=== PATIENT | male | born 1955 | race Caucasian/White ===

== ENCOUNTER 2018-02-13 14:29 | Inpatient (IN) | END 2018-02-17 13:16 | disposition left against medical advice (07) | DRG 871 ==

== ENCOUNTER 2018-02-17 23:08 | Inpatient (IN) | END 2018-03-20 21:45 | DRG 602 ==

== ENCOUNTER 2018-03-30 19:11 | Emergency (ER) | END 2018-03-30 23:19 | disposition home or self-care (01) ==

== ENCOUNTER 2018-04-09 09:47 | Inpatient (IN) | END 2018-04-17 19:00 | disposition left against medical advice (07) | DRG 432 ==

== ENCOUNTER 2018-04-24 14:53 | Inpatient (IN) | END 2018-05-03 11:40 | disposition left against medical advice (07) | DRG 871 ==

== ENCOUNTER → 2018-05-10 | Emergency (ER) | END | disposition home or self-care (01) ==

== ENCOUNTER 2018-05-12 04:05 | Inpatient (IN) | END 2018-05-27 17:40 | disposition left against medical advice (07) | DRG 853 ==

== ENCOUNTER 2018-06-02 17:20 | Inpatient (IN) | END 2018-06-26 21:55 | disposition home health service (06) | DRG 853 ==

== ENCOUNTER 2018-07-04 08:11 | Inpatient (IN) | END 2018-07-07 13:50 | disposition left against medical advice (07) | DRG 871 ==

== ENCOUNTER 2018-07-08 11:09 | Inpatient (IN) | END 2018-07-31 19:20 | DRG 871 ==

== ENCOUNTER 2018-08-16 06:04 | Emergency (ER) | END 2018-08-16 11:14 | disposition home or self-care (01) ==

== ENCOUNTER 2018-09-18 17:06 | Inpatient (IN) | END 2018-09-26 15:15 | DRG 629 ==

== ENCOUNTER 2019-01-05 14:17 | Inpatient (IN) | payer BC ==
[~2019-01-05] VITALS: Ht 177.8 cm; Wt 101.2 kg
[~2019-01-05 14:17] MED LIST: ADV25050 INHALATION; ALBU18HF INHALATION; ALLO100T64 PO; ATRO INHALATION; DOCU-159 PO; FER325 PO; FOLI-49 PO; FURO40TA4 PO; GABA100C14 PO; LEVO100T8 PO; METO-336 PO; OXYC10TA45 PO; PANT40TA3 PO; RIFA550T4 PO; SODI650T PO; SPIR50TA PO; TAMS-14 PO; THIA100T56 PO
--- NOTE | 2019-01-05 14:29 | ERD ---
ER Documentation Chief Complaint Chief Complaint sob x 3 days h/o chf HPI The patient is a 63-year-old male, presenting to the ER because of acute dyspnea for the last 5 days, worse today, complains of bilateral leg edema, orthopnea, PND. He had similar symptoms previously, denies fever, chills, neck pain, chest pain, abdominal pain, vomiting, dysuria. He smokes and drinks Past medical history: History of CHF, gout, hypertension, hypothyroidism, BPH, anemia, CAD, cirrhosis, COPD, anxiety Past surgical history: Bleeding ulcer ROS All systems reviewed and are negative except as per history of present illness. Medications Home Meds Active Scripts Docusate Sodium* (Docusate Sodium*) 100 Mg Capsule, 200 MG PO QHS, #60 CAP Prov:MILLICENT GOVEA 06/26/18 Reported Medications Allopurinol* (Zyloprim*) 100 Mg Tablet, 100 MG PO DAILY, TAB 09/18/18 Rifaximin* (Xifaxan*) 550 Mg Tablet, 550 MG PO BID, TAB 09/18/18 Thiamine* (Vitamin B-1*) 100 Mg Tablet, 100 MG PO DAILY, TAB 09/18/18 Metoprolol Succinate* (Toprol XL*) 100 Mg Tab.sr.24h, 100 MG PO DAILY, #30 TAB HOLD FOR SBP<110 OR HR<60 09/18/18 Sodium Bicarbonate* (Sodium Bicarbonate*) 650 Mg Tablet, 650 MG PO TID, TAB 09/18/18 Albuterol Sulfate* (Ventolin HFA*) 18 Gm Hfa.aer.ad, 2 PUFF INHALATION Q4H, #1 INHALER 09/18/18 Pantoprazole* (Protonix*) 40 Mg Tablet.dr, 40 MG PO DAILY, TAB 09/18/18 Oxycodone Hcl* (Oxycontin*) 10 Mg Tab.sr.12h, 10 MG PO Q6H, TAB 09/18/18 Gabapentin* (Gabapentin*) 100 Mg Capsule, 100 MG PO TID, #90 CAP 09/18/18 Levothyroxine Sodium* (Levothyroxine Sodium*) 100 Mcg Tablet, 200 MCG PO BEFORE BREAKFAST, #30 TAB 09/18/18 Ipratropium [place]* (Atrovent HFA*) 12.9 Gm Aer.w.adap, 1 VIAL INHALATION Q6H PRN for WHEEZING AND SOB, #1 INHALER 09/18/18 Furosemide* (Furosemide*) 40 Mg Tablet, 40 MG PO DAILY, TAB 09/18/18 Folic Acid* (Folic Acid*) 1 Mg Tablet, 1 MG PO DAILY, TAB 09/18/18 Tamsulosin Hcl* (Flomax*) 0.4 Mg Cap.er.24h, 0.4 MG PO DAILY, CAP 09/18/18 Ferrous Sulfate* (Ferrous Sulfate*) 325 Mg Tabec, 325 MG PO DAILY, TAB 09/18/18 Spironolactone* (Aldactone*) 50 Mg Tablet, 50 MG PO DAILY, #30 TAB HOLD FOR SBP<110 09/18/18 Salmeterol Xinaf/Fluticasone* (Advair*) 250-50 Diskus Inhaler, 1 INH INHALATION BID, #1 INHALER 09/18/18 Allergies Allergies: Coded Allergies: Penicillins (Unverified Allergy, Unknown, 01/05/19) PMhx/Soc Anesthesia Reaction: No Hx Neurological Disorder: No Hx Cardiac Disorders: No (HTN, CHF) Hx Psychiatric Problems: No Hx Miscellaneous Medical Probl: Yes (esld,ckd,esrd) Hx Alcohol Use: Yes Hx Substance Use: No Hx Tobacco Use: Yes Physical Exam Vitals Vital Signs Date Temp Pulse Resp B/P (MAP) Pulse Ox O2 O2 Flow FiO2 Time Delivery Rate 01/05/19 97.7 83 16 129/66 95 Nasal 3.0 18:50 (87) Cannula 01/05/19 83 17 126/60 95 Room Air 3.0 18:34 (82) Nasal Cannula 01/05/19 155 21 95 Nasal 2.0 14:59 Cannula 01/05/19 Nasal 2 14:25 Cannula 01/05/19 98.2 79 20 112/59 91 14:24 (76) Physical Exam Const: No acute distress. Head: Atraumatic. Eyes: Normal Conjunctiva. ENT: Normal External Ears, Nose and Mouth. Neck: Full range of motion. No meningismus. Resp: Tachypneic, bilateral expiratory wheezes, bibasilar crackle Cardio: Regular rate and rhythm. Abd: Soft, mild ascites, normal bowel sounds, non tender. Skin: No petechiae or rashes. Back: No midline or flank tenderness. Ext: Bilateral leg edema, no calf tenderness Neur: Awake and alert. No focal deficit Psych: Normal Mood and Affect. Result Diagram: 01/05/19 1500 01/05/19 1500 Results 24 hrs Laboratory Tests Test 01/05/19 15:00 White Blood Count 17.0 10^3/ul Red Blood Count 3.20 10^6/ul Hemoglobin 6.5 g/dl Hematocrit 23.3 % Mean Corpuscular Volume 72.8 fl Mean Corpuscular Hemoglobin 20.3 pg Mean Corpuscular Hemoglobin Concent 27.9 g/dl Red Cell Distribution Width 22.9 % Platelet Count 173 10^3/UL Mean Platelet Volume fl Immature Granulocytes % 1.900 % Neutrophils % % Segmented Neutrophils % (Manual) 77 % Band Neutrophils % (Manual) 4 % Lymphocytes % % Lymphocytes % (Manual) 7 % Monocytes % % Monocytes % (Manual) 9 % Eosinophils % % Eosinophils % (Manual) 1 % Basophils % % Basophils % (Manual) 2 % Nucleated Red Blood Cells % 0.4 /100WBC Immature Granulocytes # 0.330 10^3/ul Neutrophils # 10^3/ul Neutrophils # (Manual) 13.2 10^3/ul Band Neutrophils # 0.6 10^3/ul Lymphocytes (Manual) 1.1 10^3/ul Lymphocytes # 10^3/ul Monocytes # 10^3/ul Monocytes # (Manual) 1.5 10^3/ul Eosinophils # 10^3/ul Basophils # 10^3/ul Basophils # (Manual) 0.3 10^3/ul Nucleated Red Blood Cells # 10^3/ul Pathologist Review (Hematology) YES Platelet Estimate NORMAL Polychromasia 2+ Hypochromasia 2+ Poikilocytosis 2+ Anisocytosis 2+ Microcytosis 1+ Tear Drop Cells 1+ Ovalocytes 1+ Prothrombin Time 14.2 Sec Prothrombin Time Ratio 1.1 INR International Normalized Ratio 1.09 Activated Partial Thromboplast Time 36.0 Sec Sodium Level 125 mmol/L Potassium Level 4.7 mmol/L Chloride Level 95 mmol/L Carbon Dioxide Level 14 mmol/L Anion Gap 16 Blood Urea Nitrogen 54 mg/dl Creatinine 2.90 mg/dl Est Glomerular Filtrat Rate mL/min 22 mL/min Glucose Level 96 mg/dl Calcium Level 8.5 mg/dl Total Bilirubin 0.3 mg/dl Direct Bilirubin 0.00 mg/dl Indirect Bilirubin 0.3 mg/dl Aspartate Amino Transf (AST/SGOT) 29 IU/L Alanine Aminotransferase (ALT/SGPT) 15 IU/L Alkaline Phosphatase 110 IU/L Troponin I 0.015 ng/ml B-Type Natriuretic Peptide 9920 PG/ML Total Protein 7.8 g/dl Albumin 3.9 g/dl Globulin 3.90 g/dl Albumin/Globulin Ratio 1.00 Lipase 202 U/L Current Medications Medications Dose Sig/Trevor Start Time Status Last (Trade) Ordered Route PRN Stop Time Admin Dose Reason Admin 5 mg ONCE STAT 01/05/19 DC 01/05/19 Levalbuterol INH 14:47 01/05/19 14:59 (Xopenex 14:50 Neb) Ipratropium 1 mg ONCE STAT 01/05/19 DC 01/05/19 [place] INH 14:47 01/05/19 14:59 (Atrovent 14:50 0.02% (Neb)) 125 mg ONCE STAT 01/05/19 DC 01/05/19 Methylprednis IV 14:47 01/05/19 15:13 olone Sodium 14:50 Succinate (Solu-Medrol) Furosemide 40 mg ONCE ONCE 01/05/19 DC (Lasix) IV 17:00 01/05/19 17:01 Azithromycin 250 ml @ ONCE ONCE 01/05/19 DC 250 mls/hr IVPB 18:00 01/05/19 18:59 Aztreonam 50 ml @ ONCE ONCE 01/05/19 DC 100 mls/hr IVPB 18:00 01/05/19 18:29 Procedures/MDM [place] [id number] Radiology Main Line: [phone] DIAGNOSTIC IMAGING REPORT Patient: ELODIA MASCORRO : 1955 Age: 63 Sex: M MR #: [id number] DOS: 01/05/19 1447 Ordering MD: TONY MARQUEZ MD Location: E/R Room/Bed: PROCEDURE: XR Chest. CLINICAL INDICATION: Shortness of breath . TECHNIQUE: Single frontal chest x-ray. COMPARISON: DR CHEST 09/18/2018; DR CHEST 07/29/2018; CR CHEST 08/19/2015; CR CHEST 01/31/2015 FINDINGS: This cardiomegaly with increase hilar vascular congestion appears increased devyn hilar interstitial edema and a small right pleural effusion consistent with congestive heart failure. .. Degenerative disk changes of the spine are present. . The osseous structures are intact. IMPRESSION: Cardiomegaly with increase hilar vascular and interstitial congestion and small right pleural effusion.. RPTAT: [facility] .Luiz Messina MD, MD Date Time Electronically viewed and signed by .Luiz Messina MD, MD on 01/05/2019 15:37 .L/ CC: TONY MARQUEZ MD [phone] EKG: Read by emergency physician Rate/Rhythm: Normal Sinus Rhythm 84 beats per min QRS, ST, T-waves: No ST elevation, no T wave inversion, PVC Impression: Normal EKG MEDICAL MAKING DECISION: The patient is a 63-year-old male, presenting with acute CHF exacerbation, acute COPD exacerbation, suspected acute GI bleed. Treated with Xopenex 5 mg and Atrovent 1 mg continuous nebe over 1 hour and Solu-Medrol 125 mg IV and Rocephin IV and aztreonam IV for acute COPD exacerbation, 2unit of packed red blood cell for acute anemia, concerning for acute GI bleed, I have ordered for Lasix 40 mg IV after blood transfusion The differential diagnoses for acute dyspnea considered include but are not limited to asthma, COPD, pneumonia, pulmonary embolus, pleural effusion, congestive heart failure. The differential diagnoses for acute GI bleed considered include but are not limited to gastritis, peptic ulcer disease, esophageal varices, Eleonora-Patino tear, carcinoma, polyp, hemorrhoid, fissure, diverticulosis, angiodysplasia. Departure Diagnosis: Primary Impression: CHF (congestive heart failure) Additional Impressions: COPD exacerbation GI bleed Hyponatremia Condition: Stable Comments I discussed the findings with the patient. I discussed the patient with his MD Dr Foss at 5:10 pm who was made aware of the lab, the treatment, the patient condition. The patient is admitted to Tel Disclaimer: Inadvertent spelling and grammatical errors are likely due to EHR/dictation software use and do not reflect on the overall quality of patient care. Also, please note that the electronic time recorded on this note does not necessarily reflect the actual time of the patient encounter. TONY MARQUEZ MD Jan 05, 2019 14:29
[2019-01-05] MEDS ORDERED: METHYLPREDNISOLONE 125 MG INJ IV STA (14:47)
[2019-01-05] MEDS ORDERED: IPRATROPIUM (NEB) 0.5 MG/2.5 ML AMP INH STA (14:47)
[2019-01-05] MEDS ORDERED: LEVALBUTEROL (NEB) 1.25 MG/0.5 ML AMP INH STA (14:47)
[2019-01-05] MEDS ORDERED: FUROSEMIDE 40 MG INJ IV ONE (17:00)
[2019-01-05] MEDS ORDERED: AZITHROMYCIN 500MG/NS (PMX) 250 ML IVPB ONE (18:00)
[2019-01-05] MEDS ORDERED: AZTREONAM 1 GM/NS (PMX) 50 ML IVPB ONE (18:00)
[2019-01-05] MEDS ORDERED: LORAZEPAM 2 MG INJ IV ONE (22:30)
[2019-01-05 23:00] VITALS: Ht 177.8 cm; Wt 101.2 kg
[2019-01-05 23:03] VITALS: PULSE 90
[2019-01-06] VITALS (13 sets, daily range): BP systolic 121–149; BP diastolic 62–70; PULSE 84–98; RESP 19–23
[2019-01-06] MEDS ORDERED: ONDANSETRON 4 MG INJ IV PRN (00:30)
[2019-01-06] MEDS: PANTOPRAZOLE 40 MG INJ IV SCH ×2 (06:24→18:15)
[2019-01-06] MEDS: FUROSEMIDE 20 MG INJ IV SCH ×2 (06:24→18:15)
--- NOTE | 2019-01-06 11:51 | HP ---
Date/Time of Note Date/Time of Note DATE: 01/06/19 TIME: 11:27 Assessment/Plan VTE Prophylaxis Risk score (from [facility])>0 risk: 4 SCD applied (from [facility]): Yes Pharmacological prophylaxis: NA/contraindicated Pharm contraindication: liver dx, thrombocytopenia Lines/Catheters IV [facility] Type (from [facility] [place] Urinary Cath still in place: No Assessment/Plan Assessment/Plan -Acute anemia, status post blood transfusion. -Possible GI bleed, will obtain stool for OB. Dr. Mayes is asked to see patient in gastroenterology consultation. -Acute on chronic diastolic congestive heart failure CHF. Dr. Foley is asked to see patient in cardiology consultation. -COPD exacerbation, continue bronchodilators, steroids, and oxygen supplementation. -Hyponatremia -Alcoholic liver cirrhosis -Acute kidney injury on chronic kidney disease. Dr. Leung is asked to see janet ent in nephrology consultation. -Left foot ulcer. Dr. Hallman is following in podiatry consultation. Further recommendations based on clinical course. Plan of care discussed with Dr. Lara. Result Diagram: 01/06/1928 01/06/19 0628 Results 24hrs Laboratory Tests Test 01/05/19 15:00 01/06/19 06:28 01/06/19 07:44 White Blood Count 17.0 #H 11.0 #H Red Blood Count 3.20 L 3.67 L Hemoglobin 6.5 #*L 7.7 L Hematocrit 23.3 L 27.1 L Mean Corpuscular Volume 72.8 L 73.8 L Mean Corpuscular Hemoglobin 20.3 L 21.0 L Mean Corpuscular 27.9 L 28.4 L Hemoglobin Concent Red Cell Distribution Width 22.9 H 22.5 H Platelet Count 173 128 #L Mean Platelet Volume Immature Granulocytes % 1.900 H 2.400 H Neutrophils % 88.7 H Segmented Neutrophils % (Manual) 77 Band Neutrophils % (Manual) 4 Lymphocytes % 3.8 L Lymphocytes % (Manual) 7 L Monocytes % 4.6 Monocytes % (Manual) 9 Eosinophils % 0.1 Eosinophils % (Manual) 1 Basophils % 0.4 Basophils % (Manual) 2 Nucleated Red Blood Cells % 0.4 H 0.5 H Immature Granulocytes # 0.330 H 0.260 H Neutrophils # 9.8 H Neutrophils # (Manual) 13.2 H Band Neutrophils # 0.6 Lymphocytes (Manual) 1.1 Lymphocytes # 0.4 L Monocytes # 0.5 Monocytes # (Manual) 1.5 H Eosinophils # 0.0 Basophils # 0.0 Basophils # (Manual) 0.3 H Nucleated Red Blood Cells # 0.1 H Pathologist Review (Hematology) YES Platelet Estimate NORMAL Polychromasia 2+ Hypochromasia 2+ Poikilocytosis 2+ Anisocytosis 2+ Microcytosis 1+ Tear Drop Cells 1+ Ovalocytes 1+ Prothrombin Time 14.2 Prothrombin Time Ratio 1.1 INR International 1.09 Normalized Ratio Activated Partial Thromboplast 36.0 H Time Sodium Level 125 L 129 L Potassium Level 4.7 5.0 Chloride Level 95 L 95 L Carbon Dioxide Level 14 L 21 Anion Gap 16 H 13 Blood Urea Nitrogen 54 H 58 H Creatinine 2.90 H 2.46 H Est Glomerular Filtrat 22 L 27 L Rate mL/min Glucose Level 96 128 Calcium Level 8.5 8.5 Total Bilirubin 0.3 0.5 Direct Bilirubin 0.00 0.00 Indirect Bilirubin 0.3 0.5 Aspartate Amino Transf (AST/SGOT) 29 23 Alanine 15 14 Aminotransferase (ALT/SGPT) Alkaline Phosphatase 110 106 Troponin I 0.015 B-Type Natriuretic Peptide 9920 H Total Protein 7.8 7.4 Albumin 3.9 3.8 Globulin 3.90 H 3.60 H Albumin/Globulin Ratio 1.00 1.05 Lipase 202 Lab Scanned Report BLOOD TRANSFUSION HPI/ROS Admit Date/Time Admit Date/Time Jan 05, 2019 at 17:47 Hx of Present Illness The patient is a 63-year-old male known to me from previous admissions. Patient has extensive medical history including diastolic congestive heart failure, COPD, chronic kidney disease, alcoholic liver cirrhosis, history of bilateral lower extremity cellulitis and edema, history of left foot plantar ulcer underwent I&D in September 2018. Patient has a history of cholelithiasis, anxiety, BPH and hypothyroidism. The patient has a long history of tobacco and alcohol abuse. Patient presented to the emergency room with complaints of acute dyspnea for the last couple of days which got significantly worse last night, complains of bilateral lower extremities edema orthopnea. Patient denies any fever chills denies any chest pain denies nausea vomiting diarrhea. Hemoglobin was noted to have 6.5 worrisome for GI bleed, and patient get transfusion. PMH/Family/Social Past Medical History per HPI Medical History: congestive heart failure, hypertension Medications Current Medications Furosemide (Lasix) 20 mg BID DIURETICS IV Last administered on 01/06/19at 06:24; Admin Dose 20 MG; Start 01/06/19 at 06:00 Morphine Sulfate (morphine) 2 mg Q4H PRN IV SEVERE PAIN LEVEL 7-10; Start 01/06/19 at 00:30 Ondansetron HCl (Zofran Inj) 4 mg Q6H PRN IV NAUSEA AND/OR VOMITING; Start 01/06/19 at 00:30 Pantoprazole (Protonix Iv) 40 mg BID@06,18 IV Last administered on 01/06/19at 06:24; Admin Dose 40 MG; Start 01/06/19 at 06:00 Coded Allergies: Penicillins (Unverified Allergy, Unknown, 01/05/19) Past Surgical History Past Surgical Hx: other (s/p I&D of necrotic ulcer left foot in September 2018) Family History Significant Family History: hypertension Social History Alcohol Use: heavy Smoking Status: Current every day smoker Drug Use: none Exam/Review of Systems Vital Signs Vitals Vital Signs Date Temp Pulse Resp B/P (MAP) Pulse Ox O2 O2 Flow FiO2 Time Delivery Rate 01/06/19 92 08:01 01/06/19 98.2 19 141/64 93 07:28 (89) 01/06/19 Nasal 3.0 00:00 Cannula Intake and Output 01/05/19 01/05/19 01/06/19 1414:59 22:59 06:59 IntakeIntake Total 500 ml OutputOutput Total 1800 ml BalanceBalance -1300 ml Exam Constitutional: alert, oriented Head: normocephalic Neck: supple Respiratory: diminished breath sounds, wheezing Cardiovascular: regular rate and rhythm Gastrointestinal: soft, non-tender, bowel sounds, distended Musculoskeletal: nl extremities to inspection Extremities: normal pulses, edema, other Neurological: nl mental status Skin: other (Left plantar foot ulcer) MILLICENT GOVEA Jan 06, 2019 11:41
--- NOTE | 2019-01-06 16:01 | CONS ---
DATE OF ADMISSION: 01/05/2019 DATE OF CONSULTATION: 01/06/2019 REASON FOR CONSULTATION: Antibiotic management. HISTORY OF PRESENT ILLNESS: Yvon Milian is a 63-year-old male who presents to the emergency rosie with shortness of breath of 3 days' duration and is being seen for antibiotic management. The janet ent has had acute dyspnea for the last 5 days, worse on 01/05/2019, complaints of bilateral leg edema , orthopnea and PND. He had similar symptoms previously and has been hospitalized in the past. Past problems include: 1. Coronary artery disease with CHF. 2. Hypertension. 3. Gout. 4. Hypothyroidism. 5. BPH. 6. Anemia. 7. Cirrhosis. 8. COPD. 9. Anxiety. 10. History of bleeding ulcer. 11. ALLERGY TO PENICILLIN. The patient has end-stage liver disease. He has chronic renal disease and end-stage renal disease. On admission, his white count was 17,000 with 77 polys or neutrophils and 4 lymphocytes, H and H 6.5 and 23.3, platelet count 173,000, and 4 bands. BUN and creatinine 54/2.90, glucose of 96. The patie nt was started on aztreonam and azithromycin. Chest x-ray showed cardiomegaly with increased hilar v ascular and interstitial congestion and small right pleural effusion. The patient is currently being treated for what appears to be community-acquired pneumonia. PAST MEDICAL HISTORY: As outlined. FAMILY HISTORY: Noncontributory. SOCIAL HISTORY: He drinks alcohol and he smokes tobacco. Does not abuse drugs. ALLERGIES: PENICILLIN, NOT TO SULFA OR FOODS. PHYSICAL EXAMINATION: GENERAL: He is a well-developed, well-nourished elderly male, alert, responsive, in no acute distres s. VITAL SIGNS: Stable. He is afebrile. SKIN: Without generalized rash. HEENT: Within normal limits. NECK: Supple. LYMPH NODES: None palpable. CHEST: Decreased breath sounds at the bases. He is tachypneic. He has bilateral expiratory wheezes and rales. HEART: Without murmur or gallop. ABDOMEN: Soft, nontender, mild ascites, without organosplenomegaly or masses. EXTREMITIES: He has bilateral leg edema. No calf tenderness. RECTAL AND GENITAL: Deferred. NEUROLOGIC: No focal neurological abnormalities. IMPRESSION AND PLAN: The patient presents now with chronic obstructive pulmonary disease with exacer bation, either bronchitis or pneumonitis. He is started on azithromycin and Azactam. We will contin ue him on this current regimen. We will observe in terms of his white count and his temperature. I will dictate my findings to Dr. Lara. Dictated By: KRIS MARTINS MD, JD/NTS Conf#: [id number] DID#: [id number] CC: KOKO LARA MD;*EndCC*
--- NOTE | 2019-01-06 16:09 | CONS ---
Assessment/Plan Assessment/Plan Assessment/Plan (Daily) 1. acute on chronic renal failure due to Type II hepatorenal syndrome + prerenal azotemia 2. Hyponatremia due to Liver cirrhosis 3. Severe Anemia with Hb 6.5 on admission s/p PRBC 4. Acidosis due to TRENT on CKD 5. Decompensated Liver cirrhosis with Symptomatic ascites 6. H/O HTN 7. h/o Liver cirrhosis with ascites 8. H/o Diastolic CHF Plan: Seen on Tele floor, BP has been stable, continue spironolactone, will give IV albumin 25% 100ml Q 8 hr x 3 doses US guided paracentesis in AM , no need to send fluid studies spironolactone will assess for PO lasix after paracentesis Thanks for consultation, I will continue to follow up Consultation Date/Type/Reason Admit Date/Time Jan 05, 2019 at 17:47 Date of Consultation: Jan 06, 2019 Type of Consult NEPHROLOGY Reason for Consultation Hyponatremia, acute on chronic renal failure Requesting Provider: KOKO MARLOW MD Date/Time of Note DATE: 01/06/19 TIME: 16:08 Hx of Present Illness 63-year-old male with PMhx of diastolic congestive heart failure, COPD, chronic kidney disease, alcoholic liver cirrhosis, history of bilateral lower extremity cellulitis and edema, history of left foot plantar ulcer underwent I&D in September 2018. Patient has a history of cholelithiasis, anxiety, BPH and hypothyroidism. Patient presented to the emergency room with complaints of acute dyspnea for the last couple of days which got significantly worse last night, co mplains of bilateral lower extremities edema orthopnea. Patient denies any fever chills denies any chest pain denies nausea vomiting diarrhea. Hemoglobin was noted to have 6.5 worrisome for GI bleed, and patient get transfusion. On chemistry he was noted to have BUN/Cr 54/2.9, Na 125, HCo3 14- Renal has been consutled for acute on chronic renal failure, Hyponatremia, acidosis. Constitutional: no complaints Eyes: no complaints ENT: no complaints Respiratory: pleuritic pain, shortness of breath Cardiovascular: no complaints Gastrointestinal: no complaints Genitourinary: no complaints Musculoskeletal: no complaints Skin: no complaints Neurologic: no complaints Endocrine: no complaints Lymphatic: no complaints Psychological: no complaints Immunologic: no complaints Past Medical History Medical History: high cholesterol, hypertension, renal disease, other (Liver cirrhosis, Diastolic CHF , H/o dialysis about a year before ) Home Meds Active Scripts Docusate Sodium* (Docusate Sodium*) 100 Mg Capsule, 200 MG PO QHS, #60 CAP Prov:MILLICENT GOVEA 06/26/18 Reported Medications Allopurinol* (Zyloprim*) 100 Mg Tablet, 100 MG PO DAILY, TAB 09/18/18 Rifaximin* (Xifaxan*) 550 Mg Tablet, 550 MG PO BID, TAB 09/18/18 Thiamine* (Vitamin B-1*) 100 Mg Tablet, 100 MG PO DAILY, TAB 09/18/18 Metoprolol Succinate* (Toprol XL*) 100 Mg Tab.sr.24h, 100 MG PO DAILY, #30 TAB HOLD FOR SBP<110 OR HR<60 09/18/18 Sodium Bicarbonate* (Sodium Bicarbonate*) 650 Mg Tablet, 650 MG PO TID, TAB 09/18/18 Albuterol Sulfate* (Ventolin HFA*) 18 Gm Hfa.aer.ad, 2 PUFF INHALATION Q4H, #1 INHALER 09/18/18 Pantoprazole* (Protonix*) 40 Mg Tablet.dr, 40 MG PO DAILY, TAB 09/18/18 Oxycodone Hcl* (Oxycontin*) 10 Mg Tab.sr.12h, 10 MG PO Q6H, TAB 09/18/18 Gabapentin* (Gabapentin*) 100 Mg Capsule, 100 MG PO TID, #90 CAP 09/18/18 Levothyroxine Sodium* (Levothyroxine Sodium*) 100 Mcg Tablet, 200 MCG PO BEFORE BREAKFAST, #30 TAB 09/18/18 Ipratropium Marcella* (Atrovent HFA*) 12.9 Gm Aer.w.adap, 1 VIAL INHALATION Q6H PRN for WHEEZING AND SOB, #1 INHALER 09/18/18 Furosemide* (Furosemide*) 40 Mg Tablet, 40 MG PO DAILY, TAB 09/18/18 Folic Acid* (Folic Acid*) 1 Mg Tablet, 1 MG PO DAILY, TAB 09/18/18 Tamsulosin Hcl* (Flomax*) 0.4 Mg Cap.er.24h, 0.4 MG PO DAILY, CAP 09/18/18 Ferrous Sulfate* (Ferrous Sulfate*) 325 Mg Tabec, 325 MG PO DAILY, TAB 09/18/18 Spironolactone* (Aldactone*) 50 Mg Tablet, 50 MG PO DAILY, #30 TAB HOLD FOR SBP<110 09/18/18 Salmeterol Xinaf/Fluticasone* (Advair*) 250-50 Diskus Inhaler, 1 INH INHALATION BID, #1 INHALER 09/18/18 Medications Current Medications Furosemide (Lasix) 20 mg BID DIURETICS IV Last administered on 01/06/19at 06:24; Admin Dose 20 MG; Start 01/06/19 at 06:00 Morphine Sulfate (morphine) 2 mg Q4H PRN IV SEVERE PAIN LEVEL 7-10; Start 01/06/19 at 00:30 Ondansetron HCl (Zofran Inj) 4 mg Q6H PRN IV NAUSEA AND/OR VOMITING; Start 01/06/19 at 00:30 Pantoprazole (Protonix Iv) 40 mg BID@18 IV Last administered on 01/06/19at 06:24; Admin Dose 40 MG; Start 01/06/19 at 06:00 Allopurinol (Zyloprim) 100 mg DAILY PO ; Start 01/07/19 at 09:00 Docusate Sodium (Colace) 200 mg QHS PO ; Start 01/06/19 at 21:00 Ferrous Sulfate (Ferrous Sulfate (Ec)) 325 mg DAILY PO ; Start 01/07/19 at 09:00 Folic Acid (Folic Acid) 1 mg DAILY PO ; Start 01/07/19 at 09:00 Gabapentin (Neurontin) 100 mg TID PO ; Start 01/06/19 at 21:00 Levothyroxine Sodium (Synthroid) 200 mcg BEFORE BREAKFAST PO ; Start 01/07/19 at 07:00 Metoprolol Succinate (Toprol Xl) 100 mg DAILY PO ; Start 01/07/19 at 09:00 Spironolactone (Aldactone) 50 mg DAILY PO ; Start 01/07/19 at 09:00 Tamsulosin HCl (Flomax) 0.4 mg DAILY PO ; Start 01/07/19 at 09:00 Miscellaneous Information 1 inh BID INHALATION ; Start 01/06/19 at 21:00; Status UNV Albuterol/ Ipratropium (Duoneb) 3 ml Q6H RESP THERAPY N ; Start 01/06/19 at 20:00 Albuterol/ Ipratropium (Duoneb) 3 ml Q4H RESP THERAPY PRN HHN SHORTNESS OF BREATH; Start 01/06/19 at 16:30 Allergies: Coded Allergies: Penicillins (Unverified Allergy, Unknown, 01/05/19) Past Surgical History Past Surgical Hx: other (s/p I&D of necrotic ulcer left foot in September 2018, multiple paracentesis, h/o AVF suregry before ) Family History Significant Family History: no pertinent family hx Social History Alcohol Use: none Smoking Status: Current every day smoker Drug Use: none Exam/Review of Systems Exam Vitals Vital Signs Date Temp Pulse Resp B/P (MAP) Pulse Ox O2 O2 Flow FiO2 Time Delivery Rate 01/06/19 98.2 92 23 147/67 95 15:06 (93) 01/06/19 Nasal 3.0 14:35 Cannula Intake and Output 01/05/19 01/05/19 01/06/19 1515:00 23:00 07:00 IntakeIntake Total 500 ml OutputOutput Total 1800 ml BalanceBalance -1300 ml Constitutional: distress Psych: no complaints Head: normocephalic Eyes: nl conjunctiva ENMT: nl external ears & nose Neck: supple, non-tender Respiratory: clear to auscultation, congested cough, diminished breath sounds Cardiovascular: regular rate and rhythm, nl pulses Gastrointestinal: soft, non-tender, ascites, distended Musculoskeletal: joint tenderness, muscle weakness, swelling Extremities: normal pulses Neurological: DIRECTOR OF TEACHING AND LEARNING II-XII intact, nl mental status, nl speech, nl strength Lymph: nl lymph nodes Results Result Diagram: 01/06/1962701/06/19627 Results 24hrs Laboratory Tests Test 01/06/19 06:28 01/06/19 07:44 White Blood Count 11.0 #H Red Blood Count 3.67 L Hemoglobin 7.7 L Hematocrit 27.1 L Mean Corpuscular Volume 73.8 L Mean Corpuscular Hemoglobin 21.0 L Mean Corpuscular Hemoglobin Concent 28.4 L Red Cell Distribution Width 22.5 H Platelet Count 128 #L Mean Platelet Volume Immature Granulocytes % 2.400 H Neutrophils % 88.7 H Lymphocytes % 3.8 L Monocytes % 4.6 Eosinophils % 0.1 Basophils % 0.4 Nucleated Red Blood Cells % 0.5 H Immature Granulocytes # 0.260 H Neutrophils # 9.8 H Lymphocytes # 0.4 L Monocytes # 0.5 Eosinophils # 0.0 Basophils # 0.0 Nucleated Red Blood Cells # 0.1 H Sodium Level 129 L Potassium Level 5.0 Chloride Level 95 L Carbon Dioxide Level 21 Anion Gap 13 Blood Urea Nitrogen 58 H Creatinine 2.46 H Est Glomerular Filtrat Rate mL/min 27 L Glucose Level 128 Calcium Level 8.5 Total Bilirubin 0.5 Direct Bilirubin 0.00 Indirect Bilirubin 0.5 Aspartate Amino Transf (AST/SGOT) 23 Alanine Aminotransferase (ALT/SGPT) 14 Alkaline Phosphatase 106 Total Protein 7.4 Albumin 3.8 Globulin 3.60 H Albumin/Globulin Ratio 1.05 Lab Scanned Report BLOOD TRANSFUSION Medications Medication Current Medications Furosemide (Lasix) 20 mg BID DIURETICS IV Last administered on 01/06/19at 06:24; Admin Dose 20 MG; Start 01/06/19 at 06:00 Morphine Sulfate (morphine) 2 mg Q4H PRN IV SEVERE PAIN LEVEL 7-10; Start 01/06/19 at 00:30 Ondansetron HCl (Zofran Inj) 4 mg Q6H PRN IV NAUSEA AND/OR VOMITING; Start 01/06/19 at 00:30 Pantoprazole (Protonix Iv) 40 mg BID@,18 IV Last administered on 01/06/19at 06:24; Admin Dose 40 MG; Start 01/06/19 at 06:00 Allopurinol (Zyloprim) 100 mg DAILY PO ; Start 01/07/19 at 09:00 Docusate Sodium (Colace) 200 mg QHS PO ; Start 01/06/19 at 21:00 Ferrous Sulfate (Ferrous Sulfate (Ec)) 325 mg DAILY PO ; Start 01/07/19 at 09:00 Folic Acid (Folic Acid) 1 mg DAILY PO ; Start 01/07/19 at 09:00 Gabapentin (Neurontin) 100 mg TID PO ; Start 01/06/19 at 21:00 Levothyroxine Sodium (Synthroid) 200 mcg BEFORE BREAKFAST PO ; Start 01/07/19 at 07:00 Metoprolol Succinate (Toprol Xl) 100 mg DAILY PO ; Start 01/07/19 at 09:00 Spironolactone (Aldactone) 50 mg DAILY PO ; Start 01/07/19 at 09:00 Tamsulosin HCl (Flomax) 0.4 mg DAILY PO ; Start 01/07/19 at 09:00 Miscellaneous Information 1 inh BID INHALATION ; Start 01/06/19 at 21:00; Status UNV Albuterol/ Ipratropium (Duoneb) 3 ml Q6H RESP THERAPY HHN ; Start 01/06/19 at 20:00 Albuterol/ Ipratropium (Duoneb) 3 ml Q4H RESP THERAPY PRN HHN SHORTNESS OF BREATH; Start 01/06/19 at 16:30 ELADIO DELGADO MD Jan 06, 2019 16:08
[2019-01-06] MEDS ORDERED: ALBUTEROL/IPRATROPIUM (NEB) 3 ML AMP HHN PRN (16:30)
--- NOTE | 2019-01-06 18:12 | CONS ---
DATE OF ADMISSION: 01/05/2019 DATE OF CONSULTATION: TYPE OF CONSULTATION: Gastroenterology. From John Mayes MD, to Koko Marlow MD. HISTORY OF PRESENT ILLNESS: The patient is a 63-year-old male with history of cirrhosis of liver, CO PD, chronic liver disease, nicotine addiction, bilateral cellulitis of the lower extremities, choleli thiasis, anxiety, BPH, hypothyroidism, comes to the emergency room with shortness of breath. This villegas s been going on for the last few days. No cough, no fever, no abdominal pain, no chest pain. The pa tient denies of any GI bleeding. In the ER, he was found to have hemoglobin of 6.5, microcytic hypoc hromic picture. He was given blood transfusion. GI consult was called in for anemia. MEDICATIONS: All reviewed. He is on: 1. Lasix. 2. Morphine. 3. Zofran. 4. Pantoprazole. ALLERGIES: PENICILLIN. PAST SURGICAL HISTORY: I and D for necrotic ulcer of left foot. SOCIAL HISTORY: Heavy alcohol use, everyday smoker. REVIEW OF SYSTEMS: Negative. PHYSICAL EXAMINATION GENERAL: Well-built, nourished, not in distress. VITAL SIGNS: Stable. HEENT: Unremarkable. NECK: Supple. No thyromegaly, no lymphadenopathy. CARDIOVASCULAR: No murmur, gallop or click. LUNGS: Clear. ABDOMEN: Benign. EXTREMITIES: Good pedal edema. CENTRAL NERVOUS SYSTEM: Grossly within normal limits. LABORATORY DATA: BNP is 9920, elevated. Creatinine is 2.46, BUN is 58. INR is normal. Liver funct ion tests normal. Hemoglobin 6.5. He has got microcytic hypochromic picture. Platelet count is nor mal. IMPRESSION: 1. Microcytic hypochromic anemia, most probably related to iron deficiency. 2. 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 3. Nicotine addiction. 4. Congestive heart failure. 5. Chronic obstructive pulmonary disease. 6. Renal failure. PLAN: Work him up for anemia, ferritin level, B12, iron saturation, stool for occult blood and also retic count. Continue with PPI. Monitor H and H and transfuse on a need basis. Stabilize his medic al condition and once is stable, we will proceed with EGD and colonoscopy. Also, the patient should be on a banana bag. Dictated By: JOHN TEJEDA/NTS Conf#: [id number] DID#: [id number] CC: KOKO MARLOW MD;*[facility]*
[2019-01-06] MEDS: ALBUTEROL/IPRATROPIUM (NEB) 3 ML AMP HHN SCH (20:20)
[2019-01-06] MEDS ORDERED: NON-FORMULARY/PATIENT OWN MED (Salmeterol Xinaf/Fluticasone* (Advair*) 1 INH) INHALATION SCH (21:00)
[2019-01-06] MEDS: LORAZEPAM 0.5 MG TAB PO PRN (21:23)
[2019-01-06] MEDS: GABAPENTIN 100 MG CAP PO SCH (21:23)
[2019-01-06] MEDS: DOCUSATE SODIUM 100 MG CAP PO SCH (21:23)
[2019-01-06] MEDS: morphine 2 MG INJ IV PRN (21:52)
[2019-01-06] MEDS: ALBUMIN HUMAN 25% 100 ML IV SCH (23:49)
[2019-01-07] VITALS (11 sets, daily range): BP systolic 126–151; BP diastolic 60–68; PULSE 78–100; RESP 18–22
[2019-01-07] MEDS: ALBUTEROL/IPRATROPIUM (NEB) 3 ML AMP HHN SCH ×4 (01:52→20:29)
[2019-01-07] MEDS: morphine 2 MG INJ IV PRN ×4 (02:35→22:23)
[2019-01-07] MEDS: LORAZEPAM 0.5 MG TAB PO PRN ×2 (04:40→17:34)
[2019-01-07] MEDS: FUROSEMIDE 20 MG INJ IV SCH ×2 (06:43→17:34)
[2019-01-07] MEDS: PANTOPRAZOLE 40 MG INJ IV SCH ×2 (06:43→17:34)
[2019-01-07] MEDS: ALBUMIN HUMAN 25% 100 ML IV SCH ×2 (06:44→15:21)
[2019-01-07] MEDS: LEVOTHYROXINE 100 MCG TAB PO SCH (06:48)
--- NOTE | 2019-01-07 08:47 | CONS ---
Assessment/Plan Assessment/Plan Assessment/Plan (Daily) 1. acute on chronic renal failure due to Type II hepatorenal syndrome + prerenal azotemia 2. Hyponatremia due to Liver cirrhosis 3. Severe Anemia with Hb 6.5 on admission s/p PRBC 4. Acidosis due to TRENT on CKD 5. Decompensated Liver cirrhosis with Symptomatic ascites 6. H/O HTN 7. h/o Liver cirrhosis with ascites 8. H/o Diastolic CHF Plan: Continue spironolactone, getting IV albumin 25% 100ml Q 8 hr x 3 doses US guided Paracentesis attempted , not enough fluid to remove will plan for lasix tomorrow 20mg pO BID will follow up Consultation Date/Type/Reason Admit Date/Time Jan 05, 2019 at 17:47 Initial Consult Date 01/06/19 Type of Consult NEPHROLOGY Requesting Provider: KOKO MARLOW MD Date/Time of Note DATE: 01/07/19 TIME: 08:47 Exam/Review of Systems Exam Vitals Vital Signs Date Temp Pulse Resp B/P (MAP) Pulse Ox O2 O2 Flow FiO2 Time Delivery Rate 01/07/19 85 08:18 01/07/19 98.0 18 139/60 97 Room Air 07:37 (86) 01/07/19 2.0 04:00 Intake and Output 01/06/19 01/06/19 01/07/19 1515:00 23:00 07:00 IntakeIntake Total 1000 ml OutputOutput Total 800 ml 2100 ml BalanceBalance -800 ml -1100 ml Exam Constitutional: alert, awake, no acute distress Respiratory: clear to auscultation, congested cough, diminished breath sounds Cardiovascular: regular rate and rhythm, nl pulses Gastrointestinal: soft, non-tender, ascites, distended Musculoskeletal: joint tenderness, muscle weakness, swelling Extremities: normal pulses Neurological: CRACKER SPRAYER II-XII intact, nl mental status, nl speech, nl strength Lymph: nl lymph nodes Results Result Diagram: 01/06/1962701/06/19627 Medications Medication Current Medications Furosemide (Lasix) 20 mg BID DIURETICS IV Last administered on 01/07/19at 06:43; Admin Dose 20 MG; Start 01/06/19 at 06:00 Morphine Sulfate (morphine) 2 mg Q4H PRN IV SEVERE PAIN LEVEL 7-10 Last administered on 01/07/19at 07:41; Admin Dose 2 MG; Start 01/06/19 at 00:30 Ondansetron HCl (Zofran Inj) 4 mg Q6H PRN IV NAUSEA AND/OR VOMITING; Start 01/06/19 at 00:30 Pantoprazole (Protonix Iv) 40 mg BID@06,18 IV Last administered on 01/07/19at 06:43; Admin Dose 40 MG; Start 01/06/19 at 06:00 Allopurinol (Zyloprim) 100 mg DAILY PO ; Start 01/07/19 at 09:00 Docusate Sodium (Colace) 200 mg QHS PO Last administered on 01/06/19at 21:23; Admin Dose 200 MG; Start 01/06/19 at 21:00 Ferrous Sulfate (Ferrous Sulfate (Ec)) 325 mg DAILY PO ; Start 01/07/19 at 09:00 Folic Acid (Folic Acid) 1 mg DAILY PO ; Start 01/07/19 at 09:00 Gabapentin (Neurontin) 100 mg TID PO Last administered on 01/06/19at 21:23; Admin Dose 100 MG; Start 01/06/19 at 21:00 Levothyroxine Sodium (Synthroid) 200 mcg BEFORE BREAKFAST PO Last administered on 01/07/19at 06:48; Admin Dose 200 MCG; Start 01/07/19 at 07:00 Metoprolol Succinate (Toprol Xl) 100 mg DAILY PO ; Start 01/07/19 at 09:00 Spironolactone (Aldactone) 50 mg DAILY PO ; Start 01/07/19 at 09:00 Tamsulosin HCl (Flomax) 0.4 mg DAILY PO ; Start 01/07/19 at 09:00 Miscellaneous Information 1 inh BID INHALATION ; Start 01/06/19 at 21:00; Status UNV Albuterol/ Ipratropium (Duoneb) 3 ml Q6H RESP THERAPY HHN Last administered on 01/07/19at 01:52; Admin Dose 3 ML; Start 01/06/19 at 20:00 Albuterol/ Ipratropium (Duoneb) 3 ml Q4H RESP THERAPY PRN HHN SHORTNESS OF BREATH; Start 01/06/19 at 16:30 Lorazepam (Ativan) 0.5 mg Q6H PRN PO ANXIETY Last administered on 01/07/19at 04:40; Admin Dose 0.5 MG; Start 01/06/19 at 21:00 Albumin Human 100 ml @ 100 mls/hr Q8H IV Last administered on 01/07/19at 06:44; Admin Dose 100 MLS/HR; Start 01/06/19 at 22:00; Stop 01/07/19 at 14:59 ELADIO DELGADO MD Jan 07, 2019 08:47
[2019-01-07] MEDS: SPIRONOLACTONE 50 MG TAB PO SCH ×2 (09:00→09:35)
[2019-01-07] MEDS: METOPROLOL (XL) 100 MG TAB PO SCH ×2 (09:00→09:34)
[2019-01-07] MEDS: GABAPENTIN 100 MG CAP PO SCH ×4 (09:00→22:21)
[2019-01-07] MEDS: ALLOPURINOL 100 MG TAB PO SCH ×2 (09:00→09:35)
[2019-01-07] MEDS: FERROUS SULFATE (EC) 325 MG TAB PO SCH ×2 (09:00→09:35)
[2019-01-07] MEDS: FOLIC ACID 1 MG TAB PO SCH ×2 (09:00→09:35)
[2019-01-07] MEDS: TAMSULOSIN (SR) 0.4 MG CAP PO SCH ×2 (09:00→09:34)
[2019-01-07] MEDS: AZITHROMYCIN 250 MG TAB PO SCH (12:21)
--- NOTE | 2019-01-07 14:44 | CONS ---
Assessment/Plan Assessment/Plan Hospital Course (Demo Recall) No acute changes patient is lying comfortably in bed she is sleeping no fevers overnight. WBC today went down to 11 H&H 7.7 and 27.1 platelets 128 neutrophils 88.7 BUN 58 creatinine 2.46 Antimicrobials: Zithromax, status post Rocephin Chest x-ray on admission revealed cardiomegaly with increased hilar vascular and interstitial congestion and small right pleural effusion. Abdominal ultrasound revealed no free fluid in the abdomen Physical examination: This is a wasted well-developed chronically ill-appearing elderly man who is in no distress. Head atraumatic normocephalic sclera non icteric. Neck is supple chest rise symmetrical breath sounds diminished bases. Heart: S1-S2. Abdomen soft bowel sounds present. Extremities without cyanosis. Assessment: 1. Systemic inflammatory response syndrome with resolving leukocytosis 2. Possible COPD exacerbation 3. Alcohol abuse 4. Bilateral lower extremities chronic venous stasis 5. Cirrhosis with recurrent ascites 6. Chronic kidney disease 7. CHF Plan: Remains stable continue present care, follow GI and renal recommendations Consultation Date/Type/Reason Admit Date/Time Jan 05, 2019 at 17:47 Initial Consult Date 01/06/19 Type of Consult id Requesting Provider: KOKO MARLOW MD Date/Time of Note DATE: 01/07/19 TIME: 14:44 Exam/Review of Systems Exam Vitals Vital Signs Date Temp Pulse Resp B/P (MAP) Pulse Ox O2 O2 Flow FiO2 Time Delivery Rate 01/07/19 98 16 97 Nasal 3.0 14:29 Cannula 01/07/19 98.0 151/68 11:06 (95) Intake and Output 01/06/19 01/06/19 01/07/19 1414:59 22:59 06:59 IntakeIntake Total 1000 ml 900 ml OutputOutput Total 800 ml 2100 ml 1300 ml BalanceBalance -800 ml -1100 ml -400 ml Results Result Diagram: 01/06/1962701/06/19627 Medications Medication Current Medications Furosemide (Lasix) 20 mg BID DIURETICS IV Last administered on 01/07/19at 06:43; Admin Dose 20 MG; Start 01/06/19 at 06:00 Morphine Sulfate (morphine) 2 mg Q4H PRN IV SEVERE PAIN LEVEL 7-10 Last administered on 01/07/19at 07:41; Admin Dose 2 MG; Start 01/06/19 at 00:30 Ondansetron HCl (Zofran Inj) 4 mg Q6H PRN IV NAUSEA AND/OR VOMITING; Start 01/06/19 at 00:30 Pantoprazole (Protonix Iv) 40 mg BID@06,18 IV Last administered on 01/07/19at 06:43; Admin Dose 40 MG; Start 01/06/19 at 06:00 Allopurinol (Zyloprim) 100 mg DAILY PO ; Start 01/07/19 at 09:00 Docusate Sodium (Colace) 200 mg QHS PO Last administered on 01/06/19at 21:23; Admin Dose 200 MG; Start 01/06/19 at 21:00 Ferrous Sulfate (Ferrous Sulfate (Ec)) 325 mg DAILY PO ; Start 01/07/19 at 09:00 Folic Acid (Folic Acid) 1 mg DAILY PO ; Start 01/07/19 at 09:00 Gabapentin (Neurontin) 100 mg TID PO Last administered on 01/07/19at 12:21; Admin Dose 100 MG; Start 01/06/19 at 21:00 Levothyroxine Sodium (Synthroid) 200 mcg BEFORE BREAKFAST PO Last administered on 01/07/19at 06:48; Admin Dose 200 MCG; Start 01/07/19 at 07:00 Metoprolol Succinate (Toprol Xl) 100 mg DAILY PO ; Start 01/07/19 at 09:00 Spironolactone (Aldactone) 50 mg DAILY PO ; Start 01/07/19 at 09:00 Tamsulosin HCl (Flomax) 0.4 mg DAILY PO ; Start 01/07/19 at 09:00 Miscellaneous Information 1 inh BID INHALATION ; Start 01/06/19 at 21:00; Status UNV Albuterol/ Ipratropium (Duoneb) 3 ml Q6H RESP THERAPY HHN Last administered on 01/07/19at 14:29; Admin Dose 3 ML; Start 01/06/19 at 20:00 Albuterol/ Ipratropium (Duoneb) 3 ml Q4H RESP THERAPY PRN HHN SHORTNESS OF BREATH; Start 01/06/19 at 16:30 Lorazepam (Ativan) 0.5 mg Q6H PRN PO ANXIETY Last administered on 01/07/19at 04:40; Admin Dose 0.5 MG; Start 01/06/19 at 21:00 Albumin Human 100 ml @ 100 mls/hr Q8H IV Last administered on 01/07/19at 06:44; Admin Dose 100 MLS/HR; Start 01/06/19 at 22:00; Stop 01/07/19 at 14:59 Azithromycin (Zithromax) 250 mg DAILY PO Last administered on 01/07/19at 12:21; Admin Dose 250 MG; Start 01/07/19 at 12:00 MELISSA NASH MOBILE MECHANIC Jan 07, 2019 14:44
--- NOTE | 2019-01-07 16:28 | PN ---
Date/Time of Note Date/Time of Note DATE: 01/07/19 TIME: 16:20 Assessment/Plan VTE Prophylaxis Risk score (from [facility])>0 risk: 5 SCD applied (from [facility]): Yes SCD contraindicated: patient refusal Pharmacological prophylaxis: NA/contraindicated Pharm contraindication: liver dx, thrombocytopenia Lines/Catheters IV [facility]ter Type (from [facility] Saline Lock Urinary Cath still in place: No Assessment/Plan Hospital Course Patient is complains of generalized pain, remains hemodynamically stable, hemoglobin is 7.3 after 2 units of packed red blood transfusion. Assessment/Plan -Acute anemia, status post blood transfusion. -Possible GI bleed, will obtain stool for OB. Dr. Mayes is following in gastroenterology consultation. -Acute on chronic diastolic congestive heart failure. Dr. Foley is following in cardiology consultation. -COPD exacerbation, continue bronchodilators, steroids, and oxygen supplementation. -Hyponatremia -Alcoholic liver cirrhosis -Acute kidney injury on chronic kidney disease. Dr. Leung is following in nephrology consultation. -Left foot ulcer. Dr. Hallman is following in podiatry consultation. Further recommendations based on clinical course. Plan of care discussed with Dr. Lara. Result Diagram: 01/07/19 1507 01/07/19 1507 Results 24hrs Laboratory Tests Test 01/07/19 15:07 White Blood Count 10.5 Red Blood Count 3.47 L Hemoglobin 7.3 L Hematocrit 26.2 L Mean Corpuscular Volume 75.5 L Mean Corpuscular Hemoglobin 21.0 L Mean Corpuscular Hemoglobin Concent 27.9 L Red Cell Distribution Width 22.9 H Platelet Count 115 L Mean Platelet Volume Immature Granulocytes % 1.300 H Neutrophils % Lymphocytes % Monocytes % Eosinophils % Basophils % Nucleated Red Blood Cells % 0.3 H Immature Granulocytes # 0.140 H Neutrophils # Lymphocytes # Monocytes # Eosinophils # Basophils # Nucleated Red Blood Cells # Absolute Reticulocyte Count 0.167 H Percent Reticulocyte Count 4.8 H Sodium Level 136 Potassium Level 4.2 Chloride Level 99 Carbon Dioxide Level 26 Anion Gap 11 Blood Urea Nitrogen 72 H Creatinine 2.21 H Est Glomerular Filtrat Rate mL/min 30 L Glucose Level 103 Calcium Level 8.4 Total Bilirubin 0.4 Direct Bilirubin 0.00 Indirect Bilirubin 0.4 Aspartate Amino Transf (AST/SGOT) 22 Alanine Aminotransferase (ALT/SGPT) 21 Alkaline Phosphatase 95 Total Protein 7.0 Albumin 3.9 Globulin 3.10 Albumin/Globulin Ratio 1.25 Thyroid Stimulating Hormone (TSH) Pending Exam/Review of Systems Exam Vitals Vital Signs Date Temp Pulse Resp B/P (MAP) Pulse Ox O2 O2 Flow FiO2 Time Delivery Rate 01/07/19 98.0 78 18 141/66 99 Nasal 15:13 (91) Cannula 01/07/19 3.0 14:29 Intake and Output 01/06/19 01/06/19 01/07/19 1515:00 23:00 07:00 IntakeIntake Total 1000 ml 900 ml OutputOutput Total 800 ml 2100 ml 1300 ml BalanceBalance -800 ml -1100 ml -400 ml Exam Constitutional: alert, oriented Respiratory: diminished breath sounds, wheezing Cardiovascular: regular rate and rhythm Gastrointestinal: soft, non-tender, bowel sounds, distended Musculoskeletal: nl extremities to inspection Extremities: normal pulses, edema, other Neurological: nl mental status Skin: other (Left plantar foot ulcer) Results Results 24hrs Laboratory Tests Test 01/07/19 15:07 White Blood Count 10.5 Red Blood Count 3.47 L Hemoglobin 7.3 L Hematocrit 26.2 L Mean Corpuscular Volume 75.5 L Mean Corpuscular Hemoglobin 21.0 L Mean Corpuscular Hemoglobin Concent 27.9 L Red Cell Distribution Width 22.9 H Platelet Count 115 L Mean Platelet Volume Immature Granulocytes % 1.300 H Neutrophils % Lymphocytes % Monocytes % Eosinophils % Basophils % Nucleated Red Blood Cells % 0.3 H Immature Granulocytes # 0.140 H Neutrophils # Lymphocytes # Monocytes # Eosinophils # Basophils # Nucleated Red Blood Cells # Absolute Reticulocyte Count 0.167 H Percent Reticulocyte Count 4.8 H Sodium Level 136 Potassium Level 4.2 Chloride Level 99 Carbon Dioxide Level 26 Anion Gap 11 Blood Urea Nitrogen 72 H Creatinine 2.21 H Est Glomerular Filtrat Rate mL/min 30 L Glucose Level 103 Calcium Level 8.4 Total Bilirubin 0.4 Direct Bilirubin 0.00 Indirect Bilirubin 0.4 Aspartate Amino Transf (AST/SGOT) 22 Alanine Aminotransferase (ALT/SGPT) 21 Alkaline Phosphatase 95 Total Protein 7.0 Albumin 3.9 Globulin 3.10 Albumin/Globulin Ratio 1.25 Thyroid Stimulating Hormone (TSH) Pending Medications Medication Current Medications Furosemide (Lasix) 20 mg BID DIURETICS IV Last administered on 01/07/19at 06:43; Admin Dose 20 MG; Start 01/06/19 at 06:00 Morphine Sulfate (morphine) 2 mg Q4H PRN IV SEVERE PAIN LEVEL 7-10 Last administered on 01/07/19at 15:31; Admin Dose 2 MG; Start 01/06/19 at 00:30 Ondansetron HCl (Zofran Inj) 4 mg Q6H PRN IV NAUSEA AND/OR VOMITING; Start 01/06/19 at 00:30 Pantoprazole (Protonix Iv) 40 mg BID@,18 IV Last administered on 01/07/19at 06:43; Admin Dose 40 MG; Start 01/06/19 at 06:00 Allopurinol (Zyloprim) 100 mg DAILY PO ; Start 01/07/19 at 09:00 Docusate Sodium (Colace) 200 mg QHS PO Last administered on 01/06/19at 21:23; Admin Dose 200 MG; Start 01/06/19 at 21:00 Ferrous Sulfate (Ferrous Sulfate (Ec)) 325 mg DAILY PO ; Start 01/07/19 at 09:00 Folic Acid (Folic Acid) 1 mg DAILY PO ; Start 01/07/19 at 09:00 Gabapentin (Neurontin) 100 mg TID PO Last administered on 01/07/19at 12:21; Admin Dose 100 MG; Start 01/06/19 at 21:00 Levothyroxine Sodium (Synthroid) 200 mcg BEFORE BREAKFAST PO Last administered on 01/07/19at 06:48; Admin Dose 200 MCG; Start 01/07/19 at 07:00 Metoprolol Succinate (Toprol Xl) 100 mg DAILY PO ; Start 01/07/19 at 09:00 Spironolactone (Aldactone) 50 mg DAILY PO ; Start 01/07/19 at 09:00 Tamsulosin HCl (Flomax) 0.4 mg DAILY PO ; Start 01/07/19 at 09:00 Miscellaneous Information 1 inh BID INHALATION ; Start 01/06/19 at 21:00; Status UNV Albuterol/ Ipratropium (Duoneb) 3 ml Q6H RESP THERAPY HHN Last administered on 01/07/19at 14:29; Admin Dose 3 ML; Start 01/06/19 at 20:00 Albuterol/ Ipratropium (Duoneb) 3 ml Q4H RESP THERAPY PRN HHN SHORTNESS OF BREATH; Start 01/06/19 at 16:30 Lorazepam (Ativan) 0.5 mg Q6H PRN PO ANXIETY Last administered on 01/07/19at 04:40; Admin Dose 0.5 MG; Start 01/06/19 at 21:00 Azithromycin (Zithromax) 250 mg DAILY PO Last administered on 01/07/19at 12:21; Admin Dose 250 MG; Start 01/07/19 at 12:00 MILLICENT GOVEA Jan 07, 2019 16:28
[2019-01-07] MEDS ORDERED: hydrALAzine 20 MG INJ IV PRN (16:30)
--- NOTE | 2019-01-07 20:11 | CONS ---
Assessment/Plan Assessment/Plan Assessment/Plan (Daily) IMPRESSION: 1. Microcytic hypochromic anemia, most probably related to iron deficiency. 2. 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 3. Nicotine addiction. 4. Congestive heart failure. 5. Chronic obstructive pulmonary disease. 6. Renal failure. Plan Patient ferritin is 33 which is low for his condition. Patient definitely needs EGD and colonoscopy. We will proceed with the procedure once his condition is stable Consultation Date/Type/Reason Admit Date/Time Jan 05, 2019 at 17:47 Initial Consult Date 01/06/19 Requesting Provider: KOKO MARLOW MD Date/Time of Note DATE: 01/07/19 TIME: 20:09 24 HR Interval Summary Free Text/Dictation No abdominal pain no GI bleeding Constitutional: requiring O2 Exam/Review of Systems Exam Vitals Vital Signs Date Temp Pulse Resp B/P (MAP) Pulse Ox O2 O2 Flow FiO2 Time Delivery Rate 01/07/19 99.1 91 18 143/62 96 Room Air 19:57 (89) Nasal Cannula 01/07/19 3.0 14:29 Intake and Output 01/06/19 01/06/19 01/07/19 1515:00 23:00 07:00 IntakeIntake Total 1000 ml 900 ml OutputOutput Total 800 ml 2100 ml 1300 ml BalanceBalance -800 ml -1100 ml -400 ml Constitutional: alert, oriented, well developed Psych: no complaints, nl mood/affect Head: normocephalic, atraumatic Eyes: nl conjunctiva, EOMI, nl lids, nl sclera, PERRL ENMT: nl external ears & nose, nl lips & teeth, nl nasal mucosa & septum Neck: supple, non-tender Respiratory: clear to auscultation, normal air movement Cardiovascular: regular rate and rhythm, nl pulses Gastrointestinal: soft, nl liver, spleen, non-tender Musculoskeletal: nl extremities to inspection, nl gait and stance Extremities: normal pulses Neurological: DIRECTOR IMMUNOLOGY II-XII intact, nl mental status, nl speech, nl strength Skin: nl turgor; No rash or lesions Lymph: nl lymph nodes Results Result Diagram: 01/07/19 1507 01/07/19 1507 Results 24hrs Laboratory Tests Test 01/07/19 15:07 01/07/19 18:51 White Blood Count 10.5 Red Blood Count 3.47 L Hemoglobin 7.3 L Hematocrit 26.2 L Mean Corpuscular Volume 75.5 L Mean Corpuscular Hemoglobin 21.0 L Mean Corpuscular Hemoglobin Concent 27.9 L Red Cell Distribution Width 22.9 H Platelet Count 115 L Mean Platelet Volume Immature Granulocytes % 1.300 H Neutrophils % Segmented Neutrophils % (Manual) 81 H Lymphocytes % Lymphocytes % (Manual) 5 L Monocytes % Monocytes % (Manual) 14 H Eosinophils % Basophils % Nucleated Red Blood Cells % 1 H Immature Granulocytes # 0.140 H Neutrophils # Lymphocytes (Manual) 0.5 L Lymphocytes # Monocytes # Monocytes # (Manual) 1.4 H Eosinophils # Basophils # Nucleated Red Blood Cells # Giant Platelets 1 H Polychromasia 3+ Hypochromasia 2+ Poikilocytosis 2+ Anisocytosis 2+ Microcytosis 1+ Macrocytosis 1+ Absolute Reticulocyte Count 0.167 H Percent Reticulocyte Count 4.8 H Sodium Level 136 Potassium Level 4.2 Chloride Level 99 Carbon Dioxide Level 26 Anion Gap 11 Blood Urea Nitrogen 72 H Creatinine 2.21 H Est Glomerular Filtrat Rate mL/min 30 L Glucose Level 103 Calcium Level 8.4 Ferritin 33.0 Total Bilirubin 0.4 Direct Bilirubin 0.00 Indirect Bilirubin 0.4 Aspartate Amino Transf (AST/SGOT) 22 Alanine Aminotransferase (ALT/SGPT) 21 Alkaline Phosphatase 95 Total Protein 7.0 Albumin 3.9 Globulin 3.10 Albumin/Globulin Ratio 1.25 Vitamin B12 Level 949 H Thyroid Stimulating Hormone (TSH) 6.510 H Free Thyroxine 1.32 Creatine Kinase 40 Creatine Kinase Index 4.6 Creatinine Kinase MB (Mass) 1.85 Troponin I 0.025 Medications Medication Current Medications Furosemide (Lasix) 20 mg BID DIURETICS IV Last administered on 01/07/19 17:34; Admin Dose 20 MG; Start 01/06/19 at 06:00 Morphine Sulfate (morphine) 2 mg Q4H PRN IV SEVERE PAIN LEVEL 7-10 Last administered on 01/07/19 15:31; Admin Dose 2 MG; Start 01/06/19 at 00:30 Ondansetron HCl (Zofran Inj) 4 mg Q6H PRN IV NAUSEA AND/OR VOMITING; Start 01/06/19 at 00:30 Pantoprazole (Protonix Iv) 40 mg BID@06,18 IV Last administered on 01/07/19 17:34; Admin Dose 40 MG; Start 01/06/19 at 06:00 Allopurinol (Zyloprim) 100 mg DAILY PO ; Start 01/07/19 at 09:00 Docusate Sodium (Colace) 200 mg QHS PO Last administered on 01/06/19at 21:23; Admin Dose 200 MG; Start 01/06/19 at 21:00 Ferrous Sulfate (Ferrous Sulfate (Ec)) 325 mg DAILY PO ; Start 01/07/19 at 09:00 Folic Acid (Folic Acid) 1 mg DAILY PO ; Start 01/07/19 at 09:00 Gabapentin (Neurontin) 100 mg TID PO Last administered on 01/07/19at 12:21; Admin Dose 100 MG; Start 01/06/19 at 21:00 Levothyroxine Sodium (Synthroid) 200 mcg BEFORE BREAKFAST PO Last administered on 01/07/19at 06:48; Admin Dose 200 MCG; Start 01/07/19 at 07:00 Metoprolol Succinate (Toprol Xl) 100 mg DAILY PO ; Start 01/07/19 at 09:00 Spironolactone (Aldactone) 50 mg DAILY PO ; Start 01/07/19 at 09:00 Tamsulosin HCl (Flomax) 0.4 mg DAILY PO ; Start 01/07/19 at 09:00 Albuterol/ Ipratropium (Duoneb) 3 ml Q6H RESP THERAPY HHN Last administered on 01/07/19at 14:29; Admin Dose 3 ML; Start 01/06/19 at 20:00 Albuterol/ Ipratropium (Duoneb) 3 ml Q4H RESP THERAPY PRN HHN SHORTNESS OF BREATH; Start 01/06/19 at 16:30 Lorazepam (Ativan) 0.5 mg Q6H PRN PO ANXIETY Last administered on 01/07/19at 17:34; Admin Dose 0.5 MG; Start 01/06/19 at 21:00 Azithromycin (Zithromax) 250 mg DAILY PO Last administered on 01/07/19at 12:21; Admin Dose 250 MG; Start 01/07/19 at 12:00 Hydralazine HCl (Apresoline) 10 mg Q4H PRN IV SBP>170; Start 01/07/19 at 16:30 Multivitamins 10 ml/Thiamine HCl 100 mg/Folic Acid 1 mg/Sodium Chloride 1,011.2 ml @ 50 mls/hr DAILY@09 IVPB ; Start 01/08/19 at 09:00 Arformoterol Tartrate (Brovana (Neb)) 2 ml BID RESP THERAPY INH ; Start 01/07/19 at 20:00 Budesonide (Pulmicort (Neb)) 0.5 mg Q12H RESP THERAPY INH ; Start 01/07/19 at 20:00 CHLOÉ TORRE MD Jan 07, 2019 20:11
[2019-01-07] MEDS: ARFORMOTEROL TARTRATE 15MCG/2 ML AMP INH SCH (20:30)
[2019-01-07] MEDS: BUDESONIDE (NEB) 0.5MG/2ML AMP INH SCH (20:40)
--- NOTE | 2019-01-07 21:12 | CONS ---
DATE OF ADMISSION: 01/05/2019 DATE OF CONSULTATION: 01/07/2019 TYPE OF CONSULTATION: Cardiology. REASON FOR CONSULTATION: Shortness of breath, congestive heart failure. REQUESTING PHYSICIAN: Koko Lara MD HISTORY OF PRESENT ILLNESS: Mr. Milian is a 63-year-old male with a history of hypertension, anand estive heart failure with previously preserved EF, lower extremity osteomyelitis, alcoholic liver cir rhosis, tobacco dependence, EtOH abuse, hypothyroidism, who presented with complaints of shortness of breath associated with orthopnea. The patient denied associated chest pains. Upon arrival, tempera ture of 98.2, blood pressure 112/59, pulse 79, respiratory rate 20, satting 91%. The patient's labs were notable for a white blood cell count of 17, hemoglobin 6.5, platelet count of 173, sodium of 125 , potassium 4.7, creatinine 2.9, BUN 54, BNP of 9920, INR 1.0, troponin negative. The patient underw ent a chest x-ray revealing cardiomegaly with increased hilar vascular ____ congestion, small right p leural effusion and a KUB that revealed no free fluid in abdomen. The patient's electrocardiogram re vealed sinus rhythm, rate of 84, borderline left axis deviation with isolated T-wave flattening in le ad aVL and associated rare PAC. The patient was subsequently admitted to the floor and since admit t o the floor, has ongoing shortness of breath, consistent with orthopnea. The patient has had stable vital signs with some mild elevation of systolic blood pressure today at 150 but mainly well controll ed. PAST MEDICAL HISTORY: As above in HPI. MEDICATIONS CURRENTLY IN HOSPITAL: 1. Azithromycin 250 mg daily. 2. Allopurinol 100 mg daily. 3. Ferrous sulfate 325 mg daily. 4. Toprol-XL 100 mg daily. 5. Aldactone 50 mg daily. 6. Tamsulosin 0.4 mg daily. 7. Colace 200 mg at bedtime. 8. Gabapentin 100 mg t.i.d. 9. Lasix 20 mg IV b.i.d. 10. Protonix 40 mg IV b.i.d. 11. Morphine p.r.n. 12. Zofran p.r.n. ALLERGIES: PENICILLIN. SOCIAL HISTORY: Positive tobacco. Positive EtOH. No illicit drug use. FAMILY HISTORY: No history of sudden cardiac or early CAD. REVIEW OF SYSTEMS: As above in HPI. CONSTITUTIONAL: No fevers, chills. PULMONARY: Shortness of breath. CARDIOVASCULAR: No current chest pain, but shortness breath, CHF. GASTROINTESTINAL: No vomiting, but history of cirrhosis. GENITOURINARY: No hematuria. MUSCULOSKELETAL: Degenerative joint disease. PSYCHIATRIC: The patient has depression. NEUROLOGIC: No documented history of CVA. PHYSICAL EXAMINATION VITAL SIGNS: Temperature of 98, blood pressure mostly recent 141/66, pulse 78, respiratory rate 18, satting 99%. GENERAL: The patient is alert, awake, complaining of shortness of breath. NECK: JVP approximately is 9 to 10 cm water. CHEST: Decreased breath sounds at bases bilaterally. HEART: Regular rate and rhythm. Normal S1, S2, I/ systolic murmur, nondisplaced PMI. ABDOMEN: Positive bowel sounds, soft. EXTREMITIES: Trace edema, chronic venous stasis changes, 1+ pulses bilaterally at the dorsalis pedis . LABORATORY DATA: Most recently from 01/06/2019, sodium 129, potassium of 5.0, creatinine 2.4, BUN 58 . White blood cell count 10.5, hemoglobin 7.3, platelet count 115. IMAGING STUDIES: As above in HPI. No further imaging studies for my review at this time. ELECTROCARDIOGRAM: As above in HPI. No further electrocardiograms for my review at this time. IMPRESSION: 1. Congestive heart failure exacerbation would be diastolic by previous echo, acute on chronic. 2. Hypertension, mildly elevated ____ it looks like he has his Toprol held of unclear reasons at thi s time. 3. Shortness of breath secondary to #1. 4. Renal failure. 5. Cirrhosis. 6. Hypothyroidism. 7. History of EtOH abuse. RECOMMENDATIONS: 1. At this time, we would maintain the patient on telemetry monitoring to follow rhythm and rate con trol closely. 2. We would continue the patient's Lasix diuresis, but we will consider increasing the dose. 3. The patient will be followed by nephrology with plans to discontinue the patient's Aldactone for diuresis of ascites and he will be given albumin q.8 x3 doses. 4. The patient is to undergo paracentesis as possible. 5. Check a repeat 2D echo to reassess patient's ejection fraction, wall motion or rule out any major valve abnormalities. 6. We will complete the patient's rule out for myocardial infarction to ensure the patient's constel lation of symptoms are not the result of acute coronary syndrome such as acute myocardial infarction. Thank you for allowing me to take part in the care of this patient. I will continue to follow him ve ry closely with you with further recommendations will be made as the patient progresses through his [facility] clinical course. Dictated By: DUSTY YOUNG/NILDA Conf#: [id number] DID#: [id number] CC: KOKO LARA MD;*EndCC*
[2019-01-07] MEDS: DOCUSATE SODIUM 100 MG CAP PO SCH (22:21)
[2019-01-08] VITALS (13 sets, daily range): BP systolic 123–161; BP diastolic 60–77; PULSE 82–111; RESP 18–20
[2019-01-08] MEDS: ALBUTEROL/IPRATROPIUM (NEB) 3 ML AMP HHN SCH ×4 (02:15→21:37)
[2019-01-08] MEDS: LEVOTHYROXINE 100 MCG TAB PO SCH (05:52)
[2019-01-08] MEDS: FUROSEMIDE 20 MG TAB PO SCH ×2 (05:53→17:45)
[2019-01-08] MEDS: PANTOPRAZOLE 40 MG INJ IV SCH ×2 (05:53→17:44)
[2019-01-08] MEDS: MULTIVITAMINS 10 ML, THIAMINE 100 MG, FOLIC ACID 1 MG in SOD CHLORIDE 0.9% 1,000 ML IVPB SCH (08:53)
[2019-01-08] MEDS: FOLIC ACID 1 MG TAB PO SCH (08:54)
[2019-01-08] MEDS: morphine 2 MG INJ IV PRN ×2 (08:54→19:47)
[2019-01-08] MEDS: TAMSULOSIN (SR) 0.4 MG CAP PO SCH (08:54)
[2019-01-08] MEDS: METOPROLOL (XL) 100 MG TAB PO SCH (08:54)
[2019-01-08] MEDS: SPIRONOLACTONE 50 MG TAB PO SCH (08:54)
[2019-01-08] MEDS: ALLOPURINOL 100 MG TAB PO SCH (08:54)
[2019-01-08] MEDS: AZITHROMYCIN 250 MG TAB PO SCH (08:54)
[2019-01-08] MEDS: GABAPENTIN 100 MG CAP PO SCH ×3 (08:54→19:58)
[2019-01-08] MEDS: FERROUS SULFATE (EC) 325 MG TAB PO SCH (08:55)
[2019-01-08] MEDS: BUDESONIDE (NEB) 0.5MG/2ML AMP INH SCH ×2 (09:11→21:37)
[2019-01-08] MEDS: ARFORMOTEROL TARTRATE 15MCG/2 ML AMP INH SCH ×2 (09:20→21:37)
--- NOTE | 2019-01-08 12:12 | CONS ---
Assessment/Plan Assessment/Plan Assessment/Plan (Daily) Assessment/Plan (Daily) IMPRESSION: 1. Microcytic hypochromic anemia, most probably related to iron deficiency. 2. 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 3. Nicotine addiction. 4. Congestive heart failure. 5. Chronic obstructive pulmonary disease. 6. Renal failure. Plan Patient ferritin is 33 which is low for his condition. Patient definitely needs EGD and colonoscopy. We will proceed with the procedure once his condition is stable We will review 2D echo once he is done. And once he is cleared cleared by veneer gluer will proceed with EGD and colonoscopy. Consultation Date/Type/Reason Admit Date/Time Jan 05, 2019 at 17:47 Initial Consult Date 01/06/19 Requesting Provider: KOKO MARLOW MD Date/Time of Note DATE: 01/08/19 TIME: 12:12 24 HR Interval Summary Constitutional: improved Exam/Review of Systems Exam Vitals Vital Signs Date Temp Pulse Resp B/P (MAP) Pulse Ox O2 O2 Flow FiO2 Time Delivery Rate 01/08/19 98.1 93 20 139/65 93 11:16 (89) 01/08/19 Nasal 2.0 09:00 Cannula Intake and Output 01/07/19 01/07/19 01/08/19 1414:59 22:59 06:59 IntakeIntake Total 880 ml 500 ml OutputOutput Total 1550 ml 1200 ml BalanceBalance -670 ml -700 ml Constitutional: alert, oriented, well developed Psych: no complaints, nl mood/affect Head: normocephalic, atraumatic Eyes: nl conjunctiva, EOMI, nl lids, nl sclera, PERRL ENMT: nl external ears & nose, nl lips & teeth, nl nasal mucosa & septum Neck: supple, non-tender Respiratory: clear to auscultation, normal air movement Cardiovascular: regular rate and rhythm, nl pulses Gastrointestinal: soft, nl liver, spleen, non-tender Musculoskeletal: nl extremities to inspection, nl gait and stance Extremities: normal pulses Neurological: 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 II-XII intact, nl mental status, nl speech, nl strength Skin: nl turgor; No rash or lesions Lymph: nl lymph nodes Results Result Diagram: 01/08/19 0623 01/08/19 0623 Results 24hrs Laboratory Tests Test 01/07/19 15:07 01/07/19 18:51 01/07/19 20:00 01/08/19 00:22 White Blood Count 10.5 Red Blood Count 3.47 L Hemoglobin 7.3 L Hematocrit 26.2 L Mean Corpuscular Volume 75.5 L Mean Corpuscular 21.0 L Hemoglobin Mean Corpuscular 27.9 L Hemoglobin Concent Red Cell Distribution 22.9 H Width Platelet Count 115 L Mean Platelet Volume Immature Granulocytes % 1.300 H Neutrophils % Segmented Neutrophils 81 H % (Manual) Lymphocytes % Lymphocytes % (Manual) 5 L Monocytes % Monocytes % (Manual) 14 H Eosinophils % Basophils % Nucleated Red Blood 1 H Cells % Immature Granulocytes # 0.140 H Neutrophils # Lymphocytes (Manual) 0.5 L Lymphocytes # Monocytes # Monocytes # (Manual) 1.4 H Eosinophils # Basophils # Nucleated Red Blood Cells # Giant Platelets 1 H Polychromasia 3+ Hypochromasia 2+ Poikilocytosis 2+ Anisocytosis 2+ Microcytosis 1+ Macrocytosis 1+ Absolute Reticulocyte 0.167 H Count Percent Reticulocyte 4.8 H Count Sodium Level 136 Potassium Level 4.2 Chloride Level 99 Carbon Dioxide Level 26 Anion Gap 11 Blood Urea Nitrogen 72 H Creatinine 2.21 H Est Glomerular Filtrat 30 L Rate mL/min Glucose Level 103 Calcium Level 8.4 Ferritin 33.0 Total Bilirubin 0.4 Direct Bilirubin 0.00 Indirect Bilirubin 0.4 Aspartate Amino 22 Transf (AST/SGOT) Alanine 21 Aminotransferase (ALT/SG PT) Alkaline Phosphatase 95 Total Protein 7.0 Albumin 3.9 Globulin 3.10 Albumin/Globulin Ratio 1.25 Vitamin B12 Level 949 H Thyroid Stimulating 6.510 H Hormone (TSH) Free Thyroxine 1.32 Creatine Kinase 40 33 Creatine Kinase Index 4.6 6.0 Creatinine Kinase MB 1.85 1.98 (Mass) Troponin I 0.025 0.044 Stool Occult Blood NEGATIVE Test 01/08/19 06:23 White Blood Count 6.6 # Red Blood Count 3.58 L Hemoglobin 7.4 L Hematocrit 27.6 L Mean Corpuscular Volume 77.1 L Mean Corpuscular 20.7 L Hemoglobin Mean Corpuscular 26.8 L Hemoglobin Concent Red Cell Distribution 22.5 H Width Platelet Count 99 L Mean Platelet Volume Immature Granulocytes % 1.700 H Neutrophils % Segmented Neutrophils 64 % (Manual) Band Neutrophils % 2 (Manual) Lymphocytes % Lymphocytes % (Manual) 19 Reactive Lymphocytes 1 H % (Manual) Monocytes % Monocytes % (Manual) 13 H Eosinophils % Eosinophils % (Manual) 1 Basophils % Nucleated Red Blood 1 H Cells % Immature Granulocytes # 0.110 H Neutrophils # Neutrophils # (Manual) 4.2 Band Neutrophils # 0.1 Lymphocytes (Manual) 1.2 Lymphocytes # Reactive Lymphocytes # 0.0 Monocytes # Monocytes # (Manual) 0.8 Eosinophils # Basophils # Nucleated Red Blood Cells # Platelet Estimate DECREASED Hypochromasia 3+ Poikilocytosis 1+ Anisocytosis 2+ Microcytosis 2+ Macrocytosis 1+ Sodium Level 140 Potassium Level 4.7 Chloride Level 104 Carbon Dioxide Level 25 Anion Gap 11 Blood Urea Nitrogen 71 H Creatinine 1.84 H Est Glomerular Filtrat 38 L Rate mL/min Glucose Level 98 Calcium Level 8.5 Magnesium Level 2.3 Creatine Kinase 30 Creatine Kinase Index 5.6 Creatinine Kinase MB 1.68 (Mass) Troponin I 0.028 Triglycerides Level 50 Cholesterol Level 99 L LDL Cholesterol, 46 Calculated HDL Cholesterol 43 Cholesterol/HDL Ratio 2.3 Medications Medication Current Medications Morphine Sulfate (morphine) 2 mg Q4H PRN IV SEVERE PAIN LEVEL 7-10 Last administered on 01/08/19 08:54; Admin Dose 2 MG; Start 01/06/19 at 00:30 Ondansetron HCl (Zofran Inj) 4 mg Q6H PRN IV NAUSEA AND/OR VOMITING; Start 01/06/19 at 00:30 Pantoprazole (Protonix Iv) 40 mg BID@06,18 IV Last administered on 01/08/19 05:53; Admin Dose 40 MG; Start 01/06/19 at 06:00 Allopurinol (Zyloprim) 100 mg DAILY PO Last administered on 01/08/19 08:54; Admin Dose 100 MG; Start 01/07/19 at 09:00 Docusate Sodium (Colace) 200 mg QHS PO Last administered on 01/06/19 21:23; Ad min Dose 200 MG; Start 01/06/19 at 21:00 Ferrous Sulfate (Ferrous Sulfate (Ec)) 325 mg DAILY PO Last administered on 01/08/19 08:55; Admin Dose 325 MG; Start 01/07/19 at 09:00 Folic Acid (Folic Acid) 1 mg DAILY PO Last administered on 01/08/19 08:54; Admin Dose 1 MG; Start 01/07/19 at 09:00 Gabapentin (Neurontin) 100 mg TID PO Last administered on 01/08/19 08:54; Admin Dose 100 MG; Start 01/06/19 at 21:00 Levothyroxine Sodium (Synthroid) 200 mcg BEFORE BREAKFAST PO Last administered on 01/08/19 05:52; Admin Dose 200 MCG; Start 01/07/19 at 07:00 Metoprolol Succinate (Toprol Xl) 100 mg DAILY PO Last administered on 01/08/19 08:54; Admin Dose 100 MG; Start 01/07/19 at 09:00 Spironolactone (Aldactone) 50 mg DAILY PO Last administered on 01/08/19 08:54; Admin Dose 50 MG; Start 01/07/19 at 09:00 Tamsulosin HCl (Flomax) 0.4 mg DAILY PO Last administered on 01/08/19 08:54; Admin Dose 0.4 MG; Start 01/07/19 at 09:00 Albuterol/ Ipratropium (Duoneb) 3 ml Q6H RESP THERAPY HHN Last administered on 01/08/19 09:11; Admin Dose 3 ML; Start 01/06/19 at 20:00 Albuterol/ Ipratropium (Duoneb) 3 ml Q4H RESP THERAPY PRN HHN SHORTNESS OF BREATH; Start 01/06/19 at 16:30 Lorazepam (Ativan) 0.5 mg Q6H PRN PO ANXIETY Last administered on 01/07/19 17:34; Admin Dose 0.5 MG; Start 01/06/19 at 21:00 Azithromycin (Zithromax) 250 mg DAILY PO Last administered on 01/08/19 08:54; Admin Dose 250 MG; Start 01/07/19 at 12:00 Hydralazine HCl (Apresoline) 10 mg Q4H PRN IV SBP>170; Start 01/07/19 at 16:30 Multivitamins 10 ml/Thiamine HCl 100 mg/Folic Acid 1 mg/Sodium Chloride 1,011.2 ml @ 50 mls/hr DAILY@09 IVPB Last administered on 01/08/19 08:53; Admin Dose 50 MLS/HR; Start 01/08/19 at 09:00 Arformoterol Tartrate (Brovana (Neb)) 2 ml BID RESP THERAPY INH Last administered on 01/08/19 09:20; Admin Dose 2 ML; Start 01/07/19 at 20:00 Budesonide (Pulmicort (Neb)) 0.5 mg Q12H RESP THERAPY INH Last administered on 01/08/19 09:11; Admin Dose 0.5 MG; Start 01/07/19 at 20:00 Furosemide (Lasix) 20 mg BID DIURETICS PO Last administered on 01/08/19 05:53; Admin Dose 20 MG; Start 01/08/19 at 06:00 CHLOÉ TORRE MD Jan 08, 2019 12:12
--- NOTE | 2019-01-08 13:18 | CONS ---
Assessment/Plan Assessment/Plan Hospital Course (Demo Recall) No acute changes over night, no fevers Antimicrobials: Zithromax, status post Rocephin dose Chest x-ray on admission revealed cardiomegaly with increased hilar vascular and interstitial congestion and small right pleural effusion. Abdominal ultrasound revealed no free fluid in the abdomen Physical examination: This is a wasted well-developed chronically ill-appearing elderly man who is in no distress. Head atraumatic normocephalic sclera nonicteric. Neck is supple chest rise symmetrical breath sounds diminished bases. Heart: S1-S2. Abdomen soft bowel sounds present. Extremities without cyanosis. Assessment: 1. Systemic inflammatory response syndrome with resolving leukocytosis 2. Possible COPD exacerbation 3. Alcohol abuse 4. Bilateral lower extremities chronic venous stasis 5. Cirrhosis with recurrent ascites 6. Chronic kidney disease 7. CHF Plan: Remains stable, continue present care, follow GI and renal recommendations Consultation Date/Type/Reason Admit Date/Time Jan 05, 2019 at 17:47 Initial Consult Date 01/06/19 Type of Consult id Requesting Provider: KOKO MARLOW MD Date/Time of Note DATE: 01/08/19 TIME: 13:17 Exam/Review of Systems Exam Vitals Vital Signs Date Temp Pulse Resp B/P (MAP) Pulse Ox O2 O2 Flow FiO2 Time Delivery Rate 01/08/19 85 12:58 01/08/19 98.1 20 139/65 93 11:16 (89) 01/08/19 Nasal 2.0 09:00 Cannula Intake and Output 01/07/19 01/07/19 01/08/19 1515:00 23:00 07:00 IntakeIntake Total 880 ml 500 ml OutputOutput Total 1550 ml 1200 ml BalanceBalance -670 ml -700 ml Results Result Diagram: 01/08/19 0623 01/08/19 0623 Results 24hrs Laboratory Tests Test 01/07/19 15:07 01/07/19 18:51 01/07/19 20:00 01/08/19 00:22 White Blood Count 10.5 Red Blood Count 3.47 L Hemoglobin 7.3 L Hematocrit 26.2 L Mean Corpuscular Volume 75.5 L Mean Corpuscular 21.0 L Hemoglobin Mean Corpuscular 27.9 L Hemoglobin Concent Red Cell Distribution 22.9 H Width Platelet Count 115 L Mean Platelet Volume Immature Granulocytes % 1.300 H Neutrophils % Segmented Neutrophils 81 H % (Manual) Lymphocytes % Lymphocytes % (Manual) 5 L Monocytes % Monocytes % (Manual) 14 H Eosinophils % Basophils % Nucleated Red Blood 1 H Cells % Immature Granulocytes # 0.140 H Neutrophils # Lymphocytes (Manual) 0.5 L Lymphocytes # Monocytes # Monocytes # (Manual) 1.4 H Eosinophils # Basophils # Nucleated Red Blood Cells # Giant Platelets 1 H Polychromasia 3+ Hypochromasia 2+ Poikilocytosis 2+ Anisocytosis 2+ Microcytosis 1+ Macrocytosis 1+ Absolute Reticulocyte 0.167 H Count Percent Reticulocyte 4.8 H Count Sodium Level 136 Potassium Level 4.2 Chloride Level 99 Carbon Dioxide Level 26 Anion Gap 11 Blood Urea Nitrogen 72 H Creatinine 2.21 H Est Glomerular Filtrat 30 L Rate mL/min Glucose Level 103 Calcium Level 8.4 Ferritin 33.0 Total Bilirubin 0.4 Direct Bilirubin 0.00 Indirect Bilirubin 0.4 Aspartate Amino 22 Transf (AST/SGOT) Alanine 21 Aminotransferase (ALT/SG PT) Alkaline Phosphatase 95 Total Protein 7.0 Albumin 3.9 Globulin 3.10 Albumin/Globulin Ratio 1.25 Vitamin B12 Level 949 H Thyroid Stimulating 6.510 H Hormone (TSH) Free Thyroxine 1.32 Creatine Kinase 40 33 Creatine Kinase Index 4.6 6.0 Creatinine Kinase MB 1.85 1.98 (Mass) Troponin I 0.025 0.044 Stool Occult Blood NEGATIVE Test 01/08/19 06:23 White Blood Count 6.6 # Red Blood Count 3.58 L Hemoglobin 7.4 L Hematocrit 27.6 L Mean Corpuscular Volume 77.1 L Mean Corpuscular 20.7 L Hemoglobin Mean Corpuscular 26.8 L Hemoglobin Concent Red Cell Distribution 22.5 H Width Platelet Count 99 L Mean Platelet Volume Immature Granulocytes % 1.700 H Neutrophils % Segmented Neutrophils 64 % (Manual) Band Neutrophils % 2 (Manual) Lymphocytes % Lymphocytes % (Manual) 19 Reactive Lymphocytes 1 H % (Manual) Monocytes % Monocytes % (Manual) 13 H Eosinophils % Eosinophils % (Manual) 1 Basophils % Nucleated Red Blood 1 H Cells % Immature Granulocytes # 0.110 H Neutrophils # Neutrophils # (Manual) 4.2 Band Neutrophils # 0.1 Lymphocytes (Manual) 1.2 Lymphocytes # Reactive Lymphocytes # 0.0 Monocytes # Monocytes # (Manual) 0.8 Eosinophils # Basophils # Nucleated Red Blood Cells # Platelet Estimate DECREASED Hypochromasia 3+ Poikilocytosis 1+ Anisocytosis 2+ Microcytosis 2+ Macrocytosis 1+ Sodium Level 140 Potassium Level 4.7 Chloride Level 104 Carbon Dioxide Level 25 Anion Gap 11 Blood Urea Nitrogen 71 H Creatinine 1.84 H Est Glomerular Filtrat 38 L Rate mL/min Glucose Level 98 Calcium Level 8.5 Magnesium Level 2.3 Creatine Kinase 30 Creatine Kinase Index 5.6 Creatinine Kinase MB 1.68 (Mass) Troponin I 0.028 Triglycerides Level 50 Cholesterol Level 99 L LDL Cholesterol, 46 Calculated HDL Cholesterol 43 Cholesterol/HDL Ratio 2.3 Medications Medication Current Medications Morphine Sulfate (morphine) 2 mg Q4H PRN IV SEVERE PAIN LEVEL 7-10 Last administered on 01/08/19 08:54; Admin Dose 2 MG; Start 01/06/19 at 00:30 Ondansetron HCl (Zofran Inj) 4 mg Q6H PRN IV NAUSEA AND/OR VOMITING; Start 01/06/19 at 00:30 Pantoprazole (Protonix Iv) 40 mg BID@,18 IV Last administered on 01/08/19 05:53; Admin Dose 40 MG; Start 01/06/19 at 06:00 Allopurinol (Zyloprim) 100 mg DAILY PO Last administered on 01/08/19 08:54; Admin Dose 100 MG; Start 01/07/19 at 09:00 Docusate Sodium (Colace) 200 mg QHS PO Last administered on 01/06/19 21:23; Admin Dose 200 MG; Start 01/06/19 at 21:00 Ferrous Sulfate (Ferrous Sulfate (Ec)) 325 mg DAILY PO Last administered on 01/08/19 08:55; Admin Dose 325 MG; Start 01/07/19 at 09:00 Folic Acid (Folic Acid) 1 mg DAILY PO Last administered on 01/08/19 08:54; Admin Dose 1 MG; Start 01/07/19 at 09:00 Gabapentin (Neurontin) 100 mg TID PO Last administered on 01/08/19 12:25; Admin Dose 100 MG; Start 01/06/19 at 21:00 Levothyroxine Sodium (Synthroid) 200 mcg BEFORE BREAKFAST PO Last administered on 01/08/19 05:52; Admin Dose 200 MCG; Start 01/07/19 at 07:00 Metoprolol Succinate (Toprol Xl) 100 mg DAILY PO Last administered on 01/08/19 08:54; Admin Dose 100 MG; Start 01/07/19 at 09:00 Spironolactone (Aldactone) 50 mg DAILY PO Last administered on 01/08/19 08:54; Admin Dose 50 MG; Start 01/07/19 at 09:00 Tamsulosin HCl (Flomax) 0.4 mg DAILY PO Last administered on 01/08/19 08:54; Admin Dose 0.4 MG; Start 01/07/19 at 09:00 Albuterol/ Ipratropium (Duoneb) 3 ml Q6H RESP THERAPY HHN Last administered on 01/08/19 09:11; Admin Dose 3 ML; Start 01/06/19 at 20:00 Albuterol/ Ipratropium (Duoneb) 3 ml Q4H RESP THERAPY PRN HHN SHORTNESS OF BREATH; Start 01/06/19 at 16:30 Lorazepam (Ativan) 0.5 mg Q6H PRN PO ANXIETY Last administered on 01/07/19 17:34; Admin Dose 0.5 MG; Start 01/06/19 at 21:00 Azithromycin (Zithromax) 250 mg DAILY PO Last administered on 01/08/19 08:54; Admin Dose 250 MG; Start 01/07/19 at 12:00 Hydralazine HCl (Apresoline) 10 mg Q4H PRN IV SBP>170; Start 01/07/19 at 16:30 Multivitamins 10 ml/Thiamine HCl 100 mg/Folic Acid 1 mg/Sodium Chloride 1,011.2 ml @ 50 mls/hr DAILY@09 IVPB Last administered on 01/08/19 08:53; Admin Dose 50 MLS/HR; Start 01/08/19 at 09:00 Arformoterol Tartrate (Brovana (Neb)) 2 ml BID RESP THERAPY INH Last administered on 01/08/19 09:20; Admin Dose 2 ML; Start 01/07/19 at 20:00 Budesonide (Pulmicort (Neb)) 0.5 mg Q12H RESP THERAPY INH Last administered on 01/08/19 09:11; Admin Dose 0.5 MG; Start 01/07/19 at 20:00 Furosemide (Lasix) 20 mg BID DIURETICS PO Last administered on 01/08/19at 05:53; Admin Dose 20 MG; Start 01/08/19 at 06:00 MELISSA NASH NP Jan 08, 2019 13:18
--- NOTE | 2019-01-08 14:42 | CONS ---
Assessment/Plan Assessment/Plan Assessment/Plan (Daily) 1. acute on chronic renal failure due to Type II hepatorenal syndrome + prerenal azotemia 2. Hyponatremia due to Liver cirrhosis 3. Severe Anemia with Hb 6.5 on admission s/p PRBC 4. Acidosis due to TRENT on CKD 5. Decompensated Liver cirrhosis with Symptomatic ascites 6. H/O HTN 7. h/o Liver cirrhosis with ascites 8. H/o Diastolic CHF Plan: Continue spironolactone, getting s/p IV albumin 25% 100ml Q 8 hr x 3 doses US guided Paracentesis attempted , not enough fluid to remove Cr improved, BUN stil lhigh, will assess for PO lasix tomorrow AM will follow up Consultation Date/Type/Reason Admit Date/Time Jan 05, 2019 at 17:47 Initial Consult Date 01/06/19 Type of Consult NEPHROLOGY Requesting Provider: KOKO MARLOW MD Date/Time of Note DATE: 01/08/19 TIME: 14:42 Exam/Review of Systems Exam Vitals Vital Signs Date Temp Pulse Resp B/P (MAP) Pulse Ox O2 O2 Flow FiO2 Time Delivery Rate 01/08/19 0.0 13:42 01/08/19 80 20 92 Nasal 32 13:42 Cannula 01/08/19 98.1 139/65 11:16 (89) Intake and Output 01/07/19 01/07/19 01/08/19 1515:00 23:00 07:00 IntakeIntake Total 880 ml 500 ml OutputOutput Total 1550 ml 1200 ml BalanceBalance -670 ml -700 ml Exam Constitutional: alert, awake, no acute distress Respiratory: clear to auscultation, congested cough, diminished breath sounds Cardiovascular: regular rate and rhythm, nl pulses Gastrointestinal: soft, non-tender, ascites, distended Musculoskeletal: joint tenderness, muscle weakness, swelling Extremities: normal pulses Neurological: 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 intact, nl mental status, nl speech, nl strength Lymph: nl lymph nodes Results Result Diagram: 01/08/19 0623 01/08/19 0623 Results 24hrs Laboratory Tests Test 01/07/19 15:07 01/07/19 18:51 01/07/19 20:00 01/08/19 00:22 White Blood Count 10.5 Red Blood Count 3.47 L Hemoglobin 7.3 L Hematocrit 26.2 L Mean Corpuscular Volume 75.5 L Mean Corpuscular 21.0 L Hemoglobin Mean Corpuscular 27.9 L Hemoglobin Concent Red Cell Distribution 22.9 H Width Platelet Count 115 L Mean Platelet Volume Immature Granulocytes % 1.300 H Neutrophils % Segmented Neutrophils 81 H % (Manual) Lymphocytes % Lymphocytes % (Manual) 5 L Monocytes % Monocytes % (Manual) 14 H Eosinophils % Basophils % Nucleated Red Blood 1 H Cells % Immature Granulocytes # 0.140 H Neutrophils # Lymphocytes (Manual) 0.5 L Lymphocytes # Monocytes # Monocytes # (Manual) 1.4 H Eosinophils # Basophils # Nucleated Red Blood Cells # Giant Platelets 1 H Polychromasia 3+ Hypochromasia 2+ Poikilocytosis 2+ Anisocytosis 2+ Microcytosis 1+ Macrocytosis 1+ Absolute Reticulocyte 0.167 H Count Percent Reticulocyte 4.8 H Count Sodium Level 136 Potassium Level 4.2 Chloride Level 99 Carbon Dioxide Level 26 Anion Gap 11 Blood Urea Nitrogen 72 H Creatinine 2.21 H Est Glomerular Filtrat 30 L Rate mL/min Glucose Level 103 Calcium Level 8.4 Ferritin 33.0 Total Bilirubin 0.4 Direct Bilirubin 0.00 Indirect Bilirubin 0.4 Aspartate Amino 22 Transf (AST/SGOT) Alanine 21 Aminotransferase (ALT/SG PT) Alkaline Phosphatase 95 Total Protein 7.0 Albumin 3.9 Globulin 3.10 Albumin/Globulin Ratio 1.25 Vitamin B12 Level 949 H Thyroid Stimulating 6.510 H Hormone (TSH) Free Thyroxine 1.32 Creatine Kinase 40 33 Creatine Kinase Index 4.6 6.0 Creatinine Kinase MB 1.85 1.98 (Mass) Troponin I 0.025 0.044 Stool Occult Blood NEGATIVE Test 01/08/19 06:23 White Blood Count 6.6 # Red Blood Count 3.58 L Hemoglobin 7.4 L Hematocrit 27.6 L Mean Corpuscular Volume 77.1 L Mean Corpuscular 20.7 L Hemoglobin Mean Corpuscular 26.8 L Hemoglobin Concent Red Cell Distribution 22.5 H Width Platelet Count 99 L Mean Platelet Volume Immature Granulocytes % 1.700 H Neutrophils % Segmented Neutrophils 64 % (Manual) Band Neutrophils % 2 (Manual) Lymphocytes % Lymphocytes % (Manual) 19 Reactive Lymphocytes 1 H % (Manual) Monocytes % Monocytes % (Manual) 13 H Eosinophils % Eosinophils % (Manual) 1 Basophils % Nucleated Red Blood 1 H Cells % Immature Granulocytes # 0.110 H Neutrophils # Neutrophils # (Manual) 4.2 Band Neutrophils # 0.1 Lymphocytes (Manual) 1.2 Lymphocytes # Reactive Lymphocytes # 0.0 Monocytes # Monocytes # (Manual) 0.8 Eosinophils # Basophils # Nucleated Red Blood Cells # Platelet Estimate DECREASED Hypochromasia 3+ Poikilocytosis 1+ Anisocytosis 2+ Microcytosis 2+ Macrocytosis 1+ Sodium Level 140 Potassium Level 4.7 Chloride Level 104 Carbon Dioxide Level 25 Anion Gap 11 Blood Urea Nitrogen 71 H Creatinine 1.84 H Est Glomerular Filtrat 38 L Rate mL/min Glucose Level 98 Calcium Level 8.5 Magnesium Level 2.3 Creatine Kinase 30 Creatine Kinase Index 5.6 Creatinine Kinase MB 1.68 (Mass) Troponin I 0.028 Triglycerides Level 50 Cholesterol Level 99 L LDL Cholesterol, 46 Calculated HDL Cholesterol 43 Cholesterol/HDL Ratio 2.3 Medications Medication Current Medications Morphine Sulfate (morphine) 2 mg Q4H PRN IV SEVERE PAIN LEVEL 7-10 Last administered on 01/08/19 08:54; Admin Dose 2 MG; Start 01/06/19 at 00:30 Ondansetron HCl (Zofran Inj) 4 mg Q6H PRN IV NAUSEA AND/OR VOMITING; Start 01/06/19 at 00:30 Pantoprazole (Protonix Iv) 40 mg BID@06,18 IV Last administered on 01/08/19 05:53; Admin Dose 40 MG; Start 01/06/19 at 06:00 Allopurinol (Zyloprim) 100 mg DAILY PO Last administered on 01/08/19 08:54; Admin Dose 100 MG; Start 01/07/19 at 09:00 Docusate Sodium (Colace) 200 mg QHS PO Last administered on 01/06/19 21:23; Admin Dose 200 MG; Start 01/06/19 at 21:00 Ferrous Sulfate (Ferrous Sulfate (Ec)) 325 mg DAILY PO Last administered on 01/08/19 08:55; Admin Dose 325 MG; Start 01/07/19 at 09:00 Folic Acid (Folic Acid) 1 mg DAILY PO Last administered on 01/08/19 08:54; Admin Dose 1 MG; Start 01/07/19 at 09:00 Gabapentin (Neurontin) 100 mg TID PO Last administered on 01/08/19 12:25; Admin Dose 100 MG; Start 01/06/19 at 21:00 Levothyroxine Sodium (Synthroid) 200 mcg BEFORE BREAKFAST PO Last administered on 01/08/19 05:52; Admin Dose 200 MCG; Start 01/07/19 at 07:00 Metoprolol Succinate (Toprol Xl) 100 mg DAILY PO Last administered on 01/08/19 08:54; Admin Dose 100 MG; Start 01/07/19 at 09:00 Spironolactone (Aldactone) 50 mg DAILY PO Last administered on 01/08/19 08:54; Admin Dose 50 MG; Start 01/07/19 at 09:00 Tamsulosin HCl (Flomax) 0.4 mg DAILY PO Last administered on 01/08/19 08:54; Admin Dose 0.4 MG; Start 01/07/19 at 09:00 Albuterol/ Ipratropium (Duoneb) 3 ml Q6H RESP THERAPY HHN Last administered on 01/08/19 13:41; Admin Dose 3 ML; Start 01/06/19 at 20:00 Albuterol/ Ipratropium (Duoneb) 3 ml Q4H RESP THERAPY PRN HHN SHORTNESS OF BREATH; Start 01/06/19 at 16:30 Lorazepam (Ativan) 0.5 mg Q6H PRN PO ANXIETY Last administered on 01/07/19 17:34; Admin Dose 0.5 MG; Start 01/06/19 at 21:00 Azithromycin (Zithromax) 250 mg DAILY PO Last administered on 01/08/19 08:54; Admin Dose 250 MG; Start 01/07/19 at 12:00 Hydralazine HCl (Apresoline) 10 mg Q4H PRN IV SBP>170; Start 01/07/19 at 16:30 Multivitamins 10 ml/Thiamine HCl 100 mg/Folic Acid 1 mg/Sodium Chloride 1,011.2 ml @ 50 mls/hr DAILY@09 IVPB Last administered on 01/08/19 08:53; Admin Dose 50 MLS/HR; Start 01/08/19 at 09:00 Arformoterol Tartrate (Brovana (Neb)) 2 ml BID RESP THERAPY INH Last administered on 01/08/19 09:20; Admin Dose 2 ML; Start 01/07/19 at 20:00 Budesonide (Pulmicort (Neb)) 0.5 mg Q12H RESP THERAPY INH Last administered on 01/08/19at 09:11; Admin Dose 0.5 MG; Start 01/07/19 at 20:00 Furosemide (Lasix) 20 mg BID DIURETICS PO Last administered on 01/08/19at 05:53; Admin Dose 20 MG; Start 01/08/19 at 06:00 ELADIO DELGADO MD Jan 08, 2019 14:42
--- NOTE | 2019-01-08 15:25 | PN ---
Date/Time of Note Date/Time of Note DATE: 01/08/19 TIME: 15:20 Assessment/Plan VTE Prophylaxis Risk score (from [facility] [place])>0 risk: 4 SCD applied (from [facility] [place]): Yes Pharmacological prophylaxis: NA/contraindicated Pharm contraindication: liver dx, thrombocytopenia Lines/Catheters IV Catheter Type (from [facility]): Saline Lock Urinary Cath still in place: No Assessment/Plan Hospital Course Patient remains hemodynamically stable, complaints of generalized pain, follow up on 2D echo, plan for EGD and colonoscopy if cleared by cardiology. Assessment/Plan -Acute anemia, status post blood transfusion. -Possible GI bleed, Dr. Mayes is following in gastroenterology consultation. -Acute on chronic diastolic congestive heart failure. Continue Lasix. Dr. Ofelia dsouza is following in cardiology consultation. -COPD exacerbation, continue bronchodilators, steroids, and oxygen supplementation. -Hyponatremia due to liver cirrhosis, resolved. -Alcoholic liver cirrhosis -Acute kidney injury on chronic kidney disease. Dr. Leung is following in nephrology consultation. -Left foot ulcer. Dr. Hallman is following in podiatry consultation. Further recommendations based on clinical course. Plan of care discussed with Dr. Lara. Result Diagram: 01/08/19 0623 01/08/19 0623 Results 24hrs Laboratory Tests Test 01/07/19 18:51 01/07/19 20:00 01/08/19 00:22 01/08/19 06:23 Creatine Kinase 40 33 30 Creatine Kinase Index 4.6 6.0 5.6 Creatinine Kinase MB 1.85 1.98 1.68 (Mass) Troponin I 0.025 0.044 0.028 Stool Occult Blood NEGATIVE White Blood Count 6.6 # Red Blood Count 3.58 L Hemoglobin 7.4 L Hematocrit 27.6 L Mean Corpuscular Volume 77.1 L Mean Corpuscular 20.7 L Hemoglobin Mean Corpuscular 26.8 L Hemoglobin Concent Red Cell Distribution 22.5 H Width Platelet Count 99 L Mean Platelet Volume Immature Granulocytes % 1.700 H Neutrophils % Segmented Neutrophils 64 % (Manual) Band Neutrophils % 2 (Manual) Lymphocytes % Lymphocytes % (Manual) 19 Reactive Lymphocytes 1 H % (Manual) Monocytes % Monocytes % (Manual) 13 H Eosinophils % Eosinophils % (Manual) 1 Basophils % Nucleated Red Blood 1 H Cells % Immature Granulocytes # 0.110 H Neutrophils # Neutrophils # (Manual) 4.2 Band Neutrophils # 0.1 Lymphocytes (Manual) 1.2 Lymphocytes # Reactive Lymphocytes # 0.0 Monocytes # Monocytes # (Manual) 0.8 Eosinophils # Basophils # Nucleated Red Blood Cells # Platelet Estimate DECREASED Hypochromasia 3+ Poikilocytosis 1+ Anisocytosis 2+ Microcytosis 2+ Macrocytosis 1+ Sodium Level 140 Potassium Level 4.7 Chloride Level 104 Carbon Dioxide Level 25 Anion Gap 11 Blood Urea Nitrogen 71 H Creatinine 1.84 H Est Glomerular Filtrat 38 L Rate mL/min Glucose Level 98 Calcium Level 8.5 Magnesium Level 2.3 Triglycerides Level 50 Cholesterol Level 99 L LDL Cholesterol, 46 Calculated HDL Cholesterol 43 Cholesterol/HDL Ratio 2.3 Exam/Review of Systems Exam Vitals Vital Signs Date Temp Pulse Resp B/P (MAP) Pulse Ox O2 O2 Flow FiO2 Time Delivery Rate 01/08/19 98.3 94 18 123/60 97 Room Air 15:10 (81) 01/08/19 0.0 13:42 01/08/19 32 13:42 Intake and Output 01/07/19 01/07/19 01/08/19 1515:00 23:00 07:00 IntakeIntake Total 880 ml 500 ml OutputOutput Total 1550 ml 1200 ml BalanceBalance -670 ml -700 ml Exam Constitutional: alert, oriented Respiratory: diminished breath sounds, wheezing Cardiovascular: regular rate and rhythm Gastrointestinal: soft, non-tender, bowel sounds, distended Musculoskeletal: nl extremities to inspection Extremities: normal pulses, edema, other Neurological: nl mental status Skin: other (Left plantar foot ulcer) Results Results 24hrs Laboratory Tests Test 01/07/19 18:51 01/07/19 20:00 01/08/19 00:22 01/08/19 06:23 Creatine Kinase 40 33 30 Creatine Kinase Index 4.6 6.0 5.6 Creatinine Kinase MB 1.85 1.98 1.68 (Mass) Troponin I 0.025 0.044 0.028 Stool Occult Blood NEGATIVE White Blood Count 6.6 # Red Blood Count 3.58 L Hemoglobin 7.4 L Hematocrit 27.6 L Mean Corpuscular Volume 77.1 L Mean Corpuscular 20.7 L Hemoglobin Mean Corpuscular 26.8 L Hemoglobin Concent Red Cell Distribution 22.5 H Width Platelet Count 99 L Mean Platelet Volume Immature Granulocytes % 1.700 H Neutrophils % Segmented Neutrophils 64 % (Manual) Band Neutrophils % 2 (Manual) Lymphocytes % Lymphocytes % (Manual) 19 Reactive Lymphocytes 1 H % (Manual) Monocytes % Monocytes % (Manual) 13 H Eosinophils % Eosinophils % (Manual) 1 Basophils % Nucleated Red Blood 1 H Cells % Immature Granulocytes # 0.110 H Neutrophils # Neutrophils # (Manual) 4.2 Band Neutrophils # 0.1 Lymphocytes (Manual) 1.2 Lymphocytes # Reactive Lymphocytes # 0.0 Monocytes # Monocytes # (Manual) 0.8 Eosinophils # Basophils # Nucleated Red Blood Cells # Platelet Estimate DECREASED Hypochromasia 3+ Poikilocytosis 1+ Anisocytosis 2+ Microcytosis 2+ Macrocytosis 1+ Sodium Level 140 Potassium Level 4.7 Chloride Level 104 Carbon Dioxide Level 25 Anion Gap 11 Blood Urea Nitrogen 71 H Creatinine 1.84 H Est Glomerular Filtrat 38 L Rate mL/min Glucose Level 98 Calcium Level 8.5 Magnesium Level 2.3 Triglycerides Level 50 Cholesterol Level 99 L LDL Cholesterol, 46 Calculated HDL Cholesterol 43 Cholesterol/HDL Ratio 2.3 Medications Medication Current Medications Morphine Sulfate (morphine) 2 mg Q4H PRN IV SEVERE PAIN LEVEL 7-10 Last administered on 01/08/19 08:54; Admin Dose 2 MG; Start 01/06/19 at 00:30 Ondansetron HCl (Zofran Inj) 4 mg Q6H PRN IV NAUSEA AND/OR VOMITING; Start 01/06/19 at 00:30 Pantoprazole (Protonix Iv) 40 mg BID@06,18 IV Last administered on 01/08/19 05:53; Admin Dose 40 MG; Start 01/06/19 at 06:00 Allopurinol (Zyloprim) 100 mg DAILY PO Last administered on 01/08/19 08:54; Admin Dose 100 MG; Start 01/07/19 at 09:00 Docusate Sodium (Colace) 200 mg QHS PO Last administered on 01/06/19 21:23; Admin Dose 200 MG; Start 01/06/19 at 21:00 Ferrous Sulfate (Ferrous Sulfate (Ec)) 325 mg DAILY PO Last administered on 01/08/19 08:55; Admin Dose 325 MG; Start 01/07/19 at 09:00 Folic Acid (Folic Acid) 1 mg DAILY PO Last administered on 01/08/19 08:54; Admin Dose 1 MG; Start 01/07/19 at 09:00 Gabapentin (Neurontin) 100 mg TID PO Last administered on 01/08/19 12:25; Admin Dose 100 MG; Start 01/06/19 at 21:00 Levothyroxine Sodium (Synthroid) 200 mcg BEFORE BREAKFAST PO Last administered on 01/08/19 05:52; Admin Dose 200 MCG; Start 01/07/19 at 07:00 Metoprolol Succinate (Toprol Xl) 100 mg DAILY PO Last administered on 01/08/19 08:54; Admin Dose 100 MG; Start 01/07/19 at 09:00 Spironolactone (Aldactone) 50 mg DAILY PO Last administered on 01/08/19 08:54; Admin Dose 50 MG; Start 01/07/19 at 09:00 Tamsulosin HCl (Flomax) 0.4 mg DAILY PO Last administered on 01/08/19 08:54; Admin Dose 0.4 MG; Start 01/07/19 at 09:00 Albuterol/ Ipratropium (Duoneb) 3 ml Q6H RESP THERAPY HHN Last administered on 01/08/19 13:41; Admin Dose 3 ML; Start 01/06/19 at 20:00 Albuterol/ Ipratropium (Duoneb) 3 ml Q4H RESP THERAPY PRN HHN SHORTNESS OF BREATH; Start 01/06/19 at 16:30 Lorazepam (Ativan) 0.5 mg Q6H PRN PO ANXIETY Last administered on 01/07/19 17:34; Admin Dose 0.5 MG; Start 01/06/19 at 21:00 Azithromycin (Zithromax) 250 mg DAILY PO Last administered on 01/08/19 08:54; Admin Dose 250 MG; Start 01/07/19 at 12:00 Hydralazine HCl (Apresoline) 10 mg Q4H PRN IV SBP>170; Start 01/07/19 at 16:30 Multivitamins 10 ml/Thiamine HCl 100 mg/Folic Acid 1 mg/Sodium Chloride 1,011.2 ml @ 50 mls/hr DAILY@09 IVPB Last administered on 01/08/19 08:53; Admin Dose 50 MLS/HR; Start 01/08/19 at 09:00 Arformoterol Tartrate (Brovana (Neb)) 2 ml BID RESP THERAPY INH Last administered on 01/08/19 09:20; Admin Dose 2 ML; Start 01/07/19 at 20:00 Budesonide (Pulmicort (Neb)) 0.5 mg Q12H RESP THERAPY INH Last administered on 01/08/19 09:11; Admin Dose 0.5 MG; Start 01/07/19 at 20:00 Furosemide (Lasix) 20 mg BID DIURETICS PO Last administered on 01/08/19at 05:53; Admin Dose 20 MG; Start 01/08/19 at 06:00 MILLICENT GOVEA Jan 08, 2019 15:25
--- NOTE | 2019-01-08 18:18 | CONS ---
Assessment/Plan Assessment/Plan Hospital Course (Demo Recall) IMPRESSION: 1. Congestive heart failure exacerbation would be diastolic by previous echo, acute on chronic.-neg trop x 3 2. Hypertension, mildly elevated 3. Shortness of breath secondary to #1. 4. Renal failure. 5. Cirrhosis. 6. Hypothyroidism. 7. History of EtOH abuse. Recc: -Tele -Continue lasix/aldactone and follow volume status/ascites closely -Continue BB -Continue bronchodilators -Continue banana bag Consultation Date/Type/Reason Admit Date/Time Jan 05, 2019 at 17:47 Initial Consult Date 01/06/19 Type of Consult Cardiology Reason for Consultation CHF Requesting Provider: KOKO MARLOW MD Date/Time of Note DATE: 01/08/19 TIME: 18:15 Exam/Review of Systems Vital Signs Vitals Vital Signs Date Temp Pulse Resp B/P (MAP) Pulse Ox O2 O2 Flow FiO2 Time Delivery Rate 01/08/19 82 16:39 01/08/19 98.3 18 123/60 97 Room Air 15:10 (81) 01/08/19 0.0 13:42 01/08/19 32 13:42 Intake and Output 01/07/19 01/07/19 01/08/19 1515:00 23:00 07:00 IntakeIntake Total 880 ml 500 ml OutputOutput Total 1550 ml 1200 ml BalanceBalance -670 ml -700 ml Exam Exam Review of Systems: CONSTITUTIONAL: No fevers, chills. PULMONARY: No sob CARDIOVASCULAR: No chest pain/palpitations GASTROINTESTINAL: No nausea/vomiting. GENITOURINARY: No hematuria/dysuria. MUSCULOSKELETAL: No myagias/arthalgias. PSYCHIATRIC: The patient denies depression. NEUROLOGIC: No weakness Constitutional: alert Psych: no complaints Head: normocephalic ENMT: mucosa pink and moist Neck: supple, jvd (9 cm water) Respiratory: diminished breath sounds (at bases/B) Cardiovascular: regular rate and rhythm Gastrointestinal: soft, distended (mildly) Extremities: pitting pedal edema (trace with thickening of skin) Neurological: other (No focal deficits) Labs Result Diagram: 01/08/19 0623 01/08/19 0623 Results 24hrs Laboratory Tests Test 01/07/19 18:51 01/07/19 20:00 01/08/19 00:22 01/08/19 06:23 Creatine Kinase 40 33 30 Creatine Kinase Index 4.6 6.0 5.6 Creatinine Kinase MB 1.85 1.98 1.68 (Mass) Troponin I 0.025 0.044 0.028 Stool Occult Blood NEGATIVE White Blood Count 6.6 # Red Blood Count 3.58 L Hemoglobin 7.4 L Hematocrit 27.6 L Mean Corpuscular Volume 77.1 L Mean Corpuscular 20.7 L Hemoglobin Mean Corpuscular 26.8 L Hemoglobin Concent Red Cell Distribution 22.5 H Width Platelet Count 99 L Mean Platelet Volume Immature Granulocytes % 1.700 H Neutrophils % Segmented Neutrophils 64 % (Manual) Band Neutrophils % 2 (Manual) Lymphocytes % Lymphocytes % (Manual) 19 Reactive Lymphocytes 1 H % (Manual) Monocytes % Monocytes % (Manual) 13 H Eosinophils % Eosinophils % (Manual) 1 Basophils % Nucleated Red Blood 1 H Cells % Immature Granulocytes # 0.110 H Neutrophils # Neutrophils # (Manual) 4.2 Band Neutrophils # 0.1 Lymphocytes (Manual) 1.2 Lymphocytes # Reactive Lymphocytes # 0.0 Monocytes # Monocytes # (Manual) 0.8 Eosinophils # Basophils # Nucleated Red Blood Cells # Platelet Estimate DECREASED Hypochromasia 3+ Poikilocytosis 1+ Anisocytosis 2+ Microcytosis 2+ Macrocytosis 1+ Sodium Level 140 Potassium Level 4.7 Chloride Level 104 Carbon Dioxide Level 25 Anion Gap 11 Blood Urea Nitrogen 71 H Creatinine 1.84 H Est Glomerular Filtrat 38 L Rate mL/min Glucose Level 98 Calcium Level 8.5 Magnesium Level 2.3 Triglycerides Level 50 Cholesterol Level 99 L LDL Cholesterol, 46 Calculated HDL Cholesterol 43 Cholesterol/HDL Ratio 2.3 Medications Medications Current Medications Morphine Sulfate (morphine) 2 mg Q4H PRN IV SEVERE PAIN LEVEL 7-10 Last administered on 01/08/19at 08:54; Admin Dose 2 MG; Start 01/06/19 at 00:30 Ondansetron HCl (Zofran Inj) 4 mg Q6H PRN IV NAUSEA AND/OR VOMITING; Start 01/06/19 at 00:30 Pantoprazole (Protonix Iv) 40 mg BID@06,18 IV Last administered on 01/08/19at 17:44; Admin Dose 40 MG; Start 01/06/19 at 06:00 Allopurinol (Zyloprim) 100 mg DAILY PO Last administered on 01/08/19 08:54; Admin Dose 100 MG; Start 01/07/19 at 09:00 Docusate Sodium (Colace) 200 mg QHS PO Last administered on 01/06/19 21:23; Admin Dose 200 MG; Start 01/06/19 at 21:00 Ferrous Sulfate (Ferrous Sulfate (Ec)) 325 mg DAILY PO Last administered on 01/08/19 08:55; Admin Dose 325 MG; Start 01/07/19 at 09:00 Folic Acid (Folic Acid) 1 mg DAILY PO Last administered on 01/08/19 08:54; Admin Dose 1 MG; Start 01/07/19 at 09:00 Gabapentin (Neurontin) 100 mg TID PO Last administered on 01/08/19 12:25; Admin Dose 100 MG; Start 01/06/19 at 21:00 Levothyroxine Sodium (Synthroid) 200 mcg BEFORE BREAKFAST PO Last administered on 01/08/19 05:52; Admin Dose 200 MCG; Start 01/07/19 at 07:00 Metoprolol Succinate (Toprol Xl) 100 mg DAILY PO Last administered on 01/08/19 08:54; Admin Dose 100 MG; Start 01/07/19 at 09:00 Spironolactone (Aldactone) 50 mg DAILY PO Last administered on 01/08/19 08:54; Admin Dose 50 MG; Start 01/07/19 at 09:00 Tamsulosin HCl (Flomax) 0.4 mg DAILY PO Last administered on 01/08/19 08:54; Admin Dose 0.4 MG; Start 01/07/19 at 09:00 Albuterol/ Ipratropium (Duoneb) 3 ml Q6H RESP THERAPY HHN Last administered on 01/08/19 13:41; Admin Dose 3 ML; Start 01/06/19 at 20:00 Albuterol/ Ipratropium (Duoneb) 3 ml Q4H RESP THERAPY PRN HHN SHORTNESS OF BREATH; Start 01/06/19 at 16:30 Lorazepam (Ativan) 0.5 mg Q6H PRN PO ANXIETY Last administered on 01/07/19 17:34; Admin Dose 0.5 MG; Start 01/06/19 at 21:00 Azithromycin (Zithromax) 250 mg DAILY PO Last administered on 01/08/19 08:54; Admin Dose 250 MG; Start 01/07/19 at 12:00 Hydralazine HCl (Apresoline) 10 mg Q4H PRN IV SBP>170; Start 01/07/19 at 16:30 Multivitamins 10 ml/Thiamine HCl 100 mg/Folic Acid 1 mg/Sodium Chloride 1,011.2 ml @ 50 mls/hr DAILY@09 IVPB Last administered on 01/08/19 08:53; Admin Dose 50 MLS/HR; Start 01/08/19 at 09:00 Arformoterol Tartrate (Brovana (Neb)) 2 ml BID RESP THERAPY INH Last administered on 01/08/19 09:20; Admin Dose 2 ML; Start 01/07/19 at 20:00 Budesonide (Pulmicort (Neb)) 0.5 mg Q12H RESP THERAPY INH Last administered on 01/08/19 09:11; Admin Dose 0.5 MG; Start 01/07/19 at 20:00 Furosemide (Lasix) 20 mg BID DIURETICS PO Last administered on 01/08/19 17:45; Admin Dose 20 MG; Start 01/08/19 at 06:00 DUSTY CANTU Jan 08, 2019 18:18
--- NOTE | 2019-01-08 20:01 | RADRPT ---
Echocardiogram Report Patient Name: ELODIA MASCORROPatient ID: [id number] : 1955 (63y 6m)Study Date: 01/08/2019 9:10:51 AM Gender: MAccession #: [id number] Tech: LE Location: Ref.Physician: DUSTY FOLEY Height(Cm): BSA: Weight(Kg): Quality: GoodAccount #: Procedures: Echocardiographic Report: Transthoracic echocardiogram with complete 2D, M-Mode, and doppler examination. Indications: Congestive Heart Failure. Measurements: 2D/M Mode Doppler Measurement Value Normal Range Measurement Value Normal Range AoR Diam MM 3.2 [ 2.6 - 3.4 ] cm SCOT Vmax 2.1 [ 2.0 - 4.0 ] cm2 ACS MM 2.2 [ 3.1 - 3.7 ] cm AV Mean Aristeo 1.2 [ 70.0 - 90.0 ] cm/sec LA/Ao MM 1.6 ratio AV Mean PG 6.0 [ 2.0 - 4.0 ] mmHg LA Dimen MM 5.2 AV Peak Aristeo 1.7 [ 100.0 - 170.0 ] cm/sec LVIDd 2D 5.3 [ 4.2 - 5.8 ] cm AV Peak PG 11.0 [ 2.0 - 9.0 ] mmHg LVIDs 2D 3.6 [ 2.5 - 4.0 ] cm AV VTI 33.3 cm LVPWd 2D 1.3 [ 0.6 - 1.0 ] cm LVOT Peak Aristeo 1.1 [ 70.0 - 110.0 ] cm/sec IVSd 2D 1.3 [ 0.6 - 1.0 ] cm LVOT Peak PG 5.0 [ 2.0 - 6.0 ] mmHg IVS/LVPW 2D 1.1 ratio MV E Peak Aristeo 1.4 [ 60.0 - 130.0 ] cm/sec EF 2D 60.0 [ 52.0 - 72.0 ] percent MV A Peak Aristeo 1.8 [ 100.0 - 120.0 ] cm/sec LVOT Diam 2.0 [ 2.3 - 2.9 ] cm MV E/A 0.8 [ 0.8 - 1.5 ] ratio LVOT Area 3.1 cm2 MV Decel Time 254 [ 104 - 258 ] msec Lat E` Aristeo 0.1 [ 10.0 - 15.0 ] cm/sec Med E` Aristeo 0.1 cm/sec MV E/A 0.8 [ 0.8 - 1.5 ] ratio PV Peak Aristeo 1.0 [ 40.0 - 80.0 ] cm/sec PV Peak PG 4.0 mmHg Findings: Left Ventricle: Normal left ventricular systolic function. Normal left ventricular cavity size. Mild concentric left ventricular hypertrophy. Ejection fraction is visually estimated at 60 %. Tissue Doppler/Mitral Doppler indices are consistent with impaired relaxation (Stage I diastolic dysfunction). Right Ventricle: Normal right ventricular size. Normal right ventricular systolic function. Left Atrium: There is moderate enlargement of left atrium. Right Atrium: The right atrium is normal in size. Mitral Valve: Mitral valve leaflets appear mildly thickened. Mild mitral annular calcification. Moderate mitral valve regurgitation. Aortic Valve: Normal appearance of the aortic valve. No significant aortic stenosis or insufficiency. Tricuspid Valve: Normal appearance and function of the tricuspid valve with trace physiologic regurgitation. Pulmonic Valve: Normal pulmonic valve appearance. Pericardium: Normal pericardium with no significant pericardial effusion. Aorta: Normal aortic root. IVC: The IVC is not well visualized. Conclusions: Normal left ventricular systolic function. Normal left ventricular cavity size. Mild concentric left ventricular hypertrophy. Ejection fraction is visually estimated at 60 %. Tissue Doppler/Mitral Doppler indices are consistent with impaired relaxation (Stage I diastolic dysfunction). There is moderate enlargement of left atrium. Mitral valve leaflets appear mildly thickened. Mild mitral annular calcification. Moderate mitral valve regurgitation. Normal appearance and function of the tricuspid valve with trace physiologic regurgitation. Electronically Signed By: Dusty Foley 2019-01-08 20:01:34 PDT
[2019-01-08] MEDS: LORAZEPAM 0.5 MG TAB PO PRN (20:05)
[2019-01-08] MEDS: DOCUSATE SODIUM 100 MG CAP PO SCH (20:32)
[2019-01-09] VITALS (11 sets, daily range): BP systolic 134–151; BP diastolic 60–70; PULSE 78–95; RESP 18
[2019-01-09] MEDS: ALBUTEROL/IPRATROPIUM (NEB) 3 ML AMP HHN SCH ×4 (02:19→20:48)
[2019-01-09] MEDS: LORAZEPAM 0.5 MG TAB PO PRN ×3 (02:33→18:53)
[2019-01-09] MEDS: PANTOPRAZOLE 40 MG INJ IV SCH ×2 (06:02→17:14)
[2019-01-09] MEDS: FUROSEMIDE 20 MG TAB PO SCH ×2 (06:02→17:15)
[2019-01-09] MEDS: LEVOTHYROXINE 100 MCG TAB PO SCH (06:02)
[2019-01-09] MEDS: morphine 2 MG INJ IV PRN ×3 (06:06→18:55)
[2019-01-09] MEDS: ALLOPURINOL 100 MG TAB PO SCH (08:26)
[2019-01-09] MEDS: FERROUS SULFATE (EC) 325 MG TAB PO SCH (08:26)
[2019-01-09] MEDS: TAMSULOSIN (SR) 0.4 MG CAP PO SCH (08:26)
[2019-01-09] MEDS: MULTIVITAMINS 10 ML, THIAMINE 100 MG, FOLIC ACID 1 MG in SOD CHLORIDE 0.9% 1,000 ML IVPB SCH (08:26)
[2019-01-09] MEDS: GABAPENTIN 100 MG CAP PO SCH ×3 (08:26→20:38)
[2019-01-09] MEDS: AZITHROMYCIN 250 MG TAB PO SCH (08:27)
[2019-01-09] MEDS: FOLIC ACID 1 MG TAB PO SCH (08:27)
[2019-01-09] MEDS: METOPROLOL (XL) 100 MG TAB PO SCH (08:27)
[2019-01-09] MEDS: SPIRONOLACTONE 50 MG TAB PO SCH (08:27)
[2019-01-09] MEDS: ARFORMOTEROL TARTRATE 15MCG/2 ML AMP INH SCH ×2 (09:00→20:48)
[2019-01-09] MEDS: BUDESONIDE (NEB) 0.5MG/2ML AMP INH SCH ×2 (09:14→20:48)
--- NOTE | 2019-01-09 09:52 | CONS ---
Assessment/Plan Assessment/Plan Assessment/Plan (Daily) 1. acute on chronic renal failure due to Type II hepatorenal syndrome + prerenal azotemia 2. Hyponatremia due to Liver cirrhosis 3. Severe Anemia with Hb 6.5 on admission s/p PRBC 4. Acidosis due to TRENT on CKD 5. Decompensated Liver cirrhosis with Symptomatic ascites 6. H/O HTN 7. h/o Liver cirrhosis with ascites 8. H/o Diastolic CHF Plan: Continue spironolactone, BUN/Cr 71/1.84, s/p IV albumin x 3 doses US guided Paracentesis attempted , not enough fluid to remove Cr improved, but BUN High, Monitor Hb and assess for bleeding will follow up Consultation Date/Type/Reason Admit Date/Time Jan 05, 2019 at 17:47 Initial Consult Date 01/06/19 Type of Consult NEPHROLOGY Requesting Provider: KOKO MARLOW MD Date/Time of Note DATE: 01/09/19 TIME: 09:51 Exam/Review of Systems Exam Vitals Vital Signs Date Temp Pulse Resp B/P (MAP) Pulse Ox O2 O2 Flow FiO2 Time Delivery Rate 01/09/19 3.0 09:15 01/09/19 86 20 96 Nasal 32 09:14 Cannula 01/09/19 98.0 137/62 07:30 (87) Intake and Output 01/08/19 01/08/19 01/09/19 1515:00 23:00 07:00 IntakeIntake Total 1080 ml 940 ml OutputOutput Total 1650 ml 1400 ml BalanceBalance -570 ml -460 ml Exam Constitutional: alert, awake, no acute distress Respiratory: decreased BS at bases, no wheezing Cardiovascular: regular rate and rhythm, nl pulses Gastrointestinal: soft, non-tender, ascites, distended Musculoskeletal: joint tenderness, muscle weakness, swelling Extremities: normal pulses Neurological: Non focal Lymph: nl lymph nodes Results Result Diagram: 01/08/1962201/08/19622 Medications Medication Current Medications Morphine Sulfate (morphine) 2 mg Q4H PRN IV SEVERE PAIN LEVEL 7-10 Last administered on 01/09/19at 06:06; Admin Dose 2 MG; Start 01/06/19 at 00:30 Ondansetron HCl (Zofran Inj) 4 mg Q6H PRN IV NAUSEA AND/OR VOMITING; Start 01/06/19 at 00:30 Pantoprazole (Protonix Iv) 40 mg BID@06,18 IV Last administered on 01/09/19 06:02; Admin Dose 40 MG; Start 01/06/19 at 06:00 Allopurinol (Zyloprim) 100 mg DAILY PO Last administered on 01/09/19 08:26; Admin Dose 100 MG; Start 01/07/19 at 09:00 Docusate Sodium (Colace) 200 mg QHS PO Last administered on 01/06/19 21:23; Admin Dose 200 MG; Start 01/06/19 at 21:00 Ferrous Sulfate (Ferrous Sulfate (Ec)) 325 mg DAILY PO Last administered on 01/09/19 08:26; Admin Dose 325 MG; Start 01/07/19 at 09:00 Folic Acid (Folic Acid) 1 mg DAILY PO Last administered on 01/09/19 08:27; Admin Dose 1 MG; Start 01/07/19 at 09:00 Gabapentin (Neurontin) 100 mg TID PO Last administered on 01/09/19 08:26; Admin Dose 100 MG; Start 01/06/19 at 21:00 Levothyroxine Sodium (Synthroid) 200 mcg BEFORE BREAKFAST PO Last administered on 01/09/19 06:02; Admin Dose 200 MCG; Start 01/07/19 at 07:00 Metoprolol Succinate (Toprol Xl) 100 mg DAILY PO Last administered on 01/09/19 08:27; Admin Dose 100 MG; Start 01/07/19 at 09:00 Spironolactone (Aldactone) 50 mg DAILY PO Last administered on 01/09/19 08:27; Admin Dose 50 MG; Start 01/07/19 at 09:00 Tamsulosin HCl (Flomax) 0.4 mg DAILY PO Last administered on 01/09/19 08:26; Admin Dose 0.4 MG; Start 01/07/19 at 09:00 Albuterol/ Ipratropium (Duoneb) 3 ml Q6H RESP THERAPY HHN Last administered on 01/09/19 09:13; Admin Dose 3 ML; Start 01/06/19 at 20:00 Albuterol/ Ipratropium (Duoneb) 3 ml Q4H RESP THERAPY PRN HHN SHORTNESS OF BREATH; Start 01/06/19 at 16:30 Lorazepam (Ativan) 0.5 mg Q6H PRN PO ANXIETY Last administered on 01/09/19 08:26; Admin Dose 0.5 MG; Start 01/06/19 at 21:00 Azithromycin (Zithromax) 250 mg DAILY PO Last administered on 01/09/19 08:27; Admin Dose 250 MG; Start 01/07/19 at 12:00 Hydralazine HCl (Apresoline) 10 mg Q4H PRN IV SBP>170; Start 01/07/19 at 16:30 Multivitamins 10 ml/Thiamine HCl 100 mg/Folic Acid 1 mg/Sodium Chloride 1,011.2 ml @ 50 mls/hr DAILY@09 IVPB Last administered on 01/09/19 08:26; Admin Dose 50 MLS/HR; Start 01/08/19 at 09:00 Arformoterol Tartrate (Brovana (Neb)) 2 ml BID RESP THERAPY INH Last admini stered on 01/08/19 21:37; Admin Dose 2 ML; Start 01/07/19 at 20:00 Budesonide (Pulmicort (Neb)) 0.5 mg Q12H RESP THERAPY INH Last administered on 01/09/19 09:14; Admin Dose 0.5 MG; Start 01/07/19 at 20:00 Furosemide (Lasix) 20 mg BID DIURETICS PO Last administered on 01/09/19 06:02; Admin Dose 20 MG; Start 01/08/19 at 06:00 ELADIO DELGADO MD Jan 09, 2019 09:52
[2019-01-09] MEDS: ALBUMIN HUMAN 25% 100 ML IV SCH ×2 (11:13→17:17)
--- NOTE | 2019-01-09 13:39 | PN ---
Date/Time of Note Date/Time of Note DATE: 01/09/19 TIME: 13:31 Assessment/Plan VTE Prophylaxis Risk score (from [facility])>0 risk: 2 SCD applied (from [facility]): No SCD contraindicated: other Pharmacological prophylaxis: other Pharm contraindication: other Lines/Catheters IV Catheter Type (from [facility] Saline Lock Urinary Cath still in place: No Assessment/Plan Assessment/Plan - Inflammatory response - ID follows -Acute anemia, status post 2PRBC blood transfusion. -Possible GI bleed, Dr. Mayes is following in gastroenterology consultation. -Acute on chronic diastolic congestive heart failure. Continue Lasix. Dr. Foley is following in cardiology consultation. -COPD exacerbation, continue bronchodilators, steroids, and oxygen supplementati on. -Hyponatremia due to liver cirrhosis, resolved. -Alcoholic liver cirrhosis -Acute kidney injury on chronic kidney disease. Dr. Leung is following in nephrology consultation. -Left foot ulcer. Dr. Hallman is following in podiatry consultation. -Bilateral lower extremities chronic venous stasis - BLE edema - will do venous doppler to r/o any DVT Further recommendations based on clinical course. Plan of care discussed with Dr. Lara. Result Diagram: 01/08/19 0623 01/08/19 0623 Subjective 24 Hr Interval Summary Constitutional: requiring IVF Eyes: no complaints ENT: no complaints Respiratory: no complaints Cardiovascular: no complaints Gastrointestinal: no complaints Genitourinary: no complaints Musculoskeletal: no complaints Skin: erythema (BLE) Neurologic: no complaints Endocrine: no complaints Lymphatic: no complaints Psychological: nl mood/affect Immunologic: no complaints Exam/Review of Systems Exam Vitals Vital Signs Date Temp Pulse Resp B/P (MAP) Pulse Ox O2 O2 Flow FiO2 Time Delivery Rate 01/09/19 81 12:15 01/09/19 98.2 18 150/70 97 Nasal 11:43 (96) Cannula 01/09/19 3.0 09:15 01/09/19 32 09:14 Intake and Output 01/08/19 01/08/19 01/09/19 1515:00 23:00 07:00 IntakeIntake Total 1080 ml 940 ml OutputOutput Total 1650 ml 1400 ml BalanceBalance -570 ml -460 ml Constitutional: alert, well developed Psych: nl mood/affect Eyes: nl lids, nl sclera ENMT: nl external ears & nose Neck: non-tender Respiratory: clear to auscultation Cardiovascular: nl pulses, other (S1S2) Gastrointestinal: soft, non-tender Musculoskeletal: nl extremities to inspection Extremities: normal pulses Neurological: nl mental status, nl speech Skin: other (ERYTHEMA BLE) Lymph: nontender Medications Medication Current Medications Morphine Sulfate (morphine) 2 mg Q4H PRN IV SEVERE PAIN LEVEL 7-10 Last administered on 01/09/19 06:06; Admin Dose 2 MG; Start 01/06/19 at 00:30 Ondansetron HCl (Zofran Inj) 4 mg Q6H PRN IV NAUSEA AND/OR VOMITING; Start 01/06/19 at 00:30 Pantoprazole (Protonix Iv) 40 mg BID@,18 IV Last administered on 01/09/19 06:02; Admin Dose 40 MG; Start 01/06/19 at 06:00 Allopurinol (Zyloprim) 100 mg DAILY PO Last administered on 01/09/19 08:26; Admin Dose 100 MG; Start 01/07/19 at 09:00 Docusate Sodium (Colace) 200 mg QHS PO Last administered on 01/06/19 21:23; Admin Dose 200 MG; Start 01/06/19 at 21:00 Ferrous Sulfate (Ferrous Sulfate (Ec)) 325 mg DAILY PO Last administered on 01/09/19 08:26; Admin Dose 325 MG; Start 01/07/19 at 09:00 Folic Acid (Folic Acid) 1 mg DAILY PO Last administered on 01/09/19 08:27; Admin Dose 1 MG; Start 01/07/19 at 09:00 Gabapentin (Neurontin) 100 mg TID PO Last administered on 01/09/19 13:06; Admin Dose 100 MG; Start 01/06/19 at 21:00 Levothyroxine Sodium (Synthroid) 200 mcg BEFORE BREAKFAST PO Last administered on 01/09/19 06:02; Admin Dose 200 MCG; Start 01/07/19 at 07:00 Metoprolol Succinate (Toprol Xl) 100 mg DAILY PO Last administered on 01/09/19 08:27; Admin Dose 100 MG; Start 01/07/19 at 09:00 Spironolactone (Aldactone) 50 mg DAILY PO Last administered on 01/09/19 08:27; Admin Dose 50 MG; Start 01/07/19 at 09:00 Tamsulosin HCl (Flomax) 0.4 mg DAILY PO Last administered on 01/09/19 08:26; Admin Dose 0.4 MG; Start 01/07/19 at 09:00 Albuterol/ Ipratropium (Duoneb) 3 ml Q6H RESP THERAPY HHN Last administered on 01/09/19 09:13; Admin Dose 3 ML; Start 01/06/19 at 20:00 Albuterol/ Ipratropium (Duoneb) 3 ml Q4H RESP THERAPY PRN HHN SHORTNESS OF BREATH; Start 01/06/19 at 16:30 Lorazepam (Ativan) 0.5 mg Q6H PRN PO ANXIETY Last administered on 01/09/19 08:26; Admin Dose 0.5 MG; Start 01/06/19 at 21:00 Azithromycin (Zithromax) 250 mg DAILY PO Last administered on 01/09/19 08:27; Admin Dose 250 MG; Start 01/07/19 at 12:00 Hydralazine HCl (Apresoline) 10 mg Q4H PRN IV SBP>170; Start 01/07/19 at 16:30 Multivitamins 10 ml/Thiamine HCl 100 mg/Folic Acid 1 mg/Sodium Chloride 1,011.2 ml @ 50 mls/hr DAILY@09 IVPB Last administered on 01/09/19 08:26; Admin Dose 50 MLS/HR; Start 01/08/19 at 09:00 Arformoterol Tartrate (Brovana (Neb)) 2 ml BID RESP THERAPY INH Last administered on 01/08/19 21:37; Admin Dose 2 ML; Start 01/07/19 at 20:00 Budesonide (Pulmicort (Neb)) 0.5 mg Q12H RESP THERAPY INH Last administered on 01/09/19 09:14; Admin Dose 0.5 MG; Start 01/07/19 at 20:00 Furosemide (Lasix) 20 mg BID DIURETICS PO Last administered on 01/09/19 06:02; Admin Dose 20 MG; Start 01/08/19 at 06:00 Albumin Human 100 ml @ 100 mls/hr Q8H IV Last administered on 01/09/19 11:13; Admin Dose 100 MLS/HR; Start 01/09/19 at 10:00; Stop 01/10/19 at 02:59 GO LAMBERT Jan 09, 2019 13:39
--- NOTE | 2019-01-09 15:14 | CONS ---
Assessment/Plan Assessment/Plan Hospital Course (Demo Recall) No acute changes alert, looks comfortable, no fevers Antimicrobials: Zithromax, status post Rocephin dose Chest x-ray on admission revealed cardiomegaly with increased hilar vascular and interstitial congestion and small right pleural effusion. Abdominal ultrasound revealed no free fluid in the abdomen Physical examination: This is a wasted well-developed chronically ill-appearing elderly man who is in no distress. Head atraumatic normocephalic sclera nonicteric. Neck is supple chest rise symmetrical breath sounds diminished bases. Heart: S1-S2. Abdomen soft bowel sounds present. Extremities without cyanosis. Assessment: 1. Systemic inflammatory response syndrome with resolving leukocytosis 2. Possible COPD exacerbation 3. Alcohol abuse 4. Bilateral lower extremities chronic venous stasis 5. Cirrhosis with recurrent ascites 6. Chronic kidney disease 7. CHF Plan: Remains stable, continue present care, dc abx after today's dose Consultation Date/Type/Reason Admit Date/Time Jan 05, 2019 at 17:47 Initial Consult Date 01/06/19 Type of Consult id Requesting Provider: KOKO MARLOW MD Date/Time of Note DATE: 01/09/19 TIME: 15:14 Exam/Review of Systems Exam Vitals Vital Signs Date Temp Pulse Resp B/P (MAP) Pulse Ox O2 O2 Flow FiO2 Time Delivery Rate 01/09/19 98.0 78 18 134/68 97 Room Air 15:11 (90) 01/09/19 3.0 32 14:39 Intake and Output 01/08/19 01/08/19 01/09/19 1414:59 22:59 06:59 IntakeIntake Total 1080 ml 940 ml OutputOutput Total 1650 ml 1400 ml BalanceBalance -570 ml -460 ml Results Result Diagram: 01/08/1962201/08/19622 Medications Medication Current Medications Morphine Sulfate (morphine) 2 mg Q4H PRN IV SEVERE PAIN LEVEL 7-10 Last administered on 01/09/19at 15:11; Admin Dose 2 MG; Start 01/06/19 at 00:30 Ondansetron HCl (Zofran Inj) 4 mg Q6H PRN IV NAUSEA AND/OR VOMITING; Start 01/06/19 at 00:30 Pantoprazole (Protonix Iv) 40 mg BID@18 IV Last administered on 01/09/19 06:02; Admin Dose 40 MG; Start 01/06/19 at 06:00 Allopurinol (Zyloprim) 100 mg DAILY PO Last administered on 01/09/19 08:26; Admin Dose 100 MG; Start 01/07/19 at 09:00 Docusate Sodium (Colace) 200 mg QHS PO Last administered on 01/06/19 21:23; Admin Dose 200 MG; Start 01/06/19 at 21:00 Ferrous Sulfate (Ferrous Sulfate (Ec)) 325 mg DAILY PO Last administered on 01/09/19 08:26; Admin Dose 325 MG; Start 01/07/19 at 09:00 Folic Acid (Folic Acid) 1 mg DAILY PO Last administered on 01/09/19 08:27; Admin Dose 1 MG; Start 01/07/19 at 09:00 Gabapentin (Neurontin) 100 mg TID PO Last administered on 01/09/19 13:06; Admin Dose 100 MG; Start 01/06/19 at 21:00 Levothyroxine Sodium (Synthroid) 200 mcg BEFORE BREAKFAST PO Last administered on 01/09/19 06:02; Admin Dose 200 MCG; Start 01/07/19 at 07:00 Metoprolol Succinate (Toprol Xl) 100 mg DAILY PO Last administered on 01/09/19 08:27; Admin Dose 100 MG; Start 01/07/19 at 09:00 Spironolactone (Aldactone) 50 mg DAILY PO Last administered on 01/09/19 08:27; Admin Dose 50 MG; Start 01/07/19 at 09:00 Tamsulosin HCl (Flomax) 0.4 mg DAILY PO Last administered on 01/09/19 08:26; Admin Dose 0.4 MG; Start 01/07/19 at 09:00 Albuterol/ Ipratropium (Duoneb) 3 ml Q6H RESP THERAPY HHN Last administered on 01/09/19 14:38; Admin Dose 3 ML; Start 01/06/19 at 20:00 Albuterol/ Ipratropium (Duoneb) 3 ml Q4H RESP THERAPY PRN HHN SHORTNESS OF BREATH; Start 01/06/19 at 16:30 Lorazepam (Ativan) 0.5 mg Q6H PRN PO ANXIETY Last administered on 01/09/19 08:26; Admin Dose 0.5 MG; Start 01/06/19 at 21:00 Azithromycin (Zithromax) 250 mg DAILY PO Last administered on 01/09/19 08:27; Admin Dose 250 MG; Start 01/07/19 at 12:00 Hydralazine HCl (Apresoline) 10 mg Q4H PRN IV SBP>170; Start 01/07/19 at 16:30 Multivitamins 10 ml/Thiamine HCl 100 mg/Folic Acid 1 mg/Sodium Chloride 1,011.2 ml @ 50 mls/hr DAILY@09 IVPB Last administered on 01/09/19 08:26; Admin Dose 50 MLS/HR; Start 01/08/19 at 09:00 Arformoterol Tartrate (Brovana (Neb)) 2 ml BID RESP THERAPY INH Last administered on 01/08/19 21:37; Admin Dose 2 ML; Start 01/07/19 at 20:00 Budesonide (Pulmicort (Neb)) 0.5 mg Q12H RESP THERAPY INH Last administered on 01/09/19 09:14; Admin Dose 0.5 MG; Start 01/07/19 at 20:00 Furosemide (Lasix) 20 mg BID DIURETICS PO Last administered on 01/09/19 06:02; Admin Dose 20 MG; Start 01/08/19 at 06:00 Albumin Human 100 ml @ 100 mls/hr Q8H IV Last administered on 01/09/19 11:13; Admin Dose 100 MLS/HR; Start 01/09/19 at 10:00; Stop 01/10/19 at 02:59 MELISSA NASH NP Jan 09, 2019 15:14
--- NOTE | 2019-01-09 15:27 | CONS ---
Assessment/Plan Assessment/Plan Hospital Course (Demo Recall) IMPRESSION: 1. Congestive heart failure exacerbation would be diastolic by previous echo, acute on chronic.-neg trop x 3 2. Hypertension, mildly elevated 3. Shortness of breath secondary to #1. 4. Renal failure. 5. Cirrhosis. 6. Hypothyroidism. 7. History of EtOH abuse. Recc: -Tele -Continue lasix/aldactone and follow volume status/ascites closely -Continue BB -Continue bronchodilators -Continue banana bag -continue abx's and f/u cx data Consultation Date/Type/Reason Admit Date/Time Jan 05, 2019 at 17:47 Initial Consult Date 01/06/19 Type of Consult Cardiology Reason for Consultation CHF Requesting Provider: KOKO MARLOW MD Date/Time of Note DATE: 01/09/19 TIME: 15:26 Exam/Review of Systems Vital Signs Vitals Vital Signs Date Temp Pulse Resp B/P (MAP) Pulse Ox O2 O2 Flow FiO2 Time Delivery Rate 01/09/19 98.0 78 18 134/68 97 Room Air 15:11 (90) 01/09/19 3.0 32 14:39 Intake and Output 01/08/19 01/08/19 01/09/19 1515:00 23:00 07:00 IntakeIntake Total 1080 ml 940 ml OutputOutput Total 1650 ml 1400 ml BalanceBalance -570 ml -460 ml Exam Exam Review of Systems: CONSTITUTIONAL: No fevers, chills. PULMONARY: No sob CARDIOVASCULAR: No chest pain/palpitations GASTROINTESTINAL: No nausea/vomiting. GENITOURINARY: No hematuria/dysuria. MUSCULOSKELETAL: No myagias/arthalgias. PSYCHIATRIC: The patient denies depression. NEUROLOGIC: No weakness Constitutional: alert Psych: no complaints Head: normocephalic ENMT: mucosa pink and moist Neck: supple, jvd (9 cm water) Respiratory: clear to auscultation Cardiovascular: regular rate and rhythm Gastrointestinal: soft, non-tender, distended (mildly) Musculoskeletal: muscle tone (norml) Extremities: edema (trace/B with thickening of skin) Neurological: other (No focal deficits) Labs Result Diagram: 01/08/1962201/08/19622 Medications Medications Current Medications Morphine Sulfate (morphine) 2 mg Q4H PRN IV SEVERE PAIN LEVEL 7-10 Last administered on 01/09/19 15:11; Admin Dose 2 MG; Start 01/06/19 at 00:30 Ondansetron HCl (Zofran Inj) 4 mg Q6H PRN IV NAUSEA AND/OR VOMITING; Start 01/06/19 at 00:30 Pantoprazole (Protonix Iv) 40 mg BID@06,18 IV Last administered on 01/09/19 06:02; Admin Dose 40 MG; Start 01/06/19 at 06:00 Allopurinol (Zyloprim) 100 mg DAILY PO Last administered on 01/09/19 08:26; Admin Dose 100 MG; Start 01/07/19 at 09:00 Docusate Sodium (Colace) 200 mg QHS PO Last administered on 01/06/19 21:23; Adm in Dose 200 MG; Start 01/06/19 at 21:00 Ferrous Sulfate (Ferrous Sulfate (Ec)) 325 mg DAILY PO Last administered on 01/09/19 08:26; Admin Dose 325 MG; Start 01/07/19 at 09:00 Folic Acid (Folic Acid) 1 mg DAILY PO Last administered on 01/09/19 08:27; Admin Dose 1 MG; Start 01/07/19 at 09:00 Gabapentin (Neurontin) 100 mg TID PO Last administered on 01/09/19 13:06; Admin Dose 100 MG; Start 01/06/19 at 21:00 Levothyroxine Sodium (Synthroid) 200 mcg BEFORE BREAKFAST PO Last administered on 01/09/19 06:02; Admin Dose 200 MCG; Start 01/07/19 at 07:00 Metoprolol Succinate (Toprol Xl) 100 mg DAILY PO Last administered on 01/09/19 08:27; Admin Dose 100 MG; Start 01/07/19 at 09:00 Spironolactone (Aldactone) 50 mg DAILY PO Last administered on 01/09/19 08:27; Admin Dose 50 MG; Start 01/07/19 at 09:00 Tamsulosin HCl (Flomax) 0.4 mg DAILY PO Last administered on 01/09/19 08:26; Admin Dose 0.4 MG; Start 01/07/19 at 09:00 Albuterol/ Ipratropium (Duoneb) 3 ml Q6H RESP THERAPY HHN Last administered on 01/09/19 14:38; Admin Dose 3 ML; Start 01/06/19 at 20:00 Albuterol/ Ipratropium (Duoneb) 3 ml Q4H RESP THERAPY PRN HHN SHORTNESS OF BREATH; Start 01/06/19 at 16:30 Lorazepam (Ativan) 0.5 mg Q6H PRN PO ANXIETY Last administered on 01/09/19 08:26; Admin Dose 0.5 MG; Start 01/06/19 at 21:00 Azithromycin (Zithromax) 250 mg DAILY PO Last administered on 01/09/19 08:27; Admin Dose 250 MG; Start 01/07/19 at 12:00; Stop 01/09/19 at 23:30 Hydralazine HCl (Apresoline) 10 mg Q4H PRN IV SBP>170; Start 01/07/19 at 16:30 Multivitamins 10 ml/Thiamine HCl 100 mg/Folic Acid 1 mg/Sodium Chloride 1,011.2 ml @ 50 mls/hr DAILY@09 IVPB Last administered on 01/09/19 08:26; Admin Dose 50 MLS/HR; Start 01/08/19 at 09:00 Arformoterol Tartrate (Brovana (Neb)) 2 ml BID RESP THERAPY INH Last administered on 01/08/19 21:37; Admin Dose 2 ML; Start 01/07/19 at 20:00 Budesonide (Pulmicort (Neb)) 0.5 mg Q12H RESP THERAPY INH Last administered on 01/09/19 09:14; Admin Dose 0.5 MG; Start 01/07/19 at 20:00 Furosemide (Lasix) 20 mg BID DIURETICS PO Last administered on 01/09/19 06:02; Admin Dose 20 MG; Start 01/08/19 at 06:00 Albumin Human 100 ml @ 100 mls/hr Q8H IV Last administered on 01/09/19 11:13; Admin Dose 100 MLS/HR; Start 01/09/19 at 10:00; Stop 01/10/19 at 02:59 DUSTY CANTU Jan 09, 2019 15:27
--- NOTE | 2019-01-09 18:05 | CONS ---
Assessment/Plan Assessment/Plan Assessment/Plan (Daily) Assessment/Plan (Daily) Assessment/Plan (Daily) IMPRESSION: 1. Microcytic hypochromic anemia, most probably related to iron deficiency. 2. 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 3. Nicotine addiction. 4. Congestive heart failure. 5. Chronic obstructive pulmonary disease. 6. Renal failure. Plan Patient ferritin is 33 which is low for his condition. Patient definitely needs EGD and colonoscopy. We will proceed with the procedure once his condition is stable We will review 2D echo once he is done. And once he is cleared cleared by mine environmental engineer will proceed with EGD and colonoscopy Consultation Date/Type/Reason Admit Date/Time Jan 05, 2019 at 17:47 Initial Consult Date 01/06/19 Requesting Provider: KOKO MARLOW MD Date/Time of Note DATE: 01/09/19 TIME: 18:05 24 HR Interval Summary Free Text/Dictation Leg pain Exam/Review of Systems Exam Vitals Vital Signs Date Temp Pulse Resp B/P (MAP) Pulse Ox O2 O2 Flow FiO2 Time Delivery Rate 01/09/19 98.0 78 18 134/68 97 Room Air 15:11 (90) 01/09/19 3.0 32 14:39 Intake and Output 01/08/19 01/08/19 01/09/19 1515:00 23:00 07:00 IntakeIntake Total 1080 ml 940 ml OutputOutput Total 1650 ml 1400 ml BalanceBalance -570 ml -460 ml Constitutional: alert Head: No normocephalic, No atraumatic, No lacerations, No hematomas, No other Eyes: nl conjunctiva, EOMI, nl lids, nl sclera, PERRL Respiratory: diminished breath sounds Extremities: normal pulses Results Result Diagram: 01/08/1962201/08/19622 Medications Medication Current Medications Morphine Sulfate (morphine) 2 mg Q4H PRN IV SEVERE PAIN LEVEL 7-10 Last administered on 01/09/19at 15:11; Admin Dose 2 MG; Start 01/06/19 at 00:30 Ondansetron HCl (Zofran Inj) 4 mg Q6H PRN IV NAUSEA AND/OR VOMITING; Start 01/06/19 at 00:30 Pantoprazole (Protonix Iv) 40 mg BID@06,18 IV Last administered on 4/5/19at 17:14; Admin Dose 40 MG; Start 01/06/19 at 06:00 Allopurinol (Zyloprim) 100 mg DAILY PO Last administered on 01/09/19 08:26; Admin Dose 100 MG; Start 01/07/19 at 09:00 Docusate Sodium (Colace) 200 mg QHS PO Last administered on 01/06/19 21:23; Admin Dose 200 MG; Start 01/06/19 at 21:00 Ferrous Sulfate (Ferrous Sulfate (Ec)) 325 mg DAILY PO Last administered on 01/09/19 08:26; Admin Dose 325 MG; Start 01/07/19 at 09:00 Folic Acid (Folic Acid) 1 mg DAILY PO Last administered on 01/09/19 08:27; Admin Dose 1 MG; Start 01/07/19 at 09:00 Gabapentin (Neurontin) 100 mg TID PO Last administered on 01/09/19 13:06; Admin Dose 100 MG; Start 01/06/19 at 21:00 Levothyroxine Sodium (Synthroid) 200 mcg BEFORE BREAKFAST PO Last administered on 01/09/19 06:02; Admin Dose 200 MCG; Start 01/07/19 at 07:00 Metoprolol Succinate (Toprol Xl) 100 mg DAILY PO Last administered on 01/09/19 08:27; Admin Dose 100 MG; Start 01/07/19 at 09:00 Spironolactone (Aldactone) 50 mg DAILY PO Last administered on 01/09/19 08:27; Admin Dose 50 MG; Start 01/07/19 at 09:00 Tamsulosin HCl (Flomax) 0.4 mg DAILY PO Last administered on 01/09/19 08:26; Admin Dose 0.4 MG; Start 01/07/19 at 09:00 Albuterol/ Ipratropium (Duoneb) 3 ml Q6H RESP THERAPY HHN Last administered on 01/09/19 14:38; Admin Dose 3 ML; Start 01/06/19 at 20:00 Albuterol/ Ipratropium (Duoneb) 3 ml Q4H RESP THERAPY PRN HHN SHORTNESS OF BREATH; Start 01/06/19 at 16:30 Lorazepam (Ativan) 0.5 mg Q6H PRN PO ANXIETY Last administered on 01/09/19 08:26; Admin Dose 0.5 MG; Start 01/06/19 at 21:00 Azithromycin (Zithromax) 250 mg DAILY PO Last administered on 01/09/19 08:27; Admin Dose 250 MG; Start 01/07/19 at 12:00; Stop 01/09/19 at 23:30 Hydralazine HCl (Apresoline) 10 mg Q4H PRN IV SBP>170; Start 01/07/19 at 16:30 Multivitamins 10 ml/Thiamine HCl 100 mg/Folic Acid 1 mg/Sodium Chloride 1,011.2 ml @ 50 mls/hr DAILY@09 IVPB Last administered on 01/09/19 08:26; Admin Dose 50 MLS/HR; Start 01/08/19 at 09:00 Arformoterol Tartrate (Brovana (Neb)) 2 ml BID RESP THERAPY INH Last administered on 01/08/19 21:37; Admin Dose 2 ML; Start 01/07/19 at 20:00 Budesonide (Pulmicort (Neb)) 0.5 mg Q12H RESP THERAPY INH Last administered on 01/09/19 09:14; Admin Dose 0.5 MG; Start 01/07/19 at 20:00 Furosemide (Lasix) 20 mg BID DIURETICS PO Last administered on 01/09/19 17:15; Admin Dose 20 MG; Start 01/08/19 at 06:00 Albumin Human 100 ml @ 100 mls/hr Q8H IV Last administered on 01/09/19 17:17; Admin Dose 100 MLS/HR; Start 01/09/19 at 10:00; Stop 01/10/19 at 02:59 CHLOÉ TORRE MD Jan 09, 2019 18:05
[2019-01-09] MEDS: DOCUSATE SODIUM 100 MG CAP PO SCH (20:38)
[2019-01-09] MEDS: HYDROmorphONE 0.5 MG/0.5 ML SYG IV PRN (21:18)
[2019-01-10] VITALS (10 sets, daily range): BP systolic 126–144; BP diastolic 61–66; PULSE 76–90; RESP 18–19
[2019-01-10] MEDS: ALBUMIN HUMAN 25% 100 ML IV SCH (02:18)
[2019-01-10] MEDS: ALBUTEROL/IPRATROPIUM (NEB) 3 ML AMP HHN SCH ×4 (03:09→20:01)
[2019-01-10] MEDS: HYDROmorphONE 0.5 MG/0.5 ML SYG IV PRN ×3 (03:14→12:36)
[2019-01-10] MEDS: PANTOPRAZOLE 40 MG INJ IV SCH ×2 (06:14→17:40)
[2019-01-10] MEDS: LEVOTHYROXINE 100 MCG TAB PO SCH (06:15)
[2019-01-10] MEDS: FUROSEMIDE 20 MG TAB PO SCH ×2 (06:17→17:40)
[2019-01-10] MEDS: BUDESONIDE (NEB) 0.5MG/2ML AMP INH SCH ×2 (08:50→20:01)
[2019-01-10] MEDS: FOLIC ACID 1 MG TAB PO SCH (09:04)
[2019-01-10] MEDS: MULTIVITAMINS 10 ML, THIAMINE 100 MG, FOLIC ACID 1 MG in SOD CHLORIDE 0.9% 1,000 ML IVPB SCH (09:04)
[2019-01-10] MEDS: FERROUS SULFATE (EC) 325 MG TAB PO SCH (09:04)
[2019-01-10] MEDS: GABAPENTIN 100 MG CAP PO SCH ×3 (09:04→19:59)
[2019-01-10] MEDS: SPIRONOLACTONE 50 MG TAB PO SCH (09:05)
[2019-01-10] MEDS: TAMSULOSIN (SR) 0.4 MG CAP PO SCH (09:05)
[2019-01-10] MEDS: ALLOPURINOL 100 MG TAB PO SCH (09:05)
[2019-01-10] MEDS: METOPROLOL (XL) 100 MG TAB PO SCH (09:11)
[2019-01-10] MEDS: ARFORMOTEROL TARTRATE 15MCG/2 ML AMP INH SCH ×2 (09:49→20:01)
--- NOTE | 2019-01-10 11:16 | CONS ---
Assessment/Plan Assessment/Plan Assessment/Plan (Daily) IMPRESSION: 1. Microcytic hypochromic anemia, most probably related to iron deficiency. 2. 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 3. Nicotine addiction. 4. Congestive heart failure. 5. Chronic obstructive pulmonary disease. 6. Renal failure. Plan Patient ferritin is 33 which is low for his condition. Patient definitely needs EGD and colonoscopy. We will proceed with the procedure once his condition is stable We will review 2D echo once he is done. And once he is cleared cleared by therapeutic recreation assistant will proceed with EGD and colonoscopy Patient's 2D echo showed ejection fraction of 60% and there was no aortic stenosis His EGD showed a superficial duodenal ulcer and gastritis this was done a few months ago. Patient needs colonoscopy if he is agreeable Consultation Date/Type/Reason Admit Date/Time Jan 05, 2019 at 17:47 Initial Consult Date 01/06/19 Requesting Provider: KOKO MARLOW MD Date/Time of Note DATE: 01/10/19 TIME: 11:16 24 HR Interval Summary Free Text/Dictation Complains of chronic pain in the lower extremity Constitutional: improved Exam/Review of Systems Exam Vitals Vital Signs Date Temp Pulse Resp B/P (MAP) Pulse Ox O2 O2 Flow FiO2 Time Delivery Rate 01/10/19 96 2.0 09:55 01/10/19 84 20 Nasal 09:53 Cannula 01/10/19 97.3 144/66 09:11 (92) 01/10/19 21 08:56 Intake and Output 01/09/19 01/09/19 01/10/19 1515:00 23:00 07:00 IntakeIntake Total 1510 ml 900 ml OutputOutput Total 1550 ml 1100 ml BalanceBalance -40 ml -200 ml Constitutional: alert, oriented, well developed Psych: no complaints, nl mood/affect Head: normocephalic, atraumatic Eyes: nl conjunctiva, EOMI, nl lids, nl sclera, PERRL ENMT: nl external ears & nose, nl lips & teeth, nl nasal mucosa & septum Neck: supple, non-tender Respiratory: clear to auscultation, normal air movement Cardiovascular: regular rate and rhythm, nl pulses Gastrointestinal: soft, nl liver, spleen, non-tender Musculoskeletal: nl extremities to inspection, nl gait and stance Extremities: normal pulses Neurological: HEEL SEAT LASTER II-XII intact, nl mental status, nl speech, nl strength Skin: nl turgor; No rash or lesions Lymph: nl lymph nodes Results Result Diagram: 01/10/1962701/10/19627 Results 24hrs Laboratory Tests Test 01/09/19 21:25 01/10/19 06:28 Urine Opiates Screen Positive Urine Barbiturates Negative Urine Amphetamines Screen Negative Urine Benzodiazepines Screen Negative Urine Cocaine Screen Negative Urine Cannabinoids Negative White Blood Count 6.9 Red Blood Count 3.22 L Hemoglobin 6.7 *L Hematocrit 24.8 L Mean Corpuscular Volume 77.0 L Mean Corpuscular Hemoglobin 20.8 L Mean Corpuscular Hemoglobin Concent 27.0 L Red Cell Distribution Width 21.9 H Platelet Count 84 L Mean Platelet Volume Immature Granulocytes % 0.900 H Neutrophils % Segmented Neutrophils % (Manual) 67 Lymphocytes % Lymphocytes % (Manual) 9 L Monocytes % Monocytes % (Manual) 13 H Eosinophils % Eosinophils % (Manual) 8 H Basophils % Basophils % (Manual) 1 Myelocytes % (Manual) 1 H Plasma Cells % (manual) 1 Nucleated Red Blood Cells % 0.0 Immature Granulocytes # 0.060 H Neutrophils # Lymphocytes (Manual) 0.6 L Lymphocytes # Monocytes # Monocytes # (Manual) 0.8 Eosinophils # Basophils # Basophils # (Manual) 0.0 Myelocytes # 0.0 Plasma Cells # (manual) 0.0 Nucleated Red Blood Cells # Platelet Estimate DECREASED Giant Platelets 1 H Polychromasia 2+ Hypochromasia 3+ Poikilocytosis 2+ Anisocytosis 2+ Microcytosis 1+ Target Cells 1+ Ovalocytes 1+ Schistocytes 1+ Sodium Level 141 Potassium Level 4.5 Chloride Level 107 Carbon Dioxide Level 25 Anion Gap 9 Blood Urea Nitrogen 60 H Creatinine 1.86 H Est Glomerular Filtrat Rate mL/min 37 L Glucose Level 111 Calcium Level 8.6 Medications Medication Current Medications Ondansetron HCl (Zofran Inj) 4 mg Q6H PRN IV NAUSEA AND/OR VOMITING; Start 01/06/19 at 00:30 Pantoprazole (Protonix Iv) 40 mg BID@06,18 IV Last administered on 01/10/19at 06:14; Admin Dose 40 MG; Start 01/06/19 at 06:00 Allopurinol (Zyloprim) 100 mg DAILY PO Last administered on 4/6/19at 09:05; Admin Dose 100 MG; Start 01/07/19 at 09:00 Docusate Sodium (Colace) 200 mg QHS PO Last administered on 01/09/19 20:38; Adm in Dose 200 MG; Start 01/06/19 at 21:00 Ferrous Sulfate (Ferrous Sulfate (Ec)) 325 mg DAILY PO Last administered on 01/10/19 09:04; Admin Dose 325 MG; Start 01/07/19 at 09:00 Folic Acid (Folic Acid) 1 mg DAILY PO Last administered on 01/10/19 09:04; Admin Dose 1 MG; Start 01/07/19 at 09:00 Gabapentin (Neurontin) 100 mg TID PO Last administered on 01/10/19 09:04; Admin Dose 100 MG; Start 01/06/19 at 21:00 Levothyroxine Sodium (Synthroid) 200 mcg BEFORE BREAKFAST PO Last administered on 01/10/19 06:15; Admin Dose 200 MCG; Start 01/07/19 at 07:00 Metoprolol Succinate (Toprol Xl) 100 mg DAILY PO Last administered on 01/10/19 09:11; Admin Dose 100 MG; Start 01/07/19 at 09:00 Spironolactone (Aldactone) 50 mg DAILY PO Last administered on 01/10/19 09:05; Admin Dose 50 MG; Start 01/07/19 at 09:00 Tamsulosin HCl (Flomax) 0.4 mg DAILY PO Last administered on 01/10/19 09:05; Admin Dose 0.4 MG; Start 01/07/19 at 09:00 Albuterol/ Ipratropium (Duoneb) 3 ml Q6H RESP THERAPY HHN Last administered on 01/10/19 08:50; Admin Dose 3 ML; Start 01/06/19 at 20:00 Albuterol/ Ipratropium (Duoneb) 3 ml Q4H RESP THERAPY PRN HHN SHORTNESS OF BREATH; Start 01/06/19 at 16:30 Lorazepam (Ativan) 0.5 mg Q6H PRN PO ANXIETY Last administered on 01/09/19 18:53; Admin Dose 0.5 MG; Start 01/06/19 at 21:00 Hydralazine HCl (Apresoline) 10 mg Q4H PRN IV SBP>170; Start 01/07/19 at 16:30 Multivitamins 10 ml/Thiamine HCl 100 mg/Folic Acid 1 mg/Sodium Chloride 1,011.2 ml @ 50 mls/hr DAILY@09 IVPB Last administered on 01/10/19 09:04; Admin Dose 50 MLS/HR; Start 01/08/19 at 09:00 Arformoterol Tartrate (Brovana (Neb)) 2 ml BID RESP THERAPY INH Last administered on 01/10/19at 09:49; Admin Dose 2 ML; Start 01/07/19 at 20:00 Budesonide (Pulmicort (Neb)) 0.5 mg Q12H RESP THERAPY INH Last administered on 01/10/19 08:50; Admin Dose 0.5 MG; Start 01/07/19 at 20:00 Furosemide (Lasix) 20 mg BID DIURETICS PO Last administered on 01/10/19 06:17; Admin Dose 20 MG; Start 01/08/19 at 06:00 Hydromorphone HCl (Dilaudid) 0.5 mg Q4H PRN IV SEVERE PAIN LEVEL 7-10 Last administered on 01/10/19 08:03; Admin Dose 0.5 MG; Start 01/09/19 at 21:30 CHLOÉ TORRE MD Jan 10, 2019 11:16
--- NOTE | 2019-01-10 12:40 | PN ---
Date/Time of Note Date/Time of Note DATE: 01/10/19 TIME: 12:40 Assessment/Plan VTE Prophylaxis Risk score (from [facility] [place])>0 risk: 4 SCD applied (from [facility] [place]): No SCD contraindicated: other Pharmacological prophylaxis: LMWH Lines/Catheters IV Catheter Type (from [facility]): Peripheral IV Urinary Cath still in place: No Assessment/Plan Hospital Course - Inflammatory response - ID follows -Acute anemia, status post 2PRBC blood transfusion. -Possible GI bleed, Dr. Mayes is following in gastroenterology consultation. -Acute on chronic diastolic congestive heart failure. Continue Lasix. Dr. Foley is following in cardiology consultation. -COPD exacerbation, continue bronchodilators, steroids, and oxygen supplementation. -Hyponatremia due to liver cirrhosis, resolved. -Alcoholic liver cirrhosis -Acute kidney injury on chronic kidney disease. Dr. Leung is following in nephrology consultation. -Left foot ulcer. Dr. Hallman is following in podiatry consultation. -Bilateral lower extremities chronic venous stasis - BLE edema - will do venous doppler to r/o any DVT Result Diagram: 01/10/19 0628 01/10/19 0628 Results 24hrs Laboratory Tests Test 01/09/19 21:25 01/10/19 06:28 Urine Opiates Screen Positive Urine Barbiturates Negative Urine Amphetamines Screen Negative Urine Benzodiazepines Screen Negative Urine Cocaine Screen Negative Urine Cannabinoids Negative White Blood Count 6.9 Red Blood Count 3.22 L Hemoglobin 6.7 *L Hematocrit 24.8 L Mean Corpuscular Volume 77.0 L Mean Corpuscular Hemoglobin 20.8 L Mean Corpuscular Hemoglobin Concent 27.0 L Red Cell Distribution Width 21.9 H Platelet Count 84 L Mean Platelet Volume Immature Granulocytes % 0.900 H Neutrophils % Segmented Neutrophils % (Manual) 67 Lymphocytes % Lymphocytes % (Manual) 9 L Monocytes % Monocytes % (Manual) 13 H Eosinophils % Eosinophils % (Manual) 8 H Basophils % Basophils % (Manual) 1 Myelocytes % (Manual) 1 H Plasma Cells % (manual) 1 Nucleated Red Blood Cells % 0.0 Immature Granulocytes # 0.060 H Neutrophils # Lymphocytes (Manual) 0.6 L Lymphocytes # Monocytes # Monocytes # (Manual) 0.8 Eosinophils # Basophils # Basophils # (Manual) 0.0 Myelocytes # 0.0 Plasma Cells # (manual) 0.0 Nucleated Red Blood Cells # Platelet Estimate DECREASED Giant Platelets 1 H Polychromasia 2+ Hypochromasia 3+ Poikilocytosis 2+ Anisocytosis 2+ Microcytosis 1+ Target Cells 1+ Ovalocytes 1+ Schistocytes 1+ Sodium Level 141 Potassium Level 4.5 Chloride Level 107 Carbon Dioxide Level 25 Anion Gap 9 Blood Urea Nitrogen 60 H Creatinine 1.86 H Est Glomerular Filtrat Rate mL/min 37 L Glucose Level 111 Calcium Level 8.6 Subjective 24 Hr Interval Summary Free Text/Dictation Patient has no complaints Exam/Review of Systems Exam Vitals Vital Signs Date Temp Pulse Resp B/P (MAP) Pulse Ox O2 O2 Flow FiO2 Time Delivery Rate 01/10/19 80 12:09 01/10/19 97.4 18 126/61 98 12:01 (82) 01/10/19 2.0 09:55 01/10/19 Nasal 09:53 Cannula 01/10/19 21 08:56 Intake and Output 01/09/19 01/09/19 01/10/19 1515:00 23:00 07:00 IntakeIntake Total 1510 ml 900 ml OutputOutput Total 1550 ml 1100 ml BalanceBalance -40 ml -200 ml Constitutional: well developed Head: normocephalic, atraumatic Neck: supple Respiratory: diminished breath sounds Cardiovascular: regular rate and rhythm Gastrointestinal: soft, non-tender Extremities: normal pulses Results Results 24hrs Laboratory Tests Test 01/09/19 21:25 01/10/19 06:28 Urine Opiates Screen Positive Urine Barbiturates Negative Urine Amphetamines Screen Negative Urine Benzodiazepines Screen Negative Urine Cocaine Screen Negative Urine Cannabinoids Negative White Blood Count 6.9 Red Blood Count 3.22 L Hemoglobin 6.7 *L Hematocrit 24.8 L Mean Corpuscular Volume 77.0 L Mean Corpuscular Hemoglobin 20.8 L Mean Corpuscular Hemoglobin Concent 27.0 L Red Cell Distribution Width 21.9 H Platelet Count 84 L Mean Platelet Volume Immature Granulocytes % 0.900 H Neutrophils % Segmented Neutrophils % (Manual) 67 Lymphocytes % Lymphocytes % (Manual) 9 L Monocytes % Monocytes % (Manual) 13 H Eosinophils % Eosinophils % (Manual) 8 H Basophils % Basophils % (Manual) 1 Myelocytes % (Manual) 1 H Plasma Cells % (manual) 1 Nucleated Red Blood Cells % 0.0 Immature Granulocytes # 0.060 H Neutrophils # Lymphocytes (Manual) 0.6 L Lymphocytes # Monocytes # Monocytes # (Manual) 0.8 Eosinophils # Basophils # Basophils # (Manual) 0.0 Myelocytes # 0.0 Plasma Cells # (manual) 0.0 Nucleated Red Blood Cells # Platelet Estimate DECREASED Giant Platelets 1 H Polychromasia 2+ Hypochromasia 3+ Poikilocytosis 2+ Anisocytosis 2+ Microcytosis 1+ Target Cells 1+ Ovalocytes 1+ Schistocytes 1+ Sodium Level 141 Potassium Level 4.5 Chloride Level 107 Carbon Dioxide Level 25 Anion Gap 9 Blood Urea Nitrogen 60 H Creatinine 1.86 H Est Glomerular Filtrat Rate mL/min 37 L Glucose Level 111 Calcium Level 8.6 Medications Medication Current Medications Ondansetron HCl (Zofran Inj) 4 mg Q6H PRN IV NAUSEA AND/OR VOMITING; Start 01/06/19 at 00:30 Pantoprazole (Protonix Iv) 40 mg BID@06,18 IV Last administered on 01/10/19 06:14; Admin Dose 40 MG; Start 01/06/19 at 06:00 Allopurinol (Zyloprim) 100 mg DAILY PO Last administered on 01/10/19 09:05; Admin Dose 100 MG; Start 01/07/19 at 09:00 Docusate Sodium (Colace) 200 mg QHS PO Last administered on 01/09/19 20:38; Admin Dose 200 MG; Start 01/06/19 at 21:00 Ferrous Sulfate (Ferrous Sulfate (Ec)) 325 mg DAILY PO Last administered on 01/10/19 09:04; Admin Dose 325 MG; Start 01/07/19 at 09:00 Folic Acid (Folic Acid) 1 mg DAILY PO Last administered on 01/10/19 09:04; Admin Dose 1 MG; Start 01/07/19 at 09:00 Gabapentin (Neurontin) 100 mg TID PO Last administered on 01/10/19 09:04; Admin Dose 100 MG; Start 01/06/19 at 21:00 Levothyroxine Sodium (Synthroid) 200 mcg BEFORE BREAKFAST PO Last administered on 01/10/19 06:15; Admin Dose 200 MCG; Start 01/07/19 at 07:00 Metoprolol Succinate (Toprol Xl) 100 mg DAILY PO Last administered on 01/10/19 09:11; Admin Dose 100 MG; Start 01/07/19 at 09:00 Spironolactone (Aldactone) 50 mg DAILY PO Last administered on 01/10/19 09:05; Admin Dose 50 MG; Start 01/07/19 at 09:00 Tamsulosin HCl (Flomax) 0.4 mg DAILY PO Last administered on 01/10/19 09:05; Admin Dose 0.4 MG; Start 01/07/19 at 09:00 Albuterol/ Ipratropium (Duoneb) 3 ml Q6H RESP THERAPY HHN Last administered on 01/10/19 08:50; Admin Dose 3 ML; Start 01/06/19 at 20:00 Albuterol/ Ipratropium (Duoneb) 3 ml Q4H RESP THERAPY PRN HHN SHORTNESS OF BREATH; Start 01/06/19 at 16:30 Lorazepam (Ativan) 0.5 mg Q6H PRN PO ANXIETY Last administered on 01/09/19 18:53; Admin Dose 0.5 MG; Start 01/06/19 at 21:00 Hydralazine HCl (Apresoline) 10 mg Q4H PRN IV SBP>170; Start 01/07/19 at 16:30 Multivitamins 10 ml/Thiamine HCl 100 mg/Folic Acid 1 mg/Sodium Chloride 1,011.2 ml @ 50 mls/hr DAILY@09 IVPB Last administered on 01/10/19 09:04; Admin Dose 50 MLS/HR; Start 01/08/19 at 09:00 Arformoterol Tartrate (Brovana (Neb)) 2 ml BID RESP THERAPY INH Last administered on 01/10/19 09:49; Admin Dose 2 ML; Start 01/07/19 at 20:00 Budesonide (Pulmicort (Neb)) 0.5 mg Q12H RESP THERAPY INH Last administered on 01/10/19 08:50; Admin Dose 0.5 MG; Start 01/07/19 at 20:00 Furosemide (Lasix) 20 mg BID DIURETICS PO Last administered on 01/10/19 06:17; Admin Dose 20 MG; Start 01/08/19 at 06:00 Hydromorphone HCl (Dilaudid) 0.5 mg Q4H PRN IV SEVERE PAIN LEVEL 7-10 Last administered on 4/6/19at 08:03; Admin Dose 0.5 MG; Start 01/09/19 at 21:30 WERNER KING Jan 10, 2019 12:40
--- NOTE | 2019-01-10 15:07 | CONS ---
Assessment/Plan Assessment/Plan Hospital Course (Demo Recall) No acute changes all noted Antimicrobials: Zithromax, status post Rocephin dose Chest x-ray on admission revealed cardiomegaly with increased hilar vascular and interstitial congestion and small right pleural effusion. Abdominal ultrasound revealed no free fluid in the abdomen Physical examination: This is a wasted well-developed chronically ill-appearing elderly man who is in no distress. Head atraumatic normocephalic sclera nonicteric. Neck is supple chest rise symmetrical breath sounds diminished bases. Heart: S1-S2. Abdomen soft bowel sounds present. Extremities without cyanosis. Assessment: 1. Systemic inflammatory response syndrome with resolving leukocytosis 2. Possible COPD exacerbation 3. Alcohol abuse 4. Bilateral lower extremities chronic venous stasis 5. Cirrhosis with recurrent ascites 6. Chronic kidney disease 7. CHF Plan: Remains unchanged, LE US noted, dc abx in am, f/u GI/renal rec-s Consultation Date/Type/Reason Admit Date/Time Jan 05, 2019 at 17:47 Initial Consult Date 01/06/19 Type of Consult id Requesting Provider: KOKO MARLOW MD Date/Time of Note DATE: 01/10/19 TIME: 15:06 Exam/Review of Systems Exam Vitals Vital Signs Date Temp Pulse Resp B/P (MAP) Pulse Ox O2 O2 Flow FiO2 Time Delivery Rate 01/10/19 98 2.0 14:35 01/10/19 86 16 Nasal 14:34 Cannula 01/10/19 97.4 126/61 12:01 (82) 01/10/19 21 08:56 Intake and Output 01/09/19 01/09/19 01/10/19 1515:00 23:00 07:00 IntakeIntake Total 1510 ml 900 ml OutputOutput Total 1550 ml 1100 ml BalanceBalance -40 ml -200 ml Results Result Diagram: 01/10/1928 01/10/19627 Results 24hrs Laboratory Tests Test 01/09/19 21:25 01/10/19 06:28 Urine Opiates Screen Positive Urine Barbiturates Negative Urine Amphetamines Screen Negative Urine Benzodiazepines Screen Negative Urine Cocaine Screen Negative Urine Cannabinoids Negative White Blood Count 6.9 Red Blood Count 3.22 L Hemoglobin 6.7 *L Hematocrit 24.8 L Mean Corpuscular Volume 77.0 L Mean Corpuscular Hemoglobin 20.8 L Mean Corpuscular Hemoglobin Concent 27.0 L Red Cell Distribution Width 21.9 H Platelet Count 84 L Mean Platelet Volume Immature Granulocytes % 0.900 H Neutrophils % Segmented Neutrophils % (Manual) 67 Lymphocytes % Lymphocytes % (Manual) 9 L Monocytes % Monocytes % (Manual) 13 H Eosinophils % Eosinophils % (Manual) 8 H Basophils % Basophils % (Manual) 1 Myelocytes % (Manual) 1 H Plasma Cells % (manual) 1 Nucleated Red Blood Cells % 0.0 Immature Granulocytes # 0.060 H Neutrophils # Lymphocytes (Manual) 0.6 L Lymphocytes # Monocytes # Monocytes # (Manual) 0.8 Eosinophils # Basophils # Basophils # (Manual) 0.0 Myelocytes # 0.0 Plasma Cells # (manual) 0.0 Nucleated Red Blood Cells # Platelet Estimate DECREASED Giant Platelets 1 H Polychromasia 2+ Hypochromasia 3+ Poikilocytosis 2+ Anisocytosis 2+ Microcytosis 1+ Target Cells 1+ Ovalocytes 1+ Schistocytes 1+ Sodium Level 141 Potassium Level 4.5 Chloride Level 107 Carbon Dioxide Level 25 Anion Gap 9 Blood Urea Nitrogen 60 H Creatinine 1.86 H Est Glomerular Filtrat Rate mL/min 37 L Glucose Level 111 Calcium Level 8.6 Medications Medication Current Medications Ondansetron HCl (Zofran Inj) 4 mg Q6H PRN IV NAUSEA AND/OR VOMITING; Start 01/06/19 at 00:30 Pantoprazole (Protonix Iv) 40 mg BID@06,18 IV Last administered on 01/10/19 06:14; Admin Dose 40 MG; Start 01/06/19 at 06:00 Allopurinol (Zyloprim) 100 mg DAILY PO Last administered on 01/10/19 09:05; Admin Dose 100 MG; Start 01/07/19 at 09:00 Docusate Sodium (Colace) 200 mg QHS PO Last administered on 01/09/19 20:38; Admin Dose 200 MG; Start 01/06/19 at 21:00 Ferrous Sulfate (Ferrous Sulfate (Ec)) 325 mg DAILY PO Last administered on 09:04; Admin Dose 325 MG; Start 01/07/19 at 09:00 Folic Acid (Folic Acid) 1 mg DAILY PO Last administered on 01/10/19 09:04; Admin Dose 1 MG; Start 01/07/19 at 09:00 Gabapentin (Neurontin) 100 mg TID PO Last administered on 01/10/19 12:36; Admin Dose 100 MG; Start 01/06/19 at 21:00 Levothyroxine Sodium (Synthroid) 200 mcg BEFORE BREAKFAST PO Last administered on 01/10/19 06:15; Admin Dose 200 MCG; Start 01/07/19 at 07:00 Metoprolol Succinate (Toprol Xl) 100 mg DAILY PO Last administered on 01/10/19 09:11; Admin Dose 100 MG; Start 01/07/19 at 09:00 Spironolactone (Aldactone) 50 mg DAILY PO Last administered on 01/10/19 09:05; Admin Dose 50 MG; Start 01/07/19 at 09:00 Tamsulosin HCl (Flomax) 0.4 mg DAILY PO Last administered on 01/10/19 09:05; Admin Dose 0.4 MG; Start 01/07/19 at 09:00 Albuterol/ Ipratropium (Duoneb) 3 ml Q6H RESP THERAPY HHN Last administered on 01/10/19 14:31; Admin Dose 3 ML; Start 01/06/19 at 20:00 Albuterol/ Ipratropium (Duoneb) 3 ml Q4H RESP THERAPY PRN HHN SHORTNESS OF BREATH; Start 01/06/19 at 16:30 Lorazepam (Ativan) 0.5 mg Q6H PRN PO ANXIETY Last administered on 01/09/19 18:53; Admin Dose 0.5 MG; Start 01/06/19 at 21:00 Hydralazine HCl (Apresoline) 10 mg Q4H PRN IV SBP>170; Start 01/07/19 at 16:30 Multivitamins 10 ml/Thiamine HCl 100 mg/Folic Acid 1 mg/Sodium Chloride 1,011.2 ml @ 50 mls/hr DAILY@09 IVPB Last administered on 01/10/19 09:04; Admin Dose 50 MLS/HR; Start 01/08/19 at 09:00 Arformoterol Tartrate (Brovana (Neb)) 2 ml BID RESP THERAPY INH Last administered on 01/10/19 09:49; Admin Dose 2 ML; Start 01/07/19 at 20:00 Budesonide (Pulmicort (Neb)) 0.5 mg Q12H RESP THERAPY INH Last administered on 01/10/19at 08:50; Admin Dose 0.5 MG; Start 01/07/19 at 20:00 Furosemide (Lasix) 20 mg BID DIURETICS PO Last administered on 01/10/19at 06:17; Admin Dose 20 MG; Start 01/08/19 at 06:00 Hydromorphone HCl (Dilaudid) 1.5 mg Q4H PRN IV SEVERE PAIN LEVEL 7-10; Start 01/10/19 at 13:00 MELISSA NASH NP Jan 10, 2019 15:07
[2019-01-10] MEDS: HYDROmorphONE 2 MG/ML SYG IV PRN ×3 (15:37→23:56)
--- NOTE | 2019-01-10 16:00 | CONS ---
Assessment/Plan Assessment/Plan Hospital Course (Demo Recall) IMPRESSION: 1. Congestive heart failure exacerbation would be diastolic by previous echo, acute on chronic.-neg trop x 3 2. Hypertension, mildly elevated 3. Shortness of breath secondary to #1. 4. Renal failure. 5. Cirrhosis. 6. Hypothyroidism. 7. History of EtOH abuse. Recc: -Tele -Continue lasix/aldactone and follow volume status/ascites closely -Continue BB with well controlled BP -Continue bronchodilators -Continue banana bag -continue abx's and f/u cx data Consultation Date/Type/Reason Admit Date/Time Jan 05, 2019 at 17:47 Initial Consult Date 01/06/19 Type of Consult Cardiology Reason for Consultation CHF Requesting Provider: KOKO MARLOW MD Date/Time of Note DATE: 01/10/19 TIME: 15:57 Exam/Review of Systems Vital Signs Vitals Vital Signs Date Temp Pulse Resp B/P (MAP) Pulse Ox O2 O2 Flow FiO2 Time Delivery Rate 01/10/19 98.1 81 18 134/64 98 Nasal 2.0 15:41 (87) Cannula 01/10/19 21 08:56 Intake and Output 01/09/19 01/09/19 01/10/19 1414:59 22:59 06:59 IntakeIntake Total 1510 ml 900 ml OutputOutput Total 1550 ml 1100 ml BalanceBalance -40 ml -200 ml Exam Exam Review of Systems: CONSTITUTIONAL: No fevers, chills. PULMONARY: No sob CARDIOVASCULAR: No chest pain/palpitations GASTROINTESTINAL: No nausea/vomiting. GENITOURINARY: No hematuria/dysuria. MUSCULOSKELETAL: No myagias/arthalgias. PSYCHIATRIC: The patient denies depression. NEUROLOGIC: lethargic somewhat Constitutional: alert Psych: no complaints Head: normocephalic ENMT: mucosa pink and moist Neck: supple, jvd (9 cm water) Respiratory: diminished breath sounds Cardiovascular: regular rate and rhythm Gastrointestinal: soft, non-tender Musculoskeletal: muscle tone (normal) Extremities: edema (none) Neurological: other (No focal deficits) Labs Result Diagram: 01/10/1928 01/10/19627 Results 24hrs Laboratory Tests Test 01/09/19 21:25 01/10/19 06:28 Urine Opiates Screen Positive Urine Barbiturates Negative Urine Amphetamines Screen Negative Urine Benzodiazepines Screen Negative Urine Cocaine Screen Negative Urine Cannabinoids Negative White Blood Count 6.9 Red Blood Count 3.22 L Hemoglobin 6.7 *L Hematocrit 24.8 L Mean Corpuscular Volume 77.0 L Mean Corpuscular Hemoglobin 20.8 L Mean Corpuscular Hemoglobin Concent 27.0 L Red Cell Distribution Width 21.9 H Platelet Count 84 L Mean Platelet Volume Immature Granulocytes % 0.900 H Neutrophils % Segmented Neutrophils % (Manual) 67 Lymphocytes % Lymphocytes % (Manual) 9 L Monocytes % Monocytes % (Manual) 13 H Eosinophils % Eosinophils % (Manual) 8 H Basophils % Basophils % (Manual) 1 Myelocytes % (Manual) 1 H Plasma Cells % (manual) 1 Nucleated Red Blood Cells % 0.0 Immature Granulocytes # 0.060 H Neutrophils # Lymphocytes (Manual) 0.6 L Lymphocytes # Monocytes # Monocytes # (Manual) 0.8 Eosinophils # Basophils # Basophils # (Manual) 0.0 Myelocytes # 0.0 Plasma Cells # (manual) 0.0 Nucleated Red Blood Cells # Platelet Estimate DECREASED Giant Platelets 1 H Polychromasia 2+ Hypochromasia 3+ Poikilocytosis 2+ Anisocytosis 2+ Microcytosis 1+ Target Cells 1+ Ovalocytes 1+ Schistocytes 1+ Sodium Level 141 Potassium Level 4.5 Chloride Level 107 Carbon Dioxide Level 25 Anion Gap 9 Blood Urea Nitrogen 60 H Creatinine 1.86 H Est Glomerular Filtrat Rate mL/min 37 L Glucose Level 111 Calcium Level 8.6 Medications Medications Current Medications Ondansetron HCl (Zofran Inj) 4 mg Q6H PRN IV NAUSEA AND/OR VOMITING; Start 01/06/19 at 00:30 Pantoprazole (Protonix Iv) 40 mg BID@06,18 IV Last administered on 01/10/19at 06:14; Admin Dose 40 MG; Start 01/06/19 at 06:00 Allopurinol (Zyloprim) 100 mg DAILY PO Last administered on 01/10/19 09:05; Admin Dose 100 MG; Start 01/07/19 at 09:00 Docusate Sodium (Colace) 200 mg QHS PO Last administered on 01/09/19at 20:38; Admin Dose 200 MG; Start 01/06/19 at 21:00 Ferrous Sulfate (Ferrous Sulfate (Ec)) 325 mg DAILY PO Last administered on 01/10/19at 09:04; Admin Dose 325 MG; Start 01/07/19 at 09:00 Folic Acid (Folic Acid) 1 mg DAILY PO Last administered on 01/10/19 09:04; Admin Dose 1 MG; Start 01/07/19 at 09:00 Gabapentin (Neurontin) 100 mg TID PO Last administered on 01/10/19 12:36; Admin Dose 100 MG; Start 01/06/19 at 21:00 Levothyroxine Sodium (Synthroid) 200 mcg BEFORE BREAKFAST PO Last administered on 01/10/19 06:15; Admin Dose 200 MCG; Start 01/07/19 at 07:00 Metoprolol Succinate (Toprol Xl) 100 mg DAILY PO Last administered on 01/10/19 09:11; Admin Dose 100 MG; Start 01/07/19 at 09:00 Spironolactone (Aldactone) 50 mg DAILY PO Last administered on 01/10/19 09:05; Admin Dose 50 MG; Start 01/07/19 at 09:00 Tamsulosin HCl (Flomax) 0.4 mg DAILY PO Last administered on 01/10/19 09:05; Admin Dose 0.4 MG; Start 01/07/19 at 09:00 Albuterol/ Ipratropium (Duoneb) 3 ml Q6H RESP THERAPY HHN Last administered on 01/10/19 14:31; Admin Dose 3 ML; Start 01/06/19 at 20:00 Albuterol/ Ipratropium (Duoneb) 3 ml Q4H RESP THERAPY PRN HHN SHORTNESS OF BREATH; Start 01/06/19 at 16:30 Lorazepam (Ativan) 0.5 mg Q6H PRN PO ANXIETY Last administered on 01/09/19 18:53; Admin Dose 0.5 MG; Start 01/06/19 at 21:00 Hydralazine HCl (Apresoline) 10 mg Q4H PRN IV SBP>170; Start 01/07/19 at 16:30 Multivitamins 10 ml/Thiamine HCl 100 mg/Folic Acid 1 mg/Sodium Chloride 1,011.2 ml @ 50 mls/hr DAILY@09 IVPB Last administered on 01/10/19 09:04; Admin Dose 50 MLS/HR; Start 01/08/19 at 09:00 Arformoterol Tartrate (Brovana (Neb)) 2 ml BID RESP THERAPY INH Last administered on 01/10/19 09:49; Admin Dose 2 ML; Start 01/07/19 at 20:00 Budesonide (Pulmicort (Neb)) 0.5 mg Q12H RESP THERAPY INH Last administered on 01/10/19 08:50; Admin Dose 0.5 MG; Start 01/07/19 at 20:00 Furosemide (Lasix) 20 mg BID DIURETICS PO Last administered on 01/10/19 06:17; Admin Dose 20 MG; Start 01/08/19 at 06:00 Hydromorphone HCl (Dilaudid) 1.5 mg Q4H PRN IV SEVERE PAIN LEVEL 7-10 Last administered on 01/10/19at 15:37; Admin Dose 1.5 MG; Start 01/10/19 at 13:00 DUSTY CANTU Jan 10, 2019 16:00
--- NOTE | 2019-01-10 16:45 | CONS ---
Assessment/Plan Assessment/Plan Assessment/Plan (Daily) Anemia- 2 PRBC transfusion today 1. acute on chronic renal failure due to Type II hepatorenal syndrome + prerenal azotemia 2. Hyponatremia due to Liver cirrhosis 3. Severe Anemia with Hb 6.5 on admission s/p PRBC - 2 UNTS PRBC 4. Acidosis due to TRENT on CKD 5. Decompensated Liver cirrhosis with Symptomatic ascites 6. H/O HTN 7. h/o Liver cirrhosis with ascites 8. H/o Diastolic CHF Plan: Continue spironolactone, BUN/Cr , s/p IV albumin x 3 doses US guided Paracentesis attempted , not enough fluid to remove Cr improved, but BUN High, Monitor Hb and assess for bleeding Will follow up. Patient seen in collaboration with Dr Leung. Dw staff Consultation Date/Type/Reason Admit Date/Time Jan 05, 2019 at 17:47 Initial Consult Date 01/06/19 Requesting Provider: KOKO MARLOW MD Date/Time of Note DATE: 01/10/19 TIME: 16:45 24 HR Interval Summary Free Text/Dictation nad feels better no new issues reported last night Constitutional: requiring IVF Detailed Summary Eyes: no complaints ENT: no complaints Respiratory: no complaints Cardiovascular: no complaints Gastrointestinal: no complaints Genitourinary: no complaints Musculoskeletal: no complaints Skin: no complaints Neurologic: no complaints Endocrine: no complaints Lymphatic: no complaints Psychological: nl mood/affect Immunologic: no complaints Exam/Review of Systems Exam Vitals Vital Signs Date Temp Pulse Resp B/P (MAP) Pulse Ox O2 O2 Flow FiO2 Time Delivery Rate 01/10/19 79 16:15 01/10/19 98.1 18 134/64 98 Nasal 2.0 15:41 (87) Cannula 01/10/19 21 08:56 Intake and Output 01/09/19 01/09/19 01/10/19 1515:00 23:00 07:00 IntakeIntake Total 1510 ml 900 ml OutputOutput Total 1550 ml 1100 ml BalanceBalance -40 ml -200 ml Constitutional: alert, well developed, obese Psych: nl mood/affect Head: atraumatic Eyes: nl lids, nl sclera ENMT: nl external ears & nose Neck: non-tender Respiratory: clear to auscultation Cardiovascular: nl pulses, other (s1s2) Gastrointestinal: soft, non-tender Musculoskeletal: other (chronic BLe skin changes) Neurological: nl speech, other (alert/respnsive) Lymph: nontender Results Result Diagram: 01/10/1962701/10/19627 Results 24hrs Laboratory Tests Test 01/09/19 21:25 01/10/19 06:28 Urine Opiates Screen Positive Urine Barbiturates Negative Urine Amphetamines Screen Negative Urine Benzodiazepines Screen Negative Urine Cocaine Screen Negative Urine Cannabinoids Negative White Blood Count 6.9 Red Blood Count 3.22 L Hemoglobin 6.7 *L Hematocrit 24.8 L Mean Corpuscular Volume 77.0 L Mean Corpuscular Hemoglobin 20.8 L Mean Corpuscular Hemoglobin Concent 27.0 L Red Cell Distribution Width 21.9 H Platelet Count 84 L Mean Platelet Volume Immature Granulocytes % 0.900 H Neutrophils % Segmented Neutrophils % (Manual) 67 Lymphocytes % Lymphocytes % (Manual) 9 L Monocytes % Monocytes % (Manual) 13 H Eosinophils % Eosinophils % (Manual) 8 H Basophils % Basophils % (Manual) 1 Myelocytes % (Manual) 1 H Plasma Cells % (manual) 1 Nucleated Red Blood Cells % 0.0 Immature Granulocytes # 0.060 H Neutrophils # Lymphocytes (Manual) 0.6 L Lymphocytes # Monocytes # Monocytes # (Manual) 0.8 Eosinophils # Basophils # Basophils # (Manual) 0.0 Myelocytes # 0.0 Plasma Cells # (manual) 0.0 Nucleated Red Blood Cells # Platelet Estimate DECREASED Giant Platelets 1 H Polychromasia 2+ Hypochromasia 3+ Poikilocytosis 2+ Anisocytosis 2+ Microcytosis 1+ Target Cells 1+ Ovalocytes 1+ Schistocytes 1+ Sodium Level 141 Potassium Level 4.5 Chloride Level 107 Carbon Dioxide Level 25 Anion Gap 9 Blood Urea Nitrogen 60 H Creatinine 1.86 H Est Glomerular Filtrat Rate mL/min 37 L Glucose Level 111 Calcium Level 8.6 Medications Medication Current Medications Ondansetron HCl (Zofran Inj) 4 mg Q6H PRN IV NAUSEA AND/OR VOMITING; Start 01/06/19 at 00:30 Pantoprazole (Protonix Iv) 40 mg BID@06,18 IV Last administered on 01/10/19at 06:14; Admin Dose 40 MG; Start 01/06/19 at 06:00 Allopurinol (Zyloprim) 100 mg DAILY PO Last administered on 01/10/19at 09:05; Admin Dose 100 MG; Start 01/07/19 at 09:00 Docusate Sodium (Colace) 200 mg QHS PO Last administered on 01/09/19 20:38; Admin Dose 200 MG; Start 01/06/19 at 21:00 Ferrous Sulfate (Ferrous Sulfate (Ec)) 325 mg DAILY PO Last administered on 01/10/19 09:04; Admin Dose 325 MG; Start 01/07/19 at 09:00 Folic Acid (Folic Acid) 1 mg DAILY PO Last administered on 01/10/19 09:04; Admin Dose 1 MG; Start 01/07/19 at 09:00 Gabapentin (Neurontin) 100 mg TID PO Last administered on 01/10/19 12:36; Admin Dose 100 MG; Start 01/06/19 at 21:00 Levothyroxine Sodium (Synthroid) 200 mcg BEFORE BREAKFAST PO Last administered on 01/10/19 06:15; Admin Dose 200 MCG; Start 01/07/19 at 07:00 Metoprolol Succinate (Toprol Xl) 100 mg DAILY PO Last administered on 01/10/19 09:11; Admin Dose 100 MG; Start 01/07/19 at 09:00 Spironolactone (Aldactone) 50 mg DAILY PO Last administered on 01/10/19 09:05; Admin Dose 50 MG; Start 01/07/19 at 09:00 Tamsulosin HCl (Flomax) 0.4 mg DAILY PO Last administered on 01/10/19 09:05; Admin Dose 0.4 MG; Start 01/07/19 at 09:00 Albuterol/ Ipratropium (Duoneb) 3 ml Q6H RESP THERAPY HHN Last administered on 01/10/19 14:31; Admin Dose 3 ML; Start 01/06/19 at 20:00 Albuterol/ Ipratropium (Duoneb) 3 ml Q4H RESP THERAPY PRN HHN SHORTNESS OF BREATH; Start 01/06/19 at 16:30 Lorazepam (Ativan) 0.5 mg Q6H PRN PO ANXIETY Last administered on 01/09/19 18:53; Admin Dose 0.5 MG; Start 01/06/19 at 21:00 Hydralazine HCl (Apresoline) 10 mg Q4H PRN IV SBP>170; Start 01/07/19 at 16:30 Multivitamins 10 ml/Thiamine HCl 100 mg/Folic Acid 1 mg/Sodium Chloride 1,011.2 ml @ 50 mls/hr DAILY@09 IVPB Last administered on 01/10/19 09:04; Admin Dose 50 MLS/HR; Start 01/08/19 at 09:00 Arformoterol Tartrate (Brovana (Neb)) 2 ml BID RESP THERAPY INH Last administered on 01/10/19 09:49; Admin Dose 2 ML; Start 01/07/19 at 20:00 Budesonide (Pulmicort (Neb)) 0.5 mg Q12H RESP THERAPY INH Last administered on 01/10/19 08:50; Admin Dose 0.5 MG; Start 01/07/19 at 20:00 Furosemide (Lasix) 20 mg BID DIURETICS PO Last administered on 01/10/19 06:17; Admin Dose 20 MG; Start 01/08/19 at 06:00 Hydromorphone HCl (Dilaudid) 1.5 mg Q4H PRN IV SEVERE PAIN LEVEL 7-10 Last administered on 01/10/19 15:37; Admin Dose 1.5 MG; Start 01/10/19 at 13:00 GO LAMBERT Jan 10, 2019 16:45
[2019-01-10] MEDS: DOCUSATE SODIUM 100 MG CAP PO SCH (19:58)
[2019-01-11] VITALS: BP 148/67; PULSE 82; PULSE 85; RESP 18
[2019-01-11] MEDS: ALBUTEROL/IPRATROPIUM (NEB) 3 ML AMP HHN SCH (02:00)
--- NOTE | 2019-01-11 11:28 | DS ---
Date/Time of Note Date/Time of Note DATE: 01/11/19 TIME: 11:26 Discharge Summary Admission/Discharge Info Admit Date/Time Jan 05, 2019 at 17:47 Discharge Date/Time Jan 11, 2019 at 01:15 Discharge Diagnosis - Inflammatory response - ID follows -Acute anemia, status post 2PRBC blood transfusion. -Possible GI bleed, Dr. Mayes is following in gastroenterology consultation. -Acute on chronic diastolic congestive heart failure. Continue Lasix. Dr. Foley is following in cardiology consultation. -COPD exacerbation, continue bronchodilators, steroids, and oxygen supplementation. -Hyponatremia due to liver cirrhosis, resolved. -Alcoholic liver cirrhosis -Acute kidney injury on chronic kidney disease. Dr. Leung is following in nephrology consultation. -Left foot ulcer. Dr. Hallman is following in podiatry consultation. -Bilateral lower extremities chronic venous stasis - BLE edema - will do venous doppler to r/o any DVT Patient Condition: Fair Consults Cardiology GI Procedures none Hx of Present Illness Patient with CHF, COPD, CKD comes in with anemia and possible sepsis. Hospital Course Patient with CHF, COPD, CKD comes in with anemia, fluid overload, and possible sepsis. Patient was treated with diuresis, evaluated by GI. However, patient has a history of noncompliance and he left AMA because he wanted to smoke and the nurse would not allow her - Inflammatory response - ID follows -Acute anemia, status post 2PRBC blood transfusion. -Possible GI bleed, Dr. Mayes is following in gastroenterology consultation. -Acute on chronic diastolic congestive heart failure. Continue Lasix. Dr. Foley is following in cardiology consultation. -COPD exacerbation, continue bronchodilators, steroids, and oxygen supplementation. -Hyponatremia due to liver cirrhosis, resolved. -Alcoholic liver cirrhosis -Acute kidney injury on chronic kidney disease. Dr. Leung is following in nephrology consultation. -Left foot ulcer. Dr. Hallman is following in podiatry consultation. -Bilateral lower extremities chronic venous stasis - BLE edema - will do venous doppler to r/o any DVT Home Meds Active Scripts Docusate Sodium* (Docusate Sodium*) 100 Mg Capsule, 200 MG PO QHS, #60 CAP Prov:DC GOVEAA 06/26/18 Reported Medications Allopurinol* (Zyloprim*) 100 Mg Tablet, 100 MG PO DAILY, TAB 09/18/18 Rifaximin* (Xifaxan*) 550 Mg Tablet, 550 MG PO BID, TAB 09/18/18 Thiamine* (Vitamin B-1*) 100 Mg Tablet, 100 MG PO DAILY, TAB 09/18/18 Metoprolol Succinate* (Toprol XL*) 100 Mg Tab.sr.24h, 100 MG PO DAILY, #30 TAB HOLD FOR SBP<110 OR HR<60 09/18/18 Sodium Bicarbonate* (Sodium Bicarbonate*) 650 Mg Tablet, 650 MG PO TID, TAB 09/18/18 Albuterol Sulfate* (Ventolin HFA*) 18 Gm Hfa.aer.ad, 2 PUFF INHALATION Q4H, #1 INHALER 09/18/18 Pantoprazole* (Protonix*) 40 Mg Tablet.dr, 40 MG PO DAILY, TAB 09/18/18 Oxycodone Hcl* (Oxycontin*) 10 Mg Tab.sr.12h, 10 MG PO Q6H, TAB 09/18/18 Gabapentin* (Gabapentin*) 100 Mg Capsule, 100 MG PO TID, #90 CAP 09/18/18 Levothyroxine Sodium* (Levothyroxine Sodium*) 100 Mcg Tablet, 200 MCG PO BEFORE BREAKFAST, #30 TAB 09/18/18 Ipratropium [place]* (Atrovent HFA*) 12.9 Gm Aer.w.adap, 1 VIAL INHALATION Q6H PRN for WHEEZING AND SOB, #1 INHALER 09/18/18 Furosemide* (Furosemide*) 40 Mg Tablet, 40 MG PO DAILY, TAB 09/18/18 Folic Acid* (Folic Acid*) 1 Mg Tablet, 1 MG PO DAILY, TAB 09/18/18 Tamsulosin Hcl* (Flomax*) 0.4 Mg Cap.er.24h, 0.4 MG PO DAILY, CAP 09/18/18 Ferrous Sulfate* (Ferrous Sulfate*) 325 Mg Tabec, 325 MG PO DAILY, TAB 09/18/18 Spironolactone* (Aldactone*) 50 Mg Tablet, 50 MG PO DAILY, #30 TAB HOLD FOR SBP<110 09/18/18 Salmeterol Xinaf/Fluticasone* (Advair*) 250-50 Diskus Inhaler, 1 INH INHALATION BID, #1 INHALER 09/18/18 Primary Care Provider MD CHRISTINE Fernandez LOREN Y Jan 11, 2019 11:28
[2019-01-11] MEDS ORDERED: ACET-141 PO (11:39)
[2019-01-11] MEDS ORDERED: ADV25050 INHALATION (11:40)
[2019-01-11] MEDS ORDERED: SPIR50TA PO (11:41)
[2019-01-11] MEDS ORDERED: ARFO15VI INHALATION (11:43)
[2019-01-11] MEDS ORDERED: ASC500 PO (11:44)
[2019-01-11] MEDS ORDERED: LORA1TAB PO ×2 (11:45→12:04)
[2019-01-11] MEDS ORDERED: BUDE0.5A INHALATION (11:46)
[2019-01-11] MEDS ORDERED: DORZ10DR22 BOTH EYES (11:47)
[2019-01-11] MEDS ORDERED: DOCU-144 PO (11:49)
[2019-01-11] MEDS ORDERED: LACT10SO5 PO (11:50)
[2019-01-11] MEDS ORDERED: EPO10ESRD SC (11:52)
[2019-01-11] MEDS ORDERED: ERTA1VIA3 IM (11:54)
[2019-01-11] MEDS ORDERED: FER325 PO (11:55)
[2019-01-11] MEDS ORDERED: TAMS-14 PO (11:56)
[2019-01-11] MEDS ORDERED: FOLI-49 PO (11:57)
[2019-01-11] MEDS ORDERED: FURO40TA4 PO (11:57)
[2019-01-11] MEDS ORDERED: GABA100C14 PO (11:58)
[2019-01-11] MEDS ORDERED: HYDR-4011 PO (12:00)
[2019-01-11] MEDS ORDERED: IPRA3AMP29 INHALATION (12:01)
[2019-01-11] MEDS ORDERED: LEVO200T6 PO (12:03)
[2019-01-11] MEDS ORDERED: LEVO25TA6 PO (12:03)
[2019-01-11] MEDS ORDERED: METO-407 PO (12:06)
[2019-01-11] MEDS ORDERED: ONDA4TAB13 PO (12:07)
[2019-01-11] MEDS ORDERED: RIFA550T4 PO (12:08)
[2019-01-11] MEDS ORDERED: ALLO100T PO (12:09)
[2019-01-11] MEDS ORDERED: OXYC10TA45 PO (12:12)
[2019-01-11] MEDS ORDERED: PANT40TA4 PO (12:12)
[2019-01-11] MEDS ORDERED: OXYC-536 PO (12:12)
[2019-01-11] MEDS ORDERED: ALBU90AE INHALATION (12:15)
[2019-01-11] MEDS ORDERED: SIME80TA60 PO (12:16)
[2019-01-11] MEDS ORDERED: SODI325T PO (12:17)
[2019-01-11] MEDS ORDERED: THIA100T56 PO (12:18)
== END 2019-01-11 01:15 | disposition left against medical advice (07) | DRG 871 ==
LOC: E/R 14:17 → TEL 17:47
PROVIDERS: ADMIT Internal Medicine; ATTEND Internal Medicine
PROC: 30233N1 Transfusion of Nonautologous Red Blood Cells into Peripheral Vein, Percutaneous Approach (ICD-10-PCS; 2019-01-05)
PROC: 30233N1 Transfusion of Nonautologous Red Blood Cells into Peripheral Vein, Percutaneous Approach (ICD-10-PCS; principal; 2019-01-10)
DX: A41.9 Sepsis, unspecified organism (principal); I50.33 Acute on chronic diastolic (congestive) heart failure; J18.9 Pneumonia, unspecified organism; N18.6 End stage renal disease; K76.7 Hepatorenal syndrome; I13.2 Hypertensive heart and chronic kidney disease with heart failure and with stage 5 chronic kidney disease, or end stage renal disease; N17.9 Acute kidney failure, unspecified; J44.1 Chronic obstructive pulmonary disease with (acute) exacerbation; E87.1 Hypo-osmolality and hyponatremia; K92.2 Gastrointestinal hemorrhage, unspecified; E87.2 Acidosis; D62 Acute posthemorrhagic anemia; K70.31 Alcoholic cirrhosis of liver with ascites; K72.90 Hepatic failure, unspecified without coma; K80.20 Calculus of gallbladder without cholecystitis without obstruction; F41.9 Anxiety disorder, unspecified; N40.0 Benign prostatic hyperplasia without lower urinary tract symptoms; E03.9 Hypothyroidism, unspecified; I25.10 Atherosclerotic heart disease of native coronary artery without angina pectoris; M10.9 Gout, unspecified; D63.1 Anemia in chronic kidney disease; F17.200 Nicotine dependence, unspecified, uncomplicated; I87.8 Other specified disorders of veins; Z91.19 Patient's noncompliance with other medical treatment and regimen
CPT/HCPCS: 36415; 36430; 71045; 76705; 80048; 80053; 80061; 80307; 82270; 82550; 82553; 82607; 82728; 82746; 83690; 83735; 83880; 84439; 84443; 84484; 85025; 85045; 85610; 85730; 86850; 86900; 86901; 86920; 93005; 93306; 93970; 94640; 94644; 94664; 96374; C9113; J1170; J1940; J2060; J2270; J2930; J3411; J7030; P9016; P9047

== ENCOUNTER 2019-01-11 08:26 | Inpatient (IN) | payer BC ==
[~2019-01-11] VITALS: Ht 182.9 cm; Wt 106.9 kg
[2019-01-11 08:29] VITALS: Ht 182.9 cm; Wt 106.9 kg
[2019-01-11] MEDS ORDERED: HYDROCODONE/APAP (10/325) TAB PO ONE (09:00)
[2019-01-11] MEDS ORDERED: ONDANSETRON 4 MG INJ IV PRN (10:00)
[2019-01-11] MEDS ORDERED: ACETAMINOPHEN 325 MG TAB PO PRN ×2 (10:00→13:00)
--- NOTE | 2019-01-11 10:02 | ERD ---
ER Documentation Chief Complaint Chief Complaint SOB,BODY PAINS, SIGNED AMA ON January FROM FLOOR, [facility] This is a 63-year-old male with a history of hypertension, CHF, renal insufficiency who presents to the ER for evaluation of shortness of breath and chest pain. The patient was recently admitted to the hospital and signed out AGAINST MEDICAL ADVICE on January 10. He returns today for similar complaints for which she was originally admitted for. The patient denies any fevers or chills at this time and states "I want Dilaudid for my pain" ROS All systems reviewed and are negative except as per history of present illness. Medications Home Meds Active Scripts Docusate Sodium* (Docusate Sodium*) 100 Mg Capsule, 200 MG PO QHS, #60 CAP Prov:MILLICENT GOVEA 06/26/18 Reported Medications Allopurinol* (Zyloprim*) 100 Mg Tablet, 100 MG PO DAILY, TAB 09/18/18 Rifaximin* (Xifaxan*) 550 Mg Tablet, 550 MG PO BID, TAB 09/18/18 Thiamine* (Vitamin B-1*) 100 Mg Tablet, 100 MG PO DAILY, TAB 09/18/18 Metoprolol Succinate* (Toprol XL*) 100 Mg Tab.sr.24h, 100 MG PO DAILY, #30 TAB HOLD FOR SBP<110 OR HR<60 09/18/18 Sodium Bicarbonate* (Sodium Bicarbonate*) 650 Mg Tablet, 650 MG PO TID, TAB 09/18/18 Albuterol Sulfate* (Ventolin HFA*) 18 Gm Hfa.aer.ad, 2 PUFF INHALATION Q4H, #1 INHALER 09/18/18 Pantoprazole* (Protonix*) 40 Mg Tablet.dr, 40 MG PO DAILY, TAB 09/18/18 Oxycodone Hcl* (Oxycontin*) 10 Mg Tab.sr.12h, 10 MG PO Q6H, TAB 09/18/18 Gabapentin* (Gabapentin*) 100 Mg Capsule, 100 MG PO TID, #90 CAP 09/18/18 Levothyroxine Sodium* (Levothyroxine Sodium*) 100 Mcg Tablet, 200 MCG PO BEFORE BREAKFAST, #30 TAB 09/18/18 Ipratropium [place]* (Atrovent HFA*) 12.9 Gm Aer.w.adap, 1 VIAL INHALATION Q6H PRN for WHEEZING AND SOB, #1 INHALER 09/18/18 Furosemide* (Furosemide*) 40 Mg Tablet, 40 MG PO DAILY, TAB 09/18/18 Folic Acid* (Folic Acid*) 1 Mg Tablet, 1 MG PO DAILY, TAB 09/18/18 Tamsulosin Hcl* (Flomax*) 0.4 Mg Cap.er.24h, 0.4 MG PO DAILY, CAP 09/18/18 Ferrous Sulfate* (Ferrous Sulfate*) 325 Mg Tabec, 325 MG PO DAILY, TAB 09/18/18 Spironolactone* (Aldactone*) 50 Mg Tablet, 50 MG PO DAILY, #30 TAB HOLD FOR SBP<110 09/18/18 Salmeterol Xinaf/Fluticasone* (Advair*) 250-50 Diskus Inhaler, 1 INH INHALATION BID, #1 INHALER 09/18/18 Allergies Allergies: Coded Allergies: Penicillins (Unverified Allergy, Unknown, 01/05/19) PMhx/Soc Anesthesia Reaction: No Hx Neurological Disorder: No Hx Respiratory Disorders: Yes (copd) Hx Cardiac Disorders: Yes (htn chf) Hx Psychiatric Problems: No Hx Miscellaneous Medical Probl: Yes (esld,ckd,esrd) Hx Alcohol Use: Yes Hx Substance Use: No Hx Tobacco Use: Yes Smoking Status: Current some day smoker Physical Exam Vitals Vital Signs Date Temp Pulse Resp B/P (MAP) Pulse Ox O2 O2 Flow FiO2 Time Delivery Rate 01/11/19 88 17 139/61 99 Nasal 2.0 09:43 (87) Cannula 01/11/19 Nasal 2 08:44 Cannula 01/11/19 98.1 100 18 143/65 100 08:29 (91) Physical Exam INITIAL VITAL SIGNS: Reviewed by me GENERAL: The patient is well developed, no acute distress HEENT: Dry mucous membranes, pupils equal, round, and reactive to light. EOMI. There is no scleral icterus. NECK: C-spine is soft and supple, there is no meningismus. There is no cervical lymphadenopathy. LUNGS: Diminished breath sounds bilaterally. There are no rales, wheezes or rhonchi. HEART: Regular rate and rhythm, no murmurs, clicks, rubs or gallops. ABDOMEN: Soft, non-tender, non-distended. There are bowel sounds in all four quadrants. No rebound or guarding. EXTREMITIES: There is no peripheral cyanosis or edema. No focal swelling or erythema. NEUROLOGICAL: The patient moves all four extremities with 5/5 strength. Cranial nerves II - XII are intact. Normal gait. Alert and oriented SKIN: There is no apparent rash or petechiae. HEME/LYMPHATIC: There is no evidence of excessive bruising or lymphedema. PSYCHIATRIC: The patient does not appear anxious or depressed. Result Diagram: 01/11/19 0859 01/11/19 0859 Results 24 hrs Laboratory Tests Test 01/11/19 08:59 White Blood Count 10.0 10^3/ul Red Blood Count 3.75 10^6/ul Hemoglobin 8.1 g/dl Hematocrit 29.0 % Mean Corpuscular Volume 77.3 fl Mean Corpuscular Hemoglobin 21.6 pg Mean Corpuscular Hemoglobin Concent 27.9 g/dl Red Cell Distribution Width 22.0 % Platelet Count 97 10^3/UL Mean Platelet Volume fl Immature Granulocytes % 1.000 % Neutrophils % % Lymphocytes % % Monocytes % % Eosinophils % % Basophils % % Nucleated Red Blood Cells % 0.0 /100WBC Immature Granulocytes # 0.100 10^3/ul Neutrophils # 10^3/ul Lymphocytes # 10^3/ul Monocytes # 10^3/ul Eosinophils # 10^3/ul Basophils # 10^3/ul Nucleated Red Blood Cells # 10^3/ul Sodium Level 139 mmol/L Potassium Level 4.5 mmol/L Chloride Level 103 mmol/L Carbon Dioxide Level 24 mmol/L Anion Gap 12 Blood Urea Nitrogen 53 mg/dl Creatinine 1.62 mg/dl Est Glomerular Filtrat Rate mL/min 44 mL/min Glucose Level 101 mg/dl Calcium Level 9.0 mg/dl Total Bilirubin 0.2 mg/dl Direct Bilirubin 0.00 mg/dl Indirect Bilirubin 0.2 mg/dl Aspartate Amino Transf (AST/SGOT) 33 IU/L Alanine Aminotransferase (ALT/SGPT) 23 IU/L Alkaline Phosphatase 92 IU/L Troponin I < 0.012 ng/ml B-Type Natriuretic Peptide 3100 PG/ML Total Protein 7.0 g/dl Albumin 4.1 g/dl Globulin 2.90 g/dl Albumin/Globulin Ratio 1.41 Current Medications Medications Dose Sig/Trevor Start Time Status Last (Trade) Ordered Route PRN Stop Time Admin Dose Reason Admin 1 tab ONCE ONCE 01/11/19 DC 01/11/19 Acetaminophen PO 09:00 01/11/19 09:04 / 09:01 Hydrocodone Bitart ([place] (10/325)) Ondansetron 4 mg ER BRIDGE 01/11/19 HCl (Zofran PRN IV 10:00 01/12/19 Inj) NAUSEA/VOMITI 09:59 NG 650 mg ER BRIDGE 01/11/19 Acetaminophen PRN PO 10:00 01/12/19 (Tylenol .MILD PAIN 09:59 Tab) 1-3 OR TEMP Procedures/MDM EKG: Rate/Rhythm: [Normal Sinus Rhythm] QRS, ST, T-waves: [No changes consistent w/ acute ischemia] Impression: [No evidence of ischemia or arrhythmia] Chest X-ray 1V Interpreted by me: Soft Tissue: No acute abnormalit ies Bones: No acute abnormalities Mediastinum/Cardiac Silhouette/Lungs: Interstitial opacities This 63-year-old male presents the ER for evaluation of shortness of breath, body pains and generalized weakness. He was recently admitted to the hospital for CHF, fluid overload, and he signed out AGAINST MEDICAL ADVICE. He returned to the hospital again for similar complaints. My exam the patient was afebrile, he does appear older than stated age however I believe this is secondary to his ongoing core morbidities. The patient hemoglobin has improved after he was transfused during his prior admission. He continues to complain of shortness of breath, chest x-ray does show improved interstitial opacities. I have contacted this patient's physician Dr. Lara and spoken to Dr. Phan who is covering. He states the patient should be admitted and the patient will be placed in for admission at this time for shortness of breath, and mild CHF Departure Diagnosis: Primary Impression: Chronic kidney disease Additional Impressions: Anemia CHF (congestive heart failure), NYHA class I Condition: JOHNY Mays DO Jan 11, 2019 10:02
[2019-01-11] MEDS ORDERED: ACET-141 PO (11:39)
[2019-01-11] MEDS ORDERED: ADV25050 INHALATION (11:40)
[2019-01-11] MEDS ORDERED: SPIR50TA PO (11:41)
[2019-01-11] MEDS ORDERED: ARFO15VI INHALATION (11:43)
[2019-01-11] MEDS ORDERED: ASC500 PO (11:44)
[2019-01-11] MEDS ORDERED: LORA1TAB PO ×2 (11:45→12:04)
[2019-01-11] MEDS ORDERED: BUDE0.5A INHALATION (11:46)
[2019-01-11] MEDS ORDERED: DORZ10DR22 BOTH EYES (11:47)
[2019-01-11] MEDS ORDERED: DOCU-144 PO (11:49)
[2019-01-11] MEDS ORDERED: LACT10SO5 PO (11:50)
[2019-01-11] MEDS ORDERED: EPO10ESRD SC (11:52)
[2019-01-11] MEDS ORDERED: ERTA1VIA3 IM (11:54)
[2019-01-11] MEDS ORDERED: FER325 PO (11:55)
[2019-01-11] MEDS ORDERED: TAMS-14 PO (11:56)
[2019-01-11] MEDS ORDERED: FOLI-49 PO (11:57)
[2019-01-11] MEDS ORDERED: FURO40TA4 PO (11:57)
[2019-01-11] MEDS ORDERED: GABA100C14 PO (11:58)
[2019-01-11] MEDS ORDERED: HYDR-4011 PO (12:00)
[2019-01-11] MEDS ORDERED: IPRA3AMP29 INHALATION (12:01)
[2019-01-11] MEDS ORDERED: LEVO25TA6 PO (12:03)
[2019-01-11] MEDS ORDERED: LEVO200T6 PO (12:03)
[2019-01-11] MEDS ORDERED: METO-407 PO (12:06)
[2019-01-11] MEDS ORDERED: ONDA4TAB13 PO (12:07)
[2019-01-11] MEDS ORDERED: RIFA550T4 PO (12:08)
[2019-01-11] MEDS ORDERED: ALLO100T PO (12:09)
[2019-01-11] MEDS ORDERED: OXYC10TA45 PO (12:12)
[2019-01-11] MEDS ORDERED: PANT40TA4 PO (12:12)
[2019-01-11] MEDS ORDERED: OXYC-536 PO (12:12)
[2019-01-11] MEDS ORDERED: ALBU90AE INHALATION (12:15)
[2019-01-11] MEDS ORDERED: SIME80TA60 PO (12:16)
[2019-01-11] MEDS ORDERED: SODI325T PO (12:17)
[2019-01-11] MEDS ORDERED: THIA100T56 PO (12:18)
[2019-01-11] MEDS ORDERED: ALBUTEROL 0.083% (NEB) 2.5 MG/3 ML AMP HHN PRN (13:00)
[2019-01-11] MEDS ORDERED: NACL 0.9% 3 ML SYG IV SCH (13:00)
[2019-01-11 13:10] VITALS: PULSE 87
[2019-01-11] MEDS: HYDROmorphONE 0.5 MG/0.5 ML SYG IV PRN ×3 (13:16→22:13)
--- NOTE | 2019-01-11 13:44 | CONS ---
Assessment/Plan Assessment/Plan Hospital Course (Demo Recall) Left AMA and came back, looks comfortable, no fevers Antimicrobials: none Physical examination: This is a wasted well-developed chronically ill-appearing elderly man who is in no distress. Head atraumatic normocephalic sclera nonicteric. Neck is supple chest rise symmetrical breath sounds diminished bases. Heart: S1-S2. Abdomen soft bowel sounds present. Extremities without cyanosis. Assessment: 1. S/p systemic inflammatory response syndrome 2. S/p COPD exacerbation 3. Alcohol abuse 4. Bilateral lower extremities chronic venous stasis 5. Cirrhosis with recurrent ascites 6. Chronic kidney disease 7. CHF Plan: Off abx, continue supportive care Consultation Date/Type/Reason Admit Date/Time Jan 11, 2019 at 09:53 Initial Consult Date Type of Consult id Date/Time of Note DATE: 01/11/19 TIME: 13:43 Exam/Review of Systems Exam Vitals Vital Signs Date Temp Pulse Resp B/P (MAP) Pulse Ox O2 O2 Flow FiO2 Time Delivery Rate 01/11/19 87 13:10 01/11/19 98.7 17 147/69 98 Nasal 2.0 12:49 (95) Cannula Results Result Diagram: 01/11/19 0859 01/11/19 0859 Results 24hrs Laboratory Tests Test 01/11/19 08:59 01/11/19 09:00 White Blood Count 10.0 # Red Blood Count 3.75 L Hemoglobin 8.1 #L Hematocrit 29.0 L Mean Corpuscular Volume 77.3 L Mean Corpuscular Hemoglobin 21.6 L Mean Corpuscular Hemoglobin Concent 27.9 L Red Cell Distribution Width 22.0 H Platelet Count 97 L Mean Platelet Volume Immature Granulocytes % 1.000 H Neutrophils % Segmented Neutrophils % (Manual) 71 Lymphocytes % Lymphocytes % (Manual) 6 L Monocytes % Monocytes % (Manual) 15 H Eosinophils % Eosinophils % (Manual) 8 H Basophils % Basophils % (Manual) 1 Nucleated Red Blood Cells % 0.0 Immature Granulocytes # 0.100 H Neutrophils # Lymphocytes (Manual) 0.6 L Lymphocytes # Monocytes # Monocytes # (Manual) 1.5 H Eosinophils # Basophils # Basophils # (Manual) 0.1 H Nucleated Red Blood Cells # Platelet Estimate DECREASED Hypochromasia 3+ Poikilocytosis 1+ Anisocytosis 2+ Microcytosis 2+ Ovalocytes 1+ Sodium Level 139 Potassium Level 4.5 Chloride Level 103 Carbon Dioxide Level 24 Anion Gap 12 Blood Urea Nitrogen 53 H Creatinine 1.62 H Est Glomerular Filtrat Rate mL/min 44 L Glucose Level 101 Calcium Level 9.0 Total Bilirubin 0.2 Direct Bilirubin 0.00 Indirect Bilirubin 0.2 Aspartate Amino Transf (AST/SGOT) 33 Alanine Aminotransferase (ALT/SGPT) 23 Alkaline Phosphatase 92 Troponin I < 0.012 B-Type Natriuretic Peptide 3100 H Total Protein 7.0 Albumin 4.1 Globulin 2.90 Albumin/Globulin Ratio 1.41 Ethyl Alcohol Level 24.0 H Medications Medication Current Medications IV Flush (NS 3 ml) 3 ml PER PROTOCOL IV ; Start 01/11/19 at 13:00 Ondansetron HCl (Zofran Inj) 4 mg Q6H PRN IV NAUSEA/VOMITING; Start 01/11/19 at 13:00 Acetaminophen (Tylenol Tab) 650 mg Q6H PRN PO .PAIN 1-3 OR TEMP; Start 01/11/19 at 13:00 Hydromorphone HCl (Dilaudid) 0.5 mg Q4H PRN IV .PAIN 7-10 Last administered on 01/11/19at 13:16; Admin Dose 0.5 MG; Start 01/11/19 at 13:00 Famotidine (Pepcid Iv) 20 mg Q12 IV ; Start 01/11/19 at 21:00 Enoxaparin Sodium (Lovenox) 30 mg DAILY SC ; Start 01/12/19 at 09:00 Albuterol (Proventil 0.083% (Neb)) 2.5 mg Q6 PRN HHN shortness of breath; Start 01/11/19 at 13:00 MELISSA NASH NP Jan 11, 2019 13:44
--- NOTE | 2019-01-11 15:07 | CONS ---
DATE OF ADMISSION: 01/11/2019 DATE OF CONSULTATION: 01/11/2019 REASON FOR CONSULTATION: Congestive heart failure exacerbation. REQUESTING PHYSICIAN: Dr. Koko Marlow and Dr. Edwina King. HISTORY OF PRESENT ILLNESS: Mr. Milian is a 63-year-old male with history of hypertension, conges tive heart failure with preserved EF by echo just done 01/2019, lower extremity osteomyelitis, alcoho lic liver cirrhosis, recurrent bouts of ascites, tobacco dependence, ETOH abuse, hypothyroidism who h ad presented and had been admitted 01/05/2019 to [facility] with complaints of orth opnea, shortness of breath, lower extremity edema, abdominal distention. The patient was undergoing diuresis with Lasix and Aldactone, underwent large volume paracentesis, was ruled out for myocardial infarction, underwent a 2D echo revealing a preserved EF. The patient signed out against medical adv ice and re-presented the next day, stating that he has shortness of breath, chest pain, abdominal hua n and needed pain medication for his pain. PAST MEDICAL HISTORY: As above in HPI. MEDICATIONS CURRENTLY IN HOSPITAL: 1. Lovenox 30 mg subcutaneously daily. 2. Pepcid 10 mg IV q.12. 3. Zofran p.r.n. 4. Tylenol p.r.n. 5. Dilaudid p.r.n. ALLERGIES: PENICILLIN. SOCIAL HISTORY: Positive tobacco, ETOH abuse. No documented illicit drug use. FAMILY HISTORY: No sudden cardiac or early CAD. REVIEW OF SYSTEMS: As above in HPI. CONSTITUTIONAL: No fevers or chills. PULMONARY: Shortness of breath. CARDIOVASCULAR: Congestive heart failure, chest pain. GASTROINTESTINAL: No vomiting. GENITOURINARY: No hematuria. MUSCULOSKELETAL: Degenerative joint disease. PSYCHIATRIC: No documented psych history. NEUROLOGIC: No documented history of CVA. ENDOCRINE: No documented history of diabetes mellitus. PHYSICAL EXAMINATION: VITAL SIGNS: Temperature of 98.7, blood pressure most recently 147/69, pulse 87, respiratory rate of 17, satting 98% on 2 L. GENERAL: The patient is sleeping but arousable, in no acute distress. NECK: JVP approximately 9 to 10 cm water. CHEST: Decreased breath sounds at bases bilaterally. HEART: Regular rate and rhythm. Normal S1, increased S2, I/ systolic murmur. ABDOMEN: Obese, mildly distended, positive ascites. EXTREMITIES: Chronic stasis changes. Difficult to palpate distal pulses bilaterally, posterior tibi al, dorsalis pedis. Mild thickened skin with trace edema bilaterally. LABORATORY DATA: Most recently from today, sodium 139, potassium 4.5, creatinine 1.6, BUN 53. White count 10, hemoglobin 8.1, platelet count 97. IMAGING STUDIES: Chest x-ray from 01/11/2019 revealing inflow decreased edema and bibasilar opacitie s. ELECTROCARDIOGRAM: Reveals normal sinus rhythm at 91, normal axis, normal intervals with isolated Q in III. IMPRESSION: 1. Congestive heart failure exacerbation, diastolic, acute on chronic. 2. Hypertension. 3. Shortness of breath secondary to congestive heart failure exacerbation, diastolic, acute on chron ic. 4. Chronic renal failure. 5. Cirrhosis. 6. Ascites, recurrent. 7. Hypothyroidism. 8. History of ETOH abuse. 9. Anemia. RECOMMENDATIONS: 1. At this time, we would resume the patient on baseline Lasix and Aldactone. 2. We would resume the patient's baseline beta jose following heart rate and blood pressure close ly. 3. Pain control. Thank you for allowing me to take part to take part in the care of this patient. I will continue to follow him very closely with you with further recommendations will be made as the patient progresses through his inpatient hospital clinical course. Dictated By: DUSTY YOUNG/NILDA Conf#: [id number] DID#: [id number] CC: EDWINA KING MD; KOKO MARLOW MD;*End*
[2019-01-11 16:00] VITALS: PULSE 86
--- NOTE | 2019-01-11 17:38 | CONS ---
Assessment/Plan Assessment/Plan Assessment/Plan (Daily) 1. acute on chronic renal failure due to Type II hepatorenal syndrome 2. SIRS 3. anemia of CKD 5. Decompensated Liver cirrhosis with Symptomatic ascites 6. H/O HTN 7. h/o Liver cirrhosis with ascites 8. H/o Diastolic CHF 9. Bilateral LE chronic venous stasis Plan: Continue IV abx as per ID , renally dose all abx , monitor electorlytes and replace as needed, Podiatry consulte has been requested on patient BP stable, lasix 20mg IV daily, spironolactone 50mg po daily , Toprol Xl 50mg po daily Thanks for consultation< I will continue to follow up Consultation Date/Type/Reason Admit Date/Time Jan 11, 2019 at 09:53 Date of Consultation: Jan 11, 2019 Type of Consult Nephrology Reason for Consultation Acute on chronic renal failure Requesting Provider: WERNER KING Date/Time of Note DATE: 01/11/19 TIME: 17:38 Hx of Present Illness 63-year-old male with PMhx of diastolic congestive heart failure, COPD, chronic kidney disease, alcoholic liver cirrhosis, history of bilateral lower extremity cellulitis and edema, history of left foot plantar ulcer underwent I&D in September 2018. Patient has a history of cholelithiasis, anxiety, BPH and hypothyroidism. Patient presented to the emergency room with complaints of acute dyspnea for the last couple of days which got significantly worse last night, complains of bilateral lower extremities edema orthopnea. On chemistry he was noted to have BUN/Cr 53/1.62, Na 139, HCo3 24- Renal has been consutled for acute on chronic renal failure Respiratory: pleuritic pain, shortness of breath Musculoskeletal: bone/joint pain, neck pain, swelling Past Medical History Medical History: hypertension, other (Live cirrhosis, ascites , portal HTN ) Home Meds Reported Medications Thiamine* (Vitamin B-1*) 100 Mg Tablet, 100 MG PO DAILY, TAB 01/11/19 Sodium Bicarbonate* (Sodium Bicarbonate*) 325 Mg Tablet, 325 MG PO TID, TAB 01/11/19 Simethicone* (Mylicon*) 80 Mg Tab, 80 MG PO Q6H, TAB 01/11/19 Albuterol Sulfate (Proair Respiclick) 90 Mcg Aer.pow.ba, 2 PUFFS INHALATION Q4H PRN for SHORTNESS OF BREATH, #1 BOTTLE 01/11/19 Pantoprazole* (Pantoprazole*) 40 Mg Tablet.dr, 40 MG PO AC BREAKFAST, TAB 01/11/19 Oxycodone Hcl* (Oxycontin*) 15 Mg Tab.sr.12h, 15 MG PO Q6H PRN for PAIN, TAB 01/11/19 Oxycodone Hcl* (Oxycontin*) 10 Mg Tab.sr.12h, 10 MG PO Q8H PRN for PAIN, TAB 01/11/19 Allopurinol* (Allopurinol*) 100 Mg Tablet, 100 MG PO DAILY, TAB 01/11/19 Rifaximin* (Xifaxan*) 550 Mg Tablet, 550 MG PO BID, TAB 01/11/19 Ondansetron Hcl* (Zofran*) 4 Mg Tab, 4 MG PO Q4H PRN for NAUSEA AND OR VOMITING, TAB 01/11/19 Metoprolol Tartrate* (Lopressor*) 100 Mg Tablet, 100 MG PO DAILY, #60 TAB HOLD FOR SBP<110 OR HR<60 01/11/19 Levothyroxine Sodium* (Levothyroxine Sodium*) 200 Mcg Tablet, 200 MCG PO BEFORE BREAKFAST, #30 TAB 01/11/19 Levothyroxine Sodium* (Levothyroxine Sodium*) 25 Mcg Tablet, 25 MCG PO BEFORE BREAKFAST, #30 TAB 01/11/19 Ipratropium-Albuterol (Ipratropium-Albuterol) 0.5-3 Mg/3 Ml Ampul.neb, 3 ML INHALATION Q6 PRN for WHEEZING AND SOB, #30 VIAL 01/11/19 Hydrocodone/Acetaminophen ([place] 5-325 Tablet) 1 Each Tablet, 1 EACH PO Q6H PRN for PAIN, TAB 01/11/19 Gabapentin* (Gabapentin*) 100 Mg Capsule, 100 MG PO TID, #90 CAP 01/11/19 Furosemide* (Furosemide*) 40 Mg Tablet, 40 MG PO DAILY, TAB 01/11/19 Folic Acid* (Folic Acid*) 1 Mg Tablet, 1 MG PO DAILY, TAB 01/11/19 Tamsulosin Hcl* (Flomax*) 0.4 Mg Cap.er.24h, 0.4 MG PO HS, CAP 01/11/19 Ferrous Sulfate* (Ferrous Sulfate*) 325 Mg Tabec, 325 MG PO DAILY, TAB 01/11/19 Ertapenem Sodium (Invanz) 1 Gm Vial, 1 GM IM DAILY, VIAL 01/11/19 Epoetin Ghulam (Epogen) 10,000 Units/Ml Soln, 78973 UNITS SC Q TUE,SHARONA,SAT, VIAL 01/11/19 Lactulose* (Lactulose*) 10 Gm/15 Ml Solution, 30 ML PO Q6, ML 01/11/19 Docusate Sodium* (Colace*) 100 Mg Capsule, 200 MG PO QHS, #30 CAP 01/11/19 Dorzolamide-Timolol* (Cosopt*) 2%-0.5% - 10 Ml Soln, 1 DROP BOTH EYES BID, BOTTLE 01/11/19 Budesonide* (Budesonide*) 0.5 Mg/2 Ml Ampul.neb, 0.5 MG INHALATION BID, AMP 01/11/19 Lorazepam* (Lorazepam*) 1 Mg Tablet, 1 MG PO BID PRN for ANXIETY, #30 TAB 01/11/19 Ascorbic Acid (Vitamin C) 500 Mg Tab, 500 MG PO DAILY, TAB 01/11/19 Arformoterol Tartrate (Brovana) 15 Mcg/2 Ml Vial.neb, 15 MCG INHALATION BID, VIAL 01/11/19 Spironolactone* (Aldactone*) 50 Mg Tablet, 50 MG PO DAILY, #30 TAB HOLD FOR SBP<110 01/11/19 Salmeterol Xinaf/Fluticasone* (Advair*) 250-50 Diskus Inhaler, 1 INH INHALATION BID, #1 INHALER 01/11/19 Acetaminophen* (Acetaminophen*) 500 MG Extra Strength Tablet, 500 MG PO Q4H PRN for MILD PAIN LEVEL 1-3, TAB 01/11/19 Discontinued Reported Medications Lorazepam* (Lorazepam*) 1 Mg Tablet, 1 MG PO Q6 PRN for ANXIETY, #60 TAB 01/11/19 Allopurinol* (Zyloprim*) 100 Mg Tablet, 100 MG PO DAILY, TAB 09/18/18 Rifaximin* (Xifaxan*) 550 Mg Tablet, 550 MG PO BID, TAB 09/18/18 Thiamine* (Vitamin B-1*) 100 Mg Tablet, 100 MG PO DAILY, TAB 09/18/18 Metoprolol Succinate* (Toprol XL*) 100 Mg Tab.sr.24h, 100 MG PO DAILY, #30 TAB HOLD FOR SBP<110 OR HR<60 09/18/18 Sodium Bicarbonate* (Sodium Bicarbonate*) 650 Mg Tablet, 650 MG PO TID, TAB 09/18/18 Albuterol Sulfate* (Ventolin HFA*) 18 Gm Hfa.aer.ad, 2 PUFF INHALATION Q4H, #1 INHALER 09/18/18 Pantoprazole* (Protonix*) 40 Mg Tablet.dr, 40 MG PO DAILY, TAB 09/18/18 Oxycodone Hcl* (Oxycontin*) 10 Mg Tab.sr.12h, 10 MG PO Q6H, TAB 09/18/18 Gabapentin* (Gabapentin*) 100 Mg Capsule, 100 MG PO TID, #90 CAP 09/18/18 Levothyroxine Sodium* (Levothyroxine Sodium*) 100 Mcg Tablet, 200 MCG PO BEFORE BREAKFAST, #30 TAB 09/18/18 Ipratropium [place]* (Atrovent HFA*) 12.9 Gm Aer.w.adap, 1 VIAL INHALATION Q6H PRN for WHEEZING AND SOB, #1 INHALER 09/18/18 Furosemide* (Furosemide*) 40 Mg Tablet, 40 MG PO DAILY, TAB 09/18/18 Folic Acid* (Folic Acid*) 1 Mg Tablet, 1 MG PO DAILY, TAB 09/18/18 Tamsulosin Hcl* (Flomax*) 0.4 Mg Cap.er.24h, 0.4 MG PO DAILY, CAP 09/18/18 Ferrous Sulfate* (Ferrous Sulfate*) 325 Mg Tabec, 325 MG PO DAILY, TAB 09/18/18 Spironolactone* (Aldactone*) 50 Mg Tablet, 50 MG PO DAILY, #30 TAB HOLD FOR SBP<110 09/18/18 Salmeterol Xinaf/Fluticasone* (Advair*) 250-50 Diskus Inhaler, 1 INH INHALATION BID, #1 INHALER 09/18/18 Discontinued Scripts Docusate Sodium* (Docusate Sodium*) 100 Mg Capsule, 200 MG PO QHS, #60 CAP Prov:MILLICENT GOVEA 06/26/18 Medications Current Medications IV Flush (NS 3 ml) 3 ml PER PROTOCOL IV ; Start 01/11/19 at 13:00 Ondansetron HCl (Zofran Inj) 4 mg Q6H PRN IV NAUSEA/VOMITING; Start 01/11/19 at 13:00 Acetaminophen (Tylenol Tab) 650 mg Q6H PRN PO .PAIN 1-3 OR TEMP; Start 01/11/19 at 13:00 Hydromorphone HCl (Dilaudid) 0.5 mg Q4H PRN IV .PAIN 7-10 Last administered on 01/11/19at 13:16; Admin Dose 0.5 MG; Start 01/11/19 at 13:00 Famotidine (Pepcid Iv) 20 mg Q12 IV ; Start 01/11/19 at 21:00 Enoxaparin Sodium (Lovenox) 30 mg DAILY SC ; Start 01/12/19 at 09:00 Albuterol (Proventil 0.083% (Neb)) 2.5 mg Q6 PRN HHN shortness of breath; Start 01/11/19 at 13:00 Spironolactone (Aldactone) 50 mg DAILY PO ; Start 01/12/19 at 09:00 Furosemide (Lasix) 20 mg DAILY IV ; Start 01/12/19 at 09:00 Metoprolol Succinate (Toprol Xl) 50 mg DAILY PO ; Start 01/12/19 at 09:00 Allergies: Coded Allergies: Penicillins (Unverified Allergy, Unknown, 01/11/19) Past Surgical History Past Surgical Hx: other (Multiple paracentesis ) Family History Significant Family History: no pertinent family hx Social History Alcohol Use: none Smoking Status: Current every day smoker Exam/Review of Systems Exam Vitals Vital Signs Date Temp Pulse Resp B/P (MAP) Pulse Ox O2 O2 Flow FiO2 Time Delivery Rate 01/11/19 86 16:00 01/11/19 Nasal 2.0 14:00 Cannula 01/11/19 98.7 17 147/69 98 12:49 (95) Exam Constitutional: distress Psych: no complaints Head: normocephalic Eyes: nl conjunctiva ENMT: nl external ears & nose Neck: supple, non-tender Respiratory: clear to auscultation, congested cough, diminished breath sounds Cardiovascular: regular rate and rhythm, nl pulses Gastrointestinal: soft, non-tender, ascites, distended Musculoskeletal: joint tenderness, muscle weakness, swelling Extremities: normal pulses Neurological: E LEARNING SPECIALIST II-XII intact, nl mental status, nl speech, nl strength Lymph: nl lymph nodes Results Result Diagram: 01/11/19 0859 01/11/19 0859 Results 24hrs Laboratory Tests Test 01/11/19 08:59 01/11/19 09:00 01/11/19 14:55 White Blood Count 10.0 # Red Blood Count 3.75 L Hemoglobin 8.1 #L Hematocrit 29.0 L Mean Corpuscular Volume 77.3 L Mean Corpuscular Hemoglobin 21.6 L Mean Corpuscular Hemoglobin Concent 27.9 L Red Cell Distribution Width 22.0 H Platelet Count 97 L Mean Platelet Volume Immature Granulocytes % 1.000 H Neutrophils % Segmented Neutrophils % (Manual) 71 Lymphocytes % Lymphocytes % (Manual) 6 L Monocytes % Monocytes % (Manual) 15 H Eosinophils % Eosinophils % (Manual) 8 H Basophils % Basophils % (Manual) 1 Nucleated Red Blood Cells % 0.0 Immature Granulocytes # 0.100 H Neutrophils # Lymphocytes (Manual) 0.6 L Lymphocytes # Monocytes # Monocytes # (Manual) 1.5 H Eosinophils # Basophils # Basophils # (Manual) 0.1 H Nucleated Red Blood Cells # Platelet Estimate DECREASED Hypochromasia 3+ Poikilocytosis 1+ Anisocytosis 2+ Microcytosis 2+ Ovalocytes 1+ Sodium Level 139 Potassium Level 4.5 Chloride Level 103 Carbon Dioxide Level 24 Anion Gap 12 Blood Urea Nitrogen 53 H Creatinine 1.62 H Est Glomerular Filtrat Rate mL/min 44 L Glucose Level 101 Calcium Level 9.0 Total Bilirubin 0.2 Direct Bilirubin 0.00 Indirect Bilirubin 0.2 Aspartate Amino Transf (AST/SGOT) 33 Alanine Aminotransferase (ALT/SGPT) 23 Alkaline Phosphatase 92 Troponin I < 0.012 < 0.012 B-Type Natriuretic Peptide 3100 H Total Protein 7.0 Albumin 4.1 Globulin 2.90 Albumin/Globulin Ratio 1.41 Ethyl Alcohol Level 24.0 H Creatine Kinase 35 Creatine Kinase Index 2.5 Creatinine Kinase MB (Mass) 0.88 Medications Medication Current Medications IV Flush (NS 3 ml) 3 ml PER PROTOCOL IV ; Start 01/11/19 at 13:00 Ondansetron HCl (Zofran Inj) 4 mg Q6H PRN IV NAUSEA/VOMITING; Start 01/11/19 at 13:00 Acetaminophen (Tylenol Tab) 650 mg Q6H PRN PO .PAIN 1-3 OR TEMP; Start 01/11/19 at 13:00 Hydromorphone HCl (Dilaudid) 0.5 mg Q4H PRN IV .PAIN 7-10 Last administered on 01/11/19at 13:16; Admin Dose 0.5 MG; Start 01/11/19 at 13:00 Famotidine (Pepcid Iv) 20 mg Q12 IV ; Start 01/11/19 at 21:00 Enoxaparin Sodium (Lovenox) 30 mg DAILY SC ; Start 01/12/19 at 09:00 Albuterol (Proventil 0.083% (Neb)) 2.5 mg Q6 PRN HHN shortness of breath; Start 01/11/19 at 13:00 Spironolactone (Aldactone) 50 mg DAILY PO ; Start 01/12/19 at 09:00 Furosemide (Lasix) 20 mg DAILY IV ; Start 01/12/19 at 09:00 Metoprolol Succinate (Toprol Xl) 50 mg DAILY PO ; Start 01/12/19 at 09:00 ELADIO DELGADO MD Jan 11, 2019 17:38
[2019-01-11 20:00] VITALS: BP 162/74; PULSE 85; PULSE 94; RESP 20
[2019-01-11] MEDS: FAMOTIDINE 20 MG INJ IV SCH (21:24)
[2019-01-11] MEDS: LORAZEPAM 2 MG INJ IV PRN (23:55)
[2019-01-12] VITALS (11 sets, daily range): BP systolic 130–170; BP diastolic 61–79; PULSE 74–101; RESP 16–20
--- NOTE | 2019-01-12 08:10 | CONS ---
Assessment/Plan Assessment/Plan Hospital Course (Demo Recall) 63 yo male Interval hx: C/O pain everywhere, and states he wants more pain medication. Denies nausea. Denies melena or hematochezia. EAting well. LFTs wnl. 1. Microcytic hypochromic anemia, most probably related to iron deficiency. -anemia work up from previous visit last week noted. NEG FOB -EGD done April 2018 showed duodenal ulcer and gastritis 2. 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 -US on 01/07 did not ascites 3. Nicotine dependence 4. Congestive heart failure. -EF of 60% 5. Chronic obstructive pulmonary disease. 6. Renal failure. PLAN: Pain management, recommend pain consult Pt needs EGD and colonoscopy, particularly colonoscopy. Spoke with patient who is refusing to have either saying why would he have the EGD and colon if his pain is not controlled. States when he has pain control he will consider the procedures. Continue pepcid, lasix and aldactone Pt examined and plan of care discussed with Dr. Casiano Consultation Date/Type/Reason Admit Date/Time Jan 11, 2019 at 09:53 Initial Consult Date 01/11/19 Requesting Provider: WERNER KING Date/Time of Note DATE: 01/12/19 TIME: 08:09 24 HR Interval Summary Free Text/Dictation 63 yo male with h/o alcoholic liver cirrhosis, CHF, lower extremity osteomyelitis, hypothyroidism was recently admitted 01/05 to [facility] with c/o SOB, abd distention and was found to have hgb in 5s. Anemia work up was done. Paracentesis done. MT was ruled out. Pt signed out AMA on 01/10 and returned to ER on 01/11 with SOB, chest pain and abdominal pain requesting dilaudid. Exam/Review of Systems Exam Vitals Vital Signs Date Temp Pulse Resp B/P (MAP) Pulse Ox O2 O2 Flow FiO2 Time Delivery Rate 01/12/19 Nasal 2.0 07:44 Cannula 01/12/19 98.0 80 18 130/61 97 07:30 (84) Intake and Output 01/11/19 01/11/19 01/12/19 1515:00 23:00 07:00 IntakeIntake Total 400 ml 900 ml OutputOutput Total 1500 ml 1700 ml BalanceBalance -1100 ml -800 ml Constitutional: alert, oriented Eyes: PERRL ENMT: mucosa pink and moist Respiratory: diminished breath sounds Cardiovascular: regular rate and rhythm Gastrointestinal: soft, non-tender Extremities: other (weak pulses BLE) Neurological: nl mental status, nl speech Results Result Diagram: 01/11/19 0859 01/11/19 0859 Results 24hrs Laboratory Tests Test 01/11/19 08:59 01/11/19 09:00 01/11/19 14:55 01/11/19 20:45 White Blood Count 10.0 # Red Blood Count 3.75 L Hemoglobin 8.1 #L Hematocrit 29.0 L Mean Corpuscular Volume 77.3 L Mean Corpuscular 21.6 L Hemoglobin Mean Corpuscular 27.9 L Hemoglobin Concent Red Cell Distribution 22.0 H Width Platelet Count 97 L Mean Platelet Volume Immature Granulocytes % 1.000 H Neutrophils % Segmented Neutrophils 71 % (Manual) Lymphocytes % Lymphocytes % (Manual) 6 L Monocytes % Monocytes % (Manual) 15 H Eosinophils % Eosinophils % (Manual) 8 H Basophils % Basophils % (Manual) 1 Nucleated Red Blood 0.0 Cells % Immature Granulocytes # 0.100 H Neutrophils # Lymphocytes (Manual) 0.6 L Lymphocytes # Monocytes # Monocytes # (Manual) 1.5 H Eosinophils # Basophils # Basophils # (Manual) 0.1 H Nucleated Red Blood Cells # Platelet Estimate DECREASED Hypochromasia 3+ Poikilocytosis 1+ Anisocytosis 2+ Microcytosis 2+ Ovalocytes 1+ Sodium Level 139 Potassium Level 4.5 Chloride Level 103 Carbon Dioxide Level 24 Anion Gap 12 Blood Urea Nitrogen 53 H Creatinine 1.62 H Est Glomerular Filtrat 44 L Rate mL/min Glucose Level 101 Calcium Level 9.0 Total Bilirubin 0.2 Direct Bilirubin 0.00 Indirect Bilirubin 0.2 Aspartate Amino 33 Transf (AST/SGOT) Alanine 23 Aminotransferase (ALT/SG PT) Alkaline Phosphatase 92 Troponin I < 0.012 < 0.012 < 0.012 B-Type Natriuretic 3100 H Peptide Total Protein 7.0 Albumin 4.1 Globulin 2.90 Albumin/Globulin Ratio 1.41 Ethyl Alcohol Level 24.0 H Creatine Kinase 35 105 Creatine Kinase Index 2.5 1.0 Creatinine Kinase MB 0.88 1.01 (Mass) Medications Medication Current Medications IV Flush (NS 3 ml) 3 ml PER PROTOCOL IV ; Start 01/11/19 at 13:00 Ondansetron HCl (Zofran Inj) 4 mg Q6H PRN IV NAUSEA/VOMITING; Start 01/11/19 at 13:00 Acetaminophen (Tylenol Tab) 650 mg Q6H PRN PO .PAIN 1-3 OR TEMP; Start 01/11/19 at 13:00 Hydromorphone HCl (Dilaudid) 0.5 mg Q4H PRN IV .PAIN 7-10 Last administered on 01/11/19at 22:13; Admin Dose 0.5 MG; Start 01/11/19 at 13:00 Famotidine (Pepcid Iv) 20 mg Q12 IV Last administered on 01/11/19at 21:24; Admin Dose 20 MG; Start 01/11/19 at 21:00 Enoxaparin Sodium (Lovenox) 30 mg DAILY SC ; Start 01/12/19 at 09:00 Albuterol (Proventil 0.083% (Neb)) 2.5 mg Q6 PRN HHN shortness of breath; Start 01/11/19 at 13:00 Spironolactone (Aldactone) 50 mg DAILY PO ; Start 01/12/19 at 09:00 Furosemide (Lasix) 20 mg DAILY IV ; Start 01/12/19 at 09:00 Metoprolol Succinate (Toprol Xl) 50 mg DAILY PO ; Start 01/12/19 at 09:00 Lorazepam (Ativan) 0.5 mg Q6H PRN IV ANXIETY Last administered on 01/11/19at 23:55; Admin Dose 0.5 MG; Start 01/11/19 at 23:00 DEYVI HAN Jan 12, 2019 08:10
[2019-01-12] MEDS: SPIRONOLACTONE 50 MG TAB PO SCH (08:45)
[2019-01-12] MEDS: FAMOTIDINE 20 MG INJ IV SCH ×2 (08:45→20:29)
[2019-01-12] MEDS: METOPROLOL (XL) 50 MG TAB PO SCH (08:46)
[2019-01-12] MEDS: FUROSEMIDE 20 MG INJ IV SCH (08:46)
[2019-01-12] MEDS: HYDROmorphONE 0.5 MG/0.5 ML SYG IV PRN ×3 (08:58→18:56)
[2019-01-12] MEDS: ENOXAPARIN 30 MG/0.3 ML SYG SC SCH (09:18)
--- NOTE | 2019-01-12 12:41 | HP ---
Date/Time of Note Date/Time of Note DATE: 01/12/19 TIME: 12:40 Assessment/Plan VTE Prophylaxis Risk score (from [facility])>0 risk: 4 SCD applied (from [facility]): Yes Pharmacological prophylaxis: NA/contraindicated Pharm contraindication: thrombocytopenia Lines/Catheters IV [facility]ter Type [facility]from [facility] Saline Lock Urinary Cath still in place: No Assessment/Plan Assessment/Plan -Shortness of breath, rule out acute coronary syndrome -Acute on chronic diastolic congestive heart failure. Continue Lasix. Dr. Foley is following in cardiology consultation. -COPD exacerbation, continue bronchodilators, steroids, and oxygen supplementation. -Anemia, Dr. Mayes is following in gastroenterology consultation. -Alcoholic liver cirrhosis -Acute kidney injury on chronic kidney disease. Dr. Leung is following in nephrology consultation. -Bilateral lower extremities chronic venous stasis -Left foot plantar ulcer. Dr. Younger is following in podiatry consultation. -Obesity -Nicotine dependence, continue nicotine patch, cessation is strongly advised. -Continues alcohol use, cessation is strongly advised. -Poor medical compliance Further recommendations based on clinical course. Plan of care discussed with Dr. Lara. Result Diagram: 01/11/19 0859 01/11/19 0859 Results 24hrs Laboratory Tests Test 01/11/19 14:55 01/11/19 20:45 Creatine Kinase 35 105 Creatine Kinase Index 2.5 1.0 Creatinine Kinase MB (Mass) 0.88 1.01 Troponin I < 0.012 < 0.012 HPI/ROS Admit Date/Time Admit Date/Time Jan 11, 2019 at 09:53 Hx of Present Illness The patient is 63-year-old male with diastolic congestive heart failure COPD, alcoholic liver cirrhosis, chronic kidney disease, BPH, gastritis, history of bilateral lower extremity cellulitis and chronic edema, history of left foot plantar ulcer, hypothyroidism BPH, chronic pain and anxiety. Patient with poor medical compliance, continues to abuse tobacco and alcohol. Patient was recently admitted for acute anemia requiring blood transfusion, congestive heart failure and COPD exacerbation it and left AGAINST MEDICAL ADVICE. Patient presented to the emergency room on Saturday with complaints of shortness of breath, difficulty walking, and bilateral lower extremities pain. Patient is admitted for further evaluation and management to telemetry floor. PMH/Family/Social Past Medical History Medical History: congestive heart failure, hypertension, hypothyroid, other (COPD, alcoholic liver cirrhosis) Medications Current Medications IV Flush (NS 3 ml) 3 ml PER PROTOCOL IV ; Start 01/11/19 at 13:00 Ondansetron HCl (Zofran Inj) 4 mg Q6H PRN IV NAUSEA/VOMITING; Start 01/11/19 at 13:00 Acetaminophen (Tylenol Tab) 650 mg Q6H PRN PO .PAIN 1-3 OR TEMP; Start 01/11/19 at 13:00 Hydromorphone HCl (Dilaudid) 0.5 mg Q4H PRN IV .PAIN 7-10 Last administered on 01/12/19 08:58; Admin Dose 0.5 MG; Start 01/11/19 at 13:00 Famotidine (Pepcid Iv) 20 mg Q12 IV Last administered on 01/12/19 08:45; Admin Dose 20 MG; Start 01/11/19 at 21:00 Enoxaparin Sodium (Lovenox) 30 mg DAILY SC Last administered on 01/12/19 09:18; Admin Dose 30 MG; Start 01/12/19 at 09:00 Albuterol (Proventil 0.083% (Neb)) 2.5 mg Q6 PRN HHN shortness of breath; Start 01/11/19 at 13:00 Spironolactone (Aldactone) 50 mg DAILY PO Last administered on 01/12/19 08:45; Admin Dose 50 MG; Start 01/12/19 at 09:00 Furosemide (Lasix) 20 mg DAILY IV Last administered on 01/12/19 08:46; Admin Dose 20 MG; Start 01/12/19 at 09:00 Metoprolol Succinate (Toprol Xl) 50 mg DAILY PO Last administered on 01/12/19 08:46; Admin Dose 50 MG; Start 01/12/19 at 09:00 Lorazepam (Ativan) 0.5 mg Q6H PRN IV ANXIETY Last administered on 01/11/19 23:55; Admin Dose 0.5 MG; Start 01/11/19 at 23:00 Coded Allergies: Penicillins (Unverified Allergy, Unknown, 01/11/19) Past Surgical History Past Surgical Hx: other (s/p I&D of necrotic ulcer left foot in [place] [address] Younger) Family History Significant Family History: no pertinent family hx Social History Alcohol Use: heavy Smoking Status: Current every day smoker Drug Use: none Exam/Review of Systems Vital Signs Vitals Vital Signs Date Temp Pulse Resp B/P (MAP) Pulse Ox O2 O2 Flow FiO2 Time Delivery Rate 01/12/19 97.9 80 16 132/79 98 Room Air 11:16 (96) 01/12/19 2.0 07:44 Intake and Output 01/11/19 01/11/19 01/12/19 1515:00 23:00 07:00 IntakeIntake Total 400 ml 900 ml OutputOutput Total 1500 ml 1700 ml BalanceBalance -1100 ml -800 ml Exam Constitutional: alert, oriented Head: normocephalic Neck: supple Respiratory: diminished breath sounds, wheezing Cardiovascular: regular rate and rhythm Gastrointestinal: soft, distended Extremities: normal pulses, edema, other (Bilateral lower extremities erythema) Neurological: nl mental status Skin: other (Left foot plantar ulcer) MILLICENT GOVEA Jan 12, 2019 12:41
--- NOTE | 2019-01-12 13:34 | CONS ---
Assessment/Plan Assessment/Plan Hospital Course (Demo Recall) No acute changes, looks comfortable, no fevers Antimicrobials: none Physical examination: This is a wasted well-developed chronically ill-appearing elderly man who is in no distress. Head atraumatic normocephalic sclera nonicteric. Neck is supple chest rise symmetrical breath sounds diminished bases. Heart: S1-S2. Abdomen soft bowel sounds present. Extremities without cyanosis. Assessment: 1. S/p systemic inflammatory response syndrome 2. S/p COPD exacerbation 3. Alcohol abuse 4. Bilateral lower extremities chronic venous stasis 5. Cirrhosis with recurrent ascites 6. Chronic kidney disease 7. CHF Plan: Stable off abx, continue supportive care Consultation Date/Type/Reason Admit Date/Time Jan 11, 2019 at 09:53 Initial Consult Date Type of Consult id Requesting Provider: WERNER KING Date/Time of Note DATE: 01/12/19 TIME: 13:33 Exam/Review of Systems Exam Vitals Vital Signs Date Temp Pulse Resp B/P (MAP) Pulse Ox O2 O2 Flow FiO2 Time Delivery Rate 01/12/19 74 13:14 01/12/19 97.9 16 132/79 98 Room Air 11:16 (96) 01/12/19 2.0 07:44 Intake and Output 01/11/19 01/11/19 01/12/19 1515:00 23:00 07:00 IntakeIntake Total 400 ml 900 ml OutputOutput Total 1500 ml 1700 ml BalanceBalance -1100 ml -800 ml Results Result Diagram: 01/11/19 0859 01/11/19 0859 Results 24hrs Laboratory Tests Test 01/11/19 14:55 01/11/19 20:45 Creatine Kinase 35 105 Creatine Kinase Index 2.5 1.0 Creatinine Kinase MB (Mass) 0.88 1.01 Troponin I < 0.012 < 0.012 Medications Medication Current Medications IV Flush (NS 3 ml) 3 ml PER PROTOCOL IV ; Start 01/11/19 at 13:00 Ondansetron HCl (Zofran Inj) 4 mg Q6H PRN IV NAUSEA/VOMITING; Start 01/11/19 at 13:00 Acetaminophen (Tylenol Tab) 650 mg Q6H PRN PO .PAIN 1-3 OR TEMP; Start 01/11/19 at 13:00 Hydromorphone HCl (Dilaudid) 0.5 mg Q4H PRN IV .PAIN 7-10 Last administered on 01/12/19 08:58; Admin Dose 0.5 MG; Start 01/11/19 at 13:00 Famotidine (Pepcid Iv) 20 mg Q12 IV Last administered on 01/12/19 08:45; Admin Dose 20 MG; Start 01/11/19 at 21:00 Enoxaparin Sodium (Lovenox) 30 mg DAILY SC Last administered on 01/12/19 09:18; Admin Dose 30 MG; Start 01/12/19 at 09:00 Albuterol (Proventil 0.083% (Neb)) 2.5 mg Q6 PRN HHN shortness of breath; Start 01/11/19 at 13:00 Spironolactone (Aldactone) 50 mg DAILY PO Last administered on 01/12/19 08:45; Admin Dose 50 MG; Start 01/12/19 at 09:00 Furosemide (Lasix) 20 mg DAILY IV Last administered on 01/12/19 08:46; Admin Dose 20 MG; Start 01/12/19 at 09:00 Metoprolol Succinate (Toprol Xl) 50 mg DAILY PO Last administered on 01/12/19 08:46; Admin Dose 50 MG; Start 01/12/19 at 09:00 Lorazepam (Ativan) 0.5 mg Q6H PRN IV ANXIETY Last administered on 01/11/19 23:55; Admin Dose 0.5 MG; Start 01/11/19 at 23:00 MELISSA NASH NP Jan 12, 2019 13:34
[2019-01-12] MEDS: LORAZEPAM 2 MG INJ IV PRN ×2 (14:33→21:31)
--- NOTE | 2019-01-12 16:10 | CONS ---
Assessment/Plan Assessment/Plan Assessment/Plan (Daily) 1. acute on chronic renal failure due to Type II hepatorenal syndrome 2. SIRS 3. anemia of CKD 5. Decompensated Liver cirrhosis with Symptomatic ascites 6. H/O HTN 7. h/o Liver cirrhosis with ascites 8. H/o Diastolic CHF 9. Bilateral LE chronic venous stasis Plan: Continue IV abx as per ID , renally dose all abx , monitor electorlytes and replace as needed, Podiatry consulte has been requested on patient BUN/Cr 42/1.36- Electrolyte stable, lasix 20mg IV daily, spironolactone 50mg po daily , Toprol Xl 50mg po daily pt has no objective signs of Pain, he has been constantly requesting IV dialudid, drug seeking behaviour will follow up Consultation Date/Type/Reason Admit Date/Time Jan 11, 2019 at 09:53 Initial Consult Date 01/11/19 Type of Consult Nephrology Requesting Provider: WERNER KING Date/Time of Note DATE: 01/12/19 TIME: 16:10 24 HR Interval Summary Free Text/Dictation c/o LE pain , claims dialudid 0.,5 mg not working, pt is drug seeking, BP stable, afebrile Exam/Review of Systems Exam Vitals Vital Signs Date Temp Pulse Resp B/P (MAP) Pulse Ox O2 O2 Flow FiO2 Time Delivery Rate 01/12/19 97.8 77 20 153/72 99 Room Air 15:31 (99) 01/12/19 2.0 07:44 Intake and Output 01/11/19 01/11/19 01/12/19 1515:00 23:00 07:00 IntakeIntake Total 400 ml 900 ml OutputOutput Total 1500 ml 1700 ml BalanceBalance -1100 ml -800 ml Exam Constitutional: alert, awake, on acute distress Respiratory: clear to auscultation, no crackles no wheezing Cardiovascular: regular rate and rhythm, nl pulses Gastrointestinal: soft, non-tender, ascites, distended Musculoskeletal: joint tenderness, muscle weakness, swelling Extremities: chronic LE venous stasis Neurological: FAN BLADE ALIGNER II-XII intact, nl mental status, nl speech, nl strength Lymph: nl lymph nodes Results Result Diagram: 01/12/19 1420 01/12/19 1420 Results 24hrs Laboratory Tests Test 01/11/19 20:45 01/12/19 14:20 Creatine Kinase 105 Creatine Kinase Index 1.0 Creatinine Kinase MB (Mass) 1.01 Troponin I < 0.012 White Blood Count 10.9 H Red Blood Count 4.14 L Hemoglobin 8.9 L Hematocrit 32.6 L Mean Corpuscular Volume 78.7 L Mean Corpuscular Hemoglobin 21.5 L Mean Corpuscular Hemoglobin Concent 27.3 L Red Cell Distribution Width 23.0 H Platelet Count 97 L Mean Platelet Volume Immature Granulocytes % 1.400 H Neutrophils % Segmented Neutrophils % (Manual) 62 Lymphocytes % Lymphocytes % (Manual) 7 L Reactive Lymphocytes % (Manual) 2 H Monocytes % Monocytes % (Manual) 24 H Eosinophils % Eosinophils % (Manual) 6 Basophils % Nucleated Red Blood Cells % 0.0 Immature Granulocytes # 0.150 H Neutrophils # Lymphocytes (Manual) 0.7 L Lymphocytes # Reactive Lymphocytes # 0.2 H Monocytes # Monocytes # (Manual) 2.6 H Eosinophils # Basophils # Nucleated Red Blood Cells # Polychromasia 1+ Poikilocytosis 2+ Anisocytosis 1+ Microcytosis 1+ Spherocytes 1+ Target Cells 1+ Echinocytes 1+ Acanthocytes 1+ Schistocytes 1+ Sodium Level 139 Potassium Level 5.1 Chloride Level 106 Carbon Dioxide Level 22 Anion Gap 11 Blood Urea Nitrogen 42 #H Creatinine 1.36 H Est Glomerular Filtrat Rate mL/min 53 L Glucose Level 129 Hemoglobin A1c 4.9 Calcium Level 8.9 Total Bilirubin 0.5 Direct Bilirubin 0.00 Indirect Bilirubin 0.5 Aspartate Amino Transf (AST/SGOT) 47 H Alanine Aminotransferase (ALT/SGPT) 26 Alkaline Phosphatase 88 Total Protein 7.1 Albumin 3.9 Globulin 3.20 Albumin/Globulin Ratio 1.21 Medications Medication Current Medications IV Flush (NS 3 ml) 3 ml PER PROTOCOL IV ; Start 01/11/19 at 13:00 Ondansetron HCl (Zofran Inj) 4 mg Q6H PRN IV NAUSEA/VOMITING; Start 01/11/19 at 13:00 Acetaminophen (Tylenol Tab) 650 mg Q6H PRN PO .PAIN 1-3 OR TEMP; Start 01/11/19 at 13:00 Hydromorphone HCl (Dilaudid) 0.5 mg Q4H PRN IV .PAIN 7-10 Last administered on 01/12/19at 13:35; Admin Dose 0.5 MG; Start 01/11/19 at 13:00 Famotidine (Pepcid Iv) 20 mg Q12 IV Last administered on 01/12/19 08:45; Admin Dose 20 MG; Start 01/11/19 at 21:00 Enoxaparin Sodium (Lovenox) 30 mg DAILY SC Last administered on 01/12/19 09:18; Admin Dose 30 MG; Start 01/12/19 at 09:00 Albuterol (Proventil 0.083% (Neb)) 2.5 mg Q6 PRN HHN shortness of breath; Start 01/11/19 at 13:00 Spironolactone (Aldactone) 50 mg DAILY PO Last administered on 01/12/19 08:45; Admin Dose 50 MG; Start 01/12/19 at 09:00 Furosemide (Lasix) 20 mg DAILY IV Last administered on 01/12/19 08:46; Admin Dose 20 MG; Start 01/12/19 at 09:00 Metoprolol Succinate (Toprol Xl) 50 mg DAILY PO Last administered on 01/12/19 08:46; Admin Dose 50 MG; Start 01/12/19 at 09:00 Lorazepam (Ativan) 0.5 mg Q6H PRN IV ANXIETY Last administered on 01/12/19 14:33; Admin Dose 0.5 MG; Start 01/11/19 at 23:00 ELADIO DELGADO MD Jan 12, 2019 16:10
--- NOTE | 2019-01-12 17:16 | CONS ---
Assessment/Plan Assessment/Plan Problems: (1) Lower back pain (2) Ankle pain (3) Chronic pain (4) Chronic kidney disease Status: Acute (5) CHF (congestive heart failure), NYHA class I Status: Acute (6) Lower extremity weakness Status: Acute Assessment/Plan (Daily) Highly recommend pain management for this patient for chronic pain of the lower back and ankle pain. Consultation Date/Type/Reason Admit Date/Time Jan 11, 2019 at 09:53 Date of Consultation: Jan 12, 2019 Type of Consult Foot and ankle surgery Reason for Consultation Evaluation of foot and ankle pain. Date/Time of Note DATE: 01/12/19 TIME: 17:14 Hx of Present Illness Thank you very much for your kind consultation. As you very well know, this is a 63 yo male with h/o alcoholic liver cirrhosis, CHF, lower extremity osteomyelitis, hypothyroidism was recently admitted 01/05 to [facility] with c/o SOB, abdominal distention and severe anemia. Pt signed out AMA on 01/10 and returned to ER on 01/11 with SOB, chest pain and abdominal pain. Patient complains of pain in his lower back, radiating to his knees and ankles. Patient seems upset and is demanding higher doses of dilaudid. States that "they don't want to give me more pain killers". He complains that he is only getting 0.5mg and he wants "at least 1.5mg every four hours." Patient does not report foot and ankle trauma. He denies fever, chills, nausea, or vomiting. Constitutional: no complaints Eyes: no complaints ENT: no complaints Past Medical History As per history of present illness. Home Meds Reported Medications Thiamine* (Vitamin B-1*) 100 Mg Tablet, 100 MG PO DAILY, TAB 01/11/19 Sodium Bicarbonate* (Sodium Bicarbonate*) 325 Mg Tablet, 325 MG PO TID, TAB 01/11/19 Simethicone* (Mylicon*) 80 Mg Tab, 80 MG PO Q6H, TAB 01/11/19 Albuterol Sulfate (Proair Respiclick) 90 Mcg Aer.pow.ba, 2 PUFFS INHALATION Q4H PRN for SHORTNESS OF BREATH, #1 BOTTLE 01/11/19 Pantoprazole* (Pantoprazole*) 40 Mg Tablet.dr, 40 MG PO AC BREAKFAST, TAB 01/11/19 Oxycodone Hcl* (Oxycontin*) 15 Mg Tab.sr.12h, 15 MG PO Q6H PRN for PAIN, TAB 01/11/19 Oxycodone Hcl* (Oxycontin*) 10 Mg Tab.sr.12h, 10 MG PO Q8H PRN for PAIN, TAB 01/11/19 Allopurinol* (Allopurinol*) 100 Mg Tablet, 100 MG PO DAILY, TAB 01/11/19 Rifaximin* (Xifaxan*) 550 Mg Tablet, 550 MG PO BID, TAB 01/11/19 Ondansetron Hcl* (Zofran*) 4 Mg Tab, 4 MG PO Q4H PRN for NAUSEA AND OR VOMITING, TAB 01/11/19 Metoprolol Tartrate* (Lopressor*) 100 Mg Tablet, 100 MG PO DAILY, #60 TAB HOLD FOR SBP<110 OR HR<60 01/11/19 Levothyroxine Sodium* (Levothyroxine Sodium*) 200 Mcg Tablet, 200 MCG PO BEFORE BREAKFAST, #30 TAB 01/11/19 Levothyroxine Sodium* (Levothyroxine Sodium*) 25 Mcg Tablet, 25 MCG PO BEFORE BREAKFAST, #30 TAB 01/11/19 Ipratropium-Albuterol (Ipratropium-Albuterol) 0.5-3 Mg/3 Ml Ampul.neb, 3 ML INHALATION Q6 PRN for WHEEZING AND SOB, #30 VIAL 01/11/19 Hydrocodone/Acetaminophen ([place] 5-325 Tablet) 1 Each Tablet, 1 EACH PO Q6H PRN for PAIN, TAB 01/11/19 Gabapentin* (Gabapentin*) 100 Mg Capsule, 100 MG PO TID, #90 CAP 01/11/19 Furosemide* (Furosemide*) 40 Mg Tablet, 40 MG PO DAILY, TAB 01/11/19 Folic Acid* (Folic Acid*) 1 Mg Tablet, 1 MG PO DAILY, TAB 01/11/19 Tamsulosin Hcl* (Flomax*) 0.4 Mg Cap.er.24h, 0.4 MG PO HS, CAP 01/11/19 Ferrous Sulfate* (Ferrous Sulfate*) 325 Mg Tabec, 325 MG PO DAILY, TAB 01/11/19 Ertapenem Sodium (Invanz) 1 Gm Vial, 1 GM IM DAILY, VIAL 01/11/19 Epoetin Ghulam (Epogen) 10,000 Units/Ml Soln, 54226 UNITS SC Q TUE,SHARONA,SAT, VIAL 01/11/19 Lactulose* (Lactulose*) 10 Gm/15 Ml Solution, 30 ML PO Q6, ML 01/11/19 Docusate Sodium* (Colace*) 100 Mg Capsule, 200 MG PO QHS, #30 CAP 01/11/19 Dorzolamide-Timolol* (Cosopt*) 2%-0.5% - 10 Ml Soln, 1 DROP BOTH EYES BID, BOTTLE 01/11/19 Budesonide* (Budesonide*) 0.5 Mg/2 Ml Ampul.neb, 0.5 MG INHALATION BID, AMP 01/11/19 Lorazepam* (Lorazepam*) 1 Mg Tablet, 1 MG PO BID PRN for ANXIETY, #30 TAB 01/11/19 Ascorbic Acid (Vitamin C) 500 Mg Tab, 500 MG PO DAILY, TAB 01/11/19 Arformoterol Tartrate (Brovana) 15 Mcg/2 Ml Vial.neb, 15 MCG INHALATION BID, VIAL 01/11/19 Spironolactone* (Aldactone*) 50 Mg Tablet, 50 MG PO DAILY, #30 TAB HOLD FOR SBP<110 01/11/19 Salmeterol Xinaf/Fluticasone* (Advair*) 250-50 Diskus Inhaler, 1 INH INHALATION BID, #1 INHALER 01/11/19 Acetaminophen* (Acetaminophen*) 500 MG Extra Strength Tablet, 500 MG PO Q4H PRN for MILD PAIN LEVEL 1-3, TAB 01/11/19 Medications Current Medications IV Flush (NS 3 ml) 3 ml PER PROTOCOL IV ; Start 01/11/19 at 13:00 Ondansetron HCl (Zofran Inj) 4 mg Q6H PRN IV NAUSEA/VOMITING; Start 01/11/19 at 13:00 Acetaminophen (Tylenol Tab) 650 mg Q6H PRN PO .PAIN 1-3 OR TEMP; Start 01/11/19 at 13:00 Hydromorphone HCl (Dilaudid) 0.5 mg Q4H PRN IV .PAIN 7-10 Last administered on 01/12/19at 13:35; Admin Dose 0.5 MG; Start 01/11/19 at 13:00 Famotidine (Pepcid Iv) 20 mg Q12 IV Last administered on 01/12/19at 08:45; Admin Dose 20 MG; Start 01/11/19 at 21:00 Enoxaparin Sodium (Lovenox) 30 mg DAILY SC Last administered on 01/12/19at 09:18; Admin Dose 30 MG; Start 01/12/19 at 09:00 Albuterol (Proventil 0.083% (Neb)) 2.5 mg Q6 PRN HHN shortness of breath; Start 01/11/19 at 13:00 Spironolactone (Aldactone) 50 mg DAILY PO Last administered on 01/12/19 08:45; Admin Dose 50 MG; Start 01/12/19 at 09:00 Furosemide (Lasix) 20 mg DAILY IV Last administered on 01/12/19 08:46; Admin Dose 20 MG; Start 01/12/19 at 09:00 Metoprolol Succinate (Toprol Xl) 50 mg DAILY PO Last administered on 01/12/19 08:46; Admin Dose 50 MG; Start 01/12/19 at 09:00 Lorazepam (Ativan) 0.5 mg Q6H PRN IV ANXIETY Last administered on 01/12/19at 14:33; Admin Dose 0.5 MG; Start 01/11/19 at 23:00 Allergies: Coded Allergies: Penicillins (Unverified Allergy, Unknown, 02/03/19) Patient strongly denies being allegic to PCN. He states, "I took that damn allergy band off. I'm not allergic to penicillen!" Past Surgical History Past Surgical Hx: other Social History Smoking Status: Current every day smoker Exam/Review of Systems Exam Vitals Vital Signs Date Temp Pulse Resp B/P (MAP) Pulse Ox O2 O2 Flow FiO2 Time Delivery Rate 01/12/19 80 17:04 01/12/19 97.8 20 153/72 99 Room Air 15:31 (99) 01/12/19 2.0 07:44 Intake and Output 01/11/19 01/11/19 01/12/19 1515:00 23:00 07:00 IntakeIntake Total 400 ml 900 ml OutputOutput Total 1500 ml 1700 ml BalanceBalance -1100 ml -800 ml Exam Patient is in no acute distress. Multiple hyperkeratotic skin lesions noted on bilateral feet; no active open wound noted; there is no erythema and no malodor. There is edema of bilateral lower extremity. Labs reviewed; imaging reviewed. Pedal pulses area weakly palpable. Results Result Diagram: 01/12/19 1420 01/12/19 1420 Results 24hrs Laboratory Tests Test 01/11/19 20:45 01/12/19 14:20 Creatine Kinase 105 Creatine Kinase Index 1.0 Creatinine Kinase MB (Mass) 1.01 Troponin I < 0.012 White Blood Count 10.9 H Red Blood Count 4.14 L Hemoglobin 8.9 L Hematocrit 32.6 L Mean Corpuscular Volume 78.7 L Mean Corpuscular Hemoglobin 21.5 L Mean Corpuscular Hemoglobin Concent 27.3 L Red Cell Distribution Width 23.0 H Platelet Count 97 L Mean Platelet Volume Immature Granulocytes % 1.400 H Neutrophils % Segmented Neutrophils % (Manual) 62 Lymphocytes % Lymphocytes % (Manual) 7 L Reactive Lymphocytes % (Manual) 2 H Monocytes % Monocytes % (Manual) 24 H Eosinophils % Eosinophils % (Manual) 6 Basophils % Nucleated Red Blood Cells % 0.0 Immature Granulocytes # 0.150 H Neutrophils # Lymphocytes (Manual) 0.7 L Lymphocytes # Reactive Lymphocytes # 0.2 H Monocytes # Monocytes # (Manual) 2.6 H Eosinophils # Basophils # Nucleated Red Blood Cells # Polychromasia 1+ Poikilocytosis 2+ Anisocytosis 1+ Microcytosis 1+ Spherocytes 1+ Target Cells 1+ Echinocytes 1+ Acanthocytes 1+ Schistocytes 1+ Sodium Level 139 Potassium Level 5.1 Chloride Level 106 Carbon Dioxide Level 22 Anion Gap 11 Blood Urea Nitrogen 42 #H Creatinine 1.36 H Est Glomerular Filtrat Rate mL/min 53 L Glucose Level 129 Hemoglobin A1c 4.9 Calcium Level 8.9 Total Bilirubin 0.5 Direct Bilirubin 0.00 Indirect Bilirubin 0.5 Aspartate Amino Transf (AST/SGOT) 47 H Alanine Aminotransferase (ALT/SGPT) 26 Alkaline Phosphatase 88 Total Protein 7.1 Albumin 3.9 Globulin 3.20 Albumin/Globulin Ratio 1.21 Medications Medication Current Medications IV Flush (NS 3 ml) 3 ml PER PROTOCOL IV ; Start 01/11/19 at 13:00 Ondansetron HCl (Zofran Inj) 4 mg Q6H PRN IV NAUSEA/VOMITING; Start 01/11/19 at 13:00 Acetaminophen (Tylenol Tab) 650 mg Q6H PRN PO .PAIN 1-3 OR TEMP; Start 01/11/19 at 13:00 Hydromorphone HCl (Dilaudid) 0.5 mg Q4H PRN IV .PAIN 7-10 Last administered on 01/12/19 13:35; Admin Dose 0.5 MG; Start 01/11/19 at 13:00 Famotidine (Pepcid Iv) 20 mg Q12 IV Last administered on 01/12/19 08:45; Admin Dose 20 MG; Start 01/11/19 at 21:00 Enoxaparin Sodium (Lovenox) 30 mg DAILY SC Last administered on 01/12/19 09:18; Admin Dose 30 MG; Start 01/12/19 at 09:00 Albuterol (Proventil 0.083% (Neb)) 2.5 mg Q6 PRN HHN shortness of breath; S tart 01/11/19 at 13:00 Spironolactone (Aldactone) 50 mg DAILY PO Last administered on 01/12/19 08:45; Admin Dose 50 MG; Start 01/12/19 at 09:00 Furosemide (Lasix) 20 mg DAILY IV Last administered on 01/12/19 08:46; Admin Dose 20 MG; Start 01/12/19 at 09:00 Metoprolol Succinate (Toprol Xl) 50 mg DAILY PO Last administered on 01/12/19 08:46; Admin Dose 50 MG; Start 01/12/19 at 09:00 Lorazepam (Ativan) 0.5 mg Q6H PRN IV ANXIETY Last administered on 01/12/19 14:33; Admin Dose 0.5 MG; Start 01/11/19 at 23:00 BRANDT RIGGS DPM Jan 12, 2019 17:16
[2019-01-12] MEDS: HYDROmorphONE 1 MG/ML SYG IV PRN (22:55)
[2019-01-13] VITALS (10 sets, daily range): BP systolic 130–159; BP diastolic 58–72; PULSE 72–90; RESP 18–22
[2019-01-13] MEDS: HYDROmorphONE 1 MG/ML SYG IV PRN ×4 (04:31→20:10)
[2019-01-13] MEDS: LORAZEPAM 2 MG INJ IV PRN ×3 (04:44→16:53)
[2019-01-13] MEDS ORDERED: LEVOTHYROXINE 25 MCG TAB PO SCH (06:00)
[2019-01-13] MEDS ORDERED: LORAZEPAM 1 MG TAB PO PRN (06:30)
[2019-01-13] MEDS: LEVOTHYROXINE 75 MCG TAB PO SCH (06:58)
[2019-01-13] MEDS: FAMOTIDINE 20 MG INJ IV SCH (08:55)
[2019-01-13] MEDS: NA BICARBONATE 650 MG TAB PO SCH ×3 (08:56→20:11)
[2019-01-13] MEDS: THIAMINE 100 MG TAB PO SCH (08:56)
[2019-01-13] MEDS: GABAPENTIN 100 MG CAP PO SCH ×3 (08:56→20:11)
[2019-01-13] MEDS: ASCORBIC ACID 500 MG TAB PO SCH (08:56)
[2019-01-13] MEDS: ALLOPURINOL 100 MG TAB PO SCH (08:57)
[2019-01-13] MEDS: SPIRONOLACTONE 50 MG TAB PO SCH (08:57)
[2019-01-13] MEDS: FOLIC ACID 1 MG TAB PO SCH (08:57)
[2019-01-13] MEDS: FERROUS SULFATE (EC) 325 MG TAB PO SCH (08:57)
[2019-01-13] MEDS: FUROSEMIDE 20 MG INJ IV SCH (08:59)
[2019-01-13] MEDS: LACTULOSE 30ML CUP PO SCH ×3 (09:00→20:24)
[2019-01-13] MEDS ORDERED: DORZOLAMIDE/TIMOLOL 10 ML OPH BOTH EYES SCH (09:00)
[2019-01-13] MEDS ORDERED: NON-FORMULARY/PATIENT OWN MED (Salmeterol Xinaf/Fluticasone* (Advair*) 1 INH) INHALATION SCH (09:00)
[2019-01-13] MEDS: METOPROLOL (XL) 50 MG TAB PO SCH (09:00)
[2019-01-13] MEDS: RIFAXIMIN 550 MG TAB PO SCH ×2 (09:00→20:11)
[2019-01-13] MEDS: ENOXAPARIN 30 MG/0.3 ML SYG SC SCH (09:00)
--- NOTE | 2019-01-13 09:05 | CONS ---
Assessment/Plan Assessment/Plan Hospital Course (Demo Recall) 63 yo male Interval hx: Pain improved with increase of dilaudid to 1mg. Denies nausea. Denies melena or hematochezia. EAting well. continues to refuse colonoscopy 1. Microcytic hypochromic anemia, most probably related to iron deficiency. -anemia work up from previous visit last week noted. NEG FOB -EGD done April 2018 showed duodenal ulcer and gastritis -hgb stable 2. 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 -US on 01/07 did not ascites 3. Nicotine dependence 4. Congestive heart failure. -EF of 60% 5. Chronic obstructive pulmonary disease. 6. Renal failure. PLAN: Pain management Pt needs EGD and colonoscopy, particularly colonoscopy. Spoke with patient again who continues to refuse procedures. Continue pepcid, lasix and aldactone Pt examined and plan of care discussed with Dr. Casiano Consultation Date/Type/Reason Admit Date/Time Jan 11, 2019 at 09:53 Initial Consult Date 01/11/19 Requesting Provider: WERNER KING Date/Time of Note DATE: 01/13/19 TIME: 08:55 Exam/Review of Systems Exam Vitals Vital Signs Date Temp Pulse Resp B/P (MAP) Pulse Ox O2 O2 Flow FiO2 Time Delivery Rate 01/13/19 76 08:00 01/13/19 Nasal 07:40 Cannula 01/13/19 97.3 22 149/70 96 07:16 (96) 01/12/19 2.0 20:00 Intake and Output 01/12/19 01/12/19 01/13/19 1515:00 23:00 07:00 IntakeIntake Total 1200 ml 800 ml OutputOutput Total 1500 ml 1000 ml BalanceBalance -300 ml -200 ml Constitutional: alert, oriented Psych: no complaints Head: normocephalic Eyes: PERRL ENMT: nl external ears & nose Respiratory: clear to auscultation Cardiovascular: regular rate and rhythm Gastrointestinal: soft, other (large panus) Extremities: other (BLE edema) Neurological: nl mental status Results Result Diagram: 01/12/19 1420 01/12/19 1420 Results 24hrs Laboratory Tests Test 01/12/19 14:20 White Blood Count 10.9 H Red Blood Count 4.14 L Hemoglobin 8.9 L Hematocrit 32.6 L Mean Corpuscular Volume 78.7 L Mean Corpuscular Hemoglobin 21.5 L Mean Corpuscular Hemoglobin Concent 27.3 L Red Cell Distribution Width 23.0 H Platelet Count 97 L Mean Platelet Volume Immature Granulocytes % 1.400 H Neutrophils % Segmented Neutrophils % (Manual) 62 Lymphocytes % Lymphocytes % (Manual) 7 L Reactive Lymphocytes % (Manual) 2 H Monocytes % Monocytes % (Manual) 24 H Eosinophils % Eosinophils % (Manual) 6 Basophils % Nucleated Red Blood Cells % 0.0 Immature Granulocytes # 0.150 H Neutrophils # Lymphocytes (Manual) 0.7 L Lymphocytes # Reactive Lymphocytes # 0.2 H Monocytes # Monocytes # (Manual) 2.6 H Eosinophils # Basophils # Nucleated Red Blood Cells # Polychromasia 1+ Poikilocytosis 2+ Anisocytosis 1+ Microcytosis 1+ Spherocytes 1+ Target Cells 1+ Echinocytes 1+ Acanthocytes 1+ Schistocytes 1+ Sodium Level 139 Potassium Level 5.1 Chloride Level 106 Carbon Dioxide Level 22 Anion Gap 11 Blood Urea Nitrogen 42 #H Creatinine 1.36 H Est Glomerular Filtrat Rate mL/min 53 L Glucose Level 129 Hemoglobin A1c 4.9 Calcium Level 8.9 Total Bilirubin 0.5 Direct Bilirubin 0.00 Indirect Bilirubin 0.5 Aspartate Amino Transf (AST/SGOT) 47 H Alanine Aminotransferase (ALT/SGPT) 26 Alkaline Phosphatase 88 Total Protein 7.1 Albumin 3.9 Globulin 3.20 Albumin/Globulin Ratio 1.21 Medications Medication Current Medications IV Flush (NS 3 ml) 3 ml PER PROTOCOL IV ; Start 01/11/19 at 13:00 Ondansetron HCl (Zofran Inj) 4 mg Q6H PRN IV NAUSEA/VOMITING; Start 01/11/19 at 13:00 Acetaminophen (Tylenol Tab) 650 mg Q6H PRN PO .PAIN 1-3 OR TEMP; Start 01/11/19 at 13:00 Famotidine (Pepcid Iv) 20 mg Q12 IV Last administered on 01/12/19at 20:29; Admin Dose 20 MG; Start 01/11/19 at 21:00 Enoxaparin Sodium (Lovenox) 30 mg DAILY SC Last administered on 01/12/19at 09:18; Admin Dose 30 MG; Start 01/12/19 at 09:00 Albuterol (Proventil 0.083% (Neb)) 2.5 mg Q6 PRN HHN shortness of breath; Start 01/11/19 at 13:00 Spironolactone (Aldactone) 50 mg DAILY PO Last administered on 01/12/19 08:45; Admin Dose 50 MG; Start 01/12/19 at 09:00 Furosemide (Lasix) 20 mg DAILY IV Last administered on 01/12/19 08:46; Admin Dose 20 MG; Start 01/12/19 at 09:00 Metoprolol Succinate (Toprol Xl) 50 mg DAILY PO Last administered on 01/12/19 08:46; Admin Dose 50 MG; Start 01/12/19 at 09:00 Lorazepam (Ativan) 0.5 mg Q6H PRN IV ANXIETY Last administered on 01/13/19 04:44; Admin Dose 0.5 MG; Start 01/11/19 at 23:00 Clonidine (Catapres) 0.1 mg Q6H PRN PO systolic BP > 160 Last administered on 01/12/19at 21:31; Admin Dose 0.1 MG; Start 01/12/19 at 21:00 Hydromorphone HCl (Dilaudid) 1 mg Q4H PRN IV .PAIN 7-10 Last administered on 01/13/19 04:31; Admin Dose 1 MG; Start 01/12/19 at 22:00 Levothyroxine Sodium (Synthroid) 225 mcg DAILY@06 PO Last administered on 01/13/19 06:58; Admin Dose 225 MCG; Start 01/13/19 at 06:00 Allopurinol (Zyloprim) 100 mg DAILY PO ; Start 01/13/19 at 09:00 Ascorbic Acid (Vitamin C) 500 mg DAILY PO ; Start 01/13/19 at 09:00 Docusate Sodium (Colace) 200 mg QHS PO ; Start 01/13/19 at 21:00 Dorzolamide/ Timolol (Cosopt) 1 drop BID BOTH EYES ; Start 01/13/19 at 09:00 Epoetin Ghulam-epbx (RETACRIT(non-esrd)) 10,000 unit Q48H SC ; Start 01/13/19 at 18:00 Ferrous Sulfate (Ferrous Sulfate (Ec)) 325 mg DAILY PO ; Start 01/13/19 at 09:00 Folic Acid (Folic Acid) 1 mg DAILY PO ; Start 01/13/19 at 09:00 Gabapentin (Neurontin) 100 mg TID PO ; Start 01/13/19 at 09:00 Acetaminophen/ Hydrocodone Bitart ([place] (5/325)) 1 tab Q6H PRN PO PAIN; Start 01/13/19 at 06:30 Lactulose (Enulose) 20 gm BID PO ; Start 01/13/19 at 09:00 Lorazepam (Ativan) 1 mg BID PRN PO ANXIETY; Start 01/13/19 at 06:30 Rifaximin (Xifaxan) 550 mg BID PO ; Start 01/13/19 at 09:00 Sodium Bicarbonate (Sodium Bicarbonate Tab) 325 mg TID PO ; Start 01/13/19 at 09:00 Tamsulosin HCl (Flomax) 0.4 mg HS PO ; Start 01/13/19 at 21:00 Thiamine HCl (Vitamin B1) 100 mg DAILY PO ; Start 01/13/19 at 09:00 Arformoterol Tartrate (Brovana (Neb)) 2 ml BID RESP THERAPY INH ; Start 01/13/19 at 09:00 Budesonide (Pulmicort (Neb)) 0.5 mg Q12H RESP THERAPY INH ; Start 01/13/19 at 09:00 DEYVI HAN Jan 13, 2019 09:05
--- NOTE | 2019-01-13 09:39 | CONS ---
Consult Date/Type/Reason Admit Date/Time Jan 11, 2019 at 09:53 Initial Consult Date 01/12/19 Requesting Provider: WERNER KING Date/Time of Note DATE: 01/13/19 TIME: 09:37 Subjective NO acute events - pt stable - good urine output - will monitor clinically now. ROS: No fever, no chills, no nausea, no vomiting, no diarrhea/constipation No recent weight changes No chest pain, no PND, no orthopnea - improved SOB No dizziness, blurred vision No thirst, no heat or cold intolerance Objective Vitals Vital Signs Date Temp Pulse Resp B/P (MAP) Pulse Ox O2 O2 Flow FiO2 Time Delivery Rate 01/13/19 76 08:00 01/13/19 Nasal 07:40 Cannula 01/13/19 97.3 22 149/70 96 07:16 (96) 01/12/19 2.0 20:00 Intake and Output 01/12/19 01/12/19 01/13/19 1515:00 23:00 07:00 IntakeIntake Total 1200 ml 800 ml OutputOutput Total 1500 ml 1000 ml BalanceBalance -300 ml -200 ml Exam General: WN/WD/NAD, AOx 2-3 HEENT: Unicetric/atraumatic/EOMI (follow commands) NECK: JVD elevated, no thyromegaly Lymph: no lymphadenopathy HEART: regular with no S3, II/ systolic murmur at apex, PMI L LUNGS: Coarse sounds ABD: soft, NT, ND, +BS : Intact Neuro: non focal SKIN: chronic changes EXT: trace edema Results/Medications Result Diagram: 01/12/19 1420 01/12/19 1420 Results 24 hrs Laboratory Tests Test 01/12/19 14:20 White Blood Count 10.9 H Red Blood Count 4.14 L Hemoglobin 8.9 L Hematocrit 32.6 L Mean Corpuscular Volume 78.7 L Mean Corpuscular Hemoglobin 21.5 L Mean Corpuscular Hemoglobin Concent 27.3 L Red Cell Distribution Width 23.0 H Platelet Count 97 L Mean Platelet Volume Immature Granulocytes % 1.400 H Neutrophils % Segmented Neutrophils % (Manual) 62 Lymphocytes % Lymphocytes % (Manual) 7 L Reactive Lymphocytes % (Manual) 2 H Monocytes % Monocytes % (Manual) 24 H Eosinophils % Eosinophils % (Manual) 6 Basophils % Nucleated Red Blood Cells % 0.0 Immature Granulocytes # 0.150 H Neutrophils # Lymphocytes (Manual) 0.7 L Lymphocytes # Reactive Lymphocytes # 0.2 H Monocytes # Monocytes # (Manual) 2.6 H Eosinophils # Basophils # Nucleated Red Blood Cells # Polychromasia 1+ Poikilocytosis 2+ Anisocytosis 1+ Microcytosis 1+ Spherocytes 1+ Target Cells 1+ Echinocytes 1+ Acanthocytes 1+ Schistocytes 1+ Sodium Level 139 Potassium Level 5.1 Chloride Level 106 Carbon Dioxide Level 22 Anion Gap 11 Blood Urea Nitrogen 42 #H Creatinine 1.36 H Est Glomerular Filtrat Rate mL/min 53 L Glucose Level 129 Hemoglobin A1c 4.9 Calcium Level 8.9 Total Bilirubin 0.5 Direct Bilirubin 0.00 Indirect Bilirubin 0.5 Aspartate Amino Transf (AST/SGOT) 47 H Alanine Aminotransferase (ALT/SGPT) 26 Alkaline Phosphatase 88 Total Protein 7.1 Albumin 3.9 Globulin 3.20 Albumin/Globulin Ratio 1.21 Home Meds Reported Medications Thiamine* (Vitamin B-1*) 100 Mg Tablet, 100 MG PO DAILY, TAB 01/11/19 Sodium Bicarbonate* (Sodium Bicarbonate*) 325 Mg Tablet, 325 MG PO TID, TAB 01/11/19 Simethicone* (Mylicon*) 80 Mg Tab, 80 MG PO Q6H, TAB 01/11/19 Albuterol Sulfate (Proair Respiclick) 90 Mcg Aer.pow.ba, 2 PUFFS INHALATION Q4H PRN for SHORTNESS OF BREATH, #1 BOTTLE 01/11/19 Pantoprazole* (Pantoprazole*) 40 Mg Tablet.dr, 40 MG PO AC BREAKFAST, TAB 01/11/19 Oxycodone Hcl* (Oxycontin*) 15 Mg Tab.sr.12h, 15 MG PO Q6H PRN for PAIN, TAB 01/11/19 Oxycodone Hcl* (Oxycontin*) 10 Mg Tab.sr.12h, 10 MG PO Q8H PRN for PAIN, TAB 01/11/19 Allopurinol* (Allopurinol*) 100 Mg Tablet, 100 MG PO DAILY, TAB 01/11/19 Rifaximin* (Xifaxan*) 550 Mg Tablet, 550 MG PO BID, TAB 01/11/19 Ondansetron Hcl* (Zofran*) 4 Mg Tab, 4 MG PO Q4H PRN for NAUSEA AND OR VOMITING, TAB 01/11/19 Metoprolol Tartrate* (Lopressor*) 100 Mg Tablet, 100 MG PO DAILY, #60 TAB HOLD FOR SBP<110 OR HR<60 01/11/19 Levothyroxine Sodium* (Levothyroxine Sodium*) 200 Mcg Tablet, 200 MCG PO BEFORE BREAKFAST, #30 TAB 01/11/19 Levothyroxine Sodium* (Levothyroxine Sodium*) 25 Mcg Tablet, 25 MCG PO BEFORE BREAKFAST, #30 TAB 01/11/19 Ipratropium-Albuterol (Ipratropium-Albuterol) 0.5-3 Mg/3 Ml Ampul.neb, 3 ML INHALATION Q6 PRN for WHEEZING AND SOB, #30 VIAL 01/11/19 Hydrocodone/Acetaminophen ([place] 5-325 Tablet) 1 Each Tablet, 1 EACH PO Q6H PRN for PAIN, TAB 01/11/19 Gabapentin* (Gabapentin*) 100 Mg Capsule, 100 MG PO TID, #90 CAP 01/11/19 Furosemide* (Furosemide*) 40 Mg Tablet, 40 MG PO DAILY, TAB 01/11/19 Folic Acid* (Folic Acid*) 1 Mg Tablet, 1 MG PO DAILY, TAB 01/11/19 Tamsulosin Hcl* (Flomax*) 0.4 Mg Cap.er.24h, 0.4 MG PO HS, CAP 01/11/19 Ferrous Sulfate* (Ferrous Sulfate*) 325 Mg Tabec, 325 MG PO DAILY, TAB 01/11/19 Ertapenem Sodium (Invanz) 1 Gm Vial, 1 GM IM DAILY, VIAL 01/11/19 Epoetin Ghulam (Epogen) 10,000 Units/Ml Soln, 36873 UNITS SC Q TUE,SHARONA,SAT, VIAL 01/11/19 Lactulose* (Lactulose*) 10 Gm/15 Ml Solution, 30 ML PO Q6, ML 01/11/19 Docusate Sodium* (Colace*) 100 Mg Capsule, 200 MG PO QHS, #30 CAP 01/11/19 Dorzolamide-Timolol* (Cosopt*) 2%-0.5% - 10 Ml Soln, 1 DROP BOTH EYES BID, BOTTLE 01/11/19 Budesonide* (Budesonide*) 0.5 Mg/2 Ml Ampul.neb, 0.5 MG INHALATION BID, AMP 01/11/19 Lorazepam* (Lorazepam*) 1 Mg Tablet, 1 MG PO BID PRN for ANXIETY, #30 TAB 01/11/19 Ascorbic Acid (Vitamin C) 500 Mg Tab, 500 MG PO DAILY, TAB 01/11/19 Arformoterol Tartrate (Brovana) 15 Mcg/2 Ml Vial.neb, 15 MCG INHALATION BID, VIAL 01/11/19 Spironolactone* (Aldactone*) 50 Mg Tablet, 50 MG PO DAILY, #30 TAB HOLD FOR SBP<110 01/11/19 Salmeterol Xinaf/Fluticasone* (Advair*) 250-50 Diskus Inhaler, 1 INH INHALATION BID, #1 INHALER 01/11/19 Acetaminophen* (Acetaminophen*) 500 MG Extra Strength Tablet, 500 MG PO Q4H PRN for MILD PAIN LEVEL 1-3, TAB 01/11/19 Discontinued Reported Medications Lorazepam* (Lorazepam*) 1 Mg Tablet, 1 MG PO Q6 PRN for ANXIETY, #60 TAB 01/11/19 Allopurinol* (Zyloprim*) 100 Mg Tablet, 100 MG PO DAILY, TAB 09/18/18 Rifaximin* (Xifaxan*) 550 Mg Tablet, 550 MG PO BID, TAB 09/18/18 Thiamine* (Vitamin B-1*) 100 Mg Tablet, 100 MG PO DAILY, TAB 09/18/18 Metoprolol Succinate* (Toprol XL*) 100 Mg Tab.sr.24h, 100 MG PO DAILY, #30 TAB HOLD FOR SBP<110 OR HR<60 09/18/18 Sodium Bicarbonate* (Sodium Bicarbonate*) 650 Mg Tablet, 650 MG PO TID, TAB 09/18/18 Albuterol Sulfate* (Ventolin HFA*) 18 Gm Hfa.aer.ad, 2 PUFF INHALATION Q4H, #1 INHALER 09/18/18 Pantoprazole* (Protonix*) 40 Mg Tablet.dr, 40 MG PO DAILY, TAB 09/18/18 Oxycodone Hcl* (Oxycontin*) 10 Mg Tab.sr.12h, 10 MG PO Q6H, TAB 09/18/18 Gabapentin* (Gabapentin*) 100 Mg Capsule, 100 MG PO TID, #90 CAP 12/13/18 Levothyroxine Sodium* (Levothyroxine Sodium*) 100 Mcg Tablet, 200 MCG PO BEFORE BREAKFAST, #30 TAB 09/18/18 Ipratropium [place]* (Atrovent HFA*) 12.9 Gm Aer.w.adap, 1 VIAL INHALATION Q6H PRN for WHEEZING AND SOB, #1 INHALER 09/18/18 Furosemide* (Furosemide*) 40 Mg Tablet, 40 MG PO DAILY, TAB 09/18/18 Folic Acid* (Folic Acid*) 1 Mg Tablet, 1 MG PO DAILY, TAB 09/18/18 Tamsulosin Hcl* (Flomax*) 0.4 Mg Cap.er.24h, 0.4 MG PO DAILY, CAP 09/18/18 Ferrous Sulfate* (Ferrous Sulfate*) 325 Mg Tabec, 325 MG PO DAILY, TAB 09/18/18 Spironolactone* (Aldactone*) 50 Mg Tablet, 50 MG PO DAILY, #30 TAB HOLD FOR SBP<110 09/18/18 Salmeterol Xinaf/Fluticasone* (Advair*) 250-50 Diskus Inhaler, 1 INH INHALATION BID, #1 INHALER 09/18/18 Discontinued Scripts Docusate Sodium* (Docusate Sodium*) 100 Mg Capsule, 200 MG PO QHS, #60 CAP Prov:JACQUELIN GOVEAETLANA 06/26/18 Medications Current Medications IV Flush (NS 3 ml) 3 ml PER PROTOCOL IV ; Start 01/11/19 at 13:00 Ondansetron HCl (Zofran Inj) 4 mg Q6H PRN IV NAUSEA/VOMITING; Start 01/11/19 at 13:00 Acetaminophen (Tylenol Tab) 650 mg Q6H PRN PO .PAIN 1-3 OR TEMP; Start 01/11/19 at 13:00 Famotidine (Pepcid Iv) 20 mg Q12 IV Last administered on 01/13/19at 08:55; Admin Dose 20 MG; Start 01/11/19 at 21:00 Enoxaparin Sodium (Lovenox) 30 mg DAILY SC Last administered on 01/12/19at 09:18; Admin Dose 30 MG; Start 01/12/19 at 09:00 Albuterol (Proventil 0.083% (Neb)) 2.5 mg Q6 PRN HHN shortness of breath; Start 01/11/19 at 13:00 Spironolactone (Aldactone) 50 mg DAILY PO Last administered on 01/13/19 08:57; Admin Dose 50 MG; Start 01/12/19 at 09:00 Furosemide (Lasix) 20 mg DAILY IV Last administered on 01/13/19 08:59; Admin Dose 20 MG; Start 01/12/19 at 09:00 Metoprolol Succinate (Toprol Xl) 50 mg DAILY PO Last administered on 01/13/19 09:00; Admin Dose 50 MG; Start 01/12/19 at 09:00 Lorazepam (Ativan) 0.5 mg Q6H PRN IV ANXIETY Last administered on 01/13/19 04:44; Admin Dose 0.5 MG; Start 01/11/19 at 23:00 Clonidine (Catapres) 0.1 mg Q6H PRN PO systolic BP > 160 Last administered on 01/12/19 21:31; Admin Dose 0.1 MG; Start 01/12/19 at 21:00 Hydromorphone HCl (Dilaudid) 1 mg Q4H PRN IV .PAIN 7-10 Last administered on 01/13/19 09:00; Admin Dose 1 MG; Start 01/12/19 at 22:00 Levothyroxine Sodium (Synthroid) 225 mcg DAILY@06 PO Last administered on 06:58; Admin Dose 225 MCG; Start 01/13/19 at 06:00 Allopurinol (Zyloprim) 100 mg DAILY PO Last administered on 01/13/19 08:57; Admin Dose 100 MG; Start 01/13/19 at 09:00 Ascorbic Acid (Vitamin C) 500 mg DAILY PO Last administered on 01/13/19 08:56; Admin Dose 500 MG; Start 01/13/19 at 09:00 Docusate Sodium (Colace) 200 mg QHS PO ; Start 01/13/19 at 21:00 Dorzolamide/ Timolol (Cosopt) 1 drop BID BOTH EYES ; Start 01/13/19 at 09:00 Epoetin Ghulam-epbx (RETACRIT(non-esrd)) 10,000 unit Q48H SC ; Start 01/13/19 at 18:00 Ferrous Sulfate (Ferrous Sulfate (Ec)) 325 mg DAILY PO Last administered on 4/9 /19at 08:57; Admin Dose 325 MG; Start 01/13/19 at 09:00 Folic Acid (Folic Acid) 1 mg DAILY PO Last administered on 01/13/19 08:57; Admin Dose 1 MG; Start 01/13/19 at 09:00 Gabapentin (Neurontin) 100 mg TID PO Last administered on 01/13/19at 08:56; Admin Dose 100 MG; Start 01/13/19 at 09:00 Acetaminophen/ Hydrocodone Bitart ([place] (5/325)) 1 tab Q6H PRN PO PAIN; Start 01/13/19 at 06:30 Lactulose (Enulose) 20 gm BID PO ; Start 01/13/19 at 09:00 Lorazepam (Ativan) 1 mg BID PRN PO ANXIETY; Start 01/13/19 at 06:30 Rifaximin (Xifaxan) 550 mg BID PO ; Start 01/13/19 at 09:00 Sodium Bicarbonate (Sodium Bicarbonate Tab) 325 mg TID PO Last administered on 01/13/19at 08:56; Admin Dose 325 MG; Start 01/13/19 at 09:00 Tamsulosin HCl (Flomax) 0.4 mg HS PO ; Start 01/13/19 at 21:00 Thiamine HCl (Vitamin B1) 100 mg DAILY PO Last administered on 01/13/19 08:56; Admin Dose 100 MG; Start 01/13/19 at 09:00 Arformoterol Tartrate (Brovana (Neb)) 2 ml BID RESP THERAPY INH ; Start 01/13/19 at 09:00 Budesonide (Pulmicort (Neb)) 0.5 mg Q12H RESP THERAPY INH ; Start 01/13/19 at 09:00 Assessment/Plan Hospital Course (Demo Recall) 1. Congestive heart failure exacerbation, diastolic, acute on chronic - con't diuresis, better now 2. Hypertension - well controlled, con't med rx 3. Shortness of breath secondary to congestive heart failure exacerbation, diastolic, acute on chronic - improved with therapy. 4. Chronic renal failure - good urine output now. 5. Cirrhosis - on meds. 6. Ascites, recurrent. 7. Hypothyroidism. 8. History of ETOH abuse- avoid hepatotoxic meds. 9. Anemia - H/H stable - no bleeding now. HALEY LIRIANO MD Jan 13, 2019 09:39
[2019-01-13] MEDS: ARFORMOTEROL TARTRATE 15MCG/2 ML AMP INH SCH ×2 (09:41→21:14)
[2019-01-13] MEDS: BUDESONIDE (NEB) 0.5MG/2ML AMP INH SCH ×2 (09:42→21:15)
--- NOTE | 2019-01-13 10:16 | CONS ---
Assessment/Plan Assessment/Plan Assessment/Plan (Daily) 1. acute on chronic renal failure due to Type II hepatorenal syndrome 2. SIRS 3. anemia of CKD 5. Decompensated Liver cirrhosis with Symptomatic ascites 6. H/O HTN 7. h/o Liver cirrhosis with ascites 8. H/o Diastolic CHF 9. Bilateral LE chronic venous stasis Plan: Continue IV abx as per ID , renally dose all abx , monitor electorlytes and replace as needed, BUN/Cr 43/1.61, Na 140- other Electrolyte stable, lasix 20mg IV daily, spironolactone 50mg po daily , Toprol Xl 50mg po daily will follow up Consultation Date/Type/Reason Admit Date/Time Jan 11, 2019 at 09:53 Initial Consult Date 01/11/19 Type of Consult Nephrology Requesting Provider: WERNER KING Date/Time of Note DATE: 01/13/19 TIME: 10:16 Exam/Review of Systems Exam Vitals Vital Signs Date Temp Pulse Resp B/P (MAP) Pulse Ox O2 O2 Flow FiO2 Time Delivery Rate 01/13/19 2.0 28 09:51 01/13/19 80 22 96 Nasal 09:43 Cannula 01/13/19 97.3 149/70 07:16 (96) Intake and Output 01/12/19 01/12/19 01/13/19 1414:59 22:59 06:59 IntakeIntake Total 1200 ml 800 ml OutputOutput Total 1500 ml 1000 ml BalanceBalance -300 ml -200 ml Exam Constitutional: alert, awake, on acute distress Respiratory: clear to auscultation, no crackles no wheezing Cardiovascular: regular rate and rhythm, nl pulses Gastrointestinal: soft, non-tender, ascites, distended Musculoskeletal: joint tenderness, muscle weakness, swelling Extremities: chronic LE venous stasis Neurological: [employer] II-XII intact, nl mental status, nl speech, nl strength Lymph: nl lymph nodes Results Result Diagram: 01/12/19 1420 01/12/19 1420 Results 24hrs Laboratory Tests Test 01/12/19 14:20 White Blood Count 10.9 H Red Blood Count 4.14 L Hemoglobin 8.9 L Hematocrit 32.6 L Mean Corpuscular Volume 78.7 L Mean Corpuscular Hemoglobin 21.5 L Mean Corpuscular Hemoglobin Concent 27.3 L Red Cell Distribution Width 23.0 H Platelet Count 97 L Mean Platelet Volume Immature Granulocytes % 1.400 H Neutrophils % Segmented Neutrophils % (Manual) 62 Lymphocytes % Lymphocytes % (Manual) 7 L Reactive Lymphocytes % (Manual) 2 H Monocytes % Monocytes % (Manual) 24 H Eosinophils % Eosinophils % (Manual) 6 Basophils % Nucleated Red Blood Cells % 0.0 Immature Granulocytes # 0.150 H Neutrophils # Lymphocytes (Manual) 0.7 L Lymphocytes # Reactive Lymphocytes # 0.2 H Monocytes # Monocytes # (Manual) 2.6 H Eosinophils # Basophils # Nucleated Red Blood Cells # Polychromasia 1+ Poikilocytosis 2+ Anisocytosis 1+ Microcytosis 1+ Spherocytes 1+ Target Cells 1+ Echinocytes 1+ Acanthocytes 1+ Schistocytes 1+ Sodium Level 139 Potassium Level 5.1 Chloride Level 106 Carbon Dioxide Level 22 Anion Gap 11 Blood Urea Nitrogen 42 #H Creatinine 1.36 H Est Glomerular Filtrat Rate mL/min 53 L Glucose Level 129 Hemoglobin A1c 4.9 Calcium Level 8.9 Total Bilirubin 0.5 Direct Bilirubin 0.00 Indirect Bilirubin 0.5 Aspartate Amino Transf (AST/SGOT) 47 H Alanine Aminotransferase (ALT/SGPT) 26 Alkaline Phosphatase 88 Total Protein 7.1 Albumin 3.9 Globulin 3.20 Albumin/Globulin Ratio 1.21 Medications Medication Current Medications IV Flush (NS 3 ml) 3 ml PER PROTOCOL IV ; Start 01/11/19 at 13:00 Ondansetron HCl (Zofran Inj) 4 mg Q6H PRN IV NAUSEA/VOMITING; Start 01/11/19 at 13:00 Acetaminophen (Tylenol Tab) 650 mg Q6H PRN PO .PAIN 1-3 OR TEMP; Start 01/11/19 at 13:00 Famotidine (Pepcid Iv) 20 mg Q12 IV Last administered on 01/13/19at 08:55; Admin Dose 20 MG; Start 01/11/19 at 21:00 Enoxaparin Sodium (Lovenox) 30 mg DAILY SC Last administered on 01/12/19at 09:18; Admin Dose 30 MG; Start 01/12/19 at 09:00 Albuterol (Proventil 0.083% (Neb)) 2.5 mg Q6 PRN HHN shortness of breath; Start 01/11/19 at 13:00 Spironolactone (Aldactone) 50 mg DAILY PO Last administered on 01/13/19 08:57; Admin Dose 50 MG; Start 01/12/19 at 09:00 Furosemide (Lasix) 20 mg DAILY IV Last administered on 01/13/19 08:59; Admin Dose 20 MG; Start 01/12/19 at 09:00 Metoprolol Succinate (Toprol Xl) 50 mg DAILY PO Last administered on 01/13/19 09:00; Admin Dose 50 MG; Start 01/12/19 at 09:00 Lorazepam (Ativan) 0.5 mg Q6H PRN IV ANXIETY Last administered on 01/13/19 04:44; Admin Dose 0.5 MG; Start 01/11/19 at 23:00 Clonidine (Catapres) 0.1 mg Q6H PRN PO systolic BP > 160 Last administered on 01/12/19 21:31; Admin Dose 0.1 MG; Start 01/12/19 at 21:00 Hydromorphone HCl (Dilaudid) 1 mg Q4H PRN IV .PAIN 7-10 Last administered on 01/13/19 09:00; Admin Dose 1 MG; Start 01/12/19 at 22:00 Levothyroxine Sodium (Synthroid) 225 mcg DAILY@06 PO Last administered on 01/13/19 06:58; Admin Dose 225 MCG; Start 01/13/19 at 06:00 Allopurinol (Zyloprim) 100 mg DAILY PO Last administered on 01/13/19 08:57; Admin Dose 100 MG; Start 01/13/19 at 09:00 Ascorbic Acid (Vitamin C) 500 mg DAILY PO Last administered on 01/13/19 08:56; Admin Dose 500 MG; Start 01/13/19 at 09:00 Docusate Sodium (Colace) 200 mg QHS PO ; Start 01/13/19 at 21:00 Epoetin Ghulam-epbx (RETACRIT(non-esrd)) 10,000 unit Q48H SC ; Start 01/13/19 at 18:00 Ferrous Sulfate (Ferrous Sulfate (Ec)) 325 mg DAILY PO Last administered on 01/13/19 08:57; Admin Dose 325 MG; Start 01/13/19 at 09:00 Folic Acid (Folic Acid) 1 mg DAILY PO Last administered on 4/9/19at 08:57; Admin Dose 1 MG; Start 01/13/19 at 09:00 Gabapentin (Neurontin) 100 mg TID PO Last administered on 01/13/19 08:56; Admin Dose 100 MG; Start 01/13/19 at 09:00 Acetaminophen/ Hydrocodone Bitart ([place] (5/325)) 1 tab Q6H PRN PO PAIN; Start 01/13/19 at 06:30 Lactulose (Enulose) 20 gm BID PO ; Start 01/13/19 at 09:00 Lorazepam (Ativan) 1 mg BID PRN PO ANXIETY; Start 01/13/19 at 06:30 Rifaximin (Xifaxan) 550 mg BID PO ; Start 01/13/19 at 09:00 Sodium Bicarbonate (Sodium Bicarbonate Tab) 325 mg TID PO Last administered on 01/13/19at 08:56; Admin Dose 325 MG; Start 01/13/19 at 09:00 Tamsulosin HCl (Flomax) 0.4 mg HS PO ; Start 01/13/19 at 21:00 Thiamine HCl (Vitamin B1) 100 mg DAILY PO Last administered on 01/13/19 08:56; Admin Dose 100 MG; Start 01/13/19 at 09:00 Arformoterol Tartrate (Brovana (Neb)) 2 ml BID RESP THERAPY INH Last administered on 01/13/19at 09:41; Admin Dose 2 ML; Start 01/13/19 at 09:00 Budesonide (Pulmicort (Neb)) 0.5 mg Q12H RESP THERAPY INH Last administered on 01/13/19 09:42; Admin Dose 0.5 MG; Start 01/13/19 at 09:00 Dorzolamide/ Timolol (Cosopt Pf Eye Drops) 1 drop BID BOTH EYES ; Start 01/13/19 at 11:30 ELADIO DELGADO MD Jan 13, 2019 10:16
[2019-01-13] MEDS: DORZOLAMIDE/TIMOLOL/PF 0.2 ML DROPERETTE BOTH EYES SCH ×2 (12:27→20:10)
--- NOTE | 2019-01-13 13:25 | CONS ---
Assessment/Plan Assessment/Plan Hospital Course (Demo Recall) All noted. No acute changes, no fevers Antimicrobials: none Physical examination: This is a wasted well-developed chronically ill-appearing elderly man who is in no distress. Head atraumatic normocephalic sclera nonicteric. Neck is supple chest rise symmetrical breath sounds diminished bas es. Heart: S1-S2. Abdomen soft bowel sounds present. Extremities without cyanosis. Assessment: 1. S/p systemic inflammatory response syndrome 2. S/p COPD exacerbation 3. Alcohol abuse 4. Bilateral lower extremities chronic venous stasis 5. Cirrhosis with recurrent ascites 6. Chronic kidney disease 7. CHF 8. Noncompliance Plan: Clinically unchanged, continue supportive care Consultation Date/Type/Reason Admit Date/Time Jan 11, 2019 at 09:53 Initial Consult Date Type of Consult id Requesting Provider: WERNER KING Date/Time of Note DATE: 01/13/19 TIME: 13:25 Exam/Review of Systems Exam Vitals Vital Signs Date Temp Pulse Resp B/P (MAP) Pulse Ox O2 O2 Flow FiO2 Time Delivery Rate 01/13/19 98.2 72 22 149/67 96 Nasal 2.0 11:26 (94) Cannula 01/13/19 28 09:51 Intake and Output 01/12/19 01/12/19 01/13/19 1414:59 22:59 06:59 IntakeIntake Total 1200 ml 800 ml OutputOutput Total 1500 ml 1000 ml BalanceBalance -300 ml -200 ml Results Result Diagram: 01/12/19 1420 01/12/19 1420 Results 24hrs Laboratory Tests Test 01/12/19 14:20 White Blood Count 10.9 H Red Blood Count 4.14 L Hemoglobin 8.9 L Hematocrit 32.6 L Mean Corpuscular Volume 78.7 L Mean Corpuscular Hemoglobin 21.5 L Mean Corpuscular Hemoglobin Concent 27.3 L Red Cell Distribution Width 23.0 H Platelet Count 97 L Mean Platelet Volume Immature Granulocytes % 1.400 H Neutrophils % Segmented Neutrophils % (Manual) 62 Lymphocytes % Lymphocytes % (Manual) 7 L Reactive Lymphocytes % (Manual) 2 H Monocytes % Monocytes % (Manual) 24 H Eosinophils % Eosinophils % (Manual) 6 Basophils % Nucleated Red Blood Cells % 0.0 Immature Granulocytes # 0.150 H Neutrophils # Lymphocytes (Manual) 0.7 L Lymphocytes # Reactive Lymphocytes # 0.2 H Monocytes # Monocytes # (Manual) 2.6 H Eosinophils # Basophils # Nucleated Red Blood Cells # Polychromasia 1+ Poikilocytosis 2+ Anisocytosis 1+ Microcytosis 1+ Spherocytes 1+ Target Cells 1+ Echinocytes 1+ Acanthocytes 1+ Schistocytes 1+ Sodium Level 139 Potassium Level 5.1 Chloride Level 106 Carbon Dioxide Level 22 Anion Gap 11 Blood Urea Nitrogen 42 #H Creatinine 1.36 H Est Glomerular Filtrat Rate mL/min 53 L Glucose Level 129 Hemoglobin A1c 4.9 Calcium Level 8.9 Total Bilirubin 0.5 Direct Bilirubin 0.00 Indirect Bilirubin 0.5 Aspartate Amino Transf (AST/SGOT) 47 H Alanine Aminotransferase (ALT/SGPT) 26 Alkaline Phosphatase 88 Total Protein 7.1 Albumin 3.9 Globulin 3.20 Albumin/Globulin Ratio 1.21 Medications Medication Current Medications IV Flush (NS 3 ml) 3 ml PER PROTOCOL IV ; Start 01/11/19 at 13:00 Ondansetron HCl (Zofran Inj) 4 mg Q6H PRN IV NAUSEA/VOMITING; Start 01/11/19 at 13:00 Acetaminophen (Tylenol Tab) 650 mg Q6H PRN PO .PAIN 1-3 OR TEMP; Start 01/11/19 at 13:00 Famotidine (Pepcid Iv) 20 mg Q12 IV Last administered on 01/13/19at 08:55; Admin Dose 20 MG; Start 01/11/19 at 21:00 Enoxaparin Sodium (Lovenox) 30 mg DAILY SC Last administered on 01/12/19at 09:18; Admin Dose 30 MG; Start 01/12/19 at 09:00 Albuterol (Proventil 0.083% (Neb)) 2.5 mg Q6 PRN HHN shortness of breath; Star t 01/11/19 at 13:00 Spironolactone (Aldactone) 50 mg DAILY PO Last administered on 01/13/19 08:57; Admin Dose 50 MG; Start 01/12/19 at 09:00 Furosemide (Lasix) 20 mg DAILY IV Last administered on 01/13/19at 08:59; Admin Dose 20 MG; Start 01/12/19 at 09:00 Metoprolol Succinate (Toprol Xl) 50 mg DAILY PO Last administered on 01/13/19at 09:00; Admin Dose 50 MG; Start 01/12/19 at 09:00 Lorazepam (Ativan) 0.5 mg Q6H PRN IV ANXIETY Last administered on 01/13/19 10:45; Admin Dose 0.5 MG; Start 01/11/19 at 23:00 Clonidine (Catapres) 0.1 mg Q6H PRN PO systolic BP > 160 Last administered on 01/12/19 21:31; Admin Dose 0.1 MG; Start 01/12/19 at 21:00 Hydromorphone HCl (Dilaudid) 1 mg Q4H PRN IV .PAIN 7-10 Last administered on 01/13/19 09:00; Admin Dose 1 MG; Start 01/12/19 at 22:00 Levothyroxine Sodium (Synthroid) 225 mcg DAILY@06 PO Last administered on 01/13/19 06:58; Admin Dose 225 MCG; Start 01/13/19 at 06:00 Allopurinol (Zyloprim) 100 mg DAILY PO Last administered on 01/13/19 08:57; Admin Dose 100 MG; Start 01/13/19 at 09:00 Ascorbic Acid (Vitamin C) 500 mg DAILY PO Last administered on 01/13/19 08:56; Admin Dose 500 MG; Start 01/13/19 at 09:00 Docusate Sodium (Colace) 200 mg QHS PO ; Start 01/13/19 at 21:00 Epoetin Ghulam-epbx (RETACRIT(non-esrd)) 10,000 unit Q48H SC ; Start 01/13/19 at 18:00 Ferrous Sulfate (Ferrous Sulfate (Ec)) 325 mg DAILY PO Last administered on 01/13/19 08:57; Admin Dose 325 MG; Start 01/13/19 at 09:00 Folic Acid (Folic Acid) 1 mg DAILY PO Last administered on 01/13/19 08:57; Admin Dose 1 MG; Start 01/13/19 at 09:00 Gabapentin (Neurontin) 100 mg TID PO Last administered on 01/13/19 12:27; Admin Dose 100 MG; Start 01/13/19 at 09:00 Acetaminophen/ Hydrocodone Bitart ([place] (5/325)) 1 tab Q6H PRN PO PAIN; Start 01/13/19 at 06:30 Lactulose (Enulose) 20 gm BID PO ; Start 01/13/19 at 09:00 Lorazepam (Ativan) 1 mg BID PRN PO ANXIETY; Start 01/13/19 at 06:30 Rifaximin (Xifaxan) 550 mg BID PO ; Start 01/13/19 at 09:00 Sodium Bicarbonate (Sodium Bicarbonate Tab) 325 mg TID PO Last administered on 01/13/19 12:27; Admin Dose 325 MG; Start 01/13/19 at 09:00 Tamsulosin HCl (Flomax) 0.4 mg HS PO ; Start 01/13/19 at 21:00 Thiamine HCl (Vitamin B1) 100 mg DAILY PO Last administered on 01/13/19 08:56; Admin Dose 100 MG; Start 01/13/19 at 09:00 Arformoterol Tartrate (Brovana (Neb)) 2 ml BID RESP THERAPY INH Last administered on 01/13/19 09:41; Admin Dose 2 ML; Start 01/13/19 at 09:00 Budesonide (Pulmicort (Neb)) 0.5 mg Q12H RESP THERAPY INH Last administered on 01/13/19 09:42; Admin Dose 0.5 MG; Start 01/13/19 at 09:00 Dorzolamide/ Timolol (Cosopt Pf Eye Drops) 1 drop BID BOTH EYES Last administered on 01/13/19 12:27; Admin Dose 1 DROP; Start 01/13/19 at 11:30 MELISAS NASH NP Jan 13, 2019 13:25
--- NOTE | 2019-01-13 15:27 | PN ---
Date/Time of Note Date/Time of Note DATE: 01/13/19 TIME: 15:22 Assessment/Plan VTE Prophylaxis Risk score (from Ns)>0 risk: 4 SCD applied (from Ns): Yes Pharmacological prophylaxis: NA/contraindicated Pharm contraindication: thrombocytopenia Lines/Catheters IV [facility]from [facility] Urinary Cath still in place: No Assessment/Plan Hospital Course Patient continues on supplemental oxygen, gets short of breath with exertion, afebrile, stable vital signs, asking for pain and anxiety medication. Assessment/Plan -Shortness of breath, rule out acute coronary syndrome -Acute on chronic diastolic congestive heart failure. Continue Lasix. Dr. Foley is following in cardiology consultation. -COPD exacerbation, continue bronchodilators, steroids, and oxygen supplementation. -Anemia, Dr. Mayes is following in gastroenterology consultation. -Alcoholic liver cirrhosis -Acute kidney injury on chronic kidney disease. Dr. Leung is following in nephrology consultation. -Bilateral lower extremities chronic venous stasis -Left foot plantar ulcer. Dr. Younger is following in podiatry consultation. -Obesity -Nicotine dependence, continue nicotine patch, cessation is strongly advised. -Ongoing alcohol use, cessation is strongly advised. -Poor medical compliance Further recommendations based on clinical course. Plan of care discussed with Dr. Lara. Result Diagram: 01/12/19 1420 01/12/19 1420 Results 24hrs Laboratory Tests Test 01/13/19 14:59 White Blood Count Pending Red Blood Count Pending Hemoglobin Pending Hematocrit Pending Mean Corpuscular Volume Pending Mean Corpuscular Hemoglobin Pending Mean Corpuscular Hemoglobin Concent Pending Red Cell Distribution Width Pending Platelet Count Pending Mean Platelet Volume Pending Exam/Review of Systems Exam Vitals Vital Signs Date Temp Pulse Resp B/P (MAP) Pulse Ox O2 O2 Flow FiO2 Time Delivery Rate 01/13/19 76 12:00 01/13/19 98.2 22 149/67 96 Nasal 2.0 11:26 (94) Cannula 01/13/19 28 09:51 Intake and Output 01/12/19 01/12/19 01/13/19 1515:00 23:00 07:00 IntakeIntake Total 1200 ml 800 ml OutputOutput Total 1500 ml 1000 ml BalanceBalance -300 ml -200 ml Exam Constitutional: alert, oriented Respiratory: diminished breath sounds, wheezing Cardiovascular: regular rate and rhythm Gastrointestinal: soft, distended Extremities: normal pulses, edema, other (Bilateral lower extremities erythema) Neurological: nl mental status Skin: other (Left foot plantar ulcer) Results Results 24hrs Laboratory Tests Test 01/13/19 14:59 White Blood Count Pending Red Blood Count Pending Hemoglobin Pending Hematocrit Pending Mean Corpuscular Volume Pending Mean Corpuscular Hemoglobin Pending Mean Corpuscular Hemoglobin Concent Pending Red Cell Distribution Width Pending Platelet Count Pending Mean Platelet Volume Pending Medications Medication Current Medications IV Flush (NS 3 ml) 3 ml PER PROTOCOL IV ; Start 01/11/19 at 13:00 Ondansetron HCl (Zofran Inj) 4 mg Q6H PRN IV NAUSEA/VOMITING; Start 01/11/19 at 13:00 Acetaminophen (Tylenol Tab) 650 mg Q6H PRN PO .PAIN 1-3 OR TEMP; Start 01/11/19 at 13:00 Famotidine (Pepcid Iv) 20 mg Q12 IV Last administered on 01/13/19at 08:55; Admin Dose 20 MG; Start 01/11/19 at 21:00 Albuterol (Proventil 0.083% (Neb)) 2.5 mg Q6 PRN HHN shortness of breath; Start 01/11/19 at 13:00 Spironolactone (Aldactone) 50 mg DAILY PO Last administered on 01/13/19at 08:57; Admin Dose 50 MG; Start 01/12/19 at 09:00 Furosemide (Lasix) 20 mg DAILY IV Last administered on 01/13/19at 08:59; Admin Dose 20 MG; Start 01/12/19 at 09:00 Metoprolol Succinate (Toprol Xl) 50 mg DAILY PO Last administered on 01/13/19 09:00; Admin Dose 50 MG; Start 01/12/19 at 09:00 Lorazepam (Ativan) 0.5 mg Q6H PRN IV ANXIETY Last administered on 01/13/19at 10:45; Admin Dose 0.5 MG; Start 01/11/19 at 23:00 Clonidine (Catapres) 0.1 mg Q6H PRN PO systolic BP > 160 Last administered on 01/12/19at 21:31; Admin Dose 0.1 MG; Start 01/12/19 at 21:00 Hydromorphone HCl (Dilaudid) 1 mg Q4H PRN IV .PAIN 7-10 Last administered on 01/13/19at 14:21; Admin Dose 1 MG; Start 01/12/19 at 22:00 Levothyroxine Sodium (Synthroid) 225 mcg DAILY@06 PO Last administered on 01/13/19at 06:58; Admin Dose 225 MCG; Start 01/13/19 at 06:00 Allopurinol (Zyloprim) 100 mg DAILY PO Last administered on 01/13/19 08:57; Admin Dose 100 MG; Start 01/13/19 at 09:00 Ascorbic Acid (Vitamin C) 500 mg DAILY PO Last administered on 01/13/19 08:56; Admin Dose 500 MG; Start 01/13/19 at 09:00 Docusate Sodium (Colace) 200 mg QHS PO ; Start 01/13/19 at 21:00 Epoetin Ghulam-epbx (RETACRIT(non-esrd)) 10,000 unit Q48H SC ; Start 01/13/19 at 18:00 Ferrous Sulfate (Ferrous Sulfate (Ec)) 325 mg DAILY PO Last administered on 01/13/19 08:57; Admin Dose 325 MG; Start 01/13/19 at 09:00 Folic Acid (Folic Acid) 1 mg DAILY PO Last administered on 01/13/19 08:57; Admin Dose 1 MG; Start 01/13/19 at 09:00 Gabapentin (Neurontin) 100 mg TID PO Last administered on 01/13/19 12:27; Admin Dose 100 MG; Start 01/13/19 at 09:00 Acetaminophen/ Hydrocodone Bitart ([place] (5/325)) 1 tab Q6H PRN PO PAIN; Start 01/13/19 at 06:30 Lactulose (Enulose) 20 gm BID PO ; Start 01/13/19 at 09:00 Lorazepam (Ativan) 1 mg BID PRN PO ANXIETY; Start 01/13/19 at 06:30 Rifaximin (Xifaxan) 550 mg BID PO ; Start 01/13/19 at 09:00 Sodium Bicarbonate (Sodium Bicarbonate Tab) 325 mg TID PO Last administered on 01/13/19at 12:27; Admin Dose 325 MG; Start 01/13/19 at 09:00 Tamsulosin HCl (Flomax) 0.4 mg HS PO ; Start 01/13/19 at 21:00 Thiamine HCl (Vitamin B1) 100 mg DAILY PO Last administered on 01/13/19 08:56; Admin Dose 100 MG; Start 01/13/19 at 09:00 Arformoterol Tartrate (Brovana (Neb)) 2 ml BID RESP THERAPY INH Last administered on 01/13/19 09:41; Admin Dose 2 ML; Start 01/13/19 at 09:00 Budesonide (Pulmicort (Neb)) 0.5 mg Q12H RESP THERAPY INH Last administered on 01/13/19 09:42; Admin Dose 0.5 MG; Start 01/13/19 at 09:00 Dorzolamide/ Timolol (Cosopt Pf Eye Drops) 1 drop BID BOTH EYES Last administered on 01/13/19 12:27; Admin Dose 1 DROP; Start 01/13/19 at 11:30 MILLICENT GOVEA Jan 13, 2019 15:27
[2019-01-13] MEDS: EPOETIN ALFA-EPBX (NON-ESRD 10,000 UNIT/ML VIAL SC SCH (17:01)
[2019-01-13] MEDS: FAMOTIDINE 20 MG TAB PO SCH (20:11)
[2019-01-13] MEDS: DOCUSATE SODIUM 100 MG CAP PO SCH (20:11)
[2019-01-13] MEDS: TAMSULOSIN (SR) 0.4 MG CAP PO SCH (20:11)
[2019-01-14] VITALS: BP 158/70; PULSE 77; RESP 19
[2019-01-14] MEDS: LORAZEPAM 2 MG INJ IV PRN ×3 (00:06→13:07)
[2019-01-14] MEDS: HYDROmorphONE 2 MG/ML SYG IV PRN ×5 (00:06→18:36)
[2019-01-14 04:00] VITALS: BP 145/67; RESP 19
[2019-01-14] MEDS: LEVOTHYROXINE 75 MCG TAB PO SCH (06:23)
[2019-01-14 07:54] VITALS: BP 142/63; PULSE 75; RESP 16
[2019-01-14] MEDS: BUDESONIDE (NEB) 0.5MG/2ML AMP INH SCH ×2 (08:00→19:54)
[2019-01-14] MEDS: ARFORMOTEROL TARTRATE 15MCG/2 ML AMP INH SCH ×2 (08:55→19:53)
[2019-01-14] MEDS: LACTULOSE 30ML CUP PO SCH ×2 (09:00→20:37)
[2019-01-14] MEDS: DORZOLAMIDE/TIMOLOL/PF 0.2 ML DROPERETTE BOTH EYES SCH ×2 (09:09→20:37)
[2019-01-14] MEDS: NICOTINE (21 MG/24 HR) PATCH TRANSDERM SCH (09:09)
[2019-01-14] MEDS: RIFAXIMIN 550 MG TAB PO SCH ×2 (09:10→20:37)
[2019-01-14] MEDS: THIAMINE 100 MG TAB PO SCH (09:10)
[2019-01-14] MEDS: GABAPENTIN 100 MG CAP PO SCH ×3 (09:10→20:37)
[2019-01-14] MEDS: NA BICARBONATE 650 MG TAB PO SCH ×3 (09:10→20:37)
[2019-01-14] MEDS: ASCORBIC ACID 500 MG TAB PO SCH (09:10)
[2019-01-14] MEDS: FAMOTIDINE 20 MG TAB PO SCH ×2 (09:11→20:37)
[2019-01-14] MEDS: FERROUS SULFATE (EC) 325 MG TAB PO SCH (09:11)
[2019-01-14] MEDS: SPIRONOLACTONE 50 MG TAB PO SCH (09:11)
[2019-01-14] MEDS: ALLOPURINOL 100 MG TAB PO SCH (09:11)
[2019-01-14] MEDS: FOLIC ACID 1 MG TAB PO SCH (09:11)
[2019-01-14] MEDS: FUROSEMIDE 20 MG INJ IV SCH (09:12)
[2019-01-14] MEDS: METOPROLOL (XL) 50 MG TAB PO SCH (09:12)
--- NOTE | 2019-01-14 09:57 | CONS ---
Assessment/Plan Assessment/Plan Assessment/Plan (Daily) 1. acute on chronic renal failure due to Type II hepatorenal syndrome 2. SIRS 3. anemia of CKD 5. Decompensated Liver cirrhosis with Symptomatic ascites 6. H/O HTN 7. h/o Liver cirrhosis with ascites 8. H/o Diastolic CHF 9. Bilateral LE chronic venous stasis Plan: Continue IV abx as per ID , renally dose all abx , monitor electorlytes and replace as needed, BUN/Cr 39/1.45, Na 140- other Electrolyte stable, lasix 20mg IV daily, spironolactone 50mg po daily , Toprol Xl 50mg po daily on Sodium bicarbonte 325mg PO TID will follow up Consultation Date/Type/Reason Admit Date/Time Jan 11, 2019 at 09:53 Initial Consult Date 01/11/19 Type of Consult Nephrology Requesting Provider: WERNER KING Date/Time of Note DATE: 01/14/19 TIME: 09:57 Exam/Review of Systems Exam Vitals Vital Signs Date Temp Pulse Resp B/P (MAP) Pulse Ox O2 O2 Flow FiO2 Time Delivery Rate 01/14/19 98.4 75 16 142/63 98 Room Air 07:54 (89) 01/14/19 2.0 05:37 01/13/19 21 21:15 Intake and Output 01/13/19 01/13/19 01/14/19 1515:00 23:00 07:00 IntakeIntake Total 860 ml 800 ml OutputOutput Total 900 ml 950 ml BalanceBalance -40 ml -150 ml Results Result Diagram: 01/14/19 0633 01/14/19 0633 Results 24hrs Laboratory Tests Test 01/13/19 14:59 01/14/19 06:33 White Blood Count 10.7 13.7 #H Red Blood Count 4.02 L 4.25 L Hemoglobin 8.7 L 9.0 L Hematocrit 31.3 L 32.9 L Mean Corpuscular Volume 77.9 L 77.4 L Mean Corpuscular Hemoglobin 21.6 L 21.2 L Mean Corpuscular Hemoglobin Concent 27.8 L 27.4 L Red Cell Distribution Width 22.6 H 23.3 H Platelet Count 113 L 124 L Mean Platelet Volume Immature Granulocytes % 1.900 H 4.500 H Segmented Neutrophils % (Manual) 66 Band Neutrophils % (Manual) 2 Lymphocytes % (Manual) 7 L Monocytes % (Manual) 20 H Eosinophils % (Manual) 4 Basophils % (Manual) 1 Nucleated Red Blood Cells % 0.0 0.0 Immature Granulocytes # 0.200 H 0.610 H Neutrophils # (Manual) 7.1 Band Neutrophils # 0.2 Lymphocytes (Manual) 0.7 L Monocytes # (Manual) 2.1 H Basophils # (Manual) 0.1 H Platelet Estimate DECREASED Polychromasia 1+ Hypochromasia 2+ Poikilocytosis 1+ Anisocytosis 1+ Microcytosis 1+ Target Cells 1+ Sodium Level 140 140 Potassium Level 4.8 4.8 Chloride Level 107 107 Carbon Dioxide Level 27 23 Anion Gap 6 10 Blood Urea Nitrogen 43 H 39 H Creatinine 1.61 H 1.45 H Est Glomerular Filtrat Rate mL/min 44 L 49 L Glucose Level 80 # 92 Calcium Level 8.8 9.0 Total Bilirubin 0.3 Direct Bilirubin 0.00 Indirect Bilirubin 0.3 Aspartate Amino Transf (AST/SGOT) 52 H Alanine Aminotransferase (ALT/SGPT) 35 Alkaline Phosphatase 99 Total Protein 6.5 Albumin 3.6 Globulin 2.90 Albumin/Globulin Ratio 1.24 Neutrophils % 58.3 Lymphocytes % 7.4 L Monocytes % 24.1 H Eosinophils % 4.5 Basophils % 1.2 Neutrophils # 8.0 H Lymphocytes # 1.0 Monocytes # 3.3 H Eosinophils # 0.6 H Basophils # 0.2 H Nucleated Red Blood Cells # 0.0 Medications Medication Current Medications IV Flush (NS 3 ml) 3 ml PER PROTOCOL IV ; Start 01/11/19 at 13:00 Ondansetron HCl (Zofran Inj) 4 mg Q6H PRN IV NAUSEA/VOMITING; Start 01/11/19 at 13:00 Acetaminophen (Tylenol Tab) 650 mg Q6H PRN PO .PAIN 1-3 OR TEMP; Start 01/11/19 at 13:00 Albuterol (Proventil 0.083% (Neb)) 2.5 mg Q6 PRN HHN shortness of breath; Start 01/11/19 at 13:00 Spironolactone (Aldactone) 50 mg DAILY PO Last administered on 01/14/19at 09:11; Admin Dose 50 MG; Start 01/12/19 at 09:00 Furosemide (Lasix) 20 mg DAILY IV Last administered on 01/14/19 09:12; Admin Dose 20 MG; Start 01/12/19 at 09:00 Metoprolol Succinate (Toprol Xl) 50 mg DAILY PO Last administered on 01/14/19 09:12; Admin Dose 50 MG; Start 01/12/19 at 09:00 Lorazepam (Ativan) 0.5 mg Q6H PRN IV ANXIETY Last administered on 01/14/19 06:37; Admin Dose 0.5 MG; Start 01/11/19 at 23:00 Clonidine (Catapres) 0.1 mg Q6H PRN PO systolic BP > 160 Last administered on 01/12/19 21:31; Admin Dose 0.1 MG; Start 01/12/19 at 21:00 Levothyroxine Sodium (Synthroid) 225 mcg DAILY@06 PO Last administered on 01/14/19 06:23; Admin Dose 225 MCG; Start 01/13/19 at 06:00 Allopurinol (Zyloprim) 100 mg DAILY PO Last administered on 01/14/19 09:11; Admin Dose 100 MG; Start 01/13/19 at 09:00 Ascorbic Acid (Vitamin C) 500 mg DAILY PO Last administered on 01/14/19 09:10; Admin Dose 500 MG; Start 01/13/19 at 09:00 Docusate Sodium (Colace) 200 mg QHS PO Last administered on 01/13/19 20:11; Admin Dose 200 MG; Start 01/13/19 at 21:00 Epoetin Ghulam-epbx (RETACRIT(non-esrd)) 10,000 unit Q48H SC Last administered on 01/13/19 17:01; Admin Dose 10,000 UNIT; Start 01/13/19 at 18:00 Ferrous Sulfate (Ferrous Sulfate (Ec)) 325 mg DAILY PO Last administered on 01/14/19 09:11; Admin Dose 325 MG; Start 01/13/19 at 09:00 Folic Acid (Folic Acid) 1 mg DAILY PO Last administered on 01/14/19 09:11; Admin Dose 1 MG; Start 01/13/19 at 09:00 Gabapentin (Neurontin) 100 mg TID PO Last administered on 01/14/19 09:10; Admin Dose 100 MG; Start 01/13/19 at 09:00 Acetaminophen/ Hydrocodone Bitart ([place] (5/325)) 1 tab Q6H PRN PO PAIN; Start 01/13/19 at 06:30 Lactulose (Enulose) 20 gm BID PO ; Start 01/13/19 at 09:00 Lorazepam (Ativan) 1 mg BID PRN PO ANXIETY; Start 01/13/19 at 06:30 Rifaximin (Xifaxan) 550 mg BID PO Last administered on 01/14/19 09:10; Admin Dose 550 MG; Start 01/13/19 at 09:00 Sodium Bicarbonate (Sodium Bicarbonate Tab) 325 mg TID PO Last administered on 01/14/19 09:10; Admin Dose 325 MG; Start 01/13/19 at 09:00 Tamsulosin HCl (Flomax) 0.4 mg HS PO Last administered on 01/13/19 20:11; Admin Dose 0.4 MG; Start 01/13/19 at 21:00 Thiamine HCl (Vitamin B1) 100 mg DAILY PO Last administered on 01/14/19 09:10; Admin Dose 100 MG; Start 01/13/19 at 09:00 Arformoterol Tartrate (Brovana (Neb)) 2 ml BID RESP THERAPY INH Last administered on 01/13/19 21:14; Admin Dose 2 ML; Start 01/13/19 at 09:00 Budesonide (Pulmicort (Neb)) 0.5 mg Q12H RESP THERAPY INH Last administered on 01/13/19 21:15; Admin Dose 0.5 MG; Start 01/13/19 at 09:00 Dorzolamide/ Timolol (Cosopt Pf Eye Drops) 1 drop BID BOTH EYES Last administered on 01/14/19 09:09; Admin Dose 1 DROP; Start 01/13/19 at 11:30 Nicotine (Nicoderm 21 Mg/ 24hr) 1 patch DAILY TRANSDERM Last administered on 01/14/19 09:09; Admin Dose 1 PATCH; Start 01/14/19 at 09:00 Famotidine (Pepcid) 20 mg Q12 PO Last administered on 01/14/19 09:11; Admin Dose 20 MG; Start 01/13/19 at 21:00 Hydromorphone HCl (Dilaudid) 1.5 mg Q4H PRN IV .PAIN 7-10 Last administered on 01/14/19at 09:06; Admin Dose 1.5 MG; Start 01/13/19 at 22:00 ELADIO DELGADO MD Jan 14, 2019 09:57
--- NOTE | 2019-01-14 11:41 | PN ---
Date/Time of Note Date/Time of Note DATE: 01/14/19 TIME: 11:36 Assessment/Plan VTE [place]axis [place] [facility] [place]: 5 [place] [facility] [place] Yes Pharmacological prophylaxis: NA/contraindicated Pharm contraindication: thrombocytopenia Lines/Catheters IV Catheter Type (from [facility] [place] Urinary Cath still in place: No Assessment/Plan Hospital Course No acute events overnight, patient continues on supplemental oxygen, afebrile, stable vital signs, continue to monitor on medical surgical floor. Assessment/Plan -Shortness of breath, rule out acute coronary syndrome -Acute on chronic diastolic congestive heart failure. Continue Lasix. Dr. Foley is following in cardiology consultation. -COPD exacerbation, continue bronchodilators, steroids, and oxygen supplementation. -Anemia, Dr. Mayes is following in gastroenterology consultation. -Alcoholic liver cirrhosis -Acute kidney injury on chronic kidney disease. Dr. Leung is following in nephrology consultation. -Bilateral lower extremities chronic venous stasis -Left foot plantar ulcer. Dr. Younger is following in podiatry consultation. -Obesity -Nicotine dependence, continue nicotine patch, cessation is strongly advised. -Ongoing alcohol use, cessation is strongly advised. -Poor medical compliance Further recommendations based on clinical course. Plan of care discussed with Dr. Lara. Result Diagram: 01/14/1933 01/14/1933 Results 24hrs Laboratory Tests Test 01/13/19 14:59 01/14/19 06:33 White Blood Count 10.7 13.7 #H Red Blood Count 4.02 L 4.25 L Hemoglobin 8.7 L 9.0 L Hematocrit 31.3 L 32.9 L Mean Corpuscular Volume 77.9 L 77.4 L Mean Corpuscular Hemoglobin 21.6 L 21.2 L Mean Corpuscular Hemoglobin Concent 27.8 L 27.4 L Red Cell Distribution Width 22.6 H 23.3 H Platelet Count 113 L 124 L Mean Platelet Volume Immature Granulocytes % 1.900 H 4.500 H Segmented Neutrophils % (Manual) 66 Band Neutrophils % (Manual) 2 Lymphocytes % (Manual) 7 L Monocytes % (Manual) 20 H Eosinophils % (Manual) 4 Basophils % (Manual) 1 Nucleated Red Blood Cells % 0.0 0.0 Immature Granulocytes # 0.200 H 0.610 H Neutrophils # (Manual) 7.1 Band Neutrophils # 0.2 Lymphocytes (Manual) 0.7 L Monocytes # (Manual) 2.1 H Basophils # (Manual) 0.1 H Platelet Estimate DECREASED Polychromasia 1+ Hypochromasia 2+ Poikilocytosis 1+ Anisocytosis 1+ Microcytosis 1+ Target Cells 1+ Sodium Level 140 140 Potassium Level 4.8 4.8 Chloride Level 107 107 Carbon Dioxide Level 27 23 Anion Gap 6 10 Blood Urea Nitrogen 43 H 39 H Creatinine 1.61 H 1.45 H Est Glomerular Filtrat Rate mL/min 44 L 49 L Glucose Level 80 # 92 Calcium Level 8.8 9.0 Total Bilirubin 0.3 Direct Bilirubin 0.00 Indirect Bilirubin 0.3 Aspartate Amino Transf (AST/SGOT) 52 H Alanine Aminotransferase (ALT/SGPT) 35 Alkaline Phosphatase 99 Total Protein 6.5 Albumin 3.6 Globulin 2.90 Albumin/Globulin Ratio 1.24 Neutrophils % 58.3 Lymphocytes % 7.4 L Monocytes % 24.1 H Eosinophils % 4.5 Basophils % 1.2 Neutrophils # 8.0 H Lymphocytes # 1.0 Monocytes # 3.3 H Eosinophils # 0.6 H Basophils # 0.2 H Nucleated Red Blood Cells # 0.0 Exam/Review of Systems Exam Vitals Vital Signs Date Temp Pulse Resp B/P (MAP) Pulse Ox O2 O2 Flow FiO2 Time Delivery Rate 01/14/19 98.4 75 16 142/63 98 Room Air 07:54 (89) 01/14/19 2.0 05:37 01/13/19 21 21:15 Intake and Output 01/13/19 01/13/19 01/14/19 1515:00 23:00 07:00 IntakeIntake Total 860 ml 800 ml OutputOutput Total 900 ml 950 ml BalanceBalance -40 ml -150 ml Exam Constitutional: alert, oriented Respiratory: diminished breath sounds, wheezing Cardiovascular: regular rate and rhythm Gastrointestinal: soft, distended Extremities: normal pulses, edema, other (Bilateral lower extremities erythema) Neurological: nl mental status Skin: other (Left foot plantar ulcer) Results Results 24hrs Laboratory Tests Test 01/13/19 14:59 01/14/19 06:33 White Blood Count 10.7 13.7 #H Red Blood Count 4.02 L 4.25 L Hemoglobin 8.7 L 9.0 L Hematocrit 31.3 L 32.9 L Mean Corpuscular Volume 77.9 L 77.4 L Mean Corpuscular Hemoglobin 21.6 L 21.2 L Mean Corpuscular Hemoglobin Concent 27.8 L 27.4 L Red Cell Distribution Width 22.6 H 23.3 H Platelet Count 113 L 124 L Mean Platelet Volume Immature Granulocytes % 1.900 H 4.500 H Segmented Neutrophils % (Manual) 66 Band Neutrophils % (Manual) 2 Lymphocytes % (Manual) 7 L Monocytes % (Manual) 20 H Eosinophils % (Manual) 4 Basophils % (Manual) 1 Nucleated Red Blood Cells % 0.0 0.0 Immature Granulocytes # 0.200 H 0.610 H Neutrophils # (Manual) 7.1 Band Neutrophils # 0.2 Lymphocytes (Manual) 0.7 L Monocytes # (Manual) 2.1 H Basophils # (Manual) 0.1 H Platelet Estimate DECREASED Polychromasia 1+ Hypochromasia 2+ Poikilocytosis 1+ Anisocytosis 1+ Microcytosis 1+ Target Cells 1+ Sodium Level 140 140 Potassium Level 4.8 4.8 Chloride Level 107 107 Carbon Dioxide Level 27 23 Anion Gap 6 10 Blood Urea Nitrogen 43 H 39 H Creatinine 1.61 H 1.45 H Est Glomerular Filtrat Rate mL/min 44 L 49 L Glucose Level 80 # 92 Calcium Level 8.8 9.0 Total Bilirubin 0.3 Direct Bilirubin 0.00 Indirect Bilirubin 0.3 Aspartate Amino Transf (AST/SGOT) 52 H Alanine Aminotransferase (ALT/SGPT) 35 Alkaline Phosphatase 99 Total Protein 6.5 Albumin 3.6 Globulin 2.90 Albumin/Globulin Ratio 1.24 Neutrophils % 58.3 Lymphocytes % 7.4 L Monocytes % 24.1 H Eosinophils % 4.5 Basophils % 1.2 Neutrophils # 8.0 H Lymphocytes # 1.0 Monocytes # 3.3 H Eosinophils # 0.6 H Basophils # 0.2 H Nucleated Red Blood Cells # 0.0 Medications Medication Current Medications IV Flush (NS 3 ml) 3 ml PER PROTOCOL IV ; Start 01/11/19 at 13:00 Ondansetron HCl (Zofran Inj) 4 mg Q6H PRN IV NAUSEA/VOMITING; Start 01/11/19 at 13:00 Acetaminophen (Tylenol Tab) 650 mg Q6H PRN PO .PAIN 1-3 OR TEMP; Start 01/11/19 at 13:00 Albuterol (Proventil 0.083% (Neb)) 2.5 mg Q6 PRN HHN shortness of breath; Start 01/11/19 at 13:00 Spironolactone (Aldactone) 50 mg DAILY PO Last administered on 01/14/19 09:11; Admin Dose 50 MG; Start 01/12/19 at 09:00 Furosemide (Lasix) 20 mg DAILY IV Last administered on 01/14/19 09:12; Admin Dose 20 MG; Start 01/12/19 at 09:00 Metoprolol Succinate (Toprol Xl) 50 mg DAILY PO Last administered on 01/14/19 09:12; Admin Dose 50 MG; Start 01/12/19 at 09:00 Lorazepam (Ativan) 0.5 mg Q6H PRN IV ANXIETY Last administered on 01/14/19 06:37; Admin Dose 0.5 MG; Start 01/11/19 at 23:00 Clonidine (Catapres) 0.1 mg Q6H PRN PO systolic BP > 160 Last administered on 01/12/19 21:31; Admin Dose 0.1 MG; Start 01/12/19 at 21:00 Levothyroxine Sodium (Synthroid) 225 mcg DAILY@06 PO Last administered on 01/14/19 06:23; Admin Dose 225 MCG; Start 01/13/19 at 06:00 Allopurinol (Zyloprim) 100 mg DAILY PO Last administered on 01/14/19 09:11; Admin Dose 100 MG; Start 01/13/19 at 09:00 Ascorbic Acid (Vitamin C) 500 mg DAILY PO Last administered on 01/14/19 09:10; Admin Dose 500 MG; Start 01/13/19 at 09:00 Docusate Sodium (Colace) 200 mg QHS PO Last administered on 01/13/19 20:11; Admin Dose 200 MG; Start 01/13/19 at 21:00 Epoetin Ghulam-epbx (RETACRIT(non-esrd)) 10,000 unit Q48H SC Last administered on 01/13/19 17:01; Admin Dose 10,000 UNIT; Start 01/13/19 at 18:00 Ferrous Sulfate (Ferrous Sulfate (Ec)) 325 mg DAILY PO Last administered on 01/14/19 09:11; Admin Dose 325 MG; Start 01/13/19 at 09:00 Folic Acid (Folic Acid) 1 mg DAILY PO Last administered on 01/14/19 09:11; Admin Dose 1 MG; Start 01/13/19 at 09:00 Gabapentin (Neurontin) 100 mg TID PO Last administered on 01/14/19 09:10; Admin Dose 100 MG; Start 01/13/19 at 09:00 Acetaminophen/ Hydrocodone Bitart ([place] (5/325)) 1 tab Q6H PRN PO PAIN; Start 01/13/19 at 06:30 Lactulose (Enulose) 20 gm BID PO ; Start 01/13/19 at 09:00 Lorazepam (Ativan) 1 mg BID PRN PO ANXIETY; Start 01/13/19 at 06:30 Rifaximin (Xifaxan) 550 mg BID PO Last administered on 01/14/19 09:10; Admin Dose 550 MG; Start 01/13/19 at 09:00 Sodium Bicarbonate (Sodium Bicarbonate Tab) 325 mg TID PO Last administered on 01/14/19 09:10; Admin Dose 325 MG; Start 01/13/19 at 09:00 Tamsulosin HCl (Flomax) 0.4 mg HS PO Last administered on 01/13/19 20:11; Admin Dose 0.4 MG; Start 01/13/19 at 21:00 Thiamine HCl (Vitamin B1) 100 mg DAILY PO Last administered on 01/14/19 09:10; Admin Dose 100 MG; Start 01/13/19 at 09:00 Arformoterol Tartrate (Brovana (Neb)) 2 ml BID RESP THERAPY INH Last administered on 01/13/19 21:14; Admin Dose 2 ML; Start 01/13/19 at 09:00 Budesonide (Pulmicort (Neb)) 0.5 mg Q12H RESP THERAPY INH Last administered on 01/13/19 21:15; Admin Dose 0.5 MG; Start 01/13/19 at 09:00 Dorzolamide/ Timolol (Cosopt Pf Eye Drops) 1 drop BID BOTH EYES Last administered on 01/14/19 09:09; Admin Dose 1 DROP; Start 01/13/19 at 11:30 Nicotine (Nicoderm 21 Mg/ 24hr) 1 patch DAILY TRANSDERM Last administered on 01/14/19 09:09; Admin Dose 1 PATCH; Start 01/14/19 at 09:00 Famotidine (Pepcid) 20 mg Q12 PO Last administered on 01/14/19 09:11; Admin Dose 20 MG; Start 01/13/19 at 21:00 Hydromorphone HCl (Dilaudid) 1.5 mg Q4H PRN IV .PAIN 7-10 Last administered on 01/14/19 09:06; Admin Dose 1.5 MG; Start 01/13/19 at 22:00 MILLICENT GOVEA Jan 14, 2019 11:41
[2019-01-14 15:08] VITALS: BP 145/67; PULSE 75; RESP 16
[2019-01-14] MEDS: HYDROCODONE/APAP (5/325) TAB PO PRN ×2 (15:12→21:11)
--- NOTE | 2019-01-14 15:19 | CONS ---
Assessment/Plan Assessment/Plan Hospital Course (Demo Recall) Alert, feels good, eating, no fevers Antimicrobials: none Physical examination: This is a wasted well-developed chronically ill-appearing elderly man who is in no distress. Head atraumatic normocephalic sclera nonicteric. Neck is supple chest rise symmetrical breath sounds diminished bases. Heart: S1-S2. Abdomen soft bowel sounds present. Extremities without cyanosis. Assessment: 1. S/p systemic inflammatory response syndrome 2. S/p COPD exacerbation 3. Alcohol abuse 4. Bilateral lower extremities chronic venous stasis 5. Cirrhosis with recurrent ascites 6. Chronic kidney disease 7. CHF 8. Noncompliance Plan: Clinically unchanged, stable, continue present care Consultation Date/Type/Reason Admit Date/Time Jan 11, 2019 at 09:53 Initial Consult Date Type of Consult id Requesting Provider: WERNER KING Date/Time of Note DATE: 01/14/19 TIME: 15:19 Exam/Review of Systems Exam Vitals Vital Signs Date Temp Pulse Resp B/P (MAP) Pulse Ox O2 O2 Flow FiO2 Time Delivery Rate 01/14/19 97.7 75 16 145/67 98 Room Air 15:08 (93) 01/14/19 2.0 05:37 01/13/19 21 21:15 Intake and Output 01/13/19 01/13/19 01/14/19 1515:00 23:00 07:00 IntakeIntake Total 860 ml 800 ml OutputOutput Total 900 ml 950 ml BalanceBalance -40 ml -150 ml Results Result Diagram: 01/14/19 0633 01/14/19 0633 Results 24hrs Laboratory Tests Test 01/14/19 06:33 White Blood Count 13.7 #H Red Blood Count 4.25 L Hemoglobin 9.0 L Hematocrit 32.9 L Mean Corpuscular Volume 77.4 L Mean Corpuscular Hemoglobin 21.2 L Mean Corpuscular Hemoglobin Concent 27.4 L Red Cell Distribution Width 23.3 H Platelet Count 124 L Mean Platelet Volume Immature Granulocytes % 4.500 H Neutrophils % 58.3 Lymphocytes % 7.4 L Monocytes % 24.1 H Eosinophils % 4.5 Basophils % 1.2 Nucleated Red Blood Cells % 0.0 Immature Granulocytes # 0.610 H Neutrophils # 8.0 H Lymphocytes # 1.0 Monocytes # 3.3 H Eosinophils # 0.6 H Basophils # 0.2 H Nucleated Red Blood Cells # 0.0 Sodium Level 140 Potassium Level 4.8 Chloride Level 107 Carbon Dioxide Level 23 Anion Gap 10 Blood Urea Nitrogen 39 H Creatinine 1.45 H Est Glomerular Filtrat Rate mL/min 49 L Glucose Level 92 Calcium Level 9.0 Medications Medication Current Medications IV Flush (NS 3 ml) 3 ml PER PROTOCOL IV ; Start 01/11/19 at 13:00 Ondansetron HCl (Zofran Inj) 4 mg Q6H PRN IV NAUSEA/VOMITING; Start 01/11/19 at 13:00 Acetaminophen (Tylenol Tab) 650 mg Q6H PRN PO .PAIN 1-3 OR TEMP; Start 01/11/19 at 13:00 Albuterol (Proventil 0.083% (Neb)) 2.5 mg Q6 PRN HHN shortness of breath; Start 01/11/19 at 13:00 Spironolactone (Aldactone) 50 mg DAILY PO Last administered on 01/14/19 09:11; Admin Dose 50 MG; Start 01/12/19 at 09:00 Furosemide (Lasix) 20 mg DAILY IV Last administered on 01/14/19 09:12; Admin Dose 20 MG; Start 01/12/19 at 09:00 Metoprolol Succinate (Toprol Xl) 50 mg DAILY PO Last administered on 01/14/19 09:12; Admin Dose 50 MG; Start 01/12/19 at 09:00 Lorazepam (Ativan) 0.5 mg Q6H PRN IV ANXIETY Last administered on 01/14/19 13:07; Admin Dose 0.5 MG; Start 01/11/19 at 23:00 Clonidine (Catapres) 0.1 mg Q6H PRN PO systolic BP > 160 Last administered on 01/12/19 21:31; Admin Dose 0.1 MG; Start 01/12/19 at 21:00 Levothyroxine Sodium (Synthroid) 225 mcg DAILY@06 PO Last administered on 01/14/19 06:23; Admin Dose 225 MCG; Start 01/13/19 at 06:00 Allopurinol (Zyloprim) 100 mg DAILY PO Last administered on 01/14/19 09:11; Admin Dose 100 MG; Start 01/13/19 at 09:00 Ascorbic Acid (Vitamin C) 500 mg DAILY PO Last administered on 01/14/19 09:10; Admin Dose 500 MG; Start 01/13/19 at 09:00 Docusate Sodium (Colace) 200 mg QHS PO Last administered on 01/13/19 20:11; Admin Dose 200 MG; Start 01/13/19 at 21:00 Epoetin Ghulam-epbx (RETACRIT(non-esrd)) 10,000 unit Q48H SC Last administered on 01/13/19 17:01; Admin Dose 10,000 UNIT; Start 01/13/19 at 18:00 Ferrous Sulfate (Ferrous Sulfate (Ec)) 325 mg DAILY PO Last administered on 01/14/19 09:11; Admin Dose 325 MG; Start 01/13/19 at 09:00 Folic Acid (Folic Acid) 1 mg DAILY PO Last administered on 01/14/19 09:11; Admin Dose 1 MG; Start 01/13/19 at 09:00 Gabapentin (Neurontin) 100 mg TID PO Last administered on 01/14/19 12:51; Ad min Dose 100 MG; Start 01/13/19 at 09:00 Acetaminophen/ Hydrocodone Bitart ([place] (5/325)) 1 tab Q6H PRN PO PAIN Last administered on 01/14/19 15:12; Admin Dose 1 TAB; Start 01/13/19 at 06:30 Lactulose (Enulose) 20 gm BID PO ; Start 01/13/19 at 09:00 Lorazepam (Ativan) 1 mg BID PRN PO ANXIETY; Start 01/13/19 at 06:30 Rifaximin (Xifaxan) 550 mg BID PO Last administered on 01/14/19 09:10; Admin Dose 550 MG; Start 01/13/19 at 09:00 Sodium Bicarbonate (Sodium Bicarbonate Tab) 325 mg TID PO Last administered on 01/14/19 12:51; Admin Dose 325 MG; Start 01/13/19 at 09:00 Tamsulosin HCl (Flomax) 0.4 mg HS PO Last administered on 01/13/19 20:11; Admin Dose 0.4 MG; Start 01/13/19 at 21:00 Thiamine HCl (Vitamin B1) 100 mg DAILY PO Last administered on 01/14/19 09:10; Admin Dose 100 MG; Start 01/13/19 at 09:00 Arformoterol Tartrate (Brovana (Neb)) 2 ml BID RESP THERAPY INH Last administered on 01/13/19 21:14; Admin Dose 2 ML; Start 01/13/19 at 09:00 Budesonide (Pulmicort (Neb)) 0.5 mg Q12H RESP THERAPY INH Last administered on 01/13/19 21:15; Admin Dose 0.5 MG; Start 01/13/19 at 09:00 Dorzolamide/ Timolol (Cosopt Pf Eye Drops) 1 drop BID BOTH EYES Last administered on 01/14/19 09:09; Admin Dose 1 DROP; Start 01/13/19 at 11:30 Nicotine (Nicoderm 21 Mg/ 24hr) 1 patch DAILY TRANSDERM Last administered on 01/14/19 09:09; Admin Dose 1 PATCH; Start 01/14/19 at 09:00 Famotidine (Pepcid) 20 mg Q12 PO Last administered on 01/14/19 09:11; Admin Dose 20 MG; Start 01/13/19 at 21:00 Hydromorphone HCl (Dilaudid) 1.5 mg Q4H PRN IV .PAIN 7-10 Last administered on 01/14/19 12:52; Admin Dose 1.5 MG; Start 01/13/19 at 22:00 MELISSA NASH NP Jan 14, 2019 15:19
--- NOTE | 2019-01-14 19:14 | CONS ---
Assessment/Plan Assessment/Plan Assessment/Plan (Daily) 63 yo male Interval hx: Pain improved with increase of dilaudid to 1mg. Denies nausea. Denies melena or hematochezia. EAting well. continues to refuse colonoscopy 1. Microcytic hypochromic anemia, most probably related to iron deficiency. -anemia work up from previous visit last week noted. NEG FOB -EGD done April 2018 showed duodenal ulcer and gastritis -hgb stable 2. 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 -US on 01/07 did not ascites 3. Nicotine dependence 4. Congestive heart failure. -EF of 60% 5. Chronic obstructive pulmonary disease. 6. Renal failure. PLAN: Pain management Pt needs EGD and colonoscopy, particularly colonoscopy. Spoke with patient again who continues to refuse procedures. Continue pepcid, lasix and aldactone We will proceed with a colonoscopy if patient agrees Consultation Date/Type/Reason Admit Date/Time Jan 11, 2019 at 09:53 Initial Consult Date 01/12/19 Requesting Provider: WERNER KING Date/Time of Note DATE: 01/14/19 TIME: 19:13 24 HR Interval Summary Constitutional: improved Exam/Review of Systems Exam Vitals Vital Signs Date Temp Pulse Resp B/P (MAP) Pulse Ox O2 O2 Flow FiO2 Time Delivery Rate 01/14/19 97.7 75 16 145/67 98 Room Air 15:08 (93) 01/14/19 2.0 05:37 01/13/19 21 21:15 Intake and Output 01/13/19 01/13/19 01/14/19 1515:00 23:00 07:00 IntakeIntake Total 860 ml 800 ml OutputOutput Total 900 ml 950 ml BalanceBalance -40 ml -150 ml Constitutional: alert, oriented, well developed Psych: no complaints, nl mood/affect Head: normocephalic, atraumatic Eyes: nl conjunctiva, EOMI, nl lids, nl sclera, PERRL ENMT: nl external ears & nose, nl lips & teeth, nl nasal mucosa & septum Neck: supple, non-tender Respiratory: clear to auscultation, normal air movement Cardiovascular: regular rate and rhythm, nl pulses Gastrointestinal: soft, nl liver, spleen, non-tender Musculoskeletal: nl extremities to inspection, nl gait and stance Extremities: normal pulses 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, nl mental status, nl speech, nl strength Skin: nl turgor; No rash or lesions Lymph: nl lymph nodes Results Result Diagram: 01/14/19 0633 01/14/19 0633 Results 24hrs Laboratory Tests Test 01/14/19 06:33 White Blood Count 13.7 #H Red Blood Count 4.25 L Hemoglobin 9.0 L Hematocrit 32.9 L Mean Corpuscular Volume 77.4 L Mean Corpuscular Hemoglobin 21.2 L Mean Corpuscular Hemoglobin Concent 27.4 L Red Cell Distribution Width 23.3 H Platelet Count 124 L Mean Platelet Volume Immature Granulocytes % 4.500 H Neutrophils % 58.3 Lymphocytes % 7.4 L Monocytes % 24.1 H Eosinophils % 4.5 Basophils % 1.2 Nucleated Red Blood Cells % 0.0 Immature Granulocytes # 0.610 H Neutrophils # 8.0 H Lymphocytes # 1.0 Monocytes # 3.3 H Eosinophils # 0.6 H Basophils # 0.2 H Nucleated Red Blood Cells # 0.0 Sodium Level 140 Potassium Level 4.8 Chloride Level 107 Carbon Dioxide Level 23 Anion Gap 10 Blood Urea Nitrogen 39 H Creatinine 1.45 H Est Glomerular Filtrat Rate mL/min 49 L Glucose Level 92 Calcium Level 9.0 Medications Medication Current Medications IV Flush (NS 3 ml) 3 ml PER PROTOCOL IV ; Start 01/11/19 at 13:00 Ondansetron HCl (Zofran Inj) 4 mg Q6H PRN IV NAUSEA/VOMITING; Start 01/11/19 at 13:00 Acetaminophen (Tylenol Tab) 650 mg Q6H PRN PO .PAIN 1-3 OR TEMP; Start 01/11/19 at 13:00 Albuterol (Proventil 0.083% (Neb)) 2.5 mg Q6 PRN HHN shortness of breath; Start 01/11/19 at 13:00 Spironolactone (Aldactone) 50 mg DAILY PO Last administered on 01/14/19at 09:11; Admin Dose 50 MG; Start 01/12/19 at 09:00 Furosemide (Lasix) 20 mg DAILY IV Last administered on 01/14/19at 09:12; Admin Dose 20 MG; Start 01/12/19 at 09:00 Metoprolol Succinate (Toprol Xl) 50 mg DAILY PO Last administered on 01/14/19at 09:12; Admin Dose 50 MG; Start 01/12/19 at 09:00 Lorazepam (Ativan) 0.5 mg Q6H PRN IV ANXIETY Last administered on 01/14/19 13:07; Admin Dose 0.5 MG; Start 01/11/19 at 23:00 Clonidine (Catapres) 0.1 mg Q6H PRN PO systolic BP > 160 Last administered on 01/12/19 21:31; Admin Dose 0.1 MG; Start 01/12/19 at 21:00 Levothyroxine Sodium (Synthroid) 225 mcg DAILY@06 PO Last administered on 01/14/19 06:23; Admin Dose 225 MCG; Start 01/13/19 at 06:00 Allopurinol (Zyloprim) 100 mg DAILY PO Last administered on 01/14/19 09:11; Admin Dose 100 MG; Start 01/13/19 at 09:00 Ascorbic Acid (Vitamin C) 500 mg DAILY PO Last administered on 01/14/19 09:10; Admin Dose 500 MG; Start 01/13/19 at 09:00 Docusate Sodium (Colace) 200 mg QHS PO Last administered on 01/13/19 20:11; Admin Dose 200 MG; Start 01/13/19 at 21:00 Epoetin Ghulam-epbx (RETACRIT(non-esrd)) 10,000 unit Q48H SC Last administered on 01/13/19 17:01; Admin Dose 10,000 UNIT; Start 01/13/19 at 18:00 Ferrous Sulfate (Ferrous Sulfate (Ec)) 325 mg DAILY PO Last administered on 01/14/19 09:11; Admin Dose 325 MG; Start 01/13/19 at 09:00 Folic Acid (Folic Acid) 1 mg DAILY PO Last administered on 01/14/19 09:11; Admin Dose 1 MG; Start 01/13/19 at 09:00 Gabapentin (Neurontin) 100 mg TID PO Last administered on 01/14/19 12:51; Admin Dose 100 MG; Start 01/13/19 at 09:00 Acetaminophen/ Hydrocodone Bitart ([place] (5/325)) 1 tab Q6H PRN PO PAIN Last administered on 01/14/19 15:12; Admin Dose 1 TAB; Start 01/13/19 at 06:30 Lactulose (Enulose) 20 gm BID PO ; Start 01/13/19 at 09:00 Lorazepam (Ativan) 1 mg BID PRN PO ANXIETY; Start 01/13/19 at 06:30 Rifaximin (Xifaxan) 550 mg BID PO Last administered on 01/14/19 09:10; Admin Dose 550 MG; Start 01/13/19 at 09:00 Sodium Bicarbonate (Sodium Bicarbonate Tab) 325 mg TID PO Last administered on 01/14/19 12:51; Admin Dose 325 MG; Start 01/13/19 at 09:00 Tamsulosin HCl (Flomax) 0.4 mg HS PO Last administered on 01/13/19 20:11; Admin Dose 0.4 MG; Start 01/13/19 at 21:00 Thiamine HCl (Vitamin B1) 100 mg DAILY PO Last administered on 01/14/19 09:10; Admin Dose 100 MG; Start 01/13/19 at 09:00 Arformoterol Tartrate (Brovana (Neb)) 2 ml BID RESP THERAPY INH Last administered on 01/13/19 21:14; Admin Dose 2 ML; Start 01/13/19 at 09:00 Budesonide (Pulmicort (Neb)) 0.5 mg Q12H RESP THERAPY INH Last administered on 01/13/19 21:15; Admin Dose 0.5 MG; Start 01/13/19 at 09:00 Dorzolamide/ Timolol (Cosopt Pf Eye Drops) 1 drop BID BOTH EYES Last administered on 01/14/19 09:09; Admin Dose 1 DROP; Start 01/13/19 at 11:30 Nicotine (Nicoderm 21 Mg/ 24hr) 1 patch DAILY TRANSDERM Last administered on 01/14/19 09:09; Admin Dose 1 PATCH; Start 01/14/19 at 09:00 Famotidine (Pepcid) 20 mg Q12 PO Last administered on 01/14/19 09:11; Admin Dose 20 MG; Start 01/13/19 at 21:00 Hydromorphone HCl (Dilaudid) 1.5 mg Q4H PRN IV .PAIN 7-10 Last administered on 01/14/19 18:36; Admin Dose 1.5 MG; Start 01/13/19 at 22:00 CHLOÉ TORRE MD Jan 14, 2019 19:13
--- NOTE | 2019-01-14 19:28 | CONS ---
Assessment/Plan Assessment/Plan Hospital Course (Demo Recall) IMPRESSION: 1. Congestive heart failure exacerbation, diastolic, acute on chronic. 2. Hypertension-mildly elavated 3. Shortness of breath secondary to congestive heart failure exacerbation, d iastolic, acute on chronic. 4. Chronic renal failure. 5. Cirrhosis. 6. Ascites, recurrent. 7. Hypothyroidism. 8. History of ETOH abuse. 9. Anemia. REcc: -Tele -serial ecg's -Contineu lasix/aldactone and follow volume status closely and ascites -Continue toprol -add CCB to improve BP control -Continue lactulose -pain control Consultation Date/Type/Reason Admit Date/Time Jan 11, 2019 at 09:53 Initial Consult Date 01/12/19 Type of Consult Cardiology Reason for Consultation CHF Requesting Provider: WERNER KING Date/Time of Note DATE: 01/14/19 TIME: 19:25 Exam/Review of Systems Vital Signs Vitals Vital Signs Date Temp Pulse Resp B/P (MAP) Pulse Ox O2 O2 Flow FiO2 Time Delivery Rate 01/14/19 97.7 75 16 145/67 98 Room Air 15:08 (93) 01/14/19 2.0 05:37 01/13/19 21 21:15 Intake and Output 01/13/19 01/13/19 01/14/19 1515:00 23:00 07:00 IntakeIntake Total 860 ml 800 ml OutputOutput Total 900 ml 950 ml BalanceBalance -40 ml -150 ml Exam Exam Review of Systems: CONSTITUTIONAL: No fevers, chills. PULMONARY: No sob CARDIOVASCULAR: No chest pain/palpitations GASTROINTESTINAL: c/o abd pain GENITOURINARY: No hematuria/dysuria. MUSCULOSKELETAL: No myagias/arthalgias. PSYCHIATRIC: The patient denies depression. NEUROLOGIC: No weakness Constitutional: alert, oriented Psych: no complaints Head: normocephalic ENMT: mucosa pink and moist Neck: supple, jvd (9 cm water) Respiratory: diminished breath sounds (at bases/B) Cardiovascular: regular rate and rhythm Gastrointestinal: soft, non-tender Musculoskeletal: muscle weakness (generalizxed) Extremities: edema (bilateral LE with chronic venbous stasis changes) Neurological: other (No focal deficits) Labs Result Diagram: 01/14/1933 01/14/19 0633 Results 24hrs Laboratory Tests Test 01/14/19 06:33 White Blood Count 13.7 #H Red Blood Count 4.25 L Hemoglobin 9.0 L Hematocrit 32.9 L Mean Corpuscular Volume 77.4 L Mean Corpuscular Hemoglobin 21.2 L Mean Corpuscular Hemoglobin Concent 27.4 L Red Cell Distribution Width 23.3 H Platelet Count 124 L Mean Platelet Volume Immature Granulocytes % 4.500 H Neutrophils % 58.3 Lymphocytes % 7.4 L Monocytes % 24.1 H Eosinophils % 4.5 Basophils % 1.2 Nucleated Red Blood Cells % 0.0 Immature Granulocytes # 0.610 H Neutrophils # 8.0 H Lymphocytes # 1.0 Monocytes # 3.3 H Eosinophils # 0.6 H Basophils # 0.2 H Nucleated Red Blood Cells # 0.0 Sodium Level 140 Potassium Level 4.8 Chloride Level 107 Carbon Dioxide Level 23 Anion Gap 10 Blood Urea Nitrogen 39 H Creatinine 1.45 H Est Glomerular Filtrat Rate mL/min 49 L Glucose Level 92 Calcium Level 9.0 Medications Medications Current Medications IV Flush (NS 3 ml) 3 ml PER PROTOCOL IV ; Start 01/11/19 at 13:00 Ondansetron HCl (Zofran Inj) 4 mg Q6H PRN IV NAUSEA/VOMITING; Start 01/11/19 at 13:00 Acetaminophen (Tylenol Tab) 650 mg Q6H PRN PO .PAIN 1-3 OR TEMP; Start 01/11/19 at 13:00 Albuterol (Proventil 0.083% (Neb)) 2.5 mg Q6 PRN HHN shortness of breath; Start 01/11/19 at 13:00 Spironolactone (Aldactone) 50 mg DAILY PO Last administered on 01/14/19at 09:11; Admin Dose 50 MG; Start 01/12/19 at 09:00 Furosemide (Lasix) 20 mg DAILY IV Last administered on 01/14/19 09:12; Admin Dose 20 MG; Start 01/12/19 at 09:00 Metoprolol Succinate (Toprol Xl) 50 mg DAILY PO Last administered on 01/14/19at 09:12; Admin Dose 50 MG; Start 01/12/19 at 09:00 Lorazepam (Ativan) 0.5 mg Q6H PRN IV ANXIETY Last administered on 01/14/19at 13:07; Admin Dose 0.5 MG; Start 01/11/19 at 23:00 Clonidine (Catapres) 0.1 mg Q6H PRN PO systolic BP > 160 Last administered on 01/12/19 21:31; Admin Dose 0.1 MG; Start 01/12/19 at 21:00 Levothyroxine Sodium (Synthroid) 225 mcg DAILY@06 PO Last administered on 01/14/19 06:23; Admin Dose 225 MCG; Start 01/13/19 at 06:00 Allopurinol (Zyloprim) 100 mg DAILY PO Last administered on 01/14/19 09:11; Admin Dose 100 MG; Start 01/13/19 at 09:00 Ascorbic Acid (Vitamin C) 500 mg DAILY PO Last administered on 01/14/19 09:10; Admin Dose 500 MG; Start 01/13/19 at 09:00 Docusate Sodium (Colace) 200 mg QHS PO Last administered on 01/13/19 20:11; Admin Dose 200 MG; Start 01/13/19 at 21:00 Epoetin Ghulam-epbx (RETACRIT(non-esrd)) 10,000 unit Q48H SC Last administered on 01/13/19 17:01; Admin Dose 10,000 UNIT; Start 01/13/19 at 18:00 Ferrous Sulfate (Ferrous Sulfate (Ec)) 325 mg DAILY PO Last administered on 01/14/19 09:11; Admin Dose 325 MG; Start 01/13/19 at 09:00 Folic Acid (Folic Acid) 1 mg DAILY PO Last administered on 01/14/19 09:11; Admin Dose 1 MG; Start 01/13/19 at 09:00 Gabapentin (Neurontin) 100 mg TID PO Last administered on 01/14/19 12:51; Admin Dose 100 MG; Start 01/13/19 at 09:00 Acetaminophen/ Hydrocodone Bitart ([place] (5/325)) 1 tab Q6H PRN PO PAIN Last administered on 01/14/19 15:12; Admin Dose 1 TAB; Start 01/13/19 at 06:30 Lactulose (Enulose) 20 gm BID PO ; Start 01/13/19 at 09:00 Lorazepam (Ativan) 1 mg BID PRN PO ANXIETY; Start 01/13/19 at 06:30 Rifaximin (Xifaxan) 550 mg BID PO Last administered on 01/14/19 09:10; Admin Dose 550 MG; Start 01/13/19 at 09:00 Sodium Bicarbonate (Sodium Bicarbonate Tab) 325 mg TID PO Last administered on 01/14/19 12:51; Admin Dose 325 MG; Start 01/13/19 at 09:00 Tamsulosin HCl (Flomax) 0.4 mg HS PO Last administered on 01/13/19 20:11; Admin Dose 0.4 MG; Start 01/13/19 at 21:00 Thiamine HCl (Vitamin B1) 100 mg DAILY PO Last administered on 01/14/19 09:10; Admin Dose 100 MG; Start 01/13/19 at 09:00 Arformoterol Tartrate (Brovana (Neb)) 2 ml BID RESP THERAPY INH Last administe red on 01/13/19 21:14; Admin Dose 2 ML; Start 01/13/19 at 09:00 Budesonide (Pulmicort (Neb)) 0.5 mg Q12H RESP THERAPY INH Last administered on 01/13/19 21:15; Admin Dose 0.5 MG; Start 01/13/19 at 09:00 Dorzolamide/ Timolol (Cosopt Pf Eye Drops) 1 drop BID BOTH EYES Last administered on 01/14/19 09:09; Admin Dose 1 DROP; Start 01/13/19 at 11:30 Nicotine (Nicoderm 21 Mg/ 24hr) 1 patch DAILY TRANSDERM Last administered on 01/14/19 09:09; Admin Dose 1 PATCH; Start 01/14/19 at 09:00 Famotidine (Pepcid) 20 mg Q12 PO Last administered on 01/14/19 09:11; Admin Dose 20 MG; Start 01/13/19 at 21:00 Hydromorphone HCl (Dilaudid) 1.5 mg Q4H PRN IV .PAIN 7-10 Last administered on 01/14/19 18:36; Admin Dose 1.5 MG; Start 01/13/19 at 22:00 DUSTY CANTU Jan 14, 2019 19:28
[2019-01-14 20:00] VITALS: BP 152/75; PULSE 72; RESP 17
[2019-01-14] MEDS: TAMSULOSIN (SR) 0.4 MG CAP PO SCH (20:37)
[2019-01-14] MEDS: DOCUSATE SODIUM 100 MG CAP PO SCH (20:37)
[2019-01-15] VITALS: BP 149/72; PULSE 75; RESP 18
[2019-01-15] MEDS: HYDROmorphONE 2 MG/ML SYG IV PRN (00:41)
[2019-01-15] MEDS: LEVOTHYROXINE 75 MCG TAB PO SCH (05:33)
[2019-01-15] MEDS: HYDROmorphONE 1 MG/ML SYG IV PRN ×5 (05:34→22:06)
[2019-01-15 07:30] VITALS: BP 149/67; PULSE 86; RESP 18
[2019-01-15] MEDS: HYDROCODONE/APAP (5/325) TAB PO PRN ×2 (07:50→21:00)
[2019-01-15] MEDS: BUDESONIDE (NEB) 0.5MG/2ML AMP INH SCH ×2 (08:00→20:20)
[2019-01-15] MEDS: ARFORMOTEROL TARTRATE 15MCG/2 ML AMP INH SCH ×2 (08:53→20:20)
[2019-01-15] MEDS: LACTULOSE 30ML CUP PO SCH ×2 (09:00→21:00)
[2019-01-15] MEDS: FERROUS SULFATE (EC) 325 MG TAB PO SCH (09:02)
[2019-01-15] MEDS: SPIRONOLACTONE 50 MG TAB PO SCH (09:02)
[2019-01-15] MEDS: NA BICARBONATE 650 MG TAB PO SCH ×3 (09:02→21:01)
[2019-01-15] MEDS: RIFAXIMIN 550 MG TAB PO SCH ×2 (09:02→21:00)
[2019-01-15] MEDS: THIAMINE 100 MG TAB PO SCH (09:02)
[2019-01-15] MEDS: AMLODIPINE 5 MG TAB PO SCH (09:02)
[2019-01-15] MEDS: DORZOLAMIDE/TIMOLOL/PF 0.2 ML DROPERETTE BOTH EYES SCH ×2 (09:02→21:01)
[2019-01-15] MEDS: FAMOTIDINE 20 MG TAB PO SCH ×2 (09:02→21:01)
[2019-01-15] MEDS: ASCORBIC ACID 500 MG TAB PO SCH (09:02)
[2019-01-15] MEDS: FOLIC ACID 1 MG TAB PO SCH (09:02)
[2019-01-15] MEDS: NICOTINE (21 MG/24 HR) PATCH TRANSDERM SCH (09:03)
[2019-01-15] MEDS: METOPROLOL (XL) 50 MG TAB PO SCH (09:03)
[2019-01-15] MEDS: ALLOPURINOL 100 MG TAB PO SCH (09:03)
[2019-01-15] MEDS: GABAPENTIN 100 MG CAP PO SCH ×3 (09:03→21:01)
[2019-01-15] MEDS: FUROSEMIDE 20 MG INJ IV SCH (09:04)
--- NOTE | 2019-01-15 12:50 | CONS ---
Assessment/Plan Assessment/Plan Hospital Course (Demo Recall) No acute changes looks comfortable Antimicrobials: none Physical examination: This is a wasted well-developed chronically ill-appearing elderly man who is in no distress. Head atraumatic normocephalic sclera nonicteric. Neck is supple chest rise symmetrical breath sounds diminished bases. Heart: S1-S2. Abdomen soft bowel sounds present. Extremities without BLE edema, mild erythema, no cyanosis. Assessment: 1. Systemic inflammatory response syndrome 2. S/p COPD exacerbation 3. Alcohol abuse 4. Bilateral lower extremities chronic venous stasis 5. Cirrhosis with recurrent ascites 6. Chronic kidney disease 7. CHF 8. Noncompliance Plan: Clinically unchanged, stable, start Doxycycline, consider abdominal US to evaluate for recurrent ascites Consultation Date/Type/Reason Admit Date/Time Jan 11, 2019 at 09:53 Initial Consult Date Type of Consult id Requesting Provider: WERNER KING Date/Time of Note DATE: 01/15/19 TIME: 12:48 Exam/Review of Systems Exam Vitals Vital Signs Date Temp Pulse Resp B/P (MAP) Pulse Ox O2 O2 Flow FiO2 Time Delivery Rate 01/15/19 98.3 86 18 149/67 97 Room Air 07:30 (94) 01/14/19 21 19:54 01/14/19 2.0 05:37 Intake and Output 01/14/19 01/14/19 01/15/19 1515:00 23:00 07:00 IntakeIntake Total 1500 ml 1200 ml OutputOutput Total 925 ml 800 ml BalanceBalance 575 ml 400 ml Results Result Diagram: 01/15/19 0915 01/15/19 0915 Results 24hrs Laboratory Tests Test 01/15/19 09:15 White Blood Count 13.9 H Red Blood Count 4.18 L Hemoglobin 9.1 L Hematocrit 32.9 L Mean Corpuscular Volume 78.7 L Mean Corpuscular Hemoglobin 21.8 L Mean Corpuscular Hemoglobin Concent 27.7 L Red Cell Distribution Width 23.1 H Platelet Count 160 # Mean Platelet Volume Immature Granulocytes % 5.200 H Neutrophils % Segmented Neutrophils % (Manual) 65 Lymphocytes % Lymphocytes % (Manual) 6 L Reactive Lymphocytes % (Manual) 1 H Monocytes % Monocytes % (Manual) 16 H Eosinophils % Eosinophils % (Manual) 8 H Basophils % Basophils % (Manual) 3 H Metamyelocytes % (manual) 1 H Nucleated Red Blood Cells % 0.0 Immature Granulocytes # 0.720 H Neutrophils # Lymphocytes (Manual) 0.8 Lymphocytes # Reactive Lymphocytes # 0.1 H Monocytes # Monocytes # (Manual) 2.2 H Eosinophils # Basophils # Basophils # (Manual) 0.4 H Metamyelocytes # 0.1 H Nucleated Red Blood Cells # Platelet Estimate NORMAL Polychromasia 3+ Hypochromasia 2+ Poikilocytosis 1+ Anisocytosis 2+ Microcytosis 1+ Target Cells 1+ Sodium Level 139 Potassium Level 4.5 Chloride Level 108 Carbon Dioxide Level 21 Anion Gap 10 Blood Urea Nitrogen 46 H Creatinine 1.54 H Est Glomerular Filtrat Rate mL/min 46 L Glucose Level 141 # Calcium Level 9.1 Medications Medication Current Medications IV Flush (NS 3 ml) 3 ml PER PROTOCOL IV ; Start 01/11/19 at 13:00 Ondansetron HCl (Zofran Inj) 4 mg Q6H PRN IV NAUSEA/VOMITING; Start 01/11/19 at 13:00 Acetaminophen (Tylenol Tab) 650 mg Q6H PRN PO .PAIN 1-3 OR TEMP; Start 01/11/19 at 13:00 Albuterol (Proventil 0.083% (Neb)) 2.5 mg Q6 PRN HHN shortness of breath; Start 01/11/19 at 13:00 Spironolactone (Aldactone) 50 mg DAILY PO Last administered on 01/15/19at 09:02; Admin Dose 50 MG; Start 01/12/19 at 09:00 Furosemide (Lasix) 20 mg DAILY IV Last administered on 01/15/19 09:04; Admin Dose 20 MG; Start 01/12/19 at 09:00 Metoprolol Succinate (Toprol Xl) 50 mg DAILY PO Last administered on 01/15/19 09:03; Admin Dose 50 MG; Start 01/12/19 at 09:00 Lorazepam (Ativan) 0.5 mg Q6H PRN IV ANXIETY Last administered on 01/14/19 13:07; Admin Dose 0.5 MG; Start 01/11/19 at 23:00 Clonidine (Catapres) 0.1 mg Q6H PRN PO systolic BP > 160 Last administered on 01/12/19at 21:31; Admin Dose 0.1 MG; Start 01/12/19 at 21:00 Levothyroxine Sodium (Synthroid) 225 mcg DAILY@06 PO Last administered on 01/15/19 05:33; Admin Dose 225 MCG; Start 01/13/19 at 06:00 Allopurinol (Zyloprim) 100 mg DAILY PO Last administered on 01/15/19 09:03; Admin Dose 100 MG; Start 01/13/19 at 09:00 Ascorbic Acid (Vitamin C) 500 mg DAILY PO Last administered on 01/15/19 09:02; Admin Dose 500 MG; Start 01/13/19 at 09:00 Docusate Sodium (Colace) 200 mg QHS PO Last administered on 01/14/19 20:37; Admin Dose 200 MG; Start 01/13/19 at 21:00 Epoetin Ghulam-epbx (RETACRIT(non-esrd)) 10,000 unit Q48H SC Last administered on 01/13/19 17:01; Admin Dose 10,000 UNIT; Start 01/13/19 at 18:00 Ferrous Sulfate (Ferrous Sulfate (Ec)) 325 mg DAILY PO Last administered on 01/15/19 09:02; Admin Dose 325 MG; Start 01/13/19 at 09:00 Folic Acid (Folic Acid) 1 mg DAILY PO Last administered on 01/15/19 09:02; Admin Dose 1 MG; Start 01/13/19 at 09:00 Gabapentin (Neurontin) 100 mg TID PO Last administered on 01/15/19 09:03; Admin Dose 100 MG; Start 01/13/19 at 09:00 Acetaminophen/ Hydrocodone Bitart ([place] (5/325)) 1 tab Q6H PRN PO PAIN Last administered on 01/15/19 07:50; Admin Dose 1 TAB; Start 01/13/19 at 06:30 Lactulose (Enulose) 20 gm BID PO Last administered on 01/14/19 20:37; Admin Dose 20 GM; Start 01/13/19 at 09:00 Lorazepam (Ativan) 1 mg BID PRN PO ANXIETY Last administered on 01/14/19 20:36; Admin Dose 1 MG; Start 01/13/19 at 06:30 Rifaximin (Xifaxan) 550 mg BID PO Last administered on 01/15/19 09:02; Admin Dose 550 MG; Start 01/13/19 at 09:00 Sodium Bicarbonate (Sodium Bicarbonate Tab) 325 mg TID PO Last administered on 01/15/19 09:02; Admin Dose 325 MG; Start 01/13/19 at 09:00 Tamsulosin HCl (Flomax) 0.4 mg HS PO Last administered on 01/14/19 20:37; Admin Dose 0.4 MG; Start 01/13/19 at 21:00 Thiamine HCl (Vitamin B1) 100 mg DAILY PO Last administered on 01/15/19 09:02; Admin Dose 100 MG; Start 01/13/19 at 09:00 Arformoterol Tartrate (Brovana (Neb)) 2 ml BID RESP THERAPY INH Last administered on 01/14/19 19:53; Admin Dose 2 ML; Start 01/13/19 at 09:00 Budesonide (Pulmicort (Neb)) 0.5 mg Q12H RESP THERAPY INH Last administered on 01/14/19 19:54; Admin Dose 0.5 MG; Start 01/13/19 at 09:00 Dorzolamide/ Timolol (Cosopt Pf Eye Drops) 1 drop BID BOTH EYES Last administered on 01/15/19 09:02; Admin Dose 1 DROP; Start 01/13/19 at 11:30 Nicotine (Nicoderm 21 Mg/ 24hr) 1 patch DAILY TRANSDERM Last administered on 01/15/19 09:03; Admin Dose 1 PATCH; Start 01/14/19 at 09:00 Famotidine (Pepcid) 20 mg Q12 PO Last administered on 01/15/19 09:02; Admin Dose 20 MG; Start 01/13/19 at 21:00 Amlodipine Besylate (Norvasc) 5 mg DAILY PO Last administered on 01/15/19 09:02; Admin Dose 5 MG; Start 01/15/19 at 09:00 Hydromorphone HCl (Dilaudid) 1.5 mg Q4H PRN IV SEVERE PAIN LEVEL 7-10 Last administered on 01/15/19 09:40; Admin Dose 1.5 MG; Start 01/15/19 at 05:30 MELISSA NASH NP Jan 15, 2019 12:50
[2019-01-15] MEDS ORDERED: DOXYCYCLINE 100 MG TAB PO SCH (13:00)
--- NOTE | 2019-01-15 14:08 | CONS ---
Assessment/Plan Assessment/Plan Hospital Course (Demo Recall) IMPRESSION: 1. Congestive heart failure exacerbation, diastolic, acute on chronic. 2. Hypertension-mildly elavated 3. Shortness of breath secondary to congestive heart failure exacerbation, d iastolic, acute on chronic. 4. Chronic renal failure. 5. Cirrhosis. 6. Ascites, recurrent. 7. Hypothyroidism. 8. History of ETOH abuse. 9. Anemia. REcc: -Tele -serial ecg's -Contineu lasix/aldactone and follow volume status closely and ascites -Continue toprol and now CCB -Continue lactulose -pain control Consultation Date/Type/Reason Admit Date/Time Jan 11, 2019 at 09:53 Initial Consult Date 01/12/19 Type of Consult Cardiology Reason for Consultation CHF Requesting Provider: WERNER KING Date/Time of Note DATE: 01/15/19 TIME: 14:06 Exam/Review of Systems Vital Signs Vitals Vital Signs Date Temp Pulse Resp B/P (MAP) Pulse Ox O2 O2 Flow FiO2 Time Delivery Rate 01/15/19 98.3 86 18 149/67 97 Room Air 07:30 (94) 01/14/19 21 19:54 01/14/19 2.0 05:37 Intake and Output 01/14/19 01/14/19 01/15/19 1515:00 23:00 07:00 IntakeIntake Total 1500 ml 1200 ml OutputOutput Total 925 ml 800 ml BalanceBalance 575 ml 400 ml Exam Exam Review of Systems: CONSTITUTIONAL: No fevers, chills. PULMONARY: No sob CARDIOVASCULAR: No chest pain/palpitations GASTROINTESTINAL: No nausea/vomiting. GENITOURINARY: No hematuria/dysuria. MUSCULOSKELETAL: No myagias/arthalgias. PSYCHIATRIC: The patient denies depression. NEUROLOGIC: No weakness Constitutional: alert Psych: no complaints Head: normocephalic ENMT: mucosa pink and moist Neck: supple, jvd (9 cm water) Respiratory: diminished breath sounds Cardiovascular: regular rate and rhythm Gastrointestinal: soft, non-tender Musculoskeletal: muscle tone (normal) Extremities: pitting pedal edema Labs Result Diagram: 01/15/1915 01/15/19 0915 Results 24hrs Laboratory Tests Test 01/15/19 09:15 White Blood Count 13.9 H Red Blood Count 4.18 L Hemoglobin 9.1 L Hematocrit 32.9 L Mean Corpuscular Volume 78.7 L Mean Corpuscular Hemoglobin 21.8 L Mean Corpuscular Hemoglobin Concent 27.7 L Red Cell Distribution Width 23.1 H Platelet Count 160 # Mean Platelet Volume Immature Granulocytes % 5.200 H Neutrophils % Segmented Neutrophils % (Manual) 65 Lymphocytes % Lymphocytes % (Manual) 6 L Reactive Lymphocytes % (Manual) 1 H Monocytes % Monocytes % (Manual) 16 H Eosinophils % Eosinophils % (Manual) 8 H Basophils % Basophils % (Manual) 3 H Metamyelocytes % (manual) 1 H Nucleated Red Blood Cells % 0.0 Immature Granulocytes # 0.720 H Neutrophils # Lymphocytes (Manual) 0.8 Lymphocytes # Reactive Lymphocytes # 0.1 H Monocytes # Monocytes # (Manual) 2.2 H Eosinophils # Basophils # Basophils # (Manual) 0.4 H Metamyelocytes # 0.1 H Nucleated Red Blood Cells # Platelet Estimate NORMAL Polychromasia 3+ Hypochromasia 2+ Poikilocytosis 1+ Anisocytosis 2+ Microcytosis 1+ Target Cells 1+ Sodium Level 139 Potassium Level 4.5 Chloride Level 108 Carbon Dioxide Level 21 Anion Gap 10 Blood Urea Nitrogen 46 H Creatinine 1.54 H Est Glomerular Filtrat Rate mL/min 46 L Glucose Level 141 # Calcium Level 9.1 Medications Medications Current Medications IV Flush (NS 3 ml) 3 ml PER PROTOCOL IV ; Start 01/11/19 at 13:00 Ondansetron HCl (Zofran Inj) 4 mg Q6H PRN IV NAUSEA/VOMITING; Start 01/11/19 at 13:00 Acetaminophen (Tylenol Tab) 650 mg Q6H PRN PO .PAIN 1-3 OR TEMP; Start 01/11/19 at 13:00 Albuterol (Proventil 0.083% (Neb)) 2.5 mg Q6 PRN HHN shortness of breath; Start 01/11/19 at 13:00 Spironolactone (Aldactone) 50 mg DAILY PO Last administered on 01/15/19at 09:02; Admin Dose 50 MG; Start 01/12/19 at 09:00 Furosemide (Lasix) 20 mg DAILY IV Last administered on 01/15/19at 09:04; Admin Dose 20 MG; Start 01/12/19 at 09:00 Metoprolol Succinate (Toprol Xl) 50 mg DAILY PO Last administered on 01/15/19 09:03; Admin Dose 50 MG; Start 01/12/19 at 09:00 Lorazepam (Ativan) 0.5 mg Q6H PRN IV ANXIETY Last administered on 01/14/19 13:07; Admin Dose 0.5 MG; Start 01/11/19 at 23:00 Clonidine (Catapres) 0.1 mg Q6H PRN PO systolic BP > 160 Last administered on 01/12/19 21:31; Admin Dose 0.1 MG; Start 01/12/19 at 21:00 Levothyroxine Sodium (Synthroid) 225 mcg DAILY@06 PO Last administered on 01/15/19 05:33; Admin Dose 225 MCG; Start 01/13/19 at 06:00 Allopurinol (Zyloprim) 100 mg DAILY PO Last administered on 01/15/19 09:03; Admin Dose 100 MG; Start 01/13/19 at 09:00 Ascorbic Acid (Vitamin C) 500 mg DAILY PO Last administered on 01/15/19 09:02; Admin Dose 500 MG; Start 01/13/19 at 09:00 Docusate Sodium (Colace) 200 mg QHS PO Last administered on 01/14/19 20:37; Admin Dose 200 MG; Start 01/13/19 at 21:00 Epoetin Ghulam-epbx (RETACRIT(non-esrd)) 10,000 unit Q48H SC Last administered on 01/13/19 17:01; Admin Dose 10,000 UNIT; Start 01/13/19 at 18:00 Ferrous Sulfate (Ferrous Sulfate (Ec)) 325 mg DAILY PO Last administered on 01/15/19 09:02; Admin Dose 325 MG; Start 01/13/19 at 09:00 Folic Acid (Folic Acid) 1 mg DAILY PO Last administered on 01/15/19 09:02; Admin Dose 1 MG; Start 01/13/19 at 09:00 Gabapentin (Neurontin) 100 mg TID PO Last administered on 01/15/19 13:44; Admin Dose 100 MG; Start 01/13/19 at 09:00 Acetaminophen/ Hydrocodone Bitart ([place] (5/325)) 1 tab Q6H PRN PO PAIN Last administered on 01/15/19 07:50; Admin Dose 1 TAB; Start 01/13/19 at 06:30 Lactulose (Enulose) 20 gm BID PO Last administered on 01/14/19 20:37; Admin Dose 20 GM; Start 01/13/19 at 09:00 Lorazepam (Ativan) 1 mg BID PRN PO ANXIETY Last administered on 01/14/19 20:36; Admin Dose 1 MG; Start 01/13/19 at 06:30 Rifaximin (Xifaxan) 550 mg BID PO Last administered on 01/15/19 09:02; Admin Dose 550 MG; Start 01/13/19 at 09:00 Sodium Bicarbonate (Sodium Bicarbonate Tab) 325 mg TID PO Last administered on 01/15/19 13:44; Admin Dose 325 MG; Start 01/13/19 at 09:00 Tamsulosin HCl (Flomax) 0.4 mg HS PO Last administered on 01/14/19 20:37; Admin Dose 0.4 MG; Start 01/13/19 at 21:00 Thiamine HCl (Vitamin B1) 100 mg DAILY PO Last administered on 01/15/19 09:02; Admin Dose 100 MG; Start 01/13/19 at 09:00 Arformoterol Tartrate (Brovana (Neb)) 2 ml BID RESP THERAPY INH Last administered on 01/14/19 19:53; Admin Dose 2 ML; Start 01/13/19 at 09:00 Budesonide (Pulmicort (Neb)) 0.5 mg Q12H RESP THERAPY INH Last administered on 01/14/19 19:54; Admin Dose 0.5 MG; Start 01/13/19 at 09:00 Dorzolamide/ Timolol (Cosopt Pf Eye Drops) 1 drop BID BOTH EYES Last administered on 01/15/19 09:02; Admin Dose 1 DROP; Start 01/13/19 at 11:30 Nicotine (Nicoderm 21 Mg/ 24hr) 1 patch DAILY TRANSDERM Last administered on 01/15/19 09:03; Admin Dose 1 PATCH; Start 01/14/19 at 09:00 Famotidine (Pepcid) 20 mg Q12 PO Last administered on 01/15/19 09:02; Admin Dose 20 MG; Start 01/13/19 at 21:00 Amlodipine Besylate (Norvasc) 5 mg DAILY PO Last administered on 4/11/19at 09:02; Admin Dose 5 MG; Start 01/15/19 at 09:00 Hydromorphone HCl (Dilaudid) 1.5 mg Q4H PRN IV SEVERE PAIN LEVEL 7-10 Last administered on 01/15/19at 13:45; Admin Dose 1.5 MG; Start 01/15/19 at 05:30 Doxycycline Hyclate (Vibramycin) 100 mg 0800,2000 PO ; Start 01/15/19 at 20:00 DUSTY CANTU Jan 15, 2019 14:08
[2019-01-15 14:15] VITALS: BP 133/60; PULSE 72; RESP 18
--- NOTE | 2019-01-15 15:17 | CONS ---
Assessment/Plan Assessment/Plan Assessment/Plan (Daily) 1. acute on chronic renal failure due to Type II hepatorenal syndrome 2. SIRS 3. anemia of CKD 5. Decompensated Liver cirrhosis with Symptomatic ascites 6. H/O HTN 7. h/o Liver cirrhosis with ascites 8. H/o Diastolic CHF 9. Bilateral LE chronic venous stasis Plan: Continue IV abx as per ID , renally dose all abx , monitor electorlytes and replace as needed, BUN/Cr 46/1.54-Electrolyte stable today , change lasix to 20mg po daily, , spironolactone 50mg po daily , Toprol Xl 50mg po daily on Sodium bicarbonte 325mg PO TID will follow up Consultation Date/Type/Reason Admit Date/Time Jan 11, 2019 at 09:53 Initial Consult Date 01/11/19 Type of Consult Nephrology Requesting Provider: WERNER KING Date/Time of Note DATE: 01/15/19 TIME: 15:17 Exam/Review of Systems Exam Vitals Vital Signs Date Temp Pulse Resp B/P (MAP) Pulse Ox O2 O2 Flow FiO2 Time Delivery Rate 01/15/19 98.0 72 18 133/60 93 Room Air 14:15 (84) 01/14/19 21 19:54 01/14/19 2.0 05:37 Intake and Output 01/14/19 01/14/19 01/15/19 1515:00 23:00 07:00 IntakeIntake Total 1500 ml 1200 ml OutputOutput Total 925 ml 800 ml BalanceBalance 575 ml 400 ml Exam Constitutional: alert, awake, on acute distress Respiratory: clear to auscultation, no crackles no wheezing Cardiovascular: regular rate and rhythm, nl pulses Gastrointestinal: soft, non-tender, ascites, distended Musculoskeletal: joint tenderness, muscle weakness, swelling Extremities: chronic LE venous stasis 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, nl mental status, nl speech, nl strength Lymph: nl lymph nodes Results Result Diagram: 01/15/1991401/15/1915 Results 24hrs Laboratory Tests Test 01/15/19 09:15 White Blood Count 13.9 H Red Blood Count 4.18 L Hemoglobin 9.1 L Hematocrit 32.9 L Mean Corpuscular Volume 78.7 L Mean Corpuscular Hemoglobin 21.8 L Mean Corpuscular Hemoglobin Concent 27.7 L Red Cell Distribution Width 23.1 H Platelet Count 160 # Mean Platelet Volume Immature Granulocytes % 5.200 H Neutrophils % Segmented Neutrophils % (Manual) 65 Lymphocytes % Lymphocytes % (Manual) 6 L Reactive Lymphocytes % (Manual) 1 H Monocytes % Monocytes % (Manual) 16 H Eosinophils % Eosinophils % (Manual) 8 H Basophils % Basophils % (Manual) 3 H Metamyelocytes % (manual) 1 H Nucleated Red Blood Cells % 0.0 Immature Granulocytes # 0.720 H Neutrophils # Lymphocytes (Manual) 0.8 Lymphocytes # Reactive Lymphocytes # 0.1 H Monocytes # Monocytes # (Manual) 2.2 H Eosinophils # Basophils # Basophils # (Manual) 0.4 H Metamyelocytes # 0.1 H Nucleated Red Blood Cells # Platelet Estimate NORMAL Polychromasia 3+ Hypochromasia 2+ Poikilocytosis 1+ Anisocytosis 2+ Microcytosis 1+ Target Cells 1+ Sodium Level 139 Potassium Level 4.5 Chloride Level 108 Carbon Dioxide Level 21 Anion Gap 10 Blood Urea Nitrogen 46 H Creatinine 1.54 H Est Glomerular Filtrat Rate mL/min 46 L Glucose Level 141 # Calcium Level 9.1 Medications Medication Current Medications IV Flush (NS 3 ml) 3 ml PER PROTOCOL IV ; Start 01/11/19 at 13:00 Ondansetron HCl (Zofran Inj) 4 mg Q6H PRN IV NAUSEA/VOMITING; Start 01/11/19 at 13:00 Acetaminophen (Tylenol Tab) 650 mg Q6H PRN PO .PAIN 1-3 OR TEMP; Start 01/11/19 at 13:00 Albuterol (Proventil 0.083% (Neb)) 2.5 mg Q6 PRN HHN shortness of breath; Start 01/11/19 at 13:00 Spironolactone (Aldactone) 50 mg DAILY PO Last administered on 01/15/19at 09:02; Admin Dose 50 MG; Start 01/12/19 at 09:00 Furosemide (Lasix) 20 mg DAILY IV Last administered on 01/15/19at 09:04; Admin Dose 20 MG; Start 01/12/19 at 09:00 Metoprolol Succinate (Toprol Xl) 50 mg DAILY PO Last administered on 01/15/19at 09:03; Admin Dose 50 MG; Start 01/12/19 at 09:00 Lorazepam (Ativan) 0.5 mg Q6H PRN IV ANXIETY Last administered on 01/14/19 13:07; Admin Dose 0.5 MG; Start 01/11/19 at 23:00 Clonidine (Catapres) 0.1 mg Q6H PRN PO systolic BP > 160 Last administered on 01/12/19 21:31; Admin Dose 0.1 MG; Start 01/12/19 at 21:00 Levothyroxine Sodium (Synthroid) 225 mcg DAILY@06 PO Last administered on 01/15/19 05:33; Admin Dose 225 MCG; Start 01/13/19 at 06:00 Allopurinol (Zyloprim) 100 mg DAILY PO Last administered on 01/15/19 09:03; Admin Dose 100 MG; Start 01/13/19 at 09:00 Ascorbic Acid (Vitamin C) 500 mg DAILY PO Last administered on 01/15/19 09:02; Admin Dose 500 MG; Start 01/13/19 at 09:00 Docusate Sodium (Colace) 200 mg QHS PO Last administered on 01/14/19 20:37; Admin Dose 200 MG; Start 01/13/19 at 21:00 Epoetin Ghulam-epbx (RETACRIT(non-esrd)) 10,000 unit Q48H SC Last administered on 01/13/19 17:01; Admin Dose 10,000 UNIT; Start 01/13/19 at 18:00 Ferrous Sulfate (Ferrous Sulfate (Ec)) 325 mg DAILY PO Last administered on 01/15/19 09:02; Admin Dose 325 MG; Start 01/13/19 at 09:00 Folic Acid (Folic Acid) 1 mg DAILY PO Last administered on 01/15/19 09:02; Admin Dose 1 MG; Start 01/13/19 at 09:00 Gabapentin (Neurontin) 100 mg TID PO Last administered on 01/15/19 13:44; Admin Dose 100 MG; Start 01/13/19 at 09:00 Acetaminophen/ Hydrocodone Bitart ([place] (5/325)) 1 tab Q6H PRN PO PAIN Last administered on 01/15/19 07:50; Admin Dose 1 TAB; Start 01/13/19 at 06:30 Lactulose (Enulose) 20 gm BID PO Last administered on 01/14/19 20:37; Admin Dose 20 GM; Start 01/13/19 at 09:00 Lorazepam (Ativan) 1 mg BID PRN PO ANXIETY Last administered on 01/14/19 20:36; Admin Dose 1 MG; Start 01/13/19 at 06:30 Rifaximin (Xifaxan) 550 mg BID PO Last administered on 01/15/19 09:02; Admin Dose 550 MG; Start 01/13/19 at 09:00 Sodium Bicarbonate (Sodium Bicarbonate Tab) 325 mg TID PO Last administered on 01/15/19 13:44; Admin Dose 325 MG; Start 01/13/19 at 09:00 Tamsulosin HCl (Flomax) 0.4 mg HS PO Last administered on 01/14/19 20:37; Admin Dose 0.4 MG; Start 01/13/19 at 21:00 Thiamine HCl (Vitamin B1) 100 mg DAILY PO Last administered on 01/15/19 09:02; Admin Dose 100 MG; Start 01/13/19 at 09:00 Arformoterol Tartrate (Brovana (Neb)) 2 ml BID RESP THERAPY INH Last administered on 01/14/19 19:53; Admin Dose 2 ML; Start 01/13/19 at 09:00 Budesonide (Pulmicort (Neb)) 0.5 mg Q12H RESP THERAPY INH Last administered on 01/14/19 19:54; Admin Dose 0.5 MG; Start 01/13/19 at 09:00 Dorzolamide/ Timolol (Cosopt Pf Eye Drops) 1 drop BID BOTH EYES Last administered on 01/15/19 09:02; Admin Dose 1 DROP; Start 01/13/19 at 11:30 Nicotine (Nicoderm 21 Mg/ 24hr) 1 patch DAILY TRANSDERM Last administered on 01/15/19 09:03; Admin Dose 1 PATCH; Start 01/14/19 at 09:00 Famotidine (Pepcid) 20 mg Q12 PO Last administered on 01/15/19 09:02; Admin Dose 20 MG; Start 01/13/19 at 21:00 Amlodipine Besylate (Norvasc) 5 mg DAILY PO Last administered on 01/15/19 09:02; Admin Dose 5 MG; Start 01/15/19 at 09:00 Hydromorphone HCl (Dilaudid) 1.5 mg Q4H PRN IV SEVERE PAIN LEVEL 7-10 Last administered on 01/15/19at 13:45; Admin Dose 1.5 MG; Start 01/15/19 at 05:30 Doxycycline Hyclate (Vibramycin) 100 mg 0800,1999 PO ; Start 01/15/19 at 20:00 ELADIO DELGADO MD Jan 15, 2019 15:17
[2019-01-15] MEDS: LORAZEPAM 2 MG INJ IV PRN ×2 (16:05→22:29)
[2019-01-15] MEDS: EPOETIN ALFA-EPBX (NON-ESRD 10,000 UNIT/ML VIAL SC SCH (17:55)
--- NOTE | 2019-01-15 18:26 | PN ---
Date/Time of Note Date/Time of Note DATE: 01/15/19 TIME: 18:23 Assessment/Plan VTE Prophylaxis Risk score (from [facility] [place]0 risk: 4 SCD applied (from [facility] [place]): Yes Pharmacological prophylaxis: NA/contraindicated Pharm contraindication: liver dx, thrombocytopenia Lines/Catheters IV Catheter Type (from [facility] [place]): Saline Lock Urinary Cath still in place: No Assessment/Plan Hospital Course Patient is comfortable on room air at rest, will obtain PT evaluation, patient's complaints of anxiety, pending psychiatrist evaluation. Assessment/Plan -Shortness of breath, rule out acute coronary syndrome -Acute on chronic diastolic congestive heart failure. Continue Lasix. Dr. Foley is following in cardiology consultation. -COPD exacerbation, continue bronchodilators, steroids, and oxygen supplementation. -Anemia, Dr. Mayes is following in gastroenterology consultation. -Alcoholic liver cirrhosis -Acute kidney injury on chronic kidney disease. Dr. Leung is following in nephrology consultation. -Bilateral lower extremities chronic venous stasis -Left foot plantar ulcer. Dr. Younger is following in podiatry consultation. -Obesity -Nicotine dependence, continue nicotine patch, cessation is strongly advised. -Ongoing alcohol use, cessation is strongly advised. -Poor medical compliance Further recommendations based on clinical course. Plan of care discussed with Dr. Lara. Result Diagram: 01/15/19 0915 01/15/19 0915 Results 24hrs Laboratory Tests Test 01/15/19 09:15 White Blood Count 13.9 H Red Blood Count 4.18 L Hemoglobin 9.1 L Hematocrit 32.9 L Mean Corpuscular Volume 78.7 L Mean Corpuscular Hemoglobin 21.8 L Mean Corpuscular Hemoglobin Concent 27.7 L Red Cell Distribution Width 23.1 H Platelet Count 160 # Mean Platelet Volume Immature Granulocytes % 5.200 H Neutrophils % Segmented Neutrophils % (Manual) 65 Lymphocytes % Lymphocytes % (Manual) 6 L Reactive Lymphocytes % (Manual) 1 H Monocytes % Monocytes % (Manual) 16 H Eosinophils % Eosinophils % (Manual) 8 H Basophils % Basophils % (Manual) 3 H Metamyelocytes % (manual) 1 H Nucleated Red Blood Cells % 0.0 Immature Granulocytes # 0.720 H Neutrophils # Lymphocytes (Manual) 0.8 Lymphocytes # Reactive Lymphocytes # 0.1 H Monocytes # Monocytes # (Manual) 2.2 H Eosinophils # Basophils # Basophils # (Manual) 0.4 H Metamyelocytes # 0.1 H Nucleated Red Blood Cells # Platelet Estimate NORMAL Polychromasia 3+ Hypochromasia 2+ Poikilocytosis 1+ Anisocytosis 2+ Microcytosis 1+ Target Cells 1+ Sodium Level 139 Potassium Level 4.5 Chloride Level 108 Carbon Dioxide Level 21 Anion Gap 10 Blood Urea Nitrogen 46 H Creatinine 1.54 H Est Glomerular Filtrat Rate mL/min 46 L Glucose Level 141 # Calcium Level 9.1 Exam/Review of Systems Exam Vitals Vital Signs Date Temp Pulse Resp B/P (MAP) Pulse Ox O2 O2 Flow FiO2 Time Delivery Rate 01/15/19 98.0 72 18 133/60 93 Room Air 14:15 (84) 01/14/19 21 19:54 01/14/19 2.0 05:37 Intake and Output 01/14/19 01/14/19 01/15/19 1515:00 23:00 07:00 IntakeIntake Total 1500 ml 1200 ml OutputOutput Total 925 ml 800 ml BalanceBalance 575 ml 400 ml Exam Constitutional: alert, oriented Respiratory: diminished breath sounds, wheezing Cardiovascular: regular rate and rhythm Gastrointestinal: soft, distended Extremities: normal pulses, edema, other (Bilateral lower extremities erythema) Neurological: nl mental status Skin: other (Left foot plantar ulcer) Results Results 24hrs Laboratory Tests Test 01/15/19 09:15 White Blood Count 13.9 H Red Blood Count 4.18 L Hemoglobin 9.1 L Hematocrit 32.9 L Mean Corpuscular Volume 78.7 L Mean Corpuscular Hemoglobin 21.8 L Mean Corpuscular Hemoglobin Concent 27.7 L Red Cell Distribution Width 23.1 H Platelet Count 160 # Mean Platelet Volume Immature Granulocytes % 5.200 H Neutrophils % Segmented Neutrophils % (Manual) 65 Lymphocytes % Lymphocytes % (Manual) 6 L Reactive Lymphocytes % (Manual) 1 H Monocytes % Monocytes % (Manual) 16 H Eosinophils % Eosinophils % (Manual) 8 H Basophils % Basophils % (Manual) 3 H Metamyelocytes % (manual) 1 H Nucleated Red Blood Cells % 0.0 Immature Granulocytes # 0.720 H Neutrophils # Lymphocytes (Manual) 0.8 Lymphocytes # Reactive Lymphocytes # 0.1 H Monocytes # Monocytes # (Manual) 2.2 H Eosinophils # Basophils # Basophils # (Manual) 0.4 H Metamyelocytes # 0.1 H Nucleated Red Blood Cells # Platelet Estimate NORMAL Polychromasia 3+ Hypochromasia 2+ Poikilocytosis 1+ Anisocytosis 2+ Microcytosis 1+ Target Cells 1+ Sodium Level 139 Potassium Level 4.5 Chloride Level 108 Carbon Dioxide Level 21 Anion Gap 10 Blood Urea Nitrogen 46 H Creatinine 1.54 H Est Glomerular Filtrat Rate mL/min 46 L Glucose Level 141 # Calcium Level 9.1 Medications Medication Current Medications IV Flush (NS 3 ml) 3 ml PER PROTOCOL IV ; Start 01/11/19 at 13:00 Ondansetron HCl (Zofran Inj) 4 mg Q6H PRN IV NAUSEA/VOMITING; Start 01/11/19 at 13:00 Acetaminophen (Tylenol Tab) 650 mg Q6H PRN PO .PAIN 1-3 OR TEMP; Start 01/11/19 at 13:00 Albuterol (Proventil 0.083% (Neb)) 2.5 mg Q6 PRN HHN shortness of breath; Start 01/11/19 at 13:00 Spironolactone (Aldactone) 50 mg DAILY PO Last administered on 01/15/19 09:02; Admin Dose 50 MG; Start 01/12/19 at 09:00 Furosemide (Lasix) 20 mg DAILY IV Last administered on 01/15/19 09:04; Admin Dose 20 MG; Start 01/12/19 at 09:00 Metoprolol Succinate (Toprol Xl) 50 mg DAILY PO Last administered on 01/15/19 09:03; Admin Dose 50 MG; Start 01/12/19 at 09:00 Lorazepam (Ativan) 0.5 mg Q6H PRN IV ANXIETY Last administered on 01/15/19 16:05; Admin Dose 0.5 MG; Start 01/11/19 at 23:00 Clonidine (Catapres) 0.1 mg Q6H PRN PO systolic BP > 160 Last administered on 01/12/19 21:31; Admin Dose 0.1 MG; Start 01/12/19 at 21:00 Levothyroxine Sodium (Synthroid) 225 mcg DAILY@06 PO Last administered on 01/15/19 05:33; Admin Dose 225 MCG; Start 01/13/19 at 06:00 Allopurinol (Zyloprim) 100 mg DAILY PO Last administered on 01/15/19 09:03; Admin Dose 100 MG; Start 01/13/19 at 09:00 Ascorbic Acid (Vitamin C) 500 mg DAILY PO Last administered on 01/15/19 09:02; Admin Dose 500 MG; Start 01/13/19 at 09:00 Docusate Sodium (Colace) 200 mg QHS PO Last administered on 01/14/19 20:37; Admin Dose 200 MG; Start 01/13/19 at 21:00 Epoetin Ghulam-epbx (RETACRIT(non-esrd)) 10,000 unit Q48H SC Last administered on 01/15/19 17:55; Admin Dose 10,000 UNIT; Start 01/13/19 at 18:00 Ferrous Sulfate (Ferrous Sulfate (Ec)) 325 mg DAILY PO Last administered on 01/15/19 09:02; Admin Dose 325 MG; Start 01/13/19 at 09:00 Folic Acid (Folic Acid) 1 mg DAILY PO Last administered on 01/15/19 09:02; Admin Dose 1 MG; Start 01/13/19 at 09:00 Gabapentin (Neurontin) 100 mg TID PO Last administered on 01/15/19 13:44; Admin Dose 100 MG; Start 01/13/19 at 09:00 Acetaminophen/ Hydrocodone Bitart ([place] (5/325)) 1 tab Q6H PRN PO PAIN Last administered on 01/15/19 07:50; Admin Dose 1 TAB; Start 01/13/19 at 06:30 Lactulose (Enulose) 20 gm BID PO Last administered on 01/14/19 20:37; Admin Dose 20 GM; Start 01/13/19 at 09:00 Lorazepam (Ativan) 1 mg BID PRN PO ANXIETY Last administered on 01/14/19 20:36; Admin Dose 1 MG; Start 01/13/19 at 06:30 Rifaximin (Xifaxan) 550 mg BID PO Last administered on 01/15/19 09:02; Admin Dose 550 MG; Start 01/13/19 at 09:00 Sodium Bicarbonate (Sodium Bicarbonate Tab) 325 mg TID PO Last administered on 01/15/19 13:44; Admin Dose 325 MG; Start 01/13/19 at 09:00 Tamsulosin HCl (Flomax) 0.4 mg HS PO Last administered on 01/14/19 20:37; Admin Dose 0.4 MG; Start 01/13/19 at 21:00 Thiamine HCl (Vitamin B1) 100 mg DAILY PO Last administered on 01/15/19 09:02; Admin Dose 100 MG; Start 01/13/19 at 09:00 Arformoterol Tartrate (Brovana (Neb)) 2 ml BID RESP THERAPY INH Last administered on 01/14/19 19:53; Admin Dose 2 ML; Start 01/13/19 at 09:00 Budesonide (Pulmicort (Neb)) 0.5 mg Q12H RESP THERAPY INH Last administered on 01/14/19 19:54; Admin Dose 0.5 MG; Start 01/13/19 at 09:00 Dorzolamide/ Timolol (Cosopt Pf Eye Drops) 1 drop BID BOTH EYES Last administered on 01/15/19 09:02; Admin Dose 1 DROP; Start 01/13/19 at 11:30 Nicotine (Nicoderm 21 Mg/ 24hr) 1 patch DAILY TRANSDERM Last administered on 01/15/19 09:03; Admin Dose 1 PATCH; Start 01/14/19 at 09:00 Famotidine (Pepcid) 20 mg Q12 PO Last administered on 01/15/19 09:02; Admin Dose 20 MG; Start 01/13/19 at 21:00 Amlodipine Besylate (Norvasc) 5 mg DAILY PO Last administered on 01/15/19 09:02; Admin Dose 5 MG; Start 01/15/19 at 09:00 Hydromorphone HCl (Dilaudid) 1.5 mg Q4H PRN IV SEVERE PAIN LEVEL 7-10 Last administered on 01/15/19 17:53; Admin Dose 1.5 MG; Start 01/15/19 at 05:30 Doxycycline Hyclate (Vibramycin) 100 mg 0800,2000 PO ; Start 01/15/19 at 20:00 MILLICENT GOVEA Jan 15, 2019 18:26
[2019-01-15 20:00] VITALS: BP 143/66; PULSE 81; RESP 17
[2019-01-15] MEDS: DOXYCYCLINE 100 MG TAB PO SCH (21:01)
[2019-01-15] MEDS: TAMSULOSIN (SR) 0.4 MG CAP PO SCH (21:01)
[2019-01-15] MEDS: DOCUSATE SODIUM 100 MG CAP PO SCH (21:01)
[2019-01-16] MEDS: HYDROCODONE/APAP (5/325) TAB PO PRN ×4 (00:49→20:27)
[2019-01-16 02:00] VITALS: BP 149/70; PULSE 77; RESP 17
[2019-01-16] MEDS: HYDROmorphONE 1 MG/ML SYG IV PRN ×4 (02:08→21:27)
[2019-01-16] MEDS: LEVOTHYROXINE 75 MCG TAB PO SCH (05:15)
[2019-01-16] MEDS: LORAZEPAM 2 MG INJ IV PRN ×2 (05:17→20:34)
[2019-01-16 07:30] VITALS: BP 144/67; PULSE 69; RESP 18
[2019-01-16] MEDS: BUDESONIDE (NEB) 0.5MG/2ML AMP INH SCH ×2 (07:57→20:32)
[2019-01-16] MEDS: ARFORMOTEROL TARTRATE 15MCG/2 ML AMP INH SCH ×2 (07:57→20:32)
[2019-01-16] MEDS: LACTULOSE 30ML CUP PO SCH ×2 (09:00→20:33)
[2019-01-16] MEDS: AMLODIPINE 5 MG TAB PO SCH (09:25)
[2019-01-16] MEDS: NA BICARBONATE 650 MG TAB PO SCH ×3 (09:25→20:27)
[2019-01-16] MEDS: THIAMINE 100 MG TAB PO SCH (09:26)
[2019-01-16] MEDS: RIFAXIMIN 550 MG TAB PO SCH ×2 (09:26→20:27)
[2019-01-16] MEDS: SPIRONOLACTONE 50 MG TAB PO SCH (09:26)
[2019-01-16] MEDS: FUROSEMIDE 20 MG TAB PO SCH (09:26)
[2019-01-16] MEDS: METOPROLOL (XL) 50 MG TAB PO SCH (09:26)
[2019-01-16] MEDS: GABAPENTIN 100 MG CAP PO SCH ×3 (09:26→20:27)
[2019-01-16] MEDS: FAMOTIDINE 20 MG TAB PO SCH ×2 (09:26→20:27)
[2019-01-16] MEDS: ASCORBIC ACID 500 MG TAB PO SCH (09:26)
[2019-01-16] MEDS: FERROUS SULFATE (EC) 325 MG TAB PO SCH (09:26)
[2019-01-16] MEDS: DORZOLAMIDE/TIMOLOL/PF 0.2 ML DROPERETTE BOTH EYES SCH ×2 (09:27→20:27)
[2019-01-16] MEDS: ALLOPURINOL 100 MG TAB PO SCH (09:27)
[2019-01-16] MEDS: FOLIC ACID 1 MG TAB PO SCH (09:31)
[2019-01-16] MEDS: NICOTINE (21 MG/24 HR) PATCH TRANSDERM SCH (09:31)
[2019-01-16] MEDS: DOXYCYCLINE 100 MG TAB PO SCH ×2 (09:33→20:49)
--- NOTE | 2019-01-16 10:24 | CONS ---
Assessment/Plan Assessment/Plan Assessment/Plan (Daily) 1. acute on chronic renal failure due to Type II hepatorenal syndrome 2. SIRS 3. anemia of CKD 5. Decompensated Liver cirrhosis with Symptomatic ascites 6. H/O HTN 7. h/o Liver cirrhosis with ascites 8. H/o Diastolic CHF 9. Bilateral LE chronic venous stasis Plan: Continue IV abx as per ID , renally dose all abx , monitor electorlytes and replace as needed, BUN/Cr 47/1.67-Electrolyte stable today , change lasix to 20mg po daily, , spironolactone 50mg po daily , Toprol Xl 50mg po daily on Sodium bicarbonte 325mg PO TID will follow up Consultation Date/Type/Reason Admit Date/Time Jan 11, 2019 at 09:53 Initial Consult Date 01/11/19 Type of Consult Nephrology Requesting Provider: WERNER KING Date/Time of Note DATE: 01/16/19 TIME: 10:24 Exam/Review of Systems Exam Vitals Vital Signs Date Temp Pulse Resp B/P (MAP) Pulse Ox O2 O2 Flow FiO2 Time Delivery Rate 01/16/19 98.2 69 18 144/67 96 Room Air 07:30 (92) 01/15/19 21 20:20 01/14/19 2.0 05:37 Intake and Output 01/15/19 01/15/19 01/16/19 1515:00 23:00 07:00 IntakeIntake Total 300 ml 400 ml BalanceBalance 300 ml 400 ml Exam Constitutional: alert, awake, on acute distress Respiratory: clear to auscultation, no crackles no wheezing Cardiovascular: regular rate and rhythm, nl pulses Gastrointestinal: soft, non-tender, ascites, distended Musculoskeletal: joint tenderness, muscle weakness, swelling Extremities: chronic LE venous stasis 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, nl mental status, nl speech, nl strength Lymph: nl lymph nodes Results Result Diagram: 01/16/1960201/16/19 0603 Results 24hrs Laboratory Tests Test 01/16/19 06:03 White Blood Count 15.6 H Red Blood Count 4.26 L Hemoglobin 9.1 L Hematocrit 33.5 L Mean Corpuscular Volume 78.6 L Mean Corpuscular Hemoglobin 21.4 L Mean Corpuscular Hemoglobin Concent 27.2 L Red Cell Distribution Width 23.3 H Platelet Count 165 Mean Platelet Volume Immature Granulocytes % 4.900 H Neutrophils % 60.1 Lymphocytes % 6.6 L Monocytes % 21.9 H Eosinophils % 5.5 Basophils % 1.0 Nucleated Red Blood Cells % 0.0 Immature Granulocytes # 0.770 H Neutrophils # 9.4 H Lymphocytes # 1.0 Monocytes # 3.4 H Eosinophils # 0.9 H Basophils # 0.2 H Nucleated Red Blood Cells # 0.0 Sodium Level 140 Potassium Level 4.5 Chloride Level 107 Carbon Dioxide Level 24 Anion Gap 9 Blood Urea Nitrogen 47 H Creatinine 1.67 H Est Glomerular Filtrat Rate mL/min 42 L Glucose Level 114 Calcium Level 9.0 Medications Medication Current Medications IV Flush (NS 3 ml) 3 ml PER PROTOCOL IV ; Start 01/11/19 at 13:00 Ondansetron HCl (Zofran Inj) 4 mg Q6H PRN IV NAUSEA/VOMITING; Start 01/11/19 at 13:00 Acetaminophen (Tylenol Tab) 650 mg Q6H PRN PO .PAIN 1-3 OR TEMP; Start 01/11/19 at 13:00 Albuterol (Proventil 0.083% (Neb)) 2.5 mg Q6 PRN HHN shortness of breath; Start 01/11/19 at 13:00 Spironolactone (Aldactone) 50 mg DAILY PO Last administered on 01/16/19at 09:26; Admin Dose 50 MG; Start 01/12/19 at 09:00 Metoprolol Succinate (Toprol Xl) 50 mg DAILY PO Last administered on 01/16/19 09:26; Admin Dose 50 MG; Start 01/12/19 at 09:00 Lorazepam (Ativan) 0.5 mg Q6H PRN IV ANXIETY Last administered on 01/16/19 05:17; Admin Dose 0.5 MG; Start 01/11/19 at 23:00 Clonidine (Catapres) 0.1 mg Q6H PRN PO systolic BP > 160 Last administered on 01/12/19at 21:31; Admin Dose 0.1 MG; Start 01/12/19 at 21:00 Levothyroxine Sodium (Synthroid) 225 mcg DAILY@06 PO Last administered on 01/16/19at 05:15; Admin Dose 225 MCG; Start 01/13/19 at 06:00 Allopurinol (Zyloprim) 100 mg DAILY PO Last administered on 01/16/19 09:27; Admin Dose 100 MG; Start 01/13/19 at 09:00 Ascorbic Acid (Vitamin C) 500 mg DAILY PO Last administered on 01/16/19 09:26; Admin Dose 500 MG; Start 01/13/19 at 09:00 Docusate Sodium (Colace) 200 mg QHS PO Last administered on 01/15/19 21:01; Admin Dose 200 MG; Start 01/13/19 at 21:00 Epoetin Ghulam-epbx (RETACRIT(non-esrd)) 10,000 unit Q48H SC Last administered on 01/15/19 17:55; Admin Dose 10,000 UNIT; Start 01/13/19 at 18:00 Ferrous Sulfate (Ferrous Sulfate (Ec)) 325 mg DAILY PO Last administered on 01/16/19 09:26; Admin Dose 325 MG; Start 01/13/19 at 09:00 Folic Acid (Folic Acid) 1 mg DAILY PO Last administered on 01/16/19 09:31; Admin Dose 1 MG; Start 01/13/19 at 09:00 Gabapentin (Neurontin) 100 mg TID PO Last administered on 01/16/19 09:26; Admin Dose 100 MG; Start 01/13/19 at 09:00 Lactulose (Enulose) 20 gm BID PO Last administered on 01/14/19 20:37; Admin Dose 20 GM; Start 01/13/19 at 09:00 Lorazepam (Ativan) 1 mg BID PRN PO ANXIETY Last administered on 01/14/19 20:36; Admin Dose 1 MG; Start 01/13/19 at 06:30 Rifaximin (Xifaxan) 550 mg BID PO Last administered on 01/16/19 09:26; Admin Dose 550 MG; Start 01/13/19 at 09:00 Sodium Bicarbonate (Sodium Bicarbonate Tab) 325 mg TID PO Last administered on 01/16/19 09:25; Admin Dose 325 MG; Start 01/13/19 at 09:00 Tamsulosin HCl (Flomax) 0.4 mg HS PO Last administered on 01/15/19 21:01; Admin Dose 0.4 MG; Start 01/13/19 at 21:00 Thiamine HCl (Vitamin B1) 100 mg DAILY PO Last administered on 01/16/19 09:26; Admin Dose 100 MG; Start 01/13/19 at 09:00 Arformoterol Tartrate (Brovana (Neb)) 2 ml BID RESP THERAPY INH Last administered on 01/15/19 20:20; Admin Dose 2 ML; Start 01/13/19 at 09:00 Budesonide (Pulmicort (Neb)) 0.5 mg Q12H RESP THERAPY INH Last administered on 01/15/19 20:20; Admin Dose 0.5 MG; Start 01/13/19 at 09:00 Dorzolamide/ Timolol (Cosopt Pf Eye Drops) 1 drop BID BOTH EYES Last administered on 01/16/19 09:27; Admin Dose 1 DROP; Start 01/13/19 at 11:30 Nicotine (Nicoderm 21 Mg/ 24hr) 1 patch DAILY TRANSDERM Last administered on 01/16/19 09:31; Admin Dose 1 PATCH; Start 01/14/19 at 09:00 Famotidine (Pepcid) 20 mg Q12 PO Last administered on 01/16/19 09:26; Admin Dose 20 MG; Start 01/13/19 at 21:00 Amlodipine Besylate (Norvasc) 5 mg DAILY PO Last administered on 01/16/19 09:25; Admin Dose 5 MG; Start 01/15/19 at 09:00 Hydromorphone HCl (Dilaudid) 1.5 mg Q4H PRN IV SEVERE PAIN LEVEL 7-10 Last administered on 01/16/19 02:08; Admin Dose 1.5 MG; Start 01/15/19 at 05:30 Doxycycline Hyclate (Vibramycin) 100 mg 0800,1999 PO Last administered on 01/16/19 09:33; Admin Dose 100 MG; Start 01/15/19 at 20:00 Furosemide (Lasix) 20 mg DAILY PO Last administered on 01/16/19 09:26; Admin Dose 20 MG; Start 01/16/19 at 09:00 Acetaminophen/ Hydrocodone Bitart ([place] (5/325)) 1 tab Q4H PRN PO PAIN Last a dministered on 01/16/19 09:26; Admin Dose 1 TAB; Start 01/16/19 at 01:00 ELADIO DELGADO MD Jan 16, 2019 10:24
--- NOTE | 2019-01-16 11:37 | CONS ---
Assessment/Plan Assessment/Plan Hospital Course (Demo Recall) All noted. No acute changes, looks comfortable Antimicrobials: Doxycycline Physical examination: This is a wasted well-developed chronically ill-appearing elderly man who is in no distress. Head atraumatic normocephalic sclera nonicteric. Neck is supple chest rise symmetrical breath sounds diminished bases. Heart: S1-S2. Abdomen soft bowel sounds present. Extremities without BLE edema, mild erythema, no cyanosis. Assessment: 1. Systemic inflammatory response syndrome 2. S/p COPD exacerbation 3. Alcohol abuse 4. Bilateral lower extremities chronic venous stasis 5. Cirrhosis with recurrent ascites 6. Chronic kidney disease 7. CHF 8. Noncompliance Plan: Clinically unchanged, continue present care, consider abdominal US to evaluate for recurrent ascites, cxr 01/15/19 noted, GI/renal rec-s Consultation Date/Type/Reason Admit Date/Time Jan 11, 2019 at 09:53 Initial Consult Date Type of Consult id Requesting Provider: WERNER KING Date/Time of Note DATE: 01/16/19 TIME: 11:36 Exam/Review of Systems Exam Vitals Vital Signs Date Temp Pulse Resp B/P (MAP) Pulse Ox O2 O2 Flow FiO2 Time Delivery Rate 01/16/19 98.2 69 18 144/67 96 Room Air 07:30 (92) 01/15/19 21 20:20 01/14/19 2.0 05:37 Intake and Output 01/15/19 01/15/19 01/16/19 1414:59 22:59 06:59 IntakeIntake Total 300 ml 400 ml BalanceBalance 300 ml 400 ml Results Result Diagram: 01/16/19 0603 01/16/19 0603 Results 24hrs Laboratory Tests Test 01/16/19 06:03 White Blood Count 15.6 H Red Blood Count 4.26 L Hemoglobin 9.1 L Hematocrit 33.5 L Mean Corpuscular Volume 78.6 L Mean Corpuscular Hemoglobin 21.4 L Mean Corpuscular Hemoglobin Concent 27.2 L Red Cell Distribution Width 23.3 H Platelet Count 165 Mean Platelet Volume Immature Granulocytes % 4.900 H Neutrophils % 60.1 Lymphocytes % 6.6 L Monocytes % 21.9 H Eosinophils % 5.5 Basophils % 1.0 Nucleated Red Blood Cells % 0.0 Immature Granulocytes # 0.770 H Neutrophils # 9.4 H Lymphocytes # 1.0 Monocytes # 3.4 H Eosinophils # 0.9 H Basophils # 0.2 H Nucleated Red Blood Cells # 0.0 Sodium Level 140 Potassium Level 4.5 Chloride Level 107 Carbon Dioxide Level 24 Anion Gap 9 Blood Urea Nitrogen 47 H Creatinine 1.67 H Est Glomerular Filtrat Rate mL/min 42 L Glucose Level 114 Calcium Level 9.0 Medications Medication Current Medications IV Flush (NS 3 ml) 3 ml PER PROTOCOL IV ; Start 01/11/19 at 13:00 Ondansetron HCl (Zofran Inj) 4 mg Q6H PRN IV NAUSEA/VOMITING; Start 01/11/19 at 13:00 Acetaminophen (Tylenol Tab) 650 mg Q6H PRN PO .PAIN 1-3 OR TEMP; Start 01/11/19 at 13:00 Albuterol (Proventil 0.083% (Neb)) 2.5 mg Q6 PRN HHN shortness of breath; Start 01/11/19 at 13:00 Spironolactone (Aldactone) 50 mg DAILY PO Last administered on 01/16/19 09:26; Admin Dose 50 MG; Start 01/12/19 at 09:00 Metoprolol Succinate (Toprol Xl) 50 mg DAILY PO Last administered on 01/16/19 09:26; Admin Dose 50 MG; Start 01/12/19 at 09:00 Lorazepam (Ativan) 0.5 mg Q6H PRN IV ANXIETY Last administered on 01/16/19 05:17; Admin Dose 0.5 MG; Start 01/11/19 at 23:00 Clonidine (Catapres) 0.1 mg Q6H PRN PO systolic BP > 160 Last administered on 01/12/19 21:31; Admin Dose 0.1 MG; Start 01/12/19 at 21:00 Levothyroxine Sodium (Synthroid) 225 mcg DAILY@06 PO Last administered on 01/16/19 05:15; Admin Dose 225 MCG; Start 01/13/19 at 06:00 Allopurinol (Zyloprim) 100 mg DAILY PO Last administered on 01/16/19 09:27; Admin Dose 100 MG; Start 01/13/19 at 09:00 Ascorbic Acid (Vitamin C) 500 mg DAILY PO Last administered on 01/16/19 09:26; Admin Dose 500 MG; Start 01/13/19 at 09:00 Docusate Sodium (Colace) 200 mg QHS PO Last administered on 01/15/19 21:01; Admin Dose 200 MG; Start 01/13/19 at 21:00 Epoetin Ghulam-epbx (RETACRIT(non-esrd)) 10,000 unit Q48H SC Last administered on 01/15/19 17:55; Admin Dose 10,000 UNIT; Start 01/13/19 at 18:00 Ferrous Sulfate (Ferrous Sulfate (Ec)) 325 mg DAILY PO Last administered on 01/16/19 09:26; Admin Dose 325 MG; Start 01/13/19 at 09:00 Folic Acid (Folic Acid) 1 mg DAILY PO Last administered on 01/16/19 09:31; Admin Dose 1 MG; Start 01/13/19 at 09:00 Gabapentin (Neurontin) 100 mg TID PO Last administered on 01/16/19 09:26; Admin Dose 100 MG; Start 01/13/19 at 09:00 Lactulose (Enulose) 20 gm BID PO Last administered on 01/14/19 20:37; Admin Dose 20 GM; Start 01/13/19 at 09:00 Lorazepam (Ativan) 1 mg BID PRN PO ANXIETY Last administered on 01/14/19 20:36; Admin Dose 1 MG; Start 01/13/19 at 06:30 Rifaximin (Xifaxan) 550 mg BID PO Last administered on 01/16/19 09:26; Admin Dose 550 MG; Start 01/13/19 at 09:00 Sodium Bicarbonate (Sodium Bicarbonate Tab) 325 mg TID PO Last administered on 01/16/19 09:25; Admin Dose 325 MG; Start 01/13/19 at 09:00 Tamsulosin HCl (Flomax) 0.4 mg HS PO Last administered on 01/15/19 21:01; Admin Dose 0.4 MG; Start 01/13/19 at 21:00 Thiamine HCl (Vitamin B1) 100 mg DAILY PO Last administered on 01/16/19 09:26; Admin Dose 100 MG; Start 01/13/19 at 09:00 Arformoterol Tartrate (Brovana (Neb)) 2 ml BID RESP THERAPY INH Last administered on 01/15/19 20:20; Admin Dose 2 ML; Start 01/13/19 at 09:00 Budesonide (Pulmicort (Neb)) 0.5 mg Q12H RESP THERAPY INH Last administered on 01/15/19 20:20; Admin Dose 0.5 MG; Start 01/13/19 at 09:00 Dorzolamide/ Timolol (Cosopt Pf Eye Drops) 1 drop BID BOTH EYES Last administered on 01/16/19 09:27; Admin Dose 1 DROP; Start 01/13/19 at 11:30 Nicotine (Nicoderm 21 Mg/ 24hr) 1 patch DAILY TRANSDERM Last administered on 01/16/19 09:31; Admin Dose 1 PATCH; Start 01/14/19 at 09:00 Famotidine (Pepcid) 20 mg Q12 PO Last administered on 01/16/19 09:26; Admin Dose 20 MG; Start 01/13/19 at 21:00 Amlodipine Besylate (Norvasc) 5 mg DAILY PO Last administered on 01/16/19 09:25; Admin Dose 5 MG; Start 01/15/19 at 09:00 Hydromorphone HCl (Dilaudid) 1.5 mg Q4H PRN IV SEVERE PAIN LEVEL 7-10 Last administered on 01/16/19 02:08; Admin Dose 1.5 MG; Start 01/15/19 at 05:30 Doxycycline Hyclate (Vibramycin) 100 mg 0800,2000 PO Last administered on 01/16/19 09:33; Admin Dose 100 MG; Start 01/15/19 at 20:00 Furosemide (Lasix) 20 mg DAILY PO Last administered on 01/16/19 09:26; Admin Dose 20 MG; Start 01/16/19 at 09:00 Acetaminophen/ Hydrocodone Bitart ([place] (5/325)) 1 tab Q4H PRN PO PAIN Last administered on 01/16/19 09:26; Admin Dose 1 TAB; Start 01/16/19 at 01:00 MELISSA NASH NP Jan 16, 2019 11:37
--- NOTE | 2019-01-16 12:03 | PSY ---
Date/Time of Note Date/Time of Note DATE: 01/16/19 TIME: 11:59 Psychiatric Subjective Eval Consent Pt consented to telemedicine: No Subjective Evaluation Patient location: inpatient Chief Complaint: SOB,BODY PAINS, SIGNED AMA ON January FROM FLOOR, [facility] History of present illness Patient is 63-year-old male with underlying medical issues COPD, BPH, congestive heart failure, liver cirrhosis, chronic kidney disease, gastritis, and chronic edema, hypothyroidism BPH, chronic pain . On a [id number] evaluation, patient states morning, he reports increased anxiety because of his pain he is reques ting more medications. Patient also reports he has gone through counseling because of his anxiety, he denies suicidal ideation denies homicidal ideation and contracted for safety. Discussed risk and benefits of BuSpar to help him with anxiety and he verbalized understanding. Hospitalization: yes Medical history Problems Medical Problems: (1) Abdominal pain Status: Acute (2) Acute hypokalemia Status: Acute (3) Acute kidney injury Status: Acute (4) Alcohol abuse Status: Acute (5) Alcohol abuse Status: Acute (6) Alcoholic cirrhosis Status: Acute (7) Alcoholic intoxication Status: Acute (8) Altered mental status Status: Acute (9) Anemia Status: Acute (10) Ascites Status: Acute (11) Back pain Status: Acute (12) Bilateral lower leg cellulitis Status: Acute (13) Bilateral lower leg cellulitis Status: Acute (14) Cellulitis Status: Acute (15) Cellulitis Status: Acute (16) Cellulitis Status: Acute (17) Chest pain Status: Acute (18) CHF (congestive heart failure) Status: Acute (19) CHF (congestive heart failure), NYHA class I Status: Acute (20) Chronic alcohol abuse Status: Acute (21) Chronic kidney disease Status: Acute (22) Chronic pain Status: Acute (23) Chronic pain Status: Acute (24) Cirrhosis Status: Acute (25) Cirrhosis of liver with ascites Status: Acute (26) COPD exacerbation Status: Acute (27) COPD with exacerbation Status: Acute (28) COPD with exacerbation Status: Acute (29) Drug-seeking behavior Status: Acute (30) Encephalopathy chronic Status: Acute (31) GI bleed Status: Acute (32) Hemodialysis catheter malfunction Status: Acute (33) Hyperammonemia Status: Acute (34) Hyperkalemia Status: Acute (35) Hypocalcemia Status: Acute (36) Hyponatremia Status: Acute (37) Hypotension Status: Acute (38) Knee pain Status: Acute (39) Leukocytosis Status: Acute (40) Leukocytosis Status: Acute (41) Liver cirrhosis Status: Acute (42) Lower extremity weakness Status: Acute (43) Microcytic anemia Status: Acute (44) Myalgia Status: Acute (45) Normocytic anemia Status: Acute (46) Normocytic anemia Status: Acute (47) Osteomyelitis of foot, left, acute Status: Acute (48) Peripheral edema Status: Acute (49) Pneumonia Status: Acute (50) Renal insufficiency Status: Acute (51) Sciatica Status: Acute (52) Septic shock Status: Acute (53) Severe sepsis Status: Acute (54) Shortness of breath Status: Acute (55) Shortness of breath Status: Acute (56) Shortness of breath Status: Acute (57) Smoking history Status: Acute (58) Stasis dermatitis Status: Acute Allergies: Coded Allergies: Penicillins (Unverified Allergy, Unknown, 01/11/19) Substance Abuse Substance abuse history: No Prior substance abuse treatmen: No Social History Marital status: other Psychiatric Objective Eval Review of Systems: Review of Systems: Not Applicable Physical Examination: Physical Examination: Not Applicable Energy: Decreased Interest: Decreased Mental Status Examination: Eye Contact: Poor Behavior: Cooperative Speech: Clear AFFECT: Anxious Mood: Anxious Though Process: Linear Thought Content: Delusions Orientation: x4 Insight: Mild Judgement: Moderate Attention Span: Distractible Laboratory Results Laboratory Tests Test 01/15/19 09:15 01/16/19 06:03 White Blood Count 13.9 10^3/ul 15.6 10^3/ul Red Blood Count 4.18 10^6/ul 4.26 10^6/ul Hemoglobin 9.1 g/dl 9.1 g/dl Hematocrit 32.9 % 33.5 % Mean Corpuscular Volume 78.7 fl 78.6 fl Mean Corpuscular Hemoglobin 21.8 pg 21.4 pg Mean Corpuscular Hemoglobin Concent 27.7 g/dl 27.2 g/dl Red Cell Distribution Width 23.1 % 23.3 % Platelet Count 160 10^3/UL 165 10^3/UL Mean Platelet Volume fl fl Immature Granulocytes % 5.200 % 4.900 % Neutrophils % % 60.1 % Segmented Neutrophils % (Manual) 65 % Lymphocytes % % 6.6 % Lymphocytes % (Manual) 6 % Reactive Lymphocytes % (Manual) 1 % Monocytes % % 21.9 % Monocytes % (Manual) 16 % Eosinophils % % 5.5 % Eosinophils % (Manual) 8 % Basophils % % 1.0 % Basophils % (Manual) 3 % Metamyelocytes % (manual) 1 % Nucleated Red Blood Cells % 0.0 /100WBC 0.0 /100WBC Immature Granulocytes # 0.720 10^3/ul 0.770 10^3/ul Neutrophils # 10^3/ul 9.4 10^3/ul Lymphocytes (Manual) 0.8 10^3/ul Lymphocytes # 10^3/ul 1.0 10^3/ul Reactive Lymphocytes # 0.1 10^3/ul Monocytes # 10^3/ul 3.4 10^3/ul Monocytes # (Manual) 2.2 10^3/ul Eosinophils # 10^3/ul 0.9 10^3/ul Basophils # 10^3/ul 0.2 10^3/ul Basophils # (Manual) 0.4 10^3/ul Metamyelocytes # 0.1 10^3/ul Nucleated Red Blood Cells # 10^3/ul 0.0 10^3/ul Platelet Estimate NORMAL Polychromasia 3+ Hypochromasia 2+ Poikilocytosis 1+ Anisocytosis 2+ Microcytosis 1+ Target Cells 1+ Sodium Level 139 mmol/L 140 mmol/L Potassium Level 4.5 mmol/L 4.5 mmol/L Chloride Level 108 mmol/L 107 mmol/L Carbon Dioxide Level 21 mmol/L 24 mmol/L Anion Gap 10 9 Blood Urea Nitrogen 46 mg/dl 47 mg/dl Creatinine 1.54 mg/dl 1.67 mg/dl Est Glomerular Filtrat Rate mL/min 46 mL/min 42 mL/min Glucose Level 141 mg/dl 114 mg/dl Calcium Level 9.1 mg/dl 9.0 mg/dl Assessment and Plan Assessment/Diagnosis Diagnosis Anxiety disorder Recommendation/Plan Multiple antipsychotics: No Discharge Disposition: Other Legal Status: Release involuntary hold TICARMENDONYGIANCARLO Jara NP Jan 16, 2019 12:03
[2019-01-16] MEDS: BUSPIRONE 10 MG TAB PO SCH ×2 (14:02→20:27)
[2019-01-16 14:15] VITALS: BP 127/63; PULSE 78; RESP 18
--- NOTE | 2019-01-16 15:18 | PN ---
Date/Time of Note Date/Time of Note DATE: 01/16/19 TIME: 15:17 Assessment/Plan VTE Prophylaxis [place] [facility] [place] [facility]: 5 [place]CD applied [place] [facility] Yes SCD contraindicated: other Pharmacological prophylaxis: other Pharm contraindication: other Lines/Catheters IV [facility]ter [facility]from [facility] Saline Lock Urinary Cath still in place: No Assessment/Plan Assessment/Plan -Shortness of breath, rule out acute coronary syndrome -Acute on chronic diastolic congestive heart failure. Continue Lasix. Dr. Foley is following in cardiology consultation. -COPD exacerbation, continue bronchodilators, steroids, and oxygen supplementation. -Anemia, Dr. Mayes is following in gastroenterology consultation. -Alcoholic liver cirrhosis -Acute kidney injury on chronic kidney disease. Dr. Leung is following in nephrology consultation. -Bilateral lower extremities chronic venous stasis -Left foot plantar ulcer. Dr. Younger is following in podiatry consultation. -Obesity -Nicotine dependence, continue nicotine patch, cessation is strongly advised. -Continues alcohol use, cessation is strongly advised. -Poor medical compliance Further recommendations based on clinical course. Plan of care discussed with Dr. Lara. Result Diagram: 01/16/19 0603 01/16/19 0603 Results 24hrs Laboratory Tests Test 01/16/19 06:03 White Blood Count 15.6 H Red Blood Count 4.26 L Hemoglobin 9.1 L Hematocrit 33.5 L Mean Corpuscular Volume 78.6 L Mean Corpuscular Hemoglobin 21.4 L Mean Corpuscular Hemoglobin Concent 27.2 L Red Cell Distribution Width 23.3 H Platelet Count 165 Mean Platelet Volume Immature Granulocytes % 4.900 H Neutrophils % 60.1 Lymphocytes % 6.6 L Monocytes % 21.9 H Eosinophils % 5.5 Basophils % 1.0 Nucleated Red Blood Cells % 0.0 Immature Granulocytes # 0.770 H Neutrophils # 9.4 H Lymphocytes # 1.0 Monocytes # 3.4 H Eosinophils # 0.9 H Basophils # 0.2 H Nucleated Red Blood Cells # 0.0 Sodium Level 140 Potassium Level 4.5 Chloride Level 107 Carbon Dioxide Level 24 Anion Gap 9 Blood Urea Nitrogen 47 H Creatinine 1.67 H Est Glomerular Filtrat Rate mL/min 42 L Glucose Level 114 Calcium Level 9.0 Subjective 24 Hr Interval Summary Free Text/Dictation NAD lying in bed; seems comfortable no new events reported last night dw staff Constitutional: requiring O2 Eyes: no complaints ENT: no complaints Respiratory: no complaints Cardiovascular: no complaints Gastrointestinal: no complaints Genitourinary: no complaints Musculoskeletal: no complaints Skin: no complaints Exam/Review of Systems Exam Vitals Vital Signs Date Temp Pulse Resp B/P (MAP) Pulse Ox O2 O2 Flow FiO2 Time Delivery Rate 01/16/19 98.6 78 18 127/63 96 Room Air 14:15 (84) 01/15/19 21 20:20 01/14/19 2.0 05:37 Intake and Output 01/15/19 01/15/19 01/16/19 1515:00 23:00 07:00 IntakeIntake Total 300 ml 400 ml BalanceBalance 300 ml 400 ml Constitutional: alert, well developed, obese Psych: nl mood/affect Head: normocephalic Eyes: nl lids ENMT: nl external ears & nose Neck: non-tender Respiratory: diminished breath sounds Cardiovascular: nl pulses Gastrointestinal: soft, non-tender Musculoskeletal: muscle weakness Extremities: normal pulses Skin: other (chronic skin changes BLE ) Lymph: nontender Results Results 24hrs Laboratory Tests Test 01/16/19 06:03 White Blood Count 15.6 H Red Blood Count 4.26 L Hemoglobin 9.1 L Hematocrit 33.5 L Mean Corpuscular Volume 78.6 L Mean Corpuscular Hemoglobin 21.4 L Mean Corpuscular Hemoglobin Concent 27.2 L Red Cell Distribution Width 23.3 H Platelet Count 165 Mean Platelet Volume Immature Granulocytes % 4.900 H Neutrophils % 60.1 Lymphocytes % 6.6 L Monocytes % 21.9 H Eosinophils % 5.5 Basophils % 1.0 Nucleated Red Blood Cells % 0.0 Immature Granulocytes # 0.770 H Neutrophils # 9.4 H Lymphocytes # 1.0 Monocytes # 3.4 H Eosinophils # 0.9 H Basophils # 0.2 H Nucleated Red Blood Cells # 0.0 Sodium Level 140 Potassium Level 4.5 Chloride Level 107 Carbon Dioxide Level 24 Anion Gap 9 Blood Urea Nitrogen 47 H Creatinine 1.67 H Est Glomerular Filtrat Rate mL/min 42 L Glucose Level 114 Calcium Level 9.0 Medications Medication Current Medications IV Flush (NS 3 ml) 3 ml PER PROTOCOL IV ; Start 01/11/19 at 13:00 Ondansetron HCl (Zofran Inj) 4 mg Q6H PRN IV NAUSEA/VOMITING; Start 01/11/19 at 13:00 Acetaminophen (Tylenol Tab) 650 mg Q6H PRN PO .PAIN 1-3 OR TEMP; Start 01/11/19 at 13:00 Albuterol (Proventil 0.083% (Neb)) 2.5 mg Q6 PRN HHN shortness of breath; Star t 01/11/19 at 13:00 Spironolactone (Aldactone) 50 mg DAILY PO Last administered on 01/16/19 09:26; Admin Dose 50 MG; Start 01/12/19 at 09:00 Metoprolol Succinate (Toprol Xl) 50 mg DAILY PO Last administered on 01/16/19 09:26; Admin Dose 50 MG; Start 01/12/19 at 09:00 Lorazepam (Ativan) 0.5 mg Q6H PRN IV ANXIETY Last administered on 01/16/19 05:17; Admin Dose 0.5 MG; Start 01/11/19 at 23:00 Clonidine (Catapres) 0.1 mg Q6H PRN PO systolic BP > 160 Last administered on 01/12/19 21:31; Admin Dose 0.1 MG; Start 01/12/19 at 21:00 Levothyroxine Sodium (Synthroid) 225 mcg DAILY@06 PO Last administered on 01/16/19 05:15; Admin Dose 225 MCG; Start 01/13/19 at 06:00 Allopurinol (Zyloprim) 100 mg DAILY PO Last administered on 01/16/19 09:27; Admin Dose 100 MG; Start 01/13/19 at 09:00 Ascorbic Acid (Vitamin C) 500 mg DAILY PO Last administered on 01/16/19 09:26; Admin Dose 500 MG; Start 01/13/19 at 09:00 Docusate Sodium (Colace) 200 mg QHS PO Last administered on 01/15/19 21:01; Admin Dose 200 MG; Start 01/13/19 at 21:00 Epoetin Ghulam-epbx (RETACRIT(non-esrd)) 10,000 unit Q48H SC Last administered on 01/15/19 17:55; Admin Dose 10,000 UNIT; Start 01/13/19 at 18:00 Ferrous Sulfate (Ferrous Sulfate (Ec)) 325 mg DAILY PO Last administered on 01/16/19 09:26; Admin Dose 325 MG; Start 01/13/19 at 09:00 Folic Acid (Folic Acid) 1 mg DAILY PO Last administered on 01/16/19 09:31; Admin Dose 1 MG; Start 01/13/19 at 09:00 Gabapentin (Neurontin) 100 mg TID PO Last administered on 01/16/19 12:14; Admin Dose 100 MG; Start 01/13/19 at 09:00 Lactulose (Enulose) 20 gm BID PO Last administered on 01/14/19 20:37; Admin Dose 20 GM; Start 01/13/19 at 09:00 Lorazepam (Ativan) 1 mg BID PRN PO ANXIETY Last administered on 01/14/19 20:36; Admin Dose 1 MG; Start 01/13/19 at 06:30 Rifaximin (Xifaxan) 550 mg BID PO Last administered on 01/16/19 09:26; Admin Dose 550 MG; Start 01/13/19 at 09:00 Sodium Bicarbonate (Sodium Bicarbonate Tab) 325 mg TID PO Last administered on 01/16/19 12:14; Admin Dose 325 MG; Start 01/13/19 at 09:00 Tamsulosin HCl (Flomax) 0.4 mg HS PO Last administered on 01/15/19 21:01; Admin Dose 0.4 MG; Start 01/13/19 at 21:00 Thiamine HCl (Vitamin B1) 100 mg DAILY PO Last administered on 01/16/19 09:26; Admin Dose 100 MG; Start 01/13/19 at 09:00 Arformoterol Tartrate (Brovana (Neb)) 2 ml BID RESP THERAPY INH Last administered on 01/15/19 20:20; Admin Dose 2 ML; Start 01/13/19 at 09:00 Budesonide (Pulmicort (Neb)) 0.5 mg Q12H RESP THERAPY INH Last administered on 01/15/19 20:20; Admin Dose 0.5 MG; Start 01/13/19 at 09:00 Dorzolamide/ Timolol (Cosopt Pf Eye Drops) 1 drop BID BOTH EYES Last administered on 01/16/19 09:27; Admin Dose 1 DROP; Start 01/13/19 at 11:30 Nicotine (Nicoderm 21 Mg/ 24hr) 1 patch DAILY TRANSDERM Last administered on 01/16/19 09:31; Admin Dose 1 PATCH; Start 01/14/19 at 09:00 Famotidine (Pepcid) 20 mg Q12 PO Last administered on 01/16/19 09:26; Admin Dose 20 MG; Start 01/13/19 at 21:00 Amlodipine Besylate (Norvasc) 5 mg DAILY PO Last administered on 01/16/19 09:25; Admin Dose 5 MG; Start 01/15/19 at 09:00 Hydromorphone HCl (Dilaudid) 1.5 mg Q4H PRN IV SEVERE PAIN LEVEL 7-10 Last administered on 01/16/19 12:14; Admin Dose 1.5 MG; Start 01/15/19 at 05:30 Doxycycline Hyclate (Vibramycin) 100 mg 0800,1999 PO Last administered on 01/16/19 09:33; Admin Dose 100 MG; Start 01/15/19 at 20:00 Furosemide (Lasix) 20 mg DAILY PO Last administered on 01/16/19 09:26; Admin Dose 20 MG; Start 01/16/19 at 09:00 Acetaminophen/ Hydrocodone Bitart ([place] (5/325)) 1 tab Q4H PRN PO PAIN Last administered on 01/16/19 09:26; Admin Dose 1 TAB; Start 01/16/19 at 01:00 Buspirone HCl (Buspar) 10 mg BID PO Last administered on 01/16/19 14:02; Admin Dose 10 MG; Start 01/16/19 at 12:30 GO LAMBERT Jan 16, 2019 15:17
--- NOTE | 2019-01-16 17:59 | CONS ---
Assessment/Plan Assessment/Plan Hospital Course (Demo Recall) IMPRESSION: 1. Congestive heart failure exacerbation, diastolic, acute on chronic. 2. Hypertension-mildly elavated 3. Shortness of breath secondary to congestive heart failure exacerbation, d iastolic, acute on chronic. 4. Chronic renal failure. 5. Cirrhosis. 6. Ascites, recurrent. 7. Hypothyroidism. 8. History of ETOH abuse. 9. Anemia. REcc: -Tele -serial ecg's -Contineu lasix/aldactone and follow volume status closely and ascites -Continue toprol and now CCB -Continue lactulose -pain control Consultation Date/Type/Reason Admit Date/Time Jan 11, 2019 at 09:53 Initial Consult Date 01/12/19 Type of Consult Cardiology Reason for Consultation CHF Requesting Provider: KOKO MARLOW MD Date/Time of Note DATE: 01/16/19 TIME: 17:57 Exam/Review of Systems Vital Signs Vitals Vital Signs Date Temp Pulse Resp B/P (MAP) Pulse Ox O2 O2 Flow FiO2 Time Delivery Rate 01/16/19 98.6 78 18 127/63 96 Room Air 14:15 (84) 01/15/19 21 20:20 01/14/19 2.0 05:37 Intake and Output 01/15/19 01/15/19 01/16/19 1515:00 23:00 07:00 IntakeIntake Total 300 ml 400 ml BalanceBalance 300 ml 400 ml Exam Exam Review of Systems: CONSTITUTIONAL: No fevers, chills. PULMONARY: No sob CARDIOVASCULAR: No chest pain/palpitations GASTROINTESTINAL: No nausea/vomiting. GENITOURINARY: No hematuria/dysuria. MUSCULOSKELETAL: No myagias/arthalgias. PSYCHIATRIC: The patient denies depression. NEUROLOGIC: No weakness Constitutional: alert, oriented Psych: no complaints Head: normocephalic ENMT: mucosa pink and moist Neck: supple Respiratory: clear to auscultation (at bases/B) Cardiovascular: regular rate and rhythm Gastrointestinal: soft, non-tender, ascites Musculoskeletal: muscle tone (normal) Extremities: pitting pedal edema (trace/B) Neurological: other (no focal deficits) Labs Result Diagram: 01/16/19 0603 01/16/19 0603 Results 24hrs Laboratory Tests Test 01/16/19 06:03 White Blood Count 15.6 H Red Blood Count 4.26 L Hemoglobin 9.1 L Hematocrit 33.5 L Mean Corpuscular Volume 78.6 L Mean Corpuscular Hemoglobin 21.4 L Mean Corpuscular Hemoglobin Concent 27.2 L Red Cell Distribution Width 23.3 H Platelet Count 165 Mean Platelet Volume Immature Granulocytes % 4.900 H Neutrophils % 60.1 Lymphocytes % 6.6 L Monocytes % 21.9 H Eosinophils % 5.5 Basophils % 1.0 Nucleated Red Blood Cells % 0.0 Immature Granulocytes # 0.770 H Neutrophils # 9.4 H Lymphocytes # 1.0 Monocytes # 3.4 H Eosinophils # 0.9 H Basophils # 0.2 H Nucleated Red Blood Cells # 0.0 Sodium Level 140 Potassium Level 4.5 Chloride Level 107 Carbon Dioxide Level 24 Anion Gap 9 Blood Urea Nitrogen 47 H Creatinine 1.67 H Est Glomerular Filtrat Rate mL/min 42 L Glucose Level 114 Calcium Level 9.0 Medications Medications Current Medications IV Flush (NS 3 ml) 3 ml PER PROTOCOL IV ; Start 01/11/19 at 13:00 Ondansetron HCl (Zofran Inj) 4 mg Q6H PRN IV NAUSEA/VOMITING; Start 01/11/19 at 13:00 Acetaminophen (Tylenol Tab) 650 mg Q6H PRN PO .PAIN 1-3 OR TEMP; Start 01/11/19 at 13:00 Albuterol (Proventil 0.083% (Neb)) 2.5 mg Q6 PRN HHN shortness of breath; Start 01/11/19 at 13:00 Spironolactone (Aldactone) 50 mg DAILY PO Last administered on 01/16/19at 09:26; Admin Dose 50 MG; Start 01/12/19 at 09:00 Metoprolol Succinate (Toprol Xl) 50 mg DAILY PO Last administered on 01/16/19 09:26; Admin Dose 50 MG; Start 01/12/19 at 09:00 Lorazepam (Ativan) 0.5 mg Q6H PRN IV ANXIETY Last administered on 01/16/19at 05:17; Admin Dose 0.5 MG; Start 01/11/19 at 23:00 Clonidine (Catapres) 0.1 mg Q6H PRN PO systolic BP > 160 Last administered on 01/12/19at 21:31; Admin Dose 0.1 MG; Start 01/12/19 at 21:00 Levothyroxine Sodium (Synthroid) 225 mcg DAILY@06 PO Last administered on 01/16/19 05:15; Admin Dose 225 MCG; Start 01/13/19 at 06:00 Allopurinol (Zyloprim) 100 mg DAILY PO Last administered on 01/16/19 09:27; Admin Dose 100 MG; Start 01/13/19 at 09:00 Ascorbic Acid (Vitamin C) 500 mg DAILY PO Last administered on 01/16/19 09:26; Admin Dose 500 MG; Start 01/13/19 at 09:00 Docusate Sodium (Colace) 200 mg QHS PO Last administered on 01/15/19 21:01; Admin Dose 200 MG; Start 01/13/19 at 21:00 Epoetin Ghulam-epbx (RETACRIT(non-esrd)) 10,000 unit Q48H SC Last administered on 01/15/19 17:55; Admin Dose 10,000 UNIT; Start 01/13/19 at 18:00 Ferrous Sulfate (Ferrous Sulfate (Ec)) 325 mg DAILY PO Last administered on 01/16/19 09:26; Admin Dose 325 MG; Start 01/13/19 at 09:00 Folic Acid (Folic Acid) 1 mg DAILY PO Last administered on 01/16/19 09:31; Admin Dose 1 MG; Start 01/13/19 at 09:00 Gabapentin (Neurontin) 100 mg TID PO Last administered on 01/16/19 12:14; Admin Dose 100 MG; Start 01/13/19 at 09:00 Lactulose (Enulose) 20 gm BID PO Last administered on 01/14/19 20:37; Admin Dose 20 GM; Start 01/13/19 at 09:00 Lorazepam (Ativan) 1 mg BID PRN PO ANXIETY Last administered on 01/14/19 20:36; Admin Dose 1 MG; Start 01/13/19 at 06:30 Rifaximin (Xifaxan) 550 mg BID PO Last administered on 01/16/19 09:26; Admin Dose 550 MG; Start 01/13/19 at 09:00 Sodium Bicarbonate (Sodium Bicarbonate Tab) 325 mg TID PO Last administered on 01/16/19 12:14; Admin Dose 325 MG; Start 01/13/19 at 09:00 Tamsulosin HCl (Flomax) 0.4 mg HS PO Last administered on 01/15/19 21:01; Admin Dose 0.4 MG; Start 01/13/19 at 21:00 Thiamine HCl (Vitamin B1) 100 mg DAILY PO Last administered on 01/16/19 09:26; Admin Dose 100 MG; Start 01/13/19 at 09:00 Arformoterol Tartrate (Brovana (Neb)) 2 ml BID RESP THERAPY INH Last administered on 01/15/19 20:20; Admin Dose 2 ML; Start 01/13/19 at 09:00 Budesonide (Pulmicort (Neb)) 0.5 mg Q12H RESP THERAPY INH Last administered on 01/15/19 20:20; Admin Dose 0.5 MG; Start 01/13/19 at 09:00 Dorzolamide/ Timolol (Cosopt Pf Eye Drops) 1 drop BID BOTH EYES Last administered on 01/16/19 09:27; Admin Dose 1 DROP; Start 01/13/19 at 11:30 Nicotine (Nicoderm 21 Mg/ 24hr) 1 patch DAILY TRANSDERM Last administered on 01/16/19 09:31; Admin Dose 1 PATCH; Start 01/14/19 at 09:00 Famotidine (Pepcid) 20 mg Q12 PO Last administered on 01/16/19 09:26; Admin Dose 20 MG; Start 01/13/19 at 21:00 Amlodipine Besylate (Norvasc) 5 mg DAILY PO Last administered on 01/16/19 09:25; Admin Dose 5 MG; Start 01/15/19 at 09:00 Hydromorphone HCl (Dilaudid) 1.5 mg Q4H PRN IV SEVERE PAIN LEVEL 7-10 Last administered on 01/16/19 16:56; Admin Dose 1.5 MG; Start 01/15/19 at 05:30 Doxycycline Hyclate (Vibramycin) 100 mg 0800,2000 PO Last administered on 01/16/19 09:33; Admin Dose 100 MG; Start 01/15/19 at 20:00 Furosemide (Lasix) 20 mg DAILY PO Last administered on 01/16/19 09:26; Admin Dose 20 MG; Start 01/16/19 at 09:00 Acetaminophen/ Hydrocodone Bitart ([place] (5/325)) 1 tab Q4H PRN PO PAIN Last administered on 01/16/19at 09:26; Admin Dose 1 TAB; Start 01/16/19 at 01:00 Buspirone HCl (Buspar) 10 mg BID PO Last administered on 01/16/19at 14:02; Admin Dose 10 MG; Start 01/16/19 at 12:30 DUSTY CANTU Jan 16, 2019 17:59
[2019-01-16 20:15] VITALS: BP 157/68; PULSE 76; RESP 18
[2019-01-16] MEDS: DOCUSATE SODIUM 100 MG CAP PO SCH (20:27)
[2019-01-16] MEDS: TAMSULOSIN (SR) 0.4 MG CAP PO SCH (20:27)
[2019-01-17] MEDS: HYDROCODONE/APAP (5/325) TAB PO PRN ×4 (00:41→23:59)
[2019-01-17] MEDS: HYDROmorphONE 1 MG/ML SYG IV PRN ×5 (01:36→20:57)
[2019-01-17 02:14] VITALS: BP 153/73; PULSE 83; RESP 18
[2019-01-17] MEDS: LORAZEPAM 2 MG INJ IV PRN ×3 (03:16→18:01)
[2019-01-17] MEDS: LEVOTHYROXINE 75 MCG TAB PO SCH (05:52)
[2019-01-17 07:25] VITALS: BP 153/67; PULSE 86; RESP 18
[2019-01-17] MEDS: BUDESONIDE (NEB) 0.5MG/2ML AMP INH SCH ×2 (08:00→20:33)
[2019-01-17] MEDS: NA BICARBONATE 650 MG TAB PO SCH ×3 (09:00→20:44)
[2019-01-17] MEDS: NICOTINE (21 MG/24 HR) PATCH TRANSDERM SCH (09:00)
[2019-01-17] MEDS: GABAPENTIN 100 MG CAP PO SCH ×3 (09:00→20:44)
[2019-01-17] MEDS: ARFORMOTEROL TARTRATE 15MCG/2 ML AMP INH SCH ×2 (09:45→20:33)
--- NOTE | 2019-01-17 11:18 | CONS ---
Assessment/Plan Assessment/Plan Assessment/Plan (Daily) 1. acute on chronic renal failure due to Type II hepatorenal syndrome 2. SIRS 3. anemia of CKD 5. Decompensated Liver cirrhosis with Symptomatic ascites 6. H/O HTN 7. h/o Liver cirrhosis with ascites 8. H/o Diastolic CHF 9. Bilateral LE chronic venous stasis Plan: Continue IV abx as per ID , renally dose all abx , monitor electorlytes and replace as needed, BUN/Cr 47/1.67-Electrolyte stable today , change lasix to 20mg po daily, , spironolactone 50mg po daily , Toprol Xl 50mg po daily on Sodium bicarbonte 325mg PO TID will follow up Consultation Date/Type/Reason Admit Date/Time Jan 11, 2019 at 09:53 Initial Consult Date 01/11/19 Type of Consult Nephrology Requesting Provider: KOKO MARLOW MD Date/Time of Note DATE: 01/17/19 TIME: 11:18 Exam/Review of Systems Exam Vitals Vital Signs Date Temp Pulse Resp B/P (MAP) Pulse Ox O2 O2 Flow FiO2 Time Delivery Rate 01/17/19 98.5 86 18 153/67 94 Room Air 07:25 (95) 01/16/19 21 20:32 01/14/19 2.0 05:37 Intake and Output 01/16/19 01/16/19 01/17/19 1515:00 23:00 07:00 IntakeIntake Total 800 ml 350 ml 1100 ml OutputOutput Total 1100 ml 600 ml 300 ml BalanceBalance -300 ml -250 ml 800 ml Results Result Diagram: 01/16/19 0603 01/16/19 0603 Medications Medication Current Medications IV Flush (NS 3 ml) 3 ml PER PROTOCOL IV ; Start 01/11/19 at 13:00 Ondansetron HCl (Zofran Inj) 4 mg Q6H PRN IV NAUSEA/VOMITING; Start 01/11/19 at 13:00 Acetaminophen (Tylenol Tab) 650 mg Q6H PRN PO .PAIN 1-3 OR TEMP; Start 01/11/19 at 13:00 Albuterol (Proventil 0.083% (Neb)) 2.5 mg Q6 PRN HHN shortness of breath; Start 01/11/19 at 13:00 Spironolactone (Aldactone) 50 mg DAILY PO Last administered on 01/16/19 09:26; Admin Dose 50 MG; Start 01/12/19 at 09:00 Metoprolol Succinate (Toprol Xl) 50 mg DAILY PO Last administered on 01/16/19 09:26; Admin Dose 50 MG; Start 01/12/19 at 09:00 Lorazepam (Ativan) 0.5 mg Q6H PRN IV ANXIETY Last administered on 01/17/19 09:25; Admin Dose 0.5 MG; Start 01/11/19 at 23:00 Clonidine (Catapres) 0.1 mg Q6H PRN PO systolic BP > 160 Last administered on 01/12/19 21:31; Admin Dose 0.1 MG; Start 01/12/19 at 21:00 Levothyroxine Sodium (Synthroid) 225 mcg DAILY@06 PO Last administered on 01/17/19 05:52; Admin Dose 225 MCG; Start 01/13/19 at 06:00 Allopurinol (Zyloprim) 100 mg DAILY PO Last administered on 01/16/19 09:27; Admin Dose 100 MG; Start 01/13/19 at 09:00 Ascorbic Acid (Vitamin C) 500 mg DAILY PO Last administered on 01/16/19 09:26; Admin Dose 500 MG; Start 01/13/19 at 09:00 Docusate Sodium (Colace) 200 mg QHS PO Last administered on 01/16/19 20:27; Admin Dose 200 MG; Start 01/13/19 at 21:00 Epoetin Ghulam-epbx (RETACRIT(non-esrd)) 10,000 unit Q48H SC Last administered on 01/15/19 17:55; Admin Dose 10,000 UNIT; Start 01/13/19 at 18:00 Ferrous Sulfate (Ferrous Sulfate (Ec)) 325 mg DAILY PO Last administered on 01/16/19 09:26; Admin Dose 325 MG; Start 01/13/19 at 09:00 Folic Acid (Folic Acid) 1 mg DAILY PO Last administered on 01/16/19 09:31; Admin Dose 1 MG; Start 01/13/19 at 09:00 Gabapentin (Neurontin) 100 mg TID PO Last administered on 01/16/19 20:27; A dmin Dose 100 MG; Start 01/13/19 at 09:00 Lactulose (Enulose) 20 gm BID PO Last administered on 01/16/19 20:33; Admin Dose 20 GM; Start 01/13/19 at 09:00 Lorazepam (Ativan) 1 mg BID PRN PO ANXIETY Last administered on 01/14/19 20:36; Admin Dose 1 MG; Start 01/13/19 at 06:30 Rifaximin (Xifaxan) 550 mg BID PO Last administered on 01/16/19 20:27; Admin Dose 550 MG; Start 01/13/19 at 09:00 Sodium Bicarbonate (Sodium Bicarbonate Tab) 325 mg TID PO Last administered on 01/16/19 20:27; Admin Dose 325 MG; Start 01/13/19 at 09:00 Tamsulosin HCl (Flomax) 0.4 mg HS PO Last administered on 01/16/19 20:27; Admin Dose 0.4 MG; Start 01/13/19 at 21:00 Thiamine HCl (Vitamin B1) 100 mg DAILY PO Last administered on 01/16/19 09:26; Admin Dose 100 MG; Start 01/13/19 at 09:00 Arformoterol Tartrate (Brovana (Neb)) 2 ml BID RESP THERAPY INH Last administered on 01/17/19 09:45; Admin Dose 2 ML; Start 01/13/19 at 09:00 Budesonide (Pulmicort (Neb)) 0.5 mg Q12H RESP THERAPY INH Last administered on 01/17/19 08:00; Admin Dose 0.5 MG; Start 01/13/19 at 09:00 Dorzolamide/ Timolol (Cosopt Pf Eye Drops) 1 drop BID BOTH EYES Last administered on 01/16/19 20:27; Admin Dose 1 DROP; Start 01/13/19 at 11:30 Nicotine (Nicoderm 21 Mg/ 24hr) 1 patch DAILY TRANSDERM Last administered on 01/16/19 09:31; Admin Dose 1 PATCH; Start 01/14/19 at 09:00 Famotidine (Pepcid) 20 mg Q12 PO Last administered on 01/16/19 20:27; Admin Dose 20 MG; Start 01/13/19 at 21:00 Amlodipine Besylate (Norvasc) 5 mg DAILY PO Last administered on 01/16/19 09:25; Admin Dose 5 MG; Start 01/15/19 at 09:00 Hydromorphone HCl (Dilaudid) 1.5 mg Q4H PRN IV SEVERE PAIN LEVEL 7-10 Last administered on 01/17/19 05:52; Admin Dose 1.5 MG; Start 01/15/19 at 05:30 Doxycycline Hyclate (Vibramycin) 100 mg 0800,2000 PO Last administered on 01/16/19 20:49; Admin Dose 100 MG; Start 01/15/19 at 20:00 Furosemide (Lasix) 20 mg DAILY PO Last administered on 01/16/19 09:26; Admin Dose 20 MG; Start 01/16/19 at 09:00 Acetaminophen/ Hydrocodone Bitart ([place] (5/325)) 1 tab Q4H PRN PO PAIN Last administered on 01/17/19 08:01; Admin Dose 1 TAB; Start 01/16/19 at 01:00 Buspirone HCl (Buspar) 10 mg BID PO Last administered on 01/16/19 20:27; Admin Dose 10 MG; Start 01/16/19 at 12:30 ELADIO DELGADO MD Jan 17, 2019 11:18
[2019-01-17] MEDS: ASCORBIC ACID 500 MG TAB PO SCH (13:47)
[2019-01-17] MEDS: RIFAXIMIN 550 MG TAB PO SCH ×2 (13:47→20:44)
[2019-01-17] MEDS: LACTULOSE 30ML CUP PO SCH ×2 (13:47→20:44)
[2019-01-17] MEDS: DOXYCYCLINE 100 MG TAB PO SCH ×2 (13:48→20:44)
[2019-01-17] MEDS: DORZOLAMIDE/TIMOLOL/PF 0.2 ML DROPERETTE BOTH EYES SCH ×2 (13:48→20:44)
[2019-01-17] MEDS: FOLIC ACID 1 MG TAB PO SCH (13:49)
[2019-01-17] MEDS: FERROUS SULFATE (EC) 325 MG TAB PO SCH (13:49)
[2019-01-17] MEDS: FAMOTIDINE 20 MG TAB PO SCH ×2 (13:49→20:44)
[2019-01-17] MEDS: THIAMINE 100 MG TAB PO SCH (13:50)
[2019-01-17] MEDS: ALLOPURINOL 100 MG TAB PO SCH (13:50)
[2019-01-17] MEDS: BUSPIRONE 10 MG TAB PO SCH ×2 (13:50→20:44)
[2019-01-17] MEDS: SPIRONOLACTONE 50 MG TAB PO SCH (13:54)
[2019-01-17] MEDS: FUROSEMIDE 20 MG TAB PO SCH (13:54)
[2019-01-17] MEDS: METOPROLOL (XL) 50 MG TAB PO SCH (13:57)
[2019-01-17] MEDS: AMLODIPINE 5 MG TAB PO SCH (13:58)
--- NOTE | 2019-01-17 14:08 | CONS ---
Assessment/Plan Assessment/Plan Assessment/Plan (Daily) Interval hx: Pain improved with increase of dilaudid to 1mg. Denies nausea. Denies melena or hematochezia. EAting well. continues to refuse colonoscopy 1. Microcytic hypochromic anemia, most probably related to iron deficiency. -anemia work up from previous visit last week noted. NEG FOB -EGD done April 2018 showed duodenal ulcer and gastritis -hgb stable 2. 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 -US on 01/07 did not ascites 3. Nicotine dependence 4. Congestive heart failure. -EF of 60% 5. Chronic obstructive pulmonary disease. 6. Renal failure. PLAN: Pain management Pt needs EGD and colonoscopy, particularly colonoscopy. Spoke with patient again who continues to refuse procedures. Continue pepcid, lasix and aldactone We will proceed with a colonoscopy if patient agrees Patient wants to wait for a few days before colonoscopy Consultation Date/Type/Reason Admit Date/Time Jan 11, 2019 at 09:53 Initial Consult Date 01/12/19 Requesting Provider: KOKO MARLOW MD Date/Time of Note DATE: 01/17/19 TIME: 14:07 24 HR Interval Summary Constitutional: improved Exam/Review of Systems Exam Vitals Vital Signs Date Temp Pulse Resp B/P (MAP) Pulse Ox O2 O2 Flow FiO2 Time Delivery Rate 01/17/19 98.5 86 18 153/67 94 Room Air 07:25 (95) 01/16/19 21 20:32 01/14/19 2.0 05:37 Intake and Output 01/16/19 01/16/19 01/17/19 1515:00 23:00 07:00 IntakeIntake Total 800 ml 350 ml 1100 ml OutputOutput Total 1100 ml 600 ml 300 ml BalanceBalance -300 ml -250 ml 800 ml Constitutional: alert, oriented, well developed Psych: no complaints, nl mood/affect Head: normocephalic, atraumatic Eyes: nl conjunctiva, EOMI, nl lids, nl sclera, PERRL ENMT: nl external ears & nose, nl lips & teeth, nl nasal mucosa & septum Neck: supple, non-tender Respiratory: clear to auscultation, normal air movement Cardiovascular: regular rate and rhythm, nl pulses Gastrointestinal: soft, nl liver, spleen, non-tender Musculoskeletal: nl extremities to inspection, nl gait and stance Extremities: normal pulses Neurological: [employer]END[employer] II-XII intact, nl mental status, nl speech, nl strength Skin: nl turgor; No rash or lesions Lymph: nl lymph nodes Results Result Diagram: 01/16/1960201/16/19602 Medications Medication Current Medications IV Flush (NS 3 ml) 3 ml PER PROTOCOL IV ; Start 01/11/19 at 13:00 Ondansetron HCl (Zofran Inj) 4 mg Q6H PRN IV NAUSEA/VOMITING; Start 01/11/19 at 13:00 Acetaminophen (Tylenol Tab) 650 mg Q6H PRN PO .PAIN 1-3 OR TEMP; Start 01/11/19 at 13:00 Albuterol (Proventil 0.083% (Neb)) 2.5 mg Q6 PRN HHN shortness of breath; Start 01/11/19 at 13:00 Spironolactone (Aldactone) 50 mg DAILY PO Last administered on 01/17/19at 13:54; Admin Dose 50 MG; Start 01/12/19 at 09:00 Metoprolol Succinate (Toprol Xl) 50 mg DAILY PO Last administered on 01/17/19 13:57; Admin Dose 50 MG; Start 01/12/19 at 09:00 Lorazepam (Ativan) 0.5 mg Q6H PRN IV ANXIETY Last administered on 01/17/19 09:25; Admin Dose 0.5 MG; Start 01/11/19 at 23:00 Clonidine (Catapres) 0.1 mg Q6H PRN PO systolic BP > 160 Last administered on 01/12/19at 21:31; Admin Dose 0.1 MG; Start 01/12/19 at 21:00 Levothyroxine Sodium (Synthroid) 225 mcg DAILY@06 PO Last administered on 01/17/19 05:52; Admin Dose 225 MCG; Start 01/13/19 at 06:00 Allopurinol (Zyloprim) 100 mg DAILY PO Last administered on 01/17/19 13:50; Admin Dose 100 MG; Start 01/13/19 at 09:00 Ascorbic Acid (Vitamin C) 500 mg DAILY PO Last administered on 01/17/19 13:47; Admin Dose 500 MG; Start 01/13/19 at 09:00 Docusate Sodium (Colace) 200 mg QHS PO Last administered on 01/16/19 20:27; Admin Dose 200 MG; Start 01/13/19 at 21:00 Epoetin Ghulam-epbx (RETACRIT(non-esrd)) 10,000 unit Q48H SC Last administered on 01/15/19 17:55; Admin Dose 10,000 UNIT; Start 01/13/19 at 18:00 Ferrous Sulfate (Ferrous Sulfate (Ec)) 325 mg DAILY PO Last administered on 01/17/19 13:49; Admin Dose 325 MG; Start 01/13/19 at 09:00 Folic Acid (Folic Acid) 1 mg DAILY PO Last administered on 01/17/19 13:49; Admin Dose 1 MG; Start 01/13/19 at 09:00 Gabapentin (Neurontin) 100 mg TID PO Last administered on 01/17/19 13:56; Admin Dose 100 MG; Start 01/13/19 at 09:00 Lactulose (Enulose) 20 gm BID PO Last administered on 01/17/19 13:47; Admin Dose 20 GM; Start 01/13/19 at 09:00 Lorazepam (Ativan) 1 mg BID PRN PO ANXIETY Last administered on 01/14/19 20:36; Admin Dose 1 MG; Start 01/13/19 at 06:30 Rifaximin (Xifaxan) 550 mg BID PO Last administered on 01/17/19 13:47; Admin Dose 550 MG; Start 01/13/19 at 09:00 Sodium Bicarbonate (Sodium Bicarbonate Tab) 325 mg TID PO Last administered on 01/17/19 13:56; Admin Dose 325 MG; Start 01/13/19 at 09:00 Tamsulosin HCl (Flomax) 0.4 mg HS PO Last administered on 01/16/19 20:27; Admin Dose 0.4 MG; Start 01/13/19 at 21:00 Thiamine HCl (Vitamin B1) 100 mg DAILY PO Last administered on 01/17/19 13:50; Admin Dose 100 MG; Start 01/13/19 at 09:00 Arformoterol Tartrate (Brovana (Neb)) 2 ml BID RESP THERAPY INH Last administered on 01/17/19 09:45; Admin Dose 2 ML; Start 01/13/19 at 09:00 Budesonide (Pulmicort (Neb)) 0.5 mg Q12H RESP THERAPY INH Last administered on 01/17/19 08:00; Admin Dose 0.5 MG; Start 01/13/19 at 09:00 Dorzolamide/ Timolol (Cosopt Pf Eye Drops) 1 drop BID BOTH EYES Last administered on 01/17/19 13:48; Admin Dose 1 DROP; Start 01/13/19 at 11:30 Nicotine (Nicoderm 21 Mg/ 24hr) 1 patch DAILY TRANSDERM Last administered on 01/16/19 09:31; Admin Dose 1 PATCH; Start 01/14/19 at 09:00 Famotidine (Pepcid) 20 mg Q12 PO Last administered on 01/17/19 13:49; Admin Dose 20 MG; Start 01/13/19 at 21:00 Amlodipine Besylate (Norvasc) 5 mg DAILY PO Last administered on 01/17/19 13:58; Admin Dose 5 MG; Start 01/15/19 at 09:00 Hydromorphone HCl (Dilaudid) 1.5 mg Q4H PRN IV SEVERE PAIN LEVEL 7-10 Last administered on 01/17/19 12:50; Admin Dose 1.5 MG; Start 01/15/19 at 05:30 Doxycycline Hyclate (Vibramycin) 100 mg 0800,1999 PO Last administered on 01/17/19 13:48; Admin Dose 100 MG; Start 01/15/19 at 20:00 Furosemide (Lasix) 20 mg DAILY PO Last administered on 01/17/19 13:54; Admin Dose 20 MG; Start 01/16/19 at 09:00 Acetaminophen/ Hydrocodone Bitart ([place] (5/325)) 1 tab Q4H PRN PO PAIN Last administered on 01/17/19 08:01; Admin Dose 1 TAB; Start 01/16/19 at 01:00 Buspirone HCl (Buspar) 10 mg BID PO Last administered on 01/17/19 13:50; Admin Dose 10 MG; Start 01/16/19 at 12:30 CHLOÉ TORRE MD Jan 17, 2019 14:08
[2019-01-17 14:14] VITALS: BP 143/61; PULSE 86; RESP 18
--- NOTE | 2019-01-17 16:09 | CONS ---
Consultation Date/Type/Reason Admit Date/Time Jan 11, 2019 at 09:53 Initial Consult Date SUBJECTIVE: Pt is awake, afebrile, looks comfortable. VS: stable T: 98.0 LABS: Reviewed. Antimicrobials: Doxycycline Physical examination: GEN: This is a wasted well-developed ,chronically ill-appearing ,elderly man who is in no distress. HENT: Head atraumatic normocephalic, sclera nonicteric. Neck is supple PULM: chest rise symmetrical, breath sounds diminished bases. Heart: S1-S2. Abdomen: soft bowel sounds present. Extremities without BLE edema, mild erythema, no cyanosis. Assessment: 1. Systemic inflammatory response syndrome 2. S/p COPD exacerbation 3. Alcohol abuse 4. Bilateral lower extremities chronic venous stasis 5. Cirrhosis with recurrent ascites 6. Chronic kidney disease 7. CHF 8. Noncompliance Plan: Pt remains to be stable and unchanged. Will continue current antbx treatment. GI/renal rec-s Requesting Provider: KOKO MARLOW MD Date/Time of Note DATE: 01/17/19 TIME: 16:06 Exam/Review of Systems Exam Vitals Vital Signs Date Temp Pulse Resp B/P (MAP) Pulse Ox O2 O2 Flow FiO2 Time Delivery Rate 01/17/19 98.0 86 18 143/61 97 Room Air 14:14 (88) 01/16/19 21 20:32 01/14/19 2.0 05:37 Intake and Output 01/16/19 01/16/19 01/17/19 1515:00 23:00 07:00 IntakeIntake Total 800 ml 350 ml 1100 ml OutputOutput Total 1100 ml 600 ml 300 ml BalanceBalance -300 ml -250 ml 800 ml Results Result Diagram: 01/16/19 0603 01/16/19 0603 Medications Medication Current Medications IV Flush (NS 3 ml) 3 ml PER PROTOCOL IV ; Start 01/11/19 at 13:00 Ondansetron HCl (Zofran Inj) 4 mg Q6H PRN IV NAUSEA/VOMITING; Start 01/11/19 at 13:00 Acetaminophen (Tylenol Tab) 650 mg Q6H PRN PO .PAIN 1-3 OR TEMP; Start 01/11/19 at 13:00 Albuterol (Proventil 0.083% (Neb)) 2.5 mg Q6 PRN HHN shortness of breath; Start 01/11/19 at 13:00 Spironolactone (Aldactone) 50 mg DAILY PO Last administered on 01/17/19 13:54; Admin Dose 50 MG; Start 01/12/19 at 09:00 Metoprolol Succinate (Toprol Xl) 50 mg DAILY PO Last administered on 01/17/19 13:57; Admin Dose 50 MG; Start 01/12/19 at 09:00 Lorazepam (Ativan) 0.5 mg Q6H PRN IV ANXIETY Last administered on 01/17/19 09:25; Admin Dose 0.5 MG; Start 01/11/19 at 23:00 Clonidine (Catapres) 0.1 mg Q6H PRN PO systolic BP > 160 Last administered on 01/12/19 21:31; Admin Dose 0.1 MG; Start 01/12/19 at 21:00 Levothyroxine Sodium (Synthroid) 225 mcg DAILY@06 PO Last administered on 01/17/19 05:52; Admin Dose 225 MCG; Start 01/13/19 at 06:00 Allopurinol (Zyloprim) 100 mg DAILY PO Last administered on 01/17/19 13:50; Admin Dose 100 MG; Start 01/13/19 at 09:00 Ascorbic Acid (Vitamin C) 500 mg DAILY PO Last administered on 01/17/19 13:47; Admin Dose 500 MG; Start 01/13/19 at 09:00 Docusate Sodium (Colace) 200 mg QHS PO Last administered on 01/16/19 20:27; A dmin Dose 200 MG; Start 01/13/19 at 21:00 Epoetin Ghulam-epbx (RETACRIT(non-esrd)) 10,000 unit Q48H SC Last administered on 01/15/19 17:55; Admin Dose 10,000 UNIT; Start 01/13/19 at 18:00 Ferrous Sulfate (Ferrous Sulfate (Ec)) 325 mg DAILY PO Last administered on 01/17/19 13:49; Admin Dose 325 MG; Start 01/13/19 at 09:00 Folic Acid (Folic Acid) 1 mg DAILY PO Last administered on 01/17/19 13:49; A dmin Dose 1 MG; Start 01/13/19 at 09:00 Gabapentin (Neurontin) 100 mg TID PO Last administered on 01/17/19 13:56; Admin Dose 100 MG; Start 01/13/19 at 09:00 Lactulose (Enulose) 20 gm BID PO Last administered on 01/17/19 13:47; Admin Dose 20 GM; Start 01/13/19 at 09:00 Lorazepam (Ativan) 1 mg BID PRN PO ANXIETY Last administered on 01/14/19 20:36; Admin Dose 1 MG; Start 01/13/19 at 06:30 Rifaximin (Xifaxan) 550 mg BID PO Last administered on 01/17/19 13:47; Admin Dose 550 MG; Start 01/13/19 at 09:00 Sodium Bicarbonate (Sodium Bicarbonate Tab) 325 mg TID PO Last administered on 01/17/19 13:56; Admin Dose 325 MG; Start 01/13/19 at 09:00 Tamsulosin HCl (Flomax) 0.4 mg HS PO Last administered on 01/16/19 20:27; Admin Dose 0.4 MG; Start 01/13/19 at 21:00 Thiamine HCl (Vitamin B1) 100 mg DAILY PO Last administered on 01/17/19 13:50; Admin Dose 100 MG; Start 01/13/19 at 09:00 Arformoterol Tartrate (Brovana (Neb)) 2 ml BID RESP THERAPY INH Last administered on 01/17/19 09:45; Admin Dose 2 ML; Start 01/13/19 at 09:00 Budesonide (Pulmicort (Neb)) 0.5 mg Q12H RESP THERAPY INH Last administered on 01/17/19 08:00; Admin Dose 0.5 MG; Start 01/13/19 at 09:00 Dorzolamide/ Timolol (Cosopt Pf Eye Drops) 1 drop BID BOTH EYES Last administered on 01/17/19 13:48; Admin Dose 1 DROP; Start 01/13/19 at 11:30 Nicotine (Nicoderm 21 Mg/ 24hr) 1 patch DAILY TRANSDERM Last administered on 01/16/19 09:31; Admin Dose 1 PATCH; Start 01/14/19 at 09:00 Famotidine (Pepcid) 20 mg Q12 PO Last administered on 01/17/19 13:49; Admin Dose 20 MG; Start 01/13/19 at 21:00 Amlodipine Besylate (Norvasc) 5 mg DAILY PO Last administered on 01/17/19 13:58; Admin Dose 5 MG; Start 01/15/19 at 09:00 Hydromorphone HCl (Dilaudid) 1.5 mg Q4H PRN IV SEVERE PAIN LEVEL 7-10 Last administered on 01/17/19 12:50; Admin Dose 1.5 MG; Start 01/15/19 at 05:30 Doxycycline Hyclate (Vibramycin) 100 mg 0800,1999 PO Last administered on 01/17/19 13:48; Admin Dose 100 MG; Start 01/15/19 at 20:00 Furosemide (Lasix) 20 mg DAILY PO Last administered on 01/17/19 13:54; Admin Dose 20 MG; Start 01/16/19 at 09:00 Acetaminophen/ Hydrocodone Bitart ([place] (5/325)) 1 tab Q4H PRN PO PAIN Last administered on 01/17/19 14:13; Admin Dose 1 TAB; Start 01/16/19 at 01:00 Buspirone HCl (Buspar) 10 mg BID PO Last administered on 01/17/19 13:50; Admin Dose 10 MG; Start 01/16/19 at 12:30 SARAH GUILLEN Jan 17, 2019 16:09
[2019-01-17] MEDS: EPOETIN ALFA-EPBX (NON-ESRD 10,000 UNIT/ML VIAL SC SCH (16:54)
--- NOTE | 2019-01-17 17:53 | CONS ---
Assessment/Plan Assessment/Plan Assessment/Plan (Daily) Hypertension Congestive heart failure exacerbation, diastolic, acute on chronic. Chronic renal failure. Cirrhosis. Ascites, recurrent. Hypothyroidism. History of ETOH abuse. Anemia. Continue Lasix and Aldactone Continue Toprol and amlodipine Continue lactulose Continue Nicotine patch Consultation Date/Type/Reason Admit Date/Time Jan 11, 2019 at 09:53 Type of Consult Cardiology Date/Time of Note DATE: 01/17/19 TIME: 17:51 Past Medical History Home Meds Reported Medications Thiamine* (Vitamin B-1*) 100 Mg Tablet, 100 MG PO DAILY, TAB 01/11/19 Sodium Bicarbonate* (Sodium Bicarbonate*) 325 Mg Tablet, 325 MG PO TID, TAB 01/11/19 Simethicone* (Mylicon*) 80 Mg Tab, 80 MG PO Q6H, TAB 01/11/19 Albuterol Sulfate (Proair Respiclick) 90 Mcg Aer.pow.ba, 2 PUFFS INHALATION Q4H PRN for SHORTNESS OF BREATH, #1 BOTTLE 01/11/19 Pantoprazole* (Pantoprazole*) 40 Mg Tablet.dr, 40 MG PO AC BREAKFAST, TAB 01/11/19 Oxycodone Hcl* (Oxycontin*) 15 Mg Tab.sr.12h, 15 MG PO Q6H PRN for PAIN, TAB 01/11/19 Oxycodone Hcl* (Oxycontin*) 10 Mg Tab.sr.12h, 10 MG PO Q8H PRN for PAIN, TAB 01/11/19 Allopurinol* (Allopurinol*) 100 Mg Tablet, 100 MG PO DAILY, TAB 01/11/19 Rifaximin* (Xifaxan*) 550 Mg Tablet, 550 MG PO BID, TAB 01/11/19 Ondansetron Hcl* (Zofran*) 4 Mg Tab, 4 MG PO Q4H PRN for NAUSEA AND OR VOMITING, TAB 01/11/19 Metoprolol Tartrate* (Lopressor*) 100 Mg Tablet, 100 MG PO DAILY, #60 TAB HOLD FOR SBP<110 OR HR<60 01/11/19 Levothyroxine Sodium* (Levothyroxine Sodium*) 200 Mcg Tablet, 200 MCG PO BEFORE BREAKFAST, #30 TAB 01/11/19 Levothyroxine Sodium* (Levothyroxine Sodium*) 25 Mcg Tablet, 25 MCG PO BEFORE BREAKFAST, #30 TAB 01/11/19 Ipratropium-Albuterol (Ipratropium-Albuterol) 0.5-3 Mg/3 Ml Ampul.neb, 3 ML INHALATION Q6 PRN for WHEEZING AND SOB, #30 VIAL 01/11/19 Hydrocodone/Acetaminophen ([place] 5-325 Tablet) 1 Each Tablet, 1 EACH PO Q6H PRN for PAIN, TAB 01/11/19 Gabapentin* (Gabapentin*) 100 Mg Capsule, 100 MG PO TID, #90 CAP 01/11/19 Furosemide* (Furosemide*) 40 Mg Tablet, 40 MG PO DAILY, TAB 01/11/19 Folic Acid* (Folic Acid*) 1 Mg Tablet, 1 MG PO DAILY, TAB 01/11/19 Tamsulosin Hcl* (Flomax*) 0.4 Mg Cap.er.24h, 0.4 MG PO HS, CAP 01/11/19 Ferrous Sulfate* (Ferrous Sulfate*) 325 Mg Tabec, 325 MG PO DAILY, TAB 01/11/19 Ertapenem Sodium (Invanz) 1 Gm Vial, 1 GM IM DAILY, VIAL 01/11/19 Epoetin Ghulam (Epogen) 10,000 Units/Ml Soln, 87331 UNITS SC Q TUE,SHARONA,SAT, VIAL 01/11/19 Lactulose* (Lactulose*) 10 Gm/15 Ml Solution, 30 ML PO Q6, ML 01/11/19 Docusate Sodium* (Colace*) 100 Mg Capsule, 200 MG PO QHS, #30 CAP 01/11/19 Dorzolamide-Timolol* (Cosopt*) 2%-0.5% - 10 Ml Soln, 1 DROP BOTH EYES BID, BOTTLE 01/11/19 Budesonide* (Budesonide*) 0.5 Mg/2 Ml Ampul.neb, 0.5 MG INHALATION BID, AMP 01/11/19 Lorazepam* (Lorazepam*) 1 Mg Tablet, 1 MG PO BID PRN for ANXIETY, #30 TAB 01/11/19 Ascorbic Acid (Vitamin C) 500 Mg Tab, 500 MG PO DAILY, TAB 01/11/19 Arformoterol Tartrate (Brovana) 15 Mcg/2 Ml Vial.neb, 15 MCG INHALATION BID, VIAL 01/11/19 Spironolactone* (Aldactone*) 50 Mg Tablet, 50 MG PO DAILY, #30 TAB HOLD FOR SBP<110 01/11/19 Salmeterol Xinaf/Fluticasone* (Advair*) 250-50 Diskus Inhaler, 1 INH INHALATION BID, #1 INHALER 01/11/19 Acetaminophen* (Acetaminophen*) 500 MG Extra Strength Tablet, 500 MG PO Q4H PRN for MILD PAIN LEVEL 1-3, TAB 01/11/19 Discontinued Reported Medications Lorazepam* (Lorazepam*) 1 Mg Tablet, 1 MG PO Q6 PRN for ANXIETY, #60 TAB 01/11/19 Allopurinol* (Zyloprim*) 100 Mg Tablet, 100 MG PO DAILY, TAB 09/18/18 Rifaximin* (Xifaxan*) 550 Mg Tablet, 550 MG PO BID, TAB 09/18/18 Thiamine* (Vitamin B-1*) 100 Mg Tablet, 100 MG PO DAILY, TAB 09/18/18 Metoprolol Succinate* (Toprol XL*) 100 Mg Tab.sr.24h, 100 MG PO DAILY, #30 TAB HOLD FOR SBP<110 OR HR<60 09/18/18 Sodium Bicarbonate* (Sodium Bicarbonate*) 650 Mg Tablet, 650 MG PO TID, TAB 09/18/18 Albuterol Sulfate* (Ventolin HFA*) 18 Gm Hfa.aer.ad, 2 PUFF INHALATION Q4H, #1 INHALER 09/18/18 Pantoprazole* (Protonix*) 40 Mg Tablet.dr, 40 MG PO DAILY, TAB 09/18/18 Oxycodone Hcl* (Oxycontin*) 10 Mg Tab.sr.12h, 10 MG PO Q6H, TAB 09/18/18 Gabapentin* (Gabapentin*) 100 Mg Capsule, 100 MG PO TID, #90 CAP 09/18/18 Levothyroxine Sodium* (Levothyroxine Sodium*) 100 Mcg Tablet, 200 MCG PO BEFORE BREAKFAST, #30 TAB 09/18/18 Ipratropium [place]* (Atrovent HFA*) 12.9 Gm Aer.w.adap, 1 VIAL INHALATION Q6H PRN for WHEEZING AND SOB, #1 INHALER 09/18/18 Furosemide* (Furosemide*) 40 Mg Tablet, 40 MG PO DAILY, TAB 09/18/18 Folic Acid* (Folic Acid*) 1 Mg Tablet, 1 MG PO DAILY, TAB 09/18/18 Tamsulosin Hcl* (Flomax*) 0.4 Mg Cap.er.24h, 0.4 MG PO DAILY, CAP 09/18/18 Ferrous Sulfate* (Ferrous Sulfate*) 325 Mg Tabec, 325 MG PO DAILY, TAB 09/18/18 Spironolactone* (Aldactone*) 50 Mg Tablet, 50 MG PO DAILY, #30 TAB HOLD FOR SBP<110 09/18/18 Salmeterol Xinaf/Fluticasone* (Advair*) 250-50 Diskus Inhaler, 1 INH INHALATION BID, #1 INHALER 09/18/18 Discontinued Scripts Docusate Sodium* (Docusate Sodium*) 100 Mg Capsule, 200 MG PO QHS, #60 CAP Prov:ELIOCHRISTINELATANYAMILLICENT 06/26/18 Medications Current Medications IV Flush (NS 3 ml) 3 ml PER PROTOCOL IV ; Start 01/11/19 at 13:00 Ondansetron HCl (Zofran Inj) 4 mg Q6H PRN IV NAUSEA/VOMITING; Start 01/11/19 at 13:00 Acetaminophen (Tylenol Tab) 650 mg Q6H PRN PO .PAIN 1-3 OR TEMP; Start 01/11/19 at 13:00 Albuterol (Proventil 0.083% (Neb)) 2.5 mg Q6 PRN HHN shortness of breath; Star t 01/11/19 at 13:00 Spironolactone (Aldactone) 50 mg DAILY PO Last administered on 01/17/19at 13:54; Admin Dose 50 MG; Start 01/12/19 at 09:00 Metoprolol Succinate (Toprol Xl) 50 mg DAILY PO Last administered on 01/17/19at 13:57; Admin Dose 50 MG; Start 01/12/19 at 09:00 Lorazepam (Ativan) 0.5 mg Q6H PRN IV ANXIETY Last administered on 01/17/19at 09:25; Admin Dose 0.5 MG; Start 01/11/19 at 23:00 Clonidine (Catapres) 0.1 mg Q6H PRN PO systolic BP > 160 Last administered on 01/12/19at 21:31; Admin Dose 0.1 MG; Start 01/12/19 at 21:00 Levothyroxine Sodium (Synthroid) 225 mcg DAILY@06 PO Last administered on 01/17/19 05:52; Admin Dose 225 MCG; Start 01/13/19 at 06:00 Allopurinol (Zyloprim) 100 mg DAILY PO Last administered on 01/17/19 13:50; Admin Dose 100 MG; Start 01/13/19 at 09:00 Ascorbic Acid (Vitamin C) 500 mg DAILY PO Last administered on 01/17/19 13:47; Admin Dose 500 MG; Start 01/13/19 at 09:00 Docusate Sodium (Colace) 200 mg QHS PO Last administered on 01/16/19 20:27; Admin Dose 200 MG; Start 01/13/19 at 21:00 Epoetin Ghulam-epbx (RETACRIT(non-esrd)) 10,000 unit Q48H SC Last administered on 01/17/19 16:54; Admin Dose 10,000 UNIT; Start 01/13/19 at 18:00 Ferrous Sulfate (Ferrous Sulfate (Ec)) 325 mg DAILY PO Last administered on 01/17/19 13:49; Admin Dose 325 MG; Start 01/13/19 at 09:00 Folic Acid (Folic Acid) 1 mg DAILY PO Last administered on 01/17/19 13:49; Admin Dose 1 MG; Start 01/13/19 at 09:00 Gabapentin (Neurontin) 100 mg TID PO Last administered on 01/17/19 13:56; Admin Dose 100 MG; Start 01/13/19 at 09:00 Lactulose (Enulose) 20 gm BID PO Last administered on 01/17/19 13:47; Admin Dose 20 GM; Start 01/13/19 at 09:00 Lorazepam (Ativan) 1 mg BID PRN PO ANXIETY Last administered on 01/14/19 20:36; Admin Dose 1 MG; Start 01/13/19 at 06:30 Rifaximin (Xifaxan) 550 mg BID PO Last administered on 01/17/19 13:47; Admin Dose 550 MG; Start 01/13/19 at 09:00 Sodium Bicarbonate (Sodium Bicarbonate Tab) 325 mg TID PO Last administered on 01/17/19 13:56; Admin Dose 325 MG; Start 01/13/19 at 09:00 Tamsulosin HCl (Flomax) 0.4 mg HS PO Last administered on 01/16/19 20:27; Admin Dose 0.4 MG; Start 01/13/19 at 21:00 Thiamine HCl (Vitamin B1) 100 mg DAILY PO Last administered on 01/17/19 13:50; Admin Dose 100 MG; Start 01/13/19 at 09:00 Arformoterol Tartrate (Brovana (Neb)) 2 ml BID RESP THERAPY INH Last administered on 01/17/19 09:45; Admin Dose 2 ML; Start 01/13/19 at 09:00 Budesonide (Pulmicort (Neb)) 0.5 mg Q12H RESP THERAPY INH Last administered on 01/17/19 08:00; Admin Dose 0.5 MG; Start 01/13/19 at 09:00 Dorzolamide/ Timolol (Cosopt Pf Eye Drops) 1 drop BID BOTH EYES Last administered on 01/17/19 13:48; Admin Dose 1 DROP; Start 01/13/19 at 11:30 Nicotine (Nicoderm 21 Mg/ 24hr) 1 patch DAILY TRANSDERM Last administered on 01/16/19 09:31; Admin Dose 1 PATCH; Start 01/14/19 at 09:00 Famotidine (Pepcid) 20 mg Q12 PO Last administered on 01/17/19 13:49; Admin Dose 20 MG; Start 01/13/19 at 21:00 Amlodipine Besylate (Norvasc) 5 mg DAILY PO Last administered on 01/17/19 13:58; Admin Dose 5 MG; Start 01/15/19 at 09:00 Hydromorphone HCl (Dilaudid) 1.5 mg Q4H PRN IV SEVERE PAIN LEVEL 7-10 Last administered on 01/17/19 17:01; Admin Dose 1.5 MG; Start 01/15/19 at 05:30 Doxycycline Hyclate (Vibramycin) 100 mg 0800,1999 PO Last administered on 01/17/19 13:48; Admin Dose 100 MG; Start 01/15/19 at 20:00 Furosemide (Lasix) 20 mg DAILY PO Last administered on 01/17/19 13:54; Admin Dose 20 MG; Start 01/16/19 at 09:00 Acetaminophen/ Hydrocodone Bitart ([place] (5/325)) 1 tab Q4H PRN PO PAIN Last administered on 01/17/19at 14:13; Admin Dose 1 TAB; Start 01/16/19 at 01:00 Buspirone HCl (Buspar) 10 mg BID PO Last administered on 01/17/19at 13:50; Admin Dose 10 MG; Start 01/16/19 at 12:30 Allergies: Coded Allergies: Penicillins (Unverified Allergy, Unknown, 01/11/19) Past Surgical History Past Surgical Hx: other (s/p I&D of necrotic ulcer left foot in September [address] Younger) Social History Alcohol Use: heavy Smoking Status: Current every day smoker Drug Use: none Exam/Review of Systems Vital Signs Vitals Vital Signs Date Temp Pulse Resp B/P (MAP) Pulse Ox O2 O2 Flow FiO2 Time Delivery Rate 01/17/19 98.0 86 18 143/61 97 Room Air 14:14 (88) 01/16/19 21 20:32 01/14/19 2.0 05:37 Intake and Output 01/16/19 01/16/19 01/17/19 1515:00 23:00 07:00 IntakeIntake Total 800 ml 350 ml 1100 ml OutputOutput Total 1100 ml 600 ml 300 ml BalanceBalance -300 ml -250 ml 800 ml Exam Constitutional: alert Head: normocephalic, atraumatic Neck: supple, non-tender Respiratory: diminished breath sounds Cardiovascular: regular rate and rhythm (no m/r/g) Gastrointestinal: soft, nl liver, spleen Extremities: normal pulses Labs Result Diagram: 01/16/1903 01/16/19 06 Medications Medications Current Medications IV Flush (NS 3 ml) 3 ml PER PROTOCOL IV ; Start 01/11/19 at 13:00 Ondansetron HCl (Zofran Inj) 4 mg Q6H PRN IV NAUSEA/VOMITING; Start 01/11/19 at 13:00 Acetaminophen (Tylenol Tab) 650 mg Q6H PRN PO .PAIN 1-3 OR TEMP; Start 01/11/19 at 13:00 Albuterol (Proventil 0.083% (Neb)) 2.5 mg Q6 PRN HHN shortness of breath; Start 01/11/19 at 13:00 Spironolactone (Aldactone) 50 mg DAILY PO Last administered on 01/17/19 13:54; Admin Dose 50 MG; Start 01/12/19 at 09:00 Metoprolol Succinate (Toprol Xl) 50 mg DAILY PO Last administered on 01/17/19 13:57; Admin Dose 50 MG; Start 01/12/19 at 09:00 Lorazepam (Ativan) 0.5 mg Q6H PRN IV ANXIETY Last administered on 01/17/19 09:25; Admin Dose 0.5 MG; Start 01/11/19 at 23:00 Clonidine (Catapres) 0.1 mg Q6H PRN PO systolic BP > 160 Last administered on 01/12/19 21:31; Admin Dose 0.1 MG; Start 01/12/19 at 21:00 Levothyroxine Sodium (Synthroid) 225 mcg DAILY@06 PO Last administered on 01/17/19 05:52; Admin Dose 225 MCG; Start 01/13/19 at 06:00 Allopurinol (Zyloprim) 100 mg DAILY PO Last administered on 01/17/19 13:50; Admin Dose 100 MG; Start 01/13/19 at 09:00 Ascorbic Acid (Vitamin C) 500 mg DAILY PO Last administered on 01/17/19 13:47; Admin Dose 500 MG; Start 01/13/19 at 09:00 Docusate Sodium (Colace) 200 mg QHS PO Last administered on 01/16/19 20:27; Admin Dose 200 MG; Start 01/13/19 at 21:00 Epoetin Ghulam-epbx (RETACRIT(non-esrd)) 10,000 unit Q48H SC Last administered on 01/17/19 16:54; Admin Dose 10,000 UNIT; Start 01/13/19 at 18:00 Ferrous Sulfate (Ferrous Sulfate (Ec)) 325 mg DAILY PO Last administered on 01/17/19 13:49; Admin Dose 325 MG; Start 01/13/19 at 09:00 Folic Acid (Folic Acid) 1 mg DAILY PO Last administered on 01/17/19 13:49; Admin Dose 1 MG; Start 01/13/19 at 09:00 Gabapentin (Neurontin) 100 mg TID PO Last administered on 01/17/19 13:56; Admin Dose 100 MG; Start 01/13/19 at 09:00 Lactulose (Enulose) 20 gm BID PO Last administered on 01/17/19 13:47; Admin Dose 20 GM; Start 01/13/19 at 09:00 Lorazepam (Ativan) 1 mg BID PRN PO ANXIETY Last administered on 01/14/19 20:36; Admin Dose 1 MG; Start 01/13/19 at 06:30 Rifaximin (Xifaxan) 550 mg BID PO Last administered on 01/17/19 13:47; Admin Dose 550 MG; Start 01/13/19 at 09:00 Sodium Bicarbonate (Sodium Bicarbonate Tab) 325 mg TID PO Last administered on 01/17/19 13:56; Admin Dose 325 MG; Start 01/13/19 at 09:00 Tamsulosin HCl (Flomax) 0.4 mg HS PO Last administered on 01/16/19 20:27; Admin Dose 0.4 MG; Start 01/13/19 at 21:00 Thiamine HCl (Vitamin B1) 100 mg DAILY PO Last administered on 01/17/19 13:50; Admin Dose 100 MG; Start 01/13/19 at 09:00 Arformoterol Tartrate (Brovana (Neb)) 2 ml BID RESP THERAPY INH Last administered on 01/17/19 09:45; Admin Dose 2 ML; Start 01/13/19 at 09:00 Budesonide (Pulmicort (Neb)) 0.5 mg Q12H RESP THERAPY INH Last administered on 01/17/19 08:00; Admin Dose 0.5 MG; Start 01/13/19 at 09:00 Dorzolamide/ Timolol (Cosopt Pf Eye Drops) 1 drop BID BOTH EYES Last administered on 01/17/19 13:48; Admin Dose 1 DROP; Start 01/13/19 at 11:30 Nicotine (Nicoderm 21 Mg/ 24hr) 1 patch DAILY TRANSDERM Last administered on 01/16/19 09:31; Admin Dose 1 PATCH; Start 01/14/19 at 09:00 Famotidine (Pepcid) 20 mg Q12 PO Last administered on 01/17/19 13:49; Admin Dose 20 MG; Start 01/13/19 at 21:00 Amlodipine Besylate (Norvasc) 5 mg DAILY PO Last administered on 01/17/19 13:58; Admin Dose 5 MG; Start 01/15/19 at 09:00 Hydromorphone HCl (Dilaudid) 1.5 mg Q4H PRN IV SEVERE PAIN LEVEL 7-10 Last administered on 01/17/19 17:01; Admin Dose 1.5 MG; Start 01/15/19 at 05:30 Doxycycline Hyclate (Vibramycin) 100 mg 0800,2000 PO Last administered on 01/17/19 13:48; Admin Dose 100 MG; Start 01/15/19 at 20:00 Furosemide (Lasix) 20 mg DAILY PO Last administered on 01/17/19 13:54; Admin Dose 20 MG; Start 01/16/19 at 09:00 Acetaminophen/ Hydrocodone Bitart ([place] (5/325)) 1 tab Q4H PRN PO PAIN Last administered on 01/17/19 14:13; Admin Dose 1 TAB; Start 01/16/19 at 01:00 Buspirone HCl (Buspar) 10 mg BID PO Last administered on 01/17/19 13:50; Admin Dose 10 MG; Start 01/16/19 at 12:30 RAMYA LOGAN M.D. Jan 17, 2019 17:53
[2019-01-17 20:15] VITALS: BP 135/63; PULSE 69; RESP 18
[2019-01-17] MEDS: TAMSULOSIN (SR) 0.4 MG CAP PO SCH (20:44)
[2019-01-17] MEDS: DOCUSATE SODIUM 100 MG CAP PO SCH (20:44)
[2019-01-18] MEDS: HYDROmorphONE 1 MG/ML SYG IV PRN ×6 (00:57→21:33)
--- NOTE | 2019-01-18 02:01 | PN ---
DATE: 01/17/2019 SUBJECTIVE: Followup on alcoholic liver disease, congestive heart failure, CKD stage III. The patient is breathing comfortably at rest. Denies any chest pain. Does get short of breath on exertion. No reported hematemesis, melena. No reported fever or chills. The patient remains awake, alert. PHYSICAL EXAMINATION: GENERAL: The patient is awake, alert. VITAL SIGNS: Temperature 98.1, pulse 69, respirations 18, blood pressure 135/63, O2 saturation 95% on room air. HEENT: No eye discharge or redness. Conjunctivae normal. Oropharynx clear. NECK: Supple. No thyromegaly. CHEST: Diminished air entry at bases. No use of accessory muscle. CARDIOVASCULAR: S1, S2 normal, no murmur. ABDOMEN: Soft, nontender, mildly distended. EXTREMITIES: Edematous. NEUROLOGIC: The patient is awake, alert, oriented with no gross focal deficit. IMPRESSION: 1. 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 2. Chronic kidney disease stage III. 3. CHF, acute on chronic, diastolic. 4. Anxiety. 5. BPH. 6. Anemia of chronic kidney disease. 7. COPD exacerbation. PLAN: Medication list reviewed. Continue Brovana and Pulmicort along with p.r.n. albuterol. We will do followup CBC due to recent leukocytosis. The patient is being followed by infectious disease and is currently on doxycycline. Further recommendation will depend on patient's hospital course. Dictated By: KOKO MORA/NTS Conf#: [id number] DID#: [id number] CC: WERNER KING MD;*EndCC* MTDD
[2019-01-18 02:09] VITALS: BP 153/63; PULSE 75; RESP 18
[2019-01-18] MEDS: HYDROCODONE/APAP (5/325) TAB PO PRN ×5 (04:02→20:33)
[2019-01-18] MEDS: LEVOTHYROXINE 75 MCG TAB PO SCH (05:02)
[2019-01-18] MEDS: LORAZEPAM 2 MG INJ IV PRN ×4 (06:04→19:51)
[2019-01-18] MEDS: ARFORMOTEROL TARTRATE 15MCG/2 ML AMP INH SCH ×2 (08:47→20:10)
[2019-01-18 08:50] VITALS: BP 160/71; PULSE 89; RESP 18
[2019-01-18] MEDS: BUDESONIDE (NEB) 0.5MG/2ML AMP INH SCH ×2 (08:57→20:10)
[2019-01-18] MEDS: LACTULOSE 30ML CUP PO SCH ×2 (09:00→20:36)
[2019-01-18] MEDS: DOXYCYCLINE 100 MG TAB PO SCH ×2 (09:02→20:35)
[2019-01-18] MEDS: ALLOPURINOL 100 MG TAB PO SCH (09:02)
[2019-01-18] MEDS: FOLIC ACID 1 MG TAB PO SCH (09:02)
[2019-01-18] MEDS: THIAMINE 100 MG TAB PO SCH (09:03)
[2019-01-18] MEDS: ASCORBIC ACID 500 MG TAB PO SCH (09:03)
[2019-01-18] MEDS: RIFAXIMIN 550 MG TAB PO SCH ×2 (09:03→20:34)
[2019-01-18] MEDS: FERROUS SULFATE (EC) 325 MG TAB PO SCH (09:04)
[2019-01-18] MEDS: NA BICARBONATE 650 MG TAB PO SCH ×3 (09:04→20:35)
[2019-01-18] MEDS: FUROSEMIDE 20 MG TAB PO SCH (09:04)
[2019-01-18] MEDS: FAMOTIDINE 20 MG TAB PO SCH ×2 (09:05→20:35)
[2019-01-18] MEDS: SPIRONOLACTONE 50 MG TAB PO SCH (09:05)
[2019-01-18] MEDS: BUSPIRONE 10 MG TAB PO SCH ×2 (09:05→20:35)
[2019-01-18] MEDS: METOPROLOL (XL) 50 MG TAB PO SCH (09:06)
[2019-01-18] MEDS: AMLODIPINE 5 MG TAB PO SCH (09:06)
[2019-01-18] MEDS: DORZOLAMIDE/TIMOLOL/PF 0.2 ML DROPERETTE BOTH EYES SCH ×2 (09:07→20:44)
[2019-01-18] MEDS: GABAPENTIN 100 MG CAP PO SCH ×3 (09:16→20:35)
[2019-01-18] MEDS: NICOTINE (21 MG/24 HR) PATCH TRANSDERM SCH (09:17)
--- NOTE | 2019-01-18 13:02 | CONS ---
Consultation Date/Type/Reason Admit Date/Time Jan 11, 2019 at 09:53 Initial Consult Date SUBJECTIVE: Pt is awake, afebrile, looks comfortable. No acute distress. VS: stable T: 98.8 LABS: Reviewed. WBC-20.8 Antimicrobials: Doxycycline Physical examination: GEN: This is a wasted well-developed ,chronically ill-appearing ,elderly man who is in no distress. HENT: Head atraumatic normocephalic, sclera nonicteric. Neck is supple PULM: chest rise symmetrical, breath sounds diminished bases. Heart: S1-S2. Abdomen: soft bowel sounds present. Extremities without BLE edema, mild erythema, no cyanosis. Assessment: 1. Systemic inflammatory response syndrome 2. S/p COPD exacerbation 3. Alcohol abuse 4. Bilateral lower extremities chronic venous stasis 5. Cirrhosis with recurrent ascites 6. Chronic kidney disease 7. CHF 8. Noncompliance Plan: Pt remains to be stable and unchanged. WBC is noted to be elevated today. Will order abd US to r/O ascitis. and will add Merrem IV. Pt had taken it before and did not have allergic reaction. GI/renal rec-s. Requesting Provider: KOKO MARLOW MD Date/Time of Note DATE: 01/18/19 TIME: 13:00 Exam/Review of Systems Exam Vitals Vital Signs Date Temp Pulse Resp B/P (MAP) Pulse Ox O2 O2 Flow FiO2 Time Delivery Rate 01/18/19 74 20 96 21 08:57 01/18/19 98.8 160/71 08:50 (100) 01/17/19 Room Air 14:14 Intake and Output 01/17/19 01/17/19 01/18/19 1414:59 22:59 06:59 IntakeIntake Total 1220 ml 800 ml 2000 ml OutputOutput Total 500 ml 600 ml 725 ml BalanceBalance 720 ml 200 ml 1275 ml Results Result Diagram: 01/18/19 1120 01/18/19 0638 Results 24hrs Laboratory Tests Test 01/18/19 06:38 01/18/19 11:20 Sodium Level 142 Potassium Level 5.0 Chloride Level 110 Carbon Dioxide Level 22 Anion Gap 10 Blood Urea Nitrogen 44 H Creatinine 1.64 H Est Glomerular Filtrat Rate mL/min 43 L Glucose Level 91 Calcium Level 8.9 White Blood Count 20.8 #H Red Blood Count 4.34 L Hemoglobin 9.3 L Hematocrit 33.4 L Mean Corpuscular Volume 77.0 L Mean Corpuscular Hemoglobin 21.4 L Mean Corpuscular Hemoglobin Concent 27.8 L Red Cell Distribution Width 23.2 H Platelet Count 204 # Mean Platelet Volume Immature Granulocytes % 6.800 H Neutrophils % Segmented Neutrophils % (Manual) 64 Band Neutrophils % (Manual) 3 Lymphocytes % Lymphocytes % (Manual) 5 L Monocytes % Monocytes % (Manual) 24 H Eosinophils % Eosinophils % (Manual) 2 Basophils % Basophils % (Manual) 1 Myelocytes % (Manual) 1 H Nucleated Red Blood Cells % 0.1 H Immature Granulocytes # 1.410 H Neutrophils # Neutrophils # (Manual) 13.4 H Band Neutrophils # 0.6 Lymphocytes (Manual) 1.0 Lymphocytes # Monocytes # Monocytes # (Manual) 4.9 H Eosinophils # Basophils # Basophils # (Manual) 0.2 H Myelocytes # 0.2 H Nucleated Red Blood Cells # Platelet Estimate NORMAL Giant Platelets 2 H Polychromasia 3+ Hypochromasia 3+ Poikilocytosis 2+ Anisocytosis 2+ Microcytosis 1+ Macrocytosis 1+ Ovalocytes 1+ Elliptocytes 1+ Medications Medication Current Medications IV Flush (NS 3 ml) 3 ml PER PROTOCOL IV ; Start 01/11/19 at 13:00 Ondansetron HCl (Zofran Inj) 4 mg Q6H PRN IV NAUSEA/VOMITING; Start 01/11/19 at 13:00 Acetaminophen (Tylenol Tab) 650 mg Q6H PRN PO .PAIN 1-3 OR TEMP; Start 01/11/19 at 13:00 Albuterol (Proventil 0.083% (Neb)) 2.5 mg Q6 PRN HHN shortness of breath; Start 01/11/19 at 13:00 Spironolactone (Aldactone) 50 mg DAILY PO Last administered on 01/18/19at 09:05; Admin Dose 50 MG; Start 01/12/19 at 09:00 Metoprolol Succinate (Toprol Xl) 50 mg DAILY PO Last administered on 01/18/19at 09:06; Admin Dose 50 MG; Start 01/12/19 at 09:00 Lorazepam (Ativan) 0.5 mg Q6H PRN IV ANXIETY Last administered on 01/18/19at 12:13; Admin Dose 0.5 MG; Start 01/11/19 at 23:00 Clonidine (Catapres) 0.1 mg Q6H PRN PO systolic BP > 160 Last administered on 01/12/19 21:31; Admin Dose 0.1 MG; Start 01/12/19 at 21:00 Levothyroxine Sodium (Synthroid) 225 mcg DAILY@06 PO Last administered on 01/18/19 05:02; Admin Dose 225 MCG; Start 01/13/19 at 06:00 Allopurinol (Zyloprim) 100 mg DAILY PO Last administered on 01/18/19 09:02; Admin Dose 100 MG; Start 01/13/19 at 09:00 Ascorbic Acid (Vitamin C) 500 mg DAILY PO Last administered on 01/18/19 09:03; Admin Dose 500 MG; Start 01/13/19 at 09:00 Docusate Sodium (Colace) 200 mg QHS PO Last administered on 01/17/19 20:44; Admin Dose 200 MG; Start 01/13/19 at 21:00 Epoetin Ghulam-epbx (RETACRIT(non-esrd)) 10,000 unit Q48H SC Last administered on 01/17/19 16:54; Admin Dose 10,000 UNIT; Start 01/13/19 at 18:00 Ferrous Sulfate (Ferrous Sulfate (Ec)) 325 mg DAILY PO Last administered on 01/18/19 09:04; Admin Dose 325 MG; Start 01/13/19 at 09:00 Folic Acid (Folic Acid) 1 mg DAILY PO Last administered on 01/18/19 09:02; Admin Dose 1 MG; Start 01/13/19 at 09:00 Gabapentin (Neurontin) 100 mg TID PO Last administered on 01/18/19 09:16; Admin Dose 100 MG; Start 01/13/19 at 09:00 Lactulose (Enulose) 20 gm BID PO Last administered on 01/17/19 13:47; Admin Dose 20 GM; Start 01/13/19 at 09:00 Lorazepam (Ativan) 1 mg BID PRN PO ANXIETY Last administered on 01/14/19 20:36; Admin Dose 1 MG; Start 01/13/19 at 06:30 Rifaximin (Xifaxan) 550 mg BID PO Last administered on 01/18/19 09:03; Admin Dose 550 MG; Start 01/13/19 at 09:00 Sodium Bicarbonate (Sodium Bicarbonate Tab) 325 mg TID PO Last administered on 01/18/19 09:04; Admin Dose 325 MG; Start 01/13/19 at 09:00 Tamsulosin HCl (Flomax) 0.4 mg HS PO Last administered on 01/17/19 20:44; Admin Dose 0.4 MG; Start 01/13/19 at 21:00 Thiamine HCl (Vitamin B1) 100 mg DAILY PO Last administered on 01/18/19 09:03; Admin Dose 100 MG; Start 01/13/19 at 09:00 Arformoterol Tartrate (Brovana (Neb)) 2 ml BID RESP THERAPY INH Last administered on 01/18/19 08:47; Admin Dose 2 ML; Start 01/13/19 at 09:00 Budesonide (Pulmicort (Neb)) 0.5 mg Q12H RESP THERAPY INH Last administered on 01/18/19 08:57; Admin Dose 0.5 MG; Start 01/13/19 at 09:00 Dorzolamide/ Timolol (Cosopt Pf Eye Drops) 1 drop BID BOTH EYES Last administered on 01/18/19 09:07; Admin Dose 1 DROP; Start 01/13/19 at 11:30 Nicotine (Nicoderm 21 Mg/ 24hr) 1 patch DAILY TRANSDERM Last administered on 01/18/19 09:17; Admin Dose 1 PATCH; Start 01/14/19 at 09:00 Famotidine (Pepcid) 20 mg Q12 PO Last administered on 01/18/19 09:05; Admin Dose 20 MG; Start 01/13/19 at 21:00 Amlodipine Besylate (Norvasc) 5 mg DAILY PO Last administered on 01/18/19 09:06; Admin Dose 5 MG; Start 01/15/19 at 09:00 Hydromorphone HCl (Dilaudid) 1.5 mg Q4H PRN IV SEVERE PAIN LEVEL 7-10 Last administered on 01/18/19 08:57; Admin Dose 1.5 MG; Start 01/15/19 at 05:30 Doxycycline Hyclate (Vibramycin) 100 mg 0800,2000 PO Last administered on 01/18/19 09:02; Admin Dose 100 MG; Start 01/15/19 at 20:00 Furosemide (Lasix) 20 mg DAILY PO Last administered on 01/18/19 09:04; Admin Dose 20 MG; Start 01/16/19 at 09:00 Acetaminophen/ Hydrocodone Bitart ([place] (5/325)) 1 tab Q4H PRN PO PAIN Last administered on 01/18/19 12:03; Admin Dose 1 TAB; Start 01/16/19 at 01:00 Buspirone HCl (Buspar) 10 mg BID PO Last administered on 01/18/19 09:05; Admin Dose 10 MG; Start 01/16/19 at 12:30 SARAH GUILLEN Jan 18, 2019 13:02
[2019-01-18 13:53] VITALS: BP 149/67; PULSE 77; RESP 19
--- NOTE | 2019-01-18 14:12 | CONS ---
Assessment/Plan Assessment/Plan Assessment/Plan (Daily) 1. acute on chronic renal failure due to Type II hepatorenal syndrome 2. SIRS 3. anemia of CKD 5. Decompensated Liver cirrhosis with Symptomatic ascites 6. H/O HTN 7. h/o Liver cirrhosis with ascites 8. H/o Diastolic CHF 9. Bilateral LE chronic venous stasis 10.H/o BPH on flomax Plan: Continue IV abx as per ID , renally dose all abx , monitor electorlytes and replace as needed, BUN/Cr 44/1.64-Electrolyte stable today , Continue lasix to 20mg po daily, , spironolactone 50mg po daily , Toprol Xl 50mg po daily , amlodipine 5 mg po daily on Sodium bicarbonte 325mg PO TID Flomax 0.4mg po daily for BPH will follow up Consultation Date/Type/Reason Admit Date/Time Jan 11, 2019 at 09:53 Initial Consult Date 01/11/19 Type of Consult Nephrology Requesting Provider: KOKO MARLOW MD Date/Time of Note DATE: 01/18/19 TIME: 14:12 Exam/Review of Systems Exam Vitals Vital Signs Date Temp Pulse Resp B/P (MAP) Pulse Ox O2 O2 Flow FiO2 Time Delivery Rate 01/18/19 98.8 77 19 149/67 95 13:53 (94) 01/18/19 21 08:57 01/17/19 Room Air 14:14 Intake and Output 01/17/19 01/17/19 01/18/19 1515:00 23:00 07:00 IntakeIntake Total 1220 ml 800 ml 2000 ml OutputOutput Total 500 ml 600 ml 725 ml BalanceBalance 720 ml 200 ml 1275 ml Exam Constitutional: alert, awake, on acute distress Respiratory: clear to auscultation, no crackles no wheezing Cardiovascular: regular rate and rhythm, nl pulses Gastrointestinal: soft, non-tender, ascites, distended Musculoskeletal: joint tenderness, muscle weakness, swelling Extremities: chronic LE venous stasis Neurological: [employer] II-XII intact, nl mental status, nl speech, nl strength Lymph: nl lymph nodes Results Result Diagram: 01/18/19 1120 01/18/19 0638 Results 24hrs Laboratory Tests Test 01/18/19 06:38 01/18/19 11:20 Sodium Level 142 Potassium Level 5.0 Chloride Level 110 Carbon Dioxide Level 22 Anion Gap 10 Blood Urea Nitrogen 44 H Creatinine 1.64 H Est Glomerular Filtrat Rate mL/min 43 L Glucose Level 91 Calcium Level 8.9 White Blood Count 20.8 #H Red Blood Count 4.34 L Hemoglobin 9.3 L Hematocrit 33.4 L Mean Corpuscular Volume 77.0 L Mean Corpuscular Hemoglobin 21.4 L Mean Corpuscular Hemoglobin Concent 27.8 L Red Cell Distribution Width 23.2 H Platelet Count 204 # Mean Platelet Volume Immature Granulocytes % 6.800 H Neutrophils % Segmented Neutrophils % (Manual) 64 Band Neutrophils % (Manual) 3 Lymphocytes % Lymphocytes % (Manual) 5 L Monocytes % Monocytes % (Manual) 24 H Eosinophils % Eosinophils % (Manual) 2 Basophils % Basophils % (Manual) 1 Myelocytes % (Manual) 1 H Nucleated Red Blood Cells % 0.1 H Immature Granulocytes # 1.410 H Neutrophils # Neutrophils # (Manual) 13.4 H Band Neutrophils # 0.6 Lymphocytes (Manual) 1.0 Lymphocytes # Monocytes # Monocytes # (Manual) 4.9 H Eosinophils # Basophils # Basophils # (Manual) 0.2 H Myelocytes # 0.2 H Nucleated Red Blood Cells # Platelet Estimate NORMAL Giant Platelets 2 H Polychromasia 3+ Hypochromasia 3+ Poikilocytosis 2+ Anisocytosis 2+ Microcytosis 1+ Macrocytosis 1+ Ovalocytes 1+ Elliptocytes 1+ Medications Medication Current Medications IV Flush (NS 3 ml) 3 ml PER PROTOCOL IV ; Start 01/11/19 at 13:00 Ondansetron HCl (Zofran Inj) 4 mg Q6H PRN IV NAUSEA/VOMITING; Start 01/11/19 at 13:00 Acetaminophen (Tylenol Tab) 650 mg Q6H PRN PO .PAIN 1-3 OR TEMP; Start 01/11/19 at 13:00 Albuterol (Proventil 0.083% (Neb)) 2.5 mg Q6 PRN HHN shortness of breath; Start 01/11/19 at 13:00 Spironolactone (Aldactone) 50 mg DAILY PO Last administered on 01/18/19at 09:05; Admin Dose 50 MG; Start 01/12/19 at 09:00 Metoprolol Succinate (Toprol Xl) 50 mg DAILY PO Last administered on 4/14/19at 09:06; Admin Dose 50 MG; Start 01/12/19 at 09:00 Lorazepam (Ativan) 0.5 mg Q6H PRN IV ANXIETY Last administered on 01/18/19 12:13; Admin Dose 0.5 MG; Start 01/11/19 at 23:00 Clonidine (Catapres) 0.1 mg Q6H PRN PO systolic BP > 160 Last administered on 01/12/19 21:31; Admin Dose 0.1 MG; Start 01/12/19 at 21:00 Levothyroxine Sodium (Synthroid) 225 mcg DAILY@06 PO Last administered on 01/18/19 05:02; Admin Dose 225 MCG; Start 01/13/19 at 06:00 Allopurinol (Zyloprim) 100 mg DAILY PO Last administered on 01/18/19 09:02; Admin Dose 100 MG; Start 01/13/19 at 09:00 Ascorbic Acid (Vitamin C) 500 mg DAILY PO Last administered on 01/18/19 09:03; Admin Dose 500 MG; Start 01/13/19 at 09:00 Docusate Sodium (Colace) 200 mg QHS PO Last administered on 01/17/19 20:44; Admin Dose 200 MG; Start 01/13/19 at 21:00 Epoetin Ghulam-epbx (RETACRIT(non-esrd)) 10,000 unit Q48H SC Last administered on 01/17/19 16:54; Admin Dose 10,000 UNIT; Start 01/13/19 at 18:00 Ferrous Sulfate (Ferrous Sulfate (Ec)) 325 mg DAILY PO Last administered on 01/18/19 09:04; Admin Dose 325 MG; Start 01/13/19 at 09:00 Folic Acid (Folic Acid) 1 mg DAILY PO Last administered on 01/18/19 09:02; Admin Dose 1 MG; Start 01/13/19 at 09:00 Gabapentin (Neurontin) 100 mg TID PO Last administered on 01/18/19 13:01; Admin Dose 100 MG; Start 01/13/19 at 09:00 Lactulose (Enulose) 20 gm BID PO Last administered on 01/17/19 13:47; Admin Dose 20 GM; Start 01/13/19 at 09:00 Lorazepam (Ativan) 1 mg BID PRN PO ANXIETY Last administered on 01/14/19 20:36; Admin Dose 1 MG; Start 01/13/19 at 06:30 Rifaximin (Xifaxan) 550 mg BID PO Last administered on 01/18/19 09:03; Admin Dose 550 MG; Start 01/13/19 at 09:00 Sodium Bicarbonate (Sodium Bicarbonate Tab) 325 mg TID PO Last administered on 01/18/19 13:01; Admin Dose 325 MG; Start 01/13/19 at 09:00 Tamsulosin HCl (Flomax) 0.4 mg HS PO Last administered on 01/17/19 20:44; Admin Dose 0.4 MG; Start 01/13/19 at 21:00 Thiamine HCl (Vitamin B1) 100 mg DAILY PO Last administered on 01/18/19 09:03; Admin Dose 100 MG; Start 01/13/19 at 09:00 Arformoterol Tartrate (Brovana (Neb)) 2 ml BID RESP THERAPY INH Last administered on 01/18/19 08:47; Admin Dose 2 ML; Start 01/13/19 at 09:00 Budesonide (Pulmicort (Neb)) 0.5 mg Q12H RESP THERAPY INH Last administered on 01/18/19 08:57; Admin Dose 0.5 MG; Start 01/13/19 at 09:00 Dorzolamide/ Timolol (Cosopt Pf Eye Drops) 1 drop BID BOTH EYES Last administered on 01/18/19 09:07; Admin Dose 1 DROP; Start 01/13/19 at 11:30 Nicotine (Nicoderm 21 Mg/ 24hr) 1 patch DAILY TRANSDERM Last administered on 01/18/19 09:17; Admin Dose 1 PATCH; Start 01/14/19 at 09:00 Famotidine (Pepcid) 20 mg Q12 PO Last administered on 01/18/19 09:05; Admin Dose 20 MG; Start 01/13/19 at 21:00 Amlodipine Besylate (Norvasc) 5 mg DAILY PO Last administered on 01/18/19 09:06; Admin Dose 5 MG; Start 01/15/19 at 09:00 Hydromorphone HCl (Dilaudid) 1.5 mg Q4H PRN IV SEVERE PAIN LEVEL 7-10 Last administered on 01/18/19 13:02; Admin Dose 1.5 MG; Start 01/15/19 at 05:30 Doxycycline Hyclate (Vibramycin) 100 mg 0800,2000 PO Last administered on 01/18/19 09:02; Admin Dose 100 MG; Start 01/15/19 at 20:00 Furosemide (Lasix) 20 mg DAILY PO Last administered on 01/18/19 09:04; Admin Dose 20 MG; Start 01/16/19 at 09:00 Acetaminophen/ Hydrocodone Bitart ([place] (5/325)) 1 tab Q4H PRN PO PAIN Last administered on 01/18/19 12:03; Admin Dose 1 TAB; Start 01/16/19 at 01:00 Buspirone HCl (Buspar) 10 mg BID PO Last administered on 01/18/19 09:05; Admin Dose 10 MG; Start 01/16/19 at 12:30 Meropenem/Sodium Chloride 50 ml @ 100 mls/hr Q12 IVPB ; Start 01/18/19 at 14:30 ELADIO DELGADO MD Jan 18, 2019 14:12
--- NOTE | 2019-01-18 14:50 | CONS ---
Assessment/Plan Assessment/Plan Assessment/Plan (Daily) Congestive heart failure exacerbation, diastolic, acute on chronic. Hypertension Chronic renal failure. Cirrhosis. Ascites, recurrent. Hypothyroidism. History of ETOH abuse. Anemia. Continue Lasix and Aldactone Continue Toprol and amlodipine Continue lactulose Continue Nicotine patch Consultation Date/Type/Reason Admit Date/Time Jan 11, 2019 at 09:53 Initial Consult Date 01/12/19 Type of Consult Cardiology Requesting Provider: KOKO MARLOW MD Date/Time of Note DATE: 01/18/19 TIME: 14:49 Exam/Review of Systems Vital Signs Vitals Vital Signs Date Temp Pulse Resp B/P (MAP) Pulse Ox O2 O2 Flow FiO2 Time Delivery Rate 01/18/19 98.8 77 19 149/67 95 13:53 (94) 01/18/19 21 08:57 01/17/19 Room Air 14:14 Intake and Output 01/17/19 01/17/19 01/18/19 1515:00 23:00 07:00 IntakeIntake Total 1220 ml 800 ml 2000 ml OutputOutput Total 500 ml 600 ml 725 ml BalanceBalance 720 ml 200 ml 1275 ml Exam Exam Constitutional: alert Head: normocephalic, atraumatic Neck: supple, non-tender Respiratory: diminished breath sounds Cardiovascular: regular rate and rhythm (no m/r/g) Gastrointestinal: soft, nl liver, spleen Extremities: normal pulses Labs Result Diagram: 01/18/19 1120 01/18/19 0638 Results 24hrs Laboratory Tests Test 01/18/19 06:38 01/18/19 11:20 Sodium Level 142 Potassium Level 5.0 Chloride Level 110 Carbon Dioxide Level 22 Anion Gap 10 Blood Urea Nitrogen 44 H Creatinine 1.64 H Est Glomerular Filtrat Rate mL/min 43 L Glucose Level 91 Calcium Level 8.9 White Blood Count 20.8 #H Red Blood Count 4.34 L Hemoglobin 9.3 L Hematocrit 33.4 L Mean Corpuscular Volume 77.0 L Mean Corpuscular Hemoglobin 21.4 L Mean Corpuscular Hemoglobin Concent 27.8 L Red Cell Distribution Width 23.2 H Platelet Count 204 # Mean Platelet Volume Immature Granulocytes % 6.800 H Neutrophils % Segmented Neutrophils % (Manual) 64 Band Neutrophils % (Manual) 3 Lymphocytes % Lymphocytes % (Manual) 5 L Monocytes % Monocytes % (Manual) 24 H Eosinophils % Eosinophils % (Manual) 2 Basophils % Basophils % (Manual) 1 Myelocytes % (Manual) 1 H Nucleated Red Blood Cells % 0.1 H Immature Granulocytes # 1.410 H Neutrophils # Neutrophils # (Manual) 13.4 H Band Neutrophils # 0.6 Lymphocytes (Manual) 1.0 Lymphocytes # Monocytes # Monocytes # (Manual) 4.9 H Eosinophils # Basophils # Basophils # (Manual) 0.2 H Myelocytes # 0.2 H Nucleated Red Blood Cells # Platelet Estimate NORMAL Giant Platelets 2 H Polychromasia 3+ Hypochromasia 3+ Poikilocytosis 2+ Anisocytosis 2+ Microcytosis 1+ Macrocytosis 1+ Ovalocytes 1+ Elliptocytes 1+ Medications Medications Current Medications IV Flush (NS 3 ml) 3 ml PER PROTOCOL IV ; Start 01/11/19 at 13:00 Ondansetron HCl (Zofran Inj) 4 mg Q6H PRN IV NAUSEA/VOMITING; Start 01/11/19 at 13:00 Acetaminophen (Tylenol Tab) 650 mg Q6H PRN PO .PAIN 1-3 OR TEMP; Start 01/11/19 at 13:00 Albuterol (Proventil 0.083% (Neb)) 2.5 mg Q6 PRN HHN shortness of breath; Start 01/11/19 at 13:00 Spironolactone (Aldactone) 50 mg DAILY PO Last administered on 01/18/19at 09:05; Admin Dose 50 MG; Start 01/12/19 at 09:00 Metoprolol Succinate (Toprol Xl) 50 mg DAILY PO Last administered on 01/18/19at 09:06; Admin Dose 50 MG; Start 01/12/19 at 09:00 Lorazepam (Ativan) 0.5 mg Q6H PRN IV ANXIETY Last administered on 01/18/19at 12:13; Admin Dose 0.5 MG; Start 01/11/19 at 23:00 Clonidine (Catapres) 0.1 mg Q6H PRN PO systolic BP > 160 Last administered on 01/12/19at 21:31; Admin Dose 0.1 MG; Start 01/12/19 at 21:00 Levothyroxine Sodium (Synthroid) 225 mcg DAILY@06 PO Last administered on 01/18/19at 05:02; Admin Dose 225 MCG; Start 01/13/19 at 06:00 Allopurinol (Zyloprim) 100 mg DAILY PO Last administered on 01/18/19 09:02; Admin Dose 100 MG; Start 01/13/19 at 09:00 Ascorbic Acid (Vitamin C) 500 mg DAILY PO Last administered on 01/18/19 09:03; Admin Dose 500 MG; Start 01/13/19 at 09:00 Docusate Sodium (Colace) 200 mg QHS PO Last administered on 01/17/19 20:44; Admin Dose 200 MG; Start 01/13/19 at 21:00 Epoetin Ghulam-epbx (RETACRIT(non-esrd)) 10,000 unit Q48H SC Last administered on 01/17/19 16:54; Admin Dose 10,000 UNIT; Start 01/13/19 at 18:00 Ferrous Sulfate (Ferrous Sulfate (Ec)) 325 mg DAILY PO Last administered on 01/18/19 09:04; Admin Dose 325 MG; Start 01/13/19 at 09:00 Folic Acid (Folic Acid) 1 mg DAILY PO Last administered on 01/18/19 09:02; Admin Dose 1 MG; Start 01/13/19 at 09:00 Gabapentin (Neurontin) 100 mg TID PO Last administered on 01/18/19 13:01; Admin Dose 100 MG; Start 01/13/19 at 09:00 Lactulose (Enulose) 20 gm BID PO Last administered on 01/17/19 13:47; Admin Dose 20 GM; Start 01/13/19 at 09:00 Lorazepam (Ativan) 1 mg BID PRN PO ANXIETY Last administered on 01/14/19 20:36; Admin Dose 1 MG; Start 01/13/19 at 06:30 Rifaximin (Xifaxan) 550 mg BID PO Last administered on 01/18/19 09:03; Admin Dose 550 MG; Start 01/13/19 at 09:00 Sodium Bicarbonate (Sodium Bicarbonate Tab) 325 mg TID PO Last administered on 01/18/19 13:01; Admin Dose 325 MG; Start 01/13/19 at 09:00 Tamsulosin HCl (Flomax) 0.4 mg HS PO Last administered on 01/17/19 20:44; Admin Dose 0.4 MG; Start 01/13/19 at 21:00 Thiamine HCl (Vitamin B1) 100 mg DAILY PO Last administered on 01/18/19 09:03; Admin Dose 100 MG; Start 01/13/19 at 09:00 Arformoterol Tartrate (Brovana (Neb)) 2 ml BID RESP THERAPY INH Last administered on 01/18/19 08:47; Admin Dose 2 ML; Start 01/13/19 at 09:00 Budesonide (Pulmicort (Neb)) 0.5 mg Q12H RESP THERAPY INH Last administered on 01/18/19 08:57; Admin Dose 0.5 MG; Start 01/13/19 at 09:00 Dorzolamide/ Timolol (Cosopt Pf Eye Drops) 1 drop BID BOTH EYES Last administered on 01/18/19 09:07; Admin Dose 1 DROP; Start 01/13/19 at 11:30 Nicotine (Nicoderm 21 Mg/ 24hr) 1 patch DAILY TRANSDERM Last administered on 01/18/19 09:17; Admin Dose 1 PATCH; Start 01/14/19 at 09:00 Famotidine (Pepcid) 20 mg Q12 PO Last administered on 01/18/19 09:05; Admin Dose 20 MG; Start 01/13/19 at 21:00 Amlodipine Besylate (Norvasc) 5 mg DAILY PO Last administered on 01/18/19 09:06; Admin Dose 5 MG; Start 01/15/19 at 09:00 Hydromorphone HCl (Dilaudid) 1.5 mg Q4H PRN IV SEVERE PAIN LEVEL 7-10 Last administered on 01/18/19 13:02; Admin Dose 1.5 MG; Start 01/15/19 at 05:30 Doxycycline Hyclate (Vibramycin) 100 mg 0800,2000 PO Last administered on 01/18/19 09:02; Admin Dose 100 MG; Start 01/15/19 at 20:00 Furosemide (Lasix) 20 mg DAILY PO Last administered on 01/18/19 09:04; Admin Dose 20 MG; Start 01/16/19 at 09:00 Acetaminophen/ Hydrocodone Bitart ([place] (5/325)) 1 tab Q4H PRN PO PAIN Last administered on 01/18/19 12:03; Admin Dose 1 TAB; Start 01/16/19 at 01:00 Buspirone HCl (Buspar) 10 mg BID PO Last administered on 01/18/19at 09:05; Admin Dose 10 MG; Start 01/16/19 at 12:30 Meropenem/Sodium Chloride 50 ml @ 100 mls/hr Q12 IVPB ; Start 01/18/19 at 14:30 RAMYA LOGAN M.D. Jan 18, 2019 14:50
[2019-01-18] MEDS: MEROPENEM 500MG/50 ML (PMX) 50 ML IVPB SCH ×2 (15:06→22:01)
--- NOTE | 2019-01-18 15:27 | CONS ---
Assessment/Plan Assessment/Plan Assessment/Plan (Daily) Assessment/Plan (Daily) Interval hx: Pain improved with increase of dilaudid to 1mg. Denies nausea. Denies melena or hematochezia. EAting well. continues to refuse colonoscopy 1. Microcytic hypochromic anemia, most probably related to iron deficiency. -anemia work up from previous visit last week noted. NEG FOB -EGD done April 2018 showed duodenal ulcer and gastritis -hgb stable 2. 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 -US on 01/07 did not ascites 3. Nicotine dependence 4. Congestive heart failure. -EF of 60% 5. Chronic obstructive pulmonary disease. 6. Renal failure. PLAN: Pain management Pt needs EGD and colonoscopy, particularly colonoscopy. Spoke with patient again who continues to refuse procedures. Continue pepcid, lasix and aldactone We will proceed with a colonoscopy if patient agrees Patient wants to wait for a few days before colonoscopy We will send for CEA level Consultation Date/Type/Reason Admit Date/Time Jan 11, 2019 at 09:53 Initial Consult Date 01/12/19 Requesting Provider: KOKO MARLOW MD Date/Time of Note DATE: 01/18/19 TIME: 15:27 24 HR Interval Summary Free Text/Dictation Chronic pain Exam/Review of Systems Exam Vitals Vital Signs Date Temp Pulse Resp B/P (MAP) Pulse Ox O2 O2 Flow FiO2 Time Delivery Rate 01/18/19 98.8 77 19 149/67 95 13:53 (94) 01/18/19 21 08:57 01/17/19 Room Air 14:14 Intake and Output 01/17/19 01/17/19 01/18/19 1515:00 23:00 07:00 IntakeIntake Total 1220 ml 800 ml 2000 ml OutputOutput Total 500 ml 600 ml 725 ml BalanceBalance 720 ml 200 ml 1275 ml Constitutional: alert, oriented, well developed Psych: no complaints, nl mood/affect Head: normocephalic, atraumatic Eyes: nl conjunctiva, EOMI, nl lids, nl sclera, PERRL ENMT: nl external ears & nose, nl lips & teeth, nl nasal mucosa & septum Neck: supple, non-tender Respiratory: clear to auscultation, normal air movement Cardiovascular: regular rate and rhythm, nl pulses Gastrointestinal: soft, nl liver, spleen, non-tender Musculoskeletal: nl extremities to inspection, nl gait and stance Extremities: normal pulses Neurological: ABALONE DIVER II-XII intact, nl mental status, nl speech, nl strength Skin: nl turgor; No rash or lesions Lymph: nl lymph nodes Results Result Diagram: 01/18/19 1120 01/18/19 0638 Results 24hrs Laboratory Tests Test 01/18/19 06:38 01/18/19 11:20 Sodium Level 142 Potassium Level 5.0 Chloride Level 110 Carbon Dioxide Level 22 Anion Gap 10 Blood Urea Nitrogen 44 H Creatinine 1.64 H Est Glomerular Filtrat Rate mL/min 43 L Glucose Level 91 Calcium Level 8.9 White Blood Count 20.8 #H Red Blood Count 4.34 L Hemoglobin 9.3 L Hematocrit 33.4 L Mean Corpuscular Volume 77.0 L Mean Corpuscular Hemoglobin 21.4 L Mean Corpuscular Hemoglobin Concent 27.8 L Red Cell Distribution Width 23.2 H Platelet Count 204 # Mean Platelet Volume Immature Granulocytes % 6.800 H Neutrophils % Segmented Neutrophils % (Manual) 64 Band Neutrophils % (Manual) 3 Lymphocytes % Lymphocytes % (Manual) 5 L Monocytes % Monocytes % (Manual) 24 H Eosinophils % Eosinophils % (Manual) 2 Basophils % Basophils % (Manual) 1 Myelocytes % (Manual) 1 H Nucleated Red Blood Cells % 0.1 H Immature Granulocytes # 1.410 H Neutrophils # Neutrophils # (Manual) 13.4 H Band Neutrophils # 0.6 Lymphocytes (Manual) 1.0 Lymphocytes # Monocytes # Monocytes # (Manual) 4.9 H Eosinophils # Basophils # Basophils # (Manual) 0.2 H Myelocytes # 0.2 H Nucleated Red Blood Cells # Platelet Estimate NORMAL Giant Platelets 2 H Polychromasia 3+ Hypochromasia 3+ Poikilocytosis 2+ Anisocytosis 2+ Microcytosis 1+ Macrocytosis 1+ Ovalocytes 1+ Elliptocytes 1+ Medications Medication Current Medications IV Flush (NS 3 ml) 3 ml PER PROTOCOL IV ; Start 01/11/19 at 13:00 Ondansetron HCl (Zofran Inj) 4 mg Q6H PRN IV NAUSEA/VOMITING; Start 01/11/19 at 13:00 Acetaminophen (Tylenol Tab) 650 mg Q6H PRN PO .PAIN 1-3 OR TEMP; Start 01/11/19 at 13:00 Albuterol (Proventil 0.083% (Neb)) 2.5 mg Q6 PRN HHN shortness of breath; Start 01/11/19 at 13:00 Spironolactone (Aldactone) 50 mg DAILY PO Last administered on 01/18/19 09:05; Admin Dose 50 MG; Start 01/12/19 at 09:00 Metoprolol Succinate (Toprol Xl) 50 mg DAILY PO Last administered on 01/18/19 09:06; Admin Dose 50 MG; Start 01/12/19 at 09:00 Lorazepam (Ativan) 0.5 mg Q6H PRN IV ANXIETY Last administered on 01/18/19 12:13; Admin Dose 0.5 MG; Start 01/11/19 at 23:00 Clonidine (Catapres) 0.1 mg Q6H PRN PO systolic BP > 160 Last administered on 01/12/19 21:31; Admin Dose 0.1 MG; Start 01/12/19 at 21:00 Levothyroxine Sodium (Synthroid) 225 mcg DAILY@06 PO Last administered on 01/18/19 05:02; Admin Dose 225 MCG; Start 01/13/19 at 06:00 Allopurinol (Zyloprim) 100 mg DAILY PO Last administered on 01/18/19 09:02; Admin Dose 100 MG; Start 01/13/19 at 09:00 Ascorbic Acid (Vitamin C) 500 mg DAILY PO Last administered on 01/18/19 09:03; Admin Dose 500 MG; Start 01/13/19 at 09:00 Docusate Sodium (Colace) 200 mg QHS PO Last administered on 01/17/19 20:44; Admin Dose 200 MG; Start 01/13/19 at 21:00 Epoetin Ghulam-epbx (RETACRIT(non-esrd)) 10,000 unit Q48H SC Last administered on 01/17/19 16:54; Admin Dose 10,000 UNIT; Start 01/13/19 at 18:00 Ferrous Sulfate (Ferrous Sulfate (Ec)) 325 mg DAILY PO Last administered on 01/18/19 09:04; Admin Dose 325 MG; Start 01/13/19 at 09:00 Folic Acid (Folic Acid) 1 mg DAILY PO Last administered on 01/18/19 09:02; Admin Dose 1 MG; Start 01/13/19 at 09:00 Gabapentin (Neurontin) 100 mg TID PO Last administered on 01/18/19 13:01; Admin Dose 100 MG; Start 01/13/19 at 09:00 Lactulose (Enulose) 20 gm BID PO Last administered on 01/17/19 13:47; Admin D ose 20 GM; Start 01/13/19 at 09:00 Lorazepam (Ativan) 1 mg BID PRN PO ANXIETY Last administered on 01/14/19 20:36; Admin Dose 1 MG; Start 01/13/19 at 06:30 Rifaximin (Xifaxan) 550 mg BID PO Last administered on 01/18/19 09:03; Admin Dose 550 MG; Start 01/13/19 at 09:00 Sodium Bicarbonate (Sodium Bicarbonate Tab) 325 mg TID PO Last administered on 01/18/19 13:01; Admin Dose 325 MG; Start 01/13/19 at 09:00 Tamsulosin HCl (Flomax) 0.4 mg HS PO Last administered on 01/17/19 20:44; Admin Dose 0.4 MG; Start 01/13/19 at 21:00 Thiamine HCl (Vitamin B1) 100 mg DAILY PO Last administered on 01/18/19 09:03; Admin Dose 100 MG; Start 01/13/19 at 09:00 Arformoterol Tartrate (Brovana (Neb)) 2 ml BID RESP THERAPY INH Last administered on 01/18/19 08:47; Admin Dose 2 ML; Start 01/13/19 at 09:00 Budesonide (Pulmicort (Neb)) 0.5 mg Q12H RESP THERAPY INH Last administered on 01/18/19 08:57; Admin Dose 0.5 MG; Start 01/13/19 at 09:00 Dorzolamide/ Timolol (Cosopt Pf Eye Drops) 1 drop BID BOTH EYES Last administered on 01/18/19 09:07; Admin Dose 1 DROP; Start 01/13/19 at 11:30 Nicotine (Nicoderm 21 Mg/ 24hr) 1 patch DAILY TRANSDERM Last administered on 01/18/19 09:17; Admin Dose 1 PATCH; Start 01/14/19 at 09:00 Famotidine (Pepcid) 20 mg Q12 PO Last administered on 01/18/19 09:05; Admin Dose 20 MG; Start 01/13/19 at 21:00 Amlodipine Besylate (Norvasc) 5 mg DAILY PO Last administered on 01/18/19 09:06; Admin Dose 5 MG; Start 01/15/19 at 09:00 Hydromorphone HCl (Dilaudid) 1.5 mg Q4H PRN IV SEVERE PAIN LEVEL 7-10 Last administered on 01/18/19 13:02; Admin Dose 1.5 MG; Start 01/15/19 at 05:30 Doxycycline Hyclate (Vibramycin) 100 mg 0800,2000 PO Last administered on 01/18/19 09:02; Admin Dose 100 MG; Start 01/15/19 at 20:00 Furosemide (Lasix) 20 mg DAILY PO Last administered on 01/18/19 09:04; Admin Dose 20 MG; Start 01/16/19 at 09:00 Acetaminophen/ Hydrocodone Bitart ([place] (5/325)) 1 tab Q4H PRN PO PAIN Last administered on 01/18/19 12:03; Admin Dose 1 TAB; Start 01/16/19 at 01:00 Buspirone HCl (Buspar) 10 mg BID PO Last administered on 01/18/19 09:05; Admin Dose 10 MG; Start 01/16/19 at 12:30 Meropenem/Sodium Chloride 50 ml @ 100 mls/hr Q12 IVPB Last administered on 01/18/19 15:06; Admin Dose 100 MLS/HR; Start 01/18/19 at 14:30 CHLOÉ TORRE MD Jan 18, 2019 15:27
[2019-01-18 20:10] VITALS: BP 143/65; PULSE 79; RESP 18
[2019-01-18] MEDS: TAMSULOSIN (SR) 0.4 MG CAP PO SCH (20:35)
[2019-01-18] MEDS: DOCUSATE SODIUM 100 MG CAP PO SCH (20:35)
[2019-01-19] MEDS: HYDROCODONE/APAP (5/325) TAB PO PRN ×5 (01:07→18:18)
[2019-01-19] MEDS: HYDROmorphONE 1 MG/ML SYG IV PRN ×5 (02:05→19:53)
[2019-01-19 02:10] VITALS: BP 149/70; PULSE 72; RESP 18
[2019-01-19] MEDS: LORAZEPAM 2 MG INJ IV PRN ×3 (04:01→21:47)
[2019-01-19] MEDS: LEVOTHYROXINE 75 MCG TAB PO SCH (05:10)
[2019-01-19 08:02] VITALS: BP 162/74; PULSE 75; RESP 18
[2019-01-19] MEDS: ARFORMOTEROL TARTRATE 15MCG/2 ML AMP INH SCH ×2 (08:50→19:54)
[2019-01-19] MEDS: BUDESONIDE (NEB) 0.5MG/2ML AMP INH SCH ×2 (08:58→19:57)
[2019-01-19] MEDS: DORZOLAMIDE/TIMOLOL/PF 0.2 ML DROPERETTE BOTH EYES SCH ×3 (09:00→21:00)
[2019-01-19] MEDS: LACTULOSE 30ML CUP PO SCH ×3 (09:00→21:45)
[2019-01-19] MEDS: DOXYCYCLINE 100 MG TAB PO SCH ×2 (09:09→21:52)
[2019-01-19] MEDS: GABAPENTIN 100 MG CAP PO SCH ×3 (09:10→21:00)
[2019-01-19] MEDS: NICOTINE (21 MG/24 HR) PATCH TRANSDERM SCH (09:10)
[2019-01-19] MEDS: NA BICARBONATE 650 MG TAB PO SCH ×3 (09:10→21:46)
[2019-01-19] MEDS: FERROUS SULFATE (EC) 325 MG TAB PO SCH (09:10)
[2019-01-19] MEDS: THIAMINE 100 MG TAB PO SCH (09:11)
[2019-01-19] MEDS: BUSPIRONE 10 MG TAB PO SCH ×2 (09:11→21:46)
[2019-01-19] MEDS: METOPROLOL (XL) 50 MG TAB PO SCH (09:11)
[2019-01-19] MEDS: ASCORBIC ACID 500 MG TAB PO SCH (09:11)
[2019-01-19] MEDS: FOLIC ACID 1 MG TAB PO SCH (09:11)
[2019-01-19] MEDS: ALLOPURINOL 100 MG TAB PO SCH (09:11)
[2019-01-19] MEDS: RIFAXIMIN 550 MG TAB PO SCH ×2 (09:11→21:46)
[2019-01-19] MEDS: FAMOTIDINE 20 MG TAB PO SCH ×2 (09:11→21:48)
[2019-01-19] MEDS: FUROSEMIDE 20 MG TAB PO SCH (09:12)
[2019-01-19] MEDS: SPIRONOLACTONE 50 MG TAB PO SCH (09:12)
[2019-01-19] MEDS: AMLODIPINE 5 MG TAB PO SCH (09:12)
[2019-01-19] MEDS: MEROPENEM 500MG/50 ML (PMX) 50 ML IVPB SCH ×2 (09:24→21:49)
--- NOTE | 2019-01-19 10:21 | CONS ---
Assessment/Plan Assessment/Plan Hospital Course (Demo Recall) 63 yo male Interval hx: No acute events. labs pending. WBC yesterday was 20 1. Microcytic hypochromic anemia, most probably related to iron deficiency. -anemia work up from previous visit last week noted. NEG FOB -EGD done April 2018 showed duodenal ulcer and gastritis -hgb stable 2. 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 -US on 01/07 did not ascites 3. Nicotine dependence 4. Congestive heart failure. -EF of 60% 5. Chronic obstructive pulmonary disease. 6. Renal failure. PLAN: CEA pending Pain management Continue pepcid, lasix and aldactone Still would like to hold off on colonoscopy Pt examined and plan of care discussed with Dr. Casiano Consultation Date/Type/Reason Admit Date/Time Jan 11, 2019 at 09:53 Initial Consult Date 01/11/19 Requesting Provider: KOKO MARLOW MD Date/Time of Note DATE: 01/19/19 TIME: 10:17 Exam/Review of Systems Exam Vitals Vital Signs Date Temp Pulse Resp B/P (MAP) Pulse Ox O2 O2 Flow FiO2 Time Delivery Rate 01/19/19 94 18 97 21 08:50 01/19/19 98.1 162/74 08:02 (103) 01/17/19 Room Air 14:14 Intake and Output 01/18/19 01/18/19 01/19/19 1515:00 23:00 07:00 IntakeIntake Total 480 ml 390 ml 1675 ml OutputOutput Total 300 ml 200 ml 1700 ml BalanceBalance 180 ml 190 ml -25 ml Constitutional: alert, oriented Head: normocephalic Eyes: nl sclera, PERRL Respiratory: clear to auscultation, diminished breath sounds Cardiovascular: regular rate and rhythm Gastrointestinal: soft, distended Musculoskeletal: muscle weakness Extremities: other (BLE red, edema) Neurological: nl mental status Results Result Diagram: 01/18/19 1120 01/18/19 0638 Results 24hrs Laboratory Tests Test 01/18/19 11:20 White Blood Count 20.8 #H Red Blood Count 4.34 L Hemoglobin 9.3 L Hematocrit 33.4 L Mean Corpuscular Volume 77.0 L Mean Corpuscular Hemoglobin 21.4 L Mean Corpuscular Hemoglobin Concent 27.8 L Red Cell Distribution Width 23.2 H Platelet Count 204 # Mean Platelet Volume Immature Granulocytes % 6.800 H Neutrophils % Segmented Neutrophils % (Manual) 64 Band Neutrophils % (Manual) 3 Lymphocytes % Lymphocytes % (Manual) 5 L Monocytes % Monocytes % (Manual) 24 H Eosinophils % Eosinophils % (Manual) 2 Basophils % Basophils % (Manual) 1 Myelocytes % (Manual) 1 H Nucleated Red Blood Cells % 0.1 H Immature Granulocytes # 1.410 H Neutrophils # Neutrophils # (Manual) 13.4 H Band Neutrophils # 0.6 Lymphocytes (Manual) 1.0 Lymphocytes # Monocytes # Monocytes # (Manual) 4.9 H Eosinophils # Basophils # Basophils # (Manual) 0.2 H Myelocytes # 0.2 H Nucleated Red Blood Cells # Platelet Estimate NORMAL Giant Platelets 2 H Polychromasia 3+ Hypochromasia 3+ Poikilocytosis 2+ Anisocytosis 2+ Microcytosis 1+ Macrocytosis 1+ Ovalocytes 1+ Elliptocytes 1+ Medications Medication Current Medications IV Flush (NS 3 ml) 3 ml PER PROTOCOL IV ; Start 01/11/19 at 13:00 Ondansetron HCl (Zofran Inj) 4 mg Q6H PRN IV NAUSEA/VOMITING; Start 01/11/19 at 13:00 Acetaminophen (Tylenol Tab) 650 mg Q6H PRN PO .PAIN 1-3 OR TEMP; Start 01/11/19 at 13:00 Albuterol (Proventil 0.083% (Neb)) 2.5 mg Q6 PRN HHN shortness of breath; Start 01/11/19 at 13:00 Spironolactone (Aldactone) 50 mg DAILY PO Last administered on 01/19/19at 09:12; Admin Dose 50 MG; Start 01/12/19 at 09:00 Metoprolol Succinate (Toprol Xl) 50 mg DAILY PO Last administered on 01/19/19at 09:11; Admin Dose 50 MG; Start 01/12/19 at 09:00 Lorazepam (Ativan) 0.5 mg Q6H PRN IV ANXIETY Last administered on 01/19/19at 04:01; Admin Dose 0.5 MG; Start 01/11/19 at 23:00 Clonidine (Catapres) 0.1 mg Q6H PRN PO systolic BP > 160 Last administered on 01/12/19at 21:31; Admin Dose 0.1 MG; Start 01/12/19 at 21:00 Levothyroxine Sodium (Synthroid) 225 mcg DAILY@06 PO Last administered on 01/19/19 05:10; Admin Dose 225 MCG; Start 01/13/19 at 06:00 Allopurinol (Zyloprim) 100 mg DAILY PO Last administered on 01/19/19 09:11; Admin Dose 100 MG; Start 01/13/19 at 09:00 Ascorbic Acid (Vitamin C) 500 mg DAILY PO Last administered on 01/19/19 09:11; Admin Dose 500 MG; Start 01/13/19 at 09:00 Docusate Sodium (Colace) 200 mg QHS PO Last administered on 01/18/19 20:35; Admin Dose 200 MG; Start 01/13/19 at 21:00 Epoetin Ghulam-epbx (RETACRIT(non-esrd)) 10,000 unit Q48H SC Last administered on 01/17/19 16:54; Admin Dose 10,000 UNIT; Start 01/13/19 at 18:00 Ferrous Sulfate (Ferrous Sulfate (Ec)) 325 mg DAILY PO Last administered on 01/19/19 09:10; Admin Dose 325 MG; Start 01/13/19 at 09:00 Folic Acid (Folic Acid) 1 mg DAILY PO Last administered on 01/19/19 09:11; Admin Dose 1 MG; Start 01/13/19 at 09:00 Gabapentin (Neurontin) 100 mg TID PO Last administered on 01/19/19 09:10; Admin Dose 100 MG; Start 01/13/19 at 09:00 Lactulose (Enulose) 20 gm BID PO Last administered on 01/18/19 20:36; Admin Dose 20 GM; Start 01/13/19 at 09:00 Lorazepam (Ativan) 1 mg BID PRN PO ANXIETY Last administered on 01/14/19 20:36; Admin Dose 1 MG; Start 01/13/19 at 06:30 Rifaximin (Xifaxan) 550 mg BID PO Last administered on 01/19/19 09:11; Admin Dose 550 MG; Start 01/13/19 at 09:00 Sodium Bicarbonate (Sodium Bicarbonate Tab) 325 mg TID PO Last administered on 01/19/19 09:10; Admin Dose 325 MG; Start 01/13/19 at 09:00 Tamsulosin HCl (Flomax) 0.4 mg HS PO Last administered on 01/18/19 20:35; Admin Dose 0.4 MG; Start 01/13/19 at 21:00 Thiamine HCl (Vitamin B1) 100 mg DAILY PO Last administered on 01/19/19 09:11; Admin Dose 100 MG; Start 01/13/19 at 09:00 Arformoterol Tartrate (Brovana (Neb)) 2 ml BID RESP THERAPY INH Last administered on 01/19/19 08:50; Admin Dose 2 ML; Start 01/13/19 at 09:00 Budesonide (Pulmicort (Neb)) 0.5 mg Q12H RESP THERAPY INH Last administered on 01/19/19 08:58; Admin Dose 0.5 MG; Start 01/13/19 at 09:00 Dorzolamide/ Timolol (Cosopt Pf Eye Drops) 1 drop BID BOTH EYES Last adm inistered on 01/18/19 09:07; Admin Dose 1 DROP; Start 01/13/19 at 11:30 Nicotine (Nicoderm 21 Mg/ 24hr) 1 patch DAILY TRANSDERM Last administered on 01/19/19 09:10; Admin Dose 1 PATCH; Start 01/14/19 at 09:00 Famotidine (Pepcid) 20 mg Q12 PO Last administered on 01/19/19 09:11; Admin Dose 20 MG; Start 01/13/19 at 21:00 Amlodipine Besylate (Norvasc) 5 mg DAILY PO Last administered on 01/19/19 09:12; Admin Dose 5 MG; Start 01/15/19 at 09:00 Hydromorphone HCl (Dilaudid) 1.5 mg Q4H PRN IV SEVERE PAIN LEVEL 7-10 Last administered on 01/19/19 06:13; Admin Dose 1.5 MG; Start 01/15/19 at 05:30 Doxycycline Hyclate (Vibramycin) 100 mg 0800,2000 PO Last administered on 01/19/19 09:09; Admin Dose 100 MG; Start 01/15/19 at 20:00 Furosemide (Lasix) 20 mg DAILY PO Last administered on 01/19/19 09:12; Admin Dose 20 MG; Start 01/16/19 at 09:00 Acetaminophen/ Hydrocodone Bitart ([place] (5/325)) 1 tab Q4H PRN PO PAIN Last administered on 01/19/19 09:10; Admin Dose 1 TAB; Start 01/16/19 at 01:00 Buspirone HCl (Buspar) 10 mg BID PO Last administered on 01/19/19 09:11; Admin Dose 10 MG; Start 01/16/19 at 12:30 Meropenem/Sodium Chloride 50 ml @ 100 mls/hr Q12 IVPB Last administered on 01/05 09:24; Admin Dose 100 MLS/HR; Start 01/18/19 at 14:30 DEYVI HAN Jan 19, 2019 10:21
--- NOTE | 2019-01-19 14:01 | CONS ---
Assessment/Plan Assessment/Plan Hospital Course (Demo Recall) Alert eating lunch looks comfortable, no fevers overnight WBC 21.3 neutrophils 65 BUN 42 creatinine 1.49 Abdominal ultrasound revealed no ascites Antimicrobials: Merrem doxycycline Physical examination: This is a wasted well-developed chronically ill-appearing elderly man who is in no distress. Head atraumatic normocephalic sclera nonicteric. Neck is supple chest rise symmetrical breath sounds diminished bases. Heart: S1-S2. Abdomen soft bowel sounds present. Extremities without B LE edema, mild erythema, no cyanosis. Assessment: 1. Systemic inflammatory response syndrome with ongoing leukocytosis, clinically stable 2. S/p COPD exacerbation 3. Alcohol abuse 4. Bilateral lower extremities chronic venous stasis 5. Cirrhosis with recurrent ascites 6. Chronic kidney disease 7. CHF 8. Noncompliance Plan: Clinically unchanged, will order blood and urine cultures and chest x-ray, continue present care and antibiotics for now Consultation Date/Type/Reason Admit Date/Time Jan 11, 2019 at 09:53 Initial Consult Date Type of Consult id Requesting Provider: KOKO MARLOW MD Date/Time of Note DATE: 01/19/19 TIME: 14:00 Exam/Review of Systems Exam Vitals Vital Signs Date Temp Pulse Resp B/P (MAP) Pulse Ox O2 O2 Flow FiO2 Time Delivery Rate 01/19/19 94 18 97 21 08:50 01/19/19 98.1 162/74 08:02 (103) 01/17/19 Room Air 14:14 Intake and Output 01/18/19 01/18/19 01/19/19 1515:00 23:00 07:00 IntakeIntake Total 480 ml 390 ml 1675 ml OutputOutput Total 300 ml 200 ml 1700 ml BalanceBalance 180 ml 190 ml -25 ml Results Result Diagram: 01/19/19 1135 01/19/19 1135 Results 24hrs Laboratory Tests Test 01/19/19 11:35 White Blood Count 21.3 H Red Blood Count 4.55 L Hemoglobin 9.8 L Hematocrit 35.4 L Mean Corpuscular Volume 77.8 L Mean Corpuscular Hemoglobin 21.5 L Mean Corpuscular Hemoglobin Concent 27.7 L Red Cell Distribution Width 23.8 H Platelet Count 210 Mean Platelet Volume Immature Granulocytes % 7.200 H Neutrophils % Segmented Neutrophils % (Manual) 65 Band Neutrophils % (Manual) 3 Lymphocytes % Lymphocytes % (Manual) 8 L Monocytes % Monocytes % (Manual) 10 Eosinophils % Eosinophils % (Manual) 6 Basophils % Basophils % (Manual) 2 Metamyelocytes % (manual) 1 H Myelocytes % (Manual) 5 H Nucleated Red Blood Cells % 0.0 Immature Granulocytes # 1.540 H Neutrophils # Neutrophils # (Manual) 14.0 H Band Neutrophils # 0.6 Lymphocytes (Manual) 1.7 Lymphocytes # Monocytes # Monocytes # (Manual) 2.1 H Eosinophils # Basophils # Basophils # (Manual) 0.4 H Metamyelocytes # 0.2 H Myelocytes # 1.0 H Nucleated Red Blood Cells # Platelet Estimate NORMAL Giant Platelets 3 H Polychromasia 1+ Hypochromasia 3+ Poikilocytosis 2+ Anisocytosis 2+ Microcytosis 2+ Macrocytosis 1+ Elliptocytes 1+ Prothrombin Time 15.3 H Prothrombin Time Ratio 1.2 INR International Normalized Ratio 1.20 Activated Partial Thromboplast Time 31.9 Sodium Level 135 Potassium Level 5.1 Chloride Level 107 Carbon Dioxide Level 20 L Anion Gap 8 Blood Urea Nitrogen 42 H Creatinine 1.49 H Est Glomerular Filtrat Rate mL/min 48 L Glucose Level 92 Calcium Level 9.0 Magnesium Level 1.7 Total Bilirubin 0.2 Direct Bilirubin 0.00 Indirect Bilirubin 0.2 Aspartate Amino Transf (AST/SGOT) 53 H Alanine Aminotransferase (ALT/SGPT) 50 Alkaline Phosphatase 124 H Total Protein 7.5 Albumin 4.1 Globulin 3.40 H Albumin/Globulin Ratio 1.20 Carcinoembryonic Antigen 3.2 Medications Medication Current Medications IV Flush (NS 3 ml) 3 ml PER PROTOCOL IV ; Start 01/11/19 at 13:00 Ondansetron HCl (Zofran Inj) 4 mg Q6H PRN IV NAUSEA/VOMITING; Start 01/11/19 at 13:00 Acetaminophen (Tylenol Tab) 650 mg Q6H PRN PO .PAIN 1-3 OR TEMP; Start 01/11/19 at 13:00 Albuterol (Proventil 0.083% (Neb)) 2.5 mg Q6 PRN HHN shortness of breath; Start 01/11/19 at 13:00 Spironolactone (Aldactone) 50 mg DAILY PO Last administered on 01/19/19at 09:12; Admin Dose 50 MG; Start 01/12/19 at 09:00 Metoprolol Succinate (Toprol Xl) 50 mg DAILY PO Last administered on 01/19/19 09:11; Admin Dose 50 MG; Start 01/12/19 at 09:00 Lorazepam (Ativan) 0.5 mg Q6H PRN IV ANXIETY Last administered on 01/19/19 11:56; Admin Dose 0.5 MG; Start 01/11/19 at 23:00 Clonidine (Catapres) 0.1 mg Q6H PRN PO systolic BP > 160 Last administered on 01/12/19 21:31; Admin Dose 0.1 MG; Start 01/12/19 at 21:00 Levothyroxine Sodium (Synthroid) 225 mcg DAILY@06 PO Last administered on 01/19/19 05:10; Admin Dose 225 MCG; Start 01/13/19 at 06:00 Allopurinol (Zyloprim) 100 mg DAILY PO Last administered on 01/19/19 09:11; Admin Dose 100 MG; Start 01/13/19 at 09:00 Ascorbic Acid (Vitamin C) 500 mg DAILY PO Last administered on 01/19/19 09:11; Admin Dose 500 MG; Start 01/13/19 at 09:00 Docusate Sodium (Colace) 200 mg QHS PO Last administered on 01/18/19 20:35; Admin Dose 200 MG; Start 01/13/19 at 21:00 Epoetin Ghulam-epbx (RETACRIT(non-esrd)) 10,000 unit Q48H SC Last administered on 01/17/19 16:54; Admin Dose 10,000 UNIT; Start 01/13/19 at 18:00 Ferrous Sulfate (Ferrous Sulfate (Ec)) 325 mg DAILY PO Last administered on 01/19/19 09:10; Admin Dose 325 MG; Start 01/13/19 at 09:00 Folic Acid (Folic Acid) 1 mg DAILY PO Last administered on 01/19/19 09:11; Admin Dose 1 MG; Start 01/13/19 at 09:00 Gabapentin (Neurontin) 100 mg TID PO Last administered on 01/19/19 13:09; Admin Dose 100 MG; Start 01/13/19 at 09:00 Lactulose (Enulose) 20 gm BID PO Last administered on 01/18/19 20:36; Admin Dose 20 GM; Start 01/13/19 at 09:00 Lorazepam (Ativan) 1 mg BID PRN PO ANXIETY Last administered on 01/14/19 20:3 6; Admin Dose 1 MG; Start 01/13/19 at 06:30 Rifaximin (Xifaxan) 550 mg BID PO Last administered on 01/19/19 09:11; Admin Dose 550 MG; Start 01/13/19 at 09:00 Sodium Bicarbonate (Sodium Bicarbonate Tab) 325 mg TID PO Last administered on 01/19/19 13:09; Admin Dose 325 MG; Start 01/13/19 at 09:00 Tamsulosin HCl (Flomax) 0.4 mg HS PO Last administered on 01/18/19 20:35; Admin Dose 0.4 MG; Start 01/13/19 at 21:00 Thiamine HCl (Vitamin B1) 100 mg DAILY PO Last administered on 01/19/19 09:11; Admin Dose 100 MG; Start 01/13/19 at 09:00 Arformoterol Tartrate (Brovana (Neb)) 2 ml BID RESP THERAPY INH Last administered on 01/19/19 08:50; Admin Dose 2 ML; Start 01/13/19 at 09:00 Budesonide (Pulmicort (Neb)) 0.5 mg Q12H RESP THERAPY INH Last administered on 01/19/19 08:58; Admin Dose 0.5 MG; Start 01/13/19 at 09:00 Dorzolamide/ Timolol (Cosopt Pf Eye Drops) 1 drop BID BOTH EYES Last administ ered on 01/18/19 09:07; Admin Dose 1 DROP; Start 01/13/19 at 11:30 Nicotine (Nicoderm 21 Mg/ 24hr) 1 patch DAILY TRANSDERM Last administered on 01/19/19 09:10; Admin Dose 1 PATCH; Start 01/14/19 at 09:00 Famotidine (Pepcid) 20 mg Q12 PO Last administered on 01/19/19 09:11; Admin Dose 20 MG; Start 01/13/19 at 21:00 Amlodipine Besylate (Norvasc) 5 mg DAILY PO Last administered on 01/19/19 09:12; Admin Dose 5 MG; Start 01/15/19 at 09:00 Hydromorphone HCl (Dilaudid) 1.5 mg Q4H PRN IV SEVERE PAIN LEVEL 7-10 Last administered on 01/19/19 10:56; Admin Dose 1.5 MG; Start 01/15/19 at 05:30 Doxycycline Hyclate (Vibramycin) 100 mg 0800,2000 PO Last administered on 01/19/19 09:09; Admin Dose 100 MG; Start 01/15/19 at 20:00 Furosemide (Lasix) 20 mg DAILY PO Last administered on 01/19/19 09:12; Admin Dose 20 MG; Start 01/16/19 at 09:00 Acetaminophen/ Hydrocodone Bitart ([place] (5/325)) 1 tab Q4H PRN PO PAIN Last administered on 01/19/19 13:10; Admin Dose 1 TAB; Start 01/16/19 at 01:00 Buspirone HCl (Buspar) 10 mg BID PO Last administered on 01/19/19 09:11; Admin Dose 10 MG; Start 01/16/19 at 12:30 Meropenem/Sodium Chloride 50 ml @ 100 mls/hr Q12 IVPB Last administered on 01/19/19 09:24; Admin Dose 100 MLS/HR; Start 01/18/19 at 14:30 MELISSA NASH NP Jan 19, 2019 14:01
--- NOTE | 2019-01-19 14:16 | PN ---
DATE: 01/18/2019 SUBJECTIVE: Follow up on alcoholic liver cirrhosis, chronic kidney disease, congestive heart failure . The patient is breathing comfortably at rest. He does get short of breath with exertion. Denies any chest pain. No reported hematemesis or melena. No reported fever or chills. PHYSICAL EXAMINATION: GENERAL: Revealed the patient to be awake, alert. VITAL SIGNS: Temperature 98, pulse 89, respiration 18, blood pressure 160/71, O2 sat 99% on room air . HEENT: No eye discharge or redness. Conjunctivae and lids are normal. Oropharynx is clear. NECK: Supple. No mass, lymph node, thyromegaly. CHEST: Fairly clear. CARDIOVASCULAR: S1, S2 normal. ABDOMEN: Soft, nontender. EXTREMITIES: No significant edema. NEUROLOGIC: The patient is awake, alert, fairly oriented. LABORATORY DATA: WBC 20.8 up from 15.6, hemoglobin 9.3, platelet 204. Chemistry: Sodium 142, potas sium 5, BUN 44, creatinine 1.6. IMPRESSION: 1. Worsening leukocytosis. The patient was seen by infectious disease and has been started on empir ic meropenem and also ultrasound-guided paracentesis has been ordered to rule out spontaneous bacteri al peritonitis. 2. Alcoholic cirrhosis of liver. Continue Lasix, Pepcid, folic acid, rifaximin, lactulose, thiamine and Aldactone. 3. Hypertension. Continue metoprolol. 4. Hypothyroidism. Continue Synthroid. 5. Chronic obstructive pulmonary disease. Continue Pulmicort and Brovana. 6. Chronic pain syndrome. The patient's pain seems to be better with a recent increase in Dilaudid dose. 7. Anxiety. Continue BuSpar. Dictated By: KOKO MARLOW MD AB/NTS Conf#: [id number] DID#: [id number] CC: WERNER KING MD; LISSET MONDRAGON B[employer] SCIENTIST;*EndCC*
[2019-01-19 14:27] VITALS: BP 154/67; PULSE 82; RESP 19
--- NOTE | 2019-01-19 14:51 | CONS ---
Assessment/Plan Assessment/Plan Assessment/Plan (Daily) 1. acute on chronic renal failure due to Type II hepatorenal syndrome 2. SIRS 3. anemia of CKD 5. Decompensated Liver cirrhosis with Symptomatic ascites 6. H/O HTN 7. h/o Liver cirrhosis with ascites 8. H/o Diastolic CHF 9. Bilateral LE chronic venous stasis 10.H/o BPH on flomax Plan: Continue IV abx as per ID , renally dose all abx , monitor electorlytes and replace as needed, WBC 21 BUN/Cr 42/1.49-Electrolyte stable today , Continue lasix to 20mg po daily, , spironolactone 50mg po daily , Toprol Xl 50mg po daily , amlodipine 5 mg po daily on Sodium bicarbonte 325mg PO TID Flomax 0.4mg po daily for BPH will follow up Consultation Date/Type/Reason Admit Date/Time Jan 11, 2019 at 09:53 Initial Consult Date 01/11/19 Type of Consult Nephrology Requesting Provider: KOKO MARLOW MD Date/Time of Note DATE: 01/19/19 TIME: 14:51 Exam/Review of Systems Exam Vitals Vital Signs Date Temp Pulse Resp B/P (MAP) Pulse Ox O2 O2 Flow FiO2 Time Delivery Rate 01/19/19 98.4 82 19 154/67 97 14:27 (96) 01/19/19 21 08:50 01/17/19 Room Air 14:14 Intake and Output 01/18/19 01/18/19 01/19/19 1515:00 23:00 07:00 IntakeIntake Total 480 ml 390 ml 1675 ml OutputOutput Total 300 ml 200 ml 1700 ml BalanceBalance 180 ml 190 ml -25 ml Exam Constitutional: alert, awake, on acute distress Respiratory: clear to auscultation, no crackles no wheezing Cardiovascular: regular rate and rhythm, nl pulses Gastrointestinal: soft, non-tender, ascites, distended Musculoskeletal: joint tenderness, muscle weakness, swelling Extremities: chronic LE venous stasis Neurological: COUTURE ALTERATIONS DRESSMAKER II-XII intact, nl mental status, nl speech, nl strength Lymph: nl lymph nodes Results Result Diagram: 01/19/19 1135 01/19/19 1135 Results 24hrs Laboratory Tests Test 01/19/19 11:35 White Blood Count 21.3 H Red Blood Count 4.55 L Hemoglobin 9.8 L Hematocrit 35.4 L Mean Corpuscular Volume 77.8 L Mean Corpuscular Hemoglobin 21.5 L Mean Corpuscular Hemoglobin Concent 27.7 L Red Cell Distribution Width 23.8 H Platelet Count 210 Mean Platelet Volume Immature Granulocytes % 7.200 H Neutrophils % Segmented Neutrophils % (Manual) 65 Band Neutrophils % (Manual) 3 Lymphocytes % Lymphocytes % (Manual) 8 L Monocytes % Monocytes % (Manual) 10 Eosinophils % Eosinophils % (Manual) 6 Basophils % Basophils % (Manual) 2 Metamyelocytes % (manual) 1 H Myelocytes % (Manual) 5 H Nucleated Red Blood Cells % 0.0 Immature Granulocytes # 1.540 H Neutrophils # Neutrophils # (Manual) 14.0 H Band Neutrophils # 0.6 Lymphocytes (Manual) 1.7 Lymphocytes # Monocytes # Monocytes # (Manual) 2.1 H Eosinophils # Basophils # Basophils # (Manual) 0.4 H Metamyelocytes # 0.2 H Myelocytes # 1.0 H Nucleated Red Blood Cells # Platelet Estimate NORMAL Giant Platelets 3 H Polychromasia 1+ Hypochromasia 3+ Poikilocytosis 2+ Anisocytosis 2+ Microcytosis 2+ Macrocytosis 1+ Elliptocytes 1+ Prothrombin Time 15.3 H Prothrombin Time Ratio 1.2 INR International Normalized Ratio 1.20 Activated Partial Thromboplast Time 31.9 Sodium Level 135 Potassium Level 5.1 Chloride Level 107 Carbon Dioxide Level 20 L Anion Gap 8 Blood Urea Nitrogen 42 H Creatinine 1.49 H Est Glomerular Filtrat Rate mL/min 48 L Glucose Level 92 Calcium Level 9.0 Magnesium Level 1.7 Total Bilirubin 0.2 Direct Bilirubin 0.00 Indirect Bilirubin 0.2 Aspartate Amino Transf (AST/SGOT) 53 H Alanine Aminotransferase (ALT/SGPT) 50 Alkaline Phosphatase 124 H Total Protein 7.5 Albumin 4.1 Globulin 3.40 H Albumin/Globulin Ratio 1.20 Carcinoembryonic Antigen 3.2 Medications Medication Current Medications IV Flush (NS 3 ml) 3 ml PER PROTOCOL IV ; Start 01/11/19 at 13:00 Ondansetron HCl (Zofran Inj) 4 mg Q6H PRN IV NAUSEA/VOMITING; Start 01/11/19 at 13:00 Acetaminophen (Tylenol Tab) 650 mg Q6H PRN PO .PAIN 1-3 OR TEMP; Start 01/11/19 at 13:00 Albuterol (Proventil 0.083% (Neb)) 2.5 mg Q6 PRN HHN shortness of breath; Start 01/11/19 at 13:00 Spironolactone (Aldactone) 50 mg DAILY PO Last administered on 01/19/19 09:12; Admin Dose 50 MG; Start 01/12/19 at 09:00 Metoprolol Succinate (Toprol Xl) 50 mg DAILY PO Last administered on 01/19/19 09:11; Admin Dose 50 MG; Start 01/12/19 at 09:00 Lorazepam (Ativan) 0.5 mg Q6H PRN IV ANXIETY Last administered on 01/19/19 11:56; Admin Dose 0.5 MG; Start 01/11/19 at 23:00 Clonidine (Catapres) 0.1 mg Q6H PRN PO systolic BP > 160 Last administered on 01/12/19 21:31; Admin Dose 0.1 MG; Start 01/12/19 at 21:00 Levothyroxine Sodium (Synthroid) 225 mcg DAILY@06 PO Last administered on 01/19/19 05:10; Admin Dose 225 MCG; Start 01/13/19 at 06:00 Allopurinol (Zyloprim) 100 mg DAILY PO Last administered on 01/19/19 09:11; Admin Dose 100 MG; Start 01/13/19 at 09:00 Ascorbic Acid (Vitamin C) 500 mg DAILY PO Last administered on 01/19/19 09:11; Admin Dose 500 MG; Start 01/13/19 at 09:00 Docusate Sodium (Colace) 200 mg QHS PO Last administered on 01/18/19 20:35; Admin Dose 200 MG; Start 01/13/19 at 21:00 Epoetin Ghulam-epbx (RETACRIT(non-esrd)) 10,000 unit Q48H SC Last administered on 01/17/19 16:54; Admin Dose 10,000 UNIT; Start 01/13/19 at 18:00 Ferrous Sulfate (Ferrous Sulfate (Ec)) 325 mg DAILY PO Last administered on 01/19/19 09:10; Admin Dose 325 MG; Start 01/13/19 at 09:00 Folic Acid (Folic Acid) 1 mg DAILY PO Last administered on 01/19/19 09:11; Admin Dose 1 MG; Start 01/13/19 at 09:00 Gabapentin (Neurontin) 100 mg TID PO Last administered on 01/19/19 13:09; Admin Dose 100 MG; Start 01/13/19 at 09:00 Lactulose (Enulose) 20 gm BID PO Last administered on 01/18/19 20:36; Admin Dose 20 GM; Start 01/13/19 at 09:00 Lorazepam (Ativan) 1 mg BID PRN PO ANXIETY Last administered on 01/14/19 20:36; Admin Dose 1 MG; Start 01/13/19 at 06:30 Rifaximin (Xifaxan) 550 mg BID PO Last administered on 01/19/19 09:11; Admin Dose 550 MG; Start 01/13/19 at 09:00 Sodium Bicarbonate (Sodium Bicarbonate Tab) 325 mg TID PO Last administered on 01/19/19 13:09; Admin Dose 325 MG; Start 01/13/19 at 09:00 Tamsulosin HCl (Flomax) 0.4 mg HS PO Last administered on 01/18/19 20:35; Admin Dose 0.4 MG; Start 01/13/19 at 21:00 Thiamine HCl (Vitamin B1) 100 mg DAILY PO Last administered on 01/19/19 09:11; Admin Dose 100 MG; Start 01/13/19 at 09:00 Arformoterol Tartrate (Brovana (Neb)) 2 ml BID RESP THERAPY INH Last administered on 01/19/19 08:50; Admin Dose 2 ML; Start 01/13/19 at 09:00 Budesonide (Pulmicort (Neb)) 0.5 mg Q12H RESP THERAPY INH Last administered on 01/19/19 08:58; Admin Dose 0.5 MG; Start 01/13/19 at 09:00 Dorzolamide/ Timolol (Cosopt Pf Eye Drops) 1 drop BID BOTH EYES Last administered on 01/18/19 09:07; Admin Dose 1 DROP; Start 01/13/19 at 11:30 Nicotine (Nicoderm 21 Mg/ 24hr) 1 patch DAILY TRANSDERM Last administered on 01/19/19 09:10; Admin Dose 1 PATCH; Start 01/14/19 at 09:00 Famotidine (Pepcid) 20 mg Q12 PO Last administered on 01/19/19 09:11; Admin Do se 20 MG; Start 01/13/19 at 21:00 Amlodipine Besylate (Norvasc) 5 mg DAILY PO Last administered on 01/19/19 09:12; Admin Dose 5 MG; Start 01/15/19 at 09:00 Hydromorphone HCl (Dilaudid) 1.5 mg Q4H PRN IV SEVERE PAIN LEVEL 7-10 Last administered on 01/19/19 10:56; Admin Dose 1.5 MG; Start 01/15/19 at 05:30 Doxycycline Hyclate (Vibramycin) 100 mg 0800,1999 PO Last administered on 01/19/19 09:09; Admin Dose 100 MG; Start 01/15/19 at 20:00 Furosemide (Lasix) 20 mg DAILY PO Last administered on 01/19/19 09:12; Admin Dose 20 MG; Start 01/16/19 at 09:00 Acetaminophen/ Hydrocodone Bitart ([place] (5/325)) 1 tab Q4H PRN PO PAIN Last administered on 01/19/19 13:10; Admin Dose 1 TAB; Start 01/16/19 at 01:00 Buspirone HCl (Buspar) 10 mg BID PO Last administered on 01/19/19 09:11; Admin Dose 10 MG; Start 01/16/19 at 12:30 Meropenem/Sodium Chloride 50 ml @ 100 mls/hr Q12 IVPB Last administered on 01/19/19 09:24; Admin Dose 100 MLS/HR; Start 01/18/19 at 14:30 ELADIO DELGADO MD Jan 19, 2019 14:51
--- NOTE | 2019-01-19 17:21 | PN ---
Date/Time of Note Date/Time of Note DATE: 01/19/19 TIME: 17:21 Assessment/Plan VTE Prophylaxis Risk score (from [facility] [place]0 risk: 6 SCD applied (from [facility] [place]): Yes Pharmacological prophylaxis: NA/contraindicated Pharm contraindication: thrombocytopenia Lines/Catheters IV C[facility] Type (from [facility] Saline Lock Urinary Cath still in place: No Assessment/Plan Hospital Course Patient with increased leukocytosis, no fever, continued on Meropenem, follow- up on cultures and chest x-ray. Assessment/Plan -Shortness of breath, rule out acute coronary syndrome, cardiac enzymes are negative x3. -Acute on chronic diastolic congestive heart failure. Continue Lasix. Dr. Foley is following in cardiology consultation. -COPD exacerbation, continue bronchodilators, steroids, and oxygen supplementation. -Anemia, Dr. Mayes is following in gastroenterology consultation. -Alcoholic liver cirrhosis -Acute kidney injury on chronic kidney disease. Dr. Leung is following in nephrology consultation. -Bilateral lower extremities chronic venous stasis -Left foot plantar ulcer. Dr. Younger is following in podiatry consultation. -Obesity -Nicotine dependence, continue nicotine patch, cessation is strongly advised. -Ongoing alcohol use, cessation is strongly advised. -Poor medical compliance Further recommendations based on clinical course. Plan of care discussed with Dr. Lara. Result Diagram: 01/19/19 1135 01/19/19 1135 Results 24hrs Laboratory Tests Test 01/19/19 11:35 White Blood Count 21.3 H Red Blood Count 4.55 L Hemoglobin 9.8 L Hematocrit 35.4 L Mean Corpuscular Volume 77.8 L Mean Corpuscular Hemoglobin 21.5 L Mean Corpuscular Hemoglobin Concent 27.7 L Red Cell Distribution Width 23.8 H Platelet Count 210 Mean Platelet Volume Immature Granulocytes % 7.200 H Neutrophils % Segmented Neutrophils % (Manual) 65 Band Neutrophils % (Manual) 3 Lymphocytes % Lymphocytes % (Manual) 8 L Monocytes % Monocytes % (Manual) 10 Eosinophils % Eosinophils % (Manual) 6 Basophils % Basophils % (Manual) 2 Metamyelocytes % (manual) 1 H Myelocytes % (Manual) 5 H Nucleated Red Blood Cells % 0.0 Immature Granulocytes # 1.540 H Neutrophils # Neutrophils # (Manual) 14.0 H Band Neutrophils # 0.6 Lymphocytes (Manual) 1.7 Lymphocytes # Monocytes # Monocytes # (Manual) 2.1 H Eosinophils # Basophils # Basophils # (Manual) 0.4 H Metamyelocytes # 0.2 H Myelocytes # 1.0 H Nucleated Red Blood Cells # Platelet Estimate NORMAL Giant Platelets 3 H Polychromasia 1+ Hypochromasia 3+ Poikilocytosis 2+ Anisocytosis 2+ Microcytosis 2+ Macrocytosis 1+ Elliptocytes 1+ Prothrombin Time 15.3 H Prothrombin Time Ratio 1.2 INR International Normalized Ratio 1.20 Activated Partial Thromboplast Time 31.9 Sodium Level 135 Potassium Level 5.1 Chloride Level 107 Carbon Dioxide Level 20 L Anion Gap 8 Blood Urea Nitrogen 42 H Creatinine 1.49 H Est Glomerular Filtrat Rate mL/min 48 L Glucose Level 92 Calcium Level 9.0 Magnesium Level 1.7 Total Bilirubin 0.2 Direct Bilirubin 0.00 Indirect Bilirubin 0.2 Aspartate Amino Transf (AST/SGOT) 53 H Alanine Aminotransferase (ALT/SGPT) 50 Alkaline Phosphatase 124 H Total Protein 7.5 Albumin 4.1 Globulin 3.40 H Albumin/Globulin Ratio 1.20 Carcinoembryonic Antigen 3.2 Exam/Review of Systems Exam Vitals Vital Signs Date Temp Pulse Resp B/P (MAP) Pulse Ox O2 O2 Flow FiO2 Time Delivery Rate 01/19/19 98.4 82 19 154/67 97 14:27 (96) 01/19/19 21 08:50 01/17/19 Room Air 14:14 Intake and Output 01/18/19 01/18/19 01/19/19 1515:00 23:00 07:00 IntakeIntake Total 480 ml 390 ml 1675 ml OutputOutput Total 300 ml 200 ml 1700 ml BalanceBalance 180 ml 190 ml -25 ml Exam Constitutional: alert, oriented Respiratory: diminished breath sounds, wheezing Cardiovascular: regular rate and rhythm Gastrointestinal: soft, distended Extremities: normal pulses, edema, other (Bilateral lower extremities erythema) Neurological: nl mental status Skin: other (Left foot plantar ulcer) Results Results 24hrs Laboratory Tests Test 01/19/19 11:35 White Blood Count 21.3 H Red Blood Count 4.55 L Hemoglobin 9.8 L Hematocrit 35.4 L Mean Corpuscular Volume 77.8 L Mean Corpuscular Hemoglobin 21.5 L Mean Corpuscular Hemoglobin Concent 27.7 L Red Cell Distribution Width 23.8 H Platelet Count 210 Mean Platelet Volume Immature Granulocytes % 7.200 H Neutrophils % Segmented Neutrophils % (Manual) 65 Band Neutrophils % (Manual) 3 Lymphocytes % Lymphocytes % (Manual) 8 L Monocytes % Monocytes % (Manual) 10 Eosinophils % Eosinophils % (Manual) 6 Basophils % Basophils % (Manual) 2 Metamyelocytes % (manual) 1 H Myelocytes % (Manual) 5 H Nucleated Red Blood Cells % 0.0 Immature Granulocytes # 1.540 H Neutrophils # Neutrophils # (Manual) 14.0 H Band Neutrophils # 0.6 Lymphocytes (Manual) 1.7 Lymphocytes # Monocytes # Monocytes # (Manual) 2.1 H Eosinophils # Basophils # Basophils # (Manual) 0.4 H Metamyelocytes # 0.2 H Myelocytes # 1.0 H Nucleated Red Blood Cells # Platelet Estimate NORMAL Giant Platelets 3 H Polychromasia 1+ Hypochromasia 3+ Poikilocytosis 2+ Anisocytosis 2+ Microcytosis 2+ Macrocytosis 1+ Elliptocytes 1+ Prothrombin Time 15.3 H Prothrombin Time Ratio 1.2 INR International Normalized Ratio 1.20 Activated Partial Thromboplast Time 31.9 Sodium Level 135 Potassium Level 5.1 Chloride Level 107 Carbon Dioxide Level 20 L Anion Gap 8 Blood Urea Nitrogen 42 H Creatinine 1.49 H Est Glomerular Filtrat Rate mL/min 48 L Glucose Level 92 Calcium Level 9.0 Magnesium Level 1.7 Total Bilirubin 0.2 Direct Bilirubin 0.00 Indirect Bilirubin 0.2 Aspartate Amino Transf (AST/SGOT) 53 H Alanine Aminotransferase (ALT/SGPT) 50 Alkaline Phosphatase 124 H Total Protein 7.5 Albumin 4.1 Globulin 3.40 H Albumin/Globulin Ratio 1.20 Carcinoembryonic Antigen 3.2 Medications Medication Current Medications IV Flush (NS 3 ml) 3 ml PER PROTOCOL IV ; Start 01/11/19 at 13:00 Ondansetron HCl (Zofran Inj) 4 mg Q6H PRN IV NAUSEA/VOMITING; Start 01/11/19 at 13:00 Acetaminophen (Tylenol Tab) 650 mg Q6H PRN PO .PAIN 1-3 OR TEMP; Start 01/11/19 at 13:00 Albuterol (Proventil 0.083% (Neb)) 2.5 mg Q6 PRN HHN shortness of breath; Start 01/11/19 at 13:00 Spironolactone (Aldactone) 50 mg DAILY PO Last administered on 01/19/19 09:12; Admin Dose 50 MG; Start 01/12/19 at 09:00 Metoprolol Succinate (Toprol Xl) 50 mg DAILY PO Last administered on 01/19/19 09:11; Admin Dose 50 MG; Start 01/12/19 at 09:00 Lorazepam (Ativan) 0.5 mg Q6H PRN IV ANXIETY Last administered on 01/19/19 11:56; Admin Dose 0.5 MG; Start 01/11/19 at 23:00 Clonidine (Catapres) 0.1 mg Q6H PRN PO systolic BP > 160 Last administered on 01/12/19 21:31; Admin Dose 0.1 MG; Start 01/12/19 at 21:00 Levothyroxine Sodium (Synthroid) 225 mcg DAILY@06 PO Last administered on 01/19/19 05:10; Admin Dose 225 MCG; Start 01/13/19 at 06:00 Allopurinol (Zyloprim) 100 mg DAILY PO Last administered on 01/19/19 09:11; Admin Dose 100 MG; Start 01/13/19 at 09:00 Ascorbic Acid (Vitamin C) 500 mg DAILY PO Last administered on 01/19/19 09:11; Admin Dose 500 MG; Start 01/13/19 at 09:00 Docusate Sodium (Colace) 200 mg QHS PO Last administered on 01/18/19 20:35; Admin Dose 200 MG; Start 01/13/19 at 21:00 Epoetin Ghulam-epbx (RETACRIT(non-esrd)) 10,000 unit Q48H SC Last administered on 01/17/19 16:54; Admin Dose 10,000 UNIT; Start 01/13/19 at 18:00 Ferrous Sulfate (Ferrous Sulfate (Ec)) 325 mg DAILY PO Last administered on 01/19/19 09:10; Admin Dose 325 MG; Start 01/13/19 at 09:00 Folic Acid (Folic Acid) 1 mg DAILY PO Last administered on 01/19/19 09:11; Admin Dose 1 MG; Start 01/13/19 at 09:00 Gabapentin (Neurontin) 100 mg TID PO Last administered on 01/19/19 13:09; Admin Dose 100 MG; Start 01/13/19 at 09:00 Lactulose (Enulose) 20 gm BID PO Last administered on 01/18/19 20:36; Admin Dose 20 GM; Start 01/13/19 at 09:00 Lorazepam (Ativan) 1 mg BID PRN PO ANXIETY Last administered on 01/14/19 20:36; Admin Dose 1 MG; Start 01/13/19 at 06:30 Rifaximin (Xifaxan) 550 mg BID PO Last administered on 01/19/19 09:11; Admin Dose 550 MG; Start 01/13/19 at 09:00 Sodium Bicarbonate (Sodium Bicarbonate Tab) 325 mg TID PO Last administered on 01/19/19 13:09; Admin Dose 325 MG; Start 01/13/19 at 09:00 Tamsulosin HCl (Flomax) 0.4 mg HS PO Last administered on 01/18/19 20:35; Admin Dose 0.4 MG; Start 01/13/19 at 21:00 Thiamine HCl (Vitamin B1) 100 mg DAILY PO Last administered on 01/19/19 09:11; Admin Dose 100 MG; Start 01/13/19 at 09:00 Arformoterol Tartrate (Brovana (Neb)) 2 ml BID RESP THERAPY INH Last administered on 01/19/19 08:50; Admin Dose 2 ML; Start 01/13/19 at 09:00 Budesonide (Pulmicort (Neb)) 0.5 mg Q12H RESP THERAPY INH Last administered on 01/19/19 08:58; Admin Dose 0.5 MG; Start 01/13/19 at 09:00 Dorzolamide/ Timolol (Cosopt Pf Eye Drops) 1 drop BID BOTH EYES Last administered on 01/18/19 09:07; Admin Dose 1 DROP; Start 01/13/19 at 11:30 Nicotine (Nicoderm 21 Mg/ 24hr) 1 patch DAILY TRANSDERM Last administered on 01/19/19 09:10; Admin Dose 1 PATCH; Start 01/14/19 at 09:00 Famotidine (Pepcid) 20 mg Q12 PO Last administered on 01/19/19 09:11; Admin Dose 20 MG; Start 01/13/19 at 21:00 Amlodipine Besylate (Norvasc) 5 mg DAILY PO Last administered on 01/19/19 09:12; Admin Dose 5 MG; Start 01/15/19 at 09:00 Hydromorphone HCl (Dilaudid) 1.5 mg Q4H PRN IV SEVERE PAIN LEVEL 7-10 Last administered on 01/19/19 15:03; Admin Dose 1.5 MG; Start 01/15/19 at 05:30 Doxycycline Hyclate (Vibramycin) 100 mg 0800,2000 PO Last administered on 01/19/19 09:09; Admin Dose 100 MG; Start 01/15/19 at 20:00 Furosemide (Lasix) 20 mg DAILY PO Last administered on 01/19/19 09:12; Admin Dose 20 MG; Start 01/16/19 at 09:00 Acetaminophen/ Hydrocodone Bitart ([place] (5/325)) 1 tab Q4H PRN PO PAIN Last administered on 01/19/19 13:10; Admin Dose 1 TAB; Start 01/16/19 at 01:00 Buspirone HCl (Buspar) 10 mg BID PO Last administered on 01/19/19 09:11; Admin Dose 10 MG; Start 01/16/19 at 12:30 Meropenem/Sodium Chloride 50 ml @ 100 mls/hr Q12 IVPB Last administered on 01/19/19 09:24; Admin Dose 100 MLS/HR; Start 01/18/19 at 14:30 MILLICENT GOVEA Jan 19, 2019 17:21
[2019-01-19] MEDS: EPOETIN ALFA-EPBX (NON-ESRD 10,000 UNIT/ML VIAL SC SCH (18:00)
--- NOTE | 2019-01-19 19:04 | CONS ---
Assessment/Plan Assessment/Plan Hospital Course (Demo Recall) IMPRESSION: 1. Congestive heart failure exacerbation, diastolic, acute on chronic. 2. Hypertension-mildly elavated 3. Shortness of breath secondary to congestive heart failure exacerbation, d iastolic, acute on chronic. 4. Chronic renal failure. 5. Cirrhosis. 6. Ascites, recurrent. 7. Hypothyroidism. 8. History of ETOH abuse. 9. Anemia. 10.leukocytosis-worsening REcc: -ON med-surg -serial ecg's -Contineu lasix/aldactone and follow volume status closely and ascites -Continue toprol and CCB with slight increase to improve BP control -Continue lactulose -pain control -Continue abx's and f/u cx data -ID following Consultation Date/Type/Reason Admit Date/Time Jan 11, 2019 at 09:53 Initial Consult Date 01/12/19 Type of Consult Cardiology Reason for Consultation CHF Requesting Provider: KOKO MARLOW MD Date/Time of Note DATE: 01/19/19 TIME: 19:01 Exam/Review of Systems Vital Signs Vitals Vital Signs Date Temp Pulse Resp B/P (MAP) Pulse Ox O2 O2 Flow FiO2 Time Delivery Rate 01/19/19 98.4 82 19 154/67 97 14:27 (96) 01/19/19 21 08:50 01/17/19 Room Air 14:14 Intake and Output 01/18/19 01/18/19 01/19/19 1515:00 23:00 07:00 IntakeIntake Total 480 ml 390 ml 1675 ml OutputOutput Total 300 ml 200 ml 1700 ml BalanceBalance 180 ml 190 ml -25 ml Exam Exam Review of Systems: CONSTITUTIONAL: No fevers, chills. PULMONARY: No sob CARDIOVASCULAR: No chest pain/palpitations GASTROINTESTINAL: abd pain GENITOURINARY: No hematuria/dysuria. MUSCULOSKELETAL: No myagias/arthalgias. PSYCHIATRIC: The patient denies depression. NEUROLOGIC: No weakness Constitutional: other (sleeping, arousable) Psych: no complaints Head: normocephalic ENMT: mucosa pink and moist Neck: supple, jvd (9 cm water) Respiratory: diminished breath sounds (at bases/B) Cardiovascular: regular rate and rhythm Gastrointestinal: distended, tender (mild to palpation) Musculoskeletal: muscle tone (normal) Extremities: edema (bilateral) Labs Result Diagram: 01/19/19 1135 01/19/19 1135 Results 24hrs Laboratory Tests Test 01/19/19 11:35 White Blood Count 21.3 H Red Blood Count 4.55 L Hemoglobin 9.8 L Hematocrit 35.4 L Mean Corpuscular Volume 77.8 L Mean Corpuscular Hemoglobin 21.5 L Mean Corpuscular Hemoglobin Concent 27.7 L Red Cell Distribution Width 23.8 H Platelet Count 210 Mean Platelet Volume Immature Granulocytes % 7.200 H Neutrophils % Segmented Neutrophils % (Manual) 65 Band Neutrophils % (Manual) 3 Lymphocytes % Lymphocytes % (Manual) 8 L Monocytes % Monocytes % (Manual) 10 Eosinophils % Eosinophils % (Manual) 6 Basophils % Basophils % (Manual) 2 Metamyelocytes % (manual) 1 H Myelocytes % (Manual) 5 H Nucleated Red Blood Cells % 0.0 Immature Granulocytes # 1.540 H Neutrophils # Neutrophils # (Manual) 14.0 H Band Neutrophils # 0.6 Lymphocytes (Manual) 1.7 Lymphocytes # Monocytes # Monocytes # (Manual) 2.1 H Eosinophils # Basophils # Basophils # (Manual) 0.4 H Metamyelocytes # 0.2 H Myelocytes # 1.0 H Nucleated Red Blood Cells # Platelet Estimate NORMAL Giant Platelets 3 H Polychromasia 1+ Hypochromasia 3+ Poikilocytosis 2+ Anisocytosis 2+ Microcytosis 2+ Macrocytosis 1+ Elliptocytes 1+ Prothrombin Time 15.3 H Prothrombin Time Ratio 1.2 INR International Normalized Ratio 1.20 Activated Partial Thromboplast Time 31.9 Sodium Level 135 Potassium Level 5.1 Chloride Level 107 Carbon Dioxide Level 20 L Anion Gap 8 Blood Urea Nitrogen 42 H Creatinine 1.49 H Est Glomerular Filtrat Rate mL/min 48 L Glucose Level 92 Calcium Level 9.0 Magnesium Level 1.7 Total Bilirubin 0.2 Direct Bilirubin 0.00 Indirect Bilirubin 0.2 Aspartate Amino Transf (AST/SGOT) 53 H Alanine Aminotransferase (ALT/SGPT) 50 Alkaline Phosphatase 124 H Total Protein 7.5 Albumin 4.1 Globulin 3.40 H Albumin/Globulin Ratio 1.20 Carcinoembryonic Antigen 3.2 Medications Medications Current Medications IV Flush (NS 3 ml) 3 ml PER PROTOCOL IV ; Start 01/11/19 at 13:00 Ondansetron HCl (Zofran Inj) 4 mg Q6H PRN IV NAUSEA/VOMITING; Start 01/11/19 at 13:00 Acetaminophen (Tylenol Tab) 650 mg Q6H PRN PO .PAIN 1-3 OR TEMP; Start 01/11/19 at 13:00 Albuterol (Proventil 0.083% (Neb)) 2.5 mg Q6 PRN HHN shortness of breath; Start 01/11/19 at 13:00 Spironolactone (Aldactone) 50 mg DAILY PO Last administered on 01/19/19 09:12; Admin Dose 50 MG; Start 01/12/19 at 09:00 Metoprolol Succinate (Toprol Xl) 50 mg DAILY PO Last administered on 01/19/19 09:11; Admin Dose 50 MG; Start 01/12/19 at 09:00 Lorazepam (Ativan) 0.5 mg Q6H PRN IV ANXIETY Last administered on 01/19/19 11:56; Admin Dose 0.5 MG; Start 01/11/19 at 23:00 Clonidine (Catapres) 0.1 mg Q6H PRN PO systolic BP > 160 Last administered on 01/12/19 21:31; Admin Dose 0.1 MG; Start 01/12/19 at 21:00 Levothyroxine Sodium (Synthroid) 225 mcg DAILY@06 PO Last administered on 01/19/19 05:10; Admin Dose 225 MCG; Start 01/13/19 at 06:00 Allopurinol (Zyloprim) 100 mg DAILY PO Last administered on 01/19/19 09:11; Admin Dose 100 MG; Start 01/13/19 at 09:00 Ascorbic Acid (Vitamin C) 500 mg DAILY PO Last administered on 01/19/19 09:11; Admin Dose 500 MG; Start 01/13/19 at 09:00 Docusate Sodium (Colace) 200 mg QHS PO Last administered on 01/18/19 20:35; Admin Dose 200 MG; Start 01/13/19 at 21:00 Epoetin Ghulam-epbx (RETACRIT(non-esrd)) 10,000 unit Q48H SC Last administered on 01/17/19 16:54; Admin Dose 10,000 UNIT; Start 01/13/19 at 18:00 Ferrous Sulfate (Ferrous Sulfate (Ec)) 325 mg DAILY PO Last administered on 01/19/19 09:10; Admin Dose 325 MG; Start 01/13/19 at 09:00 Folic Acid (Folic Acid) 1 mg DAILY PO Last administered on 01/19/19 09:11; Admin Dose 1 MG; Start 01/13/19 at 09:00 Gabapentin (Neurontin) 100 mg TID PO Last administered on 01/19/19 13:09; Admin Dose 100 MG; Start 01/13/19 at 09:00 Lactulose (Enulose) 20 gm BID PO Last administered on 01/18/19 20:36; Admin Dose 20 GM; Start 01/13/19 at 09:00 Lorazepam (Ativan) 1 mg BID PRN PO ANXIETY Last administered on 01/14/19 20:36; Admin Dose 1 MG; Start 01/13/19 at 06:30 Rifaximin (Xifaxan) 550 mg BID PO Last administered on 01/19/19 09:11; Admin Dose 550 MG; Start 01/13/19 at 09:00 Sodium Bicarbonate (Sodium Bicarbonate Tab) 325 mg TID PO Last administered on 01/19/19 13:09; Admin Dose 325 MG; Start 01/13/19 at 09:00 Tamsulosin HCl (Flomax) 0.4 mg HS PO Last administered on 01/18/19 20:35; Admin Dose 0.4 MG; Start 01/13/19 at 21:00 Thiamine HCl (Vitamin B1) 100 mg DAILY PO Last administered on 01/19/19 09:11; Admin Dose 100 MG; Start 01/13/19 at 09:00 Arformoterol Tartrate (Brovana (Neb)) 2 ml BID RESP THERAPY INH Last administered on 01/19/19 08:50; Admin Dose 2 ML; Start 01/13/19 at 09:00 Budesonide (Pulmicort (Neb)) 0.5 mg Q12H RESP THERAPY INH Last administered on 01/19/19 08:58; Admin Dose 0.5 MG; Start 01/13/19 at 09:00 Dorzolamide/ Timolol (Cosopt Pf Eye Drops) 1 drop BID BOTH EYES Last administered on 01/18/19 09:07; Admin Dose 1 DROP; Start 01/13/19 at 11:30 Nicotine (Nicoderm 21 Mg/ 24hr) 1 patch DAILY TRANSDERM Last administered on 01/19/19 09:10; Admin Dose 1 PATCH; Start 01/14/19 at 09:00 Famotidine (Pepcid) 20 mg Q12 PO Last administered on 01/19/19 09:11; Admin Dose 20 MG; Start 01/13/19 at 21:00 Amlodipine Besylate (Norvasc) 5 mg DAILY PO Last administered on 01/19/19 09:12; Admin Dose 5 MG; Start 01/15/19 at 09:00 Hydromorphone HCl (Dilaudid) 1.5 mg Q4H PRN IV SEVERE PAIN LEVEL 7-10 Last administered on 01/19/19 15:03; Admin Dose 1.5 MG; Start 01/15/19 at 05:30 Doxycycline Hyclate (Vibramycin) 100 mg 0800,2000 PO Last administered on 01/19/19 09:09; Admin Dose 100 MG; Start 01/15/19 at 20:00 Furosemide (Lasix) 20 mg DAILY PO Last administered on 01/19/19 09:12; Admin Dose 20 MG; Start 01/16/19 at 09:00 Acetaminophen/ Hydrocodone Bitart ([place] (5/325)) 1 tab Q4H PRN PO PAIN Last administered on 01/19/19 18:18; Admin Dose 1 TAB; Start 01/16/19 at 01:00 Buspirone HCl (Buspar) 10 mg BID PO Last administered on 01/19/19 09:11; Admin Dose 10 MG; Start 01/16/19 at 12:30 Meropenem/Sodium Chloride 50 ml @ 100 mls/hr Q12 IVPB Last administered on 01/19/19 09:24; Admin Dose 100 MLS/HR; Start 01/18/19 at 14:30 DUSTY CANTU Jan 19, 2019 19:04
[2019-01-19 20:58] VITALS: BP 149/70; PULSE 79; RESP 16
[2019-01-19] MEDS: DOCUSATE SODIUM 100 MG CAP PO SCH (21:00)
[2019-01-19] MEDS: TAMSULOSIN (SR) 0.4 MG CAP PO SCH (21:46)
[2019-01-20] MEDS: HYDROmorphONE 1 MG/ML SYG IV PRN ×5 (00:16→20:04)
[2019-01-20] MEDS: HYDROCODONE/APAP (5/325) TAB PO PRN ×2 (01:30→18:13)
[2019-01-20 03:34] VITALS: BP 167/77; PULSE 73; RESP 20
[2019-01-20] MEDS: LEVOTHYROXINE 75 MCG TAB PO SCH (06:03)
[2019-01-20] MEDS: LORAZEPAM 2 MG INJ IV PRN (06:03)
[2019-01-20 08:00] VITALS: BP_SYST 120; BP_SYST 140; BP_DIAS 56; BP_DIAS 65; PULSE 69; PULSE 74; RESP 18; RESP 20
[2019-01-20] MEDS: METOPROLOL (XL) 50 MG TAB PO SCH (08:24)
[2019-01-20] MEDS: LACTULOSE 30ML CUP PO SCH ×4 (08:24→21:00)
[2019-01-20] MEDS: NA BICARBONATE 650 MG TAB PO SCH ×3 (08:25→21:19)
[2019-01-20] MEDS: GABAPENTIN 100 MG CAP PO SCH ×3 (08:25→21:00)
[2019-01-20] MEDS: FUROSEMIDE 20 MG TAB PO SCH (08:25)
[2019-01-20] MEDS: SPIRONOLACTONE 50 MG TAB PO SCH (08:26)
[2019-01-20] MEDS: AMLODIPINE 5 MG TAB PO SCH (08:26)
[2019-01-20] MEDS: FERROUS SULFATE (EC) 325 MG TAB PO SCH (08:26)
[2019-01-20] MEDS: ASCORBIC ACID 500 MG TAB PO SCH (08:26)
[2019-01-20] MEDS: RIFAXIMIN 550 MG TAB PO SCH ×2 (08:26→21:18)
[2019-01-20] MEDS: ALLOPURINOL 100 MG TAB PO SCH (08:26)
[2019-01-20] MEDS: BUSPIRONE 10 MG TAB PO SCH ×2 (08:26→21:18)
[2019-01-20] MEDS: THIAMINE 100 MG TAB PO SCH (08:26)
[2019-01-20] MEDS: FAMOTIDINE 20 MG TAB PO SCH ×2 (08:26→21:18)
[2019-01-20] MEDS: FOLIC ACID 1 MG TAB PO SCH (08:26)
[2019-01-20] MEDS: NICOTINE (21 MG/24 HR) PATCH TRANSDERM SCH (08:27)
[2019-01-20] MEDS: MEROPENEM 500MG/50 ML (PMX) 50 ML IVPB SCH ×2 (08:28→21:24)
[2019-01-20] MEDS: DOXYCYCLINE 100 MG TAB PO SCH ×2 (08:30→21:19)
[2019-01-20] MEDS: DORZOLAMIDE/TIMOLOL/PF 0.2 ML DROPERETTE BOTH EYES SCH ×2 (08:34→21:00)
[2019-01-20] MEDS: ARFORMOTEROL TARTRATE 15MCG/2 ML AMP INH SCH ×2 (09:30→20:12)
[2019-01-20] MEDS: BUDESONIDE (NEB) 0.5MG/2ML AMP INH SCH ×2 (09:31→20:12)
--- NOTE | 2019-01-20 10:31 | CONS ---
Consult Date/Type/Reason Admit Date/Time Jan 11, 2019 at 09:53 Initial Consult Date 01/12/19 Requesting Provider: KOKO MARLOW MD Date/Time of Note DATE: 01/20/19 TIME: 10:29 Subjective NO acute events - pt comfortable - responding to diuresis. ROS: No fever, no chills, no nausea, no vomiting, no diarrhea/constipation No recent weight changes No chest pain, no PND, no orthopnea - improved SOB No dizziness, blurred vision No thirst, no heat or cold intolerance Objective Vitals Vital Signs Date Temp Pulse Resp B/P (MAP) Pulse Ox O2 O2 Flow FiO2 Time Delivery Rate 01/20/19 98.6 69 18 120/56 96 08:00 (77) 01/19/19 21 19:57 01/17/19 Room Air 14:14 Intake and Output 01/19/19 01/19/19 01/20/19 1515:00 23:00 07:00 IntakeIntake Total 770 ml 290 ml 700 ml OutputOutput Total 500 ml 200 ml 400 ml BalanceBalance 270 ml 90 ml 300 ml Exam General: WN/WD/NAD, AOx 2-3 HEENT: Unicetric/atraumatic/EOMI (follows commands) NECK: JVD elevated, no thyromegaly Lymph: no lymphadenopathy HEART: regular with no S3, II/ systolic murmur at apex LUNGS: Coarse sounds ABD: soft, NT, ND, +BS : Intact Neuro: non focal SKIN: chronic changes EXT: 2+ edema Results/Medications Result Diagram: 01/19/19 1135 01/19/19 1135 Results 24 hrs Laboratory Tests Test 01/19/19 11:35 White Blood Count 21.3 H Red Blood Count 4.55 L Hemoglobin 9.8 L Hematocrit 35.4 L Mean Corpuscular Volume 77.8 L Mean Corpuscular Hemoglobin 21.5 L Mean Corpuscular Hemoglobin Concent 27.7 L Red Cell Distribution Width 23.8 H Platelet Count 210 Mean Platelet Volume Immature Granulocytes % 7.200 H Neutrophils % Segmented Neutrophils % (Manual) 65 Band Neutrophils % (Manual) 3 Lymphocytes % Lymphocytes % (Manual) 8 L Monocytes % Monocytes % (Manual) 10 Eosinophils % Eosinophils % (Manual) 6 Basophils % Basophils % (Manual) 2 Metamyelocytes % (manual) 1 H Myelocytes % (Manual) 5 H Nucleated Red Blood Cells % 0.0 Immature Granulocytes # 1.540 H Neutrophils # Neutrophils # (Manual) 14.0 H Band Neutrophils # 0.6 Lymphocytes (Manual) 1.7 Lymphocytes # Monocytes # Monocytes # (Manual) 2.1 H Eosinophils # Basophils # Basophils # (Manual) 0.4 H Metamyelocytes # 0.2 H Myelocytes # 1.0 H Nucleated Red Blood Cells # Platelet Estimate NORMAL Giant Platelets 3 H Polychromasia 1+ Hypochromasia 3+ Poikilocytosis 2+ Anisocytosis 2+ Microcytosis 2+ Macrocytosis 1+ Elliptocytes 1+ Prothrombin Time 15.3 H Prothrombin Time Ratio 1.2 INR International Normalized Ratio 1.20 Activated Partial Thromboplast Time 31.9 Sodium Level 135 Potassium Level 5.1 Chloride Level 107 Carbon Dioxide Level 20 L Anion Gap 8 Blood Urea Nitrogen 42 H Creatinine 1.49 H Est Glomerular Filtrat Rate mL/min 48 L Glucose Level 92 Calcium Level 9.0 Magnesium Level 1.7 Total Bilirubin 0.2 Direct Bilirubin 0.00 Indirect Bilirubin 0.2 Aspartate Amino Transf (AST/SGOT) 53 H Alanine Aminotransferase (ALT/SGPT) 50 Alkaline Phosphatase 124 H Total Protein 7.5 Albumin 4.1 Globulin 3.40 H Albumin/Globulin Ratio 1.20 Carcinoembryonic Antigen 3.2 Home Meds Reported Medications Thiamine* (Vitamin B-1*) 100 Mg Tablet, 100 MG PO DAILY, TAB 01/11/19 Sodium Bicarbonate* (Sodium Bicarbonate*) 325 Mg Tablet, 325 MG PO TID, TAB 01/11/19 Simethicone* (Mylicon*) 80 Mg Tab, 80 MG PO Q6H, TAB 01/11/19 Albuterol Sulfate (Proair Respiclick) 90 Mcg Aer.pow.ba, 2 PUFFS INHALATION Q4H PRN for SHORTNESS OF BREATH, #1 BOTTLE 01/11/19 Pantoprazole* (Pantoprazole*) 40 Mg Tablet.dr, 40 MG PO AC BREAKFAST, TAB 01/11/19 Oxycodone Hcl* (Oxycontin*) 15 Mg Tab.sr.12h, 15 MG PO Q6H PRN for PAIN, TAB 01/11/19 Oxycodone Hcl* (Oxycontin*) 10 Mg Tab.sr.12h, 10 MG PO Q8H PRN for PAIN, TAB 01/11/19 Allopurinol* (Allopurinol*) 100 Mg Tablet, 100 MG PO DAILY, TAB 01/11/19 Rifaximin* (Xifaxan*) 550 Mg Tablet, 550 MG PO BID, TAB 01/11/19 Ondansetron Hcl* (Zofran*) 4 Mg Tab, 4 MG PO Q4H PRN for NAUSEA AND OR VOMITING, TAB 01/11/19 Metoprolol Tartrate* (Lopressor*) 100 Mg Tablet, 100 MG PO DAILY, #60 TAB HOLD FOR SBP<110 OR HR<60 01/11/19 Levothyroxine Sodium* (Levothyroxine Sodium*) 200 Mcg Tablet, 200 MCG PO BEFORE BREAKFAST, #30 TAB 01/11/19 Levothyroxine Sodium* (Levothyroxine Sodium*) 25 Mcg Tablet, 25 MCG PO BEFORE BREAKFAST, #30 TAB 01/11/19 Ipratropium-Albuterol (Ipratropium-Albuterol) 0.5-3 Mg/3 Ml Ampul.neb, 3 ML INHALATION Q6 PRN for WHEEZING AND SOB, #30 VIAL 01/11/19 Hydrocodone/Acetaminophen (Stephenson 5-325 Tablet) 1 Each Tablet, 1 EACH PO Q6H PRN for PAIN, TAB 01/11/19 Gabapentin* (Gabapentin*) 100 Mg Capsule, 100 MG PO TID, #90 CAP 01/11/19 Furosemide* (Furosemide*) 40 Mg Tablet, 40 MG PO DAILY, TAB 01/11/19 Folic Acid* (Folic Acid*) 1 Mg Tablet, 1 MG PO DAILY, TAB 01/11/19 Tamsulosin Hcl* (Flomax*) 0.4 Mg Cap.er.24h, 0.4 MG PO HS, CAP 01/11/19 Ferrous Sulfate* (Ferrous Sulfate*) 325 Mg Tabec, 325 MG PO DAILY, TAB 01/11/19 Ertapenem Sodium (Invanz) 1 Gm Vial, 1 GM IM DAILY, VIAL 01/11/19 Epoetin Ghulam (Epogen) 10,000 Units/Ml Soln, 28529 UNITS SC Q TUE,SHARONA,SAT, VIAL 01/11/19 Lactulose* (Lactulose*) 10 Gm/15 Ml Solution, 30 ML PO Q6, ML 01/11/19 Docusate Sodium* (Colace*) 100 Mg Capsule, 200 MG PO QHS, #30 CAP 01/11/19 Dorzolamide-Timolol* (Cosopt*) 2%-0.5% - 10 Ml Soln, 1 DROP BOTH EYES BID, BOTTLE 01/11/19 Budesonide* (Budesonide*) 0.5 Mg/2 Ml Ampul.neb, 0.5 MG INHALATION BID, AMP 01/11/19 Lorazepam* (Lorazepam*) 1 Mg Tablet, 1 MG PO BID PRN for ANXIETY, #30 TAB 01/11/19 Ascorbic Acid (Vitamin C) 500 Mg Tab, 500 MG PO DAILY, TAB 01/11/19 Arformoterol Tartrate (Brovana) 15 Mcg/2 Ml Vial.neb, 15 MCG INHALATION BID, VIAL 01/11/19 Spironolactone* (Aldactone*) 50 Mg Tablet, 50 MG PO DAILY, #30 TAB HOLD FOR SBP<110 01/11/19 Salmeterol Xinaf/Fluticasone* (Advair*) 250-50 Diskus Inhaler, 1 INH INHALATION BID, #1 INHALER 01/11/19 Acetaminophen* (Acetaminophen*) 500 MG Extra Strength Tablet, 500 MG PO Q4H PRN for MILD PAIN LEVEL 1-3, TAB 01/11/19 Medications Current Medications IV Flush (NS 3 ml) 3 ml PER PROTOCOL IV ; Start 01/11/19 at 13:00 Ondansetron HCl (Zofran Inj) 4 mg Q6H PRN IV NAUSEA/VOMITING; Start 01/11/19 at 13:00 Acetaminophen (Tylenol Tab) 650 mg Q6H PRN PO .PAIN 1-3 OR TEMP; Start 01/11/19 at 13:00 Albuterol (Proventil 0.083% (Neb)) 2.5 mg Q6 PRN HHN shortness of breath; Start 01/11/19 at 13:00 Spironolactone (Aldactone) 50 mg DAILY PO Last administered on 01/20/19at 08:26; Admin Dose 50 MG; Start 01/12/19 at 09:00 Metoprolol Succinate (Toprol Xl) 50 mg DAILY PO Last administered on 01/20/19at 08:24; Admin Dose 50 MG; Start 01/12/19 at 09:00 Lorazepam (Ativan) 0.5 mg Q6H PRN IV ANXIETY Last administered on 01/20/19 06:03; Admin Dose 0.5 MG; Start 01/11/19 at 23:00 Clonidine (Catapres) 0.1 mg Q6H PRN PO systolic BP > 160 Last administered on 01/12/19 21:31; Admin Dose 0.1 MG; Start 01/12/19 at 21:00 Levothyroxine Sodium (Synthroid) 225 mcg DAILY@06 PO Last administered on 01/20/19 06:03; Admin Dose 225 MCG; Start 01/13/19 at 06:00 Allopurinol (Zyloprim) 100 mg DAILY PO Last administered on 01/20/19 08:26; Admin Dose 100 MG; Start 01/13/19 at 09:00 Ascorbic Acid (Vitamin C) 500 mg DAILY PO Last administered on 01/20/19 08:26; Admin Dose 500 MG; Start 01/13/19 at 09:00 Docusate Sodium (Colace) 200 mg QHS PO Last administered on 01/18/19 20:35; Admin Dose 200 MG; Start 01/13/19 at 21:00 Epoetin Ghulam-epbx (RETACRIT(non-esrd)) 10,000 unit Q48H SC Last administered on 01/17/19 16:54; Admin Dose 10,000 UNIT; Start 01/13/19 at 18:00 Ferrous Sulfate (Ferrous Sulfate (Ec)) 325 mg DAILY PO Last administered on 01/20/19 08:26; Admin Dose 325 MG; Start 01/13/19 at 09:00 Folic Acid (Folic Acid) 1 mg DAILY PO Last administered on 01/20/19 08:26; Admin Dose 1 MG; Start 01/13/19 at 09:00 Gabapentin (Neurontin) 100 mg TID PO Last administered on 01/20/19 08:25; Admin Dose 100 MG; Start 01/13/19 at 09:00 Lactulose (Enulose) 20 gm BID PO Last administered on 01/19/19 21:45; Admin Dose 20 GM; Start 01/13/19 at 09:00 Lorazepam (Ativan) 1 mg BID PRN PO ANXIETY Last administered on 01/14/19 20:3 6; Admin Dose 1 MG; Start 01/13/19 at 06:30 Rifaximin (Xifaxan) 550 mg BID PO Last administered on 01/20/19 08:26; Admin Dose 550 MG; Start 01/13/19 at 09:00 Sodium Bicarbonate (Sodium Bicarbonate Tab) 325 mg TID PO Last administered on 01/20/19 08:25; Admin Dose 325 MG; Start 01/13/19 at 09:00 Tamsulosin HCl (Flomax) 0.4 mg HS PO Last administered on 01/19/19 21:46; Admin Dose 0.4 MG; Start 01/13/19 at 21:00 Thiamine HCl (Vitamin B1) 100 mg DAILY PO Last administered on 01/20/19 08:26; Admin Dose 100 MG; Start 01/13/19 at 09:00 Arformoterol Tartrate (Brovana (Neb)) 2 ml BID RESP THERAPY INH Last administered on 01/20/19 09:30; Admin Dose 2 ML; Start 01/13/19 at 09:00 Budesonide (Pulmicort (Neb)) 0.5 mg Q12H RESP THERAPY INH Last administered on 01/20/19 09:31; Admin Dose 0.5 MG; Start 01/13/19 at 09:00 Dorzolamide/ Timolol (Cosopt Pf Eye Drops) 1 drop BID BOTH EYES Last administ ered on 01/18/19 09:07; Admin Dose 1 DROP; Start 01/13/19 at 11:30 Nicotine (Nicoderm 21 Mg/ 24hr) 1 patch DAILY TRANSDERM Last administered on 01/19/19 09:10; Admin Dose 1 PATCH; Start 01/14/19 at 09:00 Famotidine (Pepcid) 20 mg Q12 PO Last administered on 01/20/19 08:26; Admin Dose 20 MG; Start 01/13/19 at 21:00 Amlodipine Besylate (Norvasc) 5 mg DAILY PO Last administered on 01/20/19 08:26; Admin Dose 5 MG; Start 01/15/19 at 09:00 Hydromorphone HCl (Dilaudid) 1.5 mg Q4H PRN IV SEVERE PAIN LEVEL 7-10 Last administered on 01/20/19 04:20; Admin Dose 1.5 MG; Start 01/15/19 at 05:30 Doxycycline Hyclate (Vibramycin) 100 mg 0800,1999 PO Last administered on 01/20/19 08:30; Admin Dose 100 MG; Start 01/15/19 at 20:00 Furosemide (Lasix) 20 mg DAILY PO Last administered on 01/20/19 08:25; Admin Dose 20 MG; Start 01/16/19 at 09:00 Acetaminophen/ Hydrocodone Bitart (Stephen[place] (5/325)) 1 tab Q4H PRN PO PAIN Last administered on 01/20/19 01:30; Admin Dose 1 TAB; Start 01/16/19 at 01:00 Buspirone HCl (Buspar) 10 mg BID PO Last administered on 01/20/19 08:26; Admin Dose 10 MG; Start 01/16/19 at 12:30 Meropenem/Sodium Chloride 50 ml @ 100 mls/hr Q12 IVPB Last administered on 01/20/19 08:28; Admin Dose 100 MLS/HR; Start 01/18/19 at 14:30 Assessment/Plan Hospital Course (Demo Recall) 1. Congestive heart failure exacerbation, diastolic, acute on chronic - con't diuresis, better now - con't diuresis, better now 2. Hypertension - well controlled, con't med rx Reasonably controlled. 3. Shortness of breath secondary to congestive heart failure exacerbation, diastolic, acute on chronic - improved with therapy. Con't Rx. 4. Chronic renal failure - good urine output now. 5. Cirrhosis - on meds. Better fluid satus overall. Lost weight. 6. Ascites, recurrent. 7. Hypothyroidism. 8. History of ETOH abuse- avoid hepatotoxic meds. D/C advised. 9. Anemia - H/H stable - no bleeding now. HALEY LIRIANO MD Jan 20, 2019 10:31
--- NOTE | 2019-01-20 13:45 | CONS ---
Assessment/Plan Assessment/Plan Hospital Course (Demo Recall) 63 yo male Interval hx: No acute events. 1. Microcytic hypochromic anemia, most probably related to iron deficiency. -anemia work up from previous visit last week noted. NEG FOB -EGD done April 2018 showed duodenal ulcer and gastritis -hgb stable 2. 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 -US on 01/07 did not ascites 3. Nicotine dependence 4. Congestive heart failure. -EF of 60% 5. Chronic obstructive pulmonary disease. 6. Renal failure. PLAN: CEA wnl Pain management Continue pepcid, lasix and aldactone Still would like to hold off on colonoscopy Pt examined and plan of care discussed with Dr. Casiano Consultation Date/Type/Reason Admit Date/Time Jan 11, 2019 at 09:53 Initial Consult Date 01/11/19 Requesting Provider: KOKO MARLOW MD Date/Time of Note DATE: 01/20/19 TIME: 13:44 Exam/Review of Systems Exam Vitals Vital Signs Date Temp Pulse Resp B/P (MAP) Pulse Ox O2 O2 Flow FiO2 Time Delivery Rate 01/20/19 98.6 69 18 120/56 96 08:00 (77) 01/19/19 21 19:57 01/17/19 Room Air 14:14 Intake and Output 01/19/19 01/19/19 01/20/19 1515:00 23:00 07:00 IntakeIntake Total 770 ml 290 ml 700 ml OutputOutput Total 500 ml 200 ml 400 ml BalanceBalance 270 ml 90 ml 300 ml Constitutional: alert, oriented Psych: no complaints Head: normocephalic Eyes: nl sclera, PERRL ENMT: mucosa pink and moist Gastrointestinal: soft, distended Neurological: nl mental status Results Result Diagram: 01/19/19 1135 01/19/19 1135 Medications Medication Current Medications IV Flush (NS 3 ml) 3 ml PER PROTOCOL IV ; Start 01/11/19 at 13:00 Ondansetron HCl (Zofran Inj) 4 mg Q6H PRN IV NAUSEA/VOMITING; Start 01/11/19 at 13:00 Acetaminophen (Tylenol Tab) 650 mg Q6H PRN PO .PAIN 1-3 OR TEMP; Start 01/11/19 at 13:00 Albuterol (Proventil 0.083% (Neb)) 2.5 mg Q6 PRN HHN shortness of breath; Start 01/11/19 at 13:00 Spironolactone (Aldactone) 50 mg DAILY PO Last administered on 01/20/19 08:26; Admin Dose 50 MG; Start 01/12/19 at 09:00 Metoprolol Succinate (Toprol Xl) 50 mg DAILY PO Last administered on 01/20/19 08:24; Admin Dose 50 MG; Start 01/12/19 at 09:00 Lorazepam (Ativan) 0.5 mg Q6H PRN IV ANXIETY Last administered on 01/20/19 06:03; Admin Dose 0.5 MG; Start 01/11/19 at 23:00 Clonidine (Catapres) 0.1 mg Q6H PRN PO systolic BP > 160 Last administered on 01/12/19 21:31; Admin Dose 0.1 MG; Start 01/12/19 at 21:00 Levothyroxine Sodium (Synthroid) 225 mcg DAILY@06 PO Last administered on 01/20/19 06:03; Admin Dose 225 MCG; Start 01/13/19 at 06:00 Allopurinol (Zyloprim) 100 mg DAILY PO Last administered on 01/20/19 08:26; Admin Dose 100 MG; Start 01/13/19 at 09:00 Ascorbic Acid (Vitamin C) 500 mg DAILY PO Last administered on 01/20/19 08:26; Admin Dose 500 MG; Start 01/13/19 at 09:00 Docusate Sodium (Colace) 200 mg QHS PO Last administered on 01/18/19 20:35; Admin Dose 200 MG; Start 01/13/19 at 21:00 Epoetin Ghulam-epbx (RETACRIT(non-esrd)) 10,000 unit Q48H SC Last administered on 01/17/19 16:54; Admin Dose 10,000 UNIT; Start 01/13/19 at 18:00 Ferrous Sulfate (Ferrous Sulfate (Ec)) 325 mg DAILY PO Last administered on 01/20/19 08:26; Admin Dose 325 MG; Start 01/13/19 at 09:00 Folic Acid (Folic Acid) 1 mg DAILY PO Last administered on 01/20/19 08:26; Admin Dose 1 MG; Start 01/13/19 at 09:00 Gabapentin (Neurontin) 100 mg TID PO Last administered on 01/20/19 12:07; Admin Dose 100 MG; Start 01/13/19 at 09:00 Lactulose (Enulose) 20 gm BID PO Last administered on 01/19/19 21:45; Admin Dose 20 GM; Start 01/13/19 at 09:00 Lorazepam (Ativan) 1 mg BID PRN PO ANXIETY Last administered on 01/14/19 20:36; Admin Dose 1 MG; Start 01/13/19 at 06:30 Rifaximin (Xifaxan) 550 mg BID PO Last administered on 01/20/19 08:26; Admin Dose 550 MG; Start 01/13/19 at 09:00 Sodium Bicarbonate (Sodium Bicarbonate Tab) 325 mg TID PO Last administered on 01/20/19 12:07; Admin Dose 325 MG; Start 01/13/19 at 09:00 Tamsulosin HCl (Flomax) 0.4 mg HS PO Last administered on 01/19/19 21:46; Admin Dose 0.4 MG; Start 01/13/19 at 21:00 Thiamine HCl (Vitamin B1) 100 mg DAILY PO Last administered on 01/20/19 08:26; Admin Dose 100 MG; Start 01/13/19 at 09:00 Arformoterol Tartrate (Brovana (Neb)) 2 ml BID RESP THERAPY INH Last administered on 01/20/19 09:30; Admin Dose 2 ML; Start 01/13/19 at 09:00 Budesonide (Pulmicort (Neb)) 0.5 mg Q12H RESP THERAPY INH Last administered on 01/20/19 09:31; Admin Dose 0.5 MG; Start 01/13/19 at 09:00 Dorzolamide/ Timolol (Cosopt Pf Eye Drops) 1 drop BID BOTH EYES Last administered on 01/18/19 09:07; Admin Dose 1 DROP; Start 01/13/19 at 11:30 Nicotine (Nicoderm 21 Mg/ 24hr) 1 patch DAILY TRANSDERM Last administered on 01/19/19 09:10; Admin Dose 1 PATCH; Start 01/14/19 at 09:00 Famotidine (Pepcid) 20 mg Q12 PO Last administered on 01/20/19 08:26; Admin Dose 20 MG; Start 01/13/19 at 21:00 Amlodipine Besylate (Norvasc) 5 mg DAILY PO Last administered on 01/20/19 08:26; Admin Dose 5 MG; Start 01/15/19 at 09:00 Hydromorphone HCl (Dilaudid) 1.5 mg Q4H PRN IV SEVERE PAIN LEVEL 7-10 Last administered on 01/20/19 11:50; Admin Dose 1.5 MG; Start 01/15/19 at 05:30 Doxycycline Hyclate (Vibramycin) 100 mg 0800,1999 PO Last administered on 01/20/19 08:30; Admin Dose 100 MG; Start 01/15/19 at 20:00 Furosemide (Lasix) 20 mg DAILY PO Last administered on 01/20/19 08:25; Admin Dose 20 MG; Start 01/16/19 at 09:00 Acetaminophen/ Hydrocodone Bitart ([place] (5/325)) 1 tab Q4H PRN PO PAIN Last administered on 01/20/19 01:30; Admin Dose 1 TAB; Start 01/16/19 at 01:00 Buspirone HCl (Buspar) 10 mg BID PO Last administered on 01/20/19 08:26; Admin Dose 10 MG; Start 01/16/19 at 12:30 Meropenem/Sodium Chloride 50 ml @ 100 mls/hr Q12 IVPB Last administered on 01/20/19 08:28; Admin Dose 100 MLS/HR; Start 01/18/19 at 14:30 DEYVI HAN Jan 20, 2019 13:45
[2019-01-20 14:00] VITALS: BP 136/72; PULSE 76; RESP 18
--- NOTE | 2019-01-20 14:13 | CONS ---
Assessment/Plan Assessment/Plan Assessment/Plan (Daily) 1. acute on chronic renal failure due to Type II hepatorenal syndrome 2. SIRS 3. anemia of CKD 5. Decompensated Liver cirrhosis with Symptomatic ascites 6. H/O HTN 7. h/o Liver cirrhosis with ascites 8. H/o Diastolic CHF 9. Bilateral LE chronic venous stasis 10.H/o BPH on flomax Plan: Continue IV abx as per ID , renally dose all abx , monitor electorlytes and replace as needed, WBC 21.3 BUN/Cr- 42/1.49 ; other Electrolyte stable today , Continue lasix to 20mg po daily, , spironolactone 50mg po daily , Toprol Xl 50mg po daily , amlodipine 5 mg po daily on Sodium bicarbonte 325mg PO TID Flomax 0.4mg po daily for BPH will follow up Patient seen in collaboration with Dr Romario Leung. Dw staff Consultation Date/Type/Reason Admit Date/Time Jan 11, 2019 at 09:53 Initial Consult Date 01/12/19 Type of Consult NEPHROLOGY Requesting Provider: KOKO MARLOW MD Date/Time of Note DATE: 01/20/19 TIME: 14:13 24 HR Interval Summary Free Text/Dictation nad afebrile UO- 1100 ml /24 hr no new events reported last night per staff Patient seen in collaboration with Dr Romario Leung. [facility] staff Constitutional: requiring O2 Detailed Summary ENT: no complaints Respiratory: no complaints Cardiovascular: no complaints Gastrointestinal: no complaints Genitourinary: no complaints Musculoskeletal: other (generelized weakness) Skin: other (chronic changes BLE ) Neurologic: no complaints Endocrine: no complaints Psychological: nl mood/affect Immunologic: no complaints Exam/Review of Systems Exam Vitals Vital Signs Date Temp Pulse Resp B/P (MAP) Pulse Ox O2 O2 Flow FiO2 Time Delivery Rate 01/20/19 98.6 69 18 120/56 96 08:00 (77) 01/19/19 21 19:57 01/17/19 Room Air 14:14 Intake and Output 01/19/19 01/19/19 01/20/19 1414:59 22:59 06:59 IntakeIntake Total 770 ml 290 ml 700 ml OutputOutput Total 500 ml 200 ml 400 ml BalanceBalance 270 ml 90 ml 300 ml Constitutional: alert, well developed, obese Psych: nl mood/affect Head: normocephalic, atraumatic Eyes: nl lids ENMT: nl external ears & nose Neck: non-tender Respiratory: diminished breath sounds (at bases bilaterally) Cardiovascular: nl pulses, other (s1s2) Gastrointestinal: soft, non-tender Musculoskeletal: muscle weakness Extremities: normal pulses Neurological: nl speech, other (alert/responsive) Lymph: nontender Results Result Diagram: 01/19/19 1135 01/19/19 1135 Medications Medication Current Medications IV Flush (NS 3 ml) 3 ml PER PROTOCOL IV ; Start 01/11/19 at 13:00 Ondansetron HCl (Zofran Inj) 4 mg Q6H PRN IV NAUSEA/VOMITING; Start 01/11/19 at 13:00 Acetaminophen (Tylenol Tab) 650 mg Q6H PRN PO .PAIN 1-3 OR TEMP; Start 01/11/19 at 13:00 Albuterol (Proventil 0.083% (Neb)) 2.5 mg Q6 PRN HHN shortness of breath; Start 01/11/19 at 13:00 Spironolactone (Aldactone) 50 mg DAILY PO Last administered on 01/20/19 08:26; Admin Dose 50 MG; Start 01/12/19 at 09:00 Metoprolol Succinate (Toprol Xl) 50 mg DAILY PO Last administered on 01/20/19 08:24; Admin Dose 50 MG; Start 01/12/19 at 09:00 Lorazepam (Ativan) 0.5 mg Q6H PRN IV ANXIETY Last administered on 01/20/19 06:03; Admin Dose 0.5 MG; Start 01/11/19 at 23:00 Clonidine (Catapres) 0.1 mg Q6H PRN PO systolic BP > 160 Last administered on 01/12/19at 21:31; Admin Dose 0.1 MG; Start 01/12/19 at 21:00 Levothyroxine Sodium (Synthroid) 225 mcg DAILY@06 PO Last administered on 01/20/19 06:03; Admin Dose 225 MCG; Start 01/13/19 at 06:00 Allopurinol (Zyloprim) 100 mg DAILY PO Last administered on 01/20/19 08:26; Admin Dose 100 MG; Start 01/13/19 at 09:00 Ascorbic Acid (Vitamin C) 500 mg DAILY PO Last administered on 01/20/19 08:26; Admin Dose 500 MG; Start 01/13/19 at 09:00 Docusate Sodium (Colace) 200 mg QHS PO Last administered on 01/18/19 20:35; Admin Dose 200 MG; Start 01/13/19 at 21:00 Epoetin Ghulam-epbx (RETACRIT(non-esrd)) 10,000 unit Q48H SC Last administered on 01/17/19 16:54; Admin Dose 10,000 UNIT; Start 01/13/19 at 18:00 Ferrous Sulfate (Ferrous Sulfate (Ec)) 325 mg DAILY PO Last administered on 01/20/19 08:26; Admin Dose 325 MG; Start 01/13/19 at 09:00 Folic Acid (Folic Acid) 1 mg DAILY PO Last administered on 01/20/19 08:26; Admin Dose 1 MG; Start 01/13/19 at 09:00 Gabapentin (Neurontin) 100 mg TID PO Last administered on 01/20/19 12:07; Admin Dose 100 MG; Start 01/13/19 at 09:00 Lactulose (Enulose) 20 gm BID PO Last administered on 01/19/19 21:45; Admin Dose 20 GM; Start 01/13/19 at 09:00 Lorazepam (Ativan) 1 mg BID PRN PO ANXIETY Last administered on 01/14/19 20:36; Admin Dose 1 MG; Start 01/13/19 at 06:30 Rifaximin (Xifaxan) 550 mg BID PO Last administered on 01/20/19 08:26; Admin Dose 550 MG; Start 01/13/19 at 09:00 Sodium Bicarbonate (Sodium Bicarbonate Tab) 325 mg TID PO Last administered on 01/20/19 12:07; Admin Dose 325 MG; Start 01/13/19 at 09:00 Tamsulosin HCl (Flomax) 0.4 mg HS PO Last administered on 01/19/19 21:46; Admin Dose 0.4 MG; Start 01/13/19 at 21:00 Thiamine HCl (Vitamin B1) 100 mg DAILY PO Last administered on 01/20/19 08:26; Admin Dose 100 MG; Start 01/13/19 at 09:00 Arformoterol Tartrate (Brovana (Neb)) 2 ml BID RESP THERAPY INH Last administered on 01/20/19 09:30; Admin Dose 2 ML; Start 01/13/19 at 09:00 Budesonide (Pulmicort (Neb)) 0.5 mg Q12H RESP THERAPY INH Last administered on 01/20/19 09:31; Admin Dose 0.5 MG; Start 01/13/19 at 09:00 Dorzolamide/ Timolol (Cosopt Pf Eye Drops) 1 drop BID BOTH EYES Last administered on 01/18/19 09:07; Admin Dose 1 DROP; Start 01/13/19 at 11:30 Nicotine (Nicoderm 21 Mg/ 24hr) 1 patch DAILY TRANSDERM Last administered on 01/19/19 09:10; Admin Dose 1 PATCH; Start 01/14/19 at 09:00 Famotidine (Pepcid) 20 mg Q12 PO Last administered on 01/20/19 08:26; Admin Dose 20 MG; Start 01/13/19 at 21:00 Amlodipine Besylate (Norvasc) 5 mg DAILY PO Last administered on 01/20/19 08:26; Admin Dose 5 MG; Start 01/15/19 at 09:00 Hydromorphone HCl (Dilaudid) 1.5 mg Q4H PRN IV SEVERE PAIN LEVEL 7-10 Last administered on 01/20/19 11:50; Admin Dose 1.5 MG; Start 01/15/19 at 05:30 Doxycycline Hyclate (Vibramycin) 100 mg 0800,2000 PO Last administered on 01/20/19 08:30; Admin Dose 100 MG; Start 01/15/19 at 20:00 Furosemide (Lasix) 20 mg DAILY PO Last administered on 01/20/19 08:25; Admin Dose 20 MG; Start 01/16/19 at 09:00 Acetaminophen/ Hydrocodone Bitart ([place] (5/325)) 1 tab Q4H PRN PO PAIN Last administered on 01/20/19 01:30; Admin Dose 1 TAB; Start 01/16/19 at 01:00 Buspirone HCl (Buspar) 10 mg BID PO Last administered on 01/20/19 08:26; Admin Dose 10 MG; Start 01/16/19 at 12:30 Meropenem/Sodium Chloride 50 ml @ 100 mls/hr Q12 IVPB Last administered on 01/20/19at 08:28; Admin Dose 100 MLS/HR; Start 01/18/19 at 14:30 GO LAMBERT Jan 20, 2019 14:13
--- NOTE | 2019-01-20 14:22 | CONS ---
Assessment/Plan Assessment/Plan Hospital Course (Demo Recall) No acute changes, afebrile, nad Abdominal ultrasound revealed no ascites Antimicrobials: Merrem doxycycline Physical examination: This is a wasted well-developed chronically ill-appearing elderly man who is in no distress. Head atraumatic normocephalic sclera nonicteric. Neck is supple chest rise symmetrical breath sounds diminished bases. Heart: S1-S2. Abdomen soft bowel sounds present. Extremities without BLE edema, mild erythema, no cyanosis. Assessment: 1. Systemic inflammatory response syndrome with ongoing leukocytosis, clinically stable 2. S/p COPD exacerbation 3. Alcohol abuse 4. Bilateral lower extremities acute on chronic cellulitis/chronic venous stasis 5. Cirrhosis with recurrent ascites 6. Chronic kidney disease 7. CHF 8. Noncompliance Plan: Clinically unchanged, continue present care and antibiotics for now, follow cultures Consultation Date/Type/Reason Admit Date/Time Jan 11, 2019 at 09:53 Initial Consult Date Type of Consult id Requesting Provider: KOKO MARLOW MD Date/Time of Note DATE: 01/20/19 TIME: 14:21 Exam/Review of Systems Exam Vitals Vital Signs Date Temp Pulse Resp B/P (MAP) Pulse Ox O2 O2 Flow FiO2 Time Delivery Rate 01/20/19 88 17 95 21 09:30 01/20/19 98.6 120/56 08:00 (77) 01/17/19 Room Air 14:14 Intake and Output 01/19/19 01/19/19 01/20/19 1515:00 23:00 07:00 IntakeIntake Total 770 ml 290 ml 700 ml OutputOutput Total 500 ml 200 ml 400 ml BalanceBalance 270 ml 90 ml 300 ml Results Result Diagram: 01/19/19 1135 01/19/19 1135 Medications Medication Current Medications IV Flush (NS 3 ml) 3 ml PER PROTOCOL IV ; Start 01/11/19 at 13:00 Ondansetron HCl (Zofran Inj) 4 mg Q6H PRN IV NAUSEA/VOMITING; Start 01/11/19 at 13:00 Acetaminophen (Tylenol Tab) 650 mg Q6H PRN PO .PAIN 1-3 OR TEMP; Start 01/11/19 at 13:00 Albuterol (Proventil 0.083% (Neb)) 2.5 mg Q6 PRN HHN shortness of breath; Start 01/11/19 at 13:00 Spironolactone (Aldactone) 50 mg DAILY PO Last administered on 01/20/19 08:26; Admin Dose 50 MG; Start 01/12/19 at 09:00 Metoprolol Succinate (Toprol Xl) 50 mg DAILY PO Last administered on 01/20/19 08:24; Admin Dose 50 MG; Start 01/12/19 at 09:00 Lorazepam (Ativan) 0.5 mg Q6H PRN IV ANXIETY Last administered on 01/20/19 06:03; Admin Dose 0.5 MG; Start 01/11/19 at 23:00 Clonidine (Catapres) 0.1 mg Q6H PRN PO systolic BP > 160 Last administered on 01/12/19 21:31; Admin Dose 0.1 MG; Start 01/12/19 at 21:00 Levothyroxine Sodium (Synthroid) 225 mcg DAILY@06 PO Last administered on 01/20/19 06:03; Admin Dose 225 MCG; Start 01/13/19 at 06:00 Allopurinol (Zyloprim) 100 mg DAILY PO Last administered on 01/20/19 08:26; Admin Dose 100 MG; Start 01/13/19 at 09:00 Ascorbic Acid (Vitamin C) 500 mg DAILY PO Last administered on 01/20/19 08:26; Admin Dose 500 MG; Start 01/13/19 at 09:00 Docusate Sodium (Colace) 200 mg QHS PO Last administered on 01/18/19 20:35; Admin Dose 200 MG; Start 01/13/19 at 21:00 Epoetin Ghulam-epbx (RETACRIT(non-esrd)) 10,000 unit Q48H SC Last administered on 01/17/19 16:54; Admin Dose 10,000 UNIT; Start 01/13/19 at 18:00 Ferrous Sulfate (Ferrous Sulfate (Ec)) 325 mg DAILY PO Last administered on 01/20/19 08:26; Admin Dose 325 MG; Start 01/13/19 at 09:00 Folic Acid (Folic Acid) 1 mg DAILY PO Last administered on 01/20/19 08:26; Admin Dose 1 MG; Start 01/13/19 at 09:00 Gabapentin (Neurontin) 100 mg TID PO Last administered on 01/20/19 12:07; Admin Dose 100 MG; Start 01/13/19 at 09:00 Lactulose (Enulose) 20 gm BID PO Last administered on 01/19/19 21:45; Admin Do se 20 GM; Start 01/13/19 at 09:00 Lorazepam (Ativan) 1 mg BID PRN PO ANXIETY Last administered on 01/14/19 20:36; Admin Dose 1 MG; Start 01/13/19 at 06:30 Rifaximin (Xifaxan) 550 mg BID PO Last administered on 01/20/19 08:26; Admin Dose 550 MG; Start 01/13/19 at 09:00 Sodium Bicarbonate (Sodium Bicarbonate Tab) 325 mg TID PO Last administered on 01/20/19 12:07; Admin Dose 325 MG; Start 01/13/19 at 09:00 Tamsulosin HCl (Flomax) 0.4 mg HS PO Last administered on 01/19/19 21:46; Admin Dose 0.4 MG; Start 01/13/19 at 21:00 Thiamine HCl (Vitamin B1) 100 mg DAILY PO Last administered on 01/20/19 08:26; Admin Dose 100 MG; Start 01/13/19 at 09:00 Arformoterol Tartrate (Brovana (Neb)) 2 ml BID RESP THERAPY INH Last administered on 01/20/19 09:30; Admin Dose 2 ML; Start 01/13/19 at 09:00 Budesonide (Pulmicort (Neb)) 0.5 mg Q12H RESP THERAPY INH Last administered on 01/20/19 09:31; Admin Dose 0.5 MG; Start 01/13/19 at 09:00 Dorzolamide/ Timolol (Cosopt Pf Eye Drops) 1 drop BID BOTH EYES Last administered on 01/18/19 09:07; Admin Dose 1 DROP; Start 01/13/19 at 11:30 Nicotine (Nicoderm 21 Mg/ 24hr) 1 patch DAILY TRANSDERM Last administered on 01/19/19 09:10; Admin Dose 1 PATCH; Start 01/14/19 at 09:00 Famotidine (Pepcid) 20 mg Q12 PO Last administered on 01/20/19 08:26; Admin Dose 20 MG; Start 01/13/19 at 21:00 Amlodipine Besylate (Norvasc) 5 mg DAILY PO Last administered on 01/20/19 08:26; Admin Dose 5 MG; Start 01/15/19 at 09:00 Hydromorphone HCl (Dilaudid) 1.5 mg Q4H PRN IV SEVERE PAIN LEVEL 7-10 Last administered on 01/20/19 11:50; Admin Dose 1.5 MG; Start 01/15/19 at 05:30 Doxycycline Hyclate (Vibramycin) 100 mg 799,1999 PO Last administered on 01/20/19 08:30; Admin Dose 100 MG; Start 01/15/19 at 20:00 Furosemide (Lasix) 20 mg DAILY PO Last administered on 01/20/19 08:25; Admin Dose 20 MG; Start 01/16/19 at 09:00 Acetaminophen/ Hydrocodone Bitart ([place] (5/325)) 1 tab Q4H PRN PO PAIN Last administered on 01/20/19 01:30; Admin Dose 1 TAB; Start 01/16/19 at 01:00 Buspirone HCl (Buspar) 10 mg BID PO Last administered on 01/20/19 08:26; Admin Dose 10 MG; Start 01/16/19 at 12:30 Meropenem/Sodium Chloride 50 ml @ 100 mls/hr Q12 IVPB Last administered on 01/20/19 08:28; Admin Dose 100 MLS/HR; Start 01/18/19 at 14:30 MELISSA NASH NP Jan 20, 2019 14:22
--- NOTE | 2019-01-20 18:32 | PN ---
Date/Time of Note Date/Time of Note DATE: 01/20/19 TIME: 18:30 Assessment/Plan VTE Prophylaxis Risk score (from [facility] [place])>0 risk: 7 SCD applied (from [facility] [place]): Yes Pharmacological prophylaxis: NA/contraindicated Pharm contraindication: thrombocytopenia Lines/Catheters IV Catheter Type (from [facility], [place]): Saline Lock Urinary Cath still in place: No Assessment/Plan Hospital Course Patient with persistent leukocytosis, currently on antibiotics meropenem and doxycycline, x-rays unremarkable, follow-up on urine and blood cultures. Patient's complaints of generalized pain requiring [place] and Dilaudid. Assessment/Plan -Shortness of breath, rule out acute coronary syndrome, cardiac enzymes are negative x3. -Acute on chronic diastolic congestive heart failure. Continue Lasix. Dr. Foley is following in cardiology consultation. -COPD exacerbation, continue bronchodilators, steroids, and oxygen supplementation. -Anemia, Dr. Mayes is following in gastroenterology consultation. -Alcoholic liver cirrhosis -Acute kidney injury on chronic kidney disease. Dr. Leung is following in nephrology consultation. -Bilateral lower extremities chronic venous stasis -Left foot plantar ulcer. Dr. Younger is following in podiatry consultation. -Obesity -Nicotine dependence, continue nicotine patch, cessation is strongly advised. -Ongoing alcohol use, cessation is strongly advised. -Poor medical compliance Further recommendations based on clinical course. Plan of care discussed with Dr. Lara. Result Diagram: 01/19/19 1135 01/19/19 1135 Exam/Review of Systems Exam Vitals Vital Signs Date Temp Pulse Resp B/P (MAP) Pulse Ox O2 O2 Flow FiO2 Time Delivery Rate 01/20/19 98.8 76 18 136/72 94 14:00 (93) 01/20/19 21 09:30 01/17/19 Room Air 14:14 Intake and Output 01/19/19 01/19/19 01/20/19 1515:00 23:00 07:00 IntakeIntake Total 770 ml 290 ml 700 ml OutputOutput Total 500 ml 200 ml 400 ml BalanceBalance 270 ml 90 ml 300 ml Exam Constitutional: alert, oriented Respiratory: diminished breath sounds, wheezing Cardiovascular: regular rate and rhythm Gastrointestinal: soft, distended Extremities: normal pulses, edema, other (Bilateral lower extremities erythema) Neurological: nl mental status Skin: other (Left foot plantar ulcer) Medications Medication Current Medications IV Flush (NS 3 ml) 3 ml PER PROTOCOL IV ; Start 01/11/19 at 13:00 Ondansetron HCl (Zofran Inj) 4 mg Q6H PRN IV NAUSEA/VOMITING; Start 01/11/19 at 13:00 Acetaminophen (Tylenol Tab) 650 mg Q6H PRN PO .PAIN 1-3 OR TEMP; Start 01/11/19 at 13:00 Albuterol (Proventil 0.083% (Neb)) 2.5 mg Q6 PRN HHN shortness of breath; Start 01/11/19 at 13:00 Spironolactone (Aldactone) 50 mg DAILY PO Last administered on 01/20/19 08:26; Admin Dose 50 MG; Start 01/12/19 at 09:00 Metoprolol Succinate (Toprol Xl) 50 mg DAILY PO Last administered on 01/20/19 08:24; Admin Dose 50 MG; Start 01/12/19 at 09:00 Lorazepam (Ativan) 0.5 mg Q6H PRN IV ANXIETY Last administered on 01/20/19 06:03; Admin Dose 0.5 MG; Start 01/11/19 at 23:00 Clonidine (Catapres) 0.1 mg Q6H PRN PO systolic BP > 160 Last administered on 01/12/19 21:31; Admin Dose 0.1 MG; Start 01/12/19 at 21:00 Levothyroxine Sodium (Synthroid) 225 mcg DAILY@06 PO Last administered on 01/20/19 06:03; Admin Dose 225 MCG; Start 01/13/19 at 06:00 Allopurinol (Zyloprim) 100 mg DAILY PO Last administered on 01/20/19 08:26; Admin Dose 100 MG; Start 01/13/19 at 09:00 Ascorbic Acid (Vitamin C) 500 mg DAILY PO Last administered on 01/20/19 08:26; Admin Dose 500 MG; Start 01/13/19 at 09:00 Docusate Sodium (Colace) 200 mg QHS PO Last administered on 01/18/19 20:35; Admin Dose 200 MG; Start 01/13/19 at 21:00 Epoetin Ghulam-epbx (RETACRIT(non-esrd)) 10,000 unit Q48H SC Last administered on 01/17/19 16:54; Admin Dose 10,000 UNIT; Start 01/13/19 at 18:00 Ferrous Sulfate (Ferrous Sulfate (Ec)) 325 mg DAILY PO Last administered on 01/20/19 08:26; Admin Dose 325 MG; Start 01/13/19 at 09:00 Folic Acid (Folic Acid) 1 mg DAILY PO Last administered on 01/20/19 08:26; Admin Dose 1 MG; Start 01/13/19 at 09:00 Gabapentin (Neurontin) 100 mg TID PO Last administered on 01/20/19 12:07; Admin Dose 100 MG; Start 01/13/19 at 09:00 Lactulose (Enulose) 20 gm BID PO Last administered on 01/20/19 18:20; Admin Dose 20 GM; Start 01/13/19 at 09:00 Lorazepam (Ativan) 1 mg BID PRN PO ANXIETY Last administered on 01/14/19 20:36; Admin Dose 1 MG; Start 01/13/19 at 06:30 Rifaximin (Xifaxan) 550 mg BID PO Last administered on 01/20/19 08:26; Admin Dose 550 MG; Start 01/13/19 at 09:00 Sodium Bicarbonate (Sodium Bicarbonate Tab) 325 mg TID PO Last administered on 01/20/19 12:07; Admin Dose 325 MG; Start 01/13/19 at 09:00 Tamsulosin HCl (Flomax) 0.4 mg HS PO Last administered on 01/19/19 21:46; Admin Dose 0.4 MG; Start 01/13/19 at 21:00 Thiamine HCl (Vitamin B1) 100 mg DAILY PO Last administered on 01/20/19 08:26; Admin Dose 100 MG; Start 01/13/19 at 09:00 Arformoterol Tartrate (Brovana (Neb)) 2 ml BID RESP THERAPY INH Last administered on 01/20/19 09:30; Admin Dose 2 ML; Start 01/13/19 at 09:00 Budesonide (Pulmicort (Neb)) 0.5 mg Q12H RESP THERAPY INH Last administered on 01/20/19 09:31; Admin Dose 0.5 MG; Start 01/13/19 at 09:00 Dorzolamide/ Timolol (Cosopt Pf Eye Drops) 1 drop BID BOTH EYES Last admi nistered on 01/18/19 09:07; Admin Dose 1 DROP; Start 01/13/19 at 11:30 Nicotine (Nicoderm 21 Mg/ 24hr) 1 patch DAILY TRANSDERM Last administered on 01/19/19 09:10; Admin Dose 1 PATCH; Start 01/14/19 at 09:00 Famotidine (Pepcid) 20 mg Q12 PO Last administered on 01/20/19 08:26; Admin Dose 20 MG; Start 01/13/19 at 21:00 Amlodipine Besylate (Norvasc) 5 mg DAILY PO Last administered on 01/20/19 0 8:26; Admin Dose 5 MG; Start 01/15/19 at 09:00 Hydromorphone HCl (Dilaudid) 1.5 mg Q4H PRN IV SEVERE PAIN LEVEL 7-10 Last administered on 01/20/19 15:52; Admin Dose 1.5 MG; Start 01/15/19 at 05:30 Doxycycline Hyclate (Vibramycin) 100 mg 0800,1999 PO Last administered on 01/20/19 08:30; Admin Dose 100 MG; Start 01/15/19 at 20:00 Furosemide (Lasix) 20 mg DAILY PO Last administered on 01/20/19 08:25; Admin Dose 20 MG; Start 01/16/19 at 09:00 Buspirone HCl (Buspar) 10 mg BID PO Last administered on 01/20/19 08:26; Admin Dose 10 MG; Start 01/16/19 at 12:30 Meropenem/Sodium Chloride 50 ml @ 100 mls/hr Q12 IVPB Last administered on 01/20/19 08:28; Admin Dose 100 MLS/HR; Start 01/18/19 at 14:30 Acetaminophen/ Hydrocodone Bitart ([place] ([address])) 2 tab Q4H PRN PO MODERATE PAIN LEVEL 4-6; Start 01/20/19 at 18:30 MILLICENT GOVEA Jan 20, 2019 18:32
[2019-01-20 19:35] VITALS: BP 149/68; PULSE 74; RESP 20
[2019-01-20] MEDS: TAMSULOSIN (SR) 0.4 MG CAP PO SCH (21:18)
[2019-01-20] MEDS: DOCUSATE SODIUM 100 MG CAP PO SCH (21:18)
[2019-01-20] MEDS: HYDROCODONE/APAP (10/325) TAB PO PRN (22:22)
[2019-01-21] MEDS: HYDROmorphONE 1 MG/ML SYG IV PRN ×6 (00:02→22:44)
[2019-01-21] MEDS: LORAZEPAM 2 MG INJ IV PRN ×4 (01:35→23:19)
[2019-01-21 02:03] VITALS: BP 150/67; PULSE 68; RESP 20
[2019-01-21] MEDS: LEVOTHYROXINE 75 MCG TAB PO SCH (05:32)
[2019-01-21] MEDS: HYDROCODONE/APAP (10/325) TAB PO PRN ×4 (05:32→19:24)
[2019-01-21 08:00] VITALS: BP 188/85; PULSE 78; RESP 20
[2019-01-21] MEDS: ARFORMOTEROL TARTRATE 15MCG/2 ML AMP INH SCH ×2 (08:12→20:28)
[2019-01-21] MEDS: BUDESONIDE (NEB) 0.5MG/2ML AMP INH SCH ×2 (08:14→20:27)
[2019-01-21] MEDS: DOXYCYCLINE 100 MG TAB PO SCH ×2 (08:39→21:46)
[2019-01-21] MEDS: THIAMINE 100 MG TAB PO SCH (08:39)
[2019-01-21] MEDS: FOLIC ACID 1 MG TAB PO SCH (08:39)
[2019-01-21] MEDS: RIFAXIMIN 550 MG TAB PO SCH ×2 (08:39→21:47)
[2019-01-21] MEDS: FUROSEMIDE 20 MG TAB PO SCH (08:39)
[2019-01-21] MEDS: NA BICARBONATE 650 MG TAB PO SCH ×3 (08:40→21:46)
[2019-01-21] MEDS: FERROUS SULFATE (EC) 325 MG TAB PO SCH (08:40)
[2019-01-21] MEDS: ALLOPURINOL 100 MG TAB PO SCH (08:40)
[2019-01-21] MEDS: SPIRONOLACTONE 50 MG TAB PO SCH (08:40)
[2019-01-21] MEDS: BUSPIRONE 10 MG TAB PO SCH ×2 (08:40→21:46)
[2019-01-21] MEDS: GABAPENTIN 100 MG CAP PO SCH ×4 (08:40→21:46)
[2019-01-21] MEDS: FAMOTIDINE 20 MG TAB PO SCH ×2 (08:40→21:47)
[2019-01-21] MEDS: METOPROLOL (XL) 50 MG TAB PO SCH (08:40)
[2019-01-21] MEDS: NICOTINE (21 MG/24 HR) PATCH TRANSDERM SCH (08:41)
[2019-01-21] MEDS: AMLODIPINE 5 MG TAB PO SCH ×2 (08:41→21:47)
[2019-01-21] MEDS: DORZOLAMIDE/TIMOLOL/PF 0.2 ML DROPERETTE BOTH EYES SCH ×3 (08:41→19:49)
[2019-01-21] MEDS: ASCORBIC ACID 500 MG TAB PO SCH (08:41)
[2019-01-21] MEDS: LACTULOSE 30ML CUP PO SCH ×2 (08:46→21:46)
[2019-01-21] MEDS: MEROPENEM 500MG/50 ML (PMX) 50 ML IVPB SCH ×2 (08:50→21:46)
[2019-01-21 11:00] VITALS: BP 142/78; PULSE 70
--- NOTE | 2019-01-21 12:22 | CONS ---
Assessment/Plan Assessment/Plan Assessment/Plan (Daily) - Hyperkalemia- Kayexalate 15 gm po x1; BMP am 1. acute on chronic renal failure due to Type II hepatorenal syndrome 2. SIRS 3. anemia of CKD 5. Decompensated Liver cirrhosis with Symptomatic ascites 6. H/O HTN 7. h/o Liver cirrhosis with ascites 8. H/o Diastolic CHF 9. Bilateral LE chronic venous stasis 10.H/o BPH on flomax Plan: Continue IV abx as per ID , renally dose all abx , monitor electorlytes and replace as needed, WBC 19.3 BUN/Cr- trended down to 33/1.41 today k- 5.3 today Continue lasix to 20mg po daily, , spironolactone 50mg po daily , Toprol Xl 50 mg po daily , amlodipine 5 mg po daily on Sodium bicarbonte 325mg PO TID Flomax 0.4mg po daily for BPH will follow up Patient seen in collaboration with Dr Romario Leung. Dw staff nad afebrile UO- 1100 ml /24 hr no new events reported last night per staff Patient seen in collaboration with Dr Romario Leung. Dw staff Consultation Date/Type/Reason Admit Date/Time Jan 11, 2019 at 9:53 am Initial Consult Date 01/12/19 Requesting Provider: KOKO MARLOW MD Date/Time of Note DATE: 01/21/19 TIME: 12:19 24 HR Interval Summary Free Text/Dictation nad afebrile UO- 1900 ml /24 hr no new events reported last night per staff Patient seen in collaboration with Dr Romario Leung. staff Constitutional: requiring O2 Detailed Summary Eyes: no complaints ENT: no complaints Respiratory: no complaints Cardiovascular: no complaints Gastrointestinal: no complaints Genitourinary: no complaints Musculoskeletal: other (generelized weakness) Skin: no complaints Neurologic: no complaints Endocrine: no complaints Lymphatic: no complaints Psychological: nl mood/affect Immunologic: no complaints Exam/Review of Systems Exam Vitals Vital Signs Date Temp Pulse Resp B/P (MAP) Pulse Ox O2 O2 Flow FiO2 Time Delivery Rate 01/21/19 68 16 99 21 08:14 01/21/19 98.4 188/85 08:00 (119) 01/17/19 Room Air 14:14 Intake and Output 01/20/19 01/20/1901/21/19 1515:00 23:00 07:00 IntakeIntake Total 850 ml 50 ml 250 ml OutputOutput Total 1000 ml 350 ml 550 ml BalanceBalance -150 ml -300 ml -300 ml Constitutional: alert, well developed Psych: nl mood/affect Head: atraumatic Eyes: nl lids, nl sclera ENMT: nl external ears & nose Neck: non-tender Respiratory: diminished breath sounds (at bases bilaterally) Cardiovascular: nl pulses, other (s1s2) Gastrointestinal: soft Musculoskeletal: nl extremities to inspection Extremities: normal pulses Neurological: nl speech, other (alert/responsive) Skin: other (chronic changes BLE) Lymph: nontender Results Result Diagram: 01/21/19 0821 01/21/19 0821 Results 24hrs Laboratory Tests Test 01/21/19 08:21 White Blood Count 19.3 H Red Blood Count 4.79 Hemoglobin 10.0 L Hematocrit 36.7 L Mean Corpuscular Volume 76.6 L Mean Corpuscular Hemoglobin 20.9 L Mean Corpuscular Hemoglobin Concent 27.2 L Red Cell Distribution Width 24.0 H Platelet Count 240 Mean Platelet Volume Immature Granulocytes % 6.500 H Neutrophils % Segmented Neutrophils % (Manual) 68 Band Neutrophils % (Manual) 3 Lymphocytes % Lymphocytes % (Manual) 6 L Reactive Lymphocytes % (Manual) 1 H Monocytes % Monocytes % (Manual) 17 H Eosinophils % Eosinophils % (Manual) 1 Basophils % Basophils % (Manual) 1 Myelocytes % (Manual) 3 H Nucleated Red Blood Cells % 0.0 Immature Granulocytes # 1.250 H Neutrophils # Neutrophils # (Manual) 13.2 H Band Neutrophils # 0.5 Lymphocytes (Manual) 1.1 Lymphocytes # Reactive Lymphocytes # 0.1 H Monocytes # Monocytes # (Manual) 3.2 H Eosinophils # Basophils # Basophils # (Manual) 0.1 H Myelocytes # 0.5 H Nucleated Red Blood Cells # Platelet Estimate NORMAL Giant Platelets 8 H Polychromasia 3+ Hypochromasia 1+ Poikilocytosis 1+ Anisocytosis 1+ Microcytosis 1+ Spherocytes 1+ Sodium Level 141 Potassium Level 5.3 H Chloride Level 110 Carbon Dioxide Level 20 L Anion Gap 11 Blood Urea Nitrogen 33 H Creatinine 1.41 H Est Glomerular Filtrat Rate mL/min 51 L Glucose Level 91 Calcium Level 9.1 Medications Medication Current Medications IV Flush (NS 3 ml) 3 ml PER PROTOCOL IV ; Start 01/11/19 at 13:00 Ondansetron HCl (Zofran Inj) 4 mg Q6H PRN IV NAUSEA/VOMITING; Start 01/11/19 at 13:00 Acetaminophen (Tylenol Tab) 650 mg Q6H PRN PO .PAIN 1-3 OR TEMP; Start 01/11/19 at 13:00 Albuterol (Proventil 0.083% (Neb)) 2.5 mg Q6 PRN HHN shortness of breath; Start 01/11/19 at 13:00 Spironolactone (Aldactone) 50 mg DAILY PO Last administered on 01/21/19 08:40; Admin Dose 50 MG; Start 01/12/19 at 09:00 Metoprolol Succinate (Toprol Xl) 50 mg DAILY PO Last administered on 01/21/19 08:40; Admin Dose 50 MG; Start 01/12/19 at 09:00 Lorazepam (Ativan) 0.5 mg Q6H PRN IV ANXIETY Last administered on 01/21/19 07:40; Admin Dose 0.5 MG; Start 01/11/19 at 23:00 Clonidine (Catapres) 0.1 mg Q6H PRN PO systolic BP > 160 Last administered on 01/12/19 21:31; Admin Dose 0.1 MG; Start 01/12/19 at 21:00 Levothyroxine Sodium (Synthroid) 225 mcg DAILY@06 PO Last administered on 01/21/19 05:32; Admin Dose 225 MCG; Start 01/13/19 at 06:00 Allopurinol (Zyloprim) 100 mg DAILY PO Last administered on 01/21/19 08:40; Admin Dose 100 MG; Start 01/13/19 at 09:00 Ascorbic Acid (Vitamin C) 500 mg DAILY PO Last administered on 01/21/19 08:41; Admin Dose 500 MG; Start 01/13/19 at 09:00 Docusate Sodium (Colace) 200 mg QHS PO Last administered on 01/20/19 21:18; Admin Dose 200 MG; Start 01/13/19 at 21:00 Epoetin Ghulam-epbx (RETACRIT(non-esrd)) 10,000 unit Q48H SC Last administered on 01/17/19 16:54; Admin Dose 10,000 UNIT; Start 01/13/19 at 18:00 Ferrous Sulfate (Ferrous Sulfate (Ec)) 325 mg DAILY PO Last administered on 01/21/19 08:40; Admin Dose 325 MG; Start 01/13/19 at 09:00 Folic Acid (Folic Acid) 1 mg DAILY PO Last administered on 01/21/19 08:39; Admin Dose 1 MG; Start 01/13/19 at 09:00 Gabapentin (Neurontin) 100 mg TID PO Last administered on 01/20/19 12:07; Admin Dose 100 MG; Start 01/13/19 at 09:00 Lactulose (Enulose) 20 gm BID PO Last administered on 01/20/19 18:20; Admin Dose 20 GM; Start 01/13/19 at 09:00 Lorazepam (Ativan) 1 mg BID PRN PO ANXIETY Last administered on 01/14/19 20:36; Admin Dose 1 MG; Start 01/13/19 at 06:30 Rifaximin (Xifaxan) 550 mg BID PO Last administered on 01/21/19 08:39; Admin Dose 550 MG; Start 01/13/19 at 09:00 Sodium Bicarbonate (Sodium Bicarbonate Tab) 325 mg TID PO Last administered on 01/21/19 08:40; Admin Dose 325 MG; Start 01/13/19 at 09:00 Tamsulosin HCl (Flomax) 0.4 mg HS PO Last administered on 01/20/19 21:18; Admin Dose 0.4 MG; Start 01/13/19 at 21:00 Thiamine HCl (Vitamin B1) 100 mg DAILY PO Last administered on 01/21/19 08:39; Admin Dose 100 MG; Start 01/13/19 at 09:00 Arformoterol Tartrate (Brovana (Neb)) 2 ml BID RESP THERAPY INH Last administered on 01/21/19 08:12; Admin Dose 2 ML; Start 01/13/19 at 09:00 Budesonide (Pulmicort (Neb)) 0.5 mg Q12H RESP THERAPY INH Last administered on 01/21/19 08:14; Admin Dose 0.5 MG; Start 01/13/19 at 09:00 Dorzolamide/ Timolol (Cosopt Pf Eye Drops) 1 drop BID BOTH EYES Last administered on 01/18/19 09:07; Admin Dose 1 DROP; Start 01/13/19 at 11:30 Nicotine (Nicoderm 21 Mg/ 24hr) 1 patch DAILY TRANSDERM Last administered on 01/21/19 08:41; Admin Dose 1 PATCH; Start 01/14/19 at 09:00 Famotidine (Pepcid) 20 mg Q12 PO Last administered on 01/21/19 08:40; Admin D ose 20 MG; Start 01/13/19 at 21:00 Amlodipine Besylate (Norvasc) 5 mg DAILY PO Last administered on 01/21/19 08:41; Admin Dose 5 MG; Start 01/15/19 at 09:00 Hydromorphone HCl (Dilaudid) 1.5 mg Q4H PRN IV SEVERE PAIN LEVEL 7-10 Last administered on 01/21/19 08:34; Admin Dose 1.5 MG; Start 01/15/19 at 05:30 Doxycycline Hyclate (Vibramycin) 100 mg 0800,1999 PO Last administered on 01/21/19 08:39; Admin Dose 100 MG; Start 01/15/19 at 20:00 Furosemide (Lasix) 20 mg DAILY PO Last administered on 01/21/19 08:39; Admin Dose 20 MG; Start 01/16/19 at 09:00 Buspirone HCl (Buspar) 10 mg BID PO Last administered on 01/21/19 08:40; Admin Dose 10 MG; Start 01/16/19 at 12:30 Meropenem/Sodium Chloride 50 ml @ 100 mls/hr Q12 IVPB Last administered on 01/21/19 08:50; Admin Dose 100 MLS/HR; Start 01/18/19 at 14:30 Acetaminophen/ Hydrocodone Bitart ([place] (10/325)) 2 tab Q4H PRN PO MODERATE PAIN LEVEL 4-6 Last administered on 01/21/19 09:42; Admin Dose 2 TAB; Start 01/20/19 at 18:30 GO LAMBERT Jan 21, 2019 12:22
[2019-01-21] MEDS ORDERED: NA POLYST SULFON 15 GM/60 ML BTL PO ONE (12:30)
--- NOTE | 2019-01-21 12:56 | CONS ---
Assessment/Plan Assessment/Plan Hospital Course (Demo Recall) No acute changes per report, no fevers, looks comfortable Abdominal ultrasound revealed no ascites Antimicrobials: Merrem doxycycline Physical examination: This is a wasted well-developed chronically ill-appearing elderly man who is in no distress. Head atraumatic normocephalic sclera rachel cteric. Neck is supple chest rise symmetrical breath sounds diminished bases. Heart: S1-S2. Abdomen soft bowel sounds present. Extremities without BLE edema, mild erythema, no cyanosis. Assessment: 1. Systemic inflammatory response syndrome with ongoing leukocytosis, clinically stable 2. S/p COPD exacerbation 3. Alcohol abuse 4. Bilateral lower extremities acute on chronic cellulitis/chronic venous stasis 5. Cirrhosis with recurrent ascites 6. Chronic kidney disease 7. CHF 8. Noncompliance Plan: Clinically unchanged, continue present care and antibiotics, f/u GI/renal rec-s Consultation Date/Type/Reason Admit Date/Time Jan 11, 2019 at 09:53 Initial Consult Date Type of Consult id Requesting Provider: KOKO MARLOW MD Date/Time of Note DATE: 01/21/19 TIME: 12:55 Exam/Review of Systems Exam Vitals Vital Signs Date Temp Pulse Resp B/P (MAP) Pulse Ox O2 O2 Flow FiO2 Time Delivery Rate 01/21/19 68 16 99 21 08:14 01/21/19 98.4 188/85 08:00 (119) 01/17/19 Room Air 14:14 Intake and Output 01/20/19 01/20/19 01/21/19 1515:00 23:00 07:00 IntakeIntake Total 850 ml 50 ml 250 ml OutputOutput Total 1000 ml 350 ml 550 ml BalanceBalance -150 ml -300 ml -300 ml Results Result Diagram: 01/21/19 0821 01/21/19 0821 Results 24hrs Laboratory Tests Test 01/21/19 08:21 White Blood Count 19.3 H Red Blood Count 4.79 Hemoglobin 10.0 L Hematocrit 36.7 L Mean Corpuscular Volume 76.6 L Mean Corpuscular Hemoglobin 20.9 L Mean Corpuscular Hemoglobin Concent 27.2 L Red Cell Distribution Width 24.0 H Platelet Count 240 Mean Platelet Volume Immature Granulocytes % 6.500 H Neutrophils % Segmented Neutrophils % (Manual) 68 Band Neutrophils % (Manual) 3 Lymphocytes % Lymphocytes % (Manual) 6 L Reactive Lymphocytes % (Manual) 1 H Monocytes % Monocytes % (Manual) 17 H Eosinophils % Eosinophils % (Manual) 1 Basophils % Basophils % (Manual) 1 Myelocytes % (Manual) 3 H Nucleated Red Blood Cells % 0.0 Immature Granulocytes # 1.250 H Neutrophils # Neutrophils # (Manual) 13.2 H Band Neutrophils # 0.5 Lymphocytes (Manual) 1.1 Lymphocytes # Reactive Lymphocytes # 0.1 H Monocytes # Monocytes # (Manual) 3.2 H Eosinophils # Basophils # Basophils # (Manual) 0.1 H Myelocytes # 0.5 H Nucleated Red Blood Cells # Platelet Estimate NORMAL Giant Platelets 8 H Polychromasia 3+ Hypochromasia 1+ Poikilocytosis 1+ Anisocytosis 1+ Microcytosis 1+ Spherocytes 1+ Sodium Level 141 Potassium Level 5.3 H Chloride Level 110 Carbon Dioxide Level 20 L Anion Gap 11 Blood Urea Nitrogen 33 H Creatinine 1.41 H Est Glomerular Filtrat Rate mL/min 51 L Glucose Level 91 Calcium Level 9.1 Medications Medication Current Medications IV Flush (NS 3 ml) 3 ml PER PROTOCOL IV ; Start 01/11/19 at 13:00 Ondansetron HCl (Zofran Inj) 4 mg Q6H PRN IV NAUSEA/VOMITING; Start 01/11/19 at 13:00 Acetaminophen (Tylenol Tab) 650 mg Q6H PRN PO .PAIN 1-3 OR TEMP; Start 01/11/19 at 13:00 Albuterol (Proventil 0.083% (Neb)) 2.5 mg Q6 PRN HHN shortness of breath; Start 01/11/19 at 13:00 Spironolactone (Aldactone) 50 mg DAILY PO Last administered on 01/21/19at 08:40; Admin Dose 50 MG; Start 01/12/19 at 09:00 Metoprolol Succinate (Toprol Xl) 50 mg DAILY PO Last administered on 01/21/19at 08:40; Admin Dose 50 MG; Start 01/12/19 at 09:00 Lorazepam (Ativan) 0.5 mg Q6H PRN IV ANXIETY Last administered on 01/21/19at 07:40; Admin Dose 0.5 MG; Start 01/11/19 at 23:00 Clonidine (Catapres) 0.1 mg Q6H PRN PO systolic BP > 160 Last administered on 01/12/19 21:31; Admin Dose 0.1 MG; Start 01/12/19 at 21:00 Levothyroxine Sodium (Synthroid) 225 mcg DAILY@06 PO Last administered on 01/21/19 05:32; Admin Dose 225 MCG; Start 01/13/19 at 06:00 Allopurinol (Zyloprim) 100 mg DAILY PO Last administered on 01/21/19 08:40; Admin Dose 100 MG; Start 01/13/19 at 09:00 Ascorbic Acid (Vitamin C) 500 mg DAILY PO Last administered on 01/21/19 08:41; Admin Dose 500 MG; Start 01/13/19 at 09:00 Docusate Sodium (Colace) 200 mg QHS PO Last administered on 01/20/19 21:18; Admin Dose 200 MG; Start 01/13/19 at 21:00 Epoetin Ghulam-epbx (RETACRIT(non-esrd)) 10,000 unit Q48H SC Last administered on 01/17/19 16:54; Admin Dose 10,000 UNIT; Start 01/13/19 at 18:00 Ferrous Sulfate (Ferrous Sulfate (Ec)) 325 mg DAILY PO Last administered on 01/21/19 08:40; Admin Dose 325 MG; Start 01/13/19 at 09:00 Folic Acid (Folic Acid) 1 mg DAILY PO Last administered on 01/21/19 08:39; Admin Dose 1 MG; Start 01/13/19 at 09:00 Gabapentin (Neurontin) 100 mg TID PO Last administered on 01/21/19 12:43; Admin Dose 100 MG; Start 01/13/19 at 09:00 Lactulose (Enulose) 20 gm BID PO Last administered on 01/20/19 18:20; Admin Dose 20 GM; Start 01/13/19 at 09:00 Lorazepam (Ativan) 1 mg BID PRN PO ANXIETY Last administered on 01/14/19 20:36; Admin Dose 1 MG; Start 01/13/19 at 06:30 Rifaximin (Xifaxan) 550 mg BID PO Last administered on 01/21/19 08:39; Admin Dose 550 MG; Start 01/13/19 at 09:00 Sodium Bicarbonate (Sodium Bicarbonate Tab) 325 mg TID PO Last administered on 01/21/19 12:43; Admin Dose 325 MG; Start 01/13/19 at 09:00 Tamsulosin HCl (Flomax) 0.4 mg HS PO Last administered on 01/20/19 21:18; Admin Dose 0.4 MG; Start 01/13/19 at 21:00 Thiamine HCl (Vitamin B1) 100 mg DAILY PO Last administered on 01/21/19 08:39; Admin Dose 100 MG; Start 01/13/19 at 09:00 Arformoterol Tartrate (Brovana (Neb)) 2 ml BID RESP THERAPY INH Last administered on 01/21/19 08:12; Admin Dose 2 ML; Start 01/13/19 at 09:00 Budesonide (Pulmicort (Neb)) 0.5 mg Q12H RESP THERAPY INH Last administered on 01/21/19 08:14; Admin Dose 0.5 MG; Start 01/13/19 at 09:00 Dorzolamide/ Timolol (Cosopt Pf Eye Drops) 1 drop BID BOTH EYES Last administered on 01/18/19 09:07; Admin Dose 1 DROP; Start 01/13/19 at 11:30 Nicotine (Nicoderm 21 Mg/ 24hr) 1 patch DAILY TRANSDERM Last administered on 01/21/19 08:41; Admin Dose 1 PATCH; Start 01/14/19 at 09:00 Famotidine (Pepcid) 20 mg Q12 PO Last administered on 01/21/19 08:40; Admin Dose 20 MG; Start 01/13/19 at 21:00 Amlodipine Besylate (Norvasc) 5 mg DAILY PO Last administered on 01/21/19 08:41; Admin Dose 5 MG; Start 01/15/19 at 09:00 Hydromorphone HCl (Dilaudid) 1.5 mg Q4H PRN IV SEVERE PAIN LEVEL 7-10 Last administered on 01/21/19 12:38; Admin Dose 1.5 MG; Start 01/15/19 at 05:30 Doxycycline Hyclate (Vibramycin) 100 mg 0800,1999 PO Last administered on 01/21/19 08:39; Admin Dose 100 MG; Start 01/15/19 at 20:00 Furosemide (Lasix) 20 mg DAILY PO Last administered on 01/21/19 08:39; Admin Dose 20 MG; Start 01/16/19 at 09:00 Buspirone HCl (Buspar) 10 mg BID PO Last administered on 01/21/19at 08:40; Admin Dose 10 MG; Start 01/16/19 at 12:30 Meropenem/Sodium Chloride 50 ml @ 100 mls/hr Q12 IVPB Last administered on 01/21/19at 08:50; Admin Dose 100 MLS/HR; Start 01/18/19 at 14:30 Acetaminophen/ Hydrocodone Bitart ([place] (10/325)) 2 tab Q4H PRN PO MODERATE PAIN LEVEL 4-6 Last administered on 01/21/19at 09:42; Admin Dose 2 TAB; Start 01/20/19 at 18:30 MELISSA NSAH SCALEMAN Jan 21, 2019 12:56
[2019-01-21 14:00] VITALS: BP 166/77; PULSE 111; RESP 20
--- NOTE | 2019-01-21 14:50 | PN ---
Date/Time of Note Date/Time of Note DATE: 01/21/19 TIME: 14:41 Assessment/Plan VTE Prophylaxis Risk score (from Ns)>0 risk: 7 SCD applied (from Ns): Yes Pharmacological prophylaxis: NA/contraindicated Pharm contraindication: liver dx Lines/Catheters IV [facility]from [facility] Urinary Cath still in place: No Assessment/Plan Hospital Course Patient is awake alert, complains of lower extremities back pain and wrist pain and anxiety, patient is currently on Enderlin Ativan and Dilaudid as needed for breakthrough pain discussed with Dr. Lara continue patient on current regimen. Kayexalate is giving for potassium of 5.3. BMP tomorrow. Patient was persistent leukocytosis, continued on antibiotic, we will follow up on final cultures. Assessment/Plan -Shortness of breath, rule out acute coronary syndrome, cardiac enzymes are negative x3. -Acute on chronic diastolic congestive heart failure. Continue Lasix. Dr. Foley is following in cardiology consultation. -COPD exacerbation, continue bronchodilators, steroids, and oxygen supplementation. -Anemia, Dr. Mayes is following in gastroenterology consultation. -Alcoholic liver cirrhosis -Acute kidney injury on chronic kidney disease. Dr. Leung is following in [facility] hrology consultation. -Bilateral lower extremities chronic venous stasis -Left foot plantar ulcer. Dr. Younger is following in podiatry consultation. -Obesity -Nicotine dependence, continue nicotine patch, cessation is strongly advised. -Ongoing alcohol use, cessation is strongly advised. -Poor medical compliance Further recommendations based on clinical course. Plan of care discussed with Dr. Lara. Result Diagram: 01/21/19 0821 01/21/19 0821 Results 24hrs Laboratory Tests Test 01/21/19 08:21 White Blood Count 19.3 H Red Blood Count 4.79 Hemoglobin 10.0 L Hematocrit 36.7 L Mean Corpuscular Volume 76.6 L Mean Corpuscular Hemoglobin 20.9 L Mean Corpuscular Hemoglobin Concent 27.2 L Red Cell Distribution Width 24.0 H Platelet Count 240 Mean Platelet Volume Immature Granulocytes % 6.500 H Neutrophils % Segmented Neutrophils % (Manual) 68 Band Neutrophils % (Manual) 3 Lymphocytes % Lymphocytes % (Manual) 6 L Reactive Lymphocytes % (Manual) 1 H Monocytes % Monocytes % (Manual) 17 H Eosinophils % Eosinophils % (Manual) 1 Basophils % Basophils % (Manual) 1 Myelocytes % (Manual) 3 H Nucleated Red Blood Cells % 0.0 Immature Granulocytes # 1.250 H Neutrophils # Neutrophils # (Manual) 13.2 H Band Neutrophils # 0.5 Lymphocytes (Manual) 1.1 Lymphocytes # Reactive Lymphocytes # 0.1 H Monocytes # Monocytes # (Manual) 3.2 H Eosinophils # Basophils # Basophils # (Manual) 0.1 H Myelocytes # 0.5 H Nucleated Red Blood Cells # Platelet Estimate NORMAL Giant Platelets 8 H Polychromasia 3+ Hypochromasia 1+ Poikilocytosis 1+ Anisocytosis 1+ Microcytosis 1+ Spherocytes 1+ Sodium Level 141 Potassium Level 5.3 H Chloride Level 110 Carbon Dioxide Level 20 L Anion Gap 11 Blood Urea Nitrogen 33 H Creatinine 1.41 H Est Glomerular Filtrat Rate mL/min 51 L Glucose Level 91 Calcium Level 9.1 Exam/Review of Systems Exam Vitals Vital Signs Date Temp Pulse Resp B/P (MAP) Pulse Ox O2 O2 Flow FiO2 Time Delivery Rate 01/21/19 70 142/78 11:00 (99) 01/21/19 16 99 21 08:14 01/21/19 98.4 08:00 01/17/19 Room Air 14:14 Intake and Output 01/20/19 01/20/19 01/21/19 1515:00 23:00 07:00 IntakeIntake Total 850 ml 50 ml 250 ml OutputOutput Total 1000 ml 350 ml 550 ml BalanceBalance -150 ml -300 ml -300 ml Exam Constitutional: alert, oriented Respiratory: diminished breath sounds, wheezing Cardiovascular: regular rate and rhythm Gastrointestinal: soft, distended Extremities: normal pulses, edema, other (Bilateral lower extremities erythema) Neurological: nl mental status Skin: other (Left foot plantar ulcer, dry) Results Results 24hrs Laboratory Tests Test 01/21/19 08:21 White Blood Count 19.3 H Red Blood Count 4.79 Hemoglobin 10.0 L Hematocrit 36.7 L Mean Corpuscular Volume 76.6 L Mean Corpuscular Hemoglobin 20.9 L Mean Corpuscular Hemoglobin Concent 27.2 L Red Cell Distribution Width 24.0 H Platelet Count 240 Mean Platelet Volume Immature Granulocytes % 6.500 H Neutrophils % Segmented Neutrophils % (Manual) 68 Band Neutrophils % (Manual) 3 Lymphocytes % Lymphocytes % (Manual) 6 L Reactive Lymphocytes % (Manual) 1 H Monocytes % Monocytes % (Manual) 17 H Eosinophils % Eosinophils % (Manual) 1 Basophils % Basophils % (Manual) 1 Myelocytes % (Manual) 3 H Nucleated Red Blood Cells % 0.0 Immature Granulocytes # 1.250 H Neutrophils # Neutrophils # (Manual) 13.2 H Band Neutrophils # 0.5 Lymphocytes (Manual) 1.1 Lymphocytes # Reactive Lymphocytes # 0.1 H Monocytes # Monocytes # (Manual) 3.2 H Eosinophils # Basophils # Basophils # (Manual) 0.1 H Myelocytes # 0.5 H Nucleated Red Blood Cells # Platelet Estimate NORMAL Giant Platelets 8 H Polychromasia 3+ Hypochromasia 1+ Poikilocytosis 1+ Anisocytosis 1+ Microcytosis 1+ Spherocytes 1+ Sodium Level 141 Potassium Level 5.3 H Chloride Level 110 Carbon Dioxide Level 20 L Anion Gap 11 Blood Urea Nitrogen 33 H Creatinine 1.41 H Est Glomerular Filtrat Rate mL/min 51 L Glucose Level 91 Calcium Level 9.1 Medications Medication Current Medications IV Flush (NS 3 ml) 3 ml PER PROTOCOL IV ; Start 01/11/19 at 13:00 Ondansetron HCl (Zofran Inj) 4 mg Q6H PRN IV NAUSEA/VOMITING; Start 01/11/19 at 13:00 Acetaminophen (Tylenol Tab) 650 mg Q6H PRN PO .PAIN 1-3 OR TEMP; Start 01/11/19 at 13:00 Albuterol (Proventil 0.083% (Neb)) 2.5 mg Q6 PRN HHN shortness of breath; Start 01/11/19 at 13:00 Spironolactone (Aldactone) 50 mg DAILY PO Last administered on 01/21/19 08:40; Admin Dose 50 MG; Start 01/12/19 at 09:00 Metoprolol Succinate (Toprol Xl) 50 mg DAILY PO Last administered on 01/21/19 08:40; Admin Dose 50 MG; Start 01/12/19 at 09:00 Lorazepam (Ativan) 0.5 mg Q6H PRN IV ANXIETY Last administered on 01/21/19 07:40; Admin Dose 0.5 MG; Start 01/11/19 at 23:00 Clonidine (Catapres) 0.1 mg Q6H PRN PO systolic BP > 160 Last administered on 01/12/19at 21:31; Admin Dose 0.1 MG; Start 01/12/19 at 21:00 Levothyroxine Sodium (Synthroid) 225 mcg DAILY@06 PO Last administered on 01/21/19 05:32; Admin Dose 225 MCG; Start 01/13/19 at 06:00 Allopurinol (Zyloprim) 100 mg DAILY PO Last administered on 01/21/19 08:40; Admin Dose 100 MG; Start 01/13/19 at 09:00 Ascorbic Acid (Vitamin C) 500 mg DAILY PO Last administered on 01/21/19 08:41; Admin Dose 500 MG; Start 01/13/19 at 09:00 Docusate Sodium (Colace) 200 mg QHS PO Last administered on 01/20/19 21:18; Admin Dose 200 MG; Start 01/13/19 at 21:00 Epoetin Ghulam-epbx (RETACRIT(non-esrd)) 10,000 unit Q48H SC Last administered on 01/17/19 16:54; Admin Dose 10,000 UNIT; Start 01/13/19 at 18:00 Ferrous Sulfate (Ferrous Sulfate (Ec)) 325 mg DAILY PO Last administered on 01/21/19 08:40; Admin Dose 325 MG; Start 01/13/19 at 09:00 Folic Acid (Folic Acid) 1 mg DAILY PO Last administered on 01/21/19 08:39; Admin Dose 1 MG; Start 01/13/19 at 09:00 Gabapentin (Neurontin) 100 mg TID PO Last administered on 01/21/19 12:43; Admin Dose 100 MG; Start 01/13/19 at 09:00 Lactulose (Enulose) 20 gm BID PO Last administered on 01/20/19 18:20; Admin Dose 20 GM; Start 01/13/19 at 09:00 Lorazepam (Ativan) 1 mg BID PRN PO ANXIETY Last administered on 01/14/19 20:36; Admin Dose 1 MG; Start 01/13/19 at 06:30 Rifaximin (Xifaxan) 550 mg BID PO Last administered on 01/21/19 08:39; Admin Dose 550 MG; Start 01/13/19 at 09:00 Sodium Bicarbonate (Sodium Bicarbonate Tab) 325 mg TID PO Last administered on 01/21/19 12:43; Admin Dose 325 MG; Start 01/13/19 at 09:00 Tamsulosin HCl (Flomax) 0.4 mg HS PO Last administered on 01/20/19 21:18; Admin Dose 0.4 MG; Start 01/13/19 at 21:00 Thiamine HCl (Vitamin B1) 100 mg DAILY PO Last administered on 01/21/19 08:39; Admin Dose 100 MG; Start 01/13/19 at 09:00 Arformoterol Tartrate (Brovana (Neb)) 2 ml BID RESP THERAPY INH Last administered on 01/21/19 08:12; Admin Dose 2 ML; Start 01/13/19 at 09:00 Budesonide (Pulmicort (Neb)) 0.5 mg Q12H RESP THERAPY INH Last administered on 01/21/19 08:14; Admin Dose 0.5 MG; Start 01/13/19 at 09:00 Dorzolamide/ Timolol (Cosopt Pf Eye Drops) 1 drop BID BOTH EYES Last administered on 01/18/19 09:07; Admin Dose 1 DROP; Start 01/13/19 at 11:30 Nicotine (Nicoderm 21 Mg/ 24hr) 1 patch DAILY TRANSDERM Last administered on 01/21/19 08:41; Admin Dose 1 PATCH; Start 01/14/19 at 09:00 Famotidine (Pepcid) 20 mg Q12 PO Last administered on 01/21/19 08:40; Admin Dose 20 MG; Start 01/13/19 at 21:00 Amlodipine Besylate (Norvasc) 5 mg DAILY PO Last administered on 01/21/19 08:41; Admin Dose 5 MG; Start 01/15/19 at 09:00 Hydromorphone HCl (Dilaudid) 1.5 mg Q4H PRN IV SEVERE PAIN LEVEL 7-10 Last administered on 01/21/19 12:38; Admin Dose 1.5 MG; Start 01/15/19 at 05:30 Doxycycline Hyclate (Vibramycin) 100 mg 0800,1999 PO Last administered on 01/21/19 08:39; Admin Dose 100 MG; Start 01/15/19 at 20:00 Furosemide (Lasix) 20 mg DAILY PO Last administered on 01/21/19 08:39; Admin Dose 20 MG; Start 01/16/19 at 09:00 Buspirone HCl (Buspar) 10 mg BID PO Last administered on 01/21/19at 08:40; Admin Dose 10 MG; Start 01/16/19 at 12:30 Meropenem/Sodium Chloride 50 ml @ 100 mls/hr Q12 IVPB Last administered on 01/21/19at 08:50; Admin Dose 100 MLS/HR; Start 01/18/19 at 14:30 Acetaminophen/ Hydrocodone Bitart (Enderlin ()) 2 tab Q4H PRN PO MODERATE PAIN LEVEL 4-6 Last administered on 01/21/19at 14:25; Admin Dose 2 TAB; Start 01/20/19 at 18:30 MILLICENT GOVEA Jan 21, 2019 14:50
--- NOTE | 2019-01-21 15:48 | CONS ---
Assessment/Plan Assessment/Plan Hospital Course (Demo Recall) IMPRESSION: 1. Congestive heart failure exacerbation, diastolic, acute on chronic. 2. Hypertension-mildly elavated 3. Shortness of breath secondary to congestive heart failure exacerbation, d iastolic, acute on chronic. 4. Chronic renal failure. 5. Cirrhosis. 6. Ascites, recurrent. 7. Hypothyroidism. 8. History of ETOH abuse. 9. Anemia. 10.leukocytosis-worsening REcc: -ON med-surg -serial ecg's -Contineu lasix/aldactone and follow volume status closely and ascites -Continue toprol and CCB with slight increase to improve BP control -Continue lactulose -pain control -Continue abx's and f/u cx data -ID following Consultation Date/Type/Reason Admit Date/Time Jan 11, 2019 at 09:53 Initial Consult Date 01/12/19 Type of Consult Cardiology Reason for Consultation CHF Requesting Provider: KOKO MARLOW MD Date/Time of Note DATE: 01/21/19 TIME: 15:44 Exam/Review of Systems Vital Signs Vitals Vital Signs Date Temp Pulse Resp B/P (MAP) Pulse Ox O2 O2 Flow FiO2 Time Delivery Rate 01/21/19 98.0 111 20 166/77 94 14:00 (106) 01/21/19 21 08:14 01/17/19 Room Air 14:14 Intake and Output 01/20/19 01/20/19 01/21/19 1515:00 23:00 07:00 IntakeIntake Total 850 ml 50 ml 250 ml OutputOutput Total 1000 ml 350 ml 550 ml BalanceBalance -150 ml -300 ml -300 ml Exam Exam Review of Systems: CONSTITUTIONAL: No fevers, chills. PULMONARY: No sob CARDIOVASCULAR: No chest pain/palpitations GASTROINTESTINAL: No nausea/vomiting. GENITOURINARY: No hematuria/dysuria. MUSCULOSKELETAL: No myagias/arthalgias. PSYCHIATRIC: The patient denies depression. NEUROLOGIC: No weakness Constitutional: other (sleeping) Psych: no complaints Head: normocephalic ENMT: mucosa pink and moist Neck: supple, jvd (9 cm water) Respiratory: clear to auscultation Cardiovascular: regular rate and rhythm Gastrointestinal: soft, non-tender Musculoskeletal: muscle tone (normal) Extremities: pitting pedal edema (bilateral) Neurological: other Labs Result Diagram: 01/21/19 0821 01/21/19 0821 Results 24hrs Laboratory Tests Test 01/21/19 08:21 White Blood Count 19.3 H Red Blood Count 4.79 Hemoglobin 10.0 L Hematocrit 36.7 L Mean Corpuscular Volume 76.6 L Mean Corpuscular Hemoglobin 20.9 L Mean Corpuscular Hemoglobin Concent 27.2 L Red Cell Distribution Width 24.0 H Platelet Count 240 Mean Platelet Volume Immature Granulocytes % 6.500 H Neutrophils % Segmented Neutrophils % (Manual) 68 Band Neutrophils % (Manual) 3 Lymphocytes % Lymphocytes % (Manual) 6 L Reactive Lymphocytes % (Manual) 1 H Monocytes % Monocytes % (Manual) 17 H Eosinophils % Eosinophils % (Manual) 1 Basophils % Basophils % (Manual) 1 Myelocytes % (Manual) 3 H Nucleated Red Blood Cells % 0.0 Immature Granulocytes # 1.250 H Neutrophils # Neutrophils # (Manual) 13.2 H Band Neutrophils # 0.5 Lymphocytes (Manual) 1.1 Lymphocytes # Reactive Lymphocytes # 0.1 H Monocytes # Monocytes # (Manual) 3.2 H Eosinophils # Basophils # Basophils # (Manual) 0.1 H Myelocytes # 0.5 H Nucleated Red Blood Cells # Platelet Estimate NORMAL Giant Platelets 8 H Polychromasia 3+ Hypochromasia 1+ Poikilocytosis 1+ Anisocytosis 1+ Microcytosis 1+ Spherocytes 1+ Sodium Level 141 Potassium Level 5.3 H Chloride Level 110 Carbon Dioxide Level 20 L Anion Gap 11 Blood Urea Nitrogen 33 H Creatinine 1.41 H Est Glomerular Filtrat Rate mL/min 51 L Glucose Level 91 Calcium Level 9.1 Medications Medications Current Medications IV Flush (NS 3 ml) 3 ml PER PROTOCOL IV ; Start 01/11/19 at 13:00 Ondansetron HCl (Zofran Inj) 4 mg Q6H PRN IV NAUSEA/VOMITING; Start 01/11/19 at 13:00 Acetaminophen (Tylenol Tab) 650 mg Q6H PRN PO .PAIN 1-3 OR TEMP; Start 01/11/19 at 13:00 Albuterol (Proventil 0.083% (Neb)) 2.5 mg Q6 PRN HHN shortness of breath; Start 01/11/19 at 13:00 Spironolactone (Aldactone) 50 mg DAILY PO Last administered on 01/21/19at 08:40; Admin Dose 50 MG; Start 01/12/19 at 09:00 Metoprolol Succinate (Toprol Xl) 50 mg DAILY PO Last administered on 01/21/19 08:40; Admin Dose 50 MG; Start 01/12/19 at 09:00 Lorazepam (Ativan) 0.5 mg Q6H PRN IV ANXIETY Last administered on 01/21/19 0 7:40; Admin Dose 0.5 MG; Start 01/11/19 at 23:00 Clonidine (Catapres) 0.1 mg Q6H PRN PO systolic BP > 160 Last administered on 01/12/19 21:31; Admin Dose 0.1 MG; Start 01/12/19 at 21:00 Levothyroxine Sodium (Synthroid) 225 mcg DAILY@06 PO Last administered on 01/21/19 05:32; Admin Dose 225 MCG; Start 01/13/19 at 06:00 Allopurinol (Zyloprim) 100 mg DAILY PO Last administered on 01/21/19 08:40; Ad min Dose 100 MG; Start 01/13/19 at 09:00 Ascorbic Acid (Vitamin C) 500 mg DAILY PO Last administered on 01/21/19 08:41; Admin Dose 500 MG; Start 01/13/19 at 09:00 Docusate Sodium (Colace) 200 mg QHS PO Last administered on 01/20/19 21:18; Admin Dose 200 MG; Start 01/13/19 at 21:00 Epoetin Ghulam-epbx (RETACRIT(non-esrd)) 10,000 unit Q48H SC Last administered on 01/17/19 16:54; Admin Dose 10,000 UNIT; Start 01/13/19 at 18:00 Ferrous Sulfate (Ferrous Sulfate (Ec)) 325 mg DAILY PO Last administered on 01/21/19 08:40; Admin Dose 325 MG; Start 01/13/19 at 09:00 Folic Acid (Folic Acid) 1 mg DAILY PO Last administered on 01/21/19 08:39; Admin Dose 1 MG; Start 01/13/19 at 09:00 Gabapentin (Neurontin) 100 mg TID PO Last administered on 01/21/19 12:43; Admin Dose 100 MG; Start 01/13/19 at 09:00 Lactulose (Enulose) 20 gm BID PO Last administered on 01/20/19 18:20; Admin Dose 20 GM; Start 01/13/19 at 09:00 Lorazepam (Ativan) 1 mg BID PRN PO ANXIETY Last administered on 01/14/19 20:36; Admin Dose 1 MG; Start 01/13/19 at 06:30 Rifaximin (Xifaxan) 550 mg BID PO Last administered on 01/21/19 08:39; Admin Dose 550 MG; Start 01/13/19 at 09:00 Sodium Bicarbonate (Sodium Bicarbonate Tab) 325 mg TID PO Last administered on 01/21/19 12:43; Admin Dose 325 MG; Start 01/13/19 at 09:00 Tamsulosin HCl (Flomax) 0.4 mg HS PO Last administered on 01/20/19 21:18; Admin Dose 0.4 MG; Start 01/13/19 at 21:00 Thiamine HCl (Vitamin B1) 100 mg DAILY PO Last administered on 01/21/19 08:39; Admin Dose 100 MG; Start 01/13/19 at 09:00 Arformoterol Tartrate (Brovana (Neb)) 2 ml BID RESP THERAPY INH Last administered on 01/21/19 08:12; Admin Dose 2 ML; Start 01/13/19 at 09:00 Budesonide (Pulmicort (Neb)) 0.5 mg Q12H RESP THERAPY INH Last administered on 01/21/19 08:14; Admin Dose 0.5 MG; Start 01/13/19 at 09:00 Dorzolamide/ Timolol (Cosopt Pf Eye Drops) 1 drop BID BOTH EYES Last administered on 01/18/19 09:07; Admin Dose 1 DROP; Start 01/13/19 at 11:30 Nicotine (Nicoderm 21 Mg/ 24hr) 1 patch DAILY TRANSDERM Last administered on 01/21/19 08:41; Admin Dose 1 PATCH; Start 01/14/19 at 09:00 Famotidine (Pepcid) 20 mg Q12 PO Last administered on 01/21/19 08:40; Admin Dose 20 MG; Start 01/13/19 at 21:00 Amlodipine Besylate (Norvasc) 5 mg DAILY PO Last administered on 01/21/19 08:41; Admin Dose 5 MG; Start 01/15/19 at 09:00 Hydromorphone HCl (Dilaudid) 1.5 mg Q4H PRN IV SEVERE PAIN LEVEL 7-10 Last administered on 01/21/19at 12:38; Admin Dose 1.5 MG; Start 01/15/19 at 05:30 Doxycycline Hyclate (Vibramycin) 100 mg 0800,2000 PO Last administered on 01/21/19 08:39; Admin Dose 100 MG; Start 01/15/19 at 20:00 Furosemide (Lasix) 20 mg DAILY PO Last administered on 01/21/19at 08:39; Admin Dose 20 MG; Start 01/16/19 at 09:00 Buspirone HCl (Buspar) 10 mg BID PO Last administered on 01/21/19 08:40; Admin Dose 10 MG; Start 01/16/19 at 12:30 Meropenem/Sodium Chloride 50 ml @ 100 mls/hr Q12 IVPB Last administered on 01/21/19at 08:50; Admin Dose 100 MLS/HR; Start 01/18/19 at 14:30 Acetaminophen/ Hydrocodone Bitart ([place] (10/325)) 2 tab Q4H PRN PO MODERATE PAIN LEVEL 4-6 Last administered on 01/21/19at 14:25; Admin Dose 2 TAB; Start 01/20/19 at 18:30 DUSTY CANTU Jan 21, 2019 15:48
--- NOTE | 2019-01-21 17:30 | CONS ---
Assessment/Plan Assessment/Plan Assessment/Plan (Daily) Hospital Course (Demo Recall) 63 yo male Interval hx: No acute events. 1. Microcytic hypochromic anemia, most probably related to iron deficiency. -anemia work up from previous visit last week noted. NEG FOB -EGD done April 2018 showed duodenal ulcer and gastritis -hgb stable 2. 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 -US on 01/07 did not ascites 3. Nicotine dependence 4. Congestive heart failure. -EF of 60% 5. Chronic obstructive pulmonary disease. 6. Renal failure. PLAN: CEA wnl Pain management Continue pepcid, lasix and aldactone Still would like to hold off on colonoscopy Consultation Date/Type/Reason Admit Date/Time Jan 11, 2019 at 09:53 Initial Consult Date 01/12/19 Requesting Provider: KOKO MARLOW MD Date/Time of Note DATE: 01/21/19 TIME: 17:30 24 HR Interval Summary Constitutional: improved Exam/Review of Systems Exam Vitals Vital Signs Date Temp Pulse Resp B/P (MAP) Pulse Ox O2 O2 Flow FiO2 Time Delivery Rate 01/21/19 98.0 111 20 166/77 94 14:00 (106) 01/21/19 21 08:14 01/17/19 Room Air 14:14 Intake and Output 01/20/19 01/20/19 01/21/19 1515:00 23:00 07:00 IntakeIntake Total 850 ml 50 ml 250 ml OutputOutput Total 1000 ml 350 ml 550 ml BalanceBalance -150 ml -300 ml -300 ml Constitutional: alert, oriented, well developed Psych: no complaints, nl mood/affect Head: normocephalic, atraumatic Eyes: nl conjunctiva, EOMI, nl lids, nl sclera, PERRL ENMT: nl external ears & nose, nl lips & teeth, nl nasal mucosa & septum Neck: supple, non-tender Respiratory: clear to auscultation, normal air movement Cardiovascular: regular rate and rhythm, nl pulses Gastrointestinal: soft, nl liver, spleen, non-tender Musculoskeletal: nl extremities to inspection, nl gait and stance Extremities: normal pulses Neurological: [employer] II-XII intact, nl mental status, nl speech, nl strength Skin: nl turgor; No rash or lesions Lymph: nl lymph nodes Results Result Diagram: 01/21/19 0821 01/21/19 0821 Results 24hrs Laboratory Tests Test 01/21/19 08:21 White Blood Count 19.3 H Red Blood Count 4.79 Hemoglobin 10.0 L Hematocrit 36.7 L Mean Corpuscular Volume 76.6 L Mean Corpuscular Hemoglobin 20.9 L Mean Corpuscular Hemoglobin Concent 27.2 L Red Cell Distribution Width 24.0 H Platelet Count 240 Mean Platelet Volume Immature Granulocytes % 6.500 H Neutrophils % Segmented Neutrophils % (Manual) 68 Band Neutrophils % (Manual) 3 Lymphocytes % Lymphocytes % (Manual) 6 L Reactive Lymphocytes % (Manual) 1 H Monocytes % Monocytes % (Manual) 17 H Eosinophils % Eosinophils % (Manual) 1 Basophils % Basophils % (Manual) 1 Myelocytes % (Manual) 3 H Nucleated Red Blood Cells % 0.0 Immature Granulocytes # 1.250 H Neutrophils # Neutrophils # (Manual) 13.2 H Band Neutrophils # 0.5 Lymphocytes (Manual) 1.1 Lymphocytes # Reactive Lymphocytes # 0.1 H Monocytes # Monocytes # (Manual) 3.2 H Eosinophils # Basophils # Basophils # (Manual) 0.1 H Myelocytes # 0.5 H Nucleated Red Blood Cells # Platelet Estimate NORMAL Giant Platelets 8 H Polychromasia 3+ Hypochromasia 1+ Poikilocytosis 1+ Anisocytosis 1+ Microcytosis 1+ Spherocytes 1+ Sodium Level 141 Potassium Level 5.3 H Chloride Level 110 Carbon Dioxide Level 20 L Anion Gap 11 Blood Urea Nitrogen 33 H Creatinine 1.41 H Est Glomerular Filtrat Rate mL/min 51 L Glucose Level 91 Calcium Level 9.1 Medications Medication Current Medications IV Flush (NS 3 ml) 3 ml PER PROTOCOL IV ; Start 01/11/19 at 13:00 Ondansetron HCl (Zofran Inj) 4 mg Q6H PRN IV NAUSEA/VOMITING; Start 01/11/19 at 13:00 Acetaminophen (Tylenol Tab) 650 mg Q6H PRN PO .PAIN 1-3 OR TEMP; Start 01/11/19 at 13:00 Albuterol (Proventil 0.083% (Neb)) 2.5 mg Q6 PRN HHN shortness of breath; Start 01/11/19 at 13:00 Spironolactone (Aldactone) 50 mg DAILY PO Last administered on 01/21/19at 08:40; Admin Dose 50 MG; Start 01/12/19 at 09:00 Metoprolol Succinate (Toprol Xl) 50 mg DAILY PO Last administered on 01/21/19 08:40; Admin Dose 50 MG; Start 01/12/19 at 09:00 Lorazepam (Ativan) 0.5 mg Q6H PRN IV ANXIETY Last administered on 01/21/19 16:34; Admin Dose 0.5 MG; Start 01/11/19 at 23:00 Clonidine (Catapres) 0.1 mg Q6H PRN PO systolic BP > 160 Last administered on 01/12/19 21:31; Admin Dose 0.1 MG; Start 01/12/19 at 21:00 Levothyroxine Sodium (Synthroid) 225 mcg DAILY@06 PO Last administered on 01/21/19 05:32; Admin Dose 225 MCG; Start 01/13/19 at 06:00 Allopurinol (Zyloprim) 100 mg DAILY PO Last administered on 01/21/19 08:40; Admin Dose 100 MG; Start 01/13/19 at 09:00 Ascorbic Acid (Vitamin C) 500 mg DAILY PO Last administered on 01/21/19 08:41; Admin Dose 500 MG; Start 01/13/19 at 09:00 Docusate Sodium (Colace) 200 mg QHS PO Last administered on 01/20/19 21:18; Admin Dose 200 MG; Start 01/13/19 at 21:00 Epoetin Ghulam-epbx (RETACRIT(non-esrd)) 10,000 unit Q48H SC Last administered on 01/17/19 16:54; Admin Dose 10,000 UNIT; Start 01/13/19 at 18:00 Ferrous Sulfate (Ferrous Sulfate (Ec)) 325 mg DAILY PO Last administered on 01/21/19 08:40; Admin Dose 325 MG; Start 01/13/19 at 09:00 Folic Acid (Folic Acid) 1 mg DAILY PO Last administered on 01/21/19 08:39; Admin Dose 1 MG; Start 01/13/19 at 09:00 Gabapentin (Neurontin) 100 mg TID PO Last administered on 01/21/19 12:43; Admin Dose 100 MG; Start 01/13/19 at 09:00 Lactulose (Enulose) 20 gm BID PO Last administered on 01/20/19 18:20; Admin Dose 20 GM; Start 01/13/19 at 09:00 Lorazepam (Ativan) 1 mg BID PRN PO ANXIETY Last administered on 01/14/19 20:36; Admin Dose 1 MG; Start 01/13/19 at 06:30 Rifaximin (Xifaxan) 550 mg BID PO Last administered on 01/21/19 08:39; Admin Dose 550 MG; Start 01/13/19 at 09:00 Sodium Bicarbonate (Sodium Bicarbonate Tab) 325 mg TID PO Last administered on 01/21/19 12:43; Admin Dose 325 MG; Start 01/13/19 at 09:00 Tamsulosin HCl (Flomax) 0.4 mg HS PO Last administered on 01/20/19 21:18; Admin Dose 0.4 MG; Start 01/13/19 at 21:00 Thiamine HCl (Vitamin B1) 100 mg DAILY PO Last administered on 01/21/19 08:39; Admin Dose 100 MG; Start 01/13/19 at 09:00 Arformoterol Tartrate (Brovana (Neb)) 2 ml BID RESP THERAPY INH Last administered on 01/21/19 08:12; Admin Dose 2 ML; Start 01/13/19 at 09:00 Budesonide (Pulmicort (Neb)) 0.5 mg Q12H RESP THERAPY INH Last administered on 01/21/19 08:14; Admin Dose 0.5 MG; Start 01/13/19 at 09:00 Dorzolamide/ Timolol (Cosopt Pf Eye Drops) 1 drop BID BOTH EYES Last administered on 01/18/19 09:07; Admin Dose 1 DROP; Start 01/13/19 at 11:30 Nicotine (Nicoderm 21 Mg/ 24hr) 1 patch DAILY TRANSDERM Last administered on 08:41; Admin Dose 1 PATCH; Start 01/14/19 at 09:00 Famotidine (Pepcid) 20 mg Q12 PO Last administered on 01/21/19 08:40; Admin Dose 20 MG; Start 01/13/19 at 21:00 Hydromorphone HCl (Dilaudid) 1.5 mg Q4H PRN IV SEVERE PAIN LEVEL 7-10 Last administered on 01/21/19 12:38; Admin Dose 1.5 MG; Start 01/15/19 at 05:30 Doxycycline Hyclate (Vibramycin) 100 mg 08,1999 PO Last administered on at 08:39; Admin Dose 100 MG; Start 01/15/19 at 20:00 Furosemide (Lasix) 20 mg DAILY PO Last administered on 01/21/19 08:39; Admin Dose 20 MG; Start 01/16/19 at 09:00 Buspirone HCl (Buspar) 10 mg BID PO Last administered on 01/21/19at 08:40; Admin Dose 10 MG; Start 01/16/19 at 12:30 Meropenem/Sodium Chloride 50 ml @ 100 mls/hr Q12 IVPB Last administered on 01/21/19at 08:50; Admin Dose 100 MLS/HR; Start 01/18/19 at 14:30 Acetaminophen/ Hydrocodone Bitart ([place] (10/325)) 2 tab Q4H PRN PO MODERATE PAIN LEVEL 4-6 Last administered on 01/21/19at 14:25; Admin Dose 2 TAB; Start 01/20/19 at 18:30 Amlodipine Besylate (Norvasc) 5 mg BID PO ; Start 01/21/19 at 21:00 CHLOÉ TORRE MD Jan 21, 2019 17:30
[2019-01-21 18:00] VITALS: BP 152/76; PULSE 96
[2019-01-21] MEDS: EPOETIN ALFA-EPBX (NON-ESRD 10,000 UNIT/ML VIAL SC SCH (18:54)
[2019-01-21 19:40] VITALS: BP 160/74; PULSE 75; RESP 20
[2019-01-21] MEDS: TAMSULOSIN (SR) 0.4 MG CAP PO SCH (21:47)
[2019-01-21] MEDS: DOCUSATE SODIUM 100 MG CAP PO SCH (21:47)
[2019-01-22] MEDS: HYDROCODONE/APAP (10/325) TAB PO PRN ×5 (01:06→21:43)
[2019-01-22 02:07] VITALS: BP 167/77; PULSE 87; RESP 20
[2019-01-22] MEDS: HYDROmorphONE 1 MG/ML SYG IV PRN ×5 (03:33→23:56)
[2019-01-22] MEDS: LEVOTHYROXINE 75 MCG TAB PO SCH (05:50)
[2019-01-22] MEDS: LORAZEPAM 2 MG INJ IV PRN ×2 (06:42→14:07)
[2019-01-22 08:00] VITALS: BP 143/65; PULSE 86; RESP 20
[2019-01-22] MEDS: LACTULOSE 30ML CUP PO SCH ×2 (08:38→20:04)
[2019-01-22] MEDS: MEROPENEM 500MG/50 ML (PMX) 50 ML IVPB SCH (08:38)
[2019-01-22] MEDS: BUSPIRONE 10 MG TAB PO SCH ×2 (08:39→20:10)
[2019-01-22] MEDS: ALLOPURINOL 100 MG TAB PO SCH (08:39)
[2019-01-22] MEDS: FERROUS SULFATE (EC) 325 MG TAB PO SCH (08:39)
[2019-01-22] MEDS: FUROSEMIDE 20 MG TAB PO SCH (08:39)
[2019-01-22] MEDS: AMLODIPINE 5 MG TAB PO SCH ×2 (08:39→20:05)
[2019-01-22] MEDS: THIAMINE 100 MG TAB PO SCH (08:39)
[2019-01-22] MEDS: ASCORBIC ACID 500 MG TAB PO SCH (08:39)
[2019-01-22] MEDS: GABAPENTIN 100 MG CAP PO SCH ×4 (08:39→20:10)
[2019-01-22] MEDS: SPIRONOLACTONE 50 MG TAB PO SCH (08:39)
[2019-01-22] MEDS: NA BICARBONATE 650 MG TAB PO SCH ×3 (08:40→20:04)
[2019-01-22] MEDS: METOPROLOL (XL) 50 MG TAB PO SCH (08:40)
[2019-01-22] MEDS: FOLIC ACID 1 MG TAB PO SCH (08:40)
[2019-01-22] MEDS: RIFAXIMIN 550 MG TAB PO SCH ×2 (08:40→20:11)
[2019-01-22] MEDS: DOXYCYCLINE 100 MG TAB PO SCH ×2 (08:40→20:05)
[2019-01-22] MEDS: FAMOTIDINE 20 MG TAB PO SCH ×2 (08:40→20:05)
[2019-01-22] MEDS: NICOTINE (21 MG/24 HR) PATCH TRANSDERM SCH (08:41)
[2019-01-22] MEDS: DORZOLAMIDE/TIMOLOL/PF 0.2 ML DROPERETTE BOTH EYES SCH ×3 (08:41→20:07)
[2019-01-22] MEDS: BUDESONIDE (NEB) 0.5MG/2ML AMP INH SCH ×2 (08:56→21:09)
[2019-01-22] MEDS: ARFORMOTEROL TARTRATE 15MCG/2 ML AMP INH SCH ×2 (09:00→21:09)
[2019-01-22] MEDS ORDERED: NA POLYST SULFON 15 GM/60 ML BTL PO ONE ×2 (10:30)
--- NOTE | 2019-01-22 10:48 | PN ---
Date/Time of Note Date/Time of Note DATE: 01/22/19 TIME: 10:44 Assessment/Plan VTE Prophylaxis Risk score (from Ns)>0 risk: 5 SCD applied (from Ns): Yes Pharmacological prophylaxis: NA/contraindicated Pharm contraindication: thrombocytopenia Lines/Catheters IV Catheter Type (from Nrsg): Saline Lock Urinary Cath still in place: No Assessment/Plan Hospital Course Patient was persistent leukocytosis, no fever. Patient complaints of generalized pain, asking for increased dose of Dilaudid, pain management discussed with Dr. Lara yesterday continue, current pain management. Patient refusing Neurontin. Potassium is 5.6 , Kayexalate 30 g x1 now. BMP tomorrow. Discussed with SHABANA Garnett. Assessment/Plan -Shortness of breath, rule out acute coronary syndrome, cardiac enzymes are negative x3. -Acute on chronic diastolic congestive heart failure. Continue Lasix. Dr. Foley is following in cardiology consultation. -COPD exacerbation, continue bronchodilators, steroids, and oxygen supplementation. -Anemia, Dr. Mayes is following in gastroenterology consultation. -Alcoholic liver cirrhosis -Acute kidney injury on chronic kidney disease. Dr. Leung is following in nephrology consultation. -Bilateral lower extremities chronic venous stasis -Left foot plantar ulcer. Dr. Younger is following in podiatry consultation. -Obesity -Nicotine dependence, continue nicotine patch, cessation is strongly advised. -Ongoing alcohol use, cessation is strongly advised. -Poor medical compliance Further recommendations based on clinical course. Plan of care discussed with Dr. Lara. Result Diagram: 01/22/19 0601 01/22/19 0601 Results 24hrs Laboratory Tests Test 01/22/19 06:01 White Blood Count 18.3 H Red Blood Count 4.87 Hemoglobin 10.3 L Hematocrit 37.2 L Mean Corpuscular Volume 76.4 L Mean Corpuscular Hemoglobin 21.1 L Mean Corpuscular Hemoglobin Concent 27.7 L Red Cell Distribution Width 23.5 H Platelet Count 257 Mean Platelet Volume Immature Granulocytes % 6.000 H Neutrophils % Segmented Neutrophils % (Manual) 63 Band Neutrophils % (Manual) 3 Lymphocytes % Lymphocytes % (Manual) 5 L Reactive Lymphocytes % (Manual) 3 H Monocytes % Monocytes % (Manual) 17 H Eosinophils % Eosinophils % (Manual) 2 Basophils % Basophils % (Manual) 3 H Metamyelocytes % (manual) 1 H Myelocytes % (Manual) 1 H Promyelocytes % (Manual) 2 H Nucleated Red Blood Cells % 0.0 Immature Granulocytes # 1.100 H Neutrophils # Neutrophils # (Manual) 11.6 H Band Neutrophils # 0.5 Lymphocytes (Manual) 0.9 Lymphocytes # Reactive Lymphocytes # 0.5 H Monocytes # Monocytes # (Manual) 3.1 H Eosinophils # Basophils # Basophils # (Manual) 0.5 H Metamyelocytes # 0.1 H Myelocytes # 0.1 H Promyelocytes # 0.3 H Nucleated Red Blood Cells # Platelet Estimate NORMAL Giant Platelets 10 H Polychromasia 2+ Hypochromasia 1+ Poikilocytosis 2+ Anisocytosis 2+ Microcytosis 1+ Sodium Level 143 Potassium Level 5.6 H Chloride Level 109 Carbon Dioxide Level 21 Anion Gap 13 Blood Urea Nitrogen 30 H Creatinine 1.40 H Est Glomerular Filtrat Rate mL/min 52 L Glucose Level 69 #L Calcium Level 9.0 Exam/Review of Systems Exam Vitals Vital Signs Date Temp Pulse Resp B/P (MAP) Pulse Ox O2 O2 Flow FiO2 Time Delivery Rate 01/22/19 95 16 96 21 08:59 01/22/19 98.8 143/65 08:00 (91) Intake and Output 01/21/19 01/21/19 01/22/19 1515:00 23:00 07:00 IntakeIntake Total 500 ml 950 ml OutputOutput Total 700 ml 1450 ml BalanceBalance -200 ml -500 ml Exam Constitutional: alert, oriented Respiratory: diminished breath sounds, wheezing Cardiovascular: regular rate and rhythm Gastrointestinal: soft, distended Extremities: normal pulses, edema, other (Bilateral lower extremities erythema) Neurological: nl mental status Skin: other (Left foot plantar ulcer, dry) Results Results 24hrs Laboratory Tests Test 01/22/19 06:01 White Blood Count 18.3 H Red Blood Count 4.87 Hemoglobin 10.3 L Hematocrit 37.2 L Mean Corpuscular Volume 76.4 L Mean Corpuscular Hemoglobin 21.1 L Mean Corpuscular Hemoglobin Concent 27.7 L Red Cell Distribution Width 23.5 H Platelet Count 257 Mean Platelet Volume Immature Granulocytes % 6.000 H Neutrophils % Segmented Neutrophils % (Manual) 63 Band Neutrophils % (Manual) 3 Lymphocytes % Lymphocytes % (Manual) 5 L Reactive Lymphocytes % (Manual) 3 H Monocytes % Monocytes % (Manual) 17 H Eosinophils % Eosinophils % (Manual) 2 Basophils % Basophils % (Manual) 3 H Metamyelocytes % (manual) 1 H Myelocytes % (Manual) 1 H Promyelocytes % (Manual) 2 H Nucleated Red Blood Cells % 0.0 Immature Granulocytes # 1.100 H Neutrophils # Neutrophils # (Manual) 11.6 H Band Neutrophils # 0.5 Lymphocytes (Manual) 0.9 Lymphocytes # Reactive Lymphocytes # 0.5 H Monocytes # Monocytes # (Manual) 3.1 H Eosinophils # Basophils # Basophils # (Manual) 0.5 H Metamyelocytes # 0.1 H Myelocytes # 0.1 H Promyelocytes # 0.3 H Nucleated Red Blood Cells # Platelet Estimate NORMAL Giant Platelets 10 H Polychromasia 2+ Hypochromasia 1+ Poikilocytosis 2+ Anisocytosis 2+ Microcytosis 1+ Sodium Level 143 Potassium Level 5.6 H Chloride Level 109 Carbon Dioxide Level 21 Anion Gap 13 Blood Urea Nitrogen 30 H Creatinine 1.40 H Est Glomerular Filtrat Rate mL/min 52 L Glucose Level 69 #L Calcium Level 9.0 Medications Medication Current Medications IV Flush (NS 3 ml) 3 ml PER PROTOCOL IV ; Start 01/11/19 at 13:00 Ondansetron HCl (Zofran Inj) 4 mg Q6H PRN IV NAUSEA/VOMITING; Start 01/11/19 at 13:00 Acetaminophen (Tylenol Tab) 650 mg Q6H PRN PO .PAIN 1-3 OR TEMP; Start 01/11/19 at 13:00 Albuterol (Proventil 0.083% (Neb)) 2.5 mg Q6 PRN HHN shortness of breath; Start 01/11/19 at 13:00 Spironolactone (Aldactone) 50 mg DAILY PO Last administered on 01/22/19at 08:39; Admin Dose 50 MG; Start 01/12/19 at 09:00 Metoprolol Succinate (Toprol Xl) 50 mg DAILY PO Last administered on 01/22/19at 08:40; Admin Dose 50 MG; Start 01/12/19 at 09:00 Lorazepam (Ativan) 0.5 mg Q6H PRN IV ANXIETY Last administered on 01/22/19at 06:42; Admin Dose 0.5 MG; Start 01/11/19 at 23:00 Clonidine (Catapres) 0.1 mg Q6H PRN PO systolic BP > 160 Last administered on 01/12/19 21:31; Admin Dose 0.1 MG; Start 01/12/19 at 21:00 Levothyroxine Sodium (Synthroid) 225 mcg DAILY@06 PO Last administered on 01/22/19 05:50; Admin Dose 225 MCG; Start 01/13/19 at 06:00 Allopurinol (Zyloprim) 100 mg DAILY PO Last administered on 01/22/19 08:39; Admin Dose 100 MG; Start 01/13/19 at 09:00 Ascorbic Acid (Vitamin C) 500 mg DAILY PO Last administered on 01/22/19 08:39; Admin Dose 500 MG; Start 01/13/19 at 09:00 Docusate Sodium (Colace) 200 mg QHS PO Last administered on 01/21/19 21:47; Admin Dose 200 MG; Start 01/13/19 at 21:00 Epoetin Ghulam-epbx (RETACRIT(non-esrd)) 10,000 unit Q48H SC Last administered on 01/21/19 18:54; Admin Dose 10,000 UNIT; Start 01/13/19 at 18:00 Ferrous Sulfate (Ferrous Sulfate (Ec)) 325 mg DAILY PO Last administered on 01/22/19 08:39; Admin Dose 325 MG; Start 01/13/19 at 09:00 Folic Acid (Folic Acid) 1 mg DAILY PO Last administered on 01/22/19 08:40; Admin Dose 1 MG; Start 01/13/19 at 09:00 Gabapentin (Neurontin) 100 mg TID PO Last administered on 01/21/19 21:46; Admin Dose 100 MG; Start 01/13/19 at 09:00 Lactulose (Enulose) 20 gm BID PO Last administered on 01/22/19 08:38; Admin Dose 20 GM; Start 01/13/19 at 09:00 Lorazepam (Ativan) 1 mg BID PRN PO ANXIETY Last administered on 01/14/19 20:36; Admin Dose 1 MG; Start 01/13/19 at 06:30 Rifaximin (Xifaxan) 550 mg BID PO Last administered on 01/22/19 08:40; Admin Dose 550 MG; Start 01/13/19 at 09:00 Sodium Bicarbonate (Sodium Bicarbonate Tab) 325 mg TID PO Last administered on 01/22/19 08:40; Admin Dose 325 MG; Start 01/13/19 at 09:00 Tamsulosin HCl (Flomax) 0.4 mg HS PO Last administered on 01/21/19 21:47; Admin Dose 0.4 MG; Start 01/13/19 at 21:00 Thiamine HCl (Vitamin B1) 100 mg DAILY PO Last administered on 01/22/19 08:39; Admin Dose 100 MG; Start 01/13/19 at 09:00 Arformoterol Tartrate (Brovana (Neb)) 2 ml BID RESP THERAPY INH Last administered on 01/21/19 20:28; Admin Dose 2 ML; Start 01/13/19 at 09:00 Budesonide (Pulmicort (Neb)) 0.5 mg Q12H RESP THERAPY INH Last administered on 01/22/19 08:56; Admin Dose 0.5 MG; Start 01/13/19 at 09:00 Dorzolamide/ Timolol (Cosopt Pf Eye Drops) 1 drop BID BOTH EYES Last a dministered on 01/18/19 09:07; Admin Dose 1 DROP; Start 01/13/19 at 11:30 Nicotine (Nicoderm 21 Mg/ 24hr) 1 patch DAILY TRANSDERM Last administered on 01/22/19 08:41; Admin Dose 1 PATCH; Start 01/14/19 at 09:00 Famotidine (Pepcid) 20 mg Q12 PO Last administered on 01/22/19 08:40; Admin Dose 20 MG; Start 01/13/19 at 21:00 Hydromorphone HCl (Dilaudid) 1.5 mg Q4H PRN IV SEVERE PAIN LEVEL 7-10 Last administered on 01/22/19 07:42; Admin Dose 1.5 MG; Start 01/15/19 at 05:30 Doxycycline Hyclate (Vibramycin) 100 mg 0800,2000 PO Last administered on 01/22/19 08:40; Admin Dose 100 MG; Start 01/15/19 at 20:00 Furosemide (Lasix) 20 mg DAILY PO Last administered on 01/22/19 08:39; Admin Dose 20 MG; Start 01/16/19 at 09:00 Buspirone HCl (Buspar) 10 mg BID PO Last administered on 01/22/19 08:39; Admin Dose 10 MG; Start 01/16/19 at 12:30 Meropenem/Sodium Chloride 50 ml @ 100 mls/hr Q12 IVPB Last administered on 01/22/19 08:38; Admin Dose 100 MLS/HR; Start 01/18/19 at 14:30 Acetaminophen/ Hydrocodone Bitart ([place] (10325)) 2 tab Q4H PRN PO MODERATE PAIN LEVEL 4-6 Last administered on 01/22/19at 05:50; Admin Dose 2 TAB; Start 01/20/19 at 18:30 Amlodipine Besylate (Norvasc) 5 mg BID PO Last administered on 01/22/19 08:39; Admin Dose 5 MG; Start 01/21/19 at 21:00 Sodium Polystyrene Sulfonate (Kayexelate 15 Gm Kit (Powder+Sorbitol)) 30 gm ONCE ONCE PO ; Start 01/22/19 at 11:00; Stop 01/22/19 at 11:01 MILLICENT GOVEA Jan 22, 2019 10:48
[2019-01-22] MEDS ORDERED: SODIUM POLYSTYRENE 15 GM KIT (POWDER + SORBITOL) PO ONE (11:00)
--- NOTE | 2019-01-22 11:56 | CONS ---
Assessment/Plan Assessment/Plan Hospital Course (Demo Recall) No acute changes per report, no fevers, looks comfortable Abdominal ultrasound revealed no ascites Antimicrobials: Merrem doxycycline Physical examination: This is a wasted well-developed chronically ill-appearing elderly man who is in no distress. Head atraumatic normocephalic sclera rachel cteric. Neck is supple chest rise symmetrical breath sounds diminished bases. Heart: S1-S2. Abdomen soft bowel sounds present. Extremities without BLE edema, mild erythema, no cyanosis. Assessment: 1. Systemic inflammatory response syndrome with ongoing leukocytosis, clinically stable 2. S/p COPD exacerbation 3. Alcohol abuse 4. Bilateral lower extremities acute on chronic cellulitis/chronic venous stasis 5. Cirrhosis with recurrent ascites 6. Chronic kidney disease 7. CHF 8. Noncompliance Plan: Clinically unchanged, continue present, f/u GI/renal rec-s Consultation Date/Type/Reason Admit Date/Time Jan 11, 2019 at 09:53 Initial Consult Date Type of Consult id Requesting Provider: KOKO MARLOW MD Date/Time of Note DATE: 01/22/19 TIME: 11:55 Exam/Review of Systems Exam Vitals Vital Signs Date Temp Pulse Resp B/P (MAP) Pulse Ox O2 O2 Flow FiO2 Time Delivery Rate 01/22/19 95 16 96 21 08:59 01/22/19 98.8 143/65 08:00 (91) Intake and Output 01/21/19 01/21/19 01/22/19 1515:00 23:00 07:00 IntakeIntake Total 500 ml 950 ml OutputOutput Total 700 ml 1450 ml BalanceBalance -200 ml -500 ml Results Result Diagram: 01/22/19 0601 01/22/19 0601 Results 24hrs Laboratory Tests Test 01/22/19 06:01 White Blood Count 18.3 H Red Blood Count 4.87 Hemoglobin 10.3 L Hematocrit 37.2 L Mean Corpuscular Volume 76.4 L Mean Corpuscular Hemoglobin 21.1 L Mean Corpuscular Hemoglobin Concent 27.7 L Red Cell Distribution Width 23.5 H Platelet Count 257 Mean Platelet Volume Immature Granulocytes % 6.000 H Neutrophils % Segmented Neutrophils % (Manual) 63 Band Neutrophils % (Manual) 3 Lymphocytes % Lymphocytes % (Manual) 5 L Reactive Lymphocytes % (Manual) 3 H Monocytes % Monocytes % (Manual) 17 H Eosinophils % Eosinophils % (Manual) 2 Basophils % Basophils % (Manual) 3 H Metamyelocytes % (manual) 1 H Myelocytes % (Manual) 1 H Promyelocytes % (Manual) 2 H Nucleated Red Blood Cells % 0.0 Immature Granulocytes # 1.100 H Neutrophils # Neutrophils # (Manual) 11.6 H Band Neutrophils # 0.5 Lymphocytes (Manual) 0.9 Lymphocytes # Reactive Lymphocytes # 0.5 H Monocytes # Monocytes # (Manual) 3.1 H Eosinophils # Basophils # Basophils # (Manual) 0.5 H Metamyelocytes # 0.1 H Myelocytes # 0.1 H Promyelocytes # 0.3 H Nucleated Red Blood Cells # Platelet Estimate NORMAL Giant Platelets 10 H Polychromasia 2+ Hypochromasia 1+ Poikilocytosis 2+ Anisocytosis 2+ Microcytosis 1+ Sodium Level 143 Potassium Level 5.6 H Chloride Level 109 Carbon Dioxide Level 21 Anion Gap 13 Blood Urea Nitrogen 30 H Creatinine 1.40 H Est Glomerular Filtrat Rate mL/min 52 L Glucose Level 69 #L Calcium Level 9.0 Medications Medication Current Medications IV Flush (NS 3 ml) 3 ml PER PROTOCOL IV ; Start 01/11/19 at 13:00 Ondansetron HCl (Zofran Inj) 4 mg Q6H PRN IV NAUSEA/VOMITING; Start 01/11/19 at 13:00 Acetaminophen (Tylenol Tab) 650 mg Q6H PRN PO .PAIN 1-3 OR TEMP; Start 01/11/19 at 13:00 Albuterol (Proventil 0.083% (Neb)) 2.5 mg Q6 PRN HHN shortness of breath; Start 01/11/19 at 13:00 Spironolactone (Aldactone) 50 mg DAILY PO Last administered on 01/22/19at 08:39; Admin Dose 50 MG; Start 01/12/19 at 09:00 Metoprolol Succinate (Toprol Xl) 50 mg DAILY PO Last administered on 01/22/19at 08:40; Admin Dose 50 MG; Start 01/12/19 at 09:00 Lorazepam (Ativan) 0.5 mg Q6H PRN IV ANXIETY Last administered on 01/22/19at 06:42; Admin Dose 0.5 MG; Start 01/11/19 at 23:00 Clonidine (Catapres) 0.1 mg Q6H PRN PO systolic BP > 160 Last administered on 01/12/19 21:31; Admin Dose 0.1 MG; Start 01/12/19 at 21:00 Levothyroxine Sodium (Synthroid) 225 mcg DAILY@06 PO Last administered on 01/22/19 05:50; Admin Dose 225 MCG; Start 01/13/19 at 06:00 Allopurinol (Zyloprim) 100 mg DAILY PO Last administered on 01/22/19 08:39; Admin Dose 100 MG; Start 01/13/19 at 09:00 Ascorbic Acid (Vitamin C) 500 mg DAILY PO Last administered on 01/22/19 08:39; Admin Dose 500 MG; Start 01/13/19 at 09:00 Docusate Sodium (Colace) 200 mg QHS PO Last administered on 01/21/19 21:47; Admin Dose 200 MG; Start 01/13/19 at 21:00 Epoetin Ghulam-epbx (RETACRIT(non-esrd)) 10,000 unit Q48H SC Last administered on 01/21/19 18:54; Admin Dose 10,000 UNIT; Start 01/13/19 at 18:00 Ferrous Sulfate (Ferrous Sulfate (Ec)) 325 mg DAILY PO Last administered on 01/22/19 08:39; Admin Dose 325 MG; Start 01/13/19 at 09:00 Folic Acid (Folic Acid) 1 mg DAILY PO Last administered on 01/22/19 08:40; Admin Dose 1 MG; Start 01/13/19 at 09:00 Gabapentin (Neurontin) 100 mg TID PO Last administered on 01/21/19 21:46; Admin Dose 100 MG; Start 01/13/19 at 09:00 Lactulose (Enulose) 20 gm BID PO Last administered on 01/22/19 08:38; Admin Dose 20 GM; Start 01/13/19 at 09:00 Lorazepam (Ativan) 1 mg BID PRN PO ANXIETY Last administered on 01/14/19 20:36; Admin Dose 1 MG; Start 01/13/19 at 06:30 Rifaximin (Xifaxan) 550 mg BID PO Last administered on 01/22/19 08:40; Admin Dose 550 MG; Start 01/13/19 at 09:00 Sodium Bicarbonate (Sodium Bicarbonate Tab) 325 mg TID PO Last administered on 01/22/19 08:40; Admin Dose 325 MG; Start 01/13/19 at 09:00 Tamsulosin HCl (Flomax) 0.4 mg HS PO Last administered on 01/21/19 21:47; Admin Dose 0.4 MG; Start 01/13/19 at 21:00 Thiamine HCl (Vitamin B1) 100 mg DAILY PO Last administered on 01/22/19 08:39; Admin Dose 100 MG; Start 01/13/19 at 09:00 Arformoterol Tartrate (Brovana (Neb)) 2 ml BID RESP THERAPY INH Last administered on 01/21/19 20:28; Admin Dose 2 ML; Start 01/13/19 at 09:00 Budesonide (Pulmicort (Neb)) 0.5 mg Q12H RESP THERAPY INH Last administered on 01/22/19 08:56; Admin Dose 0.5 MG; Start 01/13/19 at 09:00 Dorzolamide/ Timolol (Cosopt Pf Eye Drops) 1 drop BID BOTH EYES Last administered on 01/18/19 09:07; Admin Dose 1 DROP; Start 01/13/19 at 11:30 Nicotine (Nicoderm 21 Mg/ 24hr) 1 patch DAILY TRANSDERM Last administered on 01/22/19 08:41; Admin Dose 1 PATCH; Start 01/14/19 at 09:00 Famotidine (Pepcid) 20 mg Q12 PO Last administered on 01/22/19 08:40; Admin Dose 20 MG; Start 01/13/19 at 21:00 Hydromorphone HCl (Dilaudid) 1.5 mg Q4H PRN IV SEVERE PAIN LEVEL 7-10 Last administered on 01/22/19 07:42; Admin Dose 1.5 MG; Start 01/15/19 at 05:30 Doxycycline Hyclate (Vibramycin) 100 mg 0800,2000 PO Last administered on 01/22/19 08:40; Admin Dose 100 MG; Start 01/15/19 at 20:00 Furosemide (Lasix) 20 mg DAILY PO Last administered on 01/22/19 08:39; Admin Dose 20 MG; Start 01/16/19 at 09:00 Buspirone HCl (Buspar) 10 mg BID PO Last administered on 01/22/19 08:39; Admin Dose 10 MG; Start 01/16/19 at 12:30 Meropenem/Sodium Chloride 50 ml @ 100 mls/hr Q12 IVPB Last administered on 01/22/19 08:38; Admin Dose 100 MLS/HR; Start 01/18/19 at 14:30 Acetaminophen/ Hydrocodone Bitart ([place] (10/325)) 2 tab Q4H PRN PO MODERATE PAIN LEVEL 4-6 Last administered on 01/22/19 10:48; Admin Dose 2 TAB; Start 01/20/19 at 18:30 Amlodipine Besylate (Norvasc) 5 mg BID PO Last administered on 01/22/19 08:39; Admin Dose 5 MG; Start 01/21/19 at 21:00 MELISSA NASH NP Jan 22, 2019 11:56
--- NOTE | 2019-01-22 11:57 | CONS ---
Assessment/Plan Assessment/Plan Assessment/Plan (Daily) - Hyperkalemia- SP Kayexalate TODAY; BMP am 1. acute on chronic renal failure due to Type II hepatorenal syndrome 2. SIRS 3. anemia of CKD 5. Decompensated Liver cirrhosis with Symptomatic ascites 6. H/O HTN 7. h/o Liver cirrhosis with ascites 8. H/o Diastolic CHF 9. Bilateral LE chronic venous stasis 10.H/o BPH on flomax Plan: Continue IV abx as per ID , renally dose all abx , monitor electorlytes and replace as needed, WBC 19.3 BUN/Cr- trended down to 30/1.40 today k- 5.6 today Continue lasix to 20mg po daily, , spironolactone 50mg po daily , Toprol Xl 50mg po daily , amlodipine 5 mg po daily on Sodium bicarbonte 325mg PO TID Flomax 0.4mg po daily for BPH will follow up Patient seen in collaboration with Dr Romario Leung. [facility] staff Consultation Date/Type/Reason Admit Date/Time Jan 11, 2019 at 09:53 Initial Consult Date 01/12/19 Type of Consult NEPHROLOGY Reason for Consultation CKD Requesting Provider: KOKO MARLOW MD Date/Time of Note DATE: 01/22/19 TIME: 11:49 24 HR Interval Summary Constitutional: requiring O2 Detailed Summary Eyes: no complaints ENT: no complaints Respiratory: no complaints Cardiovascular: no complaints Gastrointestinal: no complaints Musculoskeletal: other (generelized weakness) Skin: no complaints Neurologic: no complaints Exam/Review of Systems Exam Vitals Vital Signs Date Temp Pulse Resp B/P (MAP) Pulse Ox O2 O2 Flow FiO2 Time Delivery Rate 01/22/19 95 16 96 21 08:59 01/22/19 98.8 143/65 08:00 (91) Intake and Output 01/21/19 01/21/19 01/22/19 1515:00 23:00 07:00 IntakeIntake Total 500 ml 950 ml OutputOutput Total 700 ml 1450 ml BalanceBalance -200 ml -500 ml Constitutional: alert, well developed, obese Psych: nl mood/affect Head: normocephalic Eyes: nl lids, nl sclera ENMT: nl external ears & nose Neck: non-tender Respiratory: diminished breath sounds Cardiovascular: nl pulses, other (s1s2) Gastrointestinal: soft, non-tender Musculoskeletal: muscle weakness Extremities: normal pulses Neurological: nl speech Skin: other (chronic skin changes BLE ) Lymph: nontender Results Result Diagram: 01/22/19 0601 01/22/19 0601 Results 24hrs Laboratory Tests Test 01/22/19 06:01 White Blood Count 18.3 H Red Blood Count 4.87 Hemoglobin 10.3 L Hematocrit 37.2 L Mean Corpuscular Volume 76.4 L Mean Corpuscular Hemoglobin 21.1 L Mean Corpuscular Hemoglobin Concent 27.7 L Red Cell Distribution Width 23.5 H Platelet Count 257 Mean Platelet Volume Immature Granulocytes % 6.000 H Neutrophils % Segmented Neutrophils % (Manual) 63 Band Neutrophils % (Manual) 3 Lymphocytes % Lymphocytes % (Manual) 5 L Reactive Lymphocytes % (Manual) 3 H Monocytes % Monocytes % (Manual) 17 H Eosinophils % Eosinophils % (Manual) 2 Basophils % Basophils % (Manual) 3 H Metamyelocytes % (manual) 1 H Myelocytes % (Manual) 1 H Promyelocytes % (Manual) 2 H Nucleated Red Blood Cells % 0.0 Immature Granulocytes # 1.100 H Neutrophils # Neutrophils # (Manual) 11.6 H Band Neutrophils # 0.5 Lymphocytes (Manual) 0.9 Lymphocytes # Reactive Lymphocytes # 0.5 H Monocytes # Monocytes # (Manual) 3.1 H Eosinophils # Basophils # Basophils # (Manual) 0.5 H Metamyelocytes # 0.1 H Myelocytes # 0.1 H Promyelocytes # 0.3 H Nucleated Red Blood Cells # Platelet Estimate NORMAL Giant Platelets 10 H Polychromasia 2+ Hypochromasia 1+ Poikilocytosis 2+ Anisocytosis 2+ Microcytosis 1+ Sodium Level 143 Potassium Level 5.6 H Chloride Level 109 Carbon Dioxide Level 21 Anion Gap 13 Blood Urea Nitrogen 30 H Creatinine 1.40 H Est Glomerular Filtrat Rate mL/min 52 L Glucose Level 69 #L Calcium Level 9.0 Medications Medication Current Medications IV Flush (NS 3 ml) 3 ml PER PROTOCOL IV ; Start 01/11/19 at 13:00 Ondansetron HCl (Zofran Inj) 4 mg Q6H PRN IV NAUSEA/VOMITING; Start 01/11/19 at 13:00 Acetaminophen (Tylenol Tab) 650 mg Q6H PRN PO .PAIN 1-3 OR TEMP; Start 01/11/19 at 13:00 Albuterol (Proventil 0.083% (Neb)) 2.5 mg Q6 PRN HHN shortness of breath; Start 01/11/19 at 13:00 Spironolactone (Aldactone) 50 mg DAILY PO Last administered on 01/22/19 08:39; Admin Dose 50 MG; Start 01/12/19 at 09:00 Metoprolol Succinate (Toprol Xl) 50 mg DAILY PO Last administered on 01/22/19 08:40; Admin Dose 50 MG; Start 01/12/19 at 09:00 Lorazepam (Ativan) 0.5 mg Q6H PRN IV ANXIETY Last administered on 01/22/19 06:42; Admin Dose 0.5 MG; Start 01/11/19 at 23:00 Clonidine (Catapres) 0.1 mg Q6H PRN PO systolic BP > 160 Last administered on 01/12/19 21:31; Admin Dose 0.1 MG; Start 01/12/19 at 21:00 Levothyroxine Sodium (Synthroid) 225 mcg DAILY@06 PO Last administered on 01/22/19 05:50; Admin Dose 225 MCG; Start 01/13/19 at 06:00 Allopurinol (Zyloprim) 100 mg DAILY PO Last administered on 01/22/19 08:39; Admin Dose 100 MG; Start 01/13/19 at 09:00 Ascorbic Acid (Vitamin C) 500 mg DAILY PO Last administered on 01/22/19 08:39; Admin Dose 500 MG; Start 01/13/19 at 09:00 Docusate Sodium (Colace) 200 mg QHS PO Last administered on 01/21/19 21:47; Admin Dose 200 MG; Start 01/13/19 at 21:00 Epoetin Ghulam-epbx (RETACRIT(non-esrd)) 10,000 unit Q48H SC Last administered on 01/21/19 18:54; Admin Dose 10,000 UNIT; Start 01/13/19 at 18:00 Ferrous Sulfate (Ferrous Sulfate (Ec)) 325 mg DAILY PO Last administered on 01/22/19 08:39; Admin Dose 325 MG; Start 01/13/19 at 09:00 Folic Acid (Folic Acid) 1 mg DAILY PO Last administered on 01/22/19 08:40; Admin Dose 1 MG; Start 01/13/19 at 09:00 Gabapentin (Neurontin) 100 mg TID PO Last administered on 01/21/19 21:46; Admin Dose 100 MG; Start 01/13/19 at 09:00 Lactulose (Enulose) 20 gm BID PO Last administered on 01/22/19 08:38; Admin Dose 20 GM; Start 01/13/19 at 09:00 Lorazepam (Ativan) 1 mg BID PRN PO ANXIETY Last administered on 01/14/19 20:36; Admin Dose 1 MG; Start 01/13/19 at 06:30 Rifaximin (Xifaxan) 550 mg BID PO Last administered on 01/22/19 08:40; Admin Dose 550 MG; Start 01/13/19 at 09:00 Sodium Bicarbonate (Sodium Bicarbonate Tab) 325 mg TID PO Last administered on 01/22/19 08:40; Admin Dose 325 MG; Start 01/13/19 at 09:00 Tamsulosin HCl (Flomax) 0.4 mg HS PO Last administered on 01/21/19 21:47; Admin Dose 0.4 MG; Start 01/13/19 at 21:00 Thiamine HCl (Vitamin B1) 100 mg DAILY PO Last administered on 01/22/19 08:39; Admin Dose 100 MG; Start 01/13/19 at 09:00 Arformoterol Tartrate (Brovana (Neb)) 2 ml BID RESP THERAPY INH Last administered on 01/21/19 20:28; Admin Dose 2 ML; Start 01/13/19 at 09:00 Budesonide (Pulmicort (Neb)) 0.5 mg Q12H RESP THERAPY INH Last administered on 01/22/19 08:56; Admin Dose 0.5 MG; Start 01/13/19 at 09:00 Dorzolamide/ Timolol (Cosopt Pf Eye Drops) 1 drop BID BOTH EYES Last administered on 01/18/19 09:07; Admin Dose 1 DROP; Start 01/13/19 at 11:30 Nicotine (Nicoderm 21 Mg/ 24hr) 1 patch DAILY TRANSDERM Last administered on 01/22/19 08:41; Admin Dose 1 PATCH; Start 01/14/19 at 09:00 Famotidine (Pepcid) 20 mg Q12 PO Last administered on 01/22/19 08:40; Admin Dose 20 MG; Start 01/13/19 at 21:00 Hydromorphone HCl (Dilaudid) 1.5 mg Q4H PRN IV SEVERE PAIN LEVEL 7-10 Last administered on 01/22/19 07:42; Admin Dose 1.5 MG; Start 01/15/19 at 05:30 Doxycycline Hyclate (Vibramycin) 100 mg 0800,1999 PO Last administered on 01/22/19 08:40; Admin Dose 100 MG; Start 01/15/19 at 20:00 Furosemide (Lasix) 20 mg DAILY PO Last administered on 01/22/19 08:39; Admin Dose 20 MG; Start 01/16/19 at 09:00 Buspirone HCl (Buspar) 10 mg BID PO Last administered on 01/22/19 08:39; Admin Dose 10 MG; Start 01/16/19 at 12:30 Meropenem/Sodium Chloride 50 ml @ 100 mls/hr Q12 IVPB Last administered on 01/22/19 08:38; Admin Dose 100 MLS/HR; Start 01/18/19 at 14:30 Acetaminophen/ Hydrocodone Bitart ([place] (10/325)) 2 tab Q4H PRN PO MODERATE PAIN LEVEL 4-6 Last administered on 01/22/19 10:48; Admin Dose 2 TAB; Start 01/20/19 at 18:30 Amlodipine Besylate (Norvasc) 5 mg BID PO Last administered on 01/22/19 08:39; Admin Dose 5 MG; Start 01/21/19 at 21:00 GO LAMBERT Jan 22, 2019 11:57
[2019-01-22] MEDS: ERTAPENEM SODIUM 1 GM in SOD CHLORIDE 0.9% 100 ML IVPB SCH (12:42)
[2019-01-22 14:00] VITALS: BP 138/89; PULSE 76; RESP 18
--- NOTE | 2019-01-22 17:42 | CONS ---
Assessment/Plan Assessment/Plan Hospital Course (Demo Recall) IMPRESSION: 1. Congestive heart failure exacerbation, diastolic, acute on chronic. 2. Hypertension-mildly elavated 3. Shortness of breath secondary to congestive heart failure exacerbation, d iastolic, acute on chronic. 4. Chronic renal failure. 5. Cirrhosis. 6. Ascites, recurrent. 7. Hypothyroidism. 8. History of ETOH abuse. 9. Anemia. 10.leukocytosis-worsening REcc: -ON med-surg -serial ecg's -Contineu lasix/aldactone and follow volume status closely and ascites -Continue toprol and CCB with slight increase to improve BP control -Continue lactulose -pain control -Continue abx's and f/u cx data -ID following Consultation Date/Type/Reason Admit Date/Time Jan 11, 2019 at 09:53 Initial Consult Date 01/12/19 Type of Consult Cardiology Reason for Consultation CHF Requesting Provider: KOKO MARLOW MD Date/Time of Note DATE: 01/22/19 TIME: 17:40 Exam/Review of Systems Vital Signs Vitals Vital Signs Date Temp Pulse Resp B/P (MAP) Pulse Ox O2 O2 Flow FiO2 Time Delivery Rate 01/22/19 98.6 76 18 138/89 96 14:00 (105) 01/22/19 21 08:59 Intake and Output 01/21/19 01/21/19 01/22/19 1515:00 23:00 07:00 IntakeIntake Total 500 ml 950 ml OutputOutput Total 700 ml 1450 ml BalanceBalance -200 ml -500 ml Exam Exam Review of Systems: CONSTITUTIONAL: No fevers, chills. PULMONARY: No sob CARDIOVASCULAR: No chest pain/palpitations GASTROINTESTINAL: No nausea/vomiting. GENITOURINARY: No hematuria/dysuria. MUSCULOSKELETAL: No myagias/arthalgias. PSYCHIATRIC: The patient denies depression. NEUROLOGIC: No weakness Constitutional: alert Psych: no complaints Head: normocephalic ENMT: mucosa pink and moist Neck: supple, jvd (9 cm water) Respiratory: diminished breath sounds Cardiovascular: regular rate and rhythm Gastrointestinal: soft, non-tender Musculoskeletal: muscle tone (normal) Extremities: edema (trace/B) Neurological: lethargic Labs Result Diagram: 01/22/19 0601 01/22/19 0601 Results 24hrs Laboratory Tests Test 01/22/19 06:01 White Blood Count 18.3 H Red Blood Count 4.87 Hemoglobin 10.3 L Hematocrit 37.2 L Mean Corpuscular Volume 76.4 L Mean Corpuscular Hemoglobin 21.1 L Mean Corpuscular Hemoglobin Concent 27.7 L Red Cell Distribution Width 23.5 H Platelet Count 257 Mean Platelet Volume Immature Granulocytes % 6.000 H Neutrophils % Segmented Neutrophils % (Manual) 63 Band Neutrophils % (Manual) 3 Lymphocytes % Lymphocytes % (Manual) 5 L Reactive Lymphocytes % (Manual) 3 H Monocytes % Monocytes % (Manual) 17 H Eosinophils % Eosinophils % (Manual) 2 Basophils % Basophils % (Manual) 3 H Metamyelocytes % (manual) 1 H Myelocytes % (Manual) 1 H Promyelocytes % (Manual) 2 H Nucleated Red Blood Cells % 0.0 Immature Granulocytes # 1.100 H Neutrophils # Neutrophils # (Manual) 11.6 H Band Neutrophils # 0.5 Lymphocytes (Manual) 0.9 Lymphocytes # Reactive Lymphocytes # 0.5 H Monocytes # Monocytes # (Manual) 3.1 H Eosinophils # Basophils # Basophils # (Manual) 0.5 H Metamyelocytes # 0.1 H Myelocytes # 0.1 H Promyelocytes # 0.3 H Nucleated Red Blood Cells # Platelet Estimate NORMAL Giant Platelets 10 H Polychromasia 2+ Hypochromasia 1+ Poikilocytosis 2+ Anisocytosis 2+ Microcytosis 1+ Sodium Level 143 Potassium Level 5.6 H Chloride Level 109 Carbon Dioxide Level 21 Anion Gap 13 Blood Urea Nitrogen 30 H Creatinine 1.40 H Est Glomerular Filtrat Rate mL/min 52 L Glucose Level 69 #L Calcium Level 9.0 Medications Medications Current Medications IV Flush (NS 3 ml) 3 ml PER PROTOCOL IV ; Start 01/11/19 at 13:00 Ondansetron HCl (Zofran Inj) 4 mg Q6H PRN IV NAUSEA/VOMITING; Start 01/11/19 at 13:00 Acetaminophen (Tylenol Tab) 650 mg Q6H PRN PO .PAIN 1-3 OR TEMP; Start 01/11/19 at 13:00 Albuterol (Proventil 0.083% (Neb)) 2.5 mg Q6 PRN HHN shortness of breath; Start 01/11/19 at 13:00 Spironolactone (Aldactone) 50 mg DAILY PO Last administered on 01/22/19 08:39; Admin Dose 50 MG; Start 01/12/19 at 09:00 Metoprolol Succinate (Toprol Xl) 50 mg DAILY PO Last administered on 01/22/19 08:40; Admin Dose 50 MG; Start 01/12/19 at 09:00 Lorazepam (Ativan) 0.5 mg Q6H PRN IV ANXIETY Last administered on 01/22/19 14:07; Admin Dose 0.5 MG; Start 01/11/19 at 23:00 Clonidine (Catapres) 0.1 mg Q6H PRN PO systolic BP > 160 Last administered on 01/12/19 21:31; Admin Dose 0.1 MG; Start 01/12/19 at 21:00 Levothyroxine Sodium (Synthroid) 225 mcg DAILY@06 PO Last administered on 01/22/19 05:50; Admin Dose 225 MCG; Start 01/13/19 at 06:00 Allopurinol (Zyloprim) 100 mg DAILY PO Last administered on 01/22/19 08:39; Admin Dose 100 MG; Start 01/13/19 at 09:00 Ascorbic Acid (Vitamin C) 500 mg DAILY PO Last administered on 01/22/19 08:39; Admin Dose 500 MG; Start 01/13/19 at 09:00 Docusate Sodium (Colace) 200 mg QHS PO Last administered on 01/21/19 21:47; Admin Dose 200 MG; Start 01/13/19 at 21:00 Epoetin Ghulam-epbx (RETACRIT(non-esrd)) 10,000 unit Q48H SC Last administered on 01/21/19 18:54; Admin Dose 10,000 UNIT; Start 01/13/19 at 18:00 Ferrous Sulfate (Ferrous Sulfate (Ec)) 325 mg DAILY PO Last administered on 01/22/19 08:39; Admin Dose 325 MG; Start 01/13/19 at 09:00 Folic Acid (Folic Acid) 1 mg DAILY PO Last administered on 01/22/19 08:40; Admin Dose 1 MG; Start 01/13/19 at 09:00 Gabapentin (Neurontin) 100 mg TID PO Last administered on 01/21/19 21:46; Admin Dose 100 MG; Start 01/13/19 at 09:00 Lactulose (Enulose) 20 gm BID PO Last administered on 01/22/19 08:38; Admin Dose 20 GM; Start 01/13/19 at 09:00 Lorazepam (Ativan) 1 mg BID PRN PO ANXIETY Last administered on 01/14/19 20:36; Admin Dose 1 MG; Start 01/13/19 at 06:30 Rifaximin (Xifaxan) 550 mg BID PO Last administered on 01/22/19 08:40; Admin Dose 550 MG; Start 01/13/19 at 09:00 Sodium Bicarbonate (Sodium Bicarbonate Tab) 325 mg TID PO Last administered on 01/22/19 12:42; Admin Dose 325 MG; Start 01/13/19 at 09:00 Tamsulosin HCl (Flomax) 0.4 mg HS PO Last administered on 01/21/19 21:47; Admin Dose 0.4 MG; Start 01/13/19 at 21:00 Thiamine HCl (Vitamin B1) 100 mg DAILY PO Last administered on 01/22/19 08:39; Admin Dose 100 MG; Start 01/13/19 at 09:00 Arformoterol Tartrate (Brovana (Neb)) 2 ml BID RESP THERAPY INH Last administered on 01/21/19 20:28; Admin Dose 2 ML; Start 01/13/19 at 09:00 Budesonide (Pulmicort (Neb)) 0.5 mg Q12H RESP THERAPY INH Last administered on 01/22/19 08:56; Admin Dose 0.5 MG; Start 01/13/19 at 09:00 Dorzolamide/ Timolol (Cosopt Pf Eye Drops) 1 drop BID BOTH EYES Last administered on 01/18/19 09:07; Admin Dose 1 DROP; Start 01/13/19 at 11:30 Nicotine (Nicoderm 21 Mg/ 24hr) 1 patch DAILY TRANSDERM Last administered on 01/22/19 08:41; Admin Dose 1 PATCH; Start 01/14/19 at 09:00 Famotidine (Pepcid) 20 mg Q12 PO Last administered on 01/22/19 08:40; Admin Dose 20 MG; Start 01/13/19 at 21:00 Hydromorphone HCl (Dilaudid) 1.5 mg Q4H PRN IV SEVERE PAIN LEVEL 7-10 Last administered on 01/22/19 12:43; Admin Dose 1.5 MG; Start 01/15/19 at 05:30 Doxycycline Hyclate (Vibramycin) 100 mg 08,1999 PO Last administered on 01/22/19 08:40; Admin Dose 100 MG; Start 01/15/19 at 20:00 Furosemide (Lasix) 20 mg DAILY PO Last administered on 01/22/19 08:39; Admin Dose 20 MG; Start 01/16/19 at 09:00 Buspirone HCl (Buspar) 10 mg BID PO Last administered on 01/22/19 08:39; Admin Dose 10 MG; Start 01/16/19 at 12:30 Acetaminophen/ Hydrocodone Bitart ([place] ()) 2 tab Q4H PRN PO MODERATE PAIN LEVEL 4-6 Last administered on 01/22/19 16:10; Admin Dose 2 TAB; Start 01/20/19 at 18:30 Amlodipine Besylate (Norvasc) 5 mg BID PO Last administered on 01/22/19 08:39; Admin Dose 5 MG; Start 01/21/19 at 21:00 Ertapenem 1 gm/ Sodium Chloride 100 ml @ 200 mls/hr Q24H IVPB Last administered on 01/22/19 12:42; Admin Dose 200 MLS/HR; Start 01/22/19 at 12:30 DUSTY CANTU Jan 22, 2019 17:42
[2019-01-22 19:43] VITALS: BP 172/82; PULSE 89
[2019-01-22] MEDS: DOCUSATE SODIUM 100 MG CAP PO SCH (20:04)
[2019-01-22] MEDS: TAMSULOSIN (SR) 0.4 MG CAP PO SCH (20:05)
[2019-01-22 20:45] VITALS: BP 159/76; PULSE 89; RESP 18
[2019-01-23] MEDS: LORAZEPAM 2 MG INJ IV PRN ×3 (01:01→18:58)
[2019-01-23 02:00] VITALS: BP 138/65; PULSE 74; RESP 18
[2019-01-23] MEDS: HYDROCODONE/APAP (10/325) TAB PO PRN ×5 (02:03→20:37)
[2019-01-23] MEDS: HYDROmorphONE 1 MG/ML SYG IV PRN ×5 (04:07→22:44)
[2019-01-23] MEDS: LEVOTHYROXINE 75 MCG TAB PO SCH (06:21)
[2019-01-23] MEDS: BUDESONIDE (NEB) 0.5MG/2ML AMP INH SCH ×2 (07:46→20:00)
[2019-01-23] MEDS: ARFORMOTEROL TARTRATE 15MCG/2 ML AMP INH SCH ×2 (07:46→20:00)
[2019-01-23 08:30] VITALS: BP 156/72; PULSE 80; RESP 18
[2019-01-23] MEDS: LACTULOSE 30ML CUP PO SCH ×2 (08:45→20:44)
[2019-01-23] MEDS: THIAMINE 100 MG TAB PO SCH (08:45)
[2019-01-23] MEDS: BUSPIRONE 10 MG TAB PO SCH ×2 (08:45→20:35)
[2019-01-23] MEDS: SPIRONOLACTONE 50 MG TAB PO SCH (08:45)
[2019-01-23] MEDS: RIFAXIMIN 550 MG TAB PO SCH ×2 (08:45→20:35)
[2019-01-23] MEDS: DOXYCYCLINE 100 MG TAB PO SCH ×2 (08:45→20:35)
[2019-01-23] MEDS: FUROSEMIDE 20 MG TAB PO SCH (08:46)
[2019-01-23] MEDS: ASCORBIC ACID 500 MG TAB PO SCH (08:46)
[2019-01-23] MEDS: AMLODIPINE 5 MG TAB PO SCH ×2 (08:46→20:36)
[2019-01-23] MEDS: METOPROLOL (XL) 50 MG TAB PO SCH (08:46)
[2019-01-23] MEDS: FAMOTIDINE 20 MG TAB PO SCH ×2 (08:47→20:35)
[2019-01-23] MEDS: FERROUS SULFATE (EC) 325 MG TAB PO SCH (08:47)
[2019-01-23] MEDS: ALLOPURINOL 100 MG TAB PO SCH (08:47)
[2019-01-23] MEDS: FOLIC ACID 1 MG TAB PO SCH (08:47)
[2019-01-23] MEDS: NA BICARBONATE 650 MG TAB PO SCH ×3 (08:48→20:35)
[2019-01-23] MEDS: NICOTINE (21 MG/24 HR) PATCH TRANSDERM SCH (08:48)
[2019-01-23] MEDS: DORZOLAMIDE/TIMOLOL/PF 0.2 ML DROPERETTE BOTH EYES SCH ×2 (08:49→20:44)
[2019-01-23] MEDS: GABAPENTIN 100 MG CAP PO SCH ×3 (08:49→20:37)
[2019-01-23] MEDS: ERTAPENEM SODIUM 1 GM in SOD CHLORIDE 0.9% 100 ML IVPB SCH (12:18)
--- NOTE | 2019-01-23 13:23 | CONS ---
Assessment/Plan Assessment/Plan Hospital Course (Demo Recall) Awake, looks comfortable, no fevers Abdominal ultrasound revealed no ascites Antimicrobials: Invanz doxycycline Physical examination: This is a wasted well-developed chronically ill-appearing elderly man who is in no distress. Head atraumatic normocephalic sclera nonicteric. Neck is supple chest rise symmetrical breath sounds diminished bases. Heart: S1-S2. Abdomen soft bowel sounds present. Extremities without BLE edema, mild erythema, no cyanosis. Assessment: 1. Systemic inflammatory response syndrome with ongoing leukocytosis, clinically stable 2. S/p COPD exacerbation 3. Alcohol abuse 4. Bilateral lower extremities acute on chronic cellulitis/chronic venous stasis 5. Cirrhosis with recurrent ascites 6. Chronic kidney disease 7. CHF 8. Noncompliance Plan: Clinically unchanged, continue present care Consultation Date/Type/Reason Admit Date/Time Jan 11, 2019 at 09:53 Initial Consult Date Type of Consult id Requesting Provider: KOKO MARLOW MD Date/Time of Note DATE: 01/23/19 TIME: 13:22 Exam/Review of Systems Exam Vitals Vital Signs Date Temp Pulse Resp B/P (MAP) Pulse Ox O2 O2 Flow FiO2 Time Delivery Rate 01/23/19 98.7 80 18 156/72 97 08:30 (100) 01/23/19 21 07:49 Intake and Output 01/22/19 01/22/19 01/23/19 1515:00 23:00 07:00 IntakeIntake Total 840 ml 450 ml 500 ml OutputOutput Total 400 ml BalanceBalance 840 ml 450 ml 100 ml Results Result Diagram: 01/22/19 0601 01/22/19 0601 Medications Medication Current Medications IV Flush (NS 3 ml) 3 ml PER PROTOCOL IV ; Start 01/11/19 at 13:00 Ondansetron HCl (Zofran Inj) 4 mg Q6H PRN IV NAUSEA/VOMITING; Start 01/11/19 at 13:00 Acetaminophen (Tylenol Tab) 650 mg Q6H PRN PO .PAIN 1-3 OR TEMP; Start 01/11/19 at 13:00 Albuterol (Proventil 0.083% (Neb)) 2.5 mg Q6 PRN HHN shortness of breath; Start 01/11/19 at 13:00 Spironolactone (Aldactone) 50 mg DAILY PO Last administered on 01/23/19 08:45; Admin Dose 50 MG; Start 01/12/19 at 09:00 Metoprolol Succinate (Toprol Xl) 50 mg DAILY PO Last administered on 01/23/19 08:46; Admin Dose 50 MG; Start 01/12/19 at 09:00 Lorazepam (Ativan) 0.5 mg Q6H PRN IV ANXIETY Last administered on 01/23/19 10:45; Admin Dose 0.5 MG; Start 01/11/19 at 23:00 Clonidine (Catapres) 0.1 mg Q6H PRN PO systolic BP > 160 Last administered on 01/12/19 21:31; Admin Dose 0.1 MG; Start 01/12/19 at 21:00 Levothyroxine Sodium (Synthroid) 225 mcg DAILY@06 PO Last administered on 01/23/19 06:21; Admin Dose 225 MCG; Start 01/13/19 at 06:00 Allopurinol (Zyloprim) 100 mg DAILY PO Last administered on 01/23/19 08:47; Admin Dose 100 MG; Start 01/13/19 at 09:00 Ascorbic Acid (Vitamin C) 500 mg DAILY PO Last administered on 01/23/19 08:46; Admin Dose 500 MG; Start 01/13/19 at 09:00 Docusate Sodium (Colace) 200 mg QHS PO Last administered on 01/22/19 20:04; Admin Dose 200 MG; Start 01/13/19 at 21:00 Epoetin Ghulam-epbx (RETACRIT(non-esrd)) 10,000 unit Q48H SC Last administered on 01/21/19 18:54; Admin Dose 10,000 UNIT; Start 01/13/19 at 18:00 Ferrous Sulfate (Ferrous Sulfate (Ec)) 325 mg DAILY PO Last administered on 01/23/19 08:47; Admin Dose 325 MG; Start 01/13/19 at 09:00 Folic Acid (Folic Acid) 1 mg DAILY PO Last administered on 01/23/19 08:47; Admin Dose 1 MG; Start 01/13/19 at 09:00 Gabapentin (Neurontin) 100 mg TID PO Last administered on 01/22/19 20:10; A dmin Dose 100 MG; Start 01/13/19 at 09:00 Lactulose (Enulose) 20 gm BID PO Last administered on 01/23/19 08:45; Admin Dose 20 GM; Start 01/13/19 at 09:00 Lorazepam (Ativan) 1 mg BID PRN PO ANXIETY Last administered on 01/14/19 20:36; Admin Dose 1 MG; Start 01/13/19 at 06:30 Rifaximin (Xifaxan) 550 mg BID PO Last administered on 01/23/19 08:45; Admin Dose 550 MG; Start 01/13/19 at 09:00 Sodium Bicarbonate (Sodium Bicarbonate Tab) 325 mg TID PO Last administered on 01/23/19 12:17; Admin Dose 325 MG; Start 01/13/19 at 09:00 Tamsulosin HCl (Flomax) 0.4 mg HS PO Last administered on 01/22/19 20:05; Admin Dose 0.4 MG; Start 01/13/19 at 21:00 Thiamine HCl (Vitamin B1) 100 mg DAILY PO Last administered on 01/23/19 08:45; Admin Dose 100 MG; Start 01/13/19 at 09:00 Arformoterol Tartrate (Brovana (Neb)) 2 ml BID RESP THERAPY INH Last administered on 01/23/19 07:46; Admin Dose 2 ML; Start 01/13/19 at 09:00 Budesonide (Pulmicort (Neb)) 0.5 mg Q12H RESP THERAPY INH Last administered on 01/23/19 07:46; Admin Dose 0.5 MG; Start 01/13/19 at 09:00 Dorzolamide/ Timolol (Cosopt Pf Eye Drops) 1 drop BID BOTH EYES Last administered on 01/18/19 09:07; Admin Dose 1 DROP; Start 01/13/19 at 11:30 Nicotine (Nicoderm 21 Mg/ 24hr) 1 patch DAILY TRANSDERM Last administered on 01/23/19 08:48; Admin Dose 1 PATCH; Start 01/14/19 at 09:00 Famotidine (Pepcid) 20 mg Q12 PO Last administered on 01/23/19 08:47; Admin Dose 20 MG; Start 01/13/19 at 21:00 Hydromorphone HCl (Dilaudid) 1.5 mg Q4H PRN IV SEVERE PAIN LEVEL 7-10 Last administered on 01/23/19 08:42; Admin Dose 1.5 MG; Start 01/15/19 at 05:30 Doxycycline Hyclate (Vibramycin) 100 mg 08,1999 PO Last administered on 01/23/19 08:45; Admin Dose 100 MG; Start 01/15/19 at 20:00 Furosemide (Lasix) 20 mg DAILY PO Last administered on 01/23/19 08:46; Admin Dose 20 MG; Start 01/16/19 at 09:00 Buspirone HCl (Buspar) 10 mg BID PO Last administered on 01/23/19 08:45; Admin Dose 10 MG; Start 01/16/19 at 12:30 Acetaminophen/ Hydrocodone Bitart ([place] (10)) 2 tab Q4H PRN PO MODERATE PAIN LEVEL 4-6 Last administered on 01/23/19 12:18; Admin Dose 2 TAB; Start 01/20/19 at 18:30 Amlodipine Besylate (Norvasc) 5 mg BID PO Last administered on 01/23/19 08:46; Admin Dose 5 MG; Start 01/21/19 at 21:00 Ertapenem 1 gm/ Sodium Chloride 100 ml @ 200 mls/hr Q24H IVPB Last administered on 01/23/19 12:18; Admin Dose 200 MLS/HR; Start 01/22/19 at 12:30 MELISSA NASH NP Jan 23, 2019 13:23
[2019-01-23 14:00] VITALS: BP 150/69; PULSE 77; RESP 18
--- NOTE | 2019-01-23 14:23 | PN ---
Date/Time of Note Date/Time of Note DATE: 01/23/19 TIME: 14:21 Assessment/Plan VTE Prophylaxis Risk score (from Nsg)>0 risk: 5 SCD applied (from Nsg): No Lines/Catheters IV Catheter Type (from Nrsg): Saline Lock Urinary Cath still in place: No Assessment/Plan Assessment/Plan -Shortness of breath, rule out acute coronary syndrome, cardiac enzymes are negative x3. -Acute on chronic diastolic congestive heart failure. Continue Lasix. Dr. Foley is following in cardiology consultation. -COPD exacerbation, continue bronchodilators, steroids, and oxygen supplementation. -Anemia, Dr. Mayes is following in gastroenterology consultation. -Alcoholic liver cirrhosis -Acute kidney injury on chronic kidney disease. Dr. Leung is following in nephrology consultation. -Bilateral lower extremities chronic venous stasis -Left foot plantar ulcer. Dr. Younger is following in podiatry consultation. -Obesity -Nicotine dependence, continue nicotine patch, cessation is strongly advised. -Ongoing alcohol use, cessation is strongly advised. -Poor medical compliance Further recommendations based on clinical course. Plan of care discussed with Dr. Lara. Result Diagram: 01/22/19 0601/22/19 06 Exam/Review of Systems Exam Vitals Vital Signs Date Temp Pulse Resp B/P (MAP) Pulse Ox O2 O2 Flow FiO2 Time Delivery Rate 01/23/19 98.7 80 18 156/72 97 08:30 (100) 01/23/19 21 07:49 Intake and Output 01/22/19 01/22/19 01/23/19 1515:00 23:00 07:00 IntakeIntake Total 840 ml 450 ml 500 ml OutputOutput Total 400 ml BalanceBalance 840 ml 450 ml 100 ml Medications Medication Current Medications IV Flush (NS 3 ml) 3 ml PER PROTOCOL IV ; Start 01/11/19 at 13:00 Ondansetron HCl (Zofran Inj) 4 mg Q6H PRN IV NAUSEA/VOMITING; Start 01/11/19 at 13:00 Acetaminophen (Tylenol Tab) 650 mg Q6H PRN PO .PAIN 1-3 OR TEMP; Start 01/11/19 at 13:00 Albuterol (Proventil 0.083% (Neb)) 2.5 mg Q6 PRN HHN shortness of breath; Start 01/11/19 at 13:00 Spironolactone (Aldactone) 50 mg DAILY PO Last administered on 01/23/19 08:45; Admin Dose 50 MG; Start 01/12/19 at 09:00 Metoprolol Succinate (Toprol Xl) 50 mg DAILY PO Last administered on 01/23/19 08:46; Admin Dose 50 MG; Start 01/12/19 at 09:00 Lorazepam (Ativan) 0.5 mg Q6H PRN IV ANXIETY Last administered on 01/23/19 10:45; Admin Dose 0.5 MG; Start 01/11/19 at 23:00 Clonidine (Catapres) 0.1 mg Q6H PRN PO systolic BP > 160 Last administered on 01/12/19 21:31; Admin Dose 0.1 MG; Start 01/12/19 at 21:00 Levothyroxine Sodium (Synthroid) 225 mcg DAILY@06 PO Last administered on 01/23/19 06:21; Admin Dose 225 MCG; Start 01/13/19 at 06:00 Allopurinol (Zyloprim) 100 mg DAILY PO Last administered on 01/23/19 08:47; Admin Dose 100 MG; Start 01/13/19 at 09:00 Ascorbic Acid (Vitamin C) 500 mg DAILY PO Last administered on 01/23/19 08:46; Admin Dose 500 MG; Start 01/13/19 at 09:00 Docusate Sodium (Colace) 200 mg QHS PO Last administered on 01/22/19 20:04; Admin Dose 200 MG; Start 01/13/19 at 21:00 Epoetin Ghulam-epbx (RETACRIT(non-esrd)) 10,000 unit Q48H SC Last administered on 01/21/19 18:54; Admin Dose 10,000 UNIT; Start 01/13/19 at 18:00 Ferrous Sulfate (Ferrous Sulfate (Ec)) 325 mg DAILY PO Last administered on 01/23/19 08:47; Admin Dose 325 MG; Start 01/13/19 at 09:00 Folic Acid (Folic Acid) 1 mg DAILY PO Last administered on 01/23/19 08:47; Admin Dose 1 MG; Start 01/13/19 at 09:00 Gabapentin (Neurontin) 100 mg TID PO Last administered on 01/22/19 20:10; Admin Dose 100 MG; Start 01/13/19 at 09:00 Lactulose (Enulose) 20 gm BID PO Last administered on 01/23/19 08:45; Admin Dose 20 GM; Start 01/13/19 at 09:00 Lorazepam (Ativan) 1 mg BID PRN PO ANXIETY Last administered on 01/14/19 20:36; Admin Dose 1 MG; Start 01/13/19 at 06:30 Rifaximin (Xifaxan) 550 mg BID PO Last administered on 01/23/19 08:45; Admin Dose 550 MG; Start 01/13/19 at 09:00 Sodium Bicarbonate (Sodium Bicarbonate Tab) 325 mg TID PO Last administered on 01/23/19 12:17; Admin Dose 325 MG; Start 01/13/19 at 09:00 Tamsulosin HCl (Flomax) 0.4 mg HS PO Last administered on 01/22/19 20:05; Admin Dose 0.4 MG; Start 01/13/19 at 21:00 Thiamine HCl (Vitamin B1) 100 mg DAILY PO Last administered on 01/23/19 08:45; Admin Dose 100 MG; Start 01/13/19 at 09:00 Arformoterol Tartrate (Brovana (Neb)) 2 ml BID RESP THERAPY INH Last administered on 01/23/19 07:46; Admin Dose 2 ML; Start 01/13/19 at 09:00 Budesonide (Pulmicort (Neb)) 0.5 mg Q12H RESP THERAPY INH Last administered on 01/23/19 07:46; Admin Dose 0.5 MG; Start 01/13/19 at 09:00 Dorzolamide/ Timolol (Cosopt Pf Eye Drops) 1 drop BID BOTH EYES Last a dministered on 01/18/19 09:07; Admin Dose 1 DROP; Start 01/13/19 at 11:30 Nicotine (Nicoderm 21 Mg/ 24hr) 1 patch DAILY TRANSDERM Last administered on 01/23/19 08:48; Admin Dose 1 PATCH; Start 01/14/19 at 09:00 Famotidine (Pepcid) 20 mg Q12 PO Last administered on 01/23/19 08:47; Admin Dose 20 MG; Start 01/13/19 at 21:00 Hydromorphone HCl (Dilaudid) 1.5 mg Q4H PRN IV SEVERE PAIN LEVEL 7-10 Last administered on 01/23/19 13:24; Admin Dose 1.5 MG; Start 01/15/19 at 05:30 Doxycycline Hyclate (Vibramycin) 100 mg 0800,1999 PO Last administered on 01/23/19 08:45; Admin Dose 100 MG; Start 01/15/19 at 20:00 Furosemide (Lasix) 20 mg DAILY PO Last administered on 01/23/19 08:46; Admin Dose 20 MG; Start 01/16/19 at 09:00 Buspirone HCl (Buspar) 10 mg BID PO Last administered on 01/23/19 08:45; Admin Dose 10 MG; Start 01/16/19 at 12:30 Acetaminophen/ Hydrocodone Bitart ([place] (10/325)) 2 tab Q4H PRN PO MODERATE PAIN LEVEL 4-6 Last administered on 01/23/19 12:18; Admin Dose 2 TAB; Start 01/20/19 at 18:30 Amlodipine Besylate (Norvasc) 5 mg BID PO Last administered on 01/23/19 08:46; Admin Dose 5 MG; Start 01/21/19 at 21:00 Ertapenem 1 gm/ Sodium Chloride 100 ml @ 200 mls/hr Q24H IVPB Last administered on 01/23/19 12:18; Admin Dose 200 MLS/HR; Start 01/22/19 at 12:30 GO LAMBERT Jan 23, 2019 14:23
[2019-01-23] MEDS ORDERED: SODIUM POLYSTYRENE 15 GM KIT (POWDER + SORBITOL) PO ONE (16:00)
--- NOTE | 2019-01-23 17:28 | CONS ---
Assessment/Plan Assessment/Plan Hospital Course (Demo Recall) IMPRESSION: 1. Congestive heart failure exacerbation, diastolic, acute on chronic. 2. Hypertension-mildly elavated 3. Shortness of breath secondary to congestive heart failure exacerbation, d iastolic, acute on chronic. 4. Chronic renal failure. 5. Cirrhosis. 6. Ascites, recurrent. 7. Hypothyroidism. 8. History of ETOH abuse. 9. Anemia. 10.leukocytosis-worsening REcc: -ON med-surg -serial ecg's -Contineu lasix/aldactone and follow volume status closely and ascites -Continue toprol and CCB with further slight increase and follow BP clsoely -Continue lactulose -pain control -Continue abx's and f/u cx data -ID following Consultation Date/Type/Reason Admit Date/Time Jan 11, 2019 at 09:53 Initial Consult Date 01/12/19 Type of Consult Cardiology Reason for Consultation CHF Requesting Provider: KOKO MARLOW MD Date/Time of Note DATE: 01/23/19 TIME: 17:25 Exam/Review of Systems Vital Signs Vitals Vital Signs Date Temp Pulse Resp B/P (MAP) Pulse Ox O2 O2 Flow FiO2 Time Delivery Rate 01/23/19 98.2 77 18 150/69 96 Room Air 14:00 (96) 01/23/19 21 07:49 Intake and Output 01/22/19 01/22/19 01/23/19 1515:00 23:00 07:00 IntakeIntake Total 840 ml 450 ml 500 ml OutputOutput Total 400 ml BalanceBalance 840 ml 450 ml 100 ml Exam Exam Review of Systems: CONSTITUTIONAL: No fevers, chills. PULMONARY: No sob CARDIOVASCULAR: No chest pain/palpitations GASTROINTESTINAL: No nausea/vomiting. GENITOURINARY: No hematuria/dysuria. MUSCULOSKELETAL: No myagias/arthalgias. PSYCHIATRIC: The patient denies depression. NEUROLOGIC: No weakness Constitutional: alert Psych: no complaints Head: normocephalic ENMT: mucosa pink and moist Neck: supple, jvd (9 cm water) Respiratory: diminished breath sounds Cardiovascular: regular rate and rhythm Gastrointestinal: soft Musculoskeletal: muscle tone Extremities: edema (none) Neurological: other (No focal deficits) Labs Result Diagram: 01/23/19 1400 01/23/19 1400 Results 24hrs Laboratory Tests Test 01/23/19 14:00 White Blood Count 16.0 H Red Blood Count 4.81 Hemoglobin 10.1 L Hematocrit 36.6 L Mean Corpuscular Volume 76.1 L Mean Corpuscular Hemoglobin 21.0 L Mean Corpuscular Hemoglobin Concent 27.6 L Red Cell Distribution Width 23.3 H Platelet Count 268 Mean Platelet Volume Immature Granulocytes % 5.100 H Neutrophils % Segmented Neutrophils % (Manual) 65 Band Neutrophils % (Manual) 2 Lymphocytes % Lymphocytes % (Manual) 7 L Reactive Lymphocytes % (Manual) 1 H Monocytes % Monocytes % (Manual) 15 H Eosinophils % Eosinophils % (Manual) 5 Basophils % Basophils % (Manual) 1 Myelocytes % (Manual) 1 H Promyelocytes % (Manual) 3 H Nucleated Red Blood Cells % 0.0 Immature Granulocytes # 0.820 H Neutrophils # Neutrophils # (Manual) 10.4 H Band Neutrophils # 0.3 Lymphocytes (Manual) 1.1 Lymphocytes # Reactive Lymphocytes # 0.1 H Monocytes # Monocytes # (Manual) 2.4 H Eosinophils # Basophils # Basophils # (Manual) 0.1 H Myelocytes # 0.1 H Promyelocytes # 0.4 H Nucleated Red Blood Cells # Platelet Estimate NORMAL Giant Platelets 3 H Polychromasia 2+ Poikilocytosis 1+ Anisocytosis 1+ Microcytosis 1+ Target Cells 1+ Ovalocytes 1+ Sodium Level 140 Potassium Level 5.6 H Chloride Level 113 H Carbon Dioxide Level 16 L Anion Gap 11 Blood Urea Nitrogen 33 H Creatinine 1.52 H Est Glomerular Filtrat Rate mL/min 47 L Glucose Level 82 Calcium Level 9.1 Medications Medications Current Medications IV Flush (NS 3 ml) 3 ml PER PROTOCOL IV ; Start 01/11/19 at 13:00 Ondansetron HCl (Zofran Inj) 4 mg Q6H PRN IV NAUSEA/VOMITING; Start 01/11/19 at 13:00 Acetaminophen (Tylenol Tab) 650 mg Q6H PRN PO .PAIN 1-3 OR TEMP; Start 01/11/19 at 13:00 Albuterol (Proventil 0.083% (Neb)) 2.5 mg Q6 PRN HHN shortness of breath; Start 01/11/19 at 13:00 Spironolactone (Aldactone) 50 mg DAILY PO Last administered on 01/23/19at 08:45; Admin Dose 50 MG; Start 01/12/19 at 09:00 Metoprolol Succinate (Toprol Xl) 50 mg DAILY PO Last administered on 01/23/19 08:46; Admin Dose 50 MG; Start 01/12/19 at 09:00 Lorazepam (Ativan) 0.5 mg Q6H PRN IV ANXIETY Last administered on 01/23/19 10:45; Admin Dose 0.5 MG; Start 01/11/19 at 23:00 Clonidine (Catapres) 0.1 mg Q6H PRN PO systolic BP > 160 Last administered on 01/12/19 21:31; Admin Dose 0.1 MG; Start 01/12/19 at 21:00 Levothyroxine Sodium (Synthroid) 225 mcg DAILY@06 PO Last administered on 01/23/19 06:21; Admin Dose 225 MCG; Start 01/13/19 at 06:00 Allopurinol (Zyloprim) 100 mg DAILY PO Last administered on 01/23/19 08:47; Admin Dose 100 MG; Start 01/13/19 at 09:00 Ascorbic Acid (Vitamin C) 500 mg DAILY PO Last administered on 01/23/19 08:46; Admin Dose 500 MG; Start 01/13/19 at 09:00 Docusate Sodium (Colace) 200 mg QHS PO Last administered on 01/22/19 20:04; Admin Dose 200 MG; Start 01/13/19 at 21:00 Epoetin Ghulam-epbx (RETACRIT(non-esrd)) 10,000 unit Q48H SC Last administered on 01/21/19 18:54; Admin Dose 10,000 UNIT; Start 01/13/19 at 18:00 Ferrous Sulfate (Ferrous Sulfate (Ec)) 325 mg DAILY PO Last administered on 01/23/19 08:47; Admin Dose 325 MG; Start 01/13/19 at 09:00 Folic Acid (Folic Acid) 1 mg DAILY PO Last administered on 01/23/19 08:47; Admin Dose 1 MG; Start 01/13/19 at 09:00 Gabapentin (Neurontin) 100 mg TID PO Last administered on 01/22/19 20:10; Admin Dose 100 MG; Start 01/13/19 at 09:00 Lactulose (Enulose) 20 gm BID PO Last administered on 01/23/19 08:45; Admin Dose 20 GM; Start 01/13/19 at 09:00 Lorazepam (Ativan) 1 mg BID PRN PO ANXIETY Last administered on 01/14/19 20:36; Admin Dose 1 MG; Start 01/13/19 at 06:30 Rifaximin (Xifaxan) 550 mg BID PO Last administered on 01/23/19 08:45; Admin Dose 550 MG; Start 01/13/19 at 09:00 Sodium Bicarbonate (Sodium Bicarbonate Tab) 325 mg TID PO Last administered on 01/23/19 12:17; Admin Dose 325 MG; Start 01/13/19 at 09:00 Tamsulosin HCl (Flomax) 0.4 mg HS PO Last administered on 01/22/19 20:05; Admin Dose 0.4 MG; Start 01/13/19 at 21:00 Thiamine HCl (Vitamin B1) 100 mg DAILY PO Last administered on 01/23/19 08:45; Admin Dose 100 MG; Start 01/13/19 at 09:00 Arformoterol Tartrate (Brovana (Neb)) 2 ml BID RESP THERAPY INH Last admin istered on 01/23/19 07:46; Admin Dose 2 ML; Start 01/13/19 at 09:00 Budesonide (Pulmicort (Neb)) 0.5 mg Q12H RESP THERAPY INH Last administered on 01/23/19 07:46; Admin Dose 0.5 MG; Start 01/13/19 at 09:00 Dorzolamide/ Timolol (Cosopt Pf Eye Drops) 1 drop BID BOTH EYES Last administered on 01/18/19 09:07; Admin Dose 1 DROP; Start 01/13/19 at 11:30 Nicotine (Nicoderm 21 Mg/ 24hr) 1 patch DAILY TRANSDERM Last administered on 01/23/19 08:48; Admin Dose 1 PATCH; Start 01/14/19 at 09:00 Famotidine (Pepcid) 20 mg Q12 PO Last administered on 01/23/19 08:47; Admin Dose 20 MG; Start 01/13/19 at 21:00 Hydromorphone HCl (Dilaudid) 1.5 mg Q4H PRN IV SEVERE PAIN LEVEL 7-10 Last administered on 01/23/19 13:24; Admin Dose 1.5 MG; Start 01/15/19 at 05:30 Doxycycline Hyclate (Vibramycin) 100 mg 0800,2000 PO Last administered on 01/23/19 08:45; Admin Dose 100 MG; Start 01/15/19 at 20:00 Furosemide (Lasix) 20 mg DAILY PO Last administered on 01/23/19 08:46; Admin Dose 20 MG; Start 01/16/19 at 09:00 Buspirone HCl (Buspar) 10 mg BID PO Last administered on 01/23/19 08:45; Admin Dose 10 MG; Start 01/16/19 at 12:30 Acetaminophen/ Hydrocodone Bitart ([place] (10)) 2 tab Q4H PRN PO MODERATE PAIN LEVEL 4-6 Last administered on 01/23/19 16:29; Admin Dose 2 TAB; Start 01/20/19 at 18:30 Amlodipine Besylate (Norvasc) 5 mg BID PO Last administered on 01/23/19 08:46; Admin Dose 5 MG; Start 01/21/19 at 21:00 Ertapenem 1 gm/ Sodium Chloride 100 ml @ 200 mls/hr Q24H IVPB Last administered on 01/23/19 12:18; Admin Dose 200 MLS/HR; Start 01/22/19 at 12:30 DUSTY CANTU Jan 23, 2019 17:27
[2019-01-23] MEDS: EPOETIN ALFA-EPBX (NON-ESRD 10,000 UNIT/ML VIAL SC SCH (17:47)
[2019-01-23 20:00] VITALS: BP 142/55; PULSE 76; RESP 18
[2019-01-23] MEDS: DOCUSATE SODIUM 100 MG CAP PO SCH (20:35)
[2019-01-23] MEDS: TAMSULOSIN (SR) 0.4 MG CAP PO SCH (20:36)
[2019-01-23] MEDS: METOPROLOL (XL) 25 MG TAB PO SCH ×2 (21:00→22:49)
--- NOTE | 2019-01-23 21:19 | CONS ---
Assessment/Plan Assessment/Plan Assessment/Plan (Daily) 1. acute on chronic renal failure due to Type II hepatorenal syndrome 2. SIRS 3. anemia of CKD 5. Decompensated Liver cirrhosis with Symptomatic ascites 6. H/O HTN 7. h/o Liver cirrhosis with ascites 8. H/o Diastolic CHF 9. Bilateral LE chronic venous stasis 10.H/o BPH on flomax 11. Acute hyperkalemia Plan: Continue IV abx Ertapenem and PO Doxycycline as per ID , renally dose all abx , monitor electorlytes and replace as needed, BUN/Cr-33/1.52, K 5.6- s/p Kayexalate- stop aldactone due to hyperkalemia Continue lasix to 20mg po daily, , , Toprol Xl 50mg po daily , amlodipine 5 mg po daily on Sodium bicarbonte 325mg PO TID Flomax 0.4mg po daily for BPH will follow up Consultation Date/Type/Reason Admit Date/Time Jan 11, 2019 at 09:53 Initial Consult Date 01/11/19 Type of Consult Nephrology Requesting Provider: KOKO MARLOW MD Date/Time of Note DATE: 01/23/19 TIME: 21:19 Exam/Review of Systems Exam Vitals Vital Signs Date Temp Pulse Resp B/P (MAP) Pulse Ox O2 O2 Flow FiO2 Time Delivery Rate 01/23/19 98.2 77 18 150/69 96 Room Air 14:00 (96) 01/23/19 21 07:49 Intake and Output 01/22/19 01/22/19 01/23/19 1515:00 23:00 07:00 IntakeIntake Total 840 ml 450 ml 500 ml OutputOutput Total 400 ml BalanceBalance 840 ml 450 ml 100 ml Exam Constitutional: alert, well developed Respiratory: diminished breath sounds (at bases bilaterally) Cardiovascular: nl pulses, other (s1s2) Gastrointestinal: soft Musculoskeletal: nl extremities to inspection Extremities: normal pulses Neurological: nl speech, other (alert/responsive) Skin: other (chronic changes BLE) Lymph: nontender Results Result Diagram: 01/23/19 1400 01/23/19 1400 Results 24hrs Laboratory Tests Test 01/23/19 14:00 White Blood Count 16.0 H Red Blood Count 4.81 Hemoglobin 10.1 L Hematocrit 36.6 L Mean Corpuscular Volume 76.1 L Mean Corpuscular Hemoglobin 21.0 L Mean Corpuscular Hemoglobin Concent 27.6 L Red Cell Distribution Width 23.3 H Platelet Count 268 Mean Platelet Volume Immature Granulocytes % 5.100 H Neutrophils % Segmented Neutrophils % (Manual) 65 Band Neutrophils % (Manual) 2 Lymphocytes % Lymphocytes % (Manual) 7 L Reactive Lymphocytes % (Manual) 1 H Monocytes % Monocytes % (Manual) 15 H Eosinophils % Eosinophils % (Manual) 5 Basophils % Basophils % (Manual) 1 Myelocytes % (Manual) 1 H Promyelocytes % (Manual) 3 H Nucleated Red Blood Cells % 0.0 Immature Granulocytes # 0.820 H Neutrophils # Neutrophils # (Manual) 10.4 H Band Neutrophils # 0.3 Lymphocytes (Manual) 1.1 Lymphocytes # Reactive Lymphocytes # 0.1 H Monocytes # Monocytes # (Manual) 2.4 H Eosinophils # Basophils # Basophils # (Manual) 0.1 H Myelocytes # 0.1 H Promyelocytes # 0.4 H Nucleated Red Blood Cells # Platelet Estimate NORMAL Giant Platelets 3 H Polychromasia 2+ Poikilocytosis 1+ Anisocytosis 1+ Microcytosis 1+ Target Cells 1+ Ovalocytes 1+ Sodium Level 140 Potassium Level 5.6 H Chloride Level 113 H Carbon Dioxide Level 16 L Anion Gap 11 Blood Urea Nitrogen 33 H Creatinine 1.52 H Est Glomerular Filtrat Rate mL/min 47 L Glucose Level 82 Calcium Level 9.1 Medications Medication Current Medications IV Flush (NS 3 ml) 3 ml PER PROTOCOL IV ; Start 01/11/19 at 13:00 Ondansetron HCl (Zofran Inj) 4 mg Q6H PRN IV NAUSEA/VOMITING; Start 01/11/19 at 13:00 Acetaminophen (Tylenol Tab) 650 mg Q6H PRN PO .PAIN 1-3 OR TEMP; Start 01/11/19 at 13:00 Albuterol (Proventil 0.083% (Neb)) 2.5 mg Q6 PRN HHN shortness of breath; Start 01/11/19 at 13:00 Spironolactone (Aldactone) 50 mg DAILY PO Last administered on 01/23/19at 08:45; Admin Dose 50 MG; Start 01/12/19 at 09:00 Metoprolol Succinate (Toprol Xl) 50 mg DAILY PO Last administered on 01/23/19at 08:46; Admin Dose 50 MG; Start 01/12/19 at 09:00 Lorazepam (Ativan) 0.5 mg Q6H PRN IV ANXIETY Last administered on 01/23/19 18:58; Admin Dose 0.5 MG; Start 01/11/19 at 23:00 Clonidine (Catapres) 0.1 mg Q6H PRN PO systolic BP > 160 Last administered on 01/12/19 21:31; Admin Dose 0.1 MG; Start 01/12/19 at 21:00 Levothyroxine Sodium (Synthroid) 225 mcg DAILY@06 PO Last administered on 01/23/19 06:21; Admin Dose 225 MCG; Start 01/13/19 at 06:00 Allopurinol (Zyloprim) 100 mg DAILY PO Last administered on 01/23/19 08:47; Admin Dose 100 MG; Start 01/13/19 at 09:00 Ascorbic Acid (Vitamin C) 500 mg DAILY PO Last administered on 01/23/19 08:46; Admin Dose 500 MG; Start 01/13/19 at 09:00 Docusate Sodium (Colace) 200 mg QHS PO Last administered on 01/23/19 20:35; Admin Dose 200 MG; Start 01/13/19 at 21:00 Epoetin Ghulam-epbx (RETACRIT(non-esrd)) 10,000 unit Q48H SC Last administered on 01/23/19 17:47; Admin Dose 10,000 UNIT; Start 01/13/19 at 18:00 Ferrous Sulfate (Ferrous Sulfate (Ec)) 325 mg DAILY PO Last administered on 01/23/19 08:47; Admin Dose 325 MG; Start 01/13/19 at 09:00 Folic Acid (Folic Acid) 1 mg DAILY PO Last administered on 01/23/19 08:47; Admin Dose 1 MG; Start 01/13/19 at 09:00 Gabapentin (Neurontin) 100 mg TID PO Last administered on 01/23/19 20:37; Ad min Dose 100 MG; Start 01/13/19 at 09:00 Lactulose (Enulose) 20 gm BID PO Last administered on 01/23/19 08:45; Admin Dose 20 GM; Start 01/13/19 at 09:00 Lorazepam (Ativan) 1 mg BID PRN PO ANXIETY Last administered on 01/14/19 20:36; Admin Dose 1 MG; Start 01/13/19 at 06:30 Rifaximin (Xifaxan) 550 mg BID PO Last administered on 01/23/19 20:35; Admin Dose 550 MG; Start 01/13/19 at 09:00 Sodium Bicarbonate (Sodium Bicarbonate Tab) 325 mg TID PO Last administered on 01/23/19 20:35; Admin Dose 325 MG; Start 01/13/19 at 09:00 Tamsulosin HCl (Flomax) 0.4 mg HS PO Last administered on 01/23/19 20:36; Admin Dose 0.4 MG; Start 01/13/19 at 21:00 Thiamine HCl (Vitamin B1) 100 mg DAILY PO Last administered on 01/23/19 08:45; Admin Dose 100 MG; Start 01/13/19 at 09:00 Arformoterol Tartrate (Brovana (Neb)) 2 ml BID RESP THERAPY INH Last administered on 01/23/19 07:46; Admin Dose 2 ML; Start 01/13/19 at 09:00 Budesonide (Pulmicort (Neb)) 0.5 mg Q12H RESP THERAPY INH Last administered on 01/23/19 07:46; Admin Dose 0.5 MG; Start 01/13/19 at 09:00 Dorzolamide/ Timolol (Cosopt Pf Eye Drops) 1 drop BID BOTH EYES Last administered on 01/18/19 09:07; Admin Dose 1 DROP; Start 01/13/19 at 11:30 Nicotine (Nicoderm 21 Mg/ 24hr) 1 patch DAILY TRANSDERM Last administered on 01/23/19 08:48; Admin Dose 1 PATCH; Start 01/14/19 at 09:00 Famotidine (Pepcid) 20 mg Q12 PO Last administered on 01/23/19 20:35; Admin Dose 20 MG; Start 01/13/19 at 21:00 Hydromorphone HCl (Dilaudid) 1.5 mg Q4H PRN IV SEVERE PAIN LEVEL 7-10 Last administered on 01/23/19 17:47; Admin Dose 1.5 MG; Start 01/15/19 at 05:30 Doxycycline Hyclate (Vibramycin) 100 mg 0800,2000 PO Last administered on 01/23/19 20:35; Admin Dose 100 MG; Start 01/15/19 at 20:00 Furosemide (Lasix) 20 mg DAILY PO Last administered on 01/23/19 08:46; Admin Dose 20 MG; Start 01/16/19 at 09:00 Buspirone HCl (Buspar) 10 mg BID PO Last administered on 01/23/19 20:35; Admin Dose 10 MG; Start 01/16/19 at 12:30 Acetaminophen/ Hydrocodone Bitart ([place] ([address])) 2 tab Q4H PRN PO MODERATE PAIN LEVEL 4-6 Last administered on 01/23/19 20:37; Admin Dose 2 TAB; Start 01/20/19 at 18:30 Amlodipine Besylate (Norvasc) 5 mg BID PO Last administered on 01/23/19 20:36; Admin Dose 5 MG; Start 01/21/19 at 21:00 Ertapenem 1 gm/ Sodium Chloride 100 ml @ 200 mls/hr Q24H IVPB Last administered on 01/23/19 12:18; Admin Dose 200 MLS/HR; Start 01/22/19 at 12:30 Metoprolol Succinate (Toprol Xl) 25 mg HS PO ; Start 01/23/19 at 21:00 ELADIO DELGADO MD Jan 23, 2019 21:19
[2019-01-24 02:00] VITALS: BP 149/71; PULSE 69; RESP 17
[2019-01-24] MEDS: HYDROmorphONE 1 MG/ML SYG IV PRN ×5 (03:37→21:24)
[2019-01-24] MEDS: LACTULOSE 30ML CUP PO SCH ×4 (03:38→20:22)
[2019-01-24] MEDS: LEVOTHYROXINE 75 MCG TAB PO SCH (06:47)
[2019-01-24] MEDS: HYDROCODONE/APAP (10/325) TAB PO PRN ×3 (06:49→20:22)
[2019-01-24] MEDS: ARFORMOTEROL TARTRATE 15MCG/2 ML AMP INH SCH ×2 (07:49→21:01)
[2019-01-24] MEDS: BUDESONIDE (NEB) 0.5MG/2ML AMP INH SCH ×2 (07:49→21:02)
[2019-01-24 08:13] VITALS: BP 161/72; PULSE 71; RESP 16
[2019-01-24] MEDS: GABAPENTIN 100 MG CAP PO SCH ×3 (09:00→20:32)
[2019-01-24] MEDS: DORZOLAMIDE/TIMOLOL/PF 0.2 ML DROPERETTE BOTH EYES SCH ×2 (09:00→20:32)
[2019-01-24] MEDS: FOLIC ACID 1 MG TAB PO SCH (09:10)
[2019-01-24] MEDS: FUROSEMIDE 20 MG TAB PO SCH (09:10)
[2019-01-24] MEDS: RIFAXIMIN 550 MG TAB PO SCH ×2 (09:10→20:22)
[2019-01-24] MEDS: NA BICARBONATE 650 MG TAB PO SCH ×3 (09:11→20:22)
[2019-01-24] MEDS: FAMOTIDINE 20 MG TAB PO SCH ×2 (09:11→20:22)
[2019-01-24] MEDS: BUSPIRONE 10 MG TAB PO SCH ×2 (09:12→20:22)
[2019-01-24] MEDS: THIAMINE 100 MG TAB PO SCH (09:12)
[2019-01-24] MEDS: ASCORBIC ACID 500 MG TAB PO SCH (09:12)
[2019-01-24] MEDS: AMLODIPINE 5 MG TAB PO SCH ×2 (09:12→20:23)
[2019-01-24] MEDS: METOPROLOL (XL) 50 MG TAB PO SCH (09:12)
[2019-01-24] MEDS: FERROUS SULFATE (EC) 325 MG TAB PO SCH (09:13)
[2019-01-24] MEDS: ALLOPURINOL 100 MG TAB PO SCH (09:13)
[2019-01-24] MEDS: NICOTINE (21 MG/24 HR) PATCH TRANSDERM SCH (09:14)
[2019-01-24] MEDS: DOXYCYCLINE 100 MG TAB PO SCH ×2 (09:20→20:22)
[2019-01-24] MEDS: LORAZEPAM 2 MG INJ IV PRN ×3 (09:24→22:16)
[2019-01-24] MEDS: ERTAPENEM SODIUM 1 GM in SOD CHLORIDE 0.9% 100 ML IVPB SCH (12:25)
--- NOTE | 2019-01-24 13:49 | PN ---
Date/Time of Note Date/Time of Note DATE: 01/24/19 TIME: 13:48 Assessment/Plan VTE Prophylaxis Risk score (from [facility])>0 risk: 5 SCD applied (from [facility]): No SCD contraindicated: other Pharmacological prophylaxis: LMWH Lines/Catheters IV [facility] [place] Urinary Cath still in place: No Assessment/Plan Hospital Course -Shortness of breath, rule out acute coronary syndrome, cardiac enzymes are negative x3. -Acute on chronic diastolic congestive heart failure. Continue Lasix. Dr. Folye is following in cardiology consultation. -COPD exacerbation, continue bronchodilators, steroids, and oxygen supplementation. -Anemia, Dr. Mayes is following in gastroenterology consultation. -Alcoholic liver cirrhosis -Acute kidney injury on chronic kidney disease. Dr. Leung is following in nephrology consultation. -Bilateral lower extremities chronic venous stasis -Left foot plantar ulcer. Dr. Younger is following in podiatry consultation. -Obesity -Nicotine dependence, continue nicotine patch, cessation is strongly advised. -Ongoing alcohol use, cessation is strongly advised. -Poor medical compliance Result Diagram: 01/24/19 0543 01/24/19 0543 Results 24hrs Laboratory Tests Test 01/23/19 14:00 01/24/19 05:43 White Blood Count 16.0 H 15.5 H Red Blood Count 4.81 5.02 Hemoglobin 10.1 L 10.4 L Hematocrit 36.6 L 37.8 L Mean Corpuscular Volume 76.1 L 75.3 L Mean Corpuscular Hemoglobin 21.0 L 20.7 L Mean Corpuscular Hemoglobin Concent 27.6 L 27.5 L Red Cell Distribution Width 23.3 H 23.5 H Platelet Count 268 295 Mean Platelet Volume Immature Granulocytes % 5.100 H 4.900 H Neutrophils % Segmented Neutrophils % (Manual) 65 68 Band Neutrophils % (Manual) 2 3 Lymphocytes % Lymphocytes % (Manual) 7 L 3 L Reactive Lymphocytes % (Manual) 1 H 1 H Monocytes % Monocytes % (Manual) 15 H 20 H Eosinophils % Eosinophils % (Manual) 5 4 Basophils % Basophils % (Manual) 1 Myelocytes % (Manual) 1 H Promyelocytes % (Manual) 3 H Nucleated Red Blood Cells % 0.0 0.0 Immature Granulocytes # 0.820 H 0.760 H Neutrophils # Neutrophils # (Manual) 10.4 H 10.6 H Band Neutrophils # 0.3 0.4 Lymphocytes (Manual) 1.1 0.4 L Lymphocytes # Reactive Lymphocytes # 0.1 H 0.1 H Monocytes # Monocytes # (Manual) 2.4 H 3.1 H Eosinophils # Basophils # Basophils # (Manual) 0.1 H Myelocytes # 0.1 H Promyelocytes # 0.4 H Nucleated Red Blood Cells # Platelet Estimate NORMAL NORMAL Giant Platelets 3 H Polychromasia 2+ 2+ Poikilocytosis 1+ 3+ Anisocytosis 1+ 2+ Microcytosis 1+ 1+ Target Cells 1+ Ovalocytes 1+ 1+ Sodium Level 140 143 Potassium Level 5.6 H 5.1 Chloride Level 113 H 111 H Carbon Dioxide Level 16 L 21 Anion Gap 11 11 Blood Urea Nitrogen 33 H 31 H Creatinine 1.52 H 1.42 H Est Glomerular Filtrat Rate mL/min 47 L 51 L Glucose Level 82 77 Calcium Level 9.1 8.8 Metamyelocytes % (manual) 1 H Metamyelocytes # 0.1 H Platelet Morphology Comment @See below Hypochromasia 2+ Subjective 24 Hr Interval Summary Free Text/Dictation Patient not in room so unable to interview Exam/Review of Systems Exam Vitals Vital Signs Date Temp Pulse Resp B/P (MAP) Pulse Ox O2 O2 Flow FiO2 Time Delivery Rate 01/24/19 97.8 71 16 161/72 99 Room Air 08:13 (101) 01/24/19 21 07:46 Intake and Output 01/23/19 01/23/19 01/24/19 1515:00 23:00 07:00 IntakeIntake Total 1140 ml 400 ml OutputOutput Total 1000 ml 400 ml BalanceBalance 140 ml 0 ml Exam Unable to examine as patient is not in room Results Results 24hrs Laboratory Tests Test 01/23/19 14:00 01/24/19 05:43 White Blood Count 16.0 H 15.5 H Red Blood Count 4.81 5.02 Hemoglobin 10.1 L 10.4 L Hematocrit 36.6 L 37.8 L Mean Corpuscular Volume 76.1 L 75.3 L Mean Corpuscular Hemoglobin 21.0 L 20.7 L Mean Corpuscular Hemoglobin Concent 27.6 L 27.5 L Red Cell Distribution Width 23.3 H 23.5 H Platelet Count 268 295 Mean Platelet Volume Immature Granulocytes % 5.100 H 4.900 H Neutrophils % Segmented Neutrophils % (Manual) 65 68 Band Neutrophils % (Manual) 2 3 Lymphocytes % Lymphocytes % (Manual) 7 L 3 L Reactive Lymphocytes % (Manual) 1 H 1 H Monocytes % Monocytes % (Manual) 15 H 20 H Eosinophils % Eosinophils % (Manual) 5 4 Basophils % Basophils % (Manual) 1 Myelocytes % (Manual) 1 H Promyelocytes % (Manual) 3 H Nucleated Red Blood Cells % 0.0 0.0 Immature Granulocytes # 0.820 H 0.760 H Neutrophils # Neutrophils # (Manual) 10.4 H 10.6 H Band Neutrophils # 0.3 0.4 Lymphocytes (Manual) 1.1 0.4 L Lymphocytes # Reactive Lymphocytes # 0.1 H 0.1 H Monocytes # Monocytes # (Manual) 2.4 H 3.1 H Eosinophils # Basophils # Basophils # (Manual) 0.1 H Myelocytes # 0.1 H Promyelocytes # 0.4 H Nucleated Red Blood Cells # Platelet Estimate NORMAL NORMAL Giant Platelets 3 H Polychromasia 2+ 2+ Poikilocytosis 1+ 3+ Anisocytosis 1+ 2+ Microcytosis 1+ 1+ Target Cells 1+ Ovalocytes 1+ 1+ Sodium Level 140 143 Potassium Level 5.6 H 5.1 Chloride Level 113 H 111 H Carbon Dioxide Level 16 L 21 Anion Gap 11 11 Blood Urea Nitrogen 33 H 31 H Creatinine 1.52 H 1.42 H Est Glomerular Filtrat Rate mL/min 47 L 51 L Glucose Level 82 77 Calcium Level 9.1 8.8 Metamyelocytes % (manual) 1 H Metamyelocytes # 0.1 H Platelet Morphology Comment @See below Hypochromasia 2+ Medications Medication Current Medications IV Flush (NS 3 ml) 3 ml PER PROTOCOL IV ; Start 01/11/19 at 13:00 Ondansetron HCl (Zofran Inj) 4 mg Q6H PRN IV NAUSEA/VOMITING; Start 01/11/19 at 13:00 Acetaminophen (Tylenol Tab) 650 mg Q6H PRN PO .PAIN 1-3 OR TEMP; Start 01/11/19 at 13:00 Albuterol (Proventil 0.083% (Neb)) 2.5 mg Q6 PRN HHN shortness of breath; Start 01/11/19 at 13:00 Metoprolol Succinate (Toprol Xl) 50 mg DAILY PO Last administered on 01/24/19 09:12; Admin Dose 50 MG; Start 01/12/19 at 09:00 Lorazepam (Ativan) 0.5 mg Q6H PRN IV ANXIETY Last administered on 01/24/19 09:24; Admin Dose 0.5 MG; Start 01/11/19 at 23:00 Clonidine (Catapres) 0.1 mg Q6H PRN PO systolic BP > 160 Last administered on 01/12/19 21:31; Admin Dose 0.1 MG; Start 01/12/19 at 21:00 Levothyroxine Sodium (Synthroid) 225 mcg DAILY@06 PO Last administered on 01/24/19 06:47; Admin Dose 225 MCG; Start 01/13/19 at 06:00 Allopurinol (Zyloprim) 100 mg DAILY PO Last administered on 01/24/19 09:13; Admin Dose 100 MG; Start 01/13/19 at 09:00 Ascorbic Acid (Vitamin C) 500 mg DAILY PO Last administered on 01/24/19 09:12; Admin Dose 500 MG; Start 01/13/19 at 09:00 Docusate Sodium (Colace) 200 mg QHS PO Last administered on 01/23/19 20:35; Admin Dose 200 MG; Start 01/13/19 at 21:00 Epoetin Ghulam-epbx (RETACRIT(non-esrd)) 10,000 unit Q48H SC Last administered on 01/23/19 17:47; Admin Dose 10,000 UNIT; Start 01/13/19 at 18:00 Ferrous Sulfate (Ferrous Sulfate (Ec)) 325 mg DAILY PO Last administered on 01/24/19 09:13; Admin Dose 325 MG; Start 01/13/19 at 09:00 Folic Acid (Folic Acid) 1 mg DAILY PO Last administered on 01/24/19 09:10; Admin Dose 1 MG; Start 01/13/19 at 09:00 Gabapentin (Neurontin) 100 mg TID PO Last administered on 01/23/19 20:37; Admin Dose 100 MG; Start 01/13/19 at 09:00 Lactulose (Enulose) 20 gm BID PO Last administered on 01/24/19 09:31; Admin Dose 20 GM; Start 01/13/19 at 09:00 Lorazepam (Ativan) 1 mg BID PRN PO ANXIETY Last administered on 01/14/19 20:36; Admin Dose 1 MG; Start 01/13/19 at 06:30 Rifaximin (Xifaxan) 550 mg BID PO Last administered on 01/24/19 09:10; Admin Dose 550 MG; Start 01/13/19 at 09:00 Sodium Bicarbonate (Sodium Bicarbonate Tab) 325 mg TID PO Last administered on 01/24/19 12:22; Admin Dose 325 MG; Start 01/13/19 at 09:00 Tamsulosin HCl (Flomax) 0.4 mg HS PO Last administered on 01/23/19 20:36; Admin Dose 0.4 MG; Start 01/13/19 at 21:00 Thiamine HCl (Vitamin B1) 100 mg DAILY PO Last administered on 01/24/19 09:12; Admin Dose 100 MG; Start 01/13/19 at 09:00 Arformoterol Tartrate (Brovana (Neb)) 2 ml BID RESP THERAPY INH Last administered on 01/24/19 07:49; Admin Dose 2 ML; Start 01/13/19 at 09:00 Budesonide (Pulmicort (Neb)) 0.5 mg Q12H RESP THERAPY INH Last administered on 01/24/19 07:49; Admin Dose 0.5 MG; Start 01/13/19 at 09:00 Dorzolamide/ Timolol (Cosopt Pf Eye Drops) 1 drop BID BOTH EYES Last administered on 01/18/19 09:07; Admin Dose 1 DROP; Start 01/13/19 at 11:30 Nicotine (Nicoderm 21 Mg/ 24hr) 1 patch DAILY TRANSDERM Last administered on 01/24/19 09:14; Admin Dose 1 PATCH; Start 01/14/19 at 09:00 Famotidine (Pepcid) 20 mg Q12 PO Last administered on 01/24/19 09:11; Admin Dose 20 MG; Start 01/13/19 at 21:00 Hydromorphone HCl (Dilaudid) 1.5 mg Q4H PRN IV SEVERE PAIN LEVEL 7-10 Last administered on 01/24/19 12:28; Admin Dose 1.5 MG; Start 01/15/19 at 05:30 Doxycycline Hyclate (Vibramycin) 100 mg 0800,1999 PO Last administered on 01/24/19 09:20; Admin Dose 100 MG; Start 01/15/19 at 20:00 Furosemide (Lasix) 20 mg DAILY PO Last administered on 01/24/19 09:10; Admin Dose 20 MG; Start 01/16/19 at 09:00 Buspirone HCl (Buspar) 10 mg BID PO Last administered on 01/24/19 09:12; Admin Dose 10 MG; Start 01/16/19 at 12:30 Acetaminophen/ Hydrocodone Bitart ([place] ()) 2 tab Q4H PRN PO MODERATE PAIN LEVEL 4-6 Last administered on 01/24/19 06:49; Admin Dose 2 TAB; Start 01/20/19 at 18:30 Amlodipine Besylate (Norvasc) 5 mg BID PO Last administered on 01/24/19 09:12; Admin Dose 5 MG; Start 01/21/19 at 21:00 Ertapenem 1 gm/ Sodium Chloride 100 ml @ 200 mls/hr Q24H IVPB Last administered on 01/24/19 12:25; Admin Dose 200 MLS/HR; Start 01/22/19 at 12:30 Metoprolol Succinate (Toprol Xl) 25 mg HS PO Last administered on 01/23/19 22:49; Admin Dose 25 MG; Start 01/23/19 at 21:00 WERNER KING Jan 24, 2019 13:49
[2019-01-24 14:59] VITALS: BP 142/59; PULSE 72; RESP 18
--- NOTE | 2019-01-24 15:42 | CONS ---
Consult Date/Type/Reason Admit Date/Time Jan 11, 2019 at 09:53 Initial Consult Date 01/12/19 Requesting Provider: KOKO MARLOW MD Date/Time of Note DATE: 01/24/19 TIME: 15:40 Subjective NO acute events - pt off tele - reports pain in legs/back - defer to PMD - CHF better. ROS: No fever, no chills, no nausea, no vomiting, no diarrhea/constipation No recent weight changes No chest pain, no PND, no orthopnea - mild SOB No dizziness, blurred vision No thirst, no heat or cold intolerance Objective Vitals Vital Signs Date Temp Pulse Resp B/P (MAP) Pulse Ox O2 O2 Flow FiO2 Time Delivery Rate 01/24/19 98.0 72 18 142/59 95 Room Air 14:59 (86) 01/24/19 21 07:46 Intake and Output 01/23/19 01/23/19 01/24/19 1515:00 23:00 07:00 IntakeIntake Total 1140 ml 400 ml OutputOutput Total 1000 ml 400 ml BalanceBalance 140 ml 0 ml Exam General: WN/WD/NAD, AOx 3 HEENT: Unicetric/atraumatic/EOMI (follows commands) NECK: JVD elevated, no thyromegaly Lymph: no lymphadenopathy HEART: regular with no S3, II/ systolic murmur at apex, PMI L LUNGS: Coarse sounds ABD: soft, NT, ND, +BS : Intact Neuro: non focal SKIN: chronic changes EXT: 1-2+ edema Results/Medications Result Diagram: 01/24/19 0543 01/24/19 0543 Results 24 hrs Laboratory Tests Test 01/24/19 05:43 White Blood Count 15.5 H Red Blood Count 5.02 Hemoglobin 10.4 L Hematocrit 37.8 L Mean Corpuscular Volume 75.3 L Mean Corpuscular Hemoglobin 20.7 L Mean Corpuscular Hemoglobin Concent 27.5 L Red Cell Distribution Width 23.5 H Platelet Count 295 Mean Platelet Volume Immature Granulocytes % 4.900 H Neutrophils % Segmented Neutrophils % (Manual) 68 Band Neutrophils % (Manual) 3 Lymphocytes % Lymphocytes % (Manual) 3 L Reactive Lymphocytes % (Manual) 1 H Monocytes % Monocytes % (Manual) 20 H Eosinophils % Eosinophils % (Manual) 4 Basophils % Metamyelocytes % (manual) 1 H Nucleated Red Blood Cells % 0.0 Immature Granulocytes # 0.760 H Neutrophils # Neutrophils # (Manual) 10.6 H Band Neutrophils # 0.4 Lymphocytes (Manual) 0.4 L Lymphocytes # Reactive Lymphocytes # 0.1 H Monocytes # Monocytes # (Manual) 3.1 H Eosinophils # Basophils # Metamyelocytes # 0.1 H Nucleated Red Blood Cells # Platelet Estimate NORMAL Platelet Morphology Comment @See below Polychromasia 2+ Hypochromasia 2+ Poikilocytosis 3+ Anisocytosis 2+ Microcytosis 1+ Ovalocytes 1+ Sodium Level 143 Potassium Level 5.1 Chloride Level 111 H Carbon Dioxide Level 21 Anion Gap 11 Blood Urea Nitrogen 31 H Creatinine 1.42 H Est Glomerular Filtrat Rate mL/min 51 L Glucose Level 77 Calcium Level 8.8 Home Meds Reported Medications Thiamine* (Vitamin B-1*) 100 Mg Tablet, 100 MG PO DAILY, TAB 01/11/19 Sodium Bicarbonate* (Sodium Bicarbonate*) 325 Mg Tablet, 325 MG PO TID, TAB 01/11/19 Simethicone* (Mylicon*) 80 Mg Tab, 80 MG PO Q6H, TAB 01/11/19 Albuterol Sulfate (Proair Respiclick) 90 Mcg Aer.pow.ba, 2 PUFFS INHALATION Q4H PRN for SHORTNESS OF BREATH, #1 BOTTLE 01/11/19 Pantoprazole* (Pantoprazole*) 40 Mg Tablet.dr, 40 MG PO AC BREAKFAST, TAB 01/11/19 Oxycodone Hcl* (Oxycontin*) 15 Mg Tab.sr.12h, 15 MG PO Q6H PRN for PAIN, TAB 01/11/19 Oxycodone Hcl* (Oxycontin*) 10 Mg Tab.sr.12h, 10 MG PO Q8H PRN for PAIN, TAB 01/11/19 Allopurinol* (Allopurinol*) 100 Mg Tablet, 100 MG PO DAILY, TAB 01/11/19 Rifaximin* (Xifaxan*) 550 Mg Tablet, 550 MG PO BID, TAB 01/11/19 Ondansetron Hcl* (Zofran*) 4 Mg Tab, 4 MG PO Q4H PRN for NAUSEA AND OR VOMITING, TAB 01/11/19 Metoprolol Tartrate* (Lopressor*) 100 Mg Tablet, 100 MG PO DAILY, #60 TAB HOLD FOR SBP<110 OR HR<60 01/11/19 Levothyroxine Sodium* (Levothyroxine Sodium*) 200 Mcg Tablet, 200 MCG PO BEFORE BREAKFAST, #30 TAB 01/11/19 Levothyroxine Sodium* (Levothyroxine Sodium*) 25 Mcg Tablet, 25 MCG PO BEFORE BREAKFAST, #30 TAB 01/11/19 Ipratropium-Albuterol (Ipratropium-Albuterol) 0.5-3 Mg/3 Ml Ampul.neb, 3 ML INHALATION Q6 PRN for WHEEZING AND SOB, #30 VIAL 01/11/19 Hydrocodone/Acetaminophen ([place] 5-325 Tablet) 1 Each Tablet, 1 EACH PO Q6H PRN for PAIN, TAB 01/11/19 Gabapentin* (Gabapentin*) 100 Mg Capsule, 100 MG PO TID, #90 CAP 01/11/19 Furosemide* (Furosemide*) 40 Mg Tablet, 40 MG PO DAILY, TAB 01/11/19 Folic Acid* (Folic Acid*) 1 Mg Tablet, 1 MG PO DAILY, TAB 01/11/19 Tamsulosin Hcl* (Flomax*) 0.4 Mg Cap.er.24h, 0.4 MG PO HS, CAP 01/11/19 Ferrous Sulfate* (Ferrous Sulfate*) 325 Mg Tabec, 325 MG PO DAILY, TAB 01/11/19 Ertapenem Sodium (Invanz) 1 Gm Vial, 1 GM IM DAILY, VIAL 01/11/19 Epoetin Ghulam (Epogen) 10,000 Units/Ml Soln, 38183 UNITS SC Q TUE,SHARONA,SAT, VIAL 01/11/19 Lactulose* (Lactulose*) 10 Gm/15 Ml Solution, 30 ML PO Q6, ML 01/11/19 Docusate Sodium* (Colace*) 100 Mg Capsule, 200 MG PO QHS, #30 CAP 01/11/19 Dorzolamide-Timolol* (Cosopt*) 2%-0.5% - 10 Ml Soln, 1 DROP BOTH EYES BID, BOTTLE 01/11/19 Budesonide* (Budesonide*) 0.5 Mg/2 Ml Ampul.neb, 0.5 MG INHALATION BID, AMP 01/11/19 Lorazepam* (Lorazepam*) 1 Mg Tablet, 1 MG PO BID PRN for ANXIETY, #30 TAB 01/11/19 Ascorbic Acid (Vitamin C) 500 Mg Tab, 500 MG PO DAILY, TAB 01/11/19 Arformoterol Tartrate (Brovana) 15 Mcg/2 Ml Vial.neb, 15 MCG INHALATION BID, VIAL 01/11/19 Spironolactone* (Aldactone*) 50 Mg Tablet, 50 MG PO DAILY, #30 TAB HOLD FOR SBP<110 01/11/19 Salmeterol Xinaf/Fluticasone* (Advair*) 250-50 Diskus Inhaler, 1 INH INHALATION BID, #1 INHALER 01/11/19 Acetaminophen* (Acetaminophen*) 500 MG Extra Strength Tablet, 500 MG PO Q4H PRN for MILD PAIN LEVEL 1-3, TAB 01/11/19 Medications Current Medications IV Flush (NS 3 ml) 3 ml PER PROTOCOL IV ; Start 01/11/19 at 13:00 Ondansetron HCl (Zofran Inj) 4 mg Q6H PRN IV NAUSEA/VOMITING; Start 01/11/19 at 13:00 Acetaminophen (Tylenol Tab) 650 mg Q6H PRN PO .PAIN 1-3 OR TEMP; Start 01/11/19 at 13:00 Albuterol (Proventil 0.083% (Neb)) 2.5 mg Q6 PRN HHN shortness of breath; Start 01/11/19 at 13:00 Metoprolol Succinate (Toprol Xl) 50 mg DAILY PO Last administered on 01/24/19at 09:12; Admin Dose 50 MG; Start 01/12/19 at 09:00 Lorazepam (Ativan) 0.5 mg Q6H PRN IV ANXIETY Last administered on 01/24/19at 09:24; Admin Dose 0.5 MG; Start 01/11/19 at 23:00 Clonidine (Catapres) 0.1 mg Q6H PRN PO systolic BP > 160 Last administered on 01/12/19at 21:31; Admin Dose 0.1 MG; Start 01/12/19 at 21:00 Levothyroxine Sodium (Synthroid) 225 mcg DAILY@06 PO Last administered on 01/24/19at 06:47; Admin Dose 225 MCG; Start 01/13/19 at 06:00 Allopurinol (Zyloprim) 100 mg DAILY PO Last administered on 01/24/19 09:13; Admin Dose 100 MG; Start 01/13/19 at 09:00 Ascorbic Acid (Vitamin C) 500 mg DAILY PO Last administered on 01/24/19 09:12; Admin Dose 500 MG; Start 01/13/19 at 09:00 Docusate Sodium (Colace) 200 mg QHS PO Last administered on 01/23/19 20:35; Admin Dose 200 MG; Start 01/13/19 at 21:00 Epoetin Ghulam-epbx (RETACRIT(non-esrd)) 10,000 unit Q48H SC Last administered on 01/23/19 17:47; Admin Dose 10,000 UNIT; Start 01/13/19 at 18:00 Ferrous Sulfate (Ferrous Sulfate (Ec)) 325 mg DAILY PO Last administered on 01/24/19 09:13; Admin Dose 325 MG; Start 01/13/19 at 09:00 Folic Acid (Folic Acid) 1 mg DAILY PO Last administered on 01/24/19 09:10; Admin Dose 1 MG; Start 01/13/19 at 09:00 Gabapentin (Neurontin) 100 mg TID PO Last administered on 01/23/19 20:37; Admin Dose 100 MG; Start 01/13/19 at 09:00 Lactulose (Enulose) 20 gm BID PO Last administered on 01/24/19 09:31; Admin Dose 20 GM; Start 01/13/19 at 09:00 Lorazepam (Ativan) 1 mg BID PRN PO ANXIETY Last administered on 01/14/19 20:36; Admin Dose 1 MG; Start 01/13/19 at 06:30 Rifaximin (Xifaxan) 550 mg BID PO Last administered on 01/24/19 09:10; Admin Dose 550 MG; Start 01/13/19 at 09:00 Sodium Bicarbonate (Sodium Bicarbonate Tab) 325 mg TID PO Last administered on 01/24/19 12:22; Admin Dose 325 MG; Start 01/13/19 at 09:00 Tamsulosin HCl (Flomax) 0.4 mg HS PO Last administered on 01/23/19 20:36; Admin Dose 0.4 MG; Start 01/13/19 at 21:00 Thiamine HCl (Vitamin B1) 100 mg DAILY PO Last administered on 01/24/19 09:12; Admin Dose 100 MG; Start 01/13/19 at 09:00 Arformoterol Tartrate (Brovana (Neb)) 2 ml BID RESP THERAPY INH Last administered on 01/24/19 07:49; Admin Dose 2 ML; Start 01/13/19 at 09:00 Budesonide (Pulmicort (Neb)) 0.5 mg Q12H RESP THERAPY INH Last administered on 01/24/19 07:49; Admin Dose 0.5 MG; Start 01/13/19 at 09:00 Dorzolamide/ Timolol (Cosopt Pf Eye Drops) 1 drop BID BOTH EYES Last administered on 01/18/19 09:07; Admin Dose 1 DROP; Start 01/13/19 at 11:30 Nicotine (Nicoderm 21 Mg/ 24hr) 1 patch DAILY TRANSDERM Last administered on 01/24/19 09:14; Admin Dose 1 PATCH; Start 01/14/19 at 09:00 Famotidine (Pepcid) 20 mg Q12 PO Last administered on 01/24/19 09:11; Admin Dose 20 MG; Start 01/13/19 at 21:00 Hydromorphone HCl (Dilaudid) 1.5 mg Q4H PRN IV SEVERE PAIN LEVEL 7-10 Last administered on 01/24/19 12:28; Admin Dose 1.5 MG; Start 01/15/19 at 05:30 Doxycycline Hyclate (Vibramycin) 100 mg 0800,2000 PO Last administered on 01/24/19 09:20; Admin Dose 100 MG; Start 01/15/19 at 20:00 Furosemide (Lasix) 20 mg DAILY PO Last administered on 01/24/19 09:10; Admin Dose 20 MG; Start 01/16/19 at 09:00 Buspirone HCl (Buspar) 10 mg BID PO Last administered on 01/24/19 09:12; Admin Dose 10 MG; Start 01/16/19 at 12:30 Acetaminophen/ Hydrocodone Bitart ([place] (10/325)) 2 tab Q4H PRN PO MODERATE PAIN LEVEL 4-6 Last administered on 01/24/19 13:54; Admin Dose 2 TAB; Start 01/20/19 at 18:30 Amlodipine Besylate (Norvasc) 5 mg BID PO Last administered on 4/20/19at 09:12; Admin Dose 5 MG; Start 01/21/19 at 21:00 Ertapenem 1 gm/ Sodium Chloride 100 ml @ 200 mls/hr Q24H IVPB Last administered on 01/24/19at 12:25; Admin Dose 200 MLS/HR; Start 01/22/19 at 12:30 Metoprolol Succinate (Toprol Xl) 25 mg HS PO Last administered on 01/23/19at 22:49; Admin Dose 25 MG; Start 01/23/19 at 21:00 Assessment/Plan Hospital Course (Demo Recall) 1. Congestive heart failure exacerbation, diastolic, acute on chronic - con't diuresis, better now - con't diuresis, better now - much christiano roapolinarall, con't med rx 2. Hypertension - well controlled, con't med rx Reasonably controlled. 3. Shortness of breath secondary to congestive heart failure exacerbation, diastolic, acute on chronic - improved with therapy. Con't Rx. Better 4. Chronic renal failure - good urine output now. 5. Cirrhosis - on meds. Better fluid satus overall. Lost weight. 6. Ascites, recurrent. 7. Hypothyroidism. 8. History of ETOH abuse- avoid hepatotoxic meds. D/C advised. 9. Anemia - H/H stable - no bleeding now. Stable now. HALEY LIRIANO MD Jan 24, 2019 15:42
--- NOTE | 2019-01-24 17:44 | CONS ---
Consultation Date/Type/Reason Admit Date/Time Jan 11, 2019 at 09:53 Initial Consult Date SUBJECTIVE: Pt is awake, afebrile, looks comfortable. No acute distress. VS: stable T: 98.0 LABS: Reviewed. WBC-15.5 Improving Antimicrobials: Invanz doxycycline Physical examination: GEN: This is a wasted well-developed ,chronically ill-appearing ,elderly man who is in no distress. HENT: Head atraumatic normocephalic, sclera nonicteric. Neck is supple PULM: chest rise symmetrical, breath sounds diminished bases. Heart: S1-S2. Abdomen: soft bowel sounds present. Extremities without BLE edema, mild erythema, no cyanosis. Assessment: 1. Systemic inflammatory response syndrome 2. S/p COPD exacerbation 3. Alcohol abuse 4. Bilateral lower extremities chronic venous stasis 5. Cirrhosis with recurrent ascites 6. Chronic kidney disease 7. CHF 8. Noncompliance Plan: Pt remains stable. Continue current antbx. WBC is gradually improving. No fevers. Requesting Provider: KOKO MARLOW MD Date/Time of Note DATE: 01/24/19 TIME: 17:42 Exam/Review of Systems Exam Vitals Vital Signs Date Temp Pulse Resp B/P (MAP) Pulse Ox O2 O2 Flow FiO2 Time Delivery Rate 01/24/19 98.0 72 18 142/59 95 Room Air 14:59 (86) 01/24/19 21 07:46 Intake and Output 01/23/19 01/23/19 01/24/19 1515:00 23:00 07:00 IntakeIntake Total 1140 ml 400 ml OutputOutput Total 1000 ml 400 ml BalanceBalance 140 ml 0 ml Results Result Diagram: 01/24/19 0543 01/24/19 0543 Results 24hrs Laboratory Tests Test 01/24/19 05:43 White Blood Count 15.5 H Red Blood Count 5.02 Hemoglobin 10.4 L Hematocrit 37.8 L Mean Corpuscular Volume 75.3 L Mean Corpuscular Hemoglobin 20.7 L Mean Corpuscular Hemoglobin Concent 27.5 L Red Cell Distribution Width 23.5 H Platelet Count 295 Mean Platelet Volume Immature Granulocytes % 4.900 H Neutrophils % Segmented Neutrophils % (Manual) 68 Band Neutrophils % (Manual) 3 Lymphocytes % Lymphocytes % (Manual) 3 L Reactive Lymphocytes % (Manual) 1 H Monocytes % Monocytes % (Manual) 20 H Eosinophils % Eosinophils % (Manual) 4 Basophils % Metamyelocytes % (manual) 1 H Nucleated Red Blood Cells % 0.0 Immature Granulocytes # 0.760 H Neutrophils # Neutrophils # (Manual) 10.6 H Band Neutrophils # 0.4 Lymphocytes (Manual) 0.4 L Lymphocytes # Reactive Lymphocytes # 0.1 H Monocytes # Monocytes # (Manual) 3.1 H Eosinophils # Basophils # Metamyelocytes # 0.1 H Nucleated Red Blood Cells # Platelet Estimate NORMAL Platelet Morphology Comment @See below Polychromasia 2+ Hypochromasia 2+ Poikilocytosis 3+ Anisocytosis 2+ Microcytosis 1+ Ovalocytes 1+ Sodium Level 143 Potassium Level 5.1 Chloride Level 111 H Carbon Dioxide Level 21 Anion Gap 11 Blood Urea Nitrogen 31 H Creatinine 1.42 H Est Glomerular Filtrat Rate mL/min 51 L Glucose Level 77 Calcium Level 8.8 Medications Medication Current Medications IV Flush (NS 3 ml) 3 ml PER PROTOCOL IV ; Start 01/11/19 at 13:00 Ondansetron HCl (Zofran Inj) 4 mg Q6H PRN IV NAUSEA/VOMITING; Start 01/11/19 at 13:00 Acetaminophen (Tylenol Tab) 650 mg Q6H PRN PO .PAIN 1-3 OR TEMP; Start 01/11/19 at 13:00 Albuterol (Proventil 0.083% (Neb)) 2.5 mg Q6 PRN HHN shortness of breath; Start 01/11/19 at 13:00 Metoprolol Succinate (Toprol Xl) 50 mg DAILY PO Last administered on 01/24/19at 09:12; Admin Dose 50 MG; Start 01/12/19 at 09:00 Lorazepam (Ativan) 0.5 mg Q6H PRN IV ANXIETY Last administered on 01/24/19at 15:41; Admin Dose 0.5 MG; Start 01/11/19 at 23:00 Clonidine (Catapres) 0.1 mg Q6H PRN PO systolic BP > 160 Last administered on 01/12/19at 21:31; Admin Dose 0.1 MG; Start 01/12/19 at 21:00 Levothyroxine Sodium (Synthroid) 225 mcg DAILY@06 PO Last administered on 01/24/19at 06:47; Admin Dose 225 MCG; Start 01/13/19 at 06:00 Allopurinol (Zyloprim) 100 mg DAILY PO Last administered on 01/24/19 09:13; Admin Dose 100 MG; Start 01/13/19 at 09:00 Ascorbic Acid (Vitamin C) 500 mg DAILY PO Last administered on 01/24/19 09:12; Admin Dose 500 MG; Start 01/13/19 at 09:00 Docusate Sodium (Colace) 200 mg QHS PO Last administered on 01/23/19 20:35; Admin Dose 200 MG; Start 01/13/19 at 21:00 Epoetin Ghulam-epbx (RETACRIT(non-esrd)) 10,000 unit Q48H SC Last administered on 01/23/19 17:47; Admin Dose 10,000 UNIT; Start 01/13/19 at 18:00 Ferrous Sulfate (Ferrous Sulfate (Ec)) 325 mg DAILY PO Last administered on 01/24/19 09:13; Admin Dose 325 MG; Start 01/13/19 at 09:00 Folic Acid (Folic Acid) 1 mg DAILY PO Last administered on 01/24/19 09:10; Admin Dose 1 MG; Start 01/13/19 at 09:00 Gabapentin (Neurontin) 100 mg TID PO Last administered on 01/23/19 20:37; Admin Dose 100 MG; Start 01/13/19 at 09:00 Lactulose (Enulose) 20 gm BID PO Last administered on 01/24/19 09:31; Admin Dose 20 GM; Start 01/13/19 at 09:00 Lorazepam (Ativan) 1 mg BID PRN PO ANXIETY Last administered on 01/14/19 20:36; Admin Dose 1 MG; Start 01/13/19 at 06:30 Rifaximin (Xifaxan) 550 mg BID PO Last administered on 01/24/19 09:10; Admin Dose 550 MG; Start 01/13/19 at 09:00 Sodium Bicarbonate (Sodium Bicarbonate Tab) 325 mg TID PO Last administered on 01/24/19 12:22; Admin Dose 325 MG; Start 01/13/19 at 09:00 Tamsulosin HCl (Flomax) 0.4 mg HS PO Last administered on 01/23/19 20:36; Admin Dose 0.4 MG; Start 01/13/19 at 21:00 Thiamine HCl (Vitamin B1) 100 mg DAILY PO Last administered on 01/24/19 09:12; Admin Dose 100 MG; Start 01/13/19 at 09:00 Arformoterol Tartrate (Brovana (Neb)) 2 ml BID RESP THERAPY INH Last adm inistered on 01/24/19 07:49; Admin Dose 2 ML; Start 01/13/19 at 09:00 Budesonide (Pulmicort (Neb)) 0.5 mg Q12H RESP THERAPY INH Last administered on 01/24/19 07:49; Admin Dose 0.5 MG; Start 01/13/19 at 09:00 Dorzolamide/ Timolol (Cosopt Pf Eye Drops) 1 drop BID BOTH EYES Last administered on 01/18/19 09:07; Admin Dose 1 DROP; Start 01/13/19 at 11:30 Nicotine (Nicoderm 21 Mg/ 24hr) 1 patch DAILY TRANSDERM Last administered on 01/24/19 09:14; Admin Dose 1 PATCH; Start 01/14/19 at 09:00 Famotidine (Pepcid) 20 mg Q12 PO Last administered on 01/24/19 09:11; Admin Dose 20 MG; Start 01/13/19 at 21:00 Hydromorphone HCl (Dilaudid) 1.5 mg Q4H PRN IV SEVERE PAIN LEVEL 7-10 Last administered on 01/24/19 17:24; Admin Dose 1.5 MG; Start 01/15/19 at 05:30 Doxycycline Hyclate (Vibramycin) 100 mg 0800,2000 PO Last administered on 01/24/19 09:20; Admin Dose 100 MG; Start 01/15/19 at 20:00 Furosemide (Lasix) 20 mg DAILY PO Last administered on 01/24/19 09:10; Admin Dose 20 MG; Start 01/16/19 at 09:00 Buspirone HCl (Buspar) 10 mg BID PO Last administered on 01/24/19 09:12; Admin Dose 10 MG; Start 01/16/19 at 12:30 Acetaminophen/ Hydrocodone Bitart ([place] (10/325)) 2 tab Q4H PRN PO MODERATE PAIN LEVEL 4-6 Last administered on 01/24/19 13:54; Admin Dose 2 TAB; Start 01/20/19 at 18:30 Amlodipine Besylate (Norvasc) 5 mg BID PO Last administered on 01/24/19at 09:12; Admin Dose 5 MG; Start 01/21/19 at 21:00 Ertapenem 1 gm/ Sodium Chloride 100 ml @ 200 mls/hr Q24H IVPB Last administer ed on 01/24/19at 12:25; Admin Dose 200 MLS/HR; Start 01/22/19 at 12:30 Metoprolol Succinate (Toprol Xl) 25 mg HS PO Last administered on 01/23/19at 22:49; Admin Dose 25 MG; Start 01/23/19 at 21:00 SARAH GUILLEN Jan 24, 2019 17:44
--- NOTE | 2019-01-24 17:45 | CONS ---
Assessment/Plan Assessment/Plan Assessment/Plan (Daily) 1. acute on chronic renal failure due to Type II hepatorenal syndrome 2. SIRS 3. anemia of CKD 5. Decompensated Liver cirrhosis with Symptomatic ascites 6. H/O HTN 7. h/o Liver cirrhosis with ascites 8. H/o Diastolic CHF 9. Bilateral LE chronic venous stasis 10.H/o BPH on Flomax 11. Acute hyperkalemia - resolved Plan: Continue IV abx Ertapenem and PO Doxycycline as per ID , renally dose all abx , monitor electrolytes and replace as needed, BUN/Cr- tended down to 31/1.42 K 5.1- s/p Kayexalate- stop Aldactone due to hyperkalemia Continue Lasix to 20mg po daily, , , Toprol Xl 50mg po daily , amlodipine 5 mg po daily on Sodium bicarbonate 325mg PO TID Flomax 0.4mg po daily for BPH will follow up Patient seen inn collaboration with Dr Leung. dw staff Consultation Date/Type/Reason Admit Date/Time Jan 11, 2019 at 09:53 Initial Consult Date 01/12/19 Type of Consult NEPHROLOGY Reason for Consultation TRENT on CKD Requesting Provider: KOKO MARLOW MD Date/Time of Note DATE: 01/24/19 TIME: 17:45 24 HR Interval Summary Constitutional: requiring O2 Detailed Summary Eyes: no complaints ENT: no complaints Respiratory: no complaints Cardiovascular: no complaints Gastrointestinal: no complaints Genitourinary: no complaints Musculoskeletal: other (general weakness) Skin: no complaints Neurologic: no complaints Endocrine: no complaints Psychological: nl mood/affect Exam/Review of Systems Exam Vitals Vital Signs Date Temp Pulse Resp B/P (MAP) Pulse Ox O2 O2 Flow FiO2 Time Delivery Rate 01/24/19 98.0 72 18 142/59 95 Room Air 14:59 (86) 01/24/19 21 07:46 Intake and Output 01/23/19 01/23/19 01/24/19 1515:00 23:00 07:00 IntakeIntake Total 1140 ml 400 ml OutputOutput Total 1000 ml 400 ml BalanceBalance 140 ml 0 ml Constitutional: alert, well developed, obese Psych: nl mood/affect Eyes: nl lids, nl sclera ENMT: nl external ears & nose Neck: non-tender Respiratory: diminished breath sounds (at base billaterally) Cardiovascular: nl pulses, other (s1s2) Gastrointestinal: soft, nl liver, spleen Musculoskeletal: muscle weakness Extremities: edema Neurological: nl speech, other (alert/reponsive) Skin: other (chronic skin changes BLE) Lymph: nontender Results Result Diagram: 01/24/19 0543 01/24/19 0543 Results 24hrs Laboratory Tests Test 01/24/19 05:43 White Blood Count 15.5 H Red Blood Count 5.02 Hemoglobin 10.4 L Hematocrit 37.8 L Mean Corpuscular Volume 75.3 L Mean Corpuscular Hemoglobin 20.7 L Mean Corpuscular Hemoglobin Concent 27.5 L Red Cell Distribution Width 23.5 H Platelet Count 295 Mean Platelet Volume Immature Granulocytes % 4.900 H Neutrophils % Segmented Neutrophils % (Manual) 68 Band Neutrophils % (Manual) 3 Lymphocytes % Lymphocytes % (Manual) 3 L Reactive Lymphocytes % (Manual) 1 H Monocytes % Monocytes % (Manual) 20 H Eosinophils % Eosinophils % (Manual) 4 Basophils % Metamyelocytes % (manual) 1 H Nucleated Red Blood Cells % 0.0 Immature Granulocytes # 0.760 H Neutrophils # Neutrophils # (Manual) 10.6 H Band Neutrophils # 0.4 Lymphocytes (Manual) 0.4 L Lymphocytes # Reactive Lymphocytes # 0.1 H Monocytes # Monocytes # (Manual) 3.1 H Eosinophils # Basophils # Metamyelocytes # 0.1 H Nucleated Red Blood Cells # Platelet Estimate NORMAL Platelet Morphology Comment @See below Polychromasia 2+ Hypochromasia 2+ Poikilocytosis 3+ Anisocytosis 2+ Microcytosis 1+ Ovalocytes 1+ Sodium Level 143 Potassium Level 5.1 Chloride Level 111 H Carbon Dioxide Level 21 Anion Gap 11 Blood Urea Nitrogen 31 H Creatinine 1.42 H Est Glomerular Filtrat Rate mL/min 51 L Glucose Level 77 Calcium Level 8.8 Medications Medication Current Medications IV Flush (NS 3 ml) 3 ml PER PROTOCOL IV ; Start 01/11/19 at 13:00 Ondansetron HCl (Zofran Inj) 4 mg Q6H PRN IV NAUSEA/VOMITING; Start 01/11/19 at 13:00 Acetaminophen (Tylenol Tab) 650 mg Q6H PRN PO .PAIN 1-3 OR TEMP; Start 01/11/19 at 13:00 Albuterol (Proventil 0.083% (Neb)) 2.5 mg Q6 PRN HHN shortness of breath; Start 01/11/19 at 13:00 Metoprolol Succinate (Toprol Xl) 50 mg DAILY PO Last administered on 01/24/19 09:12; Admin Dose 50 MG; Start 01/12/19 at 09:00 Lorazepam (Ativan) 0.5 mg Q6H PRN IV ANXIETY Last administered on 01/24/19 15:41; Admin Dose 0.5 MG; Start 01/11/19 at 23:00 Clonidine (Catapres) 0.1 mg Q6H PRN PO systolic BP > 160 Last administered on 01/12/19 21:31; Admin Dose 0.1 MG; Start 01/12/19 at 21:00 Levothyroxine Sodium (Synthroid) 225 mcg DAILY@06 PO Last administered on 01/24/19 06:47; Admin Dose 225 MCG; Start 01/13/19 at 06:00 Allopurinol (Zyloprim) 100 mg DAILY PO Last administered on 01/24/19 09:13; Admin Dose 100 MG; Start 01/13/19 at 09:00 Ascorbic Acid (Vitamin C) 500 mg DAILY PO Last administered on 01/24/19 09:12; Admin Dose 500 MG; Start 01/13/19 at 09:00 Docusate Sodium (Colace) 200 mg QHS PO Last administered on 01/23/19 20:35; Admin Dose 200 MG; Start 01/13/19 at 21:00 Epoetin Ghulam-epbx (RETACRIT(non-esrd)) 10,000 unit Q48H SC Last administered on 01/23/19 17:47; Admin Dose 10,000 UNIT; Start 01/13/19 at 18:00 Ferrous Sulfate (Ferrous Sulfate (Ec)) 325 mg DAILY PO Last administered on 01/24/19 09:13; Admin Dose 325 MG; Start 01/13/19 at 09:00 Folic Acid (Folic Acid) 1 mg DAILY PO Last administered on 01/24/19 09:10; Admin Dose 1 MG; Start 01/13/19 at 09:00 Gabapentin (Neurontin) 100 mg TID PO Last administered on 01/23/19 20:37; Admin Dose 100 MG; Start 01/13/19 at 09:00 Lactulose (Enulose) 20 gm BID PO Last administered on 01/24/19 09:31; Admin Dose 20 GM; Start 01/13/19 at 09:00 Lorazepam (Ativan) 1 mg BID PRN PO ANXIETY Last administered on 01/14/19 20:36; Admin Dose 1 MG; Start 01/13/19 at 06:30 Rifaximin (Xifaxan) 550 mg BID PO Last administered on 01/24/19 09:10; Admin Dose 550 MG; Start 01/13/19 at 09:00 Sodium Bicarbonate (Sodium Bicarbonate Tab) 325 mg TID PO Last administered on 01/24/19 12:22; Admin Dose 325 MG; Start 01/13/19 at 09:00 Tamsulosin HCl (Flomax) 0.4 mg HS PO Last administered on 01/23/19 20:36; Admin Dose 0.4 MG; Start 01/13/19 at 21:00 Thiamine HCl (Vitamin B1) 100 mg DAILY PO Last administered on 01/24/19 09:12; Admin Dose 100 MG; Start 01/13/19 at 09:00 Arformoterol Tartrate (Brovana (Neb)) 2 ml BID RESP THERAPY INH Last administered on 01/24/19 07:49; Admin Dose 2 ML; Start 01/13/19 at 09:00 Budesonide (Pulmicort (Neb)) 0.5 mg Q12H RESP THERAPY INH Last administered on 01/24/19 07:49; Admin Dose 0.5 MG; Start 01/13/19 at 09:00 Dorzolamide/ Timolol (Cosopt Pf Eye Drops) 1 drop BID BOTH EYES Last administered on 01/18/19 09:07; Admin Dose 1 DROP; Start 01/13/19 at 11:30 Nicotine (Nicoderm 21 Mg/ 24hr) 1 patch DAILY TRANSDERM Last administered on 01/24/19 09:14; Admin Dose 1 PATCH; Start 01/14/19 at 09:00 Famotidine (Pepcid) 20 mg Q12 PO Last administered on 01/24/19 09:11; Admin Dose 20 MG; Start 01/13/19 at 21:00 Hydromorphone HCl (Dilaudid) 1.5 mg Q4H PRN IV SEVERE PAIN LEVEL 7-10 Last administered on 01/24/19 17:24; Admin Dose 1.5 MG; Start 01/15/19 at 05:30 Doxycycline Hyclate (Vibramycin) 100 mg 0800,2000 PO Last administered on 01/24/19 09:20; Admin Dose 100 MG; Start 01/15/19 at 20:00 Furosemide (Lasix) 20 mg DAILY PO Last administered on 01/24/19 09:10; Admin Dose 20 MG; Start 01/16/19 at 09:00 Buspirone HCl (Buspar) 10 mg BID PO Last administered on 01/24/19 09:12; Admin Dose 10 MG; Start 01/16/19 at 12:30 Acetaminophen/ Hydrocodone Bitart (Renovo (10325)) 2 tab Q4H PRN PO MODERATE PAIN LEVEL 4-6 Last administered on 01/24/19 13:54; Admin Dose 2 TAB; Start 01/20/19 at 18:30 Amlodipine Besylate (Norvasc) 5 mg BID PO Last administered on 01/24/19 09:12; Admin Dose 5 MG; Start 01/21/19 at 21:00 Ertapenem 1 gm/ Sodium Chloride 100 ml @ 200 mls/hr Q24H IVPB Last a dministered on 01/24/19 12:25; Admin Dose 200 MLS/HR; Start 01/22/19 at 12:30 Metoprolol Succinate (Toprol Xl) 25 mg HS PO Last administered on 01/23/19 22:49; Admin Dose 25 MG; Start 01/23/19 at 21:00 GO LAMBERT Jan 24, 2019 17:45
[2019-01-24 20:00] VITALS: BP 152/66; PULSE 67; RESP 18
[2019-01-24] MEDS: TAMSULOSIN (SR) 0.4 MG CAP PO SCH (20:22)
[2019-01-24] MEDS: DOCUSATE SODIUM 100 MG CAP PO SCH (20:22)
[2019-01-24] MEDS: METOPROLOL (XL) 25 MG TAB PO SCH (20:23)
[2019-01-25 02:00] VITALS: BP 175/80; PULSE 68; RESP 18
[2019-01-25] MEDS: HYDROmorphONE 1 MG/ML SYG IV PRN ×3 (02:15→10:50)
[2019-01-25 02:17] VITALS: BP 156/72; PULSE 68
[2019-01-25] MEDS: HYDROCODONE/APAP (10/325) TAB PO PRN ×4 (03:30→23:22)
[2019-01-25] MEDS: LORAZEPAM 2 MG INJ IV PRN ×3 (04:29→18:28)
[2019-01-25] MEDS: LEVOTHYROXINE 75 MCG TAB PO SCH (06:45)
[2019-01-25] MEDS: BUDESONIDE (NEB) 0.5MG/2ML AMP INH SCH ×2 (08:35→19:54)
[2019-01-25] MEDS: ARFORMOTEROL TARTRATE 15MCG/2 ML AMP INH SCH ×2 (08:35→19:54)
[2019-01-25 08:38] VITALS: BP 152/68; PULSE 68; RESP 18
[2019-01-25] MEDS: FERROUS SULFATE (EC) 325 MG TAB PO SCH (08:57)
[2019-01-25] MEDS: RIFAXIMIN 550 MG TAB PO SCH ×2 (08:57→21:58)
[2019-01-25] MEDS: ALLOPURINOL 100 MG TAB PO SCH (08:57)
[2019-01-25] MEDS: FAMOTIDINE 20 MG TAB PO SCH ×2 (08:57→20:47)
[2019-01-25] MEDS: DOXYCYCLINE 100 MG TAB PO SCH ×2 (08:57→20:46)
[2019-01-25] MEDS: BUSPIRONE 10 MG TAB PO SCH ×2 (08:57→20:47)
[2019-01-25] MEDS: ASCORBIC ACID 500 MG TAB PO SCH (08:57)
[2019-01-25] MEDS: THIAMINE 100 MG TAB PO SCH (08:57)
[2019-01-25] MEDS: FOLIC ACID 1 MG TAB PO SCH (08:58)
[2019-01-25] MEDS: FUROSEMIDE 20 MG TAB PO SCH (08:59)
[2019-01-25] MEDS: NA BICARBONATE 650 MG TAB PO SCH ×3 (08:59→20:47)
[2019-01-25] MEDS: METOPROLOL (XL) 50 MG TAB PO SCH (08:59)
[2019-01-25] MEDS: AMLODIPINE 5 MG TAB PO SCH ×2 (08:59→20:47)
[2019-01-25] MEDS: LACTULOSE 30ML CUP PO SCH ×3 (09:00→20:46)
[2019-01-25] MEDS: GABAPENTIN 100 MG CAP PO SCH ×3 (09:00→20:54)
[2019-01-25] MEDS: DORZOLAMIDE/TIMOLOL/PF 0.2 ML DROPERETTE BOTH EYES SCH ×2 (09:00→20:48)
[2019-01-25] MEDS: NICOTINE (21 MG/24 HR) PATCH TRANSDERM SCH (09:00)
--- NOTE | 2019-01-25 11:58 | CONS ---
Consultation Date/Type/Reason Admit Date/Time Jan 11, 2019 at 09:53 Initial Consult Date 01/12/19 Type of Consult Cardiology Requesting Provider: KOKO MARLOW MD Date/Time of Note DATE: 01/25/19 TIME: 11:58 24 HR Interval Summary Free Text/Dictation VS reviewed - stable Exam/Review of Systems Vital Signs Vitals Vital Signs Date Temp Pulse Resp B/P (MAP) Pulse Ox O2 O2 Flow FiO2 Time Delivery Rate 01/25/19 98.3 68 18 152/68 94 Room Air 08:38 (96) 01/25/19 08:35 Intake and Output 01/24/19 01/24/19 01/25/19 1515:00 23:00 07:00 IntakeIntake Total 600 ml 400 ml 240 ml OutputOutput Total 700 ml 200 ml 800 ml BalanceBalance -100 ml 200 ml -560 ml Labs Result Diagram: 01/25/19 0534 01/25/19 0534 Results 24hrs Laboratory Tests Test 01/25/19 05:34 White Blood Count 17.1 H Red Blood Count 5.06 Hemoglobin 10.7 L Hematocrit 38.6 L Mean Corpuscular Volume 76.3 L Mean Corpuscular Hemoglobin 21.1 L Mean Corpuscular Hemoglobin Concent 27.7 L Red Cell Distribution Width 22.9 H Platelet Count 323 Mean Platelet Volume Immature Granulocytes % 4.400 H Neutrophils % 64.9 Lymphocytes % 8.4 L Monocytes % 15.8 H Eosinophils % 5.0 Basophils % 1.5 Nucleated Red Blood Cells % 0.0 Immature Granulocytes # 0.750 H Neutrophils # 11.1 H Lymphocytes # 1.4 Monocytes # 2.7 H Eosinophils # 0.9 H Basophils # 0.3 H Nucleated Red Blood Cells # 0.0 Sodium Level 142 Potassium Level 5.3 H Chloride Level 110 Carbon Dioxide Level 19 L Anion Gap 13 Blood Urea Nitrogen 30 H Creatinine 1.45 H Est Glomerular Filtrat Rate mL/min 49 L Glucose Level 106 Calcium Level 8.7 Medications Medications Current Medications IV Flush (NS 3 ml) 3 ml PER PROTOCOL IV ; Start 01/11/19 at 13:00 Ondansetron HCl (Zofran Inj) 4 mg Q6H PRN IV NAUSEA/VOMITING; Start 01/11/19 at 13:00 Acetaminophen (Tylenol Tab) 650 mg Q6H PRN PO .PAIN 1-3 OR TEMP; Start 01/11/19 at 13:00 Albuterol (Proventil 0.083% (Neb)) 2.5 mg Q6 PRN HHN shortness of breath; Start 01/11/19 at 13:00 Metoprolol Succinate (Toprol Xl) 50 mg DAILY PO Last administered on 01/25/19 08:59; Admin Dose 50 MG; Start 01/12/19 at 09:00 Lorazepam (Ativan) 0.5 mg Q6H PRN IV ANXIETY Last administered on 01/25/19 04:29; Admin Dose 0.5 MG; Start 01/11/19 at 23:00 Clonidine (Catapres) 0.1 mg Q6H PRN PO systolic BP > 160 Last administered on 01/12/19 21:31; Admin Dose 0.1 MG; Start 01/12/19 at 21:00 Levothyroxine Sodium (Synthroid) 225 mcg DAILY@06 PO Last administered on 01/25/19 06:45; Admin Dose 225 MCG; Start 01/13/19 at 06:00 Allopurinol (Zyloprim) 100 mg DAILY PO Last administered on 01/25/19 08:57; Admin Dose 100 MG; Start 01/13/19 at 09:00 Ascorbic Acid (Vitamin C) 500 mg DAILY PO Last administered on 01/25/19 08:57; Admin Dose 500 MG; Start 01/13/19 at 09:00 Docusate Sodium (Colace) 200 mg QHS PO Last administered on 01/24/19 20:22; Admin Dose 200 MG; Start 01/13/19 at 21:00 Epoetin Ghulam-epbx (RETACRIT(non-esrd)) 10,000 unit Q48H SC Last administered on 01/23/19 17:47; Admin Dose 10,000 UNIT; Start 01/13/19 at 18:00 Ferrous Sulfate (Ferrous Sulfate (Ec)) 325 mg DAILY PO Last administered on 01/25/19 08:57; Admin Dose 325 MG; Start 01/13/19 at 09:00 Folic Acid (Folic Acid) 1 mg DAILY PO Last administered on 01/25/19 08:58; Admin Dose 1 MG; Start 01/13/19 at 09:00 Gabapentin (Neurontin) 100 mg TID PO Last administered on 01/23/19 20:37; Admin Dose 100 MG; Start 01/13/19 at 09:00 Lactulose (Enulose) 20 gm BID PO Last administered on 01/25/19 09:42; Admin Dose 20 GM; Start 01/13/19 at 09:00 Lorazepam (Ativan) 1 mg BID PRN PO ANXIETY Last administered on 01/14/19 20:36; Admin Dose 1 MG; Start 01/13/19 at 06:30 Rifaximin (Xifaxan) 550 mg BID PO Last administered on 01/25/19 08:57; Admin Dose 550 MG; Start 01/13/19 at 09:00 Sodium Bicarbonate (Sodium Bicarbonate Tab) 325 mg TID PO Last administered on 01/25/19 08:59; Admin Dose 325 MG; Start 01/13/19 at 09:00 Tamsulosin HCl (Flomax) 0.4 mg HS PO Last administered on 01/24/19 20:22; Ad min Dose 0.4 MG; Start 01/13/19 at 21:00 Thiamine HCl (Vitamin B1) 100 mg DAILY PO Last administered on 01/25/19 08:57; Admin Dose 100 MG; Start 01/13/19 at 09:00 Arformoterol Tartrate (Brovana (Neb)) 2 ml BID RESP THERAPY INH Last administered on 01/25/19 08:35; Admin Dose 2 ML; Start 01/13/19 at 09:00 Budesonide (Pulmicort (Neb)) 0.5 mg Q12H RESP THERAPY INH Last administered on 01/25/19 08:35; Admin Dose 0.5 MG; Start 01/13/19 at 09:00 Dorzolamide/ Timolol (Cosopt Pf Eye Drops) 1 drop BID BOTH EYES Last administered on 01/18/19 09:07; Admin Dose 1 DROP; Start 01/13/19 at 11:30 Nicotine (Nicoderm 21 Mg/ 24hr) 1 patch DAILY TRANSDERM Last administered on 01/25/19 09:00; Admin Dose 1 PATCH; Start 01/14/19 at 09:00 Famotidine (Pepcid) 20 mg Q12 PO Last administered on 01/25/19 08:57; Admin Dose 20 MG; Start 01/13/19 at 21:00 Hydromorphone HCl (Dilaudid) 1.5 mg Q4H PRN IV SEVERE PAIN LEVEL 7-10 Last administered on 01/25/19 10:50; Admin Dose 1.5 MG; Start 01/15/19 at 05:30 Doxycycline Hyclate (Vibramycin) 100 mg 0800,2000 PO Last administered on 01/25/19 08:57; Admin Dose 100 MG; Start 01/15/19 at 20:00 Furosemide (Lasix) 20 mg DAILY PO Last administered on 01/25/19 08:59; Admin Dose 20 MG; Start 01/16/19 at 09:00 Buspirone HCl (Buspar) 10 mg BID PO Last administered on 01/25/19 08:57; Admin Dose 10 MG; Start 01/16/19 at 12:30 Acetaminophen/ Hydrocodone Bitart ([place] (10/325)) 2 tab Q4H PRN PO MODERATE PAIN LEVEL 4-6 Last administered on 01/25/19 08:54; Admin Dose 2 TAB; Start 01/20/19 at 18:30 Amlodipine Besylate (Norvasc) 5 mg BID PO Last administered on 01/25/19 08:59; Admin Dose 5 MG; Start 01/21/19 at 21:00 Ertapenem 1 gm/ Sodium Chloride 100 ml @ 200 mls/hr Q24H IVPB Last administered on 01/24/19 12:25; Admin Dose 200 MLS/HR; Start 01/22/19 at 12:30 Metoprolol Succinate (Toprol Xl) 25 mg HS PO Last administered on 01/24/19 20:23; Admin Dose 25 MG; Start 01/23/19 at 21:00 HALEY LIRIANO MD Jan 25, 2019 11:58
--- NOTE | 2019-01-25 13:29 | PN ---
Date/Time of Note Date/Time of Note DATE: 01/25/19 TIME: 13:27 Assessment/Plan VTE Prophylaxis Risk score (from [facility] [place], [place])>0 risk: 5 SCD applied (from [facility] [place], [place]): No SCD contraindicated: other Pharmacological prophylaxis: LMWH Lines/Catheters IV [facility] Type [facility]from [facility] Saline Lock Urinary Cath still in place: No Assessment/Plan Hospital Course -Shortness of breath, rule out acute coronary syndrome, cardiac enzymes are negative x3. -Acute on chronic diastolic congestive heart failure. Continue Lasix. Dr. Foley is following in cardiology consultation. -COPD exacerbation, continue bronchodilators, steroids, and oxygen supplementation. -Anemia, Dr. Mayes is following in gastroenterology consultation. -Alcoholic liver cirrhosis -Acute kidney injury on chronic kidney disease. Dr. Leung is following in nephrology consultation. -Bilateral lower extremities chronic venous stasis -Left foot plantar ulcer. Dr. Younger is following in podiatry consultation. -Obesity -Nicotine dependence, continue nicotine patch, cessation is strongly advised. -Ongoing alcohol use, cessation is strongly advised. -Poor medical compliance Result Diagram: 01/25/19 0534 01/25/19 0534 Results 24hrs Laboratory Tests Test 01/25/19 05:34 White Blood Count 17.1 H Red Blood Count 5.06 Hemoglobin 10.7 L Hematocrit 38.6 L Mean Corpuscular Volume 76.3 L Mean Corpuscular Hemoglobin 21.1 L Mean Corpuscular Hemoglobin Concent 27.7 L Red Cell Distribution Width 22.9 H Platelet Count 323 Mean Platelet Volume Immature Granulocytes % 4.400 H Neutrophils % 64.9 Lymphocytes % 8.4 L Monocytes % 15.8 H Eosinophils % 5.0 Basophils % 1.5 Nucleated Red Blood Cells % 0.0 Immature Granulocytes # 0.750 H Neutrophils # 11.1 H Lymphocytes # 1.4 Monocytes # 2.7 H Eosinophils # 0.9 H Basophils # 0.3 H Nucleated Red Blood Cells # 0.0 Sodium Level 142 Potassium Level 5.3 H Chloride Level 110 Carbon Dioxide Level 19 L Anion Gap 13 Blood Urea Nitrogen 30 H Creatinine 1.45 H Est Glomerular Filtrat Rate mL/min 49 L Glucose Level 106 Calcium Level 8.7 Subjective 24 Hr Interval Summary Free Text/Dictation Patient is agitated about dosage of pain medication Exam/Review of Systems Exam Vitals Vital Signs Date Temp Pulse Resp B/P (MAP) Pulse Ox O2 O2 Flow FiO2 Time Delivery Rate 01/25/19 98.3 68 18 152/68 94 Room Air 08:38 (96) 01/25/19 21 08:35 Intake and Output 01/24/19 01/24/19 01/25/19 1515:00 23:00 07:00 IntakeIntake Total 600 ml 400 ml 240 ml OutputOutput Total 700 ml 200 ml 800 ml BalanceBalance -100 ml 200 ml -560 ml Constitutional: well developed Head: normocephalic, atraumatic Neck: supple Respiratory: diminished breath sounds Cardiovascular: regular rate and rhythm Gastrointestinal: soft, non-tender Extremities: normal pulses Results Results 24hrs Laboratory Tests Test 01/25/19 05:34 White Blood Count 17.1 H Red Blood Count 5.06 Hemoglobin 10.7 L Hematocrit 38.6 L Mean Corpuscular Volume 76.3 L Mean Corpuscular Hemoglobin 21.1 L Mean Corpuscular Hemoglobin Concent 27.7 L Red Cell Distribution Width 22.9 H Platelet Count 323 Mean Platelet Volume Immature Granulocytes % 4.400 H Neutrophils % 64.9 Lymphocytes % 8.4 L Monocytes % 15.8 H Eosinophils % 5.0 Basophils % 1.5 Nucleated Red Blood Cells % 0.0 Immature Granulocytes # 0.750 H Neutrophils # 11.1 H Lymphocytes # 1.4 Monocytes # 2.7 H Eosinophils # 0.9 H Basophils # 0.3 H Nucleated Red Blood Cells # 0.0 Sodium Level 142 Potassium Level 5.3 H Chloride Level 110 Carbon Dioxide Level 19 L Anion Gap 13 Blood Urea Nitrogen 30 H Creatinine 1.45 H Est Glomerular Filtrat Rate mL/min 49 L Glucose Level 106 Calcium Level 8.7 Medications Medication Current Medications IV Flush (NS 3 ml) 3 ml PER PROTOCOL IV ; Start 01/11/19 at 13:00 Ondansetron HCl (Zofran Inj) 4 mg Q6H PRN IV NAUSEA/VOMITING; Start 01/11/19 at 13:00 Acetaminophen (Tylenol Tab) 650 mg Q6H PRN PO .PAIN 1-3 OR TEMP; Start 01/11/19 at 13:00 Albuterol (Proventil 0.083% (Neb)) 2.5 mg Q6 PRN HHN shortness of breath; Start 01/11/19 at 13:00 Metoprolol Succinate (Toprol Xl) 50 mg DAILY PO Last administered on 01/25/19 08:59; Admin Dose 50 MG; Start 01/12/19 at 09:00 Lorazepam (Ativan) 0.5 mg Q6H PRN IV ANXIETY Last administered on 01/25/19 12:23; Admin Dose 0.5 MG; Start 01/11/19 at 23:00 Clonidine (Catapres) 0.1 mg Q6H PRN PO systolic BP > 160 Last administered on 01/12/19 21:31; Admin Dose 0.1 MG; Start 01/12/19 at 21:00 Levothyroxine Sodium (Synthroid) 225 mcg DAILY@06 PO Last administered on 01/25/19 06:45; Admin Dose 225 MCG; Start 01/13/19 at 06:00 Allopurinol (Zyloprim) 100 mg DAILY PO Last administered on 01/25/19 08:57; Admin Dose 100 MG; Start 01/13/19 at 09:00 Ascorbic Acid (Vitamin C) 500 mg DAILY PO Last administered on 01/25/19 08:57; Admin Dose 500 MG; Start 01/13/19 at 09:00 Docusate Sodium (Colace) 200 mg QHS PO Last administered on 01/24/19 20:22; Admin Dose 200 MG; Start 01/13/19 at 21:00 Epoetin Ghulam-epbx (RETACRIT(non-esrd)) 10,000 unit Q48H SC Last administered on 01/23/19 17:47; Admin Dose 10,000 UNIT; Start 01/13/19 at 18:00 Ferrous Sulfate (Ferrous Sulfate (Ec)) 325 mg DAILY PO Last administered on 01/25/19 08:57; Admin Dose 325 MG; Start 01/13/19 at 09:00 Folic Acid (Folic Acid) 1 mg DAILY PO Last administered on 01/25/19 08:58; Admin Dose 1 MG; Start 01/13/19 at 09:00 Gabapentin (Neurontin) 100 mg TID PO Last administered on 01/23/19 20:37; Admin Dose 100 MG; Start 01/13/19 at 09:00 Lactulose (Enulose) 20 gm BID PO Last administered on 01/25/19 09:42; Admin Dose 20 GM; Start 01/13/19 at 09:00 Lorazepam (Ativan) 1 mg BID PRN PO ANXIETY Last administered on 01/14/19 20:36; Admin Dose 1 MG; Start 01/13/19 at 06:30 Rifaximin (Xifaxan) 550 mg BID PO Last administered on 01/25/19 08:57; Admin Dose 550 MG; Start 01/13/19 at 09:00 Sodium Bicarbonate (Sodium Bicarbonate Tab) 325 mg TID PO Last administered on 01/25/19 12:26; Admin Dose 325 MG; Start 01/13/19 at 09:00 Tamsulosin HCl (Flomax) 0.4 mg HS PO Last administered on 01/24/19 20:22; Admin Dose 0.4 MG; Start 01/13/19 at 21:00 Thiamine HCl (Vitamin B1) 100 mg DAILY PO Last administered on 01/25/19 08:57; Admin Dose 100 MG; Start 01/13/19 at 09:00 Arformoterol Tartrate (Brovana (Neb)) 2 ml BID RESP THERAPY INH Last adm inistered on 01/25/19 08:35; Admin Dose 2 ML; Start 01/13/19 at 09:00 Budesonide (Pulmicort (Neb)) 0.5 mg Q12H RESP THERAPY INH Last administered on 01/25/19 08:35; Admin Dose 0.5 MG; Start 01/13/19 at 09:00 Dorzolamide/ Timolol (Cosopt Pf Eye Drops) 1 drop BID BOTH EYES Last administered on 01/18/19 09:07; Admin Dose 1 DROP; Start 01/13/19 at 11:30 Nicotine (Nicoderm 21 Mg/ 24hr) 1 patch DAILY TRANSDERM Last administered on 01/25/19 09:00; Admin Dose 1 PATCH; Start 01/14/19 at 09:00 Famotidine (Pepcid) 20 mg Q12 PO Last administered on 01/25/19 08:57; Admin Dose 20 MG; Start 01/13/19 at 21:00 Hydromorphone HCl (Dilaudid) 1.5 mg Q4H PRN IV SEVERE PAIN LEVEL 7-10 Last administered on 01/25/19 10:50; Admin Dose 1.5 MG; Start 01/15/19 at 05:30 Doxycycline Hyclate (Vibramycin) 100 mg 0800,1999 PO Last administered on 01/25/19 08:57; Admin Dose 100 MG; Start 01/15/19 at 20:00 Furosemide (Lasix) 20 mg DAILY PO Last administered on 01/25/19 08:59; Admin Dose 20 MG; Start 01/16/19 at 09:00 Buspirone HCl (Buspar) 10 mg BID PO Last administered on 01/25/19 08:57; Admin Dose 10 MG; Start 01/16/19 at 12:30 Acetaminophen/ Hydrocodone Bitart ([place] (10)) 2 tab Q4H PRN PO MODERATE PAIN LEVEL 4-6 Last administered on 01/25/19 08:54; Admin Dose 2 TAB; Start 01/20/19 at 18:30 Amlodipine Besylate (Norvasc) 5 mg BID PO Last administered on 01/25/19 08:59; Admin Dose 5 MG; Start 01/21/19 at 21:00 Ertapenem 1 gm/ Sodium Chloride 100 ml @ 200 mls/hr Q24H IVPB Last administer ed on 01/24/19 12:25; Admin Dose 200 MLS/HR; Start 01/22/19 at 12:30 Metoprolol Succinate (Toprol Xl) 25 mg HS PO Last administered on 01/24/19 20:23; Admin Dose 25 MG; Start 01/23/19 at 21:00 WERNER KING Jan 25, 2019 13:29
[2019-01-25] MEDS: ERTAPENEM SODIUM 1 GM in SOD CHLORIDE 0.9% 100 ML IVPB SCH (13:47)
[2019-01-25] MEDS: HYDROmorphONE 2 MG/ML SYG IV PRN ×2 (14:51→20:43)
[2019-01-25 15:03] VITALS: BP 146/70; PULSE 70; RESP 18
--- NOTE | 2019-01-25 17:03 | CONS ---
Consultation Date/Type/Reason Admit Date/Time Jan 11, 2019 at 09:53 Initial Consult Date SUBJECTIVE: Pt is awake, afebrile, looks comfortable. VS: stable T: 98.0 LABS: Reviewed. WBC-17.1 Antimicrobials: Invanz and doxycycline Physical examination: GEN: This is a wasted well-developed ,chronically ill-appearing ,elderly man who is in no distress. HENT: Head atraumatic normocephalic, sclera nonicteric. Neck is supple PULM: chest rise symmetrical, breath sounds diminished bases. Heart: S1-S2. Abdomen: soft bowel sounds present. Extremities without BLE edema, mild erythema, no cyanosis. Assessment: 1. Systemic inflammatory response syndrome 2. S/p COPD exacerbation 3. Alcohol abuse 4. Bilateral lower extremities chronic venous stasis 5. Cirrhosis with recurrent ascites 6. Chronic kidney disease 7. CHF 8. Noncompliance Plan: Pt remains stable. Continue current antbx. AM labs and CXR. Requesting Provider: KOKO MARLOW MD Date/Time of Note DATE: 01/25/19 TIME: 17:02 Exam/Review of Systems Exam Vitals Vital Signs Date Temp Pulse Resp B/P (MAP) Pulse Ox O2 O2 Flow FiO2 Time Delivery Rate 01/25/19 98.0 70 18 146/70 95 Room Air 15:03 (95) 01/25/19 08:35 Intake and Output 01/24/19 01/24/19 01/25/19 1515:00 23:00 07:00 IntakeIntake Total 600 ml 400 ml 240 ml OutputOutput Total 700 ml 200 ml 800 ml BalanceBalance -100 ml 200 ml -560 ml Results Result Diagram: 01/25/19 0534 01/25/19 0534 Results 24hrs Laboratory Tests Test 01/25/19 05:34 White Blood Count 17.1 H Red Blood Count 5.06 Hemoglobin 10.7 L Hematocrit 38.6 L Mean Corpuscular Volume 76.3 L Mean Corpuscular Hemoglobin 21.1 L Mean Corpuscular Hemoglobin Concent 27.7 L Red Cell Distribution Width 22.9 H Platelet Count 323 Mean Platelet Volume Immature Granulocytes % 4.400 H Neutrophils % 64.9 Lymphocytes % 8.4 L Monocytes % 15.8 H Eosinophils % 5.0 Basophils % 1.5 Nucleated Red Blood Cells % 0.0 Immature Granulocytes # 0.750 H Neutrophils # 11.1 H Lymphocytes # 1.4 Monocytes # 2.7 H Eosinophils # 0.9 H Basophils # 0.3 H Nucleated Red Blood Cells # 0.0 Sodium Level 142 Potassium Level 5.3 H Chloride Level 110 Carbon Dioxide Level 19 L Anion Gap 13 Blood Urea Nitrogen 30 H Creatinine 1.45 H Est Glomerular Filtrat Rate mL/min 49 L Glucose Level 106 Calcium Level 8.7 Medications Medication Current Medications IV Flush (NS 3 ml) 3 ml PER PROTOCOL IV ; Start 01/11/19 at 13:00 Ondansetron HCl (Zofran Inj) 4 mg Q6H PRN IV NAUSEA/VOMITING; Start 01/11/19 at 13:00 Acetaminophen (Tylenol Tab) 650 mg Q6H PRN PO .PAIN 1-3 OR TEMP; Start 01/11/19 at 13:00 Albuterol (Proventil 0.083% (Neb)) 2.5 mg Q6 PRN HHN shortness of breath; Start 01/11/19 at 13:00 Metoprolol Succinate (Toprol Xl) 50 mg DAILY PO Last administered on 01/25/19at 08:59; Admin Dose 50 MG; Start 01/12/19 at 09:00 Clonidine (Catapres) 0.1 mg Q6H PRN PO systolic BP > 160 Last administered on 01/12/19at 21:31; Admin Dose 0.1 MG; Start 01/12/19 at 21:00 Levothyroxine Sodium (Synthroid) 225 mcg DAILY@06 PO Last administered on 01/25/19at 06:45; Admin Dose 225 MCG; Start 01/13/19 at 06:00 Allopurinol (Zyloprim) 100 mg DAILY PO Last administered on 01/25/19 08:57; Admin Dose 100 MG; Start 01/13/19 at 09:00 Ascorbic Acid (Vitamin C) 500 mg DAILY PO Last administered on 01/25/19at 08:57; Admin Dose 500 MG; Start 01/13/19 at 09:00 Docusate Sodium (Colace) 200 mg QHS PO Last administered on 01/24/19at 20:22; Admin Dose 200 MG; Start 01/13/19 at 21:00 Epoetin Ghulam-epbx (RETACRIT(non-esrd)) 10,000 unit Q48H SC Last administered on 01/23/19 17:47; Admin Dose 10,000 UNIT; Start 01/13/19 at 18:00 Ferrous Sulfate (Ferrous Sulfate (Ec)) 325 mg DAILY PO Last administered on 01/25/19 08:57; Admin Dose 325 MG; Start 01/13/19 at 09:00 Folic Acid (Folic Acid) 1 mg DAILY PO Last administered on 01/25/19 08:58; Admin Dose 1 MG; Start 01/13/19 at 09:00 Gabapentin (Neurontin) 100 mg TID PO Last administered on 01/23/19 20:37; Admin Dose 100 MG; Start 01/13/19 at 09:00 Lactulose (Enulose) 20 gm BID PO Last administered on 01/25/19 09:42; Admin Dose 20 GM; Start 01/13/19 at 09:00 Lorazepam (Ativan) 1 mg BID PRN PO ANXIETY Last administered on 01/14/19 20:36; Admin Dose 1 MG; Start 01/13/19 at 06:30 Rifaximin (Xifaxan) 550 mg BID PO Last administered on 01/25/19 08:57; Admin Dose 550 MG; Start 01/13/19 at 09:00 Sodium Bicarbonate (Sodium Bicarbonate Tab) 325 mg TID PO Last administered on 01/25/19 12:26; Admin Dose 325 MG; Start 01/13/19 at 09:00 Tamsulosin HCl (Flomax) 0.4 mg HS PO Last administered on 01/24/19 20:22; Admin Dose 0.4 MG; Start 01/13/19 at 21:00 Thiamine HCl (Vitamin B1) 100 mg DAILY PO Last administered on 01/25/19 08:57; Admin Dose 100 MG; Start 01/13/19 at 09:00 Arformoterol Tartrate (Brovana (Neb)) 2 ml BID RESP THERAPY INH Last administered on 01/25/19 08:35; Admin Dose 2 ML; Start 01/13/19 at 09:00 Budesonide (Pulmicort (Neb)) 0.5 mg Q12H RESP THERAPY INH Last administered on 01/25/19 08:35; Admin Dose 0.5 MG; Start 01/13/19 at 09:00 Dorzolamide/ Timolol (Cosopt Pf Eye Drops) 1 drop BID BOTH EYES Last administered on 01/18/19 09:07; Admin Dose 1 DROP; Start 01/13/19 at 11:30 Nicotine (Nicoderm 21 Mg/ 24hr) 1 patch DAILY TRANSDERM Last administered on 01/25/19 09:00; Admin Dose 1 PATCH; Start 01/14/19 at 09:00 Famotidine (Pepcid) 20 mg Q12 PO Last administered on 01/25/19 08:57; Admin Dose 20 MG; Start 01/13/19 at 21:00 Doxycycline Hyclate (Vibramycin) 100 mg 0800,2000 PO Last administered on 01/25/19 08:57; Admin Dose 100 MG; Start 01/15/19 at 20:00 Furosemide (Lasix) 20 mg DAILY PO Last administered on 01/25/19 08:59; Admin Dose 20 MG; Start 01/16/19 at 09:00 Buspirone HCl (Buspar) 10 mg BID PO Last administered on 01/25/19 08:57; Admin Dose 10 MG; Start 01/16/19 at 12:30 Acetaminophen/ Hydrocodone Bitart ([place] (10/325)) 2 tab Q4H PRN PO MODERATE PAIN LEVEL 4-6 Last administered on 01/25/19 13:48; Admin Dose 2 TAB; Start 01/20/19 at 18:30 Amlodipine Besylate (Norvasc) 5 mg BID PO Last administered on 01/25/19 08:59; Admin Dose 5 MG; Start 01/21/19 at 21:00 Ertapenem 1 gm/ Sodium Chloride 100 ml @ 200 mls/hr Q24H IVPB Last administered on 01/25/19 13:47; Admin Dose 200 MLS/HR; Start 01/22/19 at 12:30 Metoprolol Succinate (Toprol Xl) 25 mg HS PO Last administered on 01/24/19 20:23; Admin Dose 25 MG; Start 01/23/19 at 21:00 Hydromorphone HCl (Dilaudid) 2 mg Q4H PRN IV SEVERE PAIN LEVEL 7-10 Last administered on 01/25/19 14:51; Admin Dose 2 MG; Start 01/25/19 at 14:00 Lorazepam (Ativan) 1 mg Q6H PRN IV ANXIETY; Start 01/25/19 at 14:00 SARAH GUILLEN Jan 25, 2019 17:03
--- NOTE | 2019-01-25 17:18 | CONS ---
Assessment/Plan Assessment/Plan Assessment/Plan (Daily) 1. acute on chronic renal failure due to Type II hepatorenal syndrome 2. SIRS 3. anemia of CKD 5. Decompensated Liver cirrhosis with Symptomatic ascites 6. H/O HTN 7. h/o Liver cirrhosis with ascites 8. H/o Diastolic CHF 9. Bilateral LE chronic venous stasis 10.H/o BPH on Flomax 11. Acute hyperkalemia Plan: Continue IV abx Ertapenem and PO Doxycycline as per ID , renally dose all abx , monitor electrolytes and replace as needed, BUN/Cr- 30/1.45 today K 5.3- s/p Kayexalate- stop Aldactone due to hyperkalemia Continue Lasix to 20mg po daily, , , Toprol Xl 50mg po daily , amlodipine 5 mg po daily on Sodium bicarbonate 325mg PO TID Flomax 0.4mg po daily for BPH will follow up Patient seen inn collaboration with Dr Leung. dw staff Consultation Date/Type/Reason Admit Date/Time Jan 11, 2019 at 9:53 am Initial Consult Date 01/12/19 Type of Consult NEPHROLOGY Requesting Provider: KOKO MARLOW MD Date/Time of Note DATE: 01/25/19 TIME: 17:17 Exam/Review of Systems Exam Vitals Vital Signs Date Temp Pulse Resp B/P (MAP) Pulse Ox O2 O2 Flow FiO2 Time Delivery Rate 01/25/19 98.0 70 18 146/70 95 Room Air 15:03 (95) 01/25/19 21 08:35 Intake and Output 01/24/19 01/24/19 01/25/19 1414:59 22:59 06:59 IntakeIntake Total 600 ml 400 ml 240 ml OutputOutput Total 700 ml 200 ml 800 ml BalanceBalance -100 ml 200 ml -560 ml Constitutional: alert, well developed, obese Psych: nl mood/affect Head: normocephalic Eyes: nl lids, nl sclera ENMT: nl external ears & nose Neck: non-tender Respiratory: diminished breath sounds (at bases bilaterally) Cardiovascular: nl pulses, other (s1s2) Gastrointestinal: soft, non-tender Musculoskeletal: muscle weakness Extremities: normal pulses Neurological: nl speech, other (alert/reponsie) Lymph: nontender Results Result Diagram: 01/25/1934 01/25/19 0534 Results 24hrs Laboratory Tests Test 01/25/19 05:34 White Blood Count 17.1 H Red Blood Count 5.06 Hemoglobin 10.7 L Hematocrit 38.6 L Mean Corpuscular Volume 76.3 L Mean Corpuscular Hemoglobin 21.1 L Mean Corpuscular Hemoglobin Concent 27.7 L Red Cell Distribution Width 22.9 H Platelet Count 323 Mean Platelet Volume Immature Granulocytes % 4.400 H Neutrophils % 64.9 Lymphocytes % 8.4 L Monocytes % 15.8 H Eosinophils % 5.0 Basophils % 1.5 Nucleated Red Blood Cells % 0.0 Immature Granulocytes # 0.750 H Neutrophils # 11.1 H Lymphocytes # 1.4 Monocytes # 2.7 H Eosinophils # 0.9 H Basophils # 0.3 H Nucleated Red Blood Cells # 0.0 Sodium Level 142 Potassium Level 5.3 H Chloride Level 110 Carbon Dioxide Level 19 L Anion Gap 13 Blood Urea Nitrogen 30 H Creatinine 1.45 H Est Glomerular Filtrat Rate mL/min 49 L Glucose Level 106 Calcium Level 8.7 Medications Medication Current Medications IV Flush (NS 3 ml) 3 ml PER PROTOCOL IV ; Start 01/11/19 at 13:00 Ondansetron HCl (Zofran Inj) 4 mg Q6H PRN IV NAUSEA/VOMITING; Start 01/11/19 at 13:00 Acetaminophen (Tylenol Tab) 650 mg Q6H PRN PO .PAIN 1-3 OR TEMP; Start 01/11/19 at 13:00 Albuterol (Proventil 0.083% (Neb)) 2.5 mg Q6 PRN HHN shortness of breath; Start 01/11/19 at 13:00 Metoprolol Succinate (Toprol Xl) 50 mg DAILY PO Last administered on 01/25/19at 08:59; Admin Dose 50 MG; Start 01/12/19 at 09:00 Clonidine (Catapres) 0.1 mg Q6H PRN PO systolic BP > 160 Last administered on 01/12/19at 21:31; Admin Dose 0.1 MG; Start 01/12/19 at 21:00 Levothyroxine Sodium (Synthroid) 225 mcg DAILY@06 PO Last administered on 01/25/19at 06:45; Admin Dose 225 MCG; Start 01/13/19 at 06:00 Allopurinol (Zyloprim) 100 mg DAILY PO Last administered on 01/25/19 08:57; Admin Dose 100 MG; Start 01/13/19 at 09:00 Ascorbic Acid (Vitamin C) 500 mg DAILY PO Last administered on 01/25/19 08:57; Admin Dose 500 MG; Start 01/13/19 at 09:00 Docusate Sodium (Colace) 200 mg QHS PO Last administered on 01/24/19 20:22; Admin Dose 200 MG; Start 01/13/19 at 21:00 Epoetin Ghulam-epbx (RETACRIT(non-esrd)) 10,000 unit Q48H SC Last administered on 01/23/19 17:47; Admin Dose 10,000 UNIT; Start 01/13/19 at 18:00 Ferrous Sulfate (Ferrous Sulfate (Ec)) 325 mg DAILY PO Last administered on 01/25/19 08:57; Admin Dose 325 MG; Start 01/13/19 at 09:00 Folic Acid (Folic Acid) 1 mg DAILY PO Last administered on 01/25/19 08:58; Admin Dose 1 MG; Start 01/13/19 at 09:00 Gabapentin (Neurontin) 100 mg TID PO Last administered on 01/23/19 20:37; Admin Dose 100 MG; Start 01/13/19 at 09:00 Lactulose (Enulose) 20 gm BID PO Last administered on 01/25/19 09:42; Admin Dose 20 GM; Start 01/13/19 at 09:00 Lorazepam (Ativan) 1 mg BID PRN PO ANXIETY Last administered on 01/14/19 20:36; Admin Dose 1 MG; Start 01/13/19 at 06:30 Rifaximin (Xifaxan) 550 mg BID PO Last administered on 01/25/19 08:57; Admin Dose 550 MG; Start 01/13/19 at 09:00 Sodium Bicarbonate (Sodium Bicarbonate Tab) 325 mg TID PO Last administered on 01/25/19 12:26; Admin Dose 325 MG; Start 01/13/19 at 09:00 Tamsulosin HCl (Flomax) 0.4 mg HS PO Last administered on 01/24/19 20:22; Admin Dose 0.4 MG; Start 01/13/19 at 21:00 Thiamine HCl (Vitamin B1) 100 mg DAILY PO Last administered on 01/25/19 08:57; Admin Dose 100 MG; Start 01/13/19 at 09:00 Arformoterol Tartrate (Brovana (Neb)) 2 ml BID RESP THERAPY INH Last administered on 01/25/19 08:35; Admin Dose 2 ML; Start 01/13/19 at 09:00 Budesonide (Pulmicort (Neb)) 0.5 mg Q12H RESP THERAPY INH Last administered on 01/25/19 08:35; Admin Dose 0.5 MG; Start 01/13/19 at 09:00 Dorzolamide/ Timolol (Cosopt Pf Eye Drops) 1 drop BID BOTH EYES Last administered on 01/18/19 09:07; Admin Dose 1 DROP; Start 01/13/19 at 11:30 Nicotine (Nicoderm 21 Mg/ 24hr) 1 patch DAILY TRANSDERM Last administered on 01/25/19 09:00; Admin Dose 1 PATCH; Start 01/14/19 at 09:00 Famotidine (Pepcid) 20 mg Q12 PO Last administered on 01/25/19 08:57; Admin Dose 20 MG; Start 01/13/19 at 21:00 Doxycycline Hyclate (Vibramycin) 100 mg 0800,2000 PO Last administered on 01/25/19 08:57; Admin Dose 100 MG; Start 01/15/19 at 20:00 Furosemide (Lasix) 20 mg DAILY PO Last administered on 01/25/19 08:59; Admin Dose 20 MG; Start 01/16/19 at 09:00 Buspirone HCl (Buspar) 10 mg BID PO Last administered on 01/25/19 08:57; Admin Dose 10 MG; Start 01/16/19 at 12:30 Acetaminophen/ Hydrocodone Bitart ([place] (10/325)) 2 tab Q4H PRN PO MODERATE PAIN LEVEL 4-6 Last administered on 01/25/19 13:48; Admin Dose 2 TAB; Start 01/20/19 at 18:30 Amlodipine Besylate (Norvasc) 5 mg BID PO Last administered on 01/25/19 08:59; Admin Dose 5 MG; Start 01/21/19 at 21:00 Ertapenem 1 gm/ Sodium Chloride 100 ml @ 200 mls/hr Q24H IVPB Last administered on 4/21/19at 13:47; Admin Dose 200 MLS/HR; Start 01/22/19 at 12:30 Metoprolol Succinate (Toprol Xl) 25 mg HS PO Last administered on 01/24/19at 20:23; Admin Dose 25 MG; Start 01/23/19 at 21:00 Hydromorphone HCl (Dilaudid) 2 mg Q4H PRN IV SEVERE PAIN LEVEL 7-10 Last administered on 01/25/19at 14:51; Admin Dose 2 MG; Start 01/25/19 at 14:00 Lorazepam (Ativan) 1 mg Q6H PRN IV ANXIETY; Start 01/25/19 at 14:00 GO LAMBERT Jan 25, 2019 17:18
[2019-01-25] MEDS: EPOETIN ALFA-EPBX (NON-ESRD 10,000 UNIT/ML VIAL SC SCH (18:32)
[2019-01-25 20:40] VITALS: BP 135/61; PULSE 77; RESP 18
[2019-01-25] MEDS: DOCUSATE SODIUM 100 MG CAP PO SCH (20:46)
[2019-01-25] MEDS: METOPROLOL (XL) 25 MG TAB PO SCH (20:46)
[2019-01-25] MEDS: TAMSULOSIN (SR) 0.4 MG CAP PO SCH (20:47)
[2019-01-26] MEDS: HYDROmorphONE 2 MG/ML SYG IV PRN ×5 (00:54→20:48)
[2019-01-26 02:35] VITALS: BP 137/65; PULSE 67; RESP 18
[2019-01-26] MEDS: LORAZEPAM 2 MG INJ IV PRN ×4 (03:22→22:05)
[2019-01-26] MEDS: LEVOTHYROXINE 75 MCG TAB PO SCH (06:12)
[2019-01-26] MEDS: BUDESONIDE (NEB) 0.5MG/2ML AMP INH SCH ×2 (07:50→20:00)
[2019-01-26] MEDS: ARFORMOTEROL TARTRATE 15MCG/2 ML AMP INH SCH ×2 (07:50→20:00)
[2019-01-26] MEDS: HYDROCODONE/APAP (10/325) TAB PO PRN ×2 (07:55→14:07)
[2019-01-26 08:43] VITALS: BP 150/69; PULSE 77; RESP 17
[2019-01-26] MEDS: DOXYCYCLINE 100 MG TAB PO SCH ×2 (08:54→20:08)
[2019-01-26] MEDS: BUSPIRONE 10 MG TAB PO SCH ×2 (08:55→20:11)
[2019-01-26] MEDS: NICOTINE (21 MG/24 HR) PATCH TRANSDERM SCH (08:56)
[2019-01-26] MEDS: FUROSEMIDE 20 MG TAB PO SCH (08:57)
[2019-01-26] MEDS: RIFAXIMIN 550 MG TAB PO SCH ×2 (08:57→20:12)
[2019-01-26] MEDS: METOPROLOL (XL) 50 MG TAB PO SCH (08:57)
[2019-01-26] MEDS: ASCORBIC ACID 500 MG TAB PO SCH (08:58)
[2019-01-26] MEDS: AMLODIPINE 5 MG TAB PO SCH ×2 (08:58→20:11)
[2019-01-26] MEDS: GABAPENTIN 100 MG CAP PO SCH ×3 (08:58→20:11)
[2019-01-26] MEDS: DORZOLAMIDE/TIMOLOL/PF 0.2 ML DROPERETTE LEFT EYE SCH ×3 (08:59→20:56)
[2019-01-26] MEDS: ALLOPURINOL 100 MG TAB PO SCH (08:59)
[2019-01-26] MEDS: FAMOTIDINE 20 MG TAB PO SCH ×2 (08:59→20:10)
[2019-01-26] MEDS: FOLIC ACID 1 MG TAB PO SCH (08:59)
[2019-01-26] MEDS: FERROUS SULFATE (EC) 325 MG TAB PO SCH (08:59)
[2019-01-26] MEDS: THIAMINE 100 MG TAB PO SCH (08:59)
[2019-01-26] MEDS: LUBIPROSTONE 24 MCG CAP PO SCH ×2 (09:00→20:11)
[2019-01-26] MEDS: NA BICARBONATE 650 MG TAB PO SCH ×3 (09:01→20:10)
[2019-01-26] MEDS: LACTULOSE 30ML CUP PO SCH ×2 (09:03→20:11)
--- NOTE | 2019-01-26 09:04 | CONS ---
Assessment/Plan Assessment/Plan Hospital Course (Demo Recall) 63 yo male Interval hx: No acute events. Constipated. Agrees to colonoscopy 1. Microcytic hypochromic anemia, most probably related to iron deficiency. -anemia work up from previous visit last week noted. NEG FOB -EGD done April 2018 showed duodenal ulcer and gastritis -hgb stable 2. 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 -US on 01/07 did not ascites 3. Nicotine dependence 4. Congestive heart failure. -EF of 60% 5. Chronic obstructive pulmonary disease. 6. Renal failure. 7. Opioid induced constipation PLAN: Colonoscopy tomorrow. Please hold all anti coagulants. NPO p MN. Bowel prep starting at 1700. Amitiza 24 mcg bid and miralax 17 gm qd Pt examined and plan of care discussed with Dr. Casiano Consultation Date/Type/Reason Admit Date/Time Jan 11, 2019 at 09:53 Initial Consult Date 01/11/19 Requesting Provider: KOKO MARLOW MD Date/Time of Note DATE: 01/26/19 TIME: 08:55 Exam/Review of Systems Exam Vitals Vital Signs Date Temp Pulse Resp B/P (MAP) Pulse Ox O2 O2 Flow FiO2 Time Delivery Rate 01/26/19 98.2 77 17 150/69 97 08:43 (96) 01/26/19 07:48 01/25/19 Room Air 15:03 Intake and Output 01/25/19 01/25/19 01/26/19 1515:00 23:00 07:00 IntakeIntake Total 920 ml 3000 ml OutputOutput Total 600 ml 200 ml 600 ml BalanceBalance 320 ml -200 ml 2400 ml Constitutional: alert, oriented Psych: no complaints Head: normocephalic Eyes: PERRL ENMT: mucosa pink and moist Respiratory: clear to auscultation Cardiovascular: regular rate and rhythm Gastrointestinal: soft, non-tender Neurological: nl mental status Results Result Diagram: 01/26/19 0542 01/26/19 0542 Results 24hrs Laboratory Tests Test 01/26/19 05:42 White Blood Count 18.2 H Red Blood Count 5.00 Hemoglobin 10.4 L Hematocrit 37.5 L Mean Corpuscular Volume 75.0 L Mean Corpuscular Hemoglobin 20.8 L Mean Corpuscular Hemoglobin Concent 27.7 L Red Cell Distribution Width 23.4 H Platelet Count 290 Mean Platelet Volume Immature Granulocytes % 3.700 H Neutrophils % 63.4 Lymphocytes % 8.0 L Monocytes % 19.5 H Eosinophils % 4.1 Basophils % 1.3 Nucleated Red Blood Cells % 0.2 H Immature Granulocytes # 0.680 H Neutrophils # 11.5 H Lymphocytes # 1.5 Monocytes # 3.6 H Eosinophils # 0.7 H Basophils # 0.2 H Nucleated Red Blood Cells # 0.0 Sodium Level 140 Potassium Level 5.7 H Chloride Level 113 H Carbon Dioxide Level 19 L Anion Gap 8 Blood Urea Nitrogen 34 H Creatinine 1.48 H Est Glomerular Filtrat Rate mL/min 48 L Glucose Level 85 Calcium Level 9.3 Medications Medication Current Medications IV Flush (NS 3 ml) 3 ml PER PROTOCOL IV ; Start 01/11/19 at 13:00 Ondansetron HCl (Zofran Inj) 4 mg Q6H PRN IV NAUSEA/VOMITING; Start 01/11/19 at 13:00 Acetaminophen (Tylenol Tab) 650 mg Q6H PRN PO .PAIN 1-3 OR TEMP; Start 01/11/19 at 13:00 Albuterol (Proventil 0.083% (Neb)) 2.5 mg Q6 PRN HHN shortness of breath; Start 01/11/19 at 13:00 Metoprolol Succinate (Toprol Xl) 50 mg DAILY PO Last administered on 01/25/19at 08:59; Admin Dose 50 MG; Start 01/12/19 at 09:00 Clonidine (Catapres) 0.1 mg Q6H PRN PO systolic BP > 160 Last administered on 01/12/19at 21:31; Admin Dose 0.1 MG; Start 01/12/19 at 21:00 Levothyroxine Sodium (Synthroid) 225 mcg DAILY@06 PO Last administered on 01/26/19at 06:12; Admin Dose 225 MCG; Start 01/13/19 at 06:00 Allopurinol (Zyloprim) 100 mg DAILY PO Last administered on 01/25/19at 08:57; Admin Dose 100 MG; Start 01/13/19 at 09:00 Ascorbic Acid (Vitamin C) 500 mg DAILY PO Last administered on 01/25/19at 08:57; Admin Dose 500 MG; Start 01/13/19 at 09:00 Docusate Sodium (Colace) 200 mg QHS PO Last administered on 01/25/19 20:46; Admin Dose 200 MG; Start 01/13/19 at 21:00 Epoetin Ghulam-epbx (RETACRIT(non-esrd)) 10,000 unit Q48H SC Last administered on 01/25/19 18:32; Admin Dose 10,000 UNIT; Start 01/13/19 at 18:00 Ferrous Sulfate (Ferrous Sulfate (Ec)) 325 mg DAILY PO Last administered on 01/25/19 08:57; Admin Dose 325 MG; Start 01/13/19 at 09:00 Folic Acid (Folic Acid) 1 mg DAILY PO Last administered on 01/25/19 08:58; Admin Dose 1 MG; Start 01/13/19 at 09:00 Gabapentin (Neurontin) 100 mg TID PO Last administered on 01/23/19 20:37; Admin Dose 100 MG; Start 01/13/19 at 09:00 Lorazepam (Ativan) 1 mg BID PRN PO ANXIETY Last administered on 01/14/19 20:36; Admin Dose 1 MG; Start 01/13/19 at 06:30 Rifaximin (Xifaxan) 550 mg BID PO Last administered on 01/25/19 21:58; Admin Dose 550 MG; Start 01/13/19 at 09:00 Sodium Bicarbonate (Sodium Bicarbonate Tab) 325 mg TID PO Last administered on 01/25/19 20:47; Admin Dose 325 MG; Start 01/13/19 at 09:00 Tamsulosin HCl (Flomax) 0.4 mg HS PO Last administered on 01/25/19 20:47; Admin Dose 0.4 MG; Start 01/13/19 at 21:00 Thiamine HCl (Vitamin B1) 100 mg DAILY PO Last administered on 01/25/19 08:57; Admin Dose 100 MG; Start 01/13/19 at 09:00 Arformoterol Tartrate (Brovana (Neb)) 2 ml BID RESP THERAPY INH Last administered on 01/26/19 07:50; Admin Dose 2 ML; Start 01/13/19 at 09:00 Budesonide (Pulmicort (Neb)) 0.5 mg Q12H RESP THERAPY INH Last administered on 01/26/19 07:50; Admin Dose 0.5 MG; Start 01/13/19 at 09:00 Nicotine (Nicoderm 21 Mg/ 24hr) 1 patch DAILY TRANSDERM Last administered on 01/25/19 09:00; Admin Dose 1 PATCH; Start 01/14/19 at 09:00 Famotidine (Pepcid) 20 mg Q12 PO Last administered on 01/25/19 20:47; Admin Dose 20 MG; Start 01/13/19 at 21:00 Doxycycline Hyclate (Vibramycin) 100 mg 08,1999 PO Last administered on 01/25/19 20:46; Admin Dose 100 MG; Start 01/15/19 at 20:00 Furosemide (Lasix) 20 mg DAILY PO Last administered on 01/25/19 08:59; Admin Dose 20 MG; Start 01/16/19 at 09:00 Buspirone HCl (Buspar) 10 mg BID PO Last administered on 01/25/19 20:47; Admin Dose 10 MG; Start 01/16/19 at 12:30 Acetaminophen/ Hydrocodone Bitart ([place] (10/325)) 2 tab Q4H PRN PO MODERATE PAIN LEVEL 4-6 Last administered on 01/26/19 07:55; Admin Dose 2 TAB; Start 01/20/19 at 18:30 Amlodipine Besylate (Norvasc) 5 mg BID PO Last administered on 01/25/19 20:47; Admin Dose 5 MG; Start 01/21/19 at 21:00 Ertapenem 1 gm/ Sodium Chloride 100 ml @ 200 mls/hr Q24H IVPB Last administered on 01/25/19 13:47; Admin Dose 200 MLS/HR; Start 01/22/19 at 12:30 Metoprolol Succinate (Toprol Xl) 25 mg HS PO Last administered on 01/25/19 20:46; Admin Dose 25 MG; Start 01/23/19 at 21:00 Hydromorphone HCl (Dilaudid) 2 mg Q4H PRN IV SEVERE PAIN LEVEL 7-10 Last administered on 01/26/19 06:27; Admin Dose 2 MG; Start 01/25/19 at 14:00 Lorazepam (Ativan) 1 mg Q6H PRN IV ANXIETY Last administered on 01/26/19 03:22; Admin Dose 1 MG; Start 01/25/19 at 14:00 Dorzolamide/ Timolol (Cosopt Pf Eye Drops) 1 drop BID LEFT EYE ; Start 01/26/19 at 09:00 Lactulose (Enulose) 30 gm BID PO ; Start 01/26/19 at 09:00 Simethicone (Mylicon) 80 mg Q6 PRN PO bloating; Start 01/26/19 at 07:00 Eye Lubricant (Artificial Tears Oph) 2 drop Q6H PRN BOTH EYES DRY EYES; Start 01/26/19 at 07:00 DEYVI HAN Jan 26, 2019 09:04
--- NOTE | 2019-01-26 12:39 | CONS ---
Assessment/Plan Assessment/Plan Hospital Course (Demo Recall) IMPRESSION: 1. Congestive heart failure exacerbation, diastolic, acute on chronic. 2. Hypertension-mildly elavated 3. Shortness of breath secondary to congestive heart failure exacerbation, d iastolic, acute on chronic. 4. Chronic renal failure. 5. Cirrhosis. 6. Ascites, recurrent. 7. Hypothyroidism. 8. History of ETOH abuse. 9. Anemia. 10.leukocytosis-worsening REcc: -ON med-surg -serial ecg's -Contineu lasix/aldactone and follow volume status closely and ascites -Continue toprol and CCB and follow BP clsoely -Continue lactulose -pain control -Continue abx's and f/u cx data -To have colonscopy tomorrow -ID following Consultation Date/Type/Reason Admit Date/Time Jan 11, 2019 at 09:53 Initial Consult Date 01/12/19 Type of Consult Cardiology Reason for Consultation CHF Requesting Provider: KOKO MARLOW MD Date/Time of Note DATE: 01/26/19 TIME: 12:36 Exam/Review of Systems Vital Signs Vitals Vital Signs Date Temp Pulse Resp B/P (MAP) Pulse Ox O2 O2 Flow FiO2 Time Delivery Rate 01/26/19 98.2 77 17 150/69 97 08:43 (96) 01/26/19 07:48 01/25/19 Room Air 15:03 Intake and Output 01/25/19 01/25/19 01/26/19 1515:00 23:00 07:00 IntakeIntake Total 920 ml 3000 ml OutputOutput Total 600 ml 200 ml 600 ml BalanceBalance 320 ml -200 ml 2400 ml Exam Exam Review of Systems: CONSTITUTIONAL: No fevers, chills. PULMONARY: No sob CARDIOVASCULAR: No chest pain/palpitations GASTROINTESTINAL: No nausea/vomiting. GENITOURINARY: No hematuria/dysuria. MUSCULOSKELETAL: No myagias/arthalgias. PSYCHIATRIC: The patient denies depression. NEUROLOGIC: lethargic Constitutional: other (sleeping, arousable) Psych: no complaints Head: normocephalic ENMT: mucosa pink and moist Neck: supple, jvd (9 cm water) Respiratory: diminished breath sounds Cardiovascular: regular rate and rhythm Gastrointestinal: soft, non-tender Musculoskeletal: muscle tone (normal) Extremities: edema (trace edema with chronic changes) Neurological: other (No focal deficits) Labs Result Diagram: 01/26/19 0542 01/26/19 0542 Results 24hrs Laboratory Tests Test 01/26/19 05:42 White Blood Count 18.2 H Red Blood Count 5.00 Hemoglobin 10.4 L Hematocrit 37.5 L Mean Corpuscular Volume 75.0 L Mean Corpuscular Hemoglobin 20.8 L Mean Corpuscular Hemoglobin Concent 27.7 L Red Cell Distribution Width 23.4 H Platelet Count 290 Mean Platelet Volume Immature Granulocytes % 3.700 H Neutrophils % 63.4 Lymphocytes % 8.0 L Monocytes % 19.5 H Eosinophils % 4.1 Basophils % 1.3 Nucleated Red Blood Cells % 0.2 H Immature Granulocytes # 0.680 H Neutrophils # 11.5 H Lymphocytes # 1.5 Monocytes # 3.6 H Eosinophils # 0.7 H Basophils # 0.2 H Nucleated Red Blood Cells # 0.0 Sodium Level 140 Potassium Level 5.7 H Chloride Level 113 H Carbon Dioxide Level 19 L Anion Gap 8 Blood Urea Nitrogen 34 H Creatinine 1.48 H Est Glomerular Filtrat Rate mL/min 48 L Glucose Level 85 Calcium Level 9.3 Medications Medications Current Medications IV Flush (NS 3 ml) 3 ml PER PROTOCOL IV ; Start 01/11/19 at 13:00 Ondansetron HCl (Zofran Inj) 4 mg Q6H PRN IV NAUSEA/VOMITING; Start 01/11/19 at 13:00 Acetaminophen (Tylenol Tab) 650 mg Q6H PRN PO .PAIN 1-3 OR TEMP; Start 01/11/19 at 13:00 Albuterol (Proventil 0.083% (Neb)) 2.5 mg Q6 PRN HHN shortness of breath; Start 01/11/19 at 13:00 Metoprolol Succinate (Toprol Xl) 50 mg DAILY PO Last administered on 01/26/19at 08:57; Admin Dose 50 MG; Start 01/12/19 at 09:00 Clonidine (Catapres) 0.1 mg Q6H PRN PO systolic BP > 160 Last administered on 01/12/19at 21:31; Admin Dose 0.1 MG; Start 01/12/19 at 21:00 Levothyroxine Sodium (Synthroid) 225 mcg DAILY@06 PO Last administered on 01/26/19at 06:12; Admin Dose 225 MCG; Start 01/13/19 at 06:00 Allopurinol (Zyloprim) 100 mg DAILY PO Last administered on 01/26/19 08:59; Admin Dose 100 MG; Start 01/13/19 at 09:00 Ascorbic Acid (Vitamin C) 500 mg DAILY PO Last administered on 01/26/19 08:58; Admin Dose 500 MG; Start 01/13/19 at 09:00 Docusate Sodium (Colace) 200 mg QHS PO Last administered on 01/25/19 20:46; Admin Dose 200 MG; Start 01/13/19 at 21:00 Epoetin Ghulam-epbx (RETACRIT(non-esrd)) 10,000 unit Q48H SC Last administered on 01/25/19 18:32; Admin Dose 10,000 UNIT; Start 01/13/19 at 18:00 Ferrous Sulfate (Ferrous Sulfate (Ec)) 325 mg DAILY PO Last administered on 01/26/19 08:59; Admin Dose 325 MG; Start 01/13/19 at 09:00 Folic Acid (Folic Acid) 1 mg DAILY PO Last administered on 01/26/19 08:59; Admin Dose 1 MG; Start 01/13/19 at 09:00 Gabapentin (Neurontin) 100 mg TID PO Last administered on 01/26/19 08:58; Admin Dose 100 MG; Start 01/13/19 at 09:00 Lorazepam (Ativan) 1 mg BID PRN PO ANXIETY Last administered on 01/14/19 20:36; Admin Dose 1 MG; Start 01/13/19 at 06:30 Rifaximin (Xifaxan) 550 mg BID PO Last administered on 01/26/19 08:57; Admin Dose 550 MG; Start 01/13/19 at 09:00 Sodium Bicarbonate (Sodium Bicarbonate Tab) 325 mg TID PO Last administered on 01/26/19 09:01; Admin Dose 325 MG; Start 01/13/19 at 09:00 Tamsulosin HCl (Flomax) 0.4 mg HS PO Last administered on 01/25/19 20:47; Admin Dose 0.4 MG; Start 01/13/19 at 21:00 Thiamine HCl (Vitamin B1) 100 mg DAILY PO Last administered on 01/26/19 08:59; Admin Dose 100 MG; Start 01/13/19 at 09:00 Arformoterol Tartrate (Brovana (Neb)) 2 ml BID RESP THERAPY INH Last administered on 01/26/19 07:50; Admin Dose 2 ML; Start 01/13/19 at 09:00 Budesonide (Pulmicort (Neb)) 0.5 mg Q12H RESP THERAPY INH Last administered on 01/26/19 07:50; Admin Dose 0.5 MG; Start 01/13/19 at 09:00 Nicotine (Nicoderm 21 Mg/ 24hr) 1 patch DAILY TRANSDERM Last administered on 01/26/19 08:56; Admin Dose 1 PATCH; Start 01/14/19 at 09:00 Famotidine (Pepcid) 20 mg Q12 PO Last administered on 01/26/19 08:59; Admin Dose 20 MG; Start 01/13/19 at 21:00 Doxycycline Hyclate (Vibramycin) 100 mg 0800,1999 PO Last administered on 01/26/19 08:54; Admin Dose 100 MG; Start 01/15/19 at 20:00 Furosemide (Lasix) 20 mg DAILY PO Last administered on 01/26/19 08:57; Admin Dose 20 MG; Start 01/16/19 at 09:00 Buspirone HCl (Buspar) 10 mg BID PO Last administered on 01/26/19 08:55; Admin Dose 10 MG; Start 01/16/19 at 12:30 Acetaminophen/ Hydrocodone Bitart ([place] (10/325)) 2 tab Q4H PRN PO MODERATE PAIN LEVEL 4-6 Last administered on 01/26/19 07:55; Admin Dose 2 TAB; Start 01/20/19 at 18:30 Amlodipine Besylate (Norvasc) 5 mg BID PO Last administered on 01/26/19 08:58; Admin Dose 5 MG; Start 01/21/19 at 21:00 Metoprolol Succinate (Toprol Xl) 25 mg HS PO Last administered on 01/25/19 20:46; Admin Dose 25 MG; Start 01/23/19 at 21:00 Hydromorphone HCl (Dilaudid) 2 mg Q4H PRN IV SEVERE PAIN LEVEL 7-10 Last administered on 01/26/19 11:38; Admin Dose 2 MG; Start 01/25/19 at 14:00 Lorazepam (Ativan) 1 mg Q6H PRN IV ANXIETY Last administered on 01/26/19at 09:37; Admin Dose 1 MG; Start 01/25/19 at 14:00 Dorzolamide/ Timolol (Cosopt Pf Eye Drops) 1 drop BID LEFT EYE Last administered on 01/26/19at 08:59; Admin Dose 1 DROP; Start 01/26/19 at 09:00 Lactulose (Enulose) 30 gm BID PO Last administered on 01/26/19at 09:03; Admin Dose 30 GM; Start 01/26/19 at 09:00 Simethicone (Mylicon) 80 mg Q6 PRN PO bloating; Start 01/26/19 at 07:00 Eye Lubricant (Artificial Tears Oph) 2 drop Q6H PRN BOTH EYES DRY EYES; Start 01/26/19 at 07:00 Bisacodyl (Dulcolax) 10 mg ONCE ONCE PO ; Start 01/26/19 at 17:00; Stop 01/26/19 at 17:01 Polyethylene Glycol/ Electrolytes (Golytely) 2,000 ml ONCE ONCE PO ; Start 01/26/19 at 17:00; Stop 01/26/19 at 17:01 Polyethylene Glycol/ Electrolytes (Golytely) 2,000 ml 2nd Dose (GI Prep) ONCE PO ; Start 01/26/19 at 20:00; Stop 01/26/19 at 20:01 Bisacodyl (Dulcolax) 10 mg 2nd Dose (GI Prep) ONCE PO ; Start 01/26/19 at 20:00; Stop 01/26/19 at 20:01 Lubiprostone (Amitiza) 24 mcg BID PO ; Start 01/26/19 at 09:00 Polyethylene Glycol (Miralax) 17 gm DAILY PO ; Start 01/27/19 at 09:00 DUSTY CANTU Jan 26, 2019 12:39
--- NOTE | 2019-01-26 14:07 | PN ---
Date/Time of Note Date/Time of Note DATE: 01/26/19 TIME: 14:06 Assessment/Plan VTE Prophylaxis Risk score (from [facility] [place]0 risk: 5 SCD applied (from [facility] [place] No SCD contraindicated: other Pharmacological prophylaxis: LMWH Lines/Catheters IV [facility]ter Type (from [facility] [place] Urinary Cath still in place: No Assessment/Plan Hospital Course -Shortness of breath, rule out acute coronary syndrome, cardiac enzymes are negative x3. -Acute on chronic diastolic congestive heart failure. Continue Lasix. Dr. Foley is following in cardiology consultation. -COPD exacerbation, continue bronchodilators, steroids, and oxygen supplementation. -Anemia, Dr. Mayes is following in gastroenterology consultation. -Alcoholic liver cirrhosis -Acute kidney injury on chronic kidney disease. Dr. Leung is following in nephrology consultation. -Bilateral lower extremities chronic venous stasis -Left foot plantar ulcer. Dr. Younger is following in podiatry consultation. -Obesity -Nicotine dependence, continue nicotine patch, cessation is strongly advised. -Ongoing alcohol use, cessation is strongly advised. -Poor medical compliance Result Diagram: 01/26/19 0542 01/26/19 0542 Results 24hrs Laboratory Tests Test 01/26/19 05:42 White Blood Count 18.2 H Red Blood Count 5.00 Hemoglobin 10.4 L Hematocrit 37.5 L Mean Corpuscular Volume 75.0 L Mean Corpuscular Hemoglobin 20.8 L Mean Corpuscular Hemoglobin Concent 27.7 L Red Cell Distribution Width 23.4 H Platelet Count 290 Mean Platelet Volume Immature Granulocytes % 3.700 H Neutrophils % 63.4 Lymphocytes % 8.0 L Monocytes % 19.5 H Eosinophils % 4.1 Basophils % 1.3 Nucleated Red Blood Cells % 0.2 H Immature Granulocytes # 0.680 H Neutrophils # 11.5 H Lymphocytes # 1.5 Monocytes # 3.6 H Eosinophils # 0.7 H Basophils # 0.2 H Nucleated Red Blood Cells # 0.0 Sodium Level 140 Potassium Level 5.7 H Chloride Level 113 H Carbon Dioxide Level 19 L Anion Gap 8 Blood Urea Nitrogen 34 H Creatinine 1.48 H Est Glomerular Filtrat Rate mL/min 48 L Glucose Level 85 Calcium Level 9.3 Subjective 24 Hr Interval Summary Free Text/Dictation Patient state that his pain is better with higher dose of dilaudid Exam/Review of Systems Exam Vitals Vital Signs Date Temp Pulse Resp B/P (MAP) Pulse Ox O2 O2 Flow FiO2 Time Delivery Rate 01/26/19 98.2 77 17 150/69 97 08:43 (96) 01/26/19 21 07:48 01/25/19 Room Air 15:03 Intake and Output 01/25/19 01/25/19 01/26/19 1515:00 23:00 07:00 IntakeIntake Total 920 ml 3000 ml OutputOutput Total 600 ml 200 ml 600 ml BalanceBalance 320 ml -200 ml 2400 ml Constitutional: well developed Head: normocephalic, atraumatic Neck: supple Respiratory: diminished breath sounds Cardiovascular: regular rate and rhythm Gastrointestinal: soft, non-tender Extremities: normal pulses Results Results 24hrs Laboratory Tests Test 01/26/19 05:42 White Blood Count 18.2 H Red Blood Count 5.00 Hemoglobin 10.4 L Hematocrit 37.5 L Mean Corpuscular Volume 75.0 L Mean Corpuscular Hemoglobin 20.8 L Mean Corpuscular Hemoglobin Concent 27.7 L Red Cell Distribution Width 23.4 H Platelet Count 290 Mean Platelet Volume Immature Granulocytes % 3.700 H Neutrophils % 63.4 Lymphocytes % 8.0 L Monocytes % 19.5 H Eosinophils % 4.1 Basophils % 1.3 Nucleated Red Blood Cells % 0.2 H Immature Granulocytes # 0.680 H Neutrophils # 11.5 H Lymphocytes # 1.5 Monocytes # 3.6 H Eosinophils # 0.7 H Basophils # 0.2 H Nucleated Red Blood Cells # 0.0 Sodium Level 140 Potassium Level 5.7 H Chloride Level 113 H Carbon Dioxide Level 19 L Anion Gap 8 Blood Urea Nitrogen 34 H Creatinine 1.48 H Est Glomerular Filtrat Rate mL/min 48 L Glucose Level 85 Calcium Level 9.3 Medications Medication Current Medications IV Flush (NS 3 ml) 3 ml PER PROTOCOL IV ; Start 01/11/19 at 13:00 Ondansetron HCl (Zofran Inj) 4 mg Q6H PRN IV NAUSEA/VOMITING; Start 01/11/19 at 13:00 Acetaminophen (Tylenol Tab) 650 mg Q6H PRN PO .PAIN 1-3 OR TEMP; Start 01/11/19 at 13:00 Albuterol (Proventil 0.083% (Neb)) 2.5 mg Q6 PRN HHN shortness of breath; Start 01/11/19 at 13:00 Metoprolol Succinate (Toprol Xl) 50 mg DAILY PO Last administered on 01/26/19 08:57; Admin Dose 50 MG; Start 01/12/19 at 09:00 Clonidine (Catapres) 0.1 mg Q6H PRN PO systolic BP > 160 Last administered on 01/12/19 21:31; Admin Dose 0.1 MG; Start 01/12/19 at 21:00 Levothyroxine Sodium (Synthroid) 225 mcg DAILY@06 PO Last administered on 01/26/19 06:12; Admin Dose 225 MCG; Start 01/13/19 at 06:00 Allopurinol (Zyloprim) 100 mg DAILY PO Last administered on 01/26/19 08:59; Admin Dose 100 MG; Start 01/13/19 at 09:00 Ascorbic Acid (Vitamin C) 500 mg DAILY PO Last administered on 01/26/19 08:58; Admin Dose 500 MG; Start 01/13/19 at 09:00 Docusate Sodium (Colace) 200 mg QHS PO Last administered on 01/25/19 20:46; Admin Dose 200 MG; Start 01/13/19 at 21:00 Epoetin Ghulam-epbx (RETACRIT(non-esrd)) 10,000 unit Q48H SC Last administered on 01/25/19 18:32; Admin Dose 10,000 UNIT; Start 01/13/19 at 18:00 Ferrous Sulfate (Ferrous Sulfate (Ec)) 325 mg DAILY PO Last administered on 01/26/19 08:59; Admin Dose 325 MG; Start 01/13/19 at 09:00 Folic Acid (Folic Acid) 1 mg DAILY PO Last administered on 01/26/19 08:59; Admin Dose 1 MG; Start 01/13/19 at 09:00 Gabapentin (Neurontin) 100 mg TID PO Last administered on 01/26/19 08:58; Admin Dose 100 MG; Start 01/13/19 at 09:00 Lorazepam (Ativan) 1 mg BID PRN PO ANXIETY Last administered on 01/14/19 20:36; Admin Dose 1 MG; Start 01/13/19 at 06:30 Rifaximin (Xifaxan) 550 mg BID PO Last administered on 01/26/19 08:57; Admin Dose 550 MG; Start 01/13/19 at 09:00 Sodium Bicarbonate (Sodium Bicarbonate Tab) 325 mg TID PO Last administered on 01/26/19 09:01; Admin Dose 325 MG; Start 01/13/19 at 09:00 Tamsulosin HCl (Flomax) 0.4 mg HS PO Last administered on 01/25/19 20:47; Admin Dose 0.4 MG; Start 01/13/19 at 21:00 Thiamine HCl (Vitamin B1) 100 mg DAILY PO Last administered on 01/26/19 08:59; Admin Dose 100 MG; Start 01/13/19 at 09:00 Arformoterol Tartrate (Brovana (Neb)) 2 ml BID RESP THERAPY INH Last administ ered on 01/26/19 07:50; Admin Dose 2 ML; Start 01/13/19 at 09:00 Budesonide (Pulmicort (Neb)) 0.5 mg Q12H RESP THERAPY INH Last administered on 01/26/19 07:50; Admin Dose 0.5 MG; Start 01/13/19 at 09:00 Nicotine (Nicoderm 21 Mg/ 24hr) 1 patch DAILY TRANSDERM Last administered on 01/26/19 08:56; Admin Dose 1 PATCH; Start 01/14/19 at 09:00 Famotidine (Pepcid) 20 mg Q12 PO Last administered on 01/26/19 08:59; Admin Dose 20 MG; Start 01/13/19 at 21:00 Doxycycline Hyclate (Vibramycin) 100 mg 0800,2000 PO Last administered on 01/26/19 08:54; Admin Dose 100 MG; Start 01/15/19 at 20:00 Furosemide (Lasix) 20 mg DAILY PO Last administered on 01/26/19 08:57; Admin Dose 20 MG; Start 01/16/19 at 09:00 Buspirone HCl (Buspar) 10 mg BID PO Last administered on 01/26/19 08:55; Admin Dose 10 MG; Start 01/16/19 at 12:30 Acetaminophen/ Hydrocodone Bitart ([place] (10/325)) 2 tab Q4H PRN PO MODERATE PAIN LEVEL 4-6 Last administered on 01/26/19 07:55; Admin Dose 2 TAB; Start 01/20/19 at 18:30 Amlodipine Besylate (Norvasc) 5 mg BID PO Last administered on 01/26/19 08:58; Admin Dose 5 MG; Start 01/21/19 at 21:00 Metoprolol Succinate (Toprol Xl) 25 mg HS PO Last administered on 01/25/19at 20:46; Admin Dose 25 MG; Start 01/23/19 at 21:00 Hydromorphone HCl (Dilaudid) 2 mg Q4H PRN IV SEVERE PAIN LEVEL 7-10 Last administered on 01/26/19at 11:38; Admin Dose 2 MG; Start 01/25/19 at 14:00 Lorazepam (Ativan) 1 mg Q6H PRN IV ANXIETY Last administered on 01/26/19 09:37; Admin Dose 1 MG; Start 01/25/19 at 14:00 Dorzolamide/ Timolol (Cosopt Pf Eye Drops) 1 drop BID LEFT EYE Last administered on 01/26/19 08:59; Admin Dose 1 DROP; Start 01/26/19 at 09:00 Lactulose (Enulose) 30 gm BID PO Last administered on 01/26/19 09:03; Admin Dose 30 GM; Start 01/26/19 at 09:00 Simethicone (Mylicon) 80 mg Q6 PRN PO bloating; Start 01/26/19 at 07:00 Eye Lubricant (Artificial Tears Oph) 2 drop Q6H PRN BOTH EYES DRY EYES; Start 01/26/19 at 07:00 Bisacodyl (Dulcolax) 10 mg ONCE ONCE PO ; Start 01/26/19 at 17:00; Stop 01/26/19 at 17:01 Polyethylene Glycol/ Electrolytes (Golytely) 2,000 ml ONCE ONCE PO ; Start 01/26/19 at 17:00; Stop 01/26/19 at 17:01 Polyethylene Glycol/ Electrolytes (Golytely) 2,000 ml 2nd Dose (GI Prep) ONCE PO ; Start 01/26/19 at 20:00; Stop 01/26/19 at 20:01 Bisacodyl (Dulcolax) 10 mg 2nd Dose (GI Prep) ONCE PO ; Start 01/26/19 at 20:00; Stop 01/26/19 at 20:01 Lubiprostone (Amitiza) 24 mcg BID PO ; Start 01/26/19 at 09:00 Polyethylene Glycol (Miralax) 17 gm DAILY PO ; Start 01/27/19 at 09:00 WERNER KING Jan 26, 2019 14:07
[2019-01-26 14:34] VITALS: BP 143/64; PULSE 77; RESP 19
--- NOTE | 2019-01-26 14:46 | CONS ---
Assessment/Plan Assessment/Plan Hospital Course (Demo Recall) Awake, feels good, eating lunch Abdominal ultrasound revealed no ascites Antimicrobials: Invanz doxycycline Physical examination: This is a wasted well-developed chronically ill-appearing elderly man who is in no distress. Head atraumatic normocephalic sclera nonicteric. Neck is supple chest rise symmetrical breath sounds diminished bases. Heart: S1-S2. Abdomen soft bowel sounds present. Extremities without BLE edema, mild erythema, no cyanosis. Assessment: 1. Systemic inflammatory response syndrome with ongoing leukocytosis, clinically stable 2. S/p COPD exacerbation 3. Alcohol abuse 4. Bilateral lower extremities acute on chronic cellulitis/chronic venous stasis 5. Cirrhosis with recurrent ascites 6. Chronic kidney disease 7. CHF 8. Noncompliance Plan: Clinically unchanged, stable, dc Invanz, continue oral Doxycycline Consultation Date/Type/Reason Admit Date/Time Jan 11, 2019 at 09:53 Initial Consult Date Type of Consult id Requesting Provider: KOKO MARLOW MD Date/Time of Note DATE: 01/26/19 TIME: 14:45 Exam/Review of Systems Exam Vitals Vital Signs Date Temp Pulse Resp B/P (MAP) Pulse Ox O2 O2 Flow FiO2 Time Delivery Rate 01/26/19 97.8 77 19 143/64 98 14:34 (90) 01/26/19 21 07:48 01/25/19 Room Air 15:03 Intake and Output 01/25/19 01/25/19 01/26/19 1515:00 23:00 07:00 IntakeIntake Total 920 ml 3000 ml OutputOutput Total 600 ml 200 ml 600 ml BalanceBalance 320 ml -200 ml 2400 ml Results Result Diagram: 01/26/19 0542 01/26/19 0542 Results 24hrs Laboratory Tests Test 01/26/19 05:42 White Blood Count 18.2 H Red Blood Count 5.00 Hemoglobin 10.4 L Hematocrit 37.5 L Mean Corpuscular Volume 75.0 L Mean Corpuscular Hemoglobin 20.8 L Mean Corpuscular Hemoglobin Concent 27.7 L Red Cell Distribution Width 23.4 H Platelet Count 290 Mean Platelet Volume Immature Granulocytes % 3.700 H Neutrophils % 63.4 Lymphocytes % 8.0 L Monocytes % 19.5 H Eosinophils % 4.1 Basophils % 1.3 Nucleated Red Blood Cells % 0.2 H Immature Granulocytes # 0.680 H Neutrophils # 11.5 H Lymphocytes # 1.5 Monocytes # 3.6 H Eosinophils # 0.7 H Basophils # 0.2 H Nucleated Red Blood Cells # 0.0 Sodium Level 140 Potassium Level 5.7 H Chloride Level 113 H Carbon Dioxide Level 19 L Anion Gap 8 Blood Urea Nitrogen 34 H Creatinine 1.48 H Est Glomerular Filtrat Rate mL/min 48 L Glucose Level 85 Calcium Level 9.3 Medications Medication Current Medications IV Flush (NS 3 ml) 3 ml PER PROTOCOL IV ; Start 01/11/19 at 13:00 Ondansetron HCl (Zofran Inj) 4 mg Q6H PRN IV NAUSEA/VOMITING; Start 01/11/19 at 13:00 Acetaminophen (Tylenol Tab) 650 mg Q6H PRN PO .PAIN 1-3 OR TEMP; Start 01/11/19 at 13:00 Albuterol (Proventil 0.083% (Neb)) 2.5 mg Q6 PRN HHN shortness of breath; Start 01/11/19 at 13:00 Metoprolol Succinate (Toprol Xl) 50 mg DAILY PO Last administered on 01/26/19at 08:57; Admin Dose 50 MG; Start 01/12/19 at 09:00 Clonidine (Catapres) 0.1 mg Q6H PRN PO systolic BP > 160 Last administered on 01/12/19at 21:31; Admin Dose 0.1 MG; Start 01/12/19 at 21:00 Levothyroxine Sodium (Synthroid) 225 mcg DAILY@06 PO Last administered on 01/26/19at 06:12; Admin Dose 225 MCG; Start 01/13/19 at 06:00 Allopurinol (Zyloprim) 100 mg DAILY PO Last administered on 01/26/19 08:59; Admin Dose 100 MG; Start 01/13/19 at 09:00 Ascorbic Acid (Vitamin C) 500 mg DAILY PO Last administered on 01/26/19at 08:58; Admin Dose 500 MG; Start 01/13/19 at 09:00 Docusate Sodium (Colace) 200 mg QHS PO Last administered on 01/25/19at 20:46; Admin Dose 200 MG; Start 01/13/19 at 21:00 Epoetin Ghulam-epbx (RETACRIT(non-esrd)) 10,000 unit Q48H SC Last administered on 01/25/19 18:32; Admin Dose 10,000 UNIT; Start 01/13/19 at 18:00 Ferrous Sulfate (Ferrous Sulfate (Ec)) 325 mg DAILY PO Last administered on 01/26/19 08:59; Admin Dose 325 MG; Start 01/13/19 at 09:00 Folic Acid (Folic Acid) 1 mg DAILY PO Last administered on 01/26/19 08:59; Admin Dose 1 MG; Start 01/13/19 at 09:00 Gabapentin (Neurontin) 100 mg TID PO Last administered on 01/26/19 14:07; Admin Dose 100 MG; Start 01/13/19 at 09:00 Lorazepam (Ativan) 1 mg BID PRN PO ANXIETY Last administered on 01/14/19 20:36; Admin Dose 1 MG; Start 01/13/19 at 06:30 Rifaximin (Xifaxan) 550 mg BID PO Last administered on 01/26/19 08:57; Admin Dose 550 MG; Start 01/13/19 at 09:00 Sodium Bicarbonate (Sodium Bicarbonate Tab) 325 mg TID PO Last administered on 01/26/19 14:07; Admin Dose 325 MG; Start 01/13/19 at 09:00 Tamsulosin HCl (Flomax) 0.4 mg HS PO Last administered on 01/25/19 20:47; Admin Dose 0.4 MG; Start 01/13/19 at 21:00 Thiamine HCl (Vitamin B1) 100 mg DAILY PO Last administered on 01/26/19 08:59; Admin Dose 100 MG; Start 01/13/19 at 09:00 Arformoterol Tartrate (Brovana (Neb)) 2 ml BID RESP THERAPY INH Last administered on 01/26/19 07:50; Admin Dose 2 ML; Start 01/13/19 at 09:00 Budesonide (Pulmicort (Neb)) 0.5 mg Q12H RESP THERAPY INH Last administered on 01/26/19 07:50; Admin Dose 0.5 MG; Start 01/13/19 at 09:00 Nicotine (Nicoderm 21 Mg/ 24hr) 1 patch DAILY TRANSDERM Last administered on 01/26/19 08:56; Admin Dose 1 PATCH; Start 01/14/19 at 09:00 Famotidine (Pepcid) 20 mg Q12 PO Last administered on 01/26/19 08:59; Admin Dose 20 MG; Start 01/13/19 at 21:00 Doxycycline Hyclate (Vibramycin) 100 mg 0800,1999 PO Last administered on 01/26/19 08:54; Admin Dose 100 MG; Start 01/15/19 at 20:00 Furosemide (Lasix) 20 mg DAILY PO Last administered on 01/26/19 08:57; Admin Dose 20 MG; Start 01/16/19 at 09:00 Buspirone HCl (Buspar) 10 mg BID PO Last administered on 01/26/19 08:55; Admin Dose 10 MG; Start 01/16/19 at 12:30 Acetaminophen/ Hydrocodone Bitart ([place] (10/325)) 2 tab Q4H PRN PO MODERATE PAIN LEVEL 4-6 Last administered on 01/26/19 14:07; Admin Dose 2 TAB; Start 01/20/19 at 18:30 Amlodipine Besylate (Norvasc) 5 mg BID PO Last administered on 01/26/19 08:58; Admin Dose 5 MG; Start 01/21/19 at 21:00 Metoprolol Succinate (Toprol Xl) 25 mg HS PO Last administered on 01/25/19 20:46; Admin Dose 25 MG; Start 01/23/19 at 21:00 Hydromorphone HCl (Dilaudid) 2 mg Q4H PRN IV SEVERE PAIN LEVEL 7-10 Last administered on 01/26/19 11:38; Admin Dose 2 MG; Start 01/25/19 at 14:00 Lorazepam (Ativan) 1 mg Q6H PRN IV ANXIETY Last administered on 01/26/19 09:37; Admin Dose 1 MG; Start 01/25/19 at 14:00 Dorzolamide/ Timolol (Cosopt Pf Eye Drops) 1 drop BID LEFT EYE Last administered on 01/26/19 08:59; Admin Dose 1 DROP; Start 01/26/19 at 09:00 Lactulose (Enulose) 30 gm BID PO Last administered on 01/26/19 09:03; Admin Dose 30 GM; Start 01/26/19 at 09:00 Simethicone (Mylicon) 80 mg Q6 PRN PO bloating; Start 01/26/19 at 07:00 Eye Lubricant (Artificial Tears Oph) 2 drop Q6H PRN BOTH EYES DRY EYES; Start 01/26/19 at 07:00 Bisacodyl (Dulcolax) 10 mg ONCE ONCE PO ; Start 01/26/19 at 17:00; Stop 01/26/19 at 17:01 Polyethylene Glycol/ Electrolytes (Golytely) 2,000 ml ONCE ONCE PO ; Start 01/26/19 at 17:00; Stop 01/26/19 at 17:01 Polyethylene Glycol/ Electrolytes (Golytely) 2,000 ml 2nd Dose (GI Prep) ONCE PO ; Start 01/26/19 at 20:00; Stop 01/26/19 at 20:01 Bisacodyl (Dulcolax) 10 mg 2nd Dose (GI Prep) ONCE PO ; Start 01/26/19 at 20:00; Stop 01/26/19 at 20:01 Lubiprostone (Amitiza) 24 mcg BID PO ; Start 01/26/19 at 09:00 Polyethylene Glycol (Miralax) 17 gm DAILY PO ; Start 01/27/19 at 09:00 MELISSA NAHS NP Jan 26, 2019 14:46
[2019-01-26] MEDS ORDERED: BISACODYL (EC) 5 MG TAB PO ONE ×2 (17:00→20:00)
[2019-01-26] MEDS ORDERED: PEG/ELECTROLYTES 4L BTL PO ONE ×2 (17:00→20:00)
--- NOTE | 2019-01-26 17:23 | PREAC ---
Date/Time of Note Date/Time of Note DATE: 01/26/19 TIME: 17:21 Anesthesia Eval and Record Evaluation Time Pre-Procedure Interview DATE: 01/26/19 TIME: 17:21 Age 63 Sex male NPO: 8 hrs Preoperative diagnosis anemia Planned procedure Colonoscopy Past Medical History Past Medical History: Includes Cardio: HTN, CHF Endo: Hypothyroid Pulm: Smoking Hx, COPD Renal: TRENT Hepatic: Alcohol abuse, Cirrhosis GI: Obesity Heme: Anemia Surgery & Anesthesia Issues No known issue Meds Anticoagulation: No Beta Tari within 24 hr: No Reason Beta Tari not given: Pt. not on B-Tari Reported Medications Thiamine* (Vitamin B-1*) 100 Mg Tablet, 100 MG PO DAILY, TAB 01/11/19 Sodium Bicarbonate* (Sodium Bicarbonate*) 325 Mg Tablet, 325 MG PO TID, TAB 01/11/19 Simethicone* (Mylicon*) 80 Mg Tab, 80 MG PO Q6H, TAB 01/11/19 Albuterol Sulfate (Proair Respiclick) 90 Mcg Aer.pow.ba, 2 PUFFS INHALATION Q4H PRN for SHORTNESS OF BREATH, #1 BOTTLE 01/11/19 Pantoprazole* (Pantoprazole*) 40 Mg Tablet.dr, 40 MG PO AC BREAKFAST, TAB 01/11/19 Oxycodone Hcl* (Oxycontin*) 15 Mg Tab.sr.12h, 15 MG PO Q6H PRN for PAIN, TAB 01/11/19 Oxycodone Hcl* (Oxycontin*) 10 Mg Tab.sr.12h, 10 MG PO Q8H PRN for PAIN, TAB 01/11/19 Allopurinol* (Allopurinol*) 100 Mg Tablet, 100 MG PO DAILY, TAB 01/11/19 Rifaximin* (Xifaxan*) 550 Mg Tablet, 550 MG PO BID, TAB 01/11/19 Ondansetron Hcl* (Zofran*) 4 Mg Tab, 4 MG PO Q4H PRN for NAUSEA AND OR VOMITING, TAB 01/11/19 Metoprolol Tartrate* (Lopressor*) 100 Mg Tablet, 100 MG PO DAILY, #60 TAB HOLD FOR SBP<110 OR HR<60 01/11/19 Levothyroxine Sodium* (Levothyroxine Sodium*) 200 Mcg Tablet, 200 MCG PO BEFORE BREAKFAST, #30 TAB 01/11/19 Levothyroxine Sodium* (Levothyroxine Sodium*) 25 Mcg Tablet, 25 MCG PO BEFORE BREAKFAST, #30 TAB 01/11/19 Ipratropium-Albuterol (Ipratropium-Albuterol) 0.5-3 Mg/3 Ml Ampul.neb, 3 ML INHALATION Q6 PRN for WHEEZING AND SOB, #30 VIAL 01/11/19 Hydrocodone/Acetaminophen ([place] 5-325 Tablet) 1 Each Tablet, 1 EACH PO Q6H PRN for PAIN, TAB 01/11/19 Gabapentin* (Gabapentin*) 100 Mg Capsule, 100 MG PO TID, #90 CAP 01/11/19 Furosemide* (Furosemide*) 40 Mg Tablet, 40 MG PO DAILY, TAB 01/11/19 Folic Acid* (Folic Acid*) 1 Mg Tablet, 1 MG PO DAILY, TAB 01/11/19 Tamsulosin Hcl* (Flomax*) 0.4 Mg Cap.er.24h, 0.4 MG PO HS, CAP 01/11/19 Ferrous Sulfate* (Ferrous Sulfate*) 325 Mg Tabec, 325 MG PO DAILY, TAB 01/11/19 Ertapenem Sodium (Invanz) 1 Gm Vial, 1 GM IM DAILY, VIAL 01/11/19 Epoetin Ghulam (Epogen) 10,000 Units/Ml Soln, 16289 UNITS SC Q TUE,SHARONA,SAT, VIAL 01/11/19 Lactulose* (Lactulose*) 10 Gm/15 Ml Solution, 30 ML PO Q6, ML 01/11/19 Docusate Sodium* (Colace*) 100 Mg Capsule, 200 MG PO QHS, #30 CAP 01/11/19 Dorzolamide-Timolol* (Cosopt*) 2%-0.5% - 10 Ml Soln, 1 DROP BOTH EYES BID, BOTTLE 01/11/19 Budesonide* (Budesonide*) 0.5 Mg/2 Ml Ampul.neb, 0.5 MG INHALATION BID, AMP 01/11/19 Lorazepam* (Lorazepam*) 1 Mg Tablet, 1 MG PO BID PRN for ANXIETY, #30 TAB 01/11/19 Ascorbic Acid (Vitamin C) 500 Mg Tab, 500 MG PO DAILY, TAB 01/11/19 Arformoterol Tartrate (Brovana) 15 Mcg/2 Ml Vial.neb, 15 MCG INHALATION BID, VIAL 01/11/19 Spironolactone* (Aldactone*) 50 Mg Tablet, 50 MG PO DAILY, #30 TAB HOLD FOR SBP<110 01/11/19 Salmeterol Xinaf/Fluticasone* (Advair*) 250-50 Diskus Inhaler, 1 INH INHALATION BID, #1 INHALER 01/11/19 Acetaminophen* (Acetaminophen*) 500 MG Extra Strength Tablet, 500 MG PO Q4H PRN for MILD PAIN LEVEL 1-3, TAB 01/11/19 Current Medications IV Flush (NS 3 ml) 3 ml PER PROTOCOL IV ; Start 01/11/19 at 13:00 Ondansetron HCl (Zofran Inj) 4 mg Q6H PRN IV NAUSEA/VOMITING; Start 01/11/19 at 13:00 Acetaminophen (Tylenol Tab) 650 mg Q6H PRN PO .PAIN 1-3 OR TEMP; Start 01/11/19 at 13:00 Albuterol (Proventil 0.083% (Neb)) 2.5 mg Q6 PRN HHN shortness of breath; Start 01/11/19 at 13:00 Metoprolol Succinate (Toprol Xl) 50 mg DAILY PO Last administered on 01/26/19at 08:57; Admin Dose 50 MG; Start 01/12/19 at 09:00 Clonidine (Catapres) 0.1 mg Q6H PRN PO systolic BP > 160 Last administered on 01/12/19at 21:31; Admin Dose 0.1 MG; Start 01/12/19 at 21:00 Levothyroxine Sodium (Synthroid) 225 mcg DAILY@06 PO Last administered on 01/26/19at 06:12; Admin Dose 225 MCG; Start 01/13/19 at 06:00 Allopurinol (Zyloprim) 100 mg DAILY PO Last administered on 01/26/19at 08:59; Admin Dose 100 MG; Start 01/13/19 at 09:00 Ascorbic Acid (Vitamin C) 500 mg DAILY PO Last administered on 01/26/19at 08:58; Admin Dose 500 MG; Start 01/13/19 at 09:00 Docusate Sodium (Colace) 200 mg QHS PO Last administered on 01/25/19at 20:46; Admin Dose 200 MG; Start 01/13/19 at 21:00 Epoetin Ghulam-epbx (RETACRIT(non-esrd)) 10,000 unit Q48H SC Last administered on 01/25/19 18:32; Admin Dose 10,000 UNIT; Start 01/13/19 at 18:00 Ferrous Sulfate (Ferrous Sulfate (Ec)) 325 mg DAILY PO Last administered on 01/26/19 08:59; Admin Dose 325 MG; Start 01/13/19 at 09:00 Folic Acid (Folic Acid) 1 mg DAILY PO Last administered on 01/26/19 08:59; Admin Dose 1 MG; Start 01/13/19 at 09:00 Gabapentin (Neurontin) 100 mg TID PO Last administered on 01/26/19 14:07; Admin Dose 100 MG; Start 01/13/19 at 09:00 Lorazepam (Ativan) 1 mg BID PRN PO ANXIETY Last administered on 01/14/19 20:36; Admin Dose 1 MG; Start 01/13/19 at 06:30 Rifaximin (Xifaxan) 550 mg BID PO Last administered on 01/26/19 08:57; Admin Dose 550 MG; Start 01/13/19 at 09:00 Sodium Bicarbonate (Sodium Bicarbonate Tab) 325 mg TID PO Last administered on 01/26/19 14:07; Admin Dose 325 MG; Start 01/13/19 at 09:00 Tamsulosin HCl (Flomax) 0.4 mg HS PO Last administered on 01/25/19 20:47; Admin Dose 0.4 MG; Start 01/13/19 at 21:00 Thiamine HCl (Vitamin B1) 100 mg DAILY PO Last administered on 01/26/19 08:59; Admin Dose 100 MG; Start 01/13/19 at 09:00 Arformoterol Tartrate (Brovana (Neb)) 2 ml BID RESP THERAPY INH Last administered on 01/26/19 07:50; Admin Dose 2 ML; Start 01/13/19 at 09:00 Budesonide (Pulmicort (Neb)) 0.5 mg Q12H RESP THERAPY INH Last administered on 01/26/19 07:50; Admin Dose 0.5 MG; Start 01/13/19 at 09:00 Nicotine (Nicoderm 21 Mg/ 24hr) 1 patch DAILY TRANSDERM Last administered on 01/26/19 08:56; Admin Dose 1 PATCH; Start 01/14/19 at 09:00 Famotidine (Pepcid) 20 mg Q12 PO Last administered on 01/26/19 08:59; Admin Dose 20 MG; Start 01/13/19 at 21:00 Doxycycline Hyclate (Vibramycin) 100 mg 0800,2000 PO Last administered on 01/26/19 08:54; Admin Dose 100 MG; Start 01/15/19 at 20:00 Furosemide (Lasix) 20 mg DAILY PO Last administered on 01/26/19 08:57; Admin Dose 20 MG; Start 01/16/19 at 09:00 Buspirone HCl (Buspar) 10 mg BID PO Last administered on 01/26/19 08:55; Admin Dose 10 MG; Start 01/16/19 at 12:30 Acetaminophen/ Hydrocodone Bitart ([place] (10/325)) 2 tab Q4H PRN PO MODERATE PAIN LEVEL 4-6 Last administered on 01/26/19 14:07; Admin Dose 2 TAB; Start 01/20/19 at 18:30 Amlodipine Besylate (Norvasc) 5 mg BID PO Last administered on 01/26/19 08:58; Admin Dose 5 MG; Start 01/21/19 at 21:00 Metoprolol Succinate (Toprol Xl) 25 mg HS PO Last administered on 01/25/19 20:46; Admin Dose 25 MG; Start 01/23/19 at 21:00 Hydromorphone HCl (Dilaudid) 2 mg Q4H PRN IV SEVERE PAIN LEVEL 7-10 Last administered on 01/26/19 16:39; Admin Dose 2 MG; Start 01/25/19 at 14:00 Lorazepam (Ativan) 1 mg Q6H PRN IV ANXIETY Last administered on 01/26/19 09:37; Admin Dose 1 MG; Start 01/25/19 at 14:00 Dorzolamide/ Timolol (Cosopt Pf Eye Drops) 1 drop BID LEFT EYE Last administered on 01/26/19 08:59; Admin Dose 1 DROP; Start 01/26/19 at 09:00 Lactulose (Enulose) 30 gm BID PO Last administered on 01/26/19 09:03; Admin Dose 30 GM; Start 01/26/19 at 09:00 Simethicone (Mylicon) 80 mg Q6 PRN PO bloating; Start 01/26/19 at 07:00 Eye Lubricant (Artificial Tears Oph) 2 drop Q6H PRN BOTH EYES DRY EYES; Start 01/26/19 at 07:00 Polyethylene Glycol/ Electrolytes (Golytely) 2,000 ml 2nd Dose (GI Prep) ONCE PO ; Start 01/26/19 at 20:00; Stop 01/26/19 at 20:01 Bisacodyl (Dulcolax) 10 mg 2nd Dose (GI Prep) ONCE PO ; Start 01/26/19 at 20:00; Stop 01/26/19 at 20:01 Lubiprostone (Amitiza) 24 mcg BID PO ; Start 01/26/19 at 09:00 Polyethylene Glycol (Miralax) 17 gm DAILY PO ; Start 01/27/19 at 09:00 Meds reviewed: Yes Allergies Coded Allergies: Penicillins (Unverified Allergy, Unknown, 01/11/19) Allergies Reviewed: Yes Labs/Studies Labs Reviewed: Reviewed by anesthesiologist Result Diagram: 01/26/19 0542 01/26/19 0542 Laboratory Tests 01/26/19 05:42 test: N/A Studies: ECG (SR), CXR (The cardiomediastinal silhouette is mildly enlarged. Pulmonary vasculature is prominent and slightly indistinct.. No focal consolidation is identified.. There is mild aortic calcification.), 2D Echo (60% EF) Pre-procedure Exam Last vitals Vital Signs Date Temp Pulse Resp B/P (MAP) Pulse Ox O2 O2 Flow FiO2 Time Delivery Rate 01/26/19 97.8 77 19 143/64 98 14:34 (90) 01/26/19 21 07:48 01/25/19 Room Air 15:03 Airway: Adequate mouth opening Mallampati: Mallampati II Teeth: Normal Lung: Normal Heart: Normal ASA Physical Status ASA physical status: 3 Emergency: None Planned Anesthetic General/MAC: MAC Pre-operative Attestations Prior to commencing anesthesia and surgery, the patient was re-evaluated, there was verification of: *The patient's identity *The results of appropriate recent lab work and preoperative vital signs *The above evaluation not changing prior to induction *Anesthetic plan, risk benefits, alternative and complications discussed with patient/family; questions answered; patient/family understands, accepts and wishes to proceed. TRA GARNER Jan 26, 2019 17:23
--- NOTE | 2019-01-26 18:11 | CONS ---
Assessment/Plan Assessment/Plan Assessment/Plan (Daily) 1. acute on chronic renal failure due to Type II hepatorenal syndrome 2. SIRS 3. anemia of CKD 5. Decompensated Liver cirrhosis with Symptomatic ascites 6. H/O HTN 7. h/o Liver cirrhosis with ascites 8. H/o Diastolic CHF 9. Bilateral LE chronic venous stasis 10.H/o BPH on Flomax 11. Acute hyperkalemia Plan: Continue IV abx Ertapenem - plan is to stop it today, renally dose all abx , monitor electrolytes and replace as needed, BUN/Cr- 37/1.48 today - K 5.7- kayexalate given Continue Lasix to 20mg po daily, , , Toprol Xl 50mg/25mg , amlodipine 5 mg po BID on Sodium bicarbonate 325mg PO TID Flomax 0.4mg po daily for BPH will follow up Consultation Date/Type/Reason Admit Date/Time Jan 11, 2019 at 09:53 Initial Consult Date 01/11/19 Type of Consult Nephrology Requesting Provider: KOKO MARLOW MD Date/Time of Note DATE: 01/26/19 TIME: 18:11 Exam/Review of Systems Exam Vitals Vital Signs Date Temp Pulse Resp B/P (MAP) Pulse Ox O2 O2 Flow FiO2 Time Delivery Rate 01/26/19 97.8 77 19 143/64 98 14:34 (90) 01/26/19 21 07:48 01/25/19 Room Air 15:03 Intake and Output 01/25/19 01/25/19 01/26/19 1515:00 23:00 07:00 IntakeIntake Total 920 ml 3000 ml OutputOutput Total 600 ml 200 ml 600 ml BalanceBalance 320 ml -200 ml 2400 ml Exam Constitutional: alert, well developed, obese Respiratory: diminished breath sounds (at bases bilaterally) Cardiovascular: nl pulses, other (s1s2) Gastrointestinal: soft, non-tender Musculoskeletal: muscle weakness Extremities: normal pulses Neurological: nl speech, other (alert/reponsie) Lymph: nontender Results Result Diagram: 01/26/19 0542 01/26/19 0542 Results 24hrs Laboratory Tests Test 01/26/19 05:42 White Blood Count 18.2 H Red Blood Count 5.00 Hemoglobin 10.4 L Hematocrit 37.5 L Mean Corpuscular Volume 75.0 L Mean Corpuscular Hemoglobin 20.8 L Mean Corpuscular Hemoglobin Concent 27.7 L Red Cell Distribution Width 23.4 H Platelet Count 290 Mean Platelet Volume Immature Granulocytes % 3.700 H Neutrophils % 63.4 Lymphocytes % 8.0 L Monocytes % 19.5 H Eosinophils % 4.1 Basophils % 1.3 Nucleated Red Blood Cells % 0.2 H Immature Granulocytes # 0.680 H Neutrophils # 11.5 H Lymphocytes # 1.5 Monocytes # 3.6 H Eosinophils # 0.7 H Basophils # 0.2 H Nucleated Red Blood Cells # 0.0 Sodium Level 140 Potassium Level 5.7 H Chloride Level 113 H Carbon Dioxide Level 19 L Anion Gap 8 Blood Urea Nitrogen 34 H Creatinine 1.48 H Est Glomerular Filtrat Rate mL/min 48 L Glucose Level 85 Calcium Level 9.3 Medications Medication Current Medications IV Flush (NS 3 ml) 3 ml PER PROTOCOL IV ; Start 01/11/19 at 13:00 Ondansetron HCl (Zofran Inj) 4 mg Q6H PRN IV NAUSEA/VOMITING; Start 01/11/19 at 13:00 Acetaminophen (Tylenol Tab) 650 mg Q6H PRN PO .PAIN 1-3 OR TEMP; Start 01/11/19 at 13:00 Albuterol (Proventil 0.083% (Neb)) 2.5 mg Q6 PRN HHN shortness of breath; Start 01/11/19 at 13:00 Metoprolol Succinate (Toprol Xl) 50 mg DAILY PO Last administered on 01/26/19at 08:57; Admin Dose 50 MG; Start 01/12/19 at 09:00 Clonidine (Catapres) 0.1 mg Q6H PRN PO systolic BP > 160 Last administered on 01/12/19at 21:31; Admin Dose 0.1 MG; Start 01/12/19 at 21:00 Levothyroxine Sodium (Synthroid) 225 mcg DAILY@06 PO Last administered on 01/26/19at 06:12; Admin Dose 225 MCG; Start 01/13/19 at 06:00 Allopurinol (Zyloprim) 100 mg DAILY PO Last administered on 01/26/19at 08:59; Admin Dose 100 MG; Start 01/13/19 at 09:00 Ascorbic Acid (Vitamin C) 500 mg DAILY PO Last administered on 01/26/19 08:58; Admin Dose 500 MG; Start 01/13/19 at 09:00 Docusate Sodium (Colace) 200 mg QHS PO Last administered on 01/25/19 20:46; Admin Dose 200 MG; Start 01/13/19 at 21:00 Epoetin Ghulam-epbx (RETACRIT(non-esrd)) 10,000 unit Q48H SC Last administered on 01/25/19 18:32; Admin Dose 10,000 UNIT; Start 01/13/19 at 18:00 Ferrous Sulfate (Ferrous Sulfate (Ec)) 325 mg DAILY PO Last administered on 01/26/19 08:59; Admin Dose 325 MG; Start 01/13/19 at 09:00 Folic Acid (Folic Acid) 1 mg DAILY PO Last administered on 01/26/19 08:59; Admin Dose 1 MG; Start 01/13/19 at 09:00 Gabapentin (Neurontin) 100 mg TID PO Last administered on 01/26/19 14:07; Admin Dose 100 MG; Start 01/13/19 at 09:00 Lorazepam (Ativan) 1 mg BID PRN PO ANXIETY Last administered on 01/14/19 20:36; Admin Dose 1 MG; Start 01/13/19 at 06:30 Rifaximin (Xifaxan) 550 mg BID PO Last administered on 01/26/19 08:57; Admin Dose 550 MG; Start 01/13/19 at 09:00 Sodium Bicarbonate (Sodium Bicarbonate Tab) 325 mg TID PO Last administered on 01/26/19 14:07; Admin Dose 325 MG; Start 01/13/19 at 09:00 Tamsulosin HCl (Flomax) 0.4 mg HS PO Last administered on 01/25/19 20:47; Admin Dose 0.4 MG; Start 01/13/19 at 21:00 Thiamine HCl (Vitamin B1) 100 mg DAILY PO Last administered on 01/26/19 08:59; Admin Dose 100 MG; Start 01/13/19 at 09:00 Arformoterol Tartrate (Brovana (Neb)) 2 ml BID RESP THERAPY INH Last administered on 01/26/19 07:50; Admin Dose 2 ML; Start 01/13/19 at 09:00 Budesonide (Pulmicort (Neb)) 0.5 mg Q12H RESP THERAPY INH Last administered on 01/26/19 07:50; Admin Dose 0.5 MG; Start 01/13/19 at 09:00 Nicotine (Nicoderm 21 Mg/ 24hr) 1 patch DAILY TRANSDERM Last administered on 01/26/19 08:56; Admin Dose 1 PATCH; Start 01/14/19 at 09:00 Famotidine (Pepcid) 20 mg Q12 PO Last administered on 01/26/19 08:59; Admin Dose 20 MG; Start 01/13/19 at 21:00 Doxycycline Hyclate (Vibramycin) 100 mg 0800,1999 PO Last administered on 01/26/19 08:54; Admin Dose 100 MG; Start 01/15/19 at 20:00 Furosemide (Lasix) 20 mg DAILY PO Last administered on 01/26/19 08:57; Admin Dose 20 MG; Start 01/16/19 at 09:00 Buspirone HCl (Buspar) 10 mg BID PO Last administered on 01/26/19 08:55; Admin Dose 10 MG; Start 01/16/19 at 12:30 Acetaminophen/ Hydrocodone Bitart ([place] (10/325)) 2 tab Q4H PRN PO MODERATE PAIN LEVEL 4-6 Last administered on 01/26/19 14:07; Admin Dose 2 TAB; Start 01/20/19 at 18:30 Amlodipine Besylate (Norvasc) 5 mg BID PO Last administered on 01/26/19 08:58; Admin Dose 5 MG; Start 01/21/19 at 21:00 Metoprolol Succinate (Toprol Xl) 25 mg HS PO Last administered on 01/25/19 20:46; Admin Dose 25 MG; Start 01/23/19 at 21:00 Hydromorphone HCl (Dilaudid) 2 mg Q4H PRN IV SEVERE PAIN LEVEL 7-10 Last administered on 01/26/19 16:39; Admin Dose 2 MG; Start 01/25/19 at 14:00 Lorazepam (Ativan) 1 mg Q6H PRN IV ANXIETY Last administered on 01/26/19 09:37; Admin Dose 1 MG; Start 01/25/19 at 14:00 Dorzolamide/ Timolol (Cosopt Pf Eye Drops) 1 drop BID LEFT EYE Last administered on 01/26/19at 08:59; Admin Dose 1 DROP; Start 01/26/19 at 09:00 Lactulose (Enulose) 30 gm BID PO Last administered on 01/26/19at 09:03; Admin Dose 30 GM; Start 01/26/19 at 09:00 Simethicone (Mylicon) 80 mg Q6 PRN PO bloating; Start 01/26/19 at 07:00 Eye Lubricant (Artificial Tears Oph) 2 drop Q6H PRN BOTH EYES DRY EYES; Start 01/26/19 at 07:00 Polyethylene Glycol/ Electrolytes (Golytely) 2,000 ml 2nd Dose (GI Prep) ONCE PO ; Start 01/26/19 at 20:00; Stop 01/26/19 at 20:01 Bisacodyl (Dulcolax) 10 mg 2nd Dose (GI Prep) ONCE PO ; Start 01/26/19 at 20:00; Stop 01/26/19 at 20:01 Lubiprostone (Amitiza) 24 mcg BID PO ; Start 01/26/19 at 09:00 Polyethylene Glycol (Miralax) 17 gm DAILY PO ; Start 01/27/19 at 09:00 ELADIO DELGADO MD Jan 26, 2019 18:11
[2019-01-26 19:27] VITALS: BP 138/64; PULSE 80; RESP 18
[2019-01-26] MEDS: DOCUSATE SODIUM 100 MG CAP PO SCH (20:10)
[2019-01-26] MEDS: METOPROLOL (XL) 25 MG TAB PO SCH (20:10)
[2019-01-26] MEDS: TAMSULOSIN (SR) 0.4 MG CAP PO SCH (20:11)
[2019-01-26] MEDS: ONDANSETRON 4 MG INJ IV PRN (20:54)
[2019-01-27 01:01] VITALS: BP 132/61; PULSE 66; RESP 18
[2019-01-27] MEDS: HYDROmorphONE 2 MG/ML SYG IV PRN ×5 (02:32→21:37)
[2019-01-27] MEDS: LEVOTHYROXINE 75 MCG TAB PO SCH (05:08)
[2019-01-27 07:54] VITALS: BP 139/63; PULSE 72; RESP 18
[2019-01-27] MEDS: DOXYCYCLINE 100 MG TAB PO SCH ×2 (08:00→21:24)
[2019-01-27] MEDS: BUDESONIDE (NEB) 0.5MG/2ML AMP INH SCH ×2 (08:00→20:16)
[2019-01-27] MEDS: ARFORMOTEROL TARTRATE 15MCG/2 ML AMP INH SCH ×2 (08:47→20:16)
[2019-01-27] MEDS: LACTULOSE 30ML CUP PO SCH ×2 (09:00→21:21)
[2019-01-27] MEDS: RIFAXIMIN 550 MG TAB PO SCH ×2 (09:00→21:23)
[2019-01-27] MEDS: FUROSEMIDE 20 MG TAB PO SCH (09:00)
[2019-01-27] MEDS: GABAPENTIN 100 MG CAP PO SCH ×3 (09:00→21:23)
[2019-01-27] MEDS: FOLIC ACID 1 MG TAB PO SCH (09:00)
[2019-01-27] MEDS: DORZOLAMIDE/TIMOLOL/PF 0.2 ML DROPERETTE LEFT EYE SCH ×3 (09:00→21:24)
[2019-01-27] MEDS: POLYETHYLENE GLYCOL 17 GM PACKET PO SCH (09:00)
[2019-01-27] MEDS: AMLODIPINE 5 MG TAB PO SCH ×2 (09:00→21:24)
[2019-01-27] MEDS: BUSPIRONE 10 MG TAB PO SCH ×2 (09:00→21:23)
[2019-01-27] MEDS: FAMOTIDINE 20 MG TAB PO SCH ×2 (09:00→21:23)
[2019-01-27] MEDS: ASCORBIC ACID 500 MG TAB PO SCH (09:00)
[2019-01-27] MEDS: METOPROLOL (XL) 50 MG TAB PO SCH (09:00)
[2019-01-27] MEDS: FERROUS SULFATE (EC) 325 MG TAB PO SCH (09:00)
[2019-01-27] MEDS: LUBIPROSTONE 24 MCG CAP PO SCH ×2 (09:00→21:23)
[2019-01-27] MEDS: THIAMINE 100 MG TAB PO SCH (09:00)
[2019-01-27] MEDS: LORAZEPAM 2 MG INJ IV PRN ×2 (10:09→19:39)
[2019-01-27] MEDS: NICOTINE (21 MG/24 HR) PATCH TRANSDERM SCH (10:12)
--- NOTE | 2019-01-27 10:38 | CONS ---
Consult Date/Type/Reason Admit Date/Time Jan 11, 2019 at 09:53 Initial Consult Date 01/12/19 Requesting Provider: KOKO MARLOW MD Date/Time of Note DATE: 01/27/19 TIME: 10:36 Subjective NO acute events -pt comfortable - siting on sode of bed - no SOB at rest. Improved CHF. ROS: No fever, no chills, no nausea, no vomiting, no diarrhea/constipation No recent weight changes No chest pain, no PND, no orthopnea - chronic SOB No dizziness, blurred vision No thirst, no heat or cold intolerance Objective Vitals Vital Signs Date Temp Pulse Resp B/P (MAP) Pulse Ox O2 O2 Flow FiO2 Time Delivery Rate 01/27/19 98.4 72 18 139/63 95 07:54 (88) 01/27/19 00:44 01/25/19 Room Air 15:03 Intake and Output 01/26/19 01/26/19 01/27/19 1515:00 23:00 07:00 IntakeIntake Total 600 ml 120 ml OutputOutput Total 400 ml 200 ml BalanceBalance 200 ml -80 ml Exam General: WN/WD/NAD, AOx 3 HEENT: Unicetric/atraumatic/EOMI (follow commands) NECK: JVD elevated, no thyromegaly Lymph: no lymphadenopathy HEART: regular with no S3, II/ systolic murmur at apex, PMI L LUNGS: Coarse sounds ABD: soft, NT, ND, +BS : Intact Neuro: non focal SKIN: chronic changes EXT: 1+ edema Results/Medications Result Diagram: 01/26/19 0542 01/26/19 0542 Results 24 hrs Laboratory Tests Test 01/27/19 09:53 White Blood Count Pending Red Blood Count Pending Hemoglobin Pending Hematocrit Pending Mean Corpuscular Volume Pending Mean Corpuscular Hemoglobin Pending Mean Corpuscular Hemoglobin Concent Pending Red Cell Distribution Width Pending Platelet Count Pending Mean Platelet Volume Pending Home Meds Reported Medications Thiamine* (Vitamin B-1*) 100 Mg Tablet, 100 MG PO DAILY, TAB 01/11/19 Sodium Bicarbonate* (Sodium Bicarbonate*) 325 Mg Tablet, 325 MG PO TID, TAB 01/11/19 Simethicone* (Mylicon*) 80 Mg Tab, 80 MG PO Q6H, TAB 01/11/19 Albuterol Sulfate (Proair Respiclick) 90 Mcg Aer.pow.ba, 2 PUFFS INHALATION Q4H PRN for SHORTNESS OF BREATH, #1 BOTTLE 01/11/19 Pantoprazole* (Pantoprazole*) 40 Mg Tablet.dr, 40 MG PO AC BREAKFAST, TAB 01/11/19 Oxycodone Hcl* (Oxycontin*) 15 Mg Tab.sr.12h, 15 MG PO Q6H PRN for PAIN, TAB 01/11/19 Oxycodone Hcl* (Oxycontin*) 10 Mg Tab.sr.12h, 10 MG PO Q8H PRN for PAIN, TAB 01/11/19 Allopurinol* (Allopurinol*) 100 Mg Tablet, 100 MG PO DAILY, TAB 01/11/19 Rifaximin* (Xifaxan*) 550 Mg Tablet, 550 MG PO BID, TAB 01/11/19 Ondansetron Hcl* (Zofran*) 4 Mg Tab, 4 MG PO Q4H PRN for NAUSEA AND OR VOMITING, TAB 01/11/19 Metoprolol Tartrate* (Lopressor*) 100 Mg Tablet, 100 MG PO DAILY, #60 TAB HOLD FOR SBP<110 OR HR<60 01/11/19 Levothyroxine Sodium* (Levothyroxine Sodium*) 200 Mcg Tablet, 200 MCG PO BEFORE BREAKFAST, #30 TAB 01/11/19 Levothyroxine Sodium* (Levothyroxine Sodium*) 25 Mcg Tablet, 25 MCG PO BEFORE BREAKFAST, #30 TAB 01/11/19 Ipratropium-Albuterol (Ipratropium-Albuterol) 0.5-3 Mg/3 Ml Ampul.neb, 3 ML INHALATION Q6 PRN for WHEEZING AND SOB, #30 VIAL 01/11/19 Hydrocodone/Acetaminophen ([place] 5-325 Tablet) 1 Each Tablet, 1 EACH PO Q6H PRN for PAIN, TAB 01/11/19 Gabapentin* (Gabapentin*) 100 Mg Capsule, 100 MG PO TID, #90 CAP 01/11/19 Furosemide* (Furosemide*) 40 Mg Tablet, 40 MG PO DAILY, TAB 01/11/19 Folic Acid* (Folic Acid*) 1 Mg Tablet, 1 MG PO DAILY, TAB 01/11/19 Tamsulosin Hcl* (Flomax*) 0.4 Mg Cap.er.24h, 0.4 MG PO HS, CAP 01/11/19 Ferrous Sulfate* (Ferrous Sulfate*) 325 Mg Tabec, 325 MG PO DAILY, TAB 01/11/19 Ertapenem Sodium (Invanz) 1 Gm Vial, 1 GM IM DAILY, VIAL 01/11/19 Epoetin Ghulam (Epogen) 10,000 Units/Ml Soln, 52499 UNITS SC Q TUE,SHARONA,SAT, VIAL 01/11/19 Lactulose* (Lactulose*) 10 Gm/15 Ml Solution, 30 ML PO Q6, ML 01/11/19 Docusate Sodium* (Colace*) 100 Mg Capsule, 200 MG PO QHS, #30 CAP 01/11/19 Dorzolamide-Timolol* (Cosopt*) 2%-0.5% - 10 Ml Soln, 1 DROP BOTH EYES BID, BOTTLE 01/11/19 Budesonide* (Budesonide*) 0.5 Mg/2 Ml Ampul.neb, 0.5 MG INHALATION BID, AMP 01/11/19 Lorazepam* (Lorazepam*) 1 Mg Tablet, 1 MG PO BID PRN for ANXIETY, #30 TAB 01/11/19 Ascorbic Acid (Vitamin C) 500 Mg Tab, 500 MG PO DAILY, TAB 01/11/19 Arformoterol Tartrate (Brovana) 15 Mcg/2 Ml Vial.neb, 15 MCG INHALATION BID, VIAL 01/11/19 Spironolactone* (Aldactone*) 50 Mg Tablet, 50 MG PO DAILY, #30 TAB HOLD FOR SBP<110 01/11/19 Salmeterol Xinaf/Fluticasone* (Advair*) 250-50 Diskus Inhaler, 1 INH INHALATION BID, #1 INHALER 01/11/19 Acetaminophen* (Acetaminophen*) 500 MG Extra Strength Tablet, 500 MG PO Q4H PRN for MILD PAIN LEVEL 1-3, TAB 01/11/19 Medications Current Medications IV Flush (NS 3 ml) 3 ml PER PROTOCOL IV ; Start 01/11/19 at 13:00 Ondansetron HCl (Zofran Inj) 4 mg Q6H PRN IV NAUSEA/VOMITING Last administered on 01/26/19at 20:54; Admin Dose 4 MG; Start 01/11/19 at 13:00 Acetaminophen (Tylenol Tab) 650 mg Q6H PRN PO .PAIN 1-3 OR TEMP; Start 01/11/19 at 13:00 Albuterol (Proventil 0.083% (Neb)) 2.5 mg Q6 PRN HHN shortness of breath; Start 01/11/19 at 13:00 Metoprolol Succinate (Toprol Xl) 50 mg DAILY PO Last administered on 01/26/19 08:57; Admin Dose 50 MG; Start 01/12/19 at 09:00 Clonidine (Catapres) 0.1 mg Q6H PRN PO systolic BP > 160 Last administered on 01/12/19 21:31; Admin Dose 0.1 MG; Start 01/12/19 at 21:00 Levothyroxine Sodium (Synthroid) 225 mcg DAILY@06 PO Last administered on 01/26/19 06:12; Admin Dose 225 MCG; Start 01/13/19 at 06:00 Allopurinol (Zyloprim) 100 mg DAILY PO Last administered on 01/26/19 08:59; Admin Dose 100 MG; Start 01/13/19 at 09:00 Ascorbic Acid (Vitamin C) 500 mg DAILY PO Last administered on 01/26/19 08:58; Admin Dose 500 MG; Start 01/13/19 at 09:00 Docusate Sodium (Colace) 200 mg QHS PO Last administered on 01/26/19 20:10; Admin Dose 200 MG; Start 01/13/19 at 21:00 Epoetin Ghulam-epbx (RETACRIT(non-esrd)) 10,000 unit Q48H SC Last administered on 01/25/19 18:32; Admin Dose 10,000 UNIT; Start 01/13/19 at 18:00 Ferrous Sulfate (Ferrous Sulfate (Ec)) 325 mg DAILY PO Last administered on 01/26/19 08:59; Admin Dose 325 MG; Start 01/13/19 at 09:00 Folic Acid (Folic Acid) 1 mg DAILY PO Last administered on 01/26/19 08:59; Admin Dose 1 MG; Start 01/13/19 at 09:00 Gabapentin (Neurontin) 100 mg TID PO Last administered on 01/26/19 20:11; Admin Dose 100 MG; Start 01/13/19 at 09:00 Lorazepam (Ativan) 1 mg BID PRN PO ANXIETY Last administered on 01/14/19 20:36; Admin Dose 1 MG; Start 01/13/19 at 06:30 Rifaximin (Xifaxan) 550 mg BID PO Last administered on 01/26/19 20:12; Admin Dose 550 MG; Start 01/13/19 at 09:00 Sodium Bicarbonate (Sodium Bicarbonate Tab) 325 mg TID PO Last administered on 01/26/19 20:10; Admin Dose 325 MG; Start 01/13/19 at 09:00 Tamsulosin HCl (Flomax) 0.4 mg HS PO Last administered on 01/26/19 20:11; Admin Dose 0.4 MG; Start 01/13/19 at 21:00 Thiamine HCl (Vitamin B1) 100 mg DAILY PO Last administered on 01/26/19 08:59; Admin Dose 100 MG; Start 01/13/19 at 09:00 Arformoterol Tartrate (Brovana (Neb)) 2 ml BID RESP THERAPY INH Last administered on 01/26/19 07:50; Admin Dose 2 ML; Start 01/13/19 at 09:00 Budesonide (Pulmicort (Neb)) 0.5 mg Q12H RESP THERAPY INH Last administered on 01/26/19 07:50; Admin Dose 0.5 MG; Start 01/13/19 at 09:00 Nicotine (Nicoderm 21 Mg/ 24hr) 1 patch DAILY TRANSDERM Last administered on 01/27/19 10:12; Admin Dose 1 PATCH; Start 01/14/19 at 09:00 Famotidine (Pepcid) 20 mg Q12 PO Last administered on 01/26/19 20:10; Admin Dose 20 MG; Start 01/13/19 at 21:00 Doxycycline Hyclate (Vibramycin) 100 mg 0800,2000 PO Last administered on 01/26/19 20:08; Admin Dose 100 MG; Start 01/15/19 at 20:00 Furosemide (Lasix) 20 mg DAILY PO Last administered on 01/26/19 08:57; Admin Dose 20 MG; Start 01/16/19 at 09:00 Buspirone HCl (Buspar) 10 mg BID PO Last administered on 01/26/19 20:11; Admin Dose 10 MG; Start 01/16/19 at 12:30 Acetaminophen/ Hydrocodone Bitart ([place] (10/325)) 2 tab Q4H PRN PO MODERATE PAIN LEVEL 4-6 Last administered on 01/26/19 14:07; Admin Dose 2 TAB; Start 01/20/19 at 18:30 Amlodipine Besylate (Norvasc) 5 mg BID PO Last administered on 01/26/19 20:11; Admin Dose 5 MG; Start 01/21/19 at 21:00 Metoprolol Succinate (Toprol Xl) 25 mg HS PO Last administered on 01/26/19 20:10; Admin Dose 25 MG; Start 01/23/19 at 21:00 Hydromorphone HCl (Dilaudid) 2 mg Q4H PRN IV SEVERE PAIN LEVEL 7-10 Last administered on 01/27/19 07:50; Admin Dose 2 MG; Start 01/25/19 at 14:00 Lorazepam (Ativan) 1 mg Q6H PRN IV ANXIETY Last administered on 01/27/19 10:09; Admin Dose 1 MG; Start 01/25/19 at 14:00 Dorzolamide/ Timolol (Cosopt Pf Eye Drops) 1 drop BID LEFT EYE Last administered on 01/26/19 08:59; Admin Dose 1 DROP; Start 01/26/19 at 09:00 Lactulose (Enulose) 30 gm BID PO Last administered on 01/26/19 20:11; Admin Dose 30 GM; Start 01/26/19 at 09:00 Simethicone (Mylicon) 80 mg Q6 PRN PO bloating; Start 01/26/19 at 07:00 Eye Lubricant (Artificial Tears Oph) 2 drop Q6H PRN BOTH EYES DRY EYES; Start 01/26/19 at 07:00 Lubiprostone (Amitiza) 24 mcg BID PO Last administered on 01/26/19 20:11; Admin Dose 24 MCG; Start 01/26/19 at 09:00 Polyethylene Glycol (Miralax) 17 gm DAILY PO ; Start 01/27/19 at 09:00 Assessment/Plan Hospital Course (Demo Recall) 1. Congestive heart failure exacerbation, diastolic, acute on chronic - con't diuresis, better now - con't diuresis, better now - much better overall - con't Rx 2. Hypertension - well controlled, con't med rx Reasonably controlled. Treaetd. 3. Shortness of breath secondary to congestive heart failure exacerbation, diastolic, acute on chronic - improved with therapy. Con't Rx. Better 4. Chronic renal failure - good urine output now. 5. Cirrhosis - on meds. Better fluid satus overall. Lost weight. 6. Ascites, recurrent. 7. Hypothyroidism. 8. History of ETOH abuse- avoid hepatotoxic meds. D/C advised. 9. Anemia - H/H stable - no bleeding now. Stable now. NO bleeding now. HALEY LIRIANO MD Jan 27, 2019 10:38
--- NOTE | 2019-01-27 11:25 | CONS ---
Assessment/Plan Assessment/Plan Assessment/Plan (Daily) 1. acute on chronic renal failure due to Type II hepatorenal syndrome 2. SIRS 3. anemia of CKD 5. Decompensated Liver cirrhosis with Symptomatic ascites 6. H/O HTN 7. h/o Liver cirrhosis with ascites 8. H/o Diastolic CHF 9. Bilateral LE chronic venous stasis 10.H/o BPH on Flomax 11. Acute hyperkalemia Plan: s/p IV abx Ertapenam, renally dose all abx , monitor electrolytes and replace as needed, BUN/Cr- 36/1.58 today - K 5.7- kayexalate given Continue Lasix to 20mg po daily, , , Toprol Xl 50mg/25mg , amlodipine 5 mg po BID increase Sodium bicarbonate to 650mg PO TID Flomax 0.4mg po daily for BPH will follow up Consultation Date/Type/Reason Admit Date/Time Jan 11, 2019 at 09:53 Initial Consult Date 01/11/19 Type of Consult Nephrology Requesting Provider: KOKO MARLOW MD Date/Time of Note DATE: 01/27/19 TIME: 11:25 Exam/Review of Systems Exam Vitals Vital Signs Date Temp Pulse Resp B/P (MAP) Pulse Ox O2 O2 Flow FiO2 Time Delivery Rate 01/27/19 98.4 72 18 139/63 95 07:54 (88) 01/27/19 21 00:44 01/25/19 Room Air 15:03 Intake and Output 01/26/19 01/26/19 01/27/19 1515:00 23:00 07:00 IntakeIntake Total 600 ml 120 ml OutputOutput Total 400 ml 200 ml BalanceBalance 200 ml -80 ml Exam Constitutional: alert, well developed, obese Respiratory: diminished breath sounds (at bases bilaterally) Cardiovascular: nl pulses, other (s1s2) Gastrointestinal: soft, non-tender Musculoskeletal: muscle weakness Extremities: normal pulses Neurological: nl speech, other (alert/reponsie) Lymph: nontender Results Result Diagram: 01/27/19 0953 01/27/19 0953 Results 24hrs Laboratory Tests Test 01/27/19 09:53 White Blood Count 18.7 H Red Blood Count 5.17 Hemoglobin 10.8 L Hematocrit 38.9 L Mean Corpuscular Volume 75.2 L Mean Corpuscular Hemoglobin 20.9 L Mean Corpuscular Hemoglobin Concent 27.8 L Red Cell Distribution Width 22.6 H Platelet Count 324 Mean Platelet Volume Immature Granulocytes % 3.400 H Neutrophils % 64.5 Lymphocytes % 8.1 L Monocytes % 18.8 H Eosinophils % 3.9 Basophils % 1.3 Nucleated Red Blood Cells % 0.2 H Immature Granulocytes # 0.630 H Neutrophils # 12.1 H Lymphocytes # 1.5 Monocytes # 3.5 H Eosinophils # 0.7 H Basophils # 0.2 H Nucleated Red Blood Cells # 0.0 Prothrombin Time 16.0 H Prothrombin Time Ratio 1.3 INR International Normalized Ratio 1.27 Activated Partial Thromboplast Time 37.2 H Sodium Level 141 Potassium Level 5.7 H Chloride Level 117 H Carbon Dioxide Level 14 L Anion Gap 10 Blood Urea Nitrogen 36 H Creatinine 1.58 H Est Glomerular Filtrat Rate mL/min 45 L Glucose Level 67 #L Calcium Level 9.2 Medications Medication Current Medications IV Flush (NS 3 ml) 3 ml PER PROTOCOL IV ; Start 01/11/19 at 13:00 Ondansetron HCl (Zofran Inj) 4 mg Q6H PRN IV NAUSEA/VOMITING Last administered on 01/26/19at 20:54; Admin Dose 4 MG; Start 01/11/19 at 13:00 Acetaminophen (Tylenol Tab) 650 mg Q6H PRN PO .PAIN 1-3 OR TEMP; Start 01/11/19 at 13:00 Albuterol (Proventil 0.083% (Neb)) 2.5 mg Q6 PRN HHN shortness of breath; Start 01/11/19 at 13:00 Metoprolol Succinate (Toprol Xl) 50 mg DAILY PO Last administered on 01/26/19at 08:57; Admin Dose 50 MG; Start 01/12/19 at 09:00 Clonidine (Catapres) 0.1 mg Q6H PRN PO systolic BP > 160 Last administered on 01/12/19at 21:31; Admin Dose 0.1 MG; Start 01/12/19 at 21:00 Levothyroxine Sodium (Synthroid) 225 mcg DAILY@06 PO Last administered on 01/26/19at 06:12; Admin Dose 225 MCG; Start 01/13/19 at 06:00 Allopurinol (Zyloprim) 100 mg DAILY PO Last administered on 01/26/19 08:59; Admin Dose 100 MG; Start 01/13/19 at 09:00 Ascorbic Acid (Vitamin C) 500 mg DAILY PO Last administered on 01/26/19 08:58; Admin Dose 500 MG; Start 01/13/19 at 09:00 Docusate Sodium (Colace) 200 mg QHS PO Last administered on 01/26/19 20:10; Admin Dose 200 MG; Start 01/13/19 at 21:00 Epoetin Ghulam-epbx (RETACRIT(non-esrd)) 10,000 unit Q48H SC Last administered on 01/25/19 18:32; Admin Dose 10,000 UNIT; Start 01/13/19 at 18:00 Ferrous Sulfate (Ferrous Sulfate (Ec)) 325 mg DAILY PO Last administered on 01/26/19 08:59; Admin Dose 325 MG; Start 01/13/19 at 09:00 Folic Acid (Folic Acid) 1 mg DAILY PO Last administered on 01/26/19 08:59; Admin Dose 1 MG; Start 01/13/19 at 09:00 Gabapentin (Neurontin) 100 mg TID PO Last administered on 01/26/19 20:11; Admin Dose 100 MG; Start 01/13/19 at 09:00 Lorazepam (Ativan) 1 mg BID PRN PO ANXIETY Last administered on 01/14/19 20:36; Admin Dose 1 MG; Start 01/13/19 at 06:30 Rifaximin (Xifaxan) 550 mg BID PO Last administered on 01/26/19 20:12; Admin Dose 550 MG; Start 01/13/19 at 09:00 Sodium Bicarbonate (Sodium Bicarbonate Tab) 325 mg TID PO Last administered on 01/26/19 20:10; Admin Dose 325 MG; Start 01/13/19 at 09:00 Tamsulosin HCl (Flomax) 0.4 mg HS PO Last administered on 01/26/19 20:11; Admin Dose 0.4 MG; Start 01/13/19 at 21:00 Thiamine HCl (Vitamin B1) 100 mg DAILY PO Last administered on 01/26/19 08:59; Admin Dose 100 MG; Start 01/13/19 at 09:00 Arformoterol Tartrate (Brovana (Neb)) 2 ml BID RESP THERAPY INH Last administered on 01/26/19 07:50; Admin Dose 2 ML; Start 01/13/19 at 09:00 Budesonide (Pulmicort (Neb)) 0.5 mg Q12H RESP THERAPY INH Last administered on 01/26/19 07:50; Admin Dose 0.5 MG; Start 01/13/19 at 09:00 Nicotine (Nicoderm 21 Mg/ 24hr) 1 patch DAILY TRANSDERM Last administered on 01/27/19 10:12; Admin Dose 1 PATCH; Start 01/14/19 at 09:00 Famotidine (Pepcid) 20 mg Q12 PO Last administered on 01/26/19 20:10; Admin Dose 20 MG; Start 01/13/19 at 21:00 Doxycycline Hyclate (Vibramycin) 100 mg 08,1999 PO Last administered on 01/26/19 20:08; Admin Dose 100 MG; Start 01/15/19 at 20:00 Furosemide (Lasix) 20 mg DAILY PO Last administered on 01/26/19 08:57; Admin Dose 20 MG; Start 01/16/19 at 09:00 Buspirone HCl (Buspar) 10 mg BID PO Last administered on 01/26/19 20:11; Admin Dose 10 MG; Start 01/16/19 at 12:30 Acetaminophen/ Hydrocodone Bitart ([place] (10/325)) 2 tab Q4H PRN PO MODERATE PAIN LEVEL 4-6 Last administered on 01/26/19 14:07; Admin Dose 2 TAB; Start 01/20/19 at 18:30 Amlodipine Besylate (Norvasc) 5 mg BID PO Last administered on 01/26/19 20:11; Admin Dose 5 MG; Start 01/21/19 at 21:00 Metoprolol Succinate (Toprol Xl) 25 mg HS PO Last administered on 01/26/19 20:10; Admin Dose 25 MG; Start 01/23/19 at 21:00 Hydromorphone HCl (Dilaudid) 2 mg Q4H PRN IV SEVERE PAIN LEVEL 7-10 Last administered on 01/27/19 07:50; Admin Dose 2 MG; Start 01/25/19 at 14:00 Lorazepam (Ativan) 1 mg Q6H PRN IV ANXIETY Last administered on 4/23/19at 10:09; Admin Dose 1 MG; Start 01/25/19 at 14:00 Dorzolamide/ Timolol (Cosopt Pf Eye Drops) 1 drop BID LEFT EYE Last administered on 01/26/19 08:59; Admin Dose 1 DROP; Start 01/26/19 at 09:00 Lactulose (Enulose) 30 gm BID PO Last administered on 01/26/19at 20:11; Admin Dose 30 GM; Start 01/26/19 at 09:00 Simethicone (Mylicon) 80 mg Q6 PRN PO bloating; Start 01/26/19 at 07:00 Eye Lubricant (Artificial Tears Oph) 2 drop Q6H PRN BOTH EYES DRY EYES; Start 01/26/19 at 07:00 Lubiprostone (Amitiza) 24 mcg BID PO Last administered on 01/26/19at 20:11; Admin Dose 24 MCG; Start 01/26/19 at 09:00 Polyethylene Glycol (Miralax) 17 gm DAILY PO ; Start 01/27/19 at 09:00 ELADIO DELGADO MD Jan 27, 2019 11:25
[2019-01-27] MEDS ORDERED: NA POLYST SULFON 15 GM/60 ML BTL PO ONE (11:30)
--- NOTE | 2019-01-27 11:31 | CONS ---
Assessment/Plan Assessment/Plan Assessment/Plan (Daily) 3 yo male Interval hx: No acute events. Constipated. Agrees to colonoscopy 1. Microcytic hypochromic anemia, most probably related to iron deficiency. -anemia work up from previous visit last week noted. NEG FOB -EGD done April 2018 showed duodenal ulcer and gastritis -hgb stable 2. 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 -US on 01/07 did not ascites 3. Nicotine dependence 4. Congestive heart failure. -EF of 60% 5. Chronic obstructive pulmonary disease. 6. Renal failure. 7. Opioid induced constipation PLAN: Colonoscopy tomorrow. Please hold all anti coagulants. NPO p MN. Bowel prep starting at 1700. Amitiza 24 mcg bid and miralax 17 gm qd procedure cancelled since K was high. Consultation Date/Type/Reason Admit Date/Time Jan 11, 2019 at 09:53 Initial Consult Date 01/12/19 Requesting Provider: KOKO MARLOW MD Date/Time of Note DATE: 01/27/19 TIME: 11:30 24 HR Interval Summary Constitutional: improved Exam/Review of Systems Exam Vitals Vital Signs Date Temp Pulse Resp B/P (MAP) Pulse Ox O2 O2 Flow FiO2 Time Delivery Rate 01/27/19 98.4 72 18 139/63 95 07:54 (88) 01/27/19 21 00:44 01/25/19 Room Air 15:03 Intake and Output 01/26/19 01/26/19 01/27/19 1515:00 23:00 07:00 IntakeIntake Total 600 ml 120 ml OutputOutput Total 400 ml 200 ml BalanceBalance 200 ml -80 ml Constitutional: alert, oriented, well developed Psych: no complaints, nl mood/affect Head: normocephalic, atraumatic Eyes: nl conjunctiva, EOMI, nl lids, nl sclera, PERRL ENMT: nl external ears & nose, nl lips & teeth, nl nasal mucosa & septum Neck: supple, non-tender Respiratory: clear to auscultation, normal air movement Cardiovascular: regular rate and rhythm, nl pulses Gastrointestinal: soft, nl liver, spleen, non-tender Musculoskeletal: nl extremities to inspection, nl gait and stance Extremities: normal pulses Neurological: [employer] II-XII intact, nl mental status, nl speech, nl strength Skin: nl turgor; No rash or lesions Lymph: nl lymph nodes Results Result Diagram: 01/27/19 0953 01/27/19 0953 Results 24hrs Laboratory Tests Test 01/27/19 09:53 White Blood Count 18.7 H Red Blood Count 5.17 Hemoglobin 10.8 L Hematocrit 38.9 L Mean Corpuscular Volume 75.2 L Mean Corpuscular Hemoglobin 20.9 L Mean Corpuscular Hemoglobin Concent 27.8 L Red Cell Distribution Width 22.6 H Platelet Count 324 Mean Platelet Volume Immature Granulocytes % 3.400 H Neutrophils % 64.5 Lymphocytes % 8.1 L Monocytes % 18.8 H Eosinophils % 3.9 Basophils % 1.3 Nucleated Red Blood Cells % 0.2 H Immature Granulocytes # 0.630 H Neutrophils # 12.1 H Lymphocytes # 1.5 Monocytes # 3.5 H Eosinophils # 0.7 H Basophils # 0.2 H Nucleated Red Blood Cells # 0.0 Prothrombin Time 16.0 H Prothrombin Time Ratio 1.3 INR International Normalized Ratio 1.27 Activated Partial Thromboplast Time 37.2 H Sodium Level 141 Potassium Level 5.7 H Chloride Level 117 H Carbon Dioxide Level 14 L Anion Gap 10 Blood Urea Nitrogen 36 H Creatinine 1.58 H Est Glomerular Filtrat Rate mL/min 45 L Glucose Level 67 #L Calcium Level 9.2 Medications Medication Current Medications IV Flush (NS 3 ml) 3 ml PER PROTOCOL IV ; Start 01/11/19 at 13:00 Ondansetron HCl (Zofran Inj) 4 mg Q6H PRN IV NAUSEA/VOMITING Last administered on 01/26/19at 20:54; Admin Dose 4 MG; Start 01/11/19 at 13:00 Acetaminophen (Tylenol Tab) 650 mg Q6H PRN PO .PAIN 1-3 OR TEMP; Start 01/11/19 at 13:00 Albuterol (Proventil 0.083% (Neb)) 2.5 mg Q6 PRN HHN shortness of breath; Start 01/11/19 at 13:00 Metoprolol Succinate (Toprol Xl) 50 mg DAILY PO Last administered on 01/26/19at 08:57; Admin Dose 50 MG; Start 01/12/19 at 09:00 Clonidine (Catapres) 0.1 mg Q6H PRN PO systolic BP > 160 Last administered on 01/12/19at 21:31; Admin Dose 0.1 MG; Start 01/12/19 at 21:00 Levothyroxine Sodium (Synthroid) 225 mcg DAILY@06 PO Last administered on 01/26/19 06:12; Admin Dose 225 MCG; Start 01/13/19 at 06:00 Allopurinol (Zyloprim) 100 mg DAILY PO Last administered on 01/26/19 08:59; Admin Dose 100 MG; Start 01/13/19 at 09:00 Ascorbic Acid (Vitamin C) 500 mg DAILY PO Last administered on 01/26/19 08:58; Admin Dose 500 MG; Start 01/13/19 at 09:00 Docusate Sodium (Colace) 200 mg QHS PO Last administered on 01/26/19 20:10; Admin Dose 200 MG; Start 01/13/19 at 21:00 Epoetin Ghulam-epbx (RETACRIT(non-esrd)) 10,000 unit Q48H SC Last administered on 01/25/19 18:32; Admin Dose 10,000 UNIT; Start 01/13/19 at 18:00 Ferrous Sulfate (Ferrous Sulfate (Ec)) 325 mg DAILY PO Last administered on 01/26/19 08:59; Admin Dose 325 MG; Start 01/13/19 at 09:00 Folic Acid (Folic Acid) 1 mg DAILY PO Last administered on 01/26/19 08:59; Admin Dose 1 MG; Start 01/13/19 at 09:00 Gabapentin (Neurontin) 100 mg TID PO Last administered on 01/26/19 20:11; Admin Dose 100 MG; Start 01/13/19 at 09:00 Lorazepam (Ativan) 1 mg BID PRN PO ANXIETY Last administered on 01/14/19 20:36; Admin Dose 1 MG; Start 01/13/19 at 06:30 Rifaximin (Xifaxan) 550 mg BID PO Last administered on 01/26/19 20:12; Admin Dose 550 MG; Start 01/13/19 at 09:00 Tamsulosin HCl (Flomax) 0.4 mg HS PO Last administered on 01/26/19 20:11; Admin Dose 0.4 MG; Start 01/13/19 at 21:00 Thiamine HCl (Vitamin B1) 100 mg DAILY PO Last administered on 01/26/19 08:59; Admin Dose 100 MG; Start 01/13/19 at 09:00 Arformoterol Tartrate (Brovana (Neb)) 2 ml BID RESP THERAPY INH Last administered on 01/26/19 07:50; Admin Dose 2 ML; Start 01/13/19 at 09:00 Budesonide (Pulmicort (Neb)) 0.5 mg Q12H RESP THERAPY INH Last administered on 01/26/19 07:50; Admin Dose 0.5 MG; Start 01/13/19 at 09:00 Nicotine (Nicoderm 21 Mg/ 24hr) 1 patch DAILY TRANSDERM Last administered on 01/27/19 10:12; Admin Dose 1 PATCH; Start 01/14/19 at 09:00 Famotidine (Pepcid) 20 mg Q12 PO Last administered on 01/26/19 20:10; Admin Dose 20 MG; Start 01/13/19 at 21:00 Doxycycline Hyclate (Vibramycin) 100 mg 0800,1999 PO Last administered on 01/26/19 20:08; Admin Dose 100 MG; Start 01/15/19 at 20:00 Furosemide (Lasix) 20 mg DAILY PO Last administered on 01/26/19 08:57; Admin Dose 20 MG; Start 01/16/19 at 09:00 Buspirone HCl (Buspar) 10 mg BID PO Last administered on 01/26/19 20:11; Admin Dose 10 MG; Start 01/16/19 at 12:30 Acetaminophen/ Hydrocodone Bitart ([place] (10/325)) 2 tab Q4H PRN PO MODERATE PAIN LEVEL 4-6 Last administered on 01/26/19 14:07; Admin Dose 2 TAB; Start 01/20/19 at 18:30 Amlodipine Besylate (Norvasc) 5 mg BID PO Last administered on 01/26/19 20:11; Admin Dose 5 MG; Start 01/21/19 at 21:00 Metoprolol Succinate (Toprol Xl) 25 mg HS PO Last administered on 01/26/19 20:10; Admin Dose 25 MG; Start 01/23/19 at 21:00 Hydromorphone HCl (Dilaudid) 2 mg Q4H PRN IV SEVERE PAIN LEVEL 7-10 Last administered on 4/23/19at 07:50; Admin Dose 2 MG; Start 01/25/19 at 14:00 Lorazepam (Ativan) 1 mg Q6H PRN IV ANXIETY Last administered on 01/27/19at 10:09; Admin Dose 1 MG; Start 01/25/19 at 14:00 Dorzolamide/ Timolol (Cosopt Pf Eye Drops) 1 drop BID LEFT EYE Last administered on 01/26/19at 08:59; Admin Dose 1 DROP; Start 01/26/19 at 09:00 Lactulose (Enulose) 30 gm BID PO Last administered on 01/26/19at 20:11; Admin Dose 30 GM; Start 01/26/19 at 09:00 Simethicone (Mylicon) 80 mg Q6 PRN PO bloating; Start 01/26/19 at 07:00 Eye Lubricant (Artificial Tears Oph) 2 drop Q6H PRN BOTH EYES DRY EYES; Start 01/26/19 at 07:00 Lubiprostone (Amitiza) 24 mcg BID PO Last administered on 01/26/19at 20:11; Admin Dose 24 MCG; Start 01/26/19 at 09:00 Polyethylene Glycol (Miralax) 17 gm DAILY PO ; Start 01/27/19 at 09:00 Sodium Bicarbonate (Sodium Bicarbonate Tab) 650 mg BID PO ; Start 01/27/19 at 21:00; Status UNV Sodium Polystyrene Sulfonate (Kayexalate) 30 gm ONCE ONCE PO ; Start 01/27/19 at 11:30; Stop 01/27/19 at 11:31; Status UNV CHLOÉ TORRE MD Jan 27, 2019 11:31
[2019-01-27] MEDS: ALLOPURINOL 100 MG TAB PO SCH (11:36)
--- NOTE | 2019-01-27 12:26 | CONS ---
Assessment/Plan Assessment/Plan Hospital Course (Demo Recall) All noted, no acute events Antimicrobials: Doxycycline Physical examination: This is a wasted well-developed chronically ill-appearing elderly man who is in no distress. Head atraumatic normocephalic sclera nonicteric. Neck is supple chest rise symmetrical breath sounds diminished bases. Heart: S1-S2. Abdomen soft bowel sounds present. Extremities without BLE edema, mild erythema, no cyanosis. Assessment: 1. Systemic inflammatory response syndrome with ongoing leukocytosis, clinic ally stable 2. S/p COPD exacerbation 3. Alcohol abuse 4. Bilateral lower extremities acute on chronic cellulitis/chronic venous stasis 5. Cirrhosis with recurrent ascites 6. Chronic kidney disease 7. CHF 8. Noncompliance Plan: Stable, continue oral Doxycycline for BLE cellulitis, GI rec-s noted, pending colonoscopy Consultation Date/Type/Reason Admit Date/Time Jan 11, 2019 at 09:53 Initial Consult Date Type of Consult id Requesting Provider: KOKO MARLOW MD Date/Time of Note DATE: 01/27/19 TIME: 12:24 Exam/Review of Systems Exam Vitals Vital Signs Date Temp Pulse Resp B/P (MAP) Pulse Ox O2 O2 Flow FiO2 Time Delivery Rate 01/27/19 98.4 72 18 139/63 95 07:54 (88) 01/27/19 21 00:44 01/25/19 Room Air 15:03 Intake and Output 01/26/19 01/26/19 01/27/19 1515:00 23:00 07:00 IntakeIntake Total 600 ml 120 ml OutputOutput Total 400 ml 200 ml BalanceBalance 200 ml -80 ml Results Result Diagram: 01/27/19 0953 01/27/19 0953 Results 24hrs Laboratory Tests Test 01/27/19 09:53 White Blood Count 18.7 H Red Blood Count 5.17 Hemoglobin 10.8 L Hematocrit 38.9 L Mean Corpuscular Volume 75.2 L Mean Corpuscular Hemoglobin 20.9 L Mean Corpuscular Hemoglobin Concent 27.8 L Red Cell Distribution Width 22.6 H Platelet Count 324 Mean Platelet Volume Immature Granulocytes % 3.400 H Neutrophils % 64.5 Lymphocytes % 8.1 L Monocytes % 18.8 H Eosinophils % 3.9 Basophils % 1.3 Nucleated Red Blood Cells % 0.2 H Immature Granulocytes # 0.630 H Neutrophils # 12.1 H Lymphocytes # 1.5 Monocytes # 3.5 H Eosinophils # 0.7 H Basophils # 0.2 H Nucleated Red Blood Cells # 0.0 Prothrombin Time 16.0 H Prothrombin Time Ratio 1.3 INR International Normalized Ratio 1.27 Activated Partial Thromboplast Time 37.2 H Sodium Level 141 Potassium Level 5.7 H Chloride Level 117 H Carbon Dioxide Level 14 L Anion Gap 10 Blood Urea Nitrogen 36 H Creatinine 1.58 H Est Glomerular Filtrat Rate mL/min 45 L Glucose Level 67 #L Calcium Level 9.2 Medications Medication Current Medications IV Flush (NS 3 ml) 3 ml PER PROTOCOL IV ; Start 01/11/19 at 13:00 Ondansetron HCl (Zofran Inj) 4 mg Q6H PRN IV NAUSEA/VOMITING Last administered on 01/26/19 20:54; Admin Dose 4 MG; Start 01/11/19 at 13:00 Acetaminophen (Tylenol Tab) 650 mg Q6H PRN PO .PAIN 1-3 OR TEMP; Start 01/11/19 at 13:00 Albuterol (Proventil 0.083% (Neb)) 2.5 mg Q6 PRN HHN shortness of breath; Start 01/11/19 at 13:00 Metoprolol Succinate (Toprol Xl) 50 mg DAILY PO Last administered on 01/26/19 08:57; Admin Dose 50 MG; Start 01/12/19 at 09:00 Clonidine (Catapres) 0.1 mg Q6H PRN PO systolic BP > 160 Last administered on 01/12/19 21:31; Admin Dose 0.1 MG; Start 01/12/19 at 21:00 Levothyroxine Sodium (Synthroid) 225 mcg DAILY@06 PO Last administered on 01/26/19 06:12; Admin Dose 225 MCG; Start 01/13/19 at 06:00 Allopurinol (Zyloprim) 100 mg DAILY PO Last administered on 01/26/19 08:59; Admin Dose 100 MG; Start 01/13/19 at 09:00 Ascorbic Acid (Vitamin C) 500 mg DAILY PO Last administered on 01/26/19 08:58; Admin Dose 500 MG; Start 01/13/19 at 09:00 Docusate Sodium (Colace) 200 mg QHS PO Last administered on 01/26/19 20:10; Admin Dose 200 MG; Start 01/13/19 at 21:00 Epoetin Ghulam-epbx (RETACRIT(non-esrd)) 10,000 unit Q48H SC Last administered on 01/25/19 18:32; Admin Dose 10,000 UNIT; Start 01/13/19 at 18:00 Ferrous Sulfate (Ferrous Sulfate (Ec)) 325 mg DAILY PO Last administered on 01/26/19 08:59; Admin Dose 325 MG; Start 01/13/19 at 09:00 Folic Acid (Folic Acid) 1 mg DAILY PO Last administered on 01/26/19 08:59; Admin Dose 1 MG; Start 01/13/19 at 09:00 Gabapentin (Neurontin) 100 mg TID PO Last administered on 01/26/19 20:11; Admin Dose 100 MG; Start 01/13/19 at 09:00 Lorazepam (Ativan) 1 mg BID PRN PO ANXIETY Last administered on 01/14/19 20:36; Admin Dose 1 MG; Start 01/13/19 at 06:30 Rifaximin (Xifaxan) 550 mg BID PO Last administered on 01/26/19 20:12; Admin Dose 550 MG; Start 01/13/19 at 09:00 Tamsulosin HCl (Flomax) 0.4 mg HS PO Last administered on 01/26/19 20:11; Admin Dose 0.4 MG; Start 01/13/19 at 21:00 Thiamine HCl (Vitamin B1) 100 mg DAILY PO Last administered on 01/26/19 08:59; Admin Dose 100 MG; Start 01/13/19 at 09:00 Arformoterol Tartrate (Brovana (Neb)) 2 ml BID RESP THERAPY INH Last administered on 01/26/19 07:50; Admin Dose 2 ML; Start 01/13/19 at 09:00 Budesonide (Pulmicort (Neb)) 0.5 mg Q12H RESP THERAPY INH Last administered on 01/26/19 07:50; Admin Dose 0.5 MG; Start 01/13/19 at 09:00 Nicotine (Nicoderm 21 Mg/ 24hr) 1 patch DAILY TRANSDERM Last administered on 01/27/19 10:12; Admin Dose 1 PATCH; Start 01/14/19 at 09:00 Famotidine (Pepcid) 20 mg Q12 PO Last administered on 01/26/19 20:10; Admin Dose 20 MG; Start 01/13/19 at 21:00 Doxycycline Hyclate (Vibramycin) 100 mg 0800,2000 PO Last administered on 01/26/19 20:08; Admin Dose 100 MG; Start 01/15/19 at 20:00 Furosemide (Lasix) 20 mg DAILY PO Last administered on 01/26/19 08:57; Admin Dose 20 MG; Start 01/16/19 at 09:00 Buspirone HCl (Buspar) 10 mg BID PO Last administered on 01/26/19 20:11; Admin Dose 10 MG; Start 01/16/19 at 12:30 Acetaminophen/ Hydrocodone Bitart ([place] (10/325)) 2 tab Q4H PRN PO MODERATE PAIN LEVEL 4-6 Last administered on 01/26/19 14:07; Admin Dose 2 TAB; Start 01/20/19 at 18:30 Amlodipine Besylate (Norvasc) 5 mg BID PO Last administered on 01/26/19 20:11; Admin Dose 5 MG; Start 01/21/19 at 21:00 Metoprolol Succinate (Toprol Xl) 25 mg HS PO Last administered on 01/26/19 20:10; Admin Dose 25 MG; Start 01/23/19 at 21:00 Hydromorphone HCl (Dilaudid) 2 mg Q4H PRN IV SEVERE PAIN LEVEL 7-10 Last administered on 01/27/19 12:10; Admin Dose 2 MG; Start 01/25/19 at 14:00 Lorazepam (Ativan) 1 mg Q6H PRN IV ANXIETY Last administered on 01/27/19 10:09; Admin Dose 1 MG; Start 01/25/19 at 14:00 Dorzolamide/ Timolol (Cosopt Pf Eye Drops) 1 drop BID LEFT EYE Last administered on 01/26/19 08:59; Admin Dose 1 DROP; Start 01/26/19 at 09:00 Lactulose (Enulose) 30 gm BID PO Last administered on 01/26/19 20:11; Admin Dose 30 GM; Start 01/26/19 at 09:00 Simethicone (Mylicon) 80 mg Q6 PRN PO bloating; Start 01/26/19 at 07:00 Eye Lubricant (Artificial Tears Oph) 2 drop Q6H PRN BOTH EYES DRY EYES; Start 01/26/19 at 07:00 Lubiprostone (Amitiza) 24 mcg BID PO Last administered on 01/26/19at 20:11; Admin Dose 24 MCG; Start 01/26/19 at 09:00 Polyethylene Glycol (Miralax) 17 gm DAILY PO ; Start 01/27/19 at 09:00 Sodium Bicarbonate (Sodium Bicarbonate Tab) 650 mg BID PO ; Start 01/27/19 at 21:00 Sodium Polystyrene Sulfonate (Kayexelate 15 Gm Kit (Powder+Sorbitol)) 30 gm ONCE ONCE PO Last administered on 01/27/19at 12:09; Admin Dose 30 GM; Start 01/27/19 at 12:30; Stop 01/27/19 at 12:31 MELISSA NASH NP Jan 27, 2019 12:26
[2019-01-27] MEDS ORDERED: SODIUM POLYSTYRENE 15 GM KIT (POWDER + SORBITOL) PO ONE (12:30)
[2019-01-27 14:40] VITALS: BP 129/60; PULSE 69; RESP 16
--- NOTE | 2019-01-27 16:45 | PN ---
Date/Time of Note Date/Time of Note DATE: 01/27/19 TIME: 16:44 Assessment/Plan VTE Prophylaxis Risk score (from Ns)>0 risk: 5 SCD applied (from Ns): No Lines/Catheters IV C[facility]ter Type [facility]from [facility] [place] Urinary Cath still in place: No Assessment/Plan Result Diagram: 01/27/19 0953 01/27/19 0953 Results 24hrs Laboratory Tests Test 01/27/19 09:53 White Blood Count 18.7 H Red Blood Count 5.17 Hemoglobin 10.8 L Hematocrit 38.9 L Mean Corpuscular Volume 75.2 L Mean Corpuscular Hemoglobin 20.9 L Mean Corpuscular Hemoglobin Concent 27.8 L Red Cell Distribution Width 22.6 H Platelet Count 324 Mean Platelet Volume Immature Granulocytes % 3.400 H Neutrophils % 64.5 Lymphocytes % 8.1 L Monocytes % 18.8 H Eosinophils % 3.9 Basophils % 1.3 Nucleated Red Blood Cells % 0.2 H Immature Granulocytes # 0.630 H Neutrophils # 12.1 H Lymphocytes # 1.5 Monocytes # 3.5 H Eosinophils # 0.7 H Basophils # 0.2 H Nucleated Red Blood Cells # 0.0 Prothrombin Time 16.0 H Prothrombin Time Ratio 1.3 INR International Normalized Ratio 1.27 Activated Partial Thromboplast Time 37.2 H Sodium Level 141 Potassium Level 5.7 H Chloride Level 117 H Carbon Dioxide Level 14 L Anion Gap 10 Blood Urea Nitrogen 36 H Creatinine 1.58 H Est Glomerular Filtrat Rate mL/min 45 L Glucose Level 67 #L Calcium Level 9.2 Exam/Review of Systems Exam Vitals Vital Signs Date Temp Pulse Resp B/P (MAP) Pulse Ox O2 O2 Flow FiO2 Time Delivery Rate 01/27/19 98.4 69 16 129/60 97 14:40 (83) 01/27/19 21 00:44 01/25/19 Room Air 15:03 Intake and Output 01/26/19 01/26/19 01/27/19 1515:00 23:00 07:00 IntakeIntake Total 600 ml 120 ml OutputOutput Total 400 ml 200 ml BalanceBalance 200 ml -80 ml Results Results 24hrs Laboratory Tests Test 01/27/19 09:53 White Blood Count 18.7 H Red Blood Count 5.17 Hemoglobin 10.8 L Hematocrit 38.9 L Mean Corpuscular Volume 75.2 L Mean Corpuscular Hemoglobin 20.9 L Mean Corpuscular Hemoglobin Concent 27.8 L Red Cell Distribution Width 22.6 H Platelet Count 324 Mean Platelet Volume Immature Granulocytes % 3.400 H Neutrophils % 64.5 Lymphocytes % 8.1 L Monocytes % 18.8 H Eosinophils % 3.9 Basophils % 1.3 Nucleated Red Blood Cells % 0.2 H Immature Granulocytes # 0.630 H Neutrophils # 12.1 H Lymphocytes # 1.5 Monocytes # 3.5 H Eosinophils # 0.7 H Basophils # 0.2 H Nucleated Red Blood Cells # 0.0 Prothrombin Time 16.0 H Prothrombin Time Ratio 1.3 INR International Normalized Ratio 1.27 Activated Partial Thromboplast Time 37.2 H Sodium Level 141 Potassium Level 5.7 H Chloride Level 117 H Carbon Dioxide Level 14 L Anion Gap 10 Blood Urea Nitrogen 36 H Creatinine 1.58 H Est Glomerular Filtrat Rate mL/min 45 L Glucose Level 67 #L Calcium Level 9.2 Medications Medication Current Medications IV Flush (NS 3 ml) 3 ml PER PROTOCOL IV ; Start 01/11/19 at 13:00 Ondansetron HCl (Zofran Inj) 4 mg Q6H PRN IV NAUSEA/VOMITING Last administered on 01/26/19at 20:54; Admin Dose 4 MG; Start 01/11/19 at 13:00 Acetaminophen (Tylenol Tab) 650 mg Q6H PRN PO .PAIN 1-3 OR TEMP; Start 01/11/19 at 13:00 Albuterol (Proventil 0.083% (Neb)) 2.5 mg Q6 PRN HHN shortness of breath; Start 01/11/19 at 13:00 Metoprolol Succinate (Toprol Xl) 50 mg DAILY PO Last administered on 01/26/19at 08:57; Admin Dose 50 MG; Start 01/12/19 at 09:00 Clonidine (Catapres) 0.1 mg Q6H PRN PO systolic BP > 160 Last administered on 01/12/19at 21:31; Admin Dose 0.1 MG; Start 01/12/19 at 21:00 Levothyroxine Sodium (Synthroid) 225 mcg DAILY@06 PO Last administered on 01/26/19at 06:12; Admin Dose 225 MCG; Start 01/13/19 at 06:00 Allopurinol (Zyloprim) 100 mg DAILY PO Last administered on 01/26/19 08:59; Admin Dose 100 MG; Start 01/13/19 at 09:00 Ascorbic Acid (Vitamin C) 500 mg DAILY PO Last administered on 01/26/19 08:58; Admin Dose 500 MG; Start 01/13/19 at 09:00 Docusate Sodium (Colace) 200 mg QHS PO Last administered on 01/26/19 20:10; Admin Dose 200 MG; Start 01/13/19 at 21:00 Epoetin Ghulam-epbx (RETACRIT(non-esrd)) 10,000 unit Q48H SC Last administered on 01/25/19 18:32; Admin Dose 10,000 UNIT; Start 01/13/19 at 18:00; Status Hold Ferrous Sulfate (Ferrous Sulfate (Ec)) 325 mg DAILY PO Last administered on 01/26/19 08:59; Admin Dose 325 MG; Start 01/13/19 at 09:00 Folic Acid (Folic Acid) 1 mg DAILY PO Last administered on 01/26/19 08:59; Admin Dose 1 MG; Start 01/13/19 at 09:00 Gabapentin (Neurontin) 100 mg TID PO Last administered on 01/26/19 20:11; Admin Dose 100 MG; Start 01/13/19 at 09:00 Lorazepam (Ativan) 1 mg BID PRN PO ANXIETY Last administered on 01/14/19 20:36; Admin Dose 1 MG; Start 01/13/19 at 06:30 Rifaximin (Xifaxan) 550 mg BID PO Last administered on 01/26/19 20:12; Admin D ose 550 MG; Start 01/13/19 at 09:00 Tamsulosin HCl (Flomax) 0.4 mg HS PO Last administered on 01/26/19 20:11; Admin Dose 0.4 MG; Start 01/13/19 at 21:00 Thiamine HCl (Vitamin B1) 100 mg DAILY PO Last administered on 01/26/19 08:59; Admin Dose 100 MG; Start 01/13/19 at 09:00 Arformoterol Tartrate (Brovana (Neb)) 2 ml BID RESP THERAPY INH Last administered on 01/26/19 07:50; Admin Dose 2 ML; Start 01/13/19 at 09:00 Budesonide (Pulmicort (Neb)) 0.5 mg Q12H RESP THERAPY INH Last administered on 01/26/19 07:50; Admin Dose 0.5 MG; Start 01/13/19 at 09:00 Nicotine (Nicoderm 21 Mg/ 24hr) 1 patch DAILY TRANSDERM Last administered on 01/27/19 10:12; Admin Dose 1 PATCH; Start 01/14/19 at 09:00 Famotidine (Pepcid) 20 mg Q12 PO Last administered on 01/26/19 20:10; Admin Dose 20 MG; Start 01/13/19 at 21:00 Doxycycline Hyclate (Vibramycin) 100 mg 08,1999 PO Last administered on 01/26/19 20:08; Admin Dose 100 MG; Start 01/15/19 at 20:00 Furosemide (Lasix) 20 mg DAILY PO Last administered on 01/26/19 08:57; Admin Dose 20 MG; Start 01/16/19 at 09:00 Buspirone HCl (Buspar) 10 mg BID PO Last administered on 01/26/19 20:11; Admin Dose 10 MG; Start 01/16/19 at 12:30 Acetaminophen/ Hydrocodone Bitart ([place] (10/325)) 2 tab Q4H PRN PO MODERATE PAIN LEVEL 4-6 Last administered on 01/26/19 14:07; Admin Dose 2 TAB; Start 01/20/19 at 18:30 Amlodipine Besylate (Norvasc) 5 mg BID PO Last administered on 01/26/19 20:11; Admin Dose 5 MG; Start 01/21/19 at 21:00 Metoprolol Succinate (Toprol Xl) 25 mg HS PO Last administered on 01/26/19 20:10; Admin Dose 25 MG; Start 01/23/19 at 21:00 Hydromorphone HCl (Dilaudid) 2 mg Q4H PRN IV SEVERE PAIN LEVEL 7-10 Last administered on 01/27/19 16:32; Admin Dose 2 MG; Start 01/25/19 at 14:00 Lorazepam (Ativan) 1 mg Q6H PRN IV ANXIETY Last administered on 01/27/19 10:09; Admin Dose 1 MG; Start 01/25/19 at 14:00 Dorzolamide/ Timolol (Cosopt Pf Eye Drops) 1 drop BID LEFT EYE Last administered on 01/26/19at 08:59; Admin Dose 1 DROP; Start 01/26/19 at 09:00 Lactulose (Enulose) 30 gm BID PO Last administered on 01/26/19at 20:11; Admin Dose 30 GM; Start 01/26/19 at 09:00 Simethicone (Mylicon) 80 mg Q6 PRN PO bloating; Start 01/26/19 at 07:00 Eye Lubricant (Artificial Tears Oph) 2 drop Q6H PRN BOTH EYES DRY EYES; Start 01/26/19 at 07:00 Lubiprostone (Amitiza) 24 mcg BID PO Last administered on 01/26/19at 20:11; Admin Dose 24 MCG; Start 01/26/19 at 09:00 Polyethylene Glycol (Miralax) 17 gm DAILY PO ; Start 01/27/19 at 09:00 Sodium Bicarbonate (Sodium Bicarbonate Tab) 650 mg BID PO ; Start 01/27/19 at 21:00 GO LAMBERT Jan 27, 2019 16:45
[2019-01-27] MEDS: HYDROCODONE/APAP (10/325) TAB PO PRN (18:05)
[2019-01-27 19:30] VITALS: BP 136/61; PULSE 73; RESP 18
[2019-01-27] MEDS: DOCUSATE SODIUM 100 MG CAP PO SCH (21:22)
[2019-01-27] MEDS: METOPROLOL (XL) 25 MG TAB PO SCH (21:23)
[2019-01-27] MEDS: NA BICARBONATE 650 MG TAB PO SCH (21:23)
[2019-01-27] MEDS: TAMSULOSIN (SR) 0.4 MG CAP PO SCH (21:24)
[2019-01-28] VITALS (7 sets, daily range): BP systolic 118–161; BP diastolic 59–76; PULSE 70–84; RESP 14–20
[2019-01-28] MEDS: HYDROmorphONE 2 MG/ML SYG IV PRN ×6 (01:37→22:14)
[2019-01-28] MEDS: ONDANSETRON 4 MG INJ IV PRN (01:43)
[2019-01-28] MEDS: LEVOTHYROXINE 75 MCG TAB PO SCH (05:32)
[2019-01-28] MEDS: DOXYCYCLINE 100 MG TAB PO SCH (08:00)
[2019-01-28] MEDS: METOPROLOL (XL) 50 MG TAB PO SCH (09:00)
[2019-01-28] MEDS: AMLODIPINE 5 MG TAB PO SCH ×2 (09:00→20:18)
[2019-01-28] MEDS: POLYETHYLENE GLYCOL 17 GM PACKET PO SCH (09:00)
[2019-01-28] MEDS: FOLIC ACID 1 MG TAB PO SCH (09:00)
[2019-01-28] MEDS: GABAPENTIN 100 MG CAP PO SCH ×3 (09:00→20:12)
[2019-01-28] MEDS: BUSPIRONE 10 MG TAB PO SCH ×2 (09:00→20:13)
[2019-01-28] MEDS: LUBIPROSTONE 24 MCG CAP PO SCH ×2 (09:00→20:13)
[2019-01-28] MEDS: FAMOTIDINE 20 MG TAB PO SCH ×2 (09:00→20:13)
[2019-01-28] MEDS: DORZOLAMIDE/TIMOLOL/PF 0.2 ML DROPERETTE LEFT EYE SCH ×2 (09:00→20:37)
[2019-01-28] MEDS: ALLOPURINOL 100 MG TAB PO SCH (09:00)
[2019-01-28] MEDS: LACTULOSE 30ML CUP PO SCH ×2 (09:00→20:13)
[2019-01-28] MEDS: FUROSEMIDE 20 MG TAB PO SCH (09:00)
[2019-01-28] MEDS: NA BICARBONATE 650 MG TAB PO SCH ×2 (09:00→20:13)
[2019-01-28] MEDS: FERROUS SULFATE (EC) 325 MG TAB PO SCH (09:00)
[2019-01-28] MEDS: THIAMINE 100 MG TAB PO SCH (09:00)
[2019-01-28] MEDS: BUDESONIDE (NEB) 0.5MG/2ML AMP INH SCH ×2 (09:04→20:48)
[2019-01-28] MEDS: ARFORMOTEROL TARTRATE 15MCG/2 ML AMP INH SCH ×2 (09:04→20:48)
[2019-01-28] MEDS: NICOTINE (21 MG/24 HR) PATCH TRANSDERM SCH (09:55)
[2019-01-28] MEDS: RIFAXIMIN 550 MG TAB PO SCH ×2 (10:00→20:13)
[2019-01-28] MEDS: ASCORBIC ACID 500 MG TAB PO SCH (10:00)
--- NOTE | 2019-01-28 12:03 | CONS ---
Assessment/Plan Assessment/Plan Assessment/Plan (Daily) 1. acute on chronic renal failure due to Type II hepatorenal syndrome 2. SIRS 3. anemia of CKD 5. Decompensated Liver cirrhosis with Symptomatic ascites 6. H/O HTN 7. h/o Liver cirrhosis with ascites 8. H/o Diastolic CHF 9. Bilateral LE chronic venous stasis 10.H/o BPH on Flomax 11. Acute hyperkalemia Plan: s/p IV abx Ertapenam, renally dose all abx , monitor electrolytes and replace as needed, BUN/Cr 33/1.5 today - K 4.8 today, HCO3 16- start Bicitra 30ml PO TID, d/c sodium biucarboante Continue Lasix to 20mg po daily, , , Toprol Xl 50mg/25mg , amlodipine 5 mg po BID Flomax 0.4mg po daily for BPH will follow up Consultation Date/Type/Reason Admit Date/Time Jan 11, 2019 at 09:53 Initial Consult Date 01/11/19 Type of Consult NEPHROLOGY Requesting Provider: KOKO MARLOW MD Date/Time of Note DATE: 01/28/19 TIME: 12:02 Exam/Review of Systems Exam Vitals Vital Signs Date Temp Pulse Resp B/P (MAP) Pulse Ox O2 O2 Flow FiO2 Time Delivery Rate 01/28/19 98.6 76 20 152/76 97 Room Air 11:24 (101) 01/27/19 21 20:16 Intake and Output 01/27/19 01/27/19 01/28/19 1515:00 23:00 07:00 IntakeIntake Total 1500 ml OutputOutput Total 1500 ml BalanceBalance 0 ml Exam Constitutional: alert, well developed, obese Respiratory: diminished breath sounds (at bases bilaterally) Cardiovascular: nl pulses, other (s1s2) Gastrointestinal: soft, non-tender Musculoskeletal: muscle weakness Extremities: normal pulses Neurological: nl speech, other (alert/reponsie) Lymph: nontender Results Result Diagram: 01/28/19 0540 01/28/19 0540 Results 24hrs Laboratory Tests Test 01/28/19 05:40 White Blood Count 18.0 H Red Blood Count 5.15 Hemoglobin 10.9 L Hematocrit 38.7 L Mean Corpuscular Volume 75.1 L Mean Corpuscular Hemoglobin 21.2 L Mean Corpuscular Hemoglobin Concent 28.2 L Red Cell Distribution Width 22.7 H Platelet Count 315 Mean Platelet Volume Immature Granulocytes % 3.700 H Neutrophils % 64.9 Lymphocytes % 8.7 L Monocytes % 17.8 H Eosinophils % 3.8 Basophils % 1.1 Nucleated Red Blood Cells % 0.2 H Immature Granulocytes # 0.660 H Neutrophils # 11.7 H Lymphocytes # 1.6 Monocytes # 3.2 H Eosinophils # 0.7 H Basophils # 0.2 H Nucleated Red Blood Cells # 0.0 Sodium Level 143 Potassium Level 4.8 Chloride Level 117 H Carbon Dioxide Level 16 L Anion Gap 10 Blood Urea Nitrogen 33 H Creatinine 1.51 H Est Glomerular Filtrat Rate mL/min 47 L Glucose Level 76 Calcium Level 9.1 Medications Medication Current Medications IV Flush (NS 3 ml) 3 ml PER PROTOCOL IV ; Start 01/11/19 at 13:00 Ondansetron HCl (Zofran Inj) 4 mg Q6H PRN IV NAUSEA/VOMITING Last administered on 01/28/19 01:43; Admin Dose 4 MG; Start 01/11/19 at 13:00 Acetaminophen (Tylenol Tab) 650 mg Q6H PRN PO .PAIN 1-3 OR TEMP; Start 01/11/19 at 13:00 Albuterol (Proventil 0.083% (Neb)) 2.5 mg Q6 PRN HHN shortness of breath; Start 01/11/19 at 13:00 Metoprolol Succinate (Toprol Xl) 50 mg DAILY PO Last administered on 01/26/19 08:57; Admin Dose 50 MG; Start 01/12/19 at 09:00 Clonidine (Catapres) 0.1 mg Q6H PRN PO systolic BP > 160 Last administered on 01/12/19at 21:31; Admin Dose 0.1 MG; Start 01/12/19 at 21:00 Levothyroxine Sodium (Synthroid) 225 mcg DAILY@06 PO Last administered on 01/26/19 06:12; Admin Dose 225 MCG; Start 01/13/19 at 06:00 Allopurinol (Zyloprim) 100 mg DAILY PO Last administered on 01/26/19 08:59; Admin Dose 100 MG; Start 01/13/19 at 09:00 Ascorbic Acid (Vitamin C) 500 mg DAILY PO Last administered on 01/26/19 08:58; Admin Dose 500 MG; Start 01/13/19 at 09:00 Docusate Sodium (Colace) 200 mg QHS PO Last administered on 01/27/19 21:22; Admin Dose 200 MG; Start 01/13/19 at 21:00 Epoetin Ghulam-epbx (RETACRIT(non-esrd)) 10,000 unit Q48H SC Last administered on 01/25/19 18:32; Admin Dose 10,000 UNIT; Start 01/13/19 at 18:00; Status Hold Ferrous Sulfate (Ferrous Sulfate (Ec)) 325 mg DAILY PO Last administered on 01/26/19 08:59; Admin Dose 325 MG; Start 01/13/19 at 09:00 Folic Acid (Folic Acid) 1 mg DAILY PO Last administered on 01/26/19 08:59; Admin Dose 1 MG; Start 01/13/19 at 09:00 Gabapentin (Neurontin) 100 mg TID PO Last administered on 01/27/19 21:23; Admin Dose 100 MG; Start 01/13/19 at 09:00 Lorazepam (Ativan) 1 mg BID PRN PO ANXIETY Last administered on 01/14/19 20:36; Admin Dose 1 MG; Start 01/13/19 at 06:30 Rifaximin (Xifaxan) 550 mg BID PO Last administered on 01/27/19 21:23; Admin Dose 550 MG; Start 01/13/19 at 09:00 Tamsulosin HCl (Flomax) 0.4 mg HS PO Last administered on 01/27/19 21:24; Admin Dose 0.4 MG; Start 01/13/19 at 21:00 Thiamine HCl (Vitamin B1) 100 mg DAILY PO Last administered on 01/26/19 08:59; Admin Dose 100 MG; Start 01/13/19 at 09:00 Arformoterol Tartrate (Brovana (Neb)) 2 ml BID RESP THERAPY INH Last administered on 01/28/19 09:04; Admin Dose 2 ML; Start 01/13/19 at 09:00 Budesonide (Pulmicort (Neb)) 0.5 mg Q12H RESP THERAPY INH Last administered on 01/28/19 09:04; Admin Dose 0.5 MG; Start 01/13/19 at 09:00 Nicotine (Nicoderm 21 Mg/ 24hr) 1 patch DAILY TRANSDERM Last administered on 01/28/19 09:55; Admin Dose 1 PATCH; Start 01/14/19 at 09:00 Famotidine (Pepcid) 20 mg Q12 PO Last administered on 01/27/19 21:23; Admin Dose 20 MG; Start 01/13/19 at 21:00 Doxycycline Hyclate (Vibramycin) 100 mg 0800,2000 PO Last administered on 01/27/19 21:24; Admin Dose 100 MG; Start 01/15/19 at 20:00 Furosemide (Lasix) 20 mg DAILY PO Last administered on 01/26/19 08:57; Admin Dose 20 MG; Start 01/16/19 at 09:00 Buspirone HCl (Buspar) 10 mg BID PO Last administered on 01/27/19 21:23; Admin Dose 10 MG; Start 01/16/19 at 12:30 Acetaminophen/ Hydrocodone Bitart ([place] (10/325)) 2 tab Q4H PRN PO MODERATE PAIN LEVEL 4-6 Last administered on 01/27/19 18:05; Admin Dose 2 TAB; Start 01/20/19 at 18:30 Amlodipine Besylate (Norvasc) 5 mg BID PO Last administered on 01/27/19 21:24; Admin Dose 5 MG; Start 01/21/19 at 21:00 Metoprolol Succinate (Toprol Xl) 25 mg HS PO Last administered on 01/27/19 21:23; Admin Dose 25 MG; Start 01/23/19 at 21:00 Hydromorphone HCl (Dilaudid) 2 mg Q4H PRN IV SEVERE PAIN LEVEL 7-10 Last administered on 01/28/19 09:54; Admin Dose 2 MG; Start 01/25/19 at 14:00 Lorazepam (Ativan) 1 mg Q6H PRN IV ANXIETY Last administered on 01/27/19 19:39; Admin Dose 1 MG; Start 01/25/19 at 14:00 Dorzolamide/ Timolol (Cosopt Pf Eye Drops) 1 drop BID LEFT EYE Last administered on 01/26/19 08:59; Admin Dose 1 DROP; Start 01/26/19 at 09:00 Lactulose (Enulose) 30 gm BID PO Last administered on 01/27/19at 21:21; Admin Dose 30 GM; Start 01/26/19 at 09:00 Simethicone (Mylicon) 80 mg Q6 PRN PO bloating; Start 01/26/19 at 07:00 Eye Lubricant (Artificial Tears Oph) 2 drop Q6H PRN BOTH EYES DRY EYES; Start 01/26/19 at 07:00 Lubiprostone (Amitiza) 24 mcg BID PO Last administered on 01/27/19at 21:23; Admin Dose 24 MCG; Start 01/26/19 at 09:00 Polyethylene Glycol (Miralax) 17 gm DAILY PO ; Start 01/27/19 at 09:00 Sodium Bicarbonate (Sodium Bicarbonate Tab) 650 mg BID PO Last administered on 01/27/19at 21:23; Admin Dose 650 MG; Start 01/27/19 at 21:00 ELADIO DELGADO MD Jan 28, 2019 12:03
[2019-01-28] MEDS ORDERED: PROPOFOL 40 ML ONE (12:08)
[2019-01-28] MEDS ORDERED: LIDOCAINE 2% (SDV) 5 ML INJ ONE (12:08)
[2019-01-28] MEDS ORDERED: ONDANSETRON 4 MG INJ IV PRN (12:30)
--- NOTE | 2019-01-28 12:56 | PAC ---
Date/Time of Note Date/Time of Note DATE: 01/28/19 TIME: 12:55 Post-Anesthesia Notes Post-Anesthesia Note Last documented vital signs Vital Signs Date Temp Pulse Resp B/P (MAP) Pulse Ox O2 O2 Flow FiO2 Time Delivery Rate 01/28/19 98.6 76 20 152/76 97 Room Air 11:24 (101) 01/27/19 21 20:16 Activity: WNL Respiratory function: WNL Cardiovascular function: WNL Mental status: Baseline Pain reasonably controlled: Yes Hydration appropriate: Yes Nausea/Vomiting absent: Yes Comments BP: 125/60 HR: 65 RR: 15 T: 97.9 SaO2: 96% REMI SPENCER MD Jan 28, 2019 12:56
[2019-01-28] MEDS: LORAZEPAM 2 MG INJ IV PRN ×2 (15:03→21:16)
[2019-01-28] MEDS: ARTIFICIAL TEARS 15 ML OPH BOTH EYES PRN (15:23)
--- NOTE | 2019-01-28 15:24 | PN ---
Date/Time of Note Date/Time of Note DATE: 01/28/19 TIME: 15:22 Assessment/Plan VTE Prophylaxis Risk score (from Ns)>0 risk: 3 SCD applied (from Ns): No Lines/Catheters IV Catheter Type (from [facility]): Peripheral IV Urinary Cath still in place: No Assessment/Plan Assessment/Plan -Shortness of breath, rule out acute coronary syndrome, cardiac enzymes are negative x3. -Acute on chronic diastolic congestive heart failure. Continue Lasix. Dr. Foley is following in cardiology consultation. -COPD exacerbation, continue bronchodilators, steroids, and oxygen supplementation. -Anemia, Dr. Mayes is following in gastroenterology consultation. -Alcoholic liver cirrhosis -Acute kidney injury on chronic kidney disease. Dr. Leung is following in nephrology consultation. -Bilateral lower extremities chronic venous stasis -Left foot plantar ulcer. Dr. oYunger is following in podiatry consultation. -Obesity -Nicotine dependence, continue nicotine patch, cessation is strongly advised. -Ongoing alcohol use, cessation is strongly advised. -Poor medical compliance Result Diagram: 01/28/19 0540 01/28/19 0540 Results 24hrs Laboratory Tests Test 01/28/19 05:40 White Blood Count 18.0 H Red Blood Count 5.15 Hemoglobin 10.9 L Hematocrit 38.7 L Mean Corpuscular Volume 75.1 L Mean Corpuscular Hemoglobin 21.2 L Mean Corpuscular Hemoglobin Concent 28.2 L Red Cell Distribution Width 22.7 H Platelet Count 315 Mean Platelet Volume Immature Granulocytes % 3.700 H Neutrophils % 64.9 Lymphocytes % 8.7 L Monocytes % 17.8 H Eosinophils % 3.8 Basophils % 1.1 Nucleated Red Blood Cells % 0.2 H Immature Granulocytes # 0.660 H Neutrophils # 11.7 H Lymphocytes # 1.6 Monocytes # 3.2 H Eosinophils # 0.7 H Basophils # 0.2 H Nucleated Red Blood Cells # 0.0 Sodium Level 143 Potassium Level 4.8 Chloride Level 117 H Carbon Dioxide Level 16 L Anion Gap 10 Blood Urea Nitrogen 33 H Creatinine 1.51 H Est Glomerular Filtrat Rate mL/min 47 L Glucose Level 76 Calcium Level 9.1 Subjective 24 Hr Interval Summary Free Text/Dictation sp Colonoscopy today Exam/Review of Systems Exam Vitals Vital Signs Date Temp Pulse Resp B/P (MAP) Pulse Ox O2 O2 Flow FiO2 Time Delivery Rate 01/28/19 70 14 130/60 95 Room Air 12:57 (83) 01/28/19 98.4 12:47 01/27/19 21 20:16 Intake and Output 01/27/19 01/27/19 01/28/19 1515:00 23:00 07:00 IntakeIntake Total 1500 ml OutputOutput Total 1500 ml BalanceBalance 0 ml Results Results 24hrs Laboratory Tests Test 01/28/19 05:40 White Blood Count 18.0 H Red Blood Count 5.15 Hemoglobin 10.9 L Hematocrit 38.7 L Mean Corpuscular Volume 75.1 L Mean Corpuscular Hemoglobin 21.2 L Mean Corpuscular Hemoglobin Concent 28.2 L Red Cell Distribution Width 22.7 H Platelet Count 315 Mean Platelet Volume Immature Granulocytes % 3.700 H Neutrophils % 64.9 Lymphocytes % 8.7 L Monocytes % 17.8 H Eosinophils % 3.8 Basophils % 1.1 Nucleated Red Blood Cells % 0.2 H Immature Granulocytes # 0.660 H Neutrophils # 11.7 H Lymphocytes # 1.6 Monocytes # 3.2 H Eosinophils # 0.7 H Basophils # 0.2 H Nucleated Red Blood Cells # 0.0 Sodium Level 143 Potassium Level 4.8 Chloride Level 117 H Carbon Dioxide Level 16 L Anion Gap 10 Blood Urea Nitrogen 33 H Creatinine 1.51 H Est Glomerular Filtrat Rate mL/min 47 L Glucose Level 76 Calcium Level 9.1 Medications Medication Current Medications IV Flush (NS 3 ml) 3 ml PER PROTOCOL IV ; Start 01/11/19 at 13:00 Ondansetron HCl (Zofran Inj) 4 mg Q6H PRN IV NAUSEA/VOMITING Last administered on 01/28/19at 01:43; Admin Dose 4 MG; Start 01/11/19 at 13:00 Acetaminophen (Tylenol Tab) 650 mg Q6H PRN PO .PAIN 1-3 OR TEMP; Start 01/11/19 at 13:00 Albuterol (Proventil 0.083% (Neb)) 2.5 mg Q6 PRN HHN shortness of breath; Start 01/11/19 at 13:00 Metoprolol Succinate (Toprol Xl) 50 mg DAILY PO Last administered on 01/26/19at 08:57; Admin Dose 50 MG; Start 01/12/19 at 09:00 Clonidine (Catapres) 0.1 mg Q6H PRN PO systolic BP > 160 Last administered on 01/12/19 21:31; Admin Dose 0.1 MG; Start 01/12/19 at 21:00 Levothyroxine Sodium (Synthroid) 225 mcg DAILY@06 PO Last administered on 01/26/19 06:12; Admin Dose 225 MCG; Start 01/13/19 at 06:00 Allopurinol (Zyloprim) 100 mg DAILY PO Last administered on 01/26/19 08:59; Admin Dose 100 MG; Start 01/13/19 at 09:00 Ascorbic Acid (Vitamin C) 500 mg DAILY PO Last administered on 01/26/19 08:58; Admin Dose 500 MG; Start 01/13/19 at 09:00 Docusate Sodium (Colace) 200 mg QHS PO Last administered on 01/27/19 21:22; Admin Dose 200 MG; Start 01/13/19 at 21:00 Epoetin Ghulam-epbx (RETACRIT(non-esrd)) 10,000 unit Q48H SC Last administered on 01/25/19 18:32; Admin Dose 10,000 UNIT; Start 01/13/19 at 18:00; Status Hold Ferrous Sulfate (Ferrous Sulfate (Ec)) 325 mg DAILY PO Last administered on 01/26/19 08:59; Admin Dose 325 MG; Start 01/13/19 at 09:00 Folic Acid (Folic Acid) 1 mg DAILY PO Last administered on 01/26/19 08:59; Admin Dose 1 MG; Start 01/13/19 at 09:00 Gabapentin (Neurontin) 100 mg TID PO Last administered on 01/27/19 21:23; Admin Dose 100 MG; Start 01/13/19 at 09:00 Lorazepam (Ativan) 1 mg BID PRN PO ANXIETY Last administered on 01/14/19 20:36; Admin Dose 1 MG; Start 01/13/19 at 06:30 Rifaximin (Xifaxan) 550 mg BID PO Last administered on 01/27/19 21:23; Admin Dose 550 MG; Start 01/13/19 at 09:00 Tamsulosin HCl (Flomax) 0.4 mg HS PO Last administered on 01/27/19 21:24; Admin Dose 0.4 MG; Start 01/13/19 at 21:00 Thiamine HCl (Vitamin B1) 100 mg DAILY PO Last administered on 01/26/19 08:59; Admin Dose 100 MG; Start 01/13/19 at 09:00 Arformoterol Tartrate (Brovana (Neb)) 2 ml BID RESP THERAPY INH Last administered on 01/28/19 09:04; Admin Dose 2 ML; Start 01/13/19 at 09:00 Budesonide (Pulmicort (Neb)) 0.5 mg Q12H RESP THERAPY INH Last administered on 01/28/19 09:04; Admin Dose 0.5 MG; Start 01/13/19 at 09:00 Nicotine (Nicoderm 21 Mg/ 24hr) 1 patch DAILY TRANSDERM Last administered on 01/28/19 09:55; Admin Dose 1 PATCH; Start 01/14/19 at 09:00 Famotidine (Pepcid) 20 mg Q12 PO Last administered on 01/27/19 21:23; Admin Dose 20 MG; Start 01/13/19 at 21:00 Furosemide (Lasix) 20 mg DAILY PO Last administered on 01/26/19 08:57; Admin Dose 20 MG; Start 01/16/19 at 09:00 Buspirone HCl (Buspar) 10 mg BID PO Last administered on 01/27/19 21:23; Admin Dose 10 MG; Start 01/16/19 at 12:30 Acetaminophen/ Hydrocodone Bitart ([place] (10/325)) 2 tab Q4H PRN PO MODERATE PAIN LEVEL 4-6 Last administered on 01/27/19 18:05; Admin Dose 2 TAB; Start 01/20/19 at 18:30 Amlodipine Besylate (Norvasc) 5 mg BID PO Last administered on 01/27/19 21:24; Admin Dose 5 MG; Start 01/21/19 at 21:00 Metoprolol Succinate (Toprol Xl) 25 mg HS PO Last administered on 01/27/19 21:23; Admin Dose 25 MG; Start 01/23/19 at 21:00 Hydromorphone HCl (Dilaudid) 2 mg Q4H PRN IV SEVERE PAIN LEVEL 7-10 Last administered on 01/28/19 13:59; Admin Dose 2 MG; Start 01/25/19 at 14:00 Lorazepam (Ativan) 1 mg Q6H PRN IV ANXIETY Last administered on 01/28/19 15:03; Admin Dose 1 MG; Start 01/25/19 at 14:00 Dorzolamide/ Timolol (Cosopt Pf Eye Drops) 1 drop BID LEFT EYE Last administered on 01/26/19 08:59; Admin Dose 1 DROP; Start 01/26/19 at 09:00 Lactulose (Enulose) 30 gm BID PO Last administered on 01/27/19 21:21; Admin Dose 30 GM; Start 01/26/19 at 09:00 Simethicone (Mylicon) 80 mg Q6 PRN PO bloating; Start 01/26/19 at 07:00 Eye Lubricant (Artificial Tears Oph) 2 drop Q6H PRN BOTH EYES DRY EYES; Start 01/26/19 at 07:00 Lubiprostone (Amitiza) 24 mcg BID PO Last administered on 01/27/19 21:23; Admin Dose 24 MCG; Start 01/26/19 at 09:00 Polyethylene Glycol (Miralax) 17 gm DAILY PO ; Start 01/27/19 at 09:00 Sodium Bicarbonate (Sodium Bicarbonate Tab) 650 mg BID PO Last administered on 01/27/19 21:23; Admin Dose 650 MG; Start 01/27/19 at 21:00 Ondansetron HCl (Zofran Inj) 4 mg PACU ORDER PRN IV NAUSEA/VOMITING; Start 01/28/19 at 12:30; Stop 01/28/19 at 19:00 Linezolid (Zyvox) 600 mg BID PO ; Start 01/28/19 at 13:30 GO LAMBERT Jan 28, 2019 15:23
[2019-01-28] MEDS: HYDROCODONE/APAP (10/325) TAB PO PRN ×2 (16:08→20:05)
--- NOTE | 2019-01-28 16:24 | CONS ---
Assessment/Plan Assessment/Plan Hospital Course (Demo Recall) No fevers, looks comfortable Antimicrobials: Doxycycline Physical examination: This is a wasted well-developed chronically ill-appearing elderly man who is in no distress. Head atraumatic normocephalic sclera nonicteric. Neck is supple chest rise symmetrical breath sounds diminished bases. Heart: S1-S2. Abdomen soft bowel sounds present. Extremities without BLE edema, mild erythema, no cyanosis. Assessment: 1. Systemic inflammatory response syndrome with ongoing leukocytosis, clin ically stable 2. S/p COPD exacerbation 3. Alcohol abuse 4. Bilateral lower extremities acute on chronic cellulitis/chronic venous stasis 5. Cirrhosis with recurrent ascites 6. Chronic kidney disease 7. CHF 8. Noncompliance Plan: Clinically unchanged, bilateral lower extremities still with significant erythema, will change antibiotics to Zyvox Consultation Date/Type/Reason Admit Date/Time Jan 11, 2019 at 09:53 Initial Consult Date Type of Consult id Requesting Provider: KOKO MARLOW MD Date/Time of Note DATE: 01/28/19 TIME: 16:24 Exam/Review of Systems Exam Vitals Vital Signs Date Temp Pulse Resp B/P (MAP) Pulse Ox O2 O2 Flow FiO2 Time Delivery Rate 01/28/19 70 14 130/60 95 Room Air 12:57 (83) 01/28/19 98.4 12:47 01/27/19 21 20:16 Intake and Output 01/27/19 01/27/19 01/28/19 1515:00 23:00 07:00 IntakeIntake Total 1500 ml OutputOutput Total 1500 ml BalanceBalance 0 ml Results Result Diagram: 01/28/19 0540 01/28/19 0540 Results 24hrs Laboratory Tests Test 01/28/19 05:40 White Blood Count 18.0 H Red Blood Count 5.15 Hemoglobin 10.9 L Hematocrit 38.7 L Mean Corpuscular Volume 75.1 L Mean Corpuscular Hemoglobin 21.2 L Mean Corpuscular Hemoglobin Concent 28.2 L Red Cell Distribution Width 22.7 H Platelet Count 315 Mean Platelet Volume Immature Granulocytes % 3.700 H Neutrophils % 64.9 Lymphocytes % 8.7 L Monocytes % 17.8 H Eosinophils % 3.8 Basophils % 1.1 Nucleated Red Blood Cells % 0.2 H Immature Granulocytes # 0.660 H Neutrophils # 11.7 H Lymphocytes # 1.6 Monocytes # 3.2 H Eosinophils # 0.7 H Basophils # 0.2 H Nucleated Red Blood Cells # 0.0 Sodium Level 143 Potassium Level 4.8 Chloride Level 117 H Carbon Dioxide Level 16 L Anion Gap 10 Blood Urea Nitrogen 33 H Creatinine 1.51 H Est Glomerular Filtrat Rate mL/min 47 L Glucose Level 76 Calcium Level 9.1 Medications Medication Current Medications IV Flush (NS 3 ml) 3 ml PER PROTOCOL IV ; Start 01/11/19 at 13:00 Ondansetron HCl (Zofran Inj) 4 mg Q6H PRN IV NAUSEA/VOMITING Last administered on 01/28/19 01:43; Admin Dose 4 MG; Start 01/11/19 at 13:00 Acetaminophen (Tylenol Tab) 650 mg Q6H PRN PO .PAIN 1-3 OR TEMP; Start 01/11/19 at 13:00 Albuterol (Proventil 0.083% (Neb)) 2.5 mg Q6 PRN HHN shortness of breath; Start 01/11/19 at 13:00 Metoprolol Succinate (Toprol Xl) 50 mg DAILY PO Last administered on 01/26/19 08:57; Admin Dose 50 MG; Start 01/12/19 at 09:00 Clonidine (Catapres) 0.1 mg Q6H PRN PO systolic BP > 160 Last administered on 01/12/19 21:31; Admin Dose 0.1 MG; Start 01/12/19 at 21:00 Levothyroxine Sodium (Synthroid) 225 mcg DAILY@06 PO Last administered on 01/26/19 06:12; Admin Dose 225 MCG; Start 01/13/19 at 06:00 Allopurinol (Zyloprim) 100 mg DAILY PO Last administered on 01/26/19 08:59; Admin Dose 100 MG; Start 01/13/19 at 09:00 Ascorbic Acid (Vitamin C) 500 mg DAILY PO Last administered on 01/26/19 08:58; Admin Dose 500 MG; Start 01/13/19 at 09:00 Docusate Sodium (Colace) 200 mg QHS PO Last administered on 01/27/19 21:22; Admin Dose 200 MG; Start 01/13/19 at 21:00 Epoetin Ghulam-epbx (RETACRIT(non-esrd)) 10,000 unit Q48H SC Last administered on 01/25/19 18:32; Admin Dose 10,000 UNIT; Start 01/13/19 at 18:00; Status Hold Ferrous Sulfate (Ferrous Sulfate (Ec)) 325 mg DAILY PO Last administered on 01/26/19 08:59; Admin Dose 325 MG; Start 01/13/19 at 09:00 Folic Acid (Folic Acid) 1 mg DAILY PO Last administered on 01/26/19 08:59; Admin Dose 1 MG; Start 01/13/19 at 09:00 Gabapentin (Neurontin) 100 mg TID PO Last administered on 01/27/19 21:23; Admin Dose 100 MG; Start 01/13/19 at 09:00 Lorazepam (Ativan) 1 mg BID PRN PO ANXIETY Last administered on 01/14/19 20:36; Admin Dose 1 MG; Start 01/13/19 at 06:30 Rifaximin (Xifaxan) 550 mg BID PO Last administered on 01/27/19 21:23; Admin D ose 550 MG; Start 01/13/19 at 09:00 Tamsulosin HCl (Flomax) 0.4 mg HS PO Last administered on 01/27/19 21:24; Admin Dose 0.4 MG; Start 01/13/19 at 21:00 Thiamine HCl (Vitamin B1) 100 mg DAILY PO Last administered on 01/26/19 08:59; Admin Dose 100 MG; Start 01/13/19 at 09:00 Arformoterol Tartrate (Brovana (Neb)) 2 ml BID RESP THERAPY INH Last administered on 01/28/19 09:04; Admin Dose 2 ML; Start 01/13/19 at 09:00 Budesonide (Pulmicort (Neb)) 0.5 mg Q12H RESP THERAPY INH Last administered on 01/28/19 09:04; Admin Dose 0.5 MG; Start 01/13/19 at 09:00 Nicotine (Nicoderm 21 Mg/ 24hr) 1 patch DAILY TRANSDERM Last administered on 01/28/19 09:55; Admin Dose 1 PATCH; Start 01/14/19 at 09:00 Famotidine (Pepcid) 20 mg Q12 PO Last administered on 01/27/19 21:23; Admin Dose 20 MG; Start 01/13/19 at 21:00 Furosemide (Lasix) 20 mg DAILY PO Last administered on 01/26/19 08:57; Admin Dose 20 MG; Start 01/16/19 at 09:00 Buspirone HCl (Buspar) 10 mg BID PO Last administered on 01/27/19 21:23; Admin Dose 10 MG; Start 01/16/19 at 12:30 Acetaminophen/ Hydrocodone Bitart ([place] (10/325)) 2 tab Q4H PRN PO MODERATE PAIN LEVEL 4-6 Last administered on 01/28/19 16:08; Admin Dose 2 TAB; Start 01/20/19 at 18:30 Amlodipine Besylate (Norvasc) 5 mg BID PO Last administered on 01/27/19 21:24; Admin Dose 5 MG; Start 01/21/19 at 21:00 Metoprolol Succinate (Toprol Xl) 25 mg HS PO Last administered on 01/27/19 21:23; Admin Dose 25 MG; Start 01/23/19 at 21:00 Hydromorphone HCl (Dilaudid) 2 mg Q4H PRN IV SEVERE PAIN LEVEL 7-10 Last administered on 01/28/19 13:59; Admin Dose 2 MG; Start 01/25/19 at 14:00 Lorazepam (Ativan) 1 mg Q6H PRN IV ANXIETY Last administered on 01/28/19 15:03; Admin Dose 1 MG; Start 01/25/19 at 14:00 Dorzolamide/ Timolol (Cosopt Pf Eye Drops) 1 drop BID LEFT EYE Last administered on 01/26/19 08:59; Admin Dose 1 DROP; Start 01/26/19 at 09:00 Lactulose (Enulose) 30 gm BID PO Last administered on 01/27/19 21:21; Admin Dose 30 GM; Start 01/26/19 at 09:00 Simethicone (Mylicon) 80 mg Q6 PRN PO bloating; Start 01/26/19 at 07:00 Eye Lubricant (Artificial Tears Oph) 2 drop Q6H PRN BOTH EYES DRY EYES Last administered on 01/28/19 15:23; Admin Dose 2 DROP; Start 01/26/19 at 07:00 Lubiprostone (Amitiza) 24 mcg BID PO Last administered on 01/27/19at 21:23; Adm in Dose 24 MCG; Start 01/26/19 at 09:00 Polyethylene Glycol (Miralax) 17 gm DAILY PO ; Start 01/27/19 at 09:00 Sodium Bicarbonate (Sodium Bicarbonate Tab) 650 mg BID PO Last administered on 01/27/19at 21:23; Admin Dose 650 MG; Start 01/27/19 at 21:00 Ondansetron HCl (Zofran Inj) 4 mg PACU ORDER PRN IV NAUSEA/VOMITING; Start 01/28/19 at 12:30; Stop 01/28/19 at 19:00 Linezolid (Zyvox) 600 mg BID PO ; Start 01/28/19 at 13:30 MELISSA NASH NP Jan 28, 2019 16:24
[2019-01-28] MEDS: ZYVOX 600 MG TAB PO SCH ×2 (18:33→20:09)
[2019-01-28] MEDS: TAMSULOSIN (SR) 0.4 MG CAP PO SCH (20:12)
[2019-01-28] MEDS: DOCUSATE SODIUM 100 MG CAP PO SCH (20:12)
[2019-01-28] MEDS: METOPROLOL (XL) 25 MG TAB PO SCH (20:13)
[2019-01-29 02:00] VITALS: BP 149/65; PULSE 85; RESP 18
[2019-01-29] MEDS: HYDROmorphONE 2 MG/ML SYG IV PRN ×6 (02:09→23:38)
[2019-01-29] MEDS: LORAZEPAM 2 MG INJ IV PRN ×3 (03:58→18:13)
[2019-01-29] MEDS: LEVOTHYROXINE 75 MCG TAB PO SCH (06:28)
[2019-01-29 07:25] VITALS: BP 153/70; PULSE 71; RESP 16
[2019-01-29] MEDS: ARFORMOTEROL TARTRATE 15MCG/2 ML AMP INH SCH ×2 (08:08→19:19)
[2019-01-29] MEDS: BUDESONIDE (NEB) 0.5MG/2ML AMP INH SCH ×2 (08:10→19:20)
[2019-01-29] MEDS: DORZOLAMIDE/TIMOLOL/PF 0.2 ML DROPERETTE LEFT EYE SCH ×2 (09:00→20:53)
[2019-01-29] MEDS: HYDROCODONE/APAP (10/325) TAB PO PRN ×4 (09:25→20:56)
[2019-01-29] MEDS: AMLODIPINE 5 MG TAB PO SCH ×2 (10:46→20:45)
[2019-01-29] MEDS: THIAMINE 100 MG TAB PO SCH (10:46)
[2019-01-29] MEDS: FAMOTIDINE 20 MG TAB PO SCH ×2 (10:46→20:45)
[2019-01-29] MEDS: RIFAXIMIN 550 MG TAB PO SCH ×2 (10:49→20:45)
[2019-01-29] MEDS: FUROSEMIDE 20 MG TAB PO SCH (10:50)
[2019-01-29] MEDS: FOLIC ACID 1 MG TAB PO SCH (10:50)
[2019-01-29] MEDS: LUBIPROSTONE 24 MCG CAP PO SCH ×2 (10:50→20:50)
[2019-01-29] MEDS: LACTULOSE 30ML CUP PO SCH ×2 (10:50→20:43)
[2019-01-29] MEDS: CITRIC ACID/NA CITRATE 30 ML CUP PO SCH ×4 (10:50→20:43)
[2019-01-29] MEDS: FERROUS SULFATE (EC) 325 MG TAB PO SCH (10:51)
[2019-01-29] MEDS: GABAPENTIN 100 MG CAP PO SCH ×3 (10:51→20:45)
[2019-01-29] MEDS: ALLOPURINOL 100 MG TAB PO SCH (10:51)
[2019-01-29] MEDS: ASCORBIC ACID 500 MG TAB PO SCH (10:51)
[2019-01-29] MEDS: BUSPIRONE 10 MG TAB PO SCH ×2 (10:51→20:45)
[2019-01-29] MEDS: ZYVOX 600 MG TAB PO SCH ×2 (10:51→20:45)
[2019-01-29] MEDS: METOPROLOL (XL) 50 MG TAB PO SCH (10:51)
[2019-01-29] MEDS: NICOTINE (21 MG/24 HR) PATCH TRANSDERM SCH (10:52)
--- NOTE | 2019-01-29 10:55 | CONS ---
Assessment/Plan Assessment/Plan Assessment/Plan (Daily) 1. acute on chronic renal failure due to Type II hepatorenal syndrome 2. SIRS 3. anemia of CKD 5. Decompensated Liver cirrhosis with Symptomatic ascites 6. H/O HTN 7. h/o Liver cirrhosis with ascites 8. H/o Diastolic CHF 9. Bilateral LE chronic venous stasis 10.H/o BPH on Flomax 11. Acute hyperkalemia Plan: s/p IV abx Ertapenam, renally dose all abx , monitor electrolytes and replace as needed, BUN/Cr 33/1.5 today - K 4.8 yesterday, no labs today to review yet , HCO3 16- on Bicitra 30ml PO TID Continue Lasix to 20mg po daily, , , Toprol Xl 50mg/25mg , amlodipine 5 mg po BID plan for colonoscopy today Flomax 0.4mg po daily for BPH will follow up Consultation Date/Type/Reason Admit Date/Time Jan 11, 2019 at 09:53 Initial Consult Date 01/11/19 Type of Consult NEPHROLOGY Requesting Provider: KOKO MARLOW MD Date/Time of Note DATE: 01/29/19 TIME: 10:55 Exam/Review of Systems Exam Vitals Vital Signs Date Temp Pulse Resp B/P (MAP) Pulse Ox O2 O2 Flow FiO2 Time Delivery Rate 01/29/19 68 18 95 21 08:09 01/29/19 98.0 153/70 Room Air 07:25 (97) Intake and Output 01/28/19 01/28/19 01/29/19 1515:00 23:00 07:00 IntakeIntake Total 320 ml 640 ml OutputOutput Total 800 ml BalanceBalance -480 ml 640 ml Results Result Diagram: 01/28/19 0540 01/28/19 0540 Medications Medication Current Medications IV Flush (NS 3 ml) 3 ml PER PROTOCOL IV ; Start 01/11/19 at 13:00 Ondansetron HCl (Zofran Inj) 4 mg Q6H PRN IV NAUSEA/VOMITING Last administered on 01/28/19at 01:43; Admin Dose 4 MG; Start 01/11/19 at 13:00 Acetaminophen (Tylenol Tab) 650 mg Q6H PRN PO .PAIN 1-3 OR TEMP; Start 01/11/19 at 13:00 Albuterol (Proventil 0.083% (Neb)) 2.5 mg Q6 PRN HHN shortness of breath; Start 01/11/19 at 13:00 Metoprolol Succinate (Toprol Xl) 50 mg DAILY PO Last administered on 01/26/19 08:57; Admin Dose 50 MG; Start 01/12/19 at 09:00 Clonidine (Catapres) 0.1 mg Q6H PRN PO systolic BP > 160 Last administered on 01/12/19 21:31; Admin Dose 0.1 MG; Start 01/12/19 at 21:00 Levothyroxine Sodium (Synthroid) 225 mcg DAILY@06 PO Last administered on 01/29/19 06:28; Admin Dose 225 MCG; Start 01/13/19 at 06:00 Allopurinol (Zyloprim) 100 mg DAILY PO Last administered on 01/26/19 08:59; Admin Dose 100 MG; Start 01/13/19 at 09:00 Ascorbic Acid (Vitamin C) 500 mg DAILY PO Last administered on 01/26/19 08:58; Admin Dose 500 MG; Start 01/13/19 at 09:00 Docusate Sodium (Colace) 200 mg QHS PO Last administered on 01/28/19 20:12; Admin Dose 200 MG; Start 01/13/19 at 21:00 Epoetin Ghulam-epbx (RETACRIT(non-esrd)) 10,000 unit Q48H SC Last administered on 01/25/19 18:32; Admin Dose 10,000 UNIT; Start 01/13/19 at 18:00 Ferrous Sulfate (Ferrous Sulfate (Ec)) 325 mg DAILY PO Last administered on 01/26/19 08:59; Admin Dose 325 MG; Start 01/13/19 at 09:00 Folic Acid (Folic Acid) 1 mg DAILY PO Last administered on 01/26/19 08:59; Admin Dose 1 MG; Start 01/13/19 at 09:00 Gabapentin (Neurontin) 100 mg TID PO Last administered on 01/28/19 20:12; Admin Dose 100 MG; Start 01/13/19 at 09:00 Lorazepam (Ativan) 1 mg BID PRN PO ANXIETY Last administered on 01/14/19 20:36; Admin Dose 1 MG; Start 01/13/19 at 06:30 Rifaximin (Xifaxan) 550 mg BID PO Last administered on 01/28/19 20:13; Admin Dose 550 MG; Start 01/13/19 at 09:00 Tamsulosin HCl (Flomax) 0.4 mg HS PO Last administered on 01/28/19 20:12; Admin Dose 0.4 MG; Start 01/13/19 at 21:00 Thiamine HCl (Vitamin B1) 100 mg DAILY PO Last administered on 01/26/19 08:59; Admin Dose 100 MG; Start 01/13/19 at 09:00 Arformoterol Tartrate (Brovana (Neb)) 2 ml BID RESP THERAPY INH Last administered on 01/29/19 08:08; Admin Dose 2 ML; Start 01/13/19 at 09:00 Budesonide (Pulmicort (Neb)) 0.5 mg Q12H RESP THERAPY INH Last administered on 01/29/19 08:10; Admin Dose 0.5 MG; Start 01/13/19 at 09:00 Nicotine (Nicoderm 21 Mg/ 24hr) 1 patch DAILY TRANSDERM Last administered on 01/28/19 09:55; Admin Dose 1 PATCH; Start 01/14/19 at 09:00 Famotidine (Pepcid) 20 mg Q12 PO Last administered on 01/28/19 20:13; Admin Dose 20 MG; Start 01/13/19 at 21:00 Furosemide (Lasix) 20 mg DAILY PO Last administered on 01/26/19 08:57; Admin Dose 20 MG; Start 01/16/19 at 09:00 Buspirone HCl (Buspar) 10 mg BID PO Last administered on 01/28/19 20:13; Admin Dose 10 MG; Start 01/16/19 at 12:30 Acetaminophen/ Hydrocodone Bitart ([place] (10/325)) 2 tab Q4H PRN PO MODERATE PAIN LEVEL 4-6 Last administered on 01/29/19 09:27; Admin Dose 2 TAB; Start 01/20/19 at 18:30 Amlodipine Besylate (Norvasc) 5 mg BID PO Last administered on 01/28/19 20:18; Admin Dose 5 MG; Start 01/21/19 at 21:00 Metoprolol Succinate (Toprol Xl) 25 mg HS PO Last administered on 01/28/19 20:13; Admin Dose 25 MG; Start 01/23/19 at 21:00 Hydromorphone HCl (Dilaudid) 2 mg Q4H PRN IV SEVERE PAIN LEVEL 7-10 Last administered on 01/29/19 06:27; Admin Dose 2 MG; Start 01/25/19 at 14:00 Lorazepam (Ativan) 1 mg Q6H PRN IV ANXIETY Last administered on 01/29/19 03:58; Admin Dose 1 MG; Start 01/25/19 at 14:00 Dorzolamide/ Timolol (Cosopt Pf Eye Drops) 1 drop BID LEFT EYE Last administered on 01/26/19 08:59; Admin Dose 1 DROP; Start 01/26/19 at 09:00 Lactulose (Enulose) 30 gm BID PO Last administered on 01/28/19 20:13; Admin Dose 30 GM; Start 01/26/19 at 09:00 Simethicone (Mylicon) 80 mg Q6 PRN PO bloating; Start 01/26/19 at 07:00 Eye Lubricant (Artificial Tears Oph) 2 drop Q6H PRN BOTH EYES DRY EYES Last administered on 01/28/19 15:23; Admin Dose 2 DROP; Start 01/26/19 at 07:00 Lubiprostone (Amitiza) 24 mcg BID PO Last administered on 01/28/19 20:13; Admin Dose 24 MCG; Start 01/26/19 at 09:00 Polyethylene Glycol (Miralax) 17 gm DAILY PO ; Start 01/27/19 at 09:00 Linezolid (Zyvox) 600 mg BID PO Last administered on 01/28/19 18:33; Admin Dose 600 MG; Start 01/28/19 at 13:30 Citric Acid/ Sodium Citrate (Bicitra) 30 ml TID PO ; Start 01/29/19 at 09:00 ELADIO DELGADO MD Jan 29, 2019 10:55
[2019-01-29] MEDS: POLYETHYLENE GLYCOL 17 GM PACKET PO SCH (11:08)
--- NOTE | 2019-01-29 13:41 | CONS ---
Assessment/Plan Assessment/Plan Hospital Course (Demo Recall) IMPRESSION: 1. Congestive heart failure exacerbation, diastolic, acute on chronic. 2. Hypertension-mildly elavated 3. Shortness of breath secondary to congestive heart failure exacerbation, d iastolic, acute on chronic. 4. Chronic renal failure. 5. Cirrhosis. 6. Ascites, recurrent. 7. Hypothyroidism. 8. History of ETOH abuse. 9. Anemia. 10.leukocytosis-worsening REcc: -ON med-surg -serial ecg's -Contineu lasix and follow volume status closely and ascites -aldactone d/c'd secondary to elevated K -Continue toprol and CCB and follow BP clsoely and will make additional increase to Toprol -Continue lactulose -pain control -Continue abx's and f/u cx data -To have colonscopy tomorrow -ID following Consultation Date/Type/Reason Admit Date/Time Jan 11, 2019 at 09:53 Initial Consult Date 01/12/19 Type of Consult Cardiology Reason for Consultation CHF/HTN Requesting Provider: KOKO MARLOW MD Date/Time of Note DATE: 01/29/19 TIME: 13:39 Exam/Review of Systems Vital Signs Vitals Vital Signs Date Temp Pulse Resp B/P (MAP) Pulse Ox O2 O2 Flow FiO2 Time Delivery Rate 01/29/19 68 18 95 21 08:09 01/29/19 98.0 153/70 Room Air 07:25 (97) Intake and Output 01/28/19 01/28/19 01/29/19 1515:00 23:00 07:00 IntakeIntake Total 320 ml 640 ml OutputOutput Total 800 ml BalanceBalance -480 ml 640 ml Exam Exam Review of Systems: CONSTITUTIONAL: No fevers, chills. PULMONARY: No sob CARDIOVASCULAR: No chest pain/palpitations GASTROINTESTINAL: No nausea/vomiting. GENITOURINARY: No hematuria/dysuria. MUSCULOSKELETAL: No myagias/arthalgias. PSYCHIATRIC: The patient denies depression. NEUROLOGIC: lethargic Constitutional: other (sleeping) Psych: no complaints Head: normocephalic ENMT: mucosa pink and moist Neck: supple, jvd (9 cm water) Respiratory: diminished breath sounds (at bases/B) Cardiovascular: regular rate and rhythm Gastrointestinal: soft, non-tender Musculoskeletal: muscle tone (normal) Extremities: edema (bilateral with chronic venous stasis changes) Labs Result Diagram: 01/28/19 0540 01/28/19 0540 Medications Medications Current Medications IV Flush (NS 3 ml) 3 ml PER PROTOCOL IV ; Start 01/11/19 at 13:00 Ondansetron HCl (Zofran Inj) 4 mg Q6H PRN IV NAUSEA/VOMITING Last administered on 01/28/19 01:43; Admin Dose 4 MG; Start 01/11/19 at 13:00 Acetaminophen (Tylenol Tab) 650 mg Q6H PRN PO .PAIN 1-3 OR TEMP; Start 01/11/19 at 13:00 Albuterol (Proventil 0.083% (Neb)) 2.5 mg Q6 PRN HHN shortness of breath; Start 01/11/19 at 13:00 Metoprolol Succinate (Toprol Xl) 50 mg DAILY PO Last administered on 01/29/19 10:51; Admin Dose 50 MG; Start 01/12/19 at 09:00 Clonidine (Catapres) 0.1 mg Q6H PRN PO systolic BP > 160 Last administered on 01/12/19 21:31; Admin Dose 0.1 MG; Start 01/12/19 at 21:00 Levothyroxine Sodium (Synthroid) 225 mcg DAILY@06 PO Last administered on 01/29/19 06:28; Admin Dose 225 MCG; Start 01/13/19 at 06:00 Allopurinol (Zyloprim) 100 mg DAILY PO Last administered on 01/29/19 10:51; Admin Dose 100 MG; Start 01/13/19 at 09:00 Ascorbic Acid (Vitamin C) 500 mg DAILY PO Last administered on 01/29/19 10:51; Admin Dose 500 MG; Start 01/13/19 at 09:00 Docusate Sodium (Colace) 200 mg QHS PO Last administered on 01/28/19 20:12; Admin Dose 200 MG; Start 01/13/19 at 21:00 Epoetin Ghulam-epbx (RETACRIT(non-esrd)) 10,000 unit Q48H SC Last administered on 01/25/19 18:32; Admin Dose 10,000 UNIT; Start 01/13/19 at 18:00; Status Hold Ferrous Sulfate (Ferrous Sulfate (Ec)) 325 mg DAILY PO Last administered on 01/29/19 10:51; Admin Dose 325 MG; Start 01/13/19 at 09:00 Folic Acid (Folic Acid) 1 mg DAILY PO Last administered on 01/29/19 10:50; Admin Dose 1 MG; Start 01/13/19 at 09:00 Gabapentin (Neurontin) 100 mg TID PO Last administered on 01/29/19 10:51; Admin Dose 100 MG; Start 01/13/19 at 09:00 Lorazepam (Ativan) 1 mg BID PRN PO ANXIETY Last administered on 01/14/19 20:36; Admin Dose 1 MG; Start 01/13/19 at 06:30 Rifaximin (Xifaxan) 550 mg BID PO Last administered on 01/29/19 10:49; Admin Dose 550 MG; Start 01/13/19 at 09:00 Tamsulosin HCl (Flomax) 0.4 mg HS PO Last administered on 01/28/19 20:12; Admin Dose 0.4 MG; Start 01/13/19 at 21:00 Thiamine HCl (Vitamin B1) 100 mg DAILY PO Last administered on 01/29/19 10:46; Admin Dose 100 MG; Start 01/13/19 at 09:00 Arformoterol Tartrate (Brovana (Neb)) 2 ml BID RESP THERAPY INH Last administered on 01/29/19 08:08; Admin Dose 2 ML; Start 01/13/19 at 09:00 Budesonide (Pulmicort (Neb)) 0.5 mg Q12H RESP THERAPY INH Last administered on 01/29/19 08:10; Admin Dose 0.5 MG; Start 01/13/19 at 09:00 Nicotine (Nicoderm 21 Mg/ 24hr) 1 patch DAILY TRANSDERM Last administered on 01/29/19 10:52; Admin Dose 1 PATCH; Start 01/14/19 at 09:00 Famotidine (Pepcid) 20 mg Q12 PO Last administered on 01/29/19 10:46; Admin Dose 20 MG; Start 01/13/19 at 21:00 Furosemide (Lasix) 20 mg DAILY PO Last administered on 01/29/19 10:50; Admin Dose 20 MG; Start 01/16/19 at 09:00 Buspirone HCl (Buspar) 10 mg BID PO Last administered on 01/29/19 10:51; Admin Dose 10 MG; Start 01/16/19 at 12:30 Acetaminophen/ Hydrocodone Bitart ([place] (10)) 2 tab Q4H PRN PO MODERATE PAIN LEVEL 4-6 Last administered on 01/29/19 09:27; Admin Dose 2 TAB; Start 01/20/19 at 18:30 Amlodipine Besylate (Norvasc) 5 mg BID PO Last administered on 01/29/19 10:46; Admin Dose 5 MG; Start 01/21/19 at 21:00 Metoprolol Succinate (Toprol Xl) 25 mg HS PO Last administered on 01/28/19 20:13; Admin Dose 25 MG; Start 01/23/19 at 21:00 Hydromorphone HCl (Dilaudid) 2 mg Q4H PRN IV SEVERE PAIN LEVEL 7-10 Last administered on 01/29/19 10:45; Admin Dose 2 MG; Start 01/25/19 at 14:00 Lorazepam (Ativan) 1 mg Q6H PRN IV ANXIETY Last administered on 01/29/19 11:54; Admin Dose 1 MG; Start 01/25/19 at 14:00 Dorzolamide/ Timolol (Cosopt Pf Eye Drops) 1 drop BID LEFT EYE Last administered on 01/26/19 08:59; Admin Dose 1 DROP; Start 01/26/19 at 09:00 Lactulose (Enulose) 30 gm BID PO Last administered on 01/29/19 10:50; Admin Do se 30 GM; Start 01/26/19 at 09:00 Simethicone (Mylicon) 80 mg Q6 PRN PO bloating; Start 01/26/19 at 07:00 Eye Lubricant (Artificial Tears Oph) 2 drop Q6H PRN BOTH EYES DRY EYES Last administered on 01/28/19 15:23; Admin Dose 2 DROP; Start 01/26/19 at 07:00 Lubiprostone (Amitiza) 24 mcg BID PO Last administered on 01/29/19 10:50; Admin Dose 24 MCG; Start 01/26/19 at 09:00 Polyethylene Glycol (Miralax) 17 gm DAILY PO ; Start 01/27/19 at 09:00 Linezolid (Zyvox) 600 mg BID PO Last administered on 01/29/19at 10:51; Admin Dose 600 MG; Start 01/28/19 at 13:30 Citric Acid/ Sodium Citrate (Bicitra) 30 ml TID PO Last administered on 01/29/19at 10:50; Admin Dose 30 ML; Start 01/29/19 at 09:00 DUSTY CANTU Jan 29, 2019 13:41
[2019-01-29 14:06] VITALS: BP 127/65; PULSE 79; RESP 16
--- NOTE | 2019-01-29 14:57 | CONS ---
Assessment/Plan Assessment/Plan Hospital Course (Demo Recall) No acute changes Antimicrobials: Zyvox Physical examination: This is a wasted well-developed chronically ill-appearing elderly man who is in no distress. Head atraumatic normocephalic sclera nonicteric. Neck is supple chest rise symmetrical breath sounds diminished bases. Heart: S1-S2. Abdomen soft bowel sounds present. Extremities without BLE edema, mild erythema, no cyanosis. Assessment: 1. Systemic inflammatory response syndrome with ongoing leukocytosis, clinically stable 2. S/p COPD exacerbation 3. Alcohol abuse 4. Bilateral lower extremities acute on chronic cellulitis/chronic venous stasis 5. Cirrhosis with recurrent ascites 6. Chronic kidney disease 7. CHF 8. Noncompliance Plan: Clinically unchanged, stable, continue present care Consultation Date/Type/Reason Admit Date/Time Jan 11, 2019 at 09:53 Initial Consult Date Type of Consult id Requesting Provider: KOKO MARLOW MD Date/Time of Note DATE: 01/29/19 TIME: 14:56 Exam/Review of Systems Exam Vitals Vital Signs Date Temp Pulse Resp B/P (MAP) Pulse Ox O2 O2 Flow FiO2 Time Delivery Rate 01/29/19 97.9 79 16 127/65 94 Room Air 14:06 (85) 01/29/19 21 08:09 Intake and Output 01/28/19 01/28/19 01/29/19 1515:00 23:00 07:00 IntakeIntake Total 320 ml 640 ml OutputOutput Total 800 ml BalanceBalance -480 ml 640 ml Results Result Diagram: 01/28/19 0540 01/28/19 0540 Medications Medication Current Medications IV Flush (NS 3 ml) 3 ml PER PROTOCOL IV ; Start 01/11/19 at 13:00 Ondansetron HCl (Zofran Inj) 4 mg Q6H PRN IV NAUSEA/VOMITING Last administered on 01/28/19at 01:43; Admin Dose 4 MG; Start 01/11/19 at 13:00 Acetaminophen (Tylenol Tab) 650 mg Q6H PRN PO .PAIN 1-3 OR TEMP; Start 01/11/19 at 13:00 Albuterol (Proventil 0.083% (Neb)) 2.5 mg Q6 PRN HHN shortness of breath; Start 01/11/19 at 13:00 Metoprolol Succinate (Toprol Xl) 50 mg DAILY PO Last administered on 01/29/19 10:51; Admin Dose 50 MG; Start 01/12/19 at 09:00 Clonidine (Catapres) 0.1 mg Q6H PRN PO systolic BP > 160 Last administered on 01/12/19 21:31; Admin Dose 0.1 MG; Start 01/12/19 at 21:00 Levothyroxine Sodium (Synthroid) 225 mcg DAILY@06 PO Last administered on 01/29/19 06:28; Admin Dose 225 MCG; Start 01/13/19 at 06:00 Allopurinol (Zyloprim) 100 mg DAILY PO Last administered on 01/29/19 10:51; Admin Dose 100 MG; Start 01/13/19 at 09:00 Ascorbic Acid (Vitamin C) 500 mg DAILY PO Last administered on 01/29/19 10:51; Admin Dose 500 MG; Start 01/13/19 at 09:00 Docusate Sodium (Colace) 200 mg QHS PO Last administered on 01/28/19 20:12; Admin Dose 200 MG; Start 01/13/19 at 21:00 Epoetin Ghulam-epbx (RETACRIT(non-esrd)) 10,000 unit Q48H SC Last administered on 01/25/19 18:32; Admin Dose 10,000 UNIT; Start 01/13/19 at 18:00; Status Hold Ferrous Sulfate (Ferrous Sulfate (Ec)) 325 mg DAILY PO Last administered on 01/06 10:51; Admin Dose 325 MG; Start 01/13/19 at 09:00 Folic Acid (Folic Acid) 1 mg DAILY PO Last administered on 01/29/19 10:50; Admin Dose 1 MG; Start 01/13/19 at 09:00 Gabapentin (Neurontin) 100 mg TID PO Last administered on 01/29/19 10:51; Admin Dose 100 MG; Start 01/13/19 at 09:00 Lorazepam (Ativan) 1 mg BID PRN PO ANXIETY Last administered on 01/14/19 20:36; Admin Dose 1 MG; Start 01/13/19 at 06:30 Rifaximin (Xifaxan) 550 mg BID PO Last administered on 01/29/19 10:49; Admin Dose 550 MG; Start 01/13/19 at 09:00 Tamsulosin HCl (Flomax) 0.4 mg HS PO Last administered on 01/28/19 20:12; Admin Dose 0.4 MG; Start 01/13/19 at 21:00 Thiamine HCl (Vitamin B1) 100 mg DAILY PO Last administered on 01/29/19 10:46; Admin Dose 100 MG; Start 01/13/19 at 09:00 Arformoterol Tartrate (Brovana (Neb)) 2 ml BID RESP THERAPY INH Last administered on 01/29/19 08:08; Admin Dose 2 ML; Start 01/13/19 at 09:00 Budesonide (Pulmicort (Neb)) 0.5 mg Q12H RESP THERAPY INH Last administered on 01/29/19 08:10; Admin Dose 0.5 MG; Start 01/13/19 at 09:00 Nicotine (Nicoderm 21 Mg/ 24hr) 1 patch DAILY TRANSDERM Last administered on 01/29/19 10:52; Admin Dose 1 PATCH; Start 01/14/19 at 09:00 Famotidine (Pepcid) 20 mg Q12 PO Last administered on 01/29/19 10:46; Admin Dose 20 MG; Start 01/13/19 at 21:00 Furosemide (Lasix) 20 mg DAILY PO Last administered on 01/29/19 10:50; Admin Dose 20 MG; Start 01/16/19 at 09:00 Buspirone HCl (Buspar) 10 mg BID PO Last administered on 01/29/19 10:51; Admin Dose 10 MG; Start 01/16/19 at 12:30 Acetaminophen/ Hydrocodone Bitart ([place] (10/325)) 2 tab Q4H PRN PO MODERATE PAIN LEVEL 4-6 Last administered on 01/29/19 13:45; Admin Dose 2 TAB; Start 01/20/19 at 18:30 Amlodipine Besylate (Norvasc) 5 mg BID PO Last administered on 01/29/19 10:46; Admin Dose 5 MG; Start 01/21/19 at 21:00 Hydromorphone HCl (Dilaudid) 2 mg Q4H PRN IV SEVERE PAIN LEVEL 7-10 Last administered on 01/29/19 10:45; Admin Dose 2 MG; Start 01/25/19 at 14:00 Lorazepam (Ativan) 1 mg Q6H PRN IV ANXIETY Last administered on 01/29/19 11:54; Admin Dose 1 MG; Start 01/25/19 at 14:00 Dorzolamide/ Timolol (Cosopt Pf Eye Drops) 1 drop BID LEFT EYE Last administered on 01/26/19 08:59; Admin Dose 1 DROP; Start 01/26/19 at 09:00 Lactulose (Enulose) 30 gm BID PO Last administered on 01/29/19 10:50; Admin Dose 30 GM; Start 01/26/19 at 09:00 Simethicone (Mylicon) 80 mg Q6 PRN PO bloating; Start 01/26/19 at 07:00 Eye Lubricant (Artificial Tears Oph) 2 drop Q6H PRN BOTH EYES DRY EYES Last administered on 01/28/19 15:23; Admin Dose 2 DROP; Start 01/26/19 at 07:00 Lubiprostone (Amitiza) 24 mcg BID PO Last administered on 01/29/19 10:50; Admin Dose 24 MCG; Start 01/26/19 at 09:00 Polyethylene Glycol (Miralax) 17 gm DAILY PO ; Start 01/27/19 at 09:00 Linezolid (Zyvox) 600 mg BID PO Last administered on 01/29/19 10:51; Admin Dose 600 MG; Start 01/28/19 at 13:30 Citric Acid/ Sodium Citrate (Bicitra) 30 ml TID PO Last administered on 01/29/19 10:50; Admin Dose 30 ML; Start 01/29/19 at 09:00 Metoprolol Succinate (Toprol Xl) 50 mg HS PO ; Start 01/29/19 at 21:00 MELISSA NASH NP Jan 29, 2019 14:57
--- NOTE | 2019-01-29 16:56 | CONS ---
Assessment/Plan Assessment/Plan Assessment/Plan (Daily) Interval hx: No acute events. Constipated. Agrees to colonoscopy 1. Microcytic hypochromic anemia, most probably related to iron deficiency. -anemia work up from previous visit last week noted. NEG FOB -EGD done April 2018 showed duodenal ulcer and gastritis, patient's colonoscopy was negative -hgb stable 2. 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 -US on 01/07 did not ascites 3. Nicotine dependence 4. Congestive heart failure. -EF of 60% 5. Chronic obstructive pulmonary disease. 6. Renal failure. 7. Opioid induced constipation Plan Continue p.o. iron Monitor H&H Consultation Date/Type/Reason Admit Date/Time Jan 11, 2019 at 09:53 Initial Consult Date 01/12/19 Requesting Provider: KOKO MARLOW MD Date/Time of Note DATE: 01/29/19 TIME: 16:55 24 HR Interval Summary Free Text/Dictation No GI bleeding Constitutional: improved Exam/Review of Systems Exam Vitals Vital Signs Date Temp Pulse Resp B/P (MAP) Pulse Ox O2 O2 Flow FiO2 Time Delivery Rate 01/29/19 97.9 79 16 127/65 94 Room Air 14:06 (85) 01/29/19 21 08:09 Intake and Output 01/28/19 01/28/19 01/29/19 1515:00 23:00 07:00 IntakeIntake Total 320 ml 640 ml OutputOutput Total 800 ml BalanceBalance -480 ml 640 ml Constitutional: alert, oriented, well developed Psych: no complaints, nl mood/affect Head: normocephalic, atraumatic Eyes: nl conjunctiva, EOMI, nl lids, nl sclera, PERRL ENMT: nl external ears & nose, nl lips & teeth, nl nasal mucosa & septum Neck: supple, non-tender Respiratory: clear to auscultation, normal air movement Cardiovascular: regular rate and rhythm, nl pulses Gastrointestinal: soft, nl liver, spleen, non-tender Musculoskeletal: nl extremities to inspection, nl gait and stance Extremities: normal pulses Neurological: BUFFER INFLATED PAD II-XII intact, nl mental status, nl speech, nl strength Skin: nl turgor; No rash or lesions Lymph: nl lymph nodes Results Result Diagram: 01/28/1940 01/28/19539 Medications Medication Current Medications IV Flush (NS 3 ml) 3 ml PER PROTOCOL IV ; Start 01/11/19 at 13:00 Ondansetron HCl (Zofran Inj) 4 mg Q6H PRN IV NAUSEA/VOMITING Last administered on 01/28/19 01:43; Admin Dose 4 MG; Start 01/11/19 at 13:00 Acetaminophen (Tylenol Tab) 650 mg Q6H PRN PO .PAIN 1-3 OR TEMP; Start 01/11/19 at 13:00 Albuterol (Proventil 0.083% (Neb)) 2.5 mg Q6 PRN HHN shortness of breath; Start 01/11/19 at 13:00 Metoprolol Succinate (Toprol Xl) 50 mg DAILY PO Last administered on 01/29/19 10:51; Admin Dose 50 MG; Start 01/12/19 at 09:00 Clonidine (Catapres) 0.1 mg Q6H PRN PO systolic BP > 160 Last administered on 01/12/19 21:31; Admin Dose 0.1 MG; Start 01/12/19 at 21:00 Levothyroxine Sodium (Synthroid) 225 mcg DAILY@06 PO Last administered on 01/29/19 06:28; Admin Dose 225 MCG; Start 01/13/19 at 06:00 Allopurinol (Zyloprim) 100 mg DAILY PO Last administered on 01/29/19 10:51; Admin Dose 100 MG; Start 01/13/19 at 09:00 Ascorbic Acid (Vitamin C) 500 mg DAILY PO Last administered on 01/29/19 10:51; Admin Dose 500 MG; Start 01/13/19 at 09:00 Docusate Sodium (Colace) 200 mg QHS PO Last administered on 01/28/19 20:12; Admin Dose 200 MG; Start 01/13/19 at 21:00 Epoetin Ghulam-epbx (RETACRIT(non-esrd)) 10,000 unit Q48H SC Last administered on 01/25/19 18:32; Admin Dose 10,000 UNIT; Start 01/13/19 at 18:00; Status Hold Ferrous Sulfate (Ferrous Sulfate (Ec)) 325 mg DAILY PO Last administered on 01/29/19 10:51; Admin Dose 325 MG; Start 01/13/19 at 09:00 Folic Acid (Folic Acid) 1 mg DAILY PO Last administered on 01/29/19 10:50; Admin Dose 1 MG; Start 01/13/19 at 09:00 Gabapentin (Neurontin) 100 mg TID PO Last administered on 01/29/19 10:51; Admin Dose 100 MG; Start 01/13/19 at 09:00 Lorazepam (Ativan) 1 mg BID PRN PO ANXIETY Last administered on 01/14/19 20:36; Admin Dose 1 MG; Start 01/13/19 at 06:30 Rifaximin (Xifaxan) 550 mg BID PO Last administered on 01/29/19 10:49; Admin Dose 550 MG; Start 01/13/19 at 09:00 Tamsulosin HCl (Flomax) 0.4 mg HS PO Last administered on 01/28/19 20:12; Admin Dose 0.4 MG; Start 01/13/19 at 21:00 Thiamine HCl (Vitamin B1) 100 mg DAILY PO Last administered on 01/29/19 10:46; Admin Dose 100 MG; Start 01/13/19 at 09:00 Arformoterol Tartrate (Brovana (Neb)) 2 ml BID RESP THERAPY INH Last administered on 01/29/19 08:08; Admin Dose 2 ML; Start 01/13/19 at 09:00 Budesonide (Pulmicort (Neb)) 0.5 mg Q12H RESP THERAPY INH Last administered on 01/29/19 08:10; Admin Dose 0.5 MG; Start 01/13/19 at 09:00 Nicotine (Nicoderm 21 Mg/ 24hr) 1 patch DAILY TRANSDERM Last administered on 10:52; Admin Dose 1 PATCH; Start 01/14/19 at 09:00 Famotidine (Pepcid) 20 mg Q12 PO Last administered on 01/29/19 10:46; Admin Dose 20 MG; Start 01/13/19 at 21:00 Furosemide (Lasix) 20 mg DAILY PO Last administered on 01/29/19 10:50; Admin Dose 20 MG; Start 01/16/19 at 09:00 Buspirone HCl (Buspar) 10 mg BID PO Last administered on 01/29/19 10:51; Admin Dose 10 MG; Start 01/16/19 at 12:30 Acetaminophen/ Hydrocodone Bitart ([place] (10/325)) 2 tab Q4H PRN PO MODERATE PAIN LEVEL 4-6 Last administered on 01/29/19 13:45; Admin Dose 2 TAB; Start 01/20/19 at 18:30 Amlodipine Besylate (Norvasc) 5 mg BID PO Last administered on 01/29/19 10:46; Admin Dose 5 MG; Start 01/21/19 at 21:00 Hydromorphone HCl (Dilaudid) 2 mg Q4H PRN IV SEVERE PAIN LEVEL 7-10 Last administered on 01/29/19 15:29; Admin Dose 2 MG; Start 01/25/19 at 14:00 Lorazepam (Ativan) 1 mg Q6H PRN IV ANXIETY Last administered on 01/29/19 11:54; Admin Dose 1 MG; Start 01/25/19 at 14:00 Dorzolamide/ Timolol (Cosopt Pf Eye Drops) 1 drop BID LEFT EYE Last administered on 01/26/19 08:59; Admin Dose 1 DROP; Start 01/26/19 at 09:00 Lactulose (Enulose) 30 gm BID PO Last administered on 01/29/19 10:50; Admin Dose 30 GM; Start 01/26/19 at 09:00 Simethicone (Mylicon) 80 mg Q6 PRN PO bloating; Start 01/26/19 at 07:00 Eye Lubricant (Artificial Tears Oph) 2 drop Q6H PRN BOTH EYES DRY EYES Last administered on 01/28/19 15:23; Admin Dose 2 DROP; Start 01/26/19 at 07:00 Lubiprostone (Amitiza) 24 mcg BID PO Last administered on 01/29/19 10:50; Admin Dose 24 MCG; Start 01/26/19 at 09:00 Polyethylene Glycol (Miralax) 17 gm DAILY PO ; Start 01/27/19 at 09:00 Linezolid (Zyvox) 600 mg BID PO Last administered on 01/29/19 10:51; Admin Dose 600 MG; Start 01/28/19 at 13:30 Citric Acid/ Sodium Citrate (Bicitra) 30 ml TID PO Last administered on 01/29/19 15:29; Admin Dose 30 ML; Start 4/25/19 at 09:00 Metoprolol Succinate (Toprol Xl) 50 mg HS PO ; Start 01/29/19 at 21:00 CHLOÉ TORRE MD Jan 29, 2019 16:56
[2019-01-29 20:00] VITALS: BP 151/67; PULSE 69; RESP 18
[2019-01-29] MEDS: METOPROLOL (XL) 25 MG TAB PO SCH (20:44)
[2019-01-29] MEDS: TAMSULOSIN (SR) 0.4 MG CAP PO SCH (20:45)
[2019-01-29] MEDS: DOCUSATE SODIUM 100 MG CAP PO SCH (20:49)
--- NOTE | 2019-01-29 21:26 | PN ---
Date/Time of Note Date/Time of Note DATE: 01/29/19 TIME: 21:24 Assessment/Plan VTE Prophylaxis Risk score (from Nsg)>0 risk: 3 SCD applied (from Nsg): Yes Lines/Catheters IV Catheter Type (from Nrsg): Peripheral IV Urinary Cath still in place: No Assessment/Plan Assessment/Plan -Shortness of breath, rule out acute coronary syndrome, cardiac enzymes are negative x3. -Acute on chronic diastolic congestive heart failure. Continue Lasix. Dr. Foley is following in cardiology consultation. -COPD exacerbation, continue bronchodilators, steroids, and oxygen supplementation. -Anemia, Dr. Mayes is following in gastroenterology consultation. -Alcoholic liver cirrhosis -Acute kidney injury on chronic kidney disease. Dr. Leung is following in nephrology consultation. -Bilateral lower extremities chronic venous stasis -Left foot plantar ulcer. Dr. Younger is following in podiatry consultation. -Obesity -Nicotine dependence, continue nicotine patch, cessation is strongly advised. -Ongoing alcohol use, cessation is strongly advised. -Poor medical compliance -Chronic pain- geovanny get pain management consult w/Dr Oneil Result Diagram: 01/28/19 0540 01/28/19 0540 Exam/Review of Systems Exam Vitals Vital Signs Date Temp Pulse Resp B/P (MAP) Pulse Ox O2 O2 Flow FiO2 Time Delivery Rate 01/29/19 80 18 95 21 19:20 01/29/19 97.9 127/65 Room Air 14:06 (85) Intake and Output 01/28/19 01/28/19 01/29/19 1414:59 22:59 06:59 IntakeIntake Total 320 ml 640 ml OutputOutput Total 800 ml BalanceBalance -480 ml 640 ml Constitutional: alert, oriented, well developed Psych: nl mood/affect Eyes: EOMI, nl lids, nl sclera ENMT: nl external ears & nose Neck: supple Respiratory: diminished breath sounds Cardiovascular: nl pulses, other Gastrointestinal: soft, non-tender Musculoskeletal: muscle weakness Extremities: edema (trace BLE) Neurological: nl speech Lymph: nontender Medications Medication Current Medications IV Flush (NS 3 ml) 3 ml PER PROTOCOL IV ; Start 01/11/19 at 13:00 Ondansetron HCl (Zofran Inj) 4 mg Q6H PRN IV NAUSEA/VOMITING Last administered on 01/28/19at 01:43; Admin Dose 4 MG; Start 01/11/19 at 13:00 Acetaminophen (Tylenol Tab) 650 mg Q6H PRN PO .PAIN 1-3 OR TEMP; Start 01/11/19 at 13:00 Albuterol (Proventil 0.083% (Neb)) 2.5 mg Q6 PRN HHN shortness of breath; Start 01/11/19 at 13:00 Metoprolol Succinate (Toprol Xl) 50 mg DAILY PO Last administered on 01/29/19 10:51; Admin Dose 50 MG; Start 01/12/19 at 09:00 Clonidine (Catapres) 0.1 mg Q6H PRN PO systolic BP > 160 Last administered on 01/12/19 21:31; Admin Dose 0.1 MG; Start 01/12/19 at 21:00 Levothyroxine Sodium (Synthroid) 225 mcg DAILY@06 PO Last administered on 01/29/19 06:28; Admin Dose 225 MCG; Start 01/13/19 at 06:00 Allopurinol (Zyloprim) 100 mg DAILY PO Last administered on 01/29/19 10:51; Admin Dose 100 MG; Start 01/13/19 at 09:00 Ascorbic Acid (Vitamin C) 500 mg DAILY PO Last administered on 01/29/19 10:51; Admin Dose 500 MG; Start 01/13/19 at 09:00 Docusate Sodium (Colace) 200 mg QHS PO Last administered on 01/28/19 20:12; Admin Dose 200 MG; Start 01/13/19 at 21:00 Epoetin Ghulam-epbx (RETACRIT(non-esrd)) 10,000 unit Q48H SC Last administered on 01/25/19 18:32; Admin Dose 10,000 UNIT; Start 01/13/19 at 18:00; Status Hold Ferrous Sulfate (Ferrous Sulfate (Ec)) 325 mg DAILY PO Last administered on 01/29/19 10:51; Admin Dose 325 MG; Start 01/13/19 at 09:00 Folic Acid (Folic Acid) 1 mg DAILY PO Last administered on 01/29/19 10:50; Admin Dose 1 MG; Start 01/13/19 at 09:00 Gabapentin (Neurontin) 100 mg TID PO Last administered on 01/29/19 20:45; Admin Dose 100 MG; Start 01/13/19 at 09:00 Lorazepam (Ativan) 1 mg BID PRN PO ANXIETY Last administered on 01/14/19 20:36 ; Admin Dose 1 MG; Start 01/13/19 at 06:30 Rifaximin (Xifaxan) 550 mg BID PO Last administered on 01/29/19 20:45; Admin Dose 550 MG; Start 01/13/19 at 09:00 Tamsulosin HCl (Flomax) 0.4 mg HS PO Last administered on 01/29/19 20:45; Admin Dose 0.4 MG; Start 01/13/19 at 21:00 Thiamine HCl (Vitamin B1) 100 mg DAILY PO Last administered on 01/29/19 10:46; Admin Dose 100 MG; Start 01/13/19 at 09:00 Arformoterol Tartrate (Brovana (Neb)) 2 ml BID RESP THERAPY INH Last administered on 01/29/19 19:19; Admin Dose 2 ML; Start 01/13/19 at 09:00 Budesonide (Pulmicort (Neb)) 0.5 mg Q12H RESP THERAPY INH Last administered on 01/29/19 19:20; Admin Dose 0.5 MG; Start 01/13/19 at 09:00 Nicotine (Nicoderm 21 Mg/ 24hr) 1 patch DAILY TRANSDERM Last administered on 01/29/19 10:52; Admin Dose 1 PATCH; Start 01/14/19 at 09:00 Famotidine (Pepcid) 20 mg Q12 PO Last administered on 01/29/19 20:45; Admin D ose 20 MG; Start 01/13/19 at 21:00 Furosemide (Lasix) 20 mg DAILY PO Last administered on 01/29/19 10:50; Admin Dose 20 MG; Start 01/16/19 at 09:00 Buspirone HCl (Buspar) 10 mg BID PO Last administered on 01/29/19 20:45; Admin Dose 10 MG; Start 01/16/19 at 12:30 Acetaminophen/ Hydrocodone Bitart ([place] (10/325)) 2 tab Q4H PRN PO MODERATE PAIN LEVEL 4-6 Last administered on 01/29/19 20:56; Admin Dose 2 TAB; Start 01/20/19 at 18:30 Amlodipine Besylate (Norvasc) 5 mg BID PO Last administered on 01/29/19 20:45; Admin Dose 5 MG; Start 01/21/19 at 21:00 Hydromorphone HCl (Dilaudid) 2 mg Q4H PRN IV SEVERE PAIN LEVEL 7-10 Last administered on 01/29/19 19:37; Admin Dose 2 MG; Start 01/25/19 at 14:00 Lorazepam (Ativan) 1 mg Q6H PRN IV ANXIETY Last administered on 01/29/19 18:13; Admin Dose 1 MG; Start 01/25/19 at 14:00 Dorzolamide/ Timolol (Cosopt Pf Eye Drops) 1 drop BID LEFT EYE Last administered on 01/26/19 08:59; Admin Dose 1 DROP; Start 01/26/19 at 09:00 Lactulose (Enulose) 30 gm BID PO Last administered on 01/29/19 20:43; Admin Dose 30 GM; Start 01/26/19 at 09:00 Simethicone (Mylicon) 80 mg Q6 PRN PO bloating; Start 01/26/19 at 07:00 Eye Lubricant (Artificial Tears Oph) 2 drop Q6H PRN BOTH EYES DRY EYES Last administered on 01/28/19 15:23; Admin Dose 2 DROP; Start 01/26/19 at 07:00 Lubiprostone (Amitiza) 24 mcg BID PO Last administered on 01/29/19 10:50; Admin Dose 24 MCG; Start 01/26/19 at 09:00 Linezolid (Zyvox) 600 mg BID PO Last administered on 01/29/19 20:45; Admin Dose 600 MG; Start 01/28/19 at 13:30 Citric Acid/ Sodium Citrate (Bicitra) 30 ml TID PO Last administered on 01/29/19 20:43; Admin Dose 30 ML; Start 01/29/19 at 09:00 Metoprolol Succinate (Toprol Xl) 50 mg HS PO Last administered on 01/29/19 20:44; Admin Dose 50 MG; Start 01/29/19 at 21:00 Polyethylene Glycol (Miralax) 17 gm DAILY PRN PO CONSTIPATION; Start 01/29/19 at 19:30 GO LAMBERT Jan 29, 2019 21:26
[2019-01-30] MEDS: LORAZEPAM 2 MG INJ IV PRN ×3 (01:14→15:04)
[2019-01-30 02:00] VITALS: BP 141/65; PULSE 71; RESP 19
[2019-01-30] MEDS: HYDROmorphONE 2 MG/ML SYG IV PRN ×5 (03:54→23:47)
[2019-01-30] MEDS: LEVOTHYROXINE 75 MCG TAB PO SCH (05:35)
[2019-01-30] MEDS: HYDROCODONE/APAP (10/325) TAB PO PRN (05:35)
[2019-01-30 07:15] VITALS: BP 148/68; PULSE 66; RESP 16
[2019-01-30] MEDS: BUDESONIDE (NEB) 0.5MG/2ML AMP INH SCH ×2 (08:27→21:06)
[2019-01-30] MEDS: ARFORMOTEROL TARTRATE 15MCG/2 ML AMP INH SCH ×2 (08:27→21:06)
[2019-01-30] MEDS: DORZOLAMIDE/TIMOLOL/PF 0.2 ML DROPERETTE LEFT EYE SCH ×2 (09:00→20:47)
--- NOTE | 2019-01-30 09:01 | CONS ---
Assessment/Plan Assessment/Plan Hospital Course (Demo Recall) 63 yo male Interval hx: No acute events 1. Microcytic hypochromic anemia, most probably related to iron deficiency. -anemia work up from previous visit last week noted. NEG FOB -EGD done April 2018 showed duodenal ulcer and gastritis -hgb stable -s/p colonoscopy 01/28 2. 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 -US on 01/07 did not ascites 3. Nicotine dependence 4. Congestive heart failure. -EF of 60% 5. Chronic obstructive pulmonary disease. 6. Renal failure. 7. Opioid induced constipation PLAN: Monitor HH Continue Amitiza 24 mcg bid and miralax 17 gm qd Pt examined and plan of care discussed with Dr. Casiano Consultation Date/Type/Reason Admit Date/Time Jan 11, 2019 at 09:53 Initial Consult Date 01/11/19 Requesting Provider: KOKO MARLOW MD Date/Time of Note DATE: 01/30/19 TIME: 08:59 Exam/Review of Systems Exam Vitals Vital Signs Date Temp Pulse Resp B/P (MAP) Pulse Ox O2 O2 Flow FiO2 Time Delivery Rate 01/30/19 76 18 96 21 08:29 01/30/19 97.5 148/68 Room Air 07:15 (94) Intake and Output 01/29/19 01/29/19 01/30/19 1414:59 22:59 06:59 IntakeIntake Total 1600 ml 480 ml OutputOutput Total 900 ml BalanceBalance 700 ml 480 ml Constitutional: alert, oriented Psych: depression Head: normocephalic Eyes: PERRL ENMT: mucosa pink and moist Respiratory: clear to auscultation Cardiovascular: regular rate and rhythm Gastrointestinal: soft, non-tender, bowel sounds Extremities: normal pulses Neurological: nl mental status Results Result Diagram: 01/30/19 0637 01/30/19 0637 Results 24hrs Laboratory Tests Test 01/30/19 06:37 White Blood Count 14.9 H Red Blood Count 5.35 Hemoglobin 11.1 L Hematocrit 40.8 L Mean Corpuscular Volume 76.3 L Mean Corpuscular Hemoglobin 20.7 L Mean Corpuscular Hemoglobin Concent 27.2 L Red Cell Distribution Width 22.4 H Platelet Count 263 Mean Platelet Volume Immature Granulocytes % 2.800 H Neutrophils % 58.6 Lymphocytes % 9.6 L Monocytes % 20.9 H Eosinophils % 7.0 Basophils % 1.1 Nucleated Red Blood Cells % 0.1 H Immature Granulocytes # 0.410 H Neutrophils # 8.7 H Lymphocytes # 1.4 Monocytes # 3.1 H Eosinophils # 1.0 H Basophils # 0.2 H Nucleated Red Blood Cells # 0.0 Sodium Level 142 Potassium Level 5.7 H Chloride Level 112 H Carbon Dioxide Level 19 L Anion Gap 11 Blood Urea Nitrogen 40 H Creatinine 1.67 H Est Glomerular Filtrat Rate mL/min 42 L Glucose Level 70 Calcium Level 8.8 Ammonia 21 Medications Medication Current Medications IV Flush (NS 3 ml) 3 ml PER PROTOCOL IV ; Start 01/11/19 at 13:00 Ondansetron HCl (Zofran Inj) 4 mg Q6H PRN IV NAUSEA/VOMITING Last administered on 01/28/19 01:43; Admin Dose 4 MG; Start 01/11/19 at 13:00 Acetaminophen (Tylenol Tab) 650 mg Q6H PRN PO .PAIN 1-3 OR TEMP; Start 01/11/19 at 13:00 Albuterol (Proventil 0.083% (Neb)) 2.5 mg Q6 PRN HHN shortness of breath; Start 01/11/19 at 13:00 Metoprolol Succinate (Toprol Xl) 50 mg DAILY PO Last administered on 01/29/19 10:51; Admin Dose 50 MG; Start 01/12/19 at 09:00 Clonidine (Catapres) 0.1 mg Q6H PRN PO systolic BP > 160 Last administered on 01/12/19 21:31; Admin Dose 0.1 MG; Start 01/12/19 at 21:00 Levothyroxine Sodium (Synthroid) 225 mcg DAILY@06 PO Last administered on 01/30/19 05:35; Admin Dose 225 MCG; Start 01/13/19 at 06:00 Allopurinol (Zyloprim) 100 mg DAILY PO Last administered on 01/29/19 10:51; Admin Dose 100 MG; Start 01/13/19 at 09:00 Ascorbic Acid (Vitamin C) 500 mg DAILY PO Last administered on 01/29/19 10:51; Admin Dose 500 MG; Start 01/13/19 at 09:00 Docusate Sodium (Colace) 200 mg QHS PO Last administered on 01/28/19 20:12; Admin Dose 200 MG; Start 01/13/19 at 21:00 Epoetin Ghulam-epbx (RETACRIT(non-esrd)) 10,000 unit Q48H SC Last administered on 01/25/19 18:32; Admin Dose 10,000 UNIT; Start 01/13/19 at 18:00; Status Hold Ferrous Sulfate (Ferrous Sulfate (Ec)) 325 mg DAILY PO Last administered on 01/29/19 10:51; Admin Dose 325 MG; Start 01/13/19 at 09:00 Folic Acid (Folic Acid) 1 mg DAILY PO Last administered on 01/29/19 10:50; Adm in Dose 1 MG; Start 01/13/19 at 09:00 Gabapentin (Neurontin) 100 mg TID PO Last administered on 01/29/19 20:45; Admin Dose 100 MG; Start 01/13/19 at 09:00 Lorazepam (Ativan) 1 mg BID PRN PO ANXIETY Last administered on 01/14/19 20:36; Admin Dose 1 MG; Start 01/13/19 at 06:30 Rifaximin (Xifaxan) 550 mg BID PO Last administered on 01/29/19 20:45; Admin Dose 550 MG; Start 01/13/19 at 09:00 Tamsulosin HCl (Flomax) 0.4 mg HS PO Last administered on 01/29/19 20:45; Admin Dose 0.4 MG; Start 01/13/19 at 21:00 Thiamine HCl (Vitamin B1) 100 mg DAILY PO Last administered on 01/29/19 10:46; Admin Dose 100 MG; Start 01/13/19 at 09:00 Arformoterol Tartrate (Brovana (Neb)) 2 ml BID RESP THERAPY INH Last administered on 01/30/19 08:27; Admin Dose 2 ML; Start 01/13/19 at 09:00 Budesonide (Pulmicort (Neb)) 0.5 mg Q12H RESP THERAPY INH Last administered on 01/30/19 08:27; Admin Dose 0.5 MG; Start 01/13/19 at 09:00 Nicotine (Nicoderm 21 Mg/ 24hr) 1 patch DAILY TRANSDERM Last administered on 01/29/19 10:52; Admin Dose 1 PATCH; Start 01/14/19 at 09:00 Famotidine (Pepcid) 20 mg Q12 PO Last administered on 01/29/19 20:45; Admin Dose 20 MG; Start 01/13/19 at 21:00 Furosemide (Lasix) 20 mg DAILY PO Last administered on 01/29/19 10:50; Admin Dose 20 MG; Start 01/16/19 at 09:00 Buspirone HCl (Buspar) 10 mg BID PO Last administered on 01/29/19 20:45; Admin Dose 10 MG; Start 01/16/19 at 12:30 Acetaminophen/ Hydrocodone Bitart ([place] (10)) 2 tab Q4H PRN PO MODERATE PAIN LEVEL 4-6 Last administered on 01/30/19 05:35; Admin Dose 2 TAB; Start 01/20/19 at 18:30 Amlodipine Besylate (Norvasc) 5 mg BID PO Last administered on 01/29/19 20:45; Admin Dose 5 MG; Start 01/21/19 at 21:00 Hydromorphone HCl (Dilaudid) 2 mg Q4H PRN IV SEVERE PAIN LEVEL 7-10 Last administered on 01/30/19 03:54; Admin Dose 2 MG; Start 01/25/19 at 14:00 Lorazepam (Ativan) 1 mg Q6H PRN IV ANXIETY Last administered on 01/30/19 01:14; Admin Dose 1 MG; Start 01/25/19 at 14:00 Dorzolamide/ Timolol (Cosopt Pf Eye Drops) 1 drop BID LEFT EYE Last administered on 01/26/19 08:59; Admin Dose 1 DROP; Start 01/26/19 at 09:00 Lactulose (Enulose) 30 gm BID PO Last administered on 01/29/19 20:43; Admin Dose 30 GM; Start 01/26/19 at 09:00 Simethicone (Mylicon) 80 mg Q6 PRN PO bloating; Start 01/26/19 at 07:00 Eye Lubricant (Artificial Tears Oph) 2 drop Q6H PRN BOTH EYES DRY EYES Last administered on 01/28/19 15:23; Admin Dose 2 DROP; Start 01/26/19 at 07:00 Lubiprostone (Amitiza) 24 mcg BID PO Last administered on 01/29/19 10:50; Admin Dose 24 MCG; Start 01/26/19 at 09:00 Linezolid (Zyvox) 600 mg BID PO Last administered on 01/29/19 20:45; Admin Dose 600 MG; Start 01/28/19 at 13:30 Citric Acid/ Sodium Citrate (Bicitra) 30 ml TID PO Last administered on 01/29/19 20:43; Admin Dose 30 ML; Start 01/29/19 at 09:00 Metoprolol Succinate (Toprol Xl) 50 mg HS PO Last administered on 01/29/19 20:44; Admin Dose 50 MG; Start 01/29/19 at 21:00 Polyethylene Glycol (Miralax) 17 gm DAILY PRN PO CONSTIPATION; Start 01/29/19 at 19:30 DEYVI HAN Jan 30, 2019 09:01
[2019-01-30] MEDS: RIFAXIMIN 550 MG TAB PO SCH ×2 (09:09→20:24)
[2019-01-30] MEDS: FOLIC ACID 1 MG TAB PO SCH (09:09)
[2019-01-30] MEDS: ASCORBIC ACID 500 MG TAB PO SCH (09:09)
[2019-01-30] MEDS: CITRIC ACID/NA CITRATE 30 ML CUP PO SCH ×4 (09:09→20:25)
[2019-01-30] MEDS: FERROUS SULFATE (EC) 325 MG TAB PO SCH (09:09)
[2019-01-30] MEDS: NICOTINE (21 MG/24 HR) PATCH TRANSDERM SCH (09:09)
[2019-01-30] MEDS: LACTULOSE 30ML CUP PO SCH ×2 (09:09→20:23)
[2019-01-30] MEDS: LUBIPROSTONE 24 MCG CAP PO SCH ×2 (09:09→20:27)
[2019-01-30] MEDS: ALLOPURINOL 100 MG TAB PO SCH (09:10)
[2019-01-30] MEDS: THIAMINE 100 MG TAB PO SCH (09:10)
[2019-01-30] MEDS: ZYVOX 600 MG TAB PO SCH ×2 (09:10→20:24)
[2019-01-30] MEDS: BUSPIRONE 10 MG TAB PO SCH ×2 (09:10→20:25)
[2019-01-30] MEDS: METOPROLOL (XL) 50 MG TAB PO SCH (09:11)
[2019-01-30] MEDS: FAMOTIDINE 20 MG TAB PO SCH ×2 (09:11→20:25)
[2019-01-30] MEDS: FUROSEMIDE 20 MG TAB PO SCH (09:11)
[2019-01-30] MEDS: GABAPENTIN 100 MG CAP PO SCH ×3 (09:11→20:23)
[2019-01-30] MEDS: AMLODIPINE 5 MG TAB PO SCH ×2 (09:12→20:25)
--- NOTE | 2019-01-30 13:30 | CONS ---
Assessment/Plan Assessment/Plan Assessment/Plan (Daily) 1. acute on chronic renal failure due to Type II hepatorenal syndrome 2. SIRS 3. anemia of CKD 5. Decompensated Liver cirrhosis with Symptomatic ascites 6. H/O HTN 7. h/o Liver cirrhosis with ascites 8. H/o Diastolic CHF 9. Bilateral LE chronic venous stasis 10.H/o BPH on Flomax 11. Acute hyperkalemia Plan: s/p IV abx Ertapenam, renally dose all abx , monitor electrolytes and replace as needed, K 5.7. BUN/Cr 40/1.67- kayexalate 30 gram PO x 1 dose now, on Bicitra 30ml PO TID Continue Lasix to 20mg po daily, , , Toprol Xl 50mg/25mg , amlodipine 5 mg po BID -EGD done April 2018 showed duodenal ulcer and gastritis -s/p colonoscopy 01/28/19 Flomax 0.4mg po daily for BPH will follow up Consultation Date/Type/Reason Admit Date/Time Jan 11, 2019 at 09:53 Initial Consult Date 01/11/19 Type of Consult NEPHROLOGY Requesting Provider: KOKO MARLOW MD Date/Time of Note DATE: 01/30/19 TIME: 13:29 24 HR Interval Summary Free Text/Dictation K 5.7. BUN/Cr 40/1.67, BP stable, afebrile, Exam/Review of Systems Exam Vitals Vital Signs Date Temp Pulse Resp B/P (MAP) Pulse Ox O2 O2 Flow FiO2 Time Delivery Rate 01/30/19 76 18 96 21 08:29 01/30/19 97.5 148/68 Room Air 07:15 (94) Intake and Output 01/29/19 01/29/19 01/30/19 1515:00 23:00 07:00 IntakeIntake Total 1600 ml 480 ml OutputOutput Total 900 ml BalanceBalance 700 ml 480 ml Exam Constitutional: alert, well developed, obese Respiratory: diminished breath sounds (at bases bilaterally) Cardiovascular: nl pulses, other (s1s2) Gastrointestinal: soft, non-tender Musculoskeletal: muscle weakness Extremities: normal pulses Neurological: nl speech, other (alert/reponsie) Lymph: nontende Results Result Diagram: 01/30/19 0637 01/30/1937 Results 24hrs Laboratory Tests Test 01/30/19 06:37 White Blood Count 14.9 H Red Blood Count 5.35 Hemoglobin 11.1 L Hematocrit 40.8 L Mean Corpuscular Volume 76.3 L Mean Corpuscular Hemoglobin 20.7 L Mean Corpuscular Hemoglobin Concent 27.2 L Red Cell Distribution Width 22.4 H Platelet Count 263 Mean Platelet Volume Immature Granulocytes % 2.800 H Neutrophils % 58.6 Lymphocytes % 9.6 L Monocytes % 20.9 H Eosinophils % 7.0 Basophils % 1.1 Nucleated Red Blood Cells % 0.1 H Immature Granulocytes # 0.410 H Neutrophils # 8.7 H Lymphocytes # 1.4 Monocytes # 3.1 H Eosinophils # 1.0 H Basophils # 0.2 H Nucleated Red Blood Cells # 0.0 Sodium Level 142 Potassium Level 5.7 H Chloride Level 112 H Carbon Dioxide Level 19 L Anion Gap 11 Blood Urea Nitrogen 40 H Creatinine 1.67 H Est Glomerular Filtrat Rate mL/min 42 L Glucose Level 70 Calcium Level 8.8 Ammonia 21 Medications Medication Current Medications IV Flush (NS 3 ml) 3 ml PER PROTOCOL IV ; Start 01/11/19 at 13:00 Ondansetron HCl (Zofran Inj) 4 mg Q6H PRN IV NAUSEA/VOMITING Last administered on 01/28/19at 01:43; Admin Dose 4 MG; Start 01/11/19 at 13:00 Acetaminophen (Tylenol Tab) 650 mg Q6H PRN PO .PAIN 1-3 OR TEMP; Start 01/11/19 at 13:00 Albuterol (Proventil 0.083% (Neb)) 2.5 mg Q6 PRN HHN shortness of breath; Start 01/11/19 at 13:00 Metoprolol Succinate (Toprol Xl) 50 mg DAILY PO Last administered on 01/30/19at 09:11; Admin Dose 50 MG; Start 01/12/19 at 09:00 Clonidine (Catapres) 0.1 mg Q6H PRN PO systolic BP > 160 Last administered on 01/12/19at 21:31; Admin Dose 0.1 MG; Start 01/12/19 at 21:00 Levothyroxine Sodium (Synthroid) 225 mcg DAILY@06 PO Last administered on 01/30/19at 05:35; Admin Dose 225 MCG; Start 01/13/19 at 06:00 Allopurinol (Zyloprim) 100 mg DAILY PO Last administered on 01/30/19 09:10; Admin Dose 100 MG; Start 01/13/19 at 09:00 Ascorbic Acid (Vitamin C) 500 mg DAILY PO Last administered on 01/30/19 09:09; Admin Dose 500 MG; Start 01/13/19 at 09:00 Docusate Sodium (Colace) 200 mg QHS PO Last administered on 01/28/19 20:12; Admin Dose 200 MG; Start 01/13/19 at 21:00 Epoetin Ghulam-epbx (RETACRIT(non-esrd)) 10,000 unit Q48H SC Last administered on 01/25/19 18:32; Admin Dose 10,000 UNIT; Start 01/13/19 at 18:00; Status Hold Ferrous Sulfate (Ferrous Sulfate (Ec)) 325 mg DAILY PO Last administered on 01/30/19 09:09; Admin Dose 325 MG; Start 01/13/19 at 09:00 Folic Acid (Folic Acid) 1 mg DAILY PO Last administered on 01/30/19 09:09; Admin Dose 1 MG; Start 01/13/19 at 09:00 Gabapentin (Neurontin) 100 mg TID PO Last administered on 01/30/19 09:11; Admin Dose 100 MG; Start 01/13/19 at 09:00 Lorazepam (Ativan) 1 mg BID PRN PO ANXIETY Last administered on 01/14/19 20:36; Admin Dose 1 MG; Start 01/13/19 at 06:30 Rifaximin (Xifaxan) 550 mg BID PO Last administered on 01/30/19 09:09; Admin D ose 550 MG; Start 01/13/19 at 09:00 Tamsulosin HCl (Flomax) 0.4 mg HS PO Last administered on 01/29/19 20:45; Admin Dose 0.4 MG; Start 01/13/19 at 21:00 Thiamine HCl (Vitamin B1) 100 mg DAILY PO Last administered on 01/30/19 09:10; Admin Dose 100 MG; Start 01/13/19 at 09:00 Arformoterol Tartrate (Brovana (Neb)) 2 ml BID RESP THERAPY INH Last administered on 01/30/19 08:27; Admin Dose 2 ML; Start 01/13/19 at 09:00 Budesonide (Pulmicort (Neb)) 0.5 mg Q12H RESP THERAPY INH Last administered on 01/30/19 08:27; Admin Dose 0.5 MG; Start 01/13/19 at 09:00 Nicotine (Nicoderm 21 Mg/ 24hr) 1 patch DAILY TRANSDERM Last administered on 01/30/19 09:09; Admin Dose 1 PATCH; Start 01/14/19 at 09:00 Famotidine (Pepcid) 20 mg Q12 PO Last administered on 01/30/19 09:11; Admin Dose 20 MG; Start 01/13/19 at 21:00 Furosemide (Lasix) 20 mg DAILY PO Last administered on 01/30/19 09:11; Admin Dose 20 MG; Start 01/16/19 at 09:00 Buspirone HCl (Buspar) 10 mg BID PO Last administered on 01/30/19 09:10; Admin Dose 10 MG; Start 01/16/19 at 12:30 Acetaminophen/ Hydrocodone Bitart ([place] (10/325)) 2 tab Q4H PRN PO MODERATE PAIN LEVEL 4-6 Last administered on 01/30/19 05:35; Admin Dose 2 TAB; Start 01/20/19 at 18:30 Amlodipine Besylate (Norvasc) 5 mg BID PO Last administered on 01/30/19 09:12; Admin Dose 5 MG; Start 01/21/19 at 21:00 Hydromorphone HCl (Dilaudid) 2 mg Q4H PRN IV SEVERE PAIN LEVEL 7-10 Last administered on 01/30/19 13:25; Admin Dose 2 MG; Start 01/25/19 at 14:00 Lorazepam (Ativan) 1 mg Q6H PRN IV ANXIETY Last administered on 01/30/19 10:16; Admin Dose 1 MG; Start 01/25/19 at 14:00 Dorzolamide/ Timolol (Cosopt Pf Eye Drops) 1 drop BID LEFT EYE Last administered on 01/26/19 08:59; Admin Dose 1 DROP; Start 01/26/19 at 09:00 Lactulose (Enulose) 30 gm BID PO Last administered on 01/30/19 09:09; Admin Dose 30 GM; Start 01/26/19 at 09:00 Simethicone (Mylicon) 80 mg Q6 PRN PO bloating; Start 01/26/19 at 07:00 Eye Lubricant (Artificial Tears Oph) 2 drop Q6H PRN BOTH EYES DRY EYES Last administered on 01/28/19at 15:23; Admin Dose 2 DROP; Start 01/26/19 at 07:00 Lubiprostone (Amitiza) 24 mcg BID PO Last administered on 01/30/19 09:09; Admin Dose 24 MCG; Start 01/26/19 at 09:00 Linezolid (Zyvox) 600 mg BID PO Last administered on 01/30/19 09:10; Admin Dose 600 MG; Start 01/28/19 at 13:30 Citric Acid/ Sodium Citrate (Bicitra) 30 ml TID PO Last administered on 01/30/19 13:25; Admin Dose 30 ML; Start 01/29/19 at 09:00 Metoprolol Succinate (Toprol Xl) 50 mg HS PO Last administered on 01/29/19at 20:44; Admin Dose 50 MG; Start 01/29/19 at 21:00 Polyethylene Glycol (Miralax) 17 gm DAILY PRN PO CONSTIPATION; Start 01/29/19 at 19:30 ELADIO DELGADO MD Jan 30, 2019 13:30
[2019-01-30] MEDS ORDERED: SODIUM POLYSTYRENE 15 GM KIT (POWDER + SORBITOL) PO ONE (14:00)
[2019-01-30 14:23] VITALS: BP 142/64; PULSE 71; RESP 16
--- NOTE | 2019-01-30 14:44 | CONS ---
Assessment/Plan Assessment/Plan Hospital Course (Demo Recall) No acute changes, alert, wants to go home, no fevers Antimicrobials: Zyvox Physical examination: This is a wasted well-developed chronically ill-appearing elderly man who is in no distress. Head atraumatic normocephalic sclera nonicteric. Neck is supple chest rise symmetrical breath sounds diminished bases. Heart: S1-S2. Abdomen soft bowel sounds present. Extremities without BLE edema, mild erythema, no cyanosis. Assessment: 1. Systemic inflammatory response syndrome with ongoing leukocytosis, clinically stable 2. S/p COPD exacerbation 3. Alcohol abuse 4. Bilateral lower extremities acute on chronic cellulitis/chronic venous stasis 5. Cirrhosis with recurrent ascites 6. Chronic kidney disease 7. CHF 8. Noncompliance Plan: Stable, continue on Zyvox for 7 days Consultation Date/Type/Reason Admit Date/Time Jan 11, 2019 at 09:53 Initial Consult Date Type of Consult id Requesting Provider: KOKO MARLOW MD Date/Time of Note DATE: 01/30/19 TIME: 14:43 Exam/Review of Systems Exam Vitals Vital Signs Date Temp Pulse Resp B/P (MAP) Pulse Ox O2 O2 Flow FiO2 Time Delivery Rate 01/30/19 97.4 71 16 142/64 95 14:23 (90) 01/30/19 21 08:29 01/30/19 Room Air 07:15 Intake and Output 01/29/19 01/29/19 01/30/19 1515:00 23:00 07:00 IntakeIntake Total 1600 ml 480 ml OutputOutput Total 900 ml BalanceBalance 700 ml 480 ml Results Result Diagram: 01/30/19 0637 01/30/19 0637 Results 24hrs Laboratory Tests Test 01/30/19 06:37 White Blood Count 14.9 H Red Blood Count 5.35 Hemoglobin 11.1 L Hematocrit 40.8 L Mean Corpuscular Volume 76.3 L Mean Corpuscular Hemoglobin 20.7 L Mean Corpuscular Hemoglobin Concent 27.2 L Red Cell Distribution Width 22.4 H Platelet Count 263 Mean Platelet Volume Immature Granulocytes % 2.800 H Neutrophils % 58.6 Lymphocytes % 9.6 L Monocytes % 20.9 H Eosinophils % 7.0 Basophils % 1.1 Nucleated Red Blood Cells % 0.1 H Immature Granulocytes # 0.410 H Neutrophils # 8.7 H Lymphocytes # 1.4 Monocytes # 3.1 H Eosinophils # 1.0 H Basophils # 0.2 H Nucleated Red Blood Cells # 0.0 Sodium Level 142 Potassium Level 5.7 H Chloride Level 112 H Carbon Dioxide Level 19 L Anion Gap 11 Blood Urea Nitrogen 40 H Creatinine 1.67 H Est Glomerular Filtrat Rate mL/min 42 L Glucose Level 70 Calcium Level 8.8 Ammonia 21 Medications Medication Current Medications IV Flush (NS 3 ml) 3 ml PER PROTOCOL IV ; Start 01/11/19 at 13:00 Ondansetron HCl (Zofran Inj) 4 mg Q6H PRN IV NAUSEA/VOMITING Last administered on 01/28/19 01:43; Admin Dose 4 MG; Start 01/11/19 at 13:00 Acetaminophen (Tylenol Tab) 650 mg Q6H PRN PO .PAIN 1-3 OR TEMP; Start 01/11/19 at 13:00 Albuterol (Proventil 0.083% (Neb)) 2.5 mg Q6 PRN HHN shortness of breath; Start 01/11/19 at 13:00 Metoprolol Succinate (Toprol Xl) 50 mg DAILY PO Last administered on 01/30/19 09:11; Admin Dose 50 MG; Start 01/12/19 at 09:00 Clonidine (Catapres) 0.1 mg Q6H PRN PO systolic BP > 160 Last administered on 01/12/19 21:31; Admin Dose 0.1 MG; Start 01/12/19 at 21:00 Levothyroxine Sodium (Synthroid) 225 mcg DAILY@06 PO Last administered on 01/30/19 05:35; Admin Dose 225 MCG; Start 01/13/19 at 06:00 Allopurinol (Zyloprim) 100 mg DAILY PO Last administered on 01/30/19 09:10; Admin Dose 100 MG; Start 01/13/19 at 09:00 Ascorbic Acid (Vitamin C) 500 mg DAILY PO Last administered on 01/30/19 09:09; Admin Dose 500 MG; Start 01/13/19 at 09:00 Docusate Sodium (Colace) 200 mg QHS PO Last administered on 01/28/19 20:12; Admin Dose 200 MG; Start 01/13/19 at 21:00 Epoetin Ghulam-epbx (RETACRIT(non-esrd)) 10,000 unit Q48H SC Last administered on 01/25/19 18:32; Admin Dose 10,000 UNIT; Start 01/13/19 at 18:00; Status Hold Ferrous Sulfate (Ferrous Sulfate (Ec)) 325 mg DAILY PO Last administered on 01/30/19 09:09; Admin Dose 325 MG; Start 01/13/19 at 09:00 Folic Acid (Folic Acid) 1 mg DAILY PO Last administered on 01/30/19 09:09; Admin Dose 1 MG; Start 01/13/19 at 09:00 Gabapentin (Neurontin) 100 mg TID PO Last administered on 01/30/19 09:11; Admin Dose 100 MG; Start 01/13/19 at 09:00 Lorazepam (Ativan) 1 mg BID PRN PO ANXIETY Last administered on 01/14/19 20:36; Admin Dose 1 MG; Start 01/13/19 at 06:30 Rifaximin (Xifaxan) 550 mg BID PO Last administered on 01/30/19 09:09; Admin Dose 550 MG; Start 01/13/19 at 09:00 Tamsulosin HCl (Flomax) 0.4 mg HS PO Last administered on 01/29/19 20:45; Admin Dose 0.4 MG; Start 01/13/19 at 21:00 Thiamine HCl (Vitamin B1) 100 mg DAILY PO Last administered on 01/30/19 09:10; Admin Dose 100 MG; Start 01/13/19 at 09:00 Arformoterol Tartrate (Brovana (Neb)) 2 ml BID RESP THERAPY INH Last administered on 01/30/19 08:27; Admin Dose 2 ML; Start 01/13/19 at 09:00 Budesonide (Pulmicort (Neb)) 0.5 mg Q12H RESP THERAPY INH Last administered on 01/30/19 08:27; Admin Dose 0.5 MG; Start 01/13/19 at 09:00 Nicotine (Nicoderm 21 Mg/ 24hr) 1 patch DAILY TRANSDERM Last administered on 01/30/19 09:09; Admin Dose 1 PATCH; Start 01/14/19 at 09:00 Famotidine (Pepcid) 20 mg Q12 PO Last administered on 01/30/19 09:11; Admin Dose 20 MG; Start 01/13/19 at 21:00 Furosemide (Lasix) 20 mg DAILY PO Last administered on 01/30/19 09:11; Admin Dose 20 MG; Start 01/16/19 at 09:00 Buspirone HCl (Buspar) 10 mg BID PO Last administered on 01/30/19 09:10; Admin Dose 10 MG; Start 01/16/19 at 12:30 Acetaminophen/ Hydrocodone Bitart ([place] (10/325)) 2 tab Q4H PRN PO MODERATE PAIN LEVEL 4-6 Last administered on 01/30/19 05:35; Admin Dose 2 TAB; Start 01/20/19 at 18:30 Amlodipine Besylate (Norvasc) 5 mg BID PO Last administered on 01/30/19 09:12; Admin Dose 5 MG; Start 01/21/19 at 21:00 Hydromorphone HCl (Dilaudid) 2 mg Q4H PRN IV SEVERE PAIN LEVEL 7-10 Last administered on 01/30/19 13:25; Admin Dose 2 MG; Start 01/25/19 at 14:00 Lorazepam (Ativan) 1 mg Q6H PRN IV ANXIETY Last administered on 01/30/19 10:16; Admin Dose 1 MG; Start 01/25/19 at 14:00 Dorzolamide/ Timolol (Cosopt Pf Eye Drops) 1 drop BID LEFT EYE Last administered on 01/26/19 08:59; Admin Dose 1 DROP; Start 01/26/19 at 09:00 Lactulose (Enulose) 30 gm BID PO Last administered on 01/30/19 09:09; Admin Dose 30 GM; Start 01/26/19 at 09:00 Simethicone (Mylicon) 80 mg Q6 PRN PO bloating; Start 01/26/19 at 07:00 Eye Lubricant (Artificial Tears Oph) 2 drop Q6H PRN BOTH EYES DRY EYES Last administered on 01/28/19 15:23; Admin Dose 2 DROP; Start 01/26/19 at 07:00 Lubiprostone (Amitiza) 24 mcg BID PO Last administered on 01/30/19 09:09; Admin Dose 24 MCG; Start 01/26/19 at 09:00 Linezolid (Zyvox) 600 mg BID PO Last administered on 01/30/19at 09:10; Admin Dose 600 MG; Start 01/28/19 at 13:30 Citric Acid/ Sodium Citrate (Bicitra) 30 ml TID PO Last administered on 01/30/19at 09:09; Admin Dose 30 ML; Start 01/29/19 at 09:00 Metoprolol Succinate (Toprol Xl) 50 mg HS PO Last administered on 01/29/19at 20:44; Admin Dose 50 MG; Start 01/29/19 at 21:00 Polyethylene Glycol (Miralax) 17 gm DAILY PRN PO CONSTIPATION; Start 01/29/19 at 19:30 MELISSA NASH NP Jan 30, 2019 14:44
--- NOTE | 2019-01-30 14:54 | CONS ---
Assessment/Plan Assessment/Plan Hospital Course (Demo Recall) IMPRESSION: 1. Congestive heart failure exacerbation, diastolic, acute on chronic. 2. Hypertension-reasonable on current regimen 3. Shortness of breath secondary to congestive heart failure exacerbation, diastolic, acute on chronic. 4. Chronic renal failure. 5. Cirrhosis. 6. Ascites, recurrent. 7. Hypothyroidism. 8. History of ETOH abuse. 9. Anemia s/p endoscopy. ? results 10.leukocytosis REcc: -ON med-surg -serial ecg's -Contineu lasix and follow volume status closely and ascites -aldactone d/c'd secondary to elevated K -Continue toprol and CCB at current doses and follow BP clsoely -Continue lactulose -pain control -Continue abx's and f/u cx data -ID following Consultation Date/Type/Reason Admit Date/Time Jan 11, 2019 at 09:53 Initial Consult Date 01/12/19 Type of Consult Cardiology Reason for Consultation CHF Requesting Provider: KOKO MARLOW MD Date/Time of Note DATE: 01/30/19 TIME: 14:45 Exam/Review of Systems Vital Signs Vitals Vital Signs Date Temp Pulse Resp B/P (MAP) Pulse Ox O2 O2 Flow FiO2 Time Delivery Rate 01/30/19 97.4 71 16 142/64 95 14:23 (90) 01/30/19 21 08:29 01/30/19 Room Air 07:15 Intake and Output 01/29/19 01/29/19 01/30/19 1515:00 23:00 07:00 IntakeIntake Total 1600 ml 480 ml OutputOutput Total 900 ml BalanceBalance 700 ml 480 ml Exam Exam Review of Systems: CONSTITUTIONAL: No fevers, chills. PULMONARY: No sob CARDIOVASCULAR: No chest pain/palpitations GASTROINTESTINAL: No nausea/vomiting. GENITOURINARY: No hematuria/dysuria. MUSCULOSKELETAL: No myagias/arthalgias. PSYCHIATRIC: The patient denies depression. NEUROLOGIC: lethargic Constitutional: other (sleeping) Psych: no complaints Head: normocephalic ENMT: mucosa pink and moist Neck: supple, jvd (9 cm water) Respiratory: diminished breath sounds (at bases/B) Cardiovascular: regular rate and rhythm Gastrointestinal: soft, non-tender Musculoskeletal: muscle tone (normal) Extremities: edema (trace/B with chronic venous stasis changes bilateral) Neurological: other (No focal deficts) Labs Result Diagram: 01/30/19 0637 01/30/19 0637 Results 24hrs Laboratory Tests Test 01/30/19 06:37 White Blood Count 14.9 H Red Blood Count 5.35 Hemoglobin 11.1 L Hematocrit 40.8 L Mean Corpuscular Volume 76.3 L Mean Corpuscular Hemoglobin 20.7 L Mean Corpuscular Hemoglobin Concent 27.2 L Red Cell Distribution Width 22.4 H Platelet Count 263 Mean Platelet Volume Immature Granulocytes % 2.800 H Neutrophils % 58.6 Lymphocytes % 9.6 L Monocytes % 20.9 H Eosinophils % 7.0 Basophils % 1.1 Nucleated Red Blood Cells % 0.1 H Immature Granulocytes # 0.410 H Neutrophils # 8.7 H Lymphocytes # 1.4 Monocytes # 3.1 H Eosinophils # 1.0 H Basophils # 0.2 H Nucleated Red Blood Cells # 0.0 Sodium Level 142 Potassium Level 5.7 H Chloride Level 112 H Carbon Dioxide Level 19 L Anion Gap 11 Blood Urea Nitrogen 40 H Creatinine 1.67 H Est Glomerular Filtrat Rate mL/min 42 L Glucose Level 70 Calcium Level 8.8 Ammonia 21 Medications Medications Current Medications IV Flush (NS 3 ml) 3 ml PER PROTOCOL IV ; Start 01/11/19 at 13:00 Ondansetron HCl (Zofran Inj) 4 mg Q6H PRN IV NAUSEA/VOMITING Last administered on 01/28/19at 01:43; Admin Dose 4 MG; Start 01/11/19 at 13:00 Acetaminophen (Tylenol Tab) 650 mg Q6H PRN PO .PAIN 1-3 OR TEMP; Start 01/11/19 at 13:00 Albuterol (Proventil 0.083% (Neb)) 2.5 mg Q6 PRN HHN shortness of breath; Start 01/11/19 at 13:00 Metoprolol Succinate (Toprol Xl) 50 mg DAILY PO Last administered on 01/30/19at 09:11; Admin Dose 50 MG; Start 01/12/19 at 09:00 Clonidine (Catapres) 0.1 mg Q6H PRN PO systolic BP > 160 Last administered on 01/12/19at 21:31; Admin Dose 0.1 MG; Start 01/12/19 at 21:00 Levothyroxine Sodium (Synthroid) 225 mcg DAILY@06 PO Last administered on 01/30/19 05:35; Admin Dose 225 MCG; Start 01/13/19 at 06:00 Allopurinol (Zyloprim) 100 mg DAILY PO Last administered on 01/30/19 09:10; Admin Dose 100 MG; Start 01/13/19 at 09:00 Ascorbic Acid (Vitamin C) 500 mg DAILY PO Last administered on 01/30/19 09:09; Admin Dose 500 MG; Start 01/13/19 at 09:00 Docusate Sodium (Colace) 200 mg QHS PO Last administered on 01/28/19 20:12; Admin Dose 200 MG; Start 01/13/19 at 21:00 Epoetin Ghulam-epbx (RETACRIT(non-esrd)) 10,000 unit Q48H SC Last administered on 01/25/19 18:32; Admin Dose 10,000 UNIT; Start 01/13/19 at 18:00; Status Hold Ferrous Sulfate (Ferrous Sulfate (Ec)) 325 mg DAILY PO Last administered on 01/30/19 09:09; Admin Dose 325 MG; Start 01/13/19 at 09:00 Folic Acid (Folic Acid) 1 mg DAILY PO Last administered on 01/30/19 09:09; Admin Dose 1 MG; Start 01/13/19 at 09:00 Gabapentin (Neurontin) 100 mg TID PO Last administered on 01/30/19 09:11; Admin Dose 100 MG; Start 01/13/19 at 09:00 Lorazepam (Ativan) 1 mg BID PRN PO ANXIETY Last administered on 01/14/19 20:36; Admin Dose 1 MG; Start 01/13/19 at 06:30 Rifaximin (Xifaxan) 550 mg BID PO Last administered on 01/30/19 09:09; Admin Dose 550 MG; Start 01/13/19 at 09:00 Tamsulosin HCl (Flomax) 0.4 mg HS PO Last administered on 01/29/19 20:45; Admin Dose 0.4 MG; Start 01/13/19 at 21:00 Thiamine HCl (Vitamin B1) 100 mg DAILY PO Last administered on 01/30/19 09:10; Admin Dose 100 MG; Start 01/13/19 at 09:00 Arformoterol Tartrate (Brovana (Neb)) 2 ml BID RESP THERAPY INH Last administered on 01/30/19 08:27; Admin Dose 2 ML; Start 01/13/19 at 09:00 Budesonide (Pulmicort (Neb)) 0.5 mg Q12H RESP THERAPY INH Last administered on 01/30/19 08:27; Admin Dose 0.5 MG; Start 01/13/19 at 09:00 Nicotine (Nicoderm 21 Mg/ 24hr) 1 patch DAILY TRANSDERM Last administered on 01/30/19 09:09; Admin Dose 1 PATCH; Start 01/14/19 at 09:00 Famotidine (Pepcid) 20 mg Q12 PO Last administered on 01/30/19 09:11; Admin Dose 20 MG; Start 01/13/19 at 21:00 Furosemide (Lasix) 20 mg DAILY PO Last administered on 01/30/19 09:11; Admin Dose 20 MG; Start 01/16/19 at 09:00 Buspirone HCl (Buspar) 10 mg BID PO Last administered on 01/30/19 09:10; Admin Dose 10 MG; Start 01/16/19 at 12:30 Acetaminophen/ Hydrocodone Bitart ([place] (10/325)) 2 tab Q4H PRN PO MODERATE PAIN LEVEL 4-6 Last administered on 01/30/19 05:35; Admin Dose 2 TAB; Start 01/20/19 at 18:30 Amlodipine Besylate (Norvasc) 5 mg BID PO Last administered on 01/30/19 09:12; Admin Dose 5 MG; Start 01/21/19 at 21:00 Hydromorphone HCl (Dilaudid) 2 mg Q4H PRN IV SEVERE PAIN LEVEL 7-10 Last administered on 01/30/19 13:25; Admin Dose 2 MG; Start 01/25/19 at 14:00 Lorazepam (Ativan) 1 mg Q6H PRN IV ANXIETY Last administered on 01/30/19 10:16; Admin Dose 1 MG; Start 01/25/19 at 14:00 Dorzolamide/ Timolol (Cosopt Pf Eye Drops) 1 drop BID LEFT EYE Last administered on 01/26/19 08:59; Admin Dose 1 DROP; Start 01/26/19 at 09:00 Lactulose (Enulose) 30 gm BID PO Last administered on 01/30/19 09:09; Admin Dose 30 GM; Start 01/26/19 at 09:00 Simethicone (Mylicon) 80 mg Q6 PRN PO bloating; Start 01/26/19 at 07:00 Eye Lubricant (Artificial Tears Oph) 2 drop Q6H PRN BOTH EYES DRY EYES Last administered on 01/28/19 15:23; Admin Dose 2 DROP; Start 01/26/19 at 07:00 Lubiprostone (Amitiza) 24 mcg BID PO Last administered on 01/30/19 09:09; Admin Dose 24 MCG; Start 01/26/19 at 09:00 Linezolid (Zyvox) 600 mg BID PO Last administered on 01/30/19 09:10; Admin Dose 600 MG; Start 01/28/19 at 13:30 Citric Acid/ Sodium Citrate (Bicitra) 30 ml TID PO Last administered on 01/30/19 09:09; Admin Dose 30 ML; Start 01/29/19 at 09:00 Metoprolol Succinate (Toprol Xl) 50 mg HS PO Last administered on 01/29/19 20:44; Admin Dose 50 MG; Start 01/29/19 at 21:00 Polyethylene Glycol (Miralax) 17 gm DAILY PRN PO CONSTIPATION; Start 01/29/19 at 19:30 DUSTY CANTU Jan 30, 2019 14:54
--- NOTE | 2019-01-30 17:28 | CONS ---
Assessment/Plan Assessment/Plan Assessment/Plan (Daily) Chronic low back pain secondary to osteoarthritis by history Patient asking for higher doses of opioid pain control medications Opioid dependent Coronary heart disease Hypertension Active smoking history I tried to have a conversation with patient but he is not amenable to changing his current medications simply which is more suitable other than opioids for back pain. Nonsteroidal anti-inflammatory medication contraindicated at this time secondary to renal disease. Will discontinue his Orient start him back on his oxycodone continue with low-dose Dilaudid and low-dose Ativan. Physical the rapy range of motion exercises when cleared by internal medicine. Consultation Date/Type/Reason Admit Date/Time Jan 11, 2019 at 09:53 Date/Time of Note DATE: 01/30/19 TIME: 17:23 Hx of Present Illness This is a 63-year-old male who is a very poor historian, who is also somewhat irritable at this time who I was called to see for pain management. Patient states he has had low back pain for many years and was told the past he had osteoarthritis. States he has pain going down both legs but does not describe a true radiculopathy denies any dangerous warning signs associated with it incontinent of urine or feces pelvic anesthesia recent trauma or rapid loss of motor function. Patient states he is never had back surgery or epidural injections in the past the pain has been chronic and ongoing for many years. At home he takes oxycodone 20 mg every 4 hours as needed for pain. Once again he denies any acceleration of his pain. Patient describes his pain is 7/10 with the use of his oxycodone at home he has 3/10. Pain interferes with his physical functioning and his mood denies nausea vomiting constipation itching itchiness mental cloudiness sweating fatigue or drowsiness. On examination there is no history of purposeful oversedation negative mood changes he does not appear to be intoxicated or unkempt there is no recent or past medical history of major trauma he is asking for higher dose of pain control medications which is why I was consulted. He is not receptive Dilaudid Ativan and Orient. I do get the impression this patient is requesting pain control medication in response to situational stressor of being hospitalized no history of contact with street drug or illicit drug drug addiction. Other comorbid major medical problems including history of chronic diastolic congestive heart failure, COPD, anemia, alcoholic liver disease, left foot plantar ulcer, nicotine dependence, and according to medical records a history of poor medical compliance. Patient states he ambulates primarily with a walker or with his wheelchair and also states that is secondary to fatigue and shortness of breath. Eyes: no complaints ENT: no complaints Respiratory: cough, shortness of breath Cardiovascular: chest pain Gastrointestinal: no complaints Genitourinary: no complaints Neurologic: no complaints Past Medical History Medical History: congestive heart failure, hypertension, hypothyroid, other (COPD, alcoholic liver cirrhosis) Home Meds Reported Medications Thiamine* (Vitamin B-1*) 100 Mg Tablet, 100 MG PO DAILY, TAB 01/11/19 Sodium Bicarbonate* (Sodium Bicarbonate*) 325 Mg Tablet, 325 MG PO TID, TAB 01/11/19 Simethicone* (Mylicon*) 80 Mg Tab, 80 MG PO Q6H, TAB 01/11/19 Albuterol Sulfate (Proair Respiclick) 90 Mcg Aer.pow.ba, 2 PUFFS INHALATION Q4H PRN for SHORTNESS OF BREATH, #1 BOTTLE 01/11/19 Pantoprazole* (Pantoprazole*) 40 Mg Tablet.dr, 40 MG PO AC BREAKFAST, TAB 01/11/19 Oxycodone Hcl* (Oxycontin*) 15 Mg Tab.sr.12h, 15 MG PO Q6H PRN for PAIN, TAB 01/11/19 Oxycodone Hcl* (Oxycontin*) 10 Mg Tab.sr.12h, 10 MG PO Q8H PRN for PAIN, TAB 01/11/19 Allopurinol* (Allopurinol*) 100 Mg Tablet, 100 MG PO DAILY, TAB 01/11/19 Rifaximin* (Xifaxan*) 550 Mg Tablet, 550 MG PO BID, TAB 01/11/19 Ondansetron Hcl* (Zofran*) 4 Mg Tab, 4 MG PO Q4H PRN for NAUSEA AND OR VOMITING, TAB 01/11/19 Metoprolol Tartrate* (Lopressor*) 100 Mg Tablet, 100 MG PO DAILY, #60 TAB HOLD FOR SBP<110 OR HR<60 01/11/19 Levothyroxine Sodium* (Levothyroxine Sodium*) 200 Mcg Tablet, 200 MCG PO BEFORE BREAKFAST, #30 TAB 01/11/19 Levothyroxine Sodium* (Levothyroxine Sodium*) 25 Mcg Tablet, 25 MCG PO BEFORE BREAKFAST, #30 TAB 01/11/19 Ipratropium-Albuterol (Ipratropium-Albuterol) 0.5-3 Mg/3 Ml Ampul.neb, 3 ML INHALATION Q6 PRN for WHEEZING AND SOB, #30 VIAL 01/11/19 Hydrocodone/Acetaminophen (Orient 5-325 Tablet) 1 Each Tablet, 1 EACH PO Q6H PRN for PAIN, TAB 01/11/19 Gabapentin* (Gabapentin*) 100 Mg Capsule, 100 MG PO TID, #90 CAP 01/11/19 Furosemide* (Furosemide*) 40 Mg Tablet, 40 MG PO DAILY, TAB 01/11/19 Folic Acid* (Folic Acid*) 1 Mg Tablet, 1 MG PO DAILY, TAB 01/11/19 Tamsulosin Hcl* (Flomax*) 0.4 Mg Cap.er.24h, 0.4 MG PO HS, CAP 01/11/19 Ferrous Sulfate* (Ferrous Sulfate*) 325 Mg Tabec, 325 MG PO DAILY, TAB 01/11/19 Ertapenem Sodium (Invanz) 1 Gm Vial, 1 GM IM DAILY, VIAL 01/11/19 Epoetin Ghulam (Epogen) 10,000 Units/Ml Soln, 01669 UNITS SC Q TUE,SHARONA,SAT, VIAL 01/11/19 Lactulose* (Lactulose*) 10 Gm/15 Ml Solution, 30 ML PO Q6, ML 01/11/19 Docusate Sodium* (Colace*) 100 Mg Capsule, 200 MG PO QHS, #30 CAP 01/11/19 Dorzolamide-Timolol* (Cosopt*) 2%-0.5% - 10 Ml Soln, 1 DROP BOTH EYES BID, BOTTLE 01/11/19 Budesonide* (Budesonide*) 0.5 Mg/2 Ml Ampul.neb, 0.5 MG INHALATION BID, AMP 01/11/19 Lorazepam* (Lorazepam*) 1 Mg Tablet, 1 MG PO BID PRN for ANXIETY, #30 TAB 01/11/19 Ascorbic Acid (Vitamin C) 500 Mg Tab, 500 MG PO DAILY, TAB 01/11/19 Arformoterol Tartrate (Brovana) 15 Mcg/2 Ml Vial.neb, 15 MCG INHALATION BID, VIAL 01/11/19 Spironolactone* (Aldactone*) 50 Mg Tablet, 50 MG PO DAILY, #30 TAB HOLD FOR SBP<110 01/11/19 Salmeterol Xinaf/Fluticasone* (Advair*) 250-50 Diskus Inhaler, 1 INH INHALATION BID, #1 INHALER 01/11/19 Acetaminophen* (Acetaminophen*) 500 MG Extra Strength Tablet, 500 MG PO Q4H PRN for MILD PAIN LEVEL 1-3, TAB 01/11/19 Medications Current Medications IV Flush (NS 3 ml) 3 ml PER PROTOCOL IV ; Start 01/11/19 at 13:00 Ondansetron HCl (Zofran Inj) 4 mg Q6H PRN IV NAUSEA/VOMITING Last administered on 01/28/19at 01:43; Admin Dose 4 MG; Start 01/11/19 at 13:00 Acetaminophen (Tylenol Tab) 650 mg Q6H PRN PO .PAIN 1-3 OR TEMP; Start 01/11/19 at 13:00 Albuterol (Proventil 0.083% (Neb)) 2.5 mg Q6 PRN HHN shortness of breath; Start 01/11/19 at 13:00 Metoprolol Succinate (Toprol Xl) 50 mg DAILY PO Last administered on 01/30/19at 09:11; Admin Dose 50 MG; Start 01/12/19 at 09:00 Clonidine (Catapres) 0.1 mg Q6H PRN PO systolic BP > 160 Last administered on 01/12/19at 21:31; Admin Dose 0.1 MG; Start 01/12/19 at 21:00 Levothyroxine Sodium (Synthroid) 225 mcg DAILY@06 PO Last administered on 01/30/19at 05:35; Admin Dose 225 MCG; Start 01/13/19 at 06:00 Allopurinol (Zyloprim) 100 mg DAILY PO Last administered on 01/30/19 09:10; Admin Dose 100 MG; Start 01/13/19 at 09:00 Ascorbic Acid (Vitamin C) 500 mg DAILY PO Last administered on 01/30/19at 09:09; Admin Dose 500 MG; Start 01/13/19 at 09:00 Docusate Sodium (Colace) 200 mg QHS PO Last administered on 01/28/19at 20:12; Admin Dose 200 MG; Start 01/13/19 at 21:00 Epoetin Ghulam-epbx (RETACRIT(non-esrd)) 10,000 unit Q48H SC Last administered on 01/25/19 18:32; Admin Dose 10,000 UNIT; Start 01/13/19 at 18:00; Status Hold Ferrous Sulfate (Ferrous Sulfate (Ec)) 325 mg DAILY PO Last administered on 01/30/19 09:09; Admin Dose 325 MG; Start 01/13/19 at 09:00 Folic Acid (Folic Acid) 1 mg DAILY PO Last administered on 01/30/19 09:09; Admin Dose 1 MG; Start 01/13/19 at 09:00 Gabapentin (Neurontin) 100 mg TID PO Last administered on 01/30/19 09:11; Admi n Dose 100 MG; Start 01/13/19 at 09:00 Lorazepam (Ativan) 1 mg BID PRN PO ANXIETY Last administered on 01/14/19 20:36; Admin Dose 1 MG; Start 01/13/19 at 06:30 Rifaximin (Xifaxan) 550 mg BID PO Last administered on 01/30/19 09:09; Admin Dose 550 MG; Start 01/13/19 at 09:00 Tamsulosin HCl (Flomax) 0.4 mg HS PO Last administered on 01/29/19 20:45; Admin Dose 0.4 MG; Start 01/13/19 at 21:00 Thiamine HCl (Vitamin B1) 100 mg DAILY PO Last administered on 01/30/19 09:10; Admin Dose 100 MG; Start 01/13/19 at 09:00 Arformoterol Tartrate (Brovana (Neb)) 2 ml BID RESP THERAPY INH Last administered on 01/30/19 08:27; Admin Dose 2 ML; Start 01/13/19 at 09:00 Budesonide (Pulmicort (Neb)) 0.5 mg Q12H RESP THERAPY INH Last administered on 01/30/19 08:27; Admin Dose 0.5 MG; Start 01/13/19 at 09:00 Nicotine (Nicoderm 21 Mg/ 24hr) 1 patch DAILY TRANSDERM Last administered on 01/30/19 09:09; Admin Dose 1 PATCH; Start 01/14/19 at 09:00 Famotidine (Pepcid) 20 mg Q12 PO Last administered on 01/30/19 09:11; Admin Dose 20 MG; Start 01/13/19 at 21:00 Furosemide (Lasix) 20 mg DAILY PO Last administered on 01/30/19 09:11; Admin Dose 20 MG; Start 01/16/19 at 09:00 Buspirone HCl (Buspar) 10 mg BID PO Last administered on 01/30/19 09:10; Admin Dose 10 MG; Start 01/16/19 at 12:30 Acetaminophen/ Hydrocodone Bitart (Orient (10/325)) 2 tab Q4H PRN PO MODERATE PAIN LEVEL 4-6 Last administered on 01/30/19 05:35; Admin Dose 2 TAB; Start 01/20/19 at 18:30 Amlodipine Besylate (Norvasc) 5 mg BID PO Last administered on 01/30/19 09:12; Admin Dose 5 MG; Start 01/21/19 at 21:00 Hydromorphone HCl (Dilaudid) 2 mg Q4H PRN IV SEVERE PAIN LEVEL 7-10 Last administered on 01/30/19 13:25; Admin Dose 2 MG; Start 01/25/19 at 14:00 Lorazepam (Ativan) 1 mg Q6H PRN IV ANXIETY Last administered on 01/30/19 15:04; Admin Dose 1 MG; Start 01/25/19 at 14:00 Dorzolamide/ Timolol (Cosopt Pf Eye Drops) 1 drop BID LEFT EYE Last administered on 01/26/19 08:59; Admin Dose 1 DROP; Start 01/26/19 at 09:00 Lactulose (Enulose) 30 gm BID PO Last administered on 01/30/19 09:09; Admin Dose 30 GM; Start 01/26/19 at 09:00 Simethicone (Mylicon) 80 mg Q6 PRN PO bloating; Start 01/26/19 at 07:00 Eye Lubricant (Artificial Tears Oph) 2 drop Q6H PRN BOTH EYES DRY EYES Last administered on 01/28/19 15:23; Admin Dose 2 DROP; Start 01/26/19 at 07:00 Lubiprostone (Amitiza) 24 mcg BID PO Last administered on 01/30/19 09:09; Admin Dose 24 MCG; Start 01/26/19 at 09:00 Linezolid (Zyvox) 600 mg BID PO Last administered on 01/30/19at 09:10; Admin Dose 600 MG; Start 01/28/19 at 13:30 Citric Acid/ Sodium Citrate (Bicitra) 30 ml TID PO Last administered on 01/30/19at 09:09; Admin Dose 30 ML; Start 01/29/19 at 09:00 Metoprolol Succinate (Toprol Xl) 50 mg HS PO Last administered on 01/29/19at 20:44; Admin Dose 50 MG; Start 01/29/19 at 21:00 Polyethylene Glycol (Miralax) 17 gm DAILY PRN PO CONSTIPATION; Start 01/29/19 at 19:30 Allergies: Coded Allergies: Penicillins (Unverified Allergy, Unknown, 01/11/19) Past Surgical History Past Surgical Hx: other (s/p I&D of necrotic ulcer left foot in September [address] Younger) Social History Alcohol Use: heavy Smoking Status: Current every day smoker Drug Use: none Exam/Review of Systems Exam Vitals Vital Signs Date Temp Pulse Resp B/P (MAP) Pulse Ox O2 O2 Flow FiO2 Time Delivery Rate 01/30/19 97.4 71 16 142/64 95 14:23 (90) 01/30/19 21 08:29 01/30/19 Room Air 07:15 Intake and Output 01/29/19 01/29/19 01/30/19 1515:00 23:00 07:00 IntakeIntake Total 1600 ml 480 ml OutputOutput Total 900 ml BalanceBalance 700 ml 480 ml Constitutional: alert, oriented, well developed, other (Cantankerous) Psych: anxiety Head: normocephalic, atraumatic Eyes: nl conjunctiva, EOMI, nl lids, nl sclera, PERRL ENMT: No nl external ears & nose, No nl lips & teeth, No nl nasal mucosa & septum, No mucosa pink and moist, No intubated, No tympanic membranes, No other Neck: No supple, No non-tender, No jvd, No bruits, No masses, No thyromegaly, No nuchal rigidity, No other Respiratory: clear to auscultation, normal air movement Neurological: other (Range of motion bilateral lower extremities grossly intact bilateral circumferential brawny edema bilaterally flexion extension internal and external rotation of his ankles mostly intact negative straight leg sign bilaterally intact extensor hallucis tendon bilaterally sensory grossly intact motor finding grossly intact normal range of motion bilateral knees normal range of motion bilateral hips) Results Result Diagram: 01/30/1937 01/30/19 0637 Results 24hrs Laboratory Tests Test 01/30/19 06:37 White Blood Count 14.9 H Red Blood Count 5.35 Hemoglobin 11.1 L Hematocrit 40.8 L Mean Corpuscular Volume 76.3 L Mean Corpuscular Hemoglobin 20.7 L Mean Corpuscular Hemoglobin Concent 27.2 L Red Cell Distribution Width 22.4 H Platelet Count 263 Mean Platelet Volume Immature Granulocytes % 2.800 H Neutrophils % 58.6 Lymphocytes % 9.6 L Monocytes % 20.9 H Eosinophils % 7.0 Basophils % 1.1 Nucleated Red Blood Cells % 0.1 H Immature Granulocytes # 0.410 H Neutrophils # 8.7 H Lymphocytes # 1.4 Monocytes # 3.1 H Eosinophils # 1.0 H Basophils # 0.2 H Nucleated Red Blood Cells # 0.0 Sodium Level 142 Potassium Level 5.7 H Chloride Level 112 H Carbon Dioxide Level 19 L Anion Gap 11 Blood Urea Nitrogen 40 H Creatinine 1.67 H Est Glomerular Filtrat Rate mL/min 42 L Glucose Level 70 Calcium Level 8.8 Ammonia 21 Medications Medication Current Medications IV Flush (NS 3 ml) 3 ml PER PROTOCOL IV ; Start 01/11/19 at 13:00 Ondansetron HCl (Zofran Inj) 4 mg Q6H PRN IV NAUSEA/VOMITING Last administered on 01/28/19at 01:43; Admin Dose 4 MG; Start 01/11/19 at 13:00 Acetaminophen (Tylenol Tab) 650 mg Q6H PRN PO .PAIN 1-3 OR TEMP; Start 01/11/19 at 13:00 Albuterol (Proventil 0.083% (Neb)) 2.5 mg Q6 PRN HHN shortness of breath; Start 01/11/19 at 13:00 Metoprolol Succinate (Toprol Xl) 50 mg DAILY PO Last administered on 01/30/19at 09:11; Admin Dose 50 MG; Start 01/12/19 at 09:00 Clonidine (Catapres) 0.1 mg Q6H PRN PO systolic BP > 160 Last administered on 01/12/19 21:31; Admin Dose 0.1 MG; Start 01/12/19 at 21:00 Levothyroxine Sodium (Synthroid) 225 mcg DAILY@06 PO Last administered on 01/30/19 05:35; Admin Dose 225 MCG; Start 01/13/19 at 06:00 Allopurinol (Zyloprim) 100 mg DAILY PO Last administered on 01/30/19 09:10; Admin Dose 100 MG; Start 01/13/19 at 09:00 Ascorbic Acid (Vitamin C) 500 mg DAILY PO Last administered on 01/30/19 09:09; Admin Dose 500 MG; Start 01/13/19 at 09:00 Docusate Sodium (Colace) 200 mg QHS PO Last administered on 01/28/19 20:12; Admin Dose 200 MG; Start 01/13/19 at 21:00 Epoetin Ghulam-epbx (RETACRIT(non-esrd)) 10,000 unit Q48H SC Last administered on 01/25/19 18:32; Admin Dose 10,000 UNIT; Start 01/13/19 at 18:00; Status Hold Ferrous Sulfate (Ferrous Sulfate (Ec)) 325 mg DAILY PO Last administered on 01/30/19 09:09; Admin Dose 325 MG; Start 01/13/19 at 09:00 Folic Acid (Folic Acid) 1 mg DAILY PO Last administered on 01/30/19 09:09; Admin Dose 1 MG; Start 01/13/19 at 09:00 Gabapentin (Neurontin) 100 mg TID PO Last administered on 01/30/19 09:11; Admin Dose 100 MG; Start 01/13/19 at 09:00 Lorazepam (Ativan) 1 mg BID PRN PO ANXIETY Last administered on 01/14/19 20:36; Admin Dose 1 MG; Start 01/13/19 at 06:30 Rifaximin (Xifaxan) 550 mg BID PO Last administered on 01/30/19 09:09; Admin Dose 550 MG; Start 01/13/19 at 09:00 Tamsulosin HCl (Flomax) 0.4 mg HS PO Last administered on 01/29/19 20:45; Admin Dose 0.4 MG; Start 01/13/19 at 21:00 Thiamine HCl (Vitamin B1) 100 mg DAILY PO Last administered on 01/30/19 09:10; Admin Dose 100 MG; Start 01/13/19 at 09:00 Arformoterol Tartrate (Brovana (Neb)) 2 ml BID RESP THERAPY INH Last administered on 01/30/19 08:27; Admin Dose 2 ML; Start 01/13/19 at 09:00 Budesonide (Pulmicort (Neb)) 0.5 mg Q12H RESP THERAPY INH Last administered on 01/30/19 08:27; Admin Dose 0.5 MG; Start 01/13/19 at 09:00 Nicotine (Nicoderm 21 Mg/ 24hr) 1 patch DAILY TRANSDERM Last administered on 01/30/19 09:09; Admin Dose 1 PATCH; Start 01/14/19 at 09:00 Famotidine (Pepcid) 20 mg Q12 PO Last administered on 01/30/19 09:11; Admin Dose 20 MG; Start 01/13/19 at 21:00 Furosemide (Lasix) 20 mg DAILY PO Last administered on 01/30/19 09:11; Admin Dose 20 MG; Start 01/16/19 at 09:00 Buspirone HCl (Buspar) 10 mg BID PO Last administered on 01/30/19 09:10; Admin Dose 10 MG; Start 01/16/19 at 12:30 Acetaminophen/ Hydrocodone Bitart (Orient (10/325)) 2 tab Q4H PRN PO MODERATE PAIN LEVEL 4-6 Last administered on 01/30/19 05:35; Admin Dose 2 TAB; Start 01/20/19 at 18:30 Amlodipine Besylate (Norvasc) 5 mg BID PO Last administered on 01/30/19 09:12; Admin Dose 5 MG; Start 01/21/19 at 21:00 Hydromorphone HCl (Dilaudid) 2 mg Q4H PRN IV SEVERE PAIN LEVEL 7-10 Last adm inistered on 01/30/19 13:25; Admin Dose 2 MG; Start 01/25/19 at 14:00 Lorazepam (Ativan) 1 mg Q6H PRN IV ANXIETY Last administered on 01/30/19 15:04; Admin Dose 1 MG; Start 01/25/19 at 14:00 Dorzolamide/ Timolol (Cosopt Pf Eye Drops) 1 drop BID LEFT EYE Last administered on 01/26/19 08:59; Admin Dose 1 DROP; Start 01/26/19 at 09:00 Lactulose (Enulose) 30 gm BID PO Last administered on 01/30/19 09:09; Admin Dose 30 GM; Start 01/26/19 at 09:00 Simethicone (Mylicon) 80 mg Q6 PRN PO bloating; Start 01/26/19 at 07:00 Eye Lubricant (Artificial Tears Oph) 2 drop Q6H PRN BOTH EYES DRY EYES Last administered on 01/28/19 15:23; Admin Dose 2 DROP; Start 01/26/19 at 07:00 Lubiprostone (Amitiza) 24 mcg BID PO Last administered on 01/30/19 09:09; Admin Dose 24 MCG; Start 01/26/19 at 09:00 Linezolid (Zyvox) 600 mg BID PO Last administered on 01/30/19 09:10; Admin Dose 600 MG; Start 01/28/19 at 13:30 Citric Acid/ Sodium Citrate (Bicitra) 30 ml TID PO Last administered on 01/30/19 09:09; Admin Dose 30 ML; Start 01/29/19 at 09:00 Metoprolol Succinate (Toprol Xl) 50 mg HS PO Last administered on 01/29/19 20:44; Admin Dose 50 MG; Start 01/29/19 at 21:00 Polyethylene Glycol (Miralax) 17 gm DAILY PRN PO CONSTIPATION; Start 01/29/19 at 19:30 JUSTINE AMADOR Jan 30, 2019 17:28
--- NOTE | 2019-01-30 17:31 | PN ---
Date/Time of Note Date/Time of Note DATE: 01/30/19 TIME: 17:30 Assessment/Plan VTE Prophylaxis Risk score (from Ns)>0 risk: 4 SCD applied (from Nsg): No Lines/Catheters IV Catheter Type (from Nrs): Saline Lock Urinary Cath still in place: No Assessment/Plan Assessment/Plan - Hyperlaemia- Kayexalate x 1 -Shortness of breath, rule out acute coronary syndrome, cardiac enzymes are negative x3. -Acute on chronic diastolic congestive heart failure. Continue Lasix. Dr. Foley is following in cardiology consultation. -COPD exacerbation, continue bronchodilators, steroids, and oxygen supplementation. -Anemia, Dr. Mayes is following in gastroenterology consultation. -Alcoholic liver cirrhosis -Acute kidney injury on chronic kidney disease. Dr. Leung is following in nephrology consultation. -Bilateral lower extremities chronic venous stasis -Left foot plantar ulcer. Dr. Younger is following in podiatry consultation. -Obesity -Nicotine dependence, continue nicotine patch, cessation is strongly advised. -Ongoing alcohol use, cessation is strongly advised. -Poor medical compliance -Chronic pain- [facility] pain management consult w/Dr Oneil Result Diagram: 01/30/19 0637 01/30/19 0637 Results 24hrs Laboratory Tests Test 01/30/19 06:37 White Blood Count 14.9 H Red Blood Count 5.35 Hemoglobin 11.1 L Hematocrit 40.8 L Mean Corpuscular Volume 76.3 L Mean Corpuscular Hemoglobin 20.7 L Mean Corpuscular Hemoglobin Concent 27.2 L Red Cell Distribution Width 22.4 H Platelet Count 263 Mean Platelet Volume Immature Granulocytes % 2.800 H Neutrophils % 58.6 Lymphocytes % 9.6 L Monocytes % 20.9 H Eosinophils % 7.0 Basophils % 1.1 Nucleated Red Blood Cells % 0.1 H Immature Granulocytes # 0.410 H Neutrophils # 8.7 H Lymphocytes # 1.4 Monocytes # 3.1 H Eosinophils # 1.0 H Basophils # 0.2 H Nucleated Red Blood Cells # 0.0 Sodium Level 142 Potassium Level 5.7 H Chloride Level 112 H Carbon Dioxide Level 19 L Anion Gap 11 Blood Urea Nitrogen 40 H Creatinine 1.67 H Est Glomerular Filtrat Rate mL/min 42 L Glucose Level 70 Calcium Level 8.8 Ammonia 21 Exam/Review of Systems Exam Vitals Vital Signs Date Temp Pulse Resp B/P (MAP) Pulse Ox O2 O2 Flow FiO2 Time Delivery Rate 01/30/19 97.4 71 16 142/64 95 14:23 (90) 01/30/19 21 08:29 01/30/19 Room Air 07:15 Intake and Output 01/29/19 01/29/19 01/30/19 1515:00 23:00 07:00 IntakeIntake Total 1600 ml 480 ml OutputOutput Total 900 ml BalanceBalance 700 ml 480 ml Results Results 24hrs Laboratory Tests Test 01/30/19 06:37 White Blood Count 14.9 H Red Blood Count 5.35 Hemoglobin 11.1 L Hematocrit 40.8 L Mean Corpuscular Volume 76.3 L Mean Corpuscular Hemoglobin 20.7 L Mean Corpuscular Hemoglobin Concent 27.2 L Red Cell Distribution Width 22.4 H Platelet Count 263 Mean Platelet Volume Immature Granulocytes % 2.800 H Neutrophils % 58.6 Lymphocytes % 9.6 L Monocytes % 20.9 H Eosinophils % 7.0 Basophils % 1.1 Nucleated Red Blood Cells % 0.1 H Immature Granulocytes # 0.410 H Neutrophils # 8.7 H Lymphocytes # 1.4 Monocytes # 3.1 H Eosinophils # 1.0 H Basophils # 0.2 H Nucleated Red Blood Cells # 0.0 Sodium Level 142 Potassium Level 5.7 H Chloride Level 112 H Carbon Dioxide Level 19 L Anion Gap 11 Blood Urea Nitrogen 40 H Creatinine 1.67 H Est Glomerular Filtrat Rate mL/min 42 L Glucose Level 70 Calcium Level 8.8 Ammonia 21 Medications Medication Current Medications IV Flush (NS 3 ml) 3 ml PER PROTOCOL IV ; Start 01/11/19 at 13:00 Ondansetron HCl (Zofran Inj) 4 mg Q6H PRN IV NAUSEA/VOMITING Last administered on 01/28/19at 01:43; Admin Dose 4 MG; Start 01/11/19 at 13:00 Acetaminophen (Tylenol Tab) 650 mg Q6H PRN PO .PAIN 1-3 OR TEMP; Start 01/11/19 at 13:00 Albuterol (Proventil 0.083% (Neb)) 2.5 mg Q6 PRN HHN shortness of breath; Start 01/11/19 at 13:00 Metoprolol Succinate (Toprol Xl) 50 mg DAILY PO Last administered on 01/30/19 09:11; Admin Dose 50 MG; Start 01/12/19 at 09:00 Clonidine (Catapres) 0.1 mg Q6H PRN PO systolic BP > 160 Last administered on 01/12/19 21:31; Admin Dose 0.1 MG; Start 01/12/19 at 21:00 Levothyroxine Sodium (Synthroid) 225 mcg DAILY@06 PO Last administered on 01/30/19 05:35; Admin Dose 225 MCG; Start 01/13/19 at 06:00 Allopurinol (Zyloprim) 100 mg DAILY PO Last administered on 01/30/19 09:10; Admin Dose 100 MG; Start 01/13/19 at 09:00 Ascorbic Acid (Vitamin C) 500 mg DAILY PO Last administered on 01/30/19 09:09; Admin Dose 500 MG; Start 01/13/19 at 09:00 Docusate Sodium (Colace) 200 mg QHS PO Last administered on 01/28/19 20:12; Admin Dose 200 MG; Start 01/13/19 at 21:00 Epoetin Ghulam-epbx (RETACRIT(non-esrd)) 10,000 unit Q48H SC Last administered on 01/25/19 18:32; Admin Dose 10,000 UNIT; Start 01/13/19 at 18:00; Status Hold Ferrous Sulfate (Ferrous Sulfate (Ec)) 325 mg DAILY PO Last administered on 01/30/19 09:09; Admin Dose 325 MG; Start 01/13/19 at 09:00 Folic Acid (Folic Acid) 1 mg DAILY PO Last administered on 01/30/19 09:09; Admin Dose 1 MG; Start 01/13/19 at 09:00 Gabapentin (Neurontin) 100 mg TID PO Last administered on 01/30/19 09:11; Admin Dose 100 MG; Start 01/13/19 at 09:00 Lorazepam (Ativan) 1 mg BID PRN PO ANXIETY Last administered on 01/14/19 20:36; Admin Dose 1 MG; Start 01/13/19 at 06:30 Rifaximin (Xifaxan) 550 mg BID PO Last administered on 01/30/19 09:09; Admin Dose 550 MG; Start 01/13/19 at 09:00 Tamsulosin HCl (Flomax) 0.4 mg HS PO Last administered on 01/29/19 20:45; Admin Dose 0.4 MG; Start 01/13/19 at 21:00 Thiamine HCl (Vitamin B1) 100 mg DAILY PO Last administered on 01/30/19 09:10; Admin Dose 100 MG; Start 01/13/19 at 09:00 Arformoterol Tartrate (Brovana (Neb)) 2 ml BID RESP THERAPY INH Last administered on 01/30/19 08:27; Admin Dose 2 ML; Start 01/13/19 at 09:00 Budesonide (Pulmicort (Neb)) 0.5 mg Q12H RESP THERAPY INH Last administered on 01/30/19 08:27; Admin Dose 0.5 MG; Start 01/13/19 at 09:00 Nicotine (Nicoderm 21 Mg/ 24hr) 1 patch DAILY TRANSDERM Last administered on 01/30/19 09:09; Admin Dose 1 PATCH; Start 01/14/19 at 09:00 Famotidine (Pepcid) 20 mg Q12 PO Last administered on 01/30/19 09:11; Admin Dose 20 MG; Start 01/13/19 at 21:00 Furosemide (Lasix) 20 mg DAILY PO Last administered on 01/30/19 09:11; Admin Dose 20 MG; Start 01/16/19 at 09:00 Buspirone HCl (Buspar) 10 mg BID PO Last administered on 01/30/19 09:10; Admin Dose 10 MG; Start 01/16/19 at 12:30 Acetaminophen/ Hydrocodone Bitart ([place] (10/325)) 2 tab Q4H PRN PO MODERATE PAIN LEVEL 4-6 Last administered on 01/30/19 05:35; Admin Dose 2 TAB; Start 01/20/19 at 18:30 Amlodipine Besylate (Norvasc) 5 mg BID PO Last administered on 01/30/19 09:12; Admin Dose 5 MG; Start 01/21/19 at 21:00 Hydromorphone HCl (Dilaudid) 2 mg Q4H PRN IV SEVERE PAIN LEVEL 7-10 Last administered on 01/30/19 13:25; Admin Dose 2 MG; Start 01/25/19 at 14:00 Lorazepam (Ativan) 1 mg Q6H PRN IV ANXIETY Last administered on 01/30/19 15:04; Admin Dose 1 MG; Start 01/25/19 at 14:00 Dorzolamide/ Timolol (Cosopt Pf Eye Drops) 1 drop BID LEFT EYE Last administered on 01/26/19 08:59; Admin Dose 1 DROP; Start 01/26/19 at 09:00 Lactulose (Enulose) 30 gm BID PO Last administered on 01/30/19 09:09; Admin Dose 30 GM; Start 01/26/19 at 09:00 Simethicone (Mylicon) 80 mg Q6 PRN PO bloating; Start 01/26/19 at 07:00 Eye Lubricant (Artificial Tears Oph) 2 drop Q6H PRN BOTH EYES DRY EYES Last administered on 01/28/19 15:23; Admin Dose 2 DROP; Start 01/26/19 at 07:00 Lubiprostone (Amitiza) 24 mcg BID PO Last administered on 01/30/19 09:09; Admin Dose 24 MCG; Start 01/26/19 at 09:00 Linezolid (Zyvox) 600 mg BID PO Last administered on 01/30/19 09:10; Admin Dose 600 MG; Start 01/28/19 at 13:30 Citric Acid/ Sodium Citrate (Bicitra) 30 ml TID PO Last administered on 01/30/19 09:09; Admin Dose 30 ML; Start 01/29/19 at 09:00 Metoprolol Succinate (Toprol Xl) 50 mg HS PO Last administered on 01/29/19 20:44; Admin Dose 50 MG; Start 01/29/19 at 21:00 Polyethylene Glycol (Miralax) 17 gm DAILY PRN PO CONSTIPATION; Start 01/29/19 at 19:30 GO LAMBERT Jan 30, 2019 17:31
[2019-01-30 20:00] VITALS: BP 131/65; PULSE 65; RESP 18
[2019-01-30] MEDS: DOCUSATE SODIUM 100 MG CAP PO SCH (20:23)
[2019-01-30] MEDS: TAMSULOSIN (SR) 0.4 MG CAP PO SCH (20:23)
[2019-01-30] MEDS: METOPROLOL (XL) 25 MG TAB PO SCH (20:24)
[2019-01-30] MEDS: oxyCODONE 5 MG TAB PO PRN (20:44)
[2019-01-31] MEDS: LORAZEPAM 2 MG INJ IV PRN ×3 (00:48→20:17)
[2019-01-31 02:00] VITALS: BP 132/61; PULSE 65; RESP 18
[2019-01-31] MEDS: oxyCODONE 5 MG TAB PO PRN ×5 (02:17→22:43)
[2019-01-31] MEDS: HYDROmorphONE 2 MG/ML SYG IV PRN ×5 (04:52→21:20)
[2019-01-31] MEDS: LEVOTHYROXINE 75 MCG TAB PO SCH (06:52)
[2019-01-31 07:20] VITALS: BP 145/75; PULSE 70; RESP 16
[2019-01-31] MEDS: BUDESONIDE (NEB) 0.5MG/2ML AMP INH SCH ×2 (08:00→20:05)
[2019-01-31] MEDS: LUBIPROSTONE 24 MCG CAP PO SCH ×2 (08:11→20:20)
[2019-01-31] MEDS: ZYVOX 600 MG TAB PO SCH ×2 (08:12→20:23)
[2019-01-31] MEDS: FERROUS SULFATE (EC) 325 MG TAB PO SCH (08:12)
[2019-01-31] MEDS: FOLIC ACID 1 MG TAB PO SCH (08:13)
[2019-01-31] MEDS: BUSPIRONE 10 MG TAB PO SCH ×2 (08:13→20:21)
[2019-01-31] MEDS: FAMOTIDINE 20 MG TAB PO SCH ×2 (08:13→20:21)
[2019-01-31] MEDS: THIAMINE 100 MG TAB PO SCH (08:13)
[2019-01-31] MEDS: ASCORBIC ACID 500 MG TAB PO SCH (08:14)
[2019-01-31] MEDS: ALLOPURINOL 100 MG TAB PO SCH (08:14)
[2019-01-31] MEDS: RIFAXIMIN 550 MG TAB PO SCH ×2 (08:15→20:21)
[2019-01-31] MEDS: GABAPENTIN 100 MG CAP PO SCH ×3 (08:16→20:29)
[2019-01-31] MEDS: FUROSEMIDE 20 MG TAB PO SCH (08:16)
[2019-01-31] MEDS: METOPROLOL (XL) 50 MG TAB PO SCH (08:17)
[2019-01-31] MEDS: ARFORMOTEROL TARTRATE 15MCG/2 ML AMP INH SCH ×2 (08:17→20:05)
[2019-01-31] MEDS: AMLODIPINE 5 MG TAB PO SCH ×2 (08:17→20:23)
[2019-01-31] MEDS: CITRIC ACID/NA CITRATE 30 ML CUP PO SCH ×3 (08:18→20:22)
[2019-01-31] MEDS: DORZOLAMIDE/TIMOLOL/PF 0.2 ML DROPERETTE LEFT EYE SCH ×2 (08:18→20:26)
[2019-01-31] MEDS: LACTULOSE 30ML CUP PO SCH ×2 (08:20→20:22)
[2019-01-31] MEDS: NICOTINE (21 MG/24 HR) PATCH TRANSDERM SCH (08:27)
--- NOTE | 2019-01-31 11:14 | CONS ---
Consult Date/Type/Reason Admit Date/Time Jan 11, 2019 at 09:53 Initial Consult Date 01/12/19 Requesting Provider: KOOK MARLOW MD Date/Time of Note DATE: 01/31/19 TIME: 11:13 Subjective No acute events - pt comfortable - improved CHF - con't anti-Bx. ROS: No fever, no chills, no nausea, no vomiting, no diarrhea/constipation No recent weight changes No chest pain, no PND, no orthopnea - improved SOB No dizziness, blurred vision No thirst, no heat or cold intolerance Objective Vitals Vital Signs Date Temp Pulse Resp B/P (MAP) Pulse Ox O2 O2 Flow FiO2 Time Delivery Rate 01/31/19 98.2 70 16 145/75 98 Room Air 07:20 (98) 01/30/19 21 21:06 Intake and Output 01/30/19 01/30/19 01/31/19 1515:00 23:00 07:00 IntakeIntake Total 400 ml OutputOutput Total 300 ml 350 ml BalanceBalance 100 ml -350 ml Exam General: WN/WD/NAD, AOx 3 HEENT: Unicetric/atraumatic/EOMI (follow commands) NECK: JVD elevated, no thyromegaly Lymph: no lymphadenopathy HEART: regular with no S3, II/ systolic murmur at apex LUNGS: Coarse sounds ABD: soft, NT, ND, +BS : Intact Neuro: non focal SKIN: chronic changes EXT: 1+ edema Results/Medications Result Diagram: 01/31/19 0516 01/31/19 0516 Results 24 hrs Laboratory Tests Test 01/31/19 05:16 White Blood Count 13.9 H Red Blood Count 5.29 Hemoglobin 10.9 L Hematocrit 39.5 L Mean Corpuscular Volume 74.7 L Mean Corpuscular Hemoglobin 20.6 L Mean Corpuscular Hemoglobin Concent 27.6 L Red Cell Distribution Width 22.7 H Platelet Count 230 Mean Platelet Volume Immature Granulocytes % 2.400 H Neutrophils % Segmented Neutrophils % (Manual) 57 Band Neutrophils % (Manual) 2 Lymphocytes % Lymphocytes % (Manual) 10 L Reactive Lymphocytes % (Manual) 3 H Monocytes % Monocytes % (Manual) 18 H Eosinophils % Eosinophils % (Manual) 7 Basophils % Basophils % (Manual) 1 Metamyelocytes % (manual) 1 H Myelocytes % (Manual) 1 H Nucleated Red Blood Cells % 1 H Immature Granulocytes # 0.340 H Neutrophils # Neutrophils # (Manual) 8.0 H Band Neutrophils # 0.2 Lymphocytes (Manual) 1.3 Lymphocytes # Reactive Lymphocytes # 0.4 H Monocytes # Monocytes # (Manual) 2.5 H Eosinophils # Basophils # Basophils # (Manual) 0.1 H Metamyelocytes # 0.1 H Myelocytes # 0.1 H Nucleated Red Blood Cells # Platelet Estimate NORMAL Giant Platelets 40 H Polychromasia 3+ Poikilocytosis 3+ Anisocytosis 2+ Microcytosis 1+ Ovalocytes 1+ Sodium Level 143 Potassium Level 4.9 Chloride Level 115 H Carbon Dioxide Level 16 L Anion Gap 12 Blood Urea Nitrogen 38 H Creatinine 1.72 H Est Glomerular Filtrat Rate mL/min 41 L Glucose Level 78 Calcium Level 8.9 Home Meds Reported Medications Thiamine* (Vitamin B-1*) 100 Mg Tablet, 100 MG PO DAILY, TAB 01/11/19 Sodium Bicarbonate* (Sodium Bicarbonate*) 325 Mg Tablet, 325 MG PO TID, TAB 01/11/19 Simethicone* (Mylicon*) 80 Mg Tab, 80 MG PO Q6H, TAB 01/11/19 Albuterol Sulfate (Proair Respiclick) 90 Mcg Aer.pow.ba, 2 PUFFS INHALATION Q4H PRN for SHORTNESS OF BREATH, #1 BOTTLE 01/11/19 Pantoprazole* (Pantoprazole*) 40 Mg Tablet.dr, 40 MG PO AC BREAKFAST, TAB 01/11/19 Oxycodone Hcl* (Oxycontin*) 15 Mg Tab.sr.12h, 15 MG PO Q6H PRN for PAIN, TAB 01/11/19 Oxycodone Hcl* (Oxycontin*) 10 Mg Tab.sr.12h, 10 MG PO Q8H PRN for PAIN, TAB 01/11/19 Allopurinol* (Allopurinol*) 100 Mg Tablet, 100 MG PO DAILY, TAB 01/11/19 Rifaximin* (Xifaxan*) 550 Mg Tablet, 550 MG PO BID, TAB 01/11/19 Ondansetron Hcl* (Zofran*) 4 Mg Tab, 4 MG PO Q4H PRN for NAUSEA AND OR VOMITING, TAB 01/11/19 Metoprolol Tartrate* (Lopressor*) 100 Mg Tablet, 100 MG PO DAILY, #60 TAB HOLD FOR SBP<110 OR HR<60 01/11/19 Levothyroxine Sodium* (Levothyroxine Sodium*) 200 Mcg Tablet, 200 MCG PO BEFORE BREAKFAST, #30 TAB 01/11/19 Levothyroxine Sodium* (Levothyroxine Sodium*) 25 Mcg Tablet, 25 MCG PO BEFORE BREAKFAST, #30 TAB 01/11/19 Ipratropium-Albuterol (Ipratropium-Albuterol) 0.5-3 Mg/3 Ml Ampul.neb, 3 ML INHALATION Q6 PRN for WHEEZING AND SOB, #30 VIAL 01/11/19 Hydrocodone/Acetaminophen ([place] 5-325 Tablet) 1 Each Tablet, 1 EACH PO Q6H PRN for PAIN, TAB 01/11/19 Gabapentin* (Gabapentin*) 100 Mg Capsule, 100 MG PO TID, #90 CAP 01/11/19 Furosemide* (Furosemide*) 40 Mg Tablet, 40 MG PO DAILY, TAB 01/11/19 Folic Acid* (Folic Acid*) 1 Mg Tablet, 1 MG PO DAILY, TAB 01/11/19 Tamsulosin Hcl* (Flomax*) 0.4 Mg Cap.er.24h, 0.4 MG PO HS, CAP 01/11/19 Ferrous Sulfate* (Ferrous Sulfate*) 325 Mg Tabec, 325 MG PO DAILY, TAB 01/11/19 Ertapenem Sodium (Invanz) 1 Gm Vial, 1 GM IM DAILY, VIAL 01/11/19 Epoetin Ghulam (Epogen) 10,000 Units/Ml Soln, 51305 UNITS SC Q TUE,SHARONA,SAT, VIAL 01/11/19 Lactulose* (Lactulose*) 10 Gm/15 Ml Solution, 30 ML PO Q6, ML 01/11/19 Docusate Sodium* (Colace*) 100 Mg Capsule, 200 MG PO QHS, #30 CAP 01/11/19 Dorzolamide-Timolol* (Cosopt*) 2%-0.5% - 10 Ml Soln, 1 DROP BOTH EYES BID, BOTTLE 01/11/19 Budesonide* (Budesonide*) 0.5 Mg/2 Ml Ampul.neb, 0.5 MG INHALATION BID, AMP 01/11/19 Lorazepam* (Lorazepam*) 1 Mg Tablet, 1 MG PO BID PRN for ANXIETY, #30 TAB 01/11/19 Ascorbic Acid (Vitamin C) 500 Mg Tab, 500 MG PO DAILY, TAB 01/11/19 Arformoterol Tartrate (Brovana) 15 Mcg/2 Ml Vial.neb, 15 MCG INHALATION BID, VIAL 01/11/19 Spironolactone* (Aldactone*) 50 Mg Tablet, 50 MG PO DAILY, #30 TAB HOLD FOR SBP<110 01/11/19 Salmeterol Xinaf/Fluticasone* (Advair*) 250-50 Diskus Inhaler, 1 INH INHALATION BID, #1 INHALER 01/11/19 Acetaminophen* (Acetaminophen*) 500 MG Extra Strength Tablet, 500 MG PO Q4H PRN for MILD PAIN LEVEL 1-3, TAB 01/11/19 Medications Current Medications IV Flush (NS 3 ml) 3 ml PER PROTOCOL IV ; Start 01/11/19 at 13:00 Ondansetron HCl (Zofran Inj) 4 mg Q6H PRN IV NAUSEA/VOMITING Last administered on 01/28/19at 01:43; Admin Dose 4 MG; Start 01/11/19 at 13:00 Acetaminophen (Tylenol Tab) 650 mg Q6H PRN PO .PAIN 1-3 OR TEMP; Start 01/11/19 at 13:00 Albuterol (Proventil 0.083% (Neb)) 2.5 mg Q6 PRN HHN shortness of breath; Start 01/11/19 at 13:00 Metoprolol Succinate (Toprol Xl) 50 mg DAILY PO Last administered on 01/31/19at 08:17; Admin Dose 50 MG; Start 01/12/19 at 09:00 Clonidine (Catapres) 0.1 mg Q6H PRN PO systolic BP > 160 Last administered on 01/12/19at 21:31; Admin Dose 0.1 MG; Start 01/12/19 at 21:00 Levothyroxine Sodium (Synthroid) 225 mcg DAILY@06 PO Last administered on 01/31/19at 06:52; Admin Dose 225 MCG; Start 01/13/19 at 06:00 Allopurinol (Zyloprim) 100 mg DAILY PO Last administered on 01/31/19at 08:14; Admin Dose 100 MG; Start 01/13/19 at 09:00 Ascorbic Acid (Vitamin C) 500 mg DAILY PO Last administered on 01/31/19 08:14; Admin Dose 500 MG; Start 01/13/19 at 09:00 Docusate Sodium (Colace) 200 mg QHS PO Last administered on 01/30/19 20:23; Admin Dose 200 MG; Start 01/13/19 at 21:00 Epoetin Ghulam-epbx (RETACRIT(non-esrd)) 10,000 unit Q48H SC Last administered on 01/25/19 18:32; Admin Dose 10,000 UNIT; Start 01/13/19 at 18:00; Status Hold Ferrous Sulfate (Ferrous Sulfate (Ec)) 325 mg DAILY PO Last administered on 01/31/19 08:12; Admin Dose 325 MG; Start 01/13/19 at 09:00 Folic Acid (Folic Acid) 1 mg DAILY PO Last administered on 01/31/19 08:13; Admin Dose 1 MG; Start 01/13/19 at 09:00 Gabapentin (Neurontin) 100 mg TID PO Last administered on 01/30/19 20:23; Admin Dose 100 MG; Start 01/13/19 at 09:00 Lorazepam (Ativan) 1 mg BID PRN PO ANXIETY Last administered on 01/14/19 20:36; Admin Dose 1 MG; Start 01/13/19 at 06:30 Rifaximin (Xifaxan) 550 mg BID PO Last administered on 01/31/19 08:15; Admin Dose 550 MG; Start 01/13/19 at 09:00 Tamsulosin HCl (Flomax) 0.4 mg HS PO Last administered on 01/30/19 20:23; Admin Dose 0.4 MG; Start 01/13/19 at 21:00 Thiamine HCl (Vitamin B1) 100 mg DAILY PO Last administered on 01/31/19 08:13; Admin Dose 100 MG; Start 01/13/19 at 09:00 Arformoterol Tartrate (Brovana (Neb)) 2 ml BID RESP THERAPY INH Last administered on 01/30/19 21:06; Admin Dose 2 ML; Start 01/13/19 at 09:00 Budesonide (Pulmicort (Neb)) 0.5 mg Q12H RESP THERAPY INH Last administered on 01/30/19 21:06; Admin Dose 0.5 MG; Start 01/13/19 at 09:00 Nicotine (Nicoderm 21 Mg/ 24hr) 1 patch DAILY TRANSDERM Last administered on 01/31/19 08:27; Admin Dose 1 PATCH; Start 01/14/19 at 09:00 Famotidine (Pepcid) 20 mg Q12 PO Last administered on 01/31/19 08:13; Admin Dose 20 MG; Start 01/13/19 at 21:00 Furosemide (Lasix) 20 mg DAILY PO Last administered on 01/31/19 08:16; Admin Dose 20 MG; Start 01/16/19 at 09:00 Buspirone HCl (Buspar) 10 mg BID PO Last administered on 01/31/19 08:13; Admin Dose 10 MG; Start 01/16/19 at 12:30 Amlodipine Besylate (Norvasc) 5 mg BID PO Last administered on 01/31/19 08:17; Admin Dose 5 MG; Start 01/21/19 at 21:00 Hydromorphone HCl (Dilaudid) 2 mg Q4H PRN IV SEVERE PAIN LEVEL 7-10 Last administered on 01/31/19 09:03; Admin Dose 2 MG; Start 01/25/19 at 14:00 Lorazepam (Ativan) 1 mg Q6H PRN IV ANXIETY Last administered on 01/31/19 06:55; Admin Dose 1 MG; Start 01/25/19 at 14:00 Dorzolamide/ Timolol (Cosopt Pf Eye Drops) 1 drop BID LEFT EYE Last administered on 01/26/19 08:59; Admin Dose 1 DROP; Start 01/26/19 at 09:00 Lactulose (Enulose) 30 gm BID PO Last administered on 01/31/19 08:20; Admin Dose 30 GM; Start 01/26/19 at 09:00 Simethicone (Mylicon) 80 mg Q6 PRN PO bloating; Start 01/26/19 at 07:00 Eye Lubricant (Artificial Tears Oph) 2 drop Q6H PRN BOTH EYES DRY EYES Last administered on 01/28/19 15:23; Admin Dose 2 DROP; Start 01/26/19 at 07:00 Lubiprostone (Amitiza) 24 mcg BID PO Last administered on 4/27/19at 08:11; Admin Dose 24 MCG; Start 01/26/19 at 09:00 Linezolid (Zyvox) 600 mg BID PO Last administered on 01/31/19at 08:12; Admin Dose 600 MG; Start 01/28/19 at 13:30 Citric Acid/ Sodium Citrate (Bicitra) 30 ml TID PO Last administered on 01/31/19at 08:18; Admin Dose 30 ML; Start 01/29/19 at 09:00 Metoprolol Succinate (Toprol Xl) 50 mg HS PO Last administered on 01/30/19at 20:24; Admin Dose 50 MG; Start 01/29/19 at 21:00 Polyethylene Glycol (Miralax) 17 gm DAILY PRN PO CONSTIPATION; Start 01/29/19 at 19:30 Oxycodone HCl (Roxicodone) 10 mg Q4H PRN PO MODERATE PAIN LEVEL 4-6 Last administered on 01/31/19at 08:10; Admin Dose 10 MG; Start 01/30/19 at 17:30 Assessment/Plan Hospital Course (Demo Recall) 1. Congestive heart failure exacerbation, diastolic, acute on chronic - con't diuresis, better now - con't diuresis, better now - much better overall - con't Rx - much better overall. 2. Hypertension - well controlled, con't med rx Reasonably controlled. In good range now. 3. Shortness of breath secondary to congestive heart failure exacerbation, diastolic, acute on chronic - improved with therapy. Con't Rx. Better 4. Chronic renal failure - good urine output now. Better output now. 5. Cirrhosis - on meds. Better fluid satus overall. Lost weight. 6. Ascites, recurrent. 7. Hypothyroidism. 8. History of ETOH abuse- avoid hepatotoxic meds. D/C advised. 9. Anemia - H/H stable - no bleeding now. Stable now. NO bleeding now. 10. Infection - on anti-Bx now. HALEY LIRIANO MD Jan 31, 2019 11:14
[2019-01-31 14:05] VITALS: BP 159/68; PULSE 72; RESP 16
[2019-01-31 14:30] VITALS: BP 152/69; PULSE 74; RESP 18
--- NOTE | 2019-01-31 17:33 | CONS ---
Assessment/Plan Assessment/Plan Hospital Course (Demo Recall) 63 yo male Interval hx: No acute events. Diarrhea. C/O back pain 1. Microcytic hypochromic anemia, most probably related to iron deficiency. -anemia work up from previous visit last week noted. NEG FOB -EGD done April 2018 showed duodenal ulcer and gastritis -hgb stable -s/p colonoscopy 01/28 2. 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 -US on 01/07 did not ascites 3. Nicotine dependence 4. Congestive heart failure. -EF of 60% 5. Chronic obstructive pulmonary disease. 6. Renal failure. 7. Opioid induced constipation -lactulose, amitiza, miralax PLAN: Monitor HH Hold laxatives for diarrhea Pt examined and plan of care discussed with Dr. Casiano Consultation Date/Type/Reason Admit Date/Time Jan 11, 2019 at 09:53 Initial Consult Date 01/11/19 Requesting Provider: KOKO MARLOW MD Date/Time of Note DATE: 01/31/19 TIME: 17:28 Exam/Review of Systems Exam Vitals Vital Signs Date Temp Pulse Resp B/P (MAP) Pulse Ox O2 O2 Flow FiO2 Time Delivery Rate 01/31/19 74 18 152/69 Room Air 14:30 (96) 01/31/19 97.9 98 14:05 01/30/19 21 21:06 Intake and Output 01/30/19 01/30/19 01/31/19 1515:00 23:00 07:00 IntakeIntake Total 400 ml OutputOutput Total 300 ml 350 ml BalanceBalance 100 ml -350 ml Constitutional: alert, oriented Psych: depression Head: normocephalic Eyes: PERRL ENMT: mucosa pink and moist Respiratory: normal air movement Cardiovascular: regular rate and rhythm Gastrointestinal: soft, non-tender Musculoskeletal: muscle weakness Neurological: nl mental status Results Result Diagram: 01/31/19 0516 01/31/19 0516 Results 24hrs Laboratory Tests Test 01/31/19 05:16 White Blood Count 13.9 H Red Blood Count 5.29 Hemoglobin 10.9 L Hematocrit 39.5 L Mean Corpuscular Volume 74.7 L Mean Corpuscular Hemoglobin 20.6 L Mean Corpuscular Hemoglobin Concent 27.6 L Red Cell Distribution Width 22.7 H Platelet Count 230 Mean Platelet Volume Immature Granulocytes % 2.400 H Neutrophils % Segmented Neutrophils % (Manual) 57 Band Neutrophils % (Manual) 2 Lymphocytes % Lymphocytes % (Manual) 10 L Reactive Lymphocytes % (Manual) 3 H Monocytes % Monocytes % (Manual) 18 H Eosinophils % Eosinophils % (Manual) 7 Basophils % Basophils % (Manual) 1 Metamyelocytes % (manual) 1 H Myelocytes % (Manual) 1 H Nucleated Red Blood Cells % 1 H Immature Granulocytes # 0.340 H Neutrophils # Neutrophils # (Manual) 8.0 H Band Neutrophils # 0.2 Lymphocytes (Manual) 1.3 Lymphocytes # Reactive Lymphocytes # 0.4 H Monocytes # Monocytes # (Manual) 2.5 H Eosinophils # Basophils # Basophils # (Manual) 0.1 H Metamyelocytes # 0.1 H Myelocytes # 0.1 H Nucleated Red Blood Cells # Platelet Estimate NORMAL Giant Platelets 40 H Polychromasia 3+ Poikilocytosis 3+ Anisocytosis 2+ Microcytosis 1+ Ovalocytes 1+ Sodium Level 143 Potassium Level 4.9 Chloride Level 115 H Carbon Dioxide Level 16 L Anion Gap 12 Blood Urea Nitrogen 38 H Creatinine 1.72 H Est Glomerular Filtrat Rate mL/min 41 L Glucose Level 78 Calcium Level 8.9 Medications Medication Current Medications IV Flush (NS 3 ml) 3 ml PER PROTOCOL IV ; Start 01/11/19 at 13:00 Ondansetron HCl (Zofran Inj) 4 mg Q6H PRN IV NAUSEA/VOMITING Last administered on 01/28/19at 01:43; Admin Dose 4 MG; Start 01/11/19 at 13:00 Acetaminophen (Tylenol Tab) 650 mg Q6H PRN PO .PAIN 1-3 OR TEMP; Start 01/11/19 at 13:00 Albuterol (Proventil 0.083% (Neb)) 2.5 mg Q6 PRN HHN shortness of breath; Start 01/11/19 at 13:00 Metoprolol Succinate (Toprol Xl) 50 mg DAILY PO Last administered on 01/31/19at 08:17; Admin Dose 50 MG; Start 01/12/19 at 09:00 Clonidine (Catapres) 0.1 mg Q6H PRN PO systolic BP > 160 Last administered on 01/12/19at 21:31; Admin Dose 0.1 MG; Start 01/12/19 at 21:00 Levothyroxine Sodium (Synthroid) 225 mcg DAILY@06 PO Last administered on 01/31/19 06:52; Admin Dose 225 MCG; Start 01/13/19 at 06:00 Allopurinol (Zyloprim) 100 mg DAILY PO Last administered on 01/31/19 08:14; Admin Dose 100 MG; Start 01/13/19 at 09:00 Ascorbic Acid (Vitamin C) 500 mg DAILY PO Last administered on 01/31/19 08:14; Admin Dose 500 MG; Start 01/13/19 at 09:00 Docusate Sodium (Colace) 200 mg QHS PO Last administered on 01/30/19 20:23; Admin Dose 200 MG; Start 01/13/19 at 21:00 Epoetin Ghulam-epbx (RETACRIT(non-esrd)) 10,000 unit Q48H SC Last administered on 01/25/19 18:32; Admin Dose 10,000 UNIT; Start 01/13/19 at 18:00; Status Hold Ferrous Sulfate (Ferrous Sulfate (Ec)) 325 mg DAILY PO Last administered on 01/31/19 08:12; Admin Dose 325 MG; Start 01/13/19 at 09:00 Folic Acid (Folic Acid) 1 mg DAILY PO Last administered on 01/31/19 08:13; Admin Dose 1 MG; Start 01/13/19 at 09:00 Gabapentin (Neurontin) 100 mg TID PO Last administered on 01/30/19 20:23; Admin Dose 100 MG; Start 01/13/19 at 09:00 Lorazepam (Ativan) 1 mg BID PRN PO ANXIETY Last administered on 01/14/19 20:36 ; Admin Dose 1 MG; Start 01/13/19 at 06:30 Rifaximin (Xifaxan) 550 mg BID PO Last administered on 01/31/19 08:15; Admin Dose 550 MG; Start 01/13/19 at 09:00 Tamsulosin HCl (Flomax) 0.4 mg HS PO Last administered on 01/30/19 20:23; Admin Dose 0.4 MG; Start 01/13/19 at 21:00 Thiamine HCl (Vitamin B1) 100 mg DAILY PO Last administered on 01/31/19 08:13; Admin Dose 100 MG; Start 01/13/19 at 09:00 Arformoterol Tartrate (Brovana (Neb)) 2 ml BID RESP THERAPY INH Last administered on 01/30/19 21:06; Admin Dose 2 ML; Start 01/13/19 at 09:00 Budesonide (Pulmicort (Neb)) 0.5 mg Q12H RESP THERAPY INH Last administered on 01/30/19 21:06; Admin Dose 0.5 MG; Start 01/13/19 at 09:00 Nicotine (Nicoderm 21 Mg/ 24hr) 1 patch DAILY TRANSDERM Last administered on 01/31/19 08:27; Admin Dose 1 PATCH; Start 01/14/19 at 09:00 Famotidine (Pepcid) 20 mg Q12 PO Last administered on 01/31/19 08:13; Admin D ose 20 MG; Start 01/13/19 at 21:00 Furosemide (Lasix) 20 mg DAILY PO Last administered on 01/31/19 08:16; Admin Dose 20 MG; Start 01/16/19 at 09:00 Buspirone HCl (Buspar) 10 mg BID PO Last administered on 01/31/19 08:13; Admin Dose 10 MG; Start 01/16/19 at 12:30 Amlodipine Besylate (Norvasc) 5 mg BID PO Last administered on 01/31/19 08:17; Admin Dose 5 MG; Start 01/21/19 at 21:00 Hydromorphone HCl (Dilaudid) 2 mg Q4H PRN IV SEVERE PAIN LEVEL 7-10 Last administered on 01/31/19 17:04; Admin Dose 2 MG; Start 01/25/19 at 14:00 Lorazepam (Ativan) 1 mg Q6H PRN IV ANXIETY Last administered on 01/31/19 06:55; Admin Dose 1 MG; Start 01/25/19 at 14:00 Dorzolamide/ Timolol (Cosopt Pf Eye Drops) 1 drop BID LEFT EYE Last administered on 01/26/19 08:59; Admin Dose 1 DROP; Start 01/26/19 at 09:00 Lactulose (Enulose) 30 gm BID PO Last administered on 01/31/19 08:20; Admin Dose 30 GM; Start 01/26/19 at 09:00 Simethicone (Mylicon) 80 mg Q6 PRN PO bloating; Start 01/26/19 at 07:00 Eye Lubricant (Artificial Tears Oph) 2 drop Q6H PRN BOTH EYES DRY EYES Last administered on 01/28/19 15:23; Admin Dose 2 DROP; Start 01/26/19 at 07:00 Lubiprostone (Amitiza) 24 mcg BID PO Last administered on 01/31/19 08:11; Admin Dose 24 MCG; Start 01/26/19 at 09:00 Linezolid (Zyvox) 600 mg BID PO Last administered on 01/31/19 08:12; Admin Dose 600 MG; Start 01/28/19 at 13:30 Citric Acid/ Sodium Citrate (Bicitra) 30 ml TID PO Last administered on 01/31/19 12:05; Admin Dose 30 ML; Start 01/29/19 at 09:00 Metoprolol Succinate (Toprol Xl) 50 mg HS PO Last administered on 01/30/19 20:24; Admin Dose 50 MG; Start 01/29/19 at 21:00 Polyethylene Glycol (Miralax) 17 gm DAILY PRN PO CONSTIPATION; Start 01/29/19 at 19:30 Oxycodone HCl (Roxicodone) 10 mg Q4H PRN PO MODERATE PAIN LEVEL 4-6 Last adm inistered on 01/31/19 16:11; Admin Dose 10 MG; Start 01/30/19 at 17:30 DEYVI HAN Jan 31, 2019 17:33
--- NOTE | 2019-01-31 18:38 | PN ---
Date/Time of Note Date/Time of Note DATE: 01/31/19 TIME: 18:37 Assessment/Plan VTE Prophylaxis Risk score (from Ns)>0 risk: 3 SCD applied (from Nsg): No Lines/Catheters IV Catheter Type (from Nrs): Saline Lock Urinary Cath still in place: No Assessment/Plan Assessment/Plan - Hyperlaemia- Kayexalate x 1 -Shortness of breath, rule out acute coronary syndrome, cardiac enzymes are negative x3. -Acute on chronic diastolic congestive heart failure. Continue Lasix. Dr. Foley is following in cardiology consultation. -COPD exacerbation, continue bronchodilators, steroids, and oxygen supplementation. -Anemia, Dr. Mayes is following in gastroenterology consultation. -Alcoholic liver cirrhosis -Acute kidney injury on chronic kidney disease. Dr. Leung is following in nephrology consultation. -Bilateral lower extremities chronic venous stasis -Left foot plantar ulcer. Dr. Younger is following in podiatry consultation. -Obesity -Nicotine dependence, continue nicotine patch, cessation is strongly advised. -Ongoing alcohol use, cessation is strongly advised. -Poor medical compliance -Chronic pain- geovanny get pain management consult w/Dr Oneil Result Diagram: 01/31/19 0516 01/31/19 0516 Results 24hrs Laboratory Tests Test 01/31/19 05:16 White Blood Count 13.9 H Red Blood Count 5.29 Hemoglobin 10.9 L Hematocrit 39.5 L Mean Corpuscular Volume 74.7 L Mean Corpuscular Hemoglobin 20.6 L Mean Corpuscular Hemoglobin Concent 27.6 L Red Cell Distribution Width 22.7 H Platelet Count 230 Mean Platelet Volume Immature Granulocytes % 2.400 H Neutrophils % Segmented Neutrophils % (Manual) 57 Band Neutrophils % (Manual) 2 Lymphocytes % Lymphocytes % (Manual) 10 L Reactive Lymphocytes % (Manual) 3 H Monocytes % Monocytes % (Manual) 18 H Eosinophils % Eosinophils % (Manual) 7 Basophils % Basophils % (Manual) 1 Metamyelocytes % (manual) 1 H Myelocytes % (Manual) 1 H Nucleated Red Blood Cells % 1 H Immature Granulocytes # 0.340 H Neutrophils # Neutrophils # (Manual) 8.0 H Band Neutrophils # 0.2 Lymphocytes (Manual) 1.3 Lymphocytes # Reactive Lymphocytes # 0.4 H Monocytes # Monocytes # (Manual) 2.5 H Eosinophils # Basophils # Basophils # (Manual) 0.1 H Metamyelocytes # 0.1 H Myelocytes # 0.1 H Nucleated Red Blood Cells # Platelet Estimate NORMAL Giant Platelets 40 H Polychromasia 3+ Poikilocytosis 3+ Anisocytosis 2+ Microcytosis 1+ Ovalocytes 1+ Sodium Level 143 Potassium Level 4.9 Chloride Level 115 H Carbon Dioxide Level 16 L Anion Gap 12 Blood Urea Nitrogen 38 H Creatinine 1.72 H Est Glomerular Filtrat Rate mL/min 41 L Glucose Level 78 Calcium Level 8.9 Exam/Review of Systems Exam Vitals Vital Signs Date Temp Pulse Resp B/P (MAP) Pulse Ox O2 O2 Flow FiO2 Time Delivery Rate 01/31/19 74 18 152/69 Room Air 14:30 (96) 01/31/19 97.9 98 14:05 01/30/19 21 21:06 Intake and Output 01/30/19 01/30/19 01/31/19 1515:00 23:00 07:00 IntakeIntake Total 400 ml OutputOutput Total 300 ml 350 ml BalanceBalance 100 ml -350 ml Constitutional: alert, well developed Psych: nl mood/affect Eyes: nl lids, nl sclera ENMT: nl external ears & nose Respiratory: clear to auscultation, diminished breath sounds Cardiovascular: other Gastrointestinal: soft, non-tender Musculoskeletal: muscle weakness Extremities: normal pulses Neurological: nl speech Results Results 24hrs Laboratory Tests Test 01/31/19 05:16 White Blood Count 13.9 H Red Blood Count 5.29 Hemoglobin 10.9 L Hematocrit 39.5 L Mean Corpuscular Volume 74.7 L Mean Corpuscular Hemoglobin 20.6 L Mean Corpuscular Hemoglobin Concent 27.6 L Red Cell Distribution Width 22.7 H Platelet Count 230 Mean Platelet Volume Immature Granulocytes % 2.400 H Neutrophils % Segmented Neutrophils % (Manual) 57 Band Neutrophils % (Manual) 2 Lymphocytes % Lymphocytes % (Manual) 10 L Reactive Lymphocytes % (Manual) 3 H Monocytes % Monocytes % (Manual) 18 H Eosinophils % Eosinophils % (Manual) 7 Basophils % Basophils % (Manual) 1 Metamyelocytes % (manual) 1 H Myelocytes % (Manual) 1 H Nucleated Red Blood Cells % 1 H Immature Granulocytes # 0.340 H Neutrophils # Neutrophils # (Manual) 8.0 H Band Neutrophils # 0.2 Lymphocytes (Manual) 1.3 Lymphocytes # Reactive Lymphocytes # 0.4 H Monocytes # Monocytes # (Manual) 2.5 H Eosinophils # Basophils # Basophils # (Manual) 0.1 H Metamyelocytes # 0.1 H Myelocytes # 0.1 H Nucleated Red Blood Cells # Platelet Estimate NORMAL Giant Platelets 40 H Polychromasia 3+ Poikilocytosis 3+ Anisocytosis 2+ Microcytosis 1+ Ovalocytes 1+ Sodium Level 143 Potassium Level 4.9 Chloride Level 115 H Carbon Dioxide Level 16 L Anion Gap 12 Blood Urea Nitrogen 38 H Creatinine 1.72 H Est Glomerular Filtrat Rate mL/min 41 L Glucose Level 78 Calcium Level 8.9 Medications Medication Current Medications IV Flush (NS 3 ml) 3 ml PER PROTOCOL IV ; Start 01/11/19 at 13:00 Ondansetron HCl (Zofran Inj) 4 mg Q6H PRN IV NAUSEA/VOMITING Last administered on 01/28/19at 01:43; Start 01/11/19 at 13:00 Acetaminophen (Tylenol Tab) 650 mg Q6H PRN PO .PAIN 1-3 OR TEMP; Start 01/11/19 at 13:00 Albuterol (Proventil 0.083% (Neb)) 2.5 mg Q6 PRN HHN shortness of breath; Start 01/11/19 at 13:00 Metoprolol Succinate (Toprol Xl) 50 mg DAILY PO Last administered on 01/31/19 08:17; Start 01/12/19 at 09:00 Clonidine (Catapres) 0.1 mg Q6H PRN PO systolic BP > 160 Last administered on 01/12/19at 21:31; Start 01/12/19 at 21:00 Levothyroxine Sodium (Synthroid) 225 mcg DAILY@06 PO Last administered on 01/31/19at 06:52; Start 01/13/19 at 06:00 Allopurinol (Zyloprim) 100 mg DAILY PO Last administered on 01/31/19 08:14; Start 01/13/19 at 09:00 Ascorbic Acid (Vitamin C) 500 mg DAILY PO Last administered on 01/31/19at 08:14; Start 01/13/19 at 09:00 Docusate Sodium (Colace) 200 mg QHS PO Last administered on 01/30/19at 20:23; Start 01/13/19 at 21:00 Epoetin Ghulam-epbx (RETACRIT(non-esrd)) 10,000 unit Q48H SC Last administered on 01/25/19 18:32; Start 01/13/19 at 18:00; Status Hold Ferrous Sulfate (Ferrous Sulfate (Ec)) 325 mg DAILY PO Last administered on 01/31/19 08:12; Start 01/13/19 at 09:00 Folic Acid (Folic Acid) 1 mg DAILY PO Last administered on 01/31/19 08:13; Start 01/13/19 at 09:00 Gabapentin (Neurontin) 100 mg TID PO Last administered on 01/30/19 20:23; Start 01/13/19 at 09:00 Lorazepam (Ativan) 1 mg BID PRN PO ANXIETY Last administered on 01/14/19 20:36; Start 01/13/19 at 06:30 Rifaximin (Xifaxan) 550 mg BID PO Last administered on 01/31/19 08:15; Start 01/13/19 at 09:00 Tamsulosin HCl (Flomax) 0.4 mg HS PO Last administered on 01/30/19 20:23; Start 01/13/19 at 21:00 Thiamine HCl (Vitamin B1) 100 mg DAILY PO Last administered on 01/31/19 08:13; Start 01/13/19 at 09:00 Arformoterol Tartrate (Brovana (Neb)) 2 ml BID RESP THERAPY INH Last administered on 01/30/19 21:06; Start 01/13/19 at 09:00 Budesonide (Pulmicort (Neb)) 0.5 mg Q12H RESP THERAPY INH Last administered on 01/30/19 21:06; Start 01/13/19 at 09:00 Nicotine (Nicoderm 21 Mg/ 24hr) 1 patch DAILY TRANSDERM Last administered on 01/31/19 08:27; Start 01/14/19 at 09:00 Famotidine (Pepcid) 20 mg Q12 PO Last administered on 01/31/19 08:13; Start 01/13/19 at 21:00 Furosemide (Lasix) 20 mg DAILY PO Last administered on 01/31/19 08:16; Start 01/16/19 at 09:00 Buspirone HCl (Buspar) 10 mg BID PO Last administered on 01/31/19 08:13; Start 01/16/19 at 12:30 Amlodipine Besylate (Norvasc) 5 mg BID PO Last administered on 01/31/19 08:17; Start 01/21/19 at 21:00 Hydromorphone HCl (Dilaudid) 2 mg Q4H PRN IV SEVERE PAIN LEVEL 7-10 Last administered on 01/31/19 17:04; Start 01/25/19 at 14:00 Lorazepam (Ativan) 1 mg Q6H PRN IV ANXIETY Last administered on 01/31/19 06:55; Start 01/25/19 at 14:00 Dorzolamide/ Timolol (Cosopt Pf Eye Drops) 1 drop BID LEFT EYE Last administered on 01/26/19 08:59; Start 01/26/19 at 09:00 Lactulose (Enulose) 30 gm BID PO Last administered on 01/31/19 08:20; Start 01/26/19 at 09:00 Simethicone (Mylicon) 80 mg Q6 PRN PO bloating; Start 01/26/19 at 07:00 Eye Lubricant (Artificial Tears Oph) 2 drop Q6H PRN BOTH EYES DRY EYES Last administered on 01/28/19 15:23; Start 01/26/19 at 07:00 Lubiprostone (Amitiza) 24 mcg BID PO Last administered on 01/31/19 08:11; S tart 01/26/19 at 09:00 Linezolid (Zyvox) 600 mg BID PO Last administered on 01/31/19 08:12; Start 01/28/19 at 13:30 Citric Acid/ Sodium Citrate (Bicitra) 30 ml TID PO Last administered on 01/31/19 12:05; Start 01/29/19 at 09:00 Metoprolol Succinate (Toprol Xl) 50 mg HS PO Last administered on 01/30/19 20:24; Start 01/29/19 at 21:00 Polyethylene Glycol (Miralax) 17 gm DAILY PRN PO CONSTIPATION; Start 01/29/19 at 19:30 Oxycodone HCl (Roxicodone) 10 mg Q4H PRN PO MODERATE PAIN LEVEL 4-6 Last administered on 01/31/19 16:11; Start 01/30/19 at 17:30 GO LAMBERT Jan 31, 2019 18:38
--- NOTE | 2019-01-31 18:55 | CONS ---
Assessment/Plan Assessment/Plan Assessment/Plan (Daily) 1. acute on chronic renal failure due to Type II hepatorenal syndrome 2. SIRS 3. anemia of CKD 5. Decompensated Liver cirrhosis with Symptomatic ascites 6. H/O HTN 7. h/o Liver cirrhosis with ascites 8. H/o Diastolic CHF 9. Bilateral LE chronic venous stasis 10.H/o BPH on Flomax 11. Acute hyperkalemia 12. Metabolic acidosis Plan: s/p IV abx Ertapenam,pt is on Zyvox 600mg BID, watch for metabolic Acidosis, pt is already on Bicitra 30ml PO TID, if conitnues to have very low hCo3 despite bicitra, will request ID to cut down or consider alternative agent than zyvox BUN/Cr 38/1.72, K normal on Bicitra 30ml PO TID Continue Lasix to 20mg po daily, , , Toprol Xl 50mg BID, amlodipine 5 mg po BID -EGD done April 2018 showed duodenal ulcer and gastritis -s/p colonoscopy 01/28/19 Flomax 0.4mg po daily for BPH will follow up Consultation Date/Type/Reason Admit Date/Time Jan 11, 2019 at 09:53 Initial Consult Date 01/11/19 Type of Consult NEPHROLOGY Requesting Provider: KOKO MARLOW MD Date/Time of Note DATE: 01/31/19 TIME: 18:55 Exam/Review of Systems Exam Vitals Vital Signs Date Temp Pulse Resp B/P (MAP) Pulse Ox O2 O2 Flow FiO2 Time Delivery Rate 01/31/19 74 18 152/69 Room Air 14:30 (96) 01/31/19 97.9 98 14:05 01/30/19 21 21:06 Intake and Output 01/30/19 01/30/19 01/31/19 1515:00 23:00 07:00 IntakeIntake Total 400 ml OutputOutput Total 300 ml 350 ml BalanceBalance 100 ml -350 ml Results Result Diagram: 01/31/19 0516 01/31/19 0516 Results 24hrs Laboratory Tests Test 01/31/19 05:16 White Blood Count 13.9 H Red Blood Count 5.29 Hemoglobin 10.9 L Hematocrit 39.5 L Mean Corpuscular Volume 74.7 L Mean Corpuscular Hemoglobin 20.6 L Mean Corpuscular Hemoglobin Concent 27.6 L Red Cell Distribution Width 22.7 H Platelet Count 230 Mean Platelet Volume Immature Granulocytes % 2.400 H Neutrophils % Segmented Neutrophils % (Manual) 57 Band Neutrophils % (Manual) 2 Lymphocytes % Lymphocytes % (Manual) 10 L Reactive Lymphocytes % (Manual) 3 H Monocytes % Monocytes % (Manual) 18 H Eosinophils % Eosinophils % (Manual) 7 Basophils % Basophils % (Manual) 1 Metamyelocytes % (manual) 1 H Myelocytes % (Manual) 1 H Nucleated Red Blood Cells % 1 H Immature Granulocytes # 0.340 H Neutrophils # Neutrophils # (Manual) 8.0 H Band Neutrophils # 0.2 Lymphocytes (Manual) 1.3 Lymphocytes # Reactive Lymphocytes # 0.4 H Monocytes # Monocytes # (Manual) 2.5 H Eosinophils # Basophils # Basophils # (Manual) 0.1 H Metamyelocytes # 0.1 H Myelocytes # 0.1 H Nucleated Red Blood Cells # Platelet Estimate NORMAL Giant Platelets 40 H Polychromasia 3+ Poikilocytosis 3+ Anisocytosis 2+ Microcytosis 1+ Ovalocytes 1+ Sodium Level 143 Potassium Level 4.9 Chloride Level 115 H Carbon Dioxide Level 16 L Anion Gap 12 Blood Urea Nitrogen 38 H Creatinine 1.72 H Est Glomerular Filtrat Rate mL/min 41 L Glucose Level 78 Calcium Level 8.9 Medications Medication Current Medications IV Flush (NS 3 ml) 3 ml PER PROTOCOL IV ; Start 01/11/19 at 13:00 Ondansetron HCl (Zofran Inj) 4 mg Q6H PRN IV NAUSEA/VOMITING Last administered on 01/28/19at 01:43; Admin Dose 4 MG; Start 01/11/19 at 13:00 Acetaminophen (Tylenol Tab) 650 mg Q6H PRN PO .PAIN 1-3 OR TEMP; Start 01/11/19 at 13:00 Albuterol (Proventil 0.083% (Neb)) 2.5 mg Q6 PRN HHN shortness of breath; Start 01/11/19 at 13:00 Metoprolol Succinate (Toprol Xl) 50 mg DAILY PO Last administered on 01/31/19at 08:17; Admin Dose 50 MG; Start 01/12/19 at 09:00 Clonidine (Catapres) 0.1 mg Q6H PRN PO systolic BP > 160 Last administered on 01/12/19at 21:31; Admin Dose 0.1 MG; Start 01/12/19 at 21:00 Levothyroxine Sodium (Synthroid) 225 mcg DAILY@06 PO Last administered on 01/31/19 06:52; Admin Dose 225 MCG; Start 01/13/19 at 06:00 Allopurinol (Zyloprim) 100 mg DAILY PO Last administered on 01/31/19 08:14; Admin Dose 100 MG; Start 01/13/19 at 09:00 Ascorbic Acid (Vitamin C) 500 mg DAILY PO Last administered on 01/31/19 08:14; Admin Dose 500 MG; Start 01/13/19 at 09:00 Docusate Sodium (Colace) 200 mg QHS PO Last administered on 01/30/19 20:23; Admin Dose 200 MG; Start 01/13/19 at 21:00 Epoetin Ghulam-epbx (RETACRIT(non-esrd)) 10,000 unit Q48H SC Last administered on 01/25/19 18:32; Admin Dose 10,000 UNIT; Start 01/13/19 at 18:00; Status Hold Ferrous Sulfate (Ferrous Sulfate (Ec)) 325 mg DAILY PO Last administered on 01/31/19 08:12; Admin Dose 325 MG; Start 01/13/19 at 09:00 Folic Acid (Folic Acid) 1 mg DAILY PO Last administered on 01/31/19 08:13; Admin Dose 1 MG; Start 01/13/19 at 09:00 Gabapentin (Neurontin) 100 mg TID PO Last administered on 01/30/19 20:23; Admin Dose 100 MG; Start 01/13/19 at 09:00 Lorazepam (Ativan) 1 mg BID PRN PO ANXIETY Last administered on 01/14/19 20:36; Admin Dose 1 MG; Start 01/13/19 at 06:30 Rifaximin (Xifaxan) 550 mg BID PO Last administered on 01/31/19 08:15; Admin Dose 550 MG; Start 01/13/19 at 09:00 Tamsulosin HCl (Flomax) 0.4 mg HS PO Last administered on 01/30/19 20:23; Admin Dose 0.4 MG; Start 01/13/19 at 21:00 Thiamine HCl (Vitamin B1) 100 mg DAILY PO Last administered on 01/31/19 08:13; Admin Dose 100 MG; Start 01/13/19 at 09:00 Arformoterol Tartrate (Brovana (Neb)) 2 ml BID RESP THERAPY INH Last administered on 01/30/19 21:06; Admin Dose 2 ML; Start 01/13/19 at 09:00 Budesonide (Pulmicort (Neb)) 0.5 mg Q12H RESP THERAPY INH Last administered on 01/30/19 21:06; Admin Dose 0.5 MG; Start 01/13/19 at 09:00 Nicotine (Nicoderm 21 Mg/ 24hr) 1 patch DAILY TRANSDERM Last administered on 01/31/19 08:27; Admin Dose 1 PATCH; Start 01/14/19 at 09:00 Famotidine (Pepcid) 20 mg Q12 PO Last administered on 01/31/19 08:13; Admin Dose 20 MG; Start 01/13/19 at 21:00 Furosemide (Lasix) 20 mg DAILY PO Last administered on 01/31/19 08:16; Admin Dose 20 MG; Start 01/16/19 at 09:00 Buspirone HCl (Buspar) 10 mg BID PO Last administered on 01/31/19 08:13; Admin Dose 10 MG; Start 01/16/19 at 12:30 Amlodipine Besylate (Norvasc) 5 mg BID PO Last administered on 01/31/19 08:17; Admin Dose 5 MG; Start 01/21/19 at 21:00 Hydromorphone HCl (Dilaudid) 2 mg Q4H PRN IV SEVERE PAIN LEVEL 7-10 Last administered on 01/31/19 17:04; Admin Dose 2 MG; Start 01/25/19 at 14:00 Lorazepam (Ativan) 1 mg Q6H PRN IV ANXIETY Last administered on 01/31/19 06:55; Admin Dose 1 MG; Start 01/25/19 at 14:00 Dorzolamide/ Timolol (Cosopt Pf Eye Drops) 1 drop BID LEFT EYE Last administered on 01/26/19 08:59; Admin Dose 1 DROP; Start 01/26/19 at 09:00 Lactulose (Enulose) 30 gm BID PO Last administered on 01/31/19 08:20; Admin Dose 30 GM; Start 01/26/19 at 09:00 Simethicone (Mylicon) 80 mg Q6 PRN PO bloating; Start 01/26/19 at 07:00 Eye Lubricant (Artificial Tears Oph) 2 drop Q6H PRN BOTH EYES DRY EYES Last administered on 01/28/19 15:23; Admin Dose 2 DROP; Start 01/26/19 at 07:00 Lubiprostone (Amitiza) 24 mcg BID PO Last administered on 01/31/19 08:11; Admin Dose 24 MCG; Start 01/26/19 at 09:00 Linezolid (Zyvox) 600 mg BID PO Last administered on 01/31/19 08:12; Admin Dose 600 MG; Start 01/28/19 at 13:30 Citric Acid/ Sodium Citrate (Bicitra) 30 ml TID PO Last administered on 01/31/19 12:05; Admin Dose 30 ML; Start 01/29/19 at 09:00 Metoprolol Succinate (Toprol Xl) 50 mg HS PO Last administered on 01/30/19 20:24; Admin Dose 50 MG; Start 01/29/19 at 21:00 Polyethylene Glycol (Miralax) 17 gm DAILY PRN PO CONSTIPATION; Start 01/29/19 at 19:30 Oxycodone HCl (Roxicodone) 10 mg Q4H PRN PO MODERATE PAIN LEVEL 4-6 Last administered on 01/31/19 16:11; Admin Dose 10 MG; Start 01/30/19 at 17:30 ELADIO DELGADO MD Jan 31, 2019 18:55
[2019-01-31 20:00] VITALS: BP 153/70; PULSE 65; RESP 18
[2019-01-31] MEDS: DOCUSATE SODIUM 100 MG CAP PO SCH (20:21)
[2019-01-31] MEDS: TAMSULOSIN (SR) 0.4 MG CAP PO SCH (20:21)
[2019-01-31] MEDS: METOPROLOL (XL) 25 MG TAB PO SCH (20:24)
[2019-02-01] MEDS: HYDROmorphONE 2 MG/ML SYG IV PRN ×6 (01:31→23:56)
[2019-02-01 02:00] VITALS: BP 155/70; PULSE 75; RESP 18
[2019-02-01] MEDS: LORAZEPAM 2 MG INJ IV PRN ×4 (02:41→22:20)
[2019-02-01] MEDS: oxyCODONE 5 MG TAB PO PRN ×4 (03:44→17:19)
[2019-02-01] MEDS: LEVOTHYROXINE 75 MCG TAB PO SCH (06:57)
[2019-02-01] MEDS: RIFAXIMIN 550 MG TAB PO SCH ×2 (08:21→22:09)
[2019-02-01] MEDS: ASCORBIC ACID 500 MG TAB PO SCH (08:21)
[2019-02-01] MEDS: FUROSEMIDE 20 MG TAB PO SCH (08:23)
[2019-02-01] MEDS: THIAMINE 100 MG TAB PO SCH (08:23)
[2019-02-01] MEDS: AMLODIPINE 5 MG TAB PO SCH ×2 (08:23→22:13)
[2019-02-01 08:24] VITALS: BP 149/68; PULSE 72; RESP 18
[2019-02-01] MEDS: CITRIC ACID/NA CITRATE 30 ML CUP PO SCH ×3 (08:24→22:09)
[2019-02-01] MEDS: BUSPIRONE 10 MG TAB PO SCH ×2 (08:24→22:09)
[2019-02-01] MEDS: LACTULOSE 30ML CUP PO SCH (08:24)
[2019-02-01] MEDS: ALLOPURINOL 100 MG TAB PO SCH (08:24)
[2019-02-01] MEDS: NICOTINE (21 MG/24 HR) PATCH TRANSDERM SCH (08:24)
[2019-02-01] MEDS: ZYVOX 600 MG TAB PO SCH ×2 (08:24→22:08)
[2019-02-01] MEDS: FERROUS SULFATE (EC) 325 MG TAB PO SCH (08:24)
[2019-02-01] MEDS: FAMOTIDINE 20 MG TAB PO SCH ×2 (08:24→22:09)
[2019-02-01] MEDS: GABAPENTIN 100 MG CAP PO SCH ×3 (08:25→21:00)
[2019-02-01] MEDS: LUBIPROSTONE 24 MCG CAP PO SCH ×2 (08:25→22:09)
[2019-02-01] MEDS: METOPROLOL (XL) 50 MG TAB PO SCH (08:25)
[2019-02-01] MEDS: FOLIC ACID 1 MG TAB PO SCH (08:25)
[2019-02-01] MEDS: DORZOLAMIDE/TIMOLOL/PF 0.2 ML DROPERETTE LEFT EYE SCH ×2 (08:26→21:00)
[2019-02-01] MEDS: ARFORMOTEROL TARTRATE 15MCG/2 ML AMP INH SCH ×2 (08:39→21:45)
[2019-02-01] MEDS: BUDESONIDE (NEB) 0.5MG/2ML AMP INH SCH ×2 (08:39→21:45)
--- NOTE | 2019-02-01 11:03 | PN ---
Date/Time of Note Date/Time of Note DATE: 02/01/19 TIME: 11:03 Assessment/Plan VTE Prophylaxis Risk score (from [facility] [place], [place])>0 risk: 3 SCD applied (from Ns): No Lines/Catheters IV Catheter Type (from [facility]): [place] Lock Urinary Cath still in place: No Assessment/Plan Result Diagram: 02/01/19 0611 02/01/19 0611 Results 24hrs Laboratory Tests Test 02/01/19 06:11 White Blood Count 12.3 H Red Blood Count 4.99 Hemoglobin 10.3 L Hematocrit 37.6 L Mean Corpuscular Volume 75.4 L Mean Corpuscular Hemoglobin 20.6 L Mean Corpuscular Hemoglobin Concent 27.4 L Red Cell Distribution Width 21.7 H Platelet Count 193 Mean Platelet Volume Immature Granulocytes % 1.500 H Neutrophils % 54.7 Lymphocytes % 9.7 L Monocytes % 25.4 H Eosinophils % 7.9 H Basophils % 0.8 Nucleated Red Blood Cells % 0.0 Immature Granulocytes # 0.190 H Neutrophils # 6.7 Lymphocytes # 1.2 Monocytes # 3.1 H Eosinophils # 1.0 H Basophils # 0.1 Nucleated Red Blood Cells # 0.0 Sodium Level 141 Potassium Level 4.7 Chloride Level 115 H Carbon Dioxide Level 14 L Anion Gap 12 Blood Urea Nitrogen 34 H Creatinine 1.63 H Est Glomerular Filtrat Rate mL/min 43 L Glucose Level 77 Calcium Level 8.8 Exam/Review of Systems Exam Vitals Vital Signs Date Temp Pulse Resp B/P (MAP) Pulse Ox O2 O2 Flow FiO2 Time Delivery Rate 02/01/19 80 18 95 21 08:40 02/01/19 98.3 149/68 Room Air 08:24 (95) Intake and Output 01/31/19 01/31/19 02/01/19 1515:00 23:00 07:00 IntakeIntake Total 750 ml 450 ml 600 ml OutputOutput Total 500 ml BalanceBalance 250 ml 450 ml 600 ml Results Results 24hrs Laboratory Tests Test 02/01/19 06:11 White Blood Count 12.3 H Red Blood Count 4.99 Hemoglobin 10.3 L Hematocrit 37.6 L Mean Corpuscular Volume 75.4 L Mean Corpuscular Hemoglobin 20.6 L Mean Corpuscular Hemoglobin Concent 27.4 L Red Cell Distribution Width 21.7 H Platelet Count 193 Mean Platelet Volume Immature Granulocytes % 1.500 H Neutrophils % 54.7 Lymphocytes % 9.7 L Monocytes % 25.4 H Eosinophils % 7.9 H Basophils % 0.8 Nucleated Red Blood Cells % 0.0 Immature Granulocytes # 0.190 H Neutrophils # 6.7 Lymphocytes # 1.2 Monocytes # 3.1 H Eosinophils # 1.0 H Basophils # 0.1 Nucleated Red Blood Cells # 0.0 Sodium Level 141 Potassium Level 4.7 Chloride Level 115 H Carbon Dioxide Level 14 L Anion Gap 12 Blood Urea Nitrogen 34 H Creatinine 1.63 H Est Glomerular Filtrat Rate mL/min 43 L Glucose Level 77 Calcium Level 8.8 Medications Medication Current Medications IV Flush (NS 3 ml) 3 ml PER PROTOCOL IV ; Start 01/11/19 at 13:00 Ondansetron HCl (Zofran Inj) 4 mg Q6H PRN IV NAUSEA/VOMITING Last administered on 01/28/19 01:43; Admin Dose 4 MG; Start 01/11/19 at 13:00 Acetaminophen (Tylenol Tab) 650 mg Q6H PRN PO .PAIN 1-3 OR TEMP; Start 01/11/19 at 13:00 Albuterol (Proventil 0.083% (Neb)) 2.5 mg Q6 PRN HHN shortness of breath; Start 01/11/19 at 13:00 Metoprolol Succinate (Toprol Xl) 50 mg DAILY PO Last administered on 02/01/19 08:25; Admin Dose 50 MG; Start 01/12/19 at 09:00 Clonidine (Catapres) 0.1 mg Q6H PRN PO systolic BP > 160 Last administered on 01/12/19at 21:31; Admin Dose 0.1 MG; Start 01/12/19 at 21:00 Levothyroxine Sodium (Synthroid) 225 mcg DAILY@06 PO Last administered on 02/01/19 06:57; Admin Dose 225 MCG; Start 01/13/19 at 06:00 Allopurinol (Zyloprim) 100 mg DAILY PO Last administered on 02/01/19 08:24; Admin Dose 100 MG; Start 01/13/19 at 09:00 Ascorbic Acid (Vitamin C) 500 mg DAILY PO Last administered on 02/01/19 08:21; Admin Dose 500 MG; Start 01/13/19 at 09:00 Docusate Sodium (Colace) 200 mg QHS PO Last administered on 01/31/19 20:21; Admin Dose 200 MG; Start 01/13/19 at 21:00 Epoetin Ghulam-epbx (RETACRIT(non-esrd)) 10,000 unit Q48H SC Last administered on 01/25/19 18:32; Admin Dose 10,000 UNIT; Start 01/13/19 at 18:00; Status Hold Ferrous Sulfate (Ferrous Sulfate (Ec)) 325 mg DAILY PO Last administered on 02/01/19 08:24; Admin Dose 325 MG; Start 01/13/19 at 09:00 Folic Acid (Folic Acid) 1 mg DAILY PO Last administered on 02/01/19 08:25; Admin Dose 1 MG; Start 01/13/19 at 09:00 Gabapentin (Neurontin) 100 mg TID PO Last administered on 01/30/19 20:23; Admin Dose 100 MG; Start 01/13/19 at 09:00 Lorazepam (Ativan) 1 mg BID PRN PO ANXIETY Last administered on 01/14/19 20:36; Admin Dose 1 MG; Start 01/13/19 at 06:30 Rifaximin (Xifaxan) 550 mg BID PO Last administered on 02/01/19 08:21; Admin Dose 550 MG; Start 01/13/19 at 09:00 Tamsulosin HCl (Flomax) 0.4 mg HS PO Last administered on 01/31/19 20:21; Admin Dose 0.4 MG; Start 01/13/19 at 21:00 Thiamine HCl (Vitamin B1) 100 mg DAILY PO Last administered on 02/01/19 08:23; Admin Dose 100 MG; Start 01/13/19 at 09:00 Arformoterol Tartrate (Brovana (Neb)) 2 ml BID RESP THERAPY INH Last administered on 02/01/19 08:39; Admin Dose 2 ML; Start 01/13/19 at 09:00 Budesonide (Pulmicort (Neb)) 0.5 mg Q12H RESP THERAPY INH Last administered on 02/01/19 08:39; Admin Dose 0.5 MG; Start 01/13/19 at 09:00 Nicotine (Nicoderm 21 Mg/ 24hr) 1 patch DAILY TRANSDERM Last administered on 02/01/19 08:24; Admin Dose 1 PATCH; Start 01/14/19 at 09:00 Famotidine (Pepcid) 20 mg Q12 PO Last administered on 02/01/19 08:24; Admin Dose 20 MG; Start 01/13/19 at 21:00 Furosemide (Lasix) 20 mg DAILY PO Last administered on 02/01/19 08:23; Admin Dose 20 MG; Start 01/16/19 at 09:00 Buspirone HCl (Buspar) 10 mg BID PO Last administered on 02/01/19 08:24; Admin Dose 10 MG; Start 01/16/19 at 12:30 Amlodipine Besylate (Norvasc) 5 mg BID PO Last administered on 02/01/19 08:23; Admin Dose 5 MG; Start 01/21/19 at 21:00 Hydromorphone HCl (Dilaudid) 2 mg Q4H PRN IV SEVERE PAIN LEVEL 7-10 Last administered on 02/01/19 06:54; Admin Dose 2 MG; Start 01/25/19 at 14:00 Lorazepam (Ativan) 1 mg Q6H PRN IV ANXIETY Last administered on 02/01/19 09:07; Admin Dose 1 MG; Start 01/25/19 at 14:00 Dorzolamide/ Timolol (Cosopt Pf Eye Drops) 1 drop BID LEFT EYE Last administered on 01/26/19 08:59; Admin Dose 1 DROP; Start 01/26/19 at 09:00 Lactulose (Enulose) 30 gm BID PO Last administered on 02/01/19 08:24; Admin Dose 30 GM; Start 01/26/19 at 09:00 Simethicone (Mylicon) 80 mg Q6 PRN PO bloating; Start 01/26/19 at 07:00 Eye Lubricant (Artificial Tears Oph) 2 drop Q6H PRN BOTH EYES DRY EYES Last administered on 01/28/19 15:23; Admin Dose 2 DROP; Start 01/26/19 at 07:00 Lubiprostone (Amitiza) 24 mcg BID PO Last administered on 02/01/19 08:25; Admin Dose 24 MCG; Start 01/26/19 at 09:00 Linezolid (Zyvox) 600 mg BID PO Last administered on 02/01/19 08:24; Admin Dose 600 MG; Start 01/28/19 at 13:30 Citric Acid/ Sodium Citrate (Bicitra) 30 ml TID PO Last administered on 08:24; Admin Dose 30 ML; Start 01/29/19 at 09:00 Metoprolol Succinate (Toprol Xl) 50 mg HS PO Last administered on 01/31/19 20:24; Admin Dose 50 MG; Start 01/29/19 at 21:00 Polyethylene Glycol (Miralax) 17 gm DAILY PRN PO CONSTIPATION; Start 01/29/19 at 19:30 Oxycodone HCl (Roxicodone) 10 mg Q4H PRN PO MODERATE PAIN LEVEL 4-6 Last administered on 02/01/19 07:58; Admin Dose 10 MG; Start 01/30/19 at 17:30 GO LAMBERT Feb 01, 2019 11:03
--- NOTE | 2019-02-01 12:56 | CONS ---
Assessment/Plan Assessment/Plan Hospital Course (Demo Recall) 63 yo male Interval hx: No acute events. Diarrhea. C/O back pain 1. Microcytic hypochromic anemia, most probably related to iron deficiency. -anemia work up from previous visit last week noted. NEG FOB -EGD done April 2018 showed duodenal ulcer and gastritis -hgb stable -s/p colonoscopy 01/28 2. 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 -US on 01/07 did not ascites 3. Nicotine dependence 4. Congestive heart failure. -EF of 60% 5. Chronic obstructive pulmonary disease. 6. Renal failure. 7. Opioid induced constipation -lactulose, amitiza, miralax PLAN: NH3 Monitor HH DC lactulose, continue amitiza and miralax but hold for diarrhea Pt examined and plan of care discussed with Dr. Casiano Consultation Date/Type/Reason Admit Date/Time Jan 11, 2019 at 09:53 Initial Consult Date 01/11/19 Requesting Provider: KOKO MARLOW MD Date/Time of Note DATE: 02/01/19 TIME: 12:54 Exam/Review of Systems Exam Vitals Vital Signs Date Temp Pulse Resp B/P (MAP) Pulse Ox O2 O2 Flow FiO2 Time Delivery Rate 02/01/19 80 18 95 21 08:40 02/01/19 98.3 149/68 Room Air 08:24 (95) Intake and Output 01/31/19 01/31/19 02/01/19 1515:00 23:00 07:00 IntakeIntake Total 750 ml 450 ml 600 ml OutputOutput Total 500 ml BalanceBalance 250 ml 450 ml 600 ml Constitutional: alert, oriented Psych: depression Head: normocephalic ENMT: mucosa pink and moist Respiratory: normal air movement Gastrointestinal: soft, non-tender, bowel sounds Musculoskeletal: muscle weakness Neurological: nl mental status Results Result Diagram: 02/01/19 0611 02/01/19 0611 Results 24hrs Laboratory Tests Test 02/01/19 06:11 White Blood Count 12.3 H Red Blood Count 4.99 Hemoglobin 10.3 L Hematocrit 37.6 L Mean Corpuscular Volume 75.4 L Mean Corpuscular Hemoglobin 20.6 L Mean Corpuscular Hemoglobin Concent 27.4 L Red Cell Distribution Width 21.7 H Platelet Count 193 Mean Platelet Volume Immature Granulocytes % 1.500 H Neutrophils % 54.7 Lymphocytes % 9.7 L Monocytes % 25.4 H Eosinophils % 7.9 H Basophils % 0.8 Nucleated Red Blood Cells % 0.0 Immature Granulocytes # 0.190 H Neutrophils # 6.7 Lymphocytes # 1.2 Monocytes # 3.1 H Eosinophils # 1.0 H Basophils # 0.1 Nucleated Red Blood Cells # 0.0 Sodium Level 141 Potassium Level 4.7 Chloride Level 115 H Carbon Dioxide Level 14 L Anion Gap 12 Blood Urea Nitrogen 34 H Creatinine 1.63 H Est Glomerular Filtrat Rate mL/min 43 L Glucose Level 77 Calcium Level 8.8 Medications Medication Current Medications IV Flush (NS 3 ml) 3 ml PER PROTOCOL IV ; Start 01/11/19 at 13:00 Ondansetron HCl (Zofran Inj) 4 mg Q6H PRN IV NAUSEA/VOMITING Last administered on 01/28/19 01:43; Admin Dose 4 MG; Start 01/11/19 at 13:00 Acetaminophen (Tylenol Tab) 650 mg Q6H PRN PO .PAIN 1-3 OR TEMP; Start 01/11/19 at 13:00 Albuterol (Proventil 0.083% (Neb)) 2.5 mg Q6 PRN HHN shortness of breath; Start 01/11/19 at 13:00 Metoprolol Succinate (Toprol Xl) 50 mg DAILY PO Last administered on 02/01/19 08:25; Admin Dose 50 MG; Start 01/12/19 at 09:00 Clonidine (Catapres) 0.1 mg Q6H PRN PO systolic BP > 160 Last administered on 01/12/19 21:31; Admin Dose 0.1 MG; Start 01/12/19 at 21:00 Levothyroxine Sodium (Synthroid) 225 mcg DAILY@06 PO Last administered on 02/01/19 06:57; Admin Dose 225 MCG; Start 01/13/19 at 06:00 Allopurinol (Zyloprim) 100 mg DAILY PO Last administered on 02/01/19 08:24; Admin Dose 100 MG; Start 01/13/19 at 09:00 Ascorbic Acid (Vitamin C) 500 mg DAILY PO Last administered on 02/01/19 08:21; Admin Dose 500 MG; Start 01/13/19 at 09:00 Docusate Sodium (Colace) 200 mg QHS PO Last administered on 01/31/19 20:21; Admin Dose 200 MG; Start 01/13/19 at 21:00 Epoetin Ghulam-epbx (RETACRIT(non-esrd)) 10,000 unit Q48H SC Last administered on 01/25/19 18:32; Admin Dose 10,000 UNIT; Start 01/13/19 at 18:00; Status Hold Ferrous Sulfate (Ferrous Sulfate (Ec)) 325 mg DAILY PO Last administered on 02/01/19 08:24; Admin Dose 325 MG; Start 01/13/19 at 09:00 Folic Acid (Folic Acid) 1 mg DAILY PO Last administered on 02/01/19 08:25; Admin Dose 1 MG; Start 01/13/19 at 09:00 Gabapentin (Neurontin) 100 mg TID PO Last administered on 01/30/19 20:23; Admin Dose 100 MG; Start 01/13/19 at 09:00 Lorazepam (Ativan) 1 mg BID PRN PO ANXIETY Last administered on 01/14/19 20:36; Admin Dose 1 MG; Start 01/13/19 at 06:30 Rifaximin (Xifaxan) 550 mg BID PO Last administered on 02/01/19 08:21; Admin Dose 550 MG; Start 01/13/19 at 09:00 Tamsulosin HCl (Flomax) 0.4 mg HS PO Last administered on 01/31/19 20:21; Admin Dose 0.4 MG; Start 01/13/19 at 21:00 Thiamine HCl (Vitamin B1) 100 mg DAILY PO Last administered on 02/01/19 08:23; Admin Dose 100 MG; Start 01/13/19 at 09:00 Arformoterol Tartrate (Brovana (Neb)) 2 ml BID RESP THERAPY INH Last administered on 02/01/19 08:39; Admin Dose 2 ML; Start 01/13/19 at 09:00 Budesonide (Pulmicort (Neb)) 0.5 mg Q12H RESP THERAPY INH Last administered on 02/01/19 08:39; Admin Dose 0.5 MG; Start 01/13/19 at 09:00 Nicotine (Nicoderm 21 Mg/ 24hr) 1 patch DAILY TRANSDERM Last administered on 02/01/19 08:24; Admin Dose 1 PATCH; Start 01/14/19 at 09:00 Famotidine (Pepcid) 20 mg Q12 PO Last administered on 02/01/19 08:24; Admin Dose 20 MG; Start 01/13/19 at 21:00 Furosemide (Lasix) 20 mg DAILY PO Last administered on 02/01/19 08:23; Admin Dose 20 MG; Start 01/16/19 at 09:00 Buspirone HCl (Buspar) 10 mg BID PO Last administered on 02/01/19 08:24; Admin Dose 10 MG; Start 01/16/19 at 12:30 Amlodipine Besylate (Norvasc) 5 mg BID PO Last administered on 02/01/19 08:23; Admin Dose 5 MG; Start 01/21/19 at 21:00 Hydromorphone HCl (Dilaudid) 2 mg Q4H PRN IV SEVERE PAIN LEVEL 7-10 Last administered on 02/01/19 11:16; Admin Dose 2 MG; Start 01/25/19 at 14:00 Lorazepam (Ativan) 1 mg Q6H PRN IV ANXIETY Last administered on 02/01/19 09:07; Admin Dose 1 MG; Start 01/25/19 at 14:00 Dorzolamide/ Timolol (Cosopt Pf Eye Drops) 1 drop BID LEFT EYE Last administered on 01/26/19 08:59; Admin Dose 1 DROP; Start 01/26/19 at 09:00 Lactulose (Enulose) 30 gm BID PO Last administered on 02/01/19 08:24; Admin Dose 30 GM; Start 01/26/19 at 09:00 Simethicone (Mylicon) 80 mg Q6 PRN PO bloating; Start 01/26/19 at 07:00 Eye Lubricant (Artificial Tears Oph) 2 drop Q6H PRN BOTH EYES DRY EYES Last administered on 01/28/19 15:23; Admin Dose 2 DROP; Start 01/26/19 at 07:00 Lubiprostone (Amitiza) 24 mcg BID PO Last administered on 02/01/19 08:25; Admin Dose 24 MCG; Start 01/26/19 at 09:00 Linezolid (Zyvox) 600 mg BID PO Last administered on 02/01/19 08:24; Admin Dose 600 MG; Start 01/28/19 at 13:30 Citric Acid/ Sodium Citrate (Bicitra) 30 ml TID PO Last administered on 02/01/19 12:30; Admin Dose 30 ML; Start 01/29/19 at 09:00 Metoprolol Succinate (Toprol Xl) 50 mg HS PO Last administered on 01/31/19at 20: 24; Admin Dose 50 MG; Start 01/29/19 at 21:00 Polyethylene Glycol (Miralax) 17 gm DAILY PRN PO CONSTIPATION; Start 01/29/19 at 19:30 Oxycodone HCl (Roxicodone) 10 mg Q4H PRN PO MODERATE PAIN LEVEL 4-6 Last administered on 02/01/19at 12:30; Admin Dose 10 MG; Start 01/30/19 at 17:30 DEYVI HAN Feb 01, 2019 12:56
--- NOTE | 2019-02-01 13:11 | CONS ---
Assessment/Plan Assessment/Plan Assessment/Plan (Daily) 1. acute on chronic renal failure due to Type II hepatorenal syndrome 2. SIRS 3. anemia of CKD 5. Decompensated Liver cirrhosis with Symptomatic ascites 6. H/O HTN 7. h/o Liver cirrhosis with ascites 8. H/o Diastolic CHF 9. Bilateral LE chronic venous stasis 10.H/o BPH on Flomax 11. Acute hyperkalemia 12. Metabolic acidosis Plan: BUN/Cr improved to 34/1.63, HCo3 still low 14-despite being on bicitra s/p IV abx Ertapenam,pt is on Zyvox 600mg BID, watch for metabolic Acidosis, pt is already on Bicitra 30ml PO TID, if conitnues to have very low hCo3 despite bicitra, will request ID to cut down or consider alternative agent than zyvox Continue Lasix to 20mg po daily, , , Toprol Xl 50mg BID, amlodipine 5 mg po BID -EGD done April 2018 showed duodenal ulcer and gastritis -s/p colonoscopy 01/28/19 Flomax 0.4mg po daily for BPH will follow up Consultation Date/Type/Reason Admit Date/Time Jan 11, 2019 at 09:53 Initial Consult Date 01/11/19 Type of Consult NEPHROLOGY Requesting Provider: KOKO MARLOW MD Date/Time of Note DATE: 02/01/19 TIME: 13:10 24 HR Interval Summary Free Text/Dictation BUN/Cr improved to 34/1.63, HCo3 still low despite being on bicitra Exam/Review of Systems Exam Vitals Vital Signs Date Temp Pulse Resp B/P (MAP) Pulse Ox O2 O2 Flow FiO2 Time Delivery Rate 02/01/19 80 18 95 21 08:40 02/01/19 98.3 149/68 Room Air 08:24 (95) Intake and Output 01/31/19 01/31/19 02/01/19 1515:00 23:00 07:00 IntakeIntake Total 750 ml 450 ml 600 ml OutputOutput Total 500 ml BalanceBalance 250 ml 450 ml 600 ml Exam Constitutional: alert, well developed, obese Respiratory: diminished breath sounds (at bases bilaterally) Cardiovascular: nl pulses, other (s1s2) Gastrointestinal: soft, non-tender Musculoskeletal: muscle weakness Extremities: normal pulses Neurological: nl speech, other (alert/reponsie) Lymph: nontende Results Result Diagram: 02/01/19 0611 02/01/19 0611 Results 24hrs Laboratory Tests Test 02/01/19 06:11 White Blood Count 12.3 H Red Blood Count 4.99 Hemoglobin 10.3 L Hematocrit 37.6 L Mean Corpuscular Volume 75.4 L Mean Corpuscular Hemoglobin 20.6 L Mean Corpuscular Hemoglobin Concent 27.4 L Red Cell Distribution Width 21.7 H Platelet Count 193 Mean Platelet Volume Immature Granulocytes % 1.500 H Neutrophils % 54.7 Lymphocytes % 9.7 L Monocytes % 25.4 H Eosinophils % 7.9 H Basophils % 0.8 Nucleated Red Blood Cells % 0.0 Immature Granulocytes # 0.190 H Neutrophils # 6.7 Lymphocytes # 1.2 Monocytes # 3.1 H Eosinophils # 1.0 H Basophils # 0.1 Nucleated Red Blood Cells # 0.0 Sodium Level 141 Potassium Level 4.7 Chloride Level 115 H Carbon Dioxide Level 14 L Anion Gap 12 Blood Urea Nitrogen 34 H Creatinine 1.63 H Est Glomerular Filtrat Rate mL/min 43 L Glucose Level 77 Calcium Level 8.8 Medications Medication Current Medications IV Flush (NS 3 ml) 3 ml PER PROTOCOL IV ; Start 01/11/19 at 13:00 Ondansetron HCl (Zofran Inj) 4 mg Q6H PRN IV NAUSEA/VOMITING Last administered on 01/28/19at 01:43; Admin Dose 4 MG; Start 01/11/19 at 13:00 Acetaminophen (Tylenol Tab) 650 mg Q6H PRN PO .PAIN 1-3 OR TEMP; Start 01/11/19 at 13:00 Albuterol (Proventil 0.083% (Neb)) 2.5 mg Q6 PRN HHN shortness of breath; Start 01/11/19 at 13:00 Metoprolol Succinate (Toprol Xl) 50 mg DAILY PO Last administered on 02/01/19at 08:25; Admin Dose 50 MG; Start 01/12/19 at 09:00 Clonidine (Catapres) 0.1 mg Q6H PRN PO systolic BP > 160 Last administered on 01/12/19at 21:31; Admin Dose 0.1 MG; Start 01/12/19 at 21:00 Levothyroxine Sodium (Synthroid) 225 mcg DAILY@06 PO Last administered on 02/01/19 06:57; Admin Dose 225 MCG; Start 01/13/19 at 06:00 Allopurinol (Zyloprim) 100 mg DAILY PO Last administered on 02/01/19 08:24; Admin Dose 100 MG; Start 01/13/19 at 09:00 Ascorbic Acid (Vitamin C) 500 mg DAILY PO Last administered on 02/01/19 08:21; Admin Dose 500 MG; Start 01/13/19 at 09:00 Docusate Sodium (Colace) 200 mg QHS PO Last administered on 01/31/19 20:21; Admin Dose 200 MG; Start 01/13/19 at 21:00 Epoetin Ghulam-epbx (RETACRIT(non-esrd)) 10,000 unit Q48H SC Last administered on 01/25/19 18:32; Admin Dose 10,000 UNIT; Start 01/13/19 at 18:00; Status Hold Ferrous Sulfate (Ferrous Sulfate (Ec)) 325 mg DAILY PO Last administered on 02/01/19 08:24; Admin Dose 325 MG; Start 01/13/19 at 09:00 Folic Acid (Folic Acid) 1 mg DAILY PO Last administered on 02/01/19 08:25; Admin Dose 1 MG; Start 01/13/19 at 09:00 Gabapentin (Neurontin) 100 mg TID PO Last administered on 01/30/19 20:23; Admin Dose 100 MG; Start 01/13/19 at 09:00 Lorazepam (Ativan) 1 mg BID PRN PO ANXIETY Last administered on 01/14/19 20:36; Admin Dose 1 MG; Start 01/13/19 at 06:30 Rifaximin (Xifaxan) 550 mg BID PO Last administered on 02/01/19 08:21; Admin Dose 550 MG; Start 01/13/19 at 09:00 Tamsulosin HCl (Flomax) 0.4 mg HS PO Last administered on 01/31/19 20:21; Admin Dose 0.4 MG; Start 01/13/19 at 21:00 Thiamine HCl (Vitamin B1) 100 mg DAILY PO Last administered on 02/01/19 08:23; Admin Dose 100 MG; Start 01/13/19 at 09:00 Arformoterol Tartrate (Brovana (Neb)) 2 ml BID RESP THERAPY INH Last administered on 02/01/19 08:39; Admin Dose 2 ML; Start 01/13/19 at 09:00 Budesonide (Pulmicort (Neb)) 0.5 mg Q12H RESP THERAPY INH Last administered on 02/01/19 08:39; Admin Dose 0.5 MG; Start 01/13/19 at 09:00 Nicotine (Nicoderm 21 Mg/ 24hr) 1 patch DAILY TRANSDERM Last administered on 02/01/19 08:24; Admin Dose 1 PATCH; Start 01/14/19 at 09:00 Famotidine (Pepcid) 20 mg Q12 PO Last administered on 02/01/19 08:24; Admin Dose 20 MG; Start 01/13/19 at 21:00 Furosemide (Lasix) 20 mg DAILY PO Last administered on 02/01/19 08:23; Admin Dose 20 MG; Start 01/16/19 at 09:00 Buspirone HCl (Buspar) 10 mg BID PO Last administered on 02/01/19 08:24; Admin Dose 10 MG; Start 01/16/19 at 12:30 Amlodipine Besylate (Norvasc) 5 mg BID PO Last administered on 02/01/19 08:23; Admin Dose 5 MG; Start 01/21/19 at 21:00 Hydromorphone HCl (Dilaudid) 2 mg Q4H PRN IV SEVERE PAIN LEVEL 7-10 Last administered on 02/01/19 11:16; Admin Dose 2 MG; Start 01/25/19 at 14:00 Lorazepam (Ativan) 1 mg Q6H PRN IV ANXIETY Last administered on 02/01/19 09:07; Admin Dose 1 MG; Start 01/25/19 at 14:00 Dorzolamide/ Timolol (Cosopt Pf Eye Drops) 1 drop BID LEFT EYE Last administered on 01/26/19 08:59; Admin Dose 1 DROP; Start 01/26/19 at 09:00 Simethicone (Mylicon) 80 mg Q6 PRN PO bloating; Start 01/26/19 at 07:00 Eye Lubricant (Artificial Tears Oph) 2 drop Q6H PRN BOTH EYES DRY EYES Last administered on 01/28/19 15:23; Admin Dose 2 DROP; Start 01/26/19 at 07:00 Lubiprostone (Amitiza) 24 mcg BID PO Last administered on 02/01/19 08:25; Admin Dose 24 MCG; Start 01/26/19 at 09:00 Linezolid (Zyvox) 600 mg BID PO Last administered on 02/01/19 08:24; Admin Dose 600 MG; Start 01/28/19 at 13:30 Citric Acid/ Sodium Citrate (Bicitra) 30 ml TID PO Last administered on 02/01/19 12:30; Admin Dose 30 ML; Start 01/29/19 at 09:00 Metoprolol Succinate (Toprol Xl) 50 mg HS PO Last administered on 01/31/19 20:24; Admin Dose 50 MG; Start 01/29/19 at 21:00 Polyethylene Glycol (Miralax) 17 gm DAILY PRN PO CONSTIPATION; Start 01/29/19 at 19:30 Oxycodone HCl (Roxicodone) 10 mg Q4H PRN PO MODERATE PAIN LEVEL 4-6 Last administered on 02/01/19at 12:30; Admin Dose 10 MG; Start 01/30/19 at 17:30 ELADIO DELGADO MD Feb 01, 2019 13:11
[2019-02-01 14:44] VITALS: BP 144/66; PULSE 78; RESP 18
--- NOTE | 2019-02-01 15:55 | CONS ---
Consult Date/Type/Reason Admit Date/Time Jan 11, 2019 at 09:53 Initial Consult Date 01/12/19 Requesting Provider: KOKO MARLOW MD Date/Time of Note DATE: 02/01/19 TIME: 15:55 Subjective Vs reviewed - stable Objective Vitals Vital Signs Date Temp Pulse Resp B/P (MAP) Pulse Ox O2 O2 Flow FiO2 Time Delivery Rate 02/01/19 98.4 78 18 144/66 96 Room Air 14:44 (92) 02/01/19 21 08:40 Intake and Output 01/31/19 01/31/19 02/01/19 1515:00 23:00 07:00 IntakeIntake Total 750 ml 450 ml 600 ml OutputOutput Total 500 ml BalanceBalance 250 ml 450 ml 600 ml Results/Medications Result Diagram: 02/01/1961002/01/19 0611 Results 24 hrs Laboratory Tests Test 02/01/19 06:11 White Blood Count 12.3 H Red Blood Count 4.99 Hemoglobin 10.3 L Hematocrit 37.6 L Mean Corpuscular Volume 75.4 L Mean Corpuscular Hemoglobin 20.6 L Mean Corpuscular Hemoglobin Concent 27.4 L Red Cell Distribution Width 21.7 H Platelet Count 193 Mean Platelet Volume Immature Granulocytes % 1.500 H Neutrophils % 54.7 Lymphocytes % 9.7 L Monocytes % 25.4 H Eosinophils % 7.9 H Basophils % 0.8 Nucleated Red Blood Cells % 0.0 Immature Granulocytes # 0.190 H Neutrophils # 6.7 Lymphocytes # 1.2 Monocytes # 3.1 H Eosinophils # 1.0 H Basophils # 0.1 Nucleated Red Blood Cells # 0.0 Sodium Level 141 Potassium Level 4.7 Chloride Level 115 H Carbon Dioxide Level 14 L Anion Gap 12 Blood Urea Nitrogen 34 H Creatinine 1.63 H Est Glomerular Filtrat Rate mL/min 43 L Glucose Level 77 Calcium Level 8.8 Home Meds Reported Medications Thiamine* (Vitamin B-1*) 100 Mg Tablet, 100 MG PO DAILY, TAB 01/11/19 Sodium Bicarbonate* (Sodium Bicarbonate*) 325 Mg Tablet, 325 MG PO TID, TAB 01/11/19 Simethicone* (Mylicon*) 80 Mg Tab, 80 MG PO Q6H, TAB 01/11/19 Albuterol Sulfate (Proair Respiclick) 90 Mcg Aer.pow.ba, 2 PUFFS INHALATION Q4H PRN for SHORTNESS OF BREATH, #1 BOTTLE 01/11/19 Pantoprazole* (Pantoprazole*) 40 Mg Tablet.dr, 40 MG PO AC BREAKFAST, TAB 01/11/19 Oxycodone Hcl* (Oxycontin*) 15 Mg Tab.sr.12h, 15 MG PO Q6H PRN for PAIN, TAB 01/11/19 Oxycodone Hcl* (Oxycontin*) 10 Mg Tab.sr.12h, 10 MG PO Q8H PRN for PAIN, TAB 01/11/19 Allopurinol* (Allopurinol*) 100 Mg Tablet, 100 MG PO DAILY, TAB 01/11/19 Rifaximin* (Xifaxan*) 550 Mg Tablet, 550 MG PO BID, TAB 01/11/19 Ondansetron Hcl* (Zofran*) 4 Mg Tab, 4 MG PO Q4H PRN for NAUSEA AND OR VOMITING, TAB 01/11/19 Metoprolol Tartrate* (Lopressor*) 100 Mg Tablet, 100 MG PO DAILY, #60 TAB HOLD FOR SBP<110 OR HR<60 01/11/19 Levothyroxine Sodium* (Levothyroxine Sodium*) 200 Mcg Tablet, 200 MCG PO BEFORE BREAKFAST, #30 TAB 01/11/19 Levothyroxine Sodium* (Levothyroxine Sodium*) 25 Mcg Tablet, 25 MCG PO BEFORE BREAKFAST, #30 TAB 01/11/19 Ipratropium-Albuterol (Ipratropium-Albuterol) 0.5-3 Mg/3 Ml Ampul.neb, 3 ML I NHALATION Q6 PRN for WHEEZING AND SOB, #30 VIAL 01/11/19 Hydrocodone/Acetaminophen ([place] 5-325 Tablet) 1 Each Tablet, 1 EACH PO Q6H PRN for PAIN, TAB 01/11/19 Gabapentin* (Gabapentin*) 100 Mg Capsule, 100 MG PO TID, #90 CAP 01/11/19 Furosemide* (Furosemide*) 40 Mg Tablet, 40 MG PO DAILY, TAB 01/11/19 Folic Acid* (Folic Acid*) 1 Mg Tablet, 1 MG PO DAILY, TAB 01/11/19 Tamsulosin Hcl* (Flomax*) 0.4 Mg Cap.er.24h, 0.4 MG PO HS, CAP 01/11/19 Ferrous Sulfate* (Ferrous Sulfate*) 325 Mg Tabec, 325 MG PO DAILY, TAB 01/11/19 Ertapenem Sodium (Invanz) 1 Gm Vial, 1 GM IM DAILY, VIAL 01/11/19 Epoetin Ghulam (Epogen) 10,000 Units/Ml Soln, 68093 UNITS SC Q TUE,SHARONA,SAT, VIAL 01/11/19 Lactulose* (Lactulose*) 10 Gm/15 Ml Solution, 30 ML PO Q6, ML 01/11/19 Docusate Sodium* (Colace*) 100 Mg Capsule, 200 MG PO QHS, #30 CAP 01/11/19 Dorzolamide-Timolol* (Cosopt*) 2%-0.5% - 10 Ml Soln, 1 DROP BOTH EYES BID, BOTTLE 01/11/19 Budesonide* (Budesonide*) 0.5 Mg/2 Ml Ampul.neb, 0.5 MG INHALATION BID, AMP 01/11/19 Lorazepam* (Lorazepam*) 1 Mg Tablet, 1 MG PO BID PRN for ANXIETY, #30 TAB 01/11/19 Ascorbic Acid (Vitamin C) 500 Mg Tab, 500 MG PO DAILY, TAB 01/11/19 Arformoterol Tartrate (Brovana) 15 Mcg/2 Ml Vial.neb, 15 MCG INHALATION BID, VIAL 01/11/19 Spironolactone* (Aldactone*) 50 Mg Tablet, 50 MG PO DAILY, #30 TAB HOLD FOR SBP<110 01/11/19 Salmeterol Xinaf/Fluticasone* (Advair*) 250-50 Diskus Inhaler, 1 INH INHALATION BID, #1 INHALER 01/11/19 Acetaminophen* (Acetaminophen*) 500 MG Extra Strength Tablet, 500 MG PO Q4H PRN for MILD PAIN LEVEL 1-3, TAB 01/11/19 Medications Current Medications IV Flush (NS 3 ml) 3 ml PER PROTOCOL IV ; Start 01/11/19 at 13:00 Ondansetron HCl (Zofran Inj) 4 mg Q6H PRN IV NAUSEA/VOMITING Last administered on 01/28/19at 01:43; Admin Dose 4 MG; Start 01/11/19 at 13:00 Acetaminophen (Tylenol Tab) 650 mg Q6H PRN PO .PAIN 1-3 OR TEMP; Start 01/11/19 at 13:00 Albuterol (Proventil 0.083% (Neb)) 2.5 mg Q6 PRN HHN shortness of breath; Start 01/11/19 at 13:00 Metoprolol Succinate (Toprol Xl) 50 mg DAILY PO Last administered on 02/01/19 08:25; Admin Dose 50 MG; Start 01/12/19 at 09:00 Clonidine (Catapres) 0.1 mg Q6H PRN PO systolic BP > 160 Last administered on 01/12/19 21:31; Admin Dose 0.1 MG; Start 01/12/19 at 21:00 Levothyroxine Sodium (Synthroid) 225 mcg DAILY@06 PO Last administered on 02/01/19 06:57; Admin Dose 225 MCG; Start 01/13/19 at 06:00 Allopurinol (Zyloprim) 100 mg DAILY PO Last administered on 02/01/19 08:24; Admin Dose 100 MG; Start 01/13/19 at 09:00 Ascorbic Acid (Vitamin C) 500 mg DAILY PO Last administered on 02/01/19 08:21; Admin Dose 500 MG; Start 01/13/19 at 09:00 Docusate Sodium (Colace) 200 mg QHS PO Last administered on 01/31/19 20:21; Admin Dose 200 MG; Start 01/13/19 at 21:00 Epoetin Ghulam-epbx (RETACRIT(non-esrd)) 10,000 unit Q48H SC Last administered on 01/25/19 18:32; Admin Dose 10,000 UNIT; Start 01/13/19 at 18:00; Status Hold Ferrous Sulfate (Ferrous Sulfate (Ec)) 325 mg DAILY PO Last administered on 02/01/19 08:24; Admin Dose 325 MG; Start 01/13/19 at 09:00 Folic Acid (Folic Acid) 1 mg DAILY PO Last administered on 02/01/19 08:25; Admin Dose 1 MG; Start 01/13/19 at 09:00 Gabapentin (Neurontin) 100 mg TID PO Last administered on 01/30/19 20:23; Admin Dose 100 MG; Start 01/13/19 at 09:00 Lorazepam (Ativan) 1 mg BID PRN PO ANXIETY Last administered on 01/14/19 20:36; Admin Dose 1 MG; Start 01/13/19 at 06:30 Rifaximin (Xifaxan) 550 mg BID PO Last administered on 02/01/19 08:21; Admin Dose 550 MG; Start 01/13/19 at 09:00 Tamsulosin HCl (Flomax) 0.4 mg HS PO Last administered on 01/31/19 20:21; Admin Dose 0.4 MG; Start 01/13/19 at 21:00 Thiamine HCl (Vitamin B1) 100 mg DAILY PO Last administered on 02/01/19 08:23; Admin Dose 100 MG; Start 01/13/19 at 09:00 Arformoterol Tartrate (Brovana (Neb)) 2 ml BID RESP THERAPY INH Last administered on 02/01/19 08:39; Admin Dose 2 ML; Start 01/13/19 at 09:00 Budesonide (Pulmicort (Neb)) 0.5 mg Q12H RESP THERAPY INH Last administered on 02/01/19 08:39; Admin Dose 0.5 MG; Start 01/13/19 at 09:00 Nicotine (Nicoderm 21 Mg/ 24hr) 1 patch DAILY TRANSDERM Last administered on 02/01/19 08:24; Admin Dose 1 PATCH; Start 01/14/19 at 09:00 Famotidine (Pepcid) 20 mg Q12 PO Last administered on 02/01/19 08:24; Admin Dose 20 MG; Start 01/13/19 at 21:00 Furosemide (Lasix) 20 mg DAILY PO Last administered on 02/01/19 08:23; Admin Dose 20 MG; Start 01/16/19 at 09:00 Buspirone HCl (Buspar) 10 mg BID PO Last administered on 02/01/19 08:24; Admin Dose 10 MG; Start 01/16/19 at 12:30 Amlodipine Besylate (Norvasc) 5 mg BID PO Last administered on 02/01/19 08:23; Admin Dose 5 MG; Start 01/21/19 at 21:00 Hydromorphone HCl (Dilaudid) 2 mg Q4H PRN IV SEVERE PAIN LEVEL 7-10 Last administered on 02/01/19 15:12; Admin Dose 2 MG; Start 01/25/19 at 14:00 Lorazepam (Ativan) 1 mg Q6H PRN IV ANXIETY Last administered on 02/01/19 09:07; Admin Dose 1 MG; Start 01/25/19 at 14:00 Dorzolamide/ Timolol (Cosopt Pf Eye Drops) 1 drop BID LEFT EYE Last administered on 01/26/19 08:59; Admin Dose 1 DROP; Start 01/26/19 at 09:00 Simethicone (Mylicon) 80 mg Q6 PRN PO bloating; Start 01/26/19 at 07:00 Eye Lubricant (Artificial Tears Oph) 2 drop Q6H PRN BOTH EYES DRY EYES Last administered on 01/28/19 15:23; Admin Dose 2 DROP; Start 01/26/19 at 07:00 Lubiprostone (Amitiza) 24 mcg BID PO Last administered on 02/01/19 08:25; Admin Dose 24 MCG; Start 01/26/19 at 09:00 Linezolid (Zyvox) 600 mg BID PO Last administered on 02/01/19 08:24; Admin Dose 600 MG; Start 01/28/19 at 13:30 Citric Acid/ Sodium Citrate (Bicitra) 30 ml TID PO Last administered on 02/01/19 12:30; Admin Dose 30 ML; Start 01/29/19 at 09:00 Metoprolol Succinate (Toprol Xl) 50 mg HS PO Last administered on 01/31/19 20:24; Admin Dose 50 MG; Start 01/29/19 at 21:00 Polyethylene Glycol (Miralax) 17 gm DAILY PRN PO CONSTIPATION; Start 01/29/19 at 19:30 Oxycodone HCl (Roxicodone) 10 mg Q4H PRN PO MODERATE PAIN LEVEL 4-6 Last administered on 02/01/19 12:30; Admin Dose 10 MG; Start 01/30/19 at 17:30 Assessment/Plan Hospital Course (Demo Recall) 1. Congestive heart failure exacerbation, diastolic, acute on chronic - con't diuresis, better now - con't diuresis, better now - much better overall - con't Rx - much better overall. 2. Hypertension - well controlled, con't med rx Reasonably controlled. In good range now. 3. Shortness of breath secondary to congestive heart failure exacerbation, diastolic, acute on chronic - improved with therapy. Con't Rx. Better 4. Chronic renal failure - good urine output now. Better output now. 5. Cirrhosis - on meds. Better fluid satus overall. Lost weight. 6. Ascites, recurrent. 7. Hypothyroidism. 8. History of ETOH abuse- avoid hepatotoxic meds. D/C advised. 9. Anemia - H/H stable - no bleeding now. Stable now. NO bleeding now. 10. Infection - on anti-Bx now. HALEY LIRIANO MD Feb 01, 2019 15:55
[2019-02-01 20:38] VITALS: BP 157/69; PULSE 80; RESP 18
[2019-02-01] MEDS: DOCUSATE SODIUM 100 MG CAP PO SCH (22:08)
[2019-02-01] MEDS: TAMSULOSIN (SR) 0.4 MG CAP PO SCH (22:09)
[2019-02-01] MEDS: METOPROLOL (XL) 25 MG TAB PO SCH (22:14)
[2019-02-01] MEDS: ARTIFICIAL TEARS 15 ML OPH BOTH EYES PRN (22:14)
[2019-02-02 02:00] VITALS: BP 150/70; PULSE 74; RESP 18
[2019-02-02] MEDS: HYDROmorphONE 2 MG/ML SYG IV PRN ×5 (04:05→21:07)
[2019-02-02] MEDS: oxyCODONE 5 MG TAB PO PRN ×3 (05:00→19:15)
[2019-02-02] MEDS: LEVOTHYROXINE 75 MCG TAB PO SCH (06:17)
[2019-02-02] MEDS: LORAZEPAM 2 MG INJ IV PRN ×3 (06:22→23:03)
[2019-02-02 08:00] VITALS: BP 147/67; PULSE 67; RESP 18
[2019-02-02] MEDS: BUDESONIDE (NEB) 0.5MG/2ML AMP INH SCH ×2 (08:00→19:34)
[2019-02-02] MEDS: ARFORMOTEROL TARTRATE 15MCG/2 ML AMP INH SCH ×2 (08:07→19:33)
[2019-02-02] MEDS: RIFAXIMIN 550 MG TAB PO SCH ×2 (08:45→20:54)
[2019-02-02] MEDS: FAMOTIDINE 20 MG TAB PO SCH ×2 (08:45→20:54)
[2019-02-02] MEDS: THIAMINE 100 MG TAB PO SCH (08:46)
[2019-02-02] MEDS: FERROUS SULFATE (EC) 325 MG TAB PO SCH (08:46)
[2019-02-02] MEDS: ALLOPURINOL 100 MG TAB PO SCH (08:46)
[2019-02-02] MEDS: ASCORBIC ACID 500 MG TAB PO SCH (08:46)
[2019-02-02] MEDS: FUROSEMIDE 20 MG TAB PO SCH (08:46)
[2019-02-02] MEDS: METOPROLOL (XL) 50 MG TAB PO SCH (08:46)
[2019-02-02] MEDS: LUBIPROSTONE 24 MCG CAP PO SCH ×2 (08:46→21:07)
[2019-02-02] MEDS: AMLODIPINE 5 MG TAB PO SCH ×2 (08:47→20:57)
[2019-02-02] MEDS: BUSPIRONE 10 MG TAB PO SCH ×2 (08:47→20:54)
[2019-02-02] MEDS: FOLIC ACID 1 MG TAB PO SCH (08:47)
[2019-02-02] MEDS: ZYVOX 600 MG TAB PO SCH ×2 (08:47→20:54)
[2019-02-02] MEDS: NICOTINE (21 MG/24 HR) PATCH TRANSDERM SCH (08:47)
[2019-02-02] MEDS: DORZOLAMIDE/TIMOLOL/PF 0.2 ML DROPERETTE LEFT EYE SCH ×2 (08:48→21:00)
[2019-02-02] MEDS: GABAPENTIN 100 MG CAP PO SCH ×3 (08:48→20:54)
[2019-02-02] MEDS: CITRIC ACID/NA CITRATE 30 ML CUP PO SCH ×3 (08:48→20:57)
--- NOTE | 2019-02-02 08:56 | CONS ---
Assessment/Plan Assessment/Plan Hospital Course (Demo Recall) 63 yo male Interval hx: No acute events. Diarrhea. C/O back pain 1. Microcytic hypochromic anemia, most probably related to iron deficiency. -anemia work up from previous visit last week noted. NEG FOB -EGD done April 2018 showed duodenal ulcer and gastritis -hgb stable -s/p colonoscopy 01/28 2. 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 -US on 01/07 did not ascites 3. Nicotine dependence 4. Congestive heart failure. -EF of 60% 5. Chronic obstructive pulmonary disease. 6. Renal failure. 7. Opioid induced constipation -lactulose, amitiza, miralax PLAN: Monitor HH DC lactulose, continue amitiza and miralax but hold for diarrhea Pt examined and plan of care discussed with Dr. Casiano Consultation Date/Type/Reason Admit Date/Time Jan 11, 2019 at 09:53 Initial Consult Date 01/11/19 Requesting Provider: KOKO MARLOW MD Date/Time of Note DATE: 02/02/19 TIME: 08:55 Exam/Review of Systems Exam Vitals Vital Signs Date Temp Pulse Resp B/P (MAP) Pulse Ox O2 O2 Flow FiO2 Time Delivery Rate 02/02/19 97.6 67 18 147/67 100 08:00 (93) 02/01/19 Room Air 14:44 02/01/19 21 08:40 Intake and Output 02/01/19 02/01/19 02/02/19 1515:00 23:00 07:00 IntakeIntake Total 900 ml 360 ml OutputOutput Total 1200 ml 200 ml 300 ml BalanceBalance -300 ml 160 ml -300 ml Constitutional: alert, oriented Psych: depression Head: normocephalic Eyes: PERRL Respiratory: normal air movement Gastrointestinal: soft, non-tender, bowel sounds Musculoskeletal: muscle weakness Neurological: nl mental status Results Result Diagram: 02/02/19 0610 02/02/19 0610 Results 24hrs Laboratory Tests Test 02/02/19 06:10 White Blood Count 12.4 H Red Blood Count 5.37 Hemoglobin 11.0 L Hematocrit 39.6 L Mean Corpuscular Volume 73.7 L Mean Corpuscular Hemoglobin 20.5 L Mean Corpuscular Hemoglobin Concent 27.8 L Red Cell Distribution Width 22.1 H Platelet Count 182 Mean Platelet Volume Immature Granulocytes % 2.100 H Neutrophils % Lymphocytes % Monocytes % Eosinophils % Basophils % Nucleated Red Blood Cells % 0.2 H Immature Granulocytes # 0.260 H Neutrophils # Lymphocytes # Monocytes # Eosinophils # Basophils # Nucleated Red Blood Cells # Sodium Level 143 Potassium Level 5.0 Chloride Level 113 H Carbon Dioxide Level 21 Anion Gap 9 Blood Urea Nitrogen 35 H Creatinine 1.66 H Est Glomerular Filtrat Rate mL/min 42 L Glucose Level 76 Calcium Level 9.2 Ammonia 25 Medications Medication Current Medications IV Flush (NS 3 ml) 3 ml PER PROTOCOL IV ; Start 01/11/19 at 13:00 Ondansetron HCl (Zofran Inj) 4 mg Q6H PRN IV NAUSEA/VOMITING Last administered on 01/28/19 01:43; Admin Dose 4 MG; Start 01/11/19 at 13:00 Acetaminophen (Tylenol Tab) 650 mg Q6H PRN PO .PAIN 1-3 OR TEMP; Start 01/11/19 at 13:00 Albuterol (Proventil 0.083% (Neb)) 2.5 mg Q6 PRN HHN shortness of breath; Start 01/11/19 at 13:00 Metoprolol Succinate (Toprol Xl) 50 mg DAILY PO Last administered on 02/02/19 08:46; Admin Dose 50 MG; Start 01/12/19 at 09:00 Clonidine (Catapres) 0.1 mg Q6H PRN PO systolic BP > 160 Last administered on 01/12/19 21:31; Admin Dose 0.1 MG; Start 01/12/19 at 21:00 Levothyroxine Sodium (Synthroid) 225 mcg DAILY@06 PO Last administered on 02/02/19 06:17; Admin Dose 225 MCG; Start 01/13/19 at 06:00 Allopurinol (Zyloprim) 100 mg DAILY PO Last administered on 02/02/19 08:46; Admin Dose 100 MG; Start 01/13/19 at 09:00 Ascorbic Acid (Vitamin C) 500 mg DAILY PO Last administered on 02/02/19 08:46; Admin Dose 500 MG; Start 01/13/19 at 09:00 Docusate Sodium (Colace) 200 mg QHS PO Last administered on 02/01/19 22:08; Admin Dose 200 MG; Start 01/13/19 at 21:00 Epoetin Ghulam-epbx (RETACRIT(non-esrd)) 10,000 unit Q48H SC Last administered on 01/25/19 18:32; Admin Dose 10,000 UNIT; Start 01/13/19 at 18:00; Status Hold Ferrous Sulfate (Ferrous Sulfate (Ec)) 325 mg DAILY PO Last administered on 02/02/19 08:46; Admin Dose 325 MG; Start 01/13/19 at 09:00 Folic Acid (Folic Acid) 1 mg DAILY PO Last administered on 02/02/19 08:47; Admin Dose 1 MG; Start 01/13/19 at 09:00 Gabapentin (Neurontin) 100 mg TID PO Last administered on 01/30/19 20:23; Admin Dose 100 MG; Start 01/13/19 at 09:00 Lorazepam (Ativan) 1 mg BID PRN PO ANXIETY Last administered on 01/14/19 20:36; Admin Dose 1 MG; Start 01/13/19 at 06:30 Rifaximin (Xifaxan) 550 mg BID PO Last administered on 02/02/19 08:45; Admin Dose 550 MG; Start 01/13/19 at 09:00 Tamsulosin HCl (Flomax) 0.4 mg HS PO Last administered on 02/01/19 22:09; Admin Dose 0.4 MG; Start 01/13/19 at 21:00 Thiamine HCl (Vitamin B1) 100 mg DAILY PO Last administered on 02/02/19 08:46; Admin Dose 100 MG; Start 01/13/19 at 09:00 Arformoterol Tartrate (Brovana (Neb)) 2 ml BID RESP THERAPY INH Last administered on 02/01/19 08:39; Admin Dose 2 ML; Start 01/13/19 at 09:00 Budesonide (Pulmicort (Neb)) 0.5 mg Q12H RESP THERAPY INH Last administered on 02/01/19 08:39; Admin Dose 0.5 MG; Start 01/13/19 at 09:00 Nicotine (Nicoderm 21 Mg/ 24hr) 1 patch DAILY TRANSDERM Last administered on 02/02/19 08:47; Admin Dose 1 PATCH; Start 01/14/19 at 09:00 Famotidine (Pepcid) 20 mg Q12 PO Last administered on 02/02/19 08:45; Admin Do se 20 MG; Start 01/13/19 at 21:00 Furosemide (Lasix) 20 mg DAILY PO Last administered on 02/02/19 08:46; Admin Dose 20 MG; Start 01/16/19 at 09:00 Buspirone HCl (Buspar) 10 mg BID PO Last administered on 02/02/19 08:47; Admin Dose 10 MG; Start 01/16/19 at 12:30 Amlodipine Besylate (Norvasc) 5 mg BID PO Last administered on 02/02/19 08:47; Admin Dose 5 MG; Start 01/21/19 at 21:00 Hydromorphone HCl (Dilaudid) 2 mg Q4H PRN IV SEVERE PAIN LEVEL 7-10 Last administered on 02/02/19 04:05; Admin Dose 2 MG; Start 01/25/19 at 14:00 Lorazepam (Ativan) 1 mg Q6H PRN IV ANXIETY Last administered on 02/02/19 06:22; Admin Dose 1 MG; Start 01/25/19 at 14:00 Dorzolamide/ Timolol (Cosopt Pf Eye Drops) 1 drop BID LEFT EYE Last administered on 01/26/19 08:59; Admin Dose 1 DROP; Start 01/26/19 at 09:00 Simethicone (Mylicon) 80 mg Q6 PRN PO bloating; Start 01/26/19 at 07:00 Eye Lubricant (Artificial Tears Oph) 2 drop Q6H PRN BOTH EYES DRY EYES Last administered on 02/01/19 22:14; Admin Dose 2 DROP; Start 01/26/19 at 07:00 Lubiprostone (Amitiza) 24 mcg BID PO Last administered on 02/02/19 08:46; Admin Dose 24 MCG; Start 01/26/19 at 09:00 Linezolid (Zyvox) 600 mg BID PO Last administered on 02/02/19 08:47; Admin Dose 600 MG; Start 01/28/19 at 13:30 Citric Acid/ Sodium Citrate (Bicitra) 30 ml TID PO Last administered on 02/02/19 08:48; Admin Dose 30 ML; Start 01/29/19 at 09:00 Metoprolol Succinate (Toprol Xl) 50 mg HS PO Last administered on 02/01/19at 22:14; Admin Dose 50 MG; Start 01/29/19 at 21:00 Polyethylene Glycol (Miralax) 17 gm DAILY PRN PO CONSTIPATION; Start 01/29/19 a t 19:30 Oxycodone HCl (Roxicodone) 10 mg Q4H PRN PO MODERATE PAIN LEVEL 4-6 Last administered on 02/02/19at 05:00; Admin Dose 10 MG; Start 01/30/19 at 17:30 DEYVI HAN Feb 02, 2019 08:56
--- NOTE | 2019-02-02 13:14 | CONS ---
Assessment/Plan Assessment/Plan Hospital Course (Demo Recall) IMPRESSION: 1. Congestive heart failure exacerbation, diastolic, acute on chronic. 2. Hypertension-reasonable on current regimen 3. Shortness of breath secondary to congestive heart failure exacerbation, diastolic, acute on chronic. 4. Chronic renal failure. 5. Cirrhosis. 6. Ascites, recurrent. 7. Hypothyroidism. 8. History of ETOH abuse. 9. Anemia s/p endoscopy. ? results 10.leukocytosis REcc: -ON med-surg -serial ecg's -Contineu lasix and follow volume status closely and ascites -aldactone d/c'd secondary to elevated K -Continue toprol and CCB at current doses and follow reasonable BP closely -Give miralax for constipation -pain control -Continue abx's and f/u cx data -ID following Consultation Date/Type/Reason Admit Date/Time Jan 11, 2019 at 09:53 Initial Consult Date 01/12/19 Type of Consult Cardiology Reason for Consultation CHF Requesting Provider: KOKO MARLOW MD Date/Time of Note DATE: 02/02/19 TIME: 13:12 Exam/Review of Systems Vital Signs Vitals Vital Signs Date Temp Pulse Resp B/P (MAP) Pulse Ox O2 O2 Flow FiO2 Time Delivery Rate 02/02/19 97.6 67 18 147/67 100 08:00 (93) 02/01/19 Room Air 14:44 02/01/19 21 08:40 Intake and Output 02/01/19 02/01/19 02/02/19 1515:00 23:00 07:00 IntakeIntake Total 900 ml 360 ml OutputOutput Total 1200 ml 200 ml 300 ml BalanceBalance -300 ml 160 ml -300 ml Exam Exam Review of Systems: CONSTITUTIONAL: No fevers, chills. PULMONARY: No sob CARDIOVASCULAR: No chest pain/palpitations GASTROINTESTINAL: No nausea/vomiting. GENITOURINARY: No hematuria/dysuria. MUSCULOSKELETAL:c/o back pain PSYCHIATRIC: The patient denies depression. NEUROLOGIC: No weakness Constitutional: alert Psych: no complaints Head: normocephalic ENMT: mucosa pink and moist Neck: supple, jvd (9 cm water) Respiratory: diminished breath sounds (at bases/B) Cardiovascular: regular rate and rhythm Gastrointestinal: soft, non-tender Musculoskeletal: muscle tone (normal) Extremities: pitting pedal edema (trace bilateral with chronic venous stasis changes) Neurological: other (No focal deficits) Labs Result Diagram: 02/02/19 0610 02/02/19 0610 Results 24hrs Laboratory Tests Test 02/02/19 06:04 02/02/19 06:10 Thyroid Stimulating Hormone (TSH) 11.600 H White Blood Count 12.4 H Red Blood Count 5.37 Hemoglobin 11.0 L Hematocrit 39.6 L Mean Corpuscular Volume 73.7 L Mean Corpuscular Hemoglobin 20.5 L Mean Corpuscular Hemoglobin Concent 27.8 L Red Cell Distribution Width 22.1 H Platelet Count 182 Mean Platelet Volume Immature Granulocytes % 2.100 H Neutrophils % Segmented Neutrophils % (Manual) 51 Band Neutrophils % (Manual) 2 Lymphocytes % Lymphocytes % (Manual) 10 L Reactive Lymphocytes % (Manual) 2 H Monocytes % Monocytes % (Manual) 23 H Eosinophils % Eosinophils % (Manual) 10 H Basophils % Metamyelocytes % (manual) 2 H Nucleated Red Blood Cells % 0.2 H Immature Granulocytes # 0.260 H Neutrophils # Neutrophils # (Manual) 6.3 Band Neutrophils # 0.2 Lymphocytes (Manual) 1.2 Lymphocytes # Reactive Lymphocytes # 0.2 H Monocytes # Monocytes # (Manual) 2.8 H Eosinophils # Basophils # Metamyelocytes # 0.2 H Nucleated Red Blood Cells # Platelet Estimate NORMAL Giant Platelets 1 H Polychromasia 3+ Hypochromasia 3+ Poikilocytosis 2+ Anisocytosis 2+ Microcytosis 2+ Ovalocytes 1+ Sodium Level 143 Potassium Level 5.0 Chloride Level 113 H Carbon Dioxide Level 21 Anion Gap 9 Blood Urea Nitrogen 35 H Creatinine 1.66 H Est Glomerular Filtrat Rate mL/min 42 L Glucose Level 76 Calcium Level 9.2 Ammonia 25 Medications Medications Current Medications IV Flush (NS 3 ml) 3 ml PER PROTOCOL IV ; Start 01/11/19 at 13:00 Ondansetron HCl (Zofran Inj) 4 mg Q6H PRN IV NAUSEA/VOMITING Last administered on 01/28/19at 01:43; Admin Dose 4 MG; Start 01/11/19 at 13:00 Acetaminophen (Tylenol Tab) 650 mg Q6H PRN PO .PAIN 1-3 OR TEMP; Start 01/11/19 at 13:00 Albuterol (Proventil 0.083% (Neb)) 2.5 mg Q6 PRN HHN shortness of breath; Start 01/11/19 at 13:00 Metoprolol Succinate (Toprol Xl) 50 mg DAILY PO Last administered on 02/02/19 08:46; Admin Dose 50 MG; Start 01/12/19 at 09:00 Clonidine (Catapres) 0.1 mg Q6H PRN PO systolic BP > 160 Last administered on 01/12/19 21:31; Admin Dose 0.1 MG; Start 01/12/19 at 21:00 Levothyroxine Sodium (Synthroid) 225 mcg DAILY@06 PO Last administered on 02/02/19 06:17; Admin Dose 225 MCG; Start 01/13/19 at 06:00 Allopurinol (Zyloprim) 100 mg DAILY PO Last administered on 02/02/19 08:46; Admin Dose 100 MG; Start 01/13/19 at 09:00 Ascorbic Acid (Vitamin C) 500 mg DAILY PO Last administered on 02/02/19 08:46; Admin Dose 500 MG; Start 01/13/19 at 09:00 Docusate Sodium (Colace) 200 mg QHS PO Last administered on 02/01/19 22:08; Admin Dose 200 MG; Start 01/13/19 at 21:00 Epoetin Ghulam-epbx (RETACRIT(non-esrd)) 10,000 unit Q48H SC Last administered on 01/25/19 18:32; Admin Dose 10,000 UNIT; Start 01/13/19 at 18:00; Status Hold Ferrous Sulfate (Ferrous Sulfate (Ec)) 325 mg DAILY PO Last administered on 02/02/19 08:46; Admin Dose 325 MG; Start 01/13/19 at 09:00 Folic Acid (Folic Acid) 1 mg DAILY PO Last administered on 02/02/19 08:47; Admin Dose 1 MG; Start 01/13/19 at 09:00 Gabapentin (Neurontin) 100 mg TID PO Last administered on 01/30/19 20:23; Admin Dose 100 MG; Start 01/13/19 at 09:00 Lorazepam (Ativan) 1 mg BID PRN PO ANXIETY Last administered on 01/14/19 20:36; Admin Dose 1 MG; Start 01/13/19 at 06:30 Rifaximin (Xifaxan) 550 mg BID PO Last administered on 02/02/19 08:45; Admin Dose 550 MG; Start 01/13/19 at 09:00 Tamsulosin HCl (Flomax) 0.4 mg HS PO Last administered on 02/01/19 22:09; Admin Dose 0.4 MG; Start 01/13/19 at 21:00 Thiamine HCl (Vitamin B1) 100 mg DAILY PO Last administered on 02/02/19 08:46; Admin Dose 100 MG; Start 01/13/19 at 09:00 Arformoterol Tartrate (Brovana (Neb)) 2 ml BID RESP THERAPY INH Last administered on 02/01/19 08:39; Admin Dose 2 ML; Start 01/13/19 at 09:00 Budesonide (Pulmicort (Neb)) 0.5 mg Q12H RESP THERAPY INH Last administered on 02/01/19 08:39; Admin Dose 0.5 MG; Start 01/13/19 at 09:00 Nicotine (Nicoderm 21 Mg/ 24hr) 1 patch DAILY TRANSDERM Last administered on 02/02/19 08:47; Admin Dose 1 PATCH; Start 01/14/19 at 09:00 Famotidine (Pepcid) 20 mg Q12 PO Last administered on 02/02/19 08:45; Admin Dose 20 MG; Start 01/13/19 at 21:00 Furosemide (Lasix) 20 mg DAILY PO Last administered on 02/02/19 08:46; Admin Dose 20 MG; Start 01/16/19 at 09:00 Buspirone HCl (Buspar) 10 mg BID PO Last administered on 02/02/19 08:47; Admin Dose 10 MG; Start 01/16/19 at 12:30 Amlodipine Besylate (Norvasc) 5 mg BID PO Last administered on 02/02/19 08:47; Admin Dose 5 MG; Start 01/21/19 at 21:00 Hydromorphone HCl (Dilaudid) 2 mg Q4H PRN IV SEVERE PAIN LEVEL 7-10 Last administered on 02/02/19 12:54; Admin Dose 2 MG; Start 01/25/19 at 14:00 Lorazepam (Ativan) 1 mg Q6H PRN IV ANXIETY Last administered on 02/02/19 06:22; Admin Dose 1 MG; Start 01/25/19 at 14:00 Dorzolamide/ Timolol (Cosopt Pf Eye Drops) 1 drop BID LEFT EYE Last administered on 01/26/19 08:59; Admin Dose 1 DROP; Start 01/26/19 at 09:00 Simethicone (Mylicon) 80 mg Q6 PRN PO bloating; Start 01/26/19 at 07:00 Eye Lubricant (Artificial Tears Oph) 2 drop Q6H PRN BOTH EYES DRY EYES Last administered on 02/01/19 22:14; Admin Dose 2 DROP; Start 01/26/19 at 07:00 Lubiprostone (Amitiza) 24 mcg BID PO Last administered on 02/02/19 08:46; Admin Dose 24 MCG; Start 01/26/19 at 09:00 Linezolid (Zyvox) 600 mg BID PO Last administered on 02/02/19 08:47; Admin Dose 600 MG; Start 01/28/19 at 13:30 Citric Acid/ Sodium Citrate (Bicitra) 30 ml TID PO Last administered on 02/02/19 12:17; Admin Dose 30 ML; Start 01/29/19 at 09:00 Metoprolol Succinate (Toprol Xl) 50 mg HS PO Last administered on 02/01/19 22:14; Admin Dose 50 MG; Start 01/29/19 at 21:00 Polyethylene Glycol (Miralax) 17 gm DAILY PRN PO CONSTIPATION; Start 01/29/19 at 19:30 Oxycodone HCl (Roxicodone) 10 mg Q4H PRN PO MODERATE PAIN LEVEL 4-6 Last admini stered on 02/02/19 10:02; Admin Dose 10 MG; Start 01/30/19 at 17:30 DUSTY CANTU Feb 02, 2019 13:14
--- NOTE | 2019-02-02 13:56 | CONS ---
Assessment/Plan Assessment/Plan Hospital Course (Demo Recall) No acute changes, no fevers Antimicrobials: Zyvox Physical examination: This is a wasted well-developed chronically ill-appearing elderly man who is in no distress. Head atraumatic normocephalic sclera nonicteric. Neck is supple chest rise symmetrical breath sounds diminished bases. Heart: S1-S2. Abdomen soft bowel sounds present. Extremities without BLE edema, mild erythema, no cyanosis. Assessment: 1. Systemic inflammatory response syndrome with ongoing leukocytosis, clinically stable 2. S/p COPD exacerbation 3. Alcohol abuse 4. Bilateral lower extremities acute on chronic cellulitis/chronic venous stasis 5. Cirrhosis with recurrent ascites 6. Chronic kidney disease 7. CHF 8. Noncompliance 9. Anemia/gastritis/esophagitis per EGD Plan: Remains unchanged, stable, GI rec-s noted, continue on Zyvox for 5 days Consultation Date/Type/Reason Admit Date/Time Jan 11, 2019 at 09:53 Initial Consult Date Type of Consult id Requesting Provider: KOKO MARLOW MD Date/Time of Note DATE: 02/02/19 TIME: 13:55 Exam/Review of Systems Exam Vitals Vital Signs Date Temp Pulse Resp B/P (MAP) Pulse Ox O2 O2 Flow FiO2 Time Delivery Rate 02/02/19 97.6 67 18 147/67 100 08:00 (93) 02/01/19 Room Air 14:44 02/01/19 21 08:40 Intake and Output 02/01/19 02/01/19 02/02/19 1515:00 23:00 07:00 IntakeIntake Total 900 ml 360 ml OutputOutput Total 1200 ml 200 ml 300 ml BalanceBalance -300 ml 160 ml -300 ml Results Result Diagram: 02/02/19 0610 02/02/19 0610 Results 24hrs Laboratory Tests Test 02/02/19 06:04 02/02/19 06:10 Thyroid Stimulating Hormone (TSH) 11.600 H White Blood Count 12.4 H Red Blood Count 5.37 Hemoglobin 11.0 L Hematocrit 39.6 L Mean Corpuscular Volume 73.7 L Mean Corpuscular Hemoglobin 20.5 L Mean Corpuscular Hemoglobin Concent 27.8 L Red Cell Distribution Width 22.1 H Platelet Count 182 Mean Platelet Volume Immature Granulocytes % 2.100 H Neutrophils % Segmented Neutrophils % (Manual) 51 Band Neutrophils % (Manual) 2 Lymphocytes % Lymphocytes % (Manual) 10 L Reactive Lymphocytes % (Manual) 2 H Monocytes % Monocytes % (Manual) 23 H Eosinophils % Eosinophils % (Manual) 10 H Basophils % Metamyelocytes % (manual) 2 H Nucleated Red Blood Cells % 0.2 H Immature Granulocytes # 0.260 H Neutrophils # Neutrophils # (Manual) 6.3 Band Neutrophils # 0.2 Lymphocytes (Manual) 1.2 Lymphocytes # Reactive Lymphocytes # 0.2 H Monocytes # Monocytes # (Manual) 2.8 H Eosinophils # Basophils # Metamyelocytes # 0.2 H Nucleated Red Blood Cells # Platelet Estimate NORMAL Giant Platelets 1 H Polychromasia 3+ Hypochromasia 3+ Poikilocytosis 2+ Anisocytosis 2+ Microcytosis 2+ Ovalocytes 1+ Sodium Level 143 Potassium Level 5.0 Chloride Level 113 H Carbon Dioxide Level 21 Anion Gap 9 Blood Urea Nitrogen 35 H Creatinine 1.66 H Est Glomerular Filtrat Rate mL/min 42 L Glucose Level 76 Calcium Level 9.2 Ammonia 25 Medications Medication Current Medications IV Flush (NS 3 ml) 3 ml PER PROTOCOL IV ; Start 01/11/19 at 13:00 Ondansetron HCl (Zofran Inj) 4 mg Q6H PRN IV NAUSEA/VOMITING Last administered on 01/28/19at 01:43; Admin Dose 4 MG; Start 01/11/19 at 13:00 Acetaminophen (Tylenol Tab) 650 mg Q6H PRN PO .PAIN 1-3 OR TEMP; Start 01/11/19 at 13:00 Albuterol (Proventil 0.083% (Neb)) 2.5 mg Q6 PRN HHN shortness of breath; Start 01/11/19 at 13:00 Metoprolol Succinate (Toprol Xl) 50 mg DAILY PO Last administered on 02/02/19at 08:46; Admin Dose 50 MG; Start 01/12/19 at 09:00 Clonidine (Catapres) 0.1 mg Q6H PRN PO systolic BP > 160 Last administered on 01/12/19at 21:31; Admin Dose 0.1 MG; Start 01/12/19 at 21:00 Levothyroxine Sodium (Synthroid) 225 mcg DAILY@06 PO Last administered on 02/02/19at 06:17; Admin Dose 225 MCG; Start 01/13/19 at 06:00 Allopurinol (Zyloprim) 100 mg DAILY PO Last administered on 02/02/19 08:46; Admin Dose 100 MG; Start 01/13/19 at 09:00 Ascorbic Acid (Vitamin C) 500 mg DAILY PO Last administered on 02/02/19 08:46; Admin Dose 500 MG; Start 01/13/19 at 09:00 Docusate Sodium (Colace) 200 mg QHS PO Last administered on 02/01/19 22:08; Admin Dose 200 MG; Start 01/13/19 at 21:00 Epoetin Ghulam-epbx (RETACRIT(non-esrd)) 10,000 unit Q48H SC Last administered on 01/25/19 18:32; Admin Dose 10,000 UNIT; Start 01/13/19 at 18:00; Status Hold Ferrous Sulfate (Ferrous Sulfate (Ec)) 325 mg DAILY PO Last administered on 02/02/19 08:46; Admin Dose 325 MG; Start 01/13/19 at 09:00 Folic Acid (Folic Acid) 1 mg DAILY PO Last administered on 02/02/19 08:47; Admin Dose 1 MG; Start 01/13/19 at 09:00 Gabapentin (Neurontin) 100 mg TID PO Last administered on 01/30/19 20:23; Admin Dose 100 MG; Start 01/13/19 at 09:00 Lorazepam (Ativan) 1 mg BID PRN PO ANXIETY Last administered on 01/14/19 20:36; Admin Dose 1 MG; Start 01/13/19 at 06:30 Rifaximin (Xifaxan) 550 mg BID PO Last administered on 02/02/19 08:45; Admin Dose 550 MG; Start 01/13/19 at 09:00 Tamsulosin HCl (Flomax) 0.4 mg HS PO Last administered on 02/01/19 22:09; Admin Dose 0.4 MG; Start 01/13/19 at 21:00 Thiamine HCl (Vitamin B1) 100 mg DAILY PO Last administered on 02/02/19 08:46; Admin Dose 100 MG; Start 01/13/19 at 09:00 Arformoterol Tartrate (Brovana (Neb)) 2 ml BID RESP THERAPY INH Last administered on 02/01/19 08:39; Admin Dose 2 ML; Start 01/13/19 at 09:00 Budesonide (Pulmicort (Neb)) 0.5 mg Q12H RESP THERAPY INH Last administered on 02/01/19 08:39; Admin Dose 0.5 MG; Start 01/13/19 at 09:00 Nicotine (Nicoderm 21 Mg/ 24hr) 1 patch DAILY TRANSDERM Last administered on 02/02/19 08:47; Admin Dose 1 PATCH; Start 01/14/19 at 09:00 Famotidine (Pepcid) 20 mg Q12 PO Last administered on 02/02/19 08:45; Admin Dose 20 MG; Start 01/13/19 at 21:00 Furosemide (Lasix) 20 mg DAILY PO Last administered on 02/02/19 08:46; Admin Dose 20 MG; Start 01/16/19 at 09:00 Buspirone HCl (Buspar) 10 mg BID PO Last administered on 02/02/19 08:47; Admin Dose 10 MG; Start 01/16/19 at 12:30 Amlodipine Besylate (Norvasc) 5 mg BID PO Last administered on 02/02/19 08:47; Admin Dose 5 MG; Start 01/21/19 at 21:00 Hydromorphone HCl (Dilaudid) 2 mg Q4H PRN IV SEVERE PAIN LEVEL 7-10 Last administered on 02/02/19 12:54; Admin Dose 2 MG; Start 01/25/19 at 14:00 Lorazepam (Ativan) 1 mg Q6H PRN IV ANXIETY Last administered on 02/02/19 06:2 2; Admin Dose 1 MG; Start 01/25/19 at 14:00 Dorzolamide/ Timolol (Cosopt Pf Eye Drops) 1 drop BID LEFT EYE Last administered on 01/26/19 08:59; Admin Dose 1 DROP; Start 01/26/19 at 09:00 Simethicone (Mylicon) 80 mg Q6 PRN PO bloating; Start 01/26/19 at 07:00 Eye Lubricant (Artificial Tears Oph) 2 drop Q6H PRN BOTH EYES DRY EYES Last administered on 02/01/19 22:14; Admin Dose 2 DROP; Start 01/26/19 at 07:00 Lubiprostone (Amitiza) 24 mcg BID PO Last administered on 02/02/19at 08:46; Admin Dose 24 MCG; Start 01/26/19 at 09:00 Linezolid (Zyvox) 600 mg BID PO Last administered on 02/02/19at 08:47; Admin Dose 600 MG; Start 01/28/19 at 13:30 Citric Acid/ Sodium Citrate (Bicitra) 30 ml TID PO Last administered on 02/02/19at 12:17; Admin Dose 30 ML; Start 01/29/19 at 09:00 Metoprolol Succinate (Toprol Xl) 50 mg HS PO Last administered on 02/01/19at 22:14; Admin Dose 50 MG; Start 01/29/19 at 21:00 Polyethylene Glycol (Miralax) 17 gm DAILY PRN PO CONSTIPATION; Start 01/29/19 at 19:30 Oxycodone HCl (Roxicodone) 10 mg Q4H PRN PO MODERATE PAIN LEVEL 4-6 Last administered on 02/02/19at 10:02; Admin Dose 10 MG; Start 01/30/19 at 17:30 MELISSA NASH NP Feb 02, 2019 13:56
[2019-02-02 14:20] VITALS: BP 151/69; PULSE 60; RESP 18
--- NOTE | 2019-02-02 15:47 | CONS ---
Assessment/Plan Assessment/Plan Assessment/Plan (Daily) 1. acute on chronic renal failure due to Type II hepatorenal syndrome 2. SIRS 3. anemia of CKD 5. Decompensated Liver cirrhosis with Symptomatic ascites 6. H/O HTN 7. h/o Liver cirrhosis with ascites 8. H/o Diastolic CHF 9. Bilateral LE chronic venous stasis 10.H/o BPH on Flomax 11. Acute hyperkalemia 12. Metabolic acidosis Plan: BUN/Cr improved to 35/1.66, K 5.0, HCo3 improved to 21 s/p IV abx Ertapenam,pt is on Zyvox 600mg BID, watch for metabolic Acidosis, pt is already on Bicitra 30ml PO TID, if conitnues to have very low hCo3 despite bicitra, will request ID to cut down or consider alternative agent than zyvox Continue Lasix to 20mg po daily, , , Toprol Xl 50mg BID, amlodipine 5 mg po BID -EGD done April 2018 showed duodenal ulcer and gastritis -s/p colonoscopy 01/28/19 Flomax 0.4mg po daily for BPH will follow up Consultation Date/Type/Reason Admit Date/Time Jan 11, 2019 at 09:53 Initial Consult Date 01/11/19 Type of Consult NEPHROLOGY Requesting Provider: KOKO MARLOW MD Date/Time of Note DATE: 02/02/19 TIME: 15:46 Exam/Review of Systems Exam Vitals Vital Signs Date Temp Pulse Resp B/P (MAP) Pulse Ox O2 O2 Flow FiO2 Time Delivery Rate 02/02/19 97.8 60 18 151/69 98 Room Air 14:20 (96) 02/01/19 21 08:40 Intake and Output 02/01/19 02/01/19 02/02/19 1515:00 23:00 07:00 IntakeIntake Total 900 ml 360 ml OutputOutput Total 1200 ml 200 ml 300 ml BalanceBalance -300 ml 160 ml -300 ml Exam Constitutional: alert, well developed, obese Respiratory: diminished breath sounds (at bases bilaterally) Cardiovascular: nl pulses, other (s1s2) Gastrointestinal: soft, non-tender Musculoskeletal: muscle weakness Extremities: normal pulses Neurological: nl speech, other (alert/reponsie) Lymph: nontende Results Result Diagram: 02/02/19 0610 02/02/19 0610 Results 24hrs Laboratory Tests Test 02/02/19 06:04 02/02/19 06:10 Thyroid Stimulating Hormone (TSH) 11.600 H White Blood Count 12.4 H Red Blood Count 5.37 Hemoglobin 11.0 L Hematocrit 39.6 L Mean Corpuscular Volume 73.7 L Mean Corpuscular Hemoglobin 20.5 L Mean Corpuscular Hemoglobin Concent 27.8 L Red Cell Distribution Width 22.1 H Platelet Count 182 Mean Platelet Volume Immature Granulocytes % 2.100 H Neutrophils % Segmented Neutrophils % (Manual) 51 Band Neutrophils % (Manual) 2 Lymphocytes % Lymphocytes % (Manual) 10 L Reactive Lymphocytes % (Manual) 2 H Monocytes % Monocytes % (Manual) 23 H Eosinophils % Eosinophils % (Manual) 10 H Basophils % Metamyelocytes % (manual) 2 H Nucleated Red Blood Cells % 0.2 H Immature Granulocytes # 0.260 H Neutrophils # Neutrophils # (Manual) 6.3 Band Neutrophils # 0.2 Lymphocytes (Manual) 1.2 Lymphocytes # Reactive Lymphocytes # 0.2 H Monocytes # Monocytes # (Manual) 2.8 H Eosinophils # Basophils # Metamyelocytes # 0.2 H Nucleated Red Blood Cells # Platelet Estimate NORMAL Giant Platelets 1 H Polychromasia 3+ Hypochromasia 3+ Poikilocytosis 2+ Anisocytosis 2+ Microcytosis 2+ Ovalocytes 1+ Sodium Level 143 Potassium Level 5.0 Chloride Level 113 H Carbon Dioxide Level 21 Anion Gap 9 Blood Urea Nitrogen 35 H Creatinine 1.66 H Est Glomerular Filtrat Rate mL/min 42 L Glucose Level 76 Calcium Level 9.2 Ammonia 25 Medications Medication Current Medications IV Flush (NS 3 ml) 3 ml PER PROTOCOL IV ; Start 01/11/19 at 13:00 Ondansetron HCl (Zofran Inj) 4 mg Q6H PRN IV NAUSEA/VOMITING Last administered on 01/28/19at 01:43; Admin Dose 4 MG; Start 01/11/19 at 13:00 Acetaminophen (Tylenol Tab) 650 mg Q6H PRN PO .PAIN 1-3 OR TEMP; Start 01/11/19 at 13:00 Albuterol (Proventil 0.083% (Neb)) 2.5 mg Q6 PRN HHN shortness of breath; Start 01/11/19 at 13:00 Metoprolol Succinate (Toprol Xl) 50 mg DAILY PO Last administered on 02/02/19 08:46; Admin Dose 50 MG; Start 01/12/19 at 09:00 Clonidine (Catapres) 0.1 mg Q6H PRN PO systolic BP > 160 Last administered on 01/12/19 21:31; Admin Dose 0.1 MG; Start 01/12/19 at 21:00 Levothyroxine Sodium (Synthroid) 225 mcg DAILY@06 PO Last administered on 02/02/19 06:17; Admin Dose 225 MCG; Start 01/13/19 at 06:00 Allopurinol (Zyloprim) 100 mg DAILY PO Last administered on 02/02/19 08:46; Admin Dose 100 MG; Start 01/13/19 at 09:00 Ascorbic Acid (Vitamin C) 500 mg DAILY PO Last administered on 02/02/19 08:46; Admin Dose 500 MG; Start 01/13/19 at 09:00 Docusate Sodium (Colace) 200 mg QHS PO Last administered on 02/01/19 22:08; Admin Dose 200 MG; Start 01/13/19 at 21:00 Epoetin Ghulam-epbx (RETACRIT(non-esrd)) 10,000 unit Q48H SC Last administered on 01/25/19 18:32; Admin Dose 10,000 UNIT; Start 01/13/19 at 18:00; Status Hold Ferrous Sulfate (Ferrous Sulfate (Ec)) 325 mg DAILY PO Last administered on 02/02/19 08:46; Admin Dose 325 MG; Start 01/13/19 at 09:00 Folic Acid (Folic Acid) 1 mg DAILY PO Last administered on 02/02/19 08:47; Admin Dose 1 MG; Start 01/13/19 at 09:00 Gabapentin (Neurontin) 100 mg TID PO Last administered on 01/30/19 20:23; Admin Dose 100 MG; Start 01/13/19 at 09:00 Lorazepam (Ativan) 1 mg BID PRN PO ANXIETY Last administered on 01/14/19 20:36; Admin Dose 1 MG; Start 01/13/19 at 06:30 Rifaximin (Xifaxan) 550 mg BID PO Last administered on 02/02/19 08:45; Admin Dose 550 MG; Start 01/13/19 at 09:00 Tamsulosin HCl (Flomax) 0.4 mg HS PO Last administered on 02/01/19 22:09; Admin Dose 0.4 MG; Start 01/13/19 at 21:00 Thiamine HCl (Vitamin B1) 100 mg DAILY PO Last administered on 02/02/19 08:46; Admin Dose 100 MG; Start 01/13/19 at 09:00 Arformoterol Tartrate (Brovana (Neb)) 2 ml BID RESP THERAPY INH Last administered on 02/01/19 08:39; Admin Dose 2 ML; Start 01/13/19 at 09:00 Budesonide (Pulmicort (Neb)) 0.5 mg Q12H RESP THERAPY INH Last administered on 02/01/19 08:39; Admin Dose 0.5 MG; Start 01/13/19 at 09:00 Nicotine (Nicoderm 21 Mg/ 24hr) 1 patch DAILY TRANSDERM Last administered on 02/02/19 08:47; Admin Dose 1 PATCH; Start 01/14/19 at 09:00 Famotidine (Pepcid) 20 mg Q12 PO Last administered on 02/02/19 08:45; Admin Dose 20 MG; Start 01/13/19 at 21:00 Furosemide (Lasix) 20 mg DAILY PO Last administered on 02/02/19 08:46; Admin Dose 20 MG; Start 01/16/19 at 09:00 Buspirone HCl (Buspar) 10 mg BID PO Last administered on 02/02/19 08:47; Admin Dose 10 MG; Start 01/16/19 at 12:30 Amlodipine Besylate (Norvasc) 5 mg BID PO Last administered on 02/02/19 08:47; Admin Dose 5 MG; Start 01/21/19 at 21:00 Hydromorphone HCl (Dilaudid) 2 mg Q4H PRN IV SEVERE PAIN LEVEL 7-10 Last administered on 02/02/19 12:54; Admin Dose 2 MG; Start 01/25/19 at 14:00 Lorazepam (Ativan) 1 mg Q6H PRN IV ANXIETY Last administered on 02/02/19 13:54; Admin Dose 1 MG; Start 01/25/19 at 14:00 Dorzolamide/ Timolol (Cosopt Pf Eye Drops) 1 drop BID LEFT EYE Last administered on 01/26/19 08:59; Admin Dose 1 DROP; Start 01/26/19 at 09:00 Simethicone (Mylicon) 80 mg Q6 PRN PO bloating; Start 01/26/19 at 07:00 Eye Lubricant (Artificial Tears Oph) 2 drop Q6H PRN BOTH EYES DRY EYES Last administered on 02/01/19 22:14; Admin Dose 2 DROP; Start 01/26/19 at 07:00 Lubiprostone (Amitiza) 24 mcg BID PO Last administered on 02/02/19 08:46; Admin Dose 24 MCG; Start 01/26/19 at 09:00 Linezolid (Zyvox) 600 mg BID PO Last administered on 02/02/19 08:47; Admin Dose 600 MG; Start 01/28/19 at 13:30 Citric Acid/ Sodium Citrate (Bicitra) 30 ml TID PO Last administered on 02/02/19 12:17; Admin Dose 30 ML; Start 01/29/19 at 09:00 Metoprolol Succinate (Toprol Xl) 50 mg HS PO Last administered on 02/01/19 22:14; Admin Dose 50 MG; Start 01/29/19 at 21:00 Polyethylene Glycol (Miralax) 17 gm DAILY PRN PO CONSTIPATION; Start 01/29/19 at 19:30 Oxycodone HCl (Roxicodone) 10 mg Q4H PRN PO MODERATE PAIN LEVEL 4-6 Last administered on 02/02/19 10:02; Admin Dose 10 MG; Start 01/30/19 at 17:30 ELADIO DELGADO MD Feb 02, 2019 15:46
--- NOTE | 2019-02-02 19:46 | PN ---
Date/Time of Note Date/Time of Note DATE: 02/02/19 TIME: 19:45 Assessment/Plan VTE Prophylaxis Risk score (from Nsg)>0 risk: 3 SCD applied (from Nsg): No Lines/Catheters IV Catheter Type (from Nrsg): Saline Lock Urinary Cath still in place: No Assessment/Plan Assessment/Plan - Hyperkalemia-resolved -Shortness of breath, rule out acute coronary syndrome, cardiac enzymes are negative x3. -Acute on chronic diastolic congestive heart failure. Continue Lasix. Dr. Foley is following in cardiology consultation. -COPD exacerbation, continue bronchodilators, steroids, and oxygen supplementation. -Anemia, Dr. Mayes is following in gastroenterology consultation. -Alcoholic liver cirrhosis -Acute kidney injury on chronic kidney disease. Dr. Leung is following in nephrology consultation. -Bilateral lower extremities chronic venous stasis -Left foot plantar ulcer. Dr. Younger is following in podiatry consultation. -Obesity -Nicotine dependence, continue nicotine patch, cessation is strongly advised. -Ongoing alcohol use, cessation is strongly advised. -Poor medical compliance -Chronic pain- [facility] pain management consult w/Dr Oneil Result Diagram: 02/02/19 0610 02/02/19 0610 Results 24hrs Laboratory Tests Test 02/02/19 06:04 02/02/19 06:10 Thyroid Stimulating Hormone (TSH) 11.600 H White Blood Count 12.4 H Red Blood Count 5.37 Hemoglobin 11.0 L Hematocrit 39.6 L Mean Corpuscular Volume 73.7 L Mean Corpuscular Hemoglobin 20.5 L Mean Corpuscular Hemoglobin Concent 27.8 L Red Cell Distribution Width 22.1 H Platelet Count 182 Mean Platelet Volume Immature Granulocytes % 2.100 H Neutrophils % Segmented Neutrophils % (Manual) 51 Band Neutrophils % (Manual) 2 Lymphocytes % Lymphocytes % (Manual) 10 L Reactive Lymphocytes % (Manual) 2 H Monocytes % Monocytes % (Manual) 23 H Eosinophils % Eosinophils % (Manual) 10 H Basophils % Metamyelocytes % (manual) 2 H Nucleated Red Blood Cells % 0.2 H Immature Granulocytes # 0.260 H Neutrophils # Neutrophils # (Manual) 6.3 Band Neutrophils # 0.2 Lymphocytes (Manual) 1.2 Lymphocytes # Reactive Lymphocytes # 0.2 H Monocytes # Monocytes # (Manual) 2.8 H Eosinophils # Basophils # Metamyelocytes # 0.2 H Nucleated Red Blood Cells # Platelet Estimate NORMAL Giant Platelets 1 H Polychromasia 3+ Hypochromasia 3+ Poikilocytosis 2+ Anisocytosis 2+ Microcytosis 2+ Ovalocytes 1+ Sodium Level 143 Potassium Level 5.0 Chloride Level 113 H Carbon Dioxide Level 21 Anion Gap 9 Blood Urea Nitrogen 35 H Creatinine 1.66 H Est Glomerular Filtrat Rate mL/min 42 L Glucose Level 76 Calcium Level 9.2 Ammonia 25 Subjective 24 Hr Interval Summary Free Text/Dictation feels better effective pain control Exam/Review of Systems Exam Vitals Vital Signs Date Temp Pulse Resp B/P (MAP) Pulse Ox O2 O2 Flow FiO2 Time Delivery Rate 02/02/19 87 18 96 21 19:34 02/02/19 97.8 151/69 Room Air 14:20 (96) Intake and Output 02/01/19 02/01/19 02/02/19 1515:00 23:00 07:00 IntakeIntake Total 900 ml 360 ml OutputOutput Total 1200 ml 200 ml 300 ml BalanceBalance -300 ml 160 ml -300 ml Results Results 24hrs Laboratory Tests Test 02/02/19 06:04 02/02/19 06:10 Thyroid Stimulating Hormone (TSH) 11.600 H White Blood Count 12.4 H Red Blood Count 5.37 Hemoglobin 11.0 L Hematocrit 39.6 L Mean Corpuscular Volume 73.7 L Mean Corpuscular Hemoglobin 20.5 L Mean Corpuscular Hemoglobin Concent 27.8 L Red Cell Distribution Width 22.1 H Platelet Count 182 Mean Platelet Volume Immature Granulocytes % 2.100 H Neutrophils % Segmented Neutrophils % (Manual) 51 Band Neutrophils % (Manual) 2 Lymphocytes % Lymphocytes % (Manual) 10 L Reactive Lymphocytes % (Manual) 2 H Monocytes % Monocytes % (Manual) 23 H Eosinophils % Eosinophils % (Manual) 10 H Basophils % Metamyelocytes % (manual) 2 H Nucleated Red Blood Cells % 0.2 H Immature Granulocytes # 0.260 H Neutrophils # Neutrophils # (Manual) 6.3 Band Neutrophils # 0.2 Lymphocytes (Manual) 1.2 Lymphocytes # Reactive Lymphocytes # 0.2 H Monocytes # Monocytes # (Manual) 2.8 H Eosinophils # Basophils # Metamyelocytes # 0.2 H Nucleated Red Blood Cells # Platelet Estimate NORMAL Giant Platelets 1 H Polychromasia 3+ Hypochromasia 3+ Poikilocytosis 2+ Anisocytosis 2+ Microcytosis 2+ Ovalocytes 1+ Sodium Level 143 Potassium Level 5.0 Chloride Level 113 H Carbon Dioxide Level 21 Anion Gap 9 Blood Urea Nitrogen 35 H Creatinine 1.66 H Est Glomerular Filtrat Rate mL/min 42 L Glucose Level 76 Calcium Level 9.2 Ammonia 25 Medications Medication Current Medications IV Flush (NS 3 ml) 3 ml PER PROTOCOL IV ; Start 01/11/19 at 13:00 Ondansetron HCl (Zofran Inj) 4 mg Q6H PRN IV NAUSEA/VOMITING Last administered on 01/28/19 01:43; Admin Dose 4 MG; Start 01/11/19 at 13:00 Acetaminophen (Tylenol Tab) 650 mg Q6H PRN PO .PAIN 1-3 OR TEMP; Start 01/11/19 at 13:00 Albuterol (Proventil 0.083% (Neb)) 2.5 mg Q6 PRN HHN shortness of breath; Start 01/11/19 at 13:00 Metoprolol Succinate (Toprol Xl) 50 mg DAILY PO Last administered on 02/02/19 08:46; Admin Dose 50 MG; Start 01/12/19 at 09:00 Clonidine (Catapres) 0.1 mg Q6H PRN PO systolic BP > 160 Last administered on 01/12/19 21:31; Admin Dose 0.1 MG; Start 01/12/19 at 21:00 Levothyroxine Sodium (Synthroid) 225 mcg DAILY@06 PO Last administered on 02/02/19 06:17; Admin Dose 225 MCG; Start 01/13/19 at 06:00 Allopurinol (Zyloprim) 100 mg DAILY PO Last administered on 02/02/19 08:46; Admin Dose 100 MG; Start 01/13/19 at 09:00 Ascorbic Acid (Vitamin C) 500 mg DAILY PO Last administered on 02/02/19 08:46; Admin Dose 500 MG; Start 01/13/19 at 09:00 Docusate Sodium (Colace) 200 mg QHS PO Last administered on 02/01/19 22:08; Admin Dose 200 MG; Start 01/13/19 at 21:00 Epoetin Ghulam-epbx (RETACRIT(non-esrd)) 10,000 unit Q48H SC Last administered on 01/25/19 18:32; Admin Dose 10,000 UNIT; Start 01/13/19 at 18:00; Status Hold Ferrous Sulfate (Ferrous Sulfate (Ec)) 325 mg DAILY PO Last administered on 02/02/19 08:46; Admin Dose 325 MG; Start 01/13/19 at 09:00 Folic Acid (Folic Acid) 1 mg DAILY PO Last administered on 02/02/19 08:47; Admin Dose 1 MG; Start 01/13/19 at 09:00 Gabapentin (Neurontin) 100 mg TID PO Last administered on 01/30/19 20:23; Admin Dose 100 MG; Start 01/13/19 at 09:00 Lorazepam (Ativan) 1 mg BID PRN PO ANXIETY Last administered on 01/14/19 20:36; Admin Dose 1 MG; Start 01/13/19 at 06:30 Rifaximin (Xifaxan) 550 mg BID PO Last administered on 02/02/19 08:45; Admin Dose 550 MG; Start 01/13/19 at 09:00 Tamsulosin HCl (Flomax) 0.4 mg HS PO Last administered on 02/01/19 22:09; Admin Dose 0.4 MG; Start 01/13/19 at 21:00 Thiamine HCl (Vitamin B1) 100 mg DAILY PO Last administered on 02/02/19 08:46; Admin Dose 100 MG; Start 01/13/19 at 09:00 Arformoterol Tartrate (Brovana (Neb)) 2 ml BID RESP THERAPY INH Last administered on 02/02/19 19:33; Admin Dose 2 ML; Start 01/13/19 at 09:00 Budesonide (Pulmicort (Neb)) 0.5 mg Q12H RESP THERAPY INH Last administered on 02/02/19 19:34; Admin Dose 0.5 MG; Start 01/13/19 at 09:00 Nicotine (Nicoderm 21 Mg/ 24hr) 1 patch DAILY TRANSDERM Last administered on 02/02/19 08:47; Admin Dose 1 PATCH; Start 01/14/19 at 09:00 Famotidine (Pepcid) 20 mg Q12 PO Last administered on 02/02/19 08:45; Admin Dose 20 MG; Start 01/13/19 at 21:00 Furosemide (Lasix) 20 mg DAILY PO Last administered on 02/02/19 08:46; Admin Dose 20 MG; Start 01/16/19 at 09:00 Buspirone HCl (Buspar) 10 mg BID PO Last administered on 02/02/19 08:47; Admin Dose 10 MG; Start 01/16/19 at 12:30 Amlodipine Besylate (Norvasc) 5 mg BID PO Last administered on 02/02/19 08:47; Admin Dose 5 MG; Start 01/21/19 at 21:00 Hydromorphone HCl (Dilaudid) 2 mg Q4H PRN IV SEVERE PAIN LEVEL 7-10 Last administered on 02/02/19 17:02; Admin Dose 2 MG; Start 01/25/19 at 14:00 Lorazepam (Ativan) 1 mg Q6H PRN IV ANXIETY Last administered on 02/02/19 13:54; Admin Dose 1 MG; Start 01/25/19 at 14:00 Dorzolamide/ Timolol (Cosopt Pf Eye Drops) 1 drop BID LEFT EYE Last ad ministered on 01/26/19 08:59; Admin Dose 1 DROP; Start 01/26/19 at 09:00 Simethicone (Mylicon) 80 mg Q6 PRN PO bloating; Start 01/26/19 at 07:00 Eye Lubricant (Artificial Tears Oph) 2 drop Q6H PRN BOTH EYES DRY EYES Last administered on 02/01/19 22:14; Admin Dose 2 DROP; Start 01/26/19 at 07:00 Lubiprostone (Amitiza) 24 mcg BID PO Last administered on 02/02/19 08:46; Admin Dose 24 MCG; Start 01/26/19 at 09:00 Linezolid (Zyvox) 600 mg BID PO Last administered on 02/02/19 08:47; Admin Dose 600 MG; Start 01/28/19 at 13:30 Citric Acid/ Sodium Citrate (Bicitra) 30 ml TID PO Last administered on 02/02/19 12:17; Admin Dose 30 ML; Start 01/29/19 at 09:00 Metoprolol Succinate (Toprol Xl) 50 mg HS PO Last administered on 02/01/19 22:14; Admin Dose 50 MG; Start 01/29/19 at 21:00 Polyethylene Glycol (Miralax) 17 gm DAILY PRN PO CONSTIPATION; Start 01/29/19 at 19:30 Oxycodone HCl (Roxicodone) 10 mg Q4H PRN PO MODERATE PAIN LEVEL 4-6 Last administered on 02/02/19at 19:15; Admin Dose 10 MG; Start 01/30/19 at 17:30 GO LAMBERT Feb 02, 2019 19:46
[2019-02-02 20:00] VITALS: BP 159/76; PULSE 70; RESP 18
[2019-02-02] MEDS: TAMSULOSIN (SR) 0.4 MG CAP PO SCH (20:54)
[2019-02-02] MEDS: DOCUSATE SODIUM 100 MG CAP PO SCH (20:54)
[2019-02-02] MEDS: METOPROLOL (XL) 25 MG TAB PO SCH (20:56)
[2019-02-02] MEDS: POLYETHYLENE GLYCOL 17 GM PACKET PO PRN (21:15)
[2019-02-03 02:00] VITALS: BP 145/74; PULSE 73; RESP 18
[2019-02-03] MEDS: HYDROmorphONE 2 MG/ML SYG IV PRN ×5 (02:15→21:26)
[2019-02-03] MEDS: LEVOTHYROXINE 125 MCG TAB PO SCH (05:31)
[2019-02-03] MEDS: oxyCODONE 5 MG TAB PO PRN ×4 (05:31→20:36)
--- NOTE | 2019-02-03 06:07 | PN ---
Date/Time of Note Date/Time of Note DATE: 02/03/19 TIME: 06:07 Assessment/Plan VTE Prophylaxis Risk score (from Nsg)>0 risk: 3 SCD applied (from Nsg): No Lines/Catheters IV Catheter Type (from Nrsg): Saline Lock Urinary Cath still in place: No Assessment/Plan Assessment/Plan -Shortness of breath, rule out acute coronary syndrome, cardiac enzymes are negative x3. -Acute on chronic diastolic congestive heart failure. Continue Lasix. Dr. Foley is following in cardiology consultation. -COPD exacerbation, continue bronchodilators, steroids, and oxygen supplementation. -Anemia, Dr. Mayes is following in gastroenterology consultation. -Alcoholic liver cirrhosis -Acute kidney injury on chronic kidney disease. Dr. Leung is following in nephrology consultation. -Bilateral lower extremities chronic venous stasis -Left foot plantar ulcer. Dr. Younger is following in podiatry consultation. -Obesity -Nicotine dependence, continue nicotine patch, cessation is strongly advised. -Ongoing alcohol use, cessation is strongly advised. -Poor medical compliance -Chronic pain- [facility] get pain management consult w/Dr Oneil Result Diagram: 02/02/19 0610 02/02/19 0610 Results 24hrs Laboratory Tests Test 02/02/19 06:10 White Blood Count 12.4 H Red Blood Count 5.37 Hemoglobin 11.0 L Hematocrit 39.6 L Mean Corpuscular Volume 73.7 L Mean Corpuscular Hemoglobin 20.5 L Mean Corpuscular Hemoglobin Concent 27.8 L Red Cell Distribution Width 22.1 H Platelet Count 182 Mean Platelet Volume Immature Granulocytes % 2.100 H Neutrophils % Segmented Neutrophils % (Manual) 51 Band Neutrophils % (Manual) 2 Lymphocytes % Lymphocytes % (Manual) 10 L Reactive Lymphocytes % (Manual) 2 H Monocytes % Monocytes % (Manual) 23 H Eosinophils % Eosinophils % (Manual) 10 H Basophils % Metamyelocytes % (manual) 2 H Nucleated Red Blood Cells % 0.2 H Immature Granulocytes # 0.260 H Neutrophils # Neutrophils # (Manual) 6.3 Band Neutrophils # 0.2 Lymphocytes (Manual) 1.2 Lymphocytes # Reactive Lymphocytes # 0.2 H Monocytes # Monocytes # (Manual) 2.8 H Eosinophils # Basophils # Metamyelocytes # 0.2 H Nucleated Red Blood Cells # Platelet Estimate NORMAL Giant Platelets 1 H Polychromasia 3+ Hypochromasia 3+ Poikilocytosis 2+ Anisocytosis 2+ Microcytosis 2+ Ovalocytes 1+ Sodium Level 143 Potassium Level 5.0 Chloride Level 113 H Carbon Dioxide Level 21 Anion Gap 9 Blood Urea Nitrogen 35 H Creatinine 1.66 H Est Glomerular Filtrat Rate mL/min 42 L Glucose Level 76 Calcium Level 9.2 Ammonia 25 Exam/Review of Systems Exam Vitals Vital Signs Date Temp Pulse Resp B/P (MAP) Pulse Ox O2 O2 Flow FiO2 Time Delivery Rate 02/03/19 98.2 73 18 145/74 97 02:00 (97) 02/02/19 21 19:34 02/02/19 Room Air 14:20 Intake and Output 02/02/19 02/02/19 02/03/19 1515:00 23:00 07:00 IntakeIntake Total 800 ml BalanceBalance 800 ml Results Results 24hrs Laboratory Tests Test 02/02/19 06:10 White Blood Count 12.4 H Red Blood Count 5.37 Hemoglobin 11.0 L Hematocrit 39.6 L Mean Corpuscular Volume 73.7 L Mean Corpuscular Hemoglobin 20.5 L Mean Corpuscular Hemoglobin Concent 27.8 L Red Cell Distribution Width 22.1 H Platelet Count 182 Mean Platelet Volume Immature Granulocytes % 2.100 H Neutrophils % Segmented Neutrophils % (Manual) 51 Band Neutrophils % (Manual) 2 Lymphocytes % Lymphocytes % (Manual) 10 L Reactive Lymphocytes % (Manual) 2 H Monocytes % Monocytes % (Manual) 23 H Eosinophils % Eosinophils % (Manual) 10 H Basophils % Metamyelocytes % (manual) 2 H Nucleated Red Blood Cells % 0.2 H Immature Granulocytes # 0.260 H Neutrophils # Neutrophils # (Manual) 6.3 Band Neutrophils # 0.2 Lymphocytes (Manual) 1.2 Lymphocytes # Reactive Lymphocytes # 0.2 H Monocytes # Monocytes # (Manual) 2.8 H Eosinophils # Basophils # Metamyelocytes # 0.2 H Nucleated Red Blood Cells # Platelet Estimate NORMAL Giant Platelets 1 H Polychromasia 3+ Hypochromasia 3+ Poikilocytosis 2+ Anisocytosis 2+ Microcytosis 2+ Ovalocytes 1+ Sodium Level 143 Potassium Level 5.0 Chloride Level 113 H Carbon Dioxide Level 21 Anion Gap 9 Blood Urea Nitrogen 35 H Creatinine 1.66 H Est Glomerular Filtrat Rate mL/min 42 L Glucose Level 76 Calcium Level 9.2 Ammonia 25 Medications Medication Current Medications IV Flush (NS 3 ml) 3 ml PER PROTOCOL IV ; Start 01/11/19 at 13:00 Ondansetron HCl (Zofran Inj) 4 mg Q6H PRN IV NAUSEA/VOMITING Last administered on 01/28/19 01:43; Admin Dose 4 MG; Start 01/11/19 at 13:00 Acetaminophen (Tylenol Tab) 650 mg Q6H PRN PO .PAIN 1-3 OR TEMP; Start 01/11/19 at 13:00 Albuterol (Proventil 0.083% (Neb)) 2.5 mg Q6 PRN HHN shortness of breath; Start 01/11/19 at 13:00 Metoprolol Succinate (Toprol Xl) 50 mg DAILY PO Last administered on 02/02/19 08:46; Admin Dose 50 MG; Start 01/12/19 at 09:00 Clonidine (Catapres) 0.1 mg Q6H PRN PO systolic BP > 160 Last administered on 01/12/19 21:31; Admin Dose 0.1 MG; Start 01/12/19 at 21:00 Allopurinol (Zyloprim) 100 mg DAILY PO Last administered on 02/02/19 08:46; Admin Dose 100 MG; Start 01/13/19 at 09:00 Ascorbic Acid (Vitamin C) 500 mg DAILY PO Last administered on 02/02/19 08:46; Admin Dose 500 MG; Start 01/13/19 at 09:00 Docusate Sodium (Colace) 200 mg QHS PO Last administered on 02/02/19 20:54; Admin Dose 200 MG; Start 01/13/19 at 21:00 Epoetin Ghulam-epbx (RETACRIT(non-esrd)) 10,000 unit Q48H SC Last administered on 01/25/19 18:32; Admin Dose 10,000 UNIT; Start 01/13/19 at 18:00; Status Hold Ferrous Sulfate (Ferrous Sulfate (Ec)) 325 mg DAILY PO Last administered on 02/02/19 08:46; Admin Dose 325 MG; Start 01/13/19 at 09:00 Folic Acid (Folic Acid) 1 mg DAILY PO Last administered on 02/02/19 08:47; Admin Dose 1 MG; Start 01/13/19 at 09:00 Gabapentin (Neurontin) 100 mg TID PO Last administered on 02/02/19 20:54; Admin Dose 100 MG; Start 01/13/19 at 09:00 Lorazepam (Ativan) 1 mg BID PRN PO ANXIETY Last administered on 01/14/19 20:36; Admin Dose 1 MG; Start 01/13/19 at 06:30 Rifaximin (Xifaxan) 550 mg BID PO Last administered on 02/02/19 20:54; Admin Dose 550 MG; Start 01/13/19 at 09:00 Tamsulosin HCl (Flomax) 0.4 mg HS PO Last administered on 02/02/19 20:54; Admin Dose 0.4 MG; Start 01/13/19 at 21:00 Thiamine HCl (Vitamin B1) 100 mg DAILY PO Last administered on 02/02/19 08:46; Admin Dose 100 MG; Start 01/13/19 at 09:00 Arformoterol Tartrate (Brovana (Neb)) 2 ml BID RESP THERAPY INH Last administered on 02/02/19 19:33; Admin Dose 2 ML; Start 01/13/19 at 09:00 Budesonide (Pulmicort (Neb)) 0.5 mg Q12H RESP THERAPY INH Last administered on 02/02/19 19:34; Admin Dose 0.5 MG; Start 01/13/19 at 09:00 Nicotine (Nicoderm 21 Mg/ 24hr) 1 patch DAILY TRANSDERM Last administered on 02/02/19 08:47; Admin Dose 1 PATCH; Start 01/14/19 at 09:00 Famotidine (Pepcid) 20 mg Q12 PO Last administered on 02/02/19 20:54; Admin Dose 20 MG; Start 01/13/19 at 21:00 Furosemide (Lasix) 20 mg DAILY PO Last administered on 02/02/19 08:46; Admin Dose 20 MG; Start 01/16/19 at 09:00 Buspirone HCl (Buspar) 10 mg BID PO Last administered on 02/02/19 20:54; Admin Dose 10 MG; Start 01/16/19 at 12:30 Amlodipine Besylate (Norvasc) 5 mg BID PO Last administered on 02/02/19 20:57; Admin Dose 5 MG; Start 01/21/19 at 21:00 Hydromorphone HCl (Dilaudid) 2 mg Q4H PRN IV SEVERE PAIN LEVEL 7-10 Last administered on 02/03/19 02:15; Admin Dose 2 MG; Start 01/25/19 at 14:00 Lorazepam (Ativan) 1 mg Q6H PRN IV ANXIETY Last administered on 02/02/19 23:03; Admin Dose 1 MG; Start 01/25/19 at 14:00 Dorzolamide/ Timolol (Cosopt Pf Eye Drops) 1 drop BID LEFT EYE Last administered on 01/26/19 08:59; Admin Dose 1 DROP; Start 01/26/19 at 09:00 Simethicone (Mylicon) 80 mg Q6 PRN PO bloating; Start 01/26/19 at 07:00 Eye Lubricant (Artificial Tears Oph) 2 drop Q6H PRN BOTH EYES DRY EYES Last administered on 02/01/19 22:14; Admin Dose 2 DROP; Start 01/26/19 at 07:00 Lubiprostone (Amitiza) 24 mcg BID PO Last administered on 02/02/19 21:07; Admin Dose 24 MCG; Start 01/26/19 at 09:00 Linezolid (Zyvox) 600 mg BID PO Last administered on 02/02/19 20:54; Admin Dose 600 MG; Start 01/28/19 at 13:30 Citric Acid/ Sodium Citrate (Bicitra) 30 ml TID PO Last administered on 02/02/19 20:57; Admin Dose 30 ML; Start 01/29/19 at 09:00 Metoprolol Succinate (Toprol Xl) 50 mg HS PO Last administered on 02/02/19 20:56; Admin Dose 50 MG; Start 01/29/19 at 21:00 Polyethylene Glycol (Miralax) 17 gm DAILY PRN PO CONSTIPATION Last administered on 02/02/19 21:15; Admin Dose 17 GM; Start 01/29/19 at 19:30 Oxycodone HCl (Roxicodone) 10 mg Q4H PRN PO MODERATE PAIN LEVEL 4-6 Last administered on 02/03/19 05:31; Admin Dose 10 MG; Start 01/30/19 at 17:30 Levothyroxine Sodium (Synthroid) 250 mcg DAILY@06 PO Last administered on 4/30/19at 05:31; Admin Dose 250 MCG; Start 02/03/19 at 06:00 GO LAMBERT Feb 03, 2019 06:07
[2019-02-03] MEDS: BUDESONIDE (NEB) 0.5MG/2ML AMP INH SCH ×2 (08:42→19:35)
[2019-02-03] MEDS: ZYVOX 600 MG TAB PO SCH ×2 (08:54→20:35)
[2019-02-03] MEDS: AMLODIPINE 5 MG TAB PO SCH ×2 (08:54→20:39)
[2019-02-03] MEDS: FOLIC ACID 1 MG TAB PO SCH (08:54)
[2019-02-03] MEDS: LUBIPROSTONE 24 MCG CAP PO SCH ×2 (08:54→20:41)
[2019-02-03] MEDS: BUSPIRONE 10 MG TAB PO SCH ×2 (08:54→20:35)
[2019-02-03] MEDS: CITRIC ACID/NA CITRATE 30 ML CUP PO SCH ×3 (08:54→20:35)
[2019-02-03] MEDS: FAMOTIDINE 20 MG TAB PO SCH ×2 (08:54→20:36)
[2019-02-03] MEDS: RIFAXIMIN 550 MG TAB PO SCH ×2 (08:54→20:36)
[2019-02-03] MEDS: ASCORBIC ACID 500 MG TAB PO SCH (08:55)
[2019-02-03] MEDS: METOPROLOL (XL) 50 MG TAB PO SCH (08:55)
[2019-02-03] MEDS: NICOTINE (21 MG/24 HR) PATCH TRANSDERM SCH (08:55)
[2019-02-03] MEDS: THIAMINE 100 MG TAB PO SCH (08:55)
[2019-02-03] MEDS: ALLOPURINOL 100 MG TAB PO SCH (08:55)
[2019-02-03] MEDS: FUROSEMIDE 20 MG TAB PO SCH (08:55)
[2019-02-03] MEDS: FERROUS SULFATE (EC) 325 MG TAB PO SCH (08:55)
[2019-02-03] MEDS: DORZOLAMIDE/TIMOLOL/PF 0.2 ML DROPERETTE LEFT EYE SCH (08:56)
[2019-02-03] MEDS: GABAPENTIN 100 MG CAP PO SCH ×3 (08:56→20:36)
[2019-02-03] MEDS: ARFORMOTEROL TARTRATE 15MCG/2 ML AMP INH SCH ×2 (09:00→19:35)
[2019-02-03 09:04] VITALS: BP 137/65; PULSE 77
--- NOTE | 2019-02-03 09:28 | CONS ---
Assessment/Plan Assessment/Plan Hospital Course (Demo Recall) 63 yo male Interval hx: No acute events. Diarrhea. C/O back pain. TSH elevated, started on synthroid. 1. Microcytic hypochromic anemia, most probably related to iron deficiency. -anemia work up from previous visit last week noted. NEG FOB -EGD done April 2018 showed duodenal ulcer and gastritis -hgb stable -s/p colonoscopy 01/28 2. 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 -US on 01/07 did not ascites 3. Nicotine dependence 4. Congestive heart failure. -EF of 60% 5. Chronic obstructive pulmonary disease. 6. Renal failure. 7. Opioid induced constipation -lactulose, amitiza, miralax PLAN: Monitor HH and ammonia amitiza and miralax but hold for diarrhea Pt examined and plan of care discussed with Dr. Casiano Consultation Date/Type/Reason Admit Date/Time Jan 11, 2019 at 09:53 Initial Consult Date 01/11/19 Requesting Provider: KOKO MARLOW MD Date/Time of Note DATE: 02/03/19 TIME: 09:26 Exam/Review of Systems Exam Vitals Vital Signs Date Temp Pulse Resp B/P (MAP) Pulse Ox O2 O2 Flow FiO2 Time Delivery Rate 02/03/19 77 137/65 09:04 (89) 02/03/19 20 95 21 08:43 02/03/19 98.2 02:00 02/02/19 Room Air 14:20 Intake and Output 02/02/19 02/02/19 02/03/19 1515:00 23:00 07:00 IntakeIntake Total 800 ml 600 ml OutputOutput Total 400 ml BalanceBalance 800 ml 200 ml Constitutional: alert, oriented, well developed Psych: depression Head: normocephalic Eyes: PERRL Cardiovascular: regular rate and rhythm Gastrointestinal: soft, non-tender, bowel sounds Musculoskeletal: muscle weakness Neurological: nl mental status Results Result Diagram: 02/03/19 0613 02/03/19 0613 Results 24hrs Laboratory Tests Test 02/03/19 06:13 White Blood Count 11.6 H Red Blood Count 5.14 Hemoglobin 10.6 L Hematocrit 37.5 L Mean Corpuscular Volume 73.0 L Mean Corpuscular Hemoglobin 20.6 L Mean Corpuscular Hemoglobin Concent 28.3 L Red Cell Distribution Width 21.6 H Platelet Count 156 Mean Platelet Volume Immature Granulocytes % 1.500 H Neutrophils % 53.0 Lymphocytes % 10.3 L Monocytes % 24.5 H Eosinophils % 9.8 H Basophils % 0.9 Nucleated Red Blood Cells % 0.0 Immature Granulocytes # 0.170 H Neutrophils # 6.2 Lymphocytes # 1.2 Monocytes # 2.8 H Eosinophils # 1.1 H Basophils # 0.1 Nucleated Red Blood Cells # 0.0 Sodium Level 141 Potassium Level 4.9 Chloride Level 111 H Carbon Dioxide Level 21 Anion Gap 9 Blood Urea Nitrogen 38 H Creatinine 1.63 H Est Glomerular Filtrat Rate mL/min 43 L Glucose Level 74 Calcium Level 9.0 Medications Medication Current Medications IV Flush (NS 3 ml) 3 ml PER PROTOCOL IV ; Start 01/11/19 at 13:00 Ondansetron HCl (Zofran Inj) 4 mg Q6H PRN IV NAUSEA/VOMITING Last administered on 01/28/19 01:43; Admin Dose 4 MG; Start 01/11/19 at 13:00 Acetaminophen (Tylenol Tab) 650 mg Q6H PRN PO .PAIN 1-3 OR TEMP; Start 01/11/19 at 13:00 Albuterol (Proventil 0.083% (Neb)) 2.5 mg Q6 PRN HHN shortness of breath; Start 01/11/19 at 13:00 Metoprolol Succinate (Toprol Xl) 50 mg DAILY PO Last administered on 02/03/19 08:55; Admin Dose 50 MG; Start 01/12/19 at 09:00 Clonidine (Catapres) 0.1 mg Q6H PRN PO systolic BP > 160 Last administered on 01/12/19 21:31; Admin Dose 0.1 MG; Start 01/12/19 at 21:00 Allopurinol (Zyloprim) 100 mg DAILY PO Last administered on 02/03/19 08:55; Admin Dose 100 MG; Start 01/13/19 at 09:00 Ascorbic Acid (Vitamin C) 500 mg DAILY PO Last administered on 02/03/19 08:55; Admin Dose 500 MG; Start 01/13/19 at 09:00 Docusate Sodium (Colace) 200 mg QHS PO Last administered on 02/02/19 20:54; Admin Dose 200 MG; Start 01/13/19 at 21:00 Epoetin Ghulam-epbx (RETACRIT(non-esrd)) 10,000 unit Q48H SC Last administered on 01/25/19 18:32; Admin Dose 10,000 UNIT; Start 01/13/19 at 18:00; Status Hold Ferrous Sulfate (Ferrous Sulfate (Ec)) 325 mg DAILY PO Last administered on 02/03/19 08:55; Admin Dose 325 MG; Start 01/13/19 at 09:00 Folic Acid (Folic Acid) 1 mg DAILY PO Last administered on 02/03/19 08:54; Admin Dose 1 MG; Start 01/13/19 at 09:00 Gabapentin (Neurontin) 100 mg TID PO Last administered on 02/03/19 08:56; Admin Dose 100 MG; Start 01/13/19 at 09:00 Lorazepam (Ativan) 1 mg BID PRN PO ANXIETY Last administered on 01/14/19 20:36; Admin Dose 1 MG; Start 01/13/19 at 06:30 Rifaximin (Xifaxan) 550 mg BID PO Last administered on 02/03/19 08:54; Admin Dose 550 MG; Start 01/13/19 at 09:00 Tamsulosin HCl (Flomax) 0.4 mg HS PO Last administered on 02/02/19 20:54; Admin Dose 0.4 MG; Start 01/13/19 at 21:00 Thiamine HCl (Vitamin B1) 100 mg DAILY PO Last administered on 02/03/19 08:55; Admin Dose 100 MG; Start 01/13/19 at 09:00 Arformoterol Tartrate (Brovana (Neb)) 2 ml BID RESP THERAPY INH Last administered on 02/02/19 19:33; Admin Dose 2 ML; Start 01/13/19 at 09:00 Budesonide (Pulmicort (Neb)) 0.5 mg Q12H RESP THERAPY INH Last administered on 02/03/19 08:42; Admin Dose 0.5 MG; Start 01/13/19 at 09:00 Nicotine (Nicoderm 21 Mg/ 24hr) 1 patch DAILY TRANSDERM Last administered on 02/03/19 08:55; Admin Dose 1 PATCH; Start 01/14/19 at 09:00 Famotidine (Pepcid) 20 mg Q12 PO Last administered on 02/03/19 08:54; Admin Dose 20 MG; Start 01/13/19 at 21:00 Furosemide (Lasix) 20 mg DAILY PO Last administered on 02/03/19 08:55; Admin Dose 20 MG; Start 01/16/19 at 09:00 Buspirone HCl (Buspar) 10 mg BID PO Last administered on 02/03/19 08:54; Admin Dose 10 MG; Start 01/16/19 at 12:30 Amlodipine Besylate (Norvasc) 5 mg BID PO Last administered on 02/03/19 08:54; Admin Dose 5 MG; Start 01/21/19 at 21:00 Hydromorphone HCl (Dilaudid) 2 mg Q4H PRN IV SEVERE PAIN LEVEL 7-10 Last administered on 02/03/19 08:57; Admin Dose 2 MG; Start 01/25/19 at 14:00 Lorazepam (Ativan) 1 mg Q6H PRN IV ANXIETY Last administered on 02/02/19 23:03; Admin Dose 1 MG; Start 01/25/19 at 14:00 Dorzolamide/ Timolol (Cosopt Pf Eye Drops) 1 drop BID LEFT EYE Last administered on 01/26/19 08:59; Admin Dose 1 DROP; Start 01/26/19 at 09:00 Simethicone (Mylicon) 80 mg Q6 PRN PO bloating; Start 01/26/19 at 07:00 Eye Lubricant (Artificial Tears Oph) 2 drop Q6H PRN BOTH EYES DRY EYES Last administered on 02/01/19 22:14; Admin Dose 2 DROP; Start 01/26/19 at 07:00 Lubiprostone (Amitiza) 24 mcg BID PO Last administered on 02/03/19 08:54; Admin Dose 24 MCG; Start 01/26/19 at 09:00 Linezolid (Zyvox) 600 mg BID PO Last administered on 02/03/19 08:54; Admin Dose 600 MG; Start 01/28/19 at 13:30 Citric Acid/ Sodium Citrate (Bicitra) 30 ml TID PO Last administered on 02/03/19 08:54; Admin Dose 30 ML; Start 01/29/19 at 09:00 Metoprolol Succinate (Toprol Xl) 50 mg HS PO Last administered on 02/02/19 20:56; Admin Dose 50 MG; Start 01/29/19 at 21:00 Polyethylene Glycol (Miralax) 17 gm DAILY PRN PO CONSTIPATION Last administered on 02/02/19 21:15; Admin Dose 17 GM; Start 01/29/19 at 19:30 Oxycodone HCl (Roxicodone) 10 mg Q4H PRN PO MODERATE PAIN LEVEL 4-6 Last administered on 02/03/19 05:31; Admin Dose 10 MG; Start 01/30/19 at 17:30 Levothyroxine Sodium (Synthroid) 250 mcg DAILY@06 PO Last administered on 02/03/19 05:31; Admin Dose 250 MCG; Start 02/03/19 at 06:00 DEYVI HAN Feb 03, 2019 09:27
[2019-02-03] MEDS: LORAZEPAM 2 MG INJ IV PRN ×3 (09:59→22:09)
--- NOTE | 2019-02-03 11:49 | CONS ---
Assessment/Plan Assessment/Plan Hospital Course (Demo Recall) No acute changes WBC 11.6 neutrophils 53 BUN 38 creatinine 1.63 Antimicrobials: Zyvox Physical examination: This is a wasted well-developed chronically ill-appearing elderly man who is in no distress. Head atraumatic normocephalic sclera nonicteric. Neck is supple chest rise symmetrical breath sounds diminished bases. Heart: S1-S2. Abdomen soft bowel sounds present. Extremities without BLE edema, mild erythema, no cyanosis. Assessment: 1. Systemic inflammatory response syndrome with ongoing leukocytosis, clinically stable 2. S/p COPD exacerbation 3. Alcohol abuse 4. Bilateral lower extremities acute on chronic cellulitis/chronic venous stasis 5. Cirrhosis with recurrent ascites 6. Chronic kidney disease 7. CHF 8. Noncompliance 9. Anemia/gastritis/esophagitis per EGD Plan: Remains stable, continue on Zyvox for 4 more days Consultation Date/Type/Reason Admit Date/Time Jan 11, 2019 at 09:53 Initial Consult Date Type of Consult id Requesting Provider: KOKO MARLOW MD Date/Time of Note DATE: 02/03/19 TIME: 11:48 Exam/Review of Systems Exam Vitals Vital Signs Date Temp Pulse Resp B/P (MAP) Pulse Ox O2 O2 Flow FiO2 Time Delivery Rate 02/03/19 77 137/65 09:04 (89) 02/03/19 20 95 21 08:43 02/03/19 98.2 02:00 02/02/19 Room Air 14:20 Intake and Output 02/02/19 02/02/19 02/03/19 1515:00 23:00 07:00 IntakeIntake Total 800 ml 600 ml OutputOutput Total 400 ml BalanceBalance 800 ml 200 ml Results Result Diagram: 02/03/19 0613 02/03/19 0613 Results 24hrs Laboratory Tests Test 02/03/19 06:13 White Blood Count 11.6 H Red Blood Count 5.14 Hemoglobin 10.6 L Hematocrit 37.5 L Mean Corpuscular Volume 73.0 L Mean Corpuscular Hemoglobin 20.6 L Mean Corpuscular Hemoglobin Concent 28.3 L Red Cell Distribution Width 21.6 H Platelet Count 156 Mean Platelet Volume Immature Granulocytes % 1.500 H Neutrophils % 53.0 Lymphocytes % 10.3 L Monocytes % 24.5 H Eosinophils % 9.8 H Basophils % 0.9 Nucleated Red Blood Cells % 0.0 Immature Granulocytes # 0.170 H Neutrophils # 6.2 Lymphocytes # 1.2 Monocytes # 2.8 H Eosinophils # 1.1 H Basophils # 0.1 Nucleated Red Blood Cells # 0.0 Sodium Level 141 Potassium Level 4.9 Chloride Level 111 H Carbon Dioxide Level 21 Anion Gap 9 Blood Urea Nitrogen 38 H Creatinine 1.63 H Est Glomerular Filtrat Rate mL/min 43 L Glucose Level 74 Calcium Level 9.0 Medications Medication Current Medications IV Flush (NS 3 ml) 3 ml PER PROTOCOL IV ; Start 01/11/19 at 13:00 Ondansetron HCl (Zofran Inj) 4 mg Q6H PRN IV NAUSEA/VOMITING Last administered on 01/28/19 01:43; Admin Dose 4 MG; Start 01/11/19 at 13:00 Acetaminophen (Tylenol Tab) 650 mg Q6H PRN PO .PAIN 1-3 OR TEMP; Start 01/11/19 at 13:00 Albuterol (Proventil 0.083% (Neb)) 2.5 mg Q6 PRN HHN shortness of breath; Start 01/11/19 at 13:00 Metoprolol Succinate (Toprol Xl) 50 mg DAILY PO Last administered on 02/03/19 08:55; Admin Dose 50 MG; Start 01/12/19 at 09:00 Clonidine (Catapres) 0.1 mg Q6H PRN PO systolic BP > 160 Last administered on 01/12/19 21:31; Admin Dose 0.1 MG; Start 01/12/19 at 21:00 Allopurinol (Zyloprim) 100 mg DAILY PO Last administered on 02/03/19 08:55; Admin Dose 100 MG; Start 01/13/19 at 09:00 Ascorbic Acid (Vitamin C) 500 mg DAILY PO Last administered on 02/03/19 08:55; Admin Dose 500 MG; Start 01/13/19 at 09:00 Docusate Sodium (Colace) 200 mg QHS PO Last administered on 02/02/19 20:54; Admin Dose 200 MG; Start 01/13/19 at 21:00 Epoetin Ghulam-epbx (RETACRIT(non-esrd)) 10,000 unit Q48H SC Last administered on 01/25/19 18:32; Admin Dose 10,000 UNIT; Start 01/13/19 at 18:00; Status Hold Ferrous Sulfate (Ferrous Sulfate (Ec)) 325 mg DAILY PO Last administered on 02/03/19 08:55; Admin Dose 325 MG; Start 01/13/19 at 09:00 Folic Acid (Folic Acid) 1 mg DAILY PO Last administered on 02/03/19 08:54; Admin Dose 1 MG; Start 01/13/19 at 09:00 Gabapentin (Neurontin) 100 mg TID PO Last administered on 02/03/19 08:56; Admin Dose 100 MG; Start 01/13/19 at 09:00 Lorazepam (Ativan) 1 mg BID PRN PO ANXIETY Last administered on 01/14/19 20:36; Admin Dose 1 MG; Start 01/13/19 at 06:30 Rifaximin (Xifaxan) 550 mg BID PO Last administered on 02/03/19 08:54; Admin Dose 550 MG; Start 01/13/19 at 09:00 Tamsulosin HCl (Flomax) 0.4 mg HS PO Last administered on 02/02/19 20:54; Admin Dose 0.4 MG; Start 01/13/19 at 21:00 Thiamine HCl (Vitamin B1) 100 mg DAILY PO Last administered on 02/03/19 08:55; Admin Dose 100 MG; Start 01/13/19 at 09:00 Arformoterol Tartrate (Brovana (Neb)) 2 ml BID RESP THERAPY INH Last administered on 02/02/19 19:33; Admin Dose 2 ML; Start 01/13/19 at 09:00 Budesonide (Pulmicort (Neb)) 0.5 mg Q12H RESP THERAPY INH Last administered on 02/03/19 08:42; Admin Dose 0.5 MG; Start 01/13/19 at 09:00 Nicotine (Nicoderm 21 Mg/ 24hr) 1 patch DAILY TRANSDERM Last administered on 02/03/19 08:55; Admin Dose 1 PATCH; Start 01/14/19 at 09:00 Famotidine (Pepcid) 20 mg Q12 PO Last administered on 02/03/19 08:54; Admin Dose 20 MG; Start 01/13/19 at 21:00 Furosemide (Lasix) 20 mg DAILY PO Last administered on 02/03/19 08:55; Admin Dose 20 MG; Start 01/16/19 at 09:00 Buspirone HCl (Buspar) 10 mg BID PO Last administered on 02/03/19 08:54; Admin Dose 10 MG; Start 01/16/19 at 12:30 Amlodipine Besylate (Norvasc) 5 mg BID PO Last administered on 02/03/19 08:54; Admin Dose 5 MG; Start 01/21/19 at 21:00 Hydromorphone HCl (Dilaudid) 2 mg Q4H PRN IV SEVERE PAIN LEVEL 7-10 Last administered on 02/03/19 08:57; Admin Dose 2 MG; Start 01/25/19 at 14:00 Lorazepam (Ativan) 1 mg Q6H PRN IV ANXIETY Last administered on 02/03/19 09:59; Admin Dose 1 MG; Start 01/25/19 at 14:00 Dorzolamide/ Timolol (Cosopt Pf Eye Drops) 1 drop BID LEFT EYE Last administered on 01/26/19 08:59; Admin Dose 1 DROP; Start 01/26/19 at 09:00 Simethicone (Mylicon) 80 mg Q6 PRN PO bloating; Start 01/26/19 at 07:00 Eye Lubricant (Artificial Tears Oph) 2 drop Q6H PRN BOTH EYES DRY EYES Last administered on 02/01/19 22:14; Admin Dose 2 DROP; Start 01/26/19 at 07:00 Lubiprostone (Amitiza) 24 mcg BID PO Last administered on 02/03/19 08:54; Admin Dose 24 MCG; Start 01/26/19 at 09:00 Linezolid (Zyvox) 600 mg BID PO Last administered on 02/03/19 08:54; Admin Dose 600 MG; Start 01/28/19 at 13:30 Citric Acid/ Sodium Citrate (Bicitra) 30 ml TID PO Last administered on 02/03/19 08:54; Admin Dose 30 ML; Start 01/29/19 at 09:00 Metoprolol Succinate (Toprol Xl) 50 mg HS PO Last administered on 02/02/19 20:56; Admin Dose 50 MG; Start 01/29/19 at 21:00 Polyethylene Glycol (Miralax) 17 gm DAILY PRN PO CONSTIPATION Last administered on 02/02/19at 21:15; Admin Dose 17 GM; Start 01/29/19 at 19:30 Oxycodone HCl (Roxicodone) 10 mg Q4H PRN PO MODERATE PAIN LEVEL 4-6 Last administered on 02/03/19 11:08; Admin Dose 10 MG; Start 01/30/19 at 17:30 Levothyroxine Sodium (Synthroid) 250 mcg DAILY@06 PO Last administered on 02/03/19at 05:31; Admin Dose 250 MCG; Start 02/03/19 at 06:00 MELISSA NASH NP Feb 03, 2019 11:49
[2019-02-03 14:35] VITALS: BP 135/70; PULSE 69; RESP 18
--- NOTE | 2019-02-03 14:54 | CONS ---
Assessment/Plan Assessment/Plan Hospital Course (Demo Recall) 1. Congestive heart failure exacerbation, diastolic, acute on chronic - con't diuresis, better now - con't diuresis, better now - much better overall - con't Rx - much better overall. 2. Hypertension - well controlled, con't med rx Reasonably controlled. In good range now. 3. Shortness of breath secondary to congestive heart failure exacerbation, diastolic, acute on chronic - improved with therapy. Con't Rx. Better 4. Chronic renal failure - good urine output now. Better output now. 5. Cirrhosis - on meds. Better fluid satus overall. Lost weight. 6. Ascites, recurrent. 7. Hypothyroidism. 8. History of ETOH abuse- avoid hepatotoxic meds. D/C advised. 9. Anemia - H/H stable - no bleeding now. Stable now. NO bleeding now. 10. Infection - on anti-Bx now. Consultation Date/Type/Reason Admit Date/Time Jan 11, 2019 at 09:53 Initial Consult Date 01/12/19 Requesting Provider: KOKO MARLOW MD Date/Time of Note DATE: 02/03/19 TIME: 14:54 24 HR Interval Summary Free Text/Dictation VS reviewed - stable Exam/Review of Systems Exam Vitals Vital Signs Date Temp Pulse Resp B/P (MAP) Pulse Ox O2 O2 Flow FiO2 Time Delivery Rate 02/03/19 97.9 69 18 135/70 98 14:35 (91) 02/03/19 21 08:43 02/02/19 Room Air 14:20 Intake and Output 02/02/19 02/02/19 02/03/19 1414:59 22:59 06:59 IntakeIntake Total 800 ml 600 ml OutputOutput Total 400 ml BalanceBalance 800 ml 200 ml Results Result Diagram: 02/03/19 0613 02/03/19 0613 Results 24hrs Laboratory Tests Test 02/03/19 06:13 White Blood Count 11.6 H Red Blood Count 5.14 Hemoglobin 10.6 L Hematocrit 37.5 L Mean Corpuscular Volume 73.0 L Mean Corpuscular Hemoglobin 20.6 L Mean Corpuscular Hemoglobin Concent 28.3 L Red Cell Distribution Width 21.6 H Platelet Count 156 Mean Platelet Volume Immature Granulocytes % 1.500 H Neutrophils % 53.0 Lymphocytes % 10.3 L Monocytes % 24.5 H Eosinophils % 9.8 H Basophils % 0.9 Nucleated Red Blood Cells % 0.0 Immature Granulocytes # 0.170 H Neutrophils # 6.2 Lymphocytes # 1.2 Monocytes # 2.8 H Eosinophils # 1.1 H Basophils # 0.1 Nucleated Red Blood Cells # 0.0 Sodium Level 141 Potassium Level 4.9 Chloride Level 111 H Carbon Dioxide Level 21 Anion Gap 9 Blood Urea Nitrogen 38 H Creatinine 1.63 H Est Glomerular Filtrat Rate mL/min 43 L Glucose Level 74 Calcium Level 9.0 Medications Medication Current Medications IV Flush (NS 3 ml) 3 ml PER PROTOCOL IV ; Start 01/11/19 at 13:00 Ondansetron HCl (Zofran Inj) 4 mg Q6H PRN IV NAUSEA/VOMITING Last administered on 01/28/19at 01:43; Admin Dose 4 MG; Start 01/11/19 at 13:00 Acetaminophen (Tylenol Tab) 650 mg Q6H PRN PO .PAIN 1-3 OR TEMP; Start 01/11/19 at 13:00 Albuterol (Proventil 0.083% (Neb)) 2.5 mg Q6 PRN HHN shortness of breath; Start 01/11/19 at 13:00 Metoprolol Succinate (Toprol Xl) 50 mg DAILY PO Last administered on 02/03/19 08:55; Admin Dose 50 MG; Start 01/12/19 at 09:00 Clonidine (Catapres) 0.1 mg Q6H PRN PO systolic BP > 160 Last administered on 01/12/19at 21:31; Admin Dose 0.1 MG; Start 01/12/19 at 21:00 Allopurinol (Zyloprim) 100 mg DAILY PO Last administered on 02/03/19 08:55; Admin Dose 100 MG; Start 01/13/19 at 09:00 Ascorbic Acid (Vitamin C) 500 mg DAILY PO Last administered on 02/03/19 08:55; Admin Dose 500 MG; Start 01/13/19 at 09:00 Docusate Sodium (Colace) 200 mg QHS PO Last administered on 02/02/19 20:54; Admin Dose 200 MG; Start 01/13/19 at 21:00 Epoetin Ghulam-epbx (RETACRIT(non-esrd)) 10,000 unit Q48H SC Last administered on 01/25/19 18:32; Admin Dose 10,000 UNIT; Start 01/13/19 at 18:00; Status Hold Ferrous Sulfate (Ferrous Sulfate (Ec)) 325 mg DAILY PO Last administered on 02/03/19 08:55; Admin Dose 325 MG; Start 01/13/19 at 09:00 Folic Acid (Folic Acid) 1 mg DAILY PO Last administered on 02/03/19 08:54; Admin Dose 1 MG; Start 01/13/19 at 09:00 Gabapentin (Neurontin) 100 mg TID PO Last administered on 02/03/19 08:56; Admin Dose 100 MG; Start 01/13/19 at 09:00 Lorazepam (Ativan) 1 mg BID PRN PO ANXIETY Last administered on 01/14/19 20:36; Admin Dose 1 MG; Start 01/13/19 at 06:30 Rifaximin (Xifaxan) 550 mg BID PO Last administered on 02/03/19 08:54; Admin Dose 550 MG; Start 01/13/19 at 09:00 Tamsulosin HCl (Flomax) 0.4 mg HS PO Last administered on 02/02/19 20:54; Admin Dose 0.4 MG; Start 01/13/19 at 21:00 Thiamine HCl (Vitamin B1) 100 mg DAILY PO Last administered on 02/03/19 08:55; Admin Dose 100 MG; Start 01/13/19 at 09:00 Arformoterol Tartrate (Brovana (Neb)) 2 ml BID RESP THERAPY INH Last administered on 02/02/19 19:33; Admin Dose 2 ML; Start 01/13/19 at 09:00 Budesonide (Pulmicort (Neb)) 0.5 mg Q12H RESP THERAPY INH Last administered on 02/03/19 08:42; Admin Dose 0.5 MG; Start 01/13/19 at 09:00 Nicotine (Nicoderm 21 Mg/ 24hr) 1 patch DAILY TRANSDERM Last administered on 02/03/19 08:55; Admin Dose 1 PATCH; Start 01/14/19 at 09:00 Famotidine (Pepcid) 20 mg Q12 PO Last administered on 02/03/19 08:54; Admin Dose 20 MG; Start 01/13/19 at 21:00 Furosemide (Lasix) 20 mg DAILY PO Last administered on 02/03/19 08:55; Admin Dose 20 MG; Start 01/16/19 at 09:00 Buspirone HCl (Buspar) 10 mg BID PO Last administered on 02/03/19 08:54; Admin Dose 10 MG; Start 01/16/19 at 12:30 Amlodipine Besylate (Norvasc) 5 mg BID PO Last administered on 02/03/19 08:54; Admin Dose 5 MG; Start 01/21/19 at 21:00 Hydromorphone HCl (Dilaudid) 2 mg Q4H PRN IV SEVERE PAIN LEVEL 7-10 Last administered on 02/03/19 12:58; Admin Dose 2 MG; Start 01/25/19 at 14:00 Lorazepam (Ativan) 1 mg Q6H PRN IV ANXIETY Last administered on 02/03/19 09:59; Admin Dose 1 MG; Start 01/25/19 at 14:00 Dorzolamide/ Timolol (Cosopt Pf Eye Drops) 1 drop BID LEFT EYE Last administered on 01/26/19 08:59; Admin Dose 1 DROP; Start 01/26/19 at 09:00 Simethicone (Mylicon) 80 mg Q6 PRN PO bloating; Start 01/26/19 at 07:00 Eye Lubricant (Artificial Tears Oph) 2 drop Q6H PRN BOTH EYES DRY EYES Last ad ministered on 02/01/19 22:14; Admin Dose 2 DROP; Start 01/26/19 at 07:00 Lubiprostone (Amitiza) 24 mcg BID PO Last administered on 02/03/19 08:54; Admin Dose 24 MCG; Start 01/26/19 at 09:00 Linezolid (Zyvox) 600 mg BID PO Last administered on 02/03/19 08:54; Admin Dose 600 MG; Start 01/28/19 at 13:30 Citric Acid/ Sodium Citrate (Bicitra) 30 ml TID PO Last administered on 02/03/19 12:57; Admin Dose 30 ML; Start 01/29/19 at 09:00 Metoprolol Succinate (Toprol Xl) 50 mg HS PO Last administered on 02/02/19 20:56; Admin Dose 50 MG; Start 01/29/19 at 21:00 Polyethylene Glycol (Miralax) 17 gm DAILY PRN PO CONSTIPATION Last administered on 02/02/19at 21:15; Admin Dose 17 GM; Start 01/29/19 at 19:30 Oxycodone HCl (Roxicodone) 10 mg Q4H PRN PO MODERATE PAIN LEVEL 4-6 Last administered on 02/03/19at 11:08; Admin Dose 10 MG; Start 01/30/19 at 17:30 Levothyroxine Sodium (Synthroid) 250 mcg DAILY@06 PO Last administered on 02/03/19at 05:31; Admin Dose 250 MCG; Start 02/03/19 at 06:00 HALEY LIRIANO MD Feb 03, 2019 14:54
--- NOTE | 2019-02-03 16:42 | CONS ---
Assessment/Plan Assessment/Plan Assessment/Plan (Daily) 1. acute on chronic renal failure due to Type II hepatorenal syndrome 2. SIRS 3. anemia of CKD 5. Decompensated Liver cirrhosis with Symptomatic ascites 6. H/O HTN 7. h/o Liver cirrhosis with ascites 8. H/o Diastolic CHF 9. Bilateral LE chronic venous stasis 10.H/o BPH on Flomax 11. Acute hyperkalemia 12. Metabolic acidosis Plan: BUN/Cr improved to 38/1.6, K 4.9, HCo3 21 Continue bicitra 30ml PO TID for acidosis, pt is on Zyvox 600mg BID, wathc for acidosis Continue Lasix to 20mg po daily, , , Toprol Xl 50mg BID, amlodipine 5 mg po BID, -EGD done April 2018 showed duodenal ulcer and gastritis -s/p colonoscopy 01/28/19 Flomax 0.4mg po daily for BPH will follow up Consultation Date/Type/Reason Admit Date/Time Jan 11, 2019 at 09:53 Initial Consult Date 01/11/19 Type of Consult NEPHROLOGY Requesting Provider: KOKO MARLOW MD Date/Time of Note DATE: 02/03/19 TIME: 16:42 Exam/Review of Systems Exam Vitals Vital Signs Date Temp Pulse Resp B/P (MAP) Pulse Ox O2 O2 Flow FiO2 Time Delivery Rate 02/03/19 97.9 69 18 135/70 98 14:35 (91) 02/03/19 21 08:43 02/02/19 Room Air 14:20 Intake and Output 02/02/19 02/02/19 02/03/19 1515:00 23:00 07:00 IntakeIntake Total 800 ml 600 ml OutputOutput Total 400 ml BalanceBalance 800 ml 200 ml Exam Constitutional: alert, well developed, obese Respiratory: diminished breath sounds (at bases bilaterally) Cardiovascular: nl pulses, other (s1s2) Gastrointestinal: soft, non-tender Musculoskeletal: muscle weakness Extremities: normal pulses Neurological: nl speech, other (alert/reponsie) Lymph: nontende Results Result Diagram: 02/03/19 0613 02/03/19 0613 Results 24hrs Laboratory Tests Test 02/03/19 06:13 White Blood Count 11.6 H Red Blood Count 5.14 Hemoglobin 10.6 L Hematocrit 37.5 L Mean Corpuscular Volume 73.0 L Mean Corpuscular Hemoglobin 20.6 L Mean Corpuscular Hemoglobin Concent 28.3 L Red Cell Distribution Width 21.6 H Platelet Count 156 Mean Platelet Volume Immature Granulocytes % 1.500 H Neutrophils % 53.0 Lymphocytes % 10.3 L Monocytes % 24.5 H Eosinophils % 9.8 H Basophils % 0.9 Nucleated Red Blood Cells % 0.0 Immature Granulocytes # 0.170 H Neutrophils # 6.2 Lymphocytes # 1.2 Monocytes # 2.8 H Eosinophils # 1.1 H Basophils # 0.1 Nucleated Red Blood Cells # 0.0 Sodium Level 141 Potassium Level 4.9 Chloride Level 111 H Carbon Dioxide Level 21 Anion Gap 9 Blood Urea Nitrogen 38 H Creatinine 1.63 H Est Glomerular Filtrat Rate mL/min 43 L Glucose Level 74 Calcium Level 9.0 Medications Medication Current Medications IV Flush (NS 3 ml) 3 ml PER PROTOCOL IV ; Start 01/11/19 at 13:00 Ondansetron HCl (Zofran Inj) 4 mg Q6H PRN IV NAUSEA/VOMITING Last administered on 01/28/19at 01:43; Admin Dose 4 MG; Start 01/11/19 at 13:00 Acetaminophen (Tylenol Tab) 650 mg Q6H PRN PO .PAIN 1-3 OR TEMP; Start 01/11/19 at 13:00 Albuterol (Proventil 0.083% (Neb)) 2.5 mg Q6 PRN HHN shortness of breath; Start 01/11/19 at 13:00 Metoprolol Succinate (Toprol Xl) 50 mg DAILY PO Last administered on 02/03/19 08:55; Admin Dose 50 MG; Start 01/12/19 at 09:00 Clonidine (Catapres) 0.1 mg Q6H PRN PO systolic BP > 160 Last administered on 01/12/19 21:31; Admin Dose 0.1 MG; Start 01/12/19 at 21:00 Allopurinol (Zyloprim) 100 mg DAILY PO Last administered on 02/03/19 08:55; Admin Dose 100 MG; Start 01/13/19 at 09:00 Ascorbic Acid (Vitamin C) 500 mg DAILY PO Last administered on 02/03/19 08:55; Admin Dose 500 MG; Start 01/13/19 at 09:00 Docusate Sodium (Colace) 200 mg QHS PO Last administered on 02/02/19 20:54; Admin Dose 200 MG; Start 01/13/19 at 21:00 Epoetin Ghulam-epbx (RETACRIT(non-esrd)) 10,000 unit Q48H SC Last administered on 01/25/19 18:32; Admin Dose 10,000 UNIT; Start 01/13/19 at 18:00; Status Hold Ferrous Sulfate (Ferrous Sulfate (Ec)) 325 mg DAILY PO Last administered on 02/03/19 08:55; Admin Dose 325 MG; Start 01/13/19 at 09:00 Folic Acid (Folic Acid) 1 mg DAILY PO Last administered on 02/03/19 08:54; Admin Dose 1 MG; Start 01/13/19 at 09:00 Gabapentin (Neurontin) 100 mg TID PO Last administered on 02/03/19 08:56; Admin Dose 100 MG; Start 01/13/19 at 09:00 Lorazepam (Ativan) 1 mg BID PRN PO ANXIETY Last administered on 01/14/19 20:36; Admin Dose 1 MG; Start 01/13/19 at 06:30 Rifaximin (Xifaxan) 550 mg BID PO Last administered on 02/03/19 08:54; Admin Dose 550 MG; Start 01/13/19 at 09:00 Tamsulosin HCl (Flomax) 0.4 mg HS PO Last administered on 02/02/19 20:54; Admin Dose 0.4 MG; Start 01/13/19 at 21:00 Thiamine HCl (Vitamin B1) 100 mg DAILY PO Last administered on 02/03/19 08:55; Admin Dose 100 MG; Start 01/13/19 at 09:00 Arformoterol Tartrate (Brovana (Neb)) 2 ml BID RESP THERAPY INH Last admin istered on 02/02/19 19:33; Admin Dose 2 ML; Start 01/13/19 at 09:00 Budesonide (Pulmicort (Neb)) 0.5 mg Q12H RESP THERAPY INH Last administered on 02/03/19 08:42; Admin Dose 0.5 MG; Start 01/13/19 at 09:00 Nicotine (Nicoderm 21 Mg/ 24hr) 1 patch DAILY TRANSDERM Last administered on 02/03/19 08:55; Admin Dose 1 PATCH; Start 01/14/19 at 09:00 Famotidine (Pepcid) 20 mg Q12 PO Last administered on 02/03/19 08:54; Admin Dose 20 MG; Start 01/13/19 at 21:00 Furosemide (Lasix) 20 mg DAILY PO Last administered on 02/03/19 08:55; Admin Dose 20 MG; Start 01/16/19 at 09:00 Buspirone HCl (Buspar) 10 mg BID PO Last administered on 02/03/19 08:54; Admin Dose 10 MG; Start 01/16/19 at 12:30 Amlodipine Besylate (Norvasc) 5 mg BID PO Last administered on 02/03/19 08:54; Admin Dose 5 MG; Start 01/21/19 at 21:00 Hydromorphone HCl (Dilaudid) 2 mg Q4H PRN IV SEVERE PAIN LEVEL 7-10 Last administered on 02/03/19 12:58; Admin Dose 2 MG; Start 01/25/19 at 14:00 Lorazepam (Ativan) 1 mg Q6H PRN IV ANXIETY Last administered on 02/03/19 16:20; Admin Dose 1 MG; Start 01/25/19 at 14:00 Dorzolamide/ Timolol (Cosopt Pf Eye Drops) 1 drop BID LEFT EYE Last administered on 01/26/19 08:59; Admin Dose 1 DROP; Start 01/26/19 at 09:00 Simethicone (Mylicon) 80 mg Q6 PRN PO bloating; Start 01/26/19 at 07:00 Eye Lubricant (Artificial Tears Oph) 2 drop Q6H PRN BOTH EYES DRY EYES Last administered on 02/01/19 22:14; Admin Dose 2 DROP; Start 01/26/19 at 07:00 Lubiprostone (Amitiza) 24 mcg BID PO Last administered on 02/03/19 08:54; Admin Dose 24 MCG; Start 01/26/19 at 09:00 Linezolid (Zyvox) 600 mg BID PO Last administered on 02/03/19 08:54; Admin Dose 600 MG; Start 01/28/19 at 13:30 Citric Acid/ Sodium Citrate (Bicitra) 30 ml TID PO Last administered on 02/03/19 12:57; Admin Dose 30 ML; Start 01/29/19 at 09:00 Metoprolol Succinate (Toprol Xl) 50 mg HS PO Last administered on 02/02/19 20 :56; Admin Dose 50 MG; Start 01/29/19 at 21:00 Polyethylene Glycol (Miralax) 17 gm DAILY PRN PO CONSTIPATION Last administered on 02/02/19 21:15; Admin Dose 17 GM; Start 01/29/19 at 19:30 Oxycodone HCl (Roxicodone) 10 mg Q4H PRN PO MODERATE PAIN LEVEL 4-6 Last administered on 02/03/19 15:15; Admin Dose 10 MG; Start 01/30/19 at 17:30 Levothyroxine Sodium (Synthroid) 250 mcg DAILY@06 PO Last administered on 02/03/19 05:31; Admin Dose 250 MCG; Start 02/03/19 at 06:00 ELADIO DELGADO MD Feb 03, 2019 16:42
[2019-02-03 20:00] VITALS: BP 165/75; PULSE 71; RESP 18
[2019-02-03] MEDS: DOCUSATE SODIUM 100 MG CAP PO SCH (20:35)
[2019-02-03] MEDS: TAMSULOSIN (SR) 0.4 MG CAP PO SCH (20:36)
[2019-02-03] MEDS: POLYETHYLENE GLYCOL 17 GM PACKET PO PRN (20:42)
[2019-02-03] MEDS: METOPROLOL (XL) 25 MG TAB PO SCH (20:42)
[2019-02-03] MEDS ORDERED: MAGNESIUM CITRATE 300 ML BTL PO ONE (21:00)
[2019-02-04] MEDS: HYDROmorphONE 2 MG/ML SYG IV PRN ×6 (01:37→22:30)
[2019-02-04 02:00] VITALS: BP 133/60; PULSE 77; RESP 19
[2019-02-04] MEDS: oxyCODONE 5 MG TAB PO PRN ×3 (03:01→19:29)
--- NOTE | 2019-02-04 05:12 | PN ---
Date/Time of Note Date/Time of Note DATE: 02/04/19 TIME: 05:12 Assessment/Plan VTE Prophylaxis Risk score (from Nsg)>0 risk: 4 SCD applied (from Nsg): No Lines/Catheters IV Catheter Type (from Nrsg): Saline Lock Urinary Cath still in place: No Assessment/Plan Assessment/Plan -Shortness of breath, rule out acute coronary syndrome, cardiac enzymes are negative x3. -Acute on chronic diastolic congestive heart failure. Continue Lasix. Dr. Foley is following in cardiology consultation. -COPD exacerbation, continue bronchodilators, steroids, and oxygen supplementation. -Anemia, Dr. Mayes is following in gastroenterology consultation. -Alcoholic liver cirrhosis -Acute kidney injury on chronic kidney disease. Dr. Leung is following in nephrology consultation. -Bilateral lower extremities chronic venous stasis -Left foot plantar ulcer. Dr. Younger is following in podiatry consultation. -Obesity -Nicotine dependence, continue nicotine patch, cessation is strongly advised. -Ongoing alcohol use, cessation is strongly advised. -Poor medical compliance -Chronic pain- [facility] pain management consult w/Dr Oneil Result Diagram: 02/03/19 0613 02/03/19 0613 Results 24hrs Laboratory Tests Test 02/03/19 06:13 White Blood Count 11.6 H Red Blood Count 5.14 Hemoglobin 10.6 L Hematocrit 37.5 L Mean Corpuscular Volume 73.0 L Mean Corpuscular Hemoglobin 20.6 L Mean Corpuscular Hemoglobin Concent 28.3 L Red Cell Distribution Width 21.6 H Platelet Count 156 Mean Platelet Volume Immature Granulocytes % 1.500 H Neutrophils % 53.0 Lymphocytes % 10.3 L Monocytes % 24.5 H Eosinophils % 9.8 H Basophils % 0.9 Nucleated Red Blood Cells % 0.0 Immature Granulocytes # 0.170 H Neutrophils # 6.2 Lymphocytes # 1.2 Monocytes # 2.8 H Eosinophils # 1.1 H Basophils # 0.1 Nucleated Red Blood Cells # 0.0 Sodium Level 141 Potassium Level 4.9 Chloride Level 111 H Carbon Dioxide Level 21 Anion Gap 9 Blood Urea Nitrogen 38 H Creatinine 1.63 H Est Glomerular Filtrat Rate mL/min 43 L Glucose Level 74 Calcium Level 9.0 Exam/Review of Systems Exam Vitals Vital Signs Date Temp Pulse Resp B/P (MAP) Pulse Ox O2 O2 Flow FiO2 Time Delivery Rate 02/04/19 98.6 77 19 133/60 96 02:00 (84) 02/03/19 21 19:36 02/02/19 Room Air 14:20 Intake and Output 02/03/19 02/03/19 02/04/19 1515:00 23:00 07:00 IntakeIntake Total 240 ml 1500 ml OutputOutput Total 800 ml BalanceBalance 240 ml 700 ml Results Results 24hrs Laboratory Tests Test 02/03/19 06:13 White Blood Count 11.6 H Red Blood Count 5.14 Hemoglobin 10.6 L Hematocrit 37.5 L Mean Corpuscular Volume 73.0 L Mean Corpuscular Hemoglobin 20.6 L Mean Corpuscular Hemoglobin Concent 28.3 L Red Cell Distribution Width 21.6 H Platelet Count 156 Mean Platelet Volume Immature Granulocytes % 1.500 H Neutrophils % 53.0 Lymphocytes % 10.3 L Monocytes % 24.5 H Eosinophils % 9.8 H Basophils % 0.9 Nucleated Red Blood Cells % 0.0 Immature Granulocytes # 0.170 H Neutrophils # 6.2 Lymphocytes # 1.2 Monocytes # 2.8 H Eosinophils # 1.1 H Basophils # 0.1 Nucleated Red Blood Cells # 0.0 Sodium Level 141 Potassium Level 4.9 Chloride Level 111 H Carbon Dioxide Level 21 Anion Gap 9 Blood Urea Nitrogen 38 H Creatinine 1.63 H Est Glomerular Filtrat Rate mL/min 43 L Glucose Level 74 Calcium Level 9.0 Medications Medication Current Medications IV Flush (NS 3 ml) 3 ml PER PROTOCOL IV ; Start 01/11/19 at 13:00 Ondansetron HCl (Zofran Inj) 4 mg Q6H PRN IV NAUSEA/VOMITING Last administered on 01/28/19at 01:43; Admin Dose 4 MG; Start 01/11/19 at 13:00 Acetaminophen (Tylenol Tab) 650 mg Q6H PRN PO .PAIN 1-3 OR TEMP; Start 01/11/19 at 13:00 Albuterol (Proventil 0.083% (Neb)) 2.5 mg Q6 PRN HHN shortness of breath; Start 01/11/19 at 13:00 Metoprolol Succinate (Toprol Xl) 50 mg DAILY PO Last administered on 02/03/19at 08:55; Admin Dose 50 MG; Start 01/12/19 at 09:00 Clonidine (Catapres) 0.1 mg Q6H PRN PO systolic BP > 160 Last administered on 01/12/19 21:31; Admin Dose 0.1 MG; Start 01/12/19 at 21:00 Allopurinol (Zyloprim) 100 mg DAILY PO Last administered on 02/03/19 08:55; Admin Dose 100 MG; Start 01/13/19 at 09:00 Ascorbic Acid (Vitamin C) 500 mg DAILY PO Last administered on 02/03/19 08:55; Admin Dose 500 MG; Start 01/13/19 at 09:00 Docusate Sodium (Colace) 200 mg QHS PO Last administered on 02/03/19 20:35; Admin Dose 200 MG; Start 01/13/19 at 21:00 Epoetin Ghulam-epbx (RETACRIT(non-esrd)) 10,000 unit Q48H SC Last administered on 01/25/19 18:32; Admin Dose 10,000 UNIT; Start 01/13/19 at 18:00; Status Hold Ferrous Sulfate (Ferrous Sulfate (Ec)) 325 mg DAILY PO Last administered on 02/03/19 08:55; Admin Dose 325 MG; Start 01/13/19 at 09:00 Folic Acid (Folic Acid) 1 mg DAILY PO Last administered on 02/03/19 08:54; Admin Dose 1 MG; Start 01/13/19 at 09:00 Gabapentin (Neurontin) 100 mg TID PO Last administered on 02/03/19 20:36; Admin Dose 100 MG; Start 01/13/19 at 09:00 Lorazepam (Ativan) 1 mg BID PRN PO ANXIETY Last administered on 01/14/19 2 0:36; Admin Dose 1 MG; Start 01/13/19 at 06:30 Rifaximin (Xifaxan) 550 mg BID PO Last administered on 02/03/19 20:36; Admin Dose 550 MG; Start 01/13/19 at 09:00 Tamsulosin HCl (Flomax) 0.4 mg HS PO Last administered on 02/03/19 20:36; Admin Dose 0.4 MG; Start 01/13/19 at 21:00 Thiamine HCl (Vitamin B1) 100 mg DAILY PO Last administered on 02/03/19 08:55; Admin Dose 100 MG; Start 01/13/19 at 09:00 Arformoterol Tartrate (Brovana (Neb)) 2 ml BID RESP THERAPY INH Last administered on 02/03/19 19:35; Admin Dose 2 ML; Start 01/13/19 at 09:00 Budesonide (Pulmicort (Neb)) 0.5 mg Q12H RESP THERAPY INH Last administered on 02/03/19 19:35; Admin Dose 0.5 MG; Start 01/13/19 at 09:00 Nicotine (Nicoderm 21 Mg/ 24hr) 1 patch DAILY TRANSDERM Last administered on 02/03/19 08:55; Admin Dose 1 PATCH; Start 01/14/19 at 09:00 Famotidine (Pepcid) 20 mg Q12 PO Last administered on 02/03/19 20:36; Admin Dose 20 MG; Start 01/13/19 at 21:00 Furosemide (Lasix) 20 mg DAILY PO Last administered on 02/03/19 08:55; Admin Dose 20 MG; Start 01/16/19 at 09:00 Buspirone HCl (Buspar) 10 mg BID PO Last administered on 02/03/19 20:35; Admin Dose 10 MG; Start 01/16/19 at 12:30 Amlodipine Besylate (Norvasc) 5 mg BID PO Last administered on 02/03/19 20:39; Admin Dose 5 MG; Start 01/21/19 at 21:00 Hydromorphone HCl (Dilaudid) 2 mg Q4H PRN IV SEVERE PAIN LEVEL 7-10 Last administered on 02/04/19 01:37; Admin Dose 2 MG; Start 01/25/19 at 14:00 Lorazepam (Ativan) 1 mg Q6H PRN IV ANXIETY Last administered on 02/03/19 22:09; Admin Dose 1 MG; Start 01/25/19 at 14:00 Simethicone (Mylicon) 80 mg Q6 PRN PO bloating; Start 01/26/19 at 07:00 Eye Lubricant (Artificial Tears Oph) 2 drop Q6H PRN BOTH EYES DRY EYES Last administered on 02/01/19 22:14; Admin Dose 2 DROP; Start 01/26/19 at 07:00 Lubiprostone (Amitiza) 24 mcg BID PO Last administered on 02/03/19 20:41; Admin Dose 24 MCG; Start 01/26/19 at 09:00 Linezolid (Zyvox) 600 mg BID PO Last administered on 02/03/19 20:35; Admin Dose 600 MG; Start 01/28/19 at 13:30 Citric Acid/ Sodium Citrate (Bicitra) 30 ml TID PO Last administered on 9at 20:35; Admin Dose 30 ML; Start 01/29/19 at 09:00 Metoprolol Succinate (Toprol Xl) 50 mg HS PO Last administered on 02/03/19 20:42; Admin Dose 50 MG; Start 01/29/19 at 21:00 Polyethylene Glycol (Miralax) 17 gm DAILY PRN PO CONSTIPATION Last administered on 02/02/19 21:15; Admin Dose 17 GM; Start 01/29/19 at 19:30 Oxycodone HCl (Roxicodone) 10 mg Q4H PRN PO MODERATE PAIN LEVEL 4-6 Last admi nistered on 02/04/19 03:01; Admin Dose 10 MG; Start 01/30/19 at 17:30 Levothyroxine Sodium (Synthroid) 250 mcg DAILY@06 PO Last administered on 02/03/19 05:31; Admin Dose 250 MCG; Start 02/03/19 at 06:00 GO LAMBERT February 04, 2019 05:12
[2019-02-04] MEDS: LEVOTHYROXINE 125 MCG TAB PO SCH (05:52)
[2019-02-04] MEDS: LORAZEPAM 2 MG INJ IV PRN ×4 (07:46→21:36)
[2019-02-04] MEDS: ARFORMOTEROL TARTRATE 15MCG/2 ML AMP INH SCH ×2 (07:52→20:42)
[2019-02-04] MEDS: BUDESONIDE (NEB) 0.5MG/2ML AMP INH SCH ×2 (07:52→20:42)
[2019-02-04 08:26] VITALS: BP 153/72; PULSE 78; RESP 18
[2019-02-04] MEDS: GABAPENTIN 100 MG CAP PO SCH (09:00)
[2019-02-04] MEDS: ZYVOX 600 MG TAB PO SCH ×2 (09:15→20:35)
[2019-02-04] MEDS: CITRIC ACID/NA CITRATE 30 ML CUP PO SCH ×3 (09:15→20:36)
[2019-02-04] MEDS: ALLOPURINOL 100 MG TAB PO SCH (09:15)
[2019-02-04] MEDS: ASCORBIC ACID 500 MG TAB PO SCH (09:15)
[2019-02-04] MEDS: RIFAXIMIN 550 MG TAB PO SCH ×2 (09:16→20:35)
[2019-02-04] MEDS: FOLIC ACID 1 MG TAB PO SCH (09:16)
[2019-02-04] MEDS: METOPROLOL (XL) 50 MG TAB PO SCH (09:16)
[2019-02-04] MEDS: AMLODIPINE 5 MG TAB PO SCH ×2 (09:16→20:36)
[2019-02-04] MEDS: LUBIPROSTONE 24 MCG CAP PO SCH ×2 (09:16→20:35)
[2019-02-04] MEDS: FAMOTIDINE 20 MG TAB PO SCH ×2 (09:16→20:35)
[2019-02-04] MEDS: FERROUS SULFATE (EC) 325 MG TAB PO SCH (09:16)
[2019-02-04] MEDS: THIAMINE 100 MG TAB PO SCH (09:16)
[2019-02-04] MEDS: BUSPIRONE 10 MG TAB PO SCH ×2 (09:16→20:36)
[2019-02-04] MEDS: NICOTINE (21 MG/24 HR) PATCH TRANSDERM SCH (09:17)
[2019-02-04] MEDS: FUROSEMIDE 20 MG TAB PO SCH (09:17)
--- NOTE | 2019-02-04 10:06 | CONS ---
Assessment/Plan Assessment/Plan Assessment/Plan (Daily) 1. acute on chronic renal failure due to Type II hepatorenal syndrome 2. SIRS 3. anemia of CKD 5. Decompensated Liver cirrhosis with Symptomatic ascites 6. H/O HTN 7. h/o Liver cirrhosis with ascites 8. H/o Diastolic CHF 9. Bilateral LE chronic venous stasis 10.H/o BPH on Flomax 11. Acute hyperkalemia 12. Metabolic acidosis Plan: BUN/Cr improved to 36/1.79 - other electrolytes stable Continue bicitra 30ml PO TID for acidosis, pt is on Zyvox 600mg BID, watch for acidosis Continue Lasix to 20mg po daily, Toprol Xl 50mg BID, amlodipine 5 mg po BID, -EGD done April 2018 showed duodenal ulcer and gastritis -s/p colonoscopy 01/28/19 Flomax 0.4mg po daily for BPH will follow up Consultation Date/Type/Reason Admit Date/Time Jan 11, 2019 at 09:53 Initial Consult Date 01/11/19 Type of Consult NEPHROLOGY Requesting Provider: KOKO MARLWO MD Date/Time of Note DATE: 02/04/19 TIME: 10:06 Exam/Review of Systems Exam Vitals Vital Signs Date Temp Pulse Resp B/P (MAP) Pulse Ox O2 O2 Flow FiO2 Time Delivery Rate 02/04/19 98.1 78 18 153/72 97 08:26 (99) 02/03/19 21 19:36 02/02/19 Room Air 14:20 Intake and Output 02/03/19 02/03/19 02/04/19 1515:00 23:00 07:00 IntakeIntake Total 240 ml 1500 ml 1000 ml OutputOutput Total 800 ml 600 ml BalanceBalance 240 ml 700 ml 400 ml Exam Constitutional: alert, well developed, obese Respiratory: diminished breath sounds (at bases bilaterally) Cardiovascular: nl pulses, other (s1s2) Gastrointestinal: soft, non-tender Musculoskeletal: muscle weakness Extremities: normal pulses Neurological: nl speech, other (alert/reponsie) Lymph: nontender Results Result Diagram: 02/04/19 0536 02/04/19 0536 Results 24hrs Laboratory Tests Test 02/04/19 05:36 White Blood Count 10.4 Red Blood Count 5.14 Hemoglobin 10.6 L Hematocrit 37.5 L Mean Corpuscular Volume 73.0 L Mean Corpuscular Hemoglobin 20.6 L Mean Corpuscular Hemoglobin Concent 28.3 L Red Cell Distribution Width 21.3 H Platelet Count 132 L Mean Platelet Volume Immature Granulocytes % 1.200 H Neutrophils % 54.0 Lymphocytes % 10.4 L Monocytes % 23.4 H Eosinophils % 10.3 H Basophils % 0.7 Nucleated Red Blood Cells % 0.0 Immature Granulocytes # 0.120 H Neutrophils # 5.6 Lymphocytes # 1.1 Monocytes # 2.4 H Eosinophils # 1.1 H Basophils # 0.1 Nucleated Red Blood Cells # 0.0 Sodium Level 142 Potassium Level 4.3 Chloride Level 110 Carbon Dioxide Level 22 Anion Gap 10 Blood Urea Nitrogen 36 H Creatinine 1.79 H Est Glomerular Filtrat Rate mL/min 39 L Glucose Level 99 Calcium Level 9.2 Medications Medication Current Medications IV Flush (NS 3 ml) 3 ml PER PROTOCOL IV ; Start 01/11/19 at 13:00 Ondansetron HCl (Zofran Inj) 4 mg Q6H PRN IV NAUSEA/VOMITING Last administered on 01/28/19at 01:43; Admin Dose 4 MG; Start 01/11/19 at 13:00 Acetaminophen (Tylenol Tab) 650 mg Q6H PRN PO .PAIN 1-3 OR TEMP; Start 01/11/19 at 13:00 Albuterol (Proventil 0.083% (Neb)) 2.5 mg Q6 PRN HHN shortness of breath; Start 01/11/19 at 13:00 Metoprolol Succinate (Toprol Xl) 50 mg DAILY PO Last administered on 02/04/19at 09:16; Admin Dose 50 MG; Start 01/12/19 at 09:00 Clonidine (Catapres) 0.1 mg Q6H PRN PO systolic BP > 160 Last administered on 01/12/19at 21:31; Admin Dose 0.1 MG; Start 01/12/19 at 21:00 Allopurinol (Zyloprim) 100 mg DAILY PO Last administered on 02/04/19at 09:15; Admin Dose 100 MG; Start 01/13/19 at 09:00 Ascorbic Acid (Vitamin C) 500 mg DAILY PO Last administered on 02/04/19at 09:15; Admin Dose 500 MG; Start 01/13/19 at 09:00 Docusate Sodium (Colace) 200 mg QHS PO Last administered on 02/03/19 20:35; Admin Dose 200 MG; Start 01/13/19 at 21:00 Epoetin Ghulam-epbx (RETACRIT(non-esrd)) 10,000 unit Q48H SC Last administered on 01/25/19 18:32; Admin Dose 10,000 UNIT; Start 01/13/19 at 18:00; Status Hold Ferrous Sulfate (Ferrous Sulfate (Ec)) 325 mg DAILY PO Last administered on 02/04/19 09:16; Admin Dose 325 MG; Start 01/13/19 at 09:00 Folic Acid (Folic Acid) 1 mg DAILY PO Last administered on 02/04/19 09:16; Admin Dose 1 MG; Start 01/13/19 at 09:00 Lorazepam (Ativan) 1 mg BID PRN PO ANXIETY Last administered on 01/14/19 20:36; Admin Dose 1 MG; Start 01/13/19 at 06:30 Rifaximin (Xifaxan) 550 mg BID PO Last administered on 02/04/19 09:16; Admin Dose 550 MG; Start 01/13/19 at 09:00 Tamsulosin HCl (Flomax) 0.4 mg HS PO Last administered on 02/03/19 20:36; Admin Dose 0.4 MG; Start 01/13/19 at 21:00 Thiamine HCl (Vitamin B1) 100 mg DAILY PO Last administered on 02/04/19 09:16; Admin Dose 100 MG; Start 01/13/19 at 09:00 Arformoterol Tartrate (Brovana (Neb)) 2 ml BID RESP THERAPY INH Last administered on 02/03/19 19:35; Admin Dose 2 ML; Start 01/13/19 at 09:00 Budesonide (Pulmicort (Neb)) 0.5 mg Q12H RESP THERAPY INH Last administered on 02/03/19 19:35; Admin Dose 0.5 MG; Start 01/13/19 at 09:00 Nicotine (Nicoderm 21 Mg/ 24hr) 1 patch DAILY TRANSDERM Last administered on 02/04/19 09:17; Admin Dose 1 PATCH; Start 01/14/19 at 09:00 Famotidine (Pepcid) 20 mg Q12 PO Last administered on 02/04/19 09:16; Admin Dose 20 MG; Start 01/13/19 at 21:00 Furosemide (Lasix) 20 mg DAILY PO Last administered on 02/04/19 09:17; Admin Dose 20 MG; Start 01/16/19 at 09:00 Buspirone HCl (Buspar) 10 mg BID PO Last administered on 02/04/19 09:16; Admin Dose 10 MG; Start 01/16/19 at 12:30 Amlodipine Besylate (Norvasc) 5 mg BID PO Last administered on 02/04/19 09:16; Admin Dose 5 MG; Start 01/21/19 at 21:00 Hydromorphone HCl (Dilaudid) 2 mg Q4H PRN IV SEVERE PAIN LEVEL 7-10 Last administered on 02/04/19 05:50; Admin Dose 2 MG; Start 01/25/19 at 14:00 Lorazepam (Ativan) 1 mg Q6H PRN IV ANXIETY Last administered on 02/04/19 09:13; Admin Dose 1 MG; Start 01/25/19 at 14:00 Simethicone (Mylicon) 80 mg Q6 PRN PO bloating; Start 01/26/19 at 07:00 Eye Lubricant (Artificial Tears Oph) 2 drop Q6H PRN BOTH EYES DRY EYES Last administered on 02/01/19 22:14; Admin Dose 2 DROP; Start 01/26/19 at 07:00 Lubiprostone (Amitiza) 24 mcg BID PO Last administered on 02/04/19 09:16; Admin Dose 24 MCG; Start 01/26/19 at 09:00 Linezolid (Zyvox) 600 mg BID PO Last administered on 02/04/19 09:15; Admin Dose 600 MG; Start 01/28/19 at 13:30 Citric Acid/ Sodium Citrate (Bicitra) 30 ml TID PO Last administered on 02/04/19 09:15; Admin Dose 30 ML; Start 01/29/19 at 09:00 Metoprolol Succinate (Toprol Xl) 50 mg HS PO Last administered on 02/03/19 20:42; Admin Dose 50 MG; Start 01/29/19 at 21:00 Polyethylene Glycol (Miralax) 17 gm DAILY PRN PO CONSTIPATION Last administered on 4/29/19at 21:15; Admin Dose 17 GM; Start 01/29/19 at 19:30 Oxycodone HCl (Roxicodone) 10 mg Q4H PRN PO MODERATE PAIN LEVEL 4-6 Last administered on 02/04/19at 03:01; Admin Dose 10 MG; Start 01/30/19 at 17:30 Levothyroxine Sodium (Synthroid) 250 mcg DAILY@06 PO Last administered on 02/04/19at 05:52; Admin Dose 250 MCG; Start 02/03/19 at 06:00 ELADIO DELGADO MD February 04, 2019 10:06
--- NOTE | 2019-02-04 11:48 | CONS ---
Assessment/Plan Assessment/Plan Hospital Course (Demo Recall) No acute changes, looks comfortable, no fevers, BLE look better Antimicrobials: Zyvox Physical examination: This is a wasted well-developed chronically ill-appearing elderly man who is in no distress. Head atraumatic normocephalic sclera nonicteric. Neck is supple chest rise symmetrical breath sounds diminished bases. Heart: S1-S2. Abdomen soft bowel sounds present. Extremities without BLE edema, mild erythema, no cyanosis. Assessment: 1. Systemic inflammatory response syndrome with ongoing leukocytosis, clinically stable 2. S/p COPD exacerbation 3. Alcohol abuse 4. Bilateral lower extremities acute on chronic cellulitis/chronic venous stasis 5. Cirrhosis with recurrent ascites 6. Chronic kidney disease 7. CHF 8. Noncompliance 9. Anemia/gastritis/esophagitis per EGD Plan: Remains stable, continue Zyvox, renal/GI rec-s Consultation Date/Type/Reason Admit Date/Time Jan 11, 2019 at 09:53 Initial Consult Date Type of Consult id Requesting Provider: KOKO MARLOW MD Date/Time of Note DATE: 02/04/19 TIME: 11:47 Exam/Review of Systems Exam Vitals Vital Signs Date Temp Pulse Resp B/P (MAP) Pulse Ox O2 O2 Flow FiO2 Time Delivery Rate 02/04/19 98.1 78 18 153/72 97 08:26 (99) 02/03/19 21 19:36 02/02/19 Room Air 14:20 Intake and Output 02/03/19 02/03/19 02/04/19 1515:00 23:00 07:00 IntakeIntake Total 240 ml 1500 ml 1000 ml OutputOutput Total 800 ml 600 ml BalanceBalance 240 ml 700 ml 400 ml Results Result Diagram: 02/04/19 0536 02/04/19 0536 Results 24hrs Laboratory Tests Test 02/04/19 05:36 White Blood Count 10.4 Red Blood Count 5.14 Hemoglobin 10.6 L Hematocrit 37.5 L Mean Corpuscular Volume 73.0 L Mean Corpuscular Hemoglobin 20.6 L Mean Corpuscular Hemoglobin Concent 28.3 L Red Cell Distribution Width 21.3 H Platelet Count 132 L Mean Platelet Volume Immature Granulocytes % 1.200 H Neutrophils % 54.0 Lymphocytes % 10.4 L Monocytes % 23.4 H Eosinophils % 10.3 H Basophils % 0.7 Nucleated Red Blood Cells % 0.0 Immature Granulocytes # 0.120 H Neutrophils # 5.6 Lymphocytes # 1.1 Monocytes # 2.4 H Eosinophils # 1.1 H Basophils # 0.1 Nucleated Red Blood Cells # 0.0 Sodium Level 142 Potassium Level 4.3 Chloride Level 110 Carbon Dioxide Level 22 Anion Gap 10 Blood Urea Nitrogen 36 H Creatinine 1.79 H Est Glomerular Filtrat Rate mL/min 39 L Glucose Level 99 Calcium Level 9.2 Medications Medication Current Medications IV Flush (NS 3 ml) 3 ml PER PROTOCOL IV ; Start 01/11/19 at 13:00 Ondansetron HCl (Zofran Inj) 4 mg Q6H PRN IV NAUSEA/VOMITING Last administered on 01/28/19 01:43; Admin Dose 4 MG; Start 01/11/19 at 13:00 Acetaminophen (Tylenol Tab) 650 mg Q6H PRN PO .PAIN 1-3 OR TEMP; Start 01/11/19 at 13:00 Albuterol (Proventil 0.083% (Neb)) 2.5 mg Q6 PRN HHN shortness of breath; Start 01/11/19 at 13:00 Metoprolol Succinate (Toprol Xl) 50 mg DAILY PO Last administered on 02/04/19 09:16; Admin Dose 50 MG; Start 01/12/19 at 09:00 Clonidine (Catapres) 0.1 mg Q6H PRN PO systolic BP > 160 Last administered on 01/12/19 21:31; Admin Dose 0.1 MG; Start 01/12/19 at 21:00 Allopurinol (Zyloprim) 100 mg DAILY PO Last administered on 02/04/19 09:15; Admin Dose 100 MG; Start 01/13/19 at 09:00 Ascorbic Acid (Vitamin C) 500 mg DAILY PO Last administered on 02/04/19 09:15; Admin Dose 500 MG; Start 01/13/19 at 09:00 Docusate Sodium (Colace) 200 mg QHS PO Last administered on 02/03/19 20:35; Admin Dose 200 MG; Start 01/13/19 at 21:00 Epoetin Ghulam-epbx (RETACRIT(non-esrd)) 10,000 unit Q48H SC Last administered on 01/25/19 18:32; Admin Dose 10,000 UNIT; Start 01/13/19 at 18:00; Status Hold Ferrous Sulfate (Ferrous Sulfate (Ec)) 325 mg DAILY PO Last administered on 02/04/19 09:16; Admin Dose 325 MG; Start 01/13/19 at 09:00 Folic Acid (Folic Acid) 1 mg DAILY PO Last administered on 02/04/19 09:16; Admin Dose 1 MG; Start 01/13/19 at 09:00 Lorazepam (Ativan) 1 mg BID PRN PO ANXIETY Last administered on 01/14/19 20:36; Admin Dose 1 MG; Start 01/13/19 at 06:30 Rifaximin (Xifaxan) 550 mg BID PO Last administered on 02/04/19 09:16; Admin Dose 550 MG; Start 01/13/19 at 09:00 Tamsulosin HCl (Flomax) 0.4 mg HS PO Last administered on 02/03/19 20:36; Admin Dose 0.4 MG; Start 01/13/19 at 21:00 Thiamine HCl (Vitamin B1) 100 mg DAILY PO Last administered on 02/04/19 09:16; Admin Dose 100 MG; Start 01/13/19 at 09:00 Arformoterol Tartrate (Brovana (Neb)) 2 ml BID RESP THERAPY INH Last administered on 02/03/19 19:35; Admin Dose 2 ML; Start 01/13/19 at 09:00 Budesonide (Pulmicort (Neb)) 0.5 mg Q12H RESP THERAPY INH Last administered on 02/03/19 19:35; Admin Dose 0.5 MG; Start 01/13/19 at 09:00 Nicotine (Nicoderm 21 Mg/ 24hr) 1 patch DAILY TRANSDERM Last administered on 02/04/19 09:17; Admin Dose 1 PATCH; Start 01/14/19 at 09:00 Famotidine (Pepcid) 20 mg Q12 PO Last administered on 02/04/19 09:16; Admin Dose 20 MG; Start 01/13/19 at 21:00 Furosemide (Lasix) 20 mg DAILY PO Last administered on 02/04/19 09:17; Admin Dose 20 MG; Start 01/16/19 at 09:00 Buspirone HCl (Buspar) 10 mg BID PO Last administered on 02/04/19 09:16; Admin Dose 10 MG; Start 01/16/19 at 12:30 Amlodipine Besylate (Norvasc) 5 mg BID PO Last administered on 02/04/19 09:16; Admin Dose 5 MG; Start 01/21/19 at 21:00 Hydromorphone HCl (Dilaudid) 2 mg Q4H PRN IV SEVERE PAIN LEVEL 7-10 Last a dministered on 02/04/19 10:09; Admin Dose 2 MG; Start 01/25/19 at 14:00 Lorazepam (Ativan) 1 mg Q6H PRN IV ANXIETY Last administered on 02/04/19 09:13; Admin Dose 1 MG; Start 01/25/19 at 14:00 Simethicone (Mylicon) 80 mg Q6 PRN PO bloating; Start 01/26/19 at 07:00 Eye Lubricant (Artificial Tears Oph) 2 drop Q6H PRN BOTH EYES DRY EYES Last administered on 02/01/19 22:14; Admin Dose 2 DROP; Start 01/26/19 at 07:00 Lubiprostone (Amitiza) 24 mcg BID PO Last administered on 02/04/19 09:16; Admin Dose 24 MCG; Start 01/26/19 at 09:00 Linezolid (Zyvox) 600 mg BID PO Last administered on 02/04/19 09:15; Admin Dose 600 MG; Start 01/28/19 at 13:30 Citric Acid/ Sodium Citrate (Bicitra) 30 ml TID PO Last administered on 02/04/19 09:15; Admin Dose 30 ML; Start 01/29/19 at 09:00 Metoprolol Succinate (Toprol Xl) 50 mg HS PO Last administered on 02/03/19 20:42; Admin Dose 50 MG; Start 01/29/19 at 21:00 Polyethylene Glycol (Miralax) 17 gm DAILY PRN PO CONSTIPATION Last administered on 02/02/19 21:15; Admin Dose 17 GM; Start 01/29/19 at 19:30 Oxycodone HCl (Roxicodone) 10 mg Q4H PRN PO MODERATE PAIN LEVEL 4-6 Last administered on 02/04/19 03:01; Admin Dose 10 MG; Start 01/30/19 at 17:30 Levothyroxine Sodium (Synthroid) 250 mcg DAILY@06 PO Last administered on 02/04/19at 05:52; Admin Dose 250 MCG; Start 02/03/19 at 06:00 MELISSA NASH NP February 04, 2019 11:48
[2019-02-04 15:14] VITALS: BP 161/73; PULSE 80; RESP 19
--- NOTE | 2019-02-04 16:21 | CONS ---
Assessment/Plan Assessment/Plan Assessment/Plan (Daily) Assessment/Plan Hospital Course (Demo Recall) 63 yo male Interval hx: No acute events. Diarrhea. C/O back pain. TSH elevated, started on synthroid. 1. Microcytic hypochromic anemia, most probably related to iron deficiency. -anemia work up from previous visit last week noted. NEG FOB -EGD done April 2018 showed duodenal ulcer and gastritis -hgb stable -s/p colonoscopy 01/28 2. 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 -US on 01/07 did not ascites 3. Nicotine dependence 4. Congestive heart failure. -EF of 60% 5. Chronic obstructive pulmonary disease. 6. Renal failure. 7. Opioid induced constipation -lactulose, amitiza, miralax 8. Chronic pain PLAN: Monitor HH and ammonia Consultation Date/Type/Reason Admit Date/Time Jan 11, 2019 at 09:53 Initial Consult Date 01/12/19 Requesting Provider: KOKO MARLOW MD Date/Time of Note DATE: 02/04/19 TIME: 16:21 24 HR Interval Summary Constitutional: improved Exam/Review of Systems Exam Vitals Vital Signs Date Temp Pulse Resp B/P (MAP) Pulse Ox O2 O2 Flow FiO2 Time Delivery Rate 02/04/19 98.3 80 19 161/73 94 15:14 (102) 02/03/19 21 19:36 02/02/19 Room Air 14:20 Intake and Output 02/03/19 02/03/19 02/04/19 1515:00 23:00 07:00 IntakeIntake Total 240 ml 1500 ml 1000 ml OutputOutput Total 800 ml 600 ml BalanceBalance 240 ml 700 ml 400 ml Constitutional: alert, oriented, well developed Psych: no complaints, nl mood/affect Head: normocephalic, atraumatic Eyes: nl conjunctiva, EOMI, nl lids, nl sclera, PERRL ENMT: nl external ears & nose, nl lips & teeth, nl nasal mucosa & septum Neck: supple, non-tender Respiratory: clear to auscultation, normal air movement Cardiovascular: regular rate and rhythm, nl pulses Gastrointestinal: soft, nl liver, spleen, non-tender Musculoskeletal: nl extremities to inspection, nl gait and stance Extremities: normal pulses Neurological: ROLL EXAMINER II-XII intact, nl mental status, nl speech, nl strength Skin: nl turgor; No rash or lesions Lymph: nl lymph nodes Results Result Diagram: 02/04/19 0536 02/04/19 0536 Results 24hrs Laboratory Tests Test 02/04/19 05:36 White Blood Count 10.4 Red Blood Count 5.14 Hemoglobin 10.6 L Hematocrit 37.5 L Mean Corpuscular Volume 73.0 L Mean Corpuscular Hemoglobin 20.6 L Mean Corpuscular Hemoglobin Concent 28.3 L Red Cell Distribution Width 21.3 H Platelet Count 132 L Mean Platelet Volume Immature Granulocytes % 1.200 H Neutrophils % 54.0 Lymphocytes % 10.4 L Monocytes % 23.4 H Eosinophils % 10.3 H Basophils % 0.7 Nucleated Red Blood Cells % 0.0 Immature Granulocytes # 0.120 H Neutrophils # 5.6 Lymphocytes # 1.1 Monocytes # 2.4 H Eosinophils # 1.1 H Basophils # 0.1 Nucleated Red Blood Cells # 0.0 Sodium Level 142 Potassium Level 4.3 Chloride Level 110 Carbon Dioxide Level 22 Anion Gap 10 Blood Urea Nitrogen 36 H Creatinine 1.79 H Est Glomerular Filtrat Rate mL/min 39 L Glucose Level 99 Calcium Level 9.2 Medications Medication Current Medications IV Flush (NS 3 ml) 3 ml PER PROTOCOL IV ; Start 01/11/19 at 13:00 Ondansetron HCl (Zofran Inj) 4 mg Q6H PRN IV NAUSEA/VOMITING Last administered on 01/28/19at 01:43; Admin Dose 4 MG; Start 01/11/19 at 13:00 Acetaminophen (Tylenol Tab) 650 mg Q6H PRN PO .PAIN 1-3 OR TEMP; Start 01/11/19 at 13:00 Albuterol (Proventil 0.083% (Neb)) 2.5 mg Q6 PRN HHN shortness of breath; Start 01/11/19 at 13:00 Metoprolol Succinate (Toprol Xl) 50 mg DAILY PO Last administered on 02/04/19at 09:16; Admin Dose 50 MG; Start 01/12/19 at 09:00 Clonidine (Catapres) 0.1 mg Q6H PRN PO systolic BP > 160 Last administered on 01/12/19at 21:31; Admin Dose 0.1 MG; Start 01/12/19 at 21:00 Allopurinol (Zyloprim) 100 mg DAILY PO Last administered on 02/04/19 09:15; Admin Dose 100 MG; Start 01/13/19 at 09:00 Ascorbic Acid (Vitamin C) 500 mg DAILY PO Last administered on 02/04/19 09:15; Admin Dose 500 MG; Start 01/13/19 at 09:00 Docusate Sodium (Colace) 200 mg QHS PO Last administered on 02/03/19 20:35; Admin Dose 200 MG; Start 01/13/19 at 21:00 Epoetin Ghulam-epbx (RETACRIT(non-esrd)) 10,000 unit Q48H SC Last administered on 01/25/19 18:32; Admin Dose 10,000 UNIT; Start 01/13/19 at 18:00; Status Hold Ferrous Sulfate (Ferrous Sulfate (Ec)) 325 mg DAILY PO Last administered on 02/04/19 09:16; Admin Dose 325 MG; Start 01/13/19 at 09:00 Folic Acid (Folic Acid) 1 mg DAILY PO Last administered on 02/04/19 09:16; Admin Dose 1 MG; Start 01/13/19 at 09:00 Lorazepam (Ativan) 1 mg BID PRN PO ANXIETY Last administered on 01/14/19 20:36; Admin Dose 1 MG; Start 01/13/19 at 06:30 Rifaximin (Xifaxan) 550 mg BID PO Last administered on 02/04/19 09:16; Admin Dose 550 MG; Start 01/13/19 at 09:00 Tamsulosin HCl (Flomax) 0.4 mg HS PO Last administered on 02/03/19 20:36; Admin Dose 0.4 MG; Start 01/13/19 at 21:00 Thiamine HCl (Vitamin B1) 100 mg DAILY PO Last administered on 02/04/19 09:16; Admin Dose 100 MG; Start 01/13/19 at 09:00 Arformoterol Tartrate (Brovana (Neb)) 2 ml BID RESP THERAPY INH Last administered on 02/03/19 19:35; Admin Dose 2 ML; Start 01/13/19 at 09:00 Budesonide (Pulmicort (Neb)) 0.5 mg Q12H RESP THERAPY INH Last administered on 02/03/19 19:35; Admin Dose 0.5 MG; Start 01/13/19 at 09:00 Nicotine (Nicoderm 21 Mg/ 24hr) 1 patch DAILY TRANSDERM Last administered on 02/04/19 09:17; Admin Dose 1 PATCH; Start 01/14/19 at 09:00 Famotidine (Pepcid) 20 mg Q12 PO Last administered on 02/04/19 09:16; Admin Dose 20 MG; Start 01/13/19 at 21:00 Furosemide (Lasix) 20 mg DAILY PO Last administered on 02/04/19 09:17; Admin Dose 20 MG; Start 01/16/19 at 09:00 Buspirone HCl (Buspar) 10 mg BID PO Last administered on 02/04/19 09:16; Admin Dose 10 MG; Start 01/16/19 at 12:30 Amlodipine Besylate (Norvasc) 5 mg BID PO Last administered on 02/04/19 09:16; Admin Dose 5 MG; Start 01/21/19 at 21:00 Hydromorphone HCl (Dilaudid) 2 mg Q4H PRN IV SEVERE PAIN LEVEL 7-10 Last administered on 02/04/19 14:10; Admin Dose 2 MG; Start 01/25/19 at 14:00 Lorazepam (Ativan) 1 mg Q6H PRN IV ANXIETY Last administered on 02/04/19 15:25; Admin Dose 1 MG; Start 01/25/19 at 14:00 Simethicone (Mylicon) 80 mg Q6 PRN PO bloating; Start 01/26/19 at 07:00 Eye Lubricant (Artificial Tears Oph) 2 drop Q6H PRN BOTH EYES DRY EYES Last administered on 02/01/19 22:14; Admin Dose 2 DROP; Start 01/26/19 at 07:00 Lubiprostone (Amitiza) 24 mcg BID PO Last administered on 02/04/19 09:16; Admin Dose 24 MCG; Start 01/26/19 at 09:00 Linezolid (Zyvox) 600 mg BID PO Last administered on 02/04/19 09:15; Admin Dose 600 MG; Start 01/28/19 at 13:30 Citric Acid/ Sodium Citrate (Bicitra) 30 ml TID PO Last administered on 02/04/19 09:15; Admin Dose 30 ML; Start 01/29/19 at 09:00 Metoprolol Succinate (Toprol Xl) 50 mg HS PO Last administered on 02/03/19at 20:42; Admin Dose 50 MG; Start 01/29/19 at 21:00 Polyethylene Glycol (Miralax) 17 gm DAILY PRN PO CONSTIPATION Last administered on 02/02/19at 21:15; Admin Dose 17 GM; Start 01/29/19 at 19:30 Oxycodone HCl (Roxicodone) 10 mg Q4H PRN PO MODERATE PAIN LEVEL 4-6 Last administered on 02/04/19at 13:10; Admin Dose 10 MG; Start 01/30/19 at 17:30 Levothyroxine Sodium (Synthroid) 250 mcg DAILY@06 PO Last administered on 02/04/19at 05:52; Admin Dose 250 MCG; Start 02/03/19 at 06:00 CHLOÉ TORRE MD February 04, 2019 16:21
--- NOTE | 2019-02-04 17:08 | CONS ---
Assessment/Plan Assessment/Plan Hospital Course (Demo Recall) IMPRESSION: 1. Congestive heart failure exacerbation, diastolic, acute on chronic. 2. Hypertension-reasonable on current regimen 3. Shortness of breath secondary to congestive heart failure exacerbation, diastolic, acute on chronic. 4. Chronic renal failure. 5. Cirrhosis. 6. Ascites, recurrent. 7. Hypothyroidism. 8. History of ETOH abuse. 9. Anemia s/p endoscopy. ? results 10.leukocytosis REcc: -ON med-surg -serial ecg's -Contineu lasix and follow volume status closely and ascites -aldactone d/c'd secondary to elevated K -Continue toprol and CCB at with possible need to make slight increase -Give miralax for constipation -pain control -Continue abx's and f/u cx data -ID following Consultation Date/Type/Reason Admit Date/Time Jan 11, 2019 at 09:53 Initial Consult Date 01/12/19 Type of Consult Cardiology Reason for Consultation CHF Requesting Provider: KOKO MARLOW MD Date/Time of Note DATE: 02/04/19 TIME: 17:06 Exam/Review of Systems Vital Signs Vitals Vital Signs Date Temp Pulse Resp B/P (MAP) Pulse Ox O2 O2 Flow FiO2 Time Delivery Rate 02/04/19 98.3 80 19 161/73 94 15:14 (102) 02/03/19 21 19:36 02/02/19 Room Air 14:20 Intake and Output 02/03/19 02/03/19 02/04/19 1515:00 23:00 07:00 IntakeIntake Total 240 ml 1500 ml 1000 ml OutputOutput Total 800 ml 600 ml BalanceBalance 240 ml 700 ml 400 ml Exam Exam Review of Systems: CONSTITUTIONAL: No fevers, chills. PULMONARY: No sob CARDIOVASCULAR: No chest pain/palpitations GASTROINTESTINAL: No nausea/vomiting. GENITOURINARY: No hematuria/dysuria. MUSCULOSKELETAL: No myagias/arthalgias. PSYCHIATRIC: The patient denies depression. NEUROLOGIC: No weakness Constitutional: alert Psych: no complaints Head: normocephalic ENMT: mucosa pink and moist Neck: supple, jvd (9 cm water) Respiratory: diminished breath sounds (at bases/B) Cardiovascular: regular rate and rhythm Gastrointestinal: soft, non-tender Musculoskeletal: muscle tone (normal) Extremities: edema (chronic changes with thickeneing of skin and trace edema) Neurological: other (No focal deficits) Labs Result Diagram: 02/04/19 0536 02/04/19 0536 Results 24hrs Laboratory Tests Test 02/04/19 05:36 White Blood Count 10.4 Red Blood Count 5.14 Hemoglobin 10.6 L Hematocrit 37.5 L Mean Corpuscular Volume 73.0 L Mean Corpuscular Hemoglobin 20.6 L Mean Corpuscular Hemoglobin Concent 28.3 L Red Cell Distribution Width 21.3 H Platelet Count 132 L Mean Platelet Volume Immature Granulocytes % 1.200 H Neutrophils % 54.0 Lymphocytes % 10.4 L Monocytes % 23.4 H Eosinophils % 10.3 H Basophils % 0.7 Nucleated Red Blood Cells % 0.0 Immature Granulocytes # 0.120 H Neutrophils # 5.6 Lymphocytes # 1.1 Monocytes # 2.4 H Eosinophils # 1.1 H Basophils # 0.1 Nucleated Red Blood Cells # 0.0 Sodium Level 142 Potassium Level 4.3 Chloride Level 110 Carbon Dioxide Level 22 Anion Gap 10 Blood Urea Nitrogen 36 H Creatinine 1.79 H Est Glomerular Filtrat Rate mL/min 39 L Glucose Level 99 Calcium Level 9.2 Medications Medications Current Medications IV Flush (NS 3 ml) 3 ml PER PROTOCOL IV ; Start 01/11/19 at 13:00 Ondansetron HCl (Zofran Inj) 4 mg Q6H PRN IV NAUSEA/VOMITING Last administered on 01/28/19at 01:43; Admin Dose 4 MG; Start 01/11/19 at 13:00 Acetaminophen (Tylenol Tab) 650 mg Q6H PRN PO .PAIN 1-3 OR TEMP; Start 01/11/19 at 13:00 Albuterol (Proventil 0.083% (Neb)) 2.5 mg Q6 PRN HHN shortness of breath; Start 01/11/19 at 13:00 Metoprolol Succinate (Toprol Xl) 50 mg DAILY PO Last administered on 02/04/19at 09:16; Admin Dose 50 MG; Start 01/12/19 at 09:00 Clonidine (Catapres) 0.1 mg Q6H PRN PO systolic BP > 160 Last administered on 01/12/19at 21:31; Admin Dose 0.1 MG; Start 01/12/19 at 21:00 Allopurinol (Zyloprim) 100 mg DAILY PO Last administered on 02/04/19 09:15; Admin Dose 100 MG; Start 01/13/19 at 09:00 Ascorbic Acid (Vitamin C) 500 mg DAILY PO Last administered on 02/04/19 09:15; Admin Dose 500 MG; Start 01/13/19 at 09:00 Docusate Sodium (Colace) 200 mg QHS PO Last administered on 02/03/19 20:35; Admin Dose 200 MG; Start 01/13/19 at 21:00 Epoetin Ghulam-epbx (RETACRIT(non-esrd)) 10,000 unit Q48H SC Last administered on 01/25/19 18:32; Admin Dose 10,000 UNIT; Start 01/13/19 at 18:00; Status Hold Ferrous Sulfate (Ferrous Sulfate (Ec)) 325 mg DAILY PO Last administered on 02/04/19 09:16; Admin Dose 325 MG; Start 01/13/19 at 09:00 Folic Acid (Folic Acid) 1 mg DAILY PO Last administered on 02/04/19 09:16; Admin Dose 1 MG; Start 01/13/19 at 09:00 Lorazepam (Ativan) 1 mg BID PRN PO ANXIETY Last administered on 01/14/19 20:36; Admin Dose 1 MG; Start 01/13/19 at 06:30 Rifaximin (Xifaxan) 550 mg BID PO Last administered on 02/04/19 09:16; Admin Dose 550 MG; Start 01/13/19 at 09:00 Tamsulosin HCl (Flomax) 0.4 mg HS PO Last administered on 02/03/19 20:36; Admin Dose 0.4 MG; Start 01/13/19 at 21:00 Thiamine HCl (Vitamin B1) 100 mg DAILY PO Last administered on 02/04/19 09:16; Admin Dose 100 MG; Start 01/13/19 at 09:00 Arformoterol Tartrate (Brovana (Neb)) 2 ml BID RESP THERAPY INH Last administered on 02/03/19 19:35; Admin Dose 2 ML; Start 01/13/19 at 09:00 Budesonide (Pulmicort (Neb)) 0.5 mg Q12H RESP THERAPY INH Last administered on 02/03/19 19:35; Admin Dose 0.5 MG; Start 01/13/19 at 09:00 Nicotine (Nicoderm 21 Mg/ 24hr) 1 patch DAILY TRANSDERM Last administered on 02/04/19 09:17; Admin Dose 1 PATCH; Start 01/14/19 at 09:00 Famotidine (Pepcid) 20 mg Q12 PO Last administered on 02/04/19 09:16; Admin Dose 20 MG; Start 01/13/19 at 21:00 Furosemide (Lasix) 20 mg DAILY PO Last administered on 02/04/19 09:17; Admin Dose 20 MG; Start 01/16/19 at 09:00 Buspirone HCl (Buspar) 10 mg BID PO Last administered on 02/04/19 09:16; Admin Dose 10 MG; Start 01/16/19 at 12:30 Amlodipine Besylate (Norvasc) 5 mg BID PO Last administered on 02/04/19 09:16; Admin Dose 5 MG; Start 01/21/19 at 21:00 Hydromorphone HCl (Dilaudid) 2 mg Q4H PRN IV SEVERE PAIN LEVEL 7-10 Last administered on 02/04/19 14:10; Admin Dose 2 MG; Start 01/25/19 at 14:00 Lorazepam (Ativan) 1 mg Q6H PRN IV ANXIETY Last administered on 02/04/19 15:25; Admin Dose 1 MG; Start 01/25/19 at 14:00 Simethicone (Mylicon) 80 mg Q6 PRN PO bloating; Start 01/26/19 at 07:00 Eye Lubricant (Artificial Tears Oph) 2 drop Q6H PRN BOTH EYES DRY EYES Last administered on 02/01/19 22:14; Admin Dose 2 DROP; Start 01/26/19 at 07:00 Lubiprostone (Amitiza) 24 mcg BID PO Last administered on 02/04/19 09:16; Admin Dose 24 MCG; Start 01/26/19 at 09:00 Linezolid (Zyvox) 600 mg BID PO Last administered on 02/04/19 09:15; Admin Dose 600 MG; Start 01/28/19 at 13:30 Citric Acid/ Sodium Citrate (Bicitra) 30 ml TID PO Last administered on 02/04/19 09:15; Admin Dose 30 ML; Start 01/29/19 at 09:00 Metoprolol Succinate (Toprol Xl) 50 mg HS PO Last administered on 02/03/19at 20:42; Admin Dose 50 MG; Start 01/29/19 at 21:00 Polyethylene Glycol (Miralax) 17 gm DAILY PRN PO CONSTIPATION Last administered on 02/02/19at 21:15; Admin Dose 17 GM; Start 01/29/19 at 19:30 Oxycodone HCl (Roxicodone) 10 mg Q4H PRN PO MODERATE PAIN LEVEL 4-6 Last administered on 02/04/19at 13:10; Admin Dose 10 MG; Start 01/30/19 at 17:30 Levothyroxine Sodium (Synthroid) 250 mcg DAILY@06 PO Last administered on 02/04/19at 05:52; Admin Dose 250 MCG; Start 02/03/19 at 06:00 DUSTY CANTU February 04, 2019 17:08
[2019-02-04 20:00] VITALS: BP 162/74; PULSE 78; RESP 21
[2019-02-04] MEDS: DOCUSATE SODIUM 100 MG CAP PO SCH (20:34)
[2019-02-04] MEDS: METOPROLOL (XL) 25 MG TAB PO SCH (20:35)
[2019-02-04] MEDS: TAMSULOSIN (SR) 0.4 MG CAP PO SCH (20:35)
[2019-02-05] MEDS: oxyCODONE 5 MG TAB PO PRN ×5 (00:15→20:00)
[2019-02-05 02:00] VITALS: BP 148/68; PULSE 76; RESP 20
[2019-02-05] MEDS: HYDROmorphONE 2 MG/ML SYG IV PRN ×5 (02:50→21:13)
[2019-02-05] MEDS: LORAZEPAM 2 MG INJ IV PRN ×3 (03:38→18:21)
[2019-02-05] MEDS: POLYETHYLENE GLYCOL 17 GM PACKET PO PRN (03:38)
[2019-02-05] MEDS: LEVOTHYROXINE 125 MCG TAB PO SCH (05:44)
[2019-02-05 08:00] VITALS: BP 149/66; PULSE 70; RESP 19
[2019-02-05] MEDS: BUDESONIDE (NEB) 0.5MG/2ML AMP INH SCH ×2 (08:00→20:23)
[2019-02-05] MEDS: BUSPIRONE 10 MG TAB PO SCH ×2 (08:52→20:34)
[2019-02-05] MEDS: LUBIPROSTONE 24 MCG CAP PO SCH ×2 (08:52→20:35)
[2019-02-05] MEDS: METOPROLOL (XL) 25 MG TAB PO SCH ×2 (08:53→20:42)
[2019-02-05] MEDS: FUROSEMIDE 40 MG TAB PO SCH (08:54)
[2019-02-05] MEDS: AMLODIPINE 5 MG TAB PO SCH ×2 (08:54→20:42)
[2019-02-05] MEDS: ASCORBIC ACID 500 MG TAB PO SCH (08:54)
[2019-02-05] MEDS: FERROUS SULFATE (EC) 325 MG TAB PO SCH (08:54)
[2019-02-05] MEDS: FOLIC ACID 1 MG TAB PO SCH (08:54)
[2019-02-05] MEDS: THIAMINE 100 MG TAB PO SCH (08:54)
[2019-02-05] MEDS: ZYVOX 600 MG TAB PO SCH ×2 (08:54→20:34)
[2019-02-05] MEDS: ALLOPURINOL 100 MG TAB PO SCH (08:54)
[2019-02-05] MEDS: RIFAXIMIN 550 MG TAB PO SCH ×2 (08:54→20:34)
[2019-02-05] MEDS: FAMOTIDINE 20 MG TAB PO SCH ×2 (08:54→20:34)
[2019-02-05] MEDS: CITRIC ACID/NA CITRATE 30 ML CUP PO SCH ×3 (08:55→20:46)
[2019-02-05] MEDS: NICOTINE (21 MG/24 HR) PATCH TRANSDERM SCH (08:55)
[2019-02-05] MEDS: ARFORMOTEROL TARTRATE 15MCG/2 ML AMP INH SCH ×2 (08:59→20:23)
--- NOTE | 2019-02-05 09:36 | PN ---
Date/Time of Note Date/Time of Note DATE: 02/05/19 TIME: 09:36 Assessment/Plan VTE Prophylaxis Risk score (from Nsg)>0 risk: 5 SCD applied (from Nsg): No Lines/Catheters IV Catheter Type (from Nrsg): Saline Lock Urinary Cath still in place: No Assessment/Plan Assessment/Plan -Shortness of breath, rule out acute coronary syndrome, cardiac enzymes are negative x3. -Acute on chronic diastolic congestive heart failure. Continue Lasix. Dr. Foley is following in cardiology consultation. -COPD exacerbation, continue bronchodilators, steroids, and oxygen supplementation. -Anemia, Dr. Mayes is following in gastroenterology consultation. -Alcoholic liver cirrhosis -Acute kidney injury on chronic kidney disease. Dr. Leung is following in nephrology consultation. -Bilateral lower extremities chronic venous stasis -Left foot plantar ulcer. Dr. Younger is following in podiatry consultation. -Obesity -Nicotine dependence, continue nicotine patch, cessation is strongly advised. -Ongoing alcohol use, cessation is strongly advised. -Poor medical compliance -Chronic pain- geovanny get pain management consult w/Dr Oneil Result Diagram: 02/04/1936 02/04/19 0536 Exam/Review of Systems Exam Vitals Vital Signs Date Temp Pulse Resp B/P (MAP) Pulse Ox O2 O2 Flow FiO2 Time Delivery Rate 02/05/19 98.3 70 19 149/66 95 Room Air 08:00 (93) 02/04/19 21 20:44 Intake and Output 02/04/19 02/04/19 02/05/19 1414:59 22:59 06:59 IntakeIntake Total 960 ml 240 ml 480 ml OutputOutput Total 550 ml 100 ml BalanceBalance 410 ml 140 ml 480 ml Medications Medication Current Medications IV Flush (NS 3 ml) 3 ml PER PROTOCOL IV ; Start 01/11/19 at 13:00 Ondansetron HCl (Zofran Inj) 4 mg Q6H PRN IV NAUSEA/VOMITING Last administered on 01/28/19at 01:43; Admin Dose 4 MG; Start 01/11/19 at 13:00 Acetaminophen (Tylenol Tab) 650 mg Q6H PRN PO .PAIN 1-3 OR TEMP; Start 01/11/19 at 13:00 Albuterol (Proventil 0.083% (Neb)) 2.5 mg Q6 PRN HHN shortness of breath; Start 01/11/19 at 13:00 Clonidine (Catapres) 0.1 mg Q6H PRN PO systolic BP > 160 Last administered on 01/12/19 21:31; Admin Dose 0.1 MG; Start 01/12/19 at 21:00 Allopurinol (Zyloprim) 100 mg DAILY PO Last administered on 02/05/19 08:54; Admin Dose 100 MG; Start 01/13/19 at 09:00 Ascorbic Acid (Vitamin C) 500 mg DAILY PO Last administered on 02/05/19 08:54; Admin Dose 500 MG; Start 01/13/19 at 09:00 Docusate Sodium (Colace) 200 mg QHS PO Last administered on 02/04/19 20:34; Admin Dose 200 MG; Start 01/13/19 at 21:00 Epoetin Ghulam-epbx (RETACRIT(non-esrd)) 10,000 unit Q48H SC Last administered on 01/25/19 18:32; Admin Dose 10,000 UNIT; Start 01/13/19 at 18:00; Status Hold Ferrous Sulfate (Ferrous Sulfate (Ec)) 325 mg DAILY PO Last administered on 02/05/19 08:54; Admin Dose 325 MG; Start 01/13/19 at 09:00 Folic Acid (Folic Acid) 1 mg DAILY PO Last administered on 02/05/19 08:54; Admin Dose 1 MG; Start 01/13/19 at 09:00 Lorazepam (Ativan) 1 mg BID PRN PO ANXIETY Last administered on 01/14/19 20:3 6; Admin Dose 1 MG; Start 01/13/19 at 06:30 Rifaximin (Xifaxan) 550 mg BID PO Last administered on 02/05/19 08:54; Admin Dose 550 MG; Start 01/13/19 at 09:00 Tamsulosin HCl (Flomax) 0.4 mg HS PO Last administered on 02/04/19 20:35; Admin Dose 0.4 MG; Start 01/13/19 at 21:00 Thiamine HCl (Vitamin B1) 100 mg DAILY PO Last administered on 02/05/19 08:54; Admin Dose 100 MG; Start 01/13/19 at 09:00 Arformoterol Tartrate (Brovana (Neb)) 2 ml BID RESP THERAPY INH Last administered on 02/04/19 20:42; Admin Dose 2 ML; Start 01/13/19 at 09:00 Budesonide (Pulmicort (Neb)) 0.5 mg Q12H RESP THERAPY INH Last administered on 02/04/19 20:42; Admin Dose 0.5 MG; Start 01/13/19 at 09:00 Nicotine (Nicoderm 21 Mg/ 24hr) 1 patch DAILY TRANSDERM Last administered on 02/05/19 08:55; Admin Dose 1 PATCH; Start 01/14/19 at 09:00 Famotidine (Pepcid) 20 mg Q12 PO Last administered on 02/05/19 08:54; Admin Dose 20 MG; Start 01/13/19 at 21:00 Buspirone HCl (Buspar) 10 mg BID PO Last administered on 02/05/19 08:52; Admin Dose 10 MG; Start 01/16/19 at 12:30 Amlodipine Besylate (Norvasc) 5 mg BID PO Last administered on 02/05/19 08:54; Admin Dose 5 MG; Start 01/21/19 at 21:00 Hydromorphone HCl (Dilaudid) 2 mg Q4H PRN IV SEVERE PAIN LEVEL 7-10 Last administered on 02/05/19 08:51; Admin Dose 2 MG; Start 01/25/19 at 14:00 Lorazepam (Ativan) 1 mg Q6H PRN IV ANXIETY Last administered on 02/05/19 03:38; Admin Dose 1 MG; Start 01/25/19 at 14:00 Simethicone (Mylicon) 80 mg Q6 PRN PO bloating; Start 01/26/19 at 07:00 Eye Lubricant (Artificial Tears Oph) 2 drop Q6H PRN BOTH EYES DRY EYES Last administered on 02/01/19 22:14; Admin Dose 2 DROP; Start 01/26/19 at 07:00 Lubiprostone (Amitiza) 24 mcg BID PO Last administered on 02/05/19 08:52; Admin Dose 24 MCG; Start 01/26/19 at 09:00 Linezolid (Zyvox) 600 mg BID PO Last administered on 02/05/19 08:54; Admin Dose 600 MG; Start 01/28/19 at 13:30 Citric Acid/ Sodium Citrate (Bicitra) 30 ml TID PO Last administered on 02/05/19 08:55; Admin Dose 30 ML; Start 01/29/19 at 09:00 Metoprolol Succinate (Toprol Xl) 50 mg HS PO Last administered on 02/04/19 20 :35; Admin Dose 50 MG; Start 01/29/19 at 21:00 Polyethylene Glycol (Miralax) 17 gm DAILY PRN PO CONSTIPATION Last administered on 02/05/19 03:38; Admin Dose 17 GM; Start 01/29/19 at 19:30 Oxycodone HCl (Roxicodone) 10 mg Q4H PRN PO MODERATE PAIN LEVEL 4-6 Last administered on 02/05/19 05:44; Admin Dose 10 MG; Start 01/30/19 at 17:30 Levothyroxine Sodium (Synthroid) 250 mcg DAILY@06 PO Last administered on 02/05/19 05:44; Admin Dose 250 MCG; Start 02/03/19 at 06:00 Furosemide (Lasix) 40 mg DAILY PO Last administered on 02/05/19 08:54; Admin Dose 40 MG; Start 02/05/19 at 09:00 Metoprolol Succinate (Toprol Xl) 75 mg DAILY PO Last administered on 02/05/19 08:53; Admin Dose 75 MG; Start 02/05/19 at 09:00 GO LAMBERT February 05, 2019 09:36
--- NOTE | 2019-02-05 12:19 | CONS ---
Assessment/Plan Assessment/Plan Hospital Course (Demo Recall) IMPRESSION: 1. Congestive heart failure exacerbation, diastolic, acute on chronic. 2. Hypertension-reasonable on current regimen 3. Shortness of breath secondary to congestive heart failure exacerbation, diastolic, acute on chronic. 4. Chronic renal failure. 5. Cirrhosis. 6. Ascites, recurrent. 7. Hypothyroidism. 8. History of ETOH abuse. 9. Anemia s/p endoscopy. ? results 10.leukocytosis REcc: -ON med-surg -serial ecg's -Continue lasix s/p increase yesterday and follow volume status closely and ascites -aldactone d/c'd secondary to elevated K -Continue toprol s/p slight increase yesterday and CCB with possible need to make additional increase -Give miralax for constipation -pain control -Continue abx's and f/u cx data -ID following Consultation Date/Type/Reason Admit Date/Time Jan 11, 2019 at 09:53 Initial Consult Date 01/12/19 Type of Consult Cardiology Reason for Consultation CHF Requesting Provider: KOKO MARLOW MD Date/Time of Note DATE: 02/05/19 TIME: 12:16 Exam/Review of Systems Vital Signs Vitals Vital Signs Date Temp Pulse Resp B/P (MAP) Pulse Ox O2 O2 Flow FiO2 Time Delivery Rate 02/05/19 98.3 70 19 149/66 95 Room Air 08:00 (93) 02/04/19 21 20:44 Intake and Output 02/04/19 02/04/19 02/05/19 1515:00 23:00 07:00 IntakeIntake Total 960 ml 240 ml 480 ml OutputOutput Total 550 ml 100 ml BalanceBalance 410 ml 140 ml 480 ml Exam Exam Review of Systems: CONSTITUTIONAL: No fevers, chills. PULMONARY: No sob CARDIOVASCULAR: No chest pain/palpitations GASTROINTESTINAL: No nausea/vomiting. GENITOURINARY: No hematuria/dysuria. MUSCULOSKELETAL: back pain PSYCHIATRIC: The patient denies depression. NEUROLOGIC: No weakness Constitutional: alert Psych: no complaints Head: normocephalic ENMT: mucosa pink and moist Neck: supple, jvd (9 cm water) Respiratory: diminished breath sounds Cardiovascular: regular rate and rhythm Gastrointestinal: soft, non-tender Musculoskeletal: muscle tone (normal) Extremities: edema (trace with chronic venous stasis changes) Labs Result Diagram: 02/04/1953502/04/19535 Medications Medications Current Medications IV Flush (NS 3 ml) 3 ml PER PROTOCOL IV ; Start 01/11/19 at 13:00 Ondansetron HCl (Zofran Inj) 4 mg Q6H PRN IV NAUSEA/VOMITING Last administered on 01/28/19 01:43; Admin Dose 4 MG; Start 01/11/19 at 13:00 Acetaminophen (Tylenol Tab) 650 mg Q6H PRN PO .PAIN 1-3 OR TEMP; Start 01/11/19 at 13:00 Albuterol (Proventil 0.083% (Neb)) 2.5 mg Q6 PRN HHN shortness of breath; Start 01/11/19 at 13:00 Clonidine (Catapres) 0.1 mg Q6H PRN PO systolic BP > 160 Last administered on 01/12/19 21:31; Admin Dose 0.1 MG; Start 01/12/19 at 21:00 Allopurinol (Zyloprim) 100 mg DAILY PO Last administered on 02/05/19 08:54; Admin Dose 100 MG; Start 01/13/19 at 09:00 Ascorbic Acid (Vitamin C) 500 mg DAILY PO Last administered on 02/05/19 08:54; Admin Dose 500 MG; Start 01/13/19 at 09:00 Docusate Sodium (Colace) 200 mg QHS PO Last administered on 02/04/19 20:34; Admin Dose 200 MG; Start 01/13/19 at 21:00 Epoetin Ghulam-epbx (RETACRIT(non-esrd)) 10,000 unit Q48H SC Last administered on 01/25/19 18:32; Admin Dose 10,000 UNIT; Start 01/13/19 at 18:00; Status Hold Ferrous Sulfate (Ferrous Sulfate (Ec)) 325 mg DAILY PO Last administered on 02/05/19 08:54; Admin Dose 325 MG; Start 01/13/19 at 09:00 Folic Acid (Folic Acid) 1 mg DAILY PO Last administered on 02/05/19 08:54; Admin Dose 1 MG; Start 01/13/19 at 09:00 Lorazepam (Ativan) 1 mg BID PRN PO ANXIETY Last administered on 01/14/19 20:36; Admin Dose 1 MG; Start 01/13/19 at 06:30 Rifaximin (Xifaxan) 550 mg BID PO Last administered on 02/05/19 08:54; Admin Dose 550 MG; Start 01/13/19 at 09:00 Tamsulosin HCl (Flomax) 0.4 mg HS PO Last administered on 02/04/19 20:35; Admin Dose 0.4 MG; Start 01/13/19 at 21:00 Thiamine HCl (Vitamin B1) 100 mg DAILY PO Last administered on 02/05/19 08:54; Admin Dose 100 MG; Start 01/13/19 at 09:00 Arformoterol Tartrate (Brovana (Neb)) 2 ml BID RESP THERAPY INH Last administered on 02/04/19 20:42; Admin Dose 2 ML; Start 01/13/19 at 09:00 Budesonide (Pulmicort (Neb)) 0.5 mg Q12H RESP THERAPY INH Last administered on 02/04/19 20:42; Admin Dose 0.5 MG; Start 01/13/19 at 09:00 Nicotine (Nicoderm 21 Mg/ 24hr) 1 patch DAILY TRANSDERM Last administered on 08:55; Admin Dose 1 PATCH; Start 01/14/19 at 09:00 Famotidine (Pepcid) 20 mg Q12 PO Last administered on 02/05/19 08:54; Admin Dose 20 MG; Start 01/13/19 at 21:00 Buspirone HCl (Buspar) 10 mg BID PO Last administered on 02/05/19 08:52; Admin Dose 10 MG; Start 01/16/19 at 12:30 Amlodipine Besylate (Norvasc) 5 mg BID PO Last administered on 02/05/19 08:54; Admin Dose 5 MG; Start 01/21/19 at 21:00 Hydromorphone HCl (Dilaudid) 2 mg Q4H PRN IV SEVERE PAIN LEVEL 7-10 Last administered on 02/05/19 08:51; Admin Dose 2 MG; Start 01/25/19 at 14:00 Lorazepam (Ativan) 1 mg Q6H PRN IV ANXIETY Last administered on 02/05/19 10:11; Admin Dose 1 MG; Start 01/25/19 at 14:00 Simethicone (Mylicon) 80 mg Q6 PRN PO bloating; Start 01/26/19 at 07:00 Eye Lubricant (Artificial Tears Oph) 2 drop Q6H PRN BOTH EYES DRY EYES Last administered on 02/01/19 22:14; Admin Dose 2 DROP; Start 01/26/19 at 07:00 Lubiprostone (Amitiza) 24 mcg BID PO Last administered on 02/05/19 08:52; Admin Dose 24 MCG; Start 01/26/19 at 09:00 Linezolid (Zyvox) 600 mg BID PO Last administered on 02/05/19 08:54; Admin Dose 600 MG; Start 01/28/19 at 13:30 Citric Acid/ Sodium Citrate (Bicitra) 30 ml TID PO Last administered on 02/05/19 08:55; Admin Dose 30 ML; Start 01/29/19 at 09:00 Metoprolol Succinate (Toprol Xl) 50 mg HS PO Last administered on 02/04/19 20:35; Admin Dose 50 MG; Start 01/29/19 at 21:00 Polyethylene Glycol (Miralax) 17 gm DAILY PRN PO CONSTIPATION Last administered on 02/05/19 03:38; Admin Dose 17 GM; Start 01/29/19 at 19:30 Oxycodone HCl (Roxicodone) 10 mg Q4H PRN PO MODERATE PAIN LEVEL 4-6 Last administered on 02/05/19 11:16; Admin Dose 10 MG; Start 01/30/19 at 17:30 Levothyroxine Sodium (Synthroid) 250 mcg DAILY@06 PO Last administered on 02/05/19 05:44; Admin Dose 250 MCG; Start 02/03/19 at 06:00 Furosemide (Lasix) 40 mg DAILY PO Last administered on 02/05/19 08:54; Admin Dose 40 MG; Start 02/05/19 at 09:00 Metoprolol Succinate (Toprol Xl) 75 mg DAILY PO Last administered on 02/05/19 08:53; Admin Dose 75 MG; Start 02/05/19 at 09:00 DUSTY CANTU February 05, 2019 12:19
--- NOTE | 2019-02-05 13:54 | CONS ---
Assessment/Plan Assessment/Plan Hospital Course (Demo Recall) No acute changes, alert, feels good Antimicrobials: Zyvox Physical examination: This is a wasted well-developed chronically ill-appearing elderly man who is in no distress. Head atraumatic normocephalic sclera nonicteric. Neck is supple chest rise symmetrical breath sounds diminished ba ses. Heart: S1-S2. Abdomen soft bowel sounds present. Extremities without BLE edema, mild erythema, no cyanosis. Assessment: 1. Systemic inflammatory response syndrome with ongoing leukocytosis, clinically stable 2. S/p COPD exacerbation 3. Alcohol abuse 4. Bilateral lower extremities acute on chronic cellulitis/chronic venous stasis 5. Cirrhosis with recurrent ascites 6. Chronic kidney disease 7. CHF 8. Noncompliance 9. Anemia/gastritis/esophagitis per EGD Plan: Remains stable, continue present care, renal/GI rec-s, anticipate dc off abx Consultation Date/Type/Reason Admit Date/Time Jan 11, 2019 at 09:53 Initial Consult Date Type of Consult id Requesting Provider: KOKO MARLOW MD Date/Time of Note DATE: 02/05/19 TIME: 13:54 Exam/Review of Systems Exam Vitals Vital Signs Date Temp Pulse Resp B/P (MAP) Pulse Ox O2 O2 Flow FiO2 Time Delivery Rate 02/05/19 98.3 70 19 149/66 95 Room Air 08:00 (93) 02/04/19 21 20:44 Intake and Output 02/04/19 02/04/19 02/05/19 1515:00 23:00 07:00 IntakeIntake Total 960 ml 240 ml 480 ml OutputOutput Total 550 ml 100 ml BalanceBalance 410 ml 140 ml 480 ml Results Result Diagram: 02/04/19 0536 02/04/19 0536 Medications Medication Current Medications IV Flush (NS 3 ml) 3 ml PER PROTOCOL IV ; Start 01/11/19 at 13:00 Ondansetron HCl (Zofran Inj) 4 mg Q6H PRN IV NAUSEA/VOMITING Last administered on 01/28/19at 01:43; Admin Dose 4 MG; Start 01/11/19 at 13:00 Acetaminophen (Tylenol Tab) 650 mg Q6H PRN PO .PAIN 1-3 OR TEMP; Start 01/11/19 at 13:00 Albuterol (Proventil 0.083% (Neb)) 2.5 mg Q6 PRN HHN shortness of breath; Start 01/11/19 at 13:00 Clonidine (Catapres) 0.1 mg Q6H PRN PO systolic BP > 160 Last administered on 01/12/19 21:31; Admin Dose 0.1 MG; Start 01/12/19 at 21:00 Allopurinol (Zyloprim) 100 mg DAILY PO Last administered on 02/05/19 08:54; Admin Dose 100 MG; Start 01/13/19 at 09:00 Ascorbic Acid (Vitamin C) 500 mg DAILY PO Last administered on 02/05/19 08:54; Admin Dose 500 MG; Start 01/13/19 at 09:00 Docusate Sodium (Colace) 200 mg QHS PO Last administered on 02/04/19 20:34; Admin Dose 200 MG; Start 01/13/19 at 21:00 Epoetin Ghulam-epbx (RETACRIT(non-esrd)) 10,000 unit Q48H SC Last administered on 01/25/19 18:32; Admin Dose 10,000 UNIT; Start 01/13/19 at 18:00; Status Hold Ferrous Sulfate (Ferrous Sulfate (Ec)) 325 mg DAILY PO Last administered on 02/05/19 08:54; Admin Dose 325 MG; Start 01/13/19 at 09:00 Folic Acid (Folic Acid) 1 mg DAILY PO Last administered on 02/05/19 08:54; Admin Dose 1 MG; Start 01/13/19 at 09:00 Lorazepam (Ativan) 1 mg BID PRN PO ANXIETY Last administered on 01/14/19 20:36; Admin Dose 1 MG; Start 01/13/19 at 06:30 Rifaximin (Xifaxan) 550 mg BID PO Last administered on 02/05/19 08:54; Admin Dose 550 MG; Start 01/13/19 at 09:00 Tamsulosin HCl (Flomax) 0.4 mg HS PO Last administered on 02/04/19 20:35; Admin Dose 0.4 MG; Start 01/13/19 at 21:00 Thiamine HCl (Vitamin B1) 100 mg DAILY PO Last administered on 02/05/19 08:54; Admin Dose 100 MG; Start 01/13/19 at 09:00 Arformoterol Tartrate (Brovana (Neb)) 2 ml BID RESP THERAPY INH Last administered on 02/04/19 20:42; Admin Dose 2 ML; Start 01/13/19 at 09:00 Budesonide (Pulmicort (Neb)) 0.5 mg Q12H RESP THERAPY INH Last administered on 02/04/19 20:42; Admin Dose 0.5 MG; Start 01/13/19 at 09:00 Nicotine (Nicoderm 21 Mg/ 24hr) 1 patch DAILY TRANSDERM Last administered on 02/05/19 08:55; Admin Dose 1 PATCH; Start 01/14/19 at 09:00 Famotidine (Pepcid) 20 mg Q12 PO Last administered on 02/05/19 08:54; Admin Dose 20 MG; Start 01/13/19 at 21:00 Buspirone HCl (Buspar) 10 mg BID PO Last administered on 02/05/19 08:52; Admin Dose 10 MG; Start 01/16/19 at 12:30 Amlodipine Besylate (Norvasc) 5 mg BID PO Last administered on 02/05/19 08:54; Admin Dose 5 MG; Start 01/21/19 at 21:00 Hydromorphone HCl (Dilaudid) 2 mg Q4H PRN IV SEVERE PAIN LEVEL 7-10 Last administered on 02/05/19 12:51; Admin Dose 2 MG; Start 01/25/19 at 14:00 Lorazepam (Ativan) 1 mg Q6H PRN IV ANXIETY Last administered on 02/05/19 10:11; Admin Dose 1 MG; Start 01/25/19 at 14:00 Simethicone (Mylicon) 80 mg Q6 PRN PO bloating; Start 01/26/19 at 07:00 Eye Lubricant (Artificial Tears Oph) 2 drop Q6H PRN BOTH EYES DRY EYES Last administered on 02/01/19 22:14; Admin Dose 2 DROP; Start 01/26/19 at 07:00 Lubiprostone (Amitiza) 24 mcg BID PO Last administered on 02/05/19 08:52; Admin Dose 24 MCG; Start 01/26/19 at 09:00 Linezolid (Zyvox) 600 mg BID PO Last administered on 02/05/19 08:54; Admin Dose 600 MG; Start 01/28/19 at 13:30 Citric Acid/ Sodium Citrate (Bicitra) 30 ml TID PO Last administered on 02/05/19 12:26; Admin Dose 30 ML; Start 01/29/19 at 09:00 Metoprolol Succinate (Toprol Xl) 50 mg HS PO Last administered on 02/04/19 20:35; Admin Dose 50 MG; Start 01/29/19 at 21:00 Polyethylene Glycol (Miralax) 17 gm DAILY PRN PO CONSTIPATION Last administered on 02/05/19 03:38; Admin Dose 17 GM; Start 01/29/19 at 19:30 Oxycodone HCl (Roxicodone) 10 mg Q4H PRN PO MODERATE PAIN LEVEL 4-6 Last administered on 02/05/19 11:16; Admin Dose 10 MG; Start 01/30/19 at 17:30 Levothyroxine Sodium (Synthroid) 250 mcg DAILY@06 PO Last administered on 02/05/19 05:44; Admin Dose 250 MCG; Start 02/03/19 at 06:00 Furosemide (Lasix) 40 mg DAILY PO Last administered on 02/05/19 08:54; Admin Dose 40 MG; Start 02/05/19 at 09:00 Metoprolol Succinate (Toprol Xl) 75 mg DAILY PO Last administered on 02/05/19 08:53; Admin Dose 75 MG; Start 02/05/19 at 09:00 MELISSA NASH NP February 05, 2019 13:54
[2019-02-05 14:20] VITALS: BP 137/63; PULSE 83; RESP 19
--- NOTE | 2019-02-05 18:32 | CONS ---
Assessment/Plan Assessment/Plan Assessment/Plan (Daily) 1. acute on chronic renal failure due to Type II hepatorenal syndrome 2. SIRS 3. anemia of CKD 5. Decompensated Liver cirrhosis with Symptomatic ascites 6. H/O HTN 7. h/o Liver cirrhosis with ascites 8. H/o Diastolic CHF 9. Bilateral LE chronic venous stasis 10.H/o BPH on Flomax 11. Acute hyperkalemia 12. Metabolic acidosis Plan: BUN/Cr improved to 36/1.79 - other electrolytes stable - no labs today to review yet Continue bicitra 30ml PO TID for acidosis, pt is on Zyvox 600mg BID, watch for acidosis Continue Lasix to 20mg po daily, Toprol Xl 50mg BID, amlodipine 5 mg po BID, -EGD done April 2018 showed duodenal ulcer and gastritis -s/p colonoscopy 01/28/19 Flomax 0.4mg po daily for BPH will follow up Consultation Date/Type/Reason Admit Date/Time Jan 11, 2019 at 09:53 Initial Consult Date 01/11/19 Type of Consult NEPHROLOGY Requesting Provider: KOKO MARLOW MD Date/Time of Note DATE: 02/05/19 TIME: 18:32 Exam/Review of Systems Exam Vitals Vital Signs Date Temp Pulse Resp B/P (MAP) Pulse Ox O2 O2 Flow FiO2 Time Delivery Rate 02/05/19 97.6 83 19 137/63 96 Room Air 14:20 (87) 02/04/19 21 20:44 Intake and Output 02/04/19 02/04/19 02/05/19 1515:00 23:00 07:00 IntakeIntake Total 960 ml 240 ml 480 ml OutputOutput Total 550 ml 100 ml BalanceBalance 410 ml 140 ml 480 ml Exam Constitutional: alert, well developed, obese Respiratory: diminished breath sounds (at bases bilaterally) Cardiovascular: nl pulses, other (s1s2) Gastrointestinal: soft, non-tender Musculoskeletal: muscle weakness Extremities: normal pulses 1+ pitting edema, no cyanosis Results Result Diagram: 02/04/19 0536 02/04/19 0536 Medications Medication Current Medications IV Flush (NS 3 ml) 3 ml PER PROTOCOL IV ; Start 01/11/19 at 13:00 Ondansetron HCl (Zofran Inj) 4 mg Q6H PRN IV NAUSEA/VOMITING Last administered on 01/28/19 01:43; Admin Dose 4 MG; Start 01/11/19 at 13:00 Acetaminophen (Tylenol Tab) 650 mg Q6H PRN PO .PAIN 1-3 OR TEMP; Start 01/11/19 at 13:00 Albuterol (Proventil 0.083% (Neb)) 2.5 mg Q6 PRN HHN shortness of breath; Start 01/11/19 at 13:00 Clonidine (Catapres) 0.1 mg Q6H PRN PO systolic BP > 160 Last administered on 01/12/19 21:31; Admin Dose 0.1 MG; Start 01/12/19 at 21:00 Allopurinol (Zyloprim) 100 mg DAILY PO Last administered on 02/05/19 08:54; Admin Dose 100 MG; Start 01/13/19 at 09:00 Ascorbic Acid (Vitamin C) 500 mg DAILY PO Last administered on 02/05/19 08:54; Admin Dose 500 MG; Start 01/13/19 at 09:00 Docusate Sodium (Colace) 200 mg QHS PO Last administered on 02/04/19 20:34; Admin Dose 200 MG; Start 01/13/19 at 21:00 Epoetin Ghulam-epbx (RETACRIT(non-esrd)) 10,000 unit Q48H SC Last administered on 01/25/19 18:32; Admin Dose 10,000 UNIT; Start 01/13/19 at 18:00; Status Hold Ferrous Sulfate (Ferrous Sulfate (Ec)) 325 mg DAILY PO Last administered on 02/05/19 08:54; Admin Dose 325 MG; Start 01/13/19 at 09:00 Folic Acid (Folic Acid) 1 mg DAILY PO Last administered on 02/05/19 08:54; Admin Dose 1 MG; Start 01/13/19 at 09:00 Lorazepam (Ativan) 1 mg BID PRN PO ANXIETY Last administered on 01/14/19 20:36; Admin Dose 1 MG; Start 01/13/19 at 06:30 Rifaximin (Xifaxan) 550 mg BID PO Last administered on 02/05/19 08:54; Admin Dose 550 MG; Start 01/13/19 at 09:00 Tamsulosin HCl (Flomax) 0.4 mg HS PO Last administered on 02/04/19 20:35; Admin Dose 0.4 MG; Start 01/13/19 at 21:00 Thiamine HCl (Vitamin B1) 100 mg DAILY PO Last administered on 02/05/19 08:54; Admin Dose 100 MG; Start 01/13/19 at 09:00 Arformoterol Tartrate (Brovana (Neb)) 2 ml BID RESP THERAPY INH Last administered on 02/04/19 20:42; Admin Dose 2 ML; Start 01/13/19 at 09:00 Budesonide (Pulmicort (Neb)) 0.5 mg Q12H RESP THERAPY INH Last administered on 02/04/19 20:42; Admin Dose 0.5 MG; Start 01/13/19 at 09:00 Nicotine (Nicoderm 21 Mg/ 24hr) 1 patch DAILY TRANSDERM Last administered on 02/05/19 08:55; Admin Dose 1 PATCH; Start 01/14/19 at 09:00 Famotidine (Pepcid) 20 mg Q12 PO Last administered on 02/05/19 08:54; Admin Dose 20 MG; Start 01/13/19 at 21:00 Buspirone HCl (Buspar) 10 mg BID PO Last administered on 02/05/19 08:52; Admin Dose 10 MG; Start 01/16/19 at 12:30 Amlodipine Besylate (Norvasc) 5 mg BID PO Last administered on 02/05/19 08:54; Admin Dose 5 MG; Start 01/21/19 at 21:00 Hydromorphone HCl (Dilaudid) 2 mg Q4H PRN IV SEVERE PAIN LEVEL 7-10 Last administered on 02/05/19 17:07; Admin Dose 2 MG; Start 01/25/19 at 14:00 Lorazepam (Ativan) 1 mg Q6H PRN IV ANXIETY Last administered on 02/05/19 18:21; Admin Dose 1 MG; Start 01/25/19 at 14:00 Simethicone (Mylicon) 80 mg Q6 PRN PO bloating; Start 01/26/19 at 07:00 Eye Lubricant (Artificial Tears Oph) 2 drop Q6H PRN BOTH EYES DRY EYES Last administered on 02/01/19 22:14; Admin Dose 2 DROP; Start 01/26/19 at 07:00 Lubiprostone (Amitiza) 24 mcg BID PO Last administered on 02/05/19 08:52; Admin Dose 24 MCG; Start 01/26/19 at 09:00 Linezolid (Zyvox) 600 mg BID PO Last administered on 02/05/19 08:54; Admin Dose 600 MG; Start 01/28/19 at 13:30 Citric Acid/ Sodium Citrate (Bicitra) 30 ml TID PO Last administered on 02/05/19 12:26; Admin Dose 30 ML; Start 01/29/19 at 09:00 Metoprolol Succinate (Toprol Xl) 50 mg HS PO Last administered on 02/04/19 20:35; Admin Dose 50 MG; Start 01/29/19 at 21:00 Polyethylene Glycol (Miralax) 17 gm DAILY PRN PO CONSTIPATION Last administered on 02/05/19 03:38; Admin Dose 17 GM; Start 01/29/19 at 19:30 Oxycodone HCl (Roxicodone) 10 mg Q4H PRN PO MODERATE PAIN LEVEL 4-6 Last administered on 02/05/19 15:20; Admin Dose 10 MG; Start 01/30/19 at 17:30 Levothyroxine Sodium (Synthroid) 250 mcg DAILY@06 PO Last administered on 02/05/19 05:44; Admin Dose 250 MCG; Start 02/03/19 at 06:00 Furosemide (Lasix) 40 mg DAILY PO Last administered on 02/05/19 08:54; Admin Dose 40 MG; Start 02/05/19 at 09:00 Metoprolol Succinate (Toprol Xl) 75 mg DAILY PO Last administered on 02/05/19 08:53; Admin Dose 75 MG; Start 02/05/19 at 09:00 ELADIO DELGADO MD February 05, 2019 18:32
[2019-02-05 20:30] VITALS: BP 158/72; PULSE 73; RESP 18
[2019-02-05] MEDS: TAMSULOSIN (SR) 0.4 MG CAP PO SCH (20:34)
[2019-02-05] MEDS: DOCUSATE SODIUM 100 MG CAP PO SCH (20:34)
[2019-02-06] MEDS: HYDROmorphONE 2 MG/ML SYG IV PRN ×4 (01:18→13:22)
[2019-02-06 02:35] VITALS: BP 144/65; PULSE 79; RESP 18
[2019-02-06] MEDS: LORAZEPAM 2 MG INJ IV PRN ×2 (02:38→10:16)
[2019-02-06] MEDS: oxyCODONE 5 MG TAB PO PRN (03:49)
[2019-02-06] MEDS: LEVOTHYROXINE 125 MCG TAB PO SCH (05:15)
--- NOTE | 2019-02-06 05:36 | PN ---
Date/Time of Note Date/Time of Note DATE: 02/06/19 TIME: 05:35 Assessment/Plan VTE Prophylaxis Risk score (from Nsg)>0 risk: 5 SCD applied (from Nsg): No Lines/Catheters IV Catheter Type (from Nrsg): Saline Lock Urinary Cath still in place: No Assessment/Plan Assessment/Plan -Shortness of breath, rule out acute coronary syndrome, cardiac enzymes are negative x3. -Acute on chronic diastolic congestive heart failure. Continue Lasix. Dr. Foley is following in cardiology consultation. -COPD exacerbation, continue bronchodilators, steroids, and oxygen supplementation. -Anemia, Dr. Mayes is following in gastroenterology consultation. -Alcoholic liver cirrhosis -Acute kidney injury on chronic kidney disease. Dr. Leung is following in nephrology consultation. -Bilateral lower extremities chronic venous stasis -Left foot plantar ulcer. Dr. Younger is following in podiatry consultation. -Obesity -Nicotine dependence, continue nicotine patch, cessation is strongly advised. -Ongoing alcohol use, cessation is strongly advised. -Poor medical compliance -Chronic pain- geovanny get pain management consult w/Dr Oneil Disposition - case finishing machine adjuster to arrange for placement. dw staff Result Diagram: 02/04/19 0536 02/04/19 0536 Subjective 24 Hr Interval Summary Free Text/Dictation case finishing machine adjuster to arrange for placement. Exam/Review of Systems Exam Vitals Vital Signs Date Temp Pulse Resp B/P (MAP) Pulse Ox O2 O2 Flow FiO2 Time Delivery Rate 02/06/19 98.5 79 18 144/65 95 02:35 (91) 02/05/19 21 20:23 02/05/19 Room Air 14:20 Intake and Output 02/05/19 02/05/19 02/06/19 1515:00 23:00 07:00 IntakeIntake Total 800 ml 1500 ml OutputOutput Total 300 ml 500 ml BalanceBalance 500 ml 1000 ml Medications Medication Current Medications IV Flush (NS 3 ml) 3 ml PER PROTOCOL IV ; Start 01/11/19 at 13:00 Ondansetron HCl (Zofran Inj) 4 mg Q6H PRN IV NAUSEA/VOMITING Last administered on 01/28/19at 01:43; Admin Dose 4 MG; Start 01/11/19 at 13:00 Acetaminophen (Tylenol Tab) 650 mg Q6H PRN PO .PAIN 1-3 OR TEMP; Start 01/11/19 at 13:00 Albuterol (Proventil 0.083% (Neb)) 2.5 mg Q6 PRN HHN shortness of breath; Start 01/11/19 at 13:00 Clonidine (Catapres) 0.1 mg Q6H PRN PO systolic BP > 160 Last administered on 01/12/19 21:31; Admin Dose 0.1 MG; Start 01/12/19 at 21:00 Allopurinol (Zyloprim) 100 mg DAILY PO Last administered on 02/05/19 08:54; Admin Dose 100 MG; Start 01/13/19 at 09:00 Ascorbic Acid (Vitamin C) 500 mg DAILY PO Last administered on 02/05/19 08:54; Admin Dose 500 MG; Start 01/13/19 at 09:00 Docusate Sodium (Colace) 200 mg QHS PO Last administered on 02/05/19 20:34; Admin Dose 200 MG; Start 01/13/19 at 21:00 Epoetin Ghulam-epbx (RETACRIT(non-esrd)) 10,000 unit Q48H SC Last administered on 01/25/19 18:32; Admin Dose 10,000 UNIT; Start 01/13/19 at 18:00; Status Hold Ferrous Sulfate (Ferrous Sulfate (Ec)) 325 mg DAILY PO Last administered on 02/05/19 08:54; Admin Dose 325 MG; Start 01/13/19 at 09:00 Folic Acid (Folic Acid) 1 mg DAILY PO Last administered on 02/05/19 08:54; Admin Dose 1 MG; Start 01/13/19 at 09:00 Lorazepam (Ativan) 1 mg BID PRN PO ANXIETY Last administered on 01/14/19 20:36; Admin Dose 1 MG; Start 01/13/19 at 06:30 Rifaximin (Xifaxan) 550 mg BID PO Last administered on 02/05/19 20:34; Admin Dose 550 MG; Start 01/13/19 at 09:00 Tamsulosin HCl (Flomax) 0.4 mg HS PO Last administered on 02/05/19 20:34; Admin Dose 0.4 MG; Start 01/13/19 at 21:00 Thiamine HCl (Vitamin B1) 100 mg DAILY PO Last administered on 02/05/19 08:54; Admin Dose 100 MG; Start 01/13/19 at 09:00 Arformoterol Tartrate (Brovana (Neb)) 2 ml BID RESP THERAPY INH Last administered on 02/05/19 20:23; Admin Dose 2 ML; Start 01/13/19 at 09:00 Budesonide (Pulmicort (Neb)) 0.5 mg Q12H RESP THERAPY INH Last administered on 02/05/19 20:23; Admin Dose 0.5 MG; Start 01/13/19 at 09:00 Nicotine (Nicoderm 21 Mg/ 24hr) 1 patch DAILY TRANSDERM Last administered on 02/05/19 08:55; Admin Dose 1 PATCH; Start 01/14/19 at 09:00 Famotidine (Pepcid) 20 mg Q12 PO Last administered on 02/05/19 20:34; Admin Dose 20 MG; Start 01/13/19 at 21:00 Buspirone HCl (Buspar) 10 mg BID PO Last administered on 02/05/19 20:34; Admin Dose 10 MG; Start 01/16/19 at 12:30 Amlodipine Besylate (Norvasc) 5 mg BID PO Last administered on 02/05/19 20:42; Admin Dose 5 MG; Start 01/21/19 at 21:00 Hydromorphone HCl (Dilaudid) 2 mg Q4H PRN IV SEVERE PAIN LEVEL 7-10 Last administered on 02/06/19 05:15; Admin Dose 2 MG; Start 01/25/19 at 14:00 Lorazepam (Ativan) 1 mg Q6H PRN IV ANXIETY Last administered on 02/06/19 02:38; Admin Dose 1 MG; Start 01/25/19 at 14:00 Simethicone (Mylicon) 80 mg Q6 PRN PO bloating; Start 01/26/19 at 07:00 Eye Lubricant (Artificial Tears Oph) 2 drop Q6H PRN BOTH EYES DRY EYES Last adm inistered on 02/01/19 22:14; Admin Dose 2 DROP; Start 01/26/19 at 07:00 Lubiprostone (Amitiza) 24 mcg BID PO Last administered on 02/05/19 20:35; Admin Dose 24 MCG; Start 01/26/19 at 09:00 Linezolid (Zyvox) 600 mg BID PO Last administered on 02/05/19 20:34; Admin Dose 600 MG; Start 01/28/19 at 13:30 Citric Acid/ Sodium Citrate (Bicitra) 30 ml TID PO Last administered on 02/05/19 20:46; Admin Dose 30 ML; Start 01/29/19 at 09:00 Metoprolol Succinate (Toprol Xl) 50 mg HS PO Last administered on 02/05/19 20:42; Admin Dose 50 MG; Start 01/29/19 at 21:00 Polyethylene Glycol (Miralax) 17 gm DAILY PRN PO CONSTIPATION Last administered on 02/05/19 03:38; Admin Dose 17 GM; Start 01/29/19 at 19:30 Oxycodone HCl (Roxicodone) 10 mg Q4H PRN PO MODERATE PAIN LEVEL 4-6 Last administered on 02/06/19 03:49; Admin Dose 10 MG; Start 01/30/19 at 17:30 Levothyroxine Sodium (Synthroid) 250 mcg DAILY@06 PO Last administered on 02/06/19 05:15; Admin Dose 250 MCG; Start 02/03/19 at 06:00 Furosemide (Lasix) 40 mg DAILY PO Last administered on 02/05/19 08:54; Admin Dose 40 MG; Start 02/05/19 at 09:00 Metoprolol Succinate (Toprol Xl) 75 mg DAILY PO Last administered on 02/05/19 08:53; Admin Dose 75 MG; Start 02/05/19 at 09:00 GO LAMBERT February 06, 2019 05:36
[2019-02-06 08:00] VITALS: BP 156/70; PULSE 68; RESP 18
[2019-02-06] MEDS: BUDESONIDE (NEB) 0.5MG/2ML AMP INH SCH (08:00)
[2019-02-06] MEDS: ARFORMOTEROL TARTRATE 15MCG/2 ML AMP INH SCH (09:00)
[2019-02-06] MEDS: CITRIC ACID/NA CITRATE 30 ML CUP PO SCH ×2 (09:14→14:01)
[2019-02-06] MEDS: RIFAXIMIN 550 MG TAB PO SCH (09:15)
[2019-02-06] MEDS: ASCORBIC ACID 500 MG TAB PO SCH (09:15)
[2019-02-06] MEDS: FAMOTIDINE 20 MG TAB PO SCH (09:15)
[2019-02-06] MEDS: THIAMINE 100 MG TAB PO SCH (09:15)
[2019-02-06] MEDS: LUBIPROSTONE 24 MCG CAP PO SCH (09:15)
[2019-02-06] MEDS: BUSPIRONE 10 MG TAB PO SCH (09:15)
[2019-02-06] MEDS: AMLODIPINE 5 MG TAB PO SCH (09:15)
[2019-02-06] MEDS: FERROUS SULFATE (EC) 325 MG TAB PO SCH (09:16)
[2019-02-06] MEDS: FOLIC ACID 1 MG TAB PO SCH (09:16)
[2019-02-06] MEDS: ZYVOX 600 MG TAB PO SCH (09:16)
[2019-02-06] MEDS: ALLOPURINOL 100 MG TAB PO SCH (09:16)
[2019-02-06] MEDS: METOPROLOL (XL) 25 MG TAB PO SCH (09:16)
[2019-02-06] MEDS: FUROSEMIDE 40 MG TAB PO SCH (09:17)
[2019-02-06] MEDS: NICOTINE (21 MG/24 HR) PATCH TRANSDERM SCH (09:19)
[2019-02-06 14:00] VITALS: BP 149/68; PULSE 78; RESP 18
--- NOTE | 2019-02-06 14:17 | CONS ---
Assessment/Plan Assessment/Plan Hospital Course (Demo Recall) No acute changes Antimicrobials: Zyvox Physical examination: This is a wasted well-developed chronically ill-appearing elderly man who is in no distress. Head atraumatic normocephalic sclera nonicteric. Neck is supple chest rise symmetrical breath sounds diminished bases. Heart: S1-S2. Abdomen soft bowel sounds present. Extremities without BLE edema, mild erythema, no cyanosis. Assessment: 1. Systemic inflammatory response syndrome with ongoing leukocytosis, clinically stable 2. S/p COPD exacerbation 3. Alcohol abuse 4. Bilateral lower extremities acute on chronic cellulitis/chronic venous stasis 5. Cirrhosis with recurrent ascites 6. Chronic kidney disease 7. CHF 8. Noncompliance 9. Anemia/gastritis/esophagitis per EGD Plan: Remains stable, continue present care, renal/GI rec-s, ok dc off abx Consultation Date/Type/Reason Admit Date/Time Jan 11, 2019 at 09:53 Initial Consult Date Type of Consult id Requesting Provider: KOKO MARLOW MD Date/Time of Note DATE: 02/06/19 TIME: 14:16 Exam/Review of Systems Exam Vitals Vital Signs Date Temp Pulse Resp B/P (MAP) Pulse Ox O2 O2 Flow FiO2 Time Delivery Rate 02/06/19 97.9 68 18 156/70 96 Room Air 08:00 (98) 02/05/19 21 20:23 Intake and Output 02/05/19 02/05/19 02/06/19 1515:00 23:00 07:00 IntakeIntake Total 800 ml 1500 ml OutputOutput Total 300 ml 500 ml BalanceBalance 500 ml 1000 ml Results Result Diagram: 02/04/19 0536 02/06/19 0509 Results 24hrs Laboratory Tests Test 02/06/19 05:09 Sodium Level 140 Potassium Level 4.8 Chloride Level 108 Carbon Dioxide Level 23 Anion Gap 9 Blood Urea Nitrogen 40 H Creatinine 1.79 H Est Glomerular Filtrat Rate mL/min 39 L Glucose Level 96 Calcium Level 9.1 Magnesium Level 1.9 Medications Medication Current Medications IV Flush (NS 3 ml) 3 ml PER PROTOCOL IV ; Start 01/11/19 at 13:00 Ondansetron HCl (Zofran Inj) 4 mg Q6H PRN IV NAUSEA/VOMITING Last administered on 01/28/19at 01:43; Admin Dose 4 MG; Start 01/11/19 at 13:00 Acetaminophen (Tylenol Tab) 650 mg Q6H PRN PO .PAIN 1-3 OR TEMP; Start 01/11/19 at 13:00 Albuterol (Proventil 0.083% (Neb)) 2.5 mg Q6 PRN HHN shortness of breath; Start 01/11/19 at 13:00 Clonidine (Catapres) 0.1 mg Q6H PRN PO systolic BP > 160 Last administered on 01/12/19 21:31; Admin Dose 0.1 MG; Start 01/12/19 at 21:00 Allopurinol (Zyloprim) 100 mg DAILY PO Last administered on 02/06/19 09:16; Admin Dose 100 MG; Start 01/13/19 at 09:00 Ascorbic Acid (Vitamin C) 500 mg DAILY PO Last administered on 02/06/19 09:15; Admin Dose 500 MG; Start 01/13/19 at 09:00 Docusate Sodium (Colace) 200 mg QHS PO Last administered on 02/05/19 20:34; Admin Dose 200 MG; Start 01/13/19 at 21:00 Epoetin Ghulam-epbx (RETACRIT(non-esrd)) 10,000 unit Q48H SC Last administered on 01/25/19 18:32; Admin Dose 10,000 UNIT; Start 01/13/19 at 18:00; Status Hold Ferrous Sulfate (Ferrous Sulfate (Ec)) 325 mg DAILY PO Last administered on 02/06/19 09:16; Admin Dose 325 MG; Start 01/13/19 at 09:00 Folic Acid (Folic Acid) 1 mg DAILY PO Last administered on 02/06/19 09:16; Admin Dose 1 MG; Start 01/13/19 at 09:00 Lorazepam (Ativan) 1 mg BID PRN PO ANXIETY Last administered on 01/14/19 20:36; Admin Dose 1 MG; Start 01/13/19 at 06:30 Rifaximin (Xifaxan) 550 mg BID PO Last administered on 02/06/19 09:15; Admin Dose 550 MG; Start 01/13/19 at 09:00 Tamsulosin HCl (Flomax) 0.4 mg HS PO Last administered on 02/05/19 20:34; Admin Dose 0.4 MG; Start 01/13/19 at 21:00 Thiamine HCl (Vitamin B1) 100 mg DAILY PO Last administered on 02/06/19 09:15; Admin Dose 100 MG; Start 01/13/19 at 09:00 Arformoterol Tartrate (Brovana (Neb)) 2 ml BID RESP THERAPY INH Last administered on 02/05/19 20:23; Admin Dose 2 ML; Start 01/13/19 at 09:00 Budesonide (Pulmicort (Neb)) 0.5 mg Q12H RESP THERAPY INH Last administered on 02/05/19 20:23; Admin Dose 0.5 MG; Start 01/13/19 at 09:00 Nicotine (Nicoderm 21 Mg/ 24hr) 1 patch DAILY TRANSDERM Last administered on 02/06/19 09:19; Admin Dose 1 PATCH; Start 01/14/19 at 09:00 Famotidine (Pepcid) 20 mg Q12 PO Last administered on 02/06/19 09:15; Admin Dose 20 MG; Start 01/13/19 at 21:00 Buspirone HCl (Buspar) 10 mg BID PO Last administered on 02/06/19 09:15; Admin Dose 10 MG; Start 01/16/19 at 12:30 Amlodipine Besylate (Norvasc) 5 mg BID PO Last administered on 02/06/19 09:15; Admin Dose 5 MG; Start 01/21/19 at 21:00 Hydromorphone HCl (Dilaudid) 2 mg Q4H PRN IV SEVERE PAIN LEVEL 7-10 Last administered on 02/06/19 13:22; Admin Dose 2 MG; Start 01/25/19 at 14:00 Lorazepam (Ativan) 1 mg Q6H PRN IV ANXIETY Last administered on 02/06/19 10:16; Admin Dose 1 MG; Start 01/25/19 at 14:00 Simethicone (Mylicon) 80 mg Q6 PRN PO bloating; Start 01/26/19 at 07:00 Eye Lubricant (Artificial Tears Oph) 2 drop Q6H PRN BOTH EYES DRY EYES Last administered on 02/01/19 22:14; Admin Dose 2 DROP; Start 01/26/19 at 07:00 Lubiprostone (Amitiza) 24 mcg BID PO Last administered on 02/06/19 09:15; Admin Dose 24 MCG; Start 01/26/19 at 09:00 Linezolid (Zyvox) 600 mg BID PO Last administered on 02/06/19 09:16; Admin Dose 600 MG; Start 01/28/19 at 13:30 Citric Acid/ Sodium Citrate (Bicitra) 30 ml TID PO Last administered on 02/06/19 14:01; Admin Dose 30 ML; Start 01/29/19 at 09:00 Metoprolol Succinate (Toprol Xl) 50 mg HS PO Last administered on 02/05/19 20:42; Admin Dose 50 MG; Start 01/29/19 at 21:00 Polyethylene Glycol (Miralax) 17 gm DAILY PRN PO CONSTIPATION Last administered on 02/05/19 03:38; Admin Dose 17 GM; Start 01/29/19 at 19:30 Oxycodone HCl (Roxicodone) 10 mg Q4H PRN PO MODERATE PAIN LEVEL 4-6 Last administered on 02/06/19 03:49; Admin Dose 10 MG; Start 01/30/19 at 17:30 Levothyroxine Sodium (Synthroid) 250 mcg DAILY@06 PO Last administered on 02/06/19 05:15; Admin Dose 250 MCG; Start 02/03/19 at 06:00 Furosemide (Lasix) 40 mg DAILY PO Last administered on 02/06/19 09:17; Admin Dose 40 MG; Start 02/05/19 at 09:00 Metoprolol Succinate (Toprol Xl) 75 mg DAILY PO Last administered on 02/06/19 09:16; Admin Dose 75 MG; Start 02/05/19 at 09:00 MELISSA NASH NP February 06, 2019 14:17
[2019-02-06] MEDS ORDERED: LEVO125T7 PO (14:26)
--- NOTE | 2019-02-06 14:29 | PDOCDIS ---
Discharge Instructions CONDITION [id number] Patient Condition: [id number] Good HOME CARE INSTRUCTIONS: [id number] Diet Instructions: [id number] Reduced Sodium ACTIVITY: [id number] Activity Restrictions: [id number] Slowly Increase Activity FOLLOW UP/APPOINTMENTS Follow-up Plan PMD next week KOKO MARLOW MD February 06, 2019 14:29
--- NOTE | 2019-02-06 18:15 | CONS ---
Assessment/Plan Assessment/Plan Assessment/Plan (Daily) 1. acute on chronic renal failure due to Type II hepatorenal syndrome 2. SIRS 3. anemia of CKD 5. Decompensated Liver cirrhosis with Symptomatic ascites 6. H/O HTN 7. h/o Liver cirrhosis with ascites 8. H/o Diastolic CHF 9. Bilateral LE chronic venous stasis 10.H/o BPH on Flomax 11. Acute hyperkalemia 12. Metabolic acidosis Plan: BUN/Cr improved to 36/1.79 - other electrolytes stable Continue bicitra 30ml PO TID for acidosis, pt is on Zyvox 600mg BID, watch for acidosis Continue Lasix to 20mg po daily, Toprol Xl 50mg BID, amlodipine 5 mg po BID, -EGD done April 2018 showed duodenal ulcer and gastritis -s/p colonoscopy 01/28/19 Flomax 0.4mg po daily for BPH will follow up Consultation Date/Type/Reason Admit Date/Time Jan 11, 2019 at 09:53 Initial Consult Date 01/11/19 Type of Consult NEPHROLOGY Requesting Provider: KOKO MARLOW MD Date/Time of Note DATE: 02/06/19 TIME: 18:14 Exam/Review of Systems Exam Vitals Vital Signs Date Temp Pulse Resp B/P (MAP) Pulse Ox O2 O2 Flow FiO2 Time Delivery Rate 02/06/19 97.9 78 18 149/68 96 Room Air 14:00 (95) 02/05/19 21 20:23 Intake and Output 02/05/19 02/05/19 02/06/19 1515:00 23:00 07:00 IntakeIntake Total 800 ml 1500 ml OutputOutput Total 300 ml 500 ml BalanceBalance 500 ml 1000 ml Results Result Diagram: 02/04/19 0536 02/06/19 0509 Results 24hrs Laboratory Tests Test 02/06/19 05:09 Sodium Level 140 Potassium Level 4.8 Chloride Level 108 Carbon Dioxide Level 23 Anion Gap 9 Blood Urea Nitrogen 40 H Creatinine 1.79 H Est Glomerular Filtrat Rate mL/min 39 L Glucose Level 96 Calcium Level 9.1 Magnesium Level 1.9 ELADIO DELGADO MD February 06, 2019 18:15
== END 2019-02-06 15:35 | disposition home or self-care (01) | DRG 291 ==
LOC: E/R 08:26 → TEL 09:53 → PP2 01-15 03:35
PROVIDERS: ADMIT Internal Medicine; ATTEND Internal Medicine
PROC: 0DJD8ZZ Inspection of Lower Intestinal Tract, Via Natural or Artificial Opening Endoscopic (ICD-10-PCS; principal; 2019-01-28 12:30)
DX: I13.0 Hypertensive heart and chronic kidney disease with heart failure and stage 1 through stage 4 chronic kidney disease, or unspecified chronic kidney disease (principal); I50.33 Acute on chronic diastolic (congestive) heart failure; K76.7 Hepatorenal syndrome; R65.10 Systemic inflammatory response syndrome (SIRS) of non-infectious origin without acute organ dysfunction; N17.9 Acute kidney failure, unspecified; E87.2 Acidosis; J44.1 Chronic obstructive pulmonary disease with (acute) exacerbation; L03.116 Cellulitis of left lower limb; L03.115 Cellulitis of right lower limb; N18.9 Chronic kidney disease, unspecified; E03.9 Hypothyroidism, unspecified; D63.1 Anemia in chronic kidney disease; I87.8 Other specified disorders of veins; E66.9 Obesity, unspecified; E87.5 Hyperkalemia; N40.0 Benign prostatic hyperplasia without lower urinary tract symptoms; F10.20 Alcohol dependence, uncomplicated; K70.31 Alcoholic cirrhosis of liver with ascites; F41.9 Anxiety disorder, unspecified; F17.200 Nicotine dependence, unspecified, uncomplicated; K59.03 Drug induced constipation; T40.2X5A Adverse effect of other opioids, initial encounter; K64.4 Residual hemorrhoidal skin tags; M47.9 Spondylosis, unspecified; Z91.19 Patient's noncompliance with other medical treatment and regimen; Z68.32 Body mass index [BMI] 32.0-32.9, adult
CPT/HCPCS: 36415; 71045; 76705; 80048; 80053; 80307; 82140; 82378; 82550; 82553; 83036; 83735; 83880; 84443; 84484; 85025; 85610; 85730; 87086; 93005; 94640; 94664; J1170; J1335; J1650; J1940; J2060; J2185; J2405; Q5106

== ENCOUNTER 2019-03-12 06:35 | Inpatient (IN) | payer BC ==
[~2019-03-12] VITALS: Ht 188 cm; Wt 100.0 kg
[~2019-03-12 06:35] MED LIST changes: +ACET-141 PO; -ADV25050 INHALATION; -ALBU18HF INHALATION; +ALBU90AE INHALATION; +ALLO100T PO; -ALLO100T64 PO; +ARFO15VI INHALATION; +ASC500 PO; -ATRO INHALATION; +DOCU-144 PO; -DOCU-159 PO; +DORZ10DR22 BOTH EYES; +EPO10ESRD SC; +ERTA1VIA3 IM; +IPRA3AMP29 INHALATION; +LACT10SO5 PO; -LEVO100T8 PO; +LEVO125T7 PO; +LORA1TAB PO; -METO-336 PO; +ONDA4TAB13 PO; -PANT40TA3 PO; +PANT40TA4 PO; +SIME80TA60 PO; +SODI325T PO; -SODI650T PO; -SPIR50TA PO
[2019-03-12] MEDS ORDERED: LORAZEPAM 2 MG INJ IV STA (09:07)
[2019-03-12] MEDS ORDERED: ASPIRIN 325 MG TAB PO STA (09:07)
[2019-03-12] MEDS ORDERED: ALBUTEROL 0.083% (NEB) 2.5 MG/3 ML AMP NEB STA (09:07)
[2019-03-12] MEDS ORDERED: IPRATROPIUM (NEB) 0.5 MG/2.5 ML AMP NEB STA (09:07)
--- NOTE | 2019-03-12 09:10 | ERD ---
ER Documentation Chief Complaint Chief Complaint pt is bib self with c/o weakness, trouble walking, swollen legs, abd pain HPI This is a 63-year-old male. He has a known history of congestive heart failure. He also has a known history of alcoholism. He indicates his last drink was 10 hours prior to arrival. The patient is complaining of generalized weakness. He also complains of swelling of his legs but denies any calf tenderness. Contrary to the triage note he denies any abdominal pain. He has no chest pain. He has no shortness of breath. The patient indicates he feels as though he is going to withdrawal from his alcohol. He also has history of amphetamine and cocaine abuse but states he has not utilized any illicit drugs in the past several days. He denies any recent travel or prolonged immobilization. He said multiple previous emergency room visits for similar symptoms. He denies a headache. The patient states he feels very shaky and unsteady in his gait and has had a history of alcohol withdrawal seizures with similar symptoms. He denies a headache. He denies any changes in vision. ROS All systems reviewed and are negative except as per history of present illness. Medications Home Meds Reported Medications Lubiprostone* (Amitiza*) 24 Mcg Capsule, 24 MCG PO BID, #60 CAP 03/12/19 Oxycodone Hcl* (Oxycontin*) 10 Mg Tab.sr.12h, 10 MG PO NEEDED, TAB 03/12/19 Spironolactone* (Aldactone*) 25 Mg Tablet, 25 MG PO DAILY, #30 TAB 03/12/19 Pantoprazole* (Pantoprazole*) 40 Mg Tablet.dr, 40 MG PO AC BREAKFAST, TAB 03/12/19 Levothyroxine Sodium* (Levothyroxine Sodium*) 200 Mcg Tablet, 200 MCG PO BEFORE BREAKFAST, #30 TAB 03/12/19 Docusate Sodium* (Colace*) 100 Mg Capsule, 100 MG PO BID, #60 CAP 03/12/19 Lorazepam* (Lorazepam*) 1 Mg Tablet, 1 MG PO HS PRN for NEEDED, #30 TAB 03/12/19 Albuterol Sulfate* (Ventolin HFA*) 18 Gm Hfa.aer.ad, 2 PUFF INHALATION Q4H, #1 INHALER 03/12/19 Metoprolol Succinate* (Toprol XL*) 50 Mg Tab.er.24h, 50 MG PO DAILY, #30 TAB 03/12/19 Bumetanide* (Bumetanide*) 2 Mg Tablet, 2 MG PO BID, TAB 03/12/19 Allopurinol* (Allopurinol*) 100 Mg Tablet, 100 MG PO DAILY, TAB 03/12/19 Folic Acid* (Folic Acid*) 1 Mg Tablet, 1 MG PO DAILY, TAB 03/12/19 Hydralazine Hcl* (Hydralazine Hcl*) 25 Mg Tab, 25 MG PO Q8 PRN for PRN, #90 TAB 03/12/19 Acetaminophen* (Acetaminophen*) 500 MG Extra Strength Tablet, 500 MG PO Q4H PRN for MILD PAIN LEVEL 1-3, TAB 01/11/19 Discontinued Reported Medications Levothyroxine Sodium* (Levothyroxine Sodium*) 200 Mcg Tablet, 200 MCG PO BEFORE BREAKFAST, #30 TAB 03/12/19 Thiamine* (Vitamin B-1*) 100 Mg Tablet, 100 MG PO DAILY, TAB 01/11/19 Sodium Bicarbonate* (Sodium Bicarbonate*) 325 Mg Tablet, 325 MG PO TID, TAB 01/11/19 Simethicone* (Mylicon*) 80 Mg Tab, 80 MG PO Q6H, TAB 01/11/19 Albuterol Sulfate (Proair Respiclick) 90 Mcg Aer.pow.ba, 2 PUFFS INHALATION Q4H PRN for SHORTNESS OF BREATH, #1 BOTTLE 01/11/19 Pantoprazole* (Pantoprazole*) 40 Mg Tablet.dr, 40 MG PO AC BREAKFAST, TAB 01/11/19 Oxycodone Hcl* (Oxycontin*) 10 Mg Tab.sr.12h, 10 MG PO Q8H PRN for PAIN, TAB 01/11/19 Allopurinol* (Allopurinol*) 100 Mg Tablet, 100 MG PO DAILY, TAB 01/11/19 Rifaximin* (Xifaxan*) 550 Mg Tablet, 550 MG PO BID, TAB 01/11/19 Ondansetron Hcl* (Zofran*) 4 Mg Tab, 4 MG PO Q4H PRN for NAUSEA AND OR VOMITING, TAB 01/11/19 Ipratropium-Albuterol (Ipratropium-Albuterol) 0.5-3 Mg/3 Ml Ampul.neb, 3 ML INHALATION Q6 PRN for WHEEZING AND SOB, #30 VIAL 01/11/19 Gabapentin* (Gabapentin*) 100 Mg Capsule, 100 MG PO TID, #90 CAP 01/11/19 Furosemide* (Furosemide*) 40 Mg Tablet, 40 MG PO DAILY, TAB 01/11/19 Folic Acid* (Folic Acid*) 1 Mg Tablet, 1 MG PO DAILY, TAB 01/11/19 Tamsulosin Hcl* (Flomax*) 0.4 Mg Cap.er.24h, 0.4 MG PO HS, CAP 01/11/19 Ferrous Sulfate* (Ferrous Sulfate*) 325 Mg Tabec, 325 MG PO DAILY, TAB 01/11/19 Ertapenem Sodium (Invanz) 1 Gm Vial, 1 GM IM DAILY, VIAL 01/11/19 Epoetin Ghulam (Epogen) 10,000 Units/Ml Soln, 77158 UNITS SC Q TUE,SHARONA,SAT, VIAL 01/11/19 Lactulose* (Lactulose*) 10 Gm/15 Ml Solution, 30 ML PO Q6, ML 01/11/19 Docusate Sodium* (Colace*) 100 Mg Capsule, 200 MG PO QHS, #30 CAP 01/11/19 Dorzolamide-Timolol* (Cosopt*) 2%-0.5% - 10 Ml Soln, 1 DROP BOTH EYES BID, BOTTLE 01/11/19 Lorazepam* (Lorazepam*) 1 Mg Tablet, 1 MG PO NEEDED PRN for ANXIETY, #30 TAB 01/11/19 Ascorbic Acid (Vitamin C) 500 Mg Tab, 500 MG PO DAILY, TAB 01/11/19 Arformoterol Tartrate (Brovana) 15 Mcg/2 Ml Vial.neb, 15 MCG INHALATION BID, VIAL 01/11/19 Discontinued Scripts Levothyroxine Sodium* (Levothyroxine Sodium*) 125 Mcg Tablet, 250 MCG PO DAILY@06 for 30 Days, #30 TAB Prov:KOKO LARA MD 02/06/19 Allergies Allergies: Coded Allergies: Penicillins (Unverified Allergy, Unknown, 03/12/19) Patient strongly denies being allegic to PCN. He states, "I took that damn allergy band off. I'm not allergic to penicillen!" PMhx/Soc History of Surgery: Yes (ABDOMINAL SX, FISTULA PLACEMENT) Anesthesia Reaction: No Hx Neurological Disorder: No Hx Respiratory Disorders: Yes (COPD) Hx Cardiac Disorders: Yes (HTN, HDL, CHF ) Hx Psychiatric Problems: Yes Hx Miscellaneous Medical Probl: No Hx Alcohol Use: Yes Hx Substance Use: Yes (METH, COCAINE, HEROIN) Hx Tobacco Use: Yes Smoking Status: Current every day smoker Physical Exam Vitals Vital Signs Date Temp Pulse Resp B/P (MAP) Pulse Ox O2 O2 Flow FiO2 Time Delivery Rate 03/12/19 Nasal 2 10:22 Cannula 03/12/19 91 18 97 Nasal 2.0 09:53 Cannula 03/12/19 Nasal 2.0 08:57 Cannula 03/12/19 96.7 109 18 166/87 92 06:41 (113) Physical Exam Constitutional:Well-developed. Well-nourished. HEENT:Normocephalic. Atraumatic.Pupils were equal round reactive to light. Moist mucous membranes.No tonsillar exudates. Neck: No nuchal rigidity. No lymphadenopathy. No posterior cervical spine tenderness or step-offs. Respiratory: Not using accessory muscles of respiration.Lungs were clear to auscultation bilaterally. Bilateral rhonchi. No rales. No wheezing. Cardiovascular: Regular rate regular rhythm.No murmurs. No rubs were appreciated.S1, S2 normal. Distal pulses are palpable 2+ bilaterally. GI: Abdomen was soft. Nontender. Non Distended. No pulsatile abdominal masses or bruits. No rebound. No guarding. Bowel sounds were present and normal. Muscle skeletal: Full range of motion of both the upper and lower extremities bilaterally.Normal muscle tone.No assymetrical calf tenderness or swelling. 1+ pitting edema the bilateral lower extremities. Skin: No petechia, no purpura. No lesions on the palms or the soles of the feet. No maculopapular rash. NEURO: Patient was alert, awake, orientated x3.No facial droop. Gait observed and normal with no ataxia.Speech had regular rate and rhythm. No focal neurological deficits. Result Diagram: 03/12/19 0907 03/12/19 1113 Results 24 hrs Laboratory Tests Test 03/12/19 09:07 03/12/19 11:13 White Blood Count 9.4 10^3/ul Red Blood Count 5.91 10^6/ul Hemoglobin 12.9 g/dl Hematocrit 43.0 % Mean Corpuscular Volume 72.8 fl Mean Corpuscular Hemoglobin 21.8 pg Mean Corpuscular Hemoglobin Concent 30.0 g/dl Red Cell Distribution Width 26.6 % Platelet Count 96 10^3/UL Mean Platelet Volume fl Immature Granulocytes % 1.500 % Neutrophils % 67.2 % Lymphocytes % 13.2 % Monocytes % 13.9 % Eosinophils % 1.2 % Basophils % 3.0 % Nucleated Red Blood Cells % 0.0 /100WBC Immature Granulocytes # 0.140 10^3/ul Neutrophils # 6.3 10^3/ul Lymphocytes # 1.2 10^3/ul Monocytes # 1.3 10^3/ul Eosinophils # 0.1 10^3/ul Basophils # 0.3 10^3/ul Nucleated Red Blood Cells # 0.0 10^3/ul Prothrombin Time 14.7 Sec Prothrombin Time Ratio 1.1 INR International Normalized Ratio 1.14 Activated Partial Thromboplast Time 31.1 Sec Sodium Level 145 mmol/L Potassium Level 3.9 mmol/L Chloride Level 105 mmol/L Carbon Dioxide Level 30 mmol/L Anion Gap 10 Blood Urea Nitrogen 18 mg/dl Creatinine 1.36 mg/dl Est Glomerular Filtrat Rate mL/min 53 mL/min Glucose Level 96 mg/dl Calcium Level 7.7 mg/dl Total Bilirubin 0.6 mg/dl Direct Bilirubin 0.00 mg/dl Indirect Bilirubin 0.6 mg/dl Aspartate Amino Transf (AST/SGOT) 86 IU/L Alanine Aminotransferase (ALT/SGPT) 38 IU/L Alkaline Phosphatase 128 IU/L Creatine Kinase 58 IU/L Creatine Kinase Index 1.6 Creatinine Kinase MB (Mass) 0.91 ng/ml Troponin I 0.016 ng/ml B-Type Natriuretic Peptide 401 PG/ML Total Protein 7.0 g/dl Albumin 3.6 g/dl Globulin 3.40 g/dl Albumin/Globulin Ratio 1.05 Salicylates Level < 1.0 mg/dl Acetaminophen Level < 10.0 ug/ml Ethyl Alcohol Level 250.0 mg/dl Current Medications Medications Dose Sig/Trevor Start Time Status Last (Trade) Ordered Route PRN Stop Time Admin Dose Reason Admin Lorazepam 1 mg ONCE STAT 03/12/19 DC 03/12/19 (Ativan) IV 09:07 03/12/19 10:20 09:09 Aspirin 325 mg ONCE STAT 03/12/19 DC 03/12/19 (Aspirin) PO 09:07 03/12/19 10:20 09:09 Albuterol 5 mg ONCE STAT 03/12/19 DC 03/12/19 (Proventil NEB 09:07 03/12/19 09:52 0.083% (Neb)) 09:09 Ipratropium 0.5 mg ONCE STAT 03/12/19 DC 03/12/19 [place]eches NEB 09:07 03/12/19 09:52 (Atrovent 09:09 0.02% (Neb)) Procedures/MDM This is a 63-year-old male with multiple previous emergency room visits. He has known history of congestive heart failure. The patient received nebulizer treatments of albuterol and Atrovent. The patient did not appear to be in severe respiratory distress. He was not hypoxic. Chest radiograph showed myocardium 8 with no infiltrates pneumothorax or pleural effusions. The patient had no pulmonary vascular congestion. The patient does have a history of alcohol abuse. He was given IV Ativan to prevent any withdrawal seizures causing delirium tremors. The patient serum ethanol was elevated 250. The patient had no risk factors for pulmonary embolism. The patient's BNP was slightly elevated. I do not feel he was experiencing severe congestive heart failure exacerbation. 12 Lead EKG tracing ordered and reviewed by myself showed: Normal sinus rhythm of 67 bpm and no arrhythmia. MN interval normal. QRS duration normal. Left axis deviation No ST segment elevation No ST segment depression. No changes consistent with acute ischemia. Observation Note: Time: 7 hours Family Hx: No Hypertension Evaluation: Multiple exams showed improving symptoms and no evidence of impending delirium tremors. However the patient's symptoms with respect to his respiratory distress had worsened. The patient was hypoxic on room air roughly 80%. He was placed on low flow supplemental oxygen 4 L and his hypoxia improved to 92%. He required low flow supplemental oxygen and continuous nebulizer treatments. Therefore at this time the patient will be admitted for observation under the care of Dr. Lara. The patient has become more lethargic and therefore an arterial blood gas will be obtained. The patient is retaining CO2 the patient will be placed on noninvasive mechanical ventilation. Critical Care: Time: 40 minutes Treatments/Evaluations: Close monitoring and treatment of unstable vital signs, cardiorespiratory, and neurologic status, while maintaining tight balance of fluid, respiratory, and cardiac interventions. Time does not include performing any of the above billable procedures. Departure Diagnosis: Primary Impression: Alcoholic intoxication Complication of substance-induced condition: uncomplicated Qualified Codes: F10.920 - Alcohol use, unspecified with intoxication, uncomplicated Additional Impression: CHF (congestive heart failure) Heart failure type: unspecified Heart failure chronicity: acute on chronic Qualified Codes: I50.9 - Heart failure, unspecified Condition: Serious LIZETT WAY MD Mar 12, 2019 09:10
[2019-03-12] MEDS ORDERED: LEVO200T6 PO ×2 (10:49→11:00)
[2019-03-12] MEDS ORDERED: HYDR-3671 PO (10:56)
[2019-03-12] MEDS ORDERED: FOLI-49 PO (10:57)
[2019-03-12] MEDS ORDERED: ALLO100T PO (10:57)
[2019-03-12] MEDS ORDERED: BUME2TAB2 PO (10:58)
[2019-03-12] MEDS ORDERED: METO-319 PO (10:58)
[2019-03-12] MEDS ORDERED: ALBU18HF INHALATION (10:58)
[2019-03-12] MEDS ORDERED: LORA1TAB PO (10:59)
[2019-03-12] MEDS ORDERED: DOCU-144 PO (10:59)
[2019-03-12] MEDS ORDERED: PANT40TA4 PO (11:00)
[2019-03-12] MEDS ORDERED: SPIR25TA PO (11:01)
[2019-03-12] MEDS ORDERED: LUBI24CA7 PO (11:02)
[2019-03-12] MEDS ORDERED: OXYC10TA45 PO (11:02)
[2019-03-12] MEDS ORDERED: IPRATROPIUM (NEB) 0.5 MG/2.5 ML AMP INH STA (13:51)
[2019-03-12] MEDS ORDERED: ALBUTEROL 0.5% (NEB) 2.5 MG/0.5 ML AMP INH STA (13:51)
[2019-03-12] MEDS ORDERED: ACETAMINOPHEN 325 MG TAB PO PRN (15:00)
[2019-03-12] MEDS ORDERED: ONDANSETRON 4 MG INJ IV PRN (15:00)
[2019-03-12 17:36] VITALS: BP 141/86; PULSE 92; RESP 18; Ht 188 cm; Wt 100.0 kg
[2019-03-12 17:57] VITALS: PULSE 112
[2019-03-12] MEDS ORDERED: oxyCODONE (CR) 10 MG TAB [oxyCONTIN] PO PRN (19:30)
[2019-03-12 19:54] VITALS: BP 160/77; PULSE 107; RESP 18
[2019-03-12 20:00] VITALS: PULSE 122
[2019-03-12] MEDS: HYDROmorphONE 1 MG/ML SYG IV PRN ×2 (20:10→23:57)
[2019-03-12] MEDS: LORAZEPAM 1 MG TAB PO PRN (21:22)
[2019-03-12] MEDS ORDERED: oxyCODONE 5 MG TAB PO PRN (22:30)
[2019-03-13] VITALS (12 sets, daily range): BP systolic 137–183; BP diastolic 73–89; PULSE 78–118; RESP 18–22
[2019-03-13] MEDS: LORAZEPAM 1 MG TAB PO PRN ×2 (03:06→18:02)
[2019-03-13] MEDS: HYDROmorphONE 2 MG/ML SYG IV PRN ×5 (03:37→21:58)
[2019-03-13] MEDS ORDERED: ACETAMINOPHEN 500 MG TAB PO PRN (05:00)
[2019-03-13] MEDS ORDERED: LORAZEPAM 1 MG TAB PO PRN (05:00)
[2019-03-13] MEDS: LEVOTHYROXINE 100 MCG TAB PO SCH (06:50)
[2019-03-13] MEDS: PANTOPRAZOLE (EC) 40 MG TAB PO SCH (06:50)
[2019-03-13] MEDS: BUMETANIDE 1 MG TAB PO SCH ×2 (06:51→17:49)
[2019-03-13] MEDS: ALBUTEROL HFA 8 GM INHALER INH SCH ×6 (06:58→22:08)
[2019-03-13] MEDS: POTASSIUM CHLORIDE (SR) 20 MEQ TAB PO SCH (08:26)
[2019-03-13] MEDS: DOCUSATE SODIUM 100 MG CAP PO SCH ×2 (08:26→21:16)
[2019-03-13] MEDS: SPIRONOLACTONE 25 MG TAB PO SCH (08:26)
[2019-03-13] MEDS: FOLIC ACID 1 MG TAB PO SCH (08:27)
[2019-03-13] MEDS: LUBIPROSTONE 24 MCG CAP PO SCH ×2 (08:27→21:17)
[2019-03-13] MEDS: ALLOPURINOL 100 MG TAB PO SCH (08:27)
[2019-03-13] MEDS: MULTIVIT/CA CARB/B CMPLX/FA TAB PO SCH (08:27)
--- NOTE | 2019-03-13 08:48 | HP ---
Date/Time of Note Date/Time of Note DATE: 03/13/19 TIME: 04:33 Assessment/Plan VTE Prophylaxis Risk score (from [facility])>0 risk: 4 SCD applied (from [facility]): No SCD contraindicated: other Pharmacological prophylaxis: other Pharm contraindication: other Lines/Catheters IV C[facility]ter Type (from [facility] Mid Line Central line still needed: Yes Assessment/Plan Assessment/Plan Alcoholic intoxication - Admit to unit - see ad mission orders - Banana Bag - Ativan - Thiamine -Acute on chronic diastolic congestive heart failure. BNP 401 -Continue Lasix. -Dr. Foley notified in cardiology consultation. - Troponin Neg - Hypertension - cont antihypertensives Cellulitis BLE - ID consult notified -COPD - no acute issues -Anemia - monitor CBC - Thrombocytopenia possibly 2/2 Liver Cirrhosis - monitor labs; s/s of bleeding -Alcoholic liver cirrhosis- LFT are elevated - GI consult appreciated -Acute kidney injury on chronic kidney disease. - Dr. Leung notified in nephrology consultation. - Hypothyroidism - cont Synthroid; will repeat TSH -Bilateral lower extremities chronic venous stasis - Negative for DVT - Hx Left foot plantar ulcer -Obesity - weight management -Nicotine dependence- cessation is strongly advised. -Continues alcohol use, cessation is strongly advised. -Poor medical compliance Patient has thrombocytopenia ; so no anticoagulant will be given at present, SCDs wont be applied as patient has BLE swelling. Further recommendations based on clinical course. Plan of care discussed with Dr. Marlow. Result Diagram: 03/12/19 0907 03/12/19 1113 Results 24hrs Laboratory Tests Test 03/12/19 09:07 03/12/19 11:13 03/12/19 13:57 White Blood Count 9.4 Red Blood Count 5.91 Hemoglobin 12.9 #L Hematocrit 43.0 Mean Corpuscular Volume 72.8 L Mean Corpuscular Hemoglobin 21.8 L Mean Corpuscular 30.0 L Hemoglobin Concent Red Cell Distribution Width 26.6 #H Platelet Count 96 #L Mean Platelet Volume Immature Granulocytes % 1.500 H Neutrophils % 67.2 Lymphocytes % 13.2 L Monocytes % 13.9 H Eosinophils % 1.2 Basophils % 3.0 H Nucleated Red Blood Cells % 0.0 Immature Granulocytes # 0.140 H Neutrophils # 6.3 Lymphocytes # 1.2 Monocytes # 1.3 H Eosinophils # 0.1 Basophils # 0.3 H Nucleated Red Blood Cells # 0.0 Prothrombin Time 14.7 Prothrombin Time Ratio 1.1 INR International 1.14 Normalized Ratio Activated Partial Thromboplast 31.1 Time Sodium Level 145 H Potassium Level 3.9 Chloride Level 105 Carbon Dioxide Level 30 Anion Gap 10 Blood Urea Nitrogen 18 Creatinine 1.36 H Est Glomerular Filtrat 53 L Rate mL/min Glucose Level 96 Calcium Level 7.7 L Total Bilirubin 0.6 Direct Bilirubin 0.00 Indirect Bilirubin 0.6 Aspartate Amino 86 H Transf (AST/SGOT) Alanine 38 Aminotransferase (ALT/SGPT) Alkaline Phosphatase 128 H Creatine Kinase 58 Creatine Kinase Index 1.6 Creatinine Kinase MB (Mass) 0.91 Troponin I 0.016 B-Type Natriuretic Peptide 401 H Total Protein 7.0 Albumin 3.6 Globulin 3.40 H Albumin/Globulin Ratio 1.05 Salicylates Level < 1.0 L Acetaminophen Level < 10.0 L Ethyl Alcohol Level 250.0 H Blood Gas Specimen Source Blood arterial Arterial Blood Date Drawn 03/12/2019 2:11:19 PM Arterial Blood pH 7.354 (Temp corrected) Arterial Blood pCO2 53.3 H (Temp correct) Arterial Blood pO2 104.1 H (Temp corrected) Arterial Blood HCO3 29.0 H Arterial Blood Base Excess 2.5 Arterial Blood 97.1 Oxygen Saturation Crispin Test ACCEPTAB Arterial Blood Gas Right Radial Puncture Site Arterial 3.6 H Blood Carboxyhemoglobin Arterial Blood Methemoglobin 0.3 Blood Gas A-a O2 Differential 112.5 H Oxyhemoglobin Percent 93.3 Blood Gas Temperature 37.0 Blood Gas Modality NASAL CANNULA FiO2 39.0 Blood Gas Notified Whom Tamika Blood Gas Notified Time 03/12/2019 2:18:58 PM HPI/ROS Admit Date/Time Admit Date/Time Mar 12, 2019 at 14:43 Hx of Present Illness HPI This is a 63-year-old male well known to me from previous admissions with past history of congestive heart failure,hypertension, cirrhosis, recurrent ascites, EtOH abuse, recurrent bouts of anemia, chronic kidney disease, chronic lower extremity edema, amphetamine and cocaine abuse , alcoholism. Per ER, his last drink was 10 hours prior to arrival. The patient was admitted with complains of generalized weakness. No reported chest pain, shortness of breath, fever, palpitations, dizziness, headache, any changes in vision, abdominal pain , nausea/ vomitting any calf tenderness.Patient refused taking any illicit drugs in the past several days. He denies any recent travel or prolonged immobilization. He had previous emergency room visits for similar symptoms. VS- Temperature of 98.1, blood pressure markedly elevated at 168/84, pulse 87, respiratory rate 18, O2 sat 96%. CBC- WBC 11.0, Hemoglobin 11.7 Platelet 55 CHEM - sodium 140, potassium 4.3, creatinine 1.19, BUN of 19 LIVER FUNCTIONS- AST 86, ALT 38 CARDIAC ENZYMES - troponin negative BNP- 401. ABG revealing a pH of 7.354, PaO2 of 104, pCO2 of 53 Tox screen - EtOH level of 250. Chest x-ray revealed no acute cardiopulmonary abnormalities. Venous ultrasound revealed no sonographic evidence of DVT. EKG- sinus rhythm, rate of 80 with borderline inferior Q's, nonspecific ST wave abnormalities. Patient is admitted under Dr Marlow. ROS All systems reviewed and are negative except as per history of present illness. Medications Home Meds Reported Medications Lubiprostone* (Amitiza*) 24 Mcg Capsule, 24 MCG PO BID, #60 CAP 03/12/19 Oxycodone Hcl* (Oxycontin*) 10 Mg Tab.sr.12h, 10 MG PO NEEDED, TAB 03/12/19 Spironolactone* (Aldactone*) 25 Mg Tablet, 25 MG PO DAILY, #30 TAB 03/12/19 Pantoprazole* (Pantoprazole*) 40 Mg Tablet.dr, 40 MG PO AC BREAKFAST, TAB 03/12/19 Levothyroxine Sodium* (Levothyroxine Sodium*) 200 Mcg Tablet, 200 MCG PO BEFORE BREAKFAST, #30 TAB 03/12/19 Docusate Sodium* (Colace*) 100 Mg Capsule, 100 MG PO BID, #60 CAP 03/12/19 Lorazepam* (Lorazepam*) 1 Mg Tablet, 1 MG PO HS PRN for NEEDED, #30 TAB 03/12/19 Albuterol Sulfate* (Ventolin HFA*) 18 Gm Hfa.aer.ad, 2 PUFF INHALATION Q4H, #1 INHALER 03/12/19 Metoprolol Succinate* (Toprol XL*) 50 Mg Tab.er.24h, 50 MG PO DAILY, #30 TAB 03/12/19 Bumetanide* (Bumetanide*) 2 Mg Tablet, 2 MG PO BID, TAB 03/12/19 Allopurinol* (Allopurinol*) 100 Mg Tablet, 100 MG PO DAILY, TAB 03/12/19 Folic Acid* (Folic Acid*) 1 Mg Tablet, 1 MG PO DAILY, TAB 03/12/19 Hydralazine Hcl* (Hydralazine Hcl*) 25 Mg Tab, 25 MG PO Q8 PRN for PRN, #90 TAB 03/12/19 Acetaminophen* (Acetaminophen*) 500 MG Extra Strength Tablet, 500 MG PO Q4H PRN for MILD PAIN LEVEL 1-3, TAB 01/11/19 Discontinued Reported Medications Levothyroxine Sodium* (Levothyroxine Sodium*) 200 Mcg Tablet, 200 MCG PO BEFORE BREAKFAST, #30 TAB 03/12/19 Thiamine* (Vitamin B-1*) 100 Mg Tablet, 100 MG PO DAILY, TAB 01/11/19 Sodium Bicarbonate* (Sodium Bicarbonate*) 325 Mg Tablet, 325 MG PO TID, TAB 01/11/19 Simethicone* (Mylicon*) 80 Mg Tab, 80 MG PO Q6H, TAB 01/11/19 Albuterol Sulfate (Proair Respiclick) 90 Mcg Aer.pow.ba, 2 PUFFS INHALATION Q4H PRN for SHORTNESS OF BREATH, #1 BOTTLE 01/11/19 Pantoprazole* (Pantoprazole*) 40 Mg Tablet.dr, 40 MG PO AC BREAKFAST, TAB 01/11/19 Oxycodone Hcl* (Oxycontin*) 10 Mg Tab.sr.12h, 10 MG PO Q8H PRN for PAIN, TAB 01/11/19 Allopurinol* (Allopurinol*) 100 Mg Tablet, 100 MG PO DAILY, TAB 01/11/19 Rifaximin* (Xifaxan*) 550 Mg Tablet, 550 MG PO BID, TAB 01/11/19 Ondansetron Hcl* (Zofran*) 4 Mg Tab, 4 MG PO Q4H PRN for NAUSEA AND OR VOMITING, TAB 01/11/19 Ipratropium-Albuterol (Ipratropium-Albuterol) 0.5-3 Mg/3 Ml Ampul.neb, 3 ML INHALATION Q6 PRN for WHEEZING AND SOB, #30 VIAL 01/11/19 Gabapentin* (Gabapentin*) 100 Mg Capsule, 100 MG PO TID, #90 CAP 01/11/19 Furosemide* (Furosemide*) 40 Mg Tablet, 40 MG PO DAILY, TAB 01/11/19 Folic Acid* (Folic Acid*) 1 Mg Tablet, 1 MG PO DAILY, TAB 01/11/19 Tamsulosin Hcl* (Flomax*) 0.4 Mg Cap.er.24h, 0.4 MG PO HS, CAP 01/11/19 Ferrous Sulfate* (Ferrous Sulfate*) 325 Mg Tabec, 325 MG PO DAILY, TAB 01/11/19 Ertapenem Sodium (Invanz) 1 Gm Vial, 1 GM IM DAILY, VIAL 01/11/19 Epoetin Ghulam (Epogen) 10,000 Units/Ml Soln, 48145 UNITS SC Q TUE,SHARONA,SAT, VIAL 01/11/19 Lactulose* (Lactulose*) 10 Gm/15 Ml Solution, 30 ML PO Q6, ML 01/11/19 Docusate Sodium* (Colace*) 100 Mg Capsule, 200 MG PO QHS, #30 CAP 01/11/19 Dorzolamide-Timolol* (Cosopt*) 2%-0.5% - 10 Ml Soln, 1 DROP BOTH EYES BID, BOTTLE 01/11/19 Lorazepam* (Lorazepam*) 1 Mg Tablet, 1 MG PO NEEDED PRN for ANXIETY, #30 TAB 01/11/19 Ascorbic Acid (Vitamin C) 500 Mg Tab, 500 MG PO DAILY, TAB 01/11/19 Arformoterol Tartrate (Brovana) 15 Mcg/2 Ml Vial.neb, 15 MCG INHALATION BID, VIAL 01/11/19 Discontinued Scripts Levothyroxine Sodium* (Levothyroxine Sodium*) 125 Mcg Tablet, 250 MCG PO DAILY@06 for 30 Days, #30 TAB Prov:KOKO MARLOW MD 02/06/19 Allergies Allergies: Coded Allergies: Penicillins (Unverified Allergy, Unknown, 03/12/19) Patient strongly denies being allegic to PCN. He states, "I took that damn allergy band off. I'm not allergic to penicillin ROS Eyes: no complaints ENT: no complaints Respiratory: no complaints Cardiovascular: no complaints Gastrointestinal: no complaints Genitourinary: no complaints Musculoskeletal: restricted range of motion Skin: no complaints Neurologic: no complaints PMH/Family/Social Past Medical History PMhx/Soc History of Surgery: Yes (ABDOMINAL SX, FISTULA PLACEMENT) Anesthesia Reaction: No Hx Neurological Disorder: No Hx Respiratory Disorders: Yes (COPD) Hx Cardiac Disorders: Yes (HTN, HDL, CHF ) Hx Psychiatric Problems: Yes Hx Miscellaneous Medical Probl: No Hx Alcohol Use: Yes Hx Substance Use: Yes (METH, COCAINE, HEROIN) Hx Tobacco Use: Yes Smoking Status: Current every day smoke Medications Current Medications Ondansetron HCl (Zofran Inj) 4 mg ER BRIDGE PRN IV NAUSEA/VOMITING; Start 03/12/19 at 15:00; Stop 03/13/19 at 14:59 Acetaminophen (Tylenol Tab) 650 mg ER BRIDGE PRN PO .MILD PAIN 1-3 OR TEMP; Start 03/12/19 at 15:00; Stop 03/13/19 at 14:59 Furosemide (Lasix) 40 mg DAILY IV ; Start 03/13/19 at 09:00 Lorazepam (Ativan) 1 mg Q6H PRN PO ANXIETY Last administered on 03/13/19at 03:06; Admin Dose 1 MG; Start 03/12/19 at 19:30 Multivit/Ca Carb/ B Cmplx/FA/Prenat (Janis-Bing) 1 tab DAILY PO ; Start 03/13/19 at 09:00 Potassium Chloride (Klor-Con 20) 20 meq DAILY PO ; Start 03/13/19 at 09:00 Oxycodone HCl (Roxicodone) 10 mg Q4H PRN PO MODERATE PAIN LEVEL 4-6; Start 03/12/19 at 22:30 Hydromorphone HCl (Dilaudid) 1.5 mg Q4H PRN IV SEVERE PAIN LEVEL 7-10 Last administered on 03/13/19at 03:37; Admin Dose 1.5 MG; Start 03/13/19 at 00:30 Clonidine (Catapres) 0.1 mg Q6H PRN PO ELEVATED SYSTOLIC BP Last administered on 03/13/19at 00:34; Admin Dose 0.1 MG; Start 03/13/19 at 00:30 Coded Allergies: Penicillins (Unverified Allergy, Unknown, 03/14/19) Patient strongly denies being allegic to PCN. He states, "I took that damn allergy band off. I'm not allergic to penicillen!" Past Surgical History Past Surgical Hx: other Family History Significant Family History: no pertinent family hx Social History Smoking Status: Current every day smoker Exam/Review of Systems Vital Signs Vitals Vital Signs Date Temp Pulse Resp B/P (MAP) Pulse Ox O2 O2 Flow FiO2 Time Delivery Rate 03/13/19 86 148/74 03:36 (98) 03/13/19 98.2 20 94 00:00 03/12/19 Nasal 2.0 17:36 Cannula Intake and Output 03/12/19 03/12/19 03/13/19 1515:00 23:00 07:00 OutputOutput Total 300 ml BalanceBalance -300 ml Exam Constitutional: alert, well developed Psych: nl mood/affect Eyes: nl lids, nl sclera ENMT: nl external ears & nose Neck: non-tender Respiratory: diminished breath sounds Cardiovascular: nl pulses, other (s1s2) Gastrointestinal: soft, non-tender Musculoskeletal: muscle weakness GO LAMBERT Mar 13, 2019 04:43
[2019-03-13] MEDS ORDERED: METOPROLOL (XL) 50 MG TAB PO SCH (09:00)
[2019-03-13] MEDS: oxyCODONE (CR) 10 MG TAB [oxyCONTIN] PO SCH ×2 (09:00→21:17)
[2019-03-13] MEDS ORDERED: FUROSEMIDE 40 MG INJ IV SCH (09:00)
[2019-03-13] MEDS: MULTIVITAMINS 10 ML, THIAMINE 100 MG, FOLIC ACID 1 MG in SOD CHLORIDE 0.9% 1,000 ML IVPB SCH (10:27)
--- NOTE | 2019-03-13 10:46 | CONS ---
Assessment/Plan Assessment/Plan Assessment/Plan (Daily) 1. acute on chronic renal failure due to Hemodynamics from CHF and decompensated liver cirrhosis, rule out Type II HRS 2. Anemia of CKD 5. Decompensated Liver cirrhosis with Symptomatic ascites 6. H/O HTN 7. h/o Liver cirrhosis with ascites 8. H/o Diastolic CHF 9. Bilateral LE chronic venous stasis 10.H/o BPH on Flomax Plan: BUN/Cr improved to 19/1.19 - other electrolytes stable HCo3 32- K normal, d/c IV lasix, continue bumex 2 mg pO BID and Spironolactone 25 mg po daily, KCL replacement has been ordered daily BP not well controlled , Increase Toprol Xl to 50mg PO BID, add amlodipine 10mg po daily one dose now , Hydralazine 50mg PO Q 6 hr prn SBP more than 150 mm hg -EGD done April 2018 showed duodenal ulcer and gastritis -s/p colonoscopy 01/28/19 Flomax 0.4mg po daily for BPH will follow up Consultation Date/Type/Reason Admit Date/Time Mar 12, 2019 at 14:43 Date of Consultation: Mar 13, 2019 Type of Consult NEPHROLOGY Reason for Consultation Acute on chronic renal failure, CHF, Requesting Provider: KOKO MARLOW MD Date/Time of Note DATE: 03/13/19 TIME: 10:46 Hx of Present Illness 63-year-old male with PMhx of diastolic congestive heart failure, COPD, chronic kidney disease, alcoholic liver cirrhosis, history of bilateral lower extremity cellulitis and edema, history of left foot plantar ulcer underwent I&D in September 2018. Patient has a history of cholelithiasis, anxiety, BPH and hypothyroidism. Patient presented to the emergency room with complaints of acute dyspnea for the last couple of days which got significantly worse last night, complains of bilateral lower extremities edema orthopnea. On chemistry he was noted to have BUN/Cr 18/1.36, Na 145- Renal has been consulted for acute on chronic renal failure. Constitutional: poor po Eyes: no complaints ENT: no complaints Respiratory: pleuritic pain, shortness of breath Cardiovascular: no complaints Gastrointestinal: no complaints Genitourinary: no complaints Musculoskeletal: back pain, bone/joint pain, neck pain Skin: no complaints Neurologic: no complaints Endocrine: no complaints Psychological: no complaints Immunologic: no complaints Past Medical History Medical History: hypertension, other (diastolic congestive heart failure, COPD, chronic kidney disease, alcoholic liver cirrhosis, history of bilateral lower extremity cellulitis and edema, cholelithiasis, anxiety, BPH and hypo thyroidism.) Home Meds Reported Medications Lubiprostone* (Amitiza*) 24 Mcg Capsule, 24 MCG PO BID, #60 CAP 03/12/19 Oxycodone Hcl* (Oxycontin*) 10 Mg Tab.sr.12h, 10 MG PO NEEDED, TAB 03/12/19 Spironolactone* (Aldactone*) 25 Mg Tablet, 25 MG PO DAILY, #30 TAB 03/12/19 Pantoprazole* (Pantoprazole*) 40 Mg Tablet.dr, 40 MG PO AC BREAKFAST, TAB 03/12/19 Levothyroxine Sodium* (Levothyroxine Sodium*) 200 Mcg Tablet, 200 MCG PO BEFORE BREAKFAST, #30 TAB 03/12/19 Docusate Sodium* (Colace*) 100 Mg Capsule, 100 MG PO BID, #60 CAP 03/12/19 Lorazepam* (Lorazepam*) 1 Mg Tablet, 1 MG PO HS PRN for NEEDED, #30 TAB 03/12/19 Albuterol Sulfate* (Ventolin HFA*) 18 Gm Hfa.aer.ad, 2 PUFF INHALATION Q4H, #1 INHALER 03/12/19 Metoprolol Succinate* (Toprol XL*) 50 Mg Tab.er.24h, 50 MG PO DAILY, #30 TAB 03/12/19 Bumetanide* (Bumetanide*) 2 Mg Tablet, 2 MG PO BID, TAB 03/12/19 Allopurinol* (Allopurinol*) 100 Mg Tablet, 100 MG PO DAILY, TAB 03/12/19 Folic Acid* (Folic Acid*) 1 Mg Tablet, 1 MG PO DAILY, TAB 03/12/19 Hydralazine Hcl* (Hydralazine Hcl*) 25 Mg Tab, 25 MG PO Q8 PRN for PRN, #90 TAB 03/12/19 Acetaminophen* (Acetaminophen*) 500 MG Extra Strength Tablet, 500 MG PO Q4H PRN for MILD PAIN LEVEL 1-3, TAB 01/11/19 Discontinued Reported Medications Levothyroxine Sodium* (Levothyroxine Sodium*) 200 Mcg Tablet, 200 MCG PO BEFORE BREAKFAST, #30 TAB 03/12/19 Thiamine* (Vitamin B-1*) 100 Mg Tablet, 100 MG PO DAILY, TAB 01/11/19 Sodium Bicarbonate* (Sodium Bicarbonate*) 325 Mg Tablet, 325 MG PO TID, TAB 01/11/19 Simethicone* (Mylicon*) 80 Mg Tab, 80 MG PO Q6H, TAB 01/11/19 Albuterol Sulfate (Proair Respiclick) 90 Mcg Aer.pow.ba, 2 PUFFS INHALATION Q4H PRN for SHORTNESS OF BREATH, #1 BOTTLE 01/11/19 Pantoprazole* (Pantoprazole*) 40 Mg Tablet.dr, 40 MG PO AC BREAKFAST, TAB 01/11/19 Oxycodone Hcl* (Oxycontin*) 10 Mg Tab.sr.12h, 10 MG PO Q8H PRN for PAIN, TAB 01/11/19 Allopurinol* (Allopurinol*) 100 Mg Tablet, 100 MG PO DAILY, TAB 01/11/19 Rifaximin* (Xifaxan*) 550 Mg Tablet, 550 MG PO BID, TAB 01/11/19 Ondansetron Hcl* (Zofran*) 4 Mg Tab, 4 MG PO Q4H PRN for NAUSEA AND OR VOMITING, TAB 01/11/19 Ipratropium-Albuterol (Ipratropium-Albuterol) 0.5-3 Mg/3 Ml Ampul.neb, 3 ML INHALATION Q6 PRN for WHEEZING AND SOB, #30 VIAL 01/11/19 Gabapentin* (Gabapentin*) 100 Mg Capsule, 100 MG PO TID, #90 CAP 01/11/19 Furosemide* (Furosemide*) 40 Mg Tablet, 40 MG PO DAILY, TAB 01/11/19 Folic Acid* (Folic Acid*) 1 Mg Tablet, 1 MG PO DAILY, TAB 01/11/19 Tamsulosin Hcl* (Flomax*) 0.4 Mg Cap.er.24h, 0.4 MG PO HS, CAP 01/11/19 Ferrous Sulfate* (Ferrous Sulfate*) 325 Mg Tabec, 325 MG PO DAILY, TAB 01/11/19 Ertapenem Sodium (Invanz) 1 Gm Vial, 1 GM IM DAILY, VIAL 01/11/19 Epoetin Ghulam (Epogen) 10,000 Units/Ml Soln, 05977 UNITS SC Q TUE,SHARONA,SAT, VIAL 01/11/19 Lactulose* (Lactulose*) 10 Gm/15 Ml Solution, 30 ML PO Q6, ML 01/11/19 Docusate Sodium* (Colace*) 100 Mg Capsule, 200 MG PO QHS, #30 CAP 01/11/19 Dorzolamide-Timolol* (Cosopt*) 2%-0.5% - 10 Ml Soln, 1 DROP BOTH EYES BID, BOTTLE 01/11/19 Lorazepam* (Lorazepam*) 1 Mg Tablet, 1 MG PO NEEDED PRN for ANXIETY, #30 TAB 01/11/19 Ascorbic Acid (Vitamin C) 500 Mg Tab, 500 MG PO DAILY, TAB 01/11/19 Arformoterol Tartrate (Brovana) 15 Mcg/2 Ml Vial.neb, 15 MCG INHALATION BID, VIAL 01/11/19 Discontinued Scripts Levothyroxine Sodium* (Levothyroxine Sodium*) 125 Mcg Tablet, 250 MCG PO DAILY@06 for 30 Days, #30 TAB Prov:KOKO MARLOW MD 02/06/19 Medications Current Medications Ondansetron HCl (Zofran Inj) 4 mg ER BRIDGE PRN IV NAUSEA/VOMITING; Start 03/12/19 at 15:00; Stop 03/13/19 at 14:59 Acetaminophen (Tylenol Tab) 650 mg ER BRIDGE PRN PO .MILD PAIN 1-3 OR TEMP; Start 03/12/19 at 15:00; Stop 03/13/19 at 14:59 Furosemide (Lasix) 40 mg DAILY IV Last administered on 03/13/19at 08:24; Admin Dose 40 MG; Start 03/13/19 at 09:00 Lorazepam (Ativan) 1 mg Q6H PRN PO ANXIETY Last administered on 03/13/19at 03:06; Admin Dose 1 MG; Start 03/12/19 at 19:30 Multivit/Ca Carb/ B Cmplx/FA/Prenat (Janis-Bing) 1 tab DAILY PO Last admini stered on 03/13/19at 08:27; Admin Dose 1 TAB; Start 03/13/19 at 09:00 Potassium Chloride (Klor-Con 20) 20 meq DAILY PO Last administered on 03/13/19at 08:26; Admin Dose 20 MEQ; Start 03/13/19 at 09:00 Oxycodone HCl (Roxicodone) 10 mg Q4H PRN PO MODERATE PAIN LEVEL 4-6; Start 03/12/19 at 22:30 Hydromorphone HCl (Dilaudid) 1.5 mg Q4H PRN IV SEVERE PAIN LEVEL 7-10 Last administered on 03/13/19 08:22; Admin Dose 1.5 MG; Start 03/13/19 at 00:30 Clonidine (Catapres) 0.1 mg Q6H PRN PO ELEVATED SYSTOLIC BP Last administered on 03/13/19at 00:34; Admin Dose 0.1 MG; Start 03/13/19 at 00:30 Acetaminophen (Tylenol Tab) 500 mg Q4H PRN PO MILD PAIN LEVEL 1-3; Start 03/13/19 at 05:00 Albuterol (Ventolin Hfa) 2 puff Q4H RESP THERAPY INH Last administered on 03/13/19at 06:58; Admin Dose 2 PUFF; Start 03/13/19 at 05:00 Allopurinol (Zyloprim) 100 mg DAILY PO Last administered on 03/13/19 08:27; Admin Dose 100 MG; Start 03/13/19 at 09:00 Docusate Sodium (Colace) 100 mg BID PO Last administered on 03/13/19 08:26; Admin Dose 100 MG; Start 03/13/19 at 09:00 Folic Acid (Folic Acid) 1 mg DAILY PO Last administered on 03/13/19 08:27; Admin Dose 1 MG; Start 03/13/19 at 09:00 Hydralazine HCl (Apresoline) 25 mg Q8 PRN PO PRN; Start 03/13/19 at 05:00 Levothyroxine Sodium (Synthroid) 200 mcg BEFORE BREAKFAST PO Last administered on 03/13/19at 06:50; Admin Dose 200 MCG; Start 03/13/19 at 07:00 Lorazepam (Ativan) 1 mg HS PRN PO NEEDED; Start 03/13/19 at 05:00 Lubiprostone (Amitiza) 24 mcg BID PO Last administered on 03/13/19 08:27; Admin Dose 24 MCG; Start 03/13/19 at 09:00 Metoprolol Succinate (Toprol Xl) 50 mg DAILY PO Last administered on 03/13/19at 08:27; Admin Dose 50 MG; Start 03/13/19 at 09:00 Oxycodone HCl (Oxycontin) 10 mg Q12 PO ; Start 03/13/19 at 09:00 Pantoprazole (Protonix Tab) 40 mg AC BREAKFAST PO Last administered on 03/13/19at 06:50; Admin Dose 40 MG; Start 03/13/19 at 07:00 Spironolactone (Aldactone) 25 mg DAILY PO Last administered on 03/13/19at 08:26; Admin Dose 25 MG; Start 03/13/19 at 09:00 Bumetanide (Bumex) 2 mg BID DIURETICS PO Last administered on 03/13/19at 06:51; Admin Dose 2 MG; Start 03/13/19 at 06:00 Multivitamins 10 ml/Thiamine HCl 100 mg/Folic Acid 1 mg/Sodium Chloride 1,011.2 ml @ 125 mls/ hr DAILY@09 IVPB Last administered on 03/13/19at 10:27; Admin Dose 125 MLS/HR; Start 03/13/19 at 09:00 Allergies: Coded Allergies: Penicillins (Unverified Allergy, Unknown, 03/12/19) Patient strongly denies being allegic to PCN. He states, "I took that damn allergy band off. I'm not allergic to penicillen!" Past Surgical History Past Surgical Hx: other (I & D of Left foot ulcer ) Social History Alcohol Use: occasionally Smoking Status: Current every day smoker Drug Use: none Exam/Review of Systems Exam Vitals Vital Signs Date Temp Pulse Resp B/P (MAP) Pulse Ox O2 O2 Flow FiO2 Time Delivery Rate 03/13/19 98.1 87 18 168/84 96 07:31 (112) 03/12/19 Nasal 2.0 17:36 Cannula Intake and Output 03/12/19 03/12/19 03/13/19 1515:00 23:00 07:00 IntakeIntake Total 500 ml OutputOutput Total 300 ml BalanceBalance 200 ml Constitutional: alert Head: normocephalic Neck: supple, non-tender Respiratory: crackles/rales, diminished breath sounds Cardiovascular: regular rate and rhythm, nl pulses Gastrointestinal: soft, non-tender Musculoskeletal: swelling, other ( 1+ pitting edema the bilateral lower extremities.) Extremities: normal pulses Neurological: OLERICULTURIST II-XII intact, nl mental status, nl speech, nl strength, other (gait not assessed ) Results Result Diagram: 03/13/19 0543 03/13/19 0543 Results 24hrs Laboratory Tests Test 03/12/19 11:13 03/12/19 13:57 03/13/19 05:43 Prothrombin Time 14.7 Prothrombin Time Ratio 1.1 INR International 1.14 Normalized Ratio Activated Partial Thromboplast 31.1 Time Sodium Level 145 H 140 Potassium Level 3.9 4.2 Chloride Level 105 103 Carbon Dioxide Level 30 32 H Anion Gap 10 5 Blood Urea Nitrogen 18 19 Creatinine 1.36 H 1.19 Est Glomerular Filtrat 53 L > 60 Rate mL/min Glucose Level 96 77 Calcium Level 7.7 L 7.7 L Total Bilirubin 0.6 Direct Bilirubin 0.00 Indirect Bilirubin 0.6 Aspartate Amino 86 H Transf (AST/SGOT) Alanine 38 Aminotransferase (ALT/SGPT) Alkaline Phosphatase 128 H Creatine Kinase 58 Creatine Kinase Index 1.6 Creatinine Kinase MB (Mass) 0.91 Troponin I 0.016 B-Type Natriuretic Peptide 401 H Total Protein 7.0 Albumin 3.6 Globulin 3.40 H Albumin/Globulin Ratio 1.05 Salicylates Level < 1.0 L Acetaminophen Level < 10.0 L Ethyl Alcohol Level 250.0 H Blood Gas Specimen Source Blood arterial Arterial Blood Date Drawn 03/12/2019 2:11:19 PM Arterial Blood pH 7.354 (Temp corrected) Arterial Blood pCO2 53.3 H (Temp correct) Arterial Blood pO2 104.1 H (Temp corrected) Arterial Blood HCO3 29.0 H Arterial Blood Base Excess 2.5 Arterial Blood 97.1 Oxygen Saturation Crispin Test ACCEPTAB Arterial Blood Gas Right Radial Puncture Site Arterial 3.6 H Blood Carboxyhemoglobin Arterial Blood Methemoglobin 0.3 Blood Gas A-a O2 Differential 112.5 H Oxyhemoglobin Percent 93.3 Blood Gas Temperature 37.0 Blood Gas Modality NASAL CANNULA FiO2 39.0 Blood Gas Notified Whom M.D. Blood Gas Notified Time 03/12/2019 2:18:58 PM White Blood Count 11.0 H Red Blood Count 5.35 Hemoglobin 11.7 L Hematocrit 39.7 L Mean Corpuscular Volume 74.2 L Mean Corpuscular Hemoglobin 21.9 L Mean Corpuscular 29.5 L Hemoglobin Concent Red Cell Distribution Width 26.2 H Platelet Count 55 #L Mean Platelet Volume Immature Granulocytes % 1.200 H Neutrophils % 75.2 Lymphocytes % 5.9 L Monocytes % 15.4 H Eosinophils % 1.0 Basophils % 1.3 Nucleated Red Blood Cells % 0.0 Immature Granulocytes # 0.130 H Neutrophils # 8.3 H Lymphocytes # 0.7 L Monocytes # 1.7 H Eosinophils # 0.1 Basophils # 0.1 Nucleated Red Blood Cells # 0.0 Medications Medication Current Medications Ondansetron HCl (Zofran Inj) 4 mg ER BRIDGE PRN IV NAUSEA/VOMITING; Start 03/12/19 at 15:00; Stop 03/13/19 at 14:59 Acetaminophen (Tylenol Tab) 650 mg ER BRIDGE PRN PO .MILD PAIN 1-3 OR TEMP; Start 03/12/19 at 15:00; Stop 03/13/19 at 14:59 Furosemide (Lasix) 40 mg DAILY IV Last administered on 03/13/19at 08:24; Admin Dose 40 MG; Start 03/13/19 at 09:00 Lorazepam (Ativan) 1 mg Q6H PRN PO ANXIETY Last administered on 03/13/19at 03:06; Admin Dose 1 MG; Start 03/12/19 at 19:30 Multivit/Ca Carb/ B Cmplx/FA/Prenat (Janis-Bing) 1 tab DAILY PO Last administered on 03/13/19at 08:27; Admin Dose 1 TAB; Start 03/13/19 at 09:00 Potassium Chloride (Klor-Con 20) 20 meq DAILY PO Last administered on 03/13/19 08:26; Admin Dose 20 MEQ; Start 03/13/19 at 09:00 Oxycodone HCl (Roxicodone) 10 mg Q4H PRN PO MODERATE PAIN LEVEL 4-6; Start 03/12/19 at 22:30 Hydromorphone HCl (Dilaudid) 1.5 mg Q4H PRN IV SEVERE PAIN LEVEL 7-10 Last administered on 03/13/19at 08:22; Admin Dose 1.5 MG; Start 03/13/19 at 00:30 Clonidine (Catapres) 0.1 mg Q6H PRN PO ELEVATED SYSTOLIC BP Last administered on 03/13/19at 00:34; Admin Dose 0.1 MG; Start 03/13/19 at 00:30 Acetaminophen (Tylenol Tab) 500 mg Q4H PRN PO MILD PAIN LEVEL 1-3; Start 03/13/19 at 05:00 Albuterol (Ventolin Hfa) 2 puff Q4H RESP THERAPY INH Last administered on 03/13/19 06:58; Admin Dose 2 PUFF; Start 03/13/19 at 05:00 Allopurinol (Zyloprim) 100 mg DAILY PO Last administered on 03/13/19 08:27; Admin Dose 100 MG; Start 03/13/19 at 09:00 Docusate Sodium (Colace) 100 mg BID PO Last administered on 03/13/19 08:26; Admin Dose 100 MG; Start 03/13/19 at 09:00 Folic Acid (Folic Acid) 1 mg DAILY PO Last administered on 03/13/19 08:27; Admin Dose 1 MG; Start 03/13/19 at 09:00 Hydralazine HCl (Apresoline) 25 mg Q8 PRN PO PRN; Start 03/13/19 at 05:00 Levothyroxine Sodium (Synthroid) 200 mcg BEFORE BREAKFAST PO Last administered on 03/13/19 06:50; Admin Dose 200 MCG; Start 03/13/19 at 07:00 Lorazepam (Ativan) 1 mg HS PRN PO NEEDED; Start 03/13/19 at 05:00 Lubiprostone (Amitiza) 24 mcg BID PO Last administered on 03/13/19 08:27; Admin Dose 24 MCG; Start 03/13/19 at 09:00 Metoprolol Succinate (Toprol Xl) 50 mg DAILY PO Last administered on 03/13/19 08:27; Admin Dose 50 MG; Start 03/13/19 at 09:00 Oxycodone HCl (Oxycontin) 10 mg Q12 PO ; Start 03/13/19 at 09:00 Pantoprazole (Protonix Tab) 40 mg AC BREAKFAST PO Last administered on 03/13/19 06:50; Admin Dose 40 MG; Start 03/13/19 at 07:00 Spironolactone (Aldactone) 25 mg DAILY PO Last administered on 03/13/19 08:26; Admin Dose 25 MG; Start 03/13/19 at 09:00 Bumetanide (Bumex) 2 mg BID DIURETICS PO Last administered on 03/13/19at 06:51; Admin Dose 2 MG; Start 03/13/19 at 06:00 Multivitamins 10 ml/Thiamine HCl 100 mg/Folic Acid 1 mg/Sodium Chloride 1,011.2 ml @ 125 mls/ hr DAILY@09 IVPB Last administered on 03/13/19at 10:27; Admin Dose 125 MLS/HR; Start 03/13/19 at 09:00 ELADIO DELGADO MD Mar 13, 2019 10:46
--- NOTE | 2019-03-13 10:58 | CONS ---
Consultation Date/Type/Reason Admit Date/Time Mar 12, 2019 at 14:43 Initial Consult Date Date/Time of Note DATE: 03/13/19 TIME: 10:58 Exam/Review of Systems Exam Vitals Vital Signs Date Temp Pulse Resp B/P (MAP) Pulse Ox O2 O2 Flow FiO2 Time Delivery Rate 03/13/19 98.1 87 18 168/84 96 07:31 (112) 03/12/19 Nasal 2.0 17:36 Cannula Intake and Output 03/12/19 03/12/19 03/13/19 1515:00 23:00 07:00 IntakeIntake Total 500 ml OutputOutput Total 300 ml BalanceBalance 200 ml Results Result Diagram: 03/13/19 0543 03/13/19 0543 Results 24hrs Laboratory Tests Test 03/12/19 11:13 03/12/19 13:57 03/13/19 05:43 Prothrombin Time 14.7 Prothrombin Time Ratio 1.1 INR International 1.14 Normalized Ratio Activated Partial Thromboplast 31.1 Time Sodium Level 145 H 140 Potassium Level 3.9 4.2 Chloride Level 105 103 Carbon Dioxide Level 30 32 H Anion Gap 10 5 Blood Urea Nitrogen 18 19 Creatinine 1.36 H 1.19 Est Glomerular Filtrat 53 L > 60 Rate mL/min Glucose Level 96 77 Calcium Level 7.7 L 7.7 L Total Bilirubin 0.6 Direct Bilirubin 0.00 Indirect Bilirubin 0.6 Aspartate Amino 86 H Transf (AST/SGOT) Alanine 38 Aminotransferase (ALT/SGPT) Alkaline Phosphatase 128 H Creatine Kinase 58 Creatine Kinase Index 1.6 Creatinine Kinase MB (Mass) 0.91 Troponin I 0.016 B-Type Natriuretic Peptide 401 H Total Protein 7.0 Albumin 3.6 Globulin 3.40 H Albumin/Globulin Ratio 1.05 Salicylates Level < 1.0 L Acetaminophen Level < 10.0 L Ethyl Alcohol Level 250.0 H Blood Gas Specimen Source Blood arterial Arterial Blood Date Drawn 03/12/2019 2:11:19 PM Arterial Blood pH 7.354 (Temp corrected) Arterial Blood pCO2 53.3 H (Temp correct) Arterial Blood pO2 104.1 H (Temp corrected) Arterial Blood HCO3 29.0 H Arterial Blood Base Excess 2.5 Arterial Blood 97.1 Oxygen Saturation Crispin Test ACCEPTAB Arterial Blood Gas Right Radial Puncture Site Arterial 3.6 H Blood Carboxyhemoglobin Arterial Blood Methemoglobin 0.3 Blood Gas A-a O2 Differential 112.5 H Oxyhemoglobin Percent 93.3 Blood Gas Temperature 37.0 Blood Gas Modality NASAL CANNULA FiO2 39.0 Blood Gas Notified Whom M.D. Blood Gas Notified Time 03/12/2019 2:18:58 PM White Blood Count 11.0 H Red Blood Count 5.35 Hemoglobin 11.7 L Hematocrit 39.7 L Mean Corpuscular Volume 74.2 L Mean Corpuscular Hemoglobin 21.9 L Mean Corpuscular 29.5 L Hemoglobin Concent Red Cell Distribution Width 26.2 H Platelet Count 55 #L Mean Platelet Volume Immature Granulocytes % 1.200 H Neutrophils % 75.2 Lymphocytes % 5.9 L Monocytes % 15.4 H Eosinophils % 1.0 Basophils % 1.3 Nucleated Red Blood Cells % 0.0 Immature Granulocytes # 0.130 H Neutrophils # 8.3 H Lymphocytes # 0.7 L Monocytes # 1.7 H Eosinophils # 0.1 Basophils # 0.1 Nucleated Red Blood Cells # 0.0 Medications Medication Current Medications Ondansetron HCl (Zofran Inj) 4 mg ER BRIDGE PRN IV NAUSEA/VOMITING; Start 03/12/19 at 15:00; Stop 03/13/19 at 14:59 Acetaminophen (Tylenol Tab) 650 mg ER BRIDGE PRN PO .MILD PAIN 1-3 OR TEMP; Start 03/12/19 at 15:00; Stop 03/13/19 at 14:59 Furosemide (Lasix) 40 mg DAILY IV Last administered on 03/13/19at 08:24; Admin Dose 40 MG; Start 03/13/19 at 09:00 Lorazepam (Ativan) 1 mg Q6H PRN PO ANXIETY Last administered on 03/13/19at 03:06; Admin Dose 1 MG; Start 03/12/19 at 19:30 Multivit/Ca Carb/ B Cmplx/FA/Prenat (Janis-Bing) 1 tab DAILY PO Last administered on 03/13/19at 08:27; Admin Dose 1 TAB; Start 03/13/19 at 09:00 Potassium Chloride (Klor-Con 20) 20 meq DAILY PO Last administered on 03/13/19at 08:26; Admin Dose 20 MEQ; Start 03/13/19 at 09:00 Oxycodone HCl (Roxicodone) 10 mg Q4H PRN PO MODERATE PAIN LEVEL 4-6; Start at 22:30 Hydromorphone HCl (Dilaudid) 1.5 mg Q4H PRN IV SEVERE PAIN LEVEL 7-10 Last administered on 03/13/19 08:22; Admin Dose 1.5 MG; Start 03/13/19 at 00:30 Clonidine (Catapres) 0.1 mg Q6H PRN PO ELEVATED SYSTOLIC BP Last administered on 03/13/19at 00:34; Admin Dose 0.1 MG; Start 03/13/19 at 00:30 Acetaminophen (Tylenol Tab) 500 mg Q4H PRN PO MILD PAIN LEVEL 1-3; Start 03/13/19 at 05:00 Albuterol (Ventolin Hfa) 2 puff Q4H RESP THERAPY INH Last administered on 03/13/19 06:58; Admin Dose 2 PUFF; Start 03/13/19 at 05:00 Allopurinol (Zyloprim) 100 mg DAILY PO Last administered on 03/13/19 08:27; Admin Dose 100 MG; Start 03/13/19 at 09:00 Docusate Sodium (Colace) 100 mg BID PO Last administered on 03/13/19 08:26; Admin Dose 100 MG; Start 03/13/19 at 09:00 Folic Acid (Folic Acid) 1 mg DAILY PO Last administered on 03/13/19 08:27; Admin Dose 1 MG; Start 03/13/19 at 09:00 Hydralazine HCl (Apresoline) 25 mg Q8 PRN PO PRN; Start 03/13/19 at 05:00 Levothyroxine Sodium (Synthroid) 200 mcg BEFORE BREAKFAST PO Last administered on 03/13/19 06:50; Admin Dose 200 MCG; Start 03/13/19 at 07:00 Lorazepam (Ativan) 1 mg HS PRN PO NEEDED; Start 03/13/19 at 05:00 Lubiprostone (Amitiza) 24 mcg BID PO Last administered on 03/13/19 08:27; Admin Dose 24 MCG; Start 03/13/19 at 09:00 Metoprolol Succinate (Toprol Xl) 50 mg DAILY PO Last administered on 03/13/19 08:27; Admin Dose 50 MG; Start 03/13/19 at 09:00 Oxycodone HCl (Oxycontin) 10 mg Q12 PO ; Start 03/13/19 at 09:00 Pantoprazole (Protonix Tab) 40 mg AC BREAKFAST PO Last administered on 03/13/19at 06:50; Admin Dose 40 MG; Start 03/13/19 at 07:00 Spironolactone (Aldactone) 25 mg DAILY PO Last administered on 03/13/19 08:26; Admin Dose 25 MG; Start 03/13/19 at 09:00 Bumetanide (Bumex) 2 mg BID DIURETICS PO Last administered on 03/13/19 06:51; Admin Dose 2 MG; Start 03/13/19 at 06:00 Multivitamins 10 ml/Thiamine HCl 100 mg/Folic Acid 1 mg/Sodium Chloride 1,011.2 ml @ 125 mls/ hr DAILY@09 IVPB Last administered on 03/13/19 10:27; Admin Dose 125 MLS/HR; Start 03/13/19 at 09:00 ELADIO DELGADO MD Mar 13, 2019 10:58
[2019-03-13] MEDS ORDERED: AMLODIPINE 10 MG TAB PO STA (12:13)
--- NOTE | 2019-03-13 14:05 | CONS ---
DATE OF ADMISSION: 03/12/2019 DATE OF CONSULTATION: 03/13/2019 TYPE OF CONSULTATION: Infectious disease. REASON FOR CONSULTATION: Antibiotic management. HISTORY OF PRESENT ILLNESS: Yvon Milian is a 63-year-old male who comes in with weakness, troub le walking, swollen legs and abdominal pain. His past problems include: 1. Coronary artery disease with congestive heart failure. 2. History of alcoholism. His last drink was 10 hours prior to arrival in the ER. He has generalized weakness. Complains of s welling of his legs, but denies any calf tenderness. He felt that he was going through withdrawal fr om alcohol. He also has a history of amphetamine and cocaine abuse, but has not utilized any illicit drugs in the past several days. He has had multiple emergency room visits for similar episodes. He feels very shaky and unsteady in his gait, has a history of alcohol withdrawal seizures with similar symptoms. His past problems include abdominal surgery and fistula placement. The patient has COPD, hypertension, hyperlipidemia. ALLERGIES: THE PATIENT DENIES BEING ALLERGIC TO PENICILLIN. FAMILY HISTORY: Noncontributory. SOCIAL HISTORY: He does use alcohol. He smokes and he uses methamphetamine. He uses cocaine and us es heroin. PHYSICAL EXAMINATION: VITAL SIGNS: Stable. He is a well-developed, well-nourished male in no acute distress. SKIN: Without generalized rash. HEENT: Within normal limits. NECK: Supple. LYMPH NODES: None palpable. CHEST: Decreased breath sounds at the bases. He has bilateral rhonchi. HEART: Without murmur or gallop. ABDOMEN: Soft, nontender, nondistended, no pulsatile abdominal masses. No organosplenomegaly or mas ses. EXTREMITIES: Without cyanosis, clubbing or edema. RECTAL AND GENITAL: Deferred. NEUROLOGIC: No focal neurological abnormalities. HOSPITAL COURSE: His white count is 9.4 with 67% neutrophils, H and H of 12.9 and 43, platelet count 96,000. BUN and creatinine is 18/1.36, glucose of 96. The patient did not appear to be in respirat ory distress. The patient was treated for alcohol intoxication. He has acute on chronic diastolic c ongestive heart failure, to be seen by Dr. Foley. He has cellulitis of bilateral lower extremities . He has a left foot plantar ulcer. DVT study is negative. Chest x-ray: No acute cardiopulmonary process. The patient was seen also by Dr. Kirk Leung. BUN and creatinine is 19/1.9. The patient is currently on no antibiotics. He has chronic venous stasis in the lower extremities. I do not th ink that he has significant cellulitis. We will continue to observe off antibiotics. I will dictate my findings to Dr. Marlow. Dictated By: KRIS MARTINS MD, JD/NILDA Conf#: [id number] DID#: [id number] CC: KOKO MARLOW MD;*EndCC*
[2019-03-13] MEDS ORDERED: hydrALAzine 20 MG INJ IV PRN (15:00)
--- NOTE | 2019-03-13 17:23 | CONS ---
DATE OF ADMISSION: 03/12/2019 DATE OF CONSULTATION: 03/13/2019 TYPE OF CONSULTATION: Cardiology. REASON FOR CONSULTATION: Congestive heart failure exacerbation. REQUESTING PHYSICIAN: Koko Lara MD HISTORY OF PRESENT ILLNESS: Mr. Milian is a 63-year-old male well known to myself and multiple ho spital admissions with a history of diastolic congestive heart failure, hypertension, cirrhosis, recu rrent ascites, EtOH abuse, recurrent bouts of anemia, chronic kidney disease, chronic lower extremity edema, who presents with complaints of worsening dyspnea on exertion. Upon arrival initially in the emergency department, temperature of 96.7, blood pressure markedly elevated at 166/87, pulse 109, re spiratory rate 18, satting 92%. The patient's labs revealed a white blood cell count of 9.4, hemoglo bin 12.9 and platelet count of 96, sodium 145, potassium 3.9, creatinine 1.36, BUN of 18, AST 86, ALT 38, troponin negative, BNP of 401. ABG revealing a pH of 7.354, PaO2 of 104, pCO2 of 53. Tox scree n with EtOH level of 250. The patient's chest x-ray revealed no acute cardiopulmonary abnormalities. The patient's venous ultrasound revealed no sonographic evidence of DVT. The patient's electrocard iogram revealed sinus rhythm, rate of 80 with borderline inferior Q's, nonspecific ST wave abnormalit ies. . The patient subsequently was admitted to the floor and since admit to the floor, placed on ba seline Toprol with Norvasc at this time and p.r.n. hydralazine. The patient will be placed on Aldact one and Bumex. The patient at this time continues to have shortness of breath. PAST MEDICAL HISTORY: As above in HPI. MEDICATIONS CURRENTLY IN HOSPITAL: 1. Norvasc 10 mg daily. 2. Toprol-XL 50 mg p.o. b.i.d. 3. Janis-Bing. 4. Potassium chloride 20 mEq daily. 5. Allopurinol. 6. Colace. 7. Folic acid. 8. Amitiza. 9. Oxycodone. 10. Aldactone 25 mg daily. 11. Banana bag. 12. Synthroid 100 mcg daily. 13. Bumex 2 mg p.o. b.i.d. 14. Tylenol. 15. Albuterol. 16. Ativan. 17. Dilaudid. 18. Clonidine. 19. Oxycodone. ALLERGIES: PENICILLIN. SOCIAL HISTORY: No current tobacco. Positive EtOH abuse. No current illicit drug use. FAMILY HISTORY: No history of sudden cardiac or early CAD. REVIEW OF SYSTEMS: As above in HPI. CONSTITUTIONAL: No fevers, chills. PULMONARY: Shortness of breath, dyspnea on exertion. CARDIOVASCULAR: Congestive heart failure. GASTROINTESTINAL: Cirrhosis. GENITOURINARY: No hematuria. MUSCULOSKELETAL: Degenerative joint disease. PSYCHIATRIC: No documented psych history. NEUROLOGIC: No documented history of CVA. PHYSICAL EXAMINATION VITAL SIGNS: Temperature of 98.5, blood pressure markedly elevated at 135/80, pulse 87, respiratory rate 19, satting 98%. GENERAL: The patient is alert, awake, in no acute distress. NECK: JVP is approximately 9 to 10 cm of water. CHEST: Decreased breath sounds at bases bilaterally. HEART: Regular rate and rhythm. Normal S1, S2, I/ systolic murmur. ABDOMEN: Positive bowel sounds, soft, mildly distended, positive ascites. EXTREMITIES: Trace edema, chronic venous stasis changes. Thickening of skin. Loss of hair. Diffic ult to palpate distal pulses, bilateral posterior tibial. LABORATORY DATA: Most recently from today, sodium 140, potassium 4.2, creatinine 1.1, BUN 19. INR 1 .1. White blood cell count 11.0, hemoglobin 11.7, platelet count of 55. ABG revealing a pH of 7.354 , PaO2 of 104, pCO2 of 53. IMAGING STUDIES: As above in HPI. No further imaging studies for my review at this time. ELECTROCARDIOGRAM: As above in HPI. No further electrocardiograms for my review at this time. IMPRESSION: 1. Congestive heart failure exacerbation, diastolic, acute on chronic by most recent echo in 01/2019 with an EF of 60%. 2. Cirrhosis with recurrent ascites. 3. Hypertension, uncontrolled. 4. Anemia. 5. History of benign prostatic hypertrophy. 6. Chronic lower extremity venous stasis. 7. Chronic obstructive pulmonary disease. 8. Hypothyroidism. RECOMMENDATIONS: 1. At this time, we would maintain patient on close telemetry monitoring, follow rhythm and rates cl osely. 2. We would complete the patient's rule out for myocardial infarction to ensure the patient's coughi ng symptoms are not result in acute coronary symptoms, acute myocardial infarction. 3. Continue the patient's Bumex and Aldactone for treatment of congestive heart failure well as asci maria a. 4. Continue the patient's Toprol and Norvasc with probable need to add additional antihypertensives likely standing hydralazine. 5. Pain control. 6. Continue the patient's banana bag. 7. Continue the patient's current Synthroid. 8. Check serial EKGs to assess for any significant ongoing changes, repeat EKG in morning, EKG for c omplaints of chest pain or change in rhythm. Thank you for allowing me to take part in the care of this patient. I will continue to follow him al gordon very closely with you with further recommendations will be made as the patient progresses through his inpatient hospital clinical course. Dictated By: DUSTY YOUNG/NILDA Conf#: [id number] DID#: [id number] CC: KOKO LARA MD;*EndCC*
[2019-03-13] MEDS: METOPROLOL (XL) 50 MG TAB PO SCH (21:15)
[2019-03-14] VITALS: BP 134/74; PULSE 83; RESP 20
[2019-03-14] MEDS: ALBUTEROL HFA 8 GM INHALER INH SCH ×3 (02:20→09:00)
[2019-03-14] MEDS: HYDROmorphONE 2 MG/ML SYG IV PRN ×2 (02:21→06:51)
[2019-03-14 03:16] VITALS: BP 127/77; PULSE 85; RESP 18
[2019-03-14 03:31] VITALS: BP 140/89; PULSE 79; RESP 17
[2019-03-14] MEDS: LORAZEPAM 1 MG TAB PO PRN (03:39)
[2019-03-14 04:00] VITALS: PULSE 86
[2019-03-14] MEDS: LEVOTHYROXINE 100 MCG TAB PO SCH (06:41)
[2019-03-14] MEDS: BUMETANIDE 1 MG TAB PO SCH (06:41)
[2019-03-14] MEDS: PANTOPRAZOLE (EC) 40 MG TAB PO SCH (06:41)
[2019-03-14 08:06] VITALS: PULSE 118
[2019-03-14] MEDS: oxyCODONE (CR) 10 MG TAB [oxyCONTIN] PO SCH (08:21)
[2019-03-14] MEDS: ALLOPURINOL 100 MG TAB PO SCH (08:21)
[2019-03-14] MEDS: MULTIVIT/CA CARB/B CMPLX/FA TAB PO SCH (08:21)
[2019-03-14] MEDS: LUBIPROSTONE 24 MCG CAP PO SCH (08:21)
[2019-03-14] MEDS: DOCUSATE SODIUM 100 MG CAP PO SCH (08:21)
[2019-03-14] MEDS: SPIRONOLACTONE 25 MG TAB PO SCH (08:21)
[2019-03-14] MEDS: FOLIC ACID 1 MG TAB PO SCH (08:21)
[2019-03-14] MEDS: POTASSIUM CHLORIDE (SR) 20 MEQ TAB PO SCH (08:22)
[2019-03-14] MEDS: METOPROLOL (XL) 50 MG TAB PO SCH (08:22)
--- NOTE | 2019-03-14 08:40 | CONS ---
Assessment/Plan Assessment/Plan Assessment/Plan (Daily) 1. acute on chronic renal failure due to Hemodynamics from CHF and decompensated liver cirrhosis, rule out Type II HRS 2. Anemia of CKD 5. Decompensated Liver cirrhosis with Symptomatic ascites 6. H/O HTN 7. h/o Liver cirrhosis with ascites 8. H/o Diastolic CHF 9. Bilateral LE chronic venous stasis 10.H/o BPH on Flomax Plan: BUN/Cr improved to 19/.19 - other electrolytes stable HCo3 32- K normal, d/c IV lasix, continue bumex 2 mg pO BID and Spironolactone 25 mg po daily, KCL replacement has been ordered daily BP not well controlled , Increase Toprol Xl to 50mg PO BID, add amlodipine 10mg po daily one dose now , Hydralazine 50mg PO Q 6 hr prn SBP more than 150 mm hg -EGD done April 2018 showed duodenal ulcer and gastritis -s/p colonoscopy 01/28/19 Flomax 0.4mg po daily for BPH will follow up Consultation Date/Type/Reason Admit Date/Time Mar 12, 2019 at 14:43 Initial Consult Date Type of Consult NEPHROLOGY Requesting Provider: KOKO MARLOW MD Date/Time of Note DATE: 03/14/19 TIME: 08:40 Exam/Review of Systems Exam Vitals Vital Signs Date Temp Pulse Resp B/P (MAP) Pulse Ox O2 O2 Flow FiO2 Time Delivery Rate 03/14/19 86 04:00 03/14/19 97.7 17 140/89 91 03:31 (106) 03/13/19 Nasal 3.0 16:10 Cannula Intake and Output 03/13/19 03/13/19 03/14/19 1515:00 23:00 07:00 IntakeIntake Total 1200 ml 750 ml OutputOutput Total 800 ml 3 ml BalanceBalance 400 ml 747 ml Results Result Diagram: 03/14/19 0601 03/14/19 0600 Results 24hrs Laboratory Tests Test 03/13/19 17:57 03/14/19 00:15 03/14/19 00:26 03/14/19 06:00 Creatine Kinase 63 85 104 Creatine Kinase Index 2.0 2.0 2.4 Creatinine Kinase MB 1.29 1.72 2.48 H (Mass) Troponin I 0.012 0.013 < 0.012 Urine Color YELLOW Urine Clarity CLEAR Urine pH 6.0 Urine Specific [place] 1.006 Urine Ketones NEGATIVE Urine Nitrite NEGATIVE Urine Bilirubin NEGATIVE Urine Urobilinogen NEGATIVE Urine Leukocyte Esterase NEGATIVE Urine Microscopic RBC 13 H Urine Microscopic WBC 0 Urine Hemoglobin 2+ H Urine Glucose NEGATIVE Urine Total Protein 1+ H Urine Opiates Screen Positive Urine Barbiturates Negative Urine Amphetamines Negative Screen Urine Benzodiazepines Negative Screen Urine Cocaine Screen Negative Urine Cannabinoids Negative Sodium Level 137 Potassium Level 4.1 Chloride Level 98 Carbon Dioxide Level 31 Anion Gap 8 Blood Urea Nitrogen 21 H Creatinine 1.39 H Est Glomerular Filtrat 52 L Rate mL/min Glucose Level 94 Calcium Level 8.4 Triglycerides Level 123 Cholesterol Level 191 LDL Cholesterol, 105 Calculated HDL Cholesterol 61 Cholesterol/HDL Ratio 3.1 Test 03/14/19 06:01 White Blood Count 13.9 #H Red Blood Count 6.04 Hemoglobin 13.3 L Hematocrit 45.2 Mean Corpuscular Volume 74.8 L Mean Corpuscular 22.0 L Hemoglobin Mean Corpuscular 29.4 L Hemoglobin Concent Red Cell Distribution 26.2 H Width Platelet Count 77 #L Mean Platelet Volume Immature Granulocytes % 1.300 H Neutrophils % 66.9 Lymphocytes % 11.4 L Monocytes % 16.6 H Eosinophils % 2.7 Basophils % 1.1 Nucleated Red Blood 0.0 Cells % Immature Granulocytes # 0.180 H Neutrophils # 9.3 H Lymphocytes # 1.6 Monocytes # 2.3 H Eosinophils # 0.4 Basophils # 0.2 H Nucleated Red Blood 0.0 Cells # Uric Acid 12.8 H Medications Medication Current Medications Lorazepam (Ativan) 1 mg Q6H PRN PO ANXIETY Last administered on 03/14/19at 03:39; Admin Dose 1 MG; Start 03/12/19 at 19:30 Multivit/Ca Carb/ B Cmplx/FA/Prenat (Janis-Bing) 1 tab DAILY PO Last administ ered on 03/13/19 08:27; Admin Dose 1 TAB; Start 03/13/19 at 09:00 Potassium Chloride (Klor-Con 20) 20 meq DAILY PO Last administered on 03/13/19 08:26; Admin Dose 20 MEQ; Start 03/13/19 at 09:00 Oxycodone HCl (Roxicodone) 10 mg Q4H PRN PO MODERATE PAIN LEVEL 4-6; Start 03/12/19 at 22:30 Hydromorphone HCl (Dilaudid) 1.5 mg Q4H PRN IV SEVERE PAIN LEVEL 7-10 Last administered on 03/14/19 06:51; Admin Dose 1.5 MG; Start 03/13/19 at 00:30 Clonidine (Catapres) 0.1 mg Q6H PRN PO ELEVATED SYSTOLIC BP Last administered on 03/13/19 00:34; Admin Dose 0.1 MG; Start 03/13/19 at 00:30 Acetaminophen (Tylenol Tab) 500 mg Q4H PRN PO MILD PAIN LEVEL 1-3; Start 03/13/19 at 05:00 Albuterol (Ventolin Hfa) 2 puff Q4H RESP THERAPY INH Last administered on 03/14/19 06:40; Admin Dose 2 PUFF; Start 03/13/19 at 05:00 Allopurinol (Zyloprim) 100 mg DAILY PO Last administered on 03/13/19 08:27; Admin Dose 100 MG; Start 03/13/19 at 09:00 Docusate Sodium (Colace) 100 mg BID PO Last administered on 03/13/19 21:16; Ad min Dose 100 MG; Start 03/13/19 at 09:00 Folic Acid (Folic Acid) 1 mg DAILY PO Last administered on 03/13/19 08:27; Admin Dose 1 MG; Start 03/13/19 at 09:00 Levothyroxine Sodium (Synthroid) 200 mcg BEFORE BREAKFAST PO Last administered on 03/14/19 06:41; Admin Dose 200 MCG; Start 03/13/19 at 07:00 Lorazepam (Ativan) 1 mg HS PRN PO NEEDED; Start 03/13/19 at 05:00 Lubiprostone (Amitiza) 24 mcg BID PO Last administered on 03/13/19 21:17; Admin Dose 24 MCG; Start 03/13/19 at 09:00 Oxycodone HCl (Oxycontin) 10 mg Q12 PO Last administered on 03/13/19 21:17; Admin Dose 10 MG; Start 03/13/19 at 09:00 Pantoprazole (Protonix Tab) 40 mg AC BREAKFAST PO Last administered on 03/14/19 06:41; Admin Dose 40 MG; Start 03/13/19 at 07:00 Spironolactone (Aldactone) 25 mg DAILY PO Last administered on 03/13/19 08:26; Admin Dose 25 MG; Start 03/13/19 at 09:00 Bumetanide (Bumex) 2 mg BID DIURETICS PO Last administered on 03/14/19at 06:41; Admin Dose 2 MG; Start 03/13/19 at 06:00 Multivitamins 10 ml/Thiamine HCl 100 mg/Folic Acid 1 mg/Sodium Chloride 1,011.2 ml @ 125 mls/ hr DAILY@09 IVPB Last administered on 03/13/19at 10:27; Admin Dose 125 MLS/HR; Start 03/13/19 at 09:00 Amlodipine Besylate (Norvasc) 10 mg DAILY PO ; Start 03/14/19 at 09:00 Metoprolol Succinate (Toprol Xl) 50 mg BID PO Last administered on 03/13/19at 21:15; Admin Dose 50 MG; Start 03/13/19 at 21:00 Hydralazine HCl (Apresoline) 50 mg Q6H PRN PO SBP more than 150 mm hg ; Start 03/13/19 at 21:00 Hydralazine HCl (Apresoline) 10 mg Q4H PRN IV SBP>170 Last administered on 03/13/19at 18:34; Admin Dose 10 MG; Start 03/13/19 at 15:00 ELADIO DELGADO MD Mar 14, 2019 08:40
[2019-03-14] MEDS: MULTIVITAMINS 10 ML, THIAMINE 100 MG, FOLIC ACID 1 MG in SOD CHLORIDE 0.9% 1,000 ML IVPB SCH (08:42)
[2019-03-14] MEDS ORDERED: AMLODIPINE 10 MG TAB PO SCH (09:00)
--- NOTE | 2019-03-14 11:15 | PN ---
Date/Time of Note Date/Time of Note DATE: 03/14/19 TIME: 11:14 Assessment/Plan VTE Prophylaxis Risk score (from [facility] [place]0 risk: 4 SCD applied (from [facility] [place]): No SCD contraindicated: other Pharmacological prophylaxis: other Pharm contraindication: other Lines/Catheters IV Catheter Type ([facility]): Mid Line Assessment/Plan Assessment/Plan Alcoholic intoxication - Banana Bag CHF (congestive heart failure) -Acute on chronic diastolic congestive heart failure. -Continue Lasix. -Dr. Foley notified in cardiology consultation. Cellulitis BLE - ID consult notified -COPD - no acute issues -Anemia, -Alcoholic liver cirrhosis -Acute kidney injury on chronic kidney disease. - Dr. Leung notified in nephrology consultation. -Bilateral lower extremities chronic venous stasis -Left foot plantar ulcer. -Obesity - weight managment -Nicotine dependence- cessation is strongly advised. -Continues alcohol use, cessation is strongly advised. -Poor medical compliance Further recommendations based on clinical course. Plan of care discussed with Dr. Lara. Result Diagram: 03/14/19 0601 03/14/19 0600 Results 24hrs Laboratory Tests Test 03/13/19 17:57 03/14/19 00:15 03/14/19 00:26 03/14/19 06:00 Creatine Kinase 63 85 104 Creatine Kinase Index 2.0 2.0 2.4 Creatinine Kinase MB 1.29 1.72 2.48 H (Mass) Troponin I 0.012 0.013 < 0.012 Urine Color YELLOW Urine Clarity CLEAR Urine pH 6.0 Urine Specific [place] 1.006 Urine Ketones NEGATIVE Urine Nitrite NEGATIVE Urine Bilirubin NEGATIVE Urine Urobilinogen NEGATIVE Urine Leukocyte Esterase NEGATIVE Urine Microscopic RBC 13 H Urine Microscopic WBC 0 Urine Hemoglobin 2+ H Urine Glucose NEGATIVE Urine Total Protein 1+ H Urine Opiates Screen Positive Urine Barbiturates Negative Urine Amphetamines Negative Screen Urine Benzodiazepines Negative Screen Urine Cocaine Screen Negative Urine Cannabinoids Negative Sodium Level 137 Potassium Level 4.1 Chloride Level 98 Carbon Dioxide Level 31 Anion Gap 8 Blood Urea Nitrogen 21 H Creatinine 1.39 H Est Glomerular Filtrat 52 L Rate mL/min Glucose Level 94 Calcium Level 8.4 Triglycerides Level 123 Cholesterol Level 191 LDL Cholesterol, 105 Calculated HDL Cholesterol 61 Cholesterol/HDL Ratio 3.1 Test 03/14/19 06:01 White Blood Count 13.9 #H Red Blood Count 6.04 Hemoglobin 13.3 L Hematocrit 45.2 Mean Corpuscular Volume 74.8 L Mean Corpuscular 22.0 L Hemoglobin Mean Corpuscular 29.4 L Hemoglobin Concent Red Cell Distribution 26.2 H Width Platelet Count 77 #L Mean Platelet Volume Immature Granulocytes % 1.300 H Neutrophils % 66.9 Lymphocytes % 11.4 L Monocytes % 16.6 H Eosinophils % 2.7 Basophils % 1.1 Nucleated Red Blood 0.0 Cells % Immature Granulocytes # 0.180 H Neutrophils # 9.3 H Lymphocytes # 1.6 Monocytes # 2.3 H Eosinophils # 0.4 Basophils # 0.2 H Nucleated Red Blood 0.0 Cells # Uric Acid 12.8 H Subjective 24 Hr Interval Summary Free Text/Dictation Patient eloped aground 1100 am today Patient was demanding Dilaudid more frequently was being uncooperative no events reported last night dw staff Exam/Review of Systems Exam Vitals Vital Signs Date Temp Pulse Resp B/P (MAP) Pulse Ox O2 O2 Flow FiO2 Time Delivery Rate 03/14/19 118 08:06 03/14/19 97.7 17 140/89 91 03:31 (106) 03/13/19 Nasal 3.0 16:10 Cannula Intake and Output 03/13/19 03/13/19 03/14/19 1515:00 23:00 07:00 IntakeIntake Total 1200 ml 750 ml OutputOutput Total 800 ml 3 ml BalanceBalance 400 ml 747 ml Results Results 24hrs Laboratory Tests Test 03/13/19 17:57 03/14/19 00:15 03/14/19 00:26 03/14/19 06:00 Creatine Kinase 63 85 104 Creatine Kinase Index 2.0 2.0 2.4 Creatinine Kinase MB 1.29 1.72 2.48 H (Mass) Troponin I 0.012 0.013 < 0.012 Urine Color YELLOW Urine Clarity CLEAR Urine pH 6.0 Urine Specific [place] 1.006 Urine Ketones NEGATIVE Urine Nitrite NEGATIVE Urine Bilirubin NEGATIVE Urine Urobilinogen NEGATIVE Urine Leukocyte Esterase NEGATIVE Urine Microscopic RBC 13 H Urine Microscopic WBC 0 Urine Hemoglobin 2+ H Urine Glucose NEGATIVE Urine Total Protein 1+ H Urine Opiates Screen Positive Urine Barbiturates Negative Urine Amphetamines Negative Screen Urine Benzodiazepines Negative Screen Urine Cocaine Screen Negative Urine Cannabinoids Negative Sodium Level 137 Potassium Level 4.1 Chloride Level 98 Carbon Dioxide Level 31 Anion Gap 8 Blood Urea Nitrogen 21 H Creatinine 1.39 H Est Glomerular Filtrat 52 L Rate mL/min Glucose Level 94 Calcium Level 8.4 Triglycerides Level 123 Cholesterol Level 191 LDL Cholesterol, 105 Calculated HDL Cholesterol 61 Cholesterol/HDL Ratio 3.1 Test 03/14/19 06:01 White Blood Count 13.9 #H Red Blood Count 6.04 Hemoglobin 13.3 L Hematocrit 45.2 Mean Corpuscular Volume 74.8 L Mean Corpuscular 22.0 L Hemoglobin Mean Corpuscular 29.4 L Hemoglobin Concent Red Cell Distribution 26.2 H Width Platelet Count 77 #L Mean Platelet Volume Immature Granulocytes % 1.300 H Neutrophils % 66.9 Lymphocytes % 11.4 L Monocytes % 16.6 H Eosinophils % 2.7 Basophils % 1.1 Nucleated Red Blood 0.0 Cells % Immature Granulocytes # 0.180 H Neutrophils # 9.3 H Lymphocytes # 1.6 Monocytes # 2.3 H Eosinophils # 0.4 Basophils # 0.2 H Nucleated Red Blood 0.0 Cells # Uric Acid 12.8 H Medications Medication Current Medications Lorazepam (Ativan) 1 mg Q6H PRN PO ANXIETY Last administered on 03/14/19at 03:39; Admin Dose 1 MG; Start 03/12/19 at 19:30 Multivit/Ca Carb/ B Cmplx/FA/Prenat (Janis-Bing) 1 tab DAILY PO Last administered on 03/14/19at 08:21; Admin Dose 1 TAB; Start 03/13/19 at 09:00 Potassium Chloride (Klor-Con 20) 20 meq DAILY PO Last administered on 03/14/19 08:22; Admin Dose 20 MEQ; Start 03/13/19 at 09:00 Oxycodone HCl (Roxicodone) 10 mg Q4H PRN PO MODERATE PAIN LEVEL 4-6; Start 03/12/19 at 22:30 Hydromorphone HCl (Dilaudid) 1.5 mg Q4H PRN IV SEVERE PAIN LEVEL 7-10 Last administered on 03/14/19at 06:51; Admin Dose 1.5 MG; Start 03/13/19 at 00:30 Clonidine (Catapres) 0.1 mg Q6H PRN PO ELEVATED SYSTOLIC BP Last administered on 03/13/19at 00:34; Admin Dose 0.1 MG; Start 03/13/19 at 00:30 Acetaminophen (Tylenol Tab) 500 mg Q4H PRN PO MILD PAIN LEVEL 1-3; Start 03/13/19 at 05:00 Albuterol (Ventolin Hfa) 2 puff Q4H RESP THERAPY INH Last administered on 03/14/19 09:00; Admin Dose 2 PUFF; Start 03/13/19 at 05:00 Allopurinol (Zyloprim) 100 mg DAILY PO Last administered on 03/14/19 08:21; Admin Dose 100 MG; Start 03/13/19 at 09:00 Docusate Sodium (Colace) 100 mg BID PO Last administered on 03/14/19 08:21; Admin Dose 100 MG; Start 03/13/19 at 09:00 Folic Acid (Folic Acid) 1 mg DAILY PO Last administered on 03/14/19 08:21; Ad min Dose 1 MG; Start 03/13/19 at 09:00 Levothyroxine Sodium (Synthroid) 200 mcg BEFORE BREAKFAST PO Last administered on 03/14/19 06:41; Admin Dose 200 MCG; Start 03/13/19 at 07:00 Lorazepam (Ativan) 1 mg HS PRN PO NEEDED; Start 03/13/19 at 05:00 Lubiprostone (Amitiza) 24 mcg BID PO Last administered on 03/14/19 08:21; Admin Dose 24 MCG; Start 03/13/19 at 09:00 Oxycodone HCl (Oxycontin) 10 mg Q12 PO Last administered on 03/14/19 08:21; Admin Dose 10 MG; Start 03/13/19 at 09:00 Pantoprazole (Protonix Tab) 40 mg AC BREAKFAST PO Last administered on 03/14/19 06:41; Admin Dose 40 MG; Start 03/13/19 at 07:00 Spironolactone (Aldactone) 25 mg DAILY PO Last administered on 03/14/19 08:21; Admin Dose 25 MG; Start 03/13/19 at 09:00 Bumetanide (Bumex) 2 mg BID DIURETICS PO Last administered on 03/14/19 06:41; Admin Dose 2 MG; Start 03/13/19 at 06:00 Multivitamins 10 ml/Thiamine HCl 100 mg/Folic Acid 1 mg/Sodium Chloride 1,011.2 ml @ 125 mls/ hr DAILY@09 IVPB Last administered on 03/14/19 08:42; Admin Dose 125 MLS/HR; Start 03/13/19 at 09:00 Amlodipine Besylate (Norvasc) 10 mg DAILY PO Last administered on 03/14/19 08:22; Admin Dose 10 MG; Start 03/14/19 at 09:00 Metoprolol Succinate (Toprol Xl) 50 mg BID PO Last administered on 03/14/19at 08:22; Admin Dose 50 MG; Start 03/13/19 at 21:00 Hydralazine HCl (Apresoline) 50 mg Q6H PRN PO SBP more than 150 mm hg ; Start 03/13/19 at 21:00 Hydralazine HCl (Apresoline) 10 mg Q4H PRN IV SBP>170 Last administered on 03/13/19 18:34; Admin Dose 10 MG; Start 03/13/19 at 15:00 GO LAMBERT Mar 14, 2019 11:15
--- NOTE | 2019-03-14 15:55 | RADRPT ---
Vent Rate: 77 bpm RR Interval: 780 msec OR Interval: 174 msec QRS Duration: 94 msec QT Interval: 439 msec QTC Interval: 497 msec P-R-T [place]: 56 - 1 - 14 degrees Sinus rhythm...normal P axis, V-rate 50- 99 Electronically Signed By: Kendall Foley
== END 2019-03-14 11:11 | disposition left against medical advice (07) | DRG 291 ==
LOC: E/R 06:35 → 6WM 14:43
PROVIDERS: ADMIT Internal Medicine; ATTEND Internal Medicine
PROC: 4A033R1 Measurement of Arterial Saturation, Peripheral, Percutaneous Approach (ICD-10-PCS; principal; 2019-03-12)
DX: I13.0 Hypertensive heart and chronic kidney disease with heart failure and stage 1 through stage 4 chronic kidney disease, or unspecified chronic kidney disease (principal); I50.33 Acute on chronic diastolic (congestive) heart failure; L03.116 Cellulitis of left lower limb; L03.115 Cellulitis of right lower limb; N17.9 Acute kidney failure, unspecified; F10.229 Alcohol dependence with intoxication, unspecified; J44.9 Chronic obstructive pulmonary disease, unspecified; E78.5 Hyperlipidemia, unspecified; Y90.8 Blood alcohol level of 240 mg/100 ml or more; N18.9 Chronic kidney disease, unspecified; E03.9 Hypothyroidism, unspecified; D69.59 Other secondary thrombocytopenia; I87.8 Other specified disorders of veins; E66.9 Obesity, unspecified; F17.210 Nicotine dependence, cigarettes, uncomplicated; E11.22 Type 2 diabetes mellitus with diabetic chronic kidney disease; E11.621 Type 2 diabetes mellitus with foot ulcer; L97.529 Non-pressure chronic ulcer of other part of left foot with unspecified severity; D63.1 Anemia in chronic kidney disease; K70.31 Alcoholic cirrhosis of liver with ascites; N40.0 Benign prostatic hyperplasia without lower urinary tract symptoms; I25.10 Atherosclerotic heart disease of native coronary artery without angina pectoris; F15.10 Other stimulant abuse, uncomplicated; F14.10 Cocaine abuse, uncomplicated; Z88.0 Allergy status to penicillin
CPT/HCPCS: 36600; 71045; 76705; 80048; 80053; 80061; 80307; 81001; 82550; 82553; 82803; 83880; 84484; 84560; 85025; 85610; 85730; 93005; 93970; 94644; 94664; 96374; J0360; J1170; J1940; J2060; J3411; J7030

== ENCOUNTER 2019-03-14 12:56 | Emergency (ER) | payer BC ==
[~2019-03-14] VITALS: Ht 170.2 cm; Wt 100.4 kg
[~2019-03-14 12:56] MED LIST changes: +ALBU18HF INHALATION; -ALBU90AE INHALATION; -ARFO15VI INHALATION; -ASC500 PO; +BUME2TAB2 PO; -DORZ10DR22 BOTH EYES; -EPO10ESRD SC; -ERTA1VIA3 IM; -FER325 PO; -FURO40TA4 PO; -GABA100C14 PO; +HYDR-3671 PO; -IPRA3AMP29 INHALATION; -LACT10SO5 PO; -LEVO125T7 PO; +LEVO200T6 PO; +LUBI24CA7 PO; +METO-319 PO; -ONDA4TAB13 PO; -RIFA550T4 PO; -SIME80TA60 PO; -SODI325T PO; +SPIR25TA PO; -TAMS-14 PO; -THIA100T56 PO
[2019-03-14 12:59] VITALS: Ht 170.2 cm; Wt 100.4 kg
[2019-03-14] MEDS ORDERED: ALBUTEROL 0.5% (NEB) 2.5 MG/0.5 ML AMP INH STA (15:18)
[2019-03-14] MEDS ORDERED: IPRATROPIUM (NEB) 0.5 MG/2.5 ML AMP INH STA (15:18)
--- NOTE | 2019-03-14 15:24 | ERD ---
ER Documentation Chief Complaint Chief Complaint bilateral pain in joints chronic 25 yrs HPI This is a 63-year-old male that has been seen and evaluated by myself 2 days prior to arrival. The patient has a history of congestive heart failure COPD diabetes and illicit drug use and alcohol abuse. When I initially evaluated the patient 2 days ago he been admitted to the hospital under the care of Dr. Cedillo for severe COPD exacerbation. The patient had venous duplex ultrasound of the lower extremities which were found to be normal. A chest radiograph was obtained and showed no evidence of pneumonia. The patient was given IV steroids. The patient however stated he left AGAINST MEDICAL ADVICE as he wanted to smoke a cigarette. The patient now returns back to the emergency department stating that he wants to be reevaluated. He is complaining of mild difficulty breathing. He denies headache. He denies any shaking of his upper or lower extremities. He also complains of bilateral pain in his lower extremities which she states is been present for over 25 years. He denies any shortness of breath at rest or exertion states his dyspnea is similar nature to his previous COPD exacerbations. No fevers or shaking or chills. ROS All systems reviewed and are negative except as per history of present illness. Medications Home Meds Reported Medications Lubiprostone* (Amitiza*) 24 Mcg Capsule, 24 MCG PO BID, #60 CAP 03/12/19 Oxycodone Hcl* (Oxycontin*) 10 Mg Tab.sr.12h, 10 MG PO NEEDED, TAB 03/12/19 Spironolactone* (Aldactone*) 25 Mg Tablet, 25 MG PO DAILY, #30 TAB 03/12/19 Pantoprazole* (Pantoprazole*) 40 Mg Tablet.dr, 40 MG PO AC BREAKFAST, TAB 03/12/19 Levothyroxine Sodium* (Levothyroxine Sodium*) 200 Mcg Tablet, 200 MCG PO BEFORE BREAKFAST, #30 TAB 03/12/19 Docusate Sodium* (Colace*) 100 Mg Capsule, 100 MG PO BID, #60 CAP 03/12/19 Lorazepam* (Lorazepam*) 1 Mg Tablet, 1 MG PO HS PRN for NEEDED, #30 TAB 03/12/19 Albuterol Sulfate* (Ventolin HFA*) 18 Gm Hfa.aer.ad, 2 PUFF INHALATION Q4H, #1 INHALER 03/12/19 Metoprolol Succinate* (Toprol XL*) 50 Mg Tab.er.24h, 50 MG PO DAILY, #30 TAB 03/12/19 Bumetanide* (Bumetanide*) 2 Mg Tablet, 2 MG PO BID, TAB 03/12/19 Allopurinol* (Allopurinol*) 100 Mg Tablet, 100 MG PO DAILY, TAB 03/12/19 Folic Acid* (Folic Acid*) 1 Mg Tablet, 1 MG PO DAILY, TAB 03/12/19 Hydralazine Hcl* (Hydralazine Hcl*) 25 Mg Tab, 25 MG PO Q8 PRN for PRN, #90 TAB 03/12/19 Acetaminophen* (Acetaminophen*) 500 MG Extra Strength Tablet, 500 MG PO Q4H PRN for MILD PAIN LEVEL 1-3, TAB 01/11/19 Discontinued Reported Medications Levothyroxine Sodium* (Levothyroxine Sodium*) 200 Mcg Tablet, 200 MCG PO BEFORE BREAKFAST, #30 TAB 03/12/19 Thiamine* (Vitamin B-1*) 100 Mg Tablet, 100 MG PO DAILY, TAB 01/11/19 Sodium Bicarbonate* (Sodium Bicarbonate*) 325 Mg Tablet, 325 MG PO TID, TAB 01/11/19 Simethicone* (Mylicon*) 80 Mg Tab, 80 MG PO Q6H, TAB 01/11/19 Albuterol Sulfate (Proair Respiclick) 90 Mcg Aer.pow.ba, 2 PUFFS INHALATION Q4H PRN for SHORTNESS OF BREATH, #1 BOTTLE 01/11/19 Pantoprazole* (Pantoprazole*) 40 Mg Tablet.dr, 40 MG PO AC BREAKFAST, TAB 01/11/19 Oxycodone Hcl* (Oxycontin*) 10 Mg Tab.sr.12h, 10 MG PO Q8H PRN for PAIN, TAB 01/11/19 Allopurinol* (Allopurinol*) 100 Mg Tablet, 100 MG PO DAILY, TAB 01/11/19 Rifaximin* (Xifaxan*) 550 Mg Tablet, 550 MG PO BID, TAB 01/11/19 Ondansetron Hcl* (Zofran*) 4 Mg Tab, 4 MG PO Q4H PRN for NAUSEA AND OR VOMITING, TAB 01/11/19 Ipratropium-Albuterol (Ipratropium-Albuterol) 0.5-3 Mg/3 Ml Ampul.neb, 3 ML INHALATION Q6 PRN for WHEEZING AND SOB, #30 VIAL 01/11/19 Gabapentin* (Gabapentin*) 100 Mg Capsule, 100 MG PO TID, #90 CAP 01/11/19 Furosemide* (Furosemide*) 40 Mg Tablet, 40 MG PO DAILY, TAB 01/11/19 Folic Acid* (Folic Acid*) 1 Mg Tablet, 1 MG PO DAILY, TAB 01/11/19 Tamsulosin Hcl* (Flomax*) 0.4 Mg Cap.er.24h, 0.4 MG PO HS, CAP 01/11/19 Ferrous Sulfate* (Ferrous Sulfate*) 325 Mg Tabec, 325 MG PO DAILY, TAB 01/11/19 Ertapenem Sodium (Invanz) 1 Gm Vial, 1 GM IM DAILY, VIAL 01/11/19 Epoetin Ghulam (Epogen) 10,000 Units/Ml Soln, 77230 UNITS SC Q TUE,SHARONA,SAT, VIAL 01/11/19 Lactulose* (Lactulose*) 10 Gm/15 Ml Solution, 30 ML PO Q6, ML 01/11/19 Docusate Sodium* (Colace*) 100 Mg Capsule, 200 MG PO QHS, #30 CAP 01/11/19 Dorzolamide-Timolol* (Cosopt*) 2%-0.5% - 10 Ml Soln, 1 DROP BOTH EYES BID, BOTTLE 01/11/19 Lorazepam* (Lorazepam*) 1 Mg Tablet, 1 MG PO NEEDED PRN for ANXIETY, #30 TAB 01/11/19 Ascorbic Acid (Vitamin C) 500 Mg Tab, 500 MG PO DAILY, TAB 01/11/19 Arformoterol Tartrate (Brovana) 15 Mcg/2 Ml Vial.neb, 15 MCG INHALATION BID, VIAL 01/11/19 Discontinued Scripts Levothyroxine Sodium* (Levothyroxine Sodium*) 125 Mcg Tablet, 250 MCG PO DAILY@06 for 30 Days, #30 TAB Prov:KOKO LARA MD 02/06/19 Allergies Allergies: Coded Allergies: Penicillins (Unverified Allergy, Unknown, 03/14/19) Patient strongly denies being allegic to PCN. He states, "I took that damn allergy band off. I'm not allergic to penicillen!" PMhx/Soc History of Surgery: Yes (LEFT FOOT SURGERY (PLANTAR ASPECT)) Anesthesia Reaction: No Hx Neurological Disorder: No Hx Respiratory Disorders: Yes (COPD) Hx Cardiac Disorders: Yes (HTN/CHF) Hx Psychiatric Problems: Yes (DEPRESSION(?)) Hx Miscellaneous Medical Probl: No Hx Alcohol Use: Yes Hx Substance Use: Yes (METH/ HEROIN/ COCAINE) Hx Tobacco Use: Yes Smoking Status: Current every day smoker Physical Exam Vitals Vital Signs Date Temp Pulse Resp B/P (MAP) Pulse Ox O2 O2 Flow FiO2 Time Delivery Rate 03/14/19 98.8 87 18 148/69 100 Nasal 8.0 16:26 (95) Cannula 03/14/19 80 19 95 21 15:51 03/14/19 98.8 84 16 145/68 97 Nasal 2.0 15:00 (93) Cannula 03/14/19 99.1 101 18 141/64 97 12:59 (89) Physical Exam Constitutional:Well-developed. Well-nourished. HEENT:Normocephalic. Atraumatic.Pupils were equal round reactive to light. Moist mucous membranes.No tonsillar exudates. Neck: No nuchal rigidity. No lymphadenopathy. No posterior cervical spine tenderness or step-offs. Respiratory: Not using accessory muscles of respiration.Lungs were clear to auscultation bilaterally. No rhonchi. No rales. Wheezing bilaterally on end expiration. Cardiovascular: Regular rate regular rhythm.No murmurs. No rubs were appreciated.S1, S2 normal. Distal pulses are palpable 2+ bilaterally. GI: Abdomen was soft. Nontender. Non Distended. No pulsatile abdominal masses or bruits. No rebound. No guarding. Bowel sounds were present and normal. Muscle skeletal: 2+ pitting edema the bilateral lower extremities with no asymmetrical calf tenderness or swelling. Skin: No petechia, no purpura. No lesions on the palms or the soles of the feet. No maculopapular rash. NEURO: Patient was alert, awake, orientated x3.No facial droop. Patient relates with a walker for assistance.Speech had regular rate and rhythm. No focal neurological deficits. Result Diagram: 03/14/19 1447 03/14/19 1447 Results 24 hrs Laboratory Tests Test 03/14/19 05:59 03/14/19 14:47 Ethyl Alcohol Level < 10.0 mg/dl White Blood Count 15.3 10^3/ul Red Blood Count 5.52 10^6/ul Hemoglobin 12.1 g/dl Hematocrit 41.4 % Mean Corpuscular Volume 75.0 fl Mean Corpuscular Hemoglobin 21.9 pg Mean Corpuscular Hemoglobin Concent 29.2 g/dl Red Cell Distribution Width 25.9 % Platelet Count 71 10^3/UL Mean Platelet Volume fl Immature Granulocytes % 0.900 % Neutrophils % % Segmented Neutrophils % (Manual) 77 % Band Neutrophils % (Manual) 1 % Lymphocytes % % Lymphocytes % (Manual) 4 % Monocytes % % Monocytes % (Manual) 16 % Eosinophils % % Eosinophils % (Manual) 2 % Basophils % % Nucleated Red Blood Cells % 0.0 /100WBC Immature Granulocytes # 0.130 10^3/ul Neutrophils # 10^3/ul Neutrophils # (Manual) 11.8 10^3/ul Band Neutrophils # 0.1 10^3/ul Lymphocytes (Manual) 0.6 10^3/ul Lymphocytes # 10^3/ul Monocytes # 10^3/ul Monocytes # (Manual) 2.4 10^3/ul Eosinophils # 10^3/ul Basophils # 10^3/ul Nucleated Red Blood Cells # 10^3/ul Platelet Estimate DECREASED Giant Platelets 1 % Polychromasia 1+ Hypochromasia 1+ Poikilocytosis 2+ Anisocytosis 1+ Microcytosis 1+ Tear Drop Cells 1+ Ovalocytes 2+ Prothrombin Time 14.6 Sec Prothrombin Time Ratio 1.1 INR International Normalized Ratio 1.13 Activated Partial Thromboplast Time 32.0 Sec Sodium Level 136 mmol/L Potassium Level 4.5 mmol/L Chloride Level 97 mmol/L Carbon Dioxide Level 27 mmol/L Anion Gap 12 Blood Urea Nitrogen 24 mg/dl Creatinine 1.73 mg/dl Est Glomerular Filtrat Rate mL/min 40 mL/min Glucose Level 79 mg/dl Calcium Level 8.0 mg/dl Total Bilirubin 1.1 mg/dl Direct Bilirubin 0.00 mg/dl Indirect Bilirubin 1.1 mg/dl Aspartate Amino Transf (AST/SGOT) 52 IU/L Alanine Aminotransferase (ALT/SGPT) 32 IU/L Alkaline Phosphatase 126 IU/L Creatine Kinase 138 IU/L Creatine Kinase Index 2.1 Creatinine Kinase MB (Mass) 2.85 ng/ml Troponin I < 0.012 ng/ml B-Type Natriuretic Peptide 3420 PG/ML Total Protein 7.0 g/dl Albumin 3.8 g/dl Globulin 3.20 g/dl Albumin/Globulin Ratio 1.18 Current Medications Medications Dose Sig/Trevor Start Time Status Last (Trade) Ordered Route PRN Stop Time Admin Dose Reason Admin Albuterol 10 mg ONCE STAT 03/14/19 DC 03/14/19 (Proventil INH 15:18 03/14/19 15:48 0.5% (Neb)) 15:23 Ipratropium 1 mg ONCE STAT 03/14/19 DC 03/14/19 [place] INH 15:18 03/14/19 15:48 (Atrovent 15:23 0.02% (Neb)) Nicotine 1 patch ONCE ONCE 03/14/19 DC (Nicoderm 21 TRANSDERM 15:30 03/14/19 Mg/ 24hr) 15:31 Lorazepam 1 mg ONCE ONCE 03/14/19 DC 03/14/19 (Ativan) IV 16:00 03/14/19 16:21 16:01 Procedures/MDM The patient presented to the emergency department with dyspnea. My differential diagnosis included but was not limited to upper airway obstruction, CHF, pulmonary embolism, cardiac ischemia, pneumonia, pneumothorax, anemia, drug overdose, pulmonary edema, COPD or asthma. The patient was placed in a cna caregiver continuous pulse oximetry and the patient had a midline present from previous admission when he had left AGAINST MEDICAL ADVICE before his IV could be removed. The patient had hypoxia at roughly 91% with wheezing. His symptoms appear to be the result of his COPD exacerbation. He was given a continuous n ebulizer treatment of albuterol and Atrovent. 12 Lead EKG tracing ordered and reviewed by myself showed: Normal sinus rhythm of 83 bpm and no arrhythmia. AL interval normal. QRS duration normal. No ST segment elevation No ST segment depression. No changes consistent with acute ischemia. Do not feel is necessary to repeat radiographic imaging as I had reviewed the previous chest radiograph I ordered 2 days prior to arrival that showed no pneumonia no infiltrates and no pulmonary vascular congestion. The patient had leukocytosis, white blood cell count of 15.3 compared to 13.9 on admission 2 days prior to arrival. However the patient had received IV steroids which likely was causing the leukocytosis. The patient serum ethanol was undetected. He did receive Ativan to prevent withdraw symptoms. The patient was requesting Dilaudid and at this time he just received Ativan. I did not feel comfortable administering opiates in conjunction with his benzodiazepines. The patient was to be admitted under the care of Dr. Lara but he was very upset that he could not be given his opiate analgesic medication and therefore left AMA without signing papers. He was a medical capacity to make his own decisions. He was explained the risks of doing so which could lead to worsening of his condition such as . The patient was able to ambulate with his walker out and his midline was removed. Departure Diagnosis: Primary Impression: COPD (chronic obstructive pulmonary disease) COPD type: emphysema Emphysema type: unspecified Qualified Codes: J43.9 - Emphysema, unspecified Additional Impression: Alcohol withdrawal Condition: LIZETT Calloway MD Mar 14, 2019 15:24
[2019-03-14] MEDS ORDERED: NICOTINE (21 MG/24 HR) PATCH TRANSDERM ONE (15:30)
[2019-03-14] MEDS ORDERED: LORAZEPAM 2 MG INJ IV ONE (16:00)
[2019-03-14 16:26] VITALS: BP 148/69; PULSE 87; RESP 18
== END 2019-03-14 18:37 | disposition left against medical advice (07) ==
LOC: E/R 12:56
DX: J44.9 Chronic obstructive pulmonary disease, unspecified (principal); F10.230 Alcohol dependence with withdrawal, uncomplicated; F17.210 Nicotine dependence, cigarettes, uncomplicated; I10 Essential (primary) hypertension; I50.9 Heart failure, unspecified; E11.9 Type 2 diabetes mellitus without complications
CPT/HCPCS: 80053; 80307; 82550; 82553; 83880; 84484; 85025; 85610; 85730; 93005; 94644; 96374; 99284; J2060; Z7610

== ENCOUNTER 2019-03-26 10:57 | Emergency (ER) | payer BC ==
[~2019-03-26] VITALS: Ht 182.9 cm; Wt 102.0 kg
[2019-03-26 11:12] VITALS: BP 142/78; PULSE 110; RESP 20; Ht 182.9 cm; Wt 102.0 kg
[2019-03-26] MEDS ORDERED: ALBU18HF INHALATION (13:07)
--- NOTE | 2019-03-26 13:08 | ERD ---
ER Documentation Chief Complaint Chief Complaint C/O ABD. PAIN, SOB, ETOH INTAKE LAST NIGHT. SMELLS ALCOHOL. HPI Patient is a 63-year-old male with CHF and hypertension who presents saying that he has shortness of breath. The patient says "I cannot walk". He is in a wheelchair. He admits to drinking alcohol this morning. He said he has not been eating well. He has body wide pain. He is speaking in full sentences. Upon review of old medical record the patient has multiple visits to the ER for various complaints. His primary doctor is Dr. Lara. ROS All systems reviewed and are negative except as per history of present illness. Medications Home Meds Active Scripts Albuterol Sulfate* (Ventolin HFA*) 18 Gm Hfa.aer.ad, 2 PUFF INHALATION Q4H, #1 INHALER Prov:VENKATESH KENYON MD 03/26/19 Reported Medications Lubiprostone* (Amitiza*) 24 Mcg Capsule, 24 MCG PO BID, #60 CAP 03/12/19 Oxycodone Hcl* (Oxycontin*) 10 Mg Tab.sr.12h, 10 MG PO NEEDED, TAB 03/12/19 Spironolactone* (Aldactone*) 25 Mg Tablet, 25 MG PO DAILY, #30 TAB 03/12/19 Pantoprazole* (Pantoprazole*) 40 Mg Tablet.dr, 40 MG PO AC BREAKFAST, TAB 03/12/19 Levothyroxine Sodium* (Levothyroxine Sodium*) 200 Mcg Tablet, 200 MCG PO BEFORE BREAKFAST, #30 TAB 03/12/19 Docusate Sodium* (Colace*) 100 Mg Capsule, 100 MG PO BID, #60 CAP 03/12/19 Lorazepam* (Lorazepam*) 1 Mg Tablet, 1 MG PO HS PRN for NEEDED, #30 TAB 03/12/19 Albuterol Sulfate* (Ventolin HFA*) 18 Gm Hfa.aer.ad, 2 PUFF INHALATION Q4H, #1 INHALER 03/12/19 Metoprolol Succinate* (Toprol XL*) 50 Mg Tab.er.24h, 50 MG PO DAILY, #30 TAB 03/12/19 Bumetanide* (Bumetanide*) 2 Mg Tablet, 2 MG PO BID, TAB 03/12/19 Allopurinol* (Allopurinol*) 100 Mg Tablet, 100 MG PO DAILY, TAB 03/12/19 Folic Acid* (Folic Acid*) 1 Mg Tablet, 1 MG PO DAILY, TAB 03/12/19 Hydralazine Hcl* (Hydralazine Hcl*) 25 Mg Tab, 25 MG PO Q8 PRN for PRN, #90 TAB 03/12/19 Acetaminophen* (Acetaminophen*) 500 MG Extra Strength Tablet, 500 MG PO Q4H PRN for MILD PAIN LEVEL 1-3, TAB 01/11/19 Allergies Allergies: Coded Allergies: Penicillins (Unverified Allergy, Unknown, 03/26/19) Patient strongly denies being allegic to PCN. He states, "I took that damn allergy band off. I'm not allergic to penicillen!" PMhx/Soc History of Surgery: Yes (LEFT FOOT SURGERY (PLANTAR ASPECT)) Anesthesia Reaction: No Hx Neurological Disorder: No Hx Respiratory Disorders: Yes (COPD) Hx Cardiac Disorders: Yes (HTN/CHF) Hx Psychiatric Problems: No Hx Miscellaneous Medical Probl: No Hx Alcohol Use: Yes Hx Substance Use: Yes (METH/ HEROIN/ COCAINE) Hx Tobacco Use: Yes FmHx Family History: No diabetes Physical Exam Vitals Vital Signs Date Temp Pulse Resp B/P (MAP) Pulse Ox O2 O2 Flow FiO2 Time Delivery Rate 03/26/19 97.7 110 20 142/78 95 11:12 (99) Physical Exam Const: No acute distress Head: Atraumatic Eyes: Normal Conjunctiva ENT: Normal External Ears, Nose and Mouth. Neck: Full range of motion. No meningismus. Resp: Decreased breath sounds bilaterally Cardio: Regular rate and rhythm, no murmurs Abd: Soft, non tender, non distended. Normal bowel sounds Skin: No petechiae or rashes Back: No midline or flank tenderness Ext: 1+ pitting edema bilaterally lower extremities Neur: Awake and alert Psych: Normal Mood and Affect Procedures/MDM EKG read by me: Rate/Rhythm: Sinus tachycardia at a rate of 107 Intervals: Normal Impression: Tachycardia without ischemia Smoking Cessation Therapy: Pt. was lectured for greater than 3 minutes on the health risks of continued smoking and the benefits of cessation. Patient is a 63-year-old male with history of hypertension and CHF and smoking who presents with shortness of breath. He is speaking in full sentences. He uses a wheelchair. He does not appear to be in any acute distress at this time and he has frequent visits for multiple complaints. I do believe there is an element of malingering. I doubt pneumonia, pneumothorax, pulmonary embolism, or acute coronary syndrome. I believe outpatient management is appropriate but the patient will need close follow-up with his primary doctor within 24 to 48 hours. He can return for any worsening symptoms. Departure Diagnosis: Primary Impression: Dyspnea Dyspnea type: unspecified Qualified Codes: R06.00 - Dyspnea, unspecified Additional Impression: Alcoholic intoxication Complication of substance-induced condition: uncomplicated Qualified Codes: F10.920 - Alcohol use, unspecified with intoxication, uncomplicated Condition: Fair Patient Instructions: Dyspnea, Alcohol Intoxication Additional Instructions: Call your primary care doctor TOMORROW for an appointment during the next 1-2 days.See the doctor sooner or return here if your condition worsens before your appointment time. VENKATESH KENYON MD Mar 26, 2019 13:08
== END 2019-03-26 14:02 | disposition home or self-care (01) ==
LOC: E/R 10:57
DX: F10.920 Alcohol use, unspecified with intoxication, uncomplicated (principal); I11.0 Hypertensive heart disease with heart failure; I50.9 Heart failure, unspecified; J44.1 Chronic obstructive pulmonary disease with (acute) exacerbation
CPT/HCPCS: 93005

== ENCOUNTER 2019-03-31 05:54 | Inpatient (IN) | payer BC ==
[~2019-03-31] VITALS: Ht 182.9 cm; Wt 97.6 kg
[2019-03-31] MEDS ORDERED: ONDANSETRON 4 MG INJ IV STA (06:40)
[2019-03-31] MEDS ORDERED: FAMOTIDINE 20 MG INJ IV ONE (07:00)
[2019-03-31] MEDS ORDERED: LORAZEPAM 2 MG INJ IV ONE ×2 (07:00→10:30)
--- NOTE | 2019-03-31 07:34 | ERD ---
ER Documentation Chief Complaint Chief Complaint abdominal pain 2 days. also c/o blood in vomit/stool HPI This is a 63-year-old male. He has a history of alcohol abuse. The patient indicates his last consumption of alcohol was roughly 12 hours prior to arrival. He states he is experiencing epigastric discomfort. He states it is a sharp shooting pain. The pain does not radiate to his back. He states he has had multiple similar episodes of this epigastric discomfort over the past several years. He also has a history of congestive heart failure. He denies any difficulty breathing at this time. He denies any swelling of his lower extremities. The patient stated he noticed bright red blood in his stool yesterday. He did have one episode of emesis which he stated was pink in color. He denies a headache. He has no chest pressure. Patient had multiple previous emergency room visits. ROS All systems reviewed and are negative except as per history of present illness. Medications Home Meds Reported Medications Lubiprostone* (Amitiza*) 24 Mcg Capsule, 24 MCG PO BID, #60 CAP 03/12/19 Oxycodone Hcl* (Oxycontin*) 10 Mg Tab.sr.12h, 10 MG PO NEEDED, TAB 03/12/19 Spironolactone* (Aldactone*) 25 Mg Tablet, 25 MG PO DAILY, #30 TAB 03/12/19 Pantoprazole* (Pantoprazole*) 40 Mg Tablet.dr, 40 MG PO AC BREAKFAST, TAB 03/12/19 Levothyroxine Sodium* (Levothyroxine Sodium*) 200 Mcg Tablet, 200 MCG PO BEFORE BREAKFAST, #30 TAB 03/12/19 Docusate Sodium* (Colace*) 100 Mg Capsule, 100 MG PO BID, #60 CAP 03/12/19 Lorazepam* (Lorazepam*) 1 Mg Tablet, 1 MG PO HS PRN for NEEDED, #30 TAB 03/12/19 Albuterol Sulfate* (Ventolin HFA*) 18 Gm Hfa.aer.ad, 2 PUFF INHALATION Q4H, #1 INHALER 03/12/19 Metoprolol Succinate* (Toprol XL*) 50 Mg Tab.er.24h, 50 MG PO DAILY, #30 TAB 03/12/19 Bumetanide* (Bumetanide*) 2 Mg Tablet, 2 MG PO BID, TAB 03/12/19 Allopurinol* (Allopurinol*) 100 Mg Tablet, 100 MG PO DAILY, TAB 03/12/19 Folic Acid* (Folic Acid*) 1 Mg Tablet, 1 MG PO DAILY, TAB 03/12/19 Hydralazine Hcl* (Hydralazine Hcl*) 25 Mg Tab, 25 MG PO Q8 PRN for PRN, #90 TAB 03/12/19 Acetaminophen* (Acetaminophen*) 500 MG Extra Strength Tablet, 500 MG PO Q4H PRN for MILD PAIN LEVEL 1-3, TAB 01/11/19 Discontinued Scripts Albuterol Sulfate* (Ventolin HFA*) 18 Gm Hfa.aer.ad, 2 PUFF INHALATION Q4H, #1 INHALER Prov:VENKATESH KENYON MD 03/26/19 Allergies Allergies: Coded Allergies: Penicillins (Unverified Allergy, Unknown, 03/31/19) Patient strongly denies being allegic to PCN. He states, "I took that damn allergy band off. I'm not allergic to penicillen!" PMhx/Soc History of Surgery: Yes (LEFT FOOT SURGERY (PLANTAR ASPECT)) Anesthesia Reaction: No Hx Neurological Disorder: No Hx Respiratory Disorders: Yes (COPD) Hx Cardiac Disorders: Yes (HTN/CHF) Hx Psychiatric Problems: No Hx Miscellaneous Medical Probl: No Hx Alcohol Use: Yes Hx Substance Use: Yes (METH/ HEROIN/ COCAINE) Hx Tobacco Use: Yes Smoking Status: Current every day smoker Physical Exam Vitals Vital Signs Date Temp Pulse Resp B/P (MAP) Pulse Ox O2 O2 Flow FiO2 Time Delivery Rate 03/31/19 121 18 141/69 99 Room Air 12:00 (93) 03/31/19 114 18 158/69 97 Room Air 09:30 (98) 03/31/19 108 18 160/77 97 Room Air 07:35 (104) 03/31/19 98.5 122 20 122/70 98 06:08 (87) Physical Exam Constitutional:Well-developed. Well-nourished. HEENT:Normocephalic. Atraumatic.Pupils were equal round reactive to light. Moist mucous membranes.No tonsillar exudates. Mild conjunctival pallor Neck: No nuchal rigidity. No lymphadenopathy. No posterior cervical spine t enderness or step-offs. Respiratory: Not using accessory muscles of respiration.Lungs were clear to auscultation bilaterally. No rhonchi. No rales. No wheezing. Cardiovascular: Tachycardic with regular rhythm.No murmurs. No rubs were appreciated.S1, S2 normal. Distal pulses are palpable 2+ bilaterally. GI: Abdomen was soft. Nontender with no epigastric tenderness. Non Distended. No pulsatile abdominal masses or bruits. No rebound. No guarding. Bowel sounds were present and normal. Rectal: Fecal occult blood test was positive but no gross blood per rectum. Muscle skeletal: Full range of motion of both the upper and lower extremities bilaterally.Normal muscle tone.No assymetrical calf tenderness or swelling. Skin: No petechia, no purpura. No lesions on the palms or the soles of the feet. No maculopapular rash. No pallor NEURO: Patient was alert, awake, orientated x3.No facial droop. Gait observed and normal with no ataxia.Speech had regular rate and rhythm. No focal neurological deficits. Mild asterixis. Result Diagram: 03/31/19 0733 03/31/19 0733 Results 24 hrs Laboratory Tests Test 03/31/19 07:33 White Blood Count 12.2 10^3/ul Red Blood Count 4.00 10^6/ul Hemoglobin 9.1 g/dl Hematocrit 29.3 % Mean Corpuscular Volume 73.3 fl Mean Corpuscular Hemoglobin 22.8 pg Mean Corpuscular Hemoglobin Concent 31.1 g/dl Red Cell Distribution Width 23.6 % Platelet Count 70 10^3/UL Mean Platelet Volume fl Immature Granulocytes % 1.500 % Neutrophils % 73.5 % Lymphocytes % 7.6 % Monocytes % 15.2 % Eosinophils % 0.6 % Basophils % 1.6 % Nucleated Red Blood Cells % 0.0 /100WBC Immature Granulocytes # 0.180 10^3/ul Neutrophils # 9.0 10^3/ul Lymphocytes # 0.9 10^3/ul Monocytes # 1.9 10^3/ul Eosinophils # 0.1 10^3/ul Basophils # 0.2 10^3/ul Nucleated Red Blood Cells # 0.0 10^3/ul Prothrombin Time 14.9 Sec Prothrombin Time Ratio 1.2 INR International Normalized Ratio 1.16 Activated Partial Thromboplast Time 32.7 Sec Sodium Level 138 mmol/L Potassium Level 3.6 mmol/L Chloride Level 101 mmol/L Carbon Dioxide Level 23 mmol/L Anion Gap 14 Blood Urea Nitrogen 61 mg/dl Creatinine 1.46 mg/dl Est Glomerular Filtrat Rate mL/min 49 mL/min Glucose Level 85 mg/dl Calcium Level 8.1 mg/dl Total Bilirubin 1.0 mg/dl Direct Bilirubin 0.00 mg/dl Indirect Bilirubin 1.0 mg/dl Aspartate Amino Transf (AST/SGOT) 55 IU/L Alanine Aminotransferase (ALT/SGPT) 27 IU/L Alkaline Phosphatase 101 IU/L Troponin I 0.045 ng/ml B-Type Natriuretic Peptide 170 PG/ML Total Protein 6.2 g/dl Albumin 3.3 g/dl Globulin 2.90 g/dl Albumin/Globulin Ratio 1.13 Amylase Level 76 U/L Lipase 60 U/L Ethyl Alcohol Level 75.0 mg/dl Current Medications Medications Dose Sig/Trevor Start Time Status Last (Trade) Ordered Route PRN Stop Time Admin Dose Reason Admin Lorazepam 1 mg ONCE ONCE 03/31/19 DC 03/31/19 (Ativan) IV 07:00 07:28 03/31/19 07:01 Ondansetron 4 mg ONCE STAT 03/31/19 DC 03/31/19 HCl (Zofran IV 06:40 07:27 Inj) 03/31/19 06:42 Famotidine 20 mg ONCE ONCE 03/31/19 DC 03/31/19 (Pepcid Iv) IV 07:00 07:27 03/31/19 07:01 Lorazepam 0.5 mg ONCE ONCE 03/31/19 DC 03/31/19 (Ativan) IV 10:30 10:17 03/31/19 10:31 Procedures/MDM The patient presented to the emergency department with epigastric pain. My differential diagnosis included but was not limited to abdominal aortic aneurysm, choledocholithiasis, gallstone ileus, renal colic, pyelonephritis, pancreatitis, peptic ulcer disease, atypical myocardical infarction, mesenteric ischemia, GERD, pulmonary infarction. The patient was placed on a sample cutter, continuous pulse oximetry and IV access was established by nursing staff. The patient required a midline due to poor peripheral vascular access. The patient was given IV Pepcid Zofran as well as Ativan for mild alcohol withdrawal. An EKG was obtained to rule out myocardial ischemia. There was no elevation of LFTs to suggest ductal obstruction, cholangitis, cholecystiitis or hepatitis. G iven that the urinalysis did not show bilirubinuria, my suspicion for common duct obstruction or hepatitis was low. 12 Lead EKG tracing ordered and reviewed by myself showed: Sinus tachycardia 110 bpm and no arrhythmia. W[place] interval normal. QRS duration normal. No ST segment elevation No ST segment depression. No changes consistent with acute ischemia. Observation Note: Time: 4 hours Family Hx: No Hypertension Evaluation: Multiple exams showed improving symptoms and no evidence of impending delirium tremors. The patient did have an elevation of his BUN and creatinine. Today the patient's BUN was 61 and creatinine was 1.46. On March 14 roughly 3 weeks ago the patient's BUN was 24 creatinine was 1.73. The patient had improvement of symptoms and stated that he felt comfortable being discharged home. He was no longer tachycardic. He did receive intravenous Ativan for suspected alcohol withdrawal. Departure Diagnosis: Primary Impression: Alcohol withdrawal Complication of substance-induced condition: uncomplicated Qualified Codes: F10.230 - Alcohol dependence with withdrawal, uncomplicated Additional Impression: Acute prerenal azotemia Condition: LIZETT Calloway MD Mar 31, 2019 07:34
[2019-03-31] MEDS: LORAZEPAM 2 MG INJ IV PRN (20:40)
[2019-04-01 00:30] VITALS: Ht 182.9 cm; Wt 97.6 kg
[2019-04-01 01:30] VITALS: BP 144/69; PULSE 109; RESP 20
[2019-04-01] MEDS ORDERED: ONDANSETRON 4 MG INJ IV PRN (01:30)
[2019-04-01] MEDS: LORAZEPAM 2 MG INJ IV PRN ×3 (02:39→17:59)
[2019-04-01] MEDS ORDERED: (Nursing Note) XX SCH (07:30)
[2019-04-01 07:56] VITALS: BP 147/62; PULSE 97; RESP 19
[2019-04-01] MEDS: HYDROmorphONE 1 MG/ML SYG IV PRN ×3 (09:12→21:56)
--- NOTE | 2019-04-01 14:14 | HP ---
Date/Time of Note Date/Time of Note DATE: 04/01/19 TIME: 14:13 Assessment/Plan VTE Prophylaxis Risk score (from Ns)>0 risk: 4 SCD applied (from [facility] [place]): Yes Pharmacological prophylaxis: NA/contraindicated Pharm contraindication: bleeding Lines/Catheters IV C[facility]ter Type (from [facility] Mid Line Central line still needed: Yes Urinary Cath still in place: No Assessment/Plan Assessment/Plan -Alcohol withdrawal, continue IV fluids banana bag, Ativan as needed. -Abdominal pain with reported hematemesis and hematochezia. Dr. Mayes is asked to see patient in gastroenterology consultation. -Acute kidney injury on chronic kidney disease. -Chronic diastolic congestive heart failure. Continue Bumex and Aldactone. -COPD, continue bronchodilators. -Anemia. -Hypothyroidism, continue levothyroxine -Alcoholic liver cirrhosis -Nicotine dependence, continue nicotine patch, cessation is strongly advised. -Ongoing alcohol use, cessation is strongly advised. -Poor medical compliance. Further recommendations based on clinical course. Plan of care discussed with Dr. Lara. Result Diagram: 04/01/19 1040 04/01/19 1040 Results 24hrs Laboratory Tests Test 04/01/19 10:40 White Blood Count 10.5 Red Blood Count 3.23 L Hemoglobin 7.6 L Hematocrit 25.2 L Mean Corpuscular Volume 78.0 L Mean Corpuscular Hemoglobin 23.5 L Mean Corpuscular Hemoglobin Concent 30.2 L Red Cell Distribution Width 23.7 H Platelet Count 80 L Mean Platelet Volume Immature Granulocytes % 1.500 H Neutrophils % 67.0 Lymphocytes % 10.6 L Monocytes % 16.1 H Eosinophils % 2.3 Basophils % 2.5 H Nucleated Red Blood Cells % 0.0 Immature Granulocytes # 0.160 H Neutrophils # 7.0 Lymphocytes # 1.1 Monocytes # 1.7 H Eosinophils # 0.2 Basophils # 0.3 H Nucleated Red Blood Cells # 0.0 Sodium Level 140 Potassium Level 4.0 Chloride Level 106 Carbon Dioxide Level 27 Anion Gap 7 Blood Urea Nitrogen 51 H Creatinine 1.57 H Est Glomerular Filtrat Rate mL/min 45 L Glucose Level 110 Calcium Level 8.2 L HPI/ROS Admit Date/Time Admit Date/Time Mar 31, 2019 at 18:06 Hx of Present Illness Patient is a 63-year-old male with history of congestive heart failure, hypertension, alcoholic liver cirrhosis, COPD, hypothyroidism, tobacco dependence and ongoing alcohol use as well as poor medical compliance presented to the emergency room with complaints of abdominal pain which been going on for 3 days. Patient that he had an episode of hematemesis as well as bright red blood in his stool yesterday. The patient indicates his last consumption of alcohol was roughly 12 hours prior to arrival. Patient denies any shortness of breath, denies any fever, chills, denies headache, denies chest pressure. ROS 12 point review of system is negative except for that mentioned in HPI PMH/Family/Social Past Medical History Medical History: congestive heart failure, hyperthyroid, hypothyroid, other (Liver cirrhosis, COPD) Medications Current Medications Lorazepam (Ativan) 1 mg Q6H PRN IV AGITATION/ANXIETY Last administered on 04/01/19at 09:02; Admin Dose 1 MG; Start 03/31/19 at 18:30 Hydromorphone HCl (Dilaudid) 1 mg Q4H PRN IV SEVERE PAIN LEVEL 7-10 Last administered on 04/01/19at 09:12; Admin Dose 1 MG; Start 04/01/19 at 01:30 Ondansetron HCl (Zofran Inj) 4 mg Q6H PRN IV NAUSEA AND/OR VOMITING; Start 04/01/19 at 01:30 Miscellaneous Information 1 ea NOTE XX ; Start 04/01/19 at 07:30 Coded Allergies: Penicillins (Unverified Allergy, Unknown, 03/31/19) Patient strongly denies being allegic to PCN. He states, "I took that damn allergy band off. I'm not allergic to penicillen!" Past Surgical History Past Surgical Hx: other (Status post left foot necrotic ulcer I&D by Dr. No on September 2018, status post abdominal surgery details are not available) Family History Significant Family History: no pertinent family hx Social History Alcohol Use: heavy Smoking Status: Current every day smoker Drug Use: none Exam/Review of Systems Vital Signs Vitals Vital Signs Date Temp Pulse Resp B/P (MAP) Pulse Ox O2 O2 Flow FiO2 Time Delivery Rate 04/01/19 98.7 97 19 147/62 94 07:56 (90) 04/01/19 Room Air 01:30 Intake and Output 03/31/19 03/31/19 04/01/19 1515:00 23:00 07:00 IntakeIntake Total 240 ml OutputOutput Total 400 ml BalanceBalance -160 ml Exam Constitutional: alert, oriented Head: normocephalic Neck: supple Respiratory: diminished breath sounds Cardiovascular: nl pulses Gastrointestinal: soft, tender Musculoskeletal: nl extremities to inspection Extremities: edema Neurological: nl mental status Skin: nl MILLICENT Narayanan Apr 01, 2019 14:14
[2019-04-01 15:30] VITALS: BP 144/65; PULSE 94; RESP 18
[2019-04-01] MEDS ORDERED: LORAZEPAM 1 MG TAB PO PRN (17:30)
[2019-04-01] MEDS: SPIRONOLACTONE 25 MG TAB PO SCH (17:53)
[2019-04-01] MEDS: BUMETANIDE 1 MG TAB PO SCH (18:59)
[2019-04-01 19:35] VITALS: BP 136/61; PULSE 99; RESP 18
[2019-04-01] MEDS: LUBIPROSTONE 24 MCG CAP PO SCH (21:56)
[2019-04-01] MEDS: DOCUSATE SODIUM 100 MG CAP PO SCH (21:56)
--- NOTE | 2019-04-02 01:03 | CONS ---
DATE OF ADMISSION: 03/31/2019 DATE OF CONSULTATION: Thank you again for asking me to evaluate your patient. HISTORY OF PRESENT ILLNESS: The patient is a 63-year-old male known to me from previous [facility] with a history of ethanol abuse. He started drinking for the last 1 week without eating his food and hematemesis and developed epigastric pain so came to the emergency room. The patient denies of melena. No chest pain. No shortness of breath. 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 He is known to have a cirrho sis of liver secondary to ethanol abuse. He also has a history of COPD, hypothyroidism, nicotine usa ge. PAST MEDICAL HISTORY: As described, history of CHF, hypothyroidism, cirrhosis of liver and COPD. MEDICATIONS: Reviewed. REVIEW OF SYSTEMS: Otherwise negative. ALLERGY: ALLERGIC TO PENICILLIN. PHYSICAL EXAMINATION: GENERAL: Well built, nourished, not in distress. VITAL SIGNS: Stable. HEENT: Unremarkable. NECK: Supple. No thyromegaly. No lymphadenopathy. CARDIOVASCULAR SYSTEM: No murmur, gallop or click. LUNGS: Clear. ABDOMEN: Benign except for tenderness in the epigastric area. Bowel sounds good. No mass felt per abdomen. EXTREMITIES: No edema. CENTRAL NERVOUS SYSTEM: Grossly within normal limit. LABORATORY DATA: His hematocrit was 29, dropped down to 25. Platelet count is 80,000 which is good for him. His creatinine is 1.47, BUN is 51. BNP is mildly elevated. LFTs: Total bilirubin and alk narciso phosphatase normal. INR is 1.2. IMPRESSION: 1. Upper gastrointestinal bleeding. 2. Chronic obstructive pulmonary disease. 3. Cirrhosis of liver. 4. Alcohol abuse. 5. Nicotine usage. 6. Thrombocytopenia. 7. Epigastric pain. 8. Hypothyroidism. PLAN: Plan at this point is to continue PPI. The patient refused endoscopy. Thiamine to prevent We rnicke encephalopathy and monitor H and H. Whenever the patient agrees, we will proceed with EGD to look for esophageal varicose vein or the cause of upper GI bleeding. Dictated By: CHLOÉ TEJEDA/NILDA Conf#: [id number] DID#: [id number] CC: MILLICENT GOVEA NP; KOKO MARLOW MD;*[facility]*
[2019-04-02 02:00] VITALS: BP 139/60; PULSE 98; RESP 18
[2019-04-02] MEDS: BUMETANIDE 1 MG TAB PO SCH ×2 (05:07→18:02)
[2019-04-02] MEDS ORDERED: PANTOPRAZOLE (EC) 40 MG TAB PO SCH (07:00)
[2019-04-02] MEDS ORDERED: LEVOTHYROXINE 100 MCG TAB PO SCH (07:00)
[2019-04-02 07:46] VITALS: BP 163/72; PULSE 98; RESP 19
[2019-04-02] MEDS ORDERED: ALLOPURINOL 100 MG TAB PO SCH (09:00)
[2019-04-02] MEDS ORDERED: METOPROLOL (XL) 50 MG TAB PO SCH (09:00)
[2019-04-02] MEDS ORDERED: MULTIVITAMINS 10 ML, THIAMINE 100 MG, FOLIC ACID 1 MG in SOD CHLORIDE 0.9% 1,000 ML IVPB SCH (09:00)
[2019-04-02] MEDS: HYDROmorphONE 1 MG/ML SYG IV PRN ×2 (10:13→14:32)
[2019-04-02] MEDS: LUBIPROSTONE 24 MCG CAP PO SCH ×2 (10:14→21:00)
[2019-04-02] MEDS: DOCUSATE SODIUM 100 MG CAP PO SCH ×2 (10:14→21:00)
[2019-04-02] MEDS: SPIRONOLACTONE 25 MG TAB PO SCH (10:15)
[2019-04-02] MEDS: LORAZEPAM 2 MG INJ IV PRN ×2 (11:12→18:07)
[2019-04-02 14:30] VITALS: BP 159/75; RESP 18
--- NOTE | 2019-04-02 18:00 | CONS ---
Assessment/Plan Assessment/Plan Assessment/Plan (Daily) IMPRESSION: 1. Upper gastrointestinal bleeding. 2. Chronic obstructive pulmonary disease. 3. Cirrhosis of liver. 4. Alcohol abuse. 5. Nicotine usage. 6. Thrombocytopenia. 7. Epigastric pain. 8. Hypothyroidism. Plan Continue PPI Patient declined EGD Will monitor for acute GI bleeding Consultation Date/Type/Reason Admit Date/Time Mar 31, 2019 at 18:06 Initial Consult Date Date/Time of Note DATE: 04/02/19 TIME: 17:59 24 HR Interval Summary Free Text/Dictation Stool is brown in color. No melena. Patient has a mild epigastric discomfort. He has a cough and had a minor hemoptysis Exam/Review of Systems Exam Vitals Vital Signs Date Temp Pulse Resp B/P (MAP) Pulse Ox O2 O2 Flow FiO2 Time Delivery Rate 04/02/19 97.8 18 159/75 94 14:30 (103) 04/02/19 98 07:46 04/01/19 Room Air 15:30 Intake and Output 04/01/19 04/01/19 04/02/19 1515:00 23:00 07:00 IntakeIntake Total 930 ml 760 ml 478 ml OutputOutput Total 800 ml 1550 ml BalanceBalance 930 ml -40 ml -1072 ml Constitutional: alert, oriented, well developed Psych: no complaints, nl mood/affect Head: normocephalic, atraumatic Eyes: nl conjunctiva, EOMI, nl lids, nl sclera, PERRL ENMT: nl external ears & nose, nl lips & teeth, nl nasal mucosa & septum Neck: supple, non-tender Respiratory: clear to auscultation, normal air movement Cardiovascular: regular rate and rhythm, nl pulses Gastrointestinal: soft, nl liver, spleen, non-tender Musculoskeletal: nl extremities to inspection, nl gait and stance Extremities: normal pulses Neurological: LAST PICKER II-XII intact, nl mental status, nl speech, nl strength Skin: nl turgor; No rash or lesions Lymph: nl lymph nodes Results Result Diagram: 04/02/191 04/02/191 Results 24hrs Laboratory Tests Test 04/02/19 04:41 White Blood Count 10.9 H Red Blood Count 3.46 L Hemoglobin 8.1 L Hematocrit 26.6 L Mean Corpuscular Volume 76.9 L Mean Corpuscular Hemoglobin 23.4 L Mean Corpuscular Hemoglobin Concent 30.5 L Red Cell Distribution Width 23.6 H Platelet Count 84 L Mean Platelet Volume Immature Granulocytes % 1.600 H Neutrophils % 70.0 Lymphocytes % 8.0 L Monocytes % 15.7 H Eosinophils % 2.2 Basophils % 2.5 H Nucleated Red Blood Cells % 0.0 Immature Granulocytes # 0.170 H Neutrophils # 7.6 H Lymphocytes # 0.9 Monocytes # 1.7 H Eosinophils # 0.2 Basophils # 0.3 H Nucleated Red Blood Cells # 0.0 Sodium Level 141 Potassium Level 3.8 Chloride Level 105 Carbon Dioxide Level 27 Anion Gap 9 Blood Urea Nitrogen 42 H Creatinine 1.56 H Est Glomerular Filtrat Rate mL/min 45 L Glucose Level 95 Calcium Level 8.6 Medications Medication Current Medications Lorazepam (Ativan) 1 mg Q6H PRN IV AGITATION/ANXIETY Last administered on 04/02/19at 11:12; Admin Dose 1 MG; Start 03/31/19 at 18:30 Hydromorphone HCl (Dilaudid) 1 mg Q4H PRN IV SEVERE PAIN LEVEL 7-10 Last administered on 04/02/19at 14:32; Admin Dose 1 MG; Start 04/01/19 at 01:30 Ondansetron HCl (Zofran Inj) 4 mg Q6H PRN IV NAUSEA AND/OR VOMITING; Start 03/08 03/25 at 01:30 Miscellaneous Information 1 ea NOTE XX ; Start 04/01/19 at 07:30 Multivitamins 10 ml/Thiamine HCl 100 mg/Folic Acid 1 mg/Sodium Chloride 1,011.2 ml @ 60 mls/hr DAILY@09 IVPB Last administered on 04/02/19at 10:09; Admin Dose 60 MLS/HR; Start 04/02/19 at 09:00 Allopurinol (Zyloprim) 100 mg DAILY PO Last administered on 04/02/19at 10:15; Admin Dose 100 MG; Start 04/02/19 at 09:00 Docusate Sodium (Colace) 100 mg BID PO Last administered on 04/02/19at 10:14; Admin Dose 100 MG; Start 04/01/19 at 21:00 Hydralazine HCl (Apresoline) 25 mg Q8 PRN PO SBP ABOVE 170; Start 04/01/19 at 17:30 Levothyroxine Sodium (Synthroid) 200 mcg BEFORE BREAKFAST PO Last administered on 04/02/19 06:10; Admin Dose 200 MCG; Start 04/02/19 at 07:00 Lorazepam (Ativan) 1 mg HS PRN PO ANXIETY; Start 04/01/19 at 17:30 Lubiprostone (Amitiza) 24 mcg BID PO Last administered on 04/02/19at 10:14; Admin Dose 24 MCG; Start 04/01/19 at 21:00 Metoprolol Succinate (Toprol Xl) 50 mg DAILY PO Last administered on 04/02/19at 10:13; Admin Dose 50 MG; Start 04/02/19 at 09:00 Pantoprazole (Protonix Tab) 40 mg AC BREAKFAST PO Last administered on 04/02/19at 06:10; Admin Dose 40 MG; Start 04/02/19 at 07:00 Spironolactone (Aldactone) 25 mg DAILY PO Last administered on 04/02/19at 10:15; Admin Dose 25 MG; Start 04/01/19 at 17:30 Bumetanide (Bumex) 1 mg BID@06,18 PO Last administered on 04/02/19at 05:07; Admin Dose 1 MG; Start 04/01/19 at 18:30 CHLOÉ TORRE MD Apr 02, 2019 18:00
[2019-04-02 20:07] VITALS: BP 140/71; PULSE 79; RESP 18
--- NOTE | 2019-04-02 21:19 | PN ---
Date/Time of Note Date/Time of Note DATE: 04/02/19 TIME: pt is seen at 19:00 Assessment/Plan VTE Prophylaxis Risk score (from Ns)>0 risk: 5 SCD applied (from Ns): Yes Pharmacological prophylaxis: NA/contraindicated Pharm contraindication: thrombocytopenia Lines[facility] Cath still in place: No Assessment/Plan Hospital Course Pt refused endoscopy, no hematemesis, pt tolerated diet without nausea per RN, Heavenly, pt complains of generalized pain. Assessment/Plan -Alcohol withdrawal, continue IV fluids banana bag, Ativan as needed. -Abdominal pain with reported hematemesis and hematochezia. Pt refused upper endoscopy. Dr. Mayes is following in gastroenterology consultation. -Acute kidney injury on chronic kidney disease. -Chronic diastolic congestive heart failure. Continue Bumex and Aldactone. -COPD, continue bronchodilators. -Anemia. -Hypothyroidism, continue levothyroxine -Alcoholic liver cirrhosis -Nicotine dependence, continue nicotine patch, cessation is strongly advised. -Ongoing alcohol use, cessation is strongly advised. -Poor medical compliance. Further recommendations based on clinical course. Plan of care discussed with Dr. Lara. Result Diagram: 04/02/19 0441 04/02/19 0441 Results 24hrs Laboratory Tests Test 04/02/19 04:41 White Blood Count 10.9 H Red Blood Count 3.46 L Hemoglobin 8.1 L Hematocrit 26.6 L Mean Corpuscular Volume 76.9 L Mean Corpuscular Hemoglobin 23.4 L Mean Corpuscular Hemoglobin Concent 30.5 L Red Cell Distribution Width 23.6 H Platelet Count 84 L Mean Platelet Volume Immature Granulocytes % 1.600 H Neutrophils % 70.0 Lymphocytes % 8.0 L Monocytes % 15.7 H Eosinophils % 2.2 Basophils % 2.5 H Nucleated Red Blood Cells % 0.0 Immature Granulocytes # 0.170 H Neutrophils # 7.6 H Lymphocytes # 0.9 Monocytes # 1.7 H Eosinophils # 0.2 Basophils # 0.3 H Nucleated Red Blood Cells # 0.0 Sodium Level 141 Potassium Level 3.8 Chloride Level 105 Carbon Dioxide Level 27 Anion Gap 9 Blood Urea Nitrogen 42 H Creatinine 1.56 H Est Glomerular Filtrat Rate mL/min 45 L Glucose Level 95 Calcium Level 8.6 Exam/Review of Systems Exam Vitals Vital Signs Date Temp Pulse Resp B/P (MAP) Pulse Ox O2 O2 Flow FiO2 Time Delivery Rate 04/02/19 97.5 79 18 140/71 98 20:07 (94) 04/01/19 Room Air 15:30 Intake and Output 04/01/19 04/01/19 04/02/19 1515:00 23:00 07:00 IntakeIntake Total 930 ml 760 ml 478 ml OutputOutput Total 800 ml 1550 ml BalanceBalance 930 ml -40 ml -1072 ml Exam Constitutional: alert, oriented Respiratory: diminished breath sounds Cardiovascular: nl pulses Gastrointestinal: soft, tender Musculoskeletal: nl extremities to inspection Extremities: edema Neurological: nl mental status Skin: nl turgor Results Results 24hrs Laboratory Tests Test 04/02/19 04:41 White Blood Count 10.9 H Red Blood Count 3.46 L Hemoglobin 8.1 L Hematocrit 26.6 L Mean Corpuscular Volume 76.9 L Mean Corpuscular Hemoglobin 23.4 L Mean Corpuscular Hemoglobin Concent 30.5 L Red Cell Distribution Width 23.6 H Platelet Count 84 L Mean Platelet Volume Immature Granulocytes % 1.600 H Neutrophils % 70.0 Lymphocytes % 8.0 L Monocytes % 15.7 H Eosinophils % 2.2 Basophils % 2.5 H Nucleated Red Blood Cells % 0.0 Immature Granulocytes # 0.170 H Neutrophils # 7.6 H Lymphocytes # 0.9 Monocytes # 1.7 H Eosinophils # 0.2 Basophils # 0.3 H Nucleated Red Blood Cells # 0.0 Sodium Level 141 Potassium Level 3.8 Chloride Level 105 Carbon Dioxide Level 27 Anion Gap 9 Blood Urea Nitrogen 42 H Creatinine 1.56 H Est Glomerular Filtrat Rate mL/min 45 L Glucose Level 95 Calcium Level 8.6 Medications Medication Current Medications Lorazepam (Ativan) 1 mg Q6H PRN IV AGITATION/ANXIETY Last administered on 04/02/19at 18:07; Admin Dose 1 MG; Start 03/31/19 at 18:30 Hydromorphone HCl (Dilaudid) 1 mg Q4H PRN IV SEVERE PAIN LEVEL 7-10 Last administered on 04/02/19at 14:32; Admin Dose 1 MG; Start 04/01/19 at 01:30 Ondansetron HCl (Zofran Inj) 4 mg Q6H PRN IV NAUSEA AND/OR VOMITING; Start 04/01/19 at 01:30 Miscellaneous Information 1 ea NOTE XX ; Start 04/01/19 at 07:30 Multivitamins 10 ml/Thiamine HCl 100 mg/Folic Acid 1 mg/Sodium Chloride 1,011.2 ml @ 60 mls/hr DAILY@09 IVPB Last administered on 04/02/19 10:09; Admin Dose 60 MLS/HR; Start 04/02/19 at 09:00 Allopurinol (Zyloprim) 100 mg DAILY PO Last administered on 04/02/19 10:15; Admin Dose 100 MG; Start 04/02/19 at 09:00 Docusate Sodium (Colace) 100 mg BID PO Last administered on 04/02/19 10:14; Admin Dose 100 MG; Start 04/01/19 at 21:00 Hydralazine HCl (Apresoline) 25 mg Q8 PRN PO SBP ABOVE 170; Start 04/01/19 at 17:30 Levothyroxine Sodium (Synthroid) 200 mcg BEFORE BREAKFAST PO Last administered on 04/02/19 06:10; Admin Dose 200 MCG; Start 04/02/19 at 07:00 Lorazepam (Ativan) 1 mg HS PRN PO ANXIETY; Start 04/01/19 at 17:30 Lubiprostone (Amitiza) 24 mcg BID PO Last administered on 04/02/19 10:14; Admin Dose 24 MCG; Start 04/01/19 at 21:00 Metoprolol Succinate (Toprol Xl) 50 mg DAILY PO Last administered on 04/02/19 10:13; Admin Dose 50 MG; Start 04/02/19 at 09:00 Pantoprazole (Protonix Tab) 40 mg AC BREAKFAST PO Last administered on 04/02/19 06:10; Admin Dose 40 MG; Start 04/02/19 at 07:00 Spironolactone (Aldactone) 25 mg DAILY PO Last administered on 04/02/19 10:15; Admin Dose 25 MG; Start 04/01/19 at 17:30 Bumetanide (Bumex) 1 mg BID@06,18 PO Last administered on 04/02/19 18:02; Admin Dose 1 MG; Start 04/01/19 at 18:30 MILLICENT GOVEA Apr 02, 2019 21:19
--- NOTE | 2019-04-03 02:12 | DS ---
Date/Time of Note Date/Time of Note DATE: 04/03/19 TIME: 02:11 Discharge Summary Admission/Discharge Info Admit Date/Time Mar 31, 2019 at 18:06 Discharge Date/Time Apr 02, 2019 at 22:20 Hx of Present Illness Patient is a 63-year-old male with history of congestive heart failure, hypertension, alcoholic liver cirrhosis, COPD, hypothyroidism, tobacco dependence and ongoing alcohol use as well as poor medical compliance presented to the emergency room with complaints of abdominal pain which been going on for 3 days. Patient that he had an episode of hematemesis as well as bright red blood in his stool yesterday. The patient indicates his last consumption of alcohol was roughly 12 hours prior to arrival. Patient denies any shortness of breath, denies any fever, chills, denies headache, denies chest pressure. Hospital Course Patient left AMA -Alcohol withdrawal, continue IV fluids banana bag, Ativan as needed. -Abdominal pain with reported hematemesis and hematochezia. Pt refused upper endoscopy. Dr. Mayes is following in gastroenterology consultation. -Acute kidney injury on chronic kidney disease. -Chronic diastolic congestive heart failure. Continue Bumex and Aldactone. -COPD, continue bronchodilators. -Anemia. -Hypothyroidism, continue levothyroxine -Alcoholic liver cirrhosis -Nicotine dependence, continue nicotine patch, cessation is strongly advised. -Ongoing alcohol use, cessation is strongly advised. -Poor medical compliance. Plan of care discussed with Dr. Lara. Home Meds Reported Medications Lubiprostone* (Amitiza*) 24 Mcg Capsule, 24 MCG PO BID, #60 CAP 03/12/19 Oxycodone Hcl* (Oxycontin*) 10 Mg Tab.sr.12h, 10 MG PO NEEDED, TAB 03/12/19 Spironolactone* (Aldactone*) 25 Mg Tablet, 25 MG PO DAILY, #30 TAB 03/12/19 Pantoprazole* (Pantoprazole*) 40 Mg Tablet., 40 MG PO AC BREAKFAST, TAB 03/12/19 Levothyroxine Sodium* (Levothyroxine Sodium*) 200 Mcg Tablet, 200 MCG PO BEFORE BREAKFAST, #30 TAB 03/12/19 Docusate Sodium* (Colace*) 100 Mg Capsule, 100 MG PO BID, #60 CAP 03/12/19 Lorazepam* (Lorazepam*) 1 Mg Tablet, 1 MG PO HS PRN for NEEDED, #30 TAB 03/12/19 Albuterol Sulfate* (Ventolin HFA*) 18 Gm Hfa.aer.ad, 2 PUFF INHALATION Q4H, #1 INHALER 03/12/19 Metoprolol Succinate* (Toprol XL*) 50 Mg Tab.er.24h, 50 MG PO DAILY, #30 TAB 03/12/19 Bumetanide* (Bumetanide*) 2 Mg Tablet, 2 MG PO BID, TAB 03/12/19 Allopurinol* (Allopurinol*) 100 Mg Tablet, 100 MG PO DAILY, TAB 03/12/19 Folic Acid* (Folic Acid*) 1 Mg Tablet, 1 MG PO DAILY, TAB 03/12/19 Hydralazine Hcl* (Hydralazine Hcl*) 25 Mg Tab, 25 MG PO Q8 PRN for PRN, #90 TAB 03/12/19 Acetaminophen* (Acetaminophen*) 500 MG Extra Strength Tablet, 500 MG PO Q4H PRN for MILD PAIN LEVEL 1-3, TAB 01/11/19 Discontinued Scripts Albuterol Sulfate* (Ventolin HFA*) 18 Gm Hfa.aer.ad, 2 PUFF INHALATION Q4H, #1 INHALER Prov:VENKATESH KENYON MD 03/26/19 Primary Care Provider Brandon Lara MD Pending Labs Laboratory Tests Test 04/02/19 04:41 White Blood Count 10.9 10^3/ul (4.8-10.8) Red Blood Count 3.46 10^6/ul (4.70-6.10) Hemoglobin 8.1 g/dl (14.0-18.0) Hematocrit 26.6 % (42.0-52.0) Mean Corpuscular Volume 76.9 fl (82.0-101.0) Mean Corpuscular Hemoglobin 23.4 pg (29.0-33.0) Mean Corpuscular Hemoglobin Concent 30.5 g/dl (32.0-37.0) Red Cell Distribution Width 23.6 % (11.5-14.5) Platelet Count 84 10^3/UL (140-415) Mean Platelet Volume fl (7.4-10.4) Immature Granulocytes % 1.600 % (0.001-0.429) Neutrophils % 70.0 % (39.0-77.0) Lymphocytes % 8.0 % (15.0-51.0) Monocytes % 15.7 % (0.0-11.0) Eosinophils % 2.2 % (0.0-7.0) Basophils % 2.5 % (0.0-2.0) Nucleated Red Blood Cells % 0.0 /100WBC (0.0-0.0) Immature Granulocytes # 0.170 10^3/ul (0.0-0.031) Neutrophils # 7.6 10^3/ul (1.6-7.5) Lymphocytes # 0.9 10^3/ul (0.8-2.9) Monocytes # 1.7 10^3/ul (0.3-0.9) Eosinophils # 0.2 10^3/ul (0.0-0.5) Basophils # 0.3 10^3/ul (0.0-0.1) Nucleated Red Blood Cells # 0.0 10^3/ul (0.0-0.0) Sodium Level 141 mmol/L (135-144) Potassium Level 3.8 mmol/L (3.5-5.1) Chloride Level 105 mmol/L (97-110) Carbon Dioxide Level 27 mmol/L (21-31) Anion Gap 9 (5-13) Blood Urea Nitrogen 42 mg/dl (7-20) Creatinine 1.56 mg/dl (0.61-1.24) Est Glomerular Filtrat Rate mL/min 45 mL/min (>60) Glucose Level 95 mg/dl (70-220) Calcium Level 8.6 mg/dl (8.4-10.2) MILLICENT GOVEA Apr 03, 2019 02:12
== END 2019-04-02 22:20 | disposition left against medical advice (07) | DRG 894 ==
LOC: E/R 05:54 → 2NE 18:06
PROVIDERS: ADMIT Internal Medicine; ATTEND Internal Medicine
DX: F10.239 Alcohol dependence with withdrawal, unspecified (principal); I13.0 Hypertensive heart and chronic kidney disease with heart failure and stage 1 through stage 4 chronic kidney disease, or unspecified chronic kidney disease; I50.32 Chronic diastolic (congestive) heart failure; N17.9 Acute kidney failure, unspecified; K92.2 Gastrointestinal hemorrhage, unspecified; K70.30 Alcoholic cirrhosis of liver without ascites; Y90.3 Blood alcohol level of 60-79 mg/100 ml; F17.210 Nicotine dependence, cigarettes, uncomplicated; N18.9 Chronic kidney disease, unspecified; E03.9 Hypothyroidism, unspecified; F10.10 Alcohol abuse, uncomplicated; J44.9 Chronic obstructive pulmonary disease, unspecified; D64.9 Anemia, unspecified; Z91.19 Patient's noncompliance with other medical treatment and regimen
CPT/HCPCS: 80048; 80053; 80307; 82150; 83690; 83880; 84484; 85025; 85610; 85730; 87081; 93005; 96374; 96375; 96376; J1170; J2060; J2405; J3411; J7030

== ENCOUNTER 2019-04-25 08:55 | Inpatient (IN) | payer BC ==
[~2019-04-25] VITALS: Ht 182.9 cm; Wt 102.0 kg
[2019-04-25] MEDS ORDERED: ALBUTEROL 0.083% (NEB) 2.5 MG/3 ML AMP INH STA (11:37)
[2019-04-25] MEDS ORDERED: AZITHROMYCIN 500MG/NS (PMX) 250 ML IV STA (11:37)
[2019-04-25] MEDS ORDERED: IPRATROPIUM (NEB) 0.5 MG/2.5 ML AMP INH STA (11:37)
--- NOTE | 2019-04-25 11:58 | ERD ---
ER Documentation Chief Complaint Chief Complaint C/O GENERALIZED BODYACHES, ABD PAIN, UNABLE TO WALK HPI Patient is a 63-year-old male with history of congestive heart failure, hypertension, alcoholic liver cirrhosis, COPD, hypothyroidism, tobacco dependence and ongoing alcohol use presents for generalized body aches. Patient has a history of multiple visits to the ED, and he has been in withdrawal before. Reportedly has history of medication noncompliance, today he does states that he feels generally unwell. Denies fever, he does endorse shortness of breath. ROS All systems reviewed and are negative except as per history of present illness. Medications Home Meds Reported Medications Oxycodone Hcl* (Oxycontin*) 10 Mg Tab.sr.12h, 10 MG PO TID PRN for PAIN, TAB 04/25/19 Lubiprostone* (Amitiza*) 24 Mcg Capsule, 24 MCG PO BID, #60 CAP 03/12/19 Spironolactone* (Aldactone*) 25 Mg Tablet, 25 MG PO DAILY, #30 TAB 03/12/19 Pantoprazole* (Pantoprazole*) 40 Mg Tablet.dr, 40 MG PO AC BREAKFAST, TAB 03/12/19 Levothyroxine Sodium* (Levothyroxine Sodium*) 200 Mcg Tablet, 200 MCG PO BEFORE BREAKFAST, #30 TAB 03/12/19 Docusate Sodium* (Colace*) 100 Mg Capsule, 100 MG PO BID, #60 CAP 03/12/19 Lorazepam* (Lorazepam*) 1 Mg Tablet, 1 MG PO HS PRN for NEEDED, #30 TAB 03/12/19 Albuterol Sulfate* (Ventolin HFA*) 18 Gm Hfa.aer.ad, 2 PUFF INHALATION Q4H, #1 INHALER 03/12/19 Metoprolol Succinate* (Toprol XL*) 50 Mg Tab.er.24h, 50 MG PO DAILY, #30 TAB 03/12/19 Bumetanide* (Bumetanide*) 2 Mg Tablet, 2 MG PO BID, TAB 03/12/19 Allopurinol* (Allopurinol*) 100 Mg Tablet, 100 MG PO DAILY, TAB 03/12/19 Folic Acid* (Folic Acid*) 1 Mg Tablet, 1 MG PO DAILY, TAB 03/12/19 Hydralazine Hcl* (Hydralazine Hcl*) 25 Mg Tab, 25 MG PO Q8 PRN for PRN, #90 TAB 03/12/19 Acetaminophen* (Acetaminophen*) 500 MG Extra Strength Tablet, 500 MG PO Q4H PRN for MILD PAIN LEVEL 1-3, TAB 01/11/19 Discontinued Reported Medications Oxycodone Hcl* (Oxycontin*) 10 Mg Tab.sr.12h, 10 MG PO NEEDED, TAB 03/12/19 Allergies Allergies: Coded Allergies: Penicillins (Unverified Allergy, Unknown, 04/25/19) Patient strongly denies being allegic to PCN. He states, "I took that damn allergy band off. I'm not allergic to penicillen!" PMhx/Soc History of Surgery: Yes (LEFT FOOT SURGERY ( PLANTAR ASPECT ), ABDOMINAL SURGERY ) Anesthesia Reaction: No Hx Neurological Disorder: No Hx Respiratory Disorders: Yes (COPD , BRONCHITIS ) Hx Cardiac Disorders: Yes (HTN , CHF ) Hx Psychiatric Problems: Yes (DEPRESSION) Hx Miscellaneous Medical Probl: Yes (esrd w/hemo dialysis) Hx Alcohol Use: Yes Hx Substance Use: Yes (METH, COCAINE , HEROIN ) Hx Tobacco Use: Yes Smoking Status: Current every day smoker Physical Exam Vitals Vital Signs Date Temp Pulse Resp B/P (MAP) Pulse Ox O2 O2 Flow FiO2 Time Delivery Rate 04/25/19 Nasal 2 09:48 Cannula 04/25/19 97.6 94 16 116/50 97 09:09 (72) Physical Exam Const: Disheveled appearing, smells of EtOH Head: Atraumatic Eyes: Normal Conjunctiva ENT: Normal External Ears, Nose and Mouth. Neck: Full range of motion. No meningismus. Resp: Expiratory wheezing noted bilaterally Cardio: Regular rate and rhythm, no murmurs Abd: Soft, non tender, non distended. Normal bowel sounds Skin: No petechiae or rashes Back: No midline or flank tenderness Ext: No cyanosis, or edema Neur: Awake and alert Psych: Normal Mood and Affect Result Diagram: 04/25/19 1006 04/25/19 1006 Results 24 hrs Laboratory Tests Test 04/25/19 10:06 White Blood Count 13.9 10^3/ul Red Blood Count 3.38 10^6/ul Hemoglobin 8.0 g/dl Hematocrit 27.0 % Mean Corpuscular Volume 79.9 fl Mean Corpuscular Hemoglobin 23.7 pg Mean Corpuscular Hemoglobin Concent 29.6 g/dl Red Cell Distribution Width 22.2 % Platelet Count 127 10^3/UL Mean Platelet Volume fl Immature Granulocytes % 0.900 % Neutrophils % 71.4 % Lymphocytes % 8.6 % Monocytes % 14.2 % Eosinophils % 2.4 % Basophils % 2.5 % Nucleated Red Blood Cells % 0.0 /100WBC Immature Granulocytes # 0.130 10^3/ul Neutrophils # 9.9 10^3/ul Lymphocytes # 1.2 10^3/ul Monocytes # 2.0 10^3/ul Eosinophils # 0.3 10^3/ul Basophils # 0.4 10^3/ul Nucleated Red Blood Cells # 0.0 10^3/ul Prothrombin Time 14.2 Sec Prothrombin Time Ratio 1.1 INR International Normalized Ratio 1.09 Sodium Level 140 mmol/L Potassium Level 3.7 mmol/L Chloride Level 106 mmol/L Carbon Dioxide Level 22 mmol/L Anion Gap 12 Blood Urea Nitrogen 43 mg/dl Creatinine 1.64 mg/dl Est Glomerular Filtrat Rate mL/min 43 mL/min Glucose Level 131 mg/dl Calcium Level 7.8 mg/dl Total Bilirubin 0.4 mg/dl Direct Bilirubin 0.00 mg/dl Indirect Bilirubin 0.4 mg/dl Aspartate Amino Transf (AST/SGOT) 43 IU/L Alanine Aminotransferase (ALT/SGPT) 22 IU/L Alkaline Phosphatase 130 IU/L Troponin I < 0.012 ng/ml B-Type Natriuretic Peptide 135 PG/ML Total Protein 6.1 g/dl Albumin 3.1 g/dl Globulin 3.00 g/dl Albumin/Globulin Ratio 1.03 Current Medications Medications Dose Sig/Trevor Start Time Status Last (Trade) Ordered Route PRN Stop Time Admin Dose Reason Admin Albuterol 5 mg ONCE STAT 04/25/19 DC (Proventil [facility] 11:37 0.083% (Neb)) 04/25/19 11:39 Ipratropium 0.5 mg ONCE STAT 04/25/19 DC [place] [facility] 11:37 (Atrovent 04/25/19 11:39 0.02% (Neb)) Azithromycin 250 ml @ ONCE STAT 04/25/19 250 mls/hr IV 11:37 04/25/19 12:36 Procedures/MDM 63-year-old male presents for generalized malaise. On exam, the patient states appears to be mildly intoxicated with alcohol, he was on a nasal cannula at 2 L, with an oxygen saturation between 90-92 I suspect is most likely secondary to COPD exacerbation. His cardiac work-up was unremarkable, I have a lower suspicion for pulmonary embolism. Given his hypoxia, he will require admission. He was given azithromycin in the setting of a history of COPD, he has no evidence of severe sepsis or septic shock. His WBC count was elevated, however review of past records shows that it appears to be chronically elevated. He has no evidence of sepsis, severe sepsis or septic shock. EKG: Rate/Rhythm: Normal Sinus Rhythm QRS, ST, T-waves: No changes consistent w/ acute ischemia Impression: No evidence of ischemia or arrhythmia Accepting Care Team: Current data and ongoing care discussed. Primary: Jane Consulting: none Outstanding Data: none Departure Diagnosis: Primary Impression: Multiple complaints Additional Impressions: Hypoxia Alcohol abuse Condition: Serious TURPINREBECA MD Apr 25, 2019 11:58
[2019-04-25] MEDS ORDERED: METHYLPREDNISOLONE 125 MG INJ IV STA (12:04)
[2019-04-25] MEDS ORDERED: ONDANSETRON (ODT) 4 MG TAB ODT STA (12:19)
[2019-04-25] MEDS ORDERED: ACETAMINOPHEN 325 MG TAB PO PRN (12:30)
[2019-04-25] MEDS ORDERED: ONDANSETRON 4 MG INJ IV PRN (12:30)
[2019-04-25] MEDS: LORAZEPAM 2 MG INJ IV PRN ×2 (13:39→22:34)
[2019-04-25 15:15] VITALS: BP 122/59; PULSE 98; RESP 19
--- NOTE | 2019-04-25 15:26 | HP ---
Date/Time of Note Date/Time of Note DATE: 04/25/19 TIME: 15:21 Assessment/Plan VTE Prophylaxis SCD contraindicated: other Pharmacological prophylaxis: other Pharm contraindication: other Lines/Catheters IV Catheter Type (from Nrsg): Peripheral IV Assessment/Plan Assessment/Plan -Alcohol withdrawal, continue IV fluids /MVI - Ativan as needed. -Acute kidney injury on chronic kidney disease. - per nephro- Dr Romario Leung notified -Chronic diastolic congestive heart failure. - per cardio- Dr Panda notified -COPD, continue bronchodilators. -Anemia. -Hypothyroidism, continue levothyroxine -Alcoholic liver cirrhosis -Nicotine dependence, cessation is strongly advised. -Ongoing alcohol use, cessation is strongly advised. -Poor medical compliance. Plan of care discussed with Dr. Lara. Result Diagram: 04/25/19 1006 04/25/19 1006 Results 24hrs Laboratory Tests Test 04/25/19 09:55 04/25/19 10:06 B-Type Natriuretic Peptide 135 H 135 H White Blood Count 13.9 #H Red Blood Count 3.38 L Hemoglobin 8.0 L Hematocrit 27.0 L Mean Corpuscular Volume 79.9 L Mean Corpuscular Hemoglobin 23.7 L Mean Corpuscular Hemoglobin Concent 29.6 L Red Cell Distribution Width 22.2 H Platelet Count 127 #L Mean Platelet Volume Immature Granulocytes % 0.900 H Neutrophils % 71.4 Lymphocytes % 8.6 L Monocytes % 14.2 H Eosinophils % 2.4 Basophils % 2.5 H Nucleated Red Blood Cells % 0.0 Immature Granulocytes # 0.130 H Neutrophils # 9.9 H Lymphocytes # 1.2 Monocytes # 2.0 H Eosinophils # 0.3 Basophils # 0.4 H Nucleated Red Blood Cells # 0.0 Prothrombin Time 14.2 Prothrombin Time Ratio 1.1 INR International Normalized Ratio 1.09 Sodium Level 140 Potassium Level 3.7 Chloride Level 106 Carbon Dioxide Level 22 Anion Gap 12 Blood Urea Nitrogen 43 H Creatinine 1.64 H Est Glomerular Filtrat Rate mL/min 43 L Glucose Level 131 Calcium Level 7.8 L Total Bilirubin 0.4 Direct Bilirubin 0.00 Indirect Bilirubin 0.4 Aspartate Amino Transf (AST/SGOT) 43 Alanine Aminotransferase (ALT/SGPT) 22 Alkaline Phosphatase 130 H Troponin I < 0.012 Total Protein 6.1 Albumin 3.1 L Globulin 3.00 Albumin/Globulin Ratio 1.03 HPI/ROS Admit Date/Time Admit Date/Time Hx of Present Illness C/O GENERALIZED BODYACHES, ABD PAIN, UNABLE TO WALK HPI Patient is a 63-year-old male with history of congestive heart failure, hypertension, alcoholic liver cirrhosis, COPD, hypothyroidism, tobacco dependence and ongoing alcohol use presents for generalized body aches. Patient has a history of multiple visits to the ED, and he has been in withdrawal before. Reportedly has history of medication noncompliance, today he does states that he feels generally unwell. Denies fever, he does endorse shortness of breath. ROS All systems reviewed and are negative except as per history of present illness. Medications Home Meds Reported Medications Oxycodone Hcl* (Oxycontin*) 10 Mg Tab.sr.12h, 10 MG PO TID PRN for PAIN, TAB 04/25/19 Lubiprostone* (Amitiza*) 24 Mcg Capsule, 24 MCG PO BID, #60 CAP 03/12/19 Spironolactone* (Aldactone*) 25 Mg Tablet, 25 MG PO DAILY, #30 TAB 03/12/19 Pantoprazole* (Pantoprazole*) 40 Mg Tablet.dr, 40 MG PO AC BREAKFAST, TAB 03/12/19 Levothyroxine Sodium* (Levothyroxine Sodium*) 200 Mcg Tablet, 200 MCG PO BEFORE BREAKFAST, #30 TAB 03/12/19 Docusate Sodium* (Colace*) 100 Mg Capsule, 100 MG PO BID, #60 CAP 03/12/19 Lorazepam* (Lorazepam*) 1 Mg Tablet, 1 MG PO HS PRN for NEEDED, #30 TAB 03/12/19 Albuterol Sulfate* (Ventolin HFA*) 18 Gm Hfa.aer.ad, 2 PUFF INHALATION Q4H, #1 INHALER 03/12/19 Metoprolol Succinate* (Toprol XL*) 50 Mg Tab.er.24h, 50 MG PO DAILY, #30 TAB 03/12/19 Bumetanide* (Bumetanide*) 2 Mg Tablet, 2 MG PO BID, TAB 03/12/19 Allopurinol* (Allopurinol*) 100 Mg Tablet, 100 MG PO DAILY, TAB 03/12/19 Folic Acid* (Folic Acid*) 1 Mg Tablet, 1 MG PO DAILY, TAB 03/12/19 Hydralazine Hcl* (Hydralazine Hcl*) 25 Mg Tab, 25 MG PO Q8 PRN for PRN, #90 TAB 03/12/19 Acetaminophen* (Acetaminophen*) 500 MG Extra Strength Tablet, 500 MG PO Q4H PRN for MILD PAIN LEVEL 1-3, TAB 01/11/19 Discontinued Reported Medications Oxycodone Hcl* (Oxycontin*) 10 Mg Tab.sr.12h, 10 MG PO NEEDED, TAB 03/12/19 Allergies Allergies: Coded Allergies: Penicillins (Unverified Allergy, Unknown, 04/25/19) Patient strongly denies being allegic to PCN. He states, "I took that damn allergy band off. I'm not allergic to penicillen!" PMhx/Soc History of Surgery: Yes (LEFT FOOT SURGERY ( PLANTAR ASPECT ), ABDOMINAL SURGERY ) Anesthesia Reaction: No Hx Neurological Disorder: No Hx Respiratory Disorders: Yes (COPD , BRONCHITIS ) Hx Cardiac Disorders: Yes (HTN , CHF ) Hx Psychiatric Problems: Yes (DEPRESSION) Hx Miscellaneous Medical Probl: Yes (esrd w/hemo dialysis) Hx Alcohol Use: Yes Hx Substance Use: Yes (METH, COCAINE , HEROIN ) Hx Tobacco Use: Yes Smoking Status: Current every day smoker ROS Eyes: no complaints ENT: no complaints Respiratory: no complaints Cardiovascular: no complaints Gastrointestinal: no complaints Genitourinary: no complaints Musculoskeletal: no complaints PMH/Family/Social Past Medical History Medications Current Medications Ondansetron HCl (Zofran Inj) 4 mg ER BRIDGE PRN IV NAUSEA/VOMITING; Start 04/25/19 at 12:30; Stop 04/26/19 at 12:29 Acetaminophen (Tylenol Tab) 650 mg ER BRIDGE PRN PO .MILD PAIN 1-3 OR TEMP; Start 04/25/19 at 12:30; Stop 04/26/19 at 12:29 Lorazepam (Ativan) 0.5 mg Q4 PRN IV anxiety Last administered on 04/25/19at 13:39; Admin Dose 0.5 MG; Start 04/25/19 at 13:30 Hydromorphone HCl (Dilaudid) 1 mg Q4 PRN IV breakthrough pain; Start 04/25/19 at 13:30 Coded Allergies: Penicillins (Unverified Allergy, Unknown, 04/25/19) Patient strongly denies being allegic to PCN. He states, "I took that damn allergy band off. I'm not allergic to penicillen!" Past Surgical History Past Surgical Hx: other Family History Significant Family History: no pertinent family hx Social History Smoking Status: Current every day smoker Exam/Review of Systems Vital Signs Vitals Vital Signs Date Temp Pulse Resp B/P (MAP) Pulse Ox O2 O2 Flow FiO2 Time Delivery Rate 04/25/19 98.9 93 18 108/59 91 Nasal 6.0 15:02 (75) Cannula Exam Constitutional: alert, well developed Psych: nl mood/affect Head: atraumatic Eyes: nl lids, nl sclera ENMT: nl external ears & nose Neck: non-tender Respiratory: clear to auscultation Cardiovascular: nl pulses, other (s1s2) Gastrointestinal: soft, non-tender Musculoskeletal: muscle weakness Extremities: edema Neurological: confused Lymph: nontender GO LAMBERT Apr 25, 2019 15:26
[2019-04-25] MEDS ORDERED: LORAZEPAM 1 MG TAB PO PRN (15:30)
[2019-04-25] MEDS ORDERED: ACETAMINOPHEN 500 MG TAB PO PRN (15:30)
[2019-04-25 16:00] VITALS: BP 122/59; PULSE 98; RESP 19
[2019-04-25] MEDS ORDERED: MULTIVITAMINS 10 ML, THIAMINE 100 MG, FOLIC ACID 1 MG in SOD CHLORIDE 0.9% 1,000 ML IVPB SCH (16:00)
[2019-04-25 16:23] VITALS: Ht 182.9 cm; Wt 102.0 kg
[2019-04-25] MEDS: BUMETANIDE 1 MG TAB PO SCH (17:34)
--- NOTE | 2019-04-25 18:59 | CONS ---
Assessment/Plan Assessment/Plan Assessment/Plan (Daily) 1. acute on chronic renal failure due to Type II hepatorenal syndrome 2. possible alcohol withdrawl 3. anemia of CKD 5. H/o liver cirrhosis 6. H/O HTN 7. h/o Liver cirrhosis with ascites 8. H/o Diastolic CHF 9. Bilateral LE chronic venous stasis 10.H/o BPH on Flomax Plan: BUN/Cr43/1.64, other electrolytes stable today, on Bumex 2 mg pO BID azithromycin pO for acute bronchitis -EGD done April 2018 showed duodenal ulcer and gastritis -s/p colonoscopy 01/28/19 Flomax 0.4mg po daily for BPH will follow up, Thanks for consulation Consultation Date/Type/Reason Admit Date/Time Date/Time of Note DATE: 04/25/19 TIME: 18:58 Past Medical History Home Meds Reported Medications Oxycodone Hcl* (Oxycontin*) 10 Mg Tab.sr.12h, 10 MG PO TID PRN for PAIN, TAB 04/25/19 Lubiprostone* (Amitiza*) 24 Mcg Capsule, 24 MCG PO BID, #60 CAP 03/12/19 Spironolactone* (Aldactone*) 25 Mg Tablet, 25 MG PO DAILY, #30 TAB 03/12/19 Pantoprazole* (Pantoprazole*) 40 Mg Tablet.dr, 40 MG PO AC BREAKFAST, TAB 03/12/19 Levothyroxine Sodium* (Levothyroxine Sodium*) 200 Mcg Tablet, 200 MCG PO BEFORE BREAKFAST, #30 TAB 03/12/19 Docusate Sodium* (Colace*) 100 Mg Capsule, 100 MG PO BID, #60 CAP 03/12/19 Lorazepam* (Lorazepam*) 1 Mg Tablet, 1 MG PO HS PRN for NEEDED, #30 TAB 03/12/19 Albuterol Sulfate* (Ventolin HFA*) 18 Gm Hfa.aer.ad, 2 PUFF INHALATION Q4H, #1 INHALER 03/12/19 Metoprolol Succinate* (Toprol XL*) 50 Mg Tab.er.24h, 50 MG PO DAILY, #30 TAB 03/12/19 Bumetanide* (Bumetanide*) 2 Mg Tablet, 2 MG PO BID, TAB 03/12/19 Allopurinol* (Allopurinol*) 100 Mg Tablet, 100 MG PO DAILY, TAB 03/12/19 Folic Acid* (Folic Acid*) 1 Mg Tablet, 1 MG PO DAILY, TAB 03/12/19 Hydralazine Hcl* (Hydralazine Hcl*) 25 Mg Tab, 25 MG PO Q8 PRN for PRN, #90 TAB 03/12/19 Acetaminophen* (Acetaminophen*) 500 MG Extra Strength Tablet, 500 MG PO Q4H PRN for MILD PAIN LEVEL 1-3, TAB 01/11/19 Discontinued Reported Medications Oxycodone Hcl* (Oxycontin*) 10 Mg Tab.sr.12h, 10 MG PO NEEDED, TAB 03/12/19 Medications Current Medications Lorazepam (Ativan) 0.5 mg Q4 PRN IV anxiety Last administered on 04/25/19at 13:39; Admin Dose 0.5 MG; Start 04/25/19 at 13:30 Hydromorphone HCl (Dilaudid) 1 mg Q4 PRN IV breakthrough pain; Start 04/25/19 at 13:30 Acetaminophen (Tylenol Tab) 500 mg Q4H PRN PO MILD PAIN LEVEL 1-3; Start 04/25/19 at 15:30 Albuterol (Ventolin Hfa) 2 puff Q4H RESP THERAPY INH ; Start 04/25/19 at 17:00 Allopurinol (Zyloprim) 100 mg DAILY PO ; Start 04/26/19 at 09:00 Docusate Sodium (Colace) 100 mg BID PO ; Start 04/25/19 at 21:00 Folic Acid (Folic Acid) 1 mg DAILY PO ; Start 04/26/19 at 09:00 Hydralazine HCl (Apresoline) 25 mg Q8H PRN PO PRN; Start 04/25/19 at 16:00; Status UNV Levothyroxine Sodium (Synthroid) 200 mcg BEFORE BREAKFAST PO ; Start 04/26/19 at 07:00 Lorazepam (Ativan) 1 mg HS PRN PO NEEDED; Start 04/25/19 at 15:30 Lubiprostone (Amitiza) 24 mcg BID PO ; Start 04/25/19 at 21:00 Pantoprazole (Protonix Tab) 40 mg AC BREAKFAST PO ; Start 04/26/19 at 07:00 Spironolactone (Aldactone) 25 mg DAILY PO ; Start 04/26/19 at 09:00 Bumetanide (Bumex) 2 mg BID DIURETICS PO Last administered on 04/25/19at 17:34; Admin Dose 2 MG; Start 04/25/19 at 18:00 Multivitamins 10 ml/Thiamine HCl 100 mg/Folic Acid 1 mg/Sodium Chloride 1,011.2 ml @ 125 mls/ hr DAILY@09 IVPB Last administered on 04/25/19at 17:34; Admin Dose 125 MLS/HR; Start 04/25/19 at 16:00 Allergies: Coded Allergies: Penicillins (Unverified Allergy, Unknown, 04/25/19) Patient strongly denies being allegic to PCN. He states, "I took that damn allergy band off. I'm not allergic to penicillen!" Past Surgical History Past Surgical Hx: other Social History Smoking Status: Current every day smoker Exam/Review of Systems Exam Vitals Vital Signs: Date Temp Pulse Resp B/P (MAP) Pulse Ox O2 O2 Flow FiO2 Time Delivery Rate 04/25/19 Nasal 2.0 16:50 Cannula 04/25/19 98.4 98 19 122/59 92 16:00 (80) Exam Constitutional: alert, well developed ENMT: nl external ears & nose Respiratory: clear to auscultation Cardiovascular: nl pulses, other (S1S2) Gastrointestinal: soft, non-tender Musculoskeletal: muscle weakness Extremities: normal pulses Neurological: non focal , alert awake Results Result Diagram: 04/25/19 1006 04/25/19 1006 Results 24hrs Laboratory Tests Test 04/25/19 09:55 04/25/19 10:06 B-Type Natriuretic Peptide 135 H 135 H White Blood Count 13.9 #H Red Blood Count 3.38 L Hemoglobin 8.0 L Hematocrit 27.0 L Mean Corpuscular Volume 79.9 L Mean Corpuscular Hemoglobin 23.7 L Mean Corpuscular Hemoglobin Concent 29.6 L Red Cell Distribution Width 22.2 H Platelet Count 127 #L Mean Platelet Volume Immature Granulocytes % 0.900 H Neutrophils % 71.4 Lymphocytes % 8.6 L Monocytes % 14.2 H Eosinophils % 2.4 Basophils % 2.5 H Nucleated Red Blood Cells % 0.0 Immature Granulocytes # 0.130 H Neutrophils # 9.9 H Lymphocytes # 1.2 Monocytes # 2.0 H Eosinophils # 0.3 Basophils # 0.4 H Nucleated Red Blood Cells # 0.0 Prothrombin Time 14.2 Prothrombin Time Ratio 1.1 INR International Normalized Ratio 1.09 Sodium Level 140 Potassium Level 3.7 Chloride Level 106 Carbon Dioxide Level 22 Anion Gap 12 Blood Urea Nitrogen 43 H Creatinine 1.64 H Est Glomerular Filtrat Rate mL/min 43 L Glucose Level 131 Calcium Level 7.8 L Total Bilirubin 0.4 Direct Bilirubin 0.00 Indirect Bilirubin 0.4 Aspartate Amino Transf (AST/SGOT) 43 Alanine Aminotransferase (ALT/SGPT) 22 Alkaline Phosphatase 130 H Troponin I < 0.012 Total Protein 6.1 Albumin 3.1 L Globulin 3.00 Albumin/Globulin Ratio 1.03 Medications Medication Current Medications Lorazepam (Ativan) 0.5 mg Q4 PRN IV anxiety Last administered on 04/25/19at 13:39; Admin Dose 0.5 MG; Start 04/25/19 at 13:30 Hydromorphone HCl (Dilaudid) 1 mg Q4 PRN IV breakthrough pain; Start 04/25/19 at 13:30 Acetaminophen (Tylenol Tab) 500 mg Q4H PRN PO MILD PAIN LEVEL 1-3; Start 04/25/19 at 15:30 Albuterol (Ventolin Hfa) 2 puff Q4H RESP THERAPY INH ; Start 04/25/19 at 17:00 Allopurinol (Zyloprim) 100 mg DAILY PO ; Start 04/26/19 at 09:00 Docusate Sodium (Colace) 100 mg BID PO ; Start 04/25/19 at 21:00 Folic Acid (Folic Acid) 1 mg DAILY PO ; Start 04/26/19 at 09:00 Hydralazine HCl (Apresoline) 25 mg Q8H PRN PO PRN; Start 04/25/19 at 16:00; Status UNV Levothyroxine Sodium (Synthroid) 200 mcg BEFORE BREAKFAST PO ; Start 04/26/19 at 07:00 Lorazepam (Ativan) 1 mg HS PRN PO NEEDED; Start 04/25/19 at 15:30 Lubiprostone (Amitiza) 24 mcg BID PO ; Start 04/25/19 at 21:00 Pantoprazole (Protonix Tab) 40 mg AC BREAKFAST PO ; Start 04/26/19 at 07:00 Spironolactone (Aldactone) 25 mg DAILY PO ; Start 04/26/19 at 09:00 Bumetanide (Bumex) 2 mg BID DIURETICS PO Last administered on 04/25/19at 17:34; Admin Dose 2 MG; Start 04/25/19 at 18:00 Multivitamins 10 ml/Thiamine HCl 100 mg/Folic Acid 1 mg/Sodium Chloride 1,011.2 ml @ 125 mls/ hr DAILY@09 IVPB Last administered on 04/25/19at 17:34; Admin Dose 125 MLS/HR; Start 04/25/19 at 16:00 ELADIO DELGADO MD Apr 25, 2019 18:58
[2019-04-25 19:31] VITALS: BP 100/53; PULSE 101; RESP 21
[2019-04-25] MEDS: LUBIPROSTONE 24 MCG CAP PO SCH (20:36)
[2019-04-25] MEDS: DOCUSATE SODIUM 100 MG CAP PO SCH (20:36)
[2019-04-25] MEDS: ALBUTEROL HFA 8 GM INHALER INH SCH ×2 (21:00→22:57)
[2019-04-25] MEDS: HYDROmorphONE 1 MG/ML SYG IV PRN (22:33)
[2019-04-25 23:37] VITALS: BP 107/51; PULSE 97; RESP 23
[2019-04-26] MEDS: ALBUTEROL HFA 8 GM INHALER INH SCH ×6 (01:00→20:57)
[2019-04-26] MEDS: HYDROmorphONE 1 MG/ML SYG IV PRN ×5 (03:00→22:59)
[2019-04-26] MEDS: LORAZEPAM 2 MG INJ IV PRN ×5 (03:01→22:58)
[2019-04-26 03:31] VITALS: BP 127/64; PULSE 106; RESP 21
[2019-04-26] MEDS: BUMETANIDE 1 MG TAB PO SCH ×2 (06:00→17:45)
[2019-04-26] MEDS: LEVOTHYROXINE 100 MCG TAB PO SCH (07:15)
[2019-04-26] MEDS: PANTOPRAZOLE (EC) 40 MG TAB PO SCH (07:15)
[2019-04-26 08:16] VITALS: BP 141/69; PULSE 95; RESP 18
[2019-04-26] MEDS: DOCUSATE SODIUM 100 MG CAP PO SCH ×2 (08:20→21:00)
[2019-04-26] MEDS: SPIRONOLACTONE 25 MG TAB PO SCH (08:20)
[2019-04-26] MEDS: LUBIPROSTONE 24 MCG CAP PO SCH ×2 (08:20→20:57)
[2019-04-26] MEDS: ALLOPURINOL 100 MG TAB PO SCH (08:20)
[2019-04-26] MEDS: FOLIC ACID 1 MG TAB PO SCH (08:20)
--- NOTE | 2019-04-26 12:12 | PN ---
Date/Time of Note Date/Time of Note DATE: 04/26/19 TIME: 12:11 Assessment/Plan VTE Prophylaxis Risk score (from Ns)>0 risk: 3 SCD applied (from [facility] [place]): Yes SCD contraindicated: other Pharmacological prophylaxis: other Pharm contraindication: other Lines/Catheters IV Catheter Type (from [facility]): Peripheral IV Urinary Cath still in place: No Assessment/Plan Assessment/Plan - abdominal pain -gi consult- notified - change diet to clear liquid diet -Alcohol withdrawal, continue IV fluids /MVI - Ativan as needed. -Acute kidney injury on chronic kidney disease. -Chronic diastolic congestive heart failure. - per cardio -COPD, continue bronchodilators. -Anemia. -Hypothyroidism, continue levothyroxine -Alcoholic liver cirrhosis -Nicotine dependence, cessation is strongly advised. -Ongoing alcohol use, cessation is strongly advised. -Poor medical compliance. Plan of care discussed with Dr. Lara. Result Diagram: 04/26/19 0828 04/26/19 0828 Results 24hrs Laboratory Tests Test 04/26/19 08:28 White Blood Count 13.6 H Red Blood Count 3.20 L Hemoglobin 7.6 L Hematocrit 26.0 L Mean Corpuscular Volume 81.3 L Mean Corpuscular Hemoglobin 23.8 L Mean Corpuscular Hemoglobin Concent 29.2 L Red Cell Distribution Width 21.7 H Platelet Count 107 L Mean Platelet Volume Immature Granulocytes % 1.500 H Neutrophils % 90.7 H Lymphocytes % 2.9 L Monocytes % 4.6 Eosinophils % 0.1 Basophils % 0.2 Nucleated Red Blood Cells % 0.0 Immature Granulocytes # 0.200 H Neutrophils # 12.3 H Lymphocytes # 0.4 L Monocytes # 0.6 Eosinophils # 0.0 Basophils # 0.0 Nucleated Red Blood Cells # 0.0 Sodium Level 135 Potassium Level 3.9 Chloride Level 102 Carbon Dioxide Level 22 Anion Gap 11 Blood Urea Nitrogen 44 H Creatinine 1.51 H Est Glomerular Filtrat Rate mL/min 47 L Glucose Level 148 Calcium Level 7.7 L Triglycerides Level 37 Cholesterol Level 129 LDL Cholesterol, Calculated 70 HDL Cholesterol 52 Cholesterol/HDL Ratio 2.4 Subjective 24 Hr Interval Summary ENT: no complaints Respiratory: no complaints Gastrointestinal: pain Genitourinary: no complaints Musculoskeletal: no complaints Skin: no complaints Neurologic: no complaints Endocrine: no complaints Psychological: nl mood/affect Immunologic: no complaints Exam/Review of Systems Exam Vitals Vital Signs Date Temp Pulse Resp B/P (MAP) Pulse Ox O2 O2 Flow FiO2 Time Delivery Rate 04/26/19 98.1 95 18 141/69 95 08:16 (93) 04/25/19 Nasal 2.0 20:00 Cannula Intake and Output 04/25/19 04/25/19 04/26/19 1515:00 23:00 07:00 IntakeIntake Total 250 ml 200 ml OutputOutput Total 450 ml 750 ml BalanceBalance -200 ml -550 ml Constitutional: alert, well developed Psych: nl mood/affect Eyes: nl lids, nl sclera ENMT: nl external ears & nose Neck: non-tender Respiratory: clear to auscultation Cardiovascular: nl pulses, other (S1S2) Gastrointestinal: soft, non-tender Musculoskeletal: muscle weakness Extremities: normal pulses Neurological: nl speech, other (ALERT) Lymph: nontender Results Results 24hrs Laboratory Tests Test 04/26/19 08:28 White Blood Count 13.6 H Red Blood Count 3.20 L Hemoglobin 7.6 L Hematocrit 26.0 L Mean Corpuscular Volume 81.3 L Mean Corpuscular Hemoglobin 23.8 L Mean Corpuscular Hemoglobin Concent 29.2 L Red Cell Distribution Width 21.7 H Platelet Count 107 L Mean Platelet Volume Immature Granulocytes % 1.500 H Neutrophils % 90.7 H Lymphocytes % 2.9 L Monocytes % 4.6 Eosinophils % 0.1 Basophils % 0.2 Nucleated Red Blood Cells % 0.0 Immature Granulocytes # 0.200 H Neutrophils # 12.3 H Lymphocytes # 0.4 L Monocytes # 0.6 Eosinophils # 0.0 Basophils # 0.0 Nucleated Red Blood Cells # 0.0 Sodium Level 135 Potassium Level 3.9 Chloride Level 102 Carbon Dioxide Level 22 Anion Gap 11 Blood Urea Nitrogen 44 H Creatinine 1.51 H Est Glomerular Filtrat Rate mL/min 47 L Glucose Level 148 Calcium Level 7.7 L Triglycerides Level 37 Cholesterol Level 129 LDL Cholesterol, Calculated 70 HDL Cholesterol 52 Cholesterol/HDL Ratio 2.4 Medications Medication Current Medications Lorazepam (Ativan) 0.5 mg Q4 PRN IV anxiety Last administered on 04/26/19at 08:21; Admin Dose 0.5 MG; Start 04/25/19 at 13:30 Hydromorphone HCl (Dilaudid) 1 mg Q4 PRN IV breakthrough pain Last administered on 04/26/19 08:21; Admin Dose 1 MG; Start 04/25/19 at 13:30 Acetaminophen (Tylenol Tab) 500 mg Q4H PRN PO MILD PAIN LEVEL 1-3; Start 04/25/19 at 15:30 Albuterol (Ventolin Hfa) 2 puff Q4H RESP THERAPY INH Last administered on 06:00; Admin Dose 2 PUFF; Start 04/25/19 at 17:00 Allopurinol (Zyloprim) 100 mg DAILY PO Last administered on 04/26/19 08:20; Admin Dose 100 MG; Start 04/26/19 at 09:00 Docusate Sodium (Colace) 100 mg BID PO Last administered on 04/26/19 08:20; Admin Dose 100 MG; Start 04/25/19 at 21:00 Folic Acid (Folic Acid) 1 mg DAILY PO Last administered on 04/26/19 08:20; Admin Dose 1 MG; Start 04/26/19 at 09:00 Hydralazine HCl (Apresoline) 25 mg Q8H PRN PO FOR SBP OVER 160; Start 04/25/19 at 16:00 Levothyroxine Sodium (Synthroid) 200 mcg BEFORE BREAKFAST PO Last administered on 04/26/19 07:15; Admin Dose 200 MCG; Start 04/26/19 at 07:00 Lorazepam (Ativan) 1 mg HS PRN PO NEEDED; Start 04/25/19 at 15:30 Lubiprostone (Amitiza) 24 mcg BID PO Last administered on 04/26/19 08:20; Ad min Dose 24 MCG; Start 04/25/19 at 21:00 Pantoprazole (Protonix Tab) 40 mg AC BREAKFAST PO Last administered on 04/26/19 07:15; Admin Dose 40 MG; Start 04/26/19 at 07:00 Spironolactone (Aldactone) 25 mg DAILY PO Last administered on 04/26/19 08:20; Admin Dose 25 MG; Start 04/26/19 at 09:00 Bumetanide (Bumex) 2 mg BID DIURETICS PO Last administered on 04/26/19 06:00; Admin Dose 2 MG; Start 04/25/19 at 18:00 Thiamine HCl (Vitamin B1) 100 mg DAILY PO ; Start 04/28/19 at 09:00 Multivitamins Therapeutic (Theragran) 1 tab DAILY PO ; Start 04/28/19 at 09:00 Azithromycin 250 ml @ 250 mls/hr Q24H IVPB ; Start 04/26/19 at 10:30 Albuterol/ Ipratropium (Duoneb) 3 ml Q6HWA RESP THERAPY HHN ; Start 04/26/19 at 14:00 Methylprednisolone Sodium Succinate (Solu-Medrol) 40 mg Q12 IV ; Start 04/26/19 at 21:00 GO LAMBERT Apr 26, 2019 12:12
[2019-04-26 12:23] VITALS: BP 141/74; PULSE 104; RESP 18
[2019-04-26] MEDS: AZITHROMYCIN 500MG/NS (PMX) 250 ML IVPB SCH (12:34)
[2019-04-26] MEDS: ALBUTEROL/IPRATROPIUM (NEB) 3 ML AMP HHN SCH ×2 (13:37→20:00)
--- NOTE | 2019-04-26 14:39 | CONS ---
DATE OF ADMISSION: 04/25/2019 DATE OF CONSULTATION: 04/26/2019 REFERRING PHYSICIAN: Koko Lara MD REASON FOR EVALUATION: Shortness of breath. HISTORY OF PRESENT ILLNESS: Mr. Milian is a 63-year-old gentleman known to me from multiple prior admissions. He has a diagnosis of hypertension, dyslipidemia, history of alcohol abuse, history of heart failure with preserved ejection fraction, history of liver disease, who comes to the [facility] for evaluation of shortness of breath. The patient says he has had diarrhea for 10 days. The pat ient was also tachycardic. His tachycardia appears to be sinus tachycardia in nature. The patient i s once again in some degree of fluid overload. I think for now, conservative therapy is expected. T he patient's fluid status is being optimized with medical therapy. I suspect there might have been s ome degree of noncompliance as well. PAST MEDICAL HISTORY: 1. Hypertension. 2. Dyslipidemia. 3. History of heart failure, ejection fraction, history of COPD, history of medical noncompliance, h istory of alcohol use, diabetes. ALLERGIES: PENICILLIN. SOCIAL HISTORY: The patient has a history of tobacco and alcohol use. MEDICATIONS: The patient is on thiamine, multivitamins, albuterol, azithromycin, Folic acid, Spirono lactone 25 mg once a day, pantoprazole, docusate. He is on Bumex 2 mg p.o. b.i.d., hydralazine and l orazepam. REVIEW OF SYSTEMS: CONSTITUTIONAL: No fevers, no chills, or diarrhea described. HEENT: No JVD. CARDIAC: Chest pain reported now. RESPIRATORY: No shortness of breath. GASTROINTESTINAL: No nausea, vomiting. GENITOURINARY: . NEUROLOGIC: No focal deficits. HEMATOLOGIC: History of anemia. PSYCHIATRIC: . PHYSICAL EXAMINATION: VITAL SIGNS: Temperature 98.1, heart rate is 95, blood pressure 141/69. GENERAL: This is well-nourished gentleman in no acute distress, alert and oriented x3, aware of his condition. HEAD: Normocephalic, atraumatic. intact. NECK: Supple. JVD 6 cm. No lymphadenopathy. HEART: Regular, soft systolic murmur. PMI is in a sinus tachycardic. LUNGS: Coarse at the base. ABDOMEN: Distended, bowel sounds are present. There is no hepatosplenomegaly. GENITOURINARY: Inta ct. EXTREMITIES: Show no clubbing, cyanosis, 2+ edema. LABORATORY DATA: White blood cell count is 3.7, hemoglobin 7.9, platelets 102. His INR is 1.0. Sod ium 135, potassium 3.6, creatinine is 1.5. Troponin is negative at 0.01. ASSESSMENT: 1. The patient likely has some degree of medical noncompliance. He is in congestive heart failure n ow, he is being diuresed with Bumex per renal team. 2. Hypertension. Blood pressure well controlled for now. 3. History of liver disease. Continue to avoid nephrotoxic medications. 4. Diarrhea. Continue to monitor. Gastroenterology to follow. 5. Renal insufficiency. Creatinine is 1.5, which is fairly close to baseline. Continue to monitor clinically. 5. Medical noncompliance, encourage compliant care. I would like to thank Dr. Lara for referring this patient for my evaluation. Dictated By: HALEY LIRIANO MD ML/NTS Conf#: [id number] DID#: [id number] CC: KOKO LARA MD;*EndCC*
[2019-04-26 16:21] VITALS: BP 131/88; PULSE 108; RESP 18
[2019-04-26 19:23] VITALS: BP 132/66; PULSE 129; RESP 21
--- NOTE | 2019-04-26 20:53 | CONS ---
Assessment/Plan Assessment/Plan Assessment/Plan (Daily) 1. TRENT on CKD III due to Type II hepatorenal syndrome 2. possible alcohol withdrawl - resolved 3. anemia of CKD 5. H/o liver cirrhosis 6. H/O HTN 7. h/o Liver cirrhosis with ascites 8. H/o Diastolic CHF 9. Bilateral LE chronic venous stasis 10.H/o BPH on Flomax Plan: BUN/Cr slightly better 44/1.51, other electrolytes stable, continue Bumex 2 mg pO BID azithromycin pO for acute bronchitis s/p IV banana bag -EGD done April 2018 showed duodenal ulcer and gastritis -s/p colonoscopy 01/28/19 Flomax 0.4mg po daily for BPH will follow up Consultation Date/Type/Reason Admit Date/Time Apr 25, 2019 at 12:05 Initial Consult Date Date/Time of Note DATE: 04/26/19 TIME: 20:53 Exam/Review of Systems Exam Vitals Vital Signs Date Temp Pulse Resp B/P (MAP) Pulse Ox O2 O2 Flow FiO2 Time Delivery Rate 04/26/19 21 20:23 04/26/19 98.3 129 21 132/66 92 19:23 (88) 04/25/19 Nasal 2.0 20:00 Cannula Intake and Output 04/25/19 04/25/19 04/26/19 1515:00 23:00 07:00 IntakeIntake Total 250 ml 200 ml OutputOutput Total 450 ml 750 ml BalanceBalance -200 ml -550 ml Exam Constitutional: alert, well developed, obese Respiratory: diminished breath sounds (at bases bilaterally) Cardiovascular: nl pulses, other (s1s2) Gastrointestinal: soft, non-tender Musculoskeletal: muscle weakness Extremities: normal pulses 1+ pitting edema, no cyanosis Results Result Diagram: 04/26/1982704/26/19827 Results 24hrs Laboratory Tests Test 04/26/19 08:28 White Blood Count 13.6 H Red Blood Count 3.20 L Hemoglobin 7.6 L Hematocrit 26.0 L Mean Corpuscular Volume 81.3 L Mean Corpuscular Hemoglobin 23.8 L Mean Corpuscular Hemoglobin Concent 29.2 L Red Cell Distribution Width 21.7 H Platelet Count 107 L Mean Platelet Volume Immature Granulocytes % 1.500 H Neutrophils % 90.7 H Lymphocytes % 2.9 L Monocytes % 4.6 Eosinophils % 0.1 Basophils % 0.2 Nucleated Red Blood Cells % 0.0 Immature Granulocytes # 0.200 H Neutrophils # 12.3 H Lymphocytes # 0.4 L Monocytes # 0.6 Eosinophils # 0.0 Basophils # 0.0 Nucleated Red Blood Cells # 0.0 Sodium Level 135 Potassium Level 3.9 Chloride Level 102 Carbon Dioxide Level 22 Anion Gap 11 Blood Urea Nitrogen 44 H Creatinine 1.51 H Est Glomerular Filtrat Rate mL/min 47 L Glucose Level 148 Calcium Level 7.7 L Triglycerides Level 37 Cholesterol Level 129 LDL Cholesterol, Calculated 70 HDL Cholesterol 52 Cholesterol/HDL Ratio 2.4 Medications Medication Current Medications Lorazepam (Ativan) 0.5 mg Q4 PRN IV anxiety Last administered on 04/26/19 17:45; Admin Dose 0.5 MG; Start 04/25/19 at 13:30 Hydromorphone HCl (Dilaudid) 1 mg Q4 PRN IV breakthrough pain Last administered on 04/26/19 17:45; Admin Dose 1 MG; Start 04/25/19 at 13:30 Acetaminophen (Tylenol Tab) 500 mg Q4H PRN PO MILD PAIN LEVEL 1-3; Start 04/25/19 at 15:30 Albuterol (Ventolin Hfa) 2 puff Q4H RESP THERAPY INH Last administered on 04/26/19 17:44; Admin Dose 2 PUFF; Start 04/25/19 at 17:00 Allopurinol (Zyloprim) 100 mg DAILY PO Last administered on 04/26/19 08:20; Admin Dose 100 MG; Start 04/26/19 at 09:00 Docusate Sodium (Colace) 100 mg BID PO Last administered on 04/26/19 08:20; Ad min Dose 100 MG; Start 04/25/19 at 21:00 Folic Acid (Folic Acid) 1 mg DAILY PO Last administered on 04/26/19 08:20; Admin Dose 1 MG; Start 04/26/19 at 09:00 Hydralazine HCl (Apresoline) 25 mg Q8H PRN PO FOR SBP OVER 160; Start 04/25/19 at 16:00 Levothyroxine Sodium (Synthroid) 200 mcg BEFORE BREAKFAST PO Last administered on 04/26/19at 07:15; Admin Dose 200 MCG; Start 04/26/19 at 07:00 Lorazepam (Ativan) 1 mg HS PRN PO NEEDED; Start 04/25/19 at 15:30 Lubiprostone (Amitiza) 24 mcg BID PO Last administered on 04/26/19at 08:20; Admin Dose 24 MCG; Start 04/25/19 at 21:00 Pantoprazole (Protonix Tab) 40 mg AC BREAKFAST PO Last administered on 04/26/19at 07:15; Admin Dose 40 MG; Start 04/26/19 at 07:00 Spironolactone (Aldactone) 25 mg DAILY PO Last administered on 04/26/19at 08:20; Admin Dose 25 MG; Start 04/26/19 at 09:00 Bumetanide (Bumex) 2 mg BID DIURETICS PO Last administered on 04/26/19at 17:45; Admin Dose 2 MG; Start 04/25/19 at 18:00 Thiamine HCl (Vitamin B1) 100 mg DAILY PO ; Start 04/28/19 at 09:00 Multivitamins Therapeutic (Theragran) 1 tab DAILY PO ; Start 04/28/19 at 09:00 Azithromycin 250 ml @ 250 mls/hr Q24H IVPB Last administered on 04/26/19at 12:34; Admin Dose 250 MLS/HR; Start 04/26/19 at 10:30 Albuterol/ Ipratropium (Duoneb) 3 ml Q6HWA RESP THERAPY HHN ; Start 04/26/19 at 14:00 Methylprednisolone Sodium Succinate (Solu-Medrol) 40 mg Q12 IV ; Start 04/26/19 at 21:00 ELADIO DELGADO MD Apr 26, 2019 20:53
[2019-04-26] MEDS: METHYLPREDNISOLONE 40 MG INJ IV SCH (20:57)
[2019-04-26 23:24] VITALS: BP 141/61; PULSE 117; RESP 22
[2019-04-27] MEDS: ALBUTEROL HFA 8 GM INHALER INH SCH ×6 (01:09→23:11)
[2019-04-27 03:31] VITALS: BP 121/63; PULSE 111; RESP 21
[2019-04-27] MEDS: BUMETANIDE 1 MG TAB PO SCH ×2 (05:17→18:24)
[2019-04-27] MEDS: LORAZEPAM 2 MG INJ IV PRN ×4 (05:19→18:32)
[2019-04-27] MEDS: HYDROmorphONE 1 MG/ML SYG IV PRN ×5 (05:20→23:06)
[2019-04-27] MEDS: PANTOPRAZOLE (EC) 40 MG TAB PO SCH (06:34)
[2019-04-27] MEDS: LEVOTHYROXINE 100 MCG TAB PO SCH (06:34)
[2019-04-27 07:19] VITALS: BP 130/76; PULSE 128; RESP 20
[2019-04-27] MEDS: ALBUTEROL/IPRATROPIUM (NEB) 3 ML AMP HHN SCH ×3 (07:48→20:00)
[2019-04-27] MEDS: DOCUSATE SODIUM 100 MG CAP PO SCH ×2 (09:58→20:31)
[2019-04-27] MEDS: ALLOPURINOL 100 MG TAB PO SCH (09:58)
[2019-04-27] MEDS: AZITHROMYCIN 500MG/NS (PMX) 250 ML IVPB SCH (09:58)
[2019-04-27] MEDS: METHYLPREDNISOLONE 40 MG INJ IV SCH ×2 (09:58→20:31)
[2019-04-27] MEDS: LUBIPROSTONE 24 MCG CAP PO SCH ×2 (09:58→20:32)
[2019-04-27] MEDS: FOLIC ACID 1 MG TAB PO SCH (09:58)
[2019-04-27] MEDS: SPIRONOLACTONE 25 MG TAB PO SCH (09:58)
--- NOTE | 2019-04-27 11:15 | CONS ---
Assessment/Plan Assessment/Plan Hospital Course (Demo Recall) IMP: 1.CHF-diastolic acute on chronic by echo 01/23 with EF 60-65% 2.HTN 3.Renal failure 4.Cirrhosis/ascites 5.loose stools 6.anemia 7. Tobacco dependence 8. ETOH dependence 9. Tachycardia-S tach at this time 10.COPD Recc: -Tele -serial ecg's -start BB to improve HR and BP control -Continue aldactone/bumex and foloow volume status clsoely -Continue steroids/bronchodilators -Pain control Consultation Date/Type/Reason Admit Date/Time Apr 25, 2019 at 12:05 Initial Consult Date 04/26/19 Type of Consult Cardiology Reason for Consultation CHF Requesting Provider: KOKO MARLOW MD Date/Time of Note DATE: 04/27/19 TIME: 11:08 Exam/Review of Systems Vital Signs Vitals Vital Signs Date Temp Pulse Resp B/P (MAP) Pulse Ox O2 O2 Flow FiO2 Time Delivery Rate 04/27/19 97.9 128 20 130/76 96 Room Air 07:19 (94) 04/26/19 21 20:23 04/26/19 2.0 20:00 Intake and Output 04/26/19 04/26/19 04/27/19 1515:00 23:00 07:00 IntakeIntake Total 250 ml 680 ml 300 ml OutputOutput Total 400 ml 2000 ml BalanceBalance 250 ml 280 ml -1700 ml Exam Exam Review of Systems: CONSTITUTIONAL: No fevers, chills. PULMONARY: No sob CARDIOVASCULAR: No chest pain/palpitations GASTROINTESTINAL: No nausea/vomiting. GENITOURINARY: No hematuria/dysuria. MUSCULOSKELETAL: c/o generalized body pain PSYCHIATRIC: The patient denies depression. NEUROLOGIC: No weakness Constitutional: alert Psych: no complaints Head: normocephalic ENMT: mucosa pink and moist Neck: supple, jvd (9 cm water) Respiratory: diminished breath sounds (at bases/B) Cardiovascular: regular rate and rhythm Gastrointestinal: soft, non-tender Musculoskeletal: muscle weakness (mild generalized) Extremities: edema (bilateral with chronic LE changes) Neurological: other (No focal deficits) Labs Result Diagram: 04/27/19 0457 04/27/19 0457 Results 24hrs Laboratory Tests Test 04/27/19 04:57 White Blood Count 12.2 H Red Blood Count 3.15 L Hemoglobin 7.5 L Hematocrit 26.0 L Mean Corpuscular Volume 82.5 Mean Corpuscular Hemoglobin 23.8 L Mean Corpuscular Hemoglobin Concent 28.8 L Red Cell Distribution Width 21.7 H Platelet Count 111 L Mean Platelet Volume 11.8 H Immature Granulocytes % 1.700 H Neutrophils % 91.3 H Lymphocytes % 2.4 L Monocytes % 4.4 Eosinophils % 0.0 Basophils % 0.2 Nucleated Red Blood Cells % 0.0 Immature Granulocytes # 0.210 H Neutrophils # 11.2 H Lymphocytes # 0.3 L Monocytes # 0.5 Eosinophils # 0.0 Basophils # 0.0 Nucleated Red Blood Cells # 0.0 Sodium Level 134 L Potassium Level 3.2 L Chloride Level 102 Carbon Dioxide Level 20 L Anion Gap 12 Blood Urea Nitrogen 38 H Creatinine 1.44 H Est Glomerular Filtrat Rate mL/min 50 L Glucose Level 157 Calcium Level 7.7 L Total Bilirubin 0.3 Direct Bilirubin 0.00 Indirect Bilirubin 0.3 Aspartate Amino Transf (AST/SGOT) 27 Alanine Aminotransferase (ALT/SGPT) 25 Alkaline Phosphatase 98 Total Protein 5.7 L Albumin 2.9 L Lipase 330 H Medications Medications Current Medications Lorazepam (Ativan) 0.5 mg Q4 PRN IV anxiety Last administered on 04/27/19 09:58; Admin Dose 0.5 MG; Start 04/25/19 at 13:30 Hydromorphone HCl (Dilaudid) 1 mg Q4 PRN IV breakthrough pain Last administered on 04/27/19 09:58; Admin Dose 1 MG; Start 04/25/19 at 13:30 Acetaminophen (Tylenol Tab) 500 mg Q4H PRN PO MILD PAIN LEVEL 1-3; Start 04/25/19 at 15:30 Albuterol (Ventolin Hfa) 2 puff Q4H RESP THERAPY INH Last administered on 04/27/19 09:59; Admin Dose 2 PUFF; Start 04/25/19 at 17:00 Allopurinol (Zyloprim) 100 mg DAILY PO Last administered on 04/27/19 09:58; Admin Dose 100 MG; Start 04/26/19 at 09:00 Docusate Sodium (Colace) 100 mg BID PO Last administered on 04/27/19 09:58; Ad min Dose 100 MG; Start 04/25/19 at 21:00 Folic Acid (Folic Acid) 1 mg DAILY PO Last administered on 04/27/19 09:58; Admin Dose 1 MG; Start 04/26/19 at 09:00 Hydralazine HCl (Apresoline) 25 mg Q8H PRN PO FOR SBP OVER 160; Start 04/25/19 at 16:00 Levothyroxine Sodium (Synthroid) 200 mcg BEFORE BREAKFAST PO Last administered on 04/27/19 06:34; Admin Dose 200 MCG; Start 04/26/19 at 07:00 Lorazepam (Ativan) 1 mg HS PRN PO NEEDED; Start 04/25/19 at 15:30 Lubiprostone (Amitiza) 24 mcg BID PO Last administered on 04/27/19 09:58; Admin Dose 24 MCG; Start 04/25/19 at 21:00 Pantoprazole (Protonix Tab) 40 mg AC BREAKFAST PO Last administered on 04/27/19 06:34; Admin Dose 40 MG; Start 04/26/19 at 07:00 Spironolactone (Aldactone) 25 mg DAILY PO Last administered on 04/27/19 09:58; Admin Dose 25 MG; Start 04/26/19 at 09:00 Bumetanide (Bumex) 2 mg BID DIURETICS PO Last administered on 04/27/19 05:17; Admin Dose 2 MG; Start 04/25/19 at 18:00 Thiamine HCl (Vitamin B1) 100 mg DAILY PO ; Start 04/28/19 at 09:00 Multivitamins Therapeutic (Theragran) 1 tab DAILY PO ; Start 04/28/19 at 09:00 Azithromycin 250 ml @ 250 mls/hr Q24H IVPB Last administered on 04/27/19 09:58; Admin Dose 250 MLS/HR; Start 04/26/19 at 10:30 Albuterol/ Ipratropium (Duoneb) 3 ml Q6HWA RESP THERAPY HHN ; Start 04/26/19 at 14:00 Methylprednisolone Sodium Succinate (Solu-Medrol) 40 mg Q12 IV Last administ ered on 04/27/19 09:58; Admin Dose 40 MG; Start 04/26/19 at 21:00 DUSTY CANTU Apr 27, 2019 11:15
[2019-04-27 11:54] VITALS: BP 133/69; PULSE 124; RESP 20
[2019-04-27] MEDS ORDERED: POTASSIUM CHLORIDE 100 ML IVPB STA (11:59)
--- NOTE | 2019-04-27 11:59 | CONS ---
Assessment/Plan Assessment/Plan Assessment/Plan (Daily) 1. TRENT on CKD III due to Type II hepatorenal syndrome 2. possible alcohol withdrawl - resolved 3. anemia of CKD 5. H/o liver cirrhosis 6. H/O HTN 7. h/o Liver cirrhosis with ascites 8. H/o Diastolic CHF 9. Bilateral LE chronic venous stasis 10.H/o BPH on Flomax Plan: BUN/Cr slightly better 38/1.44,K 3.4, [id number] IV X 1 dose today,continue Bumex 2 mg pO BID azithromycin pO for acute bronchitis s/p IV banana bag -EGD done April 2018 showed duodenal ulcer and gastritis -s/p colonoscopy 01/28/19 Flomax 0.4mg po daily for BPH will follow up Consultation Date/Type/Reason Admit Date/Time Apr 25, 2019 at 12:05 Initial Consult Date Requesting Provider: KOKO MARLOW MD Date/Time of Note DATE: 04/27/19 TIME: 11:59 Exam/Review of Systems Exam Vitals Vital Signs Date Temp Pulse Resp B/P (MAP) Pulse Ox O2 O2 Flow FiO2 Time Delivery Rate 04/27/19 97.4 124 20 133/69 96 Room Air 11:54 (90) 04/26/19 21 20:23 04/26/19 2.0 20:00 Intake and Output 04/26/19 04/26/19 04/27/19 1515:00 23:00 07:00 IntakeIntake Total 250 ml 680 ml 300 ml OutputOutput Total 400 ml 2000 ml BalanceBalance 250 ml 280 ml -1700 ml Exam Constitutional: alert, well developed, obese Respiratory: diminished breath sounds (at bases bilaterally) Cardiovascular: nl pulses, other (s1s2) Gastrointestinal: soft, non-tender Musculoskeletal: muscle weakness Extremities: normal pulses 1+ pitting edema, no cyanosis Results Result Diagram: 04/27/19 0457 04/27/19 0457 Results 24hrs Laboratory Tests Test 04/27/19 04:57 White Blood Count 12.2 H Red Blood Count 3.15 L Hemoglobin 7.5 L Hematocrit 26.0 L Mean Corpuscular Volume 82.5 Mean Corpuscular Hemoglobin 23.8 L Mean Corpuscular Hemoglobin Concent 28.8 L Red Cell Distribution Width 21.7 H Platelet Count 111 L Mean Platelet Volume 11.8 H Immature Granulocytes % 1.700 H Neutrophils % 91.3 H Lymphocytes % 2.4 L Monocytes % 4.4 Eosinophils % 0.0 Basophils % 0.2 Nucleated Red Blood Cells % 0.0 Immature Granulocytes # 0.210 H Neutrophils # 11.2 H Lymphocytes # 0.3 L Monocytes # 0.5 Eosinophils # 0.0 Basophils # 0.0 Nucleated Red Blood Cells # 0.0 Sodium Level 134 L Potassium Level 3.2 L Chloride Level 102 Carbon Dioxide Level 20 L Anion Gap 12 Blood Urea Nitrogen 38 H Creatinine 1.44 H Est Glomerular Filtrat Rate mL/min 50 L Glucose Level 157 Calcium Level 7.7 L Total Bilirubin 0.3 Direct Bilirubin 0.00 Indirect Bilirubin 0.3 Aspartate Amino Transf (AST/SGOT) 27 Alanine Aminotransferase (ALT/SGPT) 25 Alkaline Phosphatase 98 Total Protein 5.7 L Albumin 2.9 L Lipase 330 H Medications Medication Current Medications Lorazepam (Ativan) 0.5 mg Q4 PRN IV anxiety Last administered on 04/27/19 09:58; Admin Dose 0.5 MG; Start 04/25/19 at 13:30 Hydromorphone HCl (Dilaudid) 1 mg Q4 PRN IV breakthrough pain Last administered on 04/27/19 09:58; Admin Dose 1 MG; Start 04/25/19 at 13:30 Acetaminophen (Tylenol Tab) 500 mg Q4H PRN PO MILD PAIN LEVEL 1-3; Start 04/25/19 at 15:30 Albuterol (Ventolin Hfa) 2 puff Q4H RESP THERAPY INH Last administered on 04/27/19 09:59; Admin Dose 2 PUFF; Start 04/25/19 at 17:00 Allopurinol (Zyloprim) 100 mg DAILY PO Last administered on 04/27/19 09:58; Admin Dose 100 MG; Start 04/26/19 at 09:00 Docusate Sodium (Colace) 100 mg BID PO Last administered on 04/27/19 09:58; Admin Dose 100 MG; Start 04/25/19 at 21:00 Folic Acid (Folic Acid) 1 mg DAILY PO Last administered on 04/27/19 09:58; Admin Dose 1 MG; Start 04/26/19 at 09:00 Hydralazine HCl (Apresoline) 25 mg Q8H PRN PO FOR SBP OVER 160; Start 04/25/19 at 16:00 Levothyroxine Sodium (Synthroid) 200 mcg BEFORE BREAKFAST PO Last administered on 04/27/19 06:34; Admin Dose 200 MCG; Start 04/26/19 at 07:00 Lorazepam (Ativan) 1 mg HS PRN PO NEEDED; Start 04/25/19 at 15:30 Lubiprostone (Amitiza) 24 mcg BID PO Last administered on 04/27/19 09:58; Admin Dose 24 MCG; Start 04/25/19 at 21:00 Pantoprazole (Protonix Tab) 40 mg AC BREAKFAST PO Last administered on 04/27/19 06:34; Admin Dose 40 MG; Start 04/26/19 at 07:00 Spironolactone (Aldactone) 25 mg DAILY PO Last administered on 04/27/19 09:58; Admin Dose 25 MG; Start 04/26/19 at 09:00 Bumetanide (Bumex) 2 mg BID DIURETICS PO Last administered on 04/27/19at 05:17; Admin Dose 2 MG; Start 04/25/19 at 18:00 Thiamine HCl (Vitamin B1) 100 mg DAILY PO ; Start 04/28/19 at 09:00 Multivitamins Therapeutic (Theragran) 1 tab DAILY PO ; Start 04/28/19 at 09:00 Azithromycin 250 ml @ 250 mls/hr Q24H IVPB Last administered on 04/27/19 09:58; Admin Dose 250 MLS/HR; Start 04/26/19 at 10:30 Albuterol/ Ipratropium (Duoneb) 3 ml Q6HWA RESP THERAPY HHN ; Start 04/26/19 at 14:00 Methylprednisolone Sodium Succinate (Solu-Medrol) 40 mg Q12 IV Last administered on 04/27/19 09:58; Admin Dose 40 MG; Start 04/26/19 at 21:00 Metoprolol Tartrate (Lopressor) 50 mg BID PO ; Start 04/27/19 at 11:30 ELADIO DELGADO MD Apr 27, 2019 11:59
[2019-04-27] MEDS: METOPROLOL 50 MG TAB PO SCH ×2 (14:15→20:33)
[2019-04-27 15:04] VITALS: BP 130/65; RESP 20
--- NOTE | 2019-04-27 17:13 | PN ---
Date/Time of Note Date/Time of Note DATE: 04/27/19 TIME: 17:11 Assessment/Plan VTE Prophylaxis Risk score (from Ns)>0 risk: 4 SCD applied (from [facility] Yes Pharmacological prophylaxis: NA/contraindicated Pharm contraindication: liver dx Lines/Catheters IV [facility]from [facility] Lock Urinary Cath still in place: No Assessment/Plan Hospital Course Patient is awake alert complains of generalized pain occasional shortness of breath distended abdomen patient is currently on clear liquid diet stronger requesting to progress the diet since patient does not have any nausea and vomiting will progress diet to regular. Assessment/Plan -Dyspnea secondary to COPD exacerbation, continue bronchodilators. -Abdominal pain. Dr. Mayes is following in gastroenterology consultation. -Alcoholic liver cirrhosis with abdominal distention possible ascites will order paracentesis. -Acute kidney injury on chronic kidney disease. -Chronic diastolic congestive heart failure. Continue Bumex and Aldactone. -Anemia. -Hypothyroidism, continue levothyroxine -Ongoing alcohol use, cessation is strongly advised. -Nicotine dependence, continue nicotine patch, cessation is strongly advised. -Poor medical compliance. Further recommendations based on clinical course. Plan of care discussed with Dr. Lara. Result Diagram: 04/27/19 0457 04/27/197 Results 24hrs Laboratory Tests Test 04/27/19 04:57 White Blood Count 12.2 H Red Blood Count 3.15 L Hemoglobin 7.5 L Hematocrit 26.0 L Mean Corpuscular Volume 82.5 Mean Corpuscular Hemoglobin 23.8 L Mean Corpuscular Hemoglobin Concent 28.8 L Red Cell Distribution Width 21.7 H Platelet Count 111 L Mean Platelet Volume 11.8 H Immature Granulocytes % 1.700 H Neutrophils % 91.3 H Lymphocytes % 2.4 L Monocytes % 4.4 Eosinophils % 0.0 Basophils % 0.2 Nucleated Red Blood Cells % 0.0 Immature Granulocytes # 0.210 H Neutrophils # 11.2 H Lymphocytes # 0.3 L Monocytes # 0.5 Eosinophils # 0.0 Basophils # 0.0 Nucleated Red Blood Cells # 0.0 Sodium Level 134 L Potassium Level 3.2 L Chloride Level 102 Carbon Dioxide Level 20 L Anion Gap 12 Blood Urea Nitrogen 38 H Creatinine 1.44 H Est Glomerular Filtrat Rate mL/min 50 L Glucose Level 157 Calcium Level 7.7 L Total Bilirubin 0.3 Direct Bilirubin 0.00 Indirect Bilirubin 0.3 Aspartate Amino Transf (AST/SGOT) 27 Alanine Aminotransferase (ALT/SGPT) 25 Alkaline Phosphatase 98 Total Protein 5.7 L Albumin 2.9 L Lipase 330 H Exam/Review of Systems Exam Vitals Vital Signs Date Temp Pulse Resp B/P (MAP) Pulse Ox O2 O2 Flow FiO2 Time Delivery Rate 04/27/19 98.1 20 130/65 90 Room Air 15:04 (86) 04/27/19 124 11:54 04/26/19 21 20:23 04/26/19 2.0 20:00 Intake and Output 04/26/19 04/26/19 04/27/19 1515:00 23:00 07:00 IntakeIntake Total 250 ml 680 ml 300 ml OutputOutput Total 400 ml 2000 ml BalanceBalance 250 ml 280 ml -1700 ml Constitutional: alert, oriented Head: normocephalic Neck: supple Respiratory: diminished breath sounds Cardiovascular: regular rate and rhythm Gastrointestinal: soft, distended Musculoskeletal: nl extremities to inspection Extremities: normal pulses, edema Neurological: nl mental status Results Results 24hrs Laboratory Tests Test 04/27/19 04:57 White Blood Count 12.2 H Red Blood Count 3.15 L Hemoglobin 7.5 L Hematocrit 26.0 L Mean Corpuscular Volume 82.5 Mean Corpuscular Hemoglobin 23.8 L Mean Corpuscular Hemoglobin Concent 28.8 L Red Cell Distribution Width 21.7 H Platelet Count 111 L Mean Platelet Volume 11.8 H Immature Granulocytes % 1.700 H Neutrophils % 91.3 H Lymphocytes % 2.4 L Monocytes % 4.4 Eosinophils % 0.0 Basophils % 0.2 Nucleated Red Blood Cells % 0.0 Immature Granulocytes # 0.210 H Neutrophils # 11.2 H Lymphocytes # 0.3 L Monocytes # 0.5 Eosinophils # 0.0 Basophils # 0.0 Nucleated Red Blood Cells # 0.0 Sodium Level 134 L Potassium Level 3.2 L Chloride Level 102 Carbon Dioxide Level 20 L Anion Gap 12 Blood Urea Nitrogen 38 H Creatinine 1.44 H Est Glomerular Filtrat Rate mL/min 50 L Glucose Level 157 Calcium Level 7.7 L Total Bilirubin 0.3 Direct Bilirubin 0.00 Indirect Bilirubin 0.3 Aspartate Amino Transf (AST/SGOT) 27 Alanine Aminotransferase (ALT/SGPT) 25 Alkaline Phosphatase 98 Total Protein 5.7 L Albumin 2.9 L Lipase 330 H Medications Medication Current Medications Lorazepam (Ativan) 0.5 mg Q4 PRN IV anxiety Last administered on 04/27/19 14:14; Admin Dose 0.5 MG; Start 04/25/19 at 13:30 Hydromorphone HCl (Dilaudid) 1 mg Q4 PRN IV breakthrough pain Last administered on 04/27/19 14:14; Admin Dose 1 MG; Start 04/25/19 at 13:30 Acetaminophen (Tylenol Tab) 500 mg Q4H PRN PO MILD PAIN LEVEL 1-3; Start 04/25/19 at 15:30 Albuterol (Ventolin Hfa) 2 puff Q4H RESP THERAPY INH Last administered on 04/27/19 13:00; Admin Dose 2 PUFF; Start 04/25/19 at 17:00 Allopurinol (Zyloprim) 100 mg DAILY PO Last administered on 04/27/19 09:58; Admin Dose 100 MG; Start 04/26/19 at 09:00 Docusate Sodium (Colace) 100 mg BID PO Last administered on 04/27/19 09:58; Admin Dose 100 MG; Start 04/25/19 at 21:00 Folic Acid (Folic Acid) 1 mg DAILY PO Last administered on 04/27/19 09:58; Admin Dose 1 MG; Start 04/26/19 at 09:00 Hydralazine HCl (Apresoline) 25 mg Q8H PRN PO FOR SBP OVER 160; Start 04/25/19 at 16:00 Levothyroxine Sodium (Synthroid) 200 mcg BEFORE BREAKFAST PO Last administered on 04/27/19 06:34; Admin Dose 200 MCG; Start 04/26/19 at 07:00 Lorazepam (Ativan) 1 mg HS PRN PO NEEDED; Start 04/25/19 at 15:30 Lubiprostone (Amitiza) 24 mcg BID PO Last administered on 04/27/19 09:58; Admin Dose 24 MCG; Start 04/25/19 at 21:00 Pantoprazole (Protonix Tab) 40 mg AC BREAKFAST PO Last administered on 04/27/19 06:34; Admin Dose 40 MG; Start 04/26/19 at 07:00 Spironolactone (Aldactone) 25 mg DAILY PO Last administered on 04/27/19 09:58; Admin Dose 25 MG; Start 04/26/19 at 09:00 Bumetanide (Bumex) 2 mg BID DIURETICS PO Last administered on 04/27/19at 05:17; Admin Dose 2 MG; Start 04/25/19 at 18:00 Thiamine HCl (Vitamin B1) 100 mg DAILY PO ; Start 04/28/19 at 09:00 Multivitamins Therapeutic (Theragran) 1 tab DAILY PO ; Start 04/28/19 at 09:00 Azithromycin 250 ml @ 250 mls/hr Q24H IVPB Last administered on 04/27/19at 09:58; Admin Dose 250 MLS/HR; Start 04/26/19 at 10:30 Albuterol/ Ipratropium (Duoneb) 3 ml Q6HWA RESP THERAPY N ; Start 04/26/19 at 14:00 Methylprednisolone Sodium Succinate (Solu-Medrol) 40 mg Q12 IV Last administered on 04/27/19at 09:58; Admin Dose 40 MG; Start 04/26/19 at 21:00 Metoprolol Tartrate (Lopressor) 50 mg BID PO Last administered on 04/27/19at 14:15; Admin Dose 50 MG; Start 04/27/19 at 11:30 Potassium Chloride (Klor-Con 20) 20 meq BID PO ; Start 04/27/19 at 21:00 MILLICENT GOVEA Apr 27, 2019 17:13
[2019-04-27 20:27] VITALS: BP 134/70; PULSE 94; RESP 18
[2019-04-27] MEDS: POTASSIUM CHLORIDE (SR) 20 MEQ TAB PO SCH (20:31)
--- NOTE | 2019-04-27 22:14 | CONS ---
DATE OF ADMISSION: 04/27/2019 DATE OF CONSULTATION: 04/27/2019 TYPE OF CONSULTATION: Infectious Disease. REASON FOR CONSULTATION: Antibiotic management. HISTORY OF PRESENT ILLNESS: Yvon Milian is a 63-year-old male well known to us from numerous ho spitalizations at [facility], one in 01/2019 which lasted over a month. The patient comes i n now with generalized body aches, abdominal pain and inability to walk. His past problems include: 1. Coronary artery disease with congestive failure. 2. Hypertension. 3. Alcoholic liver cirrhosis. 4. Chronic obstructive pulmonary disease. 5. Hypothyroidism. 6. Tobacco dependence. 7. Alcoholism. 8. ALLERGY TO PENICILLIN, ALTHOUGH THE PATIENT STRONGLY DENIES THIS. 9. Status post left foot surgery, plantar aspect. 10. Abdominal surgery. 11. End-stage renal disease with hemodialysis. 12. Substance abuse with methamphetamine, cocaine, and heroin. Acutely, the patient comes in on 04/25/2019 with generalized body aches. He has been in withdrawal b efore. He is medically noncompliant. He denies fever or shortness of breath. On admission, his whi te count was 13.9 with 71% neutrophils, H and H of 8 and 27, platelet count 127,000. BUN and creatin ine 43/1.64. On admission, he was disheveled and smelled of alcohol. HOSPITAL COURSE: The patient was seen by Dr. Kirk Leung for acute kidney injury on top of chronic renal disease, also chronic diastolic congestive heart failure with BUN and creatinine of 43/1.64. He has disease COPD. Continue bronchodilators. He was also seen by Dr. Foley in cardiology for co ngestive heart failure, diastolic, acute on chronic by echo. His ejection fraction is over 60 to 65% . PHYSICAL EXAMINATION: GENERAL: The patient is alert, responsive, in no acute distress. VITAL SIGNS: Stable. He is afebrile. SKIN: Without generalized rash. HEENT: Within normal limits. NECK: Supple. LYMPH NODES: None palpable. CHEST: Decreased breath sounds at the bases. HEART: Without murmur or gallop. ABDOMEN: Soft, nontender, without organosplenomegaly or masses. EXTREMITIES: Without cyanosis, clubbing, or edema. He has 2+ edema in the lower extremities with bi lateral chronic lower extremity stasis changes. RECTAL AND GENITAL: Deferred. NEUROLOGIC: No focal neurological abnormalities. ANCILLARY LABORATORY DATA: Today his white count is 12.2 with 91% neutrophils. Chest x-ray shows no acute pulmonary process. IMPRESSION AND PLAN: The patient is on methylprednisolone and azithromycin. He has COPD with bronch odilators. At this point, it is unclear that he is infected. He is on only azithromycin. He may villegas ve some degree of bronchitis. If he remains afebrile despite the fact that he is on steroids, we geovanny l stop his antibiotics in the next 24 hours. I will dictate my findings to Dr. Marlow. Dictated By: KRIS MARTINS MD, JD/NILDA Conf#: [id number] DID#: [id number] CC: KOKO MARLOW MD;*End*
[2019-04-28 00:25] VITALS: BP 145/67; PULSE 89; RESP 18
[2019-04-28] MEDS: ALBUTEROL HFA 8 GM INHALER INH SCH ×3 (01:00→06:13)
[2019-04-28] MEDS: LORAZEPAM 2 MG INJ IV PRN (03:40)
[2019-04-28] MEDS: HYDROmorphONE 1 MG/ML SYG IV PRN ×2 (03:44→08:38)
[2019-04-28 06:15] VITALS: BP 137/69; PULSE 106; RESP 18
[2019-04-28] MEDS: LEVOTHYROXINE 100 MCG TAB PO SCH (06:16)
[2019-04-28] MEDS: BUMETANIDE 1 MG TAB PO SCH (06:16)
[2019-04-28] MEDS: PANTOPRAZOLE (EC) 40 MG TAB PO SCH (06:16)
[2019-04-28 07:43] VITALS: BP 153/82; PULSE 110; RESP 20
[2019-04-28] MEDS: METHYLPREDNISOLONE 40 MG INJ IV SCH (08:36)
[2019-04-28] MEDS: DOCUSATE SODIUM 100 MG CAP PO SCH (08:37)
[2019-04-28] MEDS: FOLIC ACID 1 MG TAB PO SCH (08:37)
[2019-04-28] MEDS: ALLOPURINOL 100 MG TAB PO SCH (08:37)
[2019-04-28] MEDS: POTASSIUM CHLORIDE (SR) 20 MEQ TAB PO SCH (08:37)
[2019-04-28] MEDS: LUBIPROSTONE 24 MCG CAP PO SCH (08:37)
[2019-04-28] MEDS: SPIRONOLACTONE 25 MG TAB PO SCH (08:37)
[2019-04-28] MEDS: METOPROLOL 50 MG TAB PO SCH (08:38)
--- NOTE | 2019-04-28 08:45 | CONS ---
Consult Date/Type/Reason Admit Date/Time Apr 27, 2019 at 12:16 Initial Consult Date Requesting Provider: KOKO MARLOW MD Date/Time of Note DATE: 04/28/19 TIME: 08:42 Subjective NO acute events - con't gentle diureses -no CP now. ROS: No fever, no chills, no nausea, no vomiting, no diarrhea/constipation No recent weight changes No chest pain, no PND, no orthopnea - improved SOB No dizziness, blurred vision No thirst, no heat or cold intolerance Objective Vitals Vital Signs Date Temp Pulse Resp B/P (MAP) Pulse Ox O2 O2 Flow FiO2 Time Delivery Rate 04/28/19 97.8 110 20 153/82 96 Room Air 07:43 (105) 04/27/19 2.0 08:05 04/26/19 21 20:23 Intake and Output 04/27/19 04/27/19 04/28/19 1515:00 23:00 07:00 IntakeIntake Total 800 ml 400 ml 400 ml OutputOutput Total 425 ml 655 ml BalanceBalance 375 ml -255 ml 400 ml Exam General: WN/WD/NAD, AOx 2-3 HEENT: Unicetric/atraumatic/EOMI (follow commands) NECK: JVD elevated, no thyromegaly Lymph: no lymphadenopathy HEART: regular with no S3, II/ systolic murmur at apex LUNGS: Coarse sounds ABD: soft, NT, ND, +BS : Intact Neuro: non focal SKIN: chronic changes EXT: 1-2 + edema Results/Medications Result Diagram: 04/27/1945604/27/19456 Home Meds Reported Medications Oxycodone Hcl* (Oxycontin*) 10 Mg Tab.sr.12h, 10 MG PO TID PRN for PAIN, TAB 04/25/19 Lubiprostone* (Amitiza*) 24 Mcg Capsule, 24 MCG PO BID, #60 CAP 03/12/19 Spironolactone* (Aldactone*) 25 Mg Tablet, 25 MG PO DAILY, #30 TAB 03/12/19 Pantoprazole* (Pantoprazole*) 40 Mg Tablet.dr, 40 MG PO AC BREAKFAST, TAB 03/12/19 Levothyroxine Sodium* (Levothyroxine Sodium*) 200 Mcg Tablet, 200 MCG PO BEFORE BREAKFAST, #30 TAB 03/12/19 Docusate Sodium* (Colace*) 100 Mg Capsule, 100 MG PO BID, #60 CAP 03/12/19 Lorazepam* (Lorazepam*) 1 Mg Tablet, 1 MG PO HS PRN for NEEDED, #30 TAB 03/12/19 Albuterol Sulfate* (Ventolin HFA*) 18 Gm Hfa.aer.ad, 2 PUFF INHALATION Q4H, #1 INHALER 03/12/19 Metoprolol Succinate* (Toprol XL*) 50 Mg Tab.er.24h, 50 MG PO DAILY, #30 TAB 03/12/19 Bumetanide* (Bumetanide*) 2 Mg Tablet, 2 MG PO BID, TAB 03/12/19 Allopurinol* (Allopurinol*) 100 Mg Tablet, 100 MG PO DAILY, TAB 03/12/19 Folic Acid* (Folic Acid*) 1 Mg Tablet, 1 MG PO DAILY, TAB 03/12/19 Hydralazine Hcl* (Hydralazine Hcl*) 25 Mg Tab, 25 MG PO Q8 PRN for PRN, #90 TAB 03/12/19 Acetaminophen* (Acetaminophen*) 500 MG Extra Strength Tablet, 500 MG PO Q4H PRN for MILD PAIN LEVEL 1-3, TAB 01/11/19 Discontinued Reported Medications Oxycodone Hcl* (Oxycontin*) 10 Mg Tab.sr.12h, 10 MG PO NEEDED, TAB 03/12/19 Medications Current Medications Lorazepam (Ativan) 0.5 mg Q4 PRN IV anxiety Last administered on 04/28/19at 03:40; Admin Dose 0.5 MG; Start 04/25/19 at 13:30 Hydromorphone HCl (Dilaudid) 1 mg Q4 PRN IV breakthrough pain Last administered on 04/28/19at 08:38; Admin Dose 1 MG; Start 04/25/19 at 13:30 Acetaminophen (Tylenol Tab) 500 mg Q4H PRN PO MILD PAIN LEVEL 1-3; Start 04/25/19 at 15:30 Albuterol (Ventolin Hfa) 2 puff Q4H RESP THERAPY INH Last administered on 04/28/19at 06:13; Admin Dose 2 PUFF; Start 04/25/19 at 17:00 Allopurinol (Zyloprim) 100 mg DAILY PO Last administered on 04/28/19 08:37; Admin Dose 100 MG; Start 04/26/19 at 09:00 Docusate Sodium (Colace) 100 mg BID PO Last administered on 04/28/19 08:37; Admin Dose 100 MG; Start 04/25/19 at 21:00 Folic Acid (Folic Acid) 1 mg DAILY PO Last administered on 04/28/19 08:37; Admin Dose 1 MG; Start 04/26/19 at 09:00 Hydralazine HCl (Apresoline) 25 mg Q8H PRN PO FOR SBP OVER 160; Start 04/25/19 at 16:00 Levothyroxine Sodium (Synthroid) 200 mcg BEFORE BREAKFAST PO Last administered on 04/28/19 06:16; Admin Dose 200 MCG; Start 04/26/19 at 07:00 Lorazepam (Ativan) 1 mg HS PRN PO NEEDED; Start 04/25/19 at 15:30 Lubiprostone (Amitiza) 24 mcg BID PO Last administered on 04/28/19 08:37; Admin Dose 24 MCG; Start 04/25/19 at 21:00 Pantoprazole (Protonix Tab) 40 mg AC BREAKFAST PO Last administered on 04/28/19 06:16; Admin Dose 40 MG; Start 04/26/19 at 07:00 Spironolactone (Aldactone) 25 mg DAILY PO Last administered on 04/28/19 08:37; Admin Dose 25 MG; Start 04/26/19 at 09:00 Bumetanide (Bumex) 2 mg BID DIURETICS PO Last administered on 04/28/19 06:16; Admin Dose 2 MG; Start 04/25/19 at 18:00 Thiamine HCl (Vitamin B1) 100 mg DAILY PO Last administered on 04/28/19 08:37; Admin Dose 100 MG; Start 04/28/19 at 09:00 Multivitamins Therapeutic (Theragran) 1 tab DAILY PO Last administered on 04/28/19 08:37; Admin Dose 1 TAB; Start 04/28/19 at 09:00 Azithromycin 250 ml @ 250 mls/hr Q24H IVPB Last administered on 04/27/19 09:58; Admin Dose 250 MLS/HR; Start 04/26/19 at 10:30 Albuterol/ Ipratropium (Duoneb) 3 ml Q6HWA RESP THERAPY HHN ; Start 04/26/19 at 14:00 Methylprednisolone Sodium Succinate (Solu-Medrol) 40 mg Q12 IV Last adminis tered on 04/28/19at 08:36; Admin Dose 40 MG; Start 04/26/19 at 21:00 Metoprolol Tartrate (Lopressor) 50 mg BID PO Last administered on 04/28/19at 08:38; Admin Dose 50 MG; Start 04/27/19 at 11:30 Potassium Chloride (Klor-Con 20) 20 meq BID PO Last administered on 04/28/19at 08:37; Admin Dose 20 MEQ; Start 04/27/19 at 21:00 Assessment/Plan Hospital Course (Demo Recall) 1.CHF-diastolic acute on chronic by echo 01/23 with EF 60-65% - con't gentle diuresis. 2.HTN - better controlled now. 3.Renal failure - CR 1.44 - will monitor clinically now 4.Cirrhosis/ascites - gI follows 5.loose stools - better now 6.anemia - down to 7.5 - primary team follows 7. Tobacco dependence 8. ETOH dependence - d/c advised 9. Tachycardia-S tach at this time - rate reasonably controlled at rest 10.COPD HALEY LIRIANO MD Apr 28, 2019 08:45
[2019-04-28] MEDS: ALBUTEROL/IPRATROPIUM (NEB) 3 ML AMP HHN SCH (08:50)
[2019-04-28] MEDS ORDERED: THIAMINE 100 MG TAB PO SCH (09:00)
[2019-04-28] MEDS ORDERED: MULTIVITAMINS THERAPEUTIC TAB PO SCH (09:00)
[2019-04-28] MEDS: AZITHROMYCIN 500MG/NS (PMX) 250 ML IVPB SCH (11:34)
--- NOTE | 2019-04-28 11:35 | CONS ---
Assessment/Plan Assessment/Plan Assessment/Plan (Daily) 1. TRENT on CKD III due to Type II hepatorenal syndrome 2. possible alcohol withdrawl - resolved 3. anemia of CKD 5. H/o liver cirrhosis 6. H/O HTN 7. h/o Liver cirrhosis with ascites 8. H/o Diastolic CHF 9. Bilateral LE chronic venous stasis 10.H/o BPH on Flomax Plan: BUN/Cr slightly better 38/1.44,K 3.4, [id number] IV X 1 dose given yesterday. no labs available today yet- ,continue Bumex 2 mg pO BID ,aldactone 25 mg po daily BMP stat ordered for today azithromycin pO for acute bronchitis s/p IV banana bag -EGD done April 2018 showed duodenal ulcer and gastritis -s/p colonoscopy 01/28/19 Flomax 0.4mg po daily for BPH will follow up Consultation Date/Type/Reason Admit Date/Time Apr 27, 2019 at 12:16 Initial Consult Date Requesting Provider: KOKO MARLOW MD Date/Time of Note DATE: 04/28/19 TIME: 11:33 Exam/Review of Systems Exam Vitals Vital Signs Date Temp Pulse Resp B/P (MAP) Pulse Ox O2 O2 Flow FiO2 Time Delivery Rate 04/28/19 101 20 99 21 08:51 04/28/19 97.8 153/82 Room Air 07:43 (105) 04/27/19 2.0 08:05 Intake and Output 04/27/19 04/27/19 04/28/19 1515:00 23:00 07:00 IntakeIntake Total 800 ml 400 ml 400 ml OutputOutput Total 425 ml 655 ml BalanceBalance 375 ml -255 ml 400 ml Exam Constitutional: alert, well developed, obese Respiratory: diminished breath sounds (at bases bilaterally) Cardiovascular: nl pulses, other (s1s2) Gastrointestinal: soft, non-tender Musculoskeletal: muscle weakness Extremities: normal pulses 1+ pitting edema, no cyanosis Results Result Diagram: 04/27/1945604/27/19456 Medications Medication Current Medications Lorazepam (Ativan) 0.5 mg Q4 PRN IV anxiety Last administered on 04/28/19at 03 :40; Admin Dose 0.5 MG; Start 04/25/19 at 13:30 Hydromorphone HCl (Dilaudid) 1 mg Q4 PRN IV breakthrough pain Last administered on 04/28/19 08:38; Admin Dose 1 MG; Start 04/25/19 at 13:30 Acetaminophen (Tylenol Tab) 500 mg Q4H PRN PO MILD PAIN LEVEL 1-3; Start 04/25/19 at 15:30 Albuterol (Ventolin Hfa) 2 puff Q4H RESP THERAPY INH Last administered on 04/28/19 06:13; Admin Dose 2 PUFF; Start 04/25/19 at 17:00 Allopurinol (Zyloprim) 100 mg DAILY PO Last administered on 04/28/19 08:37; Admin Dose 100 MG; Start 04/26/19 at 09:00 Docusate Sodium (Colace) 100 mg BID PO Last administered on 04/28/19 08:37; Admin Dose 100 MG; Start 04/25/19 at 21:00 Folic Acid (Folic Acid) 1 mg DAILY PO Last administered on 04/28/19 08:37; Admin Dose 1 MG; Start 04/26/19 at 09:00 Hydralazine HCl (Apresoline) 25 mg Q8H PRN PO FOR SBP OVER 160; Start 04/25/19 at 16:00 Levothyroxine Sodium (Synthroid) 200 mcg BEFORE BREAKFAST PO Last administered on 04/28/19 06:16; Admin Dose 200 MCG; Start 04/26/19 at 07:00 Lorazepam (Ativan) 1 mg HS PRN PO NEEDED; Start 04/25/19 at 15:30 Lubiprostone (Amitiza) 24 mcg BID PO Last administered on 04/28/19 08:37; Admin Dose 24 MCG; Start 04/25/19 at 21:00 Pantoprazole (Protonix Tab) 40 mg AC BREAKFAST PO Last administered on 04/28/19 06:16; Admin Dose 40 MG; Start 04/26/19 at 07:00 Spironolactone (Aldactone) 25 mg DAILY PO Last administered on 04/28/19 08:37; Admin Dose 25 MG; Start 04/26/19 at 09:00 Bumetanide (Bumex) 2 mg BID DIURETICS PO Last administered on 04/28/19 06:16; Admin Dose 2 MG; Start 04/25/19 at 18:00 Thiamine HCl (Vitamin B1) 100 mg DAILY PO Last administered on 04/28/19 08:37; Admin Dose 100 MG; Start 04/28/19 at 09:00 Multivitamins Therapeutic (Theragran) 1 tab DAILY PO Last administered on 04/28/19 08:37; Admin Dose 1 TAB; Start 04/28/19 at 09:00 Azithromycin 250 ml @ 250 mls/hr Q24H IVPB Last administered on 04/27/19 09:58; Admin Dose 250 MLS/HR; Start 04/26/19 at 10:30 Albuterol/ Ipratropium (Duoneb) 3 ml Q6HWA RESP THERAPY HHN Last administered on 04/28/19 08:50; Admin Dose 3 ML; Start 04/26/19 at 14:00 Methylprednisolone Sodium Succinate (Solu-Medrol) 40 mg Q12 IV Last administered on 04/28/19 08:36; Admin Dose 40 MG; Start 04/26/19 at 21:00 Metoprolol Tartrate (Lopressor) 50 mg BID PO Last administered on 04/28/19 08:38; Admin Dose 50 MG; Start 04/27/19 at 11:30 Potassium Chloride (Klor-Con 20) 20 meq BID PO Last administered on 04/28/19 08:37; Admin Dose 20 MEQ; Start 04/27/19 at 21:00 ELADIO DELGADO MD Apr 28, 2019 11:35
[2019-04-28 11:59] VITALS: BP 147/74; PULSE 98; RESP 20
[2019-04-28 12:03] VITALS: BP 102/54; RESP 20
--- NOTE | 2019-04-28 14:28 | PN ---
DATE: 04/28/2019 SUBJECTIVE: Patient is alert, eating lunch. Asking for his wheelchair. No fevers overnight. No la bs this morning. PHYSICAL EXAMINATION: GENERAL: This is well-developed, elderly man who is awake, in no distress. HEENT: Head atraumatic, normocephalic. NECK: Supple. CHEST: Rise symmetrical. Breath sounds diminished to bases. HEART: S1, S2. ABDOMEN: Soft, bowel tones present. EXTREMITIES: With chronic venous stasis bilateral lower extremities. ASSESSMENT: 1. Chronic obstructive pulmonary disease exacerbation. 2. Alcoholic liver cirrhosis. 3. Acute on chronic kidney disease. 4. Congestive heart failure. 5. Alcohol and nicotine abuse. 6. Medical noncompliance. PLAN: The patient remains stable on Zithromax, which we will continue. Dictated By: MELISSA NASH ATTENDANT [employer] for KRIS MARTINS MD NI/NTS Conf#: [id number] DID#: [id number] CC: KOKO MARLOW MD;*EndCC*
--- NOTE | 2019-05-17 18:49 | DS ---
Date/Time of Note Date/Time of Note DATE: 05/17/19 TIME: 18:47 Discharge Summary Admission/Discharge Info Admit Date/Time Apr 27, 2019 at 12:16 Discharge Date/Time Apr 28, 2019 at 12:52 Hx of Present Illness Patient is a 63-year-old male with history of congestive heart failure, hypertension, alcoholic liver cirrhosis, COPD, hypothyroidism, tobacco dependence and ongoing alcohol use presents for generalized body aches, N/V, abd. pain and SOB. Hospital Course Patient left AMA. -Dyspnea secondary to COPD exacerbation, continue bronchodilators. -Abdominal pain. Dr. Mayes is following in gastroenterology consultation. -Alcoholic liver cirrhosis with abdominal distention possible ascites will order paracentesis. -Acute kidney injury on chronic kidney disease. -Chronic diastolic congestive heart failure. Continue Bumex and Aldactone. -Anemia. -Hypothyroidism, continue levothyroxine -Ongoing alcohol use, cessation is strongly advised. -Nicotine dependence, continue nicotine patch, cessation is strongly advised. -Poor medical compliance. Plan of care discussed with Dr. Lara. Home Meds Reported Medications Oxycodone Hcl* (Oxycontin*) 10 Mg Tab.sr.12h, 10 MG PO TID PRN for PAIN, TAB 04/25/19 Lubiprostone* (Amitiza*) 24 Mcg Capsule, 24 MCG PO BID, #60 CAP 03/12/19 Spironolactone* (Aldactone*) 25 Mg Tablet, 25 MG PO DAILY, #30 TAB 03/12/19 Pantoprazole* (Pantoprazole*) 40 Mg Tablet.dr, 40 MG PO AC BREAKFAST, TAB 03/12/19 Levothyroxine Sodium* (Levothyroxine Sodium*) 200 Mcg Tablet, 200 MCG PO BEFORE BREAKFAST, #30 TAB 03/12/19 Docusate Sodium* (Colace*) 100 Mg Capsule, 100 MG PO BID, #60 CAP 03/12/19 Lorazepam* (Lorazepam*) 1 Mg Tablet, 1 MG PO HS PRN for NEEDED, #30 TAB 03/12/19 Albuterol Sulfate* (Ventolin HFA*) 18 Gm Hfa.aer.ad, 2 PUFF INHALATION Q4H, #1 INHALER 03/12/19 Metoprolol Succinate* (Toprol XL*) 50 Mg Tab.er.24h, 50 MG PO DAILY, #30 TAB 03/12/19 Bumetanide* (Bumetanide*) 2 Mg Tablet, 2 MG PO BID, TAB 03/12/19 Allopurinol* (Allopurinol*) 100 Mg Tablet, 100 MG PO DAILY, TAB 03/12/19 Folic Acid* (Folic Acid*) 1 Mg Tablet, 1 MG PO DAILY, TAB 03/12/19 Hydralazine Hcl* (Hydralazine Hcl*) 25 Mg Tab, 25 MG PO Q8 PRN for PRN, #90 TAB 03/12/19 Discontinued Reported Medications Acetaminophen* (Acetaminophen*) 500 MG Extra Strength Tablet, 500 MG PO Q4H PRN for MILD PAIN LEVEL 1-3, TAB 01/11/19 Primary Care Provider Brandon Lara MD Time spent on discharge: < 30 minutes MILLICENT GOVEA May 17, 2019 18:49
== END 2019-04-28 12:52 | disposition left against medical advice (07) | DRG 432 ==
LOC: E/R 08:55 → 6WM 12:05 → OBSVTOIN 04-27 12:16
PROVIDERS: ADMIT Internal Medicine; ATTEND Internal Medicine
DX: K70.30 Alcoholic cirrhosis of liver without ascites (principal); K76.7 Hepatorenal syndrome; I50.33 Acute on chronic diastolic (congestive) heart failure; I13.0 Hypertensive heart and chronic kidney disease with heart failure and stage 1 through stage 4 chronic kidney disease, or unspecified chronic kidney disease; N17.9 Acute kidney failure, unspecified; J44.0 Chronic obstructive pulmonary disease with (acute) lower respiratory infection; J44.1 Chronic obstructive pulmonary disease with (acute) exacerbation; J20.9 Acute bronchitis, unspecified; F10.10 Alcohol abuse, uncomplicated; N18.9 Chronic kidney disease, unspecified; D63.1 Anemia in chronic kidney disease; I87.8 Other specified disorders of veins; N40.0 Benign prostatic hyperplasia without lower urinary tract symptoms; E03.9 Hypothyroidism, unspecified; F17.200 Nicotine dependence, unspecified, uncomplicated; Z91.19 Patient's noncompliance with other medical treatment and regimen
CPT/HCPCS: 71045; 80048; 80053; 80061; 80076; 83690; 83880; 84484; 85025; 85610; 93005; 94640; 94664; G0378; J0456; J1170; J2060; J2920; J2930; J3411; J3480; J7030

== ENCOUNTER 2019-05-12 21:40 | Inpatient (IN) | payer BC ==
[~2019-05-12] VITALS: Ht 188 cm; Wt 102.0 kg
[2019-05-12] MEDS ORDERED: IPRATROPIUM (NEB) 0.5 MG/2.5 ML AMP INH STA (22:38)
[2019-05-12] MEDS ORDERED: ALBUTEROL 0.083% (NEB) 2.5 MG/3 ML AMP INH STA (22:38)
[2019-05-12] MEDS ORDERED: LEVOFLOXACIN 750MG/D5W (PMX) 150 ML IVPB STA (22:44)
[2019-05-12] MEDS ORDERED: metroNIDAZOLE 500 MG/NS (PMX) 100 ML IVPB STA (22:44)
[2019-05-12] MEDS ORDERED: HYDROmorphONE 2 MG/ML SYG IV STA (22:44)
[2019-05-12] MEDS ORDERED: VANCOMYCIN 1 GM (PMX) 250 ML IVPB STA (22:44)
[2019-05-12] MEDS ORDERED: ONDANSETRON 4 MG INJ IV STA (22:44)
[2019-05-12] MEDS ORDERED: LORAZEPAM 2 MG INJ IV ONE (23:00)
[2019-05-13] MEDS ORDERED: ONDANSETRON 4 MG INJ IV PRN ×2 (01:00→04:30)
[2019-05-13] MEDS ORDERED: ACETAMINOPHEN 325 MG TAB PO PRN (01:00)
--- NOTE | 2019-05-13 02:12 | ERD ---
ER Documentation Chief Complaint Chief Complaint C/O SOB AND COUGH W/ MUCUS X1 WEEK, HX CHF, LT CHEEK SWELLING X5 DAYS HPI Is a 63-year-old male who complains of shortness of breath and cough and mucus for 1 week. Patient has history of CHF. Also with a left cheek swelling for the past 5 days. He feels that this is likely an odontogenic infection from the tooth. He denies any nausea vomiting. Denies any fevers or chills. Denies any other current complaints. ROS All systems reviewed and are negative except as per history of present illness. Medications Home Meds Reported Medications Oxycodone Hcl* (Oxycontin*) 10 Mg Tab.sr.12h, 10 MG PO TID PRN for PAIN, TAB 04/25/19 Lubiprostone* (Amitiza*) 24 Mcg Capsule, 24 MCG PO BID, #60 CAP 03/12/19 Spironolactone* (Aldactone*) 25 Mg Tablet, 25 MG PO DAILY, #30 TAB 03/12/19 Pantoprazole* (Pantoprazole*) 40 Mg Tablet.dr, 40 MG PO AC BREAKFAST, TAB 03/12/19 Levothyroxine Sodium* (Levothyroxine Sodium*) 200 Mcg Tablet, 200 MCG PO BEFORE BREAKFAST, #30 TAB 03/12/19 Docusate Sodium* (Colace*) 100 Mg Capsule, 100 MG PO BID, #60 CAP 03/12/19 Lorazepam* (Lorazepam*) 1 Mg Tablet, 1 MG PO HS PRN for NEEDED, #30 TAB 03/12/19 Albuterol Sulfate* (Ventolin HFA*) 18 Gm Hfa.aer.ad, 2 PUFF INHALATION Q4H, #1 INHALER 03/12/19 Metoprolol Succinate* (Toprol XL*) 50 Mg Tab.er.24h, 50 MG PO DAILY, #30 TAB 03/12/19 Bumetanide* (Bumetanide*) 2 Mg Tablet, 2 MG PO BID, TAB 03/12/19 Allopurinol* (Allopurinol*) 100 Mg Tablet, 100 MG PO DAILY, TAB 03/12/19 Folic Acid* (Folic Acid*) 1 Mg Tablet, 1 MG PO DAILY, TAB 03/12/19 Hydralazine Hcl* (Hydralazine Hcl*) 25 Mg Tab, 25 MG PO Q8 PRN for PRN, #90 TAB 03/12/19 Discontinued Reported Medications Acetaminophen* (Acetaminophen*) 500 MG Extra Strength Tablet, 500 MG PO Q4H PRN for MILD PAIN LEVEL 1-3, TAB 01/11/19 Allergies Allergies: Coded Allergies: Penicillins (Unverified Allergy, Unknown, 05/13/19) Patient strongly denies being allegic to PCN. He states, "I took that damn allergy band off. I'm not allergic to penicillen!" PMhx/Soc History of Surgery: Yes (LEFT FOOT SURGERY ( PLANTAR ASPECT ), ABDOMINAL SURGERY ) Anesthesia Reaction: No Hx Neurological Disorder: No Hx Respiratory Disorders: Yes (COPD , BRONCHITIS ) Hx Cardiac Disorders: Yes (HTN , CHF ) Hx Psychiatric Problems: Yes (depression) Hx Miscellaneous Medical Probl: Yes (substance use: meth, cocaine, heroin, tobacco) Hx Alcohol Use: Yes Hx Substance Use: Yes (METH, COCAINE , HEROIN ) Hx Tobacco Use: Yes Smoking Status: Current every day smoker Physical Exam Vitals Vital Signs Date Temp Pulse Resp B/P (MAP) Pulse Ox O2 O2 Flow FiO2 Time Delivery Rate 05/12/19 95 20 95 21 22:50 05/12/19 97.3 105 24 145/69 99 21:59 (94) Physical Exam Const: No acute distress Head: Atraumatic Eyes: Normal Conjunctiva ENT: Normal External Ears, Nose and Mouth. Neck: Full range of motion. No meningismus. Resp: Clear to auscultation bilaterally Cardio: Regular rate and rhythm, no murmurs Abd: Soft, non tender, non distended. Normal bowel sounds Skin: No petechiae or rashes Back: No midline or flank tenderness Ext: No cyanosis, or edema Neur: Awake and alert Psych: Normal Mood and Affect Result Diagram: 05/12/19 2310 05/12/19 231 Results 24 hrs Laboratory Tests Test 05/12/19 23:10 05/13/19 00:49 White Blood Count 18.4 10^3/ul Red Blood Count 4.05 10^6/ul Hemoglobin 8.6 g/dl Hematocrit 30.5 % Mean Corpuscular Volume 75.3 fl Mean Corpuscular Hemoglobin 21.2 pg Mean Corpuscular Hemoglobin Concent 28.2 g/dl Red Cell Distribution Width 20.9 % Platelet Count 292 10^3/UL Mean Platelet Volume 11.0 fl Immature Granulocytes % 1.100 % Neutrophils % 65.1 % Lymphocytes % 11.0 % Monocytes % 18.3 % Eosinophils % 1.3 % Basophils % 3.2 % Nucleated Red Blood Cells % 0.0 /100WBC Immature Granulocytes # 0.200 10^3/ul Neutrophils # 12.0 10^3/ul Lymphocytes # 2.0 10^3/ul Monocytes # 3.4 10^3/ul Eosinophils # 0.2 10^3/ul Basophils # 0.6 10^3/ul Nucleated Red Blood Cells # 0.0 10^3/ul Prothrombin Time 14.9 Sec Prothrombin Time Ratio 1.2 INR International Normalized Ratio 1.16 Activated Partial Thromboplast Time 32.3 Sec Sodium Level 139 mmol/L Potassium Level 3.6 mmol/L Chloride Level 105 mmol/L Carbon Dioxide Level 22 mmol/L Anion Gap 12 Blood Urea Nitrogen 22 mg/dl Creatinine 1.45 mg/dl Est Glomerular Filtrat Rate mL/min 49 mL/min Glucose Level 100 mg/dl POC Venous Lactate 2.1 mmol/L Calcium Level 7.7 mg/dl Total Bilirubin 0.5 mg/dl Direct Bilirubin 0.00 mg/dl Indirect Bilirubin 0.5 mg/dl Aspartate Amino Transf (AST/SGOT) 31 IU/L Alanine Aminotransferase (ALT/SGPT) 26 IU/L Alkaline Phosphatase 126 IU/L Troponin I < 0.012 ng/ml B-Type Natriuretic Peptide 239 PG/ML Total Protein 6.8 g/dl Albumin 3.6 g/dl Globulin 3.20 g/dl Albumin/Globulin Ratio 1.12 Lactic Acid Level 2.3 mmol/L Current Medications Medications Dose Sig/Trevor Start Time Status Last (Trade) Ordered Route PRN Stop Time Admin Dose Reason Admin Albuterol 5 mg ONCE STAT 05/12/19 DC 05/12/19 (Proventil INH 22:38 05/12/19 22:50 0.083% (Neb)) 22:40 Ipratropium 0.5 mg ONCE STAT 05/12/19 DC 05/12/19 [place] INH 22:38 05/12/19 22:50 (Atrovent 22:40 0.02% (Neb)) 100 ml @ ONCE STAT 05/12/19 DC 05/12/19 Metronidazole 100 mls/hr IVPB 22:44 8/6/19 23:17 23:43 150 ml @ ONCE STAT 05/12/19 DC 05/12/19 Levofloxacin/ 100 mls/hr IVPB 22:44 05/13/19 23:50 Dextrose 00:13 Vancomycin 250 ml @ ONCE STAT 05/12/19 DC 05/13/19 HCl 125 mls/hr IVPB 22:44 05/13/19 00:16 00:43 1 mg ONCE STAT 05/12/19 DC 05/12/19 Hydromorphone IV 22:44 05/12/19 23:14 HCl 22:46 (Dilaudid) Ondansetron 4 mg ONCE STAT 05/12/19 DC 05/12/19 HCl (Zofran IV 22:44 05/12/19 23:14 Inj) 22:46 Lorazepam 1 mg ONCE ONCE 05/12/19 DC 05/12/19 (Ativan) IV 23:00 05/12/19 23:14 23:01 Ondansetron 4 mg ER BRIDGE 05/13/19 HCl (Zofran PRN IV 01:00 05/14/19 Inj) NAUSEA/VOMITI 00:59 NG 650 mg ER BRIDGE 05/13/19 Acetaminophen PRN PO 01:00 05/14/19 (Tylenol .MILD PAIN 00:59 Tab) 1-3 OR TEMP Procedures/MDM Patient's infectious symptoms have not stabilized and the patient is at risk of rapid decompensation. The patient will be admitted for careful hydration, antibiotic therapy, and infectious source control. Severe Sepsis Assessment: Infectious Source: Likely odontogenic End organ damage indicated by: [Lactate > 2.0 mmol/L Severe Sepsis Managment: Blood Cultures X 2 before broad spectrum antibiotics initiated within 3 hours of recognition. Recognized at 2245 30 ml/kg NS bolus withheld secondary to his history of severe CHF with cardiomyopathy and baseline shortness of breath secondary to before stated Initial Lactate: 2.1 Repeat Lactate 2.3 Critical Care: Time: 45 minutes, independent of any separately billable procedural time Treatments/Evaluations: Emergent fluid management, while maintaining close respiratory support. Immediate broad spectrum antibiotic therapy. Simultaneous assessment for possible sources in order to direct therapy. Consideration for invasive and chemical support to prevent respiratory or cardiac collapse. Septic Shock Assessment (1 hour post 30 ml/kg fluid bolus): Hypotension (SBP < 90 or 40 mmHg drop, MAP < 65): No Lactic acid > 4.0 no Perfusion Reassessment for Septic Shock: Temp 98.6, respiratory rate 24, heart rate 104, O2 sat 96% on 2 L Heart Exam: Tachycardic Lung Exam: No Crackles Capillary Refill: Delayed Peripheral Pulses: Radially present Skin: Mottled, pale Accepting Care Team: Current data and ongoing care discussed. Time: 11 PM Primary Provider: Dr. Phan who is on-call for primary Consulting: Deferred to inpatient team Outstanding Data: none EKG: Rate/Rhythm: Sinus tachycardia at 104 QRS, ST, T-waves: No changes consistent w/ acute ischemia Impression: No evidence of ischemia or arrhythmia Chest X-ray 1V Interpreted by me: Soft Tissue: No acute abnormalit ies Bones: No acute abnormalities Mediastinum/Cardiac Silhouette/Lungs: No acute abnormalities Departure Diagnosis: Primary Impression: Sepsis Sepsis type: sepsis due to unspecified organism Sepsis acute organ dysfunction status: without acute organ dysfunction Qualified Codes: A41.9 - Sepsis, unspecified organism Condition: Serious IRMA YOUSIF May 13, 2019 02:12
[2019-05-13] MEDS ORDERED: LORAZEPAM 2 MG INJ IV ONE (02:30)
[2019-05-13 03:36] VITALS: Ht 188 cm; Wt 102.0 kg
[2019-05-13 04:00] VITALS: BP 120/58; PULSE 127; RESP 19
[2019-05-13] MEDS: HYDROmorphONE 1 MG/ML SYG IV PRN ×4 (06:14→23:05)
[2019-05-13] MEDS: FUROSEMIDE 20 MG INJ IV SCH ×2 (06:15→18:12)
[2019-05-13 07:20] VITALS: BP 119/63; RESP 20
[2019-05-13] MEDS: POTASSIUM CHLORIDE (SR) 20 MEQ TAB PO SCH (08:55)
--- NOTE | 2019-05-13 10:25 | HP ---
Date/Time of Note Date/Time of Note DATE: 05/13/19 TIME: 10:23 Assessment/Plan VTE Prophylaxis Pharmacological prophylaxis: LMWH Lines/Catheters IV Catheter Type (from Nrsg): Saline Lock Assessment/Plan Hospital Course 1) CHF - IV lasix - consult cardiology 2) bronchitis - IV antibiotics 3) COPD - breathing treatment Result Diagram: 05/12/19 2310 05/12/19 2310 Results 24hrs Laboratory Tests Test 05/12/19 23:10 05/13/19 00:49 05/13/19 03:40 White Blood Count 18.4 #H Red Blood Count 4.05 #L Hemoglobin 8.6 L Hematocrit 30.5 L Mean Corpuscular Volume 75.3 L Mean Corpuscular Hemoglobin 21.2 L Mean Corpuscular Hemoglobin Concent 28.2 L Red Cell Distribution Width 20.9 H Platelet Count 292 # Mean Platelet Volume 11.0 H Immature Granulocytes % 1.100 H Neutrophils % 65.1 Lymphocytes % 11.0 L Monocytes % 18.3 H Eosinophils % 1.3 Basophils % 3.2 H Nucleated Red Blood Cells % 0.0 Immature Granulocytes # 0.200 H Neutrophils # 12.0 H Lymphocytes # 2.0 Monocytes # 3.4 H Eosinophils # 0.2 Basophils # 0.6 H Nucleated Red Blood Cells # 0.0 Prothrombin Time 14.9 Prothrombin Time Ratio 1.2 INR International Normalized Ratio 1.16 Activated Partial Thromboplast Time 32.3 Sodium Level 139 Potassium Level 3.6 Chloride Level 105 Carbon Dioxide Level 22 Anion Gap 12 Blood Urea Nitrogen 22 H Creatinine 1.45 H Est Glomerular Filtrat Rate mL/min 49 L Glucose Level 100 POC Venous Lactate 2.1 *H Calcium Level 7.7 L Total Bilirubin 0.5 Direct Bilirubin 0.00 Indirect Bilirubin 0.5 Aspartate Amino Transf (AST/SGOT) 31 Alanine Aminotransferase (ALT/SGPT) 26 Alkaline Phosphatase 126 H Troponin I < 0.012 B-Type Natriuretic Peptide 239 H Total Protein 6.8 Albumin 3.6 Globulin 3.20 Albumin/Globulin Ratio 1.12 Lactic Acid Level 2.3 *H 2.6 *H HPI/ROS Admit Date/Time Admit Date/Time May 13, 2019 at 00:38 Hx of Present Illness Patient with history of CHF, COPD, chronic pain comes in with 1 week of increasing shortness of breath with productive cough. Patient was found to have CHF and is admitted for further treatment. PMH/Family/Social Past Medical History Medical History: congestive heart failure, coronary artery disease, hypertension Medications Current Medications Furosemide (Lasix) 20 mg BID DIURETICS IV Last administered on 05/13/19at 06:15; Admin Dose 20 MG; Start 05/13/19 at 06:00 Potassium Chloride (Klor-Con 20) 20 meq DAILY PO Last administered on 05/13/19at 08:55; Admin Dose 20 MEQ; Start 05/13/19 at 09:00 Hydromorphone HCl (Dilaudid) 1 mg Q4H PRN IV SEVERE PAIN LEVEL 7-10 Last administered on 05/13/19at 06:14; Admin Dose 1 MG; Start 05/13/19 at 04:30 Ondansetron HCl (Zofran Inj) 4 mg Q4H PRN IV NAUSEA AND/OR VOMITING; Start 05/13/19 at 04:30 Lorazepam (Ativan) 0.5 mg Q6H PRN IV ANXIETY; Start 05/13/19 at 10:30 Levofloxacin/ Dextrose 100 ml @ 100 mls/hr Q24H IVPB ; Start 05/13/19 at 10:30; Status UNV Coded Allergies: Penicillins (Unverified Allergy, Unknown, 05/13/19) Patient strongly denies being allegic to PCN. He states, "I took that damn allergy band off. I'm not allergic to penicillen!" Past Surgical History Past Surgical Hx: other Family History Significant Family History: no pertinent family hx Social History Smoking Status: Current every day smoker Exam/Review of Systems Vital Signs Vitals Vital Signs Date Temp Pulse Resp B/P (MAP) Pulse Ox O2 O2 Flow FiO2 Time Delivery Rate 05/13/19 98.4 20 119/63 97 Nasal 07:20 (81) Cannula 05/13/19 127 04:00 05/13/19 2.0 04:00 05/12/19 21 22:50 Intake and Output 05/12/19 05/12/19 05/13/19 1515:00 23:00 07:00 OutputOutput Total 200 ml BalanceBalance -200 ml Exam Constitutional: well developed Head: normocephalic, atraumatic Neck: supple Respiratory: diminished breath sounds Cardiovascular: regular rate and rhythm Gastrointestinal: soft, non-tender Extremities: normal pulses WERNER KING May 13, 2019 10:25
[2019-05-13] MEDS ORDERED: oxyCODONE (CR) 10 MG TAB [oxyCONTIN] PO PRN (10:30)
[2019-05-13] MEDS: LORAZEPAM 2 MG INJ IV PRN ×2 (10:34→18:11)
[2019-05-13 11:24] VITALS: BP 131/69; PULSE 129; RESP 20
[2019-05-13] MEDS: ALBUTEROL 18 GM INHALER INH SCH ×3 (12:00→20:00)
[2019-05-13] MEDS ORDERED: DIGOXIN 500 MCG INJ IV ONE (13:00)
[2019-05-13] MEDS: ALLOPURINOL 100 MG TAB PO SCH (13:21)
[2019-05-13] MEDS: METOPROLOL (XL) 50 MG TAB PO SCH (13:21)
[2019-05-13] MEDS: FOLIC ACID 1 MG TAB PO SCH (13:21)
[2019-05-13] MEDS: SPIRONOLACTONE 25 MG TAB PO SCH (13:21)
[2019-05-13] MEDS: oxyCODONE 5 MG TAB PO PRN (13:29)
[2019-05-13] MEDS: CEFAZOLIN 2 GM/50 ML (PMX) 50 ML IVPB SCH ×2 (14:29→21:30)
[2019-05-13 15:14] VITALS: BP 169/71; PULSE 130; RESP 20
--- NOTE | 2019-05-13 15:42 | CONS ---
DATE OF ADMISSION: 05/13/2019 DATE OF CONSULTATION: 05/13/2019 REASON FOR CONSULTATION: Congestive heart failure, tachycardia. REQUESTING PHYSICIAN: Dr. King. HISTORY OF PRESENT ILLNESS: Mr. Milian is a 63-year-old male with a history of congestive heart failure with preserved EF by echo January 2019, hypertension and chronic kidney disease, cirrhosis with ongoing bouts of ascites, ongoing tobacco dependence, COPD, ETOH dependence with current admission to hospital who was last discharged in April and now represents with complaints of shortness of breath, cough and then a swelling in his mouth with inability to eat and pain in his teeth. Upon arrival, temperature 97.3, blood pressure 145/69, pulse 105, respiratory rate 24, satting 99%. The patient's labs, white blood count 18.4, hemoglobin 8.6, platelet count 292. Sodium 139, potassium 3.6, creatinine 1.45, BUN of 22. Lactic acid 2.3. Troponin negative. BNP is 239. INR 1.1. The patient underwent a chest x-ray revealing mild cardiomegaly, no acute cardiopulmonary process. The patient's electrocardiogram revealed sinus tachycardia 105, left axis deviation, nonspecific STTWA's. The patient was admitted to the floor. Since admit to the floor, had complaints of tooth pain and shortness of breath. PAST MEDICAL HISTORY: As above in HPI. MEDICATIONS CURRENTLY IN HOSPITAL: 1. Colace. 2. Amitiza. 3. Aldactone. 4. Albuterol. 5. Toprol-XL 50 mg daily. 6. Oxycodone. 7. Ativan. 8. Lasix 20 mg IV b.i.d. 9. Folic acid. 10. Allopurinol. 11. Cefazolin. 12. Atrovent. 13. Levofloxacin. 14. Protonix. 15. Synthroid. ALLERGIES: PENICILLIN. SOCIAL HISTORY: Positive tobacco, ETOH abuse. No illicit drug use. FAMILY HISTORY: No history of sudden cardiac or early CAD. REVIEW OF SYSTEMS: As above in HPI. CONSTITUTIONAL: No fevers, chills. PULMONARY: Positive shortness breath. CARDIOVASCULAR: Tachycardia. GASTROINTESTINAL: Cirrhosis, ascites. GENITOURINARY: Renal failure. PSYCHIATRIC: Anxiety, depression. NEUROLOGIC: No documented history of CVA. PHYSICAL EXAMINATION VITAL SIGNS: Temperature of 98.1, blood pressure 131/69, pulse 120, sat 91%. GENERAL: The patient is alert, awake, complaining of tooth pain, shortness of breath. NECK: JVP approximately 9 to 10 cm of water. CHEST: Decreased breath sounds at bases bilaterally. HEART: Tachycardic, regular rhythm, normal S1, S2, I/ systolic murmur. ABDOMEN: Obese, soft. EXTREMITIES: Chronic venous stasis changes and 1+ edema bilaterally, thickening of the skin. Difficult to palpate distal pulses bilaterally, posterior tibial, dorsalis pedis. LABORATORY DATA: Most recent from today, lactate level of 2.6. IMAGING STUDIES: As above in HPI. No further imaging studies for my review at this time. ELECTROCARDIOGRAM: As above in HPI. No further electrocardiograms for my review at this time. IMPRESSION: 1. Tachycardia consistent with sinus tachycardia at this time. At this time, in the setting of pain and shortness of breath. 2. Congestive heart failure, diastolic, acute on chronic. 3. Hypertension. 4. Abnormal echocardiogram, assess for acute coronary syndrome. 5. Cirrhosis with ascites. 6. Chronic obstructive pulmonary disease. 7. Ongoing tobacco usage. 8. Possible upper respiratory infection. 9. Renal failure. 10. Leukocytosis. RECOMMENDATIONS: 1. At this time, we would maintain the patient on telemetry monitoring to follow rhythm and rate control closely. 2. We will continue the patient's Lasix and Aldactone diuresis, following strict I's and O's and creatinine as well as potassium closely. 3. Will give patient his baseline beta jose and follow up heart rate and blood pressure response. 4. Check a TSH to assess the patient's current thyroid state and its possible contribution to tachycardia and need for adjustment and Synthroid levels. 5. Continue the patient's antibiotics and follow up all culture data. 6. Complete the patient's rule out for myocardial infarction to ensure the patient's coughing symptoms are not a result of an acute coronary syndrome such as acute myocardial infarction and would check a fasting lipid panel for general risk stratification and initiate lipid-lowering medication as necessary. 7. Pain control. Thank you for allowing me to take part in the care of this patient. I will continue to follow him closely with you, with recommendations to be made as the patient progresses through his inpatient hospital clinical course. Dictated By: DUSTY YOUNG/NILDA Conf#: [id number] DID#: [id number] CC: WERNER KING MD; KOKO MARLOW MD;*EndCC* MTDD
[2019-05-13 20:00] VITALS: BP 169/74; PULSE 103; RESP 19
[2019-05-13] MEDS: LUBIPROSTONE 24 MCG CAP PO SCH (21:30)
[2019-05-13] MEDS: DOCUSATE SODIUM 100 MG CAP PO SCH (21:30)
[2019-05-13] MEDS: LORAZEPAM 1 MG TAB PO PRN (23:05)
[2019-05-13] MEDS: LEVOFLOXACIN 500MG/D5W (PMX) 100 ML IVPB SCH (23:48)
[2019-05-14] VITALS (8 sets, daily range): BP systolic 134–183; BP diastolic 62–89; PULSE 86–117; RESP 18–20
[2019-05-14] MEDS: ALBUTEROL 18 GM INHALER INH SCH ×7 (04:00→23:54)
[2019-05-14] MEDS: CEFAZOLIN 2 GM/50 ML (PMX) 50 ML IVPB SCH ×3 (05:45→21:16)
[2019-05-14] MEDS: FUROSEMIDE 20 MG INJ IV SCH ×2 (05:46→17:28)
[2019-05-14] MEDS: PANTOPRAZOLE (EC) 40 MG TAB PO SCH (06:39)
[2019-05-14] MEDS: LEVOTHYROXINE 100 MCG TAB PO SCH (06:40)
[2019-05-14] MEDS: HYDROmorphONE 1 MG/ML SYG IV PRN ×5 (06:46→23:55)
[2019-05-14] MEDS: DILTIAZEM 25 MG INJ IV PRN ×2 (06:58→12:57)
[2019-05-14] MEDS: LORAZEPAM 2 MG INJ IV PRN ×2 (08:41→17:39)
[2019-05-14] MEDS: LUBIPROSTONE 24 MCG CAP PO SCH ×2 (08:41→20:06)
[2019-05-14] MEDS: DOCUSATE SODIUM 100 MG CAP PO SCH ×2 (08:41→20:06)
[2019-05-14] MEDS: FOLIC ACID 1 MG TAB PO SCH (08:42)
[2019-05-14] MEDS: SPIRONOLACTONE 25 MG TAB PO SCH (08:42)
[2019-05-14] MEDS: POTASSIUM CHLORIDE (SR) 20 MEQ TAB PO SCH (08:42)
[2019-05-14] MEDS: ALLOPURINOL 100 MG TAB PO SCH (08:42)
[2019-05-14] MEDS: METOPROLOL (XL) 50 MG TAB PO SCH ×2 (08:43→20:07)
--- NOTE | 2019-05-14 13:21 | CONS ---
Assessment/Plan Assessment/Plan Hospital Course (Demo Recall) IMPRESSION: 1. Tachycardia consistent with sinus tachycardia at this time. At this time, in the setting of pain and shortness of breath.-ongoing but overall improved 2. Congestive heart failure, diastolic, acute on chronic. 3. Hypertension. 4. Abnormal echocardiogram, assess for acute coronary syndrome.-neg trop x 3. NO cp 5. Cirrhosis with ascites. 6. Chronic obstructive pulmonary disease. 7. Ongoing tobacco usage. 8. Possible upper respiratory infection. 9. Renal failure. 10. Leukocytosis. Recc: -Tele -serial ecg's -Increase toprol to improve BP/HR -Continue lasix/aldactone -pain control -check Free t4 to further asses current thyroid state Consultation Date/Type/Reason Admit Date/Time May 13, 2019 at 00:38 Initial Consult Date 05/13/19 Type of Consult Cardiology Reason for Consultation tachycardia Requesting Provider: WERNER KING Date/Time of Note DATE: 05/14/19 TIME: 13:17 Exam/Review of Systems Vital Signs Vitals Vital Signs Date Temp Pulse Resp B/P (MAP) Pulse Ox O2 O2 Flow FiO2 Time Delivery Rate 05/14/19 97.3 108 19 145/67 96 11:29 (93) 05/13/19 Nasal 2.0 20:00 Cannula 05/12/19 21 22:50 Intake and Output 05/13/19 05/13/19 05/14/19 1515:00 23:00 07:00 IntakeIntake Total 720 ml 480 ml 400 ml OutputOutput Total 1100 ml 200 ml 800 ml BalanceBalance -380 ml 280 ml -400 ml Exam Exam Review of Systems: CONSTITUTIONAL: No fevers, chills. PULMONARY: mild sob CARDIOVASCULAR: No chest pain/palpitations GASTROINTESTINAL: pain in mouth GENITOURINARY: No hematuria/dysuria. MUSCULOSKELETAL: No myagias/arthalgias. PSYCHIATRIC: The patient denies depression. NEUROLOGIC: No weakness Constitutional: alert, oriented Psych: no complaints Head: normocephalic ENMT: mucosa pink and moist Neck: supple, jvd (9 cm water) Respiratory: diminished breath sounds (at bases/B) Cardiovascular: regular rate and rhythm Gastrointestinal: soft, non-tender Musculoskeletal: muscle tone (normal) Extremities: edema (trace bilateral with chronic venous stasis changes) Labs Result Diagram: 05/12/19 2310 05/12/19 2310 Results 24hrs Laboratory Tests Test 05/13/19 18:00 05/14/19 00:36 05/14/19 05:11 Creatine Kinase 39 75 54 Creatine Kinase Index 3.9 1.8 2.5 Creatinine Kinase MB (Mass) 1.51 1.36 1.34 Troponin I < 0.012 0.019 < 0.012 Medications Medications Current Medications Furosemide (Lasix) 20 mg BID DIURETICS IV Last administered on 05/14/19 05:46; Admin Dose 20 MG; Start 05/13/19 at 06:00 Potassium Chloride (Klor-Con 20) 20 meq DAILY PO Last administered on 05/14/19 08:42; Admin Dose 20 MEQ; Start 05/13/19 at 09:00 Hydromorphone HCl (Dilaudid) 1 mg Q4H PRN IV SEVERE PAIN LEVEL 7-10 Last administered on 05/14/19 11:44; Admin Dose 1 MG; Start 05/13/19 at 04:30 Ondansetron HCl (Zofran Inj) 4 mg Q4H PRN IV NAUSEA AND/OR VOMITING; Start 05/13/19 at 04:30 Lorazepam (Ativan) 0.5 mg Q6H PRN IV ANXIETY Last administered on 05/14/19 08:41; Admin Dose 0.5 MG; Start 05/13/19 at 10:30 Levofloxacin/ Dextrose 100 ml @ 100 mls/hr Q24H IVPB Last administered on 05/13/19 23:48; Admin Dose 100 MLS/HR; Start 05/13/19 at 23:00 Albuterol (Ventolin Hfa) 2 puff Q4H INH Last administered on 05/14/19 04:00; Admin Dose 2 PUFF; Start 05/13/19 at 12:00 Allopurinol (Zyloprim) 100 mg DAILY PO Last administered on 05/14/19 08:42; Admin Dose 100 MG; Start 05/13/19 at 12:00 Docusate Sodium (Colace) 100 mg BID PO Last administered on 05/14/19 08:41; Admin Dose 100 MG; Start 05/13/19 at 21:00 Folic Acid (Folic Acid) 1 mg DAILY PO Last administered on 05/14/19 08:42; Admin Dose 1 MG; Start 05/13/19 at 12:00 Hydralazine HCl (Apresoline) 25 mg Q8 PRN PO SBP > 160; Start 05/13/19 at 10:30 Levothyroxine Sodium (Synthroid) 200 mcg BEFORE BREAKFAST PO Last administered on 05/14/19 06:40; Admin Dose 200 MCG; Start 05/14/19 at 07:00 Lorazepam (Ativan) 1 mg HS PRN PO AGITATION Last administered on 05/13/19 23:05; Admin Dose 1 MG; Start 05/13/19 at 10:30 Lubiprostone (Amitiza) 24 mcg BID PO Last administered on 05/14/19 08:41; Admin Dose 24 MCG; Start 05/13/19 at 21:00 Metoprolol Succinate (Toprol Xl) 50 mg DAILY PO Last administered on 05/14/19 08:43; Admin Dose 50 MG; Start 05/13/19 at 12:00 Pantoprazole (Protonix Tab) 40 mg AC BREAKFAST PO Last administered on 05/14/19 06:39; Admin Dose 40 MG; Start 05/14/19 at 07:00 Spironolactone (Aldactone) 25 mg DAILY PO Last administered on 05/14/19 08:42; Admin Dose 25 MG; Start 05/13/19 at 14:00 Cefazolin Sodium/ Dextrose 50 ml @ 100 mls/hr Q8 IVPB Last administered on 05/14/19 05:45; Admin Dose 100 MLS/HR; Start 05/13/19 at 14:00 Oxycodone HCl (Roxicodone) 10 mg TID PRN PO MODERATE PAIN LEVEL 4-6 Last administered on 05/13/19 13:29; Admin Dose 10 MG; Start 05/13/19 at 12:00 Diltiazem HCl (Cardizem Iv) 5 mg Q4 PRN IV HR>110 Hold SBP<100 Last administered on 05/14/19 12:57; Admin Dose 5 MG; Start 05/13/19 at 13:00 DUSTY CANTU May 14, 2019 13:21
--- NOTE | 2019-05-14 13:53 | PN ---
Date/Time of Note Date/Time of Note DATE: 05/14/19 TIME: 13:52 Assessment/Plan VTE Prophylaxis Risk score (from Ns)>0 risk: 4 SCD applied (from [facility] [place]): No SCD contraindicated: other Pharmacological prophylaxis: LMWH Lines/Catheters IV Catheter Type (from [facility] [place] Assessment/Plan Hospital Course 1) CHF - IV lasix - consult cardiology 2) bronchitis - IV antibiotics 3) COPD - breathing treatment Result Diagram: 05/12/19 2310 05/12/19 2310 Results 24hrs Laboratory Tests Test 05/13/19 18:00 05/14/19 00:36 05/14/19 05:11 Creatine Kinase 39 75 54 Creatine Kinase Index 3.9 1.8 2.5 Creatinine Kinase MB (Mass) 1.51 1.36 1.34 Troponin I < 0.012 0.019 < 0.012 Subjective 24 Hr Interval Summary Free Text/Dictation Patient still complain of pain in back, left cheek. Exam/Review of Systems Exam Vitals Vital Signs Date Temp Pulse Resp B/P (MAP) Pulse Ox O2 O2 Flow FiO2 Time Delivery Rate 05/14/19 97.3 108 19 145/67 96 11:29 (93) 05/13/19 Nasal 2.0 20:00 Cannula 05/12/19 21 22:50 Intake and Output 05/13/19 05/13/19 05/14/19 1515:00 23:00 07:00 IntakeIntake Total 720 ml 480 ml 400 ml OutputOutput Total 1100 ml 200 ml 800 ml BalanceBalance -380 ml 280 ml -400 ml Constitutional: well developed Head: normocephalic, atraumatic Neck: supple Respiratory: diminished breath sounds Cardiovascular: regular rate and rhythm Gastrointestinal: soft, non-tender Extremities: normal pulses Results Results 24hrs Laboratory Tests Test 05/13/19 18:00 05/14/19 00:36 05/14/19 05:11 Creatine Kinase 39 75 54 Creatine Kinase Index 3.9 1.8 2.5 Creatinine Kinase MB (Mass) 1.51 1.36 1.34 Troponin I < 0.012 0.019 < 0.012 Medications Medication Current Medications Furosemide (Lasix) 20 mg BID DIURETICS IV Last administered on 05/14/19at 05:46; Admin Dose 20 MG; Start 05/13/19 at 06:00 Potassium Chloride (Klor-Con 20) 20 meq DAILY PO Last administered on 05/14/19 08:42; Admin Dose 20 MEQ; Start 05/13/19 at 09:00 Hydromorphone HCl (Dilaudid) 1 mg Q4H PRN IV SEVERE PAIN LEVEL 7-10 Last administered on 05/14/19 11:44; Admin Dose 1 MG; Start 05/13/19 at 04:30 Ondansetron HCl (Zofran Inj) 4 mg Q4H PRN IV NAUSEA AND/OR VOMITING; Start 05/13/19 at 04:30 Lorazepam (Ativan) 0.5 mg Q6H PRN IV ANXIETY Last administered on 05/14/19 08:41; Admin Dose 0.5 MG; Start 05/13/19 at 10:30 Levofloxacin/ Dextrose 100 ml @ 100 mls/hr Q24H IVPB Last administered on 05/13/19 23:48; Admin Dose 100 MLS/HR; Start 05/13/19 at 23:00 Albuterol (Ventolin Hfa) 2 puff Q4H INH Last administered on 05/14/19 04:00; Admin Dose 2 PUFF; Start 05/13/19 at 12:00 Allopurinol (Zyloprim) 100 mg DAILY PO Last administered on 05/14/19 08:42; Admin Dose 100 MG; Start 05/13/19 at 12:00 Docusate Sodium (Colace) 100 mg BID PO Last administered on 05/14/19 08:41; Admin Dose 100 MG; Start 05/13/19 at 21:00 Folic Acid (Folic Acid) 1 mg DAILY PO Last administered on 05/14/19 08:42; Admin Dose 1 MG; Start 05/13/19 at 12:00 Hydralazine HCl (Apresoline) 25 mg Q8 PRN PO SBP > 160; Start 05/13/19 at 10:30 Levothyroxine Sodium (Synthroid) 200 mcg BEFORE BREAKFAST PO Last administered on 05/14/19 06:40; Admin Dose 200 MCG; Start 05/14/19 at 07:00 Lorazepam (Ativan) 1 mg HS PRN PO AGITATION Last administered on 05/13/19 23:05; Admin Dose 1 MG; Start 05/13/19 at 10:30 Lubiprostone (Amitiza) 24 mcg BID PO Last administered on 05/14/19 08:41; Admin Dose 24 MCG; Start 05/13/19 at 21:00 Pantoprazole (Protonix Tab) 40 mg AC BREAKFAST PO Last administered on 05/14/19 06:39; Admin Dose 40 MG; Start 05/14/19 at 07:00 Spironolactone (Aldactone) 25 mg DAILY PO Last administered on 05/14/19 08:42; Admin Dose 25 MG; Start 05/13/19 at 14:00 Cefazolin Sodium/ Dextrose 50 ml @ 100 mls/hr Q8 IVPB Last administered on 05/14/19 05:45; Admin Dose 100 MLS/HR; Start 05/13/19 at 14:00 Oxycodone HCl (Roxicodone) 10 mg TID PRN PO MODERATE PAIN LEVEL 4-6 Last administered on 05/13/19 13:29; Admin Dose 10 MG; Start 05/13/19 at 12:00 Diltiazem HCl (Cardizem Iv) 5 mg Q4 PRN IV HR>110 Hold SBP<100 Last administered on 05/14/19 12:57; Admin Dose 5 MG; Start 05/13/19 at 13:00 Metoprolol Succinate (Toprol Xl) 50 mg BID PO ; Start 05/14/19 at 21:00; Status UNWERNER RIZZO May 14, 2019 13:53
--- NOTE | 2019-05-14 14:11 | RADRPT ---
Vent Rate: 124 bpm RR Interval: 484 msec VT Interval: 157 msec QRS Duration: 85 msec QT Interval: 310 msec QTC Interval: 446 msec P-R-T [place]: 54 - -10 - 61 degrees Sinus tachycardia...rate> 99 Electronically Signed By: Patricio Chatman
[2019-05-14] MEDS: LORAZEPAM 1 MG TAB PO PRN (23:01)
[2019-05-14] MEDS: LEVOFLOXACIN 500MG/D5W (PMX) 100 ML IVPB SCH (23:02)
[2019-05-15 04:00] VITALS: BP 159/68; PULSE 100; RESP 18
[2019-05-15] MEDS: HYDROmorphONE 1 MG/ML SYG IV PRN ×5 (04:12→21:38)
[2019-05-15] MEDS: ALBUTEROL 18 GM INHALER INH SCH ×6 (04:13→23:57)
[2019-05-15] MEDS: FUROSEMIDE 20 MG INJ IV SCH ×2 (05:15→17:33)
[2019-05-15] MEDS: LORAZEPAM 2 MG INJ IV PRN ×3 (05:15→18:49)
[2019-05-15] MEDS: CEFAZOLIN 2 GM/50 ML (PMX) 50 ML IVPB SCH ×3 (05:16→21:38)
[2019-05-15] MEDS: oxyCODONE 5 MG TAB PO PRN ×2 (05:16→18:49)
[2019-05-15 07:18] VITALS: BP 141/81; PULSE 91; RESP 18
[2019-05-15] MEDS: PANTOPRAZOLE (EC) 40 MG TAB PO SCH (07:50)
[2019-05-15] MEDS: LEVOTHYROXINE 100 MCG TAB PO SCH (07:50)
[2019-05-15] MEDS: METOPROLOL (XL) 50 MG TAB PO SCH ×2 (08:37→21:19)
[2019-05-15] MEDS: SPIRONOLACTONE 25 MG TAB PO SCH (08:37)
[2019-05-15] MEDS: POTASSIUM CHLORIDE (SR) 20 MEQ TAB PO SCH (08:37)
[2019-05-15] MEDS: ALLOPURINOL 100 MG TAB PO SCH (08:37)
[2019-05-15] MEDS: LUBIPROSTONE 24 MCG CAP PO SCH ×2 (08:37→21:19)
[2019-05-15] MEDS: FOLIC ACID 1 MG TAB PO SCH (08:37)
[2019-05-15] MEDS: DOCUSATE SODIUM 100 MG CAP PO SCH ×2 (08:37→21:18)
[2019-05-15 11:39] VITALS: BP 145/67; PULSE 86; RESP 18
[2019-05-15] MEDS ORDERED: LACTULOSE 30ML CUP PO ONE (13:30)
--- NOTE | 2019-05-15 13:54 | CONS ---
Assessment/Plan Assessment/Plan Hospital Course (Demo Recall) IMPRESSION: 1. Tachycardia consistent with sinus tachycardia at this time. At this time, in the setting of pain and shortness of breath.-ongoing but overall improved 2. Congestive heart failure, diastolic, acute on chronic. 3. Hypertension. 4. Abnormal echocardiogram, assess for acute coronary syndrome.-neg trop x 3. NO cp 5. Cirrhosis with ascites. 6. Chronic obstructive pulmonary disease. 7. Ongoing tobacco usage. 8. Possible upper respiratory infection. 9. Renal failure. 10. Leukocytosis. Recc: -Tele -serial ecg's -Continue toprol at current doses with overall improved HR and will start hydralazine to improve BP overall -Continue lasix/aldactone -pain control -check Free T4 to further assess current thyroid state Consultation Date/Type/Reason Admit Date/Time May 13, 2019 at 00:38 Initial Consult Date 05/13/19 Type of Consult Cardiology Reason for Consultation CHF Requesting Provider: WERNER KING Date/Time of Note DATE: 05/15/19 TIME: 13:47 Exam/Review of Systems Vital Signs Vitals Vital Signs Date Temp Pulse Resp B/P (MAP) Pulse Ox O2 O2 Flow FiO2 Time Delivery Rate 05/15/19 97.8 86 18 145/67 96 11:39 (93) 05/15/19 Nasal 2.0 08:00 Cannula 05/12/19 21 22:50 Intake and Output 05/14/19 05/14/19 05/15/19 1515:00 23:00 07:00 IntakeIntake Total 360 ml 290 ml 200 ml OutputOutput Total 400 ml 451 ml BalanceBalance -40 ml -161 ml 200 ml Exam Exam Review of Systems: CONSTITUTIONAL: No fevers, chills. PULMONARY: No sob CARDIOVASCULAR: No chest pain/palpitations GASTROINTESTINAL: No nausea/vomiting. GENITOURINARY: No hematuria/dysuria. MUSCULOSKELETAL: No myagias/arthalgias. PSYCHIATRIC: The patient denies depression. NEUROLOGIC: No weakness Constitutional: alert, oriented Psych: no complaints Head: normocephalic ENMT: mucosa pink and moist Neck: supple, jvd (9 cm water) Respiratory: diminished breath sounds (at bases/b) Cardiovascular: regular rate and rhythm Gastrointestinal: soft, non-tender Musculoskeletal: muscle tone (normal) Extremities: edema (trace/b) Neurological: other (no focal deficits) Labs Result Diagram: 05/15/19 0702 05/15/19 0552 Results 24hrs Laboratory Tests Test 05/15/19 05:52 05/15/19 07:02 Sodium Level 132 L Potassium Level 4.4 Chloride Level 101 Carbon Dioxide Level 23 Anion Gap 8 Blood Urea Nitrogen 25 H Creatinine 1.47 H Est Glomerular Filtrat Rate mL/min 49 L Glucose Level 116 Calcium Level 7.7 L White Blood Count 12.7 #H Red Blood Count 3.57 L Hemoglobin 7.7 L Hematocrit 27.5 L Mean Corpuscular Volume 77.0 L Mean Corpuscular Hemoglobin 21.6 L Mean Corpuscular Hemoglobin Concent 28.0 L Red Cell Distribution Width 20.5 H Platelet Count 151 # Mean Platelet Volume 11.2 H Immature Granulocytes % 0.900 H Neutrophils % 64.7 Lymphocytes % 5.1 L Monocytes % 27.1 H Eosinophils % 1.3 Basophils % 0.9 Nucleated Red Blood Cells % 0.2 H Immature Granulocytes # 0.120 H Neutrophils # 8.2 H Lymphocytes # 0.7 L Monocytes # 3.4 H Eosinophils # 0.2 Basophils # 0.1 Nucleated Red Blood Cells # 0.0 Medications Medications Current Medications Furosemide (Lasix) 20 mg BID DIURETICS IV Last administered on 05/15/19 05:15; Admin Dose 20 MG; Start 05/13/19 at 06:00 Potassium Chloride (Klor-Con 20) 20 meq DAILY PO Last administered on 05/15/19 08:37; Admin Dose 20 MEQ; Start 05/13/19 at 09:00 Hydromorphone HCl (Dilaudid) 1 mg Q4H PRN IV SEVERE PAIN LEVEL 7-10 Last administered on 05/15/19 13:28; Admin Dose 1 MG; Start 05/13/19 at 04:30 Ondansetron HCl (Zofran Inj) 4 mg Q4H PRN IV NAUSEA AND/OR VOMITING; Start 05/13/19 at 04:30 Lorazepam (Ativan) 0.5 mg Q6H PRN IV ANXIETY Last administered on 05/15/19 12:42; Admin Dose 0.5 MG; Start 05/13/19 at 10:30 Levofloxacin/ Dextrose 100 ml @ 100 mls/hr Q24H IVPB Last administered on 05/14/19 23:02; Admin Dose 100 MLS/HR; Start 05/13/19 at 23:00 Albuterol (Ventolin Hfa) 2 puff Q4H INH Last administered on 05/15/19 12:41; Admin Dose 2 PUFF; Start 05/13/19 at 12:00 Allopurinol (Zyloprim) 100 mg DAILY PO Last administered on 05/15/19 08:37; Admin Dose 100 MG; Start 05/13/19 at 12:00 Docusate Sodium (Colace) 100 mg BID PO Last administered on 05/15/19 08:37; Admin Dose 100 MG; Start 05/13/19 at 21:00 Folic Acid (Folic Acid) 1 mg DAILY PO Last administered on 05/15/19 08:37; Admin Dose 1 MG; Start 05/13/19 at 12:00 Hydralazine HCl (Apresoline) 25 mg Q8 PRN PO SBP > 160; Start 05/13/19 at 10:30 Levothyroxine Sodium (Synthroid) 200 mcg BEFORE BREAKFAST PO Last administered on 05/15/19 07:50; Admin Dose 200 MCG; Start 05/14/19 at 07:00 Lorazepam (Ativan) 1 mg HS PRN PO AGITATION Last administered on 05/14/19 23:01; Admin Dose 1 MG; Start 05/13/19 at 10:30 Lubiprostone (Amitiza) 24 mcg BID PO Last administered on 05/15/19 08:37; Admin Dose 24 MCG; Start 05/13/19 at 21:00 Pantoprazole (Protonix Tab) 40 mg AC BREAKFAST PO Last administered on 05/15/19 07:50; Admin Dose 40 MG; Start 05/14/19 at 07:00 Spironolactone (Aldactone) 25 mg DAILY PO Last administered on 05/15/19 08:37; Admin Dose 25 MG; Start 05/13/19 at 14:00 Cefazolin Sodium/ Dextrose 50 ml @ 100 mls/hr Q8 IVPB Last administered on 05/15/19 13:27; Admin Dose 100 MLS/HR; Start 05/13/19 at 14:00 Oxycodone HCl (Roxicodone) 10 mg TID PRN PO MODERATE PAIN LEVEL 4-6 Last administered on 05/15/19at 05:16; Admin Dose 10 MG; Start 05/13/19 at 12:00 Diltiazem HCl (Cardizem Iv) 5 mg Q4 PRN IV HR>110 Hold SBP<100 Last a dministered on 05/14/19at 12:57; Admin Dose 5 MG; Start 05/13/19 at 13:00 Metoprolol Succinate (Toprol Xl) 50 mg BID PO Last administered on 05/15/19at 08:37; Admin Dose 50 MG; Start 05/14/19 at 21:00 DUSTY CANTU May 15, 2019 13:54
--- NOTE | 2019-05-15 14:37 | PN ---
Date/Time of Note Date/Time of Note DATE: 05/15/19 TIME: 14:36 Assessment/Plan VTE Prophylaxis Risk score (from [facility] [place])>0 risk: 4 SCD applied (from [facility] [place]): No SCD contraindicated: other Pharmacological prophylaxis: LMWH Lines/Catheters IV Catheter Type (from [facility]): Peripheral IV Assessment/Plan Hospital Course 1) CHF - IV lasix - consult cardiology 2) bronchitis - IV antibiotics 3) COPD - breathing treatment Result Diagram: 05/15/19 0702 05/15/19 0552 Results 24hrs Laboratory Tests Test 05/15/19 05:52 05/15/19 07:02 Sodium Level 132 L Potassium Level 4.4 Chloride Level 101 Carbon Dioxide Level 23 Anion Gap 8 Blood Urea Nitrogen 25 H Creatinine 1.47 H Est Glomerular Filtrat Rate mL/min 49 L Glucose Level 116 Calcium Level 7.7 L White Blood Count 12.7 #H Red Blood Count 3.57 L Hemoglobin 7.7 L Hematocrit 27.5 L Mean Corpuscular Volume 77.0 L Mean Corpuscular Hemoglobin 21.6 L Mean Corpuscular Hemoglobin Concent 28.0 L Red Cell Distribution Width 20.5 H Platelet Count 151 # Mean Platelet Volume 11.2 H Immature Granulocytes % 0.900 H Neutrophils % 64.7 Lymphocytes % 5.1 L Monocytes % 27.1 H Eosinophils % 1.3 Basophils % 0.9 Nucleated Red Blood Cells % 0.2 H Immature Granulocytes # 0.120 H Neutrophils # 8.2 H Lymphocytes # 0.7 L Monocytes # 3.4 H Eosinophils # 0.2 Basophils # 0.1 Nucleated Red Blood Cells # 0.0 Subjective 24 Hr Interval Summary Free Text/Dictation Patient still have back pain and pain in left cheek Exam/Review of Systems Exam Vitals Vital Signs Date Temp Pulse Resp B/P (MAP) Pulse Ox O2 O2 Flow FiO2 Time Delivery Rate 05/15/19 97.8 86 18 145/67 96 11:39 (93) 05/15/19 Nasal 2.0 08:00 Cannula 05/12/19 21 22:50 Intake and Output 05/14/19 05/14/19 05/15/19 1515:00 23:00 07:00 IntakeIntake Total 360 ml 290 ml 200 ml OutputOutput Total 400 ml 451 ml BalanceBalance -40 ml -161 ml 200 ml Constitutional: well developed Head: normocephalic, atraumatic Neck: supple Respiratory: diminished breath sounds Cardiovascular: regular rate and rhythm Gastrointestinal: soft, non-tender Extremities: normal pulses Results Results 24hrs Laboratory Tests Test 05/15/19 05:52 05/15/19 07:02 Sodium Level 132 L Potassium Level 4.4 Chloride Level 101 Carbon Dioxide Level 23 Anion Gap 8 Blood Urea Nitrogen 25 H Creatinine 1.47 H Est Glomerular Filtrat Rate mL/min 49 L Glucose Level 116 Calcium Level 7.7 L White Blood Count 12.7 #H Red Blood Count 3.57 L Hemoglobin 7.7 L Hematocrit 27.5 L Mean Corpuscular Volume 77.0 L Mean Corpuscular Hemoglobin 21.6 L Mean Corpuscular Hemoglobin Concent 28.0 L Red Cell Distribution Width 20.5 H Platelet Count 151 # Mean Platelet Volume 11.2 H Immature Granulocytes % 0.900 H Neutrophils % 64.7 Lymphocytes % 5.1 L Monocytes % 27.1 H Eosinophils % 1.3 Basophils % 0.9 Nucleated Red Blood Cells % 0.2 H Immature Granulocytes # 0.120 H Neutrophils # 8.2 H Lymphocytes # 0.7 L Monocytes # 3.4 H Eosinophils # 0.2 Basophils # 0.1 Nucleated Red Blood Cells # 0.0 Medications Medication Current Medications Furosemide (Lasix) 20 mg BID DIURETICS IV Last administered on 05/15/19at 05:15; Admin Dose 20 MG; Start 05/13/19 at 06:00 Potassium Chloride (Klor-Con 20) 20 meq DAILY PO Last administered on 05/15/19at 08:37; Admin Dose 20 MEQ; Start 05/13/19 at 09:00 Hydromorphone HCl (Dilaudid) 1 mg Q4H PRN IV SEVERE PAIN LEVEL 7-10 Last administered on 05/15/19at 13:28; Admin Dose 1 MG; Start 05/13/19 at 04:30 Ondansetron HCl (Zofran Inj) 4 mg Q4H PRN IV NAUSEA AND/OR VOMITING; Start 05/13/19 at 04:30 Lorazepam (Ativan) 0.5 mg Q6H PRN IV ANXIETY Last administered on 05/15/19at 12:42; Admin Dose 0.5 MG; Start 05/13/19 at 10:30 Levofloxacin/ Dextrose 100 ml @ 100 mls/hr Q24H IVPB Last administered on 05/14/19 23:02; Admin Dose 100 MLS/HR; Start 05/13/19 at 23:00 Albuterol (Ventolin Hfa) 2 puff Q4H INH Last administered on 05/15/19 12:41; Admin Dose 2 PUFF; Start 05/13/19 at 12:00 Allopurinol (Zyloprim) 100 mg DAILY PO Last administered on 05/15/19 08:37; Admin Dose 100 MG; Start 05/13/19 at 12:00 Docusate Sodium (Colace) 100 mg BID PO Last administered on 05/15/19 08:37; Admin Dose 100 MG; Start 05/13/19 at 21:00 Folic Acid (Folic Acid) 1 mg DAILY PO Last administered on 05/15/19 08:37; Admin Dose 1 MG; Start 05/13/19 at 12:00 Hydralazine HCl (Apresoline) 25 mg Q8 PRN PO SBP > 160; Start 05/13/19 at 10:30 Levothyroxine Sodium (Synthroid) 200 mcg BEFORE BREAKFAST PO Last administered on 05/15/19 07:50; Admin Dose 200 MCG; Start 05/14/19 at 07:00 Lorazepam (Ativan) 1 mg HS PRN PO AGITATION Last administered on 05/14/19 23:01; Admin Dose 1 MG; Start 05/13/19 at 10:30 Lubiprostone (Amitiza) 24 mcg BID PO Last administered on 05/15/19 08:37; Admin Dose 24 MCG; Start 05/13/19 at 21:00 Pantoprazole (Protonix Tab) 40 mg AC BREAKFAST PO Last administered on 05/15/19 07:50; Admin Dose 40 MG; Start 05/14/19 at 07:00 Spironolactone (Aldactone) 25 mg DAILY PO Last administered on 05/15/19 08:37; Admin Dose 25 MG; Start 05/13/19 at 14:00 Cefazolin Sodium/ Dextrose 50 ml @ 100 mls/hr Q8 IVPB Last administered on 05/15/19 13:27; Admin Dose 100 MLS/HR; Start 05/13/19 at 14:00 Oxycodone HCl (Roxicodone) 10 mg TID PRN PO MODERATE PAIN LEVEL 4-6 Last administered on 05/15/19 05:16; Admin Dose 10 MG; Start 05/13/19 at 12:00 Diltiazem HCl (Cardizem Iv) 5 mg Q4 PRN IV HR>110 Hold SBP<100 Last administered on 05/14/19 12:57; Admin Dose 5 MG; Start 05/13/19 at 13:00 Metoprolol Succinate (Toprol Xl) 50 mg BID PO Last administered on 05/15/19 08:37; Admin Dose 50 MG; Start 05/14/19 at 21:00 Hydralazine HCl (Apresoline) 25 mg Q8 PO Last administered on 05/15/19 14:36; Admin Dose 25 MG; Start 05/15/19 at 14:00 WERNER KING May 15, 2019 14:37
[2019-05-15 15:15] VITALS: BP 160/73; PULSE 91; RESP 18
[2019-05-15 17:33] VITALS: BP 153/75; PULSE 110
[2019-05-15 20:00] VITALS: BP 124/59; PULSE 95; RESP 18
[2019-05-15] MEDS: LEVOFLOXACIN 500MG/D5W (PMX) 100 ML IVPB SCH (22:44)
[2019-05-16] VITALS: BP 108/57; PULSE 101; RESP 19
[2019-05-16] MEDS: LORAZEPAM 1 MG TAB PO PRN (01:19)
[2019-05-16] MEDS: HYDROmorphONE 1 MG/ML SYG IV PRN (02:13)
--- NOTE | 2019-05-16 16:14 | DS ---
Date/Time of Note Date/Time of Note DATE: 05/16/19 TIME: 16:13 Discharge Summary Admission/Discharge Info Admit Date/Time May 13, 2019 at 00:38 Discharge Date/Time May 16, 2019 at 03:45 Discharge Diagnosis 1) CHF - IV lasix - consult cardiology 2) bronchitis - IV antibiotics 3) COPD - breathing treatment Patient Condition: Fair Consults Cardiology Procedures none Hx of Present Illness Patient with history of CHF, COPD, chronic pain comes in with 1 week of increasing shortness of breath with productive cough. Patient was found to have CHF and is admitted for further treatment. Hospital Course Patient with history of CHF, COPD, chronic pain comes in with 1 week of increasing shortness of breath with productive cough. Patient was found to have CHF and is admitted for further treatment. Patient was treated with antibiotics and lasix. Patient slowly improved but one day he decided to leave against medical advice. 1) CHF - IV lasix - consult cardiology 2) bronchitis - IV antibiotics 3) COPD - breathing treatment Home Meds Reported Medications Oxycodone Hcl* (Oxycontin*) 10 Mg Tab.sr.12h, 10 MG PO TID PRN for PAIN, TAB 04/25/19 Lubiprostone* (Amitiza*) 24 Mcg Capsule, 24 MCG PO BID, #60 CAP 03/12/19 Spironolactone* (Aldactone*) 25 Mg Tablet, 25 MG PO DAILY, #30 TAB 03/12/19 Pantoprazole* (Pantoprazole*) 40 Mg Tablet.dr, 40 MG PO AC BREAKFAST, TAB 03/12/19 Levothyroxine Sodium* (Levothyroxine Sodium*) 200 Mcg Tablet, 200 MCG PO BEFORE BREAKFAST, #30 TAB 03/12/19 Docusate Sodium* (Colace*) 100 Mg Capsule, 100 MG PO BID, #60 CAP 03/12/19 Lorazepam* (Lorazepam*) 1 Mg Tablet, 1 MG PO HS PRN for NEEDED, #30 TAB 03/12/19 Albuterol Sulfate* (Ventolin HFA*) 18 Gm Hfa.aer.ad, 2 PUFF INHALATION Q4H, #1 INHALER 03/12/19 Metoprolol Succinate* (Toprol XL*) 50 Mg Tab.er.24h, 50 MG PO DAILY, #30 TAB 03/12/19 Bumetanide* (Bumetanide*) 2 Mg Tablet, 2 MG PO BID, TAB 03/12/19 Allopurinol* (Allopurinol*) 100 Mg Tablet, 100 MG PO DAILY, TAB 03/12/19 Folic Acid* (Folic Acid*) 1 Mg Tablet, 1 MG PO DAILY, TAB 03/12/19 Hydralazine Hcl* (Hydralazine Hcl*) 25 Mg Tab, 25 MG PO Q8 PRN for PRN, #90 TAB 03/12/19 Discontinued Reported Medications Acetaminophen* (Acetaminophen*) 500 MG Extra Strength Tablet, 500 MG PO Q4H PRN for MILD PAIN LEVEL 1-3, TAB 01/11/19 Primary Care Provider MD CHRISTINE Fernandez LOREN Y May 16, 2019 16:14
== END 2019-05-16 03:45 | disposition left against medical advice (07) | DRG 291 ==
LOC: E/R 21:40 → 6WM 05-13 00:38
PROVIDERS: ADMIT Internal Medicine; ATTEND Internal Medicine
DX: I13.0 Hypertensive heart and chronic kidney disease with heart failure and stage 1 through stage 4 chronic kidney disease, or unspecified chronic kidney disease (principal); I50.33 Acute on chronic diastolic (congestive) heart failure; D72.829 Elevated white blood cell count, unspecified; F17.200 Nicotine dependence, unspecified, uncomplicated; J44.9 Chronic obstructive pulmonary disease, unspecified; J40 Bronchitis, not specified as acute or chronic; K70.31 Alcoholic cirrhosis of liver with ascites; K08.89 Other specified disorders of teeth and supporting structures; N18.9 Chronic kidney disease, unspecified; R00.0 Tachycardia, unspecified; R94.31 Abnormal electrocardiogram [ECG] [EKG]
CPT/HCPCS: 36415; 71045; 80048; 80053; 82550; 82553; 83605; 83880; 84443; 84484; 85025; 85610; 85730; 93005; 94664; 96374; 96375; J0690; J1170; J1940; J1956; J2060; J2405; J3370

== ENCOUNTER 2019-05-16 08:07 | Emergency (ER) | payer BC ==
[~2019-05-16] VITALS: Ht 157.5 cm; Wt 80.0 kg
[2019-05-16 08:08] VITALS: BP 120/56; PULSE 98; RESP 18; Ht 157.5 cm; Wt 80.0 kg
--- NOTE | 2019-05-16 08:48 | ERD ---
ER Documentation Chief Complaint Chief Complaint refill of ativan and pain meds for dental pain, etoh smell on breath HPI 63-year-old male history of cirrhosis left AMA from hospital last night presenting with anxiety and tooth pain. States he was receiving IV Dilaudid while in the hospital. Requesting same emergency department. Patient states that he has had chronic left lower tooth pain with no change from baseline. Endorses mild anxiety however denies suicidal ideation, homicidal ideation or hallucinations. Denies any fevers or chills. Denies any nausea or vomiting. Denies any chest pain or shortness of breath. ROS All systems reviewed and are negative except as per history of present illness. Medications Home Meds Reported Medications Oxycodone Hcl* (Oxycontin*) 10 Mg Tab.sr.12h, 10 MG PO TID PRN for PAIN, TAB 04/25/19 Lubiprostone* (Amitiza*) 24 Mcg Capsule, 24 MCG PO BID, #60 CAP 03/12/19 Spironolactone* (Aldactone*) 25 Mg Tablet, 25 MG PO DAILY, #30 TAB 03/12/19 Pantoprazole* (Pantoprazole*) 40 Mg Tablet.dr, 40 MG PO AC BREAKFAST, TAB 03/12/19 Levothyroxine Sodium* (Levothyroxine Sodium*) 200 Mcg Tablet, 200 MCG PO BEFORE BREAKFAST, #30 TAB 03/12/19 Docusate Sodium* (Colace*) 100 Mg Capsule, 100 MG PO BID, #60 CAP 03/12/19 Lorazepam* (Lorazepam*) 1 Mg Tablet, 1 MG PO HS PRN for NEEDED, #30 TAB 03/12/19 Albuterol Sulfate* (Ventolin HFA*) 18 Gm Hfa.aer.ad, 2 PUFF INHALATION Q4H, #1 INHALER 03/12/19 Metoprolol Succinate* (Toprol XL*) 50 Mg Tab.er.24h, 50 MG PO DAILY, #30 TAB 03/12/19 Bumetanide* (Bumetanide*) 2 Mg Tablet, 2 MG PO BID, TAB 03/12/19 Allopurinol* (Allopurinol*) 100 Mg Tablet, 100 MG PO DAILY, TAB 03/12/19 Folic Acid* (Folic Acid*) 1 Mg Tablet, 1 MG PO DAILY, TAB 03/12/19 Hydralazine Hcl* (Hydralazine Hcl*) 25 Mg Tab, 25 MG PO Q8 PRN for PRN, #90 TAB 03/12/19 Discontinued Reported Medications Acetaminophen* (Acetaminophen*) 500 MG Extra Strength Tablet, 500 MG PO Q4H PRN for MILD PAIN LEVEL 1-3, TAB 01/11/19 Allergies Allergies: Coded Allergies: Penicillins (Unverified Allergy, Unknown, 05/13/19) Patient strongly denies being allegic to PCN. He states, "I took that damn allergy band off. I'm not allergic to penicillen!" PMhx/Soc History of Surgery: Yes (LT FOOT SURGERY ABDOMINAL SURGERY) Anesthesia Reaction: No Hx Neurological Disorder: No Hx Respiratory Disorders: Yes (COPD CHF BRONCOITIS) Hx Cardiac Disorders: Yes (HTN ) Hx Psychiatric Problems: Yes (DEPRESSION) Hx Miscellaneous Medical Probl: Yes (SUBSTANCE USE METH COCAIN HEROIN TOBACCO) Hx Alcohol Use: Yes Hx Substance Use: Yes Hx Tobacco Use: Yes Physical Exam Vitals Vital Signs Date Temp Pulse Resp B/P (MAP) Pulse Ox O2 O2 Flow FiO2 Time Delivery Rate 05/16/19 98.1 98 18 120/56 99 08:08 (77) Physical Exam Const: No acute distress Head: Atraumatic Eyes: Normal Conjunctiva ENT: Normal External Ears, Nose and Mouth. Neck: Full range of motion. No meningismus. Resp: Clear to auscultation bilaterally Cardio: Regular rate and rhythm, no murmurs Abd: Soft, non tender, non distended. Normal bowel sounds Skin: No petechiae or rashes Back: No midline or flank tenderness Ext: No cyanosis, or edema Neur: Awake and alert Psych: Normal Mood and Affect Procedures/MDM Patient presenting with increased anxiety without clear trigger. Given exam and history, low suspicion for acute cardiopulmonary process including dissection, ACS, or PE. Denies any acute ingestions and denies any other medical complaints at this time. Does not endorse any alcohol withdrawal symptoms. Engages with conversation. Mood and affect are congruent. Thoughts are linear and organized, and has no AH or HI. No acute need for psychiatric consultation and patient without SI or HI. Clinically no overt toxidrome, well appearing, low suspicion for ingestion given history and exam. Cautious return precautions discussed w/ full understanding Patient also endorsing tooth pain. Dental exam shows decaying teeth in his lower left mouth however no obvious focal abscess. No evidence of Amandeep angina, [employer] or paroditis. Will give patient dental resources and advised to follow-up with primary care doctor Departure Diagnosis: Primary Impression: Tooth pain Additional Impression: Anxiety Condition: Stable Patient Instructions: Dental Pain, Your Body's Response to Anxiety Referrals: REPLACED BY [facility] TONY ALEX MD May 16, 2019 08:48
== END 2019-05-16 09:54 | disposition home or self-care (01) ==
LOC: E/R 08:07
DX: K08.89 Other specified disorders of teeth and supporting structures (principal); F41.9 Anxiety disorder, unspecified
CPT/HCPCS: 99281

== ENCOUNTER 2019-06-12 11:55 | Emergency (ER) | payer BC ==
[~2019-06-12] VITALS: Ht 182.9 cm; Wt 104.5 kg
[~2019-06-12 11:55] MED LIST changes: -ACET-141 PO; +CLIN300C10 PO
[2019-06-12 12:29] VITALS: Ht 182.9 cm; Wt 104.5 kg
[2019-06-12] MEDS ORDERED: HYDROCODONE/APAP (10/325) TAB PO ONE (13:00)
[2019-06-12] MEDS ORDERED: BACITRACIN 0.5%/ZINC 28.35 GM OINT TOP ONE (13:30)
[2019-06-12 14:10] VITALS: BP 138/72; PULSE 82; RESP 18
== END 2019-06-12 14:15 | disposition home or self-care (01) ==
LOC: E/R 11:55
DX: S81.801A Unspecified open wound, right lower leg, initial encounter (principal); I11.0 Hypertensive heart disease with heart failure; I50.9 Heart failure, unspecified; J44.9 Chronic obstructive pulmonary disease, unspecified; F17.210 Nicotine dependence, cigarettes, uncomplicated; X58.XXXA Exposure to other specified factors, initial encounter; Y92.9 Unspecified place or not applicable
CPT/HCPCS: 99283; Z7610

== ENCOUNTER 2019-06-20 21:17 | Emergency (ER) | payer BC ==
[~2019-06-20] VITALS: Ht 182.9 cm; Wt 105.0 kg
[~2019-06-20 21:17] MED LIST changes: -BUME2TAB2 PO; +BUME2TAB4 PO; +CEPH-443 PO; +HYDR-4011 PO; +PRED20TA PO; +SULF1TAB31 PO
[2019-06-20 21:23] VITALS: Ht 182.9 cm; Wt 105.0 kg
[2019-06-20] MEDS ORDERED: SOD CHLORIDE 0.9% 1,000 ML IV STA (22:55)
[2019-06-20] MEDS ORDERED: morphine 4 MG/ML VIAL IV STA (22:55)
[2019-06-20] MEDS ORDERED: ONDANSETRON 4 MG INJ IV STA (22:55)
[2019-06-21 03:15] VITALS: BP 129/71; PULSE 89; RESP 16
== END 2019-06-21 03:17 | disposition home or self-care (01) ==
LOC: E/R 21:17
DX: L03.116 Cellulitis of left lower limb (principal); I10 Essential (primary) hypertension; F17.210 Nicotine dependence, cigarettes, uncomplicated; F10.920 Alcohol use, unspecified with intoxication, uncomplicated; L03.115 Cellulitis of right lower limb
CPT/HCPCS: 36415; 71045; 80053; 80307; 85025; 86305; 96374; 96375; 99285; J2270; J2405; J7030; 83605

== ENCOUNTER 2019-06-21 10:19 | Emergency (ER) | payer BC ==
[~2019-06-21] VITALS: Wt 88.6 kg
[2019-06-21 15:30] VITALS: BP 118/72; PULSE 76; RESP 14
== END 2019-06-21 15:30 | disposition home or self-care (01) ==
LOC: E/R 10:19
DX: F10.10 Alcohol abuse, uncomplicated (principal); F17.210 Nicotine dependence, cigarettes, uncomplicated; M79.9 Soft tissue disorder, unspecified; Z64.4 Discord with counselors
CPT/HCPCS: 99283

== ENCOUNTER 2019-06-23 11:22 | Emergency (ER) | payer BC ==
[~2019-06-23] VITALS: Wt 106.8 kg
[2019-06-23 11:26] VITALS: BP 156/72; PULSE 110; RESP 20
== END 2019-06-23 16:38 | disposition home or self-care (01) ==
LOC: E/R 11:22
DX: G89.29 Other chronic pain (principal); F10.10 Alcohol abuse, uncomplicated; I10 Essential (primary) hypertension; Z87.891 Personal history of nicotine dependence
CPT/HCPCS: 99283

== ENCOUNTER 2019-08-08 11:39 | Emergency (ER) | payer BC ==
[~2019-08-08] VITALS: Ht 172.7 cm; Wt 104.5 kg
[2019-08-08 11:44] VITALS: BP 138/64; PULSE 77; RESP 18; Ht 172.7 cm; Wt 104.5 kg
[2019-08-08] MEDS ORDERED: HYDROCODONE/APAP (10/325) TAB PO ONE (12:30)
== END 2019-08-08 14:08 | disposition home or self-care (01) ==
LOC: E/R 11:39
DX: G89.4 Chronic pain syndrome (principal); Z87.891 Personal history of nicotine dependence
CPT/HCPCS: 99283

== ENCOUNTER 2019-08-14 19:09 | Emergency (ER) | payer BC ==
[~2019-08-14] VITALS: Ht 182.9 cm; Wt 100.0 kg
[2019-08-14 19:18] VITALS: Ht 182.9 cm; Wt 100.0 kg
[2019-08-14] MEDS ORDERED: predniSONE 20 MG TAB PO STA (19:28)
[2019-08-14] MEDS ORDERED: ALBUTEROL 0.083% (NEB) 2.5 MG/3 ML AMP NEB STA (19:28)
[2019-08-14] MEDS ORDERED: IPRATROPIUM (NEB) 0.5 MG/2.5 ML AMP NEB STA (19:28)
[2019-08-14] MEDS ORDERED: FUROSEMIDE 20 MG TAB PO ONE (20:00)
[2019-08-14 20:47] VITALS: BP 138/87; PULSE 88; RESP 22
== END 2019-08-14 20:48 | disposition home or self-care (01) ==
LOC: E/R 19:09
DX: R06.2 Wheezing (principal); I50.9 Heart failure, unspecified; I11.0 Hypertensive heart disease with heart failure; Z87.891 Personal history of nicotine dependence
CPT/HCPCS: 71045; 94664; 99284; J7512; Z7610; 93005